=== PATIENT | male | born 1930 | race Hispanic/Latino ===

== ENCOUNTER 2018-04-13 18:56 | Observation (INO) | payer OTHER, BC ==
--- OUTSIDE RECORDS SUMMARY | 2018-04-13 18:59 | XMS REPORT | Clinical Summary ---
:1930 Author Organization [facility] Address [address] [place] [address] Care Team Providers Name Role Phone Asked, No Pcp Primary Care Provider Unavailable Allergies No Known Allergies Current Medications Prescription Sig. Disp. Refills Start Date End Date Status omeprazole 40 mg daily. 07/18/2017 Active (PriLOSEC) 40 MG capsule eszopiclone 2 mg nightly. 08/28/2017 Active (LUNESTA) 2 MG tablet amLODIPine 5 mg every 07/07/2017 Active (NORVASC) 5 mg morning. tablet psyllium seed, with Take by mouth Active dextrose, (FIBER nightly. ORAL) tamsulosin (FLOMAX) Take 0.4 mg Active 0.4 mg capsule by mouth daily. aspirin (ECOTRIN) Take 1 tablet 90 tablet 4 01/15/2018 Active 81 MG enteric (81 mg total) coated tablet by mouth daily. valsartan-hydrochlo 1 tablet 07/07/2017 12/12/2017 Discontinued rothiazide every (DIOVAN-HCT) morning. 80-12.5 mg per tablet aspirin (ECOTRIN) Take 325 mg 01/15/2018 Discontinued 325 MG enteric by mouth coated tablet daily. tamsulosin (FLOMAX) Take 1 30 capsule 0 12/12/2017 01/11/2018 0.4 mg capsule (0.4 capsule,extended mg total) by release 24hr mouth daily for 30 days. clopidogrel Take 1 tablet 30 tablet 0 12/12/2017 01/11/2018 (PLAVIX) 75 mg (75 mg total) tablet by mouth daily for 30 days. clopidogrel Take 75 mg by 01/15/2018 Discontinued (PLAVIX) 75 mg mouth daily. tablet Active Problems Problem Noted Date Nonrheumatic aortic valve stenosis 10/09/2017 Overview: Added automatically from request for surgery [id number] Encounters Date Type Specialty Care Team Description 01/15/2018 Office Visit Cardiology Stepan Wilde Aortic valve stenosis, etiology of cardiac valve disease unspecified (Primary Dx); MD Elliot Status post transcatheter aortic valve replacement (TAVR) using bioprosthesis 12/12/2017 Orders Only Cardiology Lucie, Aortic valve disorder (Primary Dx); SARAH Goodman S/P TAVR (transcatheter aortic valve replacement) 12/12/2017 Telephone Cardiovascular Nataly Elder RN 12/10/2017 Hospital Encounter Cardiovascular Narendra Danielson Nonrheumatic aortic valve stenosis; - MD Yandel Aortic valve stenosis, etiology of cardiac valve disease unspecified 12/12/2017 12/10/2017 Anesthesia Event Cardiothoracic Jaime, Surgery Wendy Serrano MD 12/10/2017 Procedure Pass Cardiothoracic Surgery 12/10/2017 Surgery Cardiothoracic Jagjit Narendra TRANSCATHETER Surgery MD Yandel AORTIC VALVE REPLACEMENT, COMMERCIAL 12/05/2017 Hospital Encounter Radiology Narendra Danielson Nonrheumatic aortic valve stenosis; MD Yandel Pre-op evaluation 12/05/2017 Pre-Admit Testing Pre-Admission Narendra Danielson Nonrheumatic aortic valve stenosis; Appointment Testing MD Yandel Pre-op evaluation; Abnormal finding of blood chemistry ; Protein-calorie malnutrition, unspecified severity ; Abnormal coagulation profile 12/05/2017 Documentation Cardiovascular Nataly Elder RN KCCQ and Frailty Test 11/26/2017 Orders Only Nataly Gasca RN Nonrheumatic aortic valve stenosis (Primary Dx); Pre-op evaluation; Abnormal finding of blood chemistry ; Protein-calorie malnutrition, unspecified severity ; Abnormal coagulation profile 10/09/2017 Orders Only Nataly Gasca RN Nonrheumatic aortic valve stenosis (Primary Dx) 10/06/2017 Hospital Encounter Procedural Jaclyn Tate, Aortic valve stenosis, etiology of cardiac valve disease unspecified; Cardiology Coronary artery disease with angina pectoris, unspecified vessel or lesion type, unspecified whether tetlin or transplanted heart 10/06/2017 Procedure Pass Procedural Cardiology 10/06/2017 Surgery Procedural AttJaclyn biswas, Cv left heart cath Cardiology w lv gram cors [74065 (CPT)] 09/25/2017 Office Visit Cardiovascular Narendra Danielson Nonrheumatic aortic MD Yandel valve stenosis (Primary Dx) 09/25/2017 Hospital Encounter Pulmonology Stepan Wilde Aortic valve stenosis, etiology of cardiac valve disease unspecified; MD Elliot Carotid bruit, unspecified laterality; SOB (shortness of breath) 09/25/2017 Hospital Encounter Procedural Stepan Wilde Aortic valve Cardiology MD Elliot stenosis, etiology of cardiac valve disease unspecified 09/25/2017 Hospital Encounter Procedural Stepan Wilde Aortic valve stenosis, etiology of cardiac valve disease unspecified; Cardiology MD Elliot Carotid bruit, unspecified laterality; SOB (shortness of breath) 09/25/2017 Ancillary Orders Cardiology Stepan Wilde Aortic valve stenosis , etiology of cardiac valve disease unspecified; MD Elliot Carotid bruit, unspecified laterality; SOB (shortness of breath) 09/19/2017 Orders Only Cardiology Corby Wong, Aortic valve stenosis, etiology of cardiac valve disease unspecified (Primary Dx); RN Carotid bruit, unspecified laterality; SOB (shortness of breath) 09/19/2017 Documentation Cardiology Ros Quiñonez RN 09/19/2017 Orders Only Cardiology Khang Aortic norris Sommer RN stenosis, etiology of cardiac valve disease unspecified (Primary Dx) 09/18/2017 Office Visit Cardiology Stepan Wilde Essential hypertension ( Primary Dx); MD Elliot Coronary artery disease involving tetlin coronary artery of tetlin heart with angina pectoris; Aortic valve stenosis, etiology of cardiac valve disease unspecified 08/07/2017 Hospital Encounter Procedural Jaclyn Tate SOB (shortness of breath); Cardiology Aortic valve stenosis with insufficiency, etiology of cardiac valve disease unspecified 08/05/2017 Transcribe Orders Procedural Jaclyn Tate SOB (shortness of breath) (Primary Dx); Cardiology Aortic valve stenosis with insufficiency, etiology of cardiac valve disease unspecified after 04/12/2017 Family History Medical History Relation Name Comments Heart disease Brother Heart disease Father Hypertension Father Alzheimer's disease Mother Other Sister 'brain stem problems' Relation Name Status Comments Brother (Age 58) Father (Age 68) Mother (Age 93) Sister (Age 60) Social History Tobacco Use Types Packs/Day Years Used Date Former Smoker 3 35 Quit: 1973 Smokeless Tobacco: Never Used Alcohol Use Drinks/Week oz/Week Comments Yes ocassional Sex Assigned at Date Recorded Not on file Last Filed Vital Signs Vital Sign Reading Time Taken Blood Pressure 174/86 01/15/2018 1:40 PM CDT Pulse 61 01/15/2018 1:35 PM CDT Temperature 36.5 C (97.7 F) 12/12/2017 7:46 AM CDT Respiratory Rate 14 12/12/2017 7:46 AM CDT Oxygen Saturation 99% 01/15/2018 9:36 AM CDT Inhaled Oxygen Concentration - - Weight 62.1 kg (137 lb) 01/15/2018 1:33 PM CDT Height 162.6 cm (5' 4") 01/15/2018 1:33 PM CDT Body Mass Index 23.52 01/15/2018 1:33 PM CDT Plan of Treatment Date Type Specialty Care Team Description 01/19/2019 Office Visit Cardiology Stepan Wilde MD [address] [address] Health Maintenance Due Date Last Done Comments SHINGRIX VACCINE (#1) 12/16/1981 ZOSTER VACCINE 1991 PNEUMOCOCCAL POLYSACCHARIDE VACCINE AGE 65 AND OVER 12/16/1996 PNEUMOCOCCAL-13 12/16/1996 INFLUENZA VACCINE 01/28/2018 Implants Implanted Type Area Oil Sprayer Device Expiration Model / Identifier Date Serial / Lot 7fr X 58cm Isoflex Optim Passive-Fixation Lead, Bipolar, Straight, Is-1 - [id number] Cardiac Pacing N/A: 08/27/2020 / Implanted: 12/10/2017 (Quantity not on file) Leads or N/A [id number] / Electrodes or [id number] Accessories Evolut Pro 29'Valve - [id number] - [id number] Cardiovascular N/A: MEDTRONIC 10/06/2019 EVOLUTPRO 29 US / Implanted: Qty: 1 on 12/10/2017 by Narendra Danielson MD Implants N/A COREVALVE [id number] / [id number] System Clsr Sut Meditd 6fr Perclose Proglide - [id number] Surgical N/A: GARCIA [id number] / Implanted: 12/10/2017 (Quantity not on file) Implants; N/A VASCULAR / Expanders; DEVICES Extenders; Surgical Wires Catheter Ptv True Dilat 110x4.5cm 24mm - [id number] Surgical N/A: BARD [id number] / Implanted: Qty: 2 on 12/10/2017 by Narendra Danielson MD Implants; N/A PERIPHERAL / Expanders; VASCULAR Extenders; Surgical Wires System Clsr Sut Meditd 6fr Perclose Proglide - [id number] Surgical N/A: GARCIA [id number] / Implanted: 12/10/2017 (Quantity not on file) Implants; N/A VASCULAR / Expanders; DEVICES Extenders; Surgical Wires [place] Perph Vasclr Ptfe 1.2x10cm 1.65mm - [id number] Vascular Graft N/A: BARD 09/24/2022 [id number] / Implanted: 12/10/2017 (Quantity not on file) N/A PERIPHERAL / VASCULAR [id number] Catheter Retail Account Specialist Van 5fr 75cm 4x40mm 0.035in H-Pres [place] [id number] / Implanted: Qty: 1 on 12/10/2017 by Narendra Danielson MD SCIENTIFIC/ PER / IPHERAL VASCULAR ([email or web address]) Procedures Procedure Name Priority Date/Time Associated Diagnosis Comments COMPREHENSIVE Routine 01/15/2018 2:10 Status post Results for this METABOLIC PANEL PM CDT transcatheter aortic procedure are in valve replacement the results (TAVR) using section. bioprosthesis CBC WITH PLATELET AND Routine 01/15/2018 2:10 Status post Results for this DIFFERENTIAL PM CDT transcatheter aortic procedure are in valve replacement the results (TAVR) using section. bioprosthesis ECG 12-LEAD Routine 01/15/2018 1:42 Aortic valve Results for this PM CDT stenosis, etiology of procedure are in cardiac valve disease the results unspecified section. ECHOCARDIOGRAM 2D Routine 01/15/2018 10:00 Aortic valve disorder Results for this COMPLETE W MMODE AM CDT S/P TAVR procedure are in SPECTRAL COLOR DOPPLER (transcatheter aortic the results (30701) valve replacement) section. HC COMPLETE BLD COUNT Routine 12/12/2017 4:30 Results for this W/AUTO DIFF AM CDT procedure are in the results section. ZZESTIMATED GFR Routine 12/12/2017 4:00 Results for this AM CDT procedure are in the results section. LIPID PANEL Routine 12/12/2017 4:00 Results for this AM CDT procedure are in the results section. BASIC METABOLIC PANEL Routine 12/12/2017 4:00 Results for this AM CDT procedure are in the results section. US RENAL Routine 12/11/2017 10:10 Results for this PM CDT procedure are in the results section. XR CHEST 1 VW PORTABLE Routine 12/11/2017 5:30 Results for this PM CDT procedure are in the results section. ECG PRE/POST OP Routine 12/11/2017 10:20 Results for this AM CDT procedure are in the results section. ECHOCARDIOGRAM 2D Routine 12/11/2017 9:35 Results for this COMPLETE W MMODE AM CDT procedure are in SPECTRAL COLOR DOPPLER the results (90263) section. ZZESTIMATED GFR Routine 12/11/2017 5:32 Results for this AM CDT procedure are in the results section. LIPID PANEL Routine 12/11/2017 5:32 Results for this AM CDT procedure are in the results section. HC COMPLETE BLD COUNT Routine 12/11/2017 5:32 Results for this W/AUTO DIFF AM CDT procedure are in the results section. BASIC METABOLIC PANEL Routine 12/11/2017 5:32 Results for this AM CDT procedure are in the results section. ECG PRE/POST OP Routine 12/10/2017 8:06 Results for this PM CDT procedure are in the results section. ECHOCARDIOGRAM 2D Routine 12/10/2017 4:31 Aortic valve Results for this COMPLETE W MMODE PM CDT stenosis, etiology of procedure are in SPECTRAL COLOR DOPPLER cardiac valve disease the results (30496) unspecified section. CV AORTIC Routine 12/10/2017 3:35 Nonrheumatic aortic Results for this VALVULOPLASTY PM CDT valve stenosis procedure are in the results section. CV AORTOGRAM ABDOMINAL Routine 12/10/2017 3:35 Nonrheumatic aortic Results for this AORTA PM CDT valve stenosis procedure are in the results section. CV LEFT HEART CATH Routine 12/10/2017 3:35 Nonrheumatic aortic Results for this PM CDT valve stenosis procedure are in the results section. CV ANGIOGRAM THORACIC Routine 12/10/2017 3:35 Nonrheumatic aortic Results for this AORTA PM CDT valve stenosis procedure are in the results section. EP TEMPORARY LEAD Routine 12/10/2017 3:35 Nonrheumatic aortic Results for this INSERTION PM CDT valve stenosis procedure are in the results section. CV TAVR FOR CARDIOLOGY Routine 12/10/2017 3:35 Nonrheumatic aortic Results for this PM CDT valve stenosis procedure are in the results section. ARTERIAL BLOOD GAS, STAT 12/10/2017 2:25 Results for this CORRECTED PM CDT procedure are in the results section. SODIUM LEVEL, SYRINGE STAT 12/10/2017 2:25 Results for this PM CDT procedure are in the results section. IONIZED CALCIUM, STAT 12/10/2017 2:25 Results for this ARTERIAL PM CDT procedure are in the results section. POTASSIUM, SYRINGE STAT 12/10/2017 2:25 Results for this PM CDT procedure are in the results section. HEMOGLOBIN, SYRINGE STAT 12/10/2017 2:25 Results for this PM CDT procedure are in the results section. GLUCOSE LEVEL, SYRINGE STAT 12/10/2017 2:25 Results for this PM CDT procedure are in the results section. XR CHEST 2 VW Routine 12/05/2017 12:01 Nonrheumatic aortic Results for this PM CDT valve stenosis procedure are in Pre-op evaluation the results section. URINALYSIS SCREEN AND Routine 12/05/2017 11:10 Nonrheumatic aortic Results for this MICROSCOPY, WITH AM CDT valve stenosis procedure are in REFLEX TO CULTURE Pre-op evaluation the results section. B NATRIURETIC PEPTIDE Routine 12/05/2017 11:10 Nonrheumatic aortic Results for this AM CDT valve stenosis procedure are in Pre-op evaluation the results section. URINE CULTURE Routine 12/05/2017 11:10 Results for this AM CDT procedure are in the results section. PREPARE RBC Routine 12/05/2017 10:51 Results for this AM CDT procedure are in the results section. ZZESTIMATED GFR Routine 12/05/2017 10:51 Results for this AM CDT procedure are in the results section. TYPE AND SCREEN Routine 12/05/2017 10:51 Nonrheumatic aortic Results for this AM CDT valve stenosis procedure are in Pre-op evaluation the results section. HEMOGLOBIN A1C Routine 12/05/2017 10:51 Abnormal finding of Results for this AM CDT blood chemistry procedure are in Nonrheumatic aortic the results valve stenosis section. Pre-op evaluation PARTIAL THROMBOPLASTIN Routine 12/05/2017 10:51 Abnormal coagulation Results for this TIME (PTT) AM CDT profile procedure are in Nonrheumatic aortic the results valve stenosis section. Pre-op evaluation PROTHROMBIN TIME WITH Routine 12/05/2017 10:51 Nonrheumatic aortic Results for this INR AM CDT valve stenosis procedure are in Pre-op evaluation the results section. COMPREHENSIVE Routine 12/05/2017 10:51 Nonrheumatic aortic Results for this METABOLIC PANEL AM CDT valve stenosis procedure are in Pre-op evaluation the results section. HC COMPLETE BLD COUNT Routine 12/05/2017 10:51 Nonrheumatic aortic Results for this W/AUTO DIFF AM CDT valve stenosis procedure are in Pre-op evaluation the results section. VITAMIN B12 LEVEL Routine 12/05/2017 10:38 Protein-calorie Results for this AM CDT malnutrition, procedure are in unspecified severity the results Nonrheumatic aortic section. valve stenosis Pre-op evaluation TOTAL IRON BINDING Routine 12/05/2017 10:38 Abnormal finding of Results for this CAPACITY AM CDT blood chemistry procedure are in Nonrheumatic aortic the results valve stenosis section. Pre-op evaluation LIPID PANEL Routine 12/05/2017 10:38 Abnormal finding of Results for this AM CDT blood chemistry procedure are in Nonrheumatic aortic the results valve stenosis section. Pre-op evaluation FOLATE LEVEL Routine 12/05/2017 10:38 Protein-calorie Results for this AM CDT malnutrition, procedure are in unspecified severity the results Nonrheumatic aortic section. valve stenosis Pre-op evaluation FERRITIN LEVEL Routine 12/05/2017 10:38 Abnormal finding of Results for this AM CDT blood chemistry procedure are in Nonrheumatic aortic the results valve stenosis section. Pre-op evaluation CV LEFT HEART CATH LV Routine 10/06/2017 5:42 Aortic valve Results for this GRAM WITH CORS PM CDT stenosis, etiology of procedure are in cardiac valve disease the results unspecified section. Coronary artery disease with angina pectoris, unspecified vessel or lesion type, unspecified whether tetlin or transplanted heart HC COMPLETE BLD COUNT STAT 10/06/2017 1:00 Results for this W/AUTO DIFF PM CDT procedure are in the results section. ECG 12-LEAD STAT 10/06/2017 12:41 Results for this PM CDT procedure are in the results section. ZZESTIMATED GFR STAT 10/06/2017 12:34 Results for this PM CDT procedure are in the results section. BASIC METABOLIC PANEL STAT 10/06/2017 12:34 Results for this PM CDT procedure are in the results section. CV CTA TAVR WORKUP Routine 09/25/2017 1:42 Aortic valve Results for this (CTA CORONARY,CTA PM CDT stenosis, etiology of procedure are in THORACIC AORTA,CTA cardiac valve disease the results ABDOMEN PELVIS) W unspecified section. CONTRAST ESTIMATED GFR Routine 09/25/2017 1:06 Results for this PM CDT procedure are in the results section. POC CREATININE Routine 09/25/2017 1:06 Results for this PM CDT procedure are in the results section. US CAROTID DUPLEX Routine 09/25/2017 11:08 Aortic valve Results for this BILATERAL AM CDT stenosis, etiology of procedure are in cardiac valve disease the results unspecified section. Carotid bruit, unspecified laterality SOB (shortness of breath) ECHOCARDIOGRAM 2D Routine 09/18/2017 4:26 Essential Results for this COMPLETE W MMODE PM CDT hypertension procedure are in SPECTRAL COLOR DOPPLER Coronary artery the results (65754) disease involving section. tetlin coronary artery of tetlin heart with angina pectoris Aortic valve stenosis, etiology of cardiac valve disease unspecified ECG 12-LEAD Routine 09/18/2017 2:39 Essential Results for this PM CDT hypertension procedure are in the results section. 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 etiology of cardiac valve disease unspecified POC HEMATOCRIT Routine 08/07/2017 12:51 Results for this PM COMPONENT ASSEMBLER SUPERVISOR procedure are in the results section. ZZESTIMATED GFR Routine 08/07/2017 12:51 Results for this PM COMPONENT ASSEMBLER SUPERVISOR procedure are in the results section. CREATININE LEVEL Routine 08/07/2017 12:51 Results for this PM COMPONENT ASSEMBLER SUPERVISOR procedure are in the results section. after 04/12/2017 Results CBC with platelet and differential (01/15/2018 2:10 PM)Only the most recent of5 resultswithin the time period is included. WBC 6.7 3.8 - 10.8 Thousand/uL [facility] [place] RBC 4.52 4.20 - 5.80 Million/uL [facility] [place] HGB 13.7 13.2 - 17.1 g/dL [facility] [place] HCT 39.8 38.5 - 50.0 % [facility] [place] MCV 88.1 80.0 - 100.0 fL [facility] [place] MCH 30.3 27.0 - 33.0 pg [facility] [place] MCHC 34.4 32.0 - 36.0 g/dL [facility] [place] RDW 13.2 11.0 - 15.0 % [facility] [place] Platelet count 222 140 - 400 Thousand/uL [facility] [place] MPV 10.9 7.5 - 12.5 fL [facility] [place] Neutrophils, absolute 4,449 1,500 - 7,800 cells/uL [facility] [place] Lymphocytes, absolute 1,441 850 - 3,900 cells/uL [facility] [place] Monocytes, absolute 509 200 - 950 cells/uL [facility] [place] Eosinophils, absolute 221 15 - 500 cells/uL [facility] [place] Basophils, absolute 80 0 - 200 cells/uL [facility] [place] Neutrophils 66.4 % [facility] [place] Lymphocytes 21.5 % [facility] [place] Monocytes 7.6 % [facility] [place] Eosinophils 3.3 % [facility] [place] Basophils + RC 1.2 % [facility] [place] Specimen Blood Narrative Performed At FASTING:NO [facility] FASTING: NO Other Results Text Performing Organization Information: Site ID: [id number] Name: [facility] Address: [address] [place] [id number] Director: Isabela Loredo Performing Organization Address City/State/Zipcode Phone Number [employer] [place] [phone] Comprehensive metabolic panel (01/15/2018 2:10 PM)Only the most recent of2 resultswithin the time period is included. Glucose 78 65 - 139 mg/dL [facility] Comment: [place] Non-fasting reference interval BUN, whole blood 12 7 - 25 mg/dL Monitoring Division [facility] Creatinine 0.89 0.70 - 1.11 [facility] Comment: mg/dL [place] For patients >49 years of age, the reference limit for Creatinine is approximately 13% higher for people identified as -Citizen Of [place]. EGFR Non-Afr. Citizen Of [place] 77 > OR=60 [facility] mL/min/1.73m2 [place] EGFR 90 > OR=60 [facility] mL/min/1.73m2 [place] BUN/creatinine ratio NOT APPLICABLE 6 - 22 (calc) [facility] [place] Sodium 136 135 - 146 mmol/L [facility] [place] Potassium 4.0 3.5 - 5.3 mmol/L [facility] [place] Chloride 103 98 - 110 mmol/L [facility] [place] CO2 28 20 - 31 mmol/L [facility] Calcium 9.3 8.6 - 10.3 mg/dL [facility] [place] Protein 7.2 6.1 - 8.1 g/dL [facility] [place] Albumin, S 4.1 3.6 - 5.1 g/dL [facility] [place] Globulin, total 3.1 1.9 - 3.7 g/dL [facility] (calc) [place] Albumin/globulin ratio 1.3 1.0 - 2.5 (calc) [facility] [place] Total bilirubin 0.4 0.2 - 1.2 mg/dL [facility] [place] Alkaline phosphatase 85 40 - 115 U/L [facility] [place] AST 17 10 - 35 U/L [facility] ALT 13 9 - 46 U/L [facility] [place] Specimen Blood Narrative Performed At FASTING:NO [facility] FASTING: NO Other Results Text Performing Organization Information: Site ID: [id number] Name: [facility] Address: [address] [place] [id number] Director: Isabela Loredo Performing Organization Address [facility] Phone Number [facility] Monitoring Division [address] [address] ECG 12 lead (01/15/2018 1:42 PM)Only the most recent of3 resultswithin the time period is included. Ventricular rate 59 [facility] MUSE Atrial rate 59 [facility] MUSE CO interval 174 [facility]USE QRSD interval 90 [facility] QT interval 428 [facility] QTC interval 423 [facility] P axis 1 54 [facility] QRS axis 1 -14 [facility] T wave axis 47 H MUSE EKG impression Sinus bradycardia with premature atrial complexes-RSR' or QR pattern in V1 suggests right ventricular conduction delay-Borderline ECG-In automated comparison with ECG of 11-DEC-2017 10:20,-premature atr [facility] MUSE ial complexes are now present- Performing Organization Address [facility] Hospitalcode Phone Number [facility] [employer] [address] [place] [address] Echocardiogram complete w contrast and 3D if needed (01/15/2018 10:00 AM) Narrative Performed At [facility] Echocardiography Report Pat.Name:Kurtis HARDY.ID:[id number] .Date: 01/15/2018 Refer.MD:STEPAN WILDE MD Exam Time: 9:29:00 QIANtlyla Type:Routine Echo Height:64inWeight: 135lb BSA: 1.66 m2 DOBAge:1930,87Y Sex: MALEBP:169/77 HR:60 bpm Sonogrphr: Kumuthavally Veerasamy, RDCS, RVS Pat. Stat.:OutpatientRoom:[facility] TapeVol: MDCA, ICD - 9: I35.9 Study Status:Revised Echo Event ID:[id number] Order ID:[id number] Reason for Study:Aortic Valve Disorders, S/P TAVR, Post TAVR Commercial History / Clinical:Valvular Heart Disease; Aortic Stenosis Procedures:2D Echo, Colorflow Doppler, 3D Echo Race: SUMMARY: LV EF is hyperdynamic. Estimated EF is >70%. s/p TAVR with a 29mm Medtronic EvolutPro valve with mild para-valvular regurgitation (2 jets seen on apical 3-chamber view). There is normal prosthetic velocities and gradients Mild mitral and tricuspid reguegitation Diastolic dysfunction Grade II (Moderate): Impaired relaxation with elevated LV filling pressures. Estimated PA systolic pressure is 32 mmHg, assuming a mean RAP of 5 mmHg. FINDINGS: LV: LV size is normal. Concentric left ventricular remodeling. LVEF is hyperdynamic. Overall wall motion is hyperdynamic. EstimatedEF is >70%. RV: RV size is normal. RV systolic function is normal. LA: LA volume is moderately enlarged. RA: RA size is normal. AO: Aortic root diameter is normal. JAIRO: No pericardial effusion. IAS:Interatrial septum is thickened consistent with lipomatous hypertrophy. AV: s/p TAVR with a 29mm Medtronic EvolutPro valve that is well-seatedMild paravalvular aortic regurgitation - 2 jets bestseen on apical 3-chamber view - Normal prosthetic valvevelocity and gradient. Transcatheter AV Doppler velocityindex is 0.8 (normal >0.50). MV: Mild thickening and calcification of mitral leaflets. Mild mitralannular calcification. Mild mitral regurgitation. PV: No structural PV abnormalities noted. Mild pulmonic regurgitation. TV: No structural TV abnormalities noted. Mild tricuspid regurgitation Maurer: Diastolic dysfunction Grade II (Moderate): Impaired relaxationwith elevated LV filling pressures. Other:Estimated PA systolic pressure is 32 mmHg, assuming a mean RAPof 5 mmHg. MEASUREMENTS: 2D Parasternal [place] LVOT 1.9 cmLA Ds4.1 cm LVIDd4.2 cmIndex2.5 cm/m Ao An2.4 cm LVIDs2.2 cmAo Rtd 2.7 cm Index1.6 cm/m LV%fs 47.6 % LV Apes750 g IVSd 1.1 cmLVM Index 88.6 g/m2 LVPWd1 cmRWT0.5 LA Volume LA Vol59.2 trGwddq85.7 ml/m LA Sng Plane LA Area 21.4 cm2 LA Vol69.5 ml Index41.9 ml/m LA LngAx 5.4 cm DOPPLER AV For Flow/AUGIE AV pkVel 170.5 cm/Adam AC/ET 0.2 AV mnVel97.9 cm/Adam TVI33.7 cm AV pkPG 11.6 mmHgAVpkAcRt 3398.9 cm/s2 AV Mean G4.8 mmHgAV WfHc501.3 cm/s2 AV AC 74 msecAV Area2.4 cm2 AV ET344 msec LVOT For Flow LVOT Area2.8 cm2 LVOT SV 79.5 ml TZYWstLvh935.6 cm/sHR54.7 bpm HSYFmtQX99.6 mmHgLVOT CO4.4 l/min LVOTmnPG 3.4 mmHgLVOT CI2.6 l/m/m2 LVOT TVI28.1 cm Signed 01/19/2018 8:21:10 PM Jcalyn Quezada MD Revised Procedure Note Interface, Radiology Results In - 01/19/2018 8:21 PM CDT [facility] Echocardiography Report Pat.Name: JUSTICE HARDY Pat.ID: [id number] St.Date: 01/15/2018 Refer.MD: STEPAN WILDE MD Exam Time: 9:29:00 AM Study Type:Routine Echo Height: 64in Weight: 135lb BSA: 1.66 m2 Age: 7 1930,87Y Sex: MALE BP: 169/77 HR: 60 bpm Sonogrphr: Dee Morales, RDCS, RVS Pat. Stat.:Outpatient Room: [address] Vol: [facility], ICD - 9: I35.9 Study Status:Revised Echo Event ID:[id number] Order ID: [id number] Reason for Study:Aortic Valve Disorders, S/P TAVR, Post TAVR Commercial History / Clinical:Valvular Heart Disease; Aortic Stenosis Procedures:2D Echo, Colorflow Doppler, 3D Echo Race: SUMMARY: LV EF is hyperdynamic. Estimated EF is >70%. s/p TAVR with a 29mm Medtronic EvolutPro valve with mild para-valvular regurgitation (2 jets seen on apical 3-chamber view). There is normal prosthetic velocities and gradients Mild mitral and tricuspid reguegitation Diastolic dysfunction Grade II (Moderate): Impaired relaxation with elevated LV filling pressures. Estimated PA systolic pressure is 32 mmHg, assuming a mean RAP of 5 mmHg. FINDINGS: LV: LV size is normal. Concentric left ventricular remodeling. LV EF is hyperdynamic. Overall wall motion is hyperdynamic. Estimated EF is >70%. RV: RV size is normal. RV systolic function is normal. LA: LA volume is moderately enlarged. RA: RA size is normal. AO: Aortic root diameter is normal. JAIRO: No pericardial effusion. IAS: Interatrial septum is thickened consistent with lipomatous hypertrophy. AV: s/p TAVR with a 29mm Medtronic EvolutPro valve that is well-seated Mild paravalvular aortic regurgitation - 2 jets best seen on apical 3-chamber view - Normal prosthetic valve velocity and gradient. Transcatheter AV Doppler velocity index is 0.8 (normal >0.50). MV: Mild thickening and calcification of mitral leaflets. Mild mitral annular calcification. Mild mitral regurgitation. PV: No structural PV abnormalities noted. Mild pulmonic regurgitation. TV: No structural TV abnormalities noted. Mild tricuspid regurgitation Maurer: Diastolic dysfunction Grade II (Moderate): Impaired relaxation with elevated LV filling pressures. Other: Estimated PA systolic pressure is 32 mmHg, assuming a mean RAP of 5 mmHg. MEASUREMENTS: 2D Parasternal [place] LVOT 1.9 cm LA Ds 4.1 cm LVIDd 4.2 cm Index 2.5 cm/m Ao An 2.4 cm LVIDs 2.2 cm Ao Rtd 2.7 cm Index 1.6 cm/m LV%fs 47.6 % LV Mass 147 g IVSd 1.1 cm LVM Index 88.6 g/m2 LVPWd 1 cm RWT 0.5 LA Volume LA Vol 59.2 ml Index 35.7 ml/m LA Sng Plane LA Area 21.4 cm2 LA Vol 69.5 ml Index 41.9 ml/m LA LngAx 5.4 cm DOPPLER AV For Flow/AUGIE AV pkVel 170.5 cm/s AV AC/ET 0.2 AV mnVel 97.9 cm/s AV TVI 33.7 cm AV pkPG 11.6 mmHg AVpkAcRt 3398.9 cm/s2 AV Mean G 4.8 mmHg AV DeRt 495.3 cm/s2 AV AC 74 msec AV Area 2.4 cm2 AV ET 344 msec LVOT For Flow LVOT Area 2.8 cm2 LVOT SV 79.5 ml LVOTpkVel 162.6 cm/s HR 54.7 bpm LVOTpkPG 10.6 mmHg LVOT CO 4.4 l/min LVOTmnPG 3.4 mmHg LVOT CI 2.6 l/m/m2 LVOT TVI 28.1 cm Signed 01/19/2018 8:21:10 PM Jaclyn Quezada MD Revised Performing Organization Address City/[facility] Hospitalcode Phone Number [facility] [address] [place] [address] Estimated GFR (12/12/2017 4:00 AM)Only the most recent of5 resultswithin the time period is included. GFR Non Af Amer 57 (A) mL/min/1.73 m2 [facility] DEPARTMENT OF PATHOLOGY AND GENOMIC MEDICINE GFR Af Amer 70 mL/min/1.73 m2 [facility] DEPARTMENT OF Comment: PATHOLOGY AND GENOMIC Chronic kidney disease: <60 mL/min/1.73m2 MEDICINE Kidney failure: <15 mL/min/1.73m2 The estimated GFR is calculated from the IDMS-traceable Modification of Diet in Renal Disease Equation. The accuracy of the calculation is poor when the creatinine is normal. Calculated values >90 mL/min/1.73m2 are not reported. This equation has not been validated in children (<18 years), women, the elderly (>70 years), or ethnic groups other than Caucasians and Americans. Specimen Plasma specimen Performing Organization Address City/[facility] Hospitalcode Phone Number [facility] DEPARTMENT OF PATHOLOGY AND [address] [place] [address] [employer] MEDICINE Lipid panel (12/12/2017 4:00 AM)Only the most recent of3 resultswithin the time period is included. Cholesterol 177 <200 mg/dL [facility] DEPARTMENT OF PATHOLOGY AND GENOMIC MEDICINE Triglycerides 77 <150 mg/dL [facility] DEPARTMENT OF PATHOLOGY AND GENOMIC MEDICINE HDL cholesterol 50 >40 mg/dL [facility] DEPARTMENT OF PATHOLOGY AND GENOMIC MEDICINE LDL cholesterol 118 (H)Comment: Result <100 mg/dL [facility] DEPARTMENT OF obtained by direct LDL PATHOLOGY AND GENOMIC measurement MEDICINE Lipid panel interpretation SeeBelow [facility] DEPARTMENT OF Comment: PATHOLOGY AND GENOMIC Total Cholesterol (mg/dL) MEDICINE <200 Desirable 885-156Aytlspyloi-tkhr >=240High Triglycerides (mg/dL) <150 Normal 644-597Ifhvhjcxov-syjd 200-499High >=500Very high HDL Cholesterol (mg/dL) <40Low (male) <40Low (female) LDL Cholesterol (mg/dL) <100 Optimal 100-129Near or above optimal 328-334Yegqnjhbnu-ijlj 160-189High >=190Very high Risk Catergories that modify LDL goals. Risk CatergoriesLDL goal (mg/dL) CHD and CHD risk equivalent<100 (10-year risk >20%) Multiple (2+) risk factors <130 (10-year risk=<20%) 0-1 risk factors <160 (<10-year risk) Defining levels of lipids in metabolic syndrome Triglycerides>=150 mg/dL HDL Cholesterol Men<40 mg/dL Women<40 mg/dL Non-HDL cholesterol is a second target for therapy in persons with high triglycerides (>=200 mg/dL) Specimen Plasma specimen Performing Organization Address City/State/Zipcode Phone Number [facility] DEPARTMENT OF PATHOLOGY [facility] [address] [place] [address] GENOMIC MEDICINE Basic metabolic panel (12/12/2017 4:00 AM)Only the most recent of3 resultswithin the time period is included. Sodium 133 (L) 135 - 148 mEq/L [facility] DEPARTMENT OF PATHOLOGY AND GENOMIC MEDICINE Potassium 3.6 3.5 - 5.0 mEq/L [facility] DEPARTMENT OF PATHOLOGY AND GENOMIC MEDICINE Chloride 99 98 - 112 mEq/L [facility] DEPARTMENT OF PATHOLOGY AND GENOMIC MEDICINE CO2 21 (L) 24 - 31 mEq/L [facility] DEPARTMENT OF PATHOLOGY AND GENOMIC MEDICINE Anion gap 13@ANIO 7 - 15 mEq/L [facility] DEPARTMENT OF PATHOLOGY AND GENOMIC MEDICINE BUN 18 8 - 23 mg/dL [facility] DEPARTMENT OF PATHOLOGY AND GENOMIC MEDICINE Creatinine 1.2 0.7 - 1.2 mg/dL [facility] DEPARTMENT OF PATHOLOGY AND GENOMIC MEDICINE Glucose 120 (H) 65 - 99 mg/dL [facility] DEPARTMENT OF PATHOLOGY AND GENOMIC MEDICINE Calcium 9.1 8.8 - 10.2 mg/dL [facility] DEPARTMENT OF PATHOLOGY AND GENOMIC MEDICINE Specimen Plasma specimen Performing Organization Address City/[facility]/Zipcode Phone Number [facility] DEPARTMENT OF PATHOLOGY AND [address] [place] [address] GENOMIC MEDICINE US Renal (12/11/2017 10:10 PM) Narrative Performed At EXAMINATION:US RENAL [facility] CLINICAL HISTORY:Examine for possible masses COMPARISON:None. TECHNIQUE:Ultrasound evaluation of the kidneys and bladder. IMPRESSION: 1.The right kidney measures 9.4 x 3.9 x 4.6 cm.The left kidney measures 11.2 x 4.1 x 5.1 cm.Normal renal cortical echogenicity. 2.A right renal cyst is 6.2 cm. A smaller right renal cyst is 4.0 cm. Both contain septations. The larger cyst contains some irregular septations. Because of this, I suggest further evaluation with CT with contrast and renal focus. A left renal cyst is 5.8 x 3.4. It contains a septation. A small left renal cyst is also seen. 3.The bladder is not distended. [facility]-[id number] Procedure Note Interface, Radiology Results Incoming - 12/11/2017 10:35 PM CDT EXAMINATION: US RENAL CLINICAL HISTORY: Examine for possible masses COMPARISON: None. TECHNIQUE: Ultrasound evaluation of the kidneys and bladder. IMPRESSION: 1. The right kidney measures 9.4 x 3.9 x 4.6 cm. The left kidney measures 11.2 x 4.1 x 5.1 cm. Normal renal cortical echogenicity. 2. A right renal cyst is 6.2 cm. A smaller right renal cyst is 4.0 cm. Both contain septations. The larger cyst contains some irregular septations. Because of this, I suggest further evaluation with CT with contrast and renal focus. A left renal cyst is 5.8 x 3.4. It contains a septation. A small left renal cyst is also seen. 3. The bladder is not distended. [facility]-[id number] Performing Organization Address City/[facility]/Zipcode Phone Number [facility] [address] [place] [address] XR Chest 1 Vw Portable (12/11/2017 5:30 PM) Narrative Performed At EXAMINATION:XR CHEST 1 VW PORTABLE [facility] CLINICAL HISTORY:Pleural Effusions COMPARISON:December 05, 2017 IMPRESSION: 1.Prior sternotomy. Heart size within normal limits. 2.No infiltrates or effusions are seen. The vessels are not congested. 3.There has been no change since the prior study. [facility]-[id number] Procedure Note Interface, Radiology Results Incoming - 12/11/2017 6:05 PM CDT EXAMINATION: XR CHEST 1 VW PORTABLE CLINICAL HISTORY: Pleural Effusions COMPARISON: December 05, 2017 IMPRESSION: 1. Prior sternotomy. Heart size within normal limits. 2. No infiltrates or effusions are seen. The vessels are not congested. 3. There has been no change since the prior study. [id number] Performing Organization Address [facility] Hospitalcomo Phone Number [facility] [address] [place] [address] ECG Pre/Post Op (every AM for 3 days) (12/11/2017 10:20 AM)Only the most recent of2 resultswithin the time period is included. Ventricular rate 64 [facility] MUSE Atrial rate 64 [facility] MUSE CO interval 178 [facility] MUSE QRSD interval 88 [facility] M[facility] QT interval 402 [facility] QTC interval 414 [facility] MUSE P axis 1 37 [facility]USE QRS axis 1 -22 [facility] MUSE T wave axis 34 [facility] EKG impression Normal sinus rhythm-RSR' or QR pattern in V1 suggests right ventricular conduction delay-Otherwise normal ECG-In automated comparison with ECG of 10-DEC-2017 20:06,-No significant change was found-Elect [facility] MUSE ronically Signed By Jose GARCIA, Supriya ([id number]) on 12/12/2017 1:27:55 PM Performing Organization Address [facility] Phone Number [facility] [address] [place] [address] Echocardiogram complete w contrast and 3D if needed (12/11/2017 9:35 AM) Narrative Performed At [facility] Echocardiography Report [address]Name:Kurtis HARDY.ID:[id number] .Date: 12/11/2017 Refer.MD:NARENDRA DANIELSON MD Exam Time: 10:16:00 AM Study Type:Routine Echo Height:64inWeight: 132lb BSA: 1.64 m2 DOBAge:1930,86Y Sex: MALESonogrphr: Sabrina Pedersen, [facility] Pat. Stat.:Inpatient Room:D 905 Study Status:Final Echo Event ID:[id number] Order ID:[id number] Reason for Study:Post TAVR Commercial History / Clinical:Valvular Heart Disease; Aortic Stenosis Procedures:2D Echo, Colorflow Doppler, 3D Echo Race:C SUMMARY: LV EF is hyperdynamic. Estimated EF is >70%. s/p TAVR with a 29mm Medtronic EvolutPro valve that is well-seated in the aortic position. FINDINGS: LV: LV size is normal. There is mild concentric LV hypertrophy. LVEF is hyperdynamic with cavity obliteration. Overall wallmotion is hyperdynamic. Estimated EF is >70%. RV: RV size is normal. RV systolic function is normal. LA: LA volume is severely enlarged. RA: RA size is normal. AO: Aortic root diameter is normal. JAIRO: No pericardial effusion. IAS:Interatrial septum is thickened consistent with lipomatous hypertrophy. AV: s/p TAVR with a 29mm Medtronic EvolutPro valve that is well-seatedin the aortic position. Mild paravalvular regurgitation.Normal prosthetic valve velocity and gradient.Transcatheter AV Doppler velocity index is 0.64 (normal>0.50). MV: Mild thickening and calcification of mitral leaflets. A traceof mitral regurgitation. PV: No structural PV abnormalities noted. Mild pulmonic regurgitation. TV: No structural TV abnormalities noted. Mild tricuspid regurgitation Maurer: Diastolic dysfunction Grade II (Moderate): Impaired relaxationwith elevated LV filling pressures. Other:Insufficient TR jet to estimate PA systolic pressure. MEASUREMENTS: 2D Parasternal [place] LVOT 2 cmLVPWd1.2 cm LVIDd4.5 cmIndex2.8 cm/m LV Zeit025.9 g(122-174) LVIDs2.7 cmLVM Cmoib513.6 g/m2 LV%fs 41.3 % RWT0.5 IVSd 1.2 cm LA Sng Plane LA Area 23.3 cm2(8.8-23.4) LA Vol82.1 ml Index50.1 ml/m LA LngAx 5.5 cm DOPPLER AV For Flow/AUGIE AV pkVel 243.3 cm/s (100-170) AV AC/ET 0.3 AV mnVel 148.5 cm/Adam TVI40.9 cm AV pkPG 23.7 mmHgAVpkAcRt 6675.2 cm/s2 AV Mean G 11.4 mmHgAV EuSp082.5 cm/s2 AV AC 75 msec (83-118) AV Area2 cm2(3-5) AV ET275 msec LVOT For Flow LVOT Area3.1 cm2 LVOT SV 82.2 ml WOLVpaLps497.2 cm/sHR65.8 bpm LVOTpkPG 7.9 mmHgLVOT CO5.4 l/min LVOTmnPG 3.8 mmHgLVOT CI3.3 l/m/m2 LVOT TVI26.2 cm Signed 12/11/2017 11:42 AM Gavino Magdaleno M.D. Procedure Note Interface, Radiology Results In - 12/11/2017 11:45 AM CDT Echocardiography Report [address] [address], [place] [id number] Pat.Name: JUSTICE HARDY.ID: [id number] .Date: 12/11/2017 Refer.MD: NARENDRA DANIELSON MD Exam Time: 10:16:00 AM Study Type:Routine Echo Height: 64in Weight: 132lb BSA: 1.64 m2 Age: 7 1930,86Y Sex: MALE Sonogrphr: Sabrina Pedersen [facility] Pat. Stat.:Inpatient Room: D 905 Study Status:Final Echo Event ID:[id number] Order ID: [id number] Reason for Study:Post TAVR Commercial History / Clinical:Valvular Heart Disease; Aortic Stenosis Procedures:2D Echo, Colorflow Doppler, 3D Echo Race: C SUMMARY: LV EF is hyperdynamic. Estimated EF is >70%. s/p TAVR with a 29mm Medtronic EvolutPro valve that is well-seated in the aortic position. FINDINGS: LV: LV size is normal. There is mild concentric LV hypertrophy. LV EF is hyperdynamic with cavity obliteration. Overall wall motion is hyperdynamic. Estimated EF is >70%. RV: RV size is normal. RV systolic function is normal. LA: LA volume is severely enlarged. RA: RA size is normal. AO: Aortic root diameter is normal. JAIRO: No pericardial effusion. IAS: Interatrial septum is thickened consistent with lipomatous hypertrophy. AV: s/p TAVR with a 29mm Medtronic EvolutPro valve that is well-seated in the aortic position. Mild paravalvular regurgitation. Normal prosthetic valve velocity and gradient. Transcatheter AV Doppler velocity index is 0.64 (normal >0.50). MV: Mild thickening and calcification of mitral leaflets. A trace of mitral regurgitation. PV: No structural PV abnormalities noted. Mild pulmonic regurgitation. TV: No structural TV abnormalities noted. Mild tricuspid regurgitation Maurer: Diastolic dysfunction Grade II (Moderate): Impaired relaxation with elevated LV filling pressures. Other: Insufficient TR jet to estimate PA systolic pressure. MEASUREMENTS: 2D Parasternal [place] LVOT 2 cm LVPWd 1.2 cm LVIDd 4.5 cm Index 2.8 cm/m LV Mass 192.9 g (122-174) LVIDs 2.7 cm LVM Index 117.6 g/m2 LV%fs 41.3 % RWT 0.5 IVSd 1.2 cm LA Sng Plane LA Area 23.3 cm2 (8.8-23.4) LA Vol 82.1 ml Index 50.1 ml/m LA LngAx 5.5 cm DOPPLER AV For Flow/AUGIE AV pkVel 243.3 cm/s (100-170) AV AC/ET 0.3 AV mnVel 148.5 cm/s AV TVI 40.9 cm AV pkPG 23.7 mmHg AVpkAcRt 6675.2 cm/s2 AV Mean G 11.4 mmHg AV DeRt 883.5 cm/s2 AV AC 75 msec (83-118) AV Area 2 cm2 (3-5) AV ET 275 msec LVOT For Flow LVOT Area 3.1 cm2 LVOT SV 82.2 ml LVOTpkVel 140.2 cm/s HR 65.8 bpm LVOTpkPG 7.9 mmHg LVOT CO 5.4 l/min LVOTmnPG 3.8 mmHg LVOT CI 3.3 l/m/m2 LVOT TVI 26.2 cm Signed 12/11/2017 11:42 AM Gavino Magdaleno M.D. Performing Organization Address [facility]/State/Zipcode Phone Number [facility] [address] [place] [address] Echocardiogram complete w contrast and 3D if needed (12/10/2017 4:31 PM) Narrative Performed At [facility] Echocardiography Report [address] [address] Pat.Name:Kurtis HARDY.ID:[id number] .Date: 12/10/2017 Refer.MD:NARENDRA DANIELSON MD Exam Time: 4:43:00 PMStudy Type:Routine Echo Height:64inWeight: 135lb BSA: 1.66 m2 DOBAge:1930,86Y Sex: MALEBP:175/74 HR:73 bpmSonogrphr: ROSIE Farrar Pat. Stat.:Inpatient Study Status:Final Echo Event ID:[id number] Order ID:[id number] Reason for Study:Aortic Stenosis History / Clinical:Valvular Heart Disease; Aortic Stenosis Procedures:2D Echo, Colorflow Doppler Race:C SUMMARY: Intraprocedural TTE for TAVR Severe aortic valve stenosis at baseline. Successful implantation of a 29mm Medtronic EvolutPro in the aortic position that is well-seated. Doppler interrogation shows no significant paravalvular regurgitation. Normal prosthetic valve velocity and gradient. FINDINGS: LV: LV size is normal. There is mild concentric LV hypertrophy. LVEF is normal. Overall wall motion is normal. Estimated EFis >70%. RV: RV size is normal. RV systolic function is normal. LA: LA volume is mildly enlarged. RA: RA size is normal. AO: Aortic root diameter is normal. JAIRO: No pericardial effusion. AV: Severe thickening and calcification of AV leaflets. Severe aorticvalve stenosis at baseline. Successful implantation ofa 29mm Medtronic EvolutPro in the aortic position that iswell-seated. Doppler interrogation shows no significant paravalvularregurgitation. Normal prosthetic valve velocityand gradient. Transcatheter AV Doppler velocity indexis 0.74 (normal >0.50). MV: Mild thickening and calcification of mitral leaflets. Mild mitralannular calcification. PV: Pulmonic valve not well seen. TV: Tricuspid valve not well seen. MEASUREMENTS: 2D Parasternal [place] LVOT 2.1 cmLA Ds4 cm LVIDd3.8 cmIndex2.3 cm/m Ao An2.3 cm LVIDs2.1 cmAo Rtd 3 cm Index1.8 cm/m LV%fs 44.7 % LV Thji091.4 g(122-174) IVSd 1.3 cmLVM Qtedl911.5 g/m2 LVPWd1.4 cmRWT0.7 LA Sng Plane LA Area 22 cm2(8.8-23.4) LA Vol63.6 ml Index38.3 ml/m LA LngAx 6.1 cm DOPPLER AV For Flow/AUGIE AV pkVel 357.7 cm/s (100-170) AV AC/ET 0.3 AV mnVel 256.5 cm/Adam TVI81.7 cm AV pkPG 51.2 mmHgAVpkAcRt 97677.5 cm/s2 AV Mean G 30.9 mmHgAV LoUh6640.8 cm/s2 AV AC 84 msec (83-118) AV Area0.9 cm2(3-5) AV ET318 msec LVOT For Flow LVOT Area3.5 cm2 LVOT SV 73.9 ml LVOTpkVel 90.8 cm/sHR76.6 bpm LVOTpkPG 3.3 mmHgLVOT CO5.7 l/min LVOTmnPG 1.5 mmHgLVOT CI3.4 l/m/m2 LVOT TVI21.3 cm Post-TAVR AV For Flow/AUGIE Post-TAVR AV pk 187.9Post-TAVR AV AC 0.2 Post-TAVR AV mn 119.1Post-TAVR AV TV31.1 Post-TAVR AV pk14.1Post-TAVR AV pk 4605.4 Post-TAVR AV mn 6.6Post-TAVR AV De 719.6 Post-TAVR AV AC40.8Post-TAVR AUGIE(V 2 Post-TAVR AV ET 261.2Post-TAVR AUGIE(T 2.6 Post-TAVR LVOT For Flow Post-TAVR LVOT3.5Post-TAVR LVOT3 Post-TAVR VSZL868.6Post-TAVR LVOT 23.4 Post-TAVR LVOT4.9Post-TAVR SV81.2 Signed 12/10/2017 07:26 PM Clifton Mariee M.D. Procedure Note Interface, Radiology Results In - 12/10/2017 7:26 PM CDT Echocardiography Report [address] [place] [address] Pat.Name: JUSTICE HARDY Pat.ID: [id number] St.Date: 12/10/2017 Refer.MD: NARENDRA DANIELSON MD Exam Time: 4:43:00 PM Study Type:Routine Echo Height: 64in Weight: 135lb BSA: 1.66 m2 Age: 7 1930,86Y Sex: MALE BP: 175/74 HR: 73 bpm Sonogrphr: ROSIE Farrar Pat. Stat.:Inpatient Study Status:Final Echo Event ID:[id number] Order ID: [id number] Reason for Study:Aortic Stenosis History / Clinical:Valvular Heart Disease; Aortic Stenosis Procedures:2D Echo, Colorflow Doppler Race: C SUMMARY: Intraprocedural TTE for TAVR Severe aortic valve stenosis at baseline. Successful implantation of a 29mm Medtronic EvolutPro in the aortic position that is well-seated. Doppler interrogation shows no significant paravalvular regurgitation. Normal prosthetic valve velocity and gradient. FINDINGS: LV: LV size is normal. There is mild concentric LV hypertrophy. LV EF is normal. Overall wall motion is normal. Estimated EF is >70%. RV: RV size is normal. RV systolic function is normal. LA: LA volume is mildly enlarged. RA: RA size is normal. AO: Aortic root diameter is normal. JAIRO: No pericardial effusion. AV: Severe thickening and calcification of AV leaflets. Severe aortic valve stenosis at baseline. Successful implantation of a 29mm Medtronic EvolutPro in the aortic position that is well-seated. Doppler interrogation shows no significant paravalvular regurgitation. Normal prosthetic valve velocity and gradient. Transcatheter AV Doppler velocity index is 0.74 (normal >0.50). MV: Mild thickening and calcification of mitral leaflets. Mild mitral annular calcification. PV: Pulmonic valve not well seen. TV: Tricuspid valve not well seen. MEASUREMENTS: 2D Parasternal [place] LVOT 2.1 cm LA Ds 4 cm LVIDd 3.8 cm Index 2.3 cm/m Ao An 2.3 cm LVIDs 2.1 cm Ao Rtd 3 cm Index 1.8 cm/m LV%fs 44.7 % LV Mass 183.4 g (122-174) IVSd 1.3 cm LVM Index 110.5 g/m2 LVPWd 1.4 cm RWT 0.7 LA Sng Plane LA Area 22 cm2 (8.8-23.4) LA Vol 63.6 ml Index 38.3 ml/m LA LngAx 6.1 cm DOPPLER AV For Flow/AUGIE AV pkVel 357.7 cm/s (100-170) AV AC/ET 0.3 AV mnVel 256.5 cm/s AV TVI 81.7 cm AV pkPG 51.2 mmHg AVpkAcRt 42825.5 cm/s2 AV Mean G 30.9 mmHg AV DeRt 1123.8 cm/s2 AV AC 84 msec (83-118) AV Area 0.9 cm2 (3-5) AV ET 318 msec LVOT For Flow LVOT Area 3.5 cm2 LVOT SV 73.9 ml LVOTpkVel 90.8 cm/s HR 76.6 bpm LVOTpkPG 3.3 mmHg LVOT CO 5.7 l/min LVOTmnPG 1.5 mmHg LVOT CI 3.4 l/m/m2 LVOT TVI 21.3 cm Post-TAVR AV For Flow/AUGIE Post-TAVR AV pk 187.9 Post-TAVR AV AC 0.2 Post-TAVR AV mn 119.1 Post-TAVR AV TV 31.1 Post-TAVR AV pk 14.1 Post-TAVR AV pk 4605.4 Post-TAVR AV mn 6.6 Post-TAVR AV De 719.6 Post-TAVR AV AC 40.8 Post-TAVR AUGIE(V 2 Post-TAVR AV ET 261.2 Post-TAVR AUGIE(T 2.6 Post-TAVR LVOT For Flow Post-TAVR LVOT 3.5 Post-TAVR LVOT 3 Post-TAVR LVOT 110.6 Post-TAVR LVOT 23.4 Post-TAVR LVOT 4.9 Post-TAVR SV 81.2 Signed 12/10/2017 07:26 PM Clifton Mariee M.D. Performing Organization Address City/State/[facility] Phone Number [facility] [address] [place] [address] Cv medical lab specialist procedure (12/10/2017 3:35 PM) Narrative Performed At [facility]: CINTHYA Nowak MD andNarnedra Danielson MD PROCEDURES: 1.Diagnostic left heart catheterization. 2.Transcatheter aortic valve replacement with 29 mm CoreValve Evolut PRO. 3.Ascending aortogram. 4.Descending abdominal aortogram. 5.Balloon aortic valvuloplasty. 6.Placement of ProGlide sutures to close femoral artery. COMPLICATIONS: None. BLOOD PRODUCTS: NA. IMPLANT DEPTH: 4 mm. SPECIMENS: None. ASSISTANTS: Dr. Endy Jones PROCEDURE IN DETAIL: The patient was taken to the hybrid operating room.The team held its customary image review and briefing while anesthesia was managing the airway and obtaining the requisite lines.Following the review and briefing, the patient was prepped and draped in the usual fashion. A temporary IJ wire was placed in the neck Attention was first turned to both groins which were anesthetized with 1% lidocaine.The left femoral artery was punctured under ultrasound guidance using a micropuncture needle, and a 6-Portuguese sheath was placed.Then, through the right femoral sheath, a diagnostic internal mammary catheter was advanced over a Glidewire to the descending abdominal aorta. The Glidewire was pulled back into the catheter and the catheter was pulled back to the aortic bifurcation.The wire was then advanced into the iliac and followed with the catheter which was advanced to the common femoral artery.The wire was removed and was exchanged for a [place] Plus 0.018 inch wire.The wire was then advanced and the catheter was removed.The proximal portion of the wire was housed in its protective hoop.Attention was then turned to the contralateral femoral artery. After a small incision and spread, theartery was punctured under fluoroscopic guidance using the [place] Plus wire as a target.The puncture was with a micropuncture needle which was then exchanged for a 6-Portuguese sheath, which was in turn exchanged for 2 sequential Proglide sutures.These sutures were taped into place and were exchanged for a 10-Portuguese dilator. Over a Super Stiff wire, the 10-Portuguese dilator was then exchanged for a 16Fr Dryseal sheath. All sheaths were sutured into place and heparin was given by anesthesia. Next, through the leftt femoral sheath, a 5 Fr marker pigtail was advanced to the basal portion of the non-coronary cusp.The optimal gantry angle was determined using multiple injections of dilute contrast. Then, through the right femoral sheath, a 6-Portuguese Amplatz AL1 diagnostic catheter was advanced over an 0.035 inch J-wire to the ascending aorta.The J-wire was exchanged for a straight wire and the straight wire was used across the tetlin aortic valve. The catheter was advanced into the left ventricle. Then, through the catheter, a J-wire was placed and the catheter was exchanged for a 6-Portuguese angled pigtail catheter which was used to perform a diagnostic left heart catheterization.This revealed LV pressure 188, aortic pressure 137/60 mean gradient 45, peak gradient 51 mm Hg.Through the pigtail catheter, a safari wire was placed and the balloon was exchanged for a 22-mm True balloon. Using this True balloon, balloon aortic valvuloplasty was performed under rapid ventricular pacing.The balloon was then exchanged over the wire for a 29-mm CoreValve Evolut PRO which had been prepared on the backtable and checked fluoroscopically.The CoreValve Evolut was placed across the tetlin aortic valve and was extruded slowly under ventricular pacing at a rate of 120 beats per minute.no recaptures were required. Once we were satisfied with position, the valve was released after a period of approximately 4 minutes. The valve was then checked echocardiographically.There was found to be mild to moderate aortic regurgitation.The nose cone was removed over the wire and was recaptured in the delivery capture system in the descending aorta. The delivery capture system was then exchanged for the 6-Portuguese angled pigtail. A second diagnostic left heart catheterization was then performed. This revealed LV pressure 137 aortic pressure 132/54, mean gradient 5 mm Hg, peak gradient 5 mm Hg. The pigtail catheter was pulled back to the ascending aorta and then ascending aortogram performed which revealed mild to moderate aortic regurgitation (Gonzales grade 2).Based on the cumulative angiographic, echocardiographic, and hemodynamic findings,post dilation was determined to be needed. Post dilataion was performed with a 24 mm Balloon and regurgitation was reduced to mild The implant depth was 5 mm. The pigtail catheter was then removed and the large arterial sheath was removed over the J-wire.The Proglide sutures were cinched into place and cross tied.Hemostasis was achieved.Then, the marker pigtail was pulled down to the descending aorta and descending aortogram was performed. This revealed the closure site to sligthly narrowed. A 5 mm x40 mm balloon was used for PTCA with excellent result The estimated blood loss was 300 mL.There was mild aortic regurgitation present.The remaining femoral arterial sheath was then removed and the pacemaker was removed and the patient awakened and taken to recovery room. I was physically present for the critical portions of all procedures performed during this episode of care. Performing Organization Address [facility] Phone Number [facility] [address] [place] [address] Sodium level, syringe (12/10/2017 2:25 PM) Sodium, syringe 133 (L) 135 - 148 mEq/L [facility] DEPARTMENT OF PATHOLOGY AND GENOMIC MEDICINE Specimen Blood Performing Organization Address [facility]/Zipcode Phone Number [facility] DEPARTMENT OF PATHOLOGY AND [address] [place] [address] [facility] Potassium, syringe (12/10/2017 2:25 PM) Potassium, syringe 3.7 3.5 - 5.0 mEq/L [facility] DEPARTMENT OF PATHOLOGY AND GENOMIC MEDICINE Specimen Blood Performing Organization Address [facility] Hospitalcomo Phone Number [facility] DEPARTMENT OF PATHOLOGY AND [address] [place], [place] [phone] [facility] Ionized calcium, arterial (12/10/2017 2:25 PM) Ionized calcium, arterial 1.10 (L) 1.11 - 1.32 mmol/L [facility] DEPARTMENT OF PATHOLOGY AND GENOMIC MEDICINE Specimen Blood Performing Organization Address City/[facility] Hospitalcode Phone Number [facility] DEPARTMENT OF PATHOLOGY AND [address] [place] [phone] [facility] Hemoglobin, syringe (12/10/2017 2:25 PM) Hemoglobin, syringe 13.5 (L) 14.0 - 18.0 g/dL [facility] DEPARTMENT OF PATHOLOGY AND GENOMIC MEDICINE Specimen Blood Performing Organization Address [facility] Phone Number [facility] DEPARTMENT OF PATHOLOGY AND [address] [place] [phone] [facility] Glucose level, syringe (12/10/2017 2:25 PM) Glucose, syringe 95 65 - 99 mg/dL [facility] DEPARTMENT OF PATHOLOGY AND GENOMIC MEDICINE Specimen Blood Performing Organization Address [facility] Phone Number [facility] DEPARTMENT OF PATHOLOGY AND [address] [place], [place] [phone] [facility] Arterial blood gas, corrected (12/10/2017 2:25 PM) pH, arterial 7.40 7.35 - 7.45 [facility] DEPARTMENT OF PATHOLOGY AND GENOMIC MEDICINE pCO2, arterial 39 35 - 45 mmHg [facility] DEPARTMENT OF PATHOLOGY AND GENOMIC MEDICINE pO2, arterial 350 (H) 80 - 90 mmHg [facility] DEPARTMENT OF PATHOLOGY AND GENOMIC MEDICINE Temperature, Celsius 36.7 Degrees C [facility] DEPARTMENT OF PATHOLOGY AND GENOMIC MEDICINE O2 saturation, arterial 100 95 - 100 % [facility] DEPARTMENT OF PATHOLOGY AND GENOMIC MEDICINE pH, arterial corrected 7.41 [facility] DEPARTMENT OF PATHOLOGY AND GENOMIC MEDICINE pCO2, arterial corrected 39 mmHg [facility] DEPARTMENT OF PATHOLOGY AND GENOMIC MEDICINE pO2, arterial corrected 349 mmHg [facility] DEPARTMENT OF PATHOLOGY AND GENOMIC MEDICINE Base excess, arterial 0 -2 - 2 mEq/L [facility] DEPARTMENT OF PATHOLOGY AND GENOMIC MEDICINE Specimen Blood Performing Organization Address [facility] Hospitalcode Phone Number [facility] DEPARTMENT OF PATHOLOGY AND [address] [place], [place] [phone] GENOMIC MEDICINE XR Chest 2 Vw (12/05/2017 12:01 PM) Narrative Performed At EXAMINATION:XR CHEST 2 VW RADIANT CLINICAL HISTORY:I35.0 Nonrheumatic aortic (valve) stenosis, Z01.818 Encounter for other preprocedural examination, aortic stenosispreop evaluation COMPARISON:07/14/1998 IMPRESSION: Lungs are slightly hypoinflated with mild elevation of the left hemidiaphragm. No infiltrate, consolidation, pleural effusion or pneumothorax. Heart size is normal. Calcified arch atherosclerosis. Prior anterior chest surgery with median sternotomy wires. Osseous degenerative changes and osteopenia. [facility]-[id number] Procedure Note Interface, Radiology Results Incoming - 12/05/2017 12:12 PM CDT EXAMINATION: XR CHEST 2 VW CLINICAL HISTORY: I35.0 Nonrheumatic aortic (valve) stenosis, Z01.818 Encounter for other preprocedural examination, aortic stenosis preop evaluation COMPARISON: 07/14/1998 IMPRESSION: Lungs are slightly hypoinflated with mild elevation of the left hemidiaphragm. No infiltrate, consolidation, pleural effusion or pneumothorax. Heart size is normal. Calcified arch atherosclerosis. Prior anterior chest surgery with median sternotomy wires. Osseous degenerative changes and osteopenia. [facility]-[id number] Performing Organization Address City/State/Zipcode Phone Number [facility] [address] [place] [address] Urinalysis screen and microscopy, with reflex to culture (12/05/2017 11:10 AM) Specimen site Clean catch [facility] DEPARTMENT OF PATHOLOGY AND GENOMIC MEDICINE Color, UA Straw [facility] DEPARTMENT OF PATHOLOGY AND GENOMIC MEDICINE Appearance, UA Clear [facility] DEPARTMENT OF PATHOLOGY AND GENOMIC MEDICINE Specific gravity, UA 1.011 1.001 - 1.035 [facility] DEPARTMENT OF PATHOLOGY AND GENOMIC MEDICINE pH, UA 6.0 5.0 - 8.5 [facility] DEPARTMENT OF PATHOLOGY AND GENOMIC MEDICINE Protein, UA Negative Negative [facility] DEPARTMENT OF PATHOLOGY AND GENOMIC MEDICINE Glucose, UA Negative Negative [facility] DEPARTMENT OF PATHOLOGY AND GENOMIC MEDICINE Ketones, UA Negative Negative [facility] DEPARTMENT OF PATHOLOGY AND GENOMIC MEDICINE Bilirubin, UA Negative Negative [facility] DEPARTMENT OF PATHOLOGY AND GENOMIC MEDICINE Blood, UA Negative Negative [facility] DEPARTMENT OF PATHOLOGY AND GENOMIC MEDICINE Nitrite, UA Negative Negative [facility] DEPARTMENT OF PATHOLOGY AND GENOMIC MEDICINE Urobilinogen, UA <2.0 <2.0 [facility] DEPARTMENT OF PATHOLOGY AND GENOMIC MEDICINE Leukocyte esterase, UA Negative Negative [facility] DEPARTMENT OF PATHOLOGY AND GENOMIC MEDICINE WBC, UA <1 0 - 1 /HPF [facility] DEPARTMENT OF PATHOLOGY AND GENOMIC MEDICINE RBC, UA 1 0 - 5 /HPF [facility] DEPARTMENT OF PATHOLOGY AND GENOMIC MEDICINE Bacteria, UA None seen None seen [facility] DEPARTMENT OF PATHOLOGY AND GENOMIC MEDICINE Yeast, UA None seen [facility] DEPARTMENT OF PATHOLOGY AND GENOMIC MEDICINE Yeast with pseudohyphae, UA None seen [facility] DEPARTMENT OF PATHOLOGY AND GENOMIC MEDICINE Specimen Urine Performing Organization Address [facility] Hospitalcode Phone Number [facility] DEPARTMENT OF PATHOLOGY AND [address] [place] [address] Urine culture (12/05/2017 11:10 AM) Urine culture SEE COMMENTComment: Bacteriuria [facility] DEPARTMENT OF PATHOLOGY screen negative. AND GENOMIC MEDICINE Performing Organization Address [facility] Phone Number [facility] DEPARTMENT OF PATHOLOGY AND [address] [place] [address] B natriuretic peptide (12/05/2017 11:10 AM) BNP 47 0 - 100 pg/mL [facility] DEPARTMENT OF PATHOLOGY AND GENOMIC MEDICINE Specimen Blood Performing Organization Address [facility] Phone Number [facility] DEPARTMENT OF PATHOLOGY AND [address] [place] [address] Partial thromboplastin time, activated (12/05/2017 10:51 AM) PTT 31.1 23.0 - 36.0 sec [facility] DEPARTMENT OF PATHOLOGY Comment: [facility] PTT therapeutic range for unfractionated heparin is 61.0-112.0 seconds which corresponds to Anti-Xa 0.3-0.7 U/ml. Specimen Blood Performing Organization Address [facility]code Phone Number [facility] DEPARTMENT OF PATHOLOGY AND [address] [place] [address] Prothrombin time with INR (12/05/2017 10:51 AM) Prothrombin time 14.3 12.0 - 15.0 sec [facility] DEPARTMENT OF PATHOLOGY AND GENOMIC MEDICINE INR 1.1 [facility] DEPARTMENT OF Comment: PATHOLOGY AND GENOMIC The International Normalized Ratio (INR) is a therapeutic MEDICINE monitoring tool for patients who are stable on oral anticoagulant therapy. An INR of 2.0-3.0 is suggested for deep vein thrombosis/pulmonary embolism. Specimen Blood Performing Organization Address City/[facility]code Phone Number [facility] DEPARTMENT OF PATHOLOGY AND [address] [place] [address] [employer] Prepare RBC (12/05/2017 10:51 AM) Product name Red Blood Cells -1, [facility] DEPARTMENT OF Leukored PATHOLOGY AND GENOMIC MEDICINE Unit number [id number] [facility] DEPARTMENT OF PATHOLOGY AND GENOMIC MEDICINE Product code [id number] [facility] DEPARTMENT OF PATHOLOGY AND GENOMIC MEDICINE Dispense status Returned to BB not [facility] DEPARTMENT OF transfused PATHOLOGY AND GENOMIC MEDICINE Blood expiration date [facility] DEPARTMENT OF PATHOLOGY AND GENOMIC MEDICINE Blood type code 6200 [facility] DEPARTMENT OF PATHOLOGY AND GENOMIC MEDICINE Blood type A POSITIVE [facility] DEPARTMENT OF PATHOLOGY AND GENOMIC MEDICINE Product name Red Blood Cells -1, [facility] DEPARTMENT OF Leukored PATHOLOGY AND GENOMIC MEDICINE Unit number [id number] [facility] DEPARTMENT OF PATHOLOGY AND GENOMIC MEDICINE Product code [id number] [facility] DEPARTMENT OF PATHOLOGY AND GENOMIC MEDICINE Dispense status Returned to BB not [facility] DEPARTMENT OF transfused PATHOLOGY AND GENOMIC MEDICINE Blood expiration date [facility] DEPARTMENT OF PATHOLOGY AND GENOMIC MEDICINE Blood type code 6200 [facility] DEPARTMENT OF PATHOLOGY AND GENOMIC MEDICINE Blood type A POSITIVE [facility] DEPARTMENT OF PATHOLOGY AND GENOMIC MEDICINE Performing Organization Address City/[facility]/Zipcode Phone Number [facility] DEPARTMENT OF PATHOLOGY AND [address] [place] [address] GENOMIC MEDICINE Type and screen (12/05/2017 10:51 AM) ABO grouping A [facility] DEPARTMENT OF PATHOLOGY AND GENOMIC MEDICINE Rh type POS [facility] DEPARTMENT OF PATHOLOGY AND GENOMIC MEDICINE Antibody screen (gel) NEG [facility] DEPARTMENT OF PATHOLOGY AND GENOMIC MEDICINE Specimen Blood Performing Organization Address City/[facility]/Zipcode Phone Number [facility] DEPARTMENT OF PATHOLOGY AND [address] [place] [address] [facility] Hemoglobin A1c (12/05/2017 10:51 AM) Hemoglobin A1C 5.9 (H) 4.0 - 5.6 % [facility] DEPARTMENT OF PATHOLOGY Comment: AND GENOMIC MEDICINE HbA1c cutoffs for diagnosing diabetes: 4.0% - 5.6%=normal 5.7% - 6.4%=increased risk for diabetes (prediabetes) >=6.5%=diabetes Goals for glycemic control (ADA 2016) < 7.0%Target for non adults with diabetes. More or less stringent targets may be appropriate for individual patients. <7.5% Target for Children and adolescents with type 1 diabetes. Specimen Blood Performing Organization Address City/[facility]/Zipcode Phone Number [facility] DEPARTMENT OF PATHOLOGY AND [address] [place] [address] Total iron binding capacity (12/05/2017 10:38 AM) Iron level 55 (L) 59 - 158 ug/dL [facility] DEPARTMENT OF PATHOLOGY AND [facility] Iron binding capacity 288 200 - 400 ug/dL [facility] DEPARTMENT OF PATHOLOGY AND [facility] MEDICINE % Saturation 19.1 (L) 20.0 - 40.0 % [facility] DEPARTMENT OF PATHOLOGY AND [facility] Specimen Plasma specimen Performing Organization Address City/[facility]code Phone Number [facility] DEPARTMENT OF PATHOLOGY AND [address] [place] [address] Folate level (12/05/2017 10:38 AM) Folate 10.7 4.8 - 24.2 ng/mL [facility] DEPARTMENT OF PATHOLOGY AND [facility] Specimen Serum Performing Organization Address [facility]code Phone Number [facility] DEPARTMENT OF PATHOLOGY AND [address] [place] [address] Ferritin level (12/05/2017 10:38 AM) Ferritin level 28 (L) 30 - 400 ng/mL [facility] DEPARTMENT OF PATHOLOGY AND [facility] Specimen Plasma specimen Performing Organization Address [facility]code Phone Number [facility] DEPARTMENT OF PATHOLOGY AND [address] [place] [address] Vitamin B12 level (12/05/2017 10:38 AM) Vitamin B12 370 211 - 946 pg/mL [facility] DEPARTMENT OF PATHOLOGY Comment: AND [facility] Significant overlap exists between normal and deficiency states. However, most patients with deficiencies will have Serum B12 <200 pg/mL. 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 Saphenous vein graft to the distal circumflex with opacification of the whole circumflex was patent except for a distal lesion in the graft about 50%.Right coronary artery saphenous vein bypass graft showed several lesions 50 and 75% admit point.Distal anastomosis of the vein graft to the right showed a 75-95% stenosis.Left ventriculography was not performed as patient has severe aortic valve stenosis. Performing Organization Address City/State/Zipcode Phone Number [facility] [address] tavr workup (cta coronary,cta thoracic aorta,cta abdominal aorta) w contrast (09/25/2017 1:42PM) Narrative Performed At [facility] Nuclear Cardiology and Cardiac CT [address] [place] [address] CTA TAVR Protocol Pat.Name:Kurtis HARDY.ID:[id number] .Date: 09/25/2017 Refer.MD:STEPAN WILDE MD Exam Time: 1:16:00 PMStudy Type:CTA TAVR Protocol Height:64inWeight: 136lb BSA: 1.66 m2 DOBAge:1930,86Y Sex: MALEBP:175/84 HR:70 bpm Nuclear Tech:AYANNA Mcneal(Rebecca)(CT) Pat. Stat.:Outpatient CPT - 4: TAVR w Coronaries [id number] Nuclear Event ID:[id number] Order ID:[id number] Reason for Study:AVS Procedures:CTA TAVR Protocol Race:C SUMMARY: Technique: IV contrast was administered and sequential 0.[address] cuts were obtained through the chest using the Siemens Somatom Force CT scanner. Post-processing and 3D reconstruction were done using the [employer] workstation. Interactive image viewing and volumetric display and analysis were also performed. CTA RESULTS Left Main: A normal sized 5.2 mm artery which arises normally from the left sinus of Valsalva and divides into the left anterior descending and circumflex coronary arteries. Severe calcified atherosclerotic plaque is present distally which prevents assessment of stenosis. Left anterior descending (LAD): A normal sized 3.8mm artery which wraps around the apex and gives off two diagonal branches. Severe predominantly calcified atherosclerotic plaque is present in the proximal and mid segments but unable to assess accurately degree of stenosis due to severe calcification. There appears to be subtotal occlusion just prior to the insertion of the CASTILLO graft. Patent left internal mammary graft the distal left anterior descending coronary artery which has a widely patent anastomosis and no significant stenosis beyond the graft insertion. The first diagonal is a small 1.2 mm artery which has no significant atherosclerotic plaque is present. The second diagonal is a 2.1 mm bifurcating artery in which the first branch has mild (30-40%) stenosis in the proximal segment and the second branch has severe predominantly calcified atherosclerotic plaque present with subtotal vs. total occlusion proximal to the vein graft insertion. Patent saphenous vein graft to the second diagonal coronary artery which has a widely patent anastomosis and no significant stenosis beyond the graft insertion. Left circumflex: A normal sized 4.2 mm nondominant artery which arises normally from the left main and gives off one major obtuse marginal artery before terminating in the AV groove. Severe predominantly calcified atherosclerotic plaque is present in the proximal and mid segments with subtotal versus total occlusion in the proximal segment. The first obtuse marginal is a 2.0 mm artery which has severe predominantly calcified atherosclerotic plaque present but with probably no significant stenosis.Patent saphenous vein graft to the first obtuse marginal coronary artery which has a widely patent anastomosis and no significant stenosis beyond the graft insertion. There is significant non-obstructive plaque within the graft (40-50%) with a residual lumen of 3 mm's. Right coronary artery: A normal sized 3.1 mm dominant artery which arises normally from the right sinus of Valsalva and gives off several right ventricular branches, a posterolateral branch and the posterior descending artery. Severe predominantly calcified atherosclerotic plaque is present in the proximal segment with severe (>70%) proximal stenosis. Patent saphenous vein graft to the distal right coronary artery but which has severe >70% stenosis in the mid segment with a residual luminal diameter of 1.2 mm's.The anastomosis site is patent but the distal right coronary artery beyond the graft insertion and prior to the bifurcationis of small caliberand with diffuse stenosis. The posterior descending is a 1.5 mm artery which has moderate calcified and non-calcified atherosclerotic plaque present but with no significant stenosis. The posterolateral is a 1.9 mm artery which has mild calcified and non-calcified atherosclerotic plaque present but no significant stenosis. Ramus: None Stents: None. Bypass Grafts: Patent left internal mammary graft the distal left anterior descending coronary artery which has a widely patent anastomosis and no significant stenosis beyond the graft insertion. Patent saphenous vein graft to the second diagonal coronary artery which has a widely patent anastomosis and no significant stenosis beyond the graft insertion. Patent saphenous vein graft to the first obtuse marginal coronary artery which has a widely patent anastomosis and no significant stenosis beyond the graft insertion. There is significant non-obstructive plaque within the graft (40-50%) with a residual lumen of 3 mm's. Patent saphenous vein graft to the distal right coronary artery but which has severe >70% stenosis in the mid segment with a residual luminal diameter of 1.2 mm's.The anastomosis site is patent but the distal right coronary artery beyond the graft insertion and prior to the bifurcationis of small caliberand with diffuse stenosis. Pulmonary Arteries: Normal pulmonary artery sizewith no proximal thrombus identified. Left Atrial and Pulmonary Vein Dimensions: Left atrial size (A-P diameter) 4.6 cm. Left atrial volume 103 ml. Normal PV anatomy Left superior PV16 mm. Left inferior PV15 mm. Right superior PV16 mm. Right inferior PV17 mm. There is no evidence of the left atrial appendage clot. Left Ventricular Valve Morphology/Function: LV septal wall thickness 16 mm. LV end-diastolic volume 75 ml. LV end-systolic volume 30 ml. LVEF72 % with normal regional wall motion. Aortic valve is tri-leaflet with severe calcification and severe aortic stenosis (AUGIE 0.80 cm2.) but no significant regurgitation. Mitral valve is normal without evidence of stenosis or regurgitation. Right Ventricular Morphology/Function: RV end-diastolic volume 83 ml. RV end-systolic volume 55 ml. RVEF 61 % Pericardium: No pericardium effusion or pericardial thickening. Thoracic Aortic Dimensions: No aortic aneurysm or dissection is seen. Aortic root3.5 cm. Sinotubular junction 2.2 cm. Mid ascending thoracic aorta 3.2 cm. Distal ascending thoracic aorta 2.9 cm. Aortic arch 2.6 cm.There is normal takeoff of the great vessels except for the left carotid which arises from the right brachiocephalic trunk as a variant. Aortic Isthmus 2.1 cm. Descending thoracic aorta 2.6 cm. Upper abdominal Aorta: 2.3 cm with moderate calcified and non-calcified atherosclerotic plaque. Celiac trunk: 6 mm with no significant stenosis. Superior mesenteric artery: 5 mm with no significant stenosis. Right renal artery: 5.1 mm with no significant stenosis. Right accessory renal artery 2.0 mm with no stenosis. Left renal artery: 5.6 mm with no significant stenosis. Inferior mesenteric artery: 3.5 mm with no significant stenosis. Infrarenal aorta: 1.3 cm with no significant atherosclerotic plaque. TAVR Report Calcified Aorta: Moderate Characterization of Aortic Root: Major aortic annulus diameter (systole): 28 mm Perpendicular minor aortic annulus diameter (systole): 22 mm Aortic annulus perimeter (systole): 78 mm Sinus of Valsalva height left coronary (diastole): 12 mm Sinus of Valsalva height non-coronary (diastole): 16 mm Sinus of Valsalva height right coronary (diastole): 17 mm Sinus of Valsalva diameter left coronary (diastole): 32 mm Sinus of Valsalva diameter non-coronary (diastole): 34 mm Sinus of Valsalva diameter right (diastole): 31 mm Maximum ascending aorta diameter at 40mm above annulus (diastole): 32 mm Aortic Root Angulation (diastole): 58 degrees Abdominal Aortic Aneurysm: No Thoracic Aortic Aneurysm: No Characterization of access vessels: Right Common Iliac: Minimum lumen diameter: 7.5 mm Percent stenosis: Minimal (<25%) Tortuosity: Mild Calcification: No Right External Iliac: Minimum lumen diameter: 7.5 mm Percent stenosis: None Tortuosity: No Calcification: No Right Femoral: Minimum lumen diameter: 7.0 mm Percent stenosis: None Tortuosity: No Calcification: No Left Common Iliac:Minimum lumen diameter: 5.8 mm Percent stenosis: Moderate (50%) Tortuosity: No Calcification: Mild Left External Iliac: Minimum lumen diameter: 7.5 mm Percent stenosis: None Tortuosity: No Calcification: No Left Femoral: Minimum lumen diameter: 7.0 mm Percent stenosis: None Tortuosity: Mild Calcification: No Aortic Bifurcation Left Lower Extremity Left internal iliac is a 5.2 mm artery which has mild calcified atherosclerotic plaque present but with no significant stenosis. Left superficial femoral is a 7 mm artery which has no significant atherosclerotic plaque present. Right Lower Extremity Right internal iliac is a 5.1 mm artery which has no significant atherosclerotic plaque present. Right superficial femoral is a 6.6 mm artery which has mild predominantly non-calcified atherosclerotic plaque present but with no significant stenosis. 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 The ureters appears to be enlarged CONCLUSION CT coronary angiography shows multivessel severe tetlin coronary artery disease with severe stenosis in all of the major coronary arteries (details above in the report). Patent left internal mammary graft the distal left anterior descending coronary artery which has a widely patent anastomosis and no significant stenosis beyond the graft insertion. Patent saphenous vein graft to the second diagonal coronary artery which has a widely patent anastomosis and no significant stenosis beyond the graft insertion. Patent saphenous vein graft to the first obtuse marginal coronary artery which has a widely patent anastomosis and no significant stenosis beyond the graft insertion. There is significant non-obstructive plaque within the graft (40-50%) with a residual lumen of 3 mm's. Patent saphenous vein graft to the distal right coronary artery but which has severe >70% stenosis in the mid segment with a residual luminal diameter of 1.2 mm's.The anastomosis site is patent but the distal right coronary artery beyond the graft insertion and prior to the bifurcationis of small caliberand with diffuse stenosis. Moderate to severe LV septal hypertrophy (16mm) The LVEF is 72% and the RVEF is 61%. There is no evidence of left atrial appendage thrombus. Significant non-calcified atherosclerotic plaque seen throughoutthe descending aorta and in the peripheral vessels including a significant 50% stenosis in the left common iliac artery. STUDY QUALITY The study quality is fair. COMMENTS None. The above report was based on a dedicated Cardiovascular CTA Protocol and interpreted by a Field Service Supervisor.Should a more comprehensive assessment of non-cardiovascular findings be desired, please consult a radiologist.These images are available in the [facility] [employer] PACS system. Signed 09/30/2017 01:07 PM Aly Lea MD Procedure Note Interface, Radiology Results In - 09/30/2017 1:21 PM CDT Nuclear Cardiology and Cardiac CT [address] [place] [address] CTA TAVR Protocol Pat.Name: JUSTICE HARDY Pat.ID: [id number] .Date: 09/25/2017 Refer.MD: STEPAN WIDLE MD Exam Time: 1:16:00 PM Study Type:CTA TAVR Protocol Height: 64in Weight: 136lb BSA: 1.66 m2 Age: 7 1930,86Y Sex: MALE BP: 175/84 HR: 70 bpm Nuclear Tech:AYANNA Mcneal(Rebecca)(CT) Pat. Stat.:Outpatient CPT - 4: TAVR w Coronaries [id number] Nuclear Event ID:[id number] Order ID: [id number] Reason for Study:AVS Procedures:CTA TAVR Protocol Race: C SUMMARY: Technique: IV contrast was administered and sequential 0.[address] cuts were obtained through the chest using the Siemens Somatom Force CT scanner. Post-processing and 3D reconstruction were done using the [employer] workstation. Interactive image viewing and volumetric display and analysis were also performed. CTA RESULTS Left Main: A normal sized 5.2 mm artery which arises normally from the left sinus of Valsalva and divides into the left anterior descending and circumflex coronary arteries. Severe calcified atherosclerotic plaque is present distally which prevents assessment of stenosis. Left anterior descending (LAD): A normal sized 3.8mm artery which wraps around the apex and gives off two diagonal branches. Severe predominantly calcified atherosclerotic plaque is present in the proximal and mid segments but unable to assess accurately degree of stenosis due to severe calcification. There appears to be subtotal occlusion just prior to the insertion of the CASTILLO graft. Patent left internal mammary graft the distal left anterior descending coronary artery which has a widely patent anastomosis and no significant stenosis beyond the graft insertion. The first diagonal is a small 1.2 mm artery which has no significant atherosclerotic plaque is present. The second diagonal is a 2.1 mm bifurcating artery in which the first branch has mild (30-40%) stenosis in the proximal segment and the second branch has severe predominantly calcified atherosclerotic plaque present with subtotal vs. total occlusion proximal to the vein graft insertion. Patent saphenous vein graft to the second diagonal coronary artery which has a widely patent anastomosis and no significant stenosis beyond the graft insertion. Left circumflex: A normal sized 4.2 mm nondominant artery which arises normally from the left main and gives off one major obtuse marginal artery before terminating in the AV groove. Severe predominantly calcified atherosclerotic plaque is present in the proximal and mid segments with subtotal versus total occlusion in the proximal segment. The first obtuse marginal is a 2.0 mm artery which has severe predominantly calcified atherosclerotic plaque present but with probably no significant stenosis. Patent saphenous vein graft to the first obtuse marginal coronary artery which has a widely patent anastomosis and no significant stenosis beyond the graft insertion. There is significant non-obstructive plaque within the graft (40-50%) with a residual lumen of 3 mm's. Right coronary artery: A normal sized 3.1 mm dominant artery which arises normally from the right sinus of Valsalva and gives off several right ventricular branches, a posterolateral branch and the posterior descending artery. Severe predominantly calcified atherosclerotic plaque is present in the proximal segment with severe (>70%) proximal stenosis. Patent saphenous vein graft to the distal right coronary artery but which has severe >70% stenosis in the mid segment with a residual luminal diameter of 1.2 mm's. The anastomosis site is patent but the distal right coronary artery beyond the graft insertion and prior to the bifurcation is of small caliber and with diffuse stenosis. The posterior descending is a 1.5 mm artery which has moderate calcified and non-calcified atherosclerotic plaque present but with no significant stenosis. The posterolateral is a 1.9 mm artery which has mild calcified and non-calcified atherosclerotic plaque present but no significant stenosis. Ramus: None Stents: None. Bypass Grafts: Patent left internal mammary graft the distal left anterior descending coronary artery which has a widely patent anastomosis and no significant stenosis beyond the graft insertion. Patent saphenous vein graft to the second diagonal coronary artery which has a widely patent anastomosis and no significant stenosis beyond the graft insertion. Patent saphenous vein graft to the first obtuse marginal coronary artery which has a widely patent anastomosis and no significant stenosis beyond the graft insertion. There is significant non-obstructive plaque within the graft (40-50%) with a residual lumen of 3 mm's. Patent saphenous vein graft to the distal right coronary artery but which has severe >70% stenosis in the mid segment with a residual luminal diameter of 1.2 mm's. The anastomosis site is patent but the distal right coronary artery beyond the graft insertion and prior to the bifurcation is of small caliber and with diffuse stenosis. Pulmonary Arteries: Normal pulmonary artery size with no proximal thrombus identified. Left Atrial and Pulmonary Vein Dimensions: Left atrial size (A-P diameter) 4.6 cm. Left atrial volume 103 ml. Normal PV anatomy Left superior PV16 mm. Left inferior PV15 mm. Right superior PV16 mm. Right inferior PV17 mm. There is no evidence of the left atrial appendage clot. Left Ventricular Valve Morphology/Function: LV septal wall thickness 16 mm. LV end-diastolic volume 75 ml. LV end-systolic volume 30 ml. LVEF72 % with normal regional wall motion. Aortic valve is tri-leaflet with severe calcification and severe aortic stenosis (AUGIE 0.80 cm2.) but no significant regurgitation. Mitral valve is normal without evidence of stenosis or regurgitation. Right Ventricular Morphology/Function: RV end-diastolic volume 83 ml. RV end-systolic volume 55 ml. RVEF 61 % Pericardium: No pericardium effusion or pericardial thickening. Thoracic Aortic Dimensions: No aortic aneurysm or dissection is seen. Aortic root 3.5 cm. Sinotubular junction 2.2 cm. Mid ascending thoracic aorta 3.2 cm. Distal ascending thoracic aorta 2.9 cm. Aortic arch 2.6 cm. There is normal takeoff of the great vessels except for the left carotid which arises from the right brachiocephalic trunk as a variant. Aortic Isthmus 2.1 cm. Descending thoracic aorta 2.6 cm. Upper abdominal Aorta: 2.3 cm with moderate calcified and non-calcified atherosclerotic plaque. Celiac trunk: 6 mm with no significant stenosis. Superior mesenteric artery: 5 mm with no significant stenosis. Right renal artery: 5.1 mm with no significant stenosis. Right accessory renal artery 2.0 mm with no stenosis. Left renal artery: 5.6 mm with no significant stenosis. Inferior mesenteric artery: 3.5 mm with no significant stenosis. Infrarenal aorta: 1.3 cm with no significant atherosclerotic plaque. TAVR Report Calcified Aorta: Moderate Characterization of Aortic Root: Major aortic annulus diameter (systole): 28 mm Perpendicular minor aortic annulus diameter (systole): 22 mm Aortic annulus perimeter (systole): 78 mm Sinus of Valsalva height left coronary (diastole): 12 mm Sinus of Valsalva height non-coronary (diastole): 16 mm Sinus of Valsalva height right coronary (diastole): 17 mm Sinus of Valsalva diameter left coronary (diastole): 32 mm Sinus of Valsalva diameter non-coronary (diastole): 34 mm Sinus of Valsalva diameter right (diastole): 31 mm Maximum ascending aorta diameter at 40mm above annulus (diastole): 32 mm Aortic Root Angulation (diastole): 58 degrees Abdominal Aortic Aneurysm: No Thoracic Aortic Aneurysm: No Characterization of access vessels: Right Common Iliac: Minimum lumen diameter: 7.5 mm Percent stenosis: Minimal (<25%) Tortuosity: Mild Calcification: No Right External Iliac: Minimum lumen diameter: 7.5 mm Percent stenosis: None Tortuosity: No Calcification: No Right Femoral: Minimum lumen diameter: 7.0 mm Percent stenosis: None Tortuosity: No Calcification: No Left Common Iliac: Minimum lumen diameter: 5.8 mm Percent stenosis: Moderate (50%) Tortuosity: No Calcification: Mild Left External Iliac: Minimum lumen diameter: 7.5 mm Percent stenosis: None Tortuosity: No Calcification: No Left Femoral: Minimum lumen diameter: 7.0 mm Percent stenosis: None Tortuosity: Mild Calcification: No Aortic Bifurcation Left Lower Extremity Left internal iliac is a 5.2 mm artery which has mild calcified atherosclerotic plaque present but with no significant stenosis. Left superficial femoral is a 7 mm artery which has no significant atherosclerotic plaque present. Right Lower Extremity Right internal iliac is a 5.1 mm artery which has no significant atherosclerotic plaque present. Right superficial femoral is a 6.6 mm artery which has mild predominantly non-calcified atherosclerotic plaque present but with no significant stenosis. Non-Cardiac Findings: There are at least 3 renal (Bosniak I) cysts noted: 2 on the right kidney with the largest measuring 63 x 63 mm and 5 on the left kidney with the largest measuring 35 x 33 mm's. The ureters appears to be enlarged CONCLUSION CT coronary angiography shows multivessel severe tetlin coronary artery disease with severe stenosis in all of the major coronary arteries (details above in the report). Patent left internal mammary graft the distal left anterior descending coronary artery which has a widely patent anastomosis and no significant stenosis beyond the graft insertion. Patent saphenous vein graft to the second diagonal coronary artery which has a widely patent anastomosis and no significant stenosis beyond the graft insertion. Patent saphenous vein graft to the first obtuse marginal coronary artery which has a widely patent anastomosis and no significant stenosis beyond the graft insertion. There is significant non-obstructive plaque within the graft (40-50%) with a residual lumen of 3 mm's. Patent saphenous vein graft to the distal right coronary artery but which has severe >70% stenosis in the mid segment with a residual luminal diameter of 1.2 mm's. The anastomosis site is patent but the distal right coronary artery beyond the graft insertion and prior to the bifurcation is of small caliber and with diffuse stenosis. Moderate to severe LV septal hypertrophy (16mm) The LVEF is 72% and the RVEF is 61%. There is no evidence of left atrial appendage thrombus. Significant non-calcified atherosclerotic plaque seen throughout the descending aorta and in the peripheral vessels including a significant 50% stenosis in the left common iliac artery. STUDY QUALITY The study quality is fair. COMMENTS None. The above report was based on a dedicated Cardiovascular CTA Protocol and interpreted by a Field Service Supervisor. Should a more comprehensive assessment of non-cardiovascular findings be desired, please consult a radiologist. These images are available in the [facility] [employer] PACS system. Signed 09/30/2017 01:07 PM Aly Lea MD Performing Organization Address City/State/Zipcode Phone Number [facility] [address] [place] [address] Estimated GFR (09/25/2017 1:06 PM) GFR Non Af Amer 71 mL/min/1.73 m2 [facility] DEPARTMENT OF PATHOLOGY AND GENOMIC MEDICINE GFR Af Amer 86 mL/min/1.73 m2 [facility] DEPARTMENT OF Comment: PATHOLOGY AND GENOMIC Chronic kidney disease: <60 mL/min/1.73m2 MEDICINE Kidney failure: <15 mL/min/1.73m2 The estimated GFR is calculated from the IDMS-traceable Modification of Diet in Renal Disease Equation. The accuracy of the calculation is poor when the creatinine is normal. Calculated values >90 mL/min/1.73m2 are not reported. This equation has not been validated in children (<18 years), women, the elderly (>70 years), or ethnic groups other than Caucasians and Americans. Specimen Blood Performing Organization Address City/[facility]/Zipcode Phone Number [facility] DEPARTMENT OF PATHOLOGY AND [address] [place] [address] [facility] MEDICINE POC creatinine (09/25/2017 1:06 PM) POC creatinine 1.0 0.7 - 1.2 mg/dl [facility] DEPARTMENT OF PATHOLOGY Comment: AND [facility] MEDICINE Meter ID: [id number] Freezer Person: Jodie Up Specimen Blood Performing Organization Address [facility]/Zipcode Phone Number [facility] DEPARTMENT OF PATHOLOGY AND [address] [place] [address] Us carotid duplex (09/25/2017 11:08 AM) Narrative Performed At [facility] Vascular Ultrasound Laboratory Carotid Artery Duplex Report [address] [place] [address] For senior quality analyst purposes, the categorization of the degree of the stenosis of this exam is based on criteria described in the IAC carotid stenosis grading white paper( www.intersocietal.org/Vascul ar) and Jana Angulo, Zuri Ruth, et al. Carotid artery stenosis: davis-scale and Doppler US diagnosis--Society of Radiologists in Ultrasound Consensus Conference. Radiology. 2003 Nov; 229(2):340-6. Pat.Name:Kurtis HARDY.ID:[id number] .Date: 09/25/2017 Refer.MD:STEPAN WILDE MD Exam Time: 10:49:00 AM Study Type:Carotid DOBAge:1930,86Y Sex: MALE Sonogrphr: Manjinder Hodges. Stat.:Outpatient TapeVol: [place], CPT - 4: [id number] Echo Event ID:[id number] Order ID:[id number] Reason for Study:Pre-operative cardiovascular exam for TAVR evaluation. History of hypertension, hyperlipidemia and heart valve disease. Race:C SUMMARY: PHYSICAL ASSESSMENT BloodPulsesCarotid Pressure Carotid TemporalBruit Right 157/72 ++0 Left 151/76 ++0 CAROTID ARTERY SCAN RIGHT:There is hard plaque in the common carotid artery. There is hard and calcified plaque in the bulb extending to the ostium of the internal and external carotid arteries. Colorflow is normal. LEFT: There is soft plaque in the common carotid artery. There is hard and calcified plaque in the bulb extending to the ostium of the internal and external carotid arteries. Colorflow is normal. PRELIMINARY FINDINGS 1. Non-stenotic plaque in the common carotid artery, bilaterally. 2. <50% stenosis of the bulb and internal carotid artery, bilaterally. 3. <50% stenosis of the external carotid artery, bilaterally. PHYSICIAN INTERPRETATION 1.Bilateral carotid artery examination demonstrates plaque in the bulbs and internal carotid arteries without hemodynamically significant stenosis. (<50%) Carotid Findings:RightLeft Verteb.Flw Antegrade Antegrade Subclavian Triphasic Triphasic MEASUREMENTS: DOPPLER Left CCA Dist CCA Dist PSV56.3 cm/sCCA Dist EDV15.2 cm/ s Left CCA Mid CCA Mid PSV 73.3 cm/sCCA Mid EDV 15.2 cm/ s Left CCA Prox CCA Prox PSV46.9 cm/sCCA Prox EDV13 cm /s Left ICA Mid ICA Mid PSV 72.6 cm/Krissy Mid EDV 31.7 cm/ s Left ICA Prox ICA Prox PSV45.4 cm/Krissy Prox EDV18 cm /s Left ECA Prox ECA Prox PSV46.3 cm/sECA Prox EDV6.01 cm/ s Left Vertebral Vertebral PSV 39.4 cm/sVertebral EDV 15.4 cm/s Right CCA Dist CCA Dist PSV42.8 cm/sCCA Dist EDV14.1 cm/ s Right CCA Mid CCA Mid PSV 44.6 cm/sCCA Mid EDV 11.1 cm/ s Right CCA Prox CCA Prox PSV51.6 cm/sCCA Prox EDV12.9 cm/ s Right ICA Dist ICA Dist PSV39.9 cm/Krissy Dist EDV10.6 cm/ s Right ICA Mid ICA Mid PSV 58.6 cm/Krissy Mid EDV 24.3 cm/ s Right ICA Prox ICA Prox PSV42.1 cm/Krissy Prox EDV14 cm /s Right ECA Prox ECA Prox PSV47.6 cm/sECA Prox EDV8.22 cm/ s Right Vertebral Vertebral PSV 27.6 cm/sVertebral EDV 10.6 cm/s Left ICA Dist ICA Dist PSV62.9 cm/Krissy Dist EDV14.9 cm/ s Right ICA/CCA Ratio ICA/CCA PSV0.944 Left ICA/CCA Ratio ICA/CCA PSV0.619 Signed 09/25/2017 04:42 PM Mika Delgado MD Procedure Note Interface, Radiology Results In - 09/25/2017 4:42 PM CDT Vascular Ultrasound Laboratory Carotid Artery Duplex Report [address] [place] [address] For senior quality analyst purposes, the categorization of the degree of the stenosis of this exam is based on criteria described in the IAC carotid stenosis grading white paper( www.intersocietal.org/Vascular) and Shakira Angulo., Faraz, MaryB., et al. Carotid artery stenosis: davis-scale and Doppler US diagnosis--Society of Radiologists in Ultrasound Consensus Conference. Radiology. 2003 Nov; 229(2):340-6. Pat.Name: JUSTICE HARDY Pat.ID: [id number] .Date: 09/25/2017 Refer.MD: STEPAN WILDE MD Exam Time: 10:49:00 AM Study Type:Carotid Age: 7 1930,86Y Sex: MALE Sonogrphr: Kellen Lee RVT Pat. Stat.:Outpatient Tape Vol: [place], CPT - 4: [id number] Echo Event ID:[id number] Order ID: [id number] Reason for Study:Pre-operative cardiovascular exam for TAVR evaluation. History of hypertension, hyperlipidemia and heart valve disease. Race: C SUMMARY: PHYSICAL ASSESSMENT Blood Pulses Carotid Pressure Carotid Temporal Bruit Right 157/72 + + 0 Left 151/76 + + 0 CAROTID ARTERY SCAN RIGHT: There is hard plaque in the common carotid artery. There is hard and calcified plaque in the bulb extending to the ostium of the internal and external carotid arteries. Colorflow is normal. LEFT: There is soft plaque in the common carotid artery. There is hard and calcified plaque in the bulb extending to the ostium of the internal and external carotid arteries. Colorflow is normal. PRELIMINARY FINDINGS 1. Non-stenotic plaque in the common carotid artery, bilaterally. 2. <50% stenosis of the bulb and internal carotid artery, bilaterally. 3. <50% stenosis of the external carotid artery, bilaterally. PHYSICIAN INTERPRETATION 1. Bilateral carotid artery examination demonstrates plaque in the bulbs and internal carotid arteries without hemodynamically significant stenosis. (<50%) Carotid Findings: Right Left Verteb.Flw Antegrade Antegrade Subclavian Triphasic Triphasic MEASUREMENTS: DOPPLER Left CCA Dist CCA Dist PSV 56.3 cm/s CCA Dist EDV 15.2 cm/s Left CCA Mid CCA Mid PSV 73.3 cm/s CCA Mid EDV 15.2 cm/s Left CCA Prox CCA Prox PSV 46.9 cm/s CCA Prox EDV 13 cm/s Left ICA Mid ICA Mid PSV 72.6 cm/s ICA Mid EDV 31.7 cm/s Left ICA Prox ICA Prox PSV 45.4 cm/s ICA Prox EDV 18 cm/s Left ECA Prox ECA Prox PSV 46.3 cm/s ECA Prox EDV 6.01 cm/s Left Vertebral Vertebral PSV 39.4 cm/s Vertebral EDV 15.4 cm/s Right CCA Dist CCA Dist PSV 42.8 cm/s CCA Dist EDV 14.1 cm/s Right CCA Mid CCA Mid PSV 44.6 cm/s CCA Mid EDV 11.1 cm/s Right CCA Prox CCA Prox PSV 51.6 cm/s CCA Prox EDV 12.9 cm/s Right ICA Dist ICA Dist PSV 39.9 cm/s ICA Dist EDV 10.6 cm/s Right ICA Mid ICA Mid PSV 58.6 cm/s ICA Mid EDV 24.3 cm/s Right ICA Prox ICA Prox PSV 42.1 cm/s ICA Prox EDV 14 cm/s Right ECA Prox ECA Prox PSV 47.6 cm/s ECA Prox EDV 8.22 cm/s Right Vertebral Vertebral PSV 27.6 cm/s Vertebral EDV 10.6 cm/s Left ICA Dist ICA Dist PSV 62.9 cm/s ICA Dist EDV 14.9 cm/s Right ICA/CCA Ratio ICA/CCA PSV 0.944 Left ICA/CCA Ratio ICA/CCA PSV 0.619 Signed 09/25/2017 04:42 PM Mika Delgado MD Performing Organization Address City/State/Zipcode Phone Number [facility] [address] [place] [address] Echocardiogram complete w contrast and 3D if needed (09/18/2017 4:26 PM) Narrative Performed At [facility] Echocardiography Report Pat.Name:Kurtis HARDY.ID:[id number] .Date: 09/18/2017 Refer.MD:STEPAN ZARATE MD Exam Time: 3:48:00 PMStudy Type:Routine Echo Height:64inWeight: 134lb BSA: 1.65 m2 DOBAge:1930,86Y Sex: MALEBP:179/89 HR:79 bpm Sonogrphr: Verenice Allen, RCS, RCCS, CCT Pat. Stat.:OutpatientRoom:[facility] TapeVol: [facility], Study Status:Final Echo Event ID:[id number] Order ID:[id number] Reason for Study:Aortic Stenosis History / Clinical:Valvular Heart Disease; Aortic Stenosis Procedures:2D Echo, Colorflow Doppler Race:C SUMMARY: LV EF is hyperdynamic. Estimated EF is >70%. RV systolic function is normal. A trace of aortic regurgitation. Severe aortic valve stenosis. LV filling pressure is elevated. FINDINGS: LV: LV size is normal. Concentric left ventricular remodeling. LVEF is hyperdynamic. Overall wall motion is hyperdynamic. EstimatedEF is >70%. RV: RV size is normal. RV systolic function is normal. LA: LA volume is severely enlarged. RA: RA size is normal. AO: Aortic root diameter is mildly enlarged. JAIRO: No pericardial effusion. IAS:Interatrial septum is redundant. AV: Severe thickening and calcification of AV leaflets. A trace ofaortic regurgitation. Severe aortic valve stenosis. Estimatedmean aortic valve gradient 35 mmHg with a valve areaof 0.8 cm2 ( Peak velocity- 4 m/s; DVI 0.27/ AVAI 0.30 cm2/m2and SVI 48 ml/m2) . MV: Mild thickening and calcification of mitral leaflets. Mild mitralannular calcification. Mild eccentric mitral regurgitation. PV: No structural PV abnormalities noted. Mild pulmonic regurgitation. TV: No structural TV abnormalities noted. A trace of tricuspid regurgitation Maurer: LV relaxation is impaired. LV filling pressure is elevated. Other:Estimated PA systolic pressure is at least 32 mmHg, assuming amean RAP of 5 mmHg. MEASUREMENTS: 2D Parasternal Long [place] LVOT 2 cmLA Ds4.8 cm LVIDd3.8 cmIndex2.3 cm/m Ao An2.2 cm LVIDs1.8 cmAo Rtd 3.9 cm Index2.4 cm/m LV%fs 51 % LV Htdr854.3 g(122-174) IVSd 1.2 cmLVM Index 89.2 g/m2 LVPWd1.2 cmRWT0.6 LA Volume LA Vol82.2 yrJuqen15.8 ml/m LA Sng Plane LA Area 24.3 cm2(8.8-23.4) LA Vol81 ml Index49.1 ml/m LA LngAx 6.1 cm RA Sng Plane RA Area 16.2 cm2(8.3-19.5) RA Vol35.4 ml Index21.5 ml/m RA LngAx 6.5 cm Aorta Ao Asc 3.4 cm (2.1-3.4) DOPPLER AV For Flow/AUGIE AV pkVel 400.4 cm/s (100-170) AV AC/ET 0.4 AV mnVel 263 cm/Adam TVI95 cm AV pkPG 64.1 mmHgAVpkAcRt 4393.8 cm/s2 AV Mean G 34.9 mmHgAV IlEf1017.2 cm/s2 AV AC153 msec (83-118) AV Area0.8 cm2(3-5) AV ET361 msec LVOT For Flow LVOT Area3.1 cm2 LVOT SV 80.4 ml LVOTpkVel 82.1 cm/sHR53 bpm LVOTpkPG 2.7 mmHgLVOT CO4.3 l/min LVOTmnPG 1.5 mmHgLVOT CI2.6 l/m/m2 LVOT TVI25.6 cm MV For Flow/Valve Assess MV pkVel 122.4 cm/sMV Dec T 230 msec MV pkPG6 mmHgMV TVI37.6 cm MV Mean G1.9 mmHgMV Area P1/2t3.3 cm2(4-6) Signed 09/19/2017 12:54 PM Supriya Garcia MD Procedure Note Interface, Radiology Results In - 09/19/2017 12:54 PM CDT [facility] Echocardiography Report Pat.Name: JUSTICE HARDY Pat.ID: [id number] St.Date: 09/18/2017 Refer.MD: STEPAN ZARATE MD Exam Time: 3:48:00 PM Study Type:Routine Echo Height: 64in Weight: 134lb BSA: 1.65 m2 Age: 7 1930,86Y Sex: MALE BP: 179/89 HR: 79 bpm Sonogrphr: Verenice Allen, RCS, RCCS, CCT Pat. Stat.:Outpatient Room: [facility] Tape Vol: [facility], Study Status:Final Echo Event ID:[id number] Order ID: [id number] Reason for Study:Aortic Stenosis History / Clinical:Valvular Heart Disease; Aortic Stenosis Procedures:2D Echo, Colorflow Doppler Race: C SUMMARY: LV EF is hyperdynamic. Estimated EF is >70%. RV systolic function is normal. A trace of aortic regurgitation. Severe aortic valve stenosis. LV filling pressure is elevated. FINDINGS: LV: LV size is normal. Concentric left ventricular remodeling. LV EF is hyperdynamic. Overall wall motion is hyperdynamic. Estimated EF is >70%. RV: RV size is normal. RV systolic function is normal. LA: LA volume is severely enlarged. RA: RA size is normal. AO: Aortic root diameter is mildly enlarged. JAIRO: No pericardial effusion. IAS: Interatrial septum is redundant. AV: Severe thickening and calcification of AV leaflets. A trace of aortic regurgitation. Severe aortic valve stenosis. Estimated mean aortic valve gradient 35 mmHg with a valve area of 0.8 cm2 ( Peak velocity- 4 m/s; DVI 0.27/ AVAI 0.30 cm2/m2 and SVI 48 ml/m2) . MV: Mild thickening and calcification of mitral leaflets. Mild mitral annular calcification. Mild eccentric mitral regurgitation. PV: No structural PV abnormalities noted. Mild pulmonic regurgitation. TV: No structural TV abnormalities noted. A trace of tricuspid regurgitation Maurer: LV relaxation is impaired. LV filling pressure is elevated. Other: Estimated PA systolic pressure is at least 32 mmHg, assuming a mean RAP of 5 mmHg. MEASUREMENTS: 2D Parasternal Long [place] LVOT 2 cm LA Ds 4.8 cm LVIDd 3.8 cm Index 2.3 cm/m Ao An 2.2 cm LVIDs 1.8 cm Ao Rtd 3.9 cm Index 2.4 cm/m LV%fs 51 % LV Mass 147.3 g (122-174) IVSd 1.2 cm LVM Index 89.2 g/m2 LVPWd 1.2 cm RWT 0.6 LA Volume LA Vol 82.2 ml Index 49.8 ml/m LA Sng Plane LA Area 24.3 cm2 (8.8-23.4) LA Vol 81 ml Index 49.1 ml/m LA LngAx 6.1 cm RA Sng Plane RA Area 16.2 cm2 (8.3-19.5) RA Vol 35.4 ml Index 21.5 ml/m RA LngAx 6.5 cm Aorta Ao Asc 3.4 cm (2.1-3.4) DOPPLER AV For Flow/AUGIE AV pkVel 400.4 cm/s (100-170) AV AC/ET 0.4 AV mnVel 263 cm/s AV TVI 95 cm AV pkPG 64.1 mmHg AVpkAcRt 4393.8 cm/s2 AV Mean G 34.9 mmHg AV DeRt 1108.2 cm/s2 AV AC 153 msec (83-118) AV Area 0.8 cm2 (3-5) AV ET 361 msec LVOT For Flow LVOT Area 3.1 cm2 LVOT SV 80.4 ml LVOTpkVel 82.1 cm/s HR 53 bpm LVOTpkPG 2.7 mmHg LVOT CO 4.3 l/min LVOTmnPG 1.5 mmHg LVOT CI 2.6 l/m/m2 LVOT TVI 25.6 cm MV For Flow/Valve Assess MV pkVel 122.4 cm/s MV Dec T 230 msec MV pkPG 6 mmHg MV TVI 37.6 cm MV Mean G 1.9 mmHg MV Area P1/2t 3.3 cm2 (4-6) Signed 09/19/2017 12:54 PM Supriya Garcia MD Performing Organization Address City/State/Zipcode Phone Number [facility] [address] [place] [address] Cardiac mri valve assessment w contrast (08/07/2017 2:08 PM) Narrative Performed At [facility] C[facility] Report Name:JUSTICE HARDY :1930 Scan Date: 2017-08-07 12:53:54 Signed by Germain Mar M.D. (uid:20) 16:33:47. SUMMARY 1.Moderate LA enlargement. Mild RA enlargement. Lipomatous hypertrophy of the inter-atrial septum is present. NO intracardiac thrombus or mass. 2.Normal LV systolic function without regional wall motion abnormalities (LVEF 71%). Normal RV systolic function without regional wall motion abnormalities (RVEF 64%). 3.Limited (<50%) myocardial infarction involving the inferior and inferolateral grubbs. In addition, there is mid-septal wall non-CAD scarring present. Total scar burden is 5% of the LV. 4.Trileaflet, calcified aortic valve with severe stenosis (planimetered AUGIE 0.7 cm2, peak velocity 4.0 m/s).There is mild aortic regurgitation (RV 10 ml, RF 15%). There is mild mitral and tricuspid regurgitation. 5.The thoracic aorta is of normal caliber without stenosis, aneurysm, or dissection. Normal pulmonary venous anatomy. 6. 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 Prior median sternotomy. FINAL IMPRESSION: A.SEVERE TRILEAFLET AORTIC STENOSIS B.SUBENDOCARDIAL MYOCARDIAL INFARCTION AND NON-CAD SCARRING IS PRESENT. CORE EXAM MEASUREMENTS VOLUMETRIC ANALYSIS . . || | LV| Reference | RV| Reference | +------+-------+-------+ +-------+ + | EDV| ml| 114.2 |(94-151) | 140.4 |(84-159) | | ESV| ml|32.9 |(21-57)|51 |(13-60)| | CO | L/min |5.93 | |6.53 | | | MASS | g | 122.8 |(91-145) | | | | SV | ml|81.3 |(63-102) |89.4 |(58-112) | | EF | % | 71.19 |(59-77)| 63.68 |(57-83)| '------+-------+-------+ +-------+ ' HEART RATE:73 LV DIMENSIONS WALL THICKNESS - ANTEROSEPTAL:1.4 cm WALL THICKNESS - INFEROLATERAL:1.2 cm LV BRIAN:3.9 cm LV ESD:2.6 cm LA DIMENSIONS (LV SYSTOLE) DIAMETER:4.6 cm AREA - 2 CHAMBER:24 cm^2 LENGTH - 2 CHAMBER:5.8 cm AREA - 4 CHAMBER:29 cm^2 LENGTH - 4 CHAMBER:6.2 cm VOLUME:102 ml AORTIC ROOT DIMENSIONS DIAMETER - ANNULUS:2.7 cm DIAMETER - SINUS OF VALSALVA:3.6 cm DIAMETER - SINOTUBULAR JUNCTION:2.5 cm AORTIC ROOT SIZE:Normal CONDENSED SUMMARY LV:MILD HYPERTROPHY. CONCENTRIC HYPERTROPHY. Cavity Size is Normal. No Mass/Thrombus. RV:Normal Wall Thickness. Contractility is Normal. Cavity Size is Normal. No Mass/Thrombus. No Pacemaker/Defibrillator Wire. IVS:Normal Interventricular Septum. LA:Cavity Size is MODERATELY ENLARGED. No Mass/Thrombus. IAS:LIPOMATOUS HYPERTROPHY. RA:Cavity Size is MILDLY ENLARGED. No Mass/Thrombus. No Additional Findings. No Pacemaker/Defibrillator Wire. PER:Normal Pericardium. No Effusion. No Diastolic Collapse. PE:No Pleural Effusion. AV:Trileaflet. MODERATE THICKENING, MILD CALCIFICATION. MILD Aortic Regurgitation. Aortic Regurgitant Volume is 10 ml. Aortic Regurgitant Fraction is 14 %. SEVERE Aortic Stenosis. Planimetered AV Area is 0.7 cm^2. Peak Aortic Valve Velocity is 400 cm/sec. Peak Aortic Valve Gradient is 64.00 mmHg. AR assumed 10 cc . TV:Normal Leaflets. MILD Tricuspid Regurgitation. Tricuspid Regurgitant Volume is 15 ml. Tricuspid Regurgitant Fraction is 17 %. No Tricuspid Stenosis. TR=RVSV - PA FF. MV:Normal Leaflets. MILD Mitral Regurgitation. Mitral Regurgitant Volume is 7 ml. Mitral Regurgitant Fraction is 10 %. No Mitral Stenosis. MR=LVSV 81 - AOFF 74 MVFF=LVSV - AR. PV:Normal Leaflets. No Pulmonic Regurgitation. No Pulmonic Stenosis. 17 SEGMENT . . | Segments | Wall Motion| Hyperenhancement | Stress Perfusion | Interpretation | + + + + --+ + | Base Anterior| Normal/Hyper | None ||| | Base Anteroseptal| Normal/Hyper | 1-25%|| Non-CAD Scar | | Base Inferoseptal| Normal/Hyper | 1-25%|| Non-CAD Scar | | Base Inferior| Normal/Hyper | 26-50% || Sub-Endo ID| | Base Inferolateral | Normal/Hyper | 1-25%|| Sub-Endo ID| | Base Anterolateral | Normal/Hyper | None ||| | Mid Anterior | Normal/Hyper | None ||| | Mid Anteroseptal | Normal/Hyper | None ||| | Mid Inferoseptal | Normal/Hyper | None ||| | Mid Inferior | Normal/Hyper | None ||| | Mid Inferolateral| Normal/Hyper | 1-25%|| Sub-Endo ID| | Mid Anterolateral| Normal/Hyper | None ||| | Apical Anterior| Normal/Hyper | None ||| | Apical Septal| Normal/Hyper | None ||| | Apical Inferior| Normal/Hyper | None ||| | Apical Lateral | Normal/Hyper | None ||| | [place] | Normal/Hyper | None ||| + + + + --+ + | RV Segments| Wall Motion| Hyperenhancement | Stress Perfusion | Interpretation | + + + + --+ + | RV Basal Anterior| Normal/Hyper | None ||| | RV Basal Inferior| Normal/Hyper | None ||| | RV Mid | Normal/Hyper | None ||| | RV Apical| Normal/Hyper | None ||| ' + + + --+ ' FINDINGS INFARCT/SCAR SIZE:5 % VASCULAR SCAN INFO GENERAL SEDATION SEDATION USED?:No CONTRAST AGENT TYPE:Dotarem LOT NUMBER:[id number] EXPIRATION DATE:2018-12-27 00:00:00 VOLUME ADMINISTERED:20 ml DOSAGE FOR 0.5M:0.17 mmol/kg SERUM CREATININE:1 sCr GFR:75.48 ml/min/1.73m^2 FEMALE:No OR BLACK:No CREATININE DATE:2017-08-07 00:00:00 LAB RESULT HEMATOCRIT LEVEL:47 % HEMATOCRIT DATE:2017-08-07 00:00:00 VITALS HEIGHT:64 in HEIGHT:162.56 cm BODY WEIGHT:130.01 lbs BODY WEIGHT:58.97 kgs BSA::1.63 m^2 SYSTOLIC BP:152 mmHg DIASTOLIC BP:72 mmHg HEART RATE:62 BPM HEART RHYTHM:Sinus Rhythm PULSE SEQUENCE PULSE SEQUENCES:Single-Shot SSFP, IR GRE - Segmented, IR GRE - Single Shot, IR SSFP - Single Shot, Single Shot BB DARLINE, SSFP Cine, Phase Contrast Velocity Mapping, 3D MRA w and w/o contrast SETUP TYPE:Clinical INPATIENT:No LOCATION:[facility] INCOMPLETE SCAN:No REASON(S) FOR SCAN:Valve Assessment REFERRING PHYSICIAN:Jaclyn Tate MD TECHNICIANS:Chidi Bennett ASSISTANTS:1) Kim Barreto RN 2) Jaclyn Quezada 3) Lidia Platt RT BILLING Patient Account [id number] CPT Codes 02840, [ , ]01016, [ , ]36255 ICD10 Codes R94.30, [ , ]I35.0, [ , ]I35.1, [ , ]I35.2 Procedure Note Interface, Radiology Results In - 08/07/2017 4:34 PM [facility] C[facility] Report Name: JUSTICE HARDY : 1930 Scan Date: 2017-08-07 12:53:54 Signed by Germain Mar M.D. (uid:20) 16:33:47. SUMMARY 1. Moderate LA enlargement. Mild RA enlargement. Lipomatous hypertrophy of the inter-atrial septum is present. NO intracardiac thrombus or mass. 2. Normal LV systolic function without regional wall motion abnormalities ( LVEF 71%). Normal RV systolic function without regional wall motion abnormalities (RVEF 64%). 3. Limited (<50%) myocardial infarction involving the inferior and inferolateral grubbs. In addition, there is mid-septal wall non-CAD scarring present. Total scar burden is 5% of the LV. 4. Trileaflet, calcified aortic valve with severe stenosis (planimetered AUGIE 0.7 cm2, peak velocity 4.0 m/s). There is mild aortic regurgitation (RV 10 ml, RF 15%). There is mild mitral and tricuspid regurgitation. 5. The thoracic aorta is of normal caliber without stenosis, aneurysm, or dissection. Normal pulmonary venous anatomy. 6. 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 Prior median sternotomy. FINAL IMPRESSION: A. SEVERE TRILEAFLET AORTIC STENOSIS B. SUBENDOCARDIAL MYOCARDIAL INFARCTION AND NON-CAD SCARRING IS PRESENT. CORE EXAM MEASUREMENTS VOLUMETRIC ANALYSIS . . | | | LV | Reference | RV | Reference | +------+-------+-------+ +-------+ + | EDV | ml | 114.2 | (94-151) | 140.4 | (84-159) | | ESV | ml | 32.9 | (21-57) | 51 | (13-60) | | CO | L/min | 5.93 | | 6.53 | | | MASS | g | 122.8 | (91-145) | | | | SV | ml | 81.3 | (63-102) | 89.4 | (58-112) | | EF | % | 71.19 | (59-77) | 63.68 | (57-83) | '------+-------+-------+ +-------+ ' HEART RATE: 73 LV DIMENSIONS WALL THICKNESS - ANTEROSEPTAL: 1.4 cm WALL THICKNESS - INFEROLATERAL: 1.2 cm LV BRIAN: 3.9 cm LV ESD: 2.6 cm LA DIMENSIONS (LV SYSTOLE) DIAMETER: 4.6 cm AREA - 2 CHAMBER: 24 cm^2 LENGTH - 2 CHAMBER: 5.8 cm AREA - 4 CHAMBER: 29 cm^2 LENGTH - 4 CHAMBER: 6.2 cm VOLUME: 102 ml AORTIC ROOT DIMENSIONS DIAMETER - ANNULUS: 2.7 cm DIAMETER - SINUS OF VALSALVA: 3.6 cm DIAMETER - SINOTUBULAR JUNCTION: 2.5 cm AORTIC ROOT SIZE: Normal CONDENSED SUMMARY LV:MILD HYPERTROPHY. CONCENTRIC HYPERTROPHY. Cavity Size is Normal. No Mass/Thrombus. RV:Normal Wall Thickness. Contractility is Normal. Cavity Size is Normal. No Mass/Thrombus. No Pacemaker/Defibrillator Wire. IVS:Normal Interventricular Septum. LA:Cavity Size is MODERATELY ENLARGED. No Mass/Thrombus. IAS:LIPOMATOUS HYPERTROPHY. RA:Cavity Size is MILDLY ENLARGED. No Mass/Thrombus. No Additional Findings. No Pacemaker/Defibrillator Wire. PER:Normal Pericardium. No Effusion. No Diastolic Collapse. PE:No Pleural Effusion. AV:Trileaflet. MODERATE THICKENING, MILD CALCIFICATION. MILD Aortic Regurgitation. Aortic Regurgitant Volume is 10 ml. Aortic Regurgitant Fraction is 14 %. SEVERE Aortic Stenosis. Planimetered AV Area is 0.7 cm^2. Peak Aortic Valve Velocity is 400 cm/sec. Peak Aortic Valve Gradient is 64.00 mmHg. AR assumed 10 cc . TV:Normal Leaflets. MILD Tricuspid Regurgitation. Tricuspid Regurgitant Volume is 15 ml. Tricuspid Regurgitant Fraction is 17 %. No Tricuspid Stenosis. TR=RVSV - PA FF. MV:Normal Leaflets. MILD Mitral Regurgitation. Mitral Regurgitant Volume is 7 ml. Mitral Regurgitant Fraction is 10 %. No Mitral Stenosis. MR=LVSV 81 - AOFF 74 MVFF=LVSV - AR. PV:Normal Leaflets. No Pulmonic Regurgitation. No Pulmonic Stenosis. 17 SEGMENT . . | Segments | Wall Motion | Hyperenhancement | Stress Perfusion | Interpretation | + + + + +---- + | Base Anterior | Normal/Hyper | None | | | | Base Anteroseptal | Normal/Hyper | 1-25% | | Non -CAD Scar | | Base Inferoseptal | Normal/Hyper | 1-25% | | Non -CAD Scar | | Base Inferior | Normal/Hyper | 26-50% | | Sub -Endo ID | | Base Inferolateral | Normal/Hyper | 1-25% | | Sub -Endo ID | | Base Anterolateral | Normal/Hyper | None | | | | Mid Anterior | Normal/Hyper | None | | | | Mid Anteroseptal | Normal/Hyper | None | | | | Mid Inferoseptal | Normal/Hyper | None | | | | Mid Inferior | Normal/Hyper | None | | | | Mid Inferolateral | Normal/Hyper | 1-25% | | Sub -Endo ID | | Mid Anterolateral | Normal/Hyper | None | | | | Apical Anterior | Normal/Hyper | None | | | | Apical Septal | Normal/Hyper | None | | | | Apical Inferior | Normal/Hyper | None | | | | Apical Lateral | Normal/Hyper | None | | | | [place] | Normal/Hyper | None | | | + + + + +---- + | RV Segments | Wall Motion | Hyperenhancement | Stress Perfusion | Interpretation | + + + + +---- + | RV Basal Anterior | Normal/Hyper | None | | | | RV Basal Inferior | Normal/Hyper | None | | | | RV Mid | Normal/Hyper | None | | | | RV Apical | Normal/Hyper | None | | | ' + + + +---- ' FINDINGS INFARCT/SCAR SIZE: 5 % VASCULAR SCAN INFO GENERAL SEDATION SEDATION USED?: No CONTRAST AGENT TYPE: [employer] LOT NUMBER: [id number] EXPIRATION DATE: 2018-12-27 00:00:00 VOLUME ADMINISTERED: 20 ml DOSAGE FOR 0.5M: 0.17 mmol/kg SERUM CREATININE: 1 sCr GFR: 75.48 ml/min/1.73m^2 FEMALE: No OR BLACK: No CREATININE DATE: 2017-08-07 00:00:00 LAB RESULT HEMATOCRIT LEVEL: 47 % HEMATOCRIT DATE: 2017-08-07 00:00:00 VITALS HEIGHT: 64 in HEIGHT: 162.56 cm BODY WEIGHT: 130.01 lbs BODY WEIGHT: 58.97 kgs BSA:: 1.63 m^2 SYSTOLIC BP: 152 mmHg DIASTOLIC BP: 72 mmHg HEART RATE: 62 BPM HEART RHYTHM: Sinus Rhythm PULSE SEQUENCE PULSE SEQUENCES: Single-Shot SSFP, IR GRE - Segmented, IR GRE - Single Shot, IR SSFP - Single Shot, Single Shot BB DARLINE, SSFP Cine, Phase Contrast Velocity Mapping, 3D MRA w and w/o contrast SETUP TYPE: Clinical INPATIENT: No LOCATION: [facility] INCOMPLETE SCAN: No REASON(S) FOR SCAN: Valve Assessment REFERRING PHYSICIAN: Jaclyn Tate MD TECHNICIANS: Chidi Bennett ASSISTANTS: 1) Kim Barreto RN 2) Jaclyn Quezada 3) Lidia DOWD BILLING Patient Account [id number] CPT Codes 28041, [ , ]16406, [ , ]29410 ICD10 Codes R94.30, [ , ]I35.0, [ , ]I35.1, [ , ]I35.2 Performing Organization Address [facility] Phone Number [facility] [address] [place] [address] POC hematocrit (08/07/2017 12:51 PM) POC hematocrit 47 41 - 51 % [facility] DEPARTMENT OF PATHOLOGY AND [facility] MEDICINE Specimen Blood Performing Organization Address [facility] Phone Number [facility] DEPARTMENT OF PATHOLOGY AND [address] [id number] [facility] Creatinine level (08/07/2017 12:51 PM) Creatinine 1.0Comment: Testing performed 0.7 - 1.2 mg/dL [facility] DEPARTMENT OF PATHOLOGY on the ISTAT instrument by RN AND [employer] [id number] Specimen Plasma specimen Performing Organization Address [facility] Phone Number [facility] DEPARTMENT OF PATHOLOGY AND [address] [place] [address] GENOMIC MEDICINE after 04/12/2017 Insurance Payer Benefit Plan / Group Subscriber ID Type Phone Address MEDICARE MEDICARE PART A AND B xxxxxxxxxxx Medicare [place], [place] BCBS BCBS CHOICE xxxxxxxxx PPO PPO/[employer] EMPL PPO DEPT OF DEPT OF [id number] AFFAIRS AFFAIRS Home: [id number] [phone] [address]
--- NOTE | 2018-04-13 19:40 | RAD REPORT ---
EXAM DESCRIPTION: RAD - Chest Single View - 04/13/2018 7:32 pm CLINICAL HISTORY: CHEST PAIN Chest pain. COMPARISON: CHEST SINGLE VIEW dated 11/29/2007 FINDINGS: Portable technique limits examination quality. The lungs are grossly clear. The heart is upper limit normal in size. No displaced fractures.[place] my wires are present. Aortic atherosclerosis. IMPRESSION: No acute intrathoracic process suspected.
[2018-04-13 19:45] LABS: Absolute Lymphocytes (CBC) 1.7 K/uL (0.7-4.9); Absolute Monocytes 0.6 K/uL (0.1-1.3); Absolute Neutrophil 6.3 K/uL (1.8-8.0); Basophils % 0.6 % (0-1.3); Eosinophils % 1.9 % (0-4.4); Hematocrit 37.1 % (39.6-49.0); Lymphocytes % 19.8 % (15.3-44.8); MCH 29.6 pg (27.0-35.0); MCV 85.9 fL (80-100); MPV 9.7 fL (7.6-11.3); Monocytes % 6.4 % (3.3-12.3); RBC Red Blood Cell Count 4.32 M/uL (4.33-5.43)
[2018-04-13 19:54] LABS: Protime INR 1.18
[2018-04-13 20:29] LABS: ALT/SGPT 21 U/L (12-78); AST/SGOT 18 U/L (15-37); Albumin 3.5 g/dL (3.4-5.0); Alkaline Phosphatase 84 U/L (45-117); BUN Blood Urea Nitrogen 15 mg/dL (7-18); Bicarbonate 28 mmol/L (21-32); Bilirubin Direct < 0.1 mg/dL (0-0.2); Bilirubin Total 0.3 mg/dL (0.2-1.0); Glucose Level 104 mg/dL (74-106); Magnesium 2.1 mg/dL (1.8-2.4); NT PRO-BNP 330 pg/mL (<450); Potassium 3.7 mmol/L (3.5-5.1); Protein, Total 7.2 g/dL (6.4-8.2); Sodium Level 139 mmol/L (136-145); Troponin (Emerg Dept Use Only) < 0.02 ng/mL (0.0-0.045)
--- NOTE | 2018-04-13 20:45 | ER ---
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 Hx IN, CABG, aortic valve replacement. Pt reports pain is similar to previous IN. Transition of care: patient was not received from another setting of care. Onset of symptoms was April 13, 2018. Risk Assessment: Do you want to hurt yourself or someone else? Patient reports no desire to harm self or others. Care prior to arrival: None. 19:05 Method Of Arrival: Ambulatory hb 19:05 Acuity: ANT 3 hb 19:15 Initial Sepsis Screen: Does the patient meet any 2 criteria? No. Patient's initial ao sepsis screen is negative. Does the patient have a suspected source of infection? No. Patient's initial sepsis screen is negative. Historical: - Allergies: 19:07 Cardura; hb - PMHx: 19:07 CVA; Hypertension; Myocardial infarction; Prostate Cancer; hb - PSHx: 19:07 Bypass; aortic valve replacement; hb - Immunization history:: Adult Immunizations up to date. - Social history:: Smoking status: Patient/guardian denies using tobacco, Patient uses Patient/guardian denies using alcohol, street drugs, The patient lives with family. - Ebola Screening: : No symptoms or risks identified at this time. - Family history:: not pertinent. Screenin:15 Abuse screen: Denies threats or abuse. Denies injuries from another. Nutritional ao screening: No deficits noted. Tuberculosis screening: No symptoms or risk factors identified. Fall Risk None identified. Assessment: 19:13 General: Appears in no apparent distress. comfortable, Behavior is calm, cooperative, ao appropriate for age. Pain: Complains of pain in chest Pain does not radiate. Pain currently is 8 out of 10 on a pain scale. Quality of pain is described as pressure, Pain began 2 hours ago. Neuro: Level of Consciousness is awake, alert, obeys commands, Oriented to person, place, time, situation, Appropriate for age Moves all extremities. Full function Speech is normal, Facial symmetry appears normal. Cardiovascular: Heart tones S1 S2 Capillary refill < 3 seconds Patient's skin is warm and dry. Respiratory: Airway is patent Respiratory effort is even, unlabored, Respiratory pattern is regular, symmetrical. GI: Abdomen is round obese. : No signs and/or symptoms were reported regarding the genitourinary system. EENT: No signs and/or symptoms were reported regarding the EENT system. Derm: Skin is intact, Skin is pink, warm \T\ dry. normal, Skin temperature is warm. Musculoskeletal: Circulation, motion, and sensation intact. Range of motion: intact in all extremities. 20:20 Reassessment: Patient appears in no apparent distress at this time. Patient and/or ao family updated on plan of care and expected duration. Pain level reassessed. Patient to be admitted to hospital. Patient agree with POC. 21:27 Reassessment: Patient appears in no apparent distress at this time. Patient and/or ao family updated on plan of care and expected duration. Pain level reassessed. Patient to go to room 412. Calling report to [facility]. Vital Signs: 19:06 BP 164 / 65; Pulse 77; Resp 16; Pulse Ox 100% on R/A; Pain 7/10; hb 20:20 BP 128 / 64; Pulse 62; Resp 16; Pulse Ox 98% on R/A; ao 21:23 BP 123 / 61; Pulse 65; Resp 24; Pulse Ox 95% on R/A; Pain 0/10; ao ED Course: 18:57 Patient arrived in ED. sb2 18:58 Yoel Lea MD is Private Physician. sb2 19:00 Don Bhakta MD is Attending Physician. ma2 19:06 Triage completed. hb 19:07 Arm band placed on right wrist. hb 19:13 Percy Jimenes, BERYL is Primary Nurse. ao 19:15 Patient has correct armband on for positive identification. Fall risk band placed. ao Placed in gown. Bed in low position. Call light in reach. environmental monitoring technician on. Pulse ox on. NIBP on. 19:15 Patient maintains SpO2 saturation greater than 95% on room air. ao 19:28 X-ray completed. Portable x-ray completed in exam room. Patient tolerated procedure kw well. 19:32 XRAY Chest (1 view) In Process Unspecified. EDMS 19:41 EKG done, by ED staff, reviewed by Kemal García MD. ds4 20:44 Yoel Lea MD is Hospitalizing Provider. ma2 21:57 No provider procedures requiring assistance completed. Patient admitted, IV remains in ao place. Administered Medications: No medications were administered Outcome: 20:44 Decision to Hospitalize by Provider. ma2 21:57 Admitted to Med/surg accompanied by tech, room 412, with chart, Report called to ruy Wilkes RN 21:57 Condition: stable 21:57 Instructed on the need for admit. 21:59 Patient left the ED. ao Signatures: Dispatcher [employer] EDMS Otilia Cavanaugh Donovan ds4 Percy Jimenes, RN RN Kaye Vines RN RN hb Alzahri, Mohammad, MD MD ma2 Aleyda Will 2
--- NOTE | 2018-04-13 20:45 | EDPHYS ---
Physician Documentation [facility] Name: Benito Castaneda Age: 87 yrs Sex: Male : 1930 Arrival Date: 04/13/2018 Time: 18:57 Bed 6 Private MD: Yoel Lea R ED Physician Don Bhakta HPI: 04/13 20:20 This 87 yrs old Male presents to ER via Ambulatory with complaints of Chest ma2 Pain > 30 y/o. 20:20 The patient or guardian reports chest pain that is located primarily in the substernal ma2 area. Onset: gradually, 2 hour(s) ago. The pain does not radiate. Associated signs and symptoms: Pertinent negatives:. The chest pain is described as a heaviness. Duration: The patient or guardian reports a single episode, that is now resolved. Severity of pain: At its worst the pain was mild in the emergency department the pain is unchanged. The patient has experienced a previous episode. Historical: - Allergies: 19:07 Cardura; hb - PMHx: 19:07 CVA; Hypertension; Myocardial infarction; Prostate Cancer; hb - PSHx: 19:07 Bypass; aortic valve replacement; hb - Immunization history:: Adult Immunizations up to date. - Social history:: Smoking status: Patient/guardian denies using tobacco, Patient uses Patient/guardian denies using alcohol, street drugs, The patient lives with family. - Ebola Screening: : No symptoms or risks identified at this time. - Family history:: not pertinent. ROS: 20:20 Constitutional: Negative for fever, chills, and weight loss, Eyes: Negative for injury, ma2 pain, redness, and discharge, ENT: Negative for injury, pain, and discharge, Respiratory: Negative for shortness of breath, cough, wheezing, and pleuritic chest pain, Abdomen/GI: Negative for abdominal pain, nausea, diarrhea, and constipation. 20:20 Neuro: Negative for headache, weakness, numbness, tingling, and seizure, Allergy/Immunology: Negative for hives, rash, and allergies, Endocrine: Negative for neck swelling, polydipsia, polyuria, polyphagia, and marked weight changes. 20:20 Cardiovascular: Positive for chest pain, Negative for edema, orthopnea, paroxysmal nocturnal dyspnea. 20:20 All other systems are negative. Exam: 20:20 Constitutional: This is a well developed, well nourished patient who is awake, alert, ma2 and in no acute distress. Head/Face: Normocephalic, atraumatic. Eyes: Pupils equal round and reactive to light, extra-ocular motions intact. Lids and lashes normal. Conjunctiva and sclera are non-icteric and not injected. Cornea within normal limits. Periorbital areas with no swelling, redness, or edema. ENT: Nares patent. No nasal discharge, no septal abnormalities noted. Tympanic membranes are normal and external auditory canals are clear. Oropharynx with no redness, swelling, or masses, exudates, or evidence of obstruction, uvula midline. Mucous membranes moist. Neck: Trachea midline, no thyromegaly or masses palpated, and no cervical lymphadenopathy. Supple, full range of motion without nuchal rigidity, or vertebral point tenderness. No Meningismus. Chest/axilla: Normal chest wall appearance and motion. Nontender with no deformity. No lesions are appreciated. Cardiovascular: Regular rate and rhythm with a normal S1 and S2. No gallops, murmurs, or rubs. Normal PMI, no JVD. No pulse deficits. Respiratory: Lungs have equal breath sounds bilaterally, clear to auscultation and percussion. No rales, rhonchi or wheezes noted. No increased work of breathing, no retractions or nasal flaring. Abdomen/GI: Soft, non-tender, with normal bowel sounds. No distension or tympany. No guarding or rebound. No evidence of tenderness throughout. Vital Signs: 19:06 BP 164 / 65; Pulse 77; Resp 16; Pulse Ox 100% on R/A; Pain 7/10; hb 20:20 BP 128 / 64; Pulse 62; Resp 16; Pulse Ox 98% on R/A; ao 21:23 BP 123 / 61; Pulse 65; Resp 24; Pulse Ox 95% on R/A; Pain 0/10; ao MDM: 19:00 Patient medically screened. ma2 20:20 Differential diagnosis: abnormal EKG, chest wall pain, gastroesophageal reflux disease ma2 (GERD), stable angina, unstable angina. FABIO Risk Score: 1 - Recent [<24hrs] Severe Angina, TOTAL SCORE = 3. 20:42 Data reviewed: vital signs, nurses notes, EMS record, diagnostic data from outside [facility] facility, lab test result(s). Counseling: I had a detailed discussion with the patient and/or guardian regarding: the historical points, exam findings, and any diagnostic results supporting the discharge/admit diagnosis, the presence of at least one elevated blood pressure reading (>120/80) during this emergency department visit, the need for further work-up and treatment in the hospital. ED course: discussed with dr. Corona. 04/13 19:20 Order name: Basic Metabolic Panel; Complete Time: 20:34 ma2 04/13 19:20 Order name: CBC with Diff; Complete Time: 20:27 ma2 04/13 19:20 Order name: LFT's; Complete Time: 20:34 ma2 04/13 19:20 Order name: Magnesium; Complete Time: 20:34 ma2 04/13 19:20 Order name: NT PRO-BNP; Complete Time: 20:34 ma2 04/13 19:20 Order name: PT-INR; Complete Time: 20:27 ma2 04/13 19:20 Order name: Troponin (emerg Dept Use Only); Complete Time: 20:34 ma2 04/13 20:48 Order name: Basic Metabolic Panel EDCA 04/13 20:48 Order name: Basic Metabolic Panel EDCA 04/13 20:48 Order name: CBC with Automated Diff EDCA 04/13 20:48 Order name: CBC with Automated Diff EDCA 04/13 20:48 Order name: Troponin I EDCA 04/13 20:48 Order name: Troponin I EDCA 04/13 20:48 Order name: Troponin I EDCA 04/13 19:20 Order name: XRAY Chest (1 view); Complete Time: 20:27 ma2 04/13 19:20 Order name: EKG; Complete Time: 19:20 ma2 04/13 19:20 Order name: Cardiac monitoring; Complete Time: 19:21 ma2 04/13 19:20 Order name: EKG - Nurse/Tech; Complete Time: 19:21 ma2 04/13 19:20 Order name: IV Saline Lock; Complete Time: 19:22 ma2 04/13 19:20 Order name: Labs collected and sent; Complete Time: 19:32 ma2 04/13 19:20 Order name: O2 Per Protocol; Complete Time: 19:22 ma2 04/13 19:20 Order name: O2 Sat Monitoring; Complete Time: 19:22 [facility] 04/13 20:48 Order name: Consistent Carb (ADA) [address] EDCA 04/13 20:48 Order name: EKG Electrocardiogram EDCA 04/13 20:48 Order name: EKG Electrocardiogram EDMS 04/13 20:48 Order name: EKG Electrocardiogram EDMS 04/13 20:48 Order name: EKG Electrocardiogram EDMS Administered Medications: No medications were administered Disposition: 04/13/18 20:44 Hospitalization ordered by Yoel Lea for Observation. Preliminary diagnosis is Chest pain, unspecified. - Bed requested for Telemetry/MedSurg (observation). - Status is Observation. ao - Condition is Stable. - Problem is new. - Symptoms are unchanged. UTI on Admission? No Signatures: Dispatcher [employer] EDCA Mary Kay Bazan RN RN mw Ortiz, Alex RN Kaye Cartwright RN RN hb Alzahri, Mohammad, MD MD wi2 Corrections: (The following items were deleted from the chart) 20:58 20:44 Hospitalization Ordered by Yoel Lea MD for Observation. Preliminary diagnosis mw is Chest pain, unspecified. Bed requested for Telemetry/MedSurg (observation). Status is Observation. Condition is Stable. Problem is new. Symptoms are unchanged. UTI on Admission? No. ma2 21:59 20:58 04/13/2018 20:44 Hospitalization Ordered by Yoel Lea MD for Observation. ao Preliminary diagnosis is Chest pain, unspecified. Bed requested for Telemetry/MedSurg (observation). Status is Observation. Condition is Stable. Problem is new. Symptoms are unchanged. UTI on Admission? No. mw
[2018-04-13] MEDS ORDERED: ACETAMINOPHEN 500 MG TAB PO PRN (20:46)
[2018-04-13] MEDS ORDERED: ONDANSETRON 4 MG/2 ML VIAL IV PRN (20:46)
[2018-04-14 04:39] LABS: Absolute Lymphocytes (CBC) 1.7 K/uL (0.7-4.9); Absolute Monocytes 0.5 K/uL (0.1-1.3); Absolute Neutrophil 3.5 K/uL (1.8-8.0); Basophils % 1.1 % (0-1.3); Eosinophils % 3.3 % (0-4.4); Lymphocytes % 28.8 % (15.3-44.8); MCH 30.2 pg (27.0-35.0); MCV 85.7 fL (80-100); MPV 8.8 fL (7.6-11.3); Monocytes % 8.8 % (3.3-12.3); RBC Red Blood Cell Count 4.09 M/uL (4.33-5.43)
[2018-04-14 04:50] LABS: Potassium 3.7 mmol/L (3.5-5.1)
[2018-04-14] MEDS ORDERED: ASPIRIN EC 81 MG TAB PO SCH (09:00)
[2018-04-14] MEDS ORDERED: AMLODIPINE 10 MG TAB PO SCH (11:30)
--- NOTE | 2018-04-14 12:34 | EKG ---
Test Date: 2018-04-14 Test Time: 07:53:00 Facsimile Operator: MISAEL MEASUREMENT RESULTS: Intervals: Rate: 55 WI: 162 QRSD: 88 QT: 428 QTc: 409 [place]: P: 50 WI: 162 QRS: 0 T: 54 INTERPRETIVE STATEMENTS: Sinus bradycardia Otherwise normal ECG Compared to ECG 04/13/2018 19:07:58 Sinus rhythm no longer present Electronically Signed On 04-14-18 12:32:54 CDT by Reji Ramon
--- NOTE | 2018-04-14 12:35 | EKG ---
Test Date: 2018-04-13 Test Time: 19:07:58 Drug Counselor: DEBBIE MEASUREMENT RESULTS: Intervals: Rate: 63 WA: 156 QRSD: 84 QT: 376 QTc: 384 [place]: P: 39 WA: 156 QRS: -20 T: 25 INTERPRETIVE STATEMENTS: Normal sinus rhythm Normal ECG Compared to ECG 11/29/2007 21:54:10 Sinus bradycardia no longer present Incomplete right bundle-branch block no longer present Myocardial infarct finding no longer present Electronically Signed On 04-14-18 12:33:16 CDT by Reji Ramon
[2018-04-14 15:01] VITALS: BMI 23.5
[2018-04-14 16:35] VITALS: BP 179/75; TEMP 97.6
[2018-04-14 16:43] VITALS: O2SAT 95
[2018-04-14] MEDS ORDERED: ESZOPICLONE 1 MG TAB PO SCH (21:00)
--- NOTE | 2018-04-14 23:09 | HP ---
Date of Admission: 04/13/2018 Chief Complaint: Chest pain. History Of Present Illness: An 87-year-old male was brought to the emergency room because of left pr ecordial chest pain. There was no history of fever, chills, rigors, nausea, vomiting, or any other s ystemic symptoms. The patient had evaluation done and he is admitted for observation. Past Medical History: Positive for hypertension, coronary artery disease, and prostate cancer. Past Surgical History: Positive for coronary bypass surgery and aortic valve replacement. Review of Systems: No fever, chills, or rigors. Allergies: CARDURA. Home Medicines: Please refer to the chart. Physical Examination: General: Revealed an 87-year-old male, alert for his age. HEENT: Negative. Neck: Supple. JVD negative. Chest: Clear. Heart: Regular. Abdomen: Soft. Extremities: No edema. Neurological: Negative. Laboratory Data: Troponin, normal. CBC, normal. Assessment: 1.Chest pain. 2.Known coronary artery disease. 3.Status post coronary bypass surgery and aortic valve replacement. Plan: Pending Cardiology consultation. He will be continued on telemetry. The patient does not hav e any evidence of myocardial injury. GABRIEL/RODOLFO Voice ID: [id number]
[2018-04-15] MEDS ORDERED: ASPIRIN 325 MG TAB PO SCH (09:00)
[2018-04-15] MEDS ORDERED: TAMSULOSIN 0.4 MG SR CAP PO SCH (09:00)
== END 2018-04-14 17:08 | disposition home or self-care (01) ==
LOC: ER 18:56 → ERHOLD 20:46 → 4TH 21:40
PROVIDERS: ADMIT Internal Medicine; ATTEND Internal Medicine
DX: R07.9 Chest pain, unspecified (principal); I10 Essential (primary) hypertension; I25.10 Atherosclerotic heart disease of native coronary artery without angina pectoris; Z85.46 Personal history of malignant neoplasm of prostate; Z95.1 Presence of aortocoronary bypass graft; Z95.2 Presence of prosthetic heart valve
CPT/HCPCS: 36415; 71045; 80048 ×2; 80076; 83735; 83880; 84484 ×3; 85025 ×2; 85610; 93005 ×2; 99285; G0378 ×2

== ENCOUNTER 2020-10-26 15:04 | Emergency (ER) | payer OTHER, BC ==
--- OUTSIDE RECORDS SUMMARY | 2020-10-26 15:09 | XMS REPORT | Continuity of Care Document ---
:[address] [facility] t Address [address] [place] [address] Care Team Providers Name Role Phone NONSTAFF Primary Care Physician Unavailable ZACHARIAH SAINI Attending Clinician Unavailable JEANNINE SAINI Attending Clinician Unavailable Doctor Unassigned, [place] Attending Clinician Unavailable SAINI Admitting Clinician Unavailable Payers Payer Name Policy Type Policy Effective Date Expiration Date Sour ce Number Oziel Torres [id number] [address] [facility] 00:00:00 - Patients [facility] Medicare A & B [id number] [address] 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 Added automatic ally from request for surgery [id number] Small Problem Active [facility] St[facility] bowel [facility] - obstructio Patien t n s [facility] Nausea Problem Active [facility] Hypomagnes Problem Active [facility] Leukocytos Problem Active [facility] Hypertensi Problem Active [facility] of [facility] erotic Patient cardiovasc [facility] disease Center Abdominal Problem Active [facility] Patient [facility] Center Allergies, Adverse Reactions, Alerts Allergy Allergy Status Severity Reaction(s) Onset Inactive Treating Comm ents Source Name Type Date Date Clinician Iodine Allergy Active [facility]anc 00:00: Patient e 00 [facility] Doxazosi Allergy Active 2018-[address] [facility] [facility] to 08-16 [facility] - substanc 00:00: Patient e 00 [facility] Family History Family Member Diagnosis Comments Start Date Stop Date Source Natural brother Heart disease Jermaine simpson Mandaeism Natural father Heart disease [place] Mandaeism Natural father Hypertension [place] Mandaeism Natural mother Alzheimer's disease H joel Mandaeism Natural sister Other [place] [facility]od[facility] Social History Social Habit Start Date Stop Date Quantity Comments Source History of tobacco Current smoker [place] use Mandaeism Cigarettes smoked 2017-12-12 2017-12-12 [place] current (pack per 00:00:00 00:00:00 Methodi ) - Reported Cigarette 2017-12-12 2017-12-12 [place] pack-years 00:00:00 00:00:00 Mandaeism Tobacco use and 2017-12-12 2017-12-12 Never used [place] exposure 00:00:00 00:00:00 Mandaeism Alcohol intake 2017-12-12 2017-12-12 Current drinker [place] on 00:00:00 00:00:00 of alcohol Mandaeism (finding) Alcohol Comment 2017-12-10 2017-12-10 ocassional [place] 00:00:00 00:00:00 Mandaeism Sex [birth year] [place] 00:00:00 00:00:00 Mandaeism Smoking Status Start Date Stop Date Source Former smoker 2017-12-12 00:00:00 2017-12-12 00:00:00 [place] Mandaeism Medications Ordered Filled Start Stop Current Ordering Indication Dosage Frequency Signature Comments Components Source Medication Medication Date Date Medication? Clinician (SIG) Name Name tamsulosin 2018- Yes .4mg QD Take 0.4 [place] [address] (FLOMAX) 7-19 mg by Methodi 0.4 mg 13:35: mouth st capsule 36 daily. psyllium 2017- Yes QD Take by [place] seed, with 7-19 mouth Methodi dextrose, 13:34: nightly. st (FIBER 52 ORAL) aspirin 2018-0 Yes 81mg QD Take 1 [place] (ECOTRIN) 7-19 tablet (81 Meth marcella 81 MG 00:00: mg total) st enteric 00 by mouth coated daily. tablet eszopiclone 2017-0 Yes 2mg QD 2 mg [place] (LUNESTA) 2 3-01 nightly. Meth marcella MG tablet 00:00: st 00 omeprazole 2017-0 Yes 40mg QD 40 mg [place] (PriLOSEC) 1-19 daily. Methodi 40 MG 00:00: st capsule 00 amLODIPine 2018-0 Yes 5mg QD 5 mg every [place] (NORVASC) 5 -08 morning. Meth marcella mg tablet 00:00: st 00 Amlodipine Amlodipine Yes [address] Besylate Besylate [facility] - Patient [facility] Aspirin Aspirin Yes Daily [facility] (Aspir 81) (Aspir 81) Tal es - 81 Mg 81 Mg Patient TABLET.DR SHIPLEY. [facility] Hydrochloro Hydrochloro Yes 12.[address] thiazide thiazide [facility] - (Hydrochlor (Hydrochlor P atient othiazide*) othiazide*) s 25 Mg 25 Mg Medical TABLET TABLET [place] Tamsulosin Tamsulosin Yes .[address] [facility] - (Flomax*) (Flomax*) Patie nt 0.4 Mg CAP 0.4 Mg CAP [facility] Vital Signs Vital Name Observation Time Observation Value Comments Source BP Diastolic 2020-09-28 12:46:00 76 mm[Hg] [facility] BP Systolic 2020-09-28 12:46:00 149 mm[Hg] [facility] Oxygen saturation by 2020-09-28 12:46:00 99 /min [facility] Pulse oximetry Patients [facility] Heart Rate 2020-09-28 12:46:00 85 /min [facility] Respiratory rate 2020-09-28 12:46:00 22 /min [facility] Body Temperature 2020-09-28 12:46:00 97.7 [degF] [facility] Heart Rate 2020-09-28 08:42:00 81 /min [facility] Respiratory rate 2020-09-28 08:42:00 24 /min [facility] Body Temperature 2020-09-28 08:42:00 97.4 [degF] [facility] BP Diastolic 2020-09-28 08:42:00 60 mm[Hg] [facility] BP Systolic 2020-09-28 08:42:00 141 mm[Hg] [facility] Oxygen saturation by 2020-09-28 08:42:00 96 /min [facility] - Pulse oximetry Patients [facility] BP Diastolic 2020-09-28 08:36:00 60 mm[Hg] [facility] BP Systolic 2020-09-28 08:36:00 141 mm[Hg] [facility] Oxygen saturation by 2020-09-28 08:36:00 96 /min [facility] - Pulse oximetry Patients [facility] Heart Rate 2020-09-28 08:36:00 81 /min [facility] Respiratory rate 2020-09-28 08:36:00 24 /min [facility] Body Temperature 2020-09-28 08:36:00 97.4 [degF] [facility] Oxygen saturation by 2020-09-28 08:17:00 96 /min [facility] - Pulse oximetry Patients [facility] Heart Rate 2020-09-28 08:17:00 80 /min [facility] Respiratory rate 2020-09-28 08:17:00 20 /min [facility] Oxygen saturation by 2020-09-28 07:49:00 96 /min [facility] - Pulse oximetry Patients [facility] Heart Rate 2020-09-28 07:49:00 80 /min [facility] Respiratory rate 2020-09-28 07:49:00 20 /min [facility] BP Diastolic 2020-09-28 04:00:00 41 mm[Hg] [facility] BP Systolic 2020-09-28 04:00:00 107 mm[Hg] [facility] Oxygen saturation by 2020-09-28 04:00:00 96 /min [facility] - Pulse oximetry Patients [facility] Heart Rate 2020-09-28 04:00:00 85 /min [facility] Respiratory rate 2020-09-28 04:00:00 20 /min [facility] Body Temperature 2020-09-28 04:00:00 97.7 [degF] [facility] Oxygen saturation by 2020-09-28 02:48:00 98 /min [facility] - Pulse oximetry Patients [facility] Heart Rate 2020-09-28 02:48:00 85 /min [facility] Respiratory rate 2020-09-28 02:48:00 18 /min [facility] Oxygen saturation by 2020-09-28 02:40:00 95 /min [facility] - Pulse oximetry Patients [facility] Heart Rate 2020-09-28 02:40:00 87 /min [facility] Respiratory rate 2020-09-28 02:40:00 20 /min [facility] BP Diastolic 2020-09-28 00:00:00 59 mm[Hg] [facility] BP Systolic 2020-09-28 00:00:00 135 mm[Hg] [facility] Oxygen saturation by 2020-09-28 00:00:00 94 /min [facility] - Pulse oximetry Patients [facility] Heart Rate 2020-09-28 00:00:00 92 /min [facility] Respiratory rate 2020-09-28 00:00:00 20 /min [facility] Body Temperature 2020-09-28 00:00:00 97.8 [degF] [facility] BP Diastolic 2020-09-27 20:00:00 66 mm[Hg] [facility] BP Systolic 2020-09-27 20:00:00 156 mm[Hg] [facility] Oxygen saturation by 2020-09-27 20:00:00 99 /min [facility] - Pulse oximetry Patients [facility] Heart Rate 2020-09-27 20:00:00 99 /min [facility] Respiratory rate 2020-09-27 20:00:00 18 /min [facility] Body Temperature 2020-09-27 20:00:00 98.1 [degF] [facility] Oxygen saturation by 2020-09-27 19:53:00 100 /min [facility] - Pulse oximetry Patients [facility] Heart Rate 2020-09-27 19:53:00 96 /min [facility] Respiratory rate 2020-09-27 19:53:00 18 /min [facility] Oxygen saturation by 2020-09-27 19:45:00 97 /min [facility] - Pulse oximetry Patients [facility] Heart Rate 2020-09-27 19:45:00 99 /min [facility] Respiratory rate 2020-09-27 19:45:00 20 /min [facility] BP Diastolic 2020-09-27 15:21:00 66 mm[Hg] [facility] BP Systolic 2020-09-27 15:21:00 159 mm[Hg] [facility] Oxygen saturation by 2020-09-27 15:21:00 95 /min [facility] - Pulse oximetry Patients [facility] Heart Rate 2020-09-27 15:21:00 103 /min [facility] Respiratory rate 2020-09-27 15:21:00 20 /min [facility] Body Temperature 2020-09-27 15:21:00 98.5 [degF] [facility] Oxygen saturation by 2020-09-27 14:45:00 99 /min [facility] - Pulse oximetry Patients [facility] Heart Rate 2020-09-27 14:45:00 103 /min [facility] Respiratory rate 2020-09-27 14:45:00 20 /min [facility] Oxygen saturation by 2020-09-27 14:30:00 95 /min [facility] - Pulse oximetry Patients [facility] Heart Rate 2020-09-27 14:30:00 103 /min [facility] Respiratory rate 2020-09-27 14:30:00 20 /min [facility] BP Diastolic 2020-09-27 11:13:00 56 mm[Hg] [facility] BP Systolic 2020-09-27 11:13:00 123 mm[Hg] [facility] Oxygen saturation by 2020-09-27 11:13:00 99 /min [facility] - Pulse oximetry Patients [facility] Heart Rate 2020-09-27 11:13:00 88 /min [facility] Respiratory rate 2020-09-27 11:13:00 16 /min [facility] Body Temperature 2020-09-27 11:13:00 98.4 [degF] [facility] BP Diastolic 2020-09-27 08:15:00 51 mm[Hg] [facility] BP Systolic 2020-09-27 08:15:00 116 mm[Hg] [facility] Oxygen saturation by 2020-09-27 08:15:00 95 /min [facility] - Pulse oximetry Patients [facility] Heart Rate 2020-09-27 08:15:00 105 /min [facility] Respiratory rate 2020-09-27 08:15:00 16 /min [facility] Body Temperature 2020-09-27 08:15:00 97.6 [degF] [facility] BP Diastolic 2020-09-27 07:58:00 51 mm[Hg] [facility] BP Systolic 2020-09-27 07:58:00 116 mm[Hg] [facility] Oxygen saturation by 2020-09-27 07:58:00 95 /min [facility] - Pulse oximetry Patients [facility] Heart Rate 2020-09-27 07:58:00 105 /min [facility] Respiratory rate 2020-09-27 07:58:00 16 /min [facility] Body Temperature 2020-09-27 07:58:00 97.6 [degF] [facility] Oxygen saturation by 2020-09-27 07:15:00 99 /min [facility] - Pulse oximetry Patients [facility] Heart Rate 2020-09-27 07:15:00 105 /min [facility] Respiratory rate 2020-09-27 07:15:00 16 /min [facility] Oxygen saturation by 2020-09-27 07:00:00 95 /min [facility] - Pulse oximetry Patients [facility] Heart Rate 2020-09-27 07:00:00 105 /min [facility] Respiratory rate 2020-09-27 07:00:00 16 /min [facility] Oxygen saturation by 2020-09-27 00:05:00 100 /min [facility] - Pulse oximetry Patients [facility] Heart Rate 2020-09-27 00:05:00 91 /min [facility] Respiratory rate 2020-09-27 00:05:00 20 /min [facility] Oxygen saturation by 2020-09-26 23:50:00 98 /min [facility] - Pulse oximetry Patients [facility] Heart Rate 2020-09-26 23:50:00 89 /min [facility] Respiratory rate 2020-09-26 23:50:00 20 /min [facility] BP Diastolic 2020-09-26 20:36:00 69 mm[Hg] [facility] BP Systolic 2020-09-26 20:36:00 114 mm[Hg] [facility] Oxygen saturation by 2020-09-26 20:36:00 98 /min [facility] - Pulse oximetry Patients [facility] Heart Rate 2020-09-26 20:36:00 84 /min [facility] Respiratory rate 2020-09-26 20:36:00 18 /min [facility] [place] Body Temperature 2020-09-26 20:36:00 98.1 [degF] [facility] BP Diastolic 2020-09-26 20:00:00 80 mm[Hg] [facility] BP Systolic 2020-09-26 20:00:00 142 mm[Hg] [facility] Oxygen saturation by 2020-09-26 20:00:00 100 /min [facility] - Pulse oximetry Patients [facility] Heart Rate 2020-09-26 20:00:00 89 /min [facility] Respiratory rate 2020-09-26 20:00:00 21 /min [facility] Body Temperature 2020-09-26 20:00:00 98.3 [degF] [facility] BP Diastolic 2020-09-26 16:11:00 75 mm[Hg] [facility] BP Systolic 2020-09-26 16:11:00 151 mm[Hg] [facility] Oxygen saturation by 2020-09-26 16:11:00 100 /min [facility] - Pulse oximetry Patients [facility] Heart Rate 2020-09-26 16:11:00 89 /min [facility] Respiratory rate 2020-09-26 16:11:00 21 /min [facility] Body Temperature 2020-09-26 16:11:00 98.3 [degF] [facility] Oxygen saturation by 2020-09-26 13:10:00 96 /min [facility] - Pulse oximetry Patients [facility] Heart Rate 2020-09-26 13:10:00 94 /min [facility] Respiratory rate 2020-09-26 13:10:00 16 /min [facility] Oxygen saturation by 2020-09-26 12:55:00 96 /min [facility] - Pulse oximetry Patients [facility] Heart Rate 2020-09-26 12:55:00 94 /min [facility] Respiratory rate 2020-09-26 12:55:00 16 /min [facility] Oxygen saturation by 2020-09-26 12:35:00 96 /min [facility] - Pulse oximetry Patients [facility] Heart Rate 2020-09-26 12:35:00 94 /min [facility] Respiratory rate 2020-09-26 12:35:00 16 /min [facility] BP Diastolic 2020-09-26 12:12:00 66 mm[Hg] [facility] BP Systolic 2020-09-26 12:12:00 113 mm[Hg] [facility] Oxygen saturation by 2020-09-26 12:12:00 98 /min [facility] - Pulse oximetry Patients [facility] Heart Rate 2020-09-26 12:12:00 100 /min [facility] Respiratory rate 2020-09-26 12:12:00 26 /min [facility] Body Temperature 2020-09-26 12:12:00 98.0 [degF] [facility] BP Diastolic 2020-09-26 09:22:00 59 mm[Hg] [facility] BP Systolic 2020-09-26 09:22:00 113 mm[Hg] [facility] Oxygen saturation by 2020-09-26 09:22:00 98 /min [facility] - Pulse oximetry Patients [facility] Heart Rate 2020-09-26 09:22:00 99 /min [facility] Respiratory rate 2020-09-26 09:22:00 26 /min [facility] Body Temperature 2020-09-26 09:22:00 97.4 [degF] [facility] Oxygen saturation by 2020-09-26 08:50:00 98 /min [facility] - Pulse oximetry Patients [facility] Heart Rate 2020-09-26 08:50:00 99 /min [facility] Respiratory rate 2020-09-26 08:50:00 26 /min [facility] Oxygen saturation by 2020-09-26 08:35:00 98 /min [facility] - Pulse oximetry Patients [facility] Heart Rate 2020-09-26 08:35:00 99 /min [facility] Respiratory rate 2020-09-26 08:35:00 26 /min [facility] BP Diastolic 2020-09-26 07:58:00 59 mm[Hg] [facility] BP Systolic 2020-09-26 07:58:00 113 mm[Hg] [facility] Oxygen saturation by 2020-09-26 07:58:00 98 /min [facility] - Pulse oximetry Patients [facility] Heart Rate 2020-09-26 07:58:00 99 /min [facility] Respiratory rate 2020-09-26 07:58:00 26 /min [facility] Body Temperature 2020-09-26 07:58:00 97.4 [degF] [facility] BP Diastolic 2020-09-26 04:00:00 40 mm[Hg] [facility] BP Systolic 2020-09-26 04:00:00 112 mm[Hg] [facility] Oxygen saturation by 2020-09-26 04:00:00 98 /min [facility] - Pulse oximetry Patients [facility] Heart Rate 2020-09-26 04:00:00 99 /min [facility] Respiratory rate 2020-09-26 04:00:00 20 /min [facility] Body Temperature 2020-09-26 04:00:00 97.0 [degF] [facility] Oxygen saturation by 2020-09-25 20:08:00 100 /min [facility] - Pulse oximetry Patients [facility] Heart Rate 2020-09-25 20:08:00 97 /min [facility] Respiratory rate 2020-09-25 20:08:00 20 /min [facility] BP Diastolic 2020-09-25 20:00:00 61 mm[Hg] [facility] BP Systolic 2020-09-25 20:00:00 124 mm[Hg] [facility] Oxygen saturation by 2020-09-25 20:00:00 97 /min [facility] - Pulse oximetry Patients [facility] Heart Rate 2020-09-25 20:00:00 99 /min [facility] Respiratory rate 2020-09-25 20:00:00 18 /min [facility] Body Temperature 2020-09-25 20:00:00 97.9 [degF] [facility] Oxygen saturation by 2020-09-25 19:53:00 97 /min [facility] - Pulse oximetry Patients [facility] Heart Rate 2020-09-25 19:53:00 94 /min [facility] Respiratory rate 2020-09-25 19:53:00 20 /min [facility] BP Diastolic 2020-09-25 15:48:00 61 mm[Hg] [facility] BP Systolic 2020-09-25 15:48:00 124 mm[Hg] [facility] Oxygen saturation by 2020-09-25 15:48:00 97 /min [facility] - Pulse oximetry Patients [facility] Heart Rate 2020-09-25 15:48:00 99 /min [facility] Respiratory rate 2020-09-25 15:48:00 18 /min [facility] Body Temperature 2020-09-25 15:48:00 98.0 [degF] [facility] Oxygen saturation by 2020-09-25 12:40:00 97 /min [facility] - Pulse oximetry Patients [facility] Heart Rate 2020-09-25 12:40:00 109 /min [facility] Respiratory rate 2020-09-25 12:40:00 16 /min [facility] Oxygen saturation by 2020-09-25 12:39:00 97 /min [facility] - Pulse oximetry Patients [facility] Heart Rate 2020-09-25 12:39:00 98 /min [facility] Respiratory rate 2020-09-25 12:39:00 22 /min [facility] BP Diastolic 2020-09-25 11:14:00 72 mm[Hg] [facility] BP Systolic 2020-09-25 11:14:00 98 mm[Hg] [facility] Oxygen saturation by 2020-09-25 11:14:00 100 /min [facility] - Pulse oximetry Patients [facility] Heart Rate 2020-09-25 11:14:00 98 /min [facility] Respiratory rate 2020-09-25 11:14:00 22 /min [facility] Body Temperature 2020-09-25 11:14:00 97.8 [degF] [facility] BP Diastolic 2020-09-25 09:18:00 62 mm[Hg] [facility] BP Systolic 2020-09-25 09:18:00 135 mm[Hg] [facility] Oxygen saturation by 2020-09-25 09:18:00 98 /min [facility] - Pulse oximetry Patients [facility] Heart Rate 2020-09-25 09:18:00 96 /min [facility] Respiratory rate 2020-09-25 09:18:00 18 /min [facility] Body Temperature 2020-09-25 09:18:00 97.9 [degF] [facility] Oxygen saturation by 2020-09-25 08:35:00 98 /min [facility] - Pulse oximetry Patients [facility] Heart Rate 2020-09-25 08:35:00 96 /min [facility] Respiratory rate 2020-09-25 08:35:00 18 /min [facility] Oxygen saturation by 2020-09-25 08:20:00 98 /min [facility] - Pulse oximetry Patients [facility] Heart Rate 2020-09-25 08:20:00 96 /min [facility] Respiratory rate 2020-09-25 08:20:00 18 /min [facility] BP Diastolic 2020-09-25 07:33:00 62 mm[Hg] [facility] [facility] BP Systolic 2020-09-25 07:33:00 135 mm[Hg] [facility] Oxygen saturation by 2020-09-25 07:33:00 98 /min [facility] Heart Rate 2020-09-25 07:33:00 96 /min [facility] Respiratory rate 2020-09-25 07:33:00 18 /min [facility] Body Temperature 2020-09-25 07:33:00 97.9 [degF] [facility] BP Diastolic 2020-09-25 04:00:00 69 mm[Hg] [facility] BP Systolic 2020-09-25 04:00:00 121 mm[Hg] [facility] Oxygen saturation by 2020-09-25 04:00:00 97 /min [facility] Heart Rate 2020-09-25 04:00:00 83 /min [facility] Respiratory rate 2020-09-25 04:00:00 18 /min [facility] Body Temperature 2020-09-25 04:00:00 97.7 [degF] [facility] BP Diastolic 2020-09-24 23:59:00 94 mm[Hg] [facility] BP Systolic 2020-09-24 23:59:00 151 mm[Hg] [facility] Oxygen saturation by 2020-09-24 23:59:00 99 /min [facility] Heart Rate 2020-09-24 23:59:00 97 /min [facility] Respiratory rate 2020-09-24 23:59:00 17 /min [facility] Body Temperature 2020-09-24 23:59:00 97.6 [degF] [facility] BP Diastolic 2020-09-24 20:32:00 92 mm[Hg] [facility] BP Systolic 2020-09-24 20:32:00 165 mm[Hg] [facility] Oxygen saturation by 2020-09-24 20:32:00 94 /min [facility] Heart Rate 2020-09-24 20:32:00 112 /min [facility] Respiratory rate 2020-09-24 20:32:00 18 /min [facility] Body Temperature 2020-09-24 20:32:00 97.7 [degF] [facility] Oxygen saturation by 2020-09-24 20:25:00 98 /min [facility] Heart Rate 2020-09-24 20:25:00 100 /min [facility] Respiratory rate 2020-09-24 20:25:00 20 /min [facility] Oxygen saturation by 2020-09-24 20:10:00 95 /min [facility] Heart Rate 2020-09-24 20:10:00 102 /min [facility] Respiratory rate 2020-09-24 20:10:00 20 /min [facility] BP Diastolic 2020-09-24 20:00:00 92 mm[Hg] [facility] BP Systolic 2020-09-24 20:00:00 165 mm[Hg] [facility] Oxygen saturation by 2020-09-24 20:00:00 94 /min [facility] Heart Rate 2020-09-24 20:00:00 112 /min [facility] Respiratory rate 2020-09-24 20:00:00 18 /min [facility] Body Temperature 2020-09-24 20:00:00 97.7 [degF] [facility] BP Diastolic 2020-09-24 17:13:00 71 mm[Hg] [facility] BP Systolic 2020-09-24 17:13:00 129 mm[Hg] [facility] Oxygen saturation by 2020-09-24 17:13:00 100 /min [facility] Heart Rate 2020-09-24 17:13:00 94 /min [facility] Respiratory rate 2020-09-24 17:13:00 16 /min [facility] Body Temperature 2020-09-24 17:13:00 97.7 [degF] [facility] Oxygen saturation by 2020-09-24 14:00:00 100 /min [facility] Heart Rate 2020-09-24 14:00:00 94 /min [facility] Respiratory rate 2020-09-24 14:00:00 16 /min [facility] Oxygen saturation by 2020-09-24 13:45:00 100 /min [facility] Heart Rate 2020-09-24 13:45:00 94 /min [facility] Respiratory rate 2020-09-24 13:45:00 16 /min [facility] BP Diastolic 2020-09-24 08:41:00 59 mm[Hg] [facility] BP Systolic 2020-09-24 08:41:00 142 mm[Hg] [facility] Oxygen saturation by 2020-09-24 08:41:00 100 /min [facility] Heart Rate 2020-09-24 08:41:00 94 /min [facility] Respiratory rate 2020-09-24 08:41:00 16 /min [facility] Body Temperature 2020-09-24 08:41:00 97.7 [degF] [facility] BP Diastolic 2020-09-24 08:30:00 59 mm[Hg] [facility] BP Systolic 2020-09-24 08:30:00 142 mm[Hg] [facility] Oxygen saturation by 2020-09-24 08:30:00 95 /min [facility] Heart Rate 2020-09-24 08:30:00 94 /min [facility] Respiratory rate 2020-09-24 08:30:00 18 /min [facility] Body Temperature 2020-09-24 08:30:00 98.6 [degF] [facility] Oxygen saturation by 2020-09-24 06:50:00 100 /min [facility] Heart Rate 2020-09-24 06:50:00 91 /min [facility] Respiratory rate 2020-09-24 06:50:00 16 /min [facility] Oxygen saturation by 2020-09-24 06:35:00 97 /min [facility] Heart Rate 2020-09-24 06:35:00 87 /min [facility] Respiratory rate 2020-09-24 06:35:00 16 /min [facility] BP Diastolic 2020-09-24 04:00:00 64 mm[Hg] [facility] BP Systolic 2020-09-24 04:00:00 137 mm[Hg] [facility] Oxygen saturation by 2020-09-24 04:00:00 96 /min [facility] Heart Rate 2020-09-24 04:00:00 88 /min [facility] Respiratory rate 2020-09-24 04:00:00 18 /min [facility] Body Temperature 2020-09-24 04:00:00 97.7 [degF] [facility] Oxygen saturation by 2020-09-24 01:18:00 97 /min [facility] Heart Rate 2020-09-24 01:18:00 91 /min [facility] Respiratory rate 2020-09-24 01:18:00 18 /min [facility] Oxygen saturation by 2020-09-24 01:10:00 94 /min [facility] Heart Rate 2020-09-24 01:10:00 89 /min [facility] Respiratory rate 2020-09-24 01:10:00 16 /min [facility] BP Diastolic 2020-09-24 00:00:00 60 mm[Hg] [facility] BP Systolic 2020-09-24 00:00:00 154 mm[Hg] [facility] Oxygen saturation by 2020-09-24 00:00:00 94 /min [facility] Heart Rate 2020-09-24 00:00:00 92 /min [facility] Respiratory rate 2020-09-24 00:00:00 18 /min [facility] Body Temperature 2020-09-24 00:00:00 98.5 [degF] [facility] BP Diastolic 2020-09-23 21:42:00 83 mm[Hg] [facility] BP Systolic 2020-09-23 21:42:00 146 mm[Hg] [facility] O[facility] by 2020-09-23 21:42:00 94 /min [facility] Heart Rate 2020-09-23 21:42:00 105 /min [facility] Respiratory rate 2020-09-23 21:42:00 18 /min [facility] Body Temperature 2020-09-23 21:42:00 97.9 [degF] [facility] BP Diastolic 2020-09-23 20:00:00 83 mm[Hg] [facility] BP Systolic 2020-09-23 20:00:00 146 mm[Hg] [facility] Oxygen saturation by 2020-09-23 20:00:00 94 /min [facility] Heart Rate 2020-09-23 20:00:00 105 /min [facility] Respiratory rate 2020-09-23 20:00:00 18 /min [facility] Body Temperature 2020-09-23 20:00:00 97.9 [degF] [facility] Oxygen saturation by 2020-09-23 19:18:00 99 /min [facility] Heart Rate 2020-09-23 19:18:00 101 /min [facility] Respiratory rate 2020-09-23 19:18:00 22 /min [facility] Oxygen saturation by 2020-09-23 19:10:00 94 /min [facility] Heart Rate 2020-09-23 19:10:00 98 /min [facility] Respiratory rate 2020-09-23 19:10:00 20 /min [facility] BP Diastolic 2020-09-23 16:11:00 64 mm[Hg] [facility] BP Systolic 2020-09-23 16:11:00 135 mm[Hg] [facility] Oxygen saturation by 2020-09-23 16:11:00 97 /min [facility] Heart Rate 2020-09-23 16:11:00 96 /min [facility] Respiratory rate 2020-09-23 16:11:00 18 /min [facility] Body Temperature 2020-09-23 16:11:00 97.8 [degF] [facility] Oxygen saturation by 2020-09-23 14:15:00 98 /min [facility] Heart Rate 2020-09-23 14:15:00 83 /min [facility] Respiratory rate 2020-09-23 14:15:00 20 /min [facility] Oxygen saturation by 2020-09-23 14:00:00 98 /min [facility] Heart Rate 2020-09-23 14:00:00 83 /min [facility] Respiratory rate 2020-09-23 14:00:00 20 /min [facility] BP Diastolic 2020-09-23 08:50:00 63 mm[Hg] [facility] BP Systolic 2020-09-23 08:50:00 142 mm[Hg] [facility] Oxygen saturation by 2020-09-23 08:50:00 98 /min [facility] Heart Rate 2020-09-23 08:50:00 94 /min [facility] Respiratory rate 2020-09-23 08:50:00 18 /min [facility] Body Temperature 2020-09-23 08:50:00 97.3 [degF] [facility] BP Diastolic 2020-09-23 08:39:00 63 mm[Hg] [facility] BP Systolic 2020-09-23 08:39:00 142 mm[Hg] [facility] Oxygen saturation by 2020-09-23 08:39:00 100 /min [facility] Heart Rate 2020-09-23 08:39:00 94 /min [facility] Respiratory rate 2020-09-23 08:39:00 18 /min [facility] Body Temperature 2020-09-23 08:39:00 97.4 [degF] [facility] Oxygen saturation by 2020-09-23 06:45:00 100 /min [facility] Heart Rate 2020-09-23 06:45:00 94 /min [facility] Respiratory rate 2020-09-23 06:45:00 18 /min [facility] Oxygen saturation by 2020-09-23 06:30:00 100 /min [facility] Heart Rate 2020-09-23 06:30:00 94 /min [facility] Respiratory rate 2020-09-23 06:30:00 18 /min [facility] BP Diastolic 2020-09-23 04:30:00 75 mm[Hg] [facility] BP Systolic 2020-09-23 04:30:00 168 mm[Hg] [facility] Oxygen saturation by 2020-09-23 04:30:00 98 /min [facility] Heart Rate 2020-09-23 04:30:00 87 /min [facility] Respiratory rate 2020-09-23 04:30:00 18 /min [facility] [place] Body Temperature 2020-09-23 04:30:00 97.6 [degF] [facility] Oxygen saturation by 2020-09-23 00:40:00 94 /min [facility] Heart Rate 2020-09-23 00:40:00 81 /min [facility] Respiratory rate 2020-09-23 00:40:00 20 /min [facility] BP Diastolic 2020-09-23 00:23:00 76 mm[Hg] [facility] BP Systolic 2020-09-23 00:23:00 141 mm[Hg] [facility] Oxygen saturation by 2020-09-23 00:23:00 94 /min [facility] Heart Rate 2020-09-23 00:23:00 81 /min [facility] Respiratory rate 2020-09-23 00:23:00 18 /min [facility] Body Temperature 2020-09-23 00:23:00 98.1 [degF] [facility] BP Diastolic 2020-09-22 20:04:00 81 mm[Hg] [facility] BP Systolic 2020-09-22 20:04:00 158 mm[Hg] [facility] Oxygen saturation by 2020-09-22 20:04:00 95 /min [facility] Heart Rate 2020-09-22 20:04:00 95 /min [facility] Respiratory rate 2020-09-22 20:04:00 18 /min [facility] Body Temperature 2020-09-22 20:04:00 97.6 [degF] [facility] Oxygen saturation by 2020-09-22 20:02:00 98 /min [facility] Heart Rate 2020-09-22 20:02:00 94 /min [facility] Respiratory rate 2020-09-22 20:02:00 20 /min [facility] Oxygen saturation by 2020-09-22 19:47:00 96 /min [facility] Heart Rate 2020-09-22 19:47:00 95 /min [facility] Respiratory rate 2020-09-22 19:47:00 20 /min [facility] Oxygen saturation by 2020-09-22 15:48:00 100 /min [facility] Heart Rate 2020-09-22 15:48:00 89 /min [facility] Respiratory rate 2020-09-22 15:48:00 24 /min [facility] BP Diastolic 2020-09-22 15:40:00 57 mm[Hg] [facility] BP Systolic 2020-09-22 15:40:00 143 mm[Hg] [facility] Oxygen saturation by 2020-09-22 15:40:00 98 /min [facility] Heart Rate 2020-09-22 15:40:00 90 /min [facility] Respiratory rate 2020-09-22 15:40:00 22 /min [facility] Body Temperature 2020-09-22 15:40:00 97.6 [degF] [facility] Oxygen saturation by 2020-09-22 15:33:00 96 /min [facility] Heart Rate 2020-09-22 15:33:00 88 /min [facility] Respiratory rate 2020-09-22 15:33:00 24 /min [facility] BP Diastolic 2020-09-22 11:44:00 65 mm[Hg] [facility] BP Systolic 2020-09-22 11:44:00 165 mm[Hg] [facility] Oxygen saturation by 2020-09-22 11:44:00 100 /min [facility] Heart Rate 2020-09-22 11:44:00 81 /min [facility] Respiratory rate 2020-09-22 11:44:00 23 /min [facility] Body Temperature 2020-09-22 11:44:00 97.9 [degF] [facility] Oxygen saturation by 2020-09-22 11:25:00 100 /min [facility] Heart Rate 2020-09-22 11:25:00 88 /min [facility] Oxygen saturation by 2020-09-22 11:10:00 96 /min [facility] Heart Rate 2020-09-22 11:10:00 84 /min [facility] Respiratory rate 2020-09-22 11:10:00 24 /min [facility] BP Diastolic 2020-09-22 09:27:00 61 mm[Hg] [facility] BP Systolic 2020-09-22 09:27:00 165 mm[Hg] [facility] Oxygen saturation by 2020-09-22 09:27:00 94 /min [facility] Heart Rate 2020-09-22 09:27:00 84 /min [facility] Respiratory rate 2020-09-22 09:27:00 22 /min [facility] Body Temperature 2020-09-22 09:27:00 98.0 [degF] [facility] BP Diastolic 2020-09-22 08:00:00 61 mm[Hg] [facility] BP Systolic 2020-09-22 08:00:00 165 mm[Hg] [facility] Oxygen saturation by 2020-09-22 08:00:00 94 /min [facility] Heart Rate 2020-09-22 08:00:00 84 /min [facility] Respiratory rate 2020-09-22 08:00:00 22 /min [facility] Body Temperature 2020-09-22 08:00:00 98.0 [degF] [facility] BP Diastolic 2020-09-22 03:50:00 72 mm[Hg] [facility] BP Systolic 2020-09-22 03:50:00 144 mm[Hg] [facility] Oxygen saturation by 2020-09-22 03:50:00 97 /min [facility] Heart Rate 2020-09-22 03:50:00 93 /min [facility] Respiratory rate 2020-09-22 03:50:00 24 /min [facility] Body Temperature 2020-09-22 03:50:00 97.9 [degF] [facility] Oxygen saturation by 2020-09-22 02:17:00 100 /min [facility] Heart Rate 2020-09-22 02:17:00 92 /min [facility] Respiratory rate 2020-09-22 02:17:00 20 /min [facility] Oxygen saturation by 2020-09-22 02:02:00 100 /min [facility] Heart Rate 2020-09-22 02:02:00 88 /min [facility] Respiratory rate 2020-09-22 02:02:00 20 /min [facility] BP Diastolic 2020-09-22 00:02:00 64 mm[Hg] [facility] BP Systolic 2020-09-22 00:02:00 139 mm[Hg] [facility] Oxygen saturation by 2020-09-22 00:02:00 100 /min [facility] Heart Rate 2020-09-22 00:02:00 72 /min [facility] Respiratory rate 2020-09-22 00:02:00 20 /min [facility] Body Temperature 2020-09-22 00:02:00 98.4 [degF] [facility] BP Diastolic 2020-09-21 20:07:00 72 mm[Hg] [facility] BP Systolic 2020-09-21 20:07:00 147 mm[Hg] [facility] Oxygen saturation by 2020-09-21 20:07:00 96 /min [facility] Heart Rate 2020-09-21 20:07:00 84 /min [facility] Respiratory rate 2020-09-21 20:07:00 24 /min [facility] Body Temperature 2020-09-21 20:07:00 98.6 [degF] [facility] Oxygen saturation by 2020-09-21 20:02:00 97 /min [facility] Heart Rate 2020-09-21 20:02:00 80 /min [facility] Respiratory rate 2020-09-21 20:02:00 18 /min [facility] BP Diastolic 2020-09-21 20:00:00 96 mm[Hg] [facility] BP Systolic 2020-09-21 20:00:00 135 mm[Hg] [facility] Oxygen saturation by 2020-09-21 20:00:00 95 /min [facility] Heart Rate 2020-09-21 20:00:00 78 /min [facility] Respiratory rate 2020-09-21 20:00:00 18 /min [facility] Body Temperature 2020-09-21 20:00:00 98.4 [degF] [facility] BP Diastolic 2020-09-21 16:00:00 96 mm[Hg] [facility] BP Systolic 2020-09-21 16:00:00 135 mm[Hg] [facility] Oxygen saturation by 2020-09-21 16:00:00 95 /min [facility] Heart Rate 2020-09-21 16:00:00 78 /min [facility] Respiratory rate 2020-09-21 16:00:00 18 /min [facility] Body Temperature 2020-09-21 16:00:00 98.4 [degF] [facility] BP Diastolic 2020-09-21 13:02:00 90 mm[Hg] [facility] BP Systolic 2020-09-21 13:02:00 201 mm[Hg] [facility] Oxygen saturation by 2020-09-21 13:02:00 96 /min [facility] Heart Rate 2020-09-21 13:02:00 70 /min [facility] Respiratory rate 2020-09-21 13:02:00 18 /min [facility] [place] Body Temperature 2020-09-21 13:02:00 98.3 [degF] [facility] Oxygen saturation by 2020-09-21 10:15:00 96 /min [facility] Heart Rate 2020-09-21 10:15:00 72 /min [facility] Respiratory rate 2020-09-21 10:15:00 18 /min [facility] BP Diastolic 2020-09-21 09:08:00 63 mm[Hg] [facility] [place] BP Systolic 2020-09-21 09:08:00 150 mm[Hg] [facility] Oxygen saturation by 2020-09-21 09:08:00 95 /min [facility] Heart Rate 2020-09-21 09:08:00 63 /min [facility] Respiratory rate 2020-09-21 09:08:00 17 /min [facility] [place] Body Temperature 2020-09-21 09:08:00 98.0 [degF] [facility] BP Diastolic 2020-09-21 08:58:00 63 mm[Hg] [facility] BP Systolic 2020-09-21 08:58:00 150 mm[Hg] [facility] Oxygen saturation by 2020-09-21 08:58:00 95 /min [facility] Heart Rate 2020-09-21 08:58:00 63 /min [facility] Respiratory rate 2020-09-21 08:58:00 17 /min [facility] Body Temperature 2020-09-21 08:58:00 98.0 [degF] [facility] BP Diastolic 2020-09-21 07:38:00 63 mm[Hg] [facility] BP Systolic 2020-09-21 07:38:00 150 mm[Hg] [facility] Oxygen saturation by 2020-09-21 07:38:00 95 /min [facility] Heart Rate 2020-09-21 07:38:00 63 /min [facility] Respiratory rate 2020-09-21 07:38:00 17 /min [facility] Body Temperature 2020-09-21 07:38:00 98.0 [degF] [facility] BP Diastolic 2020-09-21 04:00:00 70 mm[Hg] [facility] BP Systolic 2020-09-21 04:00:00 149 mm[Hg] [facility] Oxygen saturation by 2020-09-21 04:00:00 94 /min [facility] Heart Rate 2020-09-21 04:00:00 73 /min [facility] Respiratory rate 2020-09-21 04:00:00 21 /min [facility] Body Temperature 2020-09-21 04:00:00 97.0 [degF] [facility] BP Diastolic 2020-09-21 00:00:00 66 mm[Hg] [facility] BP Systolic 2020-09-21 00:00:00 143 mm[Hg] [facility] Oxygen saturation by 2020-09-21 00:00:00 95 /min [facility] Heart Rate 2020-09-21 00:00:00 76 /min [facility] Respiratory rate 2020-09-21 00:00:00 21 /min [facility] Body Temperature 2020-09-21 00:00:00 98.2 [degF] [facility] BP Diastolic 2020-09-20 20:00:00 69 mm[Hg] [facility] BP Systolic 2020-09-20 20:00:00 155 mm[Hg] [facility] Oxygen saturation by 2020-09-20 20:00:00 94 /min [facility] Heart Rate 2020-09-20 20:00:00 72 /min [facility] Respiratory rate 2020-09-20 20:00:00 20 /min [facility] Body Temperature 2020-09-20 20:00:00 98.1 [degF] [facility] Oxygen saturation by 2020-09-20 19:53:00 99 /min [facility] Heart Rate 2020-09-20 19:53:00 72 /min [facility] Respiratory rate 2020-09-20 19:53:00 16 /min [facility] Oxygen saturation by 2020-09-20 19:45:00 96 /min [facility] Heart Rate 2020-09-20 19:45:00 75 /min [facility] Respiratory rate 2020-09-20 19:45:00 18 /min [facility] BP Diastolic 2020-09-20 16:36:00 69 mm[Hg] [facility] BP Systolic 2020-09-20 16:36:00 155 mm[Hg] [facility] Oxygen saturation by 2020-09-20 16:36:00 97 /min [facility] Heart Rate 2020-09-20 16:36:00 73 /min [facility] Respiratory rate 2020-09-20 16:36:00 21 /min [facility] Body Temperature 2020-09-20 16:36:00 98.3 [degF] [facility] BP Diastolic 2020-09-20 15:47:00 60 mm[Hg] [facility] BP Systolic 2020-09-20 15:47:00 133 mm[Hg] [facility] Oxygen saturation by 2020-09-20 15:47:00 94 /min [facility] Heart Rate 2020-09-20 15:47:00 71 /min [facility] Respiratory rate 2020-09-20 15:47:00 19 /min [facility] Body Temperature 2020-09-20 15:47:00 98.1 [degF] [facility] BP Diastolic 2020-09-20 11:55:00 60 mm[Hg] [facility] BP Systolic 2020-09-20 11:55:00 133 mm[Hg] [facility] Oxygen saturation by 2020-09-20 11:55:00 94 /min [facility] Heart Rate 2020-09-20 11:55:00 71 /min [facility] Respiratory rate 2020-09-20 11:55:00 19 /min [facility] Body Temperature 2020-09-20 11:55:00 98.1 [degF] [facility] BP Diastolic 2020-09-20 09:06:00 66 mm[Hg] [facility] BP Systolic 2020-09-20 09:06:00 145 mm[Hg] [facility] Oxygen saturation by 2020-09-20 09:06:00 99 /min [facility] Heart Rate 2020-09-20 09:06:00 86 /min [facility] Respiratory rate 2020-09-20 09:06:00 19 /min [facility] Body Temperature 2020-09-20 09:06:00 98.4 [degF] [facility] BP Diastolic 2020-09-20 08:58:00 66 mm[Hg] [facility] BP Systolic 2020-09-20 08:58:00 145 mm[Hg] [facility] Oxygen saturation by 2020-09-20 08:58:00 99 /min [facility] Heart Rate 2020-09-20 08:58:00 86 /min [facility] Respiratory rate 2020-09-20 08:58:00 19 /min [facility] Body Temperature 2020-09-20 08:58:00 98.4 [degF] [facility] BP Diastolic 2020-09-20 08:55:00 66 mm[Hg] [facility] BP Systolic 2020-09-20 08:55:00 145 mm[Hg] [facility] Oxygen saturation by 2020-09-20 08:55:00 99 /min [facility] Heart Rate 2020-09-20 08:55:00 86 /min [facility] Respiratory rate 2020-09-20 08:55:00 19 /min [facility] Body Temperature 2020-09-20 08:55:00 98.4 [degF] [facility] BP Diastolic 2020-09-20 07:38:00 66 mm[Hg] [facility] BP Systolic 2020-09-20 07:38:00 145 mm[Hg] [facility] Oxygen saturation by 2020-09-20 07:38:00 99 /min [facility] Heart Rate 2020-09-20 07:38:00 71 /min [facility] Respiratory rate 2020-09-20 07:38:00 19 /min [facility] Body Temperature 2020-09-20 07:38:00 98.4 [degF] [facility] Oxygen saturation by 2020-09-20 07:05:00 95 /min [facility] Heart Rate 2020-09-20 07:05:00 82 /min [facility] Respiratory rate 2020-09-20 07:05:00 18 /min [facility] BP Diastolic 2020-09-20 04:00:00 61 mm[Hg] [facility] BP Systolic 2020-09-20 04:00:00 145 mm[Hg] [facility] Oxygen saturation by 2020-09-20 04:00:00 96 /min [facility] Heart Rate 2020-09-20 04:00:00 66 /min [facility] Respiratory rate 2020-09-20 04:00:00 18 /min [facility] Body Temperature 2020-09-20 04:00:00 97.5 [degF] [facility] BP Diastolic 2020-09-20 00:00:00 56 mm[Hg] [facility] BP Systolic 2020-09-20 00:00:00 133 mm[Hg] [facility] Oxygen saturation by 2020-09-20 00:00:00 98 /min [facility] Heart Rate 2020-09-20 00:00:00 66 /min [facility] Respiratory rate 2020-09-20 00:00:00 20 /min [facility] Body Temperature 2020-09-20 00:00:00 97.9 [degF] [facility] BP Diastolic 2020-09-19 21:46:00 70 mm[Hg] [facility] BP Systolic 2020-09-19 21:46:00 138 mm[Hg] [facility] Oxygen saturation by 2020-09-19 21:46:00 94 /min [facility] Heart Rate 2020-09-19 21:46:00 80 /min [facility] Respiratory rate 2020-09-19 21:46:00 18 /min [facility] Body Temperature 2020-09-19 21:46:00 97.4 [degF] [facility] Oxygen saturation by 2020-09-19 20:09:00 95 /min [facility] Heart Rate 2020-09-19 20:09:00 82 /min [facility] Respiratory rate 2020-09-19 20:09:00 18 /min [facility] BP Diastolic 2020-09-19 20:00:00 70 mm[Hg] [facility] BP Systolic 2020-09-19 20:00:00 138 mm[Hg] [facility] Oxygen saturation by 2020-09-19 20:00:00 94 /min [facility] Heart Rate 2020-09-19 20:00:00 80 /min [facility] Respiratory rate 2020-09-19 20:00:00 18 /min [facility] Body Temperature 2020-09-19 20:00:00 97.4 [degF] [facility] BP Diastolic 2020-09-19 15:41:00 70 mm[Hg] [facility] BP Systolic 2020-09-19 15:41:00 157 mm[Hg] [facility] Oxygen saturation by 2020-09-19 15:41:00 95 /min [facility] Heart Rate 2020-09-19 15:41:00 80 /min [facility] Respiratory rate 2020-09-19 15:41:00 20 /min [facility] Body Temperature 2020-09-19 15:41:00 97.6 [degF] [facility] BP Diastolic 2020-09-19 12:14:00 80 mm[Hg] [facility] BP Systolic 2020-09-19 12:14:00 177 mm[Hg] [facility] Oxygen saturation by 2020-09-19 12:14:00 96 /min [facility] Heart Rate 2020-09-19 12:14:00 84 /min [facility] Respiratory rate 2020-09-19 12:14:00 17 /min [facility] BP Diastolic 2020-09-19 11:26:00 79 mm[Hg] [facility] BP Systolic 2020-09-19 11:26:00 204 mm[Hg] [facility] Oxygen saturation by 2020-09-19 11:26:00 96 /min [facility] Heart Rate 2020-09-19 11:26:00 88 /min [facility] Respiratory rate 2020-09-19 11:26:00 16 /min [facility] Body Temperature 2020-09-19 11:26:00 98.6 [degF] [facility] Oxygen saturation by 2020-09-19 08:10:00 93 /min [facility] Heart Rate 2020-09-19 08:10:00 97 /min [facility] Respiratory rate 2020-09-19 08:10:00 20 /min [facility] BP Diastolic 2020-09-19 07:37:00 91 mm[Hg] [facility] BP Systolic 2020-09-19 07:37:00 168 mm[Hg] [facility] Oxygen saturation by 2020-09-19 07:37:00 97 /min [facility] Heart Rate 2020-09-19 07:37:00 83 /min [facility] Respiratory rate 2020-09-19 07:37:00 21 /min [facility] Body Temperature 2020-09-19 07:37:00 98.1 [degF] [facility] BP Diastolic 2020-09-19 07:17:00 91 mm[Hg] [facility] BP Systolic 2020-09-19 07:17:00 168 mm[Hg] [facility] Oxygen saturation by 2020-09-19 07:17:00 97 /min [facility] Heart Rate 2020-09-19 07:17:00 83 /min [facility] Respiratory rate 2020-09-19 07:17:00 21 /min [facility] Body Temperature 2020-09-19 07:17:00 98.1 [degF] [facility] BP Diastolic 2020-09-19 05:03:00 97 mm[Hg] [facility] BP Systolic 2020-09-19 05:03:00 157 mm[Hg] [facility] Oxygen saturation by 2020-09-19 05:03:00 93 /min [facility] Heart Rate 2020-09-19 05:03:00 91 /min [facility] Respiratory rate 2020-09-19 05:03:00 18 /min [facility] Body Temperature 2020-09-19 05:03:00 91.0 [degF] [facility] BP Diastolic 2020-09-19 01:59:00 87 mm[Hg] [facility] BP Systolic 2020-09-19 01:59:00 200 mm[Hg] [facility] Oxygen saturation by 2020-09-19 01:59:00 96 /min [facility] Heart Rate 2020-09-19 01:59:00 92 /min [facility] Respiratory rate 2020-09-19 01:59:00 18 /min [facility] Body Temperature 2020-09-19 01:59:00 97.7 [degF] [facility] BP Diastolic 2020-09-18 22:57:00 86 mm[Hg] [facility] BP Systolic 2020-09-18 22:57:00 158 mm[Hg] [facility] Oxygen saturation by 2020-09-18 22:57:00 96 /min [facility] Heart Rate 2020-09-18 22:57:00 68 /min [facility] Respiratory rate 2020-09-18 22:57:00 18 /min [facility] Body Temperature 2020-09-18 22:57:00 97.7 [degF] [facility] BP Diastolic 2020-09-18 21:58:00 86 mm[Hg] [facility] BP Systolic 2020-09-18 21:58:00 158 mm[Hg] [facility] Oxygen saturation by 2020-09-18 21:58:00 96 /min [facility] Heart Rate 2020-09-18 21:58:00 68 /min [facility] Respiratory rate 2020-09-18 21:58:00 18 /min [facility] Body Temperature 2020-09-18 21:58:00 97.7 [degF] [facility] Oxygen saturation by 2020-09-18 21:16:00 93 /min [facility] Heart Rate 2020-09-18 21:16:00 97 /min [facility] Respiratory rate 2020-09-18 21:16:00 20 /min [facility] BP Diastolic 2020-09-18 15:41:00 70 mm[Hg] [facility] BP Systolic 2020-09-18 15:41:00 163 mm[Hg] [facility] Oxygen saturation by 2020-09-18 15:41:00 98 /min [facility] Heart Rate 2020-09-18 15:41:00 84 /min [facility] Respiratory rate 2020-09-18 15:41:00 21 /min [facility] Body Temperature 2020-09-18 15:41:00 98.6 [degF] [facility] BP Diastolic 2020-09-18 13:00:00 73 mm[Hg] [facility] BP Systolic 2020-09-18 13:00:00 160 mm[Hg] [facility] Oxygen saturation by 2020-09-18 13:00:00 96 /min [facility] Heart Rate 2020-09-18 13:00:00 86 /min [facility] Respiratory rate 2020-09-18 13:00:00 23 /min [facility] Body Temperature 2020-09-18 12:23:00 98.0 [degF] [facility] BP Diastolic 2020-09-18 12:00:00 77 mm[Hg] [facility] BP Systolic 2020-09-18 12:00:00 162 mm[Hg] [facility] Oxygen saturation by 2020-09-18 12:00:00 96 /min [facility] Heart Rate 2020-09-18 12:00:00 85 /min [facility] Respiratory rate 2020-09-18 12:00:00 18 /min [facility] Body Temperature 2020-09-18 12:00:00 98.0 [degF] [facility] BP Diastolic 2020-09-18 11:00:00 76 mm[Hg] [facility] BP Systolic 2020-09-18 11:00:00 168 mm[Hg] [facility] Oxygen saturation by 2020-09-18 11:00:00 96 /min [facility] Heart Rate 2020-09-18 11:00:00 86 /min [facility] Respiratory rate 2020-09-18 11:00:00 24 /min [facility] BP Diastolic 2020-09-18 10:00:00 79 mm[Hg] [facility] BP Systolic 2020-09-18 10:00:00 150 mm[Hg] [facility] Oxygen saturation by 2020-09-18 10:00:00 96 /min [facility] Heart Rate 2020-09-18 10:00:00 80 /min [facility] Respiratory rate 2020-09-18 10:00:00 19 /min [facility] BP Diastolic 2020-09-18 09:00:00 80 mm[Hg] [facility] BP Systolic 2020-09-18 09:00:00 141 mm[Hg] [facility] Oxygen saturation by 2020-09-18 09:00:00 96 /min [facility] Heart Rate 2020-09-18 09:00:00 86 /min [facility] Respiratory rate 2020-09-18 09:00:00 18 /min [facility] Body Temperature 2020-09-18 09:00:00 97.7 [degF] [facility] BP Diastolic 2020-09-18 08:00:00 70 mm[Hg] [facility] BP Systolic 2020-09-18 08:00:00 146 mm[Hg] [facility] Oxygen saturation by 2020-09-18 08:00:00 96 /min [facility] Heart Rate 2020-09-18 08:00:00 86 /min [facility] Respiratory rate 2020-09-18 08:00:00 15 /min [facility] BP Diastolic 2020-09-18 07:51:00 80 mm[Hg] [facility] BP Systolic 2020-09-18 07:51:00 141 mm[Hg] [facility] Oxygen saturation by 2020-09-18 07:51:00 96 /min [facility] Heart Rate 2020-09-18 07:51:00 86 /min [facility] Respiratory rate 2020-09-18 07:51:00 17 /min [facility] Body Temperature 2020-09-18 07:51:00 97.7 [degF] [facility] Oxygen saturation by 2020-09-18 07:35:00 97 /min [facility] Heart Rate 2020-09-18 07:35:00 85 /min [facility] Respiratory rate 2020-09-18 07:35:00 20 /min [facility] BP Diastolic 2020-09-18 07:00:00 80 mm[Hg] [facility] BP Systolic 2020-09-18 07:00:00 141 mm[Hg] [facility] Oxygen saturation by 2020-09-18 07:00:00 97 /min [facility] Heart Rate 2020-09-18 07:00:00 86 /min [facility] Respiratory rate 2020-09-18 07:00:00 17 /min [facility] Body Temperature 2020-09-18 07:00:00 97.7 [degF] [facility] BP Diastolic 2020-09-18 06:00:00 85 mm[Hg] [facility] BP Systolic 2020-09-18 06:00:00 174 mm[Hg] [facility] Oxygen saturation by 2020-09-18 06:00:00 96 /min [facility] Heart Rate 2020-09-18 06:00:00 95 /min [facility] Respiratory rate 2020-09-18 06:00:00 21 /min [facility] BP Diastolic 2020-09-18 05:00:00 77 mm[Hg] [facility] BP Systolic 2020-09-18 05:00:00 158 mm[Hg] [facility] Oxygen saturation by 2020-09-18 05:00:00 96 /min [facility] Heart Rate 2020-09-18 05:00:00 86 /min [facility] Respiratory rate 2020-09-18 05:00:00 18 /min [facility] BP Diastolic 2020-09-18 04:00:00 74 mm[Hg] [facility] BP Systolic 2020-09-18 04:00:00 150 mm[Hg] [facility] Oxygen saturation by 2020-09-18 04:00:00 96 /min [facility] Heart Rate 2020-09-18 04:00:00 76 /min [facility] Respiratory rate 2020-09-18 04:00:00 17 /min [facility] BP Diastolic 2020-09-18 03:00:00 88 mm[Hg] [facility] BP Systolic 2020-09-18 03:00:00 157 mm[Hg] [facility] Oxygen saturation by 2020-09-18 03:00:00 97 /min [facility] Heart Rate 2020-09-18 03:00:00 89 /min [facility] Respiratory rate 2020-09-18 03:00:00 15 /min [facility] BP Diastolic 2020-09-18 02:00:00 80 mm[Hg] [facility] BP Systolic 2020-09-18 02:00:00 145 mm[Hg] [facility] Oxygen saturation by 2020-09-18 02:00:00 96 /min [facility] Heart Rate 2020-09-18 02:00:00 95 /min [facility] Respiratory rate 2020-09-18 02:00:00 16 /min [facility] BP Diastolic 2020-09-18 01:00:00 73 mm[Hg] [facility] BP Systolic 2020-09-18 01:00:00 144 mm[Hg] [facility] Oxygen saturation by 2020-09-18 01:00:00 97 /min [facility] Heart Rate 2020-09-18 01:00:00 84 /min [facility] Respiratory rate 2020-09-18 01:00:00 19 /min [facility] BP Diastolic 2020-09-18 00:00:00 68 mm[Hg] [facility] BP Systolic 2020-09-18 00:00:00 144 mm[Hg] [facility] Oxygen saturation by 2020-09-18 00:00:00 97 /min [facility] Heart Rate 2020-09-18 00:00:00 89 /min [facility] Respiratory rate 2020-09-18 00:00:00 18 /min [facility] [facility] Body Temperature 2020-09-18 00:00:00 98.3 [degF] [facility] BP Diastolic 2020-09-17 23:00:00 89 mm[Hg] [facility] BP Systolic 2020-09-17 23:00:00 145 mm[Hg] [facility] Oxygen saturation by 2020-09-17 23:00:00 96 /min [facility] Heart Rate 2020-09-17 23:00:00 90 /min [facility] Respiratory rate 2020-09-17 23:00:00 20 /min [facility] BP Diastolic 2020-09-17 22:03:00 67 mm[Hg] [facility] BP Systolic 2020-09-17 22:03:00 134 mm[Hg] [facility] Oxygen saturation by 2020-09-17 22:03:00 96 /min [facility] Heart Rate 2020-09-17 22:03:00 90 /min [facility] Respiratory rate 2020-09-17 22:03:00 18 /min [facility] BP Diastolic 2020-09-17 21:00:00 62 mm[Hg] [facility] BP Systolic 2020-09-17 21:00:00 117 mm[Hg] [facility] Oxygen saturation by 2020-09-17 21:00:00 96 /min [facility] Heart Rate 2020-09-17 21:00:00 97 /min [facility] Respiratory rate 2020-09-17 21:00:00 19 /min [facility] Oxygen saturation by 2020-09-17 20:08:00 96 /min [facility] Heart Rate 2020-09-17 20:08:00 95 /min [facility] Respiratory rate 2020-09-17 20:08:00 20 /min [facility] BP Diastolic 2020-09-17 20:00:00 86 mm[Hg] [facility] BP Systolic 2020-09-17 20:00:00 169 mm[Hg] [facility] Oxygen saturation by 2020-09-17 20:00:00 95 /min [facility] Heart Rate 2020-09-17 20:00:00 105 /min [facility] Respiratory rate 2020-09-17 20:00:00 23 /min [facility] BP Diastolic 2020-09-17 19:00:00 81 mm[Hg] [facility] BP Systolic 2020-09-17 19:00:00 172 mm[Hg] [facility] Oxygen saturation by 2020-09-17 19:00:00 94 /min [facility] Heart Rate 2020-09-17 19:00:00 102 /min [facility] Respiratory rate 2020-09-17 19:00:00 23 /min [facility] Body Temperature 2020-09-17 19:00:00 97.4 [degF] [facility] BP Diastolic 2020-09-17 18:00:00 74 mm[Hg] [facility] BP Systolic 2020-09-17 18:00:00 146 mm[Hg] [facility] O[facility] saturation by 2020-09-17 18:00:00 95 /min [facility] Heart Rate 2020-09-17 18:00:00 97 /min [facility] Respiratory rate 2020-09-17 18:00:00 18 /min [facility] BP Diastolic 2020-09-17 17:00:00 73 mm[Hg] [facility] BP Systolic 2020-09-17 17:00:00 134 mm[Hg] [facility] Oxygen saturation by 2020-09-17 17:00:00 94 /min [facility] Heart Rate 2020-09-17 17:00:00 106 /min [facility] Respiratory rate 2020-09-17 17:00:00 26 /min [facility] BP Diastolic 2020-09-17 16:00:00 83 mm[Hg] [facility] BP Systolic 2020-09-17 16:00:00 184 mm[Hg] [facility] Oxygen saturation by 2020-09-17 16:00:00 92 /min [facility] Heart Rate 2020-09-17 16:00:00 96 /min [facility] Respiratory rate 2020-09-17 16:00:00 32 /min [facility] Body Temperature 2020-09-17 16:00:00 98.6 [degF] [facility] Oxygen saturation by 2020-09-17 15:28:00 94 /min [facility] Heart Rate 2020-09-17 15:28:00 83 /min [facility] Respiratory rate 2020-09-17 15:28:00 26 /min [facility] Oxygen saturation by 2020-09-17 15:27:00 94 /min [facility] Heart Rate 2020-09-17 15:27:00 83 /min [facility] Respiratory rate 2020-09-17 15:27:00 26 /min [facility] BP Diastolic 2020-09-17 15:00:00 84 mm[Hg] [facility] BP Systolic 2020-09-17 15:00:00 181 mm[Hg] [facility] Oxygen saturation by 2020-09-17 15:00:00 98 /min [facility] Heart Rate 2020-09-17 15:00:00 93 /min [facility] Respiratory rate 2020-09-17 15:00:00 24 /min [facility] Oxygen saturation by 2020-09-17 14:59:00 94 /min [facility] Heart Rate 2020-09-17 14:59:00 84 /min [facility] Respiratory rate 2020-09-17 14:59:00 17 /min [facility] BP Diastolic 2020-09-17 14:00:00 94 mm[Hg] [facility] BP Systolic 2020-09-17 14:00:00 187 mm[Hg] [facility] Oxygen saturation by 2020-09-17 14:00:00 93 /min [facility] Heart Rate 2020-09-17 14:00:00 109 /min [facility] Respiratory rate 2020-09-17 14:00:00 29 /min [facility] BP Diastolic 2020-09-17 13:00:00 87 mm[Hg] [facility] BP Systolic 2020-09-17 13:00:00 171 mm[Hg] [facility] Oxygen saturation by 2020-09-17 13:00:00 92 /min [facility] Heart Rate 2020-09-17 13:00:00 112 /min [facility] Respiratory rate 2020-09-17 13:00:00 28 /min [facility] BP Diastolic 2020-09-17 12:00:00 75 mm[Hg] [facility] BP Systolic 2020-09-17 12:00:00 132 mm[Hg] [facility] Oxygen saturation by 2020-09-17 12:00:00 92 /min [facility] Heart Rate 2020-09-17 12:00:00 112 /min [facility] Respiratory rate 2020-09-17 12:00:00 26 /min [facility] BP Diastolic 2020-09-17 11:00:00 80 mm[Hg] [facility] BP Systolic 2020-09-17 11:00:00 148 mm[Hg] [facility] Oxygen saturation by 2020-09-17 11:00:00 92 /min [facility] Heart Rate 2020-09-17 11:00:00 119 /min [facility] Respiratory rate 2020-09-17 11:00:00 39 /min [facility] BP Diastolic 2020-09-17 10:00:00 86 mm[Hg] [facility] BP Systolic 2020-09-17 10:00:00 181 mm[Hg] [facility] Heart Rate 2020-09-17 10:00:00 105 /min [facility] Respiratory rate 2020-09-17 10:00:00 38 /min [facility] BP Diastolic 2020-09-17 09:00:00 82 mm[Hg] [facility] BP Systolic 2020-09-17 09:00:00 175 mm[Hg] [facility] Oxygen saturation by 2020-09-17 09:00:00 97 /min [facility] Heart Rate 2020-09-17 09:00:00 88 /min [facility] Respiratory rate 2020-09-17 09:00:00 17 /min [facility] Body Temperature 2020-09-17 09:00:00 97.6 [degF] [facility] BP Diastolic 2020-09-17 08:00:00 77 mm[Hg] [facility] BP Systolic 2020-09-17 08:00:00 167 mm[Hg] [facility] Oxygen saturation by 2020-09-17 08:00:00 96 /min [facility] Heart Rate 2020-09-17 08:00:00 85 /min [facility] Respiratory rate 2020-09-17 08:00:00 14 /min [facility] BP Diastolic 2020-09-17 07:00:00 83 mm[Hg] [facility] BP Systolic 2020-09-17 07:00:00 169 mm[Hg] [facility] Oxygen saturation by 2020-09-17 07:00:00 96 /min [facility] Heart Rate 2020-09-17 07:00:00 84 /min [facility] Respiratory rate 2020-09-17 07:00:00 15 /min [facility] BP Diastolic 2020-09-17 06:00:00 87 mm[Hg] [facility] BP Systolic 2020-09-17 06:00:00 159 mm[Hg] [facility] Oxygen saturation by 2020-09-17 06:00:00 96 /min [facility] Heart Rate 2020-09-17 06:00:00 83 /min [facility] Respiratory rate 2020-09-17 06:00:00 15 /min [facility] BP Diastolic 2020-09-17 05:00:00 74 mm[Hg] [facility] BP Systolic 2020-09-17 05:00:00 160 mm[Hg] [facility] Oxygen saturation by 2020-09-17 05:00:00 96 /min [facility] Heart Rate 2020-09-17 05:00:00 84 /min [facility] Respiratory rate 2020-09-17 05:00:00 16 /min [facility] BP Diastolic 2020-09-17 04:00:00 85 mm[Hg] [facility] BP Systolic 2020-09-17 04:00:00 155 mm[Hg] [facility] Oxygen saturation by 2020-09-17 04:00:00 96 /min [facility] Heart Rate 2020-09-17 04:00:00 86 /min [facility] Respiratory rate 2020-09-17 04:00:00 22 /min [facility] BP Diastolic 2020-09-17 03:30:00 84 mm[Hg] [facility] BP Systolic 2020-09-17 03:30:00 196 mm[Hg] [facility] BP Diastolic 2020-09-17 03:00:00 82 mm[Hg] [facility] BP Systolic 2020-09-17 03:00:00 188 mm[Hg] [facility] Oxygen saturation by 2020-09-17 03:00:00 97 /min [facility] Heart Rate 2020-09-17 03:00:00 90 /min [facility] Respiratory rate 2020-09-17 03:00:00 18 /min [facility] Body Temperature 2020-09-17 03:00:00 97.6 [degF] [facility] BP Diastolic 2020-09-17 02:00:00 75 mm[Hg] [facility] BP Systolic 2020-09-17 02:00:00 154 mm[Hg] [facility] Oxygen saturation by 2020-09-17 02:00:00 95 /min [facility] Heart Rate 2020-09-17 02:00:00 88 /min [facility] Respiratory rate 2020-09-17 02:00:00 18 /min [facility] BP Diastolic 2020-09-17 01:00:00 79 mm[Hg] [facility] BP Systolic 2020-09-17 01:00:00 144 mm[Hg] [facility] Oxygen saturation by 2020-09-17 01:00:00 94 /min [facility] Heart Rate 2020-09-17 01:00:00 88 /min [facility] Respiratory rate 2020-09-17 01:00:00 15 /min [facility] BP Diastolic 2020-09-17 00:00:00 76 mm[Hg] [facility] BP Systolic 2020-09-17 00:00:00 171 mm[Hg] [facility] Oxygen saturation by 2020-09-17 00:00:00 96 /min [facility] Heart Rate 2020-09-17 00:00:00 92 /min [facility] Respiratory rate 2020-09-17 00:00:00 26 /min [facility] Oxygen saturation by 2020-09-16 23:05:00 95 /min [facility] Heart Rate 2020-09-16 23:05:00 77 /min [facility] Respiratory rate 2020-09-16 23:05:00 17 /min [facility] BP Diastolic 2020-09-16 23:00:00 123 mm[Hg] [facility] BP Systolic 2020-09-16 23:00:00 212 mm[Hg] [facility] Oxygen saturation by 2020-09-16 23:00:00 97 /min [facility] Heart Rate 2020-09-16 23:00:00 83 /min [facility] Respiratory rate 2020-09-16 23:00:00 23 /min [facility] Body Temperature 2020-09-16 23:00:00 97.1 [degF] [facility] BP Diastolic 2020-09-16 22:12:00 76 mm[Hg] [facility] BP Systolic 2020-09-16 22:12:00 137 mm[Hg] [facility] Heart Rate 2020-09-16 22:12:00 80 /min [facility] BP Diastolic 2020-09-16 22:06:00 82 mm[Hg] [facility] BP Systolic 2020-09-16 22:06:00 176 mm[Hg] [facility] Oxygen saturation by 2020-09-16 22:06:00 96 /min [facility] Heart Rate 2020-09-16 22:06:00 82 /min [facility] Respiratory rate 2020-09-16 22:06:00 18 /min [facility] BP Diastolic 2020-09-16 22:03:00 81 mm[Hg] [facility] BP Systolic 2020-09-16 22:03:00 201 mm[Hg] [facility] Oxygen saturation by 2020-09-16 22:03:00 96 /min [facility] Heart Rate 2020-09-16 22:03:00 84 /min [facility] Respiratory rate 2020-09-16 22:03:00 22 /min [facility] BP Diastolic 2020-09-16 22:00:00 86 mm[Hg] [facility] BP Systolic 2020-09-16 22:00:00 206 mm[Hg] [facility] Oxygen saturation by 2020-09-16 22:00:00 96 /min [facility] Heart Rate 2020-09-16 22:00:00 86 /min [facility] Respiratory rate 2020-09-16 22:00:00 19 /min [facility] BP Diastolic 2020-09-16 21:01:00 69 mm[Hg] [facility] BP Systolic 2020-09-16 21:01:00 153 mm[Hg] [facility] Oxygen saturation by 2020-09-16 21:01:00 96 /min [facility] Heart Rate 2020-09-16 21:01:00 85 /min [facility] Respiratory rate 2020-09-16 21:01:00 17 /min [facility] BP Diastolic 2020-09-16 20:44:00 111 mm[Hg] [facility] BP Systolic 2020-09-16 20:44:00 141 mm[Hg] [facility] [place] Oxygen saturation by 2020-09-16 20:44:00 96 /min [facility] Heart Rate 2020-09-16 20:44:00 84 /min [facility] Respiratory rate 2020-09-16 20:44:00 21 /min [facility] [place] Body Temperature 2020-09-16 20:44:00 98.0 [degF] [facility] BP Diastolic 2020-09-16 20:42:00 111 mm[Hg] [facility] BP Systolic 2020-09-16 20:42:00 141 mm[Hg] [facility] Heart Rate 2020-09-16 20:42:00 84 /min [facility] BP Diastolic 2020-09-16 20:24:00 66 mm[Hg] [facility] BP Systolic 2020-09-16 20:24:00 163 mm[Hg] [facility] Heart Rate 2020-09-16 20:24:00 84 /min [facility] BP Diastolic 2020-09-16 20:00:00 88 mm[Hg] [facility] BP Systolic 2020-09-16 20:00:00 185 mm[Hg] [facility] Oxygen saturation by 2020-09-16 20:00:00 96 /min [facility] Heart Rate 2020-09-16 20:00:00 96 /min [facility] Respiratory rate 2020-09-16 20:00:00 21 /min [facility] Body Temperature 2020-09-16 20:00:00 98.0 [degF] [facility] Oxygen saturation by 2020-09-16 19:40:00 96 /min [facility] Heart Rate 2020-09-16 19:40:00 105 /min [facility] Respiratory rate 2020-09-16 19:40:00 27 /min [facility] BP Diastolic 2020-09-16 16:00:00 90 mm[Hg] [facility] BP Systolic 2020-09-16 16:00:00 175 mm[Hg] [facility] Oxygen saturation by 2020-09-16 16:00:00 96 /min [facility] Heart Rate 2020-09-16 16:00:00 108 /min [facility] Respiratory rate 2020-09-16 16:00:00 36 /min [facility] Body Temperature 2020-09-16 16:00:00 98.5 [degF] [facility] BP Diastolic 2020-09-16 13:00:00 73 mm[Hg] [facility] BP Systolic 2020-09-16 13:00:00 149 mm[Hg] [facility] Oxygen saturation by 2020-09-16 13:00:00 2 /min [facility] Heart Rate 2020-09-16 13:00:00 90 /min [facility] Respiratory rate 2020-09-16 13:00:00 15 /min [facility] BP Diastolic 2020-09-16 12:00:00 88 mm[Hg] [facility] BP Systolic 2020-09-16 12:00:00 174 mm[Hg] [facility] Oxygen saturation by 2020-09-16 12:00:00 94 /min [facility] Heart Rate 2020-09-16 12:00:00 101 /min [facility] Respiratory rate 2020-09-16 12:00:00 32 /min [facility] Body Temperature 2020-09-16 12:00:00 97.8 [degF] [facility] Oxygen saturation by 2020-09-16 11:00:00 96 /min [facility] Heart Rate 2020-09-16 11:00:00 79 /min [facility] Respiratory rate 2020-09-16 11:00:00 19 /min [facility] BP Diastolic 2020-09-16 11:00:00 81 mm[Hg] [facility] BP Systolic 2020-09-16 11:00:00 186 mm[Hg] [facility] BP Diastolic 2020-09-16 10:00:00 82 mm[Hg] [facility] BP Systolic 2020-09-16 10:00:00 166 mm[Hg] [facility] Oxygen saturation by 2020-09-16 10:00:00 95 /min [facility] Heart Rate 2020-09-16 10:00:00 82 /min [facility] Respiratory rate 2020-09-16 10:00:00 20 /min [facility] Body Temperature 2020-09-16 10:00:00 98.4 [degF] [facility] Heart Rate 2020-09-16 09:00:00 82 /min [facility] Respiratory rate 2020-09-16 09:00:00 20 /min [facility] BP Diastolic 2020-09-16 09:00:00 82 mm[Hg] [facility] BP Systolic 2020-09-16 09:00:00 166 mm[Hg] [facility] Oxygen saturation by 2020-09-16 09:00:00 95 /min [facility] BP Diastolic 2020-09-16 08:00:00 77 mm[Hg] [facility] BP Systolic 2020-09-16 08:00:00 197 mm[Hg] [facility] Oxygen saturation by 2020-09-16 08:00:00 94 /min [facility] Heart Rate 2020-09-16 08:00:00 79 /min [facility] Respiratory rate 2020-09-16 08:00:00 23 /min [facility] BP Diastolic 2020-09-16 07:00:00 110 mm[Hg] [facility] BP Systolic 2020-09-16 07:00:00 173 mm[Hg] [facility] Oxygen saturation by 2020-09-16 07:00:00 95 /min [facility] Heart Rate 2020-09-16 07:00:00 73 /min [facility] Respiratory rate 2020-09-16 07:00:00 20 /min [facility] Body Temperature 2020-09-16 07:00:00 98.4 [degF] [facility] BP Diastolic 2020-09-16 06:00:00 78 mm[Hg] [facility] BP Systolic 2020-09-16 06:00:00 178 mm[Hg] [facility] Oxygen saturation by 2020-09-16 06:00:00 93 /min [facility] Heart Rate 2020-09-16 06:00:00 87 /min [facility] Respiratory rate 2020-09-16 06:00:00 19 /min [facility] BP Diastolic 2020-09-16 05:00:00 71 mm[Hg] [facility] BP Systolic 2020-09-16 05:00:00 150 mm[Hg] [facility] Oxygen saturation by 2020-09-16 05:00:00 96 /min [facility] Heart Rate 2020-09-16 05:00:00 89 /min [facility] Respiratory rate 2020-09-16 05:00:00 22 /min [facility] BP Diastolic 2020-09-16 04:00:00 71 mm[Hg] [facility] BP Systolic 2020-09-16 04:00:00 139 mm[Hg] [facility] Oxygen saturation by 2020-09-16 04:00:00 96 /min [facility] - Pulse oximetry Patients [facility] Heart Rate 2020-09-16 04:00:00 85 /min [facility] Respiratory rate 2020-09-16 04:00:00 16 /min [facility] BP Diastolic 2020-09-16 03:00:00 69 mm[Hg] [facility] BP Systolic 2020-09-16 03:00:00 135 mm[Hg] [facility] Oxygen saturation by 2020-09-16 03:00:00 95 /min [facility] Heart Rate 2020-09-16 03:00:00 82 /min [facility] Respiratory rate 2020-09-16 03:00:00 15 /min [facility] Body Temperature 2020-09-16 03:00:00 98.5 [degF] [facility] BP Diastolic 2020-09-16 02:00:00 66 mm[Hg] [facility] BP Systolic 2020-09-16 02:00:00 140 mm[Hg] [facility] Oxygen saturation by 2020-09-16 02:00:00 95 /min [facility] Heart Rate 2020-09-16 02:00:00 83 /min [facility] Respiratory rate 2020-09-16 02:00:00 17 /min [facility] BP Diastolic 2020-09-16 01:00:00 70 mm[Hg] [facility] BP Systolic 2020-09-16 01:00:00 164 mm[Hg] [facility] Oxygen saturation by 2020-09-16 01:00:00 96 /min [facility] Heart Rate 2020-09-16 01:00:00 84 /min [facility] Respiratory rate 2020-09-16 01:00:00 20 /min [facility] BP Diastolic 2020-09-16 00:00:00 86 mm[Hg] [facility] BP Systolic 2020-09-16 00:00:00 173 mm[Hg] [facility] Oxygen saturation by 2020-09-16 00:00:00 94 /min [facility] Heart Rate 2020-09-16 00:00:00 77 /min [facility] Respiratory rate 2020-09-16 00:00:00 20 /min [facility] Body Temperature 2020-09-16 00:00:00 98.6 [degF] [facility] BP Diastolic 2020-09-15 23:00:00 59 mm[Hg] [facility] BP Systolic 2020-09-15 23:00:00 143 mm[Hg] [facility] Oxygen saturation by 2020-09-15 23:00:00 95 /min [facility] Heart Rate 2020-09-15 23:00:00 79 /min [facility] Respiratory rate 2020-09-15 23:00:00 18 /min [facility] BP Diastolic 2020-09-15 22:00:00 55 mm[Hg] [facility] BP Systolic 2020-09-15 22:00:00 133 mm[Hg] [facility] Oxygen saturation by 2020-09-15 22:00:00 94 /min [facility] Heart Rate 2020-09-15 22:00:00 78 /min [facility] Respiratory rate 2020-09-15 22:00:00 17 /min [facility] BP Diastolic 2020-09-15 21:00:00 56 mm[Hg] [facility] BP Systolic 2020-09-15 21:00:00 145 mm[Hg] [facility] Oxygen saturation by 2020-09-15 21:00:00 93 /min [facility] Heart Rate 2020-09-15 21:00:00 79 /min [facility] Respiratory rate 2020-09-15 21:00:00 17 /min [facility] Oxygen saturation by 2020-09-15 20:50:00 94 /min [facility] Heart Rate 2020-09-15 20:50:00 81 /min [facility] Respiratory rate 2020-09-15 20:50:00 18 /min [facility] BP Diastolic 2020-09-15 20:00:00 56 mm[Hg] [facility] BP Systolic 2020-09-15 20:00:00 165 mm[Hg] [facility] Oxygen saturation by 2020-09-15 20:00:00 97 /min [facility] Heart Rate 2020-09-15 20:00:00 76 /min [facility] Respiratory rate 2020-09-15 20:00:00 22 /min [facility] Oxygen saturation by 2020-09-15 19:00:00 96 /min [facility] Respiratory rate 2020-09-15 19:00:00 14 /min [facility] Body Temperature 2020-09-15 19:00:00 98.7 [degF] [facility] BP Diastolic 2020-09-15 18:00:00 115 mm[Hg] [facility] BP Systolic 2020-09-15 18:00:00 154 mm[Hg] [facility] Oxygen saturation by 2020-09-15 18:00:00 94 /min [facility] Heart Rate 2020-09-15 18:00:00 79 /min [facility] Respiratory rate 2020-09-15 18:00:00 19 /min [facility] BP Diastolic 2020-09-15 17:00:00 65 mm[Hg] [facility] BP Systolic 2020-09-15 17:00:00 154 mm[Hg] [facility] Oxygen saturation by 2020-09-15 17:00:00 95 /min [facility] Heart Rate 2020-09-15 17:00:00 71 /min [facility] Respiratory rate 2020-09-15 17:00:00 18 /min [facility] BP Diastolic 2020-09-15 16:00:00 75 mm[Hg] [facility] BP Systolic 2020-09-15 16:00:00 159 mm[Hg] [facility] Oxygen saturation by 2020-09-15 16:00:00 94 /min [facility] Heart Rate 2020-09-15 16:00:00 75 /min [facility] Respiratory rate 2020-09-15 16:00:00 16 /min [facility] BP Diastolic 2020-09-15 15:14:00 71 mm[Hg] [facility] BP Systolic 2020-09-15 15:14:00 169 mm[Hg] [facility] Oxygen saturation by 2020-09-15 15:14:00 100 /min [facility] Heart Rate 2020-09-15 15:14:00 75 /min [facility] Body Temperature 2020-09-15 15:14:00 97.7 [degF] [facility] BP Diastolic 2020-09-15 15:10:00 66 mm[Hg] [facility] BP Systolic 2020-09-15 15:10:00 156 mm[Hg] [facility] Oxygen saturation by 2020-09-15 15:10:00 100 /min [facility] Heart Rate 2020-09-15 15:10:00 74 /min [facility] Respiratory rate 2020-09-15 15:10:00 18 /min [facility] BP Diastolic 2020-09-15 14:50:00 84 mm[Hg] [facility] BP Systolic 2020-09-15 14:50:00 176 mm[Hg] [facility] Oxygen saturation by 2020-09-15 14:50:00 100 /min [facility] Heart Rate 2020-09-15 14:50:00 81 /min [facility] Respiratory rate 2020-09-15 14:50:00 18 /min [facility] BP Diastolic 2020-09-15 14:40:00 94 mm[Hg] [facility] BP Systolic 2020-09-15 14:40:00 200 mm[Hg] [facility] Oxygen saturation by 2020-09-15 14:40:00 97 /min [facility] Heart Rate 2020-09-15 14:40:00 96 /min [facility] Respiratory rate 2020-09-15 14:40:00 16 /min [facility] BP Diastolic 2020-09-15 14:25:00 96 mm[Hg] [facility] BP Systolic 2020-09-15 14:25:00 175 mm[Hg] [facility] Oxygen saturation by 2020-09-15 14:25:00 98 /min [facility] Heart Rate 2020-09-15 14:25:00 99 /min [facility] Respiratory rate 2020-09-15 14:25:00 16 /min [facility] Body Temperature 2020-09-15 14:25:00 98.0 [degF] [facility] BP Diastolic 2020-09-15 11:14:00 67 mm[Hg] [facility] BP Systolic 2020-09-15 11:14:00 177 mm[Hg] [facility] Oxygen saturation by 2020-09-15 11:14:00 94 /min [facility] Heart Rate 2020-09-15 11:14:00 70 /min [facility] Respiratory rate 2020-09-15 11:14:00 18 /min [facility] Body Temperature 2020-09-15 11:14:00 97.6 [degF] [facility] BP Diastolic 2020-09-15 08:52:00 75 mm[Hg] [facility] BP Systolic 2020-09-15 08:52:00 171 mm[Hg] [facility] Oxygen saturation by 2020-09-15 08:52:00 92 /min [facility] Heart Rate 2020-09-15 08:52:00 74 /min [facility] Respiratory rate 2020-09-15 08:52:00 18 /min [facility] Body Temperature 2020-09-15 08:52:00 97.6 [degF] [facility] BP Diastolic 2020-09-15 07:45:00 75 mm[Hg] [facility] BP Systolic 2020-09-15 07:45:00 171 mm[Hg] [facility] Oxygen saturation by 2020-09-15 07:45:00 92 /min [facility] Heart Rate 2020-09-15 07:45:00 74 /min [facility] Respiratory rate 2020-09-15 07:45:00 18 /min [facility] Body Temperature 2020-09-15 07:45:00 97.6 [degF] [facility] BP Diastolic 2020-09-15 04:00:00 56 mm[Hg] [facility] BP Systolic 2020-09-15 04:00:00 156 mm[Hg] [facility] Oxygen saturation by 2020-09-15 04:00:00 93 /min [facility] Heart Rate 2020-09-15 04:00:00 68 /min [facility] Respiratory rate 2020-09-15 04:00:00 18 /min [facility] Body Temperature 2020-09-15 04:00:00 98.4 [degF] [facility] BP Diastolic 2020-09-15 00:00:00 71 mm[Hg] [facility] BP Systolic 2020-09-15 00:00:00 140 mm[Hg] [facility] Oxygen saturation by 2020-09-15 00:00:00 94 /min [facility] Heart Rate 2020-09-15 00:00:00 72 /min [facility] Respiratory rate 2020-09-15 00:00:00 18 /min [facility] Body Temperature 2020-09-15 00:00:00 98.4 [degF] [facility] BP Diastolic 2020-09-14 20:27:00 80 mm[Hg] [facility] BP Systolic 2020-09-14 20:27:00 180 mm[Hg] [facility] Oxygen saturation by 2020-09-14 20:27:00 92 /min [facility] Heart Rate 2020-09-14 20:27:00 90 /min [facility] Respiratory rate 2020-09-14 20:27:00 20 /min [facility] Body Temperature 2020-09-14 20:27:00 98.5 [degF] [facility] BP Diastolic 2020-09-14 20:00:00 80 mm[Hg] [facility] BP Systolic 2020-09-14 20:00:00 180 mm[Hg] [facility] Oxygen saturation by 2020-09-14 20:00:00 92 /min [facility] Heart Rate 2020-09-14 20:00:00 90 /min [facility] Respiratory rate 2020-09-14 20:00:00 20 /min [facility] Body Temperature 2020-09-14 20:00:00 98.5 [degF] [facility] BP Diastolic 2020-09-14 15:47:00 82 mm[Hg] [facility] BP Systolic 2020-09-14 15:47:00 155 mm[Hg] [facility] Oxygen saturation by 2020-09-14 15:47:00 95 /min [facility] Heart Rate 2020-09-14 15:47:00 85 /min [facility] Respiratory rate 2020-09-14 15:47:00 16 /min [facility] Body Temperature 2020-09-14 15:47:00 98.1 [degF] [facility] BP Diastolic 2020-09-14 11:15:00 73 mm[Hg] [facility] BP Systolic 2020-09-14 11:15:00 165 mm[Hg] [facility] Oxygen saturation by 2020-09-14 11:15:00 93 /min [facility] Heart Rate 2020-09-14 11:15:00 89 /min [facility] Respiratory rate 2020-09-14 11:15:00 19 /min [facility] Body Temperature 2020-09-14 11:15:00 98.3 [degF] [facility] BP Diastolic 2020-09-14 07:49:00 67 mm[Hg] [facility] BP Systolic 2020-09-14 07:49:00 166 mm[Hg] [facility] Oxygen saturation by 2020-09-14 07:49:00 93 /min [facility] Heart Rate 2020-09-14 07:49:00 88 /min [facility] Respiratory rate 2020-09-14 07:49:00 18 /min [facility] Body Temperature 2020-09-14 07:49:00 97.9 [degF] [facility] BP Diastolic 2020-09-14 07:31:00 67 mm[Hg] [facility] BP Systolic 2020-09-14 07:31:00 166 mm[Hg] [facility] Oxygen saturation by 2020-09-14 07:31:00 93 /min [facility] Heart Rate 2020-09-14 07:31:00 88 /min [facility] Respiratory rate 2020-09-14 07:31:00 18 /min [facility] Body Temperature 2020-09-14 07:31:00 97.9 [degF] [facility] BP Diastolic 2020-09-14 04:00:00 74 mm[Hg] [facility] BP Systolic 2020-09-14 04:00:00 175 mm[Hg] [facility] Oxygen saturation by 2020-09-14 04:00:00 94 /min [facility] Heart Rate 2020-09-14 04:00:00 94 /min [facility] Respiratory rate 2020-09-14 04:00:00 18 /min [facility] Body Temperature 2020-09-14 04:00:00 97.9 [degF] [facility] BP Diastolic 2020-09-14 00:00:00 77 mm[Hg] [facility] BP Systolic 2020-09-14 00:00:00 178 mm[Hg] [facility] Oxygen saturation by 2020-09-14 00:00:00 95 /min [facility] Heart Rate 2020-09-14 00:00:00 90 /min [facility] Respiratory rate 2020-09-14 00:00:00 18 /min [facility] Body Temperature 2020-09-14 00:00:00 98.1 [degF] [facility] BP Diastolic 2020-09-13 20:12:00 84 mm[Hg] [facility] BP Systolic 2020-09-13 20:12:00 177 mm[Hg] [facility] Oxygen saturation by 2020-09-13 20:12:00 94 /min [facility] Heart Rate 2020-09-13 20:12:00 88 /min [facility] Respiratory rate 2020-09-13 20:12:00 18 /min [facility] Body Temperature 2020-09-13 20:12:00 97.8 [degF] [facility] BP Diastolic 2020-09-13 20:00:00 84 mm[Hg] [facility] BP Systolic 2020-09-13 20:00:00 177 mm[Hg] [facility] Oxygen saturation by 2020-09-13 20:00:00 94 /min [facility] Heart Rate 2020-09-13 20:00:00 88 /min [facility] Respiratory rate 2020-09-13 20:00:00 18 /min [facility] Body Temperature 2020-09-13 20:00:00 97.8 [degF] [facility] BP Diastolic 2020-09-13 16:11:00 82 mm[Hg] [facility] BP Systolic 2020-09-13 16:11:00 140 mm[Hg] [facility] Oxygen saturation by 2020-09-13 16:11:00 94 /min [facility] Heart Rate 2020-09-13 16:11:00 78 /min [facility] Respiratory rate 2020-09-13 16:11:00 18 /min [facility] Body Temperature 2020-09-13 16:11:00 98.1 [degF] [facility] BP Diastolic 2020-09-13 12:08:00 84 mm[Hg] [facility] BP Systolic 2020-09-13 12:08:00 172 mm[Hg] [facility] Oxygen saturation by 2020-09-13 12:08:00 94 /min [facility] Heart Rate 2020-09-13 12:08:00 82 /min [facility] Respiratory rate 2020-09-13 12:08:00 17 /min [facility] Body Temperature 2020-09-13 12:08:00 98.2 [degF] [facility] BP Diastolic 2020-09-13 11:16:00 79 mm[Hg] [facility] BP Systolic 2020-09-13 11:16:00 151 mm[Hg] [facility] Oxygen saturation by 2020-09-13 11:16:00 95 /min [facility] Heart Rate 2020-09-13 11:16:00 79 /min [facility] Respiratory rate 2020-09-13 11:16:00 18 /min [facility] Body Temperature 2020-09-13 11:16:00 97.4 [degF] [facility] BP Diastolic 2020-09-13 08:45:00 79 mm[Hg] [facility] BP Systolic 2020-09-13 08:45:00 151 mm[Hg] [facility] Oxygen saturation by 2020-09-13 08:45:00 95 /min [facility] Heart Rate 2020-09-13 08:45:00 79 /min [facility] Respiratory rate 2020-09-13 08:45:00 18 /min [facility] Body Temperature 2020-09-13 08:45:00 97.4 [degF] [facility] BP Diastolic 2020-09-13 04:00:00 82 mm[Hg] [facility] BP Systolic 2020-09-13 04:00:00 179 mm[Hg] [facility] Oxygen saturation by 2020-09-13 04:00:00 92 /min [facility] Heart Rate 2020-09-13 04:00:00 87 /min [facility] Respiratory rate 2020-09-13 04:00:00 20 /min [facility] Body Temperature 2020-09-13 04:00:00 97.9 [degF] [facility] BP Diastolic 2020-09-13 00:00:00 79 mm[Hg] [facility] BP Systolic 2020-09-13 00:00:00 150 mm[Hg] [facility] Oxygen saturation by 2020-09-13 00:00:00 93 /min [facility] Heart Rate 2020-09-13 00:00:00 76 /min [facility] Respiratory rate 2020-09-13 00:00:00 20 /min [facility] Body Temperature 2020-09-13 00:00:00 98.7 [degF] [facility] BP Diastolic 2020-09-12 22:28:00 92 mm[Hg] [facility] BP Systolic 2020-09-12 22:28:00 150 mm[Hg] [facility] Oxygen saturation by 2020-09-12 22:28:00 95 /min [facility] Heart Rate 2020-09-12 22:28:00 96 /min [facility] Respiratory rate 2020-09-12 22:28:00 18 /min [facility] Body Temperature 2020-09-12 22:28:00 97.9 [degF] [facility] BP Diastolic 2020-09-12 22:18:00 92 mm[Hg] [facility] BP Systolic 2020-09-12 22:18:00 150 mm[Hg] [facility] Oxygen saturation by 2020-09-12 22:18:00 95 /min [facility] Heart Rate 2020-09-12 22:18:00 96 /min [facility] Respiratory rate 2020-09-12 22:18:00 18 /min [facility] Body Temperature 2020-09-12 22:18:00 97.9 [degF] [facility] BP Diastolic 2020-09-12 20:23:00 92 mm[Hg] [facility] BP Systolic 2020-09-12 20:23:00 150 mm[Hg] [facility] Oxygen saturation by 2020-09-12 20:23:00 96 /min [facility] Patients [facility] Heart Rate 2020-09-12 20:23:00 95 /min [facility] Respiratory rate 2020-09-12 20:23:00 18 /min [facility] Body Temperature 2020-09-12 20:23:00 97.9 [degF] [facility] Oxygen saturation by 2020-09-12 20:11:00 96 /min [facility] P[facility] Patients [facility] Oxygen saturation by 2020-09-12 18:25:00 98 /min [facility] Oxygen saturation by 2020-09-12 15:35:00 98 /min [facility] Procedures Procedure Date / Time Performed Performing Clinician [facility] Computed tomography of 2020-09-20 00:00:00 RUSTAM Bruno - chest with contrast Patients [facility] Exploratory laparotomy 2020-09-15 00:00:00 RUSTAM Bruno - [facility] CT of abdomen and 2020-03-02 00:00:00 RUSTAM Pattons - pelvis without contrast Patients [facility] Plan of Care Planned Activity Planned Date Details Comments Source Future Scheduled 2021-01-28 INFLUENZA VACCINE [place] [facility] 00:00:00 [code = INFLUENZA VACCINE] Future Scheduled 1981-12-16 SHINGLES VACCINES (#1) [facility] 00:00:00 [code = SHINGLES VACCINES (#1)] Future Scheduled 1947 COVID-19 VACCINE (1) [place] [facility] 00:00:00 [code = COVID-19 VACCINE (1)] Future Scheduled 1936-12-16 65+ PNEUMOCOCCAL [place] [facility] 00:00:00 VACCINE (1 of 2 - PPSV23) [code = 65+ PNEUMOCOCCAL VACCINE (1 of 2 - PPSV23)] Encounters Start End Encounter Admission Attending Care Care Encounter Source Date/Time Date/Time Type Type Clinicians Facility Department ID 2020-09-12 2020-09-28 Discharged 1 YENY, [facility] [id number] [facility] [address] 19:18:00 13:20:00 Inpatient [facility] 2020-03-02 2020-03-02 Registered 3 YENY, [facility] [id number] [facility] [facility] 13:32:00 13:32:00 Clinic JEANNINE Patients 29 [facility] 2019-01-27 2019-01-27 Orders Doctor DAVID [id number] 00:00:00 00:00:00 Only Unassigned, GREGORY 350.1.13.10 [facility] 4.2.7.2.686 [id number] Results Test Description Test Time Test Comments Results Result Comments Source Blood leukocytes automated count (number/volume) 2020-09-28 05:25:00 Test Item Value Reference Range Interpretation Comme nts White Blood Count (test code = 6690-2) 10.37 4.8-10.8 [facility] automated count (number/volume)2020-09-28 05:25:00 Test Item Value Reference Range Interpretation Comments Red Blood Count (test code = 789-8) 3.00 4.3-5.7 [facility] hemoglobin measurement (moles/volume)2020-09-28 05:25:00 Test Item Value Reference Range Interpretation Comments Hemoglobin (test code = 16079-1) 9.1 14.0-18.0 [facility] CenterAutomated blood hematocrit (volume fraction)2020-09-28 05:25:00 Test Item Value Reference Range Interpretation Comments Hematocrit (test code = 4544-3) 26.0 38.2-49.6 [facility] CenterAutomated erythrocyte mean corpuscular rxceyq4629-95-90 05:25:00 Test Item Value Reference Range Interpretation Comments Mean Corpuscular Volume (test code = 86.7 81-99 787-2) [facility] CenterAutomated erythrocyte mean corpuscular hemoglobin (mass per erythrocyte)2020-09-28 05:25:00 Test Item Value Reference Range Interpretation Comments Mean Corpuscular Hemoglobin (test code 30.3 28-32 = 785-6) [facility] CenterAutomated erythrocyte mean corpuscular hemoglobin concentration measurement (mass/volume)2020-09-28 05:25:00 Test Item Value Reference Range Interpretation Comments Mean Corpuscular Hemoglobin Concent 35.0 31-35 (test code = 786-4) [facility] CenterRDW YddBg-Cli9725-73-01 05:25:00 Test Item Value Reference Range Interpretation Comments Red Cell Distribution Width (test code 16.1 11.7-14.4 = 10205-0) [facility] CenterAutomated blood platelet count (count/volume)2020-09-28 05:25:00 Test Item Value Reference Range Interpretation Comments Platelet Count (test code = 777-3) 253 140-360 [facility] CenterAutomated blood segmented neutrophil count as percentage of total mtrugapmai7063-24-92 05:25:00 Test Item Value Reference Range Interpretation Comments Neutrophils (%) (Auto) (test code = 77.9 38.7-80.0 04299-2) [facility] CenterAutomated blood lymphocyte count as percentage ot total srpkqskkoq8969-36-58 05:25:00 Test Item Value Reference Range Interpretation Comments Lymphocytes (%) (Auto) (test code = 12.3 18.0-39.1 736-9) [facility] CenterAutomated blood monocyte count as percentage of total fuvoghmjhl1844-93-13 05:25:00 Test Item Value Reference Range Interpretation Comments Monocytes (%) (Auto) (test code = 6.4 4.4-11.3 5905-5) [facility] CenterAutomated blood eosinophil count as percentage of total nneqaazcmr5263-95-96 05:25:00 Test Item Value Reference Range Interpretation Comments Eosinophils (%) (Auto) (test code = 1.8 0.0-6.0 713-8) [facility] CenterAutomated blood basophil count as percentage of total ssllbtlces9990-36-43 05:25:00 Test Item Value Reference Range Interpretation Comments Basophils (%) (Auto) (test code = 0.4 0.0-1.0 706-2) [facility] CenterFluoroscopic procedure less than one hour maloilok1034-93-74 05:25:00 Test Item Value Reference Range Interpretation Comments IM GRANULOCYTES % (test code = IM 1.2 0.0-1.0 GRANULOCYTES %) [facility] CenterAutomated blood neutrophil count 2020-09-28 05:25:00 Test Item Value Reference Range Interpretation Comments Neutrophils # (Auto) (test code = 8.1 2.1-6.9 751-8) [facility] CenterBlood lymphocytes count (number/volume) 2020-09-28 05:25:00 Test Item Value Reference Range Interpretation Comments Lymphocytes # (Auto) (test code = 1.3 1.0-3.2 88659-3) [facility] CenterBlood monocytes automated count (number/volume)2020-09-28 05:25:00 Test Item Value Reference Range Interpretation Comments Monocytes # (Auto) (test code = 742-7) 0.7 0.2-0.8 [facility] CenterAutomated blood eosinophil count 2020-09-28 05:25:00 Test Item Value Reference Range Interpretation Comments Eosinophils # (Auto) (test code = 0.2 0.0-0.4 711-2) [facility] CenterAutomated blood basophil count (count/volume)2020-09-28 05:25:00 Test Item Value Reference Range Interpretation Comments Basophils # (Auto) (test code = 704-7) 0.0 0.0-0.1 [facility] CenterFluoroscopic procedure less than one hour gqsgaemn6873-35-38 05:25:00 Test Item Value Reference Range Interpretation Comments Absolute Immature Granulocyte (auto 0.12 0-0.1 (test code = Absolute Immature Granulocyte (auto) [facility] sodium measurement (moles/volume)2020-09-28 05:25:00 Test Item Value Reference Range Interpretation Comments Sodium Level (test code = 2951-2) 132 136-145 [facility]ererum or plasma potassium measurement (moles/volume)2020-09-28 05:25:00 Test Item Value Reference Range Interpretation Comments Potassium Level (test code = 2823-3) 3.3 3.5-5.1 [facility] Centererum or plasma chloride measurement (moles/volume)2020-09-28 05:25:00 Test Item Value Reference Range Interpretation Comments Chloride Level (test code = 2075-0) 106 98-107 [facility] Centererum or plasma carbon dioxide, total measurement (moles/volume)2020-09-28 05:25:00 Test Item Value Reference Range Interpretation Comments Carbon Dioxide Level (test code = 2028-02) [facility]ere[facility] or plasma anion ewf3894-67-17 05:25:00 Test Item Value Reference Range Interpretation Comments Anion Gap (test code = 37605-9) 9.3 8-16 [facility]ererum or plasma urea nitrogen measurement (mass/volume)2020-09-28 05:25:00 Test Item Value Reference Range Interpretation Comments Blood Urea Nitrogen (test code = 01-22 3094-0) [facility]ere[facility] or plasma creatinine measurement (mass/volume)2020-09-28 05:25:00 Test Item Value Reference Range Interpretation Comments Creatinine (test code = 2160-0) 0.83 0.72-1.25 [facility] Centererum or plasma urea nitrogen/creatinine mass glwsz1686-95-00 05:25:00 Test Item Value Reference Range Interpretation Comments BUN/Creatinine Ratio (test code = 12-22 3097-3) [facility] CenterEstimated glomerular filtration rate (GFR) vypcrwcafeodw0785-36-90 05:25:00 Test Item Value Reference Range Interpretation Comments Estimat Glomerular > 60 See_Comment [Automat ed message] The Filtration Rate (test system which generated code = [id number]) this resul t transmitted reference range : 60-. The reference r duane was not used to int erpret this result as normal/abnormal . [facility] CenterGlucose sbcvrpypwps5402-18-52 05:25:00 Test Item Value Reference Range Interpretation Comments Glucose Level (test code = VYT9798) 104 74-118 [facility]ererum or plasma calcium measurement (mass/volume)2020-09-28 05:25:00 Test Item Value Reference Range Interpretation Comments Calcium Level (test code = 87911-4) 7.4 8.4-10.2 [facility] Centererum or plasma total bilirubin measurement (mass/volume)2020-09-28 05:25:00 Test Item Value Reference Range Interpretation Comments Total Bilirubin (test code = 1975-2) 0.7 0.2-1.2 [facility] CenterFluoroscopic procedure less than one hour hlresnff1489-51-63 05:25:00 Test Item Value Reference Range Interpretation Comments Aspartate Amino Transf (AST/SGOT) (test 74 5-34 code = Aspartate Amino Transf (AST/SGOT)) [facility] Centererum or plasma alanine aminotransferase measurement (enzymatic activity/volume)2020-09-28 05:25:00 Test Item Value Reference Range Interpretation Comments Alanine Aminotransferase (ALT/SGPT) 107 0-55 (test code = 1742-6) [facility] Centererum or plasma protein measurement (mass/volume)2020-09-28 05:25:00 Test Item Value Reference Range Interpretation Comments Total Protein (test code = 2885-2) 4.2 6.5-8.1 [facility] Centererum or plasma albumin measurement (mass/volume)2020-09-28 05:25:00 Test Item Value Reference Range Interpretation Comments Albumin (test code = 1751-7) 1.9 3.5-5.0 [facility] CenterPlasma globulin measurement (mass/volume) 2020-09-28 05:25:00 Test Item Value Reference Range Interpretation Comments Globulin (test code = 23068-3) 2.3 2.3-3.5 [facility] Centererum or plasma albumin/globulin mass rxibi9640-71-14 05:25:00 Test Item Value Reference Range Interpretation Comments Albumin/Globulin Ratio (test code = 0.8 0.8-2.0 1759-0) [facility] Centererum or plasma alkaline phosphatase measurement (enzymatic activity/volume)2020-09-28 05:25:00 Test Item Value Reference Range Interpretation Comments Alkaline Phosphatase (test code = 100 40-150 6768-6) [facility] CenterTroponin I measurement by highly sensitive enzyme qkzfzjnjzng8732-82-12 05:25:00 Test Item Value Reference Range Interpretation Comments Troponin I (test code = 40090-7) 0.109 0-0.300 [facility] CenterCHES SINGLE (PORTABLE)2020-09-26 10:41:00[facility] 1930 Sex: [place] [address] Patient Name: JUSTICE HARDY MR #: [id number] : 1930 Age/Sex: 89/M Req #: [id number] [facility] Physician: ZACHARIAH SAINI MD Ordered by: ARASH CASTORENA MD Report #: [id number] Location: MED/SURG Room/Bed: [facility] Procedure: [id number] DX/CHEST SINGLE (PORTABLE) Exam Date: 09/26/20 Exam Time: 1015 REPORT STATUS: Signed EXAMINATION: CHEST SINGLE (PORTABLE) INDICATION: Shortness of breath COMPARISON: Chest CT 09/20/2020 FINDINGS: LINES/TUBES:EKG leads overlie the chest. LUNGS:The lungs are well-inflated. No focal consolidation or pulmonary edema. PLEURA:No pleural effusion or pneumothorax. MEDIASTINUM:The cardiomediastinal silhouette appears normal in size and shape. Atherosclerotic calcifications of the thoracic aorta. Separate findings of prior CABG. BONES/SOFT TISSUES:No acute osseous injury. Sternotomywires intact. ABDOMEN:No free air under the diaphragm. IMPRESSION: No focal pneumonia or pulmonary edema. Signed by: Schuyler Guerra MD on 09/26/2020 10:48 AM Dictated By: SCHUYLER GUERRA MD 104 Transcribed By: AYDEN on 09/26/20 1048 COPY TO: ARASH CASTORENA [facility] 2 VIEW 2020-09-26 09:13:00 [facility] : 1930 Sex: [place] [address] Patient Name: JUSTICE HARDY MR #: [id number] : 1930 Age/Sex: 89/M Req #: [id number] Adm Physician: ZACHARIAH SAINI MD Ordered by: JEANNINE SAINI MD Report #: [id number] Location: MED/SURG Room/Bed: [facility] Procedure: [id number] DX/ABDOMEN 2 VIEW Exam Date: 09/26/20 Exam Time: 614 REPORT STATUS: Signed Exam: KUB - 2 views Indication: Abdominal Pain Comparison: KUB 09/16/2020 Findings: Unchanged appearance of diffuse mildly distended loopsof small and large bowel with presence of air-fluid levels. Air remains present in the sigmoid colon and rectum. No free air. Postoperative surgical skin rod over the lower abdomen. IVC filter in place with tip at L2-3. No acute osseous injury. Impression: No significant interval change in mildly distended loops of small and large bowel. Although there are several air-fluid levels present, ileus remains more likely than small bowel obstruction. No free air. Signed by: Schuyler Guerra MD on 09/26/2020 9:20 AM Dictated By: SCHUYLER GUERRA MD 9 Transcribed By: AYDEN on 09/26/20919 COPY TO: JEANNINE SAINI MDBNP Bld-mCnc 2020-09-26 05:17:00 Test Item Value Reference Range Interpretation Comments B-Type Natriuretic Peptide (test code = 50.2 0-100 02421-4) [facility]ererum or plasma amylase measurement (enzymatic activity/volume)2020-09-26 05:17:00 Test Item Value Reference Range Interpretation Comments Amylase Level (test code = 1798-8) 98 25-125 [facility] Centererum or plasma lipase measurement (enzymatic activity/volume)2020-09-26 05:17:00 Test Item Value Reference Range Interpretation Comments Lipase (test code = 3040-3) 98 8-78 [facility] CenterABDOMEN 2 QOCH5542-01-64 23:59:00 [facility] : 1930 Sex: [place] [address] Patient Name: JUSTICE HARDY MR #: [id number] : 1930 Age/Sex: 89/M Req #: [id number] Adm Physician: ZACHARIAH SAINI MD Ordered by: JEANNINE SAINI MD Report #: [id number] Location: MED/SURG Room/Bed: [facility] Procedure: [id number] DX/ABDOMEN 2 VIEW Exam Date: 09/24/20 Exam Time: 2329 REPORT STATUS: Signed EXAM: Abdomen Radiograph 2 View(s) INDICATION: bloody stool 20200924 Y COMPARISON: 09/15/2019 FINDINGS: Prosthetic heart valve and sternotomy wires are seen at the lower chest. Trace left pleural effusion. Skin sta ples project over the midline abdomen. Metallic coils project over the pelvis. IVC filter is present. Diffuse gaseous distention of large and small bowel with couple of mildly dilated small bowel loops measuring up to 3 cm. Colon is distended but not dilated. Air is seen to the level of the rectum. A few air- fluid levels are seen in the right hemiabdomen. Hatley lucency in the upper abdomen on the upright view projecting over the T12 vertebral body , likely represents pneumoperitoneum IMPRESSION: 1. Overall appearance of postsurgical ileus with diffuse mildly dilated small bowel and distended air distended colon to the level of the rectum. Distal obstruction is not excluded. Recommend radiographic follow-up until resolution. 2. Hatley lucency projecting over the T12 vertebral body may represent pneumoperitoneum as seen on recent chest CT, possibly related to recent surgery. Signed by: Patricia Wheat MD on 09/25/2020 12:48 AM Dictated By: TIESHA WHEAT MD Transcribed By: AYDEN on 09/25/2047 COPY TO: JEANNINE SAINIerum or plasma magnesium measurement (mass/volume)2020-09-23 16:40:00 Test Item Value Reference Range Interpretation Comments Magnesium Level (test code = 54901-4) 1.5 1.3-2.1 [facility] CenterFluoroscopic procedure less than one hour xzenjfqq9527-35-85 08:51:00 Test Item Value Reference Range Interpretation Comments Differential Total Cells Counted (test 100 code = Differential Total Cells Counted) [facility] blood neutrophils/100 leukocytes 2020-09-22 08:51:00 Test Item Value Reference Range Interpretation Comments Neutrophils % (Manual) (test code = 86 40-74 89314-1) [facility] blood band neutrophils form/100 xdkxdezhua4782-49-48 08:51:00 Test Item Value Reference Range Interpretation Comments Band Neutrophils % (test code = 764-1) 0 [facility] blood lymphocytes/100 leukocytes 2020-09-22 08:51:00 Test Item Value Reference Range Interpretation Comments Lymphocytes % (Manual) (test code = 7 19-48 737-7) [facility] blood monocytes/100 leukocytes 2020-09-22 08:51:00 Test Item Value Reference Range Interpretation Comments Monocytes % (Manual) (test code = 7 3.4-9.0 744-3) [facility] CenterAutomated reticulocyte count as percentage of total apttmzrhthgo8367-15-45 05:15:00 Test Item Value Reference Range Interpretation Comments Percent Reticulocyte Count (test code = 1.5 0.8-2.2 82342-5) [facility] or plasma iron measurement (mass/volume)2020-09-21 05:15:00 Test Item Value Reference Range Interpretation Comments Iron Level (test code = 2498-4) 26 65-175 [facility]ererum or plasma iron binding capacity measurement (mass/volume)2020-09-21 05:15:00 Test Item Value Reference Range Interpretation Comments Total Iron Binding Capacity (test code 193 261-183 = 2500-7) [facility] Centererum or plasma iron saturation measurement (mass fraction)2020-09-21 05:15:00 Test Item Value Reference Range Interpretation Comments Percent Iron Saturation (test code = 13 15-50 2502-3) [facility]ererum or plasma transferrin measurement (mass/volume)2020-09-21 05:15:00 Test Item Value Reference Range Interpretation Comments Transferrin (test code = 3034-6) 138 174-364 [facility] CenterBlood cobalamin (vitamin B12) measurement (mass/volume)2020-09-21 05:15:00 Test Item Value Reference Range Interpretation Comments Vitamin B12 Level (test code = 22650-4) 591 213-816 [facility]ererum or plasma folate measurement (mass/volume)2020-09-21 05:15:00 Test Item Value Reference Range Interpretation Comments Folate (test code = 2284-8) 17.8 >3.0 [facility] CenterCT CHEST [id number] 21:42:00 [facility] : 1930 Sex[facility] M [facility] [address] [place] [address] Patient Name: JUSTICE HARDY MR #: [id number] : 1930 Age/Sex: 89/M Req #: [id number] Adm Physician: ZACHARIAH SAINI MD Ordered by: AJ FLYNN DO Report #: [id number] Location: MED/SURG Room/Bed: [facility] Procedure: [id number] CT/CT CHEST W Exam Date: 09/20/20 Exam Time: 2114 REPORT STATUS: Signed EXAM: CT Chest WITH contrast 09/20/2020 9:15 PM INDICATION: PE [id number] 2114 COMPARISON: None TECHNIQUE: Chest was scanned utilizing a multidetector helical scanner from the lung apex through the level of the adrenal glands without administration of IV contrast. Coronal and sagittal reformations were obtained. Routine protocol was performed. IV CONTRAST: 100 mL of Isovue-370 COMPLICATIONS: None RADIATION DOSE: Total DLP: 450 mGy*cm Estimated effective dose: (DLP x 0.014 x size factor) mSv CTDIvol has been reviewed. It is below the limits set by the Radiation Protocol Committee (RPC). FINDINGS: LINES/ TUBES: None. LUNGS AND AIRWAYS: Few small segmental pulmonary emboli are identified in the left upper lobe, left lower lobe, right lower lobe and right upper lobe. Pulmonary and gliosis seen in the right upper lobe pulmonary artery trunk. 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 Moderate atelectasis noted bilateral lung bases. Ill-defined groundglass haziness infiltrate identified in the left upper lung present infectious or inflammatory process. PLEURA: Trace bilateral pleural effusions are noted. HEART AND MEDIASTINUM: No mediastinal, hilar or axillary lymphadenopathy. The heart is normal in size.. There is no pericardial effusion. Pulmonary trunk is slightly prominent could be due to underlying pulmonary artery hypertension. No evidence of any right heart strain is a noted. UPPER ABDOMEN: Trace fluid noted in the abdomen. Evidence of pneumoperitoneum is noted. Abdomen was not evaluated on this study. BONES: Unremarkable. SOFT TISSUES: Unremarkable. IMPRESSION: 1. Bilateral pulmonary emboli are identified as described above. No evidence of any right heart strain. 2. Pulmonary trunk is slightly prominent could be due to underlying pulmonary artery hypertension. 3. Moderate atelectasis noted bilateral lung bases. Ill-defined groundglass haziness infiltrate identified in the left upper lung present infectious or inflammatory process. 4. Trace fluid noted in the abdomen. Evidence of pneumoperitoneum is noted. Abdomen was not evaluated on this study. This likely related to patient's recent abdominal surgery. Critical results of this exam were discussed with patient's nurse Jeana by direct telephonic conversation at the time of dictation. Signed by: Ezio Hester MD on 09/20/2020 10:00 PM Dictated By: EZIO HESTER MD 99 Transcribed By: AYDEN on 09/20/202199 COPY TO: AJ FLYNN DO Phosphorus lccmorxdewe2192-27-89 03:45:00 Test Item Value Reference Range Interpretation Comments Phosphorus Level (test code = [id number]) 0.8 2.3-4.7 [facility] CenterCHEST SINGLE (PORTABLE)2020-09-17 15:26:00[facility] : 1930 Sex: M [facility] [address] [place], [place] [address] Patient Name: JUSTICE HARDY MR #: [id number] : 1930 Age/Sex: 89/M Req #: [id number] Adm Physician: ZACHARIAH SAINI MD Ordered by: ZACHARIAH SAINI MD Report #: [id number] Location: ICU Room/Bed: ICU [facility] Procedure: [id number] DX/CHEST SINGLE (PORTABLE) Exam Date: 09/17/20 Exam Time: 1450 REPORT STATUS: Signed EXAMINATION: CHEST SINGLE (PORTABLE) INDICATION: SOB, tachypnea [id number] 1450 COMPARISON: Prior x-rays including most recent on 09/16/2020. FINDINGS: TUBES and LINES: Enteric tube terminates in thegastric fundus with sidehole at the gastroesophageal junction. Right internal jugular central venous catheter which terminates in the cavoatrial junction. LUNGS: Low lung volumes. Stable right infrahilar and retrocardiac opacities. PLEURA: No pleural effusion or pneumothorax. HEART AND MEDIASTINUM: The cardiomediastinal silhouette is within normal limits. There are atherosclerotic calcifications within the aorta. BONES AND SOFT TISSUES: Degenerative changes in the spineand shoulders. Soft tissues are unremarkable. Sternotomy wires. UPPER ABDOMEN: No free air un nichole the diaphragm. IMPRESSION: 1. Enteric tube terminates in the expected location of the gastric fundus with sidehole in the gastroesophageal junction. Consider advancement. 2. Right infrahilar and retrocardiac opacities most likely represent atelectasis. However, in the appropriate clinical context, developing atypical pneumonia can have a similar appearance. Signed by: Douglas Crum MD on 09/17/2020 4:11 PM Dictated By: DOUGLAS CRUM MD 10 Transcribed By: AYDEN on 09/17/201610 COPY TO: ZACHARIAH SAINI MD Prothrombin time (PT) in platelet poor plasma by coagulation jkfqg3801-65-45 10:55:00 Test Item Value Reference Range Interpretation Comments Prothrombin Time (test code = 5902-2) 16.5 11.9-14.5 [facility] CenterINR in Platelet poor plasma by Coagulation smnhi3060-12-38 10:55:00 Test Item Value Reference Range Interpretation Comments Prothromb Time International Ratio 1.25 (test code = 6301-6) [facility] CenterCHES XRAY LINE OXBNTNGBE1471-77-79 20:57:00[facility] : 1930 Sex: [place] [address] Patient Name: JUSTICE HARDY MR #: [id number] : 1930 Age/Sex: 89/M Req #: [id number] Adm Physician: ZACHARIAH SAINI MD Ordered by: ZACHARIAH SAINI MD Report #: [id number] Location: ICU Room/Bed: ICU 195-1 Procedure: [id number] DX/CHEST XRAY LINE PLACEMENT Exam Date: 09/16/20 Exam Time: 1954 REPORT STATUS: Signed EXAMINATION: CHEST XRAY LINE PLACEMENT INDICATION: NG TUBE PLACEMENT VERIFICATION 20200916 COMPARISON: CXR 09/15/2020 FINDINGS: TUBES and LINES: Enteric tube tip below left hemidiaphragm, likely within gastric lumen, sidehole port at GE junciton. Right IJ CVC, tip in right atrium. LUNGS: Low lung volumes. Infrahilar haziness. PLEURA: No pleural effusion or pneumothorax. HEART AND MEDIASTINUM: The cardiomediastinal silhouette is within normal limits. Valve replacement. BONES AND SOFT TISSUES: No acute osseous lesion. Soft tissues are unremarkable. Sternotomy wires. UPPER ABDOMEN: No free air under the diaphragm. IMPRESSION: Enteric tube tip below left hemidiaphragm, likely within gastric lumen, sidehole port at GE junciton. Infrahilar haziness, atelectasis or pneumonia/aspiration. Signed by: Eugenio Ye DO on 09/16/2020 9:02 PM Dictated By: EUGENIO YE DO 01 Transcribed By: AYDEN on 09/16/202101 COPY TO: ZACHARIAH SAINI [facility] SINGLE (PORTABLE)2020-09-15 14:55:00 [facility] : 1930 Sex[address] M [facility] [address] [place] [address] Patient Name: JUSTICE HARDY MR #: [id number] : 1930 Age/Sex: 89/M Req #: [id number] Adm Physician: ZACHARIAH SAINI MD Ordered by: DHARMESH LINARES MD Report #: [id number] Lo cation: MED/SURG Room/Bed: [facility] Procedure: [id number] DX/CHEST SINGLE (PORTABLE) Exam Date: 09/15/20 Exam Time: 1440 REPORT STATUS: Signed EXAMINATION: CHEST SINGLE (PORTABLE) INDICATION: Line placement COMPARISON: Chest radiograph earlier the same day FINDINGS: LINES/TUBES:Enteric tube with tip and side-port in the stomach. Right IJ central venous catheter terminates at the superior cavoatrial junction. EKG leads overlie the chest. LUNGS:The lungs are moderately inflated. There is perihilar fullness and indistinctness of the pulmonary vasculature. PLEURA:No pleural effusion or pneumothorax. MEDIASTINUM:The cardiomediastinal silhouette appears normal in size and shape. Atherosclerotic calcifications of the thoracic aorta. Aortic valvular prosthesis. BONES/SOFT TISSUES:No acute osseous injury. Sternotomy wires unchanged. ABDOMEN:No free air under the diaphragm. IMPRESSION: Right IJ central venous catheter terminates at the superior cavoatrial junction. NG tube with tip and side-port in the stomach. Interval development of central pulmonary vascular congestion and mild interstitial pulmonaryedema. Signed by: Schuyler Guerra MD on 09/15/2020 2:57 PM Dictated By: SCHUYLER GUERRA MD Electro nically Signed By: SCHUYLER GUERRA MD on 09/15/201456 Transcribed By: AYDEN on 09/15/201456 COPY TO: DHARMESH LINARES ACUTE SERIES W/PA CXR 2020-09-15 10:17:00 [facility] 1930 Sex: [place] [address] Patient Name: JUSTICE HARDY MR #: [id number] : 1930 Age/Sex: 89/M Req #: [id number] Adm Physician: ZACHARIAH SAINI MD Ordered by: DHARMESH LINARES MD Report #: [id number] Lo cation: MED/SURG Room/Bed: [facility] Procedure: [id number] DX/ABDOMEN ACUTE SERIES W/PA CXR Exam Date: 09/15/20 Exam Time: 0945 REPORT STATUS: Signed EXAMINATION: ABDOMEN ACUTE SERIES W/PA CXR INDICATION: Small bowel structures COMPARISON: Chest and abdominal radiographs 09/14/2020, CT abdomen and pelvis 09/12/2020 FINDINGS: LINES/TUBES:None LUNGS:Thelungs are moderately inflated. Mild bibasilar subsegmental atelectasis. No focal consolidation or pulmonary edema. PLEURA:No pleural effusion or pneumothorax. MEDIASTINUM:The cardiomediastin al silhouette appears normal in size and shape. Aortic valve prosthesis and sternotomy wires unchanged. BONES/SOFT TISSUES:No acute osseous injury. ABDOMEN:Dilated small bowel loops with air-fluid levels measure up to 4.2 cm maximum diameter. No free air. IMPRESSION: Slight interval decrease in number of dilated small bowel loops with air-fluid levels, consistent with ongoing small bowel obstruction. Maximum diameter of 4.2 cm. No free air. Signed by: Schuyler Guerra MDon 09/15/2020 10:20 AM Dictated By: SCHUYLER GUERRA MD 1020 Transcribed By: AYDEN on 09/15/20 1020 COPY TO: DHARMESH LINARES [facility] ACUTE SERIES W/TENZIN [id number] 10:50:00 [facility] : 1930 Sex: [place] [address] Patient Name: JUSTICE HARDY MR #: [id number] : 1930 Age/Sex: 89/M Req #: [id number] Adm Physician: ZACHARIAH SAINI MD Ordered by: DHARMESH LINARES MD Report #: [id number] Lo cation: MED/SURG Room/Bed: 107-1 Procedure: [id number] DX/ABDOMEN ACUTE SERIES W/PA CXR Exam Date: 09/14/20 Exam Time: 1020 REPORT STATUS: Signed X-ray abdomen acute series with 2 views of the abdomen and a single view of the chest INDICATION: sbo [id number] Comparison: X-ray dated 09/14/2019. Discussion: Lungs are grossly clear without consolidation, large effusion or pneumothorax. Midline sternotomy changes are noted with aortic valve replacement. Tortuous thoracic aorta is noted with significant atherosclerotic changes of the aortic knob. Similar to prior exam multiple dilated loops of small bowel are noted with multiple pathologic air-fluid levels. Colon is decompressed. Negative for pneumoperitoneum. Cholecystectomy changes are noted in the right upper quadrant. No acute osseous abnormality. IMPRESSION: Persistent findings of small bowel obstruction. Negative for pneumoperitoneum. Lungs are grossly clear. Signed by: Boom Castle MD on 09/14/2020 10:52 AM Dictated By: BOOM CASTLE MD 1052 Transcribed By: AYDEN on 09/14/20 1052 COPY TO: DHARMESH LINARES MDSerum or plasma creatine kinase measurement (enzymatic activity/volume)2020-09-13 11:24:00 Test Item Value Reference Range Interpretation Comments Creatine Kinase (test code = 2157-6) 385 30-200 [facility] creatine kinase MB measurement (mass/volume)2020-09-13 11:24:00 Test Item Value Reference Range Interpretation Comments Creatine Kinase MB (test code = 2.90 0-5.0 35700-9) [facility] [id number] 09:26:00 [facility] : 1930 Sex: [place] [address] Patient Name: JUSTICE HARDY MR #: [id number] : 1930 Age/Sex: 89/M Req #: [id number] Adm Physician: ZACHARIAH SAINI MD Ordered by: SHANNAN CERVANTES MD Report #: [id number] Location: MED/SURG Room/Bed: [facility] Procedure: [id number] DX/ABDOMEN 2 VIEW Exam Date: 09/13/20 Exam Time: 0635 REPORT STATUS: Signed Exam: KUB - 2 views Indication: Bowel Obstruction Comparison: CT abdomen and pelvis of 09/12/2020 Findings: Again seen are multiple dilated loops of small bowel which measure up to 3.7 cm maximum diameter with presence of air-fluid levels. No free air. Minimal gas in the large bowel. No acute osseous injury. Right upper quadrant cholecystectomy clips. Impression: Persistent findings of small bowel obstruction. No free air. Signed by: Schuyler Guerra MD on 09/13/2020 9:28 AM Dictated By: SCHUYLER GUERRA MD ElectronicallySigned By: SCHUYLER GUERRA MD on 09/13/20927 Transcribed By: AYDEN on 09/13/20927 COPY TO:SHANNAN CERVANTES MDFluoroscopic procedure less than one hour duration 2020-09-13 00:35:00 Test Item Value Reference Range Interpretation Comments Lactic Acid Level (test code = Lactic 0.7 0.5-2.0 Acid Level) [facility] Center[facility] procedure less than one hour [id number] 19:02:00 Test Item Value Reference Range Interpretation Comments Coronavirus (PCR) (test code = NOT DETECTED NOTDETECTED Coronavirus (PCR)) [facility] CenterCT [facility]/PEL WO [id number] 17:30[facility] 1930 Sex: [place] [address] Patient Name: JUSTICE HARDY MR #: [id number] : 1930 Age/Sex: 89/M Req #: [id number] [facility] Physician: Ordered by: SHANNAN CERVANTES MD Report #: [id number] Location: [facility] Room/Bed: Procedure: [id number] HOPD/CT ABD/PEL WO CONTRAST-HOPD Exam Date: 09/12/20 Exam Time: 1658 REPORT STATUS: Signed EXAM: CT Abdomen and Pelvis WITHOUT contrast INDICATION: abd pain, nausea, retching [id number] COMPARISON: CT abdomen and pelvis on 03/02/2020. TECHNIQUE: Abdomen and pelvis were scanned utilizing a multidetector helical scanner from the lung base to the pubic symphysis without administration of IV contrast. Absence of intravenous contrast decreases sensitivity for detection of focal lesions and vascular pathology. Coronal and sagittal reformations were obtained. Routine protocol was performed. IV CONTRAST: None ORAL CONTRAST: None COMPLICATIONS: None RADIATION DOSE: Total DLP: 455 mGy*cm Estimated effective dose: (DLP x 0.015 x size factor) mSv CTDIvol has been reviewed. It is below the limits set by the Radiation Protocol Committee (RPC). Dose modulation, iterative reconstruction, and/or weight based adjustment of the mA/kV was utilized to reduce the radiation dose to as low as reasonably achievable. FINDINGS: LINES and TUBES: None. LOWER THORAX: Partially imaged ascending aortic graft. Atherosclerotic calcific ation of the coronary vessels. There is bibasilar atelectasis. HEPATOBILIARY: No focal hepatic lesions. No biliary ductal dilation. GALLBLADDER: There are cholecystectomy clips. SPLEEN: No splenomegaly. PANCREAS: No focal masses or ductal dilatation. ADRENALS: No adrenal nodules KIDNEYS/URETERS: No hydronephrosis. There are unchanged bilateral renal cysts, the largest measuring approximately 6.2 cm in the right kidney with peripheral calcifications. No stones. GI TRACT: There is circumferential wall thickening of the proximal descending colonat the splenic flexure (series 2 images 11-14) without significant peripheral fat stranding. Thereare stable postoperative changes of central small bowel. Additionally, there is diffuse dilatationof the small bowel with air-fluid levels and transition point at the terminal ileum. No abnormalcolonic distention or wall thickening. There is diverticulosis coli without evidence of active infl ammation. Appendix is not clearly identified. There is however no fat stranding or adenopathy in the right lower quadrant to suggest appendicitis. PELVIC ORGANS/BLADDER: Unremarkable. LYMPH NODES: No lymphadenopathy. VESSELS: There is moderate atherosclerotic disease in the aorta and major arterial branches. PERITONEUM / RETROPERITONEUM: No free air or fluid. BONES: Unremarkable. SOFT TISSUES: There is a fat-containing umbilical hernia. IMPRESSION: 1. Small bowel obstruction with transition point in the terminal ileum. 2. Circumferential wall thickening of the proximal descending colon at the splenic flexure without significant peripheral fat stranding. Findings are suspicious for sequela of chronic inflammation versus colonic mass (series 2 images 11-14). Recommend gastroenterology referral for colonoscopy correlation. 3. Diverticulosis coli without evidence of active diverticulitis. Signed by: Douglas Crum MD on 09/12/2020 5:45 PM Dictated By: DOUGLAS CRUM MD 44 Transcribed By: AYDEN on 09/12/201744 COPY TO: SHANNAN CERVANTES MDCT ABDOMEN/PELVIS [id number] 15:20:00 [place] [address] Patient Name: JUSTICE HARDY MR #: [id number] : 1930 Age/Sex: 89/M Req #: [id number] [facility] Physician: Or dered by: JEANNINE SAINI MD Report #: [id number] Location: CT Room/Bed: Procedure: [id number] CT/CT ABDOMEN/PELVISWO Exam Date: 03/02/20 Exam Time: 1400 REPORT STATUS: Signed CT of the abdomen and pelvis, without contrast, 03/02/2020. History: Abdominal pain and bloating. Comparison: None available. Technique: Multidetector CT scanning of the abdomen and pelvis was performed from the level of the lung bases to the inferior pubic rami without intravenous or oral contrast. Coronal and sagittal multiplanar reformations were obtained. RADIATION DOSE: Total DLP: 207 mGy*cm Dose modulation, iterative reconstruction, and/or weight based adjustment of the mA/kV was utilized to reduce the radiation dose to as low as reasonably achievable. Discussion: Examination is limited without contrast. Lung bases: No visualized abnormalities. Abdomen: Cholecystectomy clips are present. Multiple simple bilateral renal cysts are present, the largest on the right measuring 6.2 cm and the largest on the left measuring 4.8 cm. The liver, biliary tree, spleen, pancreas, and adrenal glands are unremarkable. The abdominal aorta is mildly calcified but within normal limits for size. There is no bowel dilatation. There is no evidence of adenopathy or free fluid. A fat-containing supraumbilical ventral hernia is present with a 3 cm base. Pelvis: The bladder and prostateare unremarkable. There is no evidence of free fluid or adenopathy. Fat-containing inguinal hernias are present bilaterally. Bones and soft tissues: Degenerative changes are present throughout the lumbar spine without evidence of lytic or sclerotic lesion. IMPRESSION: 1. Bilateral benign appearing renal cysts. 2. Fat-containing ventral and inguinal hernias. 3. Status post cholecystectomy. Otherwise unremarkable noncontrast exam. Signed by: Tiburcio Mireles on 03/02/2020 3:28 PM Dictated By: TIBURCIO MIRELES MD 1528 Transcribed By: AYDEN on 03/02/20 1528 COPY TO: JEANNINE SAINI MD
[2020-10-26 17:45] LABS: Absolute Lymphocytes (CBC) 1.7 K/uL (0.7-4.9); Basophils % 1.4 % (0-1.3); Lymphocytes % 23.7 % (15.3-44.8); RBC Red Blood Cell Count 3.81 M/uL (4.33-5.43)
[2020-10-26 17:45] LABS: Urine Blood 3+ (Negative); Urine Glucose Negative (Negative); Urine Protein Negative (Negative)
[2020-10-26 17:54] LABS: Protime INR 1.18
[2020-10-26 18:30] LABS: ALT/SGPT 22 U/L (12-78); AST/SGOT 22 U/L (15-37); Albumin 2.8 g/dL (3.4-5.0); Alkaline Phosphatase 101 U/L (45-117); BUN Blood Urea Nitrogen 11 mg/dL (7-18); Bicarbonate 24 mmol/L (21-32); Bilirubin Direct 0.2 mg/dL (0-0.2); Bilirubin Total 0.4 mg/dL (0.2-1.0); Glucose Level 81 mg/dL (74-106); Lipase 268 U/L (73-393); Potassium 3.7 mmol/L (3.5-5.1); Protein, Total 6.7 g/dL (6.4-8.2); Sodium Level 134 mmol/L (136-145)
[2020-10-26] MEDS ORDERED: METHYLPREDNISOLONE 125 MG INJ ONE (18:42)
[2020-10-26] MEDS ORDERED: DIPHENHYDRAMINE 50 MG/ML VIAL ONE (18:43)
[2020-10-26 18:45] LABS: Urine Bacteria <20 /HPF (NONE SEEN)
--- NOTE | 2020-10-26 19:07 | RAD REPORT ---
EXAM DESCRIPTION: CT - Abdomen Pelvis W Contrast - 10/26/2020 6:47 pm CLINICAL HISTORY: HEMATURIA COMPARISON: Abdomen Pelvis W Contrast dated 10/08/2015; Abdomen W Contrast dated 11/11/2018 TECHNIQUE: Biphasic, helical CT imaging of the abdomen and pelvis was performed following 100 ml non -ionic IV contrast. No oral contrast administered. All CT scans are performed using dose optimization technique as appropriate and may include automated exposure control or mA/KV adjustment according to patient size. FINDINGS: Trace pleural effusion in each posterior gutter with atelectasis. The liver, spleen, and pancreas show no suspicious findings. Gallbladder is absent. No abnormal bilia ry tree dilatation. Renal function is symmetric. No pyelonephritis or acute renal parenchymal process seen. Patient has n umerous variably sized renal cysts. No worrisome characteristics. No obstructing or nonobstructing ca lculi seen. Urinary bladder is well filled. Juarez catheter is in place. Air within the lumen is presu mably from the catheter insertion procedure. No adrenal abnormalities. No gastric dilatation or gastric wall thickening. No dilated small bowel loops seen. A few of the sma ll bowel loops are prominent but this is nonspecific. Small bowel axvb-zu-syeu anastomosis is seen in the right mid abdomen. A large stool volume distends but does not dilate the colon from cecum to david cending colon. No abnormal stool volume in the rectosigmoid colon. Surgical staple line is seen in th e distal rectum. No free air or pneumatosis. No abnormal free fluid collection. No mass or bulky lymphadenopathy. Se veral small hernia defects are seen in the supraumbilical midline abdominal wall. No bowel involvemen t. Prominent disc and bony degenerative changes are present. Dense arterial tree calcifications are seen . IVC filter is in place. IMPRESSION: Large stool volume distending the colon from cecum through descending colon. No acute re ctosigmoid finding. No obstruction, free air or surgically emergent finding. No abscess or postsurgical complication seen.
--- NOTE | 2020-10-26 20:12 | ER ---
Nurse's Notes [facility] Name: Benito Castaneda Age: 89 yrs Sex: Male : 1930 Arrival Date: 10/26/2020 Time: 15:11 Bed 18 Private MD: Yoel Lea R Diagnosis: Hematuria, unspecified Presentation: 10/26 15:11 Chief complaint: Patient states: i have blood in my urine that started this morning, i tw2 have a quiroz in place, i had abdominal surgery, i had part of my intestines removed, no pain. Coronavirus screen: At this time, the client does not indicate any symptoms associated with coronavirus-19. Ebola Screen: Patient denies travel to an Ebola-affected area in the 21 days before illness onset. Initial Sepsis Screen: Does the patient meet any 2 criteria? No. Patient's initial sepsis screen is negative. Does the patient have a suspected source of infection? No. Patient's initial sepsis screen is negative. Risk Assessment: Do you want to hurt yourself or someone else? Patient reports no desire to harm self or others. Note noted quiroz in place, with drainage bag showing bloody urine approx 300 ml noted. Onset of symptoms was October 26, 2020. 15:11 Method Of Arrival: Ambulatory tw2 15:11 Acuity: ANT 3 tw2 Triage Assessment: 15:11 General: Appears in no apparent distress. slender, well groomed, Behavior is calm, tw2 cooperative, appropriate for age. Pain: Denies pain. Historical: - Allergies: 15:14 Cardura; tw2 15:14 Iodine; (fine with benadryl); tw2 - PMHx: 15:14 CVA; Hypertension; Myocardial infarction; Prostate Cancer; tw2 - PSHx: 15:14 Bypass; aortic valve replacement; part of intestine removed 1 month ago; tw2 - Immunization history:: Adult Immunizations. - Social history:: Smoking status: . Screenin:50 Abuse screen: Denies threats or abuse. Nutritional screening: No deficits noted. em Tuberculosis screening: No symptoms or risk factors identified. Fall Risk None identified. Assessment: 15:50 General: Appears in no apparent distress. comfortable, Behavior is calm, cooperative, em appropriate for age. Pain: Denies pain. Neuro: Level of Consciousness is awake, alert, obeys commands, Oriented to person, place, time, situation. Cardiovascular: Capillary refill < 3 seconds Patient's skin is warm and dry. Chest pain is denied. Respiratory: Airway is patent Respiratory effort is even, unlabored, Respiratory pattern is regular, symmetrical. GI: Patient currently denies abdominal pain, nausea. : Quiroz in place to gravity drainage Urine is blood tinged, blood clots noted in the Quiroz bag, denies any dysuria or pain in suprapubic area. Derm: Skin is intact, is healthy with good turgor, Skin is pink, warm \T\ dry. Musculoskeletal: Capillary refill < 3 seconds, Range of motion: intact in all extremities. 18:00 Reassessment: Patient appears in no apparent distress at this time. Patient and/or em family updated on plan of care and expected duration. Pain level reassessed. Patient is alert, oriented x 3, equal unlabored respirations, skin warm/dry/pink. 18:34 Reassessment: Patient appears in no apparent distress at this time. pt medicated for em for CT, CT notified. Vital Signs: 15:11 BP 145 / 69; Pulse 85; Resp 17; Temp 98.1(TE); Pulse Ox 100% on R/A; Weight 54.43 kg tw2 (R); Height 5 ft. 4 in. (162.56 cm); Pain 0/10; 18:00 BP 191 / 80; Pulse 91; Resp 18; Pulse Ox 99% on R/A; em 19:45 BP 178 / 89; Pulse 71; Resp 16; Pulse Ox 96% ; sf 15:11 Body Mass Index 20.60 (54.43 kg, 162.56 cm) tw2 ED Course: 15:11 Patient arrived in ED. mr 15:11 Yoel Lea MD is Private Physician. mr 15:13 Triage completed. tw2 15:13 Arm band placed on. tw2 16:00 Angel Ruff RN is Primary Nurse. em 16:05 Anoop Rodriguez PA is PHCP. cp 16:05 Domo Stewart MD is Attending Physician. cp 18:04 Urine collected: Quiroz catheter specimen, cloudy. Inserted saline lock: 20 gauge in mh5 right wrist, using aseptic technique. Blood collected. 18:05 Patient has correct armband on for positive identification. Bed in low position. Call [facility] light in reach. Side rails up X 1. Adult w/ patient. Warm blanket given. engine monitor on. Pulse ox on. NIBP on. 18:06 Urine Microscopic Only Sent. 5 18:06 Basic Metabolic Panel Sent. 5 18:06 Hepatic Function Sent. [facility] 18:06 Lipase Sent. [facility] 18:47 CT Abd/Pelvis - IV Contrast Only In Process Unspecified. EDIL 20:22 No provider procedures requiring assistance completed. IV discontinued, intact, sf bleeding controlled, No redness/swelling at site. Pressure dressing applied. 20:30 Primary Nurse role handed off by Angel Ruff, RN mw2 Administered Medications: 18:28 Drug: SOLU-Medrol (methylPrednisoLONE) 125 mg Route: IVP; Site: right wrist; em 20:10 Follow up: Response: No adverse reaction sf 18:31 Drug: Benadryl (diphenhydrAMINE) 25 mg Route: IVP; Site: right wrist; em 20:10 Follow up: Response: No adverse reaction sf 20:10 Not Given (Physician Discretion): NS 0.9% 250 ml IV at calculated rate once sf 20:15 Drug: Rocephin (cefTRIAXone) 1 grams Route: IV; Rate: bolus; Site: right hand; sf 20:21 Follow up: Response: No adverse reaction; IV Status: Completed infusion; IV Intake: 10mlsf Intake: 20:21 IV: 10ml; Total: 10ml. sf Output: 20:21 Urine: 2600ml (Quiroz); Total: 2600ml. sf Outcome: 20:11 Discharge ordered by . cp 20:22 Discharged to home via wheelchair. sf 20:22 Condition: stable 20:22 Discharge instructions given to patient, family, Instructed on discharge instructions, follow up and referral plans. medication usage, Demonstrated understanding of instructions, follow-up care, medications, Prescriptions given X 1. 20:44 Patient left the ED. sf Signatures: Dispatcher [employer] Flakita Cox Angel Ruff, RN RN em Anoop Rodriguez PA PA cp Wise, Tara, RN RN 2 Nida Dixon 5 Marya Hollis 2 Kyle Granados RN RN sf
--- NOTE | 2020-10-26 20:12 | EDPHYS ---
Physician Documentation [facility] Name: Benito Castaneda Age: 89 yrs Sex: Male : 1930 Arrival Date: 10/26/2020 Time: 15:11 Bed 18 Private MD: Yoel Lea R ED Physician Domo Stewart HPI: 10/26 16:30 This 89 yrs old Male presents to ER via Ambulatory with complaints of Urinary cp Problem. Historical: - Allergies: 15:14 Cardura; tw2 15:14 Iodine; (fine with benadryl); tw2 - PMHx: 15:14 CVA; Hypertension; Myocardial infarction; Prostate Cancer; tw2 - PSHx: 15:14 Bypass; aortic valve replacement; part of intestine removed 1 month ago; tw2 - Immunization history:: Adult Immunizations. - Social history:: Smoking status: . ROS: 16:35 Constitutional: Negative for body aches, chills, fever, poor PO intake. cp 16:35 Eyes: Negative for injury, pain, redness, and discharge. cp 16:35 ENT: Negative for injury, pain, and discharge. 16:35 Cardiovascular: Negative for chest pain, palpitations. 16:35 Respiratory: Negative for cough, shortness of breath, wheezing. 16:35 Abdomen/GI: Negative for abdominal pain, nausea, vomiting, and diarrhea, constipation. 16:35 Back: Negative for pain at rest, pain with movement, radiated pain. 16:35 : Positive for hematuria, Negative for flank pain, burning with urination, testicular pain 16:35 Skin: Negative for rash. 16:35 Neuro: Negative for altered mental status, headache, syncope, weakness. 16:35 All other systems are negative. Exam: 16:40 Constitutional: The patient appears in no acute distress, alert, awake, cp non-diaphoretic, non-toxic, well developed, frail. 16:40 Head/Face: Normocephalic, atraumatic. cp 16:40 Eyes: Periorbital structures: appear normal, Conjunctiva: normal, no exudate, no injection, Sclera: no appreciated abnormality, Lids and lashes: appear normal, bilaterally. 16:40 ENT: External ear(s): are unremarkable, Nose: is normal, Mouth: Lips: moist, Oral mucosa: moist, Posterior pharynx: Airway: no evidence of obstruction, patent. 16:40 Chest/axilla: Inspection: normal. 16:40 Cardiovascular: Rate: normal, Rhythm: regular, Edema: is not appreciated, JVD: is not appreciated. 16:40 Respiratory: the patient does not display signs of respiratory distress, Respirations: normal, no use of accessory muscles, no retractions, labored breathing, is not present, Breath sounds: are clear throughout, no decreased breath sounds. 16:40 Abdomen/GI: Inspection: abdomen appears normal, Bowel sounds: active, all quadrants, Palpation: abdomen is soft and non-tender, in all quadrants. 16:40 Back: pain, is absent, ROM is normal. 16:40 Neuro: Orientation: to person, place \T\ time. Mentation: is normal. Vital Signs: 15:11 BP 145 / 69; Pulse 85; Resp 17; Temp 98.1(TE); Pulse Ox 100% on R/A; Weight 54.43 kg tw2 (R); Height 5 ft. 4 in. (162.56 cm); Pain 0/10; 18:00 BP 191 / 80; Pulse 91; Resp 18; Pulse Ox 99% on R/A; em 19:45 BP 178 / 89; Pulse 71; Resp 16; Pulse Ox 96% ; sf 15:11 Body Mass Index 20.60 (54.43 kg, 162.56 cm) tw2 MDM: 16:17 Patient medically screened. cp 17:00 Differential diagnosis: UTI, Juarez catheter problem, prostatitis, urethritis. cp 20:10 Data reviewed: vital signs, nurses notes, lab test result(s), radiologic studies, CT cp scan. 20:10 Counseling: I had a detailed discussion with the patient and/or guardian regarding: the cp historical points, exam findings, and any diagnostic results supporting the discharge/admit diagnosis, lab results, radiology results, the need for outpatient follow up, an scoop filler, to return to the emergency department if symptoms worsen or persist or if there are any questions or concerns that arise at home. Response to treatment: the patient's symptoms have mildly improved after treatment, and as a result, I will discharge patient. ED course: VSS. Labs and radiology studies reviewed. Will discharge to home for continued monitoring. 10/26 16:17 Order name: Basic Metabolic Panel; Complete Time: 19:17 cp 10/26 19:18 Interpretation: Normal except: NA 134. cp 10/26 16:17 Order name: CBC with Diff; Complete Time: 17:55 cp 10/26 17:55 Interpretation: Normal except: RBC 3.81; HGB 11.8; HCT 35.0; BASO% 1.4. cp 10/26 16:17 Order name: Hepatic Function; Complete Time: 19:17 cp 10/26 16:17 Order name: Lipase; Complete Time: 19:17 cp 10/26 16:17 Order name: PT-INR; Complete Time: 17:55 cp 10/26 16:17 Order name: Ptt, Activated; Complete Time: 17:55 cp 10/26 16:17 Order name: IV Saline Lock; Complete Time: 18:06 cp 10/26 16:17 Order name: Urine Microscopic Only; Complete Time: 19:17 cp 10/26 19:20 Interpretation: Normal except: URBC 5-10. cp 10/26 17:45 Order name: Urine Dipstick-Ancillary; Complete Time: 17:55 EDMS 10/26 17:56 Order name: CT Abd/Pelvis - IV Contrast Only; Complete Time: 19:17 cp 10/26 16:17 Order name: Labs collected and sent; Complete Time: 18:06 cp 10/26 16:17 Order name: Cath; Complete Time: 18:14 cp Administered Medications: 18:28 Drug: SOLU-Medrol (methylPrednisoLONE) 125 mg Route: IVP; Site: right wrist; em 20:10 Follow up: Response: No adverse reaction sf 18:31 Drug: Benadryl (diphenhydrAMINE) 25 mg Route: IVP; Site: right wrist; em 20:10 Follow up: Response: No adverse reaction sf 20:10 Not Given (Physician Discretion): NS 0.9% 250 ml IV at calculated rate once sf 20:15 Drug: Rocephin (cefTRIAXone) 1 grams Route: IV; Rate: bolus; Site: right hand; sf 20:21 Follow up: Response: No adverse reaction; IV Status: Completed infusion; IV Intake: 10mlsf Disposition: 10/27 08:00 Co-signature as Attending Physician, Domo Stewart MD I agree with the assessment and kdr plan of care. Disposition: 10/26/20 20:11 Discharged to Home. Impression: Hematuria, unspecified. - Condition is Stable. - Discharge Instructions: Hematuria, Adult. - Prescriptions for Cipro 500 mg Oral Tablet - take 1 tablet by ORAL route every 12 hours for 7 days; 14 tablet. - Medication Reconciliation Form, Thank You Letter, Antibiotic Education, Prescription Opioid Use form. - Follow up: Private Physician; When: 1 - 2 days; Reason: Recheck today's complaints. - Problem is new. - Symptoms have improved. Signatures: Dispatcher [employer] EDMS Domo Stewart MD MD kdr Angel Ruff RN RN em Anoop Rodriguez PA PA cp Catherine Junior RN RN tw2 Kyle Granados RN RN sf Corrections: (The following items were deleted from the chart) 10/26 20:44 20:11 10/26/2020 20:11 Discharged to Home. Impression: Hematuria, unspecified. sf Condition is Stable. Forms are Medication Reconciliation Form, Thank You Letter, Antibiotic Education, Prescription Opioid Use. Follow up: Private Physician; When: 1 - 2 days; Reason: Recheck today's complaints. Problem is new. Symptoms have improved. cp
[2020-10-26] MEDS ORDERED: CEFTRIAXONE/SWI 1gm 1 GM/10 ML SYR ONE (20:32)
[2020-10-26 21:22] VITALS: TEMP 98.1
[2020-10-26 21:25] VITALS: BP 178/89; O2SAT 96
== END 2020-10-26 20:44 | disposition home or self-care (01) ==
LOC: ER 15:04
DX: R31.9 Hematuria, unspecified (principal); I10 Essential (primary) hypertension; Z95.1 Presence of aortocoronary bypass graft; Z95.4 Presence of other heart-valve replacement; Z85.46 Personal history of malignant neoplasm of prostate
CPT/HCPCS: 85025; 80048; 36415; 85610; 80076; 85730; 83690; 74177; 99284; Q9967; J1200; J0696; J2930; 81003; 81015

== ENCOUNTER 2020-12-30 11:53 | Emergency (ER) | payer OTHER, BC ==
--- OUTSIDE RECORDS SUMMARY | 2020-12-30 12:04 | XMS REPORT | Continuity of Care Document ---
:1930 Author Organization [facility] t Address [address] [place] [address] Care Team Providers Name Role Phone NONSTAFF Primary Care Physician Unavailable Melody Whaley Attending Clinician Doctor Unassigned, Name Attending Clinician Unavailable Iggy GARCIA Attending Clinician Fifi GARCIA, O. Attending Clinician MD FIFI O. Attending Clinician Unavailable SAINI Attending Clinician Unavailable SAINI Attending Clinician Unavailable FIFI Admitting Clinician Unavailable MD FIFI O. Admitting Clinician Unavailable SAINI Admitting Clinician Unavailable Payers Payer Name Policy Type Policy Effective Date Expiration Date Sour ce Number MEDICAREMEDICARE PART [id number] 1996 Sumit Dodson AND 00:00:00 Zoroastrian [id number] 1996- [facility] BCBSBCBS CHOICE [id number] 2015 [place] PPO/FEDERAL EMPL 00:00:00 Methodis t [id number] 2015- PresentPPO DEPT OF [id number] [place] AFFAIRSDEPT OF 00:00:00 Zoroastrian [id number] 05/2017-PresentMilita [facility] [id number] [address] [facility] [address] [place] [place] Employees 00:00:00 [facility] Medicare A & B [id number] [address] [facility] [address] [facility] u[facility] 00:00:00 [facility] Problems Condition Condition Condition Status Onset Resolution Last Treating Co mments Source Name Details Category Date Date Treatment Clinician Date Generalize Generalize Disease Active [place] d weakness d weakness 12-04 Me thodi 00:00: st 00 Confusion Confusion Disease Active Ainsley ston 11-30 Methodi 00:00: st 00 Nonrheumat Nonrheumat Disease Active Overview : [place] ic aortic ic aortic [facility] ethodi valve valve 00:00: g of this stenosis stenosis 00 note might be different from the original. Added automatic ally from request for surgery [id number] Small Problem Active [facility] St. bowel [facility] - obstructio Patien t n [facility] Nausea Problem Active [facility] Patient [facility] Hypomagnes Problem Active [facility] S t. [facility] Leukocytos Problem Active [facility] S t. is [facility] Hypertensi Problem Active [facility] S t. 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 Iodine Propensi Active Hives [place] And ty to 11-30 Methodi Iodide adverse 00:00: st Containi reaction 00 ng s to Products drug Atorvast Propensi Active Other (See Unknown [place] atin ty to Comments) 11-30 reaction, Meth marcella adverse 00:00: patient st reaction 00 daughter s to confirmed drug allergy with patients cardiolog ist. Iodine Allergy Active [facility] St. to 3 [facility]anc 00:00: Patient e 00 [facility] Doxazosi Allergy Active 2018-[address] [facility] [facility] to 08-16 [facility] 00:00: Patient e 00 [facility] Family History Family Member Diagnosis Comments Start Date Stop Date Source Natural mother Alzheimer's disease Jo Ann maldonado Zoroastrian Natural sister Other [place] Me thodist Natural brother Heart disease [place] Zoroastrian Natural father Heart disease [place] Zoroastrian Natural father Hypertension [place] Zoroastrian Social History Social Habit Start Date Stop Date Quantity Comments Source History of tobacco Current smoker [place] use Zoroastrian Exposure to Not sure [place] SARS-CoV-2 (event) Method ist Cigarettes smoked 2017-12-12 2017-12-12 [place] current (pack per 00:00:00 00:00:[address] day) - Reported Cigarette 2017-12-12 2017-12-12 [place] pack-years 00:00:00 00:00:00 Zoroastrian Tobacco use and 2017-12-12 2017-12-12 Never used [place] exposure 00:00:00 00:00:00 Zoroastrian Alcohol intake 2017-12-12 2017-12-12 Current drinker [place] 00:00:00 00:00:00 of alcohol Zoroastrian (finding) Alcohol Comment 2017-12-10 2017-12-10 ocassional [place] 00:00:00 00:00:00 Zoroastrian Sex [birth year] [place] 00:00:00 00:00:00 Zoroastrian Smoking Status Start Date Stop Date Source Former smoker 2017-12-12 00:00:00 2017-12-12 00:00:00 Fer [place] Medications Ordered Filled Start Stop Current Ordering Indication Dosage Frequency Signature Comments Components Source Medication Medication Date Date Medication? Clinician (SIG) Name Name tamsulosin 202- No .4mg QD Take 0.4 [place] (FLOMAX) 6-07 06-07 mg by Methodi 0.4 mg 15:23: 00:[address] capsule 43 :00 daily. psyllium Yes 1{scoop QD Take 1 [place] seed, with 6-07 } Scoop by Metho di dextrose, 15:23: mouth st (FIBER 39 nightly as ORAL) needed. apixaban Yes 2.5mg Q.5D Take 2.5 [place] (ELIQUIS) 6-07 mg by Methodi 2.5 mg 15:23: mouth 2 st tablet 39 (two) times a day. Indication : DVT, pulmonary embolism. clonIDINE Yes .1mg Q.5D Take 0.1 [place] (CATAPRES) 6-07 mg by Methodi 0.1 MG 15:23: mouth 2 st tablet 39 (two) times a day. finasteride Yes 5mg QD Take 5 mg [place] (PROSCAR) 5 6-07 by mouth Meth marcella mg tablet 15:23: daily. st 39 lisinopriL Yes 5mg Q.5D Take 5 mg [place] (PRINIVIL) 6-07 by mouth 2 Met hodi 5 mg tablet 15:23: (two) st 39 times a day. tamsulosin 2020- Yes .4mg Q.5D Take 1 [place] (FLOMAX) 12-04 capsule Methodi 0.4 mg 00:00: 23:59 (0.[address] capsule 00 :00 total) by mouth 2 (two) times a day for 30 days. levoFLOXaci 2020- No 500mg QD Take 1 [place] 12-04 tablet Methodi (Levaquin) 00:00: 23:59 ([address] 500 MG 00 :00 total) by tablet mouth daily for 4 days. traMADoL 2020- No acute pain 50mg Q6H Take 50 mg [place] (ULTRAM) 50 11-30 by mouth Met hodi mg tablet 20:42: 00:[address] 31 :00 (six) hours as needed for moderate pain .acute pain. aspirin 2020- No 81mg QD Take 1 [place] (ECOTRIN) 01-15- tablet (81 Met hodi 81 MG 00:00: 00:00 mg total) st enteric 00 :00 by mouth coated daily. tablet eszopiclone 2020- No 2mg QD Take 2 mg [place] (LUNESTA) 2 08-28-03 by mouth Met hodi MG tablet 00:00: 00:00 nightly as s t 00 :00 needed for sleep. omeprazole Yes 40mg QD Take 40 mg [place] (PriLOSEC) 1-19 by mouth Metho di 40 MG 00:00: daily. st capsule 00 amLODIPine 2018-2020- No 5mg QD 5 mg every [place] (NORVASC) 5 07-07 06-03 morning. Met hodi mg tablet 00:00: 00:00 st 00 :00 Amlodipine Amlodipine Yes [address] Besylate Besylate [facility] - Patient s [facility] Aspirin Aspirin Yes Daily [facility] (Aspir 81) (Aspir 81) Tal es - 81 Mg 81 Mg Patient TABLET. TABLET.DR lino [facility] Hydrochloro Hydrochloro Yes 12.[address] thiazide thiazide [facility] - (Hydrochlor (Hydrochlor P atient othiazide*) othiazide*) s 25 Mg 25 Mg Medical TABLET TABLET Center Tamsulosin Tamsulosin Yes .[address] Hcl Hcl [facility] - (Flomax*) (Flomax*) Patie nt 0.4 Mg CAP 0.4 Mg CAP [facility] Vital Signs Vital Name Observation Time Observation Value Comments Source Heart rate 2020-12-04 12:45:42 79 /min [facility] Body temperature 2020-12-04 12:45:42 36.44 Ayana [facility] Zoroastrian Respiratory rate 2020-12-04 12:45:42 18 /min [facility] Zoroastrian Oxygen saturation in 2020-12-04 12:45:42 96 /min [facility] Arterial blood by Pulse oximetry Systolic blood 2020-12-04 12:10:40 133 mm[Hg] Jermaine n Zoroastrian pressure Diastolic blood 2020-12-04 12:10:40 67 mm[Hg] [place] Zoroastrian pressure Body weight 2020-12-04 06:17:00 55.[address] [facility] BMI 2020-12-04 06:17:00 20.93 kg/m2 [facility] BP Diastolic 2020-09-28 12:46:00 76 mm[Hg] [facility] BP Systolic 2020-09-28 12:46:00 149 mm[Hg] [facility] Oxygen saturation by 2020-09-28 12:46:00 99 /min [facility] - Pulse oximetry Patients [facility] Heart Rate 2020-09-28 12:46:00 85 /min [facility] Respiratory rate 2020-09-28 12:46:00 22 /min [facility] Body Temperature 2020-09-28 12:46:00 97.7 [degF] [facility] Heart Rate 2020-09-28 08:42:00 81 /min [facility] Res[facility] rate 2020-09-28 08:42:00 24 /min [facility] Body Temperature 2020-09-28 08:42:00 97.4 [degF] [facility] BP Diastolic 2020-09-28 08:42:00 60 mm[Hg] [facility] BP Systolic 2020-09-28 08:42:00 141 mm[Hg] [facility] Oxygen saturation by 2020-09-28 08:42:00 96 /min [facility] - Pulse oximetry Patients [facility] BP Diastolic 2020-09-28 08:36:00 60 mm[Hg] [facility] BP Systolic 2020-09-28 08:36:00 141 mm[Hg] [facility] Oxygen saturation by 2020-09-28 08:36:00 96 /min [facility] - Pulse oximetry Patients [facility] Heart Rate 2020-09-28 08:36:00 81 /min [facility] Center Respiratory rate 2020-09-28 08:36:00 24 /min [facility] Patients Med[facility] l [place] Body Temperature 2020-09-28 08:36:00 97.4 [degF] [facility] Oxygen saturation by 2020-09-28 08:17:00 96 /min [facility] - Pulse oximetry Patients [facility] Heart Rate 2020-09-28 08:17:00 80 /min [facility] Respiratory rate 2020-09-28 08:17:00 20 /min [facility] Oxygen saturation by 2020-09-28 07:49:00 96 /min [facility] - Pulse oximetry Patients [facility] Heart Rate 2020-09-28 07:49:00 80 /min [facility] Respiratory rate 2020-09-28 07:49:00 20 /min [facility] BP Diastolic 2020-09-28 04:00:00 41 mm[Hg] [facility] BP Systolic 2020-09-28 04:00:00 107 mm[Hg] [facility] Oxygen saturation by 2020-09-28 04:00:00 96 /min [facility] - Pulse oximetry Patients [facility] Heart Rate 2020-09-28 04:00:00 85 /min [facility] Res[facility] rate 2020-09-28 04:00:00 20 /min [facility] [place] Body Temperature 2020-09-28 04:00:00 97.7 [degF] [facility] Oxygen saturation by 2020-09-28 02:48:00 98 /min [facility] - Pulse oximetry Patients [facility] Heart Rate 2020-09-28 02:48:00 85 /min [facility] Respiratory rate 2020-09-28 02:48:00 18 /min [facility] Oxygen saturation by 2020-09-28 02:40:00 95 /min [facility] - Pulse oximetry Patients [facility] Heart Rate 2020-09-28 02:40:00 87 /min [facility] Respiratory rate 2020-09-28 02:40:00 20 /min [facility] BP Diastolic 2020-09-28 00:00:00 59 mm[Hg] [facility] BP Systolic 2020-09-28 00:00:00 135 mm[Hg] [facility] Oxygen saturation by 2020-09-28 00:00:00 94 /min [facility] - Pulse oximetry Patients [facility] Heart Rate 2020-09-28 00:00:00 92 /min [facility] Respiratory rate 2020-09-28 00:00:00 20 [...] [facility] - Pulse oximetry Patients [facility] Heart Rate 2020-09-27 20:00:00 99 /min [facility] Respiratory rate 2020-09-27 20:00:00 18 /min [facility] Body Temperature 2020-09-27 20:00:00 98.1 [degF] [facility] Oxygen saturation by 2020-09-27 19:53:00 100 /min [facility] - Pulse oximetry Patients [facility] Heart Rate 2020-09-27 19:53:00 96 /min [facility] Respiratory rate 2020-09-27 19:53:00 18 /min [facility] Oxygen saturation by 2020-09-27 19:45:00 97 /min [facility] - Pulse oximetry Patients [facility] Heart Rate 2020-09-27 19:45:00 99 /min [...] [facility] - Pulse oximetry Patients [facility] Heart Rate 2020-09-27 15:21:00 103 /min [facility] Respiratory rate 2020-09-27 15:21:00 20 /min [facility] Body Temperature 2020-09-27 15:21:00 98.5 [degF] [facility] Oxygen saturation by 2020-09-27 14:45:00 99 /min [facility] - Pulse oximetry Patients [facility] Heart Rate 2020-09-27 14:45:00 103 /min [facility] Respiratory rate 2020-09-27 14:45:00 20 /min [facility] Oxygen saturation by 2020-09-27 14:30:00 95 /min [facility] - Pulse oximetry Patients [facility] Heart Rate 2020-09-27 14:30:00 103 /min [facility] Res[facility] rate 2020-09-27 14:30:00 20 /min [facility] BP Diastolic 2020-09-27 11:13:00 56 mm[Hg] [facility] BP Systolic 2020-09-27 11:13:00 123 mm[Hg] [facility] Oxygen saturation by 2020-09-27 11:13:00 99 /min [facility] - Pulse oximetry Patients [facility] Heart Rate 2020-09-27 11:13:00 88 /min [...] [facility] - Pulse oximetry Patients [facility] Heart Rate 2020-09-27 08:15:00 105 /min [...] [facility] - Pulse oximetry Patients [facility] Heart Rate 2020-09-27 07:58:00 105 /min [facility] Respiratory rate 2020-09-27 07:58:00 16 /min [facility] Body Temperature 2020-09-27 07:58:00 97.6 [degF] [facility] Oxygen saturation by 2020-09-27 07:15:00 99 /min [facility] - Pulse oximetry Patients [facility] Heart Rate 2020-09-27 07:15:00 105 /min [facility] Respiratory rate 2020-09-27 07:15:00 16 /min [facility] Oxygen saturation by 2020-09-27 07:00:00 95 /min [facility] - Pulse oximetry Patients [facility] Heart Rate 2020-09-27 07:00:00 105 /min [facility] Respiratory rate 2020-09-27 07:00:00 16 /min [facility] Oxygen saturation by 2020-09-27 00:05:00 100 /min [facility] - Pulse oximetry Patients [facility] Heart Rate 2020-09-27 00:05:00 91 /min [facility] Respiratory rate 2020-09-27 00:05:00 20 /min [facility] Oxygen saturation by 2020-09-26 23:50:00 98 /min [facility] - Pulse oximetry Patients [facility] Heart Rate 2020-09-26 23:50:00 89 /min [facility] Respiratory rate 2020-09-26 23:50:00 20 /min [facility] BP Diastolic 2020-09-26 20:36:00 69 mm[Hg] [facility] BP Systolic 2020-09-26 20:36:00 114 mm[Hg] [facility] Oxygen saturation by 2020-09-26 20:36:00 98 /min [facility] - Pulse oximetry Patients [facility] Heart Rate 2020-09-26 20:36:00 84 /min [facility] Respiratory rate 2020-09-26 20:36:00 18 /min [facility] Body Temperature 2020-09-26 20:36:00 98.1 [degF] [facility] BP Diastolic 2020-09-26 20:00:00 80 mm[Hg] [facility] BP Systolic 2020-09-26 20:00:00 142 mm[Hg] [facility] Oxygen saturation by 2020-09-26 20:00:00 100 /min [facility] - Pulse oximetry Patients [facility] Heart Rate 2020-09-26 20:00:00 89 /min [facility] Respiratory rate 2020-09-26 20:00:00 21 /min [facility] Body Temperature 2020-09-26 20:00:00 98.3 [degF] [facility] BP Diastolic 2020-09-26 16:11:00 75 mm[Hg] [facility] BP Systolic 2020-09-26 16:11:00 151 mm[Hg] [facility] Oxygen saturation by 2020-09-26 16:11:00 100 /min [facility] - Pulse oximetry Patients [facility] Heart Rate 2020-09-26 16:11:00 89 /min [facility] Respiratory rate 2020-09-26 16:11:00 21 /min [facility] Body Temperature 2020-09-26 16:11:00 98.3 [degF] [facility] Oxygen saturation by 2020-09-26 13:10:00 96 /min [facility] - Pulse oximetry Patients [facility] Heart Rate 2020-09-26 13:10:00 94 /min [facility] Respiratory rate 2020-09-26 13:10:00 16 /min [facility] O[facility] saturation by 2020-09-26 12:55:00 96 /min [facility] - Pulse oximetry Patients [facility] Heart Rate 2020-09-26 12:55:00 94 /min [facility] Respiratory rate 2020-09-26 12:55:00 16 /min [facility] O[facility] saturation by 2020-09-26 12:35:00 96 /min [facility] - Pulse oximetry Patients [facility] Heart Rate 2020-09-26 12:35:00 94 /min [facility] Respiratory rate 2020-09-26 12:35:00 16 /min [facility] BP Diastolic 2020-09-26 12:12:00 66 mm[Hg] [facility] BP Systolic 2020-09-26 12:12:00 113 mm[Hg] [facility] Oxygen saturation by 2020-09-26 12:12:00 98 /min [facility] - Pulse oximetry Patients [facility] Heart Rate 2020-09-26 12:12:00 100 /min [facility] Respiratory rate 2020-09-26 12:12:00 26 /min [facility] Body Temperature 2020-09-26 12:12:00 98.0 [degF] [facility] BP Diastolic 2020-09-26 09:22:00 59 mm[Hg] [facility] BP Systolic 2020-09-26 09:22:00 113 mm[Hg] [facility] Oxygen saturation by 2020-09-26 09:22:00 98 /min [facility] - Pulse oximetry Patients [facility] Heart Rate 2020-09-26 09:22:00 99 /min [facility] Respiratory rate 2020-09-26 09:22:00 26 /min [facility] Body Temperature 2020-09-26 09:22:00 97.4 [degF] [facility] Oxygen saturation by 2020-09-26 08:50:00 98 /min [facility] - Pulse oximetry Patients [facility] Heart Rate 2020-09-26 08:50:00 99 /min [facility] Respiratory rate 2020-09-26 08:50:00 26 /min [facility] Oxygen saturation by 2020-09-26 08:35:00 98 /min [facility] - Pulse oximetry Patients [facility] Heart Rate 2020-09-26 08:35:00 99 /min [facility] Respiratory rate 2020-09-26 08:35:00 26 /min [facility] BP Diastolic 2020-09-26 07:58:00 59 mm[Hg] [facility] BP Systolic 2020-09-26 07:58:00 113 mm[Hg] [facility] Oxygen saturation by 2020-09-26 07:58:00 98 /min [facility] - Pulse oximetry Patients [facility] Heart Rate 2020-09-26 07:58:00 99 /min [facility] Respiratory rate 2020-09-26 07:58:00 26 /min [facility] Body Temperature 2020-09-26 07:58:00 97.4 [degF] [facility] BP Diastolic 2020-09-26 04:00:00 40 mm[Hg] [facility] BP Systolic 2020-09-26 04:00:00 112 mm[Hg] [facility] Oxygen saturation by 2020-09-26 04:00:00 98 /min [facility] - Pulse oximetry Patients [facility] Heart Rate 2020-09-26 04:00:00 99 /min [facility] Res[facility] rate 2020-09-26 04:00:00 20 /min [facility] Body Temperature 2020-09-26 04:00:00 97.0 [degF] [facility] Oxygen saturation by 2020-09-25 20:08:00 100 /min [facility] - Pulse oximetry Patients [facility] Heart Rate 2020-09-25 20:08:00 97 /min [facility] Respiratory rate 2020-09-25 20:08:00 20 /min [facility] BP Diastolic 2020-09-25 20:00:00 61 mm[Hg] [facility] BP Systolic 2020-09-25 20:00:00 124 mm[Hg] [facility] Oxygen saturation by 2020-09-25 20:00:00 97 /min [facility] - Pulse oximetry Patients [facility] Heart Rate 2020-09-25 20:00:00 99 /min [facility] Respiratory rate 2020-09-25 20:00:00 18 /min [facility] Body Temperature 2020-09-25 20:00:00 97.9 [degF] [facility] Oxygen saturation by 2020-09-25 19:53:00 97 /min [facility] - Pulse oximetry Patients [facility] Heart Rate 2020-09-25 19:53:00 94 /min [facility] Respiratory rate 2020-09-25 19:53:00 20 /min [facility] BP Diastolic 2020-09-25 15:48:00 61 mm[Hg] [facility] BP Systolic 2020-09-25 15:48:00 124 mm[Hg] [facility] Oxygen saturation by 2020-09-25 15:48:00 97 /min [facility] - Pulse oximetry Patients [facility] Heart Rate 2020-09-25 15:48:00 99 /min [facility] Res[facility] rate 2020-09-25 15:48:00 18 /min [facility] [facility] Body Temperature 2020-09-25 15:48:00 98.0 [degF] [facility] Oxygen saturation by 2020-09-25 12:40:00 97 /min [facility] - Pulse oximetry Patients [facility] Heart Rate 2020-09-25 12:40:00 109 /min [facility] Respiratory rate 2020-09-25 12:40:00 16 /min [facility] Oxygen saturation by 2020-09-25 12:39:00 97 /min [facility] Pulse [facility] Patients [facility] Heart Rate 2020-09-25 12:39:00 98 /min [facility] Respiratory rate 2020-09-25 12:39:00 22 /min [facility] BP Diastolic 2020-09-25 11:14:00 72 mm[Hg] [facility] BP Systolic 2020-09-25 11:14:00 98 mm[Hg] [facility] Oxygen saturation by 2020-09-25 11:14:00 100 /min [facility] Pulse oximetry Patients [facility] Heart Rate 2020-09-25 11:14:00 98 /min [facility] Respiratory rate 2020-09-25 11:14:00 22 /min [...] [facility]ulse [facility] Patients [facility] Heart Rate 2020-09-25 09:18:00 96 /min [facility] Respiratory rate 2020-09-25 09:18:00 18 /min [facility] Body Temperature 2020-09-25 09:18:00 97.9 [degF] [facility] Oxygen saturation by 2020-09-25 08:35:00 98 /min [facility] Pulse [facility]xim[facility] Patients [facility] Heart Rate 2020-09-25 08:35:00 96 /min [facility] Respiratory rate 2020-09-25 08:35:00 18 /min [facility] Oxygen saturation by 2020-09-25 08:20:00 98 /min [facility] Pulse [facility]xim[facility] Patients [facility] Heart Rate 2020-09-25 08:20:00 96 /min [facility] Respiratory rate 2020-09-25 08:20:00 18 /min [facility] BP Diastolic 2020-09-25 07:33:00 62 mm[Hg] [facility] BP Systolic 2020-09-25 07:33:00 135 mm[Hg] [facility] Oxygen saturation by 2020-09-25 07:33:00 98 /min [facility] Pulse [facility]ximetry Patients [facility] Heart Rate 2020-09-25 07:33:00 96 /min [facility] Respiratory rate 2020-09-25 07:33:00 18 /min [facility] Body Temperature 2020-09-25 07:33:00 97.9 [degF] [facility] BP Diastolic 2020-09-25 04:00:00 69 mm[Hg] [facility] BP Systolic 2020-09-25 04:00:00 121 mm[Hg] [facility] Oxygen saturation by 2020-09-25 04:00:00 97 /min [facility] Pulse [facility]xim[facility] Patients [facility] Heart Rate 2020-09-25 04:00:00 83 /min [facility] Respiratory rate 2020-09-25 04:00:00 18 /min [facility] Body Temperature 2020-09-25 04:00:00 97.7 [degF] [facility] BP Diastolic 2020-09-24 23:59:00 94 mm[Hg] [facility] BP Systolic 2020-09-24 23:59:00 151 mm[Hg] [facility] Oxygen saturation by 2020-09-24 23:59:00 99 /min [facility] Pulse [facility] Patients [facility] Heart Rate 2020-09-24 23:59:00 97 /min [facility] Respiratory rate 2020-09-24 23:59:00 17 /min [facility] Body Temperature 2020-09-24 23:59:00 97.6 [degF] [facility] BP Diastolic 2020-09-24 20:32:00 92 mm[Hg] [facility] BP Systolic 2020-09-24 20:32:00 165 mm[Hg] [facility] Oxygen saturation by 2020-09-24 20:32:00 94 /min [facility] Pulse [facility]xim[facility] Patients [facility] Heart Rate 2020-09-24 20:32:00 112 /min [facility] Respiratory rate 2020-09-24 20:32:00 18 /min [facility] Body Temperature 2020-09-24 20:32:00 97.7 [degF] [facility] Oxygen saturation by 2020-09-24 20:25:00 98 /min [facility] Pulse [facility] Patients [facility] Heart Rate 2020-09-24 20:25:00 100 /min [facility] Respiratory rate 2020-09-24 20:25:00 20 /min [facility] Oxygen saturation by 2020-09-24 20:10:00 95 /min [facility] Pulse [facility]xim[facility] Patients [facility] Heart Rate 2020-09-24 20:10:00 102 /min [...] [facility]ulse [facility] Patients [facility] Heart Rate 2020-09-24 20:00:00 112 /min [facility] Respiratory rate 2020-09-24 20:00:00 18 /min [facility] Body Temperature 2020-09-24 20:00:00 97.7 [degF] [facility] BP Diastolic 2020-09-24 17:13:00 71 mm[Hg] [facility] BP Systolic 2020-09-24 17:13:00 129 mm[Hg] [facility] Oxygen saturation by 2020-09-24 17:13:00 100 /min [facility] Pulse [facility]xim[facility] Patients [facility] Heart Rate 2020-09-24 17:13:00 94 /min [facility] Respiratory rate 2020-09-24 17:13:00 16 /min [facility] Body Temperature 2020-09-24 17:13:00 97.7 [degF] [facility] Oxygen saturation by 2020-09-24 14:00:00 100 /min [facility] Pulse [facility]xim[facility] Patients [facility] Heart Rate 2020-09-24 14:00:00 94 /min [facility] Respiratory rate 2020-09-24 14:00:00 16 /min [facility] Oxygen saturation by 2020-09-24 13:45:00 100 /min [facility] Pulse [facility]ximetry Patients [facility] Heart Rate 2020-09-24 13:45:00 94 /min [...] [facility]ulse [facility] Patients [facility] Heart Rate 2020-09-24 08:41:00 94 /min [...] [facility] Pulse [facility] Patients [facility] Heart Rate 2020-09-24 08:30:00 94 /min [facility] Respiratory rate 2020-09-24 08:30:00 18 /min [facility] Body Temperature 2020-09-24 08:30:00 98.6 [degF] [facility] Oxygen saturation by 2020-09-24 06:50:00 100 /min [facility] Pulse [facility]xim[facility] Patients [facility] Heart Rate 2020-09-24 06:50:00 91 /min [facility] Respiratory rate 2020-09-24 06:50:00 16 /min [facility] Oxygen saturation by 2020-09-24 06:35:00 97 /min [facility] Pulse [facility]xim[facility] Patients [facility] Heart Rate 2020-09-24 06:35:00 87 /min [facility] Respiratory rate 2020-09-24 06:35:00 16 /min [facility] BP Diastolic 2020-09-24 04:00:00 64 mm[Hg] [facility] BP Systolic 2020-09-24 04:00:00 137 mm[Hg] [facility] Oxygen saturation by 2020-09-24 04:00:00 96 /min [facility] Pulse [facility]ximetry Patients [facility] Heart Rate 2020-09-24 04:00:00 88 /min [facility] Respiratory rate 2020-09-24 04:00:00 18 /min [facility] Body Temperature 2020-09-24 04:00:00 97.7 [degF] [facility] Oxygen saturation by 2020-09-24 01:18:00 97 /min [facility] Pulse [facility]ximetry Patients [facility] Heart Rate 2020-09-24 01:18:00 91 /min [facility] Respiratory rate 2020-09-24 01:18:00 18 /min [facility] Oxygen saturation by 2020-09-24 01:10:00 94 /min [facility] Pulse [facility]ximetry Patients [facility] Heart Rate 2020-09-24 01:10:00 89 /min [facility] Respiratory rate 2020-09-24 01:10:00 16 /min [facility] BP Diastolic 2020-09-24 00:00:00 60 mm[Hg] [facility] BP Systolic 2020-09-24 00:00:00 154 mm[Hg] [facility] Oxygen saturation by 2020-09-24 00:00:00 94 /min [facility] Pulse oximetry Patients [facility] Heart Rate 2020-09-24 00:00:00 92 /min [facility] Respiratory rate 2020-09-24 00:00:00 18 /min [facility] Body Temperature 2020-09-24 00:00:00 98.5 [degF] [facility] BP Diastolic 2020-09-23 21:42:00 83 mm[Hg] [facility] BP Systolic 2020-09-23 21:42:00 146 mm[Hg] [facility] Oxygen saturation by 2020-09-23 21:42:00 94 /min [facility] Pulse oximetry Patients [facility] Heart Rate 2020-09-23 21:42:00 105 /min [...] [facility] Pulse [facility] Patients [facility] Heart Rate 2020-09-23 20:00:00 105 /min [facility] Respiratory rate 2020-09-23 20:00:00 18 /min [facility] Body Temperature 2020-09-23 20:00:00 97.9 [degF] [facility] Oxygen saturation by 2020-09-23 19:18:00 99 /min [facility] Pulse [facility]ximetry Patients [facility] Heart Rate 2020-09-23 19:18:00 101 /min [facility] Respiratory rate 2020-09-23 19:18:00 22 /min [facility] Oxygen saturation by 2020-09-23 19:10:00 94 /min [facility] Pulse [facility]ximetry Patients [facility] Heart Rate 2020-09-23 19:10:00 98 /min [...] [facility] Pulse [facility] Patients [facility] Heart Rate 2020-09-23 16:11:00 96 /min [facility] Respiratory rate 2020-09-23 16:11:00 18 /min [facility] Body Temperature 2020-09-23 16:11:00 97.8 [degF] [facility] Oxygen saturation by 2020-09-23 14:15:00 98 /min [facility] Pulse [facility]ximetry Patients [facility] Heart Rate 2020-09-23 14:15:00 83 /min [facility] Respiratory rate 2020-09-23 14:15:00 20 /min [facility] Oxygen saturation by 2020-09-23 14:00:00 98 /min [facility] Pulse [facility]ximetry Patients [facility] Heart Rate 2020-09-23 14:00:00 83 /min [facility] Respiratory rate 2020-09-23 14:00:00 20 /min [facility] BP Diastolic 2020-09-23 08:50:00 63 mm[Hg] [facility] BP Systolic 2020-09-23 08:50:00 142 mm[Hg] [facility] Oxygen saturation by 2020-09-23 08:50:00 98 /min [facility] Pulse oximetry Patients [facility] Heart Rate 2020-09-23 08:50:00 94 /min [facility] Respiratory rate 2020-09-23 08:50:00 18 /min [facility] Body Temperature 2020-09-23 08:50:00 97.3 [degF] [facility] BP Diastolic 2020-09-23 08:39:00 63 mm[Hg] [facility] BP Systolic 2020-09-23 08:39:00 142 mm[Hg] [facility] Oxygen saturation by 2020-09-23 08:39:00 100 /min [facility] Pulse [facility]ximetry Patients [facility] Heart Rate 2020-09-23 08:39:00 94 /min [facility] Respiratory rate 2020-09-23 08:39:00 18 /min [facility] Body Temperature 2020-09-23 08:39:00 97.4 [degF] [facility] Oxygen saturation by 2020-09-23 06:45:00 100 /min [facility] Pulse [facility]ximetry Patients [facility] Heart Rate 2020-09-23 06:45:00 94 /min [facility] Respiratory rate 2020-09-23 06:45:00 18 /min [facility] Oxygen saturation by 2020-09-23 06:30:00 100 /min [facility] Pulse [facility]ximetry Patients [facility] Heart Rate 2020-09-23 06:30:00 94 /min [facility] Respiratory rate 2020-09-23 06:30:00 18 /min [facility] BP Diastolic 2020-09-23 04:30:00 75 mm[Hg] [facility] BP Systolic 2020-09-23 04:30:00 168 mm[Hg] [facility] Oxygen saturation by 2020-09-23 04:30:00 98 /min [facility] Pulse [facility]ximetry Patients [facility] Heart Rate 2020-09-23 04:30:00 87 /min [facility] Respiratory rate 2020-09-23 04:30:00 18 /min [facility] Body Temperature 2020-09-23 04:30:00 97.6 [degF] [facility] Oxygen saturation by 2020-09-23 00:40:00 94 /min [facility] Pulse [facility]ximetry Patients [facility] Heart Rate 2020-09-23 00:40:00 81 /min [facility] Respiratory rate 2020-09-23 00:40:00 20 /min [facility] BP Diastolic 2020-09-23 00:23:00 76 mm[Hg] [facility] BP Systolic 2020-09-23 00:23:00 141 mm[Hg] [facility] Oxygen saturation by 2020-09-23 00:23:00 94 /min [facility] Pulse [facility]ximetry Patients [facility] Heart Rate 2020-09-23 00:23:00 81 /min [facility] Respiratory rate 2020-09-23 00:23:00 18 /min [facility] Body Temperature 2020-09-23 00:23:00 98.1 [degF] [facility] BP Diastolic 2020-09-22 20:04:00 81 mm[Hg] [facility] BP Systolic 2020-09-22 20:04:00 158 mm[Hg] [facility] Oxygen saturation by 2020-09-22 20:04:00 95 /min [facility] Pulse [facility]ximetry Patients [facility] Heart Rate 2020-09-22 20:04:00 95 /min [facility] Respiratory rate 2020-09-22 20:04:00 18 /min [facility] Body Temperature 2020-09-22 20:04:00 97.6 [degF] [facility] Oxygen saturation by 2020-09-22 20:02:00 98 /min [facility] Pulse [facility]ximetry Patients [facility] Heart Rate 2020-09-22 20:02:00 94 /min [facility] Respiratory rate 2020-09-22 20:02:00 20 /min [facility] Oxygen saturation by 2020-09-22 19:47:00 96 /min [facility] Pulse [facility]ximetry Patients [facility] Heart Rate 2020-09-22 19:47:00 95 /min [facility] Respiratory rate 2020-09-22 19:47:00 20 /min [facility] Oxygen saturation by 2020-09-22 15:48:00 100 /min [facility] Pulse [facility]ximetry Patients [facility] Heart Rate 2020-09-22 15:48:00 89 /min [facility] Respiratory rate 2020-09-22 15:48:00 24 /min [facility] BP Diastolic 2020-09-22 15:40:00 57 mm[Hg] [facility] BP Systolic 2020-09-22 15:40:00 143 mm[Hg] [facility] Oxygen saturation by 2020-09-22 15:40:00 98 /min [facility] Pulse [facility]ximetry Patients [facility] Heart Rate 2020-09-22 15:40:00 90 /min [facility] Respiratory rate 2020-09-22 15:40:00 22 /min [facility] Body Temperature 2020-09-22 15:40:00 97.6 [degF] [facility] Oxygen saturation by 2020-09-22 15:33:00 96 /min [facility] Pulse [facility]ximetry Patients [facility] Heart Rate 2020-09-22 15:33:00 88 /min [facility] Respiratory rate 2020-09-22 15:33:00 24 /min [facility] BP Diastolic 2020-09-22 11:44:00 65 mm[Hg] [facility] BP Systolic 2020-09-22 11:44:00 165 mm[Hg] [facility] Oxygen saturation by 2020-09-22 11:44:00 100 /min [facility] Pulse [facility]ximetry Patients [facility] Heart Rate 2020-09-22 11:44:00 81 /min [facility] Respiratory rate 2020-09-22 11:44:00 23 /min [facility] Body Temperature 2020-09-22 11:44:00 97.9 [degF] [facility] Oxygen saturation by 2020-09-22 11:25:00 100 /min [facility] Pulse [facility]ximetry Patients [facility] Heart Rate 2020-09-22 11:25:00 88 /min [facility] Oxygen saturation by 2020-09-22 11:10:00 96 /min [facility] Pulse [facility]ximetry Patients [facility] Heart Rate 2020-09-22 11:10:00 84 /min [facility] Respiratory rate 2020-09-22 11:10:00 24 /min [facility] BP Diastolic 2020-09-22 09:27:00 61 mm[Hg] [facility] BP Systolic 2020-09-22 09:27:00 165 mm[Hg] [facility] Oxygen saturation by 2020-09-22 09:27:00 94 /min [facility] Pulse [facility]ximetry Patients [facility] Heart Rate 2020-09-22 09:27:00 84 /min [facility] Respiratory rate 2020-09-22 09:27:00 22 /min [facility] Body Temperature 2020-09-22 09:27:00 98.0 [degF] [facility] BP Diastolic 2020-09-22 08:00:00 61 mm[Hg] [facility] BP Systolic 2020-09-22 08:00:00 165 mm[Hg] [facility] Oxygen saturation by 2020-09-22 08:00:00 94 /min [facility] Pulse [facility]ximetry Patients [facility] Heart Rate 2020-09-22 08:00:00 84 /min [facility] Respiratory rate 2020-09-22 08:00:00 22 /min [facility] Body Temperature 2020-09-22 08:00:00 98.0 [degF] [facility] BP Diastolic 2020-09-22 03:50:00 72 mm[Hg] [facility] BP Systolic 2020-09-22 03:50:00 144 mm[Hg] [facility] Oxygen saturation by 2020-09-22 03:50:00 97 /min [facility] Pulse [facility]ximetry Patients [facility] Heart Rate 2020-09-22 03:50:00 93 /min [facility] Respiratory rate 2020-09-22 03:50:00 24 /min [facility] Body Temperature 2020-09-22 03:50:00 97.9 [degF] [facility] Oxygen saturation by 2020-09-22 02:17:00 100 /min [facility] Pulse [facility]ximetry Patients [facility] Heart Rate 2020-09-22 02:17:00 92 /min [facility] Respiratory rate 2020-09-22 02:17:00 20 /min [facility] by 2020-09-22 02:02:00 100 /min [facility] Pulse [facility]ximetry Patients [facility] Heart Rate 2020-09-22 02:02:00 88 /min [facility] Res[facility] rate 2020-09-22 02:02:00 20 /min [facility] BP Diastolic 2020-09-22 00:02:00 64 mm[Hg] [facility] BP Systolic 2020-09-22 00:02:00 139 mm[Hg] [facility] Oxygen saturation by 2020-09-22 00:02:00 100 /min [facility] Pulse [facility]ximetry Patients [facility] Heart Rate 2020-09-22 00:02:00 72 /min [...] [facility] Patients [facility] Heart Rate 2020-09-21 20:07:00 84 /min [facility] Respiratory rate 2020-09-21 20:07:00 24 /min [facility] Body Temperature 2020-09-21 20:07:00 98.6 [degF] [facility] by 2020-09-21 20:02:00 97 /min [facility] Pulse [facility]etry Patients [facility] Heart Rate 2020-09-21 20:02:00 80 /min [facility] Respiratory rate 2020-09-21 20:02:00 18 /min [facility] BP Diastolic 2020-09-21 20:00:00 96 mm[Hg] [facility] BP Systolic 2020-09-21 20:00:00 135 mm[Hg] [facility] Oxygen saturation by 2020-09-21 20:00:00 95 /min [facility] Pulse [facility]ximetry Patients [facility] Heart Rate 2020-09-21 20:00:00 78 /min [facility] Res[facility] rate 2020-09-21 20:00:00 18 [...] [facility]ulse [facility] Patients [facility] Heart Rate 2020-09-21 16:00:00 78 /min [...] 201 mm[Hg] [facility] Oxygen saturation by 2020-09-21 13:02:00 96 /min [facility] Pulse [facility] Patients [facility] Heart Rate 2020-09-21 13:02:00 70 /min [facility] Respiratory rate 2020-09-21 13:02:00 18 /min [facility] Body Temperature 2020-09-21 13:02:00 98.3 [degF] [facility] Oxygen saturation by 2020-09-21 10:15:00 96 /min [facility] Pulse [facility]ximetry Patients [facility] Heart Rate 2020-09-21 10:15:00 72 /min [facility] Respiratory rate 2020-09-21 10:15:00 18 /min [facility] BP Diastolic 2020-09-21 09:08:00 63 mm[Hg] [facility] BP Systolic 2020-09-21 09:08:00 150 mm[Hg] [facility] Oxygen saturation by 2020-09-21 09:08:00 95 /min [facility] Pulse [facility]ximetry Patients [facility] Heart Rate 2020-09-21 09:08:00 63 /min [facility] Respiratory rate 2020-09-21 09:08:00 17 /min [facility] Body Temperature 2020-09-21 09:08:00 98.0 [degF] [facility] BP Diastolic 2020-09-21 08:58:00 63 mm[Hg] [facility] BP Systolic 2020-09-21 08:58:00 150 mm[Hg] [facility] Oxygen saturation by 2020-09-21 08:58:00 95 /min [facility] [facility] - [facility] Patients [facility] Heart Rate 2020-09-21 08:58:00 63 /min [facility] Respiratory rate 2020-09-21 08:58:00 17 /min [facility] Body Temperature 2020-09-21 08:58:00 98.0 [degF] [facility] BP Diastolic 2020-09-21 07:38:00 63 mm[Hg] [facility] BP Systolic 2020-09-21 07:38:00 150 mm[Hg] [facility] Oxygen saturation by 2020-09-21 07:38:00 95 /min [facility] - Pulse [facility]ximetry Patients [facility] Heart Rate 2020-09-21 07:38:00 63 /min [facility] Respiratory rate 2020-09-21 07:38:00 17 /min [facility] Body Temperature 2020-09-21 07:38:00 98.0 [degF] [facility] BP Diastolic 2020-09-21 04:00:00 70 mm[Hg] [facility] BP Systolic 2020-09-21 04:00:00 149 mm[Hg] [facility] Oxygen saturation by 2020-09-21 04:00:00 94 /min [facility] - Pulse [facility]ximetry Patients [facility] Heart Rate 2020-09-21 04:00:00 73 /min [...] [facility] Pulse [facility] Patients [facility] Heart Rate 2020-09-21 00:00:00 76 /min [facility] Respiratory rate 2020-09-21 00:00:00 21 /min [facility] Body Temperature 2020-09-21 00:00:00 98.2 [degF] [facility] BP Diastolic 2020-09-20 20:00:00 69 mm[Hg] [facility] BP Systolic 2020-09-20 20:00:00 155 mm[Hg] [facility] Oxygen saturation by 2020-09-20 20:00:00 94 /min [facility] - Pulse [facility]ximetry Patients [facility] Heart Rate 2020-09-20 20:00:00 72 /min [facility] Respiratory rate 2020-09-20 20:00:00 20 /min [facility] Body Temperature 2020-09-20 20:00:00 98.1 [degF] [facility] Oxygen saturation by 2020-09-20 19:53:00 99 /min [facility] - Pulse oximetry Patients [facility] Heart Rate 2020-09-20 19:53:00 72 /min [facility] Respiratory rate 2020-09-20 19:53:00 16 /min [facility] Oxygen saturation by 2020-09-20 19:45:00 96 /min [facility] - Pulse oximetry Patients [facility] Heart Rate 2020-09-20 19:45:00 75 /min [facility] Respiratory rate 2020-09-20 19:45:00 18 /min [facility] BP Diastolic 2020-09-20 16:36:00 69 mm[Hg] [facility] BP Systolic 2020-09-20 16:36:00 155 mm[Hg] [facility] Oxygen saturation by 2020-09-20 16:36:00 97 /min [facility] - Pulse oximetry Patients [facility] Heart Rate 2020-09-20 16:36:00 73 /min [facility] Respiratory rate 2020-09-20 16:36:00 21 /min [facility] Body Temperature 2020-09-20 16:36:00 98.3 [degF] [facility] BP Diastolic 2020-09-20 15:47:00 60 mm[Hg] [facility] BP Systolic 2020-09-20 15:47:00 133 mm[Hg] [facility] Oxygen saturation by 2020-09-20 15:47:00 94 /min [facility] - Pulse oximetry Patients [facility] Heart Rate 2020-09-20 15:47:00 71 /min [facility] Respiratory rate 2020-09-20 15:47:00 19 /min [facility] Body Temperature 2020-09-20 15:47:00 98.1 [degF] [facility] BP Diastolic 2020-09-20 11:55:00 60 mm[Hg] [facility] BP Systolic 2020-09-20 11:55:00 133 mm[Hg] [facility] Oxygen saturation by 2020-09-20 11:55:00 94 /min [facility] - Pulse [facility]ximetry Patients [facility] Heart Rate 2020-09-20 11:55:00 71 /min [facility] Respiratory rate 2020-09-20 11:55:00 19 /min [facility] Body Temperature 2020-09-20 11:55:00 98.1 [degF] [facility] BP Diastolic 2020-09-20 09:06:00 66 mm[Hg] [facility] BP Systolic 2020-09-20 09:06:00 145 mm[Hg] [facility] Oxygen saturation by 2020-09-20 09:06:00 99 /min [facility] - Pulse [facility]ximetry Patients [facility] Heart Rate 2020-09-20 09:06:00 86 /min [facility] Respiratory rate 2020-09-20 09:06:00 19 /min [facility] Body Temperature 2020-09-20 09:06:00 98.4 [degF] [facility] BP Diastolic 2020-09-20 08:58:00 66 mm[Hg] [facility] BP Systolic 2020-09-20 08:58:00 145 mm[Hg] [facility] Oxygen saturation by 2020-09-20 08:58:00 99 /min [facility] - Pulse oximetry Patients [facility] Heart Rate 2020-09-20 08:58:00 86 /min [facility] Respiratory rate 2020-09-20 08:58:00 19 /min [facility] Body Temperature 2020-09-20 08:58:00 98.4 [degF] [facility] BP Diastolic 2020-09-20 08:55:00 66 mm[Hg] [facility] BP Systolic 2020-09-20 08:55:00 145 mm[Hg] [facility] Oxygen saturation by 2020-09-20 08:55:00 99 /min [facility] - Pulse oximetry Patients [facility] Heart Rate 2020-09-20 08:55:00 86 /min [facility] Respiratory rate 2020-09-20 08:55:00 19 /min [facility] Body Temperature 2020-09-20 08:55:00 98.4 [degF] [facility] BP Diastolic 2020-09-20 07:38:00 66 mm[Hg] [facility] BP Systolic 2020-09-20 07:38:00 145 mm[Hg] [facility] Oxygen saturation by 2020-09-20 07:38:00 99 /min [facility] - Pulse oximetry Patients [facility] Heart Rate 2020-09-20 07:38:00 71 /min [facility] Respiratory rate 2020-09-20 07:38:00 19 /min [facility] Body Temperature 2020-09-20 07:38:00 98.4 [degF] [facility] Oxygen saturation by 2020-09-20 07:05:00 95 /min [facility] - Pulse oximetry Patients [facility] Heart Rate 2020-09-20 07:05:00 82 /min [facility] Respiratory rate 2020-09-20 07:05:00 18 /min [facility] BP Diastolic 2020-09-20 04:00:00 61 mm[Hg] [facility] BP Systolic 2020-09-20 04:00:00 145 mm[Hg] [facility] Oxygen saturation by 2020-09-20 04:00:00 96 /min [facility] - Pulse oximetry Patients [facility] Heart Rate 2020-09-20 04:00:00 66 /min [facility] Respiratory rate 2020-09-20 04:00:00 18 /min [facility] Body Temperature 2020-09-20 04:00:00 97.5 [degF] [facility] BP Diastolic 2020-09-20 00:00:00 56 mm[Hg] [facility] BP Systolic 2020-09-20 00:00:00 133 mm[Hg] [facility] Oxygen saturation by 2020-09-20 00:00:00 98 /min [facility] - Pulse [facility]ximetry Patients [facility] Heart Rate 2020-09-20 00:00:00 66 /min [facility] Respiratory rate 2020-09-20 00:00:00 20 /min [facility] Body Temperature 2020-09-20 00:00:00 97.9 [degF] [facility] BP Diastolic 2020-09-19 21:46:00 70 mm[Hg] [facility] BP Systolic 2020-09-19 21:46:00 138 mm[Hg] [facility] Oxygen saturation by 2020-09-19 21:46:00 94 /min [facility] - Pulse oximetry Patients [facility] Heart Rate 2020-09-19 21:46:00 80 /min [facility] Respiratory rate 2020-09-19 21:46:00 18 /min [facility] Body Temperature 2020-09-19 21:46:00 97.4 [degF] [facility] Oxygen saturation by 2020-09-19 20:09:00 95 /min [facility] - Pulse oximetry Patients [facility] Heart Rate 2020-09-19 20:09:00 82 /min [facility] Respiratory rate 2020-09-19 20:09:00 18 /min [facility] BP Diastolic 2020-09-19 20:00:00 70 mm[Hg] [facility] BP Systolic 2020-09-19 20:00:00 138 mm[Hg] [facility] Oxygen saturation by 2020-09-19 20:00:00 94 /min [facility] - Pulse oximetry Patients [facility] Heart Rate 2020-09-19 20:00:00 80 /min [facility] Respiratory rate 2020-09-19 20:00:00 18 /min [facility] Body Temperature 2020-09-19 20:00:00 97.4 [degF] [facility] BP Diastolic 2020-09-19 15:41:00 70 mm[Hg] [facility] BP Systolic 2020-09-19 15:41:00 157 mm[Hg] [facility] O[facility] by 2020-09-19 15:41:00 95 /min [facility] - Pulse oximetry Patients [facility] Heart Rate 2020-09-19 15:41:00 80 /min [facility] Respiratory rate 2020-09-19 15:41:00 20 /min [facility] Body Temperature 2020-09-19 15:41:00 97.6 [degF] [facility] BP Diastolic 2020-09-19 12:14:00 80 mm[Hg] [facility] BP Systolic 2020-09-19 12:14:00 177 mm[Hg] [facility] Oxygen saturation by 2020-09-19 12:14:00 96 /min [facility] - Pulse oximetry Patients [facility] Heart Rate 2020-09-19 12:14:00 84 /min [facility] Respiratory rate 2020-09-19 12:14:00 17 /min [facility] BP Diastolic 2020-09-19 11:26:00 79 mm[Hg] [facility] BP Systolic 2020-09-19 11:26:00 204 mm[Hg] [facility] Oxygen saturation by 2020-09-19 11:26:00 96 /min [facility] - Pulse oximetry Patients [facility] Heart Rate 2020-09-19 11:26:00 88 /min [facility] Respiratory rate 2020-09-19 11:26:00 16 /min [facility] Body Temperature 2020-09-19 11:26:00 98.6 [degF] [facility] Oxygen saturation by 2020-09-19 08:10:00 93 /min [facility] - Pulse oximetry Patients [facility] Heart Rate 2020-09-19 08:10:00 97 /min [facility] Respiratory rate 2020-09-19 08:10:00 20 /min [facility] BP Diastolic 2020-09-19 07:37:00 91 mm[Hg] [facility] BP Systolic 2020-09-19 07:37:00 168 mm[Hg] [facility] Oxygen saturation by 2020-09-19 07:37:00 97 /min [facility] - Pulse oximetry Patients [facility] Heart Rate 2020-09-19 07:37:00 83 /min [facility] Respiratory rate 2020-09-19 07:37:00 21 /min [facility] Body Temperature 2020-09-19 07:37:00 98.1 [degF] [facility] BP Diastolic 2020-09-19 07:17:00 91 mm[Hg] [facility] BP Systolic 2020-09-19 07:17:00 168 mm[Hg] [facility] Oxygen saturation by 2020-09-19 07:17:00 97 /min [facility] - Pulse oximetry Patients [facility] Heart Rate 2020-09-19 07:17:00 83 /min [facility] Respiratory rate 2020-09-19 07:17:00 21 /min [facility] Body Temperature 2020-09-19 07:17:00 98.1 [degF] [facility] BP Diastolic 2020-09-19 05:03:00 97 mm[Hg] [facility] BP Systolic 2020-09-19 05:03:00 157 mm[Hg] [facility] Oxygen saturation by 2020-09-19 05:03:00 93 /min [facility] - Pulse oximetry Patients [facility] Heart Rate 2020-09-19 05:03:00 91 /min [facility] Respiratory rate 2020-09-19 05:03:00 18 /min [facility] [place] Body Temperature 2020-09-19 05:03:00 91.0 [degF] [facility] BP Diastolic 2020-09-19 01:59:00 87 mm[Hg] [facility] BP Systolic 2020-09-19 01:59:00 200 mm[Hg] [facility] Oxygen saturation by 2020-09-19 01:59:00 96 /min [facility] - Pulse oximetry Patients [facility] Heart Rate 2020-09-19 01:59:00 92 /min [facility] Respiratory rate 2020-09-19 01:59:00 18 /min [facility] Body Temperature 2020-09-19 01:59:00 97.7 [degF] [facility] BP Diastolic 2020-09-18 22:57:00 86 mm[Hg] [facility] BP Systolic 2020-09-18 22:57:00 158 mm[Hg] [facility] Oxygen saturation by 2020-09-18 22:57:00 96 /min [facility] - Pulse oximetry Patients [facility] Heart Rate 2020-09-18 22:57:00 68 /min [facility] Respiratory rate 2020-09-18 22:57:00 18 /min [facility] Body Temperature 2020-09-18 22:57:00 97.7 [degF] [facility] BP Diastolic 2020-09-18 21:58:00 86 mm[Hg] [facility] BP Systolic 2020-09-18 21:58:00 158 mm[Hg] [facility] O[facility] by 2020-09-18 21:58:00 96 /min [facility] - Pulse oximetry Patients [facility] Heart Rate 2020-09-18 21:58:00 68 /min [facility] Respiratory rate 2020-09-18 21:58:00 18 /min [facility] Body Temperature 2020-09-18 21:58:00 97.7 [degF] [facility] Oxygen saturation by 2020-09-18 21:16:00 93 /min [facility] - Pulse oximetry Patients [facility] Heart Rate 2020-09-18 21:16:00 97 /min [facility] Respiratory rate 2020-09-18 21:16:00 20 /min [facility] BP Diastolic 2020-09-18 15:41:00 70 mm[Hg] [facility] BP Systolic 2020-09-18 15:41:00 163 mm[Hg] [facility] Oxygen saturation by 2020-09-18 15:41:00 98 /min [facility] - Pulse oximetry Patients [facility] Heart Rate 2020-09-18 15:41:00 84 /min [facility] Respiratory rate 2020-09-18 15:41:00 21 /min [facility] Body Temperature 2020-09-18 15:41:00 98.6 [degF] [facility] BP Diastolic 2020-09-18 13:00:00 73 mm[Hg] [facility] BP Systolic 2020-09-18 13:00:00 160 mm[Hg] [facility] Oxygen saturation by 2020-09-18 13:00:00 96 /min [facility] - Pulse oximetry Patients [facility] Heart Rate 2020-09-18 13:00:00 86 /min [...] [facility] Pulse [facility]ximetry Patients [facility] Heart Rate 2020-09-18 12:00:00 85 /min [...] [facility] Pulse [facility]ximetry Patients [facility] Heart Rate 2020-09-18 11:00:00 86 /min [...] [facility] Pulse [facility]ximetry Patients [facility] Heart Rate 2020-09-18 10:00:00 80 /min [facility] Respiratory rate 2020-09-18 10:00:00 19 /min [facility] BP Diastolic 2020-09-18 09:00:00 80 mm[Hg] [facility] BP Systolic 2020-09-18 09:00:00 141 mm[Hg] [facility] Oxygen saturation by 2020-09-18 09:00:00 96 /min [facility] - Pulse [facility]ximetry Patients [facility] Heart Rate 2020-09-18 09:00:00 86 /min [facility] Respiratory rate 2020-09-18 09:00:00 18 /min [facility] [place] Body Temperature 2020-09-18 09:00:00 97.7 [degF] [facility] BP Diastolic 2020-09-18 08:00:00 70 mm[Hg] [facility] BP Systolic 2020-09-18 08:00:00 146 mm[Hg] [facility] Oxygen saturation by 2020-09-18 08:00:00 96 /min [facility] - Pulse [facility]ximetry Patients [facility] Heart Rate 2020-09-18 08:00:00 86 /min [facility] Respiratory rate 2020-09-18 08:00:00 15 /min [facility] BP Diastolic 2020-09-18 07:51:00 80 mm[Hg] [facility] BP Systolic 2020-09-18 07:51:00 141 mm[Hg] [facility] by 2020-09-18 07:51:00 96 /min [facility] - Pulse oximetry Patients [facility] Heart Rate 2020-09-18 07:51:00 86 /min [facility] Respiratory rate 2020-09-18 07:51:00 17 /min [facility] Body Temperature 2020-09-18 07:51:00 97.7 [degF] [facility] Oxygen saturation by 2020-09-18 07:35:00 97 /min [facility] - Pulse oximetry Patients [facility] Heart Rate 2020-09-18 07:35:00 85 /min [facility] Respiratory rate 2020-09-18 07:35:00 20 /min [facility] BP Diastolic 2020-09-18 07:00:00 80 mm[Hg] [facility] BP Systolic 2020-09-18 07:00:00 141 mm[Hg] [facility] Oxygen saturation by 2020-09-18 07:00:00 97 /min [facility] - Pulse oximetry Patients [facility] Heart Rate 2020-09-18 07:00:00 86 /min [facility] Respiratory rate 2020-09-18 07:00:00 17 /min [facility] Body Temperature 2020-09-18 07:00:00 97.7 [degF] [facility] BP Diastolic 2020-09-18 06:00:00 85 mm[Hg] [facility] BP Systolic 2020-09-18 06:00:00 174 mm[Hg] [facility] O[facility] by 2020-09-18 06:00:00 96 /min [facility] - Pulse [facility]ximetry Patients [facility] Heart Rate 2020-09-18 06:00:00 95 /min [...] [facility] Pulse [facility]etry Patients [facility] Heart Rate 2020-09-18 05:00:00 86 /min [facility] Respiratory rate 2020-09-18 05:00:00 18 /min [facility] BP Diastolic 2020-09-18 04:00:00 74 mm[Hg] [facility] BP Systolic 2020-09-18 04:00:00 150 mm[Hg] [facility] Oxygen saturation by 2020-09-18 04:00:00 96 /min [facility] - Pulse oximetry Patients [facility] Heart Rate 2020-09-18 04:00:00 76 /min [facility] Res[facility] rate 2020-09-18 04:00:00 17 /min [facility] BP Diastolic 2020-09-18 03:00:00 88 mm[Hg] [facility] BP Systolic 2020-09-18 03:00:00 157 mm[Hg] [facility] Oxygen saturation by 2020-09-18 03:00:00 97 /min [facility] - Pulse [facility]ximetry Patients [facility] Heart Rate 2020-09-18 03:00:00 89 /min [...] [facility] Pulse [facility]etry Patients [facility] Heart Rate 2020-09-18 02:00:00 95 /min [facility] Respiratory rate 2020-09-18 02:00:00 16 /min [facility] BP Diastolic 2020-09-18 01:00:00 73 mm[Hg] [facility] BP Systolic 2020-09-18 01:00:00 144 mm[Hg] [facility] Oxygen saturation by 2020-09-18 01:00:00 97 /min [facility] - Pulse oximetry Patients [facility] Heart Rate 2020-09-18 01:00:00 84 /min [facility] Respiratory rate 2020-09-18 01:00:00 19 /min [facility] BP Diastolic 2020-09-18 00:00:00 68 mm[Hg] [facility] BP Systolic 2020-09-18 00:00:00 144 mm[Hg] [facility] Oxygen saturation by 2020-09-18 00:00:00 97 /min [facility] Pulse [facility]ximetry Patients [facility] Heart Rate 2020-09-18 00:00:00 89 /min [facility] Respiratory rate 2020-09-18 00:00:00 18 /min [facility] Body Temperature 2020-09-18 00:00:00 98.3 [degF] [facility] BP Diastolic 2020-09-17 23:00:00 89 mm[Hg] [facility] BP Systolic 2020-09-17 23:00:00 145 mm[Hg] [facility] Oxygen saturation by 2020-09-17 23:00:00 96 /min [facility] - Pulse oximetry Patients [facility] Heart Rate 2020-09-17 23:00:00 90 /min [...] [facility] Pulse [facility]etry Patients [facility] Heart Rate 2020-09-17 22:03:00 90 /min [facility] Respiratory rate 2020-09-17 22:03:00 18 /min [facility] BP Diastolic 2020-09-17 21:00:00 62 mm[Hg] [facility] BP Systolic 2020-09-17 21:00:00 117 mm[Hg] [facility] Oxygen saturation by 2020-09-17 21:00:00 96 /min [facility] Heart Rate 2020-09-17 21:00:00 97 /min [facility] Respiratory rate 2020-09-17 21:00:00 19 /min [facility] Oxygen saturation by 2020-09-17 20:08:00 96 /min [facility] Heart Rate 2020-09-17 20:08:00 95 /min [facility] Respiratory rate 2020-09-17 20:08:00 20 /min [facility] BP Diastolic 2020-09-17 20:00:00 86 mm[Hg] [facility] BP Systolic 2020-09-17 20:00:00 169 mm[Hg] [facility] Oxygen saturation by 2020-09-17 20:00:00 95 /min [facility] Heart Rate 2020-09-17 20:00:00 105 /min [...] [facility] Heart Rate 2020-09-17 19:00:00 102 /min [facility] Respiratory rate 2020-09-17 19:00:00 23 /min [facility] Body Temperature 2020-09-17 19:00:00 97.4 [degF] [facility] BP Diastolic 2020-09-17 18:00:00 74 mm[Hg] [facility] BP Systolic 2020-09-17 18:00:00 146 mm[Hg] [facility] Oxygen saturation by 2020-09-17 18:00:00 95 /min [facility] Heart Rate 2020-09-17 18:00:00 97 /min [facility] Respiratory rate 2020-09-17 18:00:00 18 /min [facility] BP Diastolic 2020-09-17 17:00:00 73 mm[Hg] [facility] BP Systolic 2020-09-17 17:00:00 134 mm[Hg] [facility] Oxygen saturation by 2020-09-17 17:00:00 94 /min [facility] Heart Rate 2020-09-17 17:00:00 106 /min [...] [facility] Heart Rate 2020-09-17 16:00:00 96 /min [facility] Respiratory rate 2020-09-17 16:00:00 32 /min [facility] Body Temperature 2020-09-17 16:00:00 98.6 [degF] [facility] Oxygen saturation by 2020-09-17 15:28:00 94 /min [facility] Heart Rate 2020-09-17 15:28:00 83 /min [facility] Respiratory rate 2020-09-17 15:28:00 26 /min [facility] Oxygen saturation by 2020-09-17 15:27:00 94 /min [facility] Heart Rate 2020-09-17 15:27:00 83 /min [...] [facility] Heart Rate 2020-09-17 15:00:00 93 /min [facility] Respiratory rate 2020-09-17 15:00:00 24 /min [facility] Oxygen saturation by 2020-09-17 14:59:00 94 /min [facility] Heart Rate 2020-09-17 14:59:00 84 /min [...] [facility] Heart Rate 2020-09-17 14:00:00 109 /min [...] [facility] Heart Rate 2020-09-17 13:00:00 112 /min [...] [facility] Heart Rate 2020-09-17 12:00:00 112 /min [facility] Respiratory rate 2020-09-17 12:00:00 26 /min [facility] BP Diastolic 2020-09-17 11:00:00 80 mm[Hg] [facility] BP Systolic 2020-09-17 11:00:00 148 mm[Hg] [facility] Oxygen saturation by 2020-09-17 11:00:00 92 /min [facility] Heart Rate 2020-09-17 11:00:00 119 /min [facility] Respiratory rate 2020-09-17 11:00:00 39 /min [facility] BP Diastolic 2020-09-17 10:00:00 86 mm[Hg] [facility] BP Systolic 2020-09-17 10:00:00 181 mm[Hg] [facility] Heart Rate 2020-09-17 10:00:00 105 /min [facility] Respiratory rate 2020-09-17 10:00:00 38 /min [facility] BP Diastolic 2020-09-17 09:00:00 82 mm[Hg] [facility] BP Systolic 2020-09-17 09:00:00 175 mm[Hg] [facility] O[facility] by 2020-09-17 09:00:00 97 /min [facility] Heart Rate 2020-09-17 09:00:00 88 /min [...] [facility] Heart Rate 2020-09-17 08:00:00 85 /min [...] [facility] Heart Rate 2020-09-17 07:00:00 84 /min [facility] Respiratory rate 2020-09-17 07:00:00 15 /min [facility] BP Diastolic 2020-09-17 06:00:00 87 mm[Hg] [facility] BP Systolic 2020-09-17 06:00:00 159 mm[Hg] [facility] Oxygen saturation by 2020-09-17 06:00:00 96 /min [facility] Heart Rate 2020-09-17 06:00:00 83 /min [...] [facility] Heart Rate 2020-09-17 05:00:00 84 /min [facility] Respiratory rate 2020-09-17 05:00:00 16 /min [facility] BP Diastolic 2020-09-17 04:00:00 85 mm[Hg] [facility] BP Systolic 2020-09-17 04:00:00 155 mm[Hg] [facility] Oxygen saturation by 2020-09-17 04:00:00 96 /min [facility] Heart Rate 2020-09-17 04:00:00 86 /min [facility] Res[facility] 2020-09-17 04:00:00 22 /min [facility] BP Diastolic 2020-09-17 03:30:00 84 mm[Hg] [facility] Systolic 2020-09-17 03:30:00 196 mm[Hg] [facility] BP Diastolic 2020-09-17 03:00:00 82 mm[Hg] [facility] BP Systolic 2020-09-17 03:00:00 188 mm[Hg] [facility] Oxygen saturation by 2020-09-17 03:00:00 97 /min [facility] Heart Rate 2020-09-17 03:00:00 90 /min [facility] Respiratory rate 2020-09-17 03:00:00 18 /min [facility] [place] Body Temperature 2020-09-17 03:00:00 97.6 [degF] [facility] BP Diastolic 2020-09-17 02:00:00 75 mm[Hg] [facility] BP Systolic 2020-09-17 02:00:00 154 mm[Hg] [facility] [place] Oxygen saturation by 2020-09-17 02:00:00 95 /min [facility] Heart Rate 2020-09-17 02:00:00 88 /min [facility] Respiratory rate 2020-09-17 02:00:00 18 /min [facility] BP Diastolic 2020-09-17 01:00:00 79 mm[Hg] [facility] BP Systolic 2020-09-17 01:00:00 144 mm[Hg] [facility] Oxygen saturation by 2020-09-17 01:00:00 94 /min [facility] Heart Rate 2020-09-17 01:00:00 88 /min [facility] Respiratory rate 2020-09-17 01:00:00 15 /min [facility] BP Diastolic 2020-09-17 00:00:00 76 mm[Hg] [facility] BP Systolic 2020-09-17 00:00:00 171 mm[Hg] [facility] Oxygen saturation by 2020-09-17 00:00:00 96 /min [facility] Heart Rate 2020-09-17 00:00:00 92 /min [facility] Respiratory rate 2020-09-17 00:00:00 26 /min [facility] Oxygen saturation by 2020-09-16 23:05:00 95 /min [facility] Heart Rate 2020-09-16 23:05:00 77 /min [...] [facility] Heart Rate 2020-09-16 23:00:00 83 /min [facility] Res[facility] rate 2020-09-16 23:00:00 23 /min [facility] Body Temperature 2020-09-16 23:00:00 97.1 [degF] [facility] BP Diastolic 2020-09-16 22:12:00 76 mm[Hg] [facility] BP Systolic 2020-09-16 22:12:00 137 mm[Hg] [facility] Heart [facility] 2020-09-16 22:12:00 80 /min [facility] BP Diastolic 2020-09-16 22:06:00 82 mm[Hg] [facility] Systolic 2020-09-16 22:06:00 176 mm[Hg] [facility] Oxygen saturation by 2020-09-16 22:06:00 96 /min [facility] Heart Rate 2020-09-16 22:06:00 82 /min [facility] Respiratory rate 2020-09-16 22:06:00 18 /min [facility] BP Diastolic 2020-09-16 22:03:00 81 mm[Hg] [facility] BP Systolic 2020-09-16 22:03:00 201 mm[Hg] [facility] Oxygen saturation by 2020-09-16 22:03:00 96 /min [facility] Heart Rate 2020-09-16 22:03:00 84 /min [facility] Respiratory rate 2020-09-16 22:03:00 22 /min [facility] BP Diastolic 2020-09-16 22:00:00 86 mm[Hg] [facility] BP Systolic 2020-09-16 22:00:00 206 mm[Hg] [facility] Oxygen saturation by 2020-09-16 22:00:00 96 /min [facility] Heart Rate 2020-09-16 22:00:00 86 /min [facility] Respiratory rate 2020-09-16 22:00:00 19 /min [facility] BP Diastolic 2020-09-16 21:01:00 69 mm[Hg] [facility] BP Systolic 2020-09-16 21:01:00 153 mm[Hg] [facility] O[facility] by 2020-09-16 21:01:00 96 /min [facility] Heart Rate 2020-09-16 21:01:00 85 /min [facility] Respiratory rate 2020-09-16 21:01:00 17 /min [facility] BP Diastolic 2020-09-16 20:44:00 111 mm[Hg] [facility] BP Systolic 2020-09-16 20:44:00 141 mm[Hg] [facility] [place] Oxygen saturation by 2020-09-16 20:44:00 96 /min [facility] Heart Rate 2020-09-16 20:44:00 84 /min [facility] Respiratory rate 2020-09-16 20:44:00 21 /min [facility] Body Temperature 2020-09-16 20:44:00 98.0 [degF] [facility] BP Diastolic 2020-09-16 20:42:00 111 mm[Hg] [facility] BP Systolic 2020-09-16 20:42:00 141 mm[Hg] [facility] Heart Rate 2020-09-16 20:42:00 84 /min [facility] BP Diastolic 2020-09-16 20:24:00 66 mm[Hg] [facility] BP Systolic 2020-09-16 20:24:00 163 mm[Hg] [facility] Heart Rate 2020-09-16 20:24:00 84 /min [facility] BP Diastolic 2020-09-16 20:00:00 88 mm[Hg] [facility] BP Systolic 2020-09-16 20:00:00 185 mm[Hg] [facility] Oxygen saturation by 2020-09-16 20:00:00 96 /min [facility] Heart Rate 2020-09-16 20:00:00 96 /min [facility] Respiratory rate 2020-09-16 20:00:00 21 /min [facility] Body Temperature 2020-09-16 20:00:00 98.0 [degF] [facility] O[facility] by 2020-09-16 19:40:00 96 /min [facility] Patients [facility] Heart Rate 2020-09-16 19:40:00 105 /min [facility] Respiratory rate 2020-09-16 19:40:00 27 /min [facility] BP Diastolic 2020-09-16 16:00:00 90 mm[Hg] [facility] BP Systolic 2020-09-16 16:00:00 175 mm[Hg] [facility] Oxygen saturation by 2020-09-16 16:00:00 96 /min [facility] Heart Rate 2020-09-16 16:00:00 108 /min [facility] Respiratory rate 2020-09-16 16:00:00 36 /min [facility] Body Temperature 2020-09-16 16:00:00 98.5 [degF] [facility] BP Diastolic 2020-09-16 13:00:00 73 mm[Hg] [facility] BP Systolic 2020-09-16 13:00:00 149 mm[Hg] [facility] Oxygen saturation by 2020-09-16 13:00:00 2 /min [facility] Heart Rate 2020-09-16 13:00:00 90 /min [facility] Respiratory rate 2020-09-16 13:00:00 15 /min [facility] BP Diastolic 2020-09-16 12:00:00 88 mm[Hg] [facility] BP Systolic 2020-09-16 12:00:00 174 mm[Hg] [facility] Oxygen [facility] by 2020-09-16 12:00:00 94 /min [facility] Heart Rate 2020-09-16 12:00:00 101 /min [facility] Respiratory rate 2020-09-16 12:00:00 32 /min [facility] [place] Body Temperature 2020-09-16 12:00:00 97.8 [degF] [facility] [place] Oxygen saturation by 2020-09-16 11:00:00 96 /min [facility] Heart Rate 2020-09-16 11:00:00 79 /min [...] Center BP Systolic 2020-09-16 10:00:00 166 mm[Hg] [facility] Oxygen saturation by 2020-09-16 10:00:00 95 /min [facility] Heart Rate 2020-09-16 10:00:00 82 /min [facility] Respiratory rate 2020-09-16 10:00:00 20 /min [facility] Body Temperature 2020-09-16 10:00:00 98.4 [degF] [facility] BP Diastolic 2020-09-16 09:00:00 82 mm[Hg] [facility] BP Systolic 2020-09-16 09:00:00 166 mm[Hg] [facility] Oxygen [facility] by 2020-09-16 09:00:00 95 /min [facility] Heart Rate 2020-09-16 09:00:00 82 /min [facility] Res[facility] rate 2020-09-16 09:00:00 20 /min [facility] BP Diastolic 2020-09-16 08:00:00 77 mm[Hg] [facility] BP Systolic 2020-09-16 08:00:00 197 mm[Hg] [facility] O[facility] by 2020-09-16 08:00:00 94 /min [facility] Heart Rate 2020-09-16 08:00:00 79 /min [facility] Respiratory rate 2020-09-16 08:00:00 23 /min [facility] BP Diastolic 2020-09-16 07:00:00 110 mm[Hg] [facility] BP Systolic 2020-09-16 07:00:00 173 mm[Hg] [facility] Oxygen saturation by 2020-09-16 07:00:00 95 /min [facility] Heart Rate 2020-09-16 07:00:00 73 /min [...] [facility] Heart Rate 2020-09-16 06:00:00 87 /min [facility] Respiratory rate 2020-09-16 06:00:00 19 /min [facility] BP Diastolic 2020-09-16 05:00:00 71 mm[Hg] [facility] BP Systolic 2020-09-16 05:00:00 150 mm[Hg] [facility] Oxygen saturation by 2020-09-16 05:00:00 96 /min [facility] Heart Rate 2020-09-16 05:00:00 89 /min [facility] Respiratory rate 2020-09-16 05:00:00 22 /min [facility] BP Diastolic 2020-09-16 04:00:00 71 mm[Hg] [facility] BP Systolic 2020-09-16 04:00:00 139 mm[Hg] [facility] Oxygen saturation by 2020-09-16 04:00:00 96 /min [facility] Heart Rate 2020-09-16 04:00:00 85 /min [facility] Respiratory rate 2020-09-16 04:00:00 16 /min [facility] BP Diastolic 2020-09-16 03:00:00 69 mm[Hg] [facility] BP Systolic 2020-09-16 03:00:00 135 mm[Hg] [facility] Oxygen saturation by 2020-09-16 03:00:00 95 /min [facility] Heart Rate 2020-09-16 03:00:00 82 /min [facility] Respiratory rate 2020-09-16 03:00:00 15 /min [facility] Body Temperature 2020-09-16 03:00:00 98.5 [degF] [facility] BP Diastolic 2020-09-16 02:00:00 66 mm[Hg] [facility] BP Systolic 2020-09-16 02:00:00 140 mm[Hg] [facility] Oxygen saturation by 2020-09-16 02:00:00 95 /min [facility] Heart Rate 2020-09-16 02:00:00 83 /min [facility] Respiratory rate 2020-09-16 02:00:00 17 /min [facility] BP Diastolic 2020-09-16 01:00:00 70 mm[Hg] [facility] BP Systolic 2020-09-16 01:00:00 164 mm[Hg] [facility] Oxygen saturation by 2020-09-16 01:00:00 96 /min [facility] Heart Rate 2020-09-16 01:00:00 84 /min [...] [facility] Heart Rate 2020-09-16 00:00:00 77 /min [facility] Respiratory rate 2020-09-16 00:00:00 20 /min [facility] Body Temperature 2020-09-16 00:00:00 98.6 [degF] [facility] BP Diastolic 2020-09-15 23:00:00 59 mm[Hg] [facility] BP Systolic 2020-09-15 23:00:00 143 mm[Hg] [facility] O[facility] by 2020-09-15 23:00:00 95 /min [facility] Heart Rate 2020-09-15 23:00:00 79 /min [facility] Res[facility] 2020-09-15 23:00:00 18 /min [facility] BP Diastolic 2020-09-15 22:00:00 55 mm[Hg] [facility] BP Systolic 2020-09-15 22:00:00 133 mm[Hg] [facility] Oxygen saturation by 2020-09-15 22:00:00 94 /min [facility] Heart Rate 2020-09-15 22:00:00 78 /min [facility] Respiratory rate 2020-09-15 22:00:00 17 /min [facility] BP Diastolic 2020-09-15 21:00:00 56 mm[Hg] [facility] BP Systolic 2020-09-15 21:00:00 145 mm[Hg] [facility] Oxygen [facility] by 2020-09-15 21:00:00 93 /min [facility] Heart Rate 2020-09-15 21:00:00 79 /min [facility] Res[facility] 2020-09-15 21:00:00 17 /min [facility] Oxygen saturation by 2020-09-15 20:50:00 94 /min [facility] Heart Rate 2020-09-15 20:50:00 81 /min [facility] Respiratory rate 2020-09-15 20:50:00 18 /min [facility] BP Diastolic 2020-09-15 20:00:00 56 mm[Hg] [facility] BP Systolic 2020-09-15 20:00:00 165 mm[Hg] [facility] Oxygen saturation by 2020-09-15 20:00:00 97 /min [facility] - Pulse oximetry Patients [facility] Heart Rate 2020-09-15 20:00:00 76 /min [facility] Respiratory rate 2020-09-15 20:00:00 22 /min [facility] Oxygen saturation by 2020-09-15 19:00:00 96 /min [facility] Pulse [facility]xim[facility] Patients [facility] Respiratory rate 2020-09-15 19:00:00 14 /min [facility] Body Temperature 2020-09-15 19:00:00 98.7 [degF] [facility] BP Diastolic 2020-09-15 18:00:00 115 mm[Hg] [facility] BP Systolic 2020-09-15 18:00:00 154 mm[Hg] [facility] Oxygen saturation by 2020-09-15 18:00:00 94 /min [facility] - Pulse oximetry Patients [facility] Heart Rate 2020-09-15 18:00:00 79 /min [facility] Respiratory rate 2020-09-15 18:00:00 19 /min [facility] BP Diastolic 2020-09-15 17:00:00 65 mm[Hg] [facility] BP Systolic 2020-09-15 17:00:00 154 mm[Hg] [facility] Oxygen saturation by 2020-09-15 17:00:00 95 /min [facility] - Pulse oximetry Patients [facility] Heart Rate 2020-09-15 17:00:00 71 /min [facility] Respiratory rate 2020-09-15 17:00:00 18 /min [facility] BP Diastolic 2020-09-15 16:00:00 75 mm[Hg] [facility] BP Systolic 2020-09-15 16:00:00 159 mm[Hg] [facility] Oxygen saturation by 2020-09-15 16:00:00 94 /min [facility] - Pulse oximetry Patients [facility] Heart Rate 2020-09-15 16:00:00 75 /min [facility] Respiratory rate 2020-09-15 16:00:00 16 /min [facility] BP Diastolic 2020-09-15 15:14:00 71 mm[Hg] [facility] BP Systolic 2020-09-15 15:14:00 169 mm[Hg] [facility] Oxygen saturation by 2020-09-15 15:14:00 100 /min [facility] - Pulse oximetry Patients [facility] Heart Rate 2020-09-15 15:14:00 75 /min [facility] Body Temperature 2020-09-15 15:14:00 97.7 [degF] [facility] BP Diastolic 2020-09-15 15:10:00 66 mm[Hg] [facility] BP Systolic 2020-09-15 15:10:00 156 mm[Hg] [facility] Oxygen saturation by 2020-09-15 15:10:00 100 /min [facility] - Pulse oximetry Patients [facility] Heart Rate 2020-09-15 15:10:00 74 /min [facility] Respiratory rate 2020-09-15 15:10:00 18 /min [facility] BP Diastolic 2020-09-15 14:50:00 84 mm[Hg] [facility] BP Systolic 2020-09-15 14:50:00 176 mm[Hg] [facility] Oxygen saturation by 2020-09-15 14:50:00 100 /min [facility] Pulse oximetry Patients [facility] Heart Rate 2020-09-15 14:50:00 81 /min [facility] Respiratory rate 2020-09-15 14:50:00 18 /min [facility] BP Diastolic 2020-09-15 14:40:00 94 mm[Hg] [facility] BP Systolic 2020-09-15 14:40:00 200 mm[Hg] [facility] Oxygen saturation by 2020-09-15 14:40:00 97 /min [facility] - Pulse oximetry Patients [facility] Heart Rate 2020-09-15 14:40:00 96 /min [facility] Respiratory rate 2020-09-15 14:40:00 16 /min [facility] BP Diastolic 2020-09-15 14:25:00 96 mm[Hg] [facility] BP Systolic 2020-09-15 14:25:00 175 mm[Hg] [facility] Oxygen saturation by 2020-09-15 14:25:00 98 /min [facility] - Pulse oximetry Patients [facility] Heart Rate 2020-09-15 14:25:00 99 /min [facility] Respiratory rate 2020-09-15 14:25:00 16 /min [facility] Body Temperature 2020-09-15 14:25:00 98.0 [degF] [facility] BP Diastolic 2020-09-15 11:14:00 67 mm[Hg] [facility] BP Systolic 2020-09-15 11:14:00 177 mm[Hg] [facility] Oxygen saturation by 2020-09-15 11:14:00 94 /min [facility] - Pulse oximetry Patients [facility] Heart Rate 2020-09-15 11:14:00 70 /min [facility] Respiratory rate 2020-09-15 11:14:00 18 /min [facility] Body Temperature 2020-09-15 11:14:00 97.6 [degF] [facility] BP Diastolic 2020-09-15 08:52:00 75 mm[Hg] [facility] BP Systolic 2020-09-15 08:52:00 171 mm[Hg] [facility] Oxygen saturation by 2020-09-15 08:52:00 92 /min [facility] Pulse oximetry Patients [facility] Heart Rate 2020-09-15 08:52:00 74 /min [facility] Respiratory rate 2020-09-15 08:52:00 18 /min [facility] Body Temperature 2020-09-15 08:52:00 97.6 [degF] [facility] BP Diastolic 2020-09-15 07:45:00 75 mm[Hg] [facility] BP Systolic 2020-09-15 07:45:00 171 mm[Hg] [facility] Oxygen saturation by 2020-09-15 07:45:00 92 /min [facility] Pulse oximetry Patients [facility] Heart Rate 2020-09-15 07:45:00 74 /min [facility] Respiratory rate 2020-09-15 07:45:00 18 /min [facility] Body Temperature 2020-09-15 07:45:00 97.6 [degF] [facility] BP Diastolic 2020-09-15 04:00:00 56 mm[Hg] [facility] BP Systolic 2020-09-15 04:00:00 156 mm[Hg] [facility] Oxygen saturation by 2020-09-15 04:00:00 93 /min [facility] - Pulse oximetry Patients [facility] Heart Rate 2020-09-15 04:00:00 68 /min [facility] Respiratory rate 2020-09-15 04:00:00 18 /min [facility] Body Temperature 2020-09-15 04:00:00 98.4 [degF] [facility] BP Diastolic 2020-09-15 00:00:00 71 mm[Hg] [facility] BP Systolic 2020-09-15 00:00:00 140 mm[Hg] [facility] Oxygen saturation by 2020-09-15 00:00:00 94 /min [facility] Pulse [facility]ximetry Patients [facility] Heart Rate 2020-09-15 00:00:00 72 /min [facility] Respiratory rate 2020-09-15 00:00:00 18 /min [facility] Body Temperature 2020-09-15 00:00:00 98.4 [degF] [facility] BP Diastolic 2020-09-14 20:27:00 80 mm[Hg] [facility] BP Systolic 2020-09-14 20:27:00 180 mm[Hg] [facility] Oxygen saturation by 2020-09-14 20:27:00 92 /min [facility] - Pulse oximetry Patients [facility] Heart Rate 2020-09-14 20:27:00 90 /min [facility] Respiratory rate 2020-09-14 20:27:00 20 /min [facility] Body Temperature 2020-09-14 20:27:00 98.5 [degF] [facility] BP Diastolic 2020-09-14 20:00:00 80 mm[Hg] [facility] BP Systolic 2020-09-14 20:00:00 180 mm[Hg] [facility] Oxygen saturation by 2020-09-14 20:00:00 92 /min [facility] - Pulse oximetry Patients [facility] Heart Rate 2020-09-14 20:00:00 90 /min [facility] Respiratory rate 2020-09-14 20:00:00 20 /min [facility] Body Temperature 2020-09-14 20:00:00 98.5 [degF] [facility] BP Diastolic 2020-09-14 15:47:00 82 mm[Hg] [facility] BP Systolic 2020-09-14 15:47:00 155 mm[Hg] [facility] Oxygen saturation by 2020-09-14 15:47:00 95 /min [facility] - Pulse oximetry Patients [facility] Heart Rate 2020-09-14 15:47:00 85 /min [facility] Respiratory rate 2020-09-14 15:47:00 16 /min [facility] Body Temperature 2020-09-14 15:47:00 98.1 [degF] [facility] BP Diastolic 2020-09-14 11:15:00 73 mm[Hg] [facility] BP Systolic 2020-09-14 11:15:00 165 mm[Hg] [facility] Oxygen saturation by 2020-09-14 11:15:00 93 /min [facility] - Pulse oximetry Patients [facility] Heart Rate 2020-09-14 11:15:00 89 /min [facility] Respiratory rate 2020-09-14 11:15:00 19 /min [facility] Body Temperature 2020-09-14 11:15:00 98.3 [degF] [facility] BP Diastolic 2020-09-14 07:49:00 67 mm[Hg] [facility] BP Systolic 2020-09-14 07:49:00 166 mm[Hg] [facility] Oxygen saturation by 2020-09-14 07:49:00 93 /min [facility] - Pulse oximetry Patients [facility] Heart Rate 2020-09-14 07:49:00 88 /min [...] 166 mm[Hg] [facility] Oxygen saturation by 2020-09-14 07:31:00 93 /min [facility] - Pulse oximetry Patients [facility] Heart Rate 2020-09-14 07:31:00 88 /min [...] [facility] Pulse [facility]ximetry Patients [facility] Heart Rate 2020-09-14 04:00:00 94 /min [facility] Respiratory rate 2020-09-14 04:00:00 18 /min [facility] Body Temperature 2020-09-14 04:00:00 97.9 [degF] [facility] BP Diastolic 2020-09-14 00:00:00 77 mm[Hg] [facility] BP Systolic 2020-09-14 00:00:00 178 mm[Hg] [facility] Oxygen saturation by 2020-09-14 00:00:00 95 /min [facility] - Pulse oximetry Patients [facility] Heart Rate 2020-09-14 00:00:00 90 /min [facility] Respiratory rate 2020-09-14 00:00:00 18 /min [facility] Body Temperature 2020-09-14 00:00:00 98.1 [degF] [facility] BP Diastolic 2020-09-13 20:12:00 84 mm[Hg] [facility] BP Systolic 2020-09-13 20:12:00 177 mm[Hg] [facility] Oxygen saturation by 2020-09-13 20:12:00 94 /min [facility] - Pulse oximetry Patients [facility] Heart Rate 2020-09-13 20:12:00 88 /min [...] [facility] Pulse [facility]ximetry Patients [facility] Heart Rate 2020-09-13 20:00:00 88 /min [...] [facility] Pulse [facility]ximetry Patients [facility] Heart Rate 2020-09-13 16:11:00 78 /min [...] [facility] Pulse [facility]ximetry Patients [facility] Heart Rate 2020-09-13 12:08:00 82 /min [facility] Respiratory rate 2020-09-13 12:08:00 17 /min [facility] Body Temperature 2020-09-13 12:08:00 98.2 [degF] [facility] BP Diastolic 2020-09-13 11:16:00 79 mm[Hg] [facility] BP Systolic 2020-09-13 11:16:00 151 mm[Hg] [facility] Oxygen saturation by 2020-09-13 11:16:00 95 /min [facility] - Pulse oximetry Patients [facility] Heart Rate 2020-09-13 11:16:00 79 /min [facility] Respiratory rate 2020-09-13 11:16:00 18 /min [facility] Body Temperature 2020-09-13 11:16:00 97.4 [degF] [facility] BP Diastolic 2020-09-13 08:45:00 79 mm[Hg] [facility] BP Systolic 2020-09-13 08:45:00 151 mm[Hg] [facility] Oxygen saturation by 2020-09-13 08:45:00 95 /min [facility] - Pulse oximetry Patients [facility] Heart Rate 2020-09-13 08:45:00 79 /min [...] 179 mm[Hg] [facility] Oxygen saturation by 2020-09-13 04:00:00 92 /min [facility] - Pulse oximetry Patients [facility] Heart Rate 2020-09-13 04:00:00 87 /min [facility] Respiratory rate 2020-09-13 04:00:00 20 [...] [facility] Pulse oximetry Patients [facility] Heart Rate 2020-09-13 00:00:00 76 /min [facility] Respiratory rate 2020-09-13 00:00:00 20 /min [facility] Body Temperature 2020-09-13 00:00:00 98.7 [degF] [facility] BP Diastolic 2020-09-12 22:28:00 92 mm[Hg] [facility] BP Systolic 2020-09-12 22:28:00 150 mm[Hg] [facility] Oxygen saturation by 2020-09-12 22:28:00 95 /min [facility] - Pulse oximetry Patients [facility] Heart Rate 2020-09-12 22:28:00 96 /min [facility] Respiratory rate 2020-09-12 22:28:00 18 /min [facility] Body Temperature 2020-09-12 22:28:00 97.9 [degF] [facility] BP Diastolic 2020-09-12 22:18:00 92 mm[Hg] [facility] BP Systolic 2020-09-12 22:18:00 150 mm[Hg] [facility] Oxygen saturation by 2020-09-12 22:18:00 95 /min [facility] - Pulse oximetry Patients [facility] Heart Rate 2020-09-12 22:18:00 96 /min [facility] Respiratory rate 2020-09-12 22:18:00 18 /min [facility] Body Temperature 2020-09-12 22:18:00 97.9 [degF] [facility] BP Diastolic 2020-09-12 20:23:00 92 mm[Hg] [facility] BP Systolic 2020-09-12 20:23:00 150 mm[Hg] [facility] Oxygen saturation by 2020-09-12 20:23:00 96 /min [facility] - Pulse oximetry Patients [facility] Heart Rate 2020-09-12 20:23:00 95 /min [facility] Patients [facility] Respiratory rate 2020-09-12 20:23:00 18 /min [facility] Patients [facility] Body Temperature 2020-09-12 20:23:00 97.9 [degF] [facility] Oxygen saturation by 2020-09-12 20:11:00 96 /min [facility] - Pulse oximetry Patients [facility] Oxygen saturation by 2020-09-12 18:25:00 98 /min [facility] - Pulse oximetry Patients [facility] Oxygen saturation by 2020-09-12 15:35:00 98 /min [facility] - Pulse oximetry Patients [facility] Procedures Procedure Date / Time Performing Clinician Source Performed HC COMPLETE BLD COUNT 2020-12-03 05:00:00 Andrew Calix W/AUTO DIFF BASIC METABOLIC PANEL 2020-12-03 04:00:00 Andrew Calix ESTIMATED GFR 2020-12-03 04:00:00 Andrew Calix MRI BRAIN WO CONTRAST 2020-12-02 12:48:00 Andrew Calix BASIC METABOLIC PANEL 2020-12-02 03:52:00 Andrew Calix ESTIMATED GFR 2020-12-02 03:52:00 Andrew Calix HC COMPLETE BLD COUNT 2020-12-02 03:38:00 Andrew Calix W/AUTO DIFF US CAROTID DUPLEX 2020-12-01 15:45:00 Andrew Calix BILATERAL TTE COMPLETE, WO 2020-12-01 11:39:21 Andrew Calix CONTRAST, W DOPPLER ([id number]) HC COMPLETE BLD COUNT 2020-12-01 04:30:00 Andrew Calix W/AUTO DIFF BASIC METABOLIC PANEL 2020-12-01 04:00:00 Andrew Calix ESTIMATED GFR 2020-12-01 04:00:00 Andrew Calix LIPID PANEL 2020-11-30 21:15:00 Andrew Calix THYROID STIMULATING 2020-11-30 21:15:00 Andrew Calix HORMONE T4, FREE 2020-11-30 21:15:00 Andrew Calix TROPONIN 2020-11-30 21:15:00 Andrew Calix HEMOGLOBIN A1C 2020-11-30 20:15:00 Andrew Calix URINALYSIS, AUTOMATED 2020-11-30 17:23:00 Elliot Parkinson WITH MICROSCOPY COVID-19 QUALITATIVE 2020-11-30 16:44:00 Elliot Parkinson RT-PCR CT HEAD WO CONTRAST 2020-11-30 14:03:[address] ANGIOGRAM PE CHEST 2020-11-30 14:03:13 Elliot Parkinson ECG ED PRELIMINARY 2020-11-30 12:08:13 Elliot Parkinson INTERPRETATION HC COMPLETE BLD COUNT 2020-11-30 11:15:00 Elliot Parkinson W/AUTO DIFF PROTHROMBIN TIME WITH INR 2020-11-30 11:15:00 Elliot Parkinson PARTIAL THROMBOPLASTIN 2020-11-30 11:15:00 Elliot Parkinson TIME (PTT) COMPREHENSIVE METABOLIC 2020-11-30 11:15:00 Elliot Parkinson Zoroastrian PANEL TROPONIN 2020-11-30 11:15:00 Elliot Parkinson hodist B NATRIURETIC PEPTIDE 2020-11-30 11:15:00 Elliot Parkinson on Zoroastrian ESTIMATED GFR 2020-11-30 11:15:00 Elliot Parkinson Met hodist D-DIMER 2020-11-30 11:15:00 Elliot Parkinson Met hodist ECG 12-LEAD 2020-11-30 10:58:05 Elliot Parkinson Met hodist Computed tomography of 2020-09-20 00:00:00 RUSTAM Bruno - chest with contrast Patients [facility] Exploratory laparotomy 2020-09-15 00:00[facility] CT of abdomen and pelvis 2020-03-02 00:00:00 [facility] Plan of Care Planned Activity Planned Date Details Comments Source Future Scheduled 2021-01-28 INFLUENZA VACCINE Jermaine simpson [facility] Test 00:00:00 [code = INFLUENZA VACCINE] Future Scheduled 1981-12-16 SHINGLES VACCINES (#1) Jo Ann maldonado [facility] Test 00:00:00 [code = SHINGLES VACCINES (#1)] Future Scheduled 1943 COVID-19 VACCINE (1) Ainsley williamcalvin [facility] Test 00:00:00 [code = COVID-19 VACCINE (1)] Future Scheduled 1936-12-16 65+ PNEUMOCOCCAL [place] [facility] Test 00:00:00 VACCINE (1 of 2 - PPSV23) [code = 65+ PNEUMOCOCCAL VACCINE (1 of 2 - PPSV23)] Encounters Start End Encounter Admission Attending Care Care Encounter Source Date/Time Date/Time Type Type Clinicians Facility Department ID 2020-12-29 2020-12-29 [facility] [id number] 14:04:19 23:59:00 Encounter Melody Ivory Rivka [id number] [place] [id number] [place] [id number] 2020-12-29 2020-12-29 [facility] [id number] 14:00:00 14:03:00 Encounter Melody Ivory Rivka [id number] [place] [id number] [place] [id number] 2020-12-29 2020-12-29 Orders Doctor DAVID [id number] 00:00:00 00:00:00 Only Unassigned, GREGORY [id number] [place] [facility] [id number] 2020-11-30 2020-12-04 Inpatient FIFI [facility] 064 [id number] [place] 00:00:00 00:00:00 ANDREW [address] 2020-09-12 2020-09-28 Discharged 1 SAINI, [facility] [id number] 19:18:00 13:20:00 Inpatient SOUHEIL Patients 99 [facility] 2020-03-02 2020-03-02 Registered 3 SAINI, [facility] [id number] 13:32:00 13:32:00 Clinic JEANNINE Patients 29 [facility] 2019-01-27 2019-01-27 Orders Doctor DAVID [id number] 00:00:00 00:00:00 Only UnassignedGREGORY [id number] Results Test Description Test Test Results Result Source Time Comments Comments MRI Brain 2020-11- Interface, [facility]iology [place] Contrast 05 Results Incoming - Method ist 13:04:52 12/02/2020 1:08 PM CDT EXAMINATION: MRI BRAIN CONTRASTCLINICAL HISTORY: Memory LossCOMPARISON: CT head 11/30/2020TECHNIQUE: Noncontrast brain MRI, including 3D SPGR, SWAN, and pCASL with PLD of 2.5 seconds. Regional brain segmentation and volumetric analysis was processed with Neuroreader software on an independent workstation and reviewed.FINDINGS:No evidence of acute intracranial hemorrhage, mass, mass effect, acute infarct, or midline shift.No evidence of prior territorial ischemia. Scattered subcortical and patchy periventricular white matter T2 FLAIR hyperintensity likely reflecting mild chronic microvascular ischemic change. Small chronic cortical insult involving the left cerebellar hemisphere. No evidence of abnormal susceptibility to suggest sequela of prior microhemorrhage. Mineralization of the bilateral globi pallidi. The major intracranial vascular flow voids appear preserved.Visually, there appears to be moderate cerebral and mild to moderate cerebellar volume loss without distinct lobar asymmetry. Unremarkable volume and morphology the brainstem. Volumetric analysis percentiles with Neuroreader:Whole brain matter: 45%Right hippocampus: 25% (appears exaggerated upon visual inspection)Left hippocampus: 45%Hippocampal asymmetry index and Z score: 0.20, 1.0Right temporal lobe: 49%Left temporal lobe: 45%Right frontal lobe: 42%Left frontal lobe: 42%Right parietal lobe: 33%Left parietal lobe: 42%Right occipital lobe: 62%Left occipital lobe: 68%See full report in PACS.ASL perfusion: Nonspecific diffuse hypoperfusion.IMPRESSION: No structural evidence of neurodegenerative disease.[facility]-[id number] Pv carotid duplex 2020-11- Interface, Radiology [place] 04 Results In 12/01/2020 M [facility] 21:56:00 9:57 PM CDT [facility] Carotid Artery Duplex Report [address] [place] [address] For senior quality assurance engineer purposes, the categorization of the degree of the stenosis of this exam is based on criteria described in the IAC carotid stenosis grading white paper( www.intersocietal.org/Vas cular) and Shakira Angulo., Mary RuthB., et al. Carotid artery stenosis: davis-scale and Doppler US diagnosis--Society of Radiologists in Ultrasound Consensus Conference. Radiology. 2003 Nov; 229(2):340-6. Pat.Name: JUSTICE HARDY Pat.ID: [id number] .Date: 12/01/2020 Refer.MD: ANDREW CALIX MD Exam Time: 3:19:00 PM Study Type:Carotid Height: 64in Weight: 120lb BSA: 1.58 m2 Age: 6 1930,89Y Sex: MALE Sonogrphr: VINCENZO Leigh Pat. Stat.:Inpatient Room: [facility]8 0850-A Tape Vol: GB, CPT - 4: 14657 Echo Event ID:[id number] Order ID: [id number] Reason for Study:Altered mental status. 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 There ishard and calcified plaque noted in the bulb extending into theproximal internal and external carotid arteries. Colorflow is normal. LEFT: There is hard plaque in the common carotid artery. There ishard and calcified plaque noted in the bulb extending into theproximal internal and external carotid arteries. Colorflow is normal. PRELIMINARY FINDINGS1. Non-stenotic plaque in the common carotid artery, bilaterally.2. <50% stenosis in the bulb and internal carotid artery,bilaterally. 3. <50% stenosis in the external carotid artery, bilaterally. 4. Both vertebral arteries are antegrade.PHYSICIAN INTERPRETATION Bilateral carotid duplex examination demonstrated atheroscleroticplaques in the bulbs/ CCAs. Less than 50% stenosis in the bulb and internal carotid artery,bilaterally.Both vertebral arteries are antegrade. FIND INGS: Carotid Findings: Right Left Verteb.Flw Antegrade Antegrade Subclavian Biphasic Biphasic MEASUREMENTS:- DOPPLERLeft CCA Dist CCA Dist PSV 78.6 cm/s CCA Dist EDV 12.3 cm/sLeft CCA Mid CCA Mid PSV 97.3 cm/s CCA Mid EDV 11.1 cm/sLeft CCA Prox CCA Prox PSV 91.5 cm/s CCA Prox EDV 9.38 cm/sLeft ICA Dist ICA Dist PSV 97.3 cm/s ICA Dist EDV 20.5 cm/sLeft ICA Mid ICA Mid PSV 104 cm/s ICA Mid EDV 27.6 cm/sLeft ICA Prox ICA Prox PSV 60.4 cm/s ICA Prox EDV 13.5 cm/sLeft ECA Prox ECA Prox PSV 92 cm/s ECA Prox EDV 0 cm/sLeft SCA Prox SCA Prox PSV 148 cm/s Left Vertebral Vertebral PSV 65.1 cm/s Vertebral EDV 11.7 cm/sRight CCA Dist CCA Dist PSV 71.5 cm/s CCA Dist EDV 9.38 cm/sRight CCA Mid CCA Mid PSV 76.2 cm/s CCA Mid EDV 10.6 cm/sRight CCA Prox CCA Prox PSV 88.5 cm/s CCA Prox EDV 6.45 cm/sRight ICA Dist ICA Dist PSV 40.6 cm/s ICA Dist EDV 9.57 cm/sRight ICA Mid ICA Mid PSV 58.6 cm/s ICA Mid EDV 12.9 cm/sRight ICA Prox ICA Prox PSV 79.7 cm/s ICA Prox EDV 10.6 cm/sRight ECA Prox ECA Prox PSV 103 cm/s ECA Prox EDV 0 cm/sRight SCA Prox SCA Prox PSV 143 cm/s Right Vertebral Vertebral PSV 53.9 cm/s Vertebral EDV 11.1 cm/sRight ICA/CCA Ratio ICA/CCA PSV 1.05 Left ICA/CCA Ratio ICA/CCA PSV 0.621 Signed 12/01/2020 09:56 PMShiva Leahy MD, RPVI Transthoracic 2020-11- Interface, Radiology [facility] Echocardiogram 04 Results In - 12/01/2020 Zoroastrian Complete, (w 14:37:00 2:38 PM CDTFormatting of Contrast, Strain this note might be and 3D if needed) different from the original. Echocardiography Report [address] [address] [facility].Name: JSUTICE HARDY Pat.ID: [id number] .Date: 12/01/2020 Refer.MD: ANDREW CALIX MDExam Time: 10:51:00 AM Study Type:Routine Echo Height: 64in Weight: 120lb BSA: 1.58 m2 Age: 6 1930,89Y Sex: MALE BP: 183/90 HR: 90 bpm Sonogrphr: Glenny Carr [facility]. Stat.:Inpatient Room: [facility] Study Status:Final Echo Event ID:[id number] Order ID: [id number] Reason for Study:hx of TAVR History / Clinical:Valvular Heart Disease; Aortic StenosisProcedures: 2D Echo, Colorflow Doppler, StrainRace: SUMMARY:------ -----Normal average LV global longitudinal strain at -17.6%. LV EF ishyperdynamic. Estimated EF is >70%.RV size is normal. RV systolic function is normal.Transcatheter bioprosthetic aortic valve. Transcatheter AV Dopplervelocity index is 0.7 (normal >0.50).Mild paravalvular aortic regurgitation. FINDINGS: LV: LV size is normal. Normal average LV global longitudinal strain at -17.6%. LV EF is hyperdynamic. Overall wall motion is hyperdynamic. Estimated EF is >70%.RV: RV size is normal. RV systolic function is normal.LA: LA volume is mildly enlarged.RA: RA size is normal.AO: Aortic root diameter is normal.JAIRO: No pericardial effusion.AV: Transcatheter bioprosthetic aortic valve. Mild paravalvular aortic regurgitation. Normal prosthetic valve velocity and gradient. Transcatheter AV Doppler velocity index is 0.7 (normal >0.50).MV: Mild mitral annular calcification. A trace of mitral regurgitation. PV: No structural PV abnormalities noted. Mild pulmonic regurgitation. TV: No structural TV abnormalities noted. A trace of tricuspid regurgitation Maurer: Diastolic dysfunction Grade I (Mild): Impaired relaxation with normal LV filling pressures.Other: Insufficient TR jet to estimate PA systolic pressure. MEASU REMENTS: 2DParasternal Long Bath Ao An 1.9 cm LVPWd 0.94 cm Ao Rtd 3 cm Index 1.9 cm/m2 LA Ds 4.2 cm IVSd 0.93 cm RWT 0.39 LVIDd 4.8 cm Index 3 cm/m2 LV Mass 155 g (122-174) LVIDs 2.8 cm LVM Index 98 g/m2 LV%fs 42 % LVOT 1.9 cm LA Sng Plane LA Area 20 cm2 (8.8-23.4) LA Vol 57 ml Index 36 ml/m2 LA LngAx 6 cm RA Sng Plane RA Vol 39 ml Index 24 ml/m2 RA LngAx 6.2 cm RA Area 16 cm2 (8.3-19.5)LVOT LVOT Area 2.8 cm2 DOPPLERAV For Flow/AUGIE AV pkVel 247 cm/s (100-170)* AV AC/ET 0.17 AV mnVel 133 cm/s AV TVI 37 cm AV pkPG 24 mmHg AVpkAcRt 7006 cm/s2 AV Mean G 9.5 mmHg AV DeRt 897 cm/s2 AV ET 275 msec AV AC 48 msec (83-118)*Aortic Valve AV DI 0.7 AV Area 1.9 cm2 (3-5)*LVOT For Flow LVOT TVI 26 cm LVOTmnPG 4.3 mmHg LVOTpkVel 156 cm/s HR 82 bpm LVOTpkPG 9.8 mmHg LVOT LVOT SV 72 ml LVOT CO 5.9 l/min SVi 45 ml/m2 LVOT CI 3.7 l/m/m2 Signed 12/01/2020 02:37 PMShercj Magdaleno M.D. SARS-CoV-2 (COVID-19) RNA [Presence] in Respiratory sp ecimen by 2020-11-30 21:29:57 MARSHA with probe detection Test Item Value Reference Range Interpretation Comme nts SARS-CoV-2 (COVID-19) RNA [Presence] in Respiratory Not detected No t-Detected specimen by MARSHA with probe detection (test code = 39882-8) Whether patient is employed in a healthcare setting (test code = 94597-8) Whether the patient has symptoms related to condition of interest (test code = 57815-0) Patient was hospitalized because of this condition (test code = 26846-2) Whether the patient was admitted to intensive care unit (ICU) for condition of interest (test code = 91284-5) Whether patient resides in a congregate care setting (test code = 43530-3) CT Angiogram Pe [id number] 14:27:27Hm Interface, Radiology Results Incoming - 11/30/2020 2:[address] ANGIOGRAM PE CHESTCLINICAL HISTORY:PE suspected low intermediate probpositive D-dimer, doctor sent to get a ct chest TECHNIQUE:CT angiographic images of the chest were obtained during intravenous administration of iodinated contrast. Computerized reformatted images and3-D MIP images were also obtained and archived (CT pulmonary embolus protocol).CT scans are performed using radiation dose reduction techniques. Technical factors are evaluated and adjusted to ensure appropriate moderation of exposure. Automated dose management technology is applied to adjust radiation exposure while achieving a diagnostic quality image.COMPARISON:None.FINDINGS:Pulmonary arteries: Noevidence of pulmonary thromboembolism seen to the level of the subsegmental arteries. Main pulmonaryartery is of normal caliber. No CT evidence of right heart strain. Cardiovascular: Heart size is within normal limits. No significant pericardial effusion. Thoracic aorta is of normal caliber. There caterina TAVR. There is coronary artery calcification.Lungs, airways and pleural spaces: There is a tiny left upper lobe pulmonary nodule measuring 3 mm. Bilateral bronchial wall thickening is present. Thoracic inlet, mediastinum and lymph nodes: Bilateral thyroid calcifications are seen. A couple hypodense lesion in the left thyroidectomy better evaluated with thyroid ultrasound. There is a borderline enlarged right hilar lymph node.Upper abdomen: Small hypodensity in the right kidney is 6.5 cm. A couple smaller hypodensities left kidney are seen. These are likely cysts. 5 mm right renal stone is seen. Stool present throughout the colon compatible with constipation.Musculoskeletal: The bones are osteopenic.IMPRESSION:*No pulmonary embolus identified.*Tiny right renal stone.*Thyroid nodules which could be better assessed with thyroid ultrasound.*3 mm left pulmonary nodules of uncertain significance. Follow-up can be performed if desired.*Bilateral bronchial wall thickening.*Constipation.[facility] 2020-11-30 14:08:27Hm Interface, Radiology Results 11/30/2020 2:11 PM CDT EXAMINATION: CT HEAD WO CONTRASTCLINICAL HISTORY: confusedCOMPARISON: None.TECHNIQUE: CT imaging was performed with iterative reconstruction technique and/or automated exposure control to reduce radiation dose.Findings:No intracranial hemorrhage, acute transcortical ischemia, extra-axial fluid collections or parenchymal mass lesions. No skull fractures or aggressive bony lesions.Mild chronic ischemic small slight matter changes. 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 Dystrophic calcifications in the deep davis nuclei. Paranasal sinuses and mastoid air cells are clear.IMPRESSION:No acute intracranial abnormalities.[id number] 12 [id number] 13:15:52 Test Item Value Reference Range Interpretation Comments Ventricular rate (test 75 code = 253) Atrial rate (test code = 75 255) SD interval (test code = 148 266) QRSD interval (test code 80 = 260) QT interval (test code = 390 264) QTC interval (test code = 435 265) P axis 1 (test code = 63 267) QRS axis 1 (test code = -43 268) T wave axis (test code = 63 270) EKG impression (test code Normal sinus = 273) rhythm-Left axis deviation-Abnormal ECG- [facility] Preliminary Interpretation - Not an [id number] 12:08:13Elliot Parkinson MD 12/06/2020 2:01 AMECG ED Preliminary Interpretation - Not an OrderPerformed by: Elliot Parkinson MDAuthorized by: Elliot Parkinson MD ECG reviewed by ED Physician in the absence of a chief i dispatcher: yes Rate: ECG rate: 75 ECG rate assessment: normal Rhythm: Rhythm: sinus rhythm Ectopy: Ectopy: none QRS: QRS axis: Left QRS intervals: NormalConduction: Conduction: normal ST segments: ST segments: Non-specificT waves: T waves: normalHouston MethodistBlood leukocytes automated count (number/volume)2020-09-28 05:25:00 Test Item Value Reference Range Interpretation Comments White Blood Count (test code = 6690-2) 10.37 4.8-10.8 [facility] erythrocytes automated count (number/volume)2020-09-28 05:25:00 Test Item Value Reference Range Interpretation Comments Red Blood Count (test code = 789-8) 3.00 4.3-5.7 [facility] CenterBlood hemoglobin measurement (moles/volume)2020-09-28 05:25:00 Test Item Value Reference Range Interpretation Comments Hemoglobin (test code = 97773-0) 9.1 14.0-18.0 [facility] CenterAutomated blood hematocrit (volume fraction)2020-09-28 05:25:00 Test Item Value Reference Range Interpretation Comments Hematocrit (test code = 4544-3) 26.0 38.2-49.6 [facility] CenterAutomated erythrocyte mean corpuscular [id number] 05:25:00 Test Item Value Reference Range Interpretation Comments Mean Corpuscular Volume (test code = 86.7 81-99 787-2) [facility] CenterAutomated erythrocyte mean corpuscular hemoglobin (mass per erythrocyte)2020-09-28 05:25:00 Test Item Value Reference Range Interpretation Comments Mean Corpuscular Hemoglobin (test code 30.3 28-32 = 785-6) [facility] CenterAutomated erythrocyte mean corpuscular hemoglobin concentration measurement (mass/volume)2020-09-28 05:25:00 Test Item Value Reference Range Interpretation Comments Mean Corpuscular Hemoglobin Concent 35.0 31-35 (test code = 786-4) [facility] CenterRDW NjyWr-Rxn3490-71-01 05:25:00 Test Item Value Reference Range Interpretation Comments Red Cell Distribution Width (test code 16.1 11.7-14.4 = 83821-2) [facility] CenterAutomated blood platelet count (count/volume)2020-09-28 05:25:00 Test Item Value Reference Range Interpretation Comments Platelet Count (test code = 777-3) 253 140-360 [facility] CenterAutomated blood segmented neutrophil count as percentage of total bpgcboszkx1772-22-94 05:25:00 Test Item Value Reference Range Interpretation Comments Neutrophils (%) (Auto) (test code = 77.9 38.7-80.0 03931-7) [facility] CenterAutomated blood lymphocyte count as percentage ot total ftityxbhzj7138-86-96 05:25:00 Test Item Value Reference Range Interpretation Comments Lymphocytes (%) (Auto) (test code = 12.3 18.0-39.1 736-9) [facility] CenterAutomated blood monocyte count as percentage of total yjfmvvdzno5132-24-73 05:25:00 Test Item Value Reference Range Interpretation Comments Monocytes (%) (Auto) (test code = 6.4 4.4-11.3 5905-5) [facility] CenterAutomated blood eosinophil count as percentage of total vkpweofjvf3895-64-17 05:25:00 Test Item Value Reference Range Interpretation Comments Eosinophils (%) (Auto) (test code = 1.8 0.0-6.0 713-8) [facility] CenterAutomated blood basophil count as percentage of total twkpqstfzt9235-28-03 05:25:00 Test Item Value Reference Range Interpretation Comments Basophils (%) (Auto) (test code = 0.4 0.0-1.0 706-2) [facility] CenterFluoroscopic procedure less than one hour rlhcsufi0201-14-18 05:25:00 Test Item Value Reference Range Interpretation Comments IM GRANULOCYTES % (test code = IM 1.2 0.0-1.0 GRANULOCYTES %) [facility] CenterAutomated blood neutrophil count 2020-09-28 05:25:00 Test Item Value Reference Range Interpretation Comments Neutrophils # (Auto) (test code = 8.1 2.1-6.9 751-8) [facility] CenterBlood lymphocytes count (number/volume) 2020-09-28 05:25:00 Test Item Value Reference Range Interpretation Comments Lymphocytes # (Auto) (test code = 1.3 1.0-3.2 24830-7) [facility] CenterBlood monocytes automated count (number/volume)2020-09-28 05:25:00 Test Item Value Reference Range Interpretation Comments Monocytes # (Auto) (test code = 742-7) 0.7 0.2-0.8 [facility] CenterAutomated blood eosinophil count 2020-09-28 05:25:00 Test Item Value Reference Range Interpretation Comments Eosinophils # (Auto) (test code = 0.2 0.0-0.4 711-2) [facility] CenterAutomated blood basophil count (count/volume)2020-09-28 05:25:00 Test Item Value Reference Range Interpretation Comments Basophils # (Auto) (test code = 704-7) 0.0 0.0-0.1 [facility] CenterFluoroscopic procedure less than one hour epwiblsl8943-16-06 05:25:00 Test Item Value Reference Range Interpretation Comments Absolute Immature Granulocyte (auto 0.12 0-0.1 (test code = Absolute Immature Granulocyte (auto) [facility] Hospitaler[facility] plasma sodium measurement (moles/volume)2020-09-28 05:25:00 Test Item Value Reference Range Interpretation Comments Sodium Level (test code = 2951-2) 132 136-145 [facility] Hospitalerum or plasma potassium measurement (moles/volume)2020-09-28 05:25:00 Test Item Value Reference Range Interpretation Comments Potassium Level (test code = 2823-3) 3.3 3.5-5.1 [facility] Hospitalerum or plasma chloride measurement (moles/volume)2020-09-28 05:25:00 Test Item Value Reference Range Interpretation Comments Chloride Level (test code = 2075-0) 106 98-107 [facility] Hospitalerum or plasma carbon dioxide, total measurement (moles/volume)2020-09-28 05:25:00 Test Item Value Reference Range Interpretation Comments Carbon Dioxide Level (test code = -8-9) [facility] Hospitalerum or plasma anion [id number] 05:25:00 Test Item Value Reference Range Interpretation Comments Anion Gap (test code = 06265-1) 9.3 8-16 [facility] Hospitalerum or plasma urea nitrogen measurement (mass/volume)2020-09-28 05:25:00 Test Item Value Reference Range Interpretation Comments Blood Urea Nitrogen (test code = 7- 3094-0) [facility] Hospitalerum or plasma creatinine measurement (mass/volume)2020-09-28 05:25:00 Test Item Value Reference Range Interpretation Comments Creatinine (test code = 2160-0) 0.83 0.72-1.25 [facility] Hospitalerum or plasma urea nitrogen/creatinine mass agkxw3656-06-35 05:25:00 Test Item Value Reference Range Interpretation Comments BUN/Creatinine Ratio (test code = 12-22 3097-3) [facility] CenterEstimated glomerular filtration rate (GFR) ephixfffoighw7000-40-73 05:25:00 Test Item Value Reference Range Interpretation Comments Estimat Glomerular > 60 See_Comment [Automat ed message] The Filtration Rate (test system which generated code = 594597235) this resul t transmitted reference range : 60-. The reference r duane was not used to int erpret this result as normal/abnormal . [facility] CenterGlucose vlhgllynifa8230-66-91 05:25:00 Test Item Value Reference Range Interpretation Comments Glucose Level (test code = XDJ7846) 104 74-118 [facility] Hospitalerum or plasma calcium measurement (mass/volume)2020-09-28 05:25:00 Test Item Value Reference Range Interpretation Comments Calcium Level (test code = 09670-0) 7.4 8.4-10.2 [facility] Hospitalerum or plasma total bilirubin measurement (mass/volume)2020-09-28 05:25:00 Test Item Value Reference Range Interpretation Comments Total Bilirubin (test code = 1975-2) 0.7 0.2-1.2 [facility] CenterFluoroscopic procedure less than one hour brxeqwyc7327-82-24 05:25:00 Test Item Value Reference Range Interpretation Comments Aspartate Amino Transf (AST/SGOT) (test 74 5-34 code = Aspartate Amino Transf (AST/SGOT)) [facility] Hospitalerum or plasma alanine aminotransferase measurement (enzymatic activity/volume)2020-09-28 05:25:00 Test Item Value Reference Range Interpretation Comments Alanine Aminotransferase (ALT/SGPT) 107 0-55 (test code = 1742-6) [facility] Hospitalerum or plasma protein measurement (mass/volume)2020-09-28 05:25:00 Test Item Value Reference Range Interpretation Comments Total Protein (test code = 2885-2) 4.2 6.5-8.1 [facility] Hospitalerum or plasma albumin measurement (mass/volume)2020-09-28 05:25:00 Test Item Value Reference Range Interpretation Comments Albumin (test code = 1751-7) 1.9 3.5-5.0 [facility] CenterPlasma globulin measurement (mass/volume) 2020-09-28 05:25:00 Test Item Value Reference Range Interpretation Comments Globulin (test code = 80161-6) 2.3 2.3-3.5 [facility] Hospitalerum or plasma albumin/globulin mass hvkri3898-57-56 05:25:00 Test Item Value Reference Range Interpretation Comments Albumin/Globulin Ratio (test code = 0.8 0.8-2.0 1759-0) [facility] Hospitalerum or plasma alkaline phosphatase measurement (enzymatic activity/volume)2020-09-28 05:25:00 Test Item Value Reference Range Interpretation Comments Alkaline Phosphatase (test code = 100 40-150 6768-6) [facility] CenterTroponin I measurement by highly sensitive enzyme zabtrvhjpxq4873-22-38 05:25:00 Test Item Value Reference Range Interpretation Comments Troponin I (test code = 52618-9) 0.109 0-0.300 [facility] ([facility])2020-09-26 10:41:00[facility] : 1930 Sex: [place] [address] Patient Name: JUSTICE HARDY MR #: [id number] : 1930 Age/Sex: 89/M Req #: [id number] Adm Physician: ZACHARIAH SAINI MD Ordered by: ARASH CASTORENA MD Report #: [id number] Location: MED/SURG Room/Bed: [facility] Procedure: [id number] DX/CHEST SINGLE (PORTABLE) Exam Date: 09/26/20 Exam [...] 10:48 AM Dictated By: SCHUYLER GUERRA MD 47 Transcribed By: AYDEN on 09/26/201047 COPY TO: ARASH CASTORENA MDABDOMEN 2 VIEW 2020-09-26 09:13:00 [facility] : 1930 Sex: M [facility] [address] [address] Patient Name: JUSTICE HARDY MR #: [id number] : 1930 Age/Sex: 89/M Req #: [id number] Adm Physician: ZACHARIAH SAINI MD Ordered by: JEANNINE SAINI MD Report #: [id number] Location: MED/SURG Room/Bed: [facility] Procedure: [id number] DX/ABDOMEN 2 VIEW Exam Date: 09/26/20 Exam Time: 06 REPORT STATUS: Signed Exam: KUB - 2 [...] Natriuretic Peptide (test code = 50.2 0-100 56812-7) [facility] Hospitalerum or plasma amylase measurement (enzymatic activity/volume)2020-09-26 05:17:00 Test Item Value Reference Range Interpretation Comments Amylase Level (test code = 1798-8) 98 25-125 [facility] Hospitalerum or plasma lipase measurement (enzymatic activity/volume)2020-09-26 05:17:00 Test Item Value Reference Range Interpretation Comments Lipase (test code = 3040-3) 98 8-78 [facility] CenterABDOMEN 2 [id number] 23:59:00 [facility] : 1930 Sex: [place] [address] Patient Name: JUSTICE HARDY MR #: [id number] : 1930 Age/Sex: 89/M Req #: [id number] Adm Physician: ZACHARIAH SAINI MD Ordered by: JEANNINE SAINI MD Report #: [id number] Location: MED/SURG Room/Bed: [facility] Procedure: [id number] DX/ABDOMEN 2 VIEW Exam Date: 09/24/20 Exam Time: 2329 REPORT STATUS: Signed EXAM: Abdomen Radiograph 2 View(s) INDICATION: bloody stool [id number] Y COMPARISON: 09/15/2019 FINDINGS: Prosthetic heart valve [...] levels are seen in the right hemiabdomen. [place] lucency in the upper abdomen on the upright view projecting over the T12 vertebral body , likely represents pneumoperitoneum IMPRESSION: 1. Overall appearance of postsurgical ileus with diffuse mildly dilated small bowel and distended air distended colon to the level of the rectum. Distal obstruction is not excluded. Recommend radiographic follow-up until resolution. 2. [place] lucency projecting over the T12 vertebral body may represent pneumoperitoneum as seen on recent chest CT, possibly related to recent surgery. Signed by: Patricia Wheat MD on 09/25/2020 12:48 AM Dictated By: TIESHA WHETA MD Transcribed By: AYDEN on 09/25/2047 COPY TO: JEANNINE SAINI MDSerum or plasma magnesium measurement (mass/volume)2020-09-23 16:40:00 Test Item Value Reference Range Interpretation Comments Magnesium Level (test code = 49381-6) 1.5 1.3-2.1 [facility] CenterFluoroscopic procedure less than one hour egaakekb3749-67-04 08:51:00 Test Item Value Reference Range Interpretation Comments Differential Total Cells Counted (test 100 code = Differential Total Cells Counted) [facility]/100 leukocytes 2020-09-22 08:51:00 Test Item Value Reference Range Interpretation Comments Neutrophils % (Manual) (test code = 86 40-74 26667-3) [facility] blood band neutrophils form/100 xjcoxezanj7976-77-76 08:51:00 Test Item Value Reference Range Interpretation Comments Band Neutrophils % (test code = 764-1) 0 [facility] blood lymphocytes/100 leukocytes 2020-09-22 08:51:00 Test Item Value Reference Range Interpretation Comments Lymphocytes % (Manual) (test code = 7 19-48 737-7) [facility] blood monocytes/100 leukocytes 2020-09-22 08:51:00 Test Item Value Reference Range Interpretation Comments Monocytes % (Manual) (test code = 7 3.4-9.0 744-3) [facility] CenterAutomated reticulocyte count as percentage of total rmpdhmufbgif9370-70-66 05:15:00 Test Item Value Reference Range Interpretation Comments Percent Reticulocyte Count (test code = 1.5 0.8-2.2 31938-2) [facility] Hospitalerum or plasma iron measurement (mass/volume)2020-09-21 05:15:00 Test Item Value Reference Range Interpretation Comments Iron Level (test code = 2498-4) 26 65-175 [facility] Hospitalerum or plasma iron binding capacity measurement (mass/volume)2020-09-21 05:15:00 Test Item Value Reference Range Interpretation Comments Total Iron Binding Capacity (test code 193 261-328 = 2500-7) [facility] Hospitalerum or plasma iron saturation measurement (mass fraction)2020-09-21 05:15:00 Test Item Value Reference Range Interpretation Comments Percent Iron Saturation (test code = 13 50 2502-3) [facility] or plasma transferrin measurement (mass/volume)2020-09-21 05:15:00 Test Item Value Reference Range Interpretation Comments Transferrin (test code = 3034-6) 138 174-364 [facility] Center[facility] cobalamin (vitamin B12) measurement (mass/volume)2020-09-21 05:15:00 Test Item Value Reference Range Interpretation Comments Vitamin B12 Level (test code = 52228-8) 591 213-816 [facility] Hospital[facility] or plasma folate measurement (mass/volume)2020-09-21 05:15:00 Test Item Value Reference Range Interpretation Comments Folate (test code = 2284-8) 17.8 >3.0 [facility] CenterCT CHEST [id number] 21:42:00 [facility] 1930 Sex: M [address] [place] [address] Patient Name: JUSTICE HARDY MR #: [id number] : 1930 Age/Sex: 89/M Req #: [id number] Adm Physician: ZACHARIAH SAINI MD Ordered by: AJ FLYNN DO Report #: [id number] Location: MED/SURG Room/Bed: [facility] Procedure: [id number] CT/CT CHEST W Exam Date: 09/20/20 Exam Time: 2114 REPORT STATUS: Signed EXAM: CT Chest WITH contrast 09/20/2020 9:15 PM INDICATION: PE [id number] 2114 COMPARISON: None TECHNIQUE: Chest was scanned [...] at the time of dictation. Signed by: Holli Hester MD on 09/20/2020 10:00 PM Dictated By: HOLLI HESTER MD 99 Transcribed By: AYDEN on 09/20/202199 COPY TO: AJ FLYNN DO Phosphorus [id number] 03:45:00 Test Item Value Reference Range Interpretation Comments Phosphorus Level (test code = NFY8757) 0.8 2.3-4.7 [facility] CenterCHEST SINGLE (PORTABLE)2020-09-17 15:26:00[facility] : 1930 Sex: M [place] [address] Patient Name: JUSTICE HARDY MR #: [id number] : 1930 Age/Sex: 89/M Req #: [id number] Adm Physician: ZACHARIAH SAINI MD Ordered by: ZACHARIAH SAINI MD Report #: [id number] Location: ICU Room/Bed: ICU [facility] Procedure: [id number] DX/CHEST SINGLE (PORTABLE) Exam Date: 09/17/20 Exam Time: 1450 REPORT STATUS: Signed EXAMINATION: CHEST SINGLE (PORTABLE) INDICATION: SOB, tachypnea [id number] 1450 COMPARISON: Prior x-rays including most recent [...] can have a similar appearance. Signed by: Jon Crum MD on 09/17/2020 4:11 PM Dictated By: JON CRUM MD 10 Transcribed By: AYDEN on 09/17/201610 COPY TO: ZACHARIAH SAINI MD Prothrombin time (PT) in platelet poor plasma by coagulation [id number] 10:55:00 Test Item Value Reference Range Interpretation Comments Prothrombin Time (test code = 5902-2) 16.5 11.9-14.5 [facility] CenterINR in Platelet poor plasma by Coagulation [id number] 10:55:00 Test Item Value Reference Range Interpretation Comments Prothromb Time International Ratio 1.25 (test code = 6301-6) [facility] CenterCHES XRAY LINE [id number] 20:57:00[facility] : 1930 Sex: [place] [address] Patient Name: JUSTICE HARDY MR #: [id number] : 1930 Age/Sex: 89/M Req #: [id number] Adm Physician: ZACHARIAH SAINI MD Ordered by: ZACHARIAH SAINI MD Report #: [id number] Location: ICU Room/Bed: ICU [facility] Procedure: [id number] DX/CHEST XRAY LINE PLACEMENT Exam Date: 09/16/20 [...] AYDEN on 09/16/202101 COPY TO: ZACHARIAH SAINI [facility] S[facility])2020-09-15 14:55:00 [facility] : 1930 Sex: M [address] [place] [address] Patient Name: JUSTICE HARDY MR #: [id number] : 1930 Age/Sex: 89/M Req #: [id number] Adm Physician: ZACHARIAH SAINI MD Ordered by: DHARMESH LINARES MD Report #: [id number] Lo cation: MED/SURG Room/Bed: [facility] Procedure: [id number] DX/CHEST SINGLE (PORTABLE) Exam Date: 09/15/20 Exam [...] nically Signed By: SCHUYLER GUERRA MD on 09/15/20 8047 Transcribed By: AYDEN on 09/15/20 224 COPY TO: DHARMESH LINARES MDABDOMEN ACUTE SERIES W/PA CXR 2020-09-15 10:17:00 [facility] : 1930 Sex: [place] [address] Patient Name: JUSTICE HARDY MR #: [id number] : 1930 Age/Sex: 89/M Req #: [id number] Adm Physician: ZACHARIAH SAINI MD Ordered by: DHARMESH LINARES MD Report #: [id number] Lo cation: MED/SURG Room/Bed: [facility] Procedure: [id number] DX/ABDOMEN ACUTE SERIES W/PA CXR Exam Date: [...] on 09/15/20 1020 COPY TO: DHARMESH LINARES [facility] ACUTE SERIES Rebecca/TENZIN [id number] 10:50:00 [facility] : 1930 Sex: [place] [address] Patient Name: JUSTIEC HARDY MR #: [id number] : 1930 Age/Sex: 89/M Req #: [id number] Adm Physician: ZACHARIAH SAINI MD Ordered by: DHARMESH LINARES MD Report #: [id number] Lo cation: MED/SURG Room/Bed: [facility] Procedure: [id number] DX/ABDOMEN ACUTE SERIES W/PA CXR Exam Date: 09/14/20 Exam Time: 1020 REPORT STATUS: Signed X-ray abdomen acute series with 2 views of the abdomen and a single view of the chest INDICATION: sbo [id number] 1020 Comparison: X-ray dated 09/14/2019. Discussion: Lungs [...] pneumoperitoneum. Lungs are grossly clear. Signed by: Osmin Castle MD on 09/14/2020 10:52 AM Dictated By: OSMIN CASTLE MD 1052 Transcribed By: AYDEN on 09/14/20 1052 COPY TO: DHARMESH LINARES MDSerum or plasma creatine kinase measurement (enzymatic activity/volume)2020-09-13 11:24:00 Test Item Value Reference Range Interpretation Comments Creatine Kinase (test code = 2157-6) 385 30-200 [facility] Hospitaler[facility] or plasma creatine kinase MB measurement (mass/volume)2020-09-13 11:24:00 Test Item Value Reference Range Interpretation Comments Creatine Kinase MB (test code = 2.90 0-5.0 11978-5) [facility] CenterABDOMEN 2 [id number] 09:26:00 [facility] : 1930 Sex: [place] [address] Patient Name: JUSTICE HARDY MR #: [id number] : 1930 Age/Sex: 89/M Req #: [id number] Adm Physician: ZACHARIAH SAINI MD Ordered by: SHANNAN CERVANTES MD Report #: [id number] Location: MED/SURG Room/Bed: [facility] Procedure: [id number] DX/ABDOMEN 2 VIEW Exam Date: 09/13/20 Exam [...] code = Lactic 0.7 0.5-2.0 Acid Level) [facility] CenterFluoroscopic procedure less than one hour [id number] 19:02:00 Test Item Value Reference Range Interpretation Comments Coronavirus (PCR) (test code = NOT DETECTED NOTDETECTED Coronavirus (PCR)) [facility] CenterCT ABD/PEL WO [id number] 17:30:00[facility] : 1930 Sex: [place] [address] Patient Name: JUSTICE HARDY MR #: [id number] : 1930 Age/Sex: 89/M Req #: [id number] Adm Physician: Ordered by: SHANNAN CERVANTES MD Report #: [id number] [facility] Room/Bed: Procedure: [id number] HOPD/CT ABD/PEL WO CONTRAST-HOPD Exam Date: 09/12/20 Exam Time: 1658 REPORT STATUS: Signed EXAM: CT Abdomen and Pelvis WITHOUT contrast INDICATION: abd pain, nausea, retching [id number] 1657 COMPARISON: CT abdomen and pelvis on [...] without evidence of active diverticulitis. Signed by: Jon Crum MD on 09/12/2020 5:45 PM Dictated By: JON CRUM MD 44 Transcribed By: AYDEN on 09/12/201744 COPY TO: SHANNAN CERVANTES MDCT ABDOMEN/PELVIS [id number] 15:20:00 [place] [address] Patient Name: JUSTICE HARDY MR #: [id number] : 1930 Age/Sex: 89/M Req #: [id number] Adm Physician: Mario boyd by: JEANNINE SAINI MD Report #: [id number] Location: CT Room/Bed: Procedure: [id number] CT/CT ABDOMEN/PELVISWO Exam Date: 03/02/20 Exam Time: [...]
[2020-12-30] MEDS ORDERED: cloNIDine HCL 0.1 MG TAB ONE (16:41)
[2020-12-30] MEDS ORDERED: HYDROCODONE/APAP 5/325 MG TAB ONE (16:41)
--- NOTE | 2020-12-30 17:39 | RAD REPORT ---
EXAM DESCRIPTION: RAD - Pelvis - 12/30/2020 5:18 pm CLINICAL HISTORY: fall COMPARISON: <Comparisons> FINDINGS: Mild arthritic changes in both hips. No acute fracture or dislocation seen. IMPRESSION: No acute finding evident.
--- NOTE | 2020-12-30 17:40 | RAD REPORT ---
EXAM DESCRIPTION: RAD - Lumbar Spine 3 Views - 12/30/2020 5:33 pm CLINICAL HISTORY: fall Radiculopathy COMPARISON: <Comparisons> FINDINGS: Vertebral body heights appear maintained. No compression fracture noted. Disc thinning wit h small posterior osteophyte is seen lower lumbar levels. Mild degenerative anterolisthesis L4 on 5. Vena cava filter is noted. Cholecystectomy clips. IMPRESSION: No acute abnormality detected. 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
--- NOTE | 2020-12-30 17:41 | RAD REPORT ---
EXAM DESCRIPTION: RAD - Foot Left 3 View - 12/30/2020 5:18 pm CLINICAL HISTORY: fall Fall, pain FINDINGS: Mild arthritic changes are noted. No acute fracture or subluxation. Small calcaneal spurs.
--- NOTE | 2020-12-30 17:43 | RAD REPORT ---
EXAM DESCRIPTION: RAD - Foot Right 3 View - 12/30/2020 5:18 pm CLINICAL HISTORY: PAIN COMPARISON: <Comparisons> FINDINGS: Soft tissue swelling is seen along the dorsum of the forefoot. No acute fracture or disloc ation is seen. Small calcaneal spurs.
--- NOTE | 2020-12-30 18:04 | ER ---
Nurse's Notes [facility] Name: Benito Castaneda Age: 89 yrs Sex: Male : 1930 Arrival Date: 12/30/2020 Time: 11:57 Bed 16 Private MD: Yoel Lea R Diagnosis: Strain of muscle, fascia and tendon of lower back;Contusion of right foot;Contusion of foot Presentation: 12/30 12:33 Chief complaint: Patient states: Fell outside on concrete and hit his left hip, left kg leg, left elbow at 11:30. Care prior to arrival: None. Mechanism of Injury: Fall. 12:33 Acuity: ANT 4 kg 12:33 Method Of Arrival: Ambulatory kg 12:36 Coronavirus screen: Client denies travel out of the [place] in the last 14 days. At this kg time, unable to obtain information related to travel outside the [place] Ebola Screen: Patient negative for fever greater than or equal to 101.5 degrees Fahrenheit, and additional compatible Ebola Virus Disease symptoms Patient denies exposure to infectious person. Patient denies travel to an Ebola-affected area in the 21 days before illness onset. Initial Sepsis Screen: Does the patient meet any 2 criteria? No. Patient's initial sepsis screen is negative. Does the patient have a suspected source of infection? No. Patient's initial sepsis screen is negative. Risk Assessment: Do you want to hurt yourself or someone else?. Onset of symptoms was December 30, 2020 at 11:30. Triage Assessment: 12:37 General: Appears in no apparent distress. Behavior is calm, cooperative, appropriate kg for age, quiet. Pain: Complains of pain in left arm, left leg, left hip. Historical: - Allergies: 12:37 Cardura; kg 12:37 Iodine; (fine with benadryl); kg 12:37 Lipitor; kg 16:06 SULFUR, ELEMENTAL; tr6 - Home Meds: 16:06 Flomax 0.4 mg Oral cap 1 cap once daily [Active]; finasteride 1 mg oral tab 1 tab once tr6 daily [Active]; Eliquis 2.5 mg oral tab 1 tab 2 times per day [Active]; clonidine HCl 0.1 mg Oral tab 1 tab 2 times per day [Active]; lisinopril 5 mg Oral tab 1 tab twice a day [Active]; - PMHx: 12:37 Hypertension; CVA; Myocardial infarction; Prostate Cancer; Diverticulitis; kg 16:06 dvt in right leg; aortic valve replacement; cardiac stents; tr6 - PSHx: 12:37 Coronary artery bypass graft; Valve replacement; bowel resection; kg 16:06 Appendectomy; Coronary Angioplasty; Tonsillectomy; Cholecystectomy; tr6 - Immunization history:: Adult Immunizations up to date, Client reports receiving the 2nd dose of the Covid vaccine. - Social history:: Smoking status: Patient denies any tobacco usage or history of. Screenin:39 Abuse screen: Denies threats or abuse. Denies injuries from another. Nutritional kg screening: No deficits noted. Tuberculosis screening: No symptoms or risk factors identified. Fall Risk Fall in past 12 months (25 points). Secondary diagnosis (15 points) impaired mobility, CVA, No IV (0 pts). Ambulatory Aid- Crutches/Cane/Walker (15 pts). Gait- Impaired (20 pts.). Mental Status- Oriented to own ability (0 pts). Total Brady Fall Scale indicates Low Risk Score (25-44 pts). Fall prevention measures have been instituted. Side Rails Up X 2 Placed close to Nursing Station Frequent Obs/Assesments occuring Family Present and informed to notify staff if they need to leave bedside As available Patient and Family Educated on Fall Prevention Program and strategies. Assessment: 16:10 General: Appears in no apparent distress. well groomed, Behavior is calm, cooperative, tr6 appropriate for age. Pain: Complains of pain in left hip, left elbow, left ankle. Neuro: No deficits noted. Cardiovascular: Edema is 3+ to right midcalf, right ankle, right foot and right toes pitting to right midcalf, right ankle, right foot and right toes. Respiratory: No deficits noted. GI: No deficits noted. : No deficits noted. EENT: No deficits noted. Derm: Skin is fragile, is thin, Skin is pink, warm \T\ dry. Skin temperature is warm Wound noted left elbow laceration and bruising. Vital Signs: 12:36 BP 224 / 81; Pulse 72; Resp 20; Temp 98.5(O); Pulse Ox 99% on R/A; Weight 57.65 kg (M); kg Height 5 ft. 4 in. (162.56 cm) (R); Pain 5/10; 16:06 BP 205 / 95; Pulse 79; Resp 13; Pulse Ox 99% on R/A; Pain 5/10; tr6 18:33 BP 183 / 89; Pulse 66; Resp 13; Pulse Ox 100% on R/A; Pain 2/10; tr6 12:36 Body Mass Index 21.82 (57.65 kg, 162.56 cm) kg ED Course: 11:57 Patient arrived in ED. ds1 11:57 Yoel Lea MD is Private Physician. ds1 12:35 Triage completed. kg 12:39 Patient has correct armband on for positive identification. Fall risk band placed. kg 12:40 Arm band placed on right wrist. kg 15:52 Nandini Carrera, RN is Primary Nurse. tr6 15:52 Roland Duong PA is PHCP. jmm 15:52 Domo Stewart MD is Attending Physician. jmm 16:06 Ice pack applied. tr6 16:06 No provider procedures requiring assistance completed. tr6 17:17 Pelvis XRAY In Process Unspecified. EDMS 17:18 Foot Left 3 View XRAY In Process Unspecified. EDMS 17:18 XRAY Foot RIGHT 3 View In Process Unspecified. EDMS 17:33 Lumbar Spine (3 Views) XRAY In Process Unspecified. EDMS 18:02 Yoel Lea MD is Referral Physician. m 18:34 Patient did not have IV access during this emergency room visit. tr6 Administered Medications: 16:26 Drug: cloNIDine 0.1 mg Route: PO; tr6 16:26 Drug: HYDROcodone-acetaminophen 5 mg-325 mg 1 tabs Route: PO; tr6 Outcome: 18:03 Discharge ordered by . [facility] 18:33 Discharged to home via wheelchair, with family. tr6 18:33 Condition: stable 18:33 Discharge instructions given to patient, family, Instructed on discharge instructions, follow up and referral plans. safety practices, Demonstrated understanding of instructions, follow-up care, medications. 18:34 Patient left the ED. tr6 Signatures: Dispatcher [employer] EDMS Roland Duong PA PA [facility] Diana Perez ds1 Nandini Carrera RN RN tr6 Harriet Vidales RN RN kg Corrections: (The following items were deleted from the chart) 16:45 16:10 Cardiovascular: No deficits noted. praveena mims6
--- NOTE | 2020-12-30 18:04 | EDPHYS ---
Physician Documentation [facility] Name: Benito Castaneda Age: 89 yrs Sex: Male : 1930 Arrival Date: 12/30/2020 Time: 11:57 Bed 16 Private MD: Yoel Lea R ED Physician Domo Stewart HPI: 12/30 16:10 This 89 yrs old Male presents to ER via Ambulatory with complaints of Fall jmm Injury. 16:10 Details of fall: The patient fell from an upright position, while walking. Onset: The jmm symptoms/episode began/occurred acutely. Associated injuries: The patient sustained abrasions noted to the left arm. This is an 89 year old male with a history of htn, mi that presents to the ED with complaints of lower back pain, left foot pain after tripping yesterday. Denies hitting his head, denies vomiting, abdominal pain. . Historical: - Allergies: 12:37 Cardura; kg 12:37 Iodine; (fine with benadryl); kg 12:37 Lipitor; kg 16:06 SULFUR, ELEMENTAL; tr6 - Home Meds: 16:06 Flomax 0.4 mg Oral cap 1 cap once daily [Active]; finasteride 1 mg oral tab 1 tab once tr6 daily [Active]; Eliquis 2.5 mg oral tab 1 tab 2 times per day [Active]; clonidine HCl 0.1 mg Oral tab 1 tab 2 times per day [Active]; lisinopril 5 mg Oral tab 1 tab twice a day [Active]; - PMHx: 12:37 Hypertension; CVA; Myocardial infarction; Prostate Cancer; Diverticulitis; kg 16:06 dvt in right leg; aortic valve replacement; cardiac stents; tr6 - PSHx: 12:37 Coronary artery bypass graft; Valve replacement; bowel resection; kg 16:06 Appendectomy; Coronary Angioplasty; Tonsillectomy; Cholecystectomy; tr6 - Immunization history:: Adult Immunizations up to date, Client reports receiving the 2nd dose of the Covid vaccine. - Social history:: Smoking status: Patient denies any tobacco usage or history of. ROS: 16:10 Constitutional: Negative for fever, chills, and weight loss, Cardiovascular: Negative jmm for chest pain, palpitations, and edema, Respiratory: Negative for shortness of breath, cough, wheezing, and pleuritic chest pain. 16:10 MS/extremity: Positive for injury or acute deformity. 16:10 Neuro: Negative for headache. 16:10 All other systems are negative. Exam: 16:10 Constitutional: This is a well developed, well nourished patient who is awake, alert, jmm and in no acute distress. Head/Face: atraumatic. Eyes: EOMI, no conjunctival erythema appreciated ENT: Moist Mucus Membranes Neck: Trachea midline, Supple Chest/axilla: Normal chest wall appearance and motion. Cardiovascular: Regular rate and rhythm. No edema appreciated Respiratory: Normal respirations, no respiratory distress appreciated Abdomen/GI: Non distended, soft Back: Normal ROM 16:10 Musculoskeletal/extremity: no bony tenderness and from appreciated to the UE bilaterally, subungual hematoma noted to the left 3rd toenail, full dorsalis pulse, compartments are soft, NVI. 16:10 Skin: skin tear noted to the left elbow. 16:10 Neuro: Orientation: is normal, Mentation: is normal, Memory: is normal. 16:10 Psych: Behavior/mood is pleasant, cooperative. Vital Signs: 12:36 BP 224 / 81; Pulse 72; Resp 20; Temp 98.5(O); Pulse Ox 99% on R/A; Weight 57.65 kg (M); kg Height 5 ft. 4 in. (162.56 cm) (R); Pain 5/10; 16:06 BP 205 / 95; Pulse 79; Resp 13; Pulse Ox 99% on R/A; Pain 5/10; tr6 18:33 BP 183 / 89; Pulse 66; Resp 13; Pulse Ox 100% on R/A; Pain 2/10; tr6 12:36 Body Mass Index 21.82 (57.65 kg, 162.56 cm) kg MDM: 16:10 Patient medically screened. abner 18:01 Data reviewed: vital signs, nurses notes. Counseling: I had a detailed discussion with abner the patient and/or guardian regarding: the historical points, exam findings, and any diagnostic results supporting the discharge/admit diagnosis, radiology results, the need for outpatient follow up, to return to the emergency department if symptoms worsen or persist or if there are any questions or concerns that arise at home. 12/30 16:11 Order name: Lumbar Spine (3 Views) XRAY; Complete Time: 17:46 [facility] 12/30 16:11 Order name: Pelvis XRAY; Complete Time: 17:46 [facility] 12/30 16:11 Order name: Foot Left 3 View XRAY; Complete Time: 17:46 [facility] 12/30 16:44 Order name: XRAY Foot RIGHT 3 View; Complete Time: 17:46 tr6 Administered Medications: 16:26 Drug: cloNIDine 0.1 mg Route: PO; tr6 16:26 Drug: HYDROcodone-acetaminophen 5 mg-325 mg 1 tabs Route: PO; tr6 Disposition Summary: 12/30/20 18:03 Discharge Ordered Location: Home jm Condition: Stable jmm Diagnosis - Strain of muscle, fascia and tendon of lower back jmm - Contusion of right foot jmm - Contusion of foot jmm Followup: [facility] - With: Yoel Lea MD - When: 2 - 3 days - Reason: Recheck today's complaints, Continuance of care, Re-evaluation by your physician Discharge Instructions: - Discharge Summary Sheet jm - Foot Contusion jmm - Low Back Sprain or Strain Rehab-SportsMed [facility] Forms: - Medication Reconciliation Form [facility] - Thank You Letter jm - Antibiotic Education jm - Prescription Opioid Use [facility] Addendum: 01/01/2021 13:42 Co-signature as Attending Physician, Domo Stewart MD I agree with the assessment and k dr plan of care. Signatures: Dispatcher [employer] EDMS Domo Stewart MD MD kdr Mickail, Joel, PA PA [facility] Nandini Carrera RN RN tr6 Harriet Vidales RN RN kg Corrections: (The following items were deleted from the chart) 12/30 16:49 16:44 Foot Right 2 View+RAD.RAD.BRZ ordered. EDIL EDIL
[2020-12-30 18:40] VITALS: TEMP 98.5
[2020-12-30 18:43] VITALS: BP 183/89; O2SAT 100
== END 2020-12-30 18:34 | disposition home or self-care (01) ==
LOC: ER 11:53
DX: S39.012A Strain of muscle, fascia and tendon of lower back, initial encounter (principal); S90.31XA Contusion of right foot, initial encounter; W01.0XXA Fall on same level from slipping, tripping and stumbling without subsequent striking against object, initial encounter; Y93.01 Activity, walking, marching and hiking; I10 Essential (primary) hypertension; Z79.01 Long term (current) use of anticoagulants; Z88.8 Allergy status to other drugs, medicaments and biological substances; Z95.4 Presence of other heart-valve replacement; Z91.048 Other nonmedicinal substance allergy status; Z95.818 Presence of other cardiac implants and grafts
CPT/HCPCS: 72100; 72170; 99283

== ENCOUNTER 2021-01-08 22:45 | Emergency (ER) | payer OTHER, BC ==
--- OUTSIDE RECORDS SUMMARY | 2021-01-08 22:51 | XMS REPORT | Continuity of Care Document ---
:1930 Author Organization [facility] t Address [address] [place] [address] Care Team Providers Name Role Phone NONSTAFF Primary Care Physician Unavailable Melody Whaley Attending Clinician Iggy GARCIA Attending Clinician Fifi GARCIA, O. Attending Clinician MD FIFI O. Attending Clinician Unavailable SAINI Attending Clinician Unavailable SAINI Attending Clinician Unavailable FIFI Admitting Clinician Unavailable MD FIFI O. Admitting Clinician Unavailable SAINI Admitting Clinician Unavailable Payers Payer Name Policy Type Policy Effective Date Expiration Date Sour ce Number MEDICAREMEDICARE PART [id number] 1996 Sumit Dodson AND 00:00:00 [facility] [id number] [facility] BCBSBCBS CHOICE [id number] 2015 [place] PPO/FEDERAL EMPL 00:00:00 Methodis t [id number] 2015- PresentPPO DEPT OF [id number] 2017 [place] AFFAIRSDEPT OF 00:00:00 [facility] [id number] 05/2017-PresentMilita ry [facility] [id number] [address] [facility] [employer] [place] Employees 00:00:00 [facility] Medicare A & B [id number] [address] [facility] St. L ukes 00:00:00 [facility] Problems Condition Condition Condition Status Onset Resolution Last Treating Co mments Source Name Details Category Date Date Treatment Clinician Date Generalize Generalize Disease Active H joel d weakness d weakness 12-04 Me thodi 00:00: st 00 Confusion Confusion Disease Active Ainsley ston 11-30 Methodi 00:00: st 00 Nonrheumat Nonrheumat Disease Active Overview : [place] ic aortic ic aortic -12 [facility] [place] M ethodi valve valve 00:00: g of this stenosis stenosis 00 note might be different from the original. Added automatic ally from request for surgery [id number] Small Problem Active [facility] St. bowel [facility] - obstructio Patien t n [facility]ausea Problem Active [facility]agnes Problem Active [facility] S t. emia [facility] Leukocytos Problem Active [facility] S t. is [facility] Hypertensi Problem Active [facility] S t. on [facility] History of Problem Active [facility] S t. arterioscl [facility] Abdominal Problem Active [facility] St . pain [facility] Allergies, Adverse Reactions, Alerts Allergy Allergy Status Severity Reaction(s) Onset Inactive Treating Comm ents Source Name Type Date Date Clinician Doxazosi Propensi Active Other (See Unknown H joel n ty to Comments) 11-30 reaction, Meth marcella adverse 00:00: patient st reaction 00 daughter s to confirmed drug allergy with patients cardiolog ist. Iodine Propensi Active Hives [place] And ty to 11-30 Methodi Iodide adverse 00:00: st Containi reaction 00 ng s to Products drug Atorvast Propensi Active Other (See Unknown H joel atin ty to Comments) 11-30 reaction, Meth marcella adverse 00:00: patient st reaction 00 daughter s to confirmed drug allergy with patients cardiolog ist. Iodine Allergy Active [facility] St. to 09[facility]15 [facility] 00:[facility]: Patient e 00 [facility] Doxazosi Allergy Active 2018-[address] [facility] to -17 [facility] 00:00: Patient e 00 [facility] Family History Family Member Diagnosis Comments Start Date Stop Date Source Natural mother Alzheimer's disease Jo Ann maldonado [facility] Natural sister Other [place] Me thodist Natural brother Heart disease [place] [facility] Natural father Heart disease [place] [facility] Natural father Hypertension [place] [facility] Social History Social Habit Start Date Stop Date Quantity Comments Source History of tobacco Current smoker [place] use [facility] Cigarettes smoked 2017-12-12 2017-12-12 [place] current (pack per 00:00:00 00:00:[address] day) - Reported Cigarette 2017-12-12 2017-12-12 [place] pack-years 00:00:00 00:00:00 [facility] Tobacco use and 2017-12-12 2017-12-12 Never used [place] exposure 00:00:00 00:00:00 [facility] Alcohol intake 2017-12-12 2017-12-12 Current drinker [facility] on 00:00:00 00:00:00 of alcohol [facility] (finding) Alcohol Comment 2017-12-10 2017-12-10 ocassional [place] 00:00:00 00:00:00 [facility] Sex Assigned At [birth year] [place] 00:00:00 00:00:00 [facility] Smoking Status Start Date Stop Date Source [...] Take 5 mg [place] (PROSCAR) 5 -07 by mouth Meth marcella mg tablet 15:23: daily. st 39 lisinopriL Yes 5mg Q.5D Take 5 mg [place] (PRINIVIL) 6-07 by mouth 2 Met hodi 5 mg tablet 15:23: (two) st 39 times a day. tamsulosin 2020- No .4mg Q.5D Take 1 [place] (FLOMAX) 12-04 capsule Methodi 0.4 mg 00:00: 23:59 (0.[address] capsule 00 :00 total) by mouth 2 (two) times a day for 30 days. levoFLOXaci No 500mg QD Take 1 [place] n 12-04 tablet Methodi (Levaquin) 00:00: 23:59 ([address] 500 MG 00 :00 total) by tablet mouth daily for 4 days. traMADoL 2020- acute pain 50mg Q6H Take 50 mg [place] (ULTRAM) 50 11-30 by mouth Met hodi mg tablet 20:42: 00:[address] 31 :00 (six) hours as needed for moderate pain .acute pain. aspirin No 81mg QD Take 1 [place] (ECOTRIN) 01-15 tablet (81 Met hodi 81 MG 00:00: 00:00 mg total) st enteric 00 :00 by mouth coated daily. tablet eszopiclone 2020- No 2mg QD Take 2 mg Fer (LUNESTA) 2 08-28 by mouth Met hodi MG tablet 00:00: 00:00 nightly as s t 00 :00 needed for sleep. omeprazole Yes 40mg QD Take 40 mg H [place] (PriLOSEC) 07-18 by mouth Metho di 40 MG 00:00: daily. st capsule 00 amLODIPine 2017-0 2020- No 5mg QD 5 mg every [place] (NORVASC) 5 07-07 morning. Met hodi mg tablet 00:00: 00:00 st 00 :00 Amlodipine Amlodipine Yes [address] Besylate Besylate [facility] Patient s Medical [place] Aspirin Aspirin Yes Daily [facility] (Aspir 81) (Aspir 81) Tal es - 81 Mg 81 Mg Patient TABLET.DR SHIPLEY. [facility] Hydrochloro Hydrochloro Yes 12.[address] thiazide thiazide [facility] - (Hydrochlor (Hydrochlor P atient othiazide*) othiazide*) s 25 Mg 25 Mg Medical TABLET TABLET Center Tamsulosin Tamsulosin Yes .[address] Hcl Hcl [facility] - (Flomax*) (Flomax*) Patie nt 0.4 Mg CAP 0.4 Mg CAP [facility] Vital Signs Vital Name Observation Time Observation Value Comments Source Heart rate 2020-12-04 12:45:42 79 /min [facility] Body temperature 2020-12-04 12:45:42 36.44 [facility] Respiratory rate 2020-12-04 12:45:42 18 /min [facility] Oxygen saturation in 2020-12-04 12:45:42 96 /min [facility] Arterial blood by Pulse oximetry Systolic blood 2020-12-04 12:10:40 133 mm[Hg] Rosyto n [facility] pressure Diastolic blood 2020-12-04 12:10:40 67 mm[Hg] [place] on [facility] pressure Body weight 2020-12-04 06:17:00 55.3 kg [facility] BMI 2020-12-04 06:17:00 20.93 kg/m2 [facility] BP Diastolic 2020-09-28 12:46:00 76 mm[Hg] [facility] BP Systolic 2020-09-28 12:46:00 149 mm[Hg] [facility] [place] Oxygen saturation by 2020-09-28 12:46:00 99 /min [facility] - Pulse oximetry Patients [facility] Heart Rate 2020-09-28 12:46:00 85 /min [facility] [place] Respiratory rate 2020-09-28 12:46:00 22 /min [facility] Body Temperature 2020-09-28 12:46:00 97.7 [degF] [facility] Heart Rate 2020-09-28 08:42:00 81 /min [facility] Respiratory rate 2020-09-28 08:42:00 24 /min [facility] Body Temperature 2020-09-28 08:42:00 97.4 [degF] [facility] BP Diastolic 2020-09-28 08:42:00 60 mm[Hg] [facility] BP Systolic 2020-09-28 08:42:00 141 mm[Hg] [facility] Oxygen saturation by 2020-09-28 08:42:00 96 /min [facility] - Pulse oximetry Patients [facility] BP Diastolic 2020-09-28 08:36:00 60 mm[Hg] [facility] BP Systolic 2020-09-28 08:36:00 141 mm[Hg] [facility] Oxygen saturation by 2020-09-28 08:36:00 96 /min [facility] - Pulse oximetry Patients [facility] Heart Rate 2020-09-28 08:36:00 81 /min [facility] Respiratory rate 2020-09-28 08:36:00 24 /min [facility] Body Temperature 2020-09-28 08:36:00 97.4 [degF] [facility] Oxygen saturation by 2020-09-28 08:17:00 96 /min [facility] - Pulse oximetry Patients [facility] Heart Rate 2020-09-28 08:17:00 80 /min [facility] Respiratory rate 2020-09-28 08:17:00 20 /min [facility] Oxygen saturation by 2020-09-28 07:49:00 96 /min [facility] - Pulse oximetry Patients [facility] Heart Rate 2020-09-28 07:49:00 80 /min [facility] [...] [facility] Pulse [facility]ximetry Patients [facility] Heart Rate 2020-09-28 04:00:00 85 /min [facility] Respiratory rate 2020-09-28 04:00:00 20 /min [facility] Body Temperature 2020-09-28 04:00:00 97.7 [degF] [facility] Oxygen saturation by 2020-09-28 02:48:00 98 /min [facility] - Pulse oximetry Patients [facility] Heart Rate 2020-09-28 02:48:00 85 /min [facility] Respiratory rate 2020-09-28 02:48:00 18 /min [facility] Oxygen saturation by 2020-09-28 02:40:00 95 /min [facility] Pulse oximetry Patients [facility] Heart Rate 2020-09-28 02:40:00 87 /min [facility] Respiratory rate 2020-09-28 02:40:00 20 /min [facility] BP Diastolic 2020-09-28 00:00:00 59 mm[Hg] [facility] BP Systolic 2020-09-28 00:00:00 135 mm[Hg] [facility] Oxygen saturation by 2020-09-28 00:00:00 94 /min [facility] Pulse oximetry Patients [facility] Heart Rate 2020-09-28 00:00:00 92 /min [facility] Pulse [facility]xim[facility] Patients [facility] Heart Rate 2020-09-27 20:00:00 99 /min [facility] Respiratory rate 2020-09-27 20:00:00 18 /min [facility] Body Temperature 2020-09-27 20:00:00 98.1 [degF] [facility] Oxygen saturation by 2020-09-27 19:53:00 100 /min [facility] Pulse oximetry Patients [facility] Heart Rate 2020-09-27 19:53:00 96 /min [facility] Respiratory rate 2020-09-27 19:53:00 18 /min [facility] Oxygen saturation by 2020-09-27 19:45:00 97 /min [facility] Pulse oximetry Patients [facility] Heart Rate 2020-09-27 19:45:00 99 /min [facility] Respiratory rate 2020-09-27 19:45:00 20 /min [facility] BP Diastolic 2020-09-27 15:21:00 66 mm[Hg] [facility] BP Systolic 2020-09-27 15:21:00 159 mm[Hg] [facility] Oxygen saturation by 2020-09-27 15:21:00 95 /min [facility] - Pulse oximetry Patients [facility] Heart Rate 2020-09-27 15:21:00 103 /min [facility] Respiratory rate 2020-09-27 15:21:00 20 /min [facility] Body Temperature 2020-09-27 15:21:00 98.5 [degF] [facility] Oxygen saturation by 2020-09-27 14:45:00 99 /min [facility] Pulse oximetry Patients [facility] Heart Rate 2020-09-27 14:45:00 103 /min [facility] Respiratory rate 2020-09-27 14:45:00 20 /min [facility] Oxygen saturation by 2020-09-27 14:30:00 95 /min [facility] Pulse oximetry Patients [facility] Heart Rate 2020-09-27 14:30:00 103 /min [facility] [...] [facility] Pulse [facility]ximetry Patients [facility] Heart Rate 2020-09-27 11:13:00 88 /min [facility] Pulse [facility]xim[facility] Patients [facility] Heart Rate 2020-09-27 08:15:00 105 /min [facility] Pulse [facility]xim[facility] Patients [facility] Heart Rate 2020-09-27 07:58:00 105 /min [facility] Respiratory rate 2020-09-27 07:58:00 16 /min [facility] Body Temperature 2020-09-27 07:58:00 97.6 [degF] [facility] Oxygen saturation by 2020-09-27 07:15:00 99 /min [facility] Pulse oximetry Patients [facility] Heart Rate 2020-09-27 07:15:00 105 /min [facility] Respiratory rate 2020-09-27 07:15:00 16 /min [facility] Oxygen saturation by 2020-09-27 07:00:00 95 /min [facility] Pulse oximetry Patients [facility] Heart Rate 2020-09-27 07:00:00 105 /min [facility] Respiratory rate 2020-09-27 07:00:00 16 /min [facility] Oxygen saturation by 2020-09-27 00:05:00 100 /min [facility] Pulse oximetry Patients [facility] Heart Rate 2020-09-27 00:05:00 91 /min [facility] Respiratory rate 2020-09-27 00:05:00 20 /min [facility] Oxygen saturation by 2020-09-26 23:50:00 98 /min [facility] Pulse oximetry Patients [facility] Heart Rate 2020-09-26 23:50:00 89 /min [facility] Res[facility] rate 2020-09-26 23:50:00 20 /min [facility] BP Diastolic 2020-09-26 20:36:00 69 mm[Hg] [facility] BP Systolic 2020-09-26 20:36:00 114 mm[Hg] [facility] Oxygen saturation by 2020-09-26 20:36:00 98 /min [facility] Pulse oximetry Patients [facility] Heart Rate 2020-09-26 20:36:00 84 /min [facility] Respiratory rate 2020-09-26 20:36:00 18 /min [facility] Body Temperature 2020-09-26 20:36:00 98.1 [degF] [facility] BP Diastolic 2020-09-26 20:00:00 80 mm[Hg] [facility] BP Systolic 2020-09-26 20:00:00 142 mm[Hg] [facility] Oxygen saturation by 2020-09-26 20:00:00 100 /min [facility] Pulse oximetry Patients [facility] Heart Rate 2020-09-26 20:00:00 89 /min [facility] Respiratory rate 2020-09-26 20:00:00 21 /min [facility] Body Temperature 2020-09-26 20:00:00 98.3 [degF] [facility] BP Diastolic 2020-09-26 16:11:00 75 mm[Hg] [facility] BP Systolic 2020-09-26 16:11:00 151 mm[Hg] [facility] Oxygen saturation by 2020-09-26 16:11:00 100 /min [facility] - Pulse oximetry Patients [facility] Heart Rate 2020-09-26 16:11:00 89 /min [facility] Respiratory rate 2020-09-26 16:11:00 21 /min [facility] Body Temperature 2020-09-26 16:11:00 98.3 [degF] [facility] Oxygen saturation by 2020-09-26 13:10:00 96 /min [facility] Pulse oximetry Patients [facility] Heart Rate 2020-09-26 13:10:00 94 /min [facility] Respiratory rate 2020-09-26 13:10:00 16 /min [facility] Oxygen saturation by 2020-09-26 12:55:00 96 /min [facility] Pulse oximetry Patients [facility] Heart Rate 2020-09-26 12:55:00 94 /min [facility] Respiratory rate 2020-09-26 12:55:00 16 /min [facility] Oxygen saturation by 2020-09-26 12:35:00 96 /min [facility] Pulse oximetry Patients [facility] Heart Rate 2020-09-26 12:35:00 94 /min [facility] P[facility] Patients [facility] Heart Rate 2020-09-26 12:12:00 100 /min [facility] P[facility] Patients [facility] Heart Rate 2020-09-26 09:22:00 99 /min [facility] Respiratory rate 2020-09-26 09:22:00 26 /min [facility] Body Temperature 2020-09-26 09:22:00 97.4 [degF] [facility] Oxygen saturation by 2020-09-26 08:50:00 98 /min [facility] Pulse oximetry Patients [facility] Heart Rate 2020-09-26 08:50:00 99 /min [facility] Respiratory rate 2020-09-26 08:50:00 26 /min [facility] Oxygen saturation by 2020-09-26 08:35:00 98 /min [facility] Pulse oximetry Patients [facility] Heart Rate 2020-09-26 08:35:00 99 /min [facility] Respiratory rate 2020-09-26 08:35:00 26 /min [facility] BP Diastolic 2020-09-26 07:58:00 59 mm[Hg] [facility] BP Systolic 2020-09-26 07:58:00 113 mm[Hg] [facility] Oxygen saturation by 2020-09-26 07:58:00 98 /min [facility] - Pulse oximetry Patients [facility] Heart Rate 2020-09-26 07:58:00 99 /min [facility] Pulse [facility] Patients [facility] Heart Rate 2020-09-26 04:00:00 99 /min [facility] Respiratory rate 2020-09-26 04:00:00 20 /min [facility] Body Temperature 2020-09-26 04:00:00 97.0 [degF] [facility] Oxygen saturation by 2020-09-25 20:08:00 100 /min [facility] Pulse oximetry Patients [facility] Heart Rate 2020-09-25 20:08:00 97 /min [facility] Respiratory rate 2020-09-25 20:08:00 20 /min [facility] BP Diastolic 2020-09-25 20:00:00 61 mm[Hg] [facility] BP Systolic 2020-09-25 20:00:00 124 mm[Hg] [facility] Oxygen saturation by 2020-09-25 20:00:00 97 /min [facility] Pulse oximetry Patients [facility] Heart Rate 2020-09-25 20:00:00 99 /min [facility] Respiratory rate 2020-09-25 20:00:00 18 /min [facility] Body Temperature 2020-09-25 20:00:00 97.9 [degF] [facility] Oxygen saturation by 2020-09-25 19:53:00 97 /min [facility] Pulse oximetry Patients [facility] Heart Rate 2020-09-25 19:53:00 94 /min [facility] Respiratory rate 2020-09-25 19:53:00 20 /min [facility] BP Diastolic 2020-09-25 15:48:00 61 mm[Hg] [facility] BP Systolic 2020-09-25 15:48:00 124 mm[Hg] [facility] Oxygen saturation by 2020-09-25 15:48:00 97 /min [facility] Pulse [facility]ximetry Patients [facility] Heart Rate 2020-09-25 15:48:00 99 /min [facility] Respiratory rate 2020-09-25 15:48:00 18 /min [facility] Body Temperature 2020-09-25 15:48:00 98.0 [degF] [facility] Oxygen saturation by 2020-09-25 12:40:00 97 /min [facility] Pulse oximetry Patients [facility] Heart Rate 2020-09-25 12:40:00 109 /min [facility] Respiratory rate 2020-09-25 12:40:00 16 /min [facility] Oxygen saturation by 2020-09-25 12:39:00 97 /min [facility] Pulse oximetry Patients [facility] Heart Rate 2020-09-25 12:39:00 98 /min [facility] Respiratory rate 2020-09-25 12:39:00 22 /min [facility] BP Diastolic 2020-09-25 11:14:00 72 mm[Hg] [facility] BP Systolic 2020-09-25 11:14:00 98 mm[Hg] [facility] Oxygen saturation by 2020-09-25 11:14:00 100 /min [facility] Pulse oximetry Patients [facility] Heart Rate 2020-09-25 11:14:00 98 /min [facility] Patients [facility] Heart Rate 2020-09-25 09:18:00 96 /min [facility] Respiratory rate 2020-09-25 09:18:00 18 /min [facility] Body Temperature 2020-09-25 09:18:00 97.9 [degF] [facility] Oxygen saturation by 2020-09-25 08:35:00 98 /min [facility] Pulse oximetry Patients [facility] Heart Rate 2020-09-25 08:35:00 96 /min [facility] Respiratory rate 2020-09-25 08:35:00 18 /min [facility] Oxygen saturation by 2020-09-25 08:20:00 98 /min [facility] Pulse oximetry Patients [facility] Heart Rate 2020-09-25 08:20:00 96 /min [facility] Respiratory rate 2020-09-25 08:20:00 18 /min [facility] BP Diastolic 2020-09-25 07:33:00 62 mm[Hg] [facility] BP Systolic 2020-09-25 07:33:00 135 mm[Hg] [facility] Oxygen saturation by 2020-09-25 07:33:00 98 /min [facility] Pulse oximetry Patients [facility] Heart Rate 2020-09-25 07:33:00 96 /min [facility] Respiratory rate 2020-09-25 07:33:00 18 /min [facility] Body Temperature 2020-09-25 07:33:00 97.9 [degF] [facility] BP Diastolic 2020-09-25 04:00:00 69 mm[Hg] [facility] BP Systolic 2020-09-25 04:00:00 121 mm[Hg] [facility] Oxygen saturation by 2020-09-25 04:00:00 97 /min [facility] Pulse [facility] Patients [facility] Heart Rate 2020-09-25 04:00:00 83 /min [facility] Respiratory rate 2020-09-25 04:00:00 18 /min [facility] Body Temperature 2020-09-25 04:00:00 97.7 [degF] [facility] BP Diastolic 2020-09-24 23:59:00 94 mm[Hg] [facility] BP Systolic 2020-09-24 23:59:00 151 mm[Hg] [facility] Oxygen saturation by 2020-09-24 23:59:00 99 /min [facility] Patients [facility] Heart Rate 2020-09-24 23:59:00 97 /min [facility] Patients [facility] Heart Rate 2020-09-24 20:32:00 112 /min [facility] Respiratory rate 2020-09-24 20:32:00 18 /min [facility] Body Temperature 2020-09-24 20:32:00 97.7 [degF] [facility] Oxygen saturation by 2020-09-24 20:25:00 98 /min [facility] Patients [facility] Heart Rate 2020-09-24 20:25:00 100 /min [facility] Respiratory rate 2020-09-24 20:25:00 20 /min [facility] Oxygen saturation by 2020-09-24 20:10:00 95 /min [facility] Patients [facility] Heart Rate 2020-09-24 20:10:00 102 /min [facility] Respiratory rate 2020-09-24 20:10:00 20 /min [facility] BP Diastolic 2020-09-24 20:00:00 92 mm[Hg] [facility] BP Systolic 2020-09-24 20:00:00 165 mm[Hg] [facility] Oxygen saturation by 2020-09-24 20:00:00 94 /min [facility] Patients [facility] Heart Rate 2020-09-24 20:00:00 112 /min [facility] Heart Rate 2020-09-24 17:13:00 94 /min [facility] Respiratory rate 2020-09-24 17:13:00 16 /min [facility] Body Temperature 2020-09-24 17:13:00 97.7 [degF] [facility] Oxygen saturation by 2020-09-24 14:00:00 100 /min [facility] Patients [facility] Heart Rate 2020-09-24 14:00:00 94 /min [facility] Respiratory rate 2020-09-24 14:00:00 16 /min [facility] Oxygen saturation by 2020-09-24 13:45:00 100 /min [facility] Patients [facility] Heart Rate 2020-09-24 13:45:00 94 /min [facility] Patients [facility] Heart Rate 2020-09-24 08:41:00 94 /min [facility] Heart Rate 2020-09-24 08:30:00 94 /min [facility] Respiratory rate 2020-09-24 08:30:00 18 /min [facility] Body Temperature 2020-09-24 08:30:00 98.6 [degF] [facility] Oxygen saturation by 2020-09-24 06:50:00 100 /min [facility] Patients [facility] Heart Rate 2020-09-24 06:50:00 91 /min [facility] Respiratory rate 2020-09-24 06:50:00 16 /min [facility] Oxygen saturation by 2020-09-24 06:35:00 97 /min [facility] Patients [facility] Heart Rate 2020-09-24 06:35:00 87 /min [facility] Heart Rate 2020-09-24 04:00:00 88 /min [facility] Respiratory rate 2020-09-24 04:00:00 18 /min [facility] Body Temperature 2020-09-24 04:00:00 97.7 [degF] [facility] Oxygen saturation by 2020-09-24 01:18:00 97 /min [facility] Patients [facility] Heart Rate 2020-09-24 01:18:00 91 /min [facility] Respiratory rate 2020-09-24 01:18:00 18 /min [facility] Oxygen saturation by 2020-09-24 01:10:00 94 /min [facility] Patients [facility] Heart Rate 2020-09-24 01:10:00 89 /min [facility] Respiratory rate 2020-09-24 01:10:00 16 /min [facility] BP Diastolic 2020-09-24 00:00:00 60 mm[Hg] [facility] BP Systolic 2020-09-24 00:00:00 154 mm[Hg] [facility] Oxygen saturation by 2020-09-24 00:00:00 94 /min [facility] Patients [facility] Heart Rate 2020-09-24 00:00:00 92 /min [facility] Respiratory rate 2020-09-24 00:00:00 18 /min [facility] Body Temperature 2020-09-24 00:00:00 98.5 [degF] [facility] BP Diastolic 2020-09-23 21:42:00 83 mm[Hg] [facility] BP Systolic 2020-09-23 21:42:00 146 mm[Hg] [facility] Oxygen saturation by 2020-09-23 21:42:00 94 /min [facility] Patients [facility] Heart Rate 2020-09-23 21:42:00 105 /min [facility] Heart Rate 2020-09-23 20:00:00 105 /min [facility] Respiratory rate 2020-09-23 20:00:00 18 /min [facility] Body Temperature 2020-09-23 20:00:00 97.9 [degF] [facility] Oxygen saturation by 2020-09-23 19:18:00 99 /min [facility] Patients [facility] Heart Rate 2020-09-23 19:18:00 101 /min [facility] Respiratory rate 2020-09-23 19:18:00 22 /min [facility] Oxygen saturation by 2020-09-23 19:10:00 94 /min [facility] Patients [facility] Heart Rate 2020-09-23 19:10:00 98 /min [facility] Heart Rate 2020-09-23 16:11:00 96 /min [facility] Respiratory rate 2020-09-23 16:11:00 18 /min [facility] Body Temperature 2020-09-23 16:11:00 97.8 [degF] [facility] Oxygen saturation by 2020-09-23 14:15:00 98 /min [facility] Patients [facility] Heart Rate 2020-09-23 14:15:00 83 /min [facility] Respiratory rate 2020-09-23 14:15:00 20 /min [facility] Oxygen saturation by 2020-09-23 14:00:00 98 /min [facility] Patients [facility] Heart Rate 2020-09-23 14:00:00 83 /min [facility] Respiratory rate 2020-09-23 14:00:00 20 /min [facility] BP Diastolic 2020-09-23 08:50:00 63 mm[Hg] [facility] BP Systolic 2020-09-23 08:50:00 142 mm[Hg] [facility] Oxygen saturation by 2020-09-23 08:50:00 98 /min [facility] Patients [facility] Heart Rate 2020-09-23 08:50:00 94 /min [facility] Respiratory rate 2020-09-23 08:50:00 18 /min [facility] Body Temperature 2020-09-23 08:50:00 97.3 [degF] [facility] BP Diastolic 2020-09-23 08:39:00 63 mm[Hg] [facility] BP Systolic 2020-09-23 08:39:00 142 mm[Hg] [facility] Oxygen saturation by 2020-09-23 08:39:00 100 /min [facility] Patients [facility] Heart Rate 2020-09-23 08:39:00 94 /min [facility] Respiratory rate 2020-09-23 08:39:00 18 /min [facility] Body Temperature 2020-09-23 08:39:00 97.4 [degF] [facility] Oxygen saturation by 2020-09-23 06:45:00 100 /min [facility] Patients [facility] Heart Rate 2020-09-23 06:45:00 94 /min [facility] Respiratory rate 2020-09-23 06:45:00 18 /min [facility] Oxygen saturation by 2020-09-23 06:30:00 100 /min [facility] Patients [facility] Heart Rate 2020-09-23 06:30:00 94 /min [facility] Respiratory rate 2020-09-23 06:30:00 18 /min [facility] BP Diastolic 2020-09-23 04:30:00 75 mm[Hg] [facility] BP Systolic 2020-09-23 04:30:00 168 mm[Hg] [facility] Oxygen saturation by 2020-09-23 04:30:00 98 /min [facility] Patients [facility] Heart Rate 2020-09-23 04:30:00 87 /min [facility] Respiratory rate 2020-09-23 04:30:00 18 /min [facility] Body Temperature 2020-09-23 04:30:00 97.6 [degF] [facility] Oxygen saturation by 2020-09-23 00:40:00 94 /min [facility] Patients [facility] Heart Rate 2020-09-23 00:40:00 81 /min [facility] Respiratory rate 2020-09-23 00:40:00 20 /min [facility] BP Diastolic 2020-09-23 00:23:00 76 mm[Hg] [facility] BP Systolic 2020-09-23 00:23:00 141 mm[Hg] [facility] Oxygen saturation by 2020-09-23 00:23:00 94 /min [facility] Patients [facility] Heart Rate 2020-09-23 00:23:00 81 /min [facility] Respiratory rate 2020-09-23 00:23:00 18 /min [facility] Body Temperature 2020-09-23 00:23:00 98.1 [degF] [facility] BP Diastolic 2020-09-22 20:04:00 81 mm[Hg] [facility] BP Systolic 2020-09-22 20:04:00 158 mm[Hg] [facility] Oxygen saturation by 2020-09-22 20:04:00 95 /min [facility]ulse [facility] Patients [facility] Heart Rate 2020-09-22 20:04:00 95 /min [facility] Respiratory rate 2020-09-22 20:04:00 18 /min [facility] Body Temperature 2020-09-22 20:04:00 97.6 [degF] [facility] Oxygen saturation by 2020-09-22 20:02:00 98 /min [facility] Patients [facility] Heart Rate 2020-09-22 20:02:00 94 /min [facility] Respiratory rate 2020-09-22 20:02:00 20 /min [facility] Oxygen saturation by 2020-09-22 19:47:00 96 /min [facility] Patients [facility] Heart Rate 2020-09-22 19:47:00 95 /min [facility] Respiratory rate 2020-09-22 19:47:00 20 /min [facility] Oxygen saturation by 2020-09-22 15:48:00 100 /min [facility] Patients [facility] Heart Rate 2020-09-22 15:48:00 89 /min [facility] [...] [facility] Patients [facility] Heart Rate 2020-09-22 15:40:00 90 /min [facility] Respiratory rate 2020-09-22 15:40:00 22 /min [facility] Body Temperature 2020-09-22 15:40:00 97.6 [degF] [facility] Oxygen saturation by 2020-09-22 15:33:00 96 /min [facility] Patients [facility] Heart Rate 2020-09-22 15:33:00 88 /min [facility] Respiratory rate 2020-09-22 15:33:00 24 /min [facility] BP Diastolic 2020-09-22 11:44:00 65 mm[Hg] [facility] BP Systolic 2020-09-22 11:44:00 165 mm[Hg] [facility] Oxygen saturation by 2020-09-22 11:44:00 100 /min [facility] Patients [facility] Heart Rate 2020-09-22 11:44:00 81 /min [facility] Respiratory rate 2020-09-22 11:44:00 23 /min [facility] Body Temperature 2020-09-22 11:44:00 97.9 [degF] [facility] Oxygen saturation by 2020-09-22 11:25:00 100 /min [facility] Patients [facility] Heart Rate 2020-09-22 11:25:00 88 /min [facility] Oxygen saturation by 2020-09-22 11:10:00 96 /min [facility] Patients [facility] Heart Rate 2020-09-22 11:10:00 84 /min [facility] Respiratory rate 2020-09-22 11:10:00 24 /min [facility] BP Diastolic 2020-09-22 09:27:00 61 mm[Hg] [facility] BP Systolic 2020-09-22 09:27:00 165 mm[Hg] [facility] Oxygen saturation by 2020-09-22 09:27:00 94 /min [facility] Patients [facility] Heart Rate 2020-09-22 09:27:00 84 /min [facility] Heart Rate 2020-09-22 08:00:00 84 /min [facility] [...] [facility] Heart Rate 2020-09-22 03:50:00 93 /min [facility] Respiratory rate 2020-09-22 03:50:00 24 /min [facility] Body Temperature 2020-09-22 03:50:00 97.9 [degF] [facility] Oxygen saturation by 2020-09-22 02:17:00 100 /min [facility] Patients [facility] Heart Rate 2020-09-22 02:17:00 92 /min [facility] Respiratory rate 2020-09-22 02:17:00 20 /min [facility] Oxygen saturation by 2020-09-22 02:02:00 100 /min [facility] Patients [facility] Heart Rate 2020-09-22 02:02:00 88 /min [facility] Respiratory rate 2020-09-22 02:02:00 20 /min [facility] BP Diastolic 2020-09-22 00:02:00 64 mm[Hg] [facility] BP Systolic 2020-09-22 00:02:00 139 mm[Hg] [facility] Oxygen saturation by 2020-09-22 00:02:00 100 /min [facility] Patients [facility] Heart Rate 2020-09-22 00:02:00 72 /min [facility] Heart Rate 2020-09-21 20:07:00 84 /min [facility] Respiratory rate 2020-09-21 20:07:00 24 /min [facility] Body Temperature 2020-09-21 20:07:00 98.6 [degF] [facility] Oxygen saturation by 2020-09-21 20:02:00 97 /min [facility] Patients [facility] Heart Rate 2020-09-21 20:02:00 80 /min [facility] Heart Rate 2020-09-21 20:00:00 78 /min [facility] Respiratory rate 2020-09-21 20:00:00 18 /min [facility] Body Temperature 2020-09-21 20:00:00 98.4 [degF] [facility] BP Diastolic 2020-09-21 16:00:00 96 mm[Hg] [facility] BP Systolic 2020-09-21 16:00:00 135 mm[Hg] [facility] Oxygen saturation by 2020-09-21 16:00:00 95 /min [facility] Patients [facility] Heart Rate 2020-09-21 16:00:00 78 /min [facility] Heart Rate 2020-09-21 13:02:00 70 /min [facility] Respiratory rate 2020-09-21 13:02:00 18 /min [facility] Body Temperature 2020-09-21 13:02:00 98.3 [degF] [facility] Oxygen saturation by 2020-09-21 10:15:00 96 /min [facility] Patients [facility] Heart Rate 2020-09-21 10:15:00 72 /min [facility] Respiratory rate 2020-09-21 10:15:00 18 /min [facility] BP Diastolic 2020-09-21 09:08:00 63 mm[Hg] [facility] BP Systolic 2020-09-21 09:08:00 150 mm[Hg] [facility] Oxygen saturation by 2020-09-21 09:08:00 95 /min [facility] Patients [facility] Heart Rate 2020-09-21 09:08:00 63 /min [facility] Respiratory rate 2020-09-21 09:08:00 17 [...] [facility] Patients [facility] Heart Rate 2020-09-21 08:58:00 63 /min [facility] Respiratory rate 2020-09-21 08:58:00 17 /min [facility] Body Temperature 2020-09-21 08:58:00 98.0 [degF] [facility] BP Diastolic 2020-09-21 07:38:00 63 mm[Hg] [facility] BP Systolic 2020-09-21 07:38:00 150 mm[Hg] [facility] Oxygen saturation by 2020-09-21 07:38:00 95 /min [facility] Patients [facility] Heart Rate 2020-09-21 07:38:00 63 /min [facility] Heart Rate 2020-09-21 04:00:00 73 /min [facility] Heart Rate 2020-09-21 00:00:00 76 /min [facility] Respiratory rate 2020-09-21 00:00:00 21 /min [facility] Body Temperature 2020-09-21 00:00:00 98.2 [degF] [facility] BP Diastolic 2020-09-20 20:00:00 69 mm[Hg] [facility] BP Systolic 2020-09-20 20:00:00 155 mm[Hg] [facility] Oxygen saturation by 2020-09-20 20:00:00 94 /min [facility] Patients [facility] Heart Rate 2020-09-20 20:00:00 72 /min [facility] Respiratory rate 2020-09-20 20:00:00 20 /min [facility] Body Temperature 2020-09-20 20:00:00 98.1 [degF] [facility] Oxygen saturation by 2020-09-20 19:53:00 99 /min [facility] Patients [facility] Heart Rate 2020-09-20 19:53:00 72 /min [facility] Respiratory rate 2020-09-20 19:53:00 16 /min [facility] Oxygen saturation by 2020-09-20 19:45:00 96 /min [facility] Patients [facility] Heart Rate 2020-09-20 19:45:00 75 /min [facility] Respiratory rate 2020-09-20 19:45:00 18 /min [facility] BP Diastolic 2020-09-20 16:36:00 69 mm[Hg] [facility] BP Systolic 2020-09-20 16:36:00 155 mm[Hg] [facility] Oxygen saturation by 2020-09-20 16:36:00 97 /min [facility] Patients [facility] Heart Rate 2020-09-20 16:36:00 73 /min [facility] Respiratory rate 2020-09-20 16:36:00 21 /min [facility] Body Temperature 2020-09-20 16:36:00 98.3 [degF] [facility] BP Diastolic 2020-09-20 15:47:00 60 mm[Hg] [facility] BP Systolic 2020-09-20 15:47:00 133 mm[Hg] [facility] Oxygen saturation by 2020-09-20 15:47:00 94 /min [facility] Patients [facility] Heart Rate 2020-09-20 15:47:00 71 /min [facility] Respiratory rate 2020-09-20 15:47:00 19 /min [facility] Body Temperature 2020-09-20 15:47:00 98.1 [degF] [facility] BP Diastolic 2020-09-20 11:55:00 60 mm[Hg] [facility] BP Systolic 2020-09-20 11:55:00 133 mm[Hg] [facility] Oxygen saturation by 2020-09-20 11:55:00 94 /min [facility] Patients [facility] Heart Rate 2020-09-20 11:55:00 71 /min [facility] Heart Rate 2020-09-20 09:06:00 86 /min [facility] Respiratory rate 2020-09-20 09:06:00 19 /min [facility] Body Temperature 2020-09-20 09:06:00 98.4 [degF] [facility] BP Diastolic 2020-09-20 08:58:00 66 mm[Hg] [facility] BP Systolic 2020-09-20 08:58:00 145 mm[Hg] [facility] Oxygen saturation by 2020-09-20 08:58:00 99 /min [facility] Patients [facility] Heart Rate 2020-09-20 08:58:00 86 /min [facility] Respiratory rate 2020-09-20 08:58:00 19 /min [...] [facility] Patients [facility] Heart Rate 2020-09-20 08:55:00 86 /min [facility] [...] 145 mm[Hg] [facility] Oxygen saturation by 2020-09-20 07:38:00 99 /min [facility] Patients [facility] Heart Rate 2020-09-20 07:38:00 71 /min [facility] Respiratory rate 2020-09-20 07:38:00 19 /min [facility] Body Temperature 2020-09-20 07:38:00 98.4 [degF] [facility] Oxygen saturation by 2020-09-20 07:05:00 95 /min [facility] Patients [facility] Heart Rate 2020-09-20 07:05:00 82 /min [facility] Respiratory rate 2020-09-20 07:05:00 18 /min [facility] [facility] BP Diastolic 2020-09-20 04:00:00 61 mm[Hg] [facility] BP Systolic 2020-09-20 04:00:00 145 mm[Hg] [facility] Oxygen saturation by 2020-09-20 04:00:00 96 /min [facility] Patients [facility] Heart Rate 2020-09-20 04:00:00 66 /min [facility] Respiratory rate 2020-09-20 04:00:00 18 [...] [facility] Heart Rate 2020-09-20 00:00:00 66 /min [facility] Respiratory rate 2020-09-20 00:00:00 20 /min [facility] Body Temperature 2020-09-20 00:00:00 97.9 [degF] [facility] BP Diastolic 2020-09-19 21:46:00 70 mm[Hg] [facility] BP Systolic 2020-09-19 21:46:00 138 mm[Hg] [facility] Oxygen saturation by 2020-09-19 21:46:00 94 /min [facility] Heart Rate 2020-09-19 21:46:00 80 /min [facility] Respiratory rate 2020-09-19 21:46:00 18 /min [facility] Body Temperature 2020-09-19 21:46:00 97.4 [degF] [facility] Oxygen saturation by 2020-09-19 20:09:00 95 /min [facility] Heart Rate 2020-09-19 20:09:00 82 /min [facility] Heart Rate 2020-09-19 20:00:00 80 /min [facility] Heart Rate 2020-09-19 15:41:00 80 /min [facility] Respiratory rate 2020-09-19 15:41:00 20 /min [facility] Body Temperature 2020-09-19 15:41:00 97.6 [degF] [facility] BP Diastolic 2020-09-19 12:14:00 80 mm[Hg] [facility] BP Systolic 2020-09-19 12:14:00 177 mm[Hg] [facility] Oxygen saturation by 2020-09-19 12:14:00 96 /min [facility] Heart Rate 2020-09-19 12:14:00 84 /min [facility] Heart Rate 2020-09-19 11:26:00 88 /min [facility] Respiratory rate 2020-09-19 11:26:00 16 /min [facility] Body Temperature 2020-09-19 11:26:00 98.6 [degF] [facility] Oxygen saturation by 2020-09-19 08:10:00 93 /min [facility] Heart Rate 2020-09-19 08:10:00 97 /min [facility] Respiratory rate 2020-09-19 08:10:00 20 /min [facility] BP Diastolic 2020-09-19 07:37:00 91 mm[Hg] [facility] BP Systolic 2020-09-19 07:37:00 168 mm[Hg] [facility] Oxygen saturation by 2020-09-19 07:37:00 97 /min [facility] Heart Rate 2020-09-19 07:37:00 83 /min [facility] Respiratory rate 2020-09-19 07:37:00 21 /min [facility] Body Temperature 2020-09-19 07:37:00 98.1 [degF] [facility] BP Diastolic 2020-09-19 07:17:00 91 mm[Hg] [facility] BP Systolic 2020-09-19 07:17:00 168 mm[Hg] [facility] Oxygen saturation by 2020-09-19 07:17:00 97 /min [facility] Heart Rate 2020-09-19 07:17:00 83 /min [facility] [...] 157 mm[Hg] [facility] O[facility] by 2020-09-19 05:03:00 93 /min [facility] Heart Rate 2020-09-19 05:03:00 91 /min [facility] Respiratory rate 2020-09-19 05:03:00 18 /min [facility] Body Temperature 2020-09-19 05:03:00 91.0 [degF] [facility] BP Diastolic 2020-09-19 01:59:00 87 mm[Hg] [facility] BP Systolic 2020-09-19 01:59:00 200 mm[Hg] [facility] Oxygen saturation by 2020-09-19 01:59:00 96 /min [facility] Heart Rate 2020-09-19 01:59:00 92 /min [facility] Respiratory rate 2020-09-19 01:59:00 18 /min [facility] Body Temperature 2020-09-19 01:59:00 97.7 [degF] [facility] BP Diastolic 2020-09-18 22:57:00 86 mm[Hg] [facility] BP Systolic 2020-09-18 22:57:00 158 mm[Hg] [facility] Oxygen saturation by 2020-09-18 22:57:00 96 /min [facility] Heart Rate 2020-09-18 22:57:00 68 /min [facility] Respiratory rate 2020-09-18 22:57:00 18 /min [facility] Body Temperature 2020-09-18 22:57:00 97.7 [degF] [facility] BP Diastolic 2020-09-18 21:58:00 86 mm[Hg] [facility] BP Systolic 2020-09-18 21:58:00 158 mm[Hg] [facility] Oxygen saturation by 2020-09-18 21:58:00 96 /min [facility] Heart Rate 2020-09-18 21:58:00 68 /min [facility] Respiratory rate 2020-09-18 21:58:00 18 /min [facility] Body Temperature 2020-09-18 21:58:00 97.7 [degF] [facility] Oxygen saturation by 2020-09-18 21:16:00 93 /min [facility] Heart Rate 2020-09-18 21:16:00 97 /min [facility] Respiratory rate 2020-09-18 21:16:00 20 /min [facility] BP Diastolic 2020-09-18 15:41:00 70 mm[Hg] [facility] BP Systolic 2020-09-18 15:41:00 163 mm[Hg] [facility] Oxygen saturation by 2020-09-18 15:41:00 98 /min [facility] Heart Rate 2020-09-18 15:41:00 84 /min [facility] Respiratory rate 2020-09-18 15:41:00 21 /min [facility] Body Temperature 2020-09-18 15:41:00 98.6 [degF] [facility] BP Diastolic 2020-09-18 13:00:00 73 mm[Hg] [facility] BP Systolic 2020-09-18 13:00:00 160 mm[Hg] [facility] Oxygen saturation by 2020-09-18 13:00:00 96 /min [facility] Heart Rate 2020-09-18 13:00:00 86 /min [facility] Respiratory rate 2020-09-18 13:00:00 23 /min [facility] Body Temperature 2020-09-18 12:23:00 98.0 [degF] [facility] BP Diastolic 2020-09-18 12:00:00 77 mm[Hg] [facility] BP Systolic 2020-09-18 12:00:00 162 mm[Hg] [facility] Oxygen saturation by 2020-09-18 12:00:00 96 /min [facility] Heart Rate 2020-09-18 12:00:00 85 /min [facility] Heart Rate 2020-09-18 11:00:00 86 /min [facility] Heart Rate 2020-09-18 10:00:00 80 /min [facility] Heart Rate 2020-09-18 09:00:00 86 /min [facility] Respiratory rate 2020-09-18 09:00:00 18 /min [facility] Body Temperature 2020-09-18 09:00:00 97.7 [degF] [facility] BP Diastolic 2020-09-18 08:00:00 70 mm[Hg] [facility] BP Systolic 2020-09-18 08:00:00 146 mm[Hg] [facility] Oxygen saturation by 2020-09-18 08:00:00 96 /min [facility] Heart Rate 2020-09-18 08:00:00 86 /min [facility] Respiratory rate 2020-09-18 08:00:00 15 /min [facility] BP Diastolic 2020-09-18 07:51:00 80 mm[Hg] [facility] BP Systolic 2020-09-18 07:51:00 141 mm[Hg] [facility] Oxygen saturation by 2020-09-18 07:51:00 96 /min [facility] Heart Rate 2020-09-18 07:51:00 86 /min [facility] Respiratory rate 2020-09-18 07:51:00 17 /min [facility] Body Temperature 2020-09-18 07:51:00 97.7 [degF] [facility] Oxygen saturation by 2020-09-18 07:35:00 97 /min [facility] Heart Rate 2020-09-18 07:35:00 85 /min [facility] Heart Rate 2020-09-18 07:00:00 86 /min [facility] Respiratory rate 2020-09-18 07:00:00 17 /min [facility] Body Temperature 2020-09-18 07:00:00 97.7 [degF] [facility] BP Diastolic 2020-09-18 06:00:00 85 mm[Hg] [facility] BP Systolic 2020-09-18 06:00:00 174 mm[Hg] [facility] Oxygen saturation by 2020-09-18 06:00:00 96 /min [facility] Heart Rate 2020-09-18 06:00:00 95 /min [facility] Heart Rate 2020-09-18 05:00:00 86 /min [facility] Respiratory rate 2020-09-18 05:00:00 18 /min [facility] BP Diastolic 2020-09-18 04:00:00 74 mm[Hg] [facility] BP Systolic 2020-09-18 04:00:00 150 mm[Hg] [facility] Oxygen saturation by 2020-09-18 04:00:00 96 /min [facility] Heart Rate 2020-09-18 04:00:00 76 /min [facility] Respiratory rate 2020-09-18 04:00:00 17 /min [facility] BP Diastolic 2020-09-18 03:00:00 88 mm[Hg] [facility] BP Systolic 2020-09-18 03:00:00 157 mm[Hg] [facility] Oxygen saturation by 2020-09-18 03:00:00 97 /min [facility] Heart Rate 2020-09-18 03:00:00 89 /min [facility] Heart Rate 2020-09-18 02:00:00 95 /min [facility] Respiratory rate 2020-09-18 02:00:00 16 /min [facility] BP Diastolic 2020-09-18 01:00:00 73 mm[Hg] [facility] BP Systolic 2020-09-18 01:00:00 144 mm[Hg] [facility] Oxygen saturation by 2020-09-18 01:00:00 97 /min [facility] Heart Rate 2020-09-18 01:00:00 84 /min [facility] Respiratory rate 2020-09-18 01:00:00 19 /min [facility] BP Diastolic 2020-09-18 00:00:00 68 mm[Hg] [facility] BP Systolic 2020-09-18 00:00:00 144 mm[Hg] [facility] Oxygen saturation by 2020-09-18 00:00:00 97 /min [facility] Heart Rate 2020-09-18 00:00:00 89 /min [facility] Respiratory rate 2020-09-18 00:00:00 18 /min [facility] Body Temperature 2020-09-18 00:00:00 98.3 [degF] [facility] BP Diastolic 2020-09-17 23:00:00 89 mm[Hg] [facility] BP Systolic 2020-09-17 23:00:00 145 mm[Hg] [facility] Oxygen saturation by 2020-09-17 23:00:00 96 /min [facility] Heart Rate 2020-09-17 23:00:00 90 /min [facility] Heart Rate 2020-09-17 22:03:00 90 /min [facility] Respiratory rate 2020-09-17 22:03:00 18 /min [facility] BP Diastolic 2020-09-17 21:00:00 62 mm[Hg] [facility] BP Systolic 2020-09-17 21:00:00 117 mm[Hg] [facility] Oxygen saturation by 2020-09-17 21:00:00 96 /min [facility] Heart Rate 2020-09-17 21:00:00 97 /min [facility] Respiratory rate 2020-09-17 21:00:00 19 /min [facility] Oxygen saturation by 2020-09-17 20:08:00 96 /min [facility] Heart Rate 2020-09-17 20:08:00 95 /min [facility] Respiratory rate 2020-09-17 20:08:00 20 /min [facility] BP Diastolic 2020-09-17 20:00:00 86 mm[Hg] [facility] BP Systolic 2020-09-17 20:00:00 169 mm[Hg] [facility] Oxygen saturation by 2020-09-17 20:00:00 95 /min [facility] Heart Rate 2020-09-17 20:00:00 105 /min [facility] Heart Rate 2020-09-17 19:00:00 102 /min [facility] Heart Rate 2020-09-17 18:00:00 97 /min [facility] Heart Rate 2020-09-17 17:00:00 106 /min [facility] Respiratory rate 2020-09-17 17:00:00 26 /min [facility] BP Diastolic 2020-09-17 16:00:00 83 mm[Hg] [facility] BP Systolic 2020-09-17 16:00:00 184 mm[Hg] [facility] Oxygen saturation by 2020-09-17 16:00:00 92 /min [facility] Heart Rate 2020-09-17 16:00:00 96 /min [facility] Respiratory rate 2020-09-17 16:00:00 32 /min [facility] Body Temperature 2020-09-17 16:00:00 98.6 [degF] [facility] Oxygen saturation by 2020-09-17 15:28:00 94 /min [facility] Heart Rate 2020-09-17 15:28:00 83 /min [facility] Respiratory rate 2020-09-17 15:28:00 26 /min [facility] Oxygen saturation by 2020-09-17 15:27:00 94 /min [facility] Heart Rate 2020-09-17 15:27:00 83 /min [facility] Heart Rate 2020-09-17 15:00:00 93 /min [facility] Respiratory rate 2020-09-17 15:00:00 24 /min [facility] Oxygen saturation by 2020-09-17 14:59:00 94 /min [facility] Heart Rate 2020-09-17 14:59:00 84 /min [facility] Heart Rate 2020-09-17 14:00:00 109 /min [facility] Heart Rate 2020-09-17 13:00:00 112 /min [facility] Heart Rate 2020-09-17 12:00:00 112 /min [facility] Heart Rate 2020-09-17 11:00:00 119 /min [facility] BP Systolic 2020-09-17 09:00:00 175 mm[Hg] [facility] Oxygen saturation by 2020-09-17 09:00:00 97 /min [facility] Heart Rate 2020-09-17 09:00:00 88 /min [facility] Respiratory rate 2020-09-17 09:00:00 17 /min [facility] Body Temperature 2020-09-17 09:00:00 97.6 [degF] [facility] BP Diastolic 2020-09-17 08:00:00 77 mm[Hg] [facility] BP Systolic 2020-09-17 08:00:00 167 mm[Hg] [facility] Oxygen saturation by 2020-09-17 08:00:00 96 /min [facility] Heart Rate 2020-09-17 08:00:00 85 /min [facility] Heart Rate 2020-09-17 07:00:00 84 /min [facility] Heart Rate 2020-09-17 06:00:00 83 /min [facility] Heart Rate 2020-09-17 05:00:00 84 /min [facility] Respiratory rate 2020-09-17 05:00:00 16 /min [facility] BP Diastolic 2020-09-17 04:00:00 85 mm[Hg] [facility] BP Systolic 2020-09-17 04:00:00 155 mm[Hg] [facility] Oxygen saturation by 2020-09-17 04:00:00 96 /min [facility] Heart Rate 2020-09-17 04:00:00 86 /min [facility] Respiratory rate 2020-09-17 04:00:00 22 /min [facility] BP Diastolic 2020-09-17 03:30:00 84 mm[Hg] [facility] BP Systolic 2020-09-17 03:30:00 196 mm[Hg] [facility] BP Diastolic 2020-09-17 03:00:00 82 mm[Hg] [facility] BP Systolic 2020-09-17 03:00:00 188 mm[Hg] [facility] Oxygen saturation by 2020-09-17 03:00:00 97 /min [facility] Heart Rate 2020-09-17 03:00:00 90 /min [facility] Respiratory rate 2020-09-17 03:00:00 18 /min [facility] Body Temperature 2020-09-17 03:00:00 97.6 [degF] [facility] BP Diastolic 2020-09-17 02:00:00 75 mm[Hg] [facility] BP Systolic 2020-09-17 02:00:00 154 mm[Hg] [facility] Oxygen saturation by 2020-09-17 02:00:00 95 /min [facility] Heart Rate 2020-09-17 02:00:00 88 /min [facility] Respiratory rate 2020-09-17 02:00:00 18 /min [facility] BP Systolic 2020-09-17 01:00:00 144 mm[Hg] [facility] Oxygen saturation by 2020-09-17 01:00:00 94 /min [facility] Heart Rate 2020-09-17 01:00:00 88 /min [facility] Heart Rate 2020-09-17 00:00:00 92 /min [facility] Respiratory rate 2020-09-17 00:00:00 26 /min [facility] Oxygen saturation by 2020-09-16 23:05:00 95 /min [facility] Heart Rate 2020-09-16 23:05:00 77 /min [facility] Heart Rate 2020-09-16 23:00:00 83 /min [facility] Respiratory rate 2020-09-16 23:00:00 23 /min [facility] Body Temperature 2020-09-16 23:00:00 97.1 [degF] [facility] BP Diastolic 2020-09-16 22:12:00 76 mm[Hg] [facility] BP Systolic 2020-09-16 22:12:00 137 mm[Hg] [facility] Heart Rate 2020-09-16 22:12:00 80 /min [facility] BP Diastolic 2020-09-16 22:06:00 82 mm[Hg] [facility] BP Systolic 2020-09-16 22:06:00 176 mm[Hg] [facility] Oxygen saturation by 2020-09-16 22:06:00 96 /min [facility] Heart Rate 2020-09-16 22:06:00 82 /min [facility] Respiratory rate 2020-09-16 22:06:00 18 /min [facility] BP Diastolic 2020-09-16 22:03:00 81 mm[Hg] [facility] BP Systolic 2020-09-16 22:03:00 201 mm[Hg] [facility] Oxygen saturation by 2020-09-16 22:03:00 96 /min [facility] Heart Rate 2020-09-16 22:03:00 84 /min [facility] Respiratory rate 2020-09-16 22:03:00 22 /min [facility] BP Diastolic 2020-09-16 22:00:00 86 mm[Hg] [facility] BP Systolic 2020-09-16 22:00:00 206 mm[Hg] [facility] Oxygen saturation by 2020-09-16 22:00:00 96 /min [facility] - Pulse oximetry Patients [facility] Heart Rate 2020-09-16 22:00:00 86 /min [facility] Respiratory rate 2020-09-16 22:00:00 19 /min [facility] BP Diastolic 2020-09-16 21:01:00 69 mm[Hg] [facility] BP Systolic 2020-09-16 21:01:00 153 mm[Hg] [facility] Oxygen saturation by 2020-09-16 21:01:00 96 /min [facility] Pulse [facility] Patients [facility] Heart Rate 2020-09-16 21:01:00 85 /min [facility] Respiratory rate 2020-09-16 21:01:00 17 /min [facility] BP Diastolic 2020-09-16 20:44:00 111 mm[Hg] [facility] BP Systolic 2020-09-16 20:44:00 141 mm[Hg] [facility] Oxygen saturation by 2020-09-16 20:44:00 96 /min [facility] Pulse [facility]xim[facility] Patients [facility] Heart Rate 2020-09-16 20:44:00 84 /min [facility] Respiratory rate 2020-09-16 20:44:00 21 /min [facility] Body Temperature 2020-09-16 20:44:00 98.0 [degF] [facility] BP Diastolic 2020-09-16 20:42:00 111 mm[Hg] [facility] BP Systolic 2020-09-16 20:42:00 141 mm[Hg] [facility] Heart Rate 2020-09-16 20:42:00 84 /min [facility] BP Diastolic 2020-09-16 20:24:00 66 mm[Hg] [facility] BP Systolic 2020-09-16 20:24:00 163 mm[Hg] [facility] Heart Rate 2020-09-16 20:24:00 84 /min [facility] BP Diastolic 2020-09-16 20:00:00 88 mm[Hg] [facility] BP Systolic 2020-09-16 20:00:00 185 mm[Hg] [facility] Oxygen saturation by 2020-09-16 20:00:00 96 /min [facility] Patients [facility] Heart Rate 2020-09-16 20:00:00 96 /min [facility] Respiratory rate 2020-09-16 20:00:00 21 /min [facility] Body Temperature 2020-09-16 20:00:00 98.0 [degF] [facility] Oxygen saturation by 2020-09-16 19:40:00 96 /min [facility] Patients [facility] Heart Rate 2020-09-16 19:40:00 105 /min [facility] Respiratory rate 2020-09-16 19:40:00 27 /min [facility] BP Diastolic 2020-09-16 16:00:00 90 mm[Hg] [facility] BP Systolic 2020-09-16 16:00:00 175 mm[Hg] [facility] Oxygen saturation by 2020-09-16 16:00:00 96 /min [facility] Patients [facility] Heart Rate 2020-09-16 16:00:00 108 /min [facility] Respiratory rate 2020-09-16 16:00:00 36 /min [facility] Body Temperature 2020-09-16 16:00:00 98.5 [degF] [facility] BP Diastolic 2020-09-16 13:00:00 73 mm[Hg] [facility] BP Systolic 2020-09-16 13:00:00 149 mm[Hg] [facility] Oxygen saturation by 2020-09-16 13:00:00 2 /min [facility] Patients [facility] Heart Rate 2020-09-16 13:00:00 90 /min [facility] Patients [facility] Heart Rate 2020-09-16 12:00:00 101 /min [facility] Respiratory rate 2020-09-16 12:00:00 32 /min [facility] Body Temperature 2020-09-16 12:00:00 97.8 [degF] [facility] Oxygen saturation by 2020-09-16 11:00:00 96 /min [facility] Patients [facility] Heart Rate 2020-09-16 11:00:00 79 /min [facility] Patients [facility] Heart Rate 2020-09-16 10:00:00 82 /min [facility] Respiratory rate 2020-09-16 10:00:00 20 /min [facility] Body Temperature 2020-09-16 10:00:00 98.4 [degF] [facility] BP Diastolic 2020-09-16 09:00:00 82 mm[Hg] [facility] BP Systolic 2020-09-16 09:00:00 166 mm[Hg] [facility] Oxygen saturation by 2020-09-16 09:00:00 95 /min [facility] Patients [facility] Heart Rate 2020-09-16 09:00:00 82 /min [facility] Respiratory rate 2020-09-16 09:00:00 20 /min [facility] BP Diastolic 2020-09-16 08:00:00 77 mm[Hg] [facility] BP Systolic 2020-09-16 08:00:00 197 mm[Hg] [facility] Oxygen saturation by 2020-09-16 08:00:00 94 /min [facility] Patients [facility] Heart Rate 2020-09-16 08:00:00 79 /min [facility] Respiratory rate 2020-09-16 08:00:00 23 /min [facility] BP Diastolic 2020-09-16 07:00:00 110 mm[Hg] [facility] BP Systolic 2020-09-16 07:00:00 173 mm[Hg] [facility] Oxygen saturation by 2020-09-16 07:00:00 95 /min [facility] P[facility] Patients [facility] Heart Rate 2020-09-16 07:00:00 73 /min [facility] Respiratory rate 2020-09-16 07:00:00 20 /min [facility] Body Temperature 2020-09-16 07:00:00 98.4 [degF] [facility] BP Diastolic 2020-09-16 06:00:00 78 mm[Hg] [facility] BP Systolic 2020-09-16 06:00:00 178 mm[Hg] [facility] Oxygen saturation by 2020-09-16 06:00:00 93 /min [facility] Patients [facility] Heart Rate 2020-09-16 06:00:00 87 /min [facility] Respiratory rate 2020-09-16 06:00:00 19 /min [facility] BP Diastolic 2020-09-16 05:00:00 71 mm[Hg] [facility] BP Systolic 2020-09-16 05:00:00 150 mm[Hg] [facility] Oxygen saturation by 2020-09-16 05:00:00 96 /min [facility] Patients [facility] Heart Rate 2020-09-16 05:00:00 89 /min [facility] Respiratory rate 2020-09-16 05:00:00 22 /min [facility] BP Diastolic 2020-09-16 04:00:00 71 mm[Hg] [facility] BP Systolic 2020-09-16 04:00:00 139 mm[Hg] [facility] Oxygen saturation by 2020-09-16 04:00:00 96 /min [facility] Patients [facility] Heart Rate 2020-09-16 04:00:00 85 /min [facility] Respiratory rate 2020-09-16 04:00:00 16 /min [facility] BP Diastolic 2020-09-16 03:00:00 69 mm[Hg] [facility] BP Systolic 2020-09-16 03:00:00 135 mm[Hg] [facility] Oxygen saturation by 2020-09-16 03:00:00 95 /min [facility] Pulse [facility] Patients [facility] Heart Rate 2020-09-16 03:00:00 82 /min [facility] Respiratory rate 2020-09-16 03:00:00 15 /min [facility] Body Temperature 2020-09-16 03:00:00 98.5 [degF] [facility] BP Diastolic 2020-09-16 02:00:00 66 mm[Hg] [facility] BP Systolic 2020-09-16 02:00:00 140 mm[Hg] [facility] Oxygen saturation by 2020-09-16 02:00:00 95 /min [facility] Patients [facility] Heart Rate 2020-09-16 02:00:00 83 /min [facility] Respiratory rate 2020-09-16 02:00:00 17 /min [facility] BP Diastolic 2020-09-16 01:00:00 70 mm[Hg] [facility] BP Systolic 2020-09-16 01:00:00 164 mm[Hg] [facility] Oxygen saturation by 2020-09-16 01:00:00 96 /min [facility] Patients [facility] Heart Rate 2020-09-16 01:00:00 84 /min [facility] Respiratory rate 2020-09-16 01:00:00 20 /min [facility] BP Diastolic 2020-09-16 00:00:00 86 mm[Hg] [facility] BP Systolic 2020-09-16 00:00:00 173 mm[Hg] [facility] Oxygen saturation by 2020-09-16 00:00:00 94 /min [facility] Patients [facility] Heart Rate 2020-09-16 00:00:00 77 /min [facility] Patients [facility] Heart Rate 2020-09-15 23:00:00 79 /min [facility] Respiratory rate 2020-09-15 23:00:00 18 /min [facility] BP Diastolic 2020-09-15 22:00:00 55 mm[Hg] [facility] BP Systolic 2020-09-15 22:00:00 133 mm[Hg] [facility] Oxygen saturation by 2020-09-15 22:00:00 94 /min [facility] Pulse [facility] Patients [facility] Heart Rate 2020-09-15 22:00:00 78 /min [facility] Respiratory rate 2020-09-15 22:00:00 17 /min [facility] BP Diastolic 2020-09-15 21:00:00 56 mm[Hg] [facility] BP Systolic 2020-09-15 21:00:00 145 mm[Hg] [facility] Oxygen saturation by 2020-09-15 21:00:00 93 /min [facility] Pulse [facility] Patients [facility] Heart Rate 2020-09-15 21:00:00 79 /min [facility] Respiratory rate 2020-09-15 21:00:00 17 /min [facility] Oxygen saturation by 2020-09-15 20:50:00 94 /min [facility] Pulse [facility] Patients [facility] Heart Rate 2020-09-15 20:50:00 81 /min [facility] Respiratory rate 2020-09-15 20:50:00 18 /min [facility] BP Diastolic 2020-09-15 20:00:00 56 mm[Hg] [facility] BP Systolic 2020-09-15 20:00:00 165 mm[Hg] [facility] Oxygen saturation by 2020-09-15 20:00:00 97 /min [facility] Pulse [facility] Patients [facility] Heart Rate 2020-09-15 20:00:00 76 /min [facility] Respiratory rate 2020-09-15 20:00:00 22 /min [facility] Oxygen saturation by 2020-09-15 19:00:00 96 /min [facility] Pulse [facility] Patients [facility] Respiratory rate 2020-09-15 19:00:00 14 /min [facility] Body Temperature 2020-09-15 19:00:00 98.7 [degF] [facility] BP Diastolic 2020-09-15 18:00:00 115 mm[Hg] [facility] BP Systolic 2020-09-15 18:00:00 154 mm[Hg] [facility] Oxygen saturation by 2020-09-15 18:00:00 94 /min [facility] Patients [facility] Heart Rate 2020-09-15 18:00:00 79 /min [facility] Respiratory rate 2020-09-15 18:00:00 19 /min [facility] BP Diastolic 2020-09-15 17:00:00 65 mm[Hg] [facility] BP Systolic 2020-09-15 17:00:00 154 mm[Hg] [facility] Oxygen saturation by 2020-09-15 17:00:00 95 /min [facility] Patients [facility] Heart Rate 2020-09-15 17:00:00 71 /min [facility] Respiratory rate 2020-09-15 17:00:00 18 /min [facility] BP Diastolic 2020-09-15 16:00:00 75 mm[Hg] [facility] BP Systolic 2020-09-15 16:00:00 159 mm[Hg] [facility] Oxygen saturation by 2020-09-15 16:00:00 94 /min [facility] Pulse [facility] Patients [facility] Heart Rate 2020-09-15 16:00:00 75 /min [facility] Respiratory rate 2020-09-15 16:00:00 16 /min [facility] BP Diastolic 2020-09-15 15:14:00 71 mm[Hg] [facility] BP Systolic 2020-09-15 15:14:00 169 mm[Hg] [facility] Oxygen saturation by 2020-09-15 15:14:00 100 /min [facility] Patients [facility] Heart Rate 2020-09-15 15:14:00 75 /min [facility] Body Temperature 2020-09-15 15:14:00 97.7 [degF] [facility] BP Diastolic 2020-09-15 15:10:00 66 mm[Hg] [facility] BP Systolic 2020-09-15 15:10:00 156 mm[Hg] [facility] Oxygen saturation by 2020-09-15 15:10:00 100 /min [facility] Patients [facility] Heart Rate 2020-09-15 15:10:00 74 /min [facility] Patients [facility] Heart Rate 2020-09-15 14:50:00 81 /min [facility] Respiratory rate 2020-09-15 14:50:00 18 /min [facility] BP Diastolic 2020-09-15 14:40:00 94 mm[Hg] [facility] BP Systolic 2020-09-15 14:40:00 200 mm[Hg] [facility] Oxygen saturation by 2020-09-15 14:40:00 97 /min [facility] Patients [facility] Heart Rate 2020-09-15 14:40:00 96 /min [facility] Respiratory rate 2020-09-15 14:40:00 16 /min [facility] BP Diastolic 2020-09-15 14:25:00 96 mm[Hg] [facility] BP Systolic 2020-09-15 14:25:00 175 mm[Hg] [facility] Oxygen saturation by 2020-09-15 14:25:00 98 /min [facility] P[facility] Patients [facility] Heart Rate 2020-09-15 14:25:00 99 /min [facility] Respiratory rate 2020-09-15 14:25:00 16 [...] [facility] Patients [facility] Heart Rate 2020-09-15 11:14:00 70 /min [facility] Respiratory rate 2020-09-15 11:14:00 18 /min [facility] Body Temperature 2020-09-15 11:14:00 97.6 [degF] [facility] BP Diastolic 2020-09-15 08:52:00 75 mm[Hg] [facility] BP Systolic 2020-09-15 08:52:00 171 mm[Hg] [facility] Oxygen saturation by 2020-09-15 08:52:00 92 /min [facility] Patients [facility] Heart Rate 2020-09-15 08:52:00 74 /min [facility] Respiratory rate 2020-09-15 08:52:00 18 /min [...] [facility] Patients [facility] Heart Rate 2020-09-15 07:45:00 74 /min [facility] Patients [facility] Heart Rate 2020-09-15 04:00:00 68 /min [facility] Patients [facility] Heart Rate 2020-09-15 00:00:00 72 /min [facility] Respiratory rate 2020-09-15 00:00:00 [...] [facility] Patients [facility] Heart Rate 2020-09-14 20:27:00 90 /min [facility] Patients [facility] Heart Rate 2020-09-14 20:00:00 90 /min [facility] Respiratory rate 2020-09-14 20:00:00 20 /min [facility] Body Temperature 2020-09-14 20:00:00 98.5 [degF] [facility] BP Diastolic 2020-09-14 15:47:00 82 mm[Hg] [facility] BP Systolic 2020-09-14 15:47:00 155 mm[Hg] [facility] Oxygen saturation by 2020-09-14 15:47:00 95 /min [facility] Patients [facility] Heart Rate 2020-09-14 15:47:00 85 /min [facility] Respiratory rate 2020-09-14 15:47:00 16 /min [facility] Body Temperature 2020-09-14 15:47:00 98.1 [degF] [facility] BP Diastolic 2020-09-14 11:15:00 73 mm[Hg] [facility] BP Systolic 2020-09-14 11:15:00 165 mm[Hg] [facility] Oxygen saturation by 2020-09-14 11:15:00 93 /min [facility] Patients [facility] Heart Rate 2020-09-14 11:15:00 89 /min [facility] Heart Rate 2020-09-14 07:49:00 88 /min [facility] Heart Rate 2020-09-14 07:31:00 88 /min [facility] Heart Rate 2020-09-14 04:00:00 94 /min [facility] Heart Rate 2020-09-14 00:00:00 90 /min [facility] Respiratory rate 2020-09-14 00:00:00 18 /min [facility] Body Temperature 2020-09-14 00:00:00 98.1 [degF] [facility] BP Diastolic 2020-09-13 20:12:00 84 mm[Hg] [facility] BP Systolic 2020-09-13 20:12:00 177 mm[Hg] [facility] Oxygen saturation by 2020-09-13 20:12:00 94 /min [facility] Patients [facility] Heart Rate 2020-09-13 20:12:00 88 /min [facility] Heart Rate 2020-09-13 20:00:00 88 /min [facility] Heart Rate 2020-09-13 16:11:00 78 /min [facility] Heart Rate 2020-09-13 12:08:00 82 /min [facility] Heart Rate 2020-09-13 11:16:00 79 /min [facility] Respiratory rate 2020-09-13 11:16:00 18 /min [facility] Body Temperature 2020-09-13 11:16:00 97.4 [degF] [facility] BP Diastolic 2020-09-13 08:45:00 79 mm[Hg] [facility] BP Systolic 2020-09-13 08:45:00 151 mm[Hg] [facility] Oxygen saturation by 2020-09-13 08:45:00 95 /min [facility] Patients [facility] Heart Rate 2020-09-13 08:45:00 79 /min [facility] Respiratory rate 2020-09-13 08:45:00 18 [...] [facility] Patients [facility] Heart Rate 2020-09-13 04:00:00 87 /min [facility] Heart Rate 2020-09-13 00:00:00 76 /min [facility] Respiratory rate 2020-09-13 00:00:00 20 /min [facility] Body Temperature 2020-09-13 00:00:00 98.7 [degF] [facility] BP Diastolic 2020-09-12 22:28:00 92 mm[Hg] [facility] BP Systolic 2020-09-12 22:28:00 150 mm[Hg] [facility] Oxygen saturation by 2020-09-12 22:28:00 95 /min [facility] Pulse oxim[facility] Patients [facility] Heart Rate 2020-09-12 22:28:00 96 /[facility] Respiratory rate 2020-09-12 22:28:00 18 /min [facility] Body Temperature 2020-09-12 22:28:00 97.9 [degF] [facility] BP Diastolic 2020-09-12 22:18:00 92 mm[Hg] [facility] BP Systolic 2020-09-12 22:18:00 150 mm[Hg] [facility] Oxygen saturation by 2020-09-12 22:18:00 95 /min [facility] - Pulse oximetry Patients [facility] Heart Rate 2020-09-12 22:18:00 96 /min [facility] Respiratory rate 2020-09-12 22:18:00 18 /min [facility] Body Temperature 2020-09-12 22:18:00 97.9 [degF] [facility] BP Diastolic 2020-09-12 20:23:00 92 mm[Hg] [facility] Systolic 2020-09-12 20:23:00 150 mm[Hg] [facility] Patients [facility] Oxygen saturation by 2020-09-12 20:23:00 96 /min [facility] Pulse oxim[facility] Patients [facility] Heart Rate 2020-09-12 20:23:00 95 /min [facility] Respiratory rate 2020-09-12 20:23:00 18 /min [facility] Body Temperature 2020-09-12 20:23:00 97.9 [degF] [facility] - Patients [facility] Oxygen saturation by 2020-09-12 20:11:00 96 /min [facility] Pulse [facility]xim[facility] Patients [facility] Oxygen saturation by 2020-09-12 18:25:00 98 /min [facility] Pulse [facility]xim[facility] Patients [facility] Oxygen saturation by 2020-09-12 15:35:00 98 /min [facility] Pulse oximetry Patients [facility] Procedures Procedure Date / Time Performing Clinician Source Performed HC COMPLETE BLD COUNT 2020-12-03 05:00:00 Andrew Calix W/AUTO DIFF BASIC METABOLIC PANEL 2020-12-03 04:00:00 Andrew Calix ESTIMATED GFR 2020-12-03 04:00:00 Andrew Claix MRI BRAIN WO CONTRAST 2020-12-02 12:48:00 Andrew Calix BASIC METABOLIC PANEL 2020-12-02 03:52:00 Andrew Calix ESTIMATED GFR 2020-12-02 03:52:00 Andrew Calix HC COMPLETE BLD COUNT 2020-12-02 03:38:00 Andrew Calix W/AUTO DIFF US CAROTID DUPLEX 2020-12-01 15:45:00 Andrew Calix BILATERAL TTE COMPLETE, WO 2020-12-01 11:39:21 Andrew Calix CONTRAST, W DOPPLER ([id number]) HC COMPLETE BLD COUNT 2020-12-01 04:30:00 Andrew [...] MICROSCOPY COVID-19 QUALITATIVE 2020-11-30 16:44:00 Elliot Parkinson n [facility] RT-PCR CT HEAD WO CONTRAST 2020-11-30 14:03:[address] ANGIOGRAM PE CHEST 2020-11-30 14:03:13 Elliot Parkinson ECG ED PRELIMINARY 2020-11-30 12:08:13 Elliot Parkinson INTERPRETATION HC COMPLETE BLD COUNT 2020-11-30 11:15:00 Elliot Parkinsonist W/AUTO DIFF PROTHROMBIN TIME WITH INR 2020-11-30 11:15:00 Elliot Parkinson PARTIAL THROMBOPLASTIN 2020-11-30 11:15:00 Elliot Parkinson TIME (PTT) COMPREHENSIVE METABOLIC 2020-11-30 11:15:00 Elliot Parkinson [facility] PANEL TROPONIN 2020-11-30 11:15:00 Elliot Parkinson [facility] B NATRIURETIC PEPTIDE 2020-11-30 11:15:00 Elliot Parkinson [facility] ESTIMATED GFR 2020-11-30 11:15:00 Elliot Parkinson [facility] D-DIMER 2020-11-30 11:15:00 IggyElliot [facility] ECG 12-LEAD 2020-11-30 10:58:05 Iggy Elliot [place] [facility] Computed tomography of 2020-09-20 00:00:00 RUSTAM Bruno - chest with contrast Patients [facility] Exploratory laparotomy 2020-09-15 00:00:00 [facility]UST[facility] of abdomen and pelvis 2020-03-02 00:00:00 RUSTAM Arora - without contrast Patients [facility] Plan of Care Planned Activity Planned Date Details Comments Source Future Scheduled 2021-01-28 INFLUENZA VACCINE [place] [facility] Test 00:00:00 [code = INFLUENZA VACCINE] Future Scheduled 1981-12-16 SHINGLES VACCINES (#1) H joel [facility] Test 00:00:00 [code = SHINGLES VACCINES (#1)] Future Scheduled 1943 COVID-19 VACCINE (1) [place] [facility] Test 00:00:00 [code = COVID-19 VACCINE (1)] Future Scheduled 1937-12-16 65+ PNEUMOCOCCAL [place] [facility] Test 00:00:00 VACCINE (1 of 2 - PPSV23) [code = 65+ PNEUMOCOCCAL VACCINE (1 of 2 - PPSV23)] Encounters Start End Encounter Admission Attending Care Care Encounter Source Date/Time Date/Time Type Type Clinicians Facility Department ID 2020-12-29 2020-12-29 Office [facility] [id number] 12:52:54 13:35:06 Visit Melody A [facility] [id number] [place] [id number] [place] [id number] nal 044 Office [address] 2020-11-30 2020-12-04 [id number] [place] 00:00:00 00:00:00 ANDREW [address] 2020-09-12 2020-09-28 Discharged 1 [facility] [place] [id number] 19:18:00 13:20:00 Inpatient SOUHEIL Patients 99 [facility] 2020-03-02 2020-03-02 Registered 3 SAINI, [facility] [place] [id number] [facility] St. 13:32:00 13:32:00 Clinic JEANNINE Patients 29 [facility] Results Test Description Test Test Results Result Source Time Comments Comments MRI Brain Wo 2020-11- Interface, Radiology [facility] 05 Results Incoming - Method ist 13:04:52 12/02/2020 1:08 PM CDT EXAMINATION: MRI BRAIN WO CONTRASTCLINICAL HISTORY: Memory LossCOMPARISON: CT head 11/30/2020TECHNIQUE: [...] diffuse hypoperfusion.IMPRESSION: No structural evidence of neurodegenerative disease.[id number] Pv carotid duplex 2020-11- Interface, Radiology [place] 04 Results In - 12/01/2020 M ethodist 21:56:00 9:57 PM CDT [facility] Carotid Artery Duplex Report [address] [place] [address] For food quality tester purposes, the categorization of the degree of the stenosis of this exam is based on criteria described in the IAC carotid stenosis grading white paper( www.intersocietal.org/Vas cular) and Shakira Angulo., Zuri Ruth, et al. Carotid artery stenosis: davis-scale and Doppler US diagnosis--Society of Radiologists in Ultrasound Consensus Conference. Radiology. 2003 Nov; 229(2):340-6. Pat.Name: JUSTICE HARDY Pat.ID: [id number] .Date: 12/01/2020 Refer.MD: ANDREW CALIX MD Exam Time: 3:19:00 PM Study Type:Carotid Height: 64in Weight: 120lb BSA: 1.58 m2 Age: 7 1930,89Y Sex: MALE Sonogrphr: VINCENZO Leigh. Stat.:Inpatient Room: [address] Tape Vol: GB, CPT - 4: 94446 Echo Event ID:[id number] Order ID: [id number] Reason for Study:Altered mental status. History of [...] Ratio ICA/CCA PSV 0.621 Signed 12/01/2020 09:56 PMKaylinsolt Tosin MD, RPVI Transthoracic 2020-11- Interface, Radiology [facility] Echocardiogram 04 Results In - 12/01/2020 [facility] Complete, (w 14:37:00 2:38 PM CDTFormatting of Contrast, Strain this note might be and 3D if needed) different from the original. Echocardiography Report [address] [place] [address] Pat.Name: JUSTICE HARDY Pat.ID: [id number] .Date: 12/01/2020 Refer.MD: ANDREW CALIX MDExfay Time: 10:51:00 AM Study Type:Routine Echo Height: 64in Weight: 120lb BSA: 1.58 m2 Age: 7 1930,89Y Sex: MALE BP: 183/90 HR: 90 bpm Sonogrphr: ROSIE Mishra Pat. Stat.:[facility] Status:Final Echo Event ID:[id number] Order ID: [id number] Reason for Study:hx of TAVR History / [...] PA systolic pressure. MEASU REMENTS: 2DParasternal [place] Ao An 1.9 cm LVPWd 0.94 cm [...] LVOT CI 3.7 l/m/m2 Signed 12/01/2020 02:37 Anusha Magdaleno M.D. SARS-CoV-2 (COVID-19) RNA [Presence] in Respiratory sp ecimen by 2020-11-30 21:29:57 MARSHA with probe detection Test Item Value Reference Range Interpretation Comme nts SARS-CoV-2 (COVID-19) RNA [Presence] in Respiratory Not detected No t-Detected specimen by MARSHA with probe detection (test code = 67460-8) Whether patient is employed in a healthcare setting (test code = 07002-0) Whether the patient has symptoms related to condition of interest (test code = 49102-3) Patient was hospitalized because of this condition (test code = 52214-7) Whether the patient was admitted to intensive care unit (ICU) for condition of interest (test code = 72808-8) Whether patient resides in a congregate care setting (test code = 95555-8) CT Angiogram Pe [id number] 14:27:27Hm Interface, Radiology Results 11/30/2020 2:[address] ANGIOGRAM PE [...] can be performed if desired.*Bilateral bronchial wall thickening.*Constipation.[facility] Head Wo Contrast 2020-11-30 14:08:27Hm Interface, Radiology [...] mastoid air cells are clear.IMPRESSION:No acute intracranial abnormalities.[facility]-[id number] 12 kyoe5600-47-83 13:15:52 Test Item Value Reference Range Interpretation Comments Ventricular rate (test 75 code = 253) Atrial rate (test code = 75 255) IN interval (test code = 148 266) QRSD interval (test code 80 = 260) QT interval (test code = 390 264) QTC interval (test code = 435 265) P axis 1 (test code = 63 267) QRS axis 1 (test code = -43 268) T wave axis (test code = 63 270) EKG impression (test code Normal sinus = 273) rhythm-Left axis deviation-Abnormal ECG- [facility] ED Preliminary Interpretation - Not an [id number] 12:08:13Elliot Parkinson MD 12/06/2020 2:01 [facility] [place] [place] ED Preliminary Interpretation - Not an OrderPerformed by: Elliot Parkinson MDAuthorized by: Elliot Parkinson MD ECG reviewed by ED Physician in the absence of a supervisor fiber locking: yes Rate: ECG rate: 75 ECG rate assessment: normal Rhythm: Rhythm: sinus rhythm Ectopy: Ectopy: none QRS: QRS axis: Left QRS intervals: NormalConduction: Conduction: normal ST segments: ST segments: Non-specificT waves: T waves: normalUT [facility] leukocytes automated count (number/volume)2020-09-28 05:25:00 Test Item Value Reference Range Interpretation Comments White Blood Count (test code = 6690-2) 10.37 4.8-10.8 [facility] erythrocytes automated count (number/volume)2020-09-28 05:25:00 Test Item Value Reference Range Interpretation Comments Red Blood Count (test code = 789-8) 3.00 4.3-5.7 [facility] hemoglobin measurement (moles/volume)2020-09-28 05:25:00 Test Item Value Reference Range Interpretation Comments Hemoglobin (test code = 15121-2) 9.1 14.0-18.0 [facility] blood hematocrit (volume fraction)2020-09-28 05:25:00 Test Item Value Reference Range Interpretation Comments Hematocrit (test code = 4544-3) 26.0 38.2-49.6 [facility]Autom[facility] erythrocyte mean corpuscular ktrmzu4767-26-52 05:25:00 Test Item Value Reference Range Interpretation Comments Mean Corpuscular Volume (test code = 86.7 81-99 787-2) [facility] eryth[facility] mean corpuscular hemoglobin (mass per erythrocyte)2020-09-28 05:25:00 Test Item Value Reference Range Interpretation Comments Mean Corpuscular Hemoglobin (test code 30.3 28-32 = 785-6) [facility] erythrocyte mean corpuscular hemoglobin concentration measurement (mass/volume)2020-09-28 05:25:00 Test Item Value Reference Range Interpretation Comments Mean Corpuscular Hemoglobin Concent 35.0 31-35 (test code = 786-4) [facility] HospitalRDW AcpJs-Enf5606-73-01 05:25:00 Test Item Value Reference Range Interpretation Comments Red Cell Distribution Width (test code 16.1 11.7-14.4 = 28700-9) [facility]Autom[facility] blood platelet count (count/volume)2020-09-28 05:25:00 Test Item Value Reference Range Interpretation Comments Platelet Count (test code = 777-3) 253 140-360 [facility]Autom[facility] blood segmented neutrophil count as percentage of total vrztpyojiz2742-22-05 05:25:00 Test Item Value Reference Range Interpretation Comments Neutrophils (%) (Auto) (test code = 77.9 38.7-80.0 14447-0) [facility] lymphocyte count as percentage ot total prjtuxaqhs1316-05-96 05:25:00 Test Item Value Reference Range Interpretation Comments Lymphocytes (%) (Auto) (test code = 12.3 18.0-39.1 736-9) [facility]Autom[facility] blood monocyte count as percentage of total zkmaxrhwev3975-06-71 05:25:00 Test Item Value Reference Range Interpretation Comments Monocytes (%) (Auto) (test code = 6.4 4.4-11.3 5905-5) [facility] HospitalAutom[facility] blood eosinophil count as percentage of total rzkxsupfwl8686-42-65 05:25:00 Test Item Value Reference Range Interpretation Comments Eosinophils (%) (Auto) (test code = 1.8 0.0-6.0 713-8) [facility] HospitalAutomated blood basophil count as percentage of total esktwavayd3065-34-12 05:25:00 Test Item Value Reference Range Interpretation Comments Basophils (%) (Auto) (test code = 0.4 0.0-1.0 706-2) [facility] HospitalFluoroscopic procedure less than one hour dgwnvxdr5696-04-66 05:25:00 Test Item Value Reference Range Interpretation Comments IM GRANULOCYTES % (test code = IM 1.2 0.0-1.0 GRANULOCYTES %) [facility]Autom[facility] blood neutrophil count 2020-09-28 05:25:00 Test Item Value Reference Range Interpretation Comments Neutrophils # (Auto) (test code = 8.1 2.1-6.9 751-8) [facility] HospitalBlood lymphocytes count (number/volume) 2020-09-28 05:25:00 Test Item Value Reference Range Interpretation Comments Lymphocytes # (Auto) (test code = 1.3 1.0-3.2 61716-0) [facility] HospitalBlood monocytes automated count (number/volume)2020-09-28 05:25:00 Test Item Value Reference Range Interpretation Comments Monocytes # (Auto) (test code = 742-7) 0.7 0.2-0.8 [facility] HospitalAutom[facility] blood eosinophil count 2020-09-28 05:25:00 Test Item Value Reference Range Interpretation Comments Eosinophils # (Auto) (test code = 0.2 0.0-0.4 711-2) [facility] HospitalAutomated blood basophil count (count/volume)2020-09-28 05:25:00 Test Item Value Reference Range Interpretation Comments Basophils # (Auto) (test code = 704-7) 0.0 0.0-0.1 [facility] HospitalFluoroscopic procedure less than one hour lyazihka0254-76-14 05:25:00 Test Item Value Reference Range Interpretation Comments Absolute Immature Granulocyte (auto 0.12 0-0.1 (test code = Absolute Immature Granulocyte (auto) [facility] sodium measurement (moles/volume)2020-09-28 05:25:00 Test Item Value Reference Range Interpretation Comments Sodium Level (test code = 2951-2) 132 136-145 [facility] or plasma potassium measurement (moles/volume)2020-09-28 05:25:00 Test Item Value Reference Range Interpretation Comments Potassium Level (test code = 2823-3) 3.3 3.5-5.1 [facility] or plasma chloride measurement (moles/volume)2020-09-28 05:25:00 Test Item Value Reference Range Interpretation Comments Chloride Level (test code = 2075-0) 106 98-107 [facility]ano[facility]um or plasma carbon dioxide, total measurement (moles/volume)2020-09-28 05:25:00 Test Item Value Reference Range Interpretation Comments Carbon Dioxide Level (test code = -2027-9) [facility]ano[facility]um or plasma anion vxr6080-73-34 05:25:00 Test Item Value Reference Range Interpretation Comments Anion Gap (test code = 04551-5) 9.3 8-16 [facility]um or plasma urea nitrogen measurement (mass/volume)2020-09-28 05:25:00 Test Item Value Reference Range Interpretation Comments Blood Urea Nitrogen (test code = 18 7-26 3094-0) [facility] or plasma creatinine measurement (mass/volume)2020-09-28 05:25:00 Test Item Value Reference Range Interpretation Comments Creatinine (test code = 2160-0) 0.83 0.72-1.25 [facility] or plasma urea nitrogen/creatinine mass nssxr9147-81-14 05:25:00 Test Item Value Reference Range Interpretation Comments BUN/Creatinine Ratio (test code = 22 12-22 3097-3) [facility] HospitalEstimated glomerular filtration rate (GFR) xuddxbbryfeyc2338-46-98 05:25:00 Test Item Value Reference Range Interpretation Comments Estimat Glomerular > 60 See_Comment [Automat ed message] The Filtration Rate (test system which generated code = 658317307) this resul t transmitted reference range : 60-. The reference r duane was not used to int erpret this result as normal/abnormal . [facility] HospitalGlucose nzgpdkgkxlb0436-33-69 05:25:00 Test Item Value Reference Range Interpretation Comments Glucose Level (test code = BHM9272) 104 74-118 [facility] or plasma calcium measurement (mass/volume)2020-09-28 05:25:00 Test Item Value Reference Range Interpretation Comments Calcium Level (test code = 98264-8) 7.4 8.4-10.2 [facility]um or plasma total bilirubin measurement (mass/volume)2020-09-28 05:25:00 Test Item Value Reference Range Interpretation Comments Total Bilirubin (test code = 1975-2) 0.7 0.2-1.2 [facility] HospitalFluoroscopic procedure less than one hour rdmjjobe4861-62-04 05:25:00 Test Item Value Reference Range Interpretation Comments Aspartate Amino Transf (AST/SGOT) (test 74 5-34 code = Aspartate Amino Transf (AST/SGOT)) [facility]um or plasma alanine aminotransferase measurement (enzymatic activity/volume)2020-09-28 05:25:00 Test Item Value Reference Range Interpretation Comments Alanine Aminotransferase (ALT/SGPT) 107 0-55 (test code = 1742-6) [facility]um or plasma protein measurement (mass/volume)2020-09-28 05:25:00 Test Item Value Reference Range Interpretation Comments Total Protein (test code = 2885-2) 4.2 6.5-8.1 [facility] or plasma albumin measurement (mass/volume)2020-09-28 05:25:00 Test Item Value Reference Range Interpretation Comments Albumin (test code = 1751-7) 1.9 3.5-5.0 [facility] HospitalPlasma globulin measurement (mass/volume) 2020-09-28 05:25:00 Test Item Value Reference Range Interpretation Comments Globulin (test code = 55145-5) 2.3 2.3-3.5 [facility] or plasma albumin/globulin mass dwzsf7399-13-15 05:25:00 Test Item Value Reference Range Interpretation Comments Albumin/Globulin Ratio (test code = 0.8 0.8-2.0 1759-0) [facility] or plasma alkaline phosphatase measurement (enzymatic activity/volume)2020-09-28 05:25:00 Test Item Value Reference Range Interpretation Comments Alkaline Phosphatase (test code = 100 40-150 6768-6) [facility] HospitalTroponin I measurement by highly sensitive enzyme azalffpzipv0462-36-91 05:25:00 Test Item Value Reference Range Interpretation Comments Troponin I (test code = 33696-1) 0.109 0-0.300 [facility] HospitalCHEST SINGLE (PORTABLE)2020-09-26 10:41:00[facility] : 1930 Sex: M [place] [address] Patient Name: JUSTICE HARDY MR #: [id number] : 1930 Age/Sex: 89/M Req #: [id number] [facility] Physician: ZACHARIAH SAINI MD Ordered by: ARASH CASTORENA MD Report #: [id number] Location: MED/SURG Room/Bed: [facility] Procedure: [id number] DX/CHEST SINGLE (PORTABLE) Exam Date: 09/26/20 Exam [...] 10:48 AM Dictated By: SCHUYLER GUERRA MD Transcribed By: AYDEN on 09/26/201047 COPY TO: ARASH CASTORENA MDABDOMEN 2 VIEW 2020-09-26 09:13:00 [facility] : 1930 Sex: M [place] [address] Patient Name: JUSTICE HARDY MR #: [id number] : 1930 Age/Sex: 89/M Req #: [id number] Adm Physician: ZACHARIAH SAINI MD Ordered by: JEANNINE SAINI MD Report #: [id number] Location: MED/SURG Room/Bed: [facility] Procedure: [id number] DX/ABDOMEN 2 VIEW Exam Date: 09/26/20 Exam Time: 0615 REPORT STATUS: Signed Exam: KUB - 2 [...] Natriuretic Peptide (test code = 50.2 0-100 44434-6) [facility] or plasma amylase measurement (enzymatic activity/volume)2020-09-26 05:17:00 Test Item Value Reference Range Interpretation Comments Amylase Level (test code = 1798-8) 98 25-125 [facility] or plasma lipase measurement (enzymatic activity/volume)2020-09-26 05:17:00 Test Item Value Reference Range Interpretation Comments Lipase (test code = 3040-3) 98 8-78 [facility] HospitalABDOMEN 2 FPKW2029-25-17 23:59:00 [facility] : 1930 Sex: [place] [address] Patient Name: JUSTICE HARDY MR #: [id number] : 1930 Age/Sex: 89/M Req #: [id number] [facility] Physician: ZACHARIAH SAINI MD Ordered by: JEANNINE SAINI MD Report #: [id number] Location: MED/SURG Room/Bed: [facility] Procedure: [id number] DX/ABDOMEN 2 VIEW Exam Date: 09/24/20 Exam Time: 2330 REPORT STATUS: Signed EXAM: Abdomen Radiograph 2 View(s) INDICATION: bloody stool 20200924 89 Y COMPARISON: 09/15/2019 FINDINGS: Prosthetic heart [...] levels are seen in the right hemiabdomen. Norman lucency in the upper abdomen on the upright view projecting over the T12 vertebral body , likely represents pneumoperitoneum IMPRESSION: 1. Overall appearance of postsurgical ileus with diffuse mildly dilated small bowel and distended air distended colon to the level of the rectum. Distal obstruction is not excluded. Recommend radiographic follow-up until resolution. 2. Norman lucency projecting over the T12 vertebral body may represent pneumoperitoneum as seen on recent chest CT, possibly related to recent surgery. Signed by: Patricia Wheat MD on 09/25/2020 12:48 AM Dictated By: TIESHA WHEAT MD Transcribed By: AYDEN on 09/25/2047 COPY TO: JEANNINE SAINI MDSerum or plasma magnesium measurement (mass/volume)2020-09-23 16:40:00 Test Item Value Reference Range Interpretation Comments Magnesium Level (test code = 99500-2) 1.5 1.3-2.1 [facility] HospitalFluoroscopic procedure less than one hour wpoqihyn1936-95-91 08:51:00 Test Item Value Reference Range Interpretation Comments Differential Total Cells Counted (test 100 code = Differential Total Cells Counted) [facility] HospitalManual blood neutrophils/100 leukocytes 2020-09-22 08:51:00 Test Item Value Reference Range Interpretation Comments Neutrophils % (Manual) (test code = 86 40-74 87778-1) [facility] HospitalManual blood band neutrophils form/100 pkxsyocrmg1924-62-84 08:51:00 Test Item Value Reference Range Interpretation Comments Band Neutrophils % (test code = 764-1) 0 [facility] lymphocytes/100 leukocytes 2020-09-22 08:51:00 Test Item Value Reference Range Interpretation Comments Lymphocytes % (Manual) (test code = 7 19-48 737-7) [facility] HospitalManual blood monocytes/100 leukocytes 2020-09-22 08:51:00 Test Item Value Reference Range Interpretation Comments Monocytes % (Manual) (test code = 7 3.4-9.0 744-3) [facility] HospitalAutomated reticulocyte count as percentage of total lajriwdobnoc4286-88-32 05:15:00 Test Item Value Reference Range Interpretation Comments Percent Reticulocyte Count (test code = 1.5 0.8-2.2 41979-4) [facility] or plasma iron measurement (mass/volume)2020-09-21 05:15:00 Test Item Value Reference Range Interpretation Comments Iron Level (test code = 2498-4) 26 65-175 [facility]anoerum or plasma iron binding capacity measurement (mass/volume)2020-09-21 05:15:00 Test Item Value Reference Range Interpretation Comments Total Iron Binding Capacity (test code 193 261-025 = 2500-7) [facility]anoerum or plasma iron saturation measurement (mass fraction)2020-09-21 05:15:00 Test Item Value Reference Range Interpretation Comments Percent Iron Saturation (test code = 13 15-50 6352-3) [facility] transferrin measurement (mass/volume)2020-09-21 05:15:00 Test Item Value Reference Range Interpretation Comments Transferrin (test code = 3034-6) 138 174-364 [facility] (mass/volume)2020-09-21 05:15:00 Test Item Value Reference Range Interpretation Comments Vitamin B12 Level (test code = 81810-8) 592 460-759 [facility] plasma folate measurement (mass/volume)2020-09-21 05:15:00 Test Item Value Reference Range Interpretation Comments Folate (test code = 2284-8) 17.8 >3.0 [facility] [id number] 21:42:00 [facility] 1930 Sex: [place] [address] Patient Name: JUSTICE HARDY MR #: [id number] : 1930 Age/Sex: 89/M Req #: [id number] Adm Physician: ZACHARIAH SAINI MD Ordered by: AJ FLYNN DO Report #: [id number] Location: MED/SURG Room/Bed: [facility] Procedure: [id number] CT/CT CHEST W Exam Date: 09/20/20 Exam Time: 2114 REPORT STATUS: Signed EXAM: CT Chest WITH contrast 09/20/2020 9:15 PM INDICATION: PE [id number] 2114 COMPARISON: None TECHNIQUE: Chest was scanned [...] 10:00 PM Dictated By: HOLLI HESTER MD 2200 Transcribed By: AYDEN on 09/20/202199 COPY TO: AJ FLYNN DO Phosphorus [id number] 03:45:00 Test Item Value Reference Range Interpretation Comments Phosphorus Level (test code = EPV9513) 0.8 2.3-4.7 [facility] SINGLE (PORTABLE)2020-09-17 15:26:00[facility] : 1930 Sex: [place] [address] Patient Name: JUSTICE HARDY MR #: [id number] : 1930 Age/Sex: 89/M Req #: [id number] Adm Physician: ZACHARIAH SAINI MD Ordered by: ZACHARIAH SAINI MD Report #: [id number] Location: ICU Room/Bed: [place] [address] Procedure: [id number] DX/CHEST SINGLE (PORTABLE) Exam Date: 09/17/20 Exam Time: 1450 REPORT STATUS: Signed EXAMINATION: CHEST SINGLE (PORTABLE) INDICATION: SOB, tachypnea [id number] 1450 COMPARISON: Prior x-rays including most recent [...] CRUM MD 10 Transcribed By: AYDEN on 09/17/20 161 COPY TO: ZACHARIAH SAINI MD Prothrombin time (PT) in platelet poor plasma by coagulation [id number] 10:55:00 Test Item Value Reference Range Interpretation Comments Prothrombin Time (test code = 5902-2) 16.5 11.9-14.5 [facility] Platelet poor plasma by Coagulation [id number] 10:55:00 Test Item Value Reference Range Interpretation Comments Prothromb Time International Ratio 1.25 (test code = 6301-6) [facility] LINE [id number] 20:57:00[facility] : 1930 Sex: M [place] [address] Patient Name: JUSTICE HARDY MR #: [id number] : 1930 Age/Sex: 89/M Req #: [id number] Adm Physician: ZACHARIAH SAINI MD Ordered by: ZACHARIAH SAINI MD Report #: [id number] Location: ICU Room/Bed: [place] [address] Procedure: [id number] DX/CHEST XRAY LINE PLACEMENT Exam Date: 09/16/20 [...] AYDEN on 09/16/202101 COPY TO: [facility]I [facility]2020-09-15 14:55:00 [facility] : 1930 Sex: [place] [address] Patient Name: JUSTICE HARDY MR #: [id number] : 1930 Age/Sex: 89/M Req #: [id number] Adm Physician: ZACHARIAH SAINI MD Ordered by: DHARMESH LINARES MD Report #: [id number] cation: MED/SURG Room/Bed: [facility] Procedure: [id number] DX/CHEST SINGLE (PORTABLE) Exam Date: 09/15/20 Exam [...] AYDEN on 09/15/201456 COPY TO: DHARMESH LINARES [facility] ACUTE SERIES W/PA CXR 2020-09-15 10:17:00 [facility] : 1930 Sex: [place] [address] Patient Name: JUSTICE HARDY MR #: [id number] : 1930 Age/Sex: 89/M Req #: [id number] Adm Physician: ZACHARIAH SAINI MD Ordered by: DHARMESH LINARES MD Report #: [id number] Lo cation: MED/SURG Room/Bed: [facility] Procedure: [id number] DX/ABDOMEN ACUTE SERIES W/PA CXR Exam Date: 09/15/20 Exam Time: 944 REPORT STATUS: Signed EXAMINATION: ABDOMEN ACUTE SERIES [...] 4.2 cm. No free air. Signed by: Jesika Schultz 09/15/2020 10:20 AM Dictated By: SCHUYLER GUERRA MD 1020 Transcribed By: AYDEN on 09/15/20 1020 COPY TO: DHARMESH LINARES MDABDOMEN ACUTE SERIES W/PA [id number] 10:50:00 [facility] JUSTICE HARDY : 1930 Sex: M [facility] [address] [place] [address] Patient Name: JUSTICE HARDY MR #: [id number] : 1930 Age/Sex: 89/M Req #: [id number] Adm Physician: ZACHARIAH SAINI MD Ordered by: DHARMESH LINARES MD Report #: [id number] Lo cation: MED/SURG Room/Bed: [facility] Procedure: [id number] DX/ABDOMEN ACUTE SERIES W/PA CXR Exam Date: 09/14/20 Exam Time: 1020 REPORT STATUS: Signed X-ray abdomen acute series with 2 views of the abdomen and a single view of the chest INDICATION: sbo [id number] 1020 Comparison: X-ray dated 09/14/2019. Discussion: Lungs [...] 10:52 AM Dictated By: OSMIN CASTLE MD 51 Transcribed By: AYDEN on 09/14/201051 COPY TO: DHARMESH LINARES MDSerum or plasma creatine kinase measurement (enzymatic activity/volume)2020-09-13 11:24:00 Test Item Value Reference Range Interpretation Comments Creatine Kinase (test code = 2157-6) 385 30-200 [facility] or plasma creatine kinase MB measurement (mass/volume)2020-09-13 11:24:00 Test Item Value Reference Range Interpretation Comments Creatine Kinase MB (test code = 2.90 0-5.0 12087-4) [facility] 2 [id number] 09:26:00 [facility] : 1930 Sex: M [place] [address] Patient Name: JUSTICE HARDY MR #: [id number] : 1930 Age/Sex: 89/M Req #: [id number] Adm Physician: ZACHARIAH SAINI MD Ordered by: SHANNAN CERVANTES MD Report #: [id number] Location: MED/SURG Room/Bed: [facility] Procedure: [id number] DX/ABDOMEN 2 VIEW Exam Date: 09/13/20 Exam [...] code = Lactic 0.7 0.5-2.0 Acid Level) [facility] less than one hour [id number] 19:02:00 Test Item Value Reference Range Interpretation Comments Coronavirus (PCR) (test code = NOT DETECTED NOTDETECTED Coronavirus (PCR)) [facility]PEL WO [id number] 17:30:00[facility] : 1930 Sex: M [place] [address] [place] [address] Patient Name: JUSTICE HARDY MR #: [id number] : 1930 Age/Sex: 89/M Req #: [id number] Adm Physician: Ordered by: SHANNAN CERVANTES MD Report #: [id number] Location: [facility] Room/Bed: Procedure: [id number] HOPD/CT ABD/PEL WO CONTRAST-HOPD Exam Date: 09/12/20 Exam Time: 1657 REPORT STATUS: Signed EXAM: CT Abdomen and Pelvis WITHOUT contrast INDICATION: abd pain, nausea, retching 20200912 COMPARISON: CT abdomen and pelvis on 03/02/2020. [...] 09/12/201744 COPY TO: SHANNAN CERVANTES MDCT ABDOMEN/PELVIS [id number] 15:20:00 [place] [address] Patient Name: JUSTICE HARDY MR #: [id number] : 1930 Age/Sex: 89/M Req #: [id number] Adm Physician: Mario boyd by: JEANNINE SAINI MD Report #: [id number] Location: CT Room/Bed: Procedure: [id number] CT/CT ABDOMEN/PELVISWO Exam Date: 03/02/20 Exam Time: [...]
[2021-01-08 23:50] LABS: Absolute Lymphocytes (CBC) 2.1 K/uL (0.7-4.9); Basophils % 1.3 % (0-1.3); Hematocrit 39.4 % (39.6-49.0); Lymphocytes % 31.1 % (15.3-44.8); MPV 8.7 fL (7.6-11.3)
[2021-01-09 00:14] LABS: ALT/SGPT 30 U/L (12-78); AST/SGOT 26 U/L (15-37); Albumin 3.3 g/dL (3.4-5.0); Alkaline Phosphatase 74 U/L (45-117); BUN Blood Urea Nitrogen 19 mg/dL (7-18); Bicarbonate 26 mmol/L (21-32); Bilirubin Direct 0.1 mg/dL (0-0.2); Bilirubin Total 0.5 mg/dL (0.2-1.0); Glucose Level 90 mg/dL (74-106); Magnesium 2.3 mg/dL (1.8-2.4); NT PRO-BNP 476 pg/mL (<450); Potassium 4.1 mmol/L (3.5-5.1); Protein, Total 7.2 g/dL (6.4-8.2); Sodium Level 138 mmol/L (136-145); Troponin (Emerg Dept Use Only) < 0.02 ng/mL (0.0-0.045)
[2021-01-09] MEDS ORDERED: cloNIDine HCL 0.1 MG TAB ONE (01:32)
[2021-01-09] MEDS ORDERED: TRAMADOL HCL 50 MG TAB ONE (01:38)
[2021-01-09 01:40] LABS: Protime INR 1.19
--- NOTE | 2021-01-09 02:17 | ER ---
Nurse's Notes [facility] Name: Benito Castaneda Age: 89 yrs Sex: Male : 1930 Arrival Date: 01/08/2021 Time: 22:48 Bed 18 Private MD: Diagnosis: Essential (primary) hypertension;Headache Presentation: 01/08 22:55 Chief complaint: EMS states: c/o high BP and headache that started at noon, checked it em at home and it was 222/95, pt is also taking elliquis for a blood clot in the right leg. Coronavirus screen: Client denies travel out of the [place] in the last 14 days. Ebola Screen: Patient negative for fever greater than or equal to 101.5 degrees Fahrenheit, and additional compatible Ebola Virus Disease symptoms Patient denies exposure to infectious person. Patient denies travel to an Ebola-affected area in the 21 days before illness onset. No symptoms or risks identified at this time. Initial Sepsis Screen: Does the patient meet any 2 criteria? No. Patient's initial sepsis screen is negative. Does the patient have a suspected source of infection? No. Patient's initial sepsis screen is negative. Risk Assessment: Do you want to hurt yourself or someone else? Patient reports no desire to harm self or others. Onset of symptoms was January 08, 2021. 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 - Social history:: Smoking status: Patient denies any tobacco usage or history of. Screenin:46 Abuse screen: Denies threats or abuse. Denies injuries from another. Nutritional jm8 screening: No deficits noted. Tuberculosis screening: No symptoms or risk factors identified. Fall Risk None identified. Assessment: 23:45 General: Appears in no apparent distress. comfortable, Behavior is calm, cooperative, jm8 appropriate for age. Pain: Denies pain. Neuro: No deficits noted. Level of Consciousness is awake, alert, obeys commands, Oriented to person, place, time. Cardiovascular: Reports high blood pressure Patient's skin is warm and dry. Respiratory: No deficits noted. Airway is patent Trachea midline Respiratory effort is even, unlabored, Respiratory pattern is regular, symmetrical. GI: No deficits noted. No signs and/or symptoms were reported involving the gastrointestinal system. : No deficits noted. No signs and/or symptoms were reported regarding the genitourinary system. EENT: No deficits noted. No signs and/or symptoms were reported regarding the EENT system. Derm: No deficits noted. No signs and/or symptoms reported regarding the dermatologic system. Musculoskeletal: No deficits noted. No signs and/or symptoms reported regarding the musculoskeletal system. Vital Signs: 22:55 BP 200 / 83; Pulse 63; Resp 16; Temp 97.7(O); Pulse Ox 99% on R/A; Weight 56.25 kg; em Height 5 ft. 4 in. (162.56 cm); Pain 11/06; 01/09 01:04 BP 210 / 82; Pulse 71; Resp 16; Pulse Ox 99% on R/A; jm8 01:40 BP 204 / 79; jm8 02:39 BP 184 / 100; Pulse 77; Resp 16; Pulse Ox 100% on R/A; jm8 01/08 22:55 Body Mass Index 21.28 (56.25 kg, 162.56 cm) em ED Course: 01/08 22:48 Patient arrived in ED. mw2 22:59 Triage completed. em 22:59 Arm band placed on. em 23:12 Marinas, Jun, SAEID is PHCP. pm1 23:12 Anoop Erickson MD is Attending Physician. pm1 23:27 Head Brain Wo Cont CT In Process Unspecified. EDMS 23:46 Patient has correct armband on for positive identification. Bed in low position. Call jm8 light in reach. Side rails up X2. Adult w/ patient. 23:46 Inserted saline lock: 22 gauge in right antecubital area, using aseptic technique. jm8 23:47 XRAY Chest (1 view) In Process Unspecified. EDMS 07 02:39 No provider procedures requiring assistance completed. IV discontinued, intact, jm8 bleeding controlled, No redness/swelling at site. Administered Medications: 01:13 Drug: cloNIDine 0.1 mg Route: PO; jm8 02:40 Follow up: Response: No adverse reaction jm8 01:20 Drug: traMADol 50 mg Route: PO; jm8 02:40 Follow up: Response: No adverse reaction 8 Outcome: 02:16 Discharge ordered by MD. pm1 02:39 Discharged to home ambulatory, with family. jm8 02:39 Condition: good 02:39 Discharge instructions given to patient, family, Instructed on discharge instructions, follow up and referral plans. medication usage, Demonstrated understanding of instructions, follow-up care, medications. 02:39 Patient left the ED. jm8 Signatures: Dispatcher [employer] Angel Iniguez, BERYL CORDOBA Jun Frank NP MATERIALS TECHNICIAN pm1 Marya Hollis mw2 Yandel Ferrer RN RN barb
--- NOTE | 2021-01-09 02:17 | EDPHYS ---
Physician Documentation [facility] Name: Benito Castaneda Age: 89 yrs Sex: Male : 1930 Arrival Date: 01/08/2021 Time: 22:48 Bed 18 Private MD: ED Physician Anoop Erickson HPI: 01/08 22:59 This 89 yrs old Male presents to ER via EMS with complaints of High Blood pm1 Pressure. 22:59 The patient has elevated blood pressure and discovered this at home. Onset: The pm1 symptoms/episode began/occurred today. Modifying factors: The symptoms are aggravated by nothing, The symptoms are alleviated by nothing. Associated signs and symptoms: Pertinent positives: headache, Pertinent negatives: chest pain, dizziness, dyspnea, nausea, vomiting, weakness. Severity of symptoms: in the emergency department the blood pressure is unchanged. The patient has experienced similar episodes in the past, a few times. The patient has not recently seen a physician, the patient's primary care provider is Dr. Johnson. 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 - Social history:: Smoking status: Patient denies any tobacco usage or history of. ROS: 22:59 Constitutional: Negative for fever, chills, and weight loss. pm1 22:59 Cardiovascular: Negative for chest pain, palpitations, and edema, Respiratory: Negative for shortness of breath, cough, wheezing, and pleuritic chest pain, Abdomen/GI: Negative for abdominal pain, nausea, vomiting, diarrhea, and constipation, Back: Negative for injury and pain, MS/Extremity: Negative for injury and deformity, Skin: Negative for injury, rash, and discoloration. 22:59 Neuro: Positive for headache, Negative for dizziness, numbness, tingling, weakness. 22:59 All other systems are negative. Exam: 22:59 Constitutional: This is a well developed, well nourished patient who is awake, alert, pm1 and in no acute distress. Head/Face: Normocephalic, atraumatic. 22:59 Back: No spinal tenderness. No costovertebral tenderness. Full range of motion. Skin: Warm, dry with normal turgor. Normal color with no rashes, no lesions, and no evidence of cellulitis. 22:59 Eyes: Exam is negative for acute changes, Periorbital structures: appear normal, Pupils: no acute changes, Extraocular movements: intact throughout, Conjunctiva: no acute changes, no injection. 22:59 ENT: Mouth: Lips: normal, Oral mucosa: normal, pink and intact, moist. 22:59 Cardiovascular: Rate: normal, Rhythm: regular, Pulses: no pulse deficits are appreciated. 22:59 Respiratory: Exam negative for acute changes, respiratory distress, shortness of breath, Breath sounds: are clear throughout. 22:59 Musculoskeletal/extremity: Exam is negative for acute changes, Extremities: all appear grossly normal, with no appreciated pain with palpation. 22:59 Neuro: Exam negative for acute changes, Orientation: is normal, Mentation: is normal, Motor: is normal, moves all fours, Sensation: is normal, no obvious gross deficits. Vital Signs: 22:55 BP 200 / 83; Pulse 63; Resp 16; Temp 97.7(O); Pulse Ox 99% on R/A; Weight 56.25 kg; em Height 5 ft. 4 in. (162.56 cm); Pain 5/10; 01/09 01:04 BP 210 / 82; Pulse 71; Resp 16; Pulse Ox 99% on R/A; jm8 01:40 BP 204 / 79; jm8 02:39 BP 184 / 100; Pulse 77; Resp 16; Pulse Ox 100% on R/A; jm8 01/08 22:55 Body Mass Index 21.28 (56.25 kg, 162.56 cm) em MDM: 01/08 23:24 Patient medically screened. [facility] 01/09 01:16 Data reviewed: vital signs. Data interpreted: Pulse oximetry: on room air is 99 %. pm1 Interpretation: normal. Counseling: I had a detailed discussion with the patient and/or guardian regarding: the historical points, exam findings, and any diagnostic results supporting the discharge/admit diagnosis, lab results, radiology results, the need for outpatient follow up, to return to the emergency department if symptoms worsen or persist or if there are any questions or concerns that arise at home. 01:16 Special discussion: I have referred the patient to see his PCP for further evaluation pm1 of high blood pressure. 02:17 ED course: Patient with blood pressure readings in the same range on 12/30/2020 ER visit. pm1 Instructed patient to follow up with his PCP for further management of his blood pressure.. 01/08 22:58 Order name: Basic Metabolic Panel; Complete Time: 00:26 2 01/08 22:58 Order name: CBC with Diff; Complete Time: 00:26 2 01/08 22:58 Order name: LFT's; Complete Time: 00:26 2 01/08 22:58 Order name: Magnesium; Complete Time: 00:26 mw2 01/08 22:58 Order name: NT PRO-BNP; Complete Time: 00:26 2 01/08 22:58 Order name: PT-INR; Complete Time: 01:42 2 01/08 22:58 Order name: Troponin (emerg Dept Use Only); Complete Time: 00:26 mw2 01/08 22:58 Order name: XRAY Chest (1 view) [facility] 01/08 22:58 Order name: EKG; Complete Time: 22:59 2 01/08 22:58 Order name: Cardiac monitoring; Complete Time: 23:58 2 01/08 22:58 Order name: EKG - Nurse/Tech; Complete Time: 23:58 2 01/08 22:58 Order name: Head Brain Wo Cont CT [facility] 01/08 22:58 Order name: IV Saline Lock; Complete Time: 23:45 2 01/08 22:58 Order name: Labs collected and sent; Complete Time: 23:45 mw2 01/08 22:58 Order name: O2 Per Protocol; Complete Time: 23:45 mw2 01/08 22:58 Order name: O2 Sat Monitoring; Complete Time: 23:45 mw2 Administered Medications: 01:13 Drug: cloNIDine 0.1 mg Route: PO; jm8 02:40 Follow up: Response: No adverse reaction 8 01:20 Drug: traMADol 50 mg Route: PO; 8 02:40 Follow up: Response: No adverse reaction 8 Disposition: 13:20 Co-signature as Attending Physician, Anoop Erickson MD I agree with the assessment and iram plan of care. Disposition Summary: 01/09/21 02:16 Discharge Ordered Location: Home pm1 Problem: new pm1 Symptoms: have improved pm1 Condition: Stable pm1 Diagnosis - Essential (primary) hypertension pm1 - Headache pm1 Followup: pm1 - With: Emergency Department - When: As needed - Reason: Worsening of condition Followup: pm1 - With: Private Physician - When: 2 - 3 days - Reason: Recheck today's complaints, Continuance of care, Re-evaluation by your physician Discharge Instructions: - Discharge Summary Sheet pm1 - General Headache Without Cause pm1 - Hypertension, Adult pm1 - How to Take Your Blood Pressure, Timp-cf-Fmsb pm1 - DASH Eating Plan pm1 - Managing Your Hypertension pm1 Forms: - Medication Reconciliation Form pm1 - Thank You Letter pm1 - Antibiotic Education pm1 - Prescription Opioid Use pm1 Signatures: Dispatcher [employer] Anoop Perez MD MD cha Munoz, Edgar, RN Jun Palma NP JEWELRY MECHANIC pm1 Marya Hollis mw2 Yandel Ferrer RN RN jm8
[2021-01-09 02:44] VITALS: TEMP 97.7
[2021-01-09 02:50] VITALS: BP 184/100; O2SAT 100
--- NOTE | 2021-01-09 07:51 | RAD REPORT ---
EXAM DESCRIPTION: aPdmini Single View01/08/2021 11:47 pm CLINICAL HISTORY: Chest pain COMPARISON: 2007 FINDINGS: The lungs appear clear of acute infiltrate. The heart is mildly enlarged. Postsurgical changes involve the chest. The prominence of the superior mediastinum could be secondary to tortuous vessels or substernal thyroid IMPRESSION: No acute abnormalities displayed
--- NOTE | 2021-01-09 19:15 | EKG ---
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
--- NOTE | 2021-01-10 17:42 | RAD REPORT ---
EXAM DESCRIPTION: CT - Head Brain Wo Cont - 01/09/2021 6:54 am CLINICAL HISTORY: Headache COMPARISON: None. TECHNIQUE: Head/brain axial images acquired without contrast. Coronal and sagittal reformats created . Exam performed according to departmental dose-optimization program which includes automated exposur e control, adjustment of mA and/or kV according to patient size, and/or use of iterative reconstructi on technique. FINDINGS: Evaluation more difficult due to patient's motion artifact. No midline shift, mass effect, intracranial hemorrhage, or hydrocephalus. Small round hypodense lesion in left cerebellar hemisphere (axial series 201, image 13; coronal serie s 202, image 48) more likely represents old infarct. Minimal hypodense periventricular cerebral white matter abnormality. Moderate, bilateral, globus pallidus calcifications. CSF spaces appear overall mildly enlarged likely representing age-appropriate cerebral volume loss. Paranasal sinuses clear. Mastoid air cells clear. No skull fracture or significant skull lesion. Calcified atherosclerotic intracranial internal carotid and vertebral arteries. IMPRESSION: 1. No CT evidence of acute intracranial abnormality. 2. Other findings described above. Electronically signed by: Walter Mauro MD 01/09/2021 12:09 AM CDT Due to temporary technical issues with the PACS/Fluency reporting system, reports are being signed by the in house radiologists without review as a courtesy to insure prompt reporting. The interpreting radiologist is fully responsible for the content of the report.
== END 2021-01-09 02:39 | disposition home or self-care (01) ==
LOC: ER 22:45
DX: I10 Essential (primary) hypertension (principal); Z79.01 Long term (current) use of anticoagulants; Z86.73 Personal history of transient ischemic attack (TIA), and cerebral infarction without residual deficits; Z88.8 Allergy status to other drugs, medicaments and biological substances; Z95.818 Presence of other cardiac implants and grafts; Z95.4 Presence of other heart-valve replacement
CPT/HCPCS: 36415; 70450; 71045; 80048; 80076; 83735; 83880; 84484; 85025; 85610; 93005; 99284

== ENCOUNTER 2021-02-27 22:16 | Emergency (ER) | payer OTHER, BC ==
--- OUTSIDE RECORDS SUMMARY | 2021-02-27 22:22 | XMS REPORT | Continuity of Care Document ---
:1930 Author Organization [facility] t Address [address] [place] [address] Care Team Providers Name Role Phone NONSTAFF Primary Care Physician Unavailable Osmel Fowler MD. Attending Clinician Fifi GARCIA, O. Attending Clinician MD FIFI O. Attending Clinician Unavailable Ivory Whaley Attending Clinician Iggy GARCIA Attending Clinician SAINI Attending Clinician Unavailable SAINI Attending Clinician Unavailable FIFI Admitting Clinician Unavailable MD FIFI O. Admitting Clinician Unavailable SAINI Admitting Clinician Unavailable Payers Payer Name Policy Type Policy Effective Date Expiration Date Sour ce Number MEDICAREMEDICARE PART [id number] 1996 Al edith A AND 00:00:00 [facility] [id number] 1996[place] [id number] 2015 [employer] PPO/FEDERAL EMPL 00:00:00 [facility] [id number] 2015- PresentPPO DEPT OF [id number] 2017 Sharon[place] t AFFAIRSDEPT OF 00:00:00 [facility] [id number]/2017-PresentMilita ry [facility] [id number] [address] [facility] [address] [employer] Employees 00:00[facility] Medicare A & B [id number] [address] 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 Added automatic ally from request for surgery [id number] Small Problem Active [facility] St. bowel [facility] - obstructio Patien t n [facility] Nausea Problem Active [facility] Patient [facility] Hypomagnes Problem Active [facility] S t. emia [facility] Leukocytos Problem Active [facility] S t. is [facility] Hypertensi Problem Active [facility] S t. 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 pain [facility] Allergies, Adverse Reactions, Alerts Allergy Allergy Status Severity Reaction(s) Onset Inactive Treating Comm ents Source Name Type Date Date Clinician Diphenhy Propensi Active Itching Pt states Me thodi dramine ty to 02-[address] Hcl adverse 00:00: him Hospita reaction 00 anxious l s to and itch drug Doxazosi Propensi Active Other (See Unknown M ethodi n ty to Comments) 11-30 reaction, st adverse 00:00: patient Hospita reaction 00 daughter l s to confirmed drug allergy with patients cardiolog ist. Iodine Propensi Active Hives Methodi And ty to 11-30 st Iodide adverse 00:00: Hospita Containi reaction 00 l ng s to Products drug Atorvast Propensi Active Other (See Unknown M ethodi atin ty to Comments) 11-30 reaction, st adverse 00:00: patient Hospita reaction 00 daughter l s to confirmed drug allergy with patients cardiolog ist. Iodine Allergy [facility] Doxazosi Allergy Active 2018-[address] [facility] [facility] Family History Family Member Diagnosis Comments Start Date Stop Date Source Natural brother Heart disease [facility] father Heart disease [facility] Natural father Hypertension [facility] Natural mother Alzheimer's disease [facility] Natural sister Other [facility] Social History Social Habit Start Date Stop Date Quantity Comments Source History of tobacco Current smoker [facility] Hospital Cigarettes smoked 2021-02-20 2021-02-20 [facility] current (pack per 00:00:00 00:00:00 Hospita l day) - Reported Cigarette 2021-02-20 2021-02-20 [employer] pack-years 00:00:00 00:00:00 Hospital Tobacco use and 2021-02-20 2021-02-20 Never used [employer] exposure 00:00:00 00:00:00 Hospital Alcohol intake 2021-02-20 2021-02-20 Current drinker [facility] dist 00:00:00 00:00:00 [facility] Hospital (finding) Alcohol Comment 2017-12-10 2017-12-10 oc[facility]ional [employer] 00:00:00 00:00:00 Hospital Sex Ass[birth year] At [birth year] [employer] 00:00:00 00:00:00 Hospital Smoking Status Start Date Stop Date Source Former smoker 2021-02-20 00:00:00 2021-02-20 00:00:00 [facility] Medications Ordered Filled Start Stop Current Ordering Indication Dosage Frequency Signature Comments Components Source Medication Medication Date Date Medication? Clinician (SIG) Name Name latonia 2020- Yes 30598U Q7D Take 1 M ethodi rol 02-[address] (VITAMIN 00:00: 04:59 (50,000 Hospi ta D2) 50,000 00 :00 Units l unit total) by capsule mouth once a week for 30 days. ascorbic 2020- Yes 500mg QD Take 1 Metho di acid, 02-[address] vitamin C, 00:00: 04:59 (500 mg Hos peter (VITAMIN C) 00 :00 total) by l 500 MG mouth tablet daily for 30 days. vitamin E 2020- Yes 400U QD Take 1 Metho di 400 UNIT 02-[address] capsule 00:00: 04:59 (400 Units Hos peter 00 :00 total) by l mouth daily for 30 days. apixaban Yes 2.5mg Q.5D Take 2.5 Meth marcella (ELIQUIS) 8-[address] 2.5 mg 18:24: mouth 2 Hospita tablet 21 (two) l times a day. Indication : DVT, pulmonary embolism. finasteride Yes 5mg QD Take 5 mg M ethodi (PROSCAR) 5 8-[address] mg tablet 18:24: daily. Hospit a 21 l carvediloL Yes 25mg Q.5D Take 25 mg M ethodi (COREG) 25 8-[address] MG tablet 18:24: (two) Hospita 21 times a l day with meals. tamsulosin Yes .4mg Q.5D Take 0.4 Met hodi (FLOMAX) 8-[address] 0.4 mg 18:24: mouth 2 Hospita capsule 21 (two) l times a day. lisinopriL Yes 10mg Q.5D Take 10 mg M ethodi (PRINIVIL) 8-[address] 10 mg 18:24: (two) Hospita tablet 21 times a l day. ipratropium Yes 1{spray 1 spray Methodi (ATROVENT) - } into each st 21 mcg 18:24: nostril as Hospi ta (0.03 %) 21 needed for l nasal spray rhinitis. sucralfate 0 Yes 1g Q.25D Take 1 g Me thodi (CARAFATE) 8-[address] 1 gram 18:24: (four) Hospita tablet 21 times a l day. Patient takes differentl y: 1g by mouth as needed albuterol 2020- Yes 2{puff} Q.25D Inhale 2 Methodi (PROAIR 02-[address] HFA) 90 00:00: 04:59 every 4 Hospit a mcg/actuati 00 :00 (four) l on inhaler hours while awake for 30 days. famotidine 2020- Yes 20mg Q.5D Take 1 Meth marcella (PEPCID) 20 02-23 tablet (20 s t MG tablet 00:00: 04:59 mg total) Ho spita 00 :00 by mouth 2 l (two) times a day for 30 days. dexamethaso 2020- Yes 6mg QD Take 1 Met hodi ne 02-23 tablet (6 st (DECADRON) 00:00: 04:59 mg total) H ospita 6 MG tablet 00 :00 by mouth l daily with breakfast for 7 days. azithromyci 2020- Yes 500mg QD Take 2 Me thodi n 02-[address] (Zithromax) 00:00: 04:59 (500 mg Ho spita 250 MG 00 :00 total) by l tablet mouth daily for 4 days. lisinopriL 2020- No 10mg Q.5D Take 10 mg Methodi (PRINIVIL) 02-[address] 5 mg tablet 19:10: 00:00 (two) Hosp haresh 33 :00 times a l day. psyllium 2020- No 1{scoop QD Take 1 Met hodi seed, with 02-20 08-24 } Scoop by st dextrose, 13:06: 00:00 mouth Hospit a (FIBER 33 :00 nightly as l ORAL) needed. clonIDINE 2020- No .1mg Q.5D Take 0.1 Met hodi (CATAPRES) 02-20 08-[address] 0.1 MG 13:05: 00:00 mouth 2 Hospita tablet 55 :00 (two) l times a day. tamsulosin 2020- No .4mg QD Take 0.4 Me thodi (FLOMAX) 12-04- mg by st 0.4 mg 20:23: 00:00 mouth Hospita capsule 43 :00 daily. l tamsulosin 2020- No .4mg Q.5D Take 1 Meth marcella (FLOMAX) 12-[address] 0.4 mg 00:00: 04:59 (0.4 mg Hospita capsule 00 :00 total) by l mouth 2 (two) times a day for 30 days. levoFLOXaci 2020- No 500mg QD Take 1 Me thodi n 12-[address] (Levaquin) 00:00: 04:59 (500 mg Hos peter 500 MG 00 :00 total) by l tablet mouth daily [place] 4 [place] [id number] 50mg Q6H Take 50 mg M ethodi (ULTRAM) 50 12-[address] mg tablet 01:42: 00:00 every 6 Hosp haresh 31 :00 (six) l hours as needed for moderate pain .acute pain. aspirin No 81mg QD Take 1 Methodi (ECOTRIN) 01-15 tablet (81 st 81 MG 00:00: 00:00 mg total) Hospit a enteric 00 :00 by mouth l coated daily. tablet eszopiclone 2020- No 2mg QD Take 2 mg Methodi (LUNESTA) 2 08-[address] MG tablet 00:00: 00:00 nightly as H ospita 00 :00 needed for l sleep. omeprazole 2020- No 40mg QD Take 40 mg Methodi (PriLOSEC) 07-[address] 40 MG 00:00: 00:00 daily. Hospita capsule 00 :00 l amLODIPine 2020- No 5mg QD 5 mg every Methodi (NORVASC) 5 07-07- morning. st mg tablet 00:00: 00:00 Hospita 00 :00 l Amlodipine Amlodipine Yes [address] Besylate Besylate [facility] Aspirin Aspirin Yes Daily [facility] (Aspir 81) (Aspir 81) Tal es - 81 Mg 81 Mg Patient TABLET.DR SHIPLEY.DR [facility] Hydrochloro Hydrochloro Yes 12.[address] thiazide thiazide [facility] - (Hydrochlor (Hydrochlor P atient othiazide*) othiazide*) s 25 Mg 25 Mg Medical TABLET TABLET Center Tamsulosin Tamsulosin Yes .[address] Hcl Hcl [facility] - (Flomax*) (Flomax*) Patie nt 0.4 Mg CAP 0.4 Mg CAP s [facility] Vital Signs Vital Name Observation Time Observation Value Comments Source Heart rate 2021-02-23 17:45:00 55 /min [facility] Respiratory rate 2021-02-23 17:45:00 20 /min [facility] Oxygen saturation in 2021-02-23 17:45:00 99 /min [facility] Arterial blood by Pulse oximetry Systolic blood 2021-02-23 16:34:54 158 mm[Hg] [facility] pressure Diastolic blood 2021-02-23 16:34:54 75 mm[Hg] [facility] pressure Body temperature 2021-02-23 16:34:54 36.61 Ayana [facility] Body weight 2021-02-21 10:06:00 59.467 kg [facility] BMI 2021-02-21 10:06:00 22.50 kg/m2 [facility] Body height 2021-02-20 11:07:00 162.6 cm [facility] BP Diastolic 2020-09-28 12:46:00 76 mm[Hg] [facility] BP Systolic 2020-09-28 12:46:00 149 mm[Hg] [facility] Oxygen saturation by 2020-09-28 12:46:00 99 /min [facility] - Pulse oximetry Patients [facility] Heart Rate 2020-09-28 12:46:00 85 /min [facility] Respiratory rate 2020-09-28 12:46:00 22 /min [facility] Body Temperature 2020-09-28 12:46:00 97.7 [degF] [facility] Heart Rate 2020-09-28 08:42:00 81 /min [facility] Respiratory rate 2020-09-28 08:42:00 24 /min [facility] Body Temperature 2020-09-28 08:42:00 97.4 [degF] [facility] BP Diastolic 2020-09-28 08:42:00 60 mm[Hg] [facility] BP Systolic 2020-09-28 08:42:00 141 mm[Hg] [facility] Oxygen saturation by 2020-09-28 08:42:00 96 /min [facility] - Pulse oximetry Patients [facility] BP Diastolic 2020-09-28 08:36:00 60 mm[Hg] [facility] BP Systolic 2020-09-28 08:36:00 141 mm[Hg] [facility] Oxygen saturation by 2020-09-28 08:36:00 96 /min [facility] - Pulse oximetry Patients [facility] Heart Rate 2020-09-28 08:36:00 81 /min [facility] Respiratory rate 2020-09-28 08:36:00 24 /min [facility] Body Temperature 2020-09-28 08:36:00 97.4 [degF] [facility] Oxygen saturation by 2020-09-28 08:17:00 96 /min [facility] - Pulse oximetry Patients [facility] Heart Rate 2020-09-28 08:17:00 80 /min [facility] Respiratory rate 2020-09-28 08:17:00 20 /min [facility] Oxygen saturation by 2020-09-28 07:49:00 96 /min [facility] - Pulse oximetry Patients [facility] Heart Rate 2020-09-28 07:49:00 80 /min [...] [facility] - Pulse oximetry Patients [facility] Heart Rate 2020-09-28 04:00:00 85 /min [facility] Respiratory rate 2020-09-28 04:00:00 20 /min [facility] Body Temperature 2020-09-28 04:00:00 97.7 [degF] [facility] Oxygen saturation by 2020-09-28 02:48:00 98 /min [facility] - Pulse oximetry Patients [facility] Heart Rate 2020-09-28 02:48:00 85 /min [facility] Respiratory rate 2020-09-28 02:48:00 18 /min [facility] Oxygen saturation by 2020-09-28 02:40:00 95 /min [facility] - Pulse oximetry Patients [facility] Heart Rate 2020-09-28 02:40:00 87 /min [...] [facility] - Pulse oximetry Patients [facility] Heart Rate 2020-09-28 00:00:00 92 /min [...] [facility] - Pulse oximetry Patients [facility] Heart Rate 2020-09-27 20:00:00 99 /min [facility] Respiratory rate 2020-09-27 20:00:00 18 /min [facility] Body Temperature 2020-09-27 20:00:00 98.1 [degF] [facility] Oxygen saturation by 2020-09-27 19:53:00 100 /min [facility] - Pulse oximetry Patients [facility] Heart Rate 2020-09-27 19:53:00 96 /min [facility] Respiratory rate 2020-09-27 19:53:00 18 /min [facility] Oxygen saturation by 2020-09-27 19:45:00 97 /min [facility] - Pulse oximetry Patients [facility] Heart Rate 2020-09-27 19:45:00 99 /min [...] [facility] - Pulse oximetry Patients [facility] Heart Rate 2020-09-27 15:21:00 103 /min [facility] Respiratory rate 2020-09-27 15:21:00 20 /min [facility] Body Temperature 2020-09-27 15:21:00 98.5 [degF] [facility] Oxygen saturation by 2020-09-27 14:45:00 99 /min [facility] - Pulse oximetry Patients [facility] Heart Rate 2020-09-27 14:45:00 103 /min [facility] Respiratory rate 2020-09-27 14:45:00 20 /min [facility] Oxygen saturation by 2020-09-27 14:30:00 95 /min [facility] - Pulse oximetry Patients [facility] Heart Rate 2020-09-27 14:30:00 103 /min [facility] Respiratory rate 2020-09-27 14:30:00 20 /min [facility] BP Diastolic 2020-09-27 11:13:00 56 mm[Hg] [facility] BP Systolic 2020-09-27 11:13:00 123 mm[Hg] [facility] Oxygen saturation by 2020-09-27 11:13:00 99 /min [facility] - Pulse oximetry Patients [facility] Heart Rate 2020-09-27 11:13:00 88 /min [...] [facility] - Pulse oximetry Patients [facility] Heart Rate 2020-09-27 08:15:00 105 /min [...] [facility] - Pulse oximetry Patients [facility] Heart Rate 2020-09-27 07:58:00 105 /min [facility] Respiratory rate 2020-09-27 07:58:00 16 /min [facility] Body Temperature 2020-09-27 07:58:00 97.6 [degF] [facility] Oxygen saturation by 2020-09-27 07:15:00 99 /min [facility] - Pulse oximetry Patients [facility] Heart Rate 2020-09-27 07:15:00 105 /min [facility] Respiratory rate 2020-09-27 07:15:00 16 /min [facility] Oxygen saturation by 2020-09-27 07:00:00 95 /min [facility] - Pulse oximetry Patients [facility] Heart Rate 2020-09-27 07:00:00 105 /min [facility] Respiratory rate 2020-09-27 07:00:00 16 /min [facility] Oxygen saturation by 2020-09-27 00:05:00 100 /min [facility] - Pulse oximetry Patients [facility] Heart Rate 2020-09-27 00:05:00 91 /min [facility] Respiratory rate 2020-09-27 00:05:00 20 /min [facility] Oxygen saturation by 2020-09-26 23:50:00 98 /min [facility] - Pulse oximetry Patients [facility] Heart Rate 2020-09-26 23:50:00 89 /min [facility] Respiratory rate 2020-09-26 23:50:00 20 /min [facility] BP Diastolic 2020-09-26 20:36:00 69 mm[Hg] [facility] BP Systolic 2020-09-26 20:36:00 114 mm[Hg] [facility] Oxygen saturation by 2020-09-26 20:36:00 98 /min [facility] - Pulse oximetry Patients [facility] Heart Rate 2020-09-26 20:36:00 84 /min [facility] Respiratory rate 2020-09-26 20:36:00 18 /min [facility] [place] Body Temperature 2020-09-26 20:36:00 98.1 [degF] [facility] BP Diastolic 2020-09-26 20:00:00 80 mm[Hg] [facility] BP Systolic 2020-09-26 20:00:00 142 mm[Hg] [facility] Oxygen saturation by 2020-09-26 20:00:00 100 /min [facility] - Pulse oximetry Patients [facility] Heart Rate 2020-09-26 20:00:00 89 /min [facility] Respiratory rate 2020-09-26 20:00:00 21 /min [facility] Body Temperature 2020-09-26 20:00:00 98.3 [degF] [facility] BP Diastolic 2020-09-26 16:11:00 75 mm[Hg] [facility] BP Systolic 2020-09-26 16:11:00 151 mm[Hg] [facility] Oxygen saturation by 2020-09-26 16:11:00 100 /min [facility] - Pulse oximetry Patients [facility] Heart Rate 2020-09-26 16:11:00 89 /min [facility] Respiratory rate 2020-09-26 16:11:00 21 /min [facility] Body Temperature 2020-09-26 16:11:00 98.3 [degF] [facility] Oxygen saturation by 2020-09-26 13:10:00 96 /min [facility] - Pulse oximetry Patients [facility] Heart Rate 2020-09-26 13:10:00 94 /min [facility] Respiratory rate 2020-09-26 13:10:00 16 /min [facility] Oxygen saturation by 2020-09-26 12:55:00 96 /min [facility] - Pulse oximetry Patients [facility] Heart Rate 2020-09-26 12:55:00 94 /min [facility] Respiratory rate 2020-09-26 12:55:00 16 /min [facility] Oxygen saturation by 2020-09-26 12:35:00 96 /min [facility] - Pulse oximetry Patients [facility] Heart Rate 2020-09-26 12:35:00 94 /min [...] [facility] - Pulse oximetry Patients [facility] Heart Rate 2020-09-26 12:12:00 100 /min [...] [facility] - Pulse oximetry Patients [facility] Heart Rate 2020-09-26 09:22:00 99 /min [facility] Respiratory rate 2020-09-26 09:22:00 26 /min [facility] Body Temperature 2020-09-26 09:22:00 97.4 [degF] [facility] Oxygen saturation by 2020-09-26 08:50:00 98 /min [facility] - Pulse oximetry Patients [facility] Heart Rate 2020-09-26 08:50:00 99 /min [facility] Respiratory rate 2020-09-26 08:50:00 26 /min [facility] Oxygen saturation by 2020-09-26 08:35:00 98 /min [facility] - Pulse oximetry Patients [facility] Heart Rate 2020-09-26 08:35:00 99 /min [facility] Respiratory rate 2020-09-26 08:35:00 26 /min [facility] BP Diastolic 2020-09-26 07:58:00 59 mm[Hg] [facility] BP Systolic 2020-09-26 07:58:00 113 mm[Hg] [facility] Oxygen saturation by 2020-09-26 07:58:00 98 /min [facility] - Pulse oximetry Patients [facility] Heart Rate 2020-09-26 07:58:00 99 /min [...] [facility] - Pulse oximetry Patients [facility] Heart Rate 2020-09-26 04:00:00 99 /min [facility] Respiratory rate 2020-09-26 04:00:00 20 /min [facility] Body Temperature 2020-09-26 04:00:00 97.0 [degF] [facility] Oxygen saturation by 2020-09-25 20:08:00 100 /min [facility] - Pulse oximetry Patients [facility] Heart Rate 2020-09-25 20:08:00 97 /min [facility] Respiratory rate 2020-09-25 20:08:00 20 /min [facility] BP Diastolic 2020-09-25 20:00:00 61 mm[Hg] [facility] BP Systolic 2020-09-25 20:00:00 124 mm[Hg] [facility] Oxygen saturation by 2020-09-25 20:00:00 97 /min [facility] - Pulse oximetry Patients [facility] Heart Rate 2020-09-25 20:00:00 99 /min [facility] Respiratory rate 2020-09-25 20:00:00 18 /min [facility] Body Temperature 2020-09-25 20:00:00 97.9 [degF] [facility] Oxygen saturation by 2020-09-25 19:53:00 97 /min [facility] - Pulse oximetry Patients [facility] Heart Rate 2020-09-25 19:53:00 94 /min [...] [facility] - Pulse oximetry Patients [facility] Heart Rate 2020-09-25 15:48:00 99 /min [facility] Respiratory rate 2020-09-25 15:48:00 18 /min [facility] Body Temperature 2020-09-25 15:48:00 98.0 [degF] [facility] Oxygen saturation by 2020-09-25 12:40:00 97 /min [facility] - Pulse oximetry Patients [facility] Heart Rate 2020-09-25 12:40:00 109 /min [facility] Respiratory rate 2020-09-25 12:40:00 16 /min [facility] Oxygen saturation by 2020-09-25 12:39:00 97 /min [facility] - Pulse oximetry Patients [facility] Heart Rate 2020-09-25 12:39:00 98 /min [facility] Respiratory rate 2020-09-25 12:39:00 22 /min [facility] BP Diastolic 2020-09-25 11:14:00 72 mm[Hg] [facility] [facility] Systolic 2020-09-25 11:14:00 98 mm[Hg] [facility] Oxygen saturation by 2020-09-25 11:14:00 100 /min [facility] - Pulse oximetry Patients [facility] Heart Rate 2020-09-25 11:14:00 98 /min [facility] Respiratory rate 2020-09-25 11:14:00 22 [...] [facility] - Pulse [facility]ximetry Patients [facility] Heart Rate 2020-09-25 09:18:00 96 /min [facility] Respiratory rate 2020-09-25 09:18:00 18 /min [facility] Body Temperature 2020-09-25 09:18:00 97.9 [degF] [facility] Oxygen saturation by 2020-09-25 08:35:00 98 /min [facility] - Pulse oximetry Patients [facility] Heart Rate 2020-09-25 08:35:00 96 /min [facility] Respiratory rate 2020-09-25 08:35:00 18 /min [facility] Oxygen saturation by 2020-09-25 08:20:00 98 /min [facility] Pulse oximetry Patients [facility] Heart Rate 2020-09-25 08:20:00 96 /min [facility] [...] [facility] Pulse [facility]xim[facility] Patients [facility] Heart Rate 2020-09-25 07:33:00 96 /min [...] [facility] - Pulse oximetry Patients [facility] Heart Rate 2020-09-25 04:00:00 83 /min [facility] Respiratory rate 2020-09-25 04:00:00 18 /min [facility] Body Temperature 2020-09-25 04:00:00 97.7 [degF] [facility] BP Diastolic 2020-09-24 23:59:00 94 mm[Hg] [facility] BP Systolic 2020-09-24 23:59:00 151 mm[Hg] [facility] Oxygen saturation by 2020-09-24 23:59:00 99 /min [facility] - Pulse oximetry Patients [facility] Heart Rate 2020-09-24 23:59:00 97 /min [...] [facility] - Pulse oximetry Patients [facility] Heart Rate 2020-09-24 20:32:00 112 /min [facility] Respiratory rate 2020-09-24 20:32:00 18 /min [facility] Body Temperature 2020-09-24 20:32:00 97.7 [degF] [facility] Oxygen saturation by 2020-09-24 20:25:00 98 /min [facility] Pulse oximetry Patients [facility] Heart Rate 2020-09-24 20:25:00 100 /min [facility] Respiratory rate 2020-09-24 20:25:00 20 /min [facility] Oxygen saturation by 2020-09-24 20:10:00 95 /min [facility] - Pulse oximetry Patients [facility] Heart Rate 2020-09-24 20:10:00 102 /min [...] [facility] - Pulse oximetry Patients [facility] Heart Rate 2020-09-24 20:00:00 112 /min [facility] Respiratory rate 2020-09-24 20:00:00 18 /min [facility] Body Temperature 2020-09-24 20:00:00 97.7 [degF] [facility] BP Diastolic 2020-09-24 17:13:00 71 mm[Hg] [facility] BP Systolic 2020-09-24 17:13:00 129 mm[Hg] [facility] Oxygen saturation by 2020-09-24 17:13:00 100 /min [facility] - Pulse oximetry Patients [facility] Heart Rate 2020-09-24 17:13:00 94 /min [facility] Respiratory rate 2020-09-24 17:13:00 16 /min [facility] Body Temperature 2020-09-24 17:13:00 97.7 [degF] [facility] Oxygen saturation by 2020-09-24 14:00:00 100 /min [facility] - Pulse oximetry Patients [facility] Heart Rate 2020-09-24 14:00:00 94 /min [facility] Respiratory rate 2020-09-24 14:00:00 16 /min [facility] Oxygen saturation by 2020-09-24 13:45:00 100 /min [facility] Pulse oximetry Patients [facility] Heart Rate 2020-09-24 13:45:00 94 /min [...] [facility] - Pulse oximetry Patients [facility] Heart Rate 2020-09-24 08:41:00 94 /min [facility] Respiratory rate 2020-09-24 08:41:00 16 /min [facility] Body Temperature 2020-09-24 08:41:00 97.7 [degF] [facility] BP Diastolic 2020-09-24 08:30:00 59 mm[Hg] [facility] BP Systolic 2020-09-24 08:30:00 142 mm[Hg] [facility] Oxygen saturation by 2020-09-24 08:30:00 95 /min [facility] - Pulse oximetry Patients [facility] Heart Rate 2020-09-24 08:30:00 94 /min [facility] Respiratory rate 2020-09-24 08:30:00 18 /min [facility] Body Temperature 2020-09-24 08:30:00 98.6 [degF] [facility] Oxygen saturation by 2020-09-24 06:50:00 100 /min [facility] - Pulse oximetry Patients [facility] Heart Rate 2020-09-24 06:50:00 91 /min [facility] Respiratory rate 2020-09-24 06:50:00 16 /min [facility] Oxygen saturation by 2020-09-24 06:35:00 97 /min [facility] - Pulse oximetry Patients [facility] Heart Rate 2020-09-24 06:35:00 87 /min [...] [facility] - Pulse oximetry Patients [facility] Heart Rate 2020-09-24 04:00:00 88 /min [facility] Respiratory rate 2020-09-24 04:00:00 18 /min [facility] Body Temperature 2020-09-24 04:00:00 97.7 [degF] [facility] Oxygen saturation by 2020-09-24 01:18:00 97 /min [facility] - Pulse oximetry Patients [facility] Heart Rate 2020-09-24 01:18:00 91 /min [facility] Respiratory rate 2020-09-24 01:18:00 18 /min [facility] Oxygen saturation by 2020-09-24 01:10:00 94 /min [facility] - Pulse oximetry Patients [facility] Heart Rate 2020-09-24 01:10:00 89 /min [facility] Respiratory rate 2020-09-24 01:10:00 16 /min [facility] BP Diastolic 2020-09-24 00:00:00 60 mm[Hg] [facility] BP Systolic 2020-09-24 00:00:00 154 mm[Hg] [facility] Oxygen saturation by 2020-09-24 00:00:00 94 /min [facility] - Pulse oximetry Patients [facility] Heart Rate 2020-09-24 00:00:00 92 /min [facility] Respiratory rate 2020-09-24 00:00:00 18 /min [facility] Body Temperature 2020-09-24 00:00:00 98.5 [degF] [facility] BP Diastolic 2020-09-23 21:42:00 83 mm[Hg] [facility] BP Systolic 2020-09-23 21:42:00 146 mm[Hg] [facility] Oxygen saturation by 2020-09-23 21:42:00 94 /min [facility] - Pulse oximetry Patients [facility] Heart Rate 2020-09-23 21:42:00 105 /min [facility] Respiratory rate 2020-09-23 21:42:00 18 /min [facility] Body Temperature 2020-09-23 21:42:00 97.9 [degF] [facility] BP Diastolic 2020-09-23 20:00:00 83 mm[Hg] [facility] BP Systolic 2020-09-23 20:00:00 146 mm[Hg] [facility] Oxygen saturation by 2020-09-23 20:00:00 94 /min [facility] - Pulse oximetry Patients [facility] Heart Rate 2020-09-23 20:00:00 105 /min [facility] Respiratory rate 2020-09-23 20:00:00 18 /min [facility] Body Temperature 2020-09-23 20:00:00 97.9 [degF] [facility] Oxygen saturation by 2020-09-23 19:18:00 99 /min [facility] - Pulse oximetry Patients [facility] Heart Rate 2020-09-23 19:18:00 101 /min [facility] Respiratory rate 2020-09-23 19:18:00 22 /min [facility] Oxygen saturation by 2020-09-23 19:10:00 94 /min [facility] - Pulse oximetry Patients [facility] Heart Rate 2020-09-23 19:10:00 98 /min [facility] Respiratory rate 2020-09-23 19:10:00 20 /min [facility] BP Diastolic 2020-09-23 16:11:00 64 mm[Hg] [facility] BP Systolic 2020-09-23 16:11:00 135 mm[Hg] [facility] Oxygen saturation by 2020-09-23 16:11:00 97 /min [facility] - Pulse oximetry Patients [facility] Heart Rate 2020-09-23 16:11:00 96 /min [facility] Respiratory rate 2020-09-23 16:11:00 18 /min [facility] Body Temperature 2020-09-23 16:11:00 97.8 [degF] [facility] Oxygen saturation by 2020-09-23 14:15:00 98 /min [facility] - Pulse oximetry Patients [facility] Heart Rate 2020-09-23 14:15:00 83 /min [facility] Respiratory rate 2020-09-23 14:15:00 20 /min [facility] Oxygen saturation by 2020-09-23 14:00:00 98 /min [facility] - Pulse oximetry Patients [facility] Heart Rate 2020-09-23 14:00:00 83 /min [facility] Respiratory rate 2020-09-23 14:00:00 20 /min [facility] BP Diastolic 2020-09-23 08:50:00 63 mm[Hg] [facility] BP Systolic 2020-09-23 08:50:00 142 mm[Hg] [facility] Oxygen saturation by 2020-09-23 08:50:00 98 /min [facility] - Pulse oximetry Patients [facility] Heart Rate 2020-09-23 08:50:00 94 /min [facility] Respiratory rate 2020-09-23 08:50:00 18 /min [facility] Body Temperature 2020-09-23 08:50:00 97.3 [degF] [facility] BP Diastolic 2020-09-23 08:39:00 63 mm[Hg] [facility] BP Systolic 2020-09-23 08:39:00 142 mm[Hg] [facility] Oxygen saturation by 2020-09-23 08:39:00 100 /min [facility] - Pulse oximetry Patients [facility] Heart Rate 2020-09-23 08:39:00 94 /min [facility] Respiratory rate 2020-09-23 08:39:00 18 /min [facility] Body Temperature 2020-09-23 08:39:00 97.4 [degF] [facility] Oxygen saturation by 2020-09-23 06:45:00 100 /min [facility] - Pulse oximetry Patients [facility] Heart Rate 2020-09-23 06:45:00 94 /min [facility] Respiratory rate 2020-09-23 06:45:00 18 /min [facility] Oxygen saturation by 2020-09-23 06:30:00 100 /min [facility] - Pulse oximetry Patients [facility] Heart Rate 2020-09-23 06:30:00 94 /min [facility] Respiratory rate 2020-09-23 06:30:00 18 /min [facility] BP Diastolic 2020-09-23 04:30:00 75 mm[Hg] [facility] BP Systolic 2020-09-23 04:30:00 168 mm[Hg] [facility] Oxygen saturation by 2020-09-23 04:30:00 98 /min [facility] - Pulse oximetry Patients [facility] Heart Rate 2020-09-23 04:30:00 87 /min [facility] Respiratory rate 2020-09-23 04:30:00 18 /min [facility] Body Temperature 2020-09-23 04:30:00 97.6 [degF] [facility] [place] Oxygen saturation by 2020-09-23 00:40:00 94 /min [facility] - Pulse oximetry Patients [facility] Heart Rate 2020-09-23 00:40:00 81 /min [facility] Respiratory rate 2020-09-23 00:40:00 20 /min [facility] BP Diastolic 2020-09-23 00:23:00 76 mm[Hg] [facility] BP Systolic 2020-09-23 00:23:00 141 mm[Hg] [facility] Oxygen saturation by 2020-09-23 00:23:00 94 /min [facility] - Pulse oximetry Patients [facility] Heart Rate 2020-09-23 00:23:00 81 /min [...] [facility] - Pulse oximetry Patients [facility] Heart Rate 2020-09-22 20:04:00 95 /min [facility] Respiratory rate 2020-09-22 20:04:00 18 /min [facility] Body Temperature 2020-09-22 20:04:00 97.6 [degF] [facility] Oxygen saturation by 2020-09-22 20:02:00 98 /min [facility] - Pulse oximetry Patients [facility] Heart Rate 2020-09-22 20:02:00 94 /min [facility] Respiratory rate 2020-09-22 20:02:00 20 /min [facility] Oxygen saturation by 2020-09-22 19:47:00 96 /min [facility] - Pulse oximetry Patients [facility] Heart Rate 2020-09-22 19:47:00 95 /min [facility] Respiratory rate 2020-09-22 19:47:00 20 /min [facility] Oxygen saturation by 2020-09-22 15:48:00 100 /min [facility] - Pulse oximetry Patients [facility] Heart Rate 2020-09-22 15:48:00 89 /min [...] [facility] - Pulse oximetry Patients [facility] Heart Rate 2020-09-22 15:40:00 90 /min [facility] Respiratory rate 2020-09-22 15:40:00 22 /min [facility] Body Temperature 2020-09-22 15:40:00 97.6 [degF] [facility] Oxygen saturation by 2020-09-22 15:33:00 96 /min [facility] - Pulse oximetry Patients [facility] Heart Rate 2020-09-22 15:33:00 88 /min [facility] Respiratory rate 2020-09-22 15:33:00 24 /min [facility] BP Diastolic 2020-09-22 11:44:00 65 mm[Hg] [facility] BP Systolic 2020-09-22 11:44:00 165 mm[Hg] [facility] Oxygen saturation by 2020-09-22 11:44:00 100 /min [facility] Pulse oximetry Patients [facility] Heart Rate 2020-09-22 11:44:00 81 /min [facility] Respiratory rate 2020-09-22 11:44:00 23 /min [facility] Body Temperature 2020-09-22 11:44:00 97.9 [degF] [facility] Oxygen saturation by 2020-09-22 11:25:00 100 /min [facility] - Pulse oximetry Patients [facility] Heart Rate 2020-09-22 11:25:00 88 /min [facility] Oxygen saturation by 2020-09-22 11:10:00 96 /min [facility] - Pulse oximetry Patients [facility] Heart Rate 2020-09-22 11:10:00 84 /min [...] [facility] - Pulse oximetry Patients [facility] Heart Rate 2020-09-22 09:27:00 84 /min [...] [facility] - Pulse oximetry Patients [facility] Heart Rate 2020-09-22 08:00:00 84 /min [...] [facility] - Pulse oximetry Patients [facility] Heart Rate 2020-09-22 03:50:00 93 /min [facility] Respiratory rate 2020-09-22 03:50:00 24 /min [facility] Body Temperature 2020-09-22 03:50:00 97.9 [degF] [facility] Oxygen saturation by 2020-09-22 02:17:00 100 /min [facility] - Pulse oximetry Patients [facility] Heart Rate 2020-09-22 02:17:00 92 /min [facility] Respiratory rate 2020-09-22 02:17:00 20 /min [facility] Oxygen saturation by 2020-09-22 02:02:00 100 /min [facility] Pulse oximetry Patients [facility] Heart Rate 2020-09-22 02:02:00 88 /min [...] [facility] - Pulse oximetry Patients [facility] Heart Rate 2020-09-22 00:02:00 72 /min [facility] Respiratory rate 2020-09-22 00:02:00 20 /min [facility] Body Temperature 2020-09-22 00:02:00 98.4 [degF] [facility] BP Diastolic 2020-09-21 20:07:00 72 mm[Hg] [facility] BP Systolic 2020-09-21 20:07:00 147 mm[Hg] [facility] Oxygen saturation by 2020-09-21 20:07:00 96 /min [facility] - Pulse oximetry Patients [facility] Heart Rate 2020-09-21 20:07:00 84 /min [facility] Respiratory rate 2020-09-21 20:07:00 24 /min [facility] Body Temperature 2020-09-21 20:07:00 98.6 [degF] [facility] Oxygen saturation by 2020-09-21 20:02:00 97 /min [facility] Pulse oximetry Patients [facility] Heart Rate 2020-09-21 20:02:00 80 /min [...] [facility] - Pulse oximetry Patients [facility] Heart Rate 2020-09-21 20:00:00 78 /min [...] [facility] - Pulse oximetry Patients [facility] Heart Rate 2020-09-21 16:00:00 78 /min [...] - [facility] Oxygen saturation by 2020-09-21 13:02:00 96 /min [facility] - Pulse oximetry Patients [facility] Heart Rate 2020-09-21 13:02:00 70 /min [facility] Respiratory rate 2020-09-21 13:02:00 18 /min [facility] Body Temperature 2020-09-21 13:02:00 98.3 [degF] [facility] Oxygen saturation by 2020-09-21 10:15:00 96 /min [facility] Pulse oximetry Patients [facility] Heart Rate 2020-09-21 10:15:00 72 /min [facility] Respiratory rate 2020-09-21 10:15:00 18 /min [facility] BP Diastolic 2020-09-21 09:08:00 63 mm[Hg] [facility] BP Systolic 2020-09-21 09:08:00 150 mm[Hg] [facility] Oxygen saturation by 2020-09-21 09:08:00 95 /min [facility] Pulse oximetry Patients [facility] Heart Rate 2020-09-21 09:08:00 63 /min [facility] Respiratory rate 2020-09-21 09:08:00 17 /min [...] [facility] - Pulse oximetry Patients [facility] Heart Rate 2020-09-21 08:58:00 63 /min [facility] Respiratory rate 2020-09-21 08:58:00 17 /min [facility] Body Temperature 2020-09-21 08:58:00 98.0 [degF] [facility] BP Diastolic 2020-09-21 07:38:00 63 mm[Hg] [facility] BP Systolic 2020-09-21 07:38:00 150 mm[Hg] [facility] Oxygen saturation by 2020-09-21 07:38:00 95 /min [facility] Pulse oximetry Patients [facility] Heart Rate 2020-09-21 07:38:00 63 /min [facility] Respiratory rate 2020-09-21 07:38:00 17 /min [facility] Body Temperature 2020-09-21 07:38:00 98.0 [degF] [facility] BP Diastolic 2020-09-21 04:00:00 70 mm[Hg] [facility] BP Systolic 2020-09-21 04:00:00 149 mm[Hg] [facility] Oxygen saturation by 2020-09-21 04:00:00 94 /min [facility] Pulse oximetry Patients [facility] Heart Rate 2020-09-21 04:00:00 73 /min [...] [facility] - Pulse oximetry Patients [facility] Heart Rate 2020-09-21 00:00:00 76 /min [facility] Respiratory rate 2020-09-21 00:00:00 21 /min [facility] Body Temperature 2020-09-21 00:00:00 98.2 [degF] [facility] BP Diastolic 2020-09-20 20:00:00 69 mm[Hg] [facility] BP Systolic 2020-09-20 20:00:00 155 mm[Hg] [facility] Oxygen saturation by 2020-09-20 20:00:00 94 /min [facility] Pulse oximetry Patients [facility] Heart Rate 2020-09-20 20:00:00 72 /min [facility] Respiratory rate 2020-09-20 20:00:00 20 /min [facility] Body Temperature 2020-09-20 20:00:00 98.1 [degF] [facility] Oxygen saturation by 2020-09-20 19:53:00 99 /min [facility] Pulse oximetry Patients [facility] Heart Rate 2020-09-20 19:53:00 72 /min [facility] Respiratory rate 2020-09-20 19:53:00 16 /min [facility] Oxygen saturation by 2020-09-20 19:45:00 96 /min [facility] Pulse oximetry Patients [facility] Heart Rate 2020-09-20 19:45:00 75 /min [facility] Respiratory rate 2020-09-20 19:45:00 18 /min [facility] BP Diastolic 2020-09-20 16:36:00 69 mm[Hg] [facility] BP Systolic 2020-09-20 16:36:00 155 mm[Hg] [facility] Oxygen saturation by 2020-09-20 16:36:00 97 /min [facility] Pulse oximetry Patients [facility] Heart Rate 2020-09-20 16:36:00 73 /min [facility] Respiratory rate 2020-09-20 16:36:00 21 /min [facility] Body Temperature 2020-09-20 16:36:00 98.3 [degF] [facility] BP Diastolic 2020-09-20 15:47:00 60 mm[Hg] [facility] BP Systolic 2020-09-20 15:47:00 133 mm[Hg] [facility] Oxygen saturation by 2020-09-20 15:47:00 94 /min [facility] Pulse oximetry Patients [facility] Heart Rate 2020-09-20 15:47:00 71 /min [facility] Respiratory rate 2020-09-20 15:47:00 19 /min [facility] Body Temperature 2020-09-20 15:47:00 98.1 [degF] [facility] BP Diastolic 2020-09-20 11:55:00 60 mm[Hg] [facility] BP Systolic 2020-09-20 11:55:00 133 mm[Hg] [facility] [facility] by 2020-09-20 11:55:00 94 /min [facility] - Pulse oximetry Patients [facility] Heart Rate 2020-09-20 11:55:00 71 /min [facility] Respiratory rate 2020-09-20 11:55:00 19 /min [...] [facility] Heart Rate 2020-09-20 09:06:00 86 /min [...] [facility] Heart Rate 2020-09-20 08:58:00 86 /min [...] [facility] Heart Rate 2020-09-20 08:55:00 86 /min [...] [facility] Heart Rate 2020-09-20 07:38:00 71 /min [facility] Respiratory rate 2020-09-20 07:38:00 19 /min [facility] Body Temperature 2020-09-20 07:38:00 98.4 [degF] [facility] Oxygen saturation by 2020-09-20 07:05:00 95 /min [facility] - Pulse [facility]ximetry Patients [facility] Heart Rate 2020-09-20 07:05:00 82 /min [facility] Respiratory rate 2020-09-20 07:05:00 18 /min [facility] BP Diastolic 2020-09-20 04:00:00 61 mm[Hg] [facility] BP Systolic 2020-09-20 04:00:00 145 mm[Hg] [facility] Oxygen saturation by 2020-09-20 04:00:00 96 /min [facility] Pulse [facility]ximetry Patients [facility] Heart Rate 2020-09-20 04:00:00 66 /min [...] [facility] Heart Rate 2020-09-20 00:00:00 66 /min [facility] Respiratory rate 2020-09-20 00:00:00 20 /min [facility] Body Temperature 2020-09-20 00:00:00 97.9 [degF] [facility] BP Diastolic 2020-09-19 21:46:00 70 mm[Hg] [facility] BP Systolic 2020-09-19 21:46:00 138 mm[Hg] [facility] Oxygen saturation by 2020-09-19 21:46:00 94 /min [facility] Pulse oximetry Patients [facility] Heart Rate 2020-09-19 21:46:00 80 /min [facility] Respiratory rate 2020-09-19 21:46:00 18 /min [facility] Body Temperature 2020-09-19 21:46:00 97.4 [degF] [facility] Oxygen saturation by 2020-09-19 20:09:00 95 /min [facility] - Pulse oximetry Patients [facility] Heart Rate 2020-09-19 20:09:00 82 /min [facility] Respiratory rate 2020-09-19 20:09:00 18 /min [facility] BP Diastolic 2020-09-19 20:00:00 70 mm[Hg] [facility] BP Systolic 2020-09-19 20:00:00 138 mm[Hg] [facility] Oxygen saturation by 2020-09-19 20:00:00 94 /min [facility] - Pulse oximetry Patients [facility] Heart Rate 2020-09-19 20:00:00 80 /min [...] [facility] Heart Rate 2020-09-19 15:41:00 80 /min [facility] Respiratory rate 2020-09-19 15:41:00 20 /min [facility] Body Temperature 2020-09-19 15:41:00 97.6 [degF] [facility] BP Diastolic 2020-09-19 12:14:00 80 mm[Hg] [facility] BP Systolic 2020-09-19 12:14:00 177 mm[Hg] [facility] Oxygen saturation by 2020-09-19 12:14:00 96 /min [facility] - Pulse oximetry Patients [facility] Heart Rate 2020-09-19 12:14:00 84 /min [...] [facility] Heart Rate 2020-09-19 11:26:00 88 /min [facility] Respiratory rate 2020-09-19 11:26:00 16 /min [facility] Body Temperature 2020-09-19 11:26:00 98.6 [degF] [facility] Oxygen saturation by 2020-09-19 08:10:00 93 /min [facility] Pulse oximetry Patients [facility] Heart Rate 2020-09-19 08:10:00 97 /min [facility] Respiratory rate 2020-09-19 08:10:00 20 /min [facility] BP Diastolic 2020-09-19 07:37:00 91 mm[Hg] [facility] BP Systolic 2020-09-19 07:37:00 168 mm[Hg] [facility] Oxygen saturation by 2020-09-19 07:37:00 97 /min [facility] Pulse oximetry Patients [facility] Heart Rate 2020-09-19 07:37:00 83 /min [facility] Respiratory rate 2020-09-19 07:37:00 21 /min [facility] Body Temperature 2020-09-19 07:37:00 98.1 [degF] [facility] BP Diastolic 2020-09-19 07:17:00 91 mm[Hg] [facility] BP Systolic 2020-09-19 07:17:00 168 mm[Hg] [facility] Oxygen saturation by 2020-09-19 07:17:00 97 /min [facility] - Pulse oximetry Patients [facility] Heart Rate 2020-09-19 07:17:00 83 /min [...] [facility] Heart Rate 2020-09-19 05:03:00 91 /min [facility] Respiratory rate 2020-09-19 05:03:00 18 /min [facility] Body Temperature 2020-09-19 05:03:00 91.0 [degF] [facility] BP Diastolic 2020-09-19 01:59:00 87 mm[Hg] [facility] BP Systolic 2020-09-19 01:59:00 200 mm[Hg] [facility] Oxygen saturation by 2020-09-19 01:59:00 96 /min [facility] - Pulse oximetry Patients [facility] Heart Rate 2020-09-19 01:59:00 92 /min [facility] Respiratory rate 2020-09-19 01:59:00 18 /min [facility] Body Temperature 2020-09-19 01:59:00 97.7 [degF] [facility] BP Diastolic 2020-09-18 22:57:00 86 mm[Hg] [facility] BP Systolic 2020-09-18 22:57:00 158 mm[Hg] [facility] Oxygen saturation by 2020-09-18 22:57:00 96 /min [facility] Pulse oximetry Patients [facility] Heart Rate 2020-09-18 22:57:00 68 /min [...] [facility] Patients [facility] Heart Rate 2020-09-18 21:58:00 68 /min [facility] Respiratory rate 2020-09-18 21:58:00 18 /min [facility] Body Temperature 2020-09-18 21:58:00 97.7 [degF] [facility] Oxygen saturation by 2020-09-18 21:16:00 93 /min [facility] - Pulse oximetry Patients [facility] Heart Rate 2020-09-18 21:16:00 97 /min [facility] Respiratory rate 2020-09-18 21:16:00 20 /min [facility] BP Diastolic 2020-09-18 15:41:00 70 mm[Hg] [facility] BP Systolic 2020-09-18 15:41:00 163 mm[Hg] [facility] Oxygen saturation by 2020-09-18 15:41:00 98 /min [facility] - Pulse oximetry Patients [facility] Heart Rate 2020-09-18 15:41:00 84 /min [facility] Respiratory rate 2020-09-18 15:41:00 21 /min [facility] Body Temperature 2020-09-18 15:41:00 98.6 [degF] [facility] BP Diastolic 2020-09-18 13:00:00 73 mm[Hg] [facility] BP Systolic 2020-09-18 13:00:00 160 mm[Hg] [facility] Oxygen saturation by 2020-09-18 13:00:00 96 /min [facility] - Pulse oximetry Patients [facility] Heart Rate 2020-09-18 13:00:00 86 /min [...] [facility] Heart Rate 2020-09-18 12:00:00 85 /min [facility] Respiratory rate 2020-09-18 12:00:00 18 /min [facility] Body Temperature 2020-09-18 12:00:00 98.0 [degF] [facility] BP Diastolic 2020-09-18 11:00:00 76 mm[Hg] [facility] BP Systolic 2020-09-18 11:00:00 168 mm[Hg] [facility] Oxygen saturation by 2020-09-18 11:00:00 96 /min [facility] - Pulse oximetry Patients [facility] Heart Rate 2020-09-18 11:00:00 86 /min [facility] Respiratory rate 2020-09-18 11:00:00 24 /min [facility] BP Diastolic 2020-09-18 10:00:00 79 mm[Hg] [facility] BP Systolic 2020-09-18 10:00:00 150 mm[Hg] [facility] Oxygen saturation by 2020-09-18 10:00:00 96 /min [facility] - Pulse oximetry Patients [facility] Heart Rate 2020-09-18 10:00:00 80 /min [...] [facility] - Pulse [facility]ximetry Patients [facility] Heart Rate 2020-09-18 09:00:00 86 /min [...] [facility] - Pulse [facility]ximetry Patients [facility] Heart Rate 2020-09-18 08:00:00 86 /min [...] [facility] - Pulse [facility]ximetry Patients [facility] Heart Rate 2020-09-18 07:51:00 86 /min [facility] Respiratory rate 2020-09-18 07:51:00 17 /min [facility] Body Temperature 2020-09-18 07:51:00 97.7 [degF] [facility] Oxygen saturation by 2020-09-18 07:35:00 97 /min [facility] - Pulse oximetry Patients [facility] Heart Rate 2020-09-18 07:35:00 85 /min [...] [facility] - Pulse [facility]ximetry Patients [facility] Heart Rate 2020-09-18 07:00:00 86 /min [...] [facility] Patients [facility] Heart Rate 2020-09-18 06:00:00 95 /min [...] [facility] - Pulse [facility]ximetry Patients [facility] Heart Rate 2020-09-18 05:00:00 86 /min [...] [facility] Pulse [facility]ximetry Patients [facility] Heart Rate 2020-09-18 04:00:00 76 /min [...] [facility]xim[facility] Patients [facility] Heart Rate 2020-09-18 03:00:00 89 /min [...] [facility] Pulse [facility]ximetry Patients [facility] Heart Rate 2020-09-18 02:00:00 95 /min [facility] Respiratory rate 2020-09-18 02:00:00 16 /min [facility] BP Diastolic 2020-09-18 01:00:00 73 mm[Hg] [facility] BP Systolic 2020-09-18 01:00:00 144 mm[Hg] [facility] Oxygen saturation by 2020-09-18 01:00:00 97 /min [facility] - Pulse oximetry Patients [facility] Heart Rate 2020-09-18 01:00:00 84 /min [facility] Respiratory rate 2020-09-18 01:00:00 19 /min [facility] BP Diastolic 2020-09-18 00:00:00 68 mm[Hg] [facility] BP Systolic 2020-09-18 00:00:00 144 mm[Hg] [facility] Oxygen saturation by 2020-09-18 00:00:00 97 /min [facility]ulse [facility] Patients [facility] Heart Rate 2020-09-18 00:00:00 89 /min [facility] Respiratory rate 2020-09-18 00:00:00 18 /min [facility] [place] Body Temperature 2020-09-18 00:00:00 98.3 [degF] [facility] BP Diastolic 2020-09-17 23:00:00 89 mm[Hg] [facility] BP Systolic 2020-09-17 23:00:00 145 mm[Hg] [facility] Oxygen saturation by 2020-09-17 23:00:00 96 /min [facility] - Pulse oximetry Patients [facility] Heart Rate 2020-09-17 23:00:00 90 /min [...] [facility] - Pulse [facility]xim[facility] Patients [facility] Heart Rate 2020-09-17 22:03:00 90 /min [facility] Respiratory rate 2020-09-17 22:03:00 18 /min [facility] BP Diastolic 2020-09-17 21:00:00 62 mm[Hg] [facility] BP Systolic 2020-09-17 21:00:00 117 mm[Hg] [facility] Oxygen saturation by 2020-09-17 21:00:00 96 /min [facility] - Pulse oximetry Patients [facility] Heart Rate 2020-09-17 21:00:00 97 /min [facility] Respiratory rate 2020-09-17 21:00:00 19 /min [facility] Oxygen saturation by 2020-09-17 20:08:00 96 /min [facility] - Pulse oximetry Patients [facility] Heart Rate 2020-09-17 20:08:00 95 /min [facility] Respiratory rate 2020-09-17 20:08:00 20 /min [facility] BP Diastolic 2020-09-17 20:00:00 86 mm[Hg] [facility] BP Systolic 2020-09-17 20:00:00 169 mm[Hg] [facility] Oxygen saturation by 2020-09-17 20:00:00 95 /min [facility] - Pulse oximetry Patients [facility] Heart Rate 2020-09-17 20:00:00 105 /min [facility] Respiratory rate 2020-09-17 20:00:00 23 [...] [facility]xim[facility] Heart Rate 2020-09-17 19:00:00 102 /min [...] [facility] - Pulse [facility]ximetry Patients [facility] Heart Rate 2020-09-17 18:00:00 97 /min [...] [facility] Pulse [facility]ximetry Patients [facility] Heart Rate 2020-09-17 17:00:00 106 /min [...] [facility] Pulse [facility]ximetry Patients [facility] Heart Rate 2020-09-17 16:00:00 96 /min [facility] Respiratory rate 2020-09-17 16:00:00 32 /min [facility] Body Temperature 2020-09-17 16:00:00 98.6 [degF] [facility] Oxygen saturation by 2020-09-17 15:28:00 94 /min [facility] - Pulse oximetry Patients [facility] Heart Rate 2020-09-17 15:28:00 83 /min [facility] Respiratory rate 2020-09-17 15:28:00 26 /min [facility] Oxygen saturation by 2020-09-17 15:27:00 94 /min [facility] Pulse [facility]ximetry Patients [facility] Heart Rate 2020-09-17 15:27:00 83 /min [...] [facility] - Pulse [facility]ximetry Patients [facility] Heart Rate 2020-09-17 15:00:00 93 /min [facility] Respiratory rate 2020-09-17 15:00:00 24 /min [facility] Oxygen saturation by 2020-09-17 14:59:00 94 /min [facility] Pulse [facility]ximetry Patients [facility] Heart Rate 2020-09-17 14:59:00 84 /min [...] [facility] Pulse [facility]ximetry Patients [facility] Heart Rate 2020-09-17 14:00:00 109 /min [...] [facility] Pulse [facility]ximetry Patients [facility] Heart Rate 2020-09-17 13:00:00 112 /min [...] [facility] Pulse [facility]ximetry Patients [facility] Heart Rate 2020-09-17 12:00:00 112 /min [...] [facility] Pulse [facility]ximetry Patients [facility] Heart Rate 2020-09-17 11:00:00 119 /min [...] [facility] Pulse [facility]xim[facility] Patients [facility] Heart Rate 2020-09-17 09:00:00 88 /min [...] [facility] Pulse [facility]ximetry Patients [facility] Heart Rate 2020-09-17 08:00:00 85 /min [...] [facility] Pulse [facility]xim[facility] Patients [facility] Heart Rate 2020-09-17 07:00:00 84 /min [facility] Respiratory rate 2020-09-17 07:00:00 15 /min [facility] BP Diastolic 2020-09-17 06:00:00 87 mm[Hg] [facility] BP Systolic 2020-09-17 06:00:00 159 mm[Hg] [facility] Oxygen saturation by 2020-09-17 06:00:00 96 /min [facility] Pulse oximetry Patients [facility] Heart Rate 2020-09-17 06:00:00 83 /min [facility] Respiratory rate 2020-09-17 06:00:00 15 /min [facility] BP Diastolic 2020-09-17 05:00:00 74 mm[Hg] [facility] BP Systolic 2020-09-17 05:00:00 160 mm[Hg] [facility] Oxygen saturation by 2020-09-17 05:00:00 96 /min [facility] Pulse oximetry Patients [facility] Heart Rate 2020-09-17 05:00:00 84 /min [facility] Respiratory rate 2020-09-17 05:00:00 16 /min [facility] BP Diastolic 2020-09-17 04:00:00 85 mm[Hg] [facility] BP Systolic 2020-09-17 04:00:00 155 mm[Hg] [facility] Oxygen saturation by 2020-09-17 04:00:00 96 /min [facility] Pulse oximetry Patients [facility] Heart Rate 2020-09-17 04:00:00 86 /min [...] Center BP Systolic 2020-09-17 03:00:00 188 mm[Hg] [facility] Oxygen saturation by 2020-09-17 03:00:00 97 /min [facility] Patients [facility] Heart Rate 2020-09-17 03:00:00 90 /min [facility] Respiratory rate 2020-09-17 03:00:00 18 /min [facility] Body Temperature 2020-09-17 03:00:00 97.6 [degF] [facility] BP Diastolic 2020-09-17 02:00:00 75 mm[Hg] [facility] BP Systolic 2020-09-17 02:00:00 154 mm[Hg] [facility] Oxygen saturation by 2020-09-17 02:00:00 95 /min [facility]ulse [facility] Patients [facility] Heart Rate 2020-09-17 02:00:00 88 /min [...] [facility] Pulse [facility]xim[facility] Patients [facility] Heart Rate 2020-09-17 01:00:00 88 /min [...] [facility] Pulse [facility]ximetry Patients [facility] Heart Rate 2020-09-17 00:00:00 92 /min [facility] Respiratory rate 2020-09-17 00:00:00 26 /min [facility] Oxygen saturation by 2020-09-16 23:05:00 95 /min [facility] Pulse [facility]ximetry Patients [facility] Heart Rate 2020-09-16 23:05:00 77 /min [...] [facility] Patients [facility] Heart Rate 2020-09-16 23:00:00 83 /min [facility] Respiratory rate 2020-09-16 23:00:00 23 /min [facility] Body Temperature 2020-09-16 23:00:00 97.1 [degF] [facility] BP Diastolic 2020-09-16 22:12:00 76 mm[Hg] [facility] BP Systolic 2020-09-16 22:12:00 137 mm[Hg] [facility] Heart Rate 2020-09-16 22:12:00 80 /min [facility] BP Diastolic 2020-09-16 22:06:00 82 mm[Hg] [facility] BP Systolic 2020-09-16 22:06:00 176 mm[Hg] [facility] Oxygen saturation by 2020-09-16 22:06:00 96 /min [facility]ulse [facility] Patients [facility] Heart Rate 2020-09-16 22:06:00 82 /min [facility] Respiratory rate 2020-09-16 22:06:00 18 /min [facility] BP Diastolic 2020-09-16 22:03:00 81 mm[Hg] [facility] BP Systolic 2020-09-16 22:03:00 201 mm[Hg] [facility] Oxygen saturation by 2020-09-16 22:03:00 96 /min [facility] Pulse [facility]ximetry Patients [facility] Heart Rate 2020-09-16 22:03:00 84 /min [facility] Respiratory rate 2020-09-16 22:03:00 22 /min [facility] BP Diastolic 2020-09-16 22:00:00 86 mm[Hg] [facility] BP Systolic 2020-09-16 22:00:00 206 mm[Hg] [facility] Oxygen saturation by 2020-09-16 22:00:00 96 /min [facility] Patients [facility] Heart Rate 2020-09-16 22:00:00 86 /min [facility] Respiratory rate 2020-09-16 22:00:00 19 /min [facility] BP Diastolic 2020-09-16 21:01:00 69 mm[Hg] [facility] BP Systolic 2020-09-16 21:01:00 153 mm[Hg] [facility] Oxygen saturation by 2020-09-16 21:01:00 96 /min [facility]ulse [facility] Patients [facility] Heart Rate 2020-09-16 21:01:00 85 /min [facility] Respiratory rate 2020-09-16 21:01:00 17 /min [facility] BP Diastolic 2020-09-16 20:44:00 111 mm[Hg] [facility] BP Systolic 2020-09-16 20:44:00 141 mm[Hg] [facility] [place] Oxygen saturation by 2020-09-16 20:44:00 96 /min [facility] Pulse [facility]xim[facility] Patients [facility] Heart Rate 2020-09-16 20:44:00 84 /min [facility] Respiratory rate 2020-09-16 20:44:00 21 /min [facility] [place] Body Temperature 2020-09-16 20:44:00 98.0 [degF] [facility] BP Diastolic 2020-09-16 20:42:00 111 mm[Hg] [facility] BP Systolic 2020-09-16 20:42:00 141 mm[Hg] [facility] Heart Rate 2020-09-16 20:42:00 84 /min [facility] BP Diastolic 2020-09-16 20:24:00 66 mm[Hg] [facility] BP Systolic 2020-09-16 20:24:00 163 mm[Hg] [facility] Heart Rate 2020-09-16 20:24:00 84 /min [facility] BP Diastolic 2020-09-16 20:00:00 88 mm[Hg] [facility] BP Systolic 2020-09-16 20:00:00 185 mm[Hg] [facility] Oxygen saturation by 2020-09-16 20:00:00 96 /min [facility] Pulse [facility]ximetry Patients [facility] Heart Rate 2020-09-16 20:00:00 96 /min [facility] Respiratory rate 2020-09-16 20:00:00 21 /min [facility] Body Temperature 2020-09-16 20:00:00 98.0 [degF] [facility] Oxygen saturation by 2020-09-16 19:40:00 96 /min [facility] Pulse oximetry Patients [facility] Heart Rate 2020-09-16 19:40:00 105 /min [...] Oxygen saturation by 2020-09-16 16:00:00 96 /min [facility] - Pulse oximetry Patients [facility] Heart Rate 2020-09-16 16:00:00 108 /min [...] [facility] - Pulse oximetry Patients [facility] Heart Rate 2020-09-16 13:00:00 90 /min [...] [facility] - Pulse oximetry Patients [facility] Heart Rate 2020-09-16 12:00:00 101 /min [facility] Respiratory rate 2020-09-16 12:00:00 32 /min [facility] Body Temperature 2020-09-16 12:00:00 97.8 [degF] [facility] Oxygen saturation by 2020-09-16 11:00:00 96 /min [facility] - Pulse oximetry Patients [facility] Heart Rate 2020-09-16 11:00:00 79 /min [...] [facility] - Pulse oximetry Patients [facility] Heart Rate 2020-09-16 10:00:00 82 /min [...] [facility] - Pulse oximetry Patients [facility] Heart Rate 2020-09-16 09:00:00 82 /min [facility] Respiratory rate 2020-09-16 09:00:00 20 /min [facility] BP Diastolic 2020-09-16 08:00:00 77 mm[Hg] [facility] BP Systolic 2020-09-16 08:00:00 197 mm[Hg] [facility] Oxygen saturation by 2020-09-16 08:00:00 94 /min [facility] - Pulse oximetry Patients [facility] Heart Rate 2020-09-16 08:00:00 79 /min [facility] - Pulse [facility]ximetry Patients [facility] Heart Rate 2020-09-16 07:00:00 73 /min [...] [facility] - Pulse oximetry Patients [facility] Heart Rate 2020-09-16 06:00:00 87 /min [facility] Respiratory rate 2020-09-16 06:00:00 19 /min [facility] BP Diastolic 2020-09-16 05:00:00 71 mm[Hg] [facility] BP Systolic 2020-09-16 05:00:00 150 mm[Hg] [facility] Oxygen saturation by 2020-09-16 05:00:00 96 /min [facility] - Pulse oximetry Patients [facility] Heart Rate 2020-09-16 05:00:00 89 /min [facility] Respiratory rate 2020-09-16 05:00:00 22 /min [facility] BP Diastolic 2020-09-16 04:00:00 71 mm[Hg] [facility] BP Systolic 2020-09-16 04:00:00 139 mm[Hg] [facility] Oxygen saturation by 2020-09-16 04:00:00 96 /min [facility] - Pulse oximetry Patients [facility] Heart Rate 2020-09-16 04:00:00 85 /min [facility] Respiratory rate 2020-09-16 04:00:00 16 /min [facility] BP Diastolic 2020-09-16 03:00:00 69 mm[Hg] [facility] BP Systolic 2020-09-16 03:00:00 135 mm[Hg] [facility] Oxygen saturation by 2020-09-16 03:00:00 95 /min [facility] - Pulse oximetry Patients [facility] Heart Rate 2020-09-16 03:00:00 82 /min [...] [facility] - Pulse oximetry Patients [facility] Heart Rate 2020-09-16 02:00:00 83 /min [...] [facility] - Pulse oximetry Patients [facility] Heart Rate 2020-09-16 01:00:00 84 /min [...] [facility] - Pulse oximetry Patients [facility] Heart Rate 2020-09-16 00:00:00 77 /min [...] [facility] - Pulse oximetry Patients [facility] Heart Rate 2020-09-15 23:00:00 79 /min [facility] Respiratory rate 2020-09-15 23:00:00 18 /min [facility] BP Diastolic 2020-09-15 22:00:00 55 mm[Hg] [facility] BP Systolic 2020-09-15 22:00:00 133 mm[Hg] [facility] Oxygen saturation by 2020-09-15 22:00:00 94 /min [facility] - Pulse oximetry Patients [facility] Heart Rate 2020-09-15 22:00:00 78 /min [facility] Respiratory rate 2020-09-15 22:00:00 17 /min [facility] BP Diastolic 2020-09-15 21:00:00 56 mm[Hg] [facility] BP Systolic 2020-09-15 21:00:00 145 mm[Hg] [facility] Oxygen saturation by 2020-09-15 21:00:00 93 /min [facility] - Pulse oximetry Patients [facility] Heart Rate 2020-09-15 21:00:00 79 /min [facility] Respiratory rate 2020-09-15 21:00:00 17 /min [facility] Oxygen saturation by 2020-09-15 20:50:00 94 /min [facility] - Pulse oximetry Patients [facility] Heart Rate 2020-09-15 20:50:00 81 /min [facility] Respiratory rate 2020-09-15 20:50:00 18 /min [facility] BP Diastolic 2020-09-15 20:00:00 56 mm[Hg] [facility] BP Systolic 2020-09-15 20:00:00 165 mm[Hg] [facility] Oxygen saturation by 2020-09-15 20:00:00 97 /min [facility] - Pulse oximetry Patients [facility] Heart Rate 2020-09-15 20:00:00 76 /min [facility] Respiratory rate 2020-09-15 20:00:00 22 /min [facility] Oxygen saturation by 2020-09-15 19:00:00 96 /min [facility] - Pulse oximetry Patients [facility] Respiratory rate 2020-09-15 19:00:00 14 /min [facility] Body Temperature 2020-09-15 19:00:00 98.7 [degF] [facility] BP Diastolic 2020-09-15 18:00:00 115 mm[Hg] [facility] BP Systolic 2020-09-15 18:00:00 154 mm[Hg] [facility] Oxygen saturation by 2020-09-15 18:00:00 94 /min [facility] - Pulse oximetry Patients [facility] Heart Rate 2020-09-15 18:00:00 79 /min [facility] Respiratory rate 2020-09-15 18:00:00 19 /min [facility] BP Diastolic 2020-09-15 17:00:00 65 mm[Hg] [facility] BP Systolic 2020-09-15 17:00:00 154 mm[Hg] [facility] Oxygen saturation by 2020-09-15 17:00:00 95 /min [facility] - Pulse oximetry Patients [facility] Heart Rate 2020-09-15 17:00:00 71 /min [facility] Respiratory rate 2020-09-15 17:00:00 18 /min [facility] BP Diastolic 2020-09-15 16:00:00 75 mm[Hg] [facility] BP Systolic 2020-09-15 16:00:00 159 mm[Hg] [facility] Oxygen saturation by 2020-09-15 16:00:00 94 /min [facility] - Pulse oximetry Patients [facility] Heart Rate 2020-09-15 16:00:00 75 /min [facility] Respiratory rate 2020-09-15 16:00:00 16 /min [facility] BP Diastolic 2020-09-15 15:14:00 71 mm[Hg] [facility] BP Systolic 2020-09-15 15:14:00 169 mm[Hg] [facility] Oxygen saturation by 2020-09-15 15:14:00 100 /min [facility] - Pulse oximetry Patients [facility] Heart Rate 2020-09-15 15:14:00 75 /min [facility] Body Temperature 2020-09-15 15:14:00 97.7 [degF] [facility] BP Diastolic 2020-09-15 15:10:00 66 mm[Hg] [facility] - [facility] BP Systolic 2020-09-15 15:10:00 156 mm[Hg] [facility] Oxygen saturation by 2020-09-15 15:10:00 100 /min [facility] - Pulse oximetry Patients [facility] Heart Rate 2020-09-15 15:10:00 74 /min [facility] Respiratory rate 2020-09-15 15:10:00 18 /min [facility] BP Diastolic 2020-09-15 14:50:00 84 mm[Hg] [facility] BP Systolic 2020-09-15 14:50:00 176 mm[Hg] [facility] Oxygen saturation by 2020-09-15 14:50:00 100 /min [facility] - Pulse oximetry Patients [facility] Heart Rate 2020-09-15 14:50:00 81 /min [facility] Respiratory rate 2020-09-15 14:50:00 18 /min [facility] BP Diastolic 2020-09-15 14:40:00 94 mm[Hg] [facility] BP Systolic 2020-09-15 14:40:00 200 mm[Hg] [facility] Oxygen saturation by 2020-09-15 14:40:00 97 /min [facility] - Pulse oximetry Patients [facility] Heart Rate 2020-09-15 14:40:00 96 /min [facility] Respiratory rate 2020-09-15 14:40:00 16 /min [facility] BP Diastolic 2020-09-15 14:25:00 96 mm[Hg] [facility] BP Systolic 2020-09-15 14:25:00 175 mm[Hg] [facility] Oxygen saturation by 2020-09-15 14:25:00 98 /min [facility] - Pulse oximetry Patients [facility] Heart Rate 2020-09-15 14:25:00 99 /min [facility] Respiratory rate 2020-09-15 14:25:00 16 /min [facility] Body Temperature 2020-09-15 14:25:00 98.0 [degF] [facility] BP Diastolic 2020-09-15 11:14:00 67 mm[Hg] [facility] BP Systolic 2020-09-15 11:14:00 177 mm[Hg] [facility] Oxygen saturation by 2020-09-15 11:14:00 94 /min [facility] - Pulse oximetry Patients [facility] Heart Rate 2020-09-15 11:14:00 70 /min [facility] Respiratory rate 2020-09-15 11:14:00 18 /min [facility] Body Temperature 2020-09-15 11:14:00 97.6 [degF] [facility] BP Diastolic 2020-09-15 08:52:00 75 mm[Hg] [facility] BP Systolic 2020-09-15 08:52:00 171 mm[Hg] [facility] Oxygen saturation by 2020-09-15 08:52:00 92 /min [facility] - Pulse oximetry Patients [facility] Heart Rate 2020-09-15 08:52:00 74 /min [facility] Respiratory rate 2020-09-15 08:52:00 18 /min [facility] Body Temperature 2020-09-15 08:52:00 97.6 [degF] [facility] BP Diastolic 2020-09-15 07:45:00 75 mm[Hg] [facility] BP Systolic 2020-09-15 07:45:00 171 mm[Hg] [facility] Oxygen saturation by 2020-09-15 07:45:00 92 /min [facility] - Pulse oximetry Patients [facility] Heart Rate 2020-09-15 07:45:00 74 /min [facility] Respiratory rate 2020-09-15 07:45:00 18 /min [facility] Body Temperature 2020-09-15 07:45:00 97.6 [degF] [facility] BP Diastolic 2020-09-15 04:00:00 56 mm[Hg] [facility] BP Systolic 2020-09-15 04:00:00 156 mm[Hg] [facility] Oxygen saturation by 2020-09-15 04:00:00 93 /min [facility] - Pulse oximetry Patients [facility] Heart Rate 2020-09-15 04:00:00 68 /min [...] [facility] - Pulse oximetry Patients [facility] Heart Rate 2020-09-15 00:00:00 72 /min [...] [facility] - Pulse oximetry Patients [facility] Heart Rate 2020-09-14 20:27:00 90 /min [...] [facility] - Pulse oximetry Patients [facility] Heart Rate 2020-09-14 20:00:00 90 /min [facility] Respiratory rate 2020-09-14 20:00:00 20 /min [facility] Body Temperature 2020-09-14 20:00:00 98.5 [degF] [facility] BP Diastolic 2020-09-14 15:47:00 82 mm[Hg] [facility] BP Systolic 2020-09-14 15:47:00 155 mm[Hg] [facility] Oxygen saturation by 2020-09-14 15:47:00 95 /min [facility] - Pulse oximetry Patients [facility] Heart Rate 2020-09-14 15:47:00 85 /min [...] [facility] - Pulse oximetry Patients [facility] Heart Rate 2020-09-14 11:15:00 89 /min [...] 166 mm[Hg] [facility] Oxygen saturation by 2020-09-14 07:49:00 93 /min [facility] - Pulse oximetry Patients [facility] Heart Rate 2020-09-14 07:49:00 88 /min [facility] Respiratory rate 2020-09-14 07:49:00 18 /min [facility] Body Temperature 2020-09-14 07:49:00 97.9 [degF] [facility] BP Diastolic 2020-09-14 07:31:00 67 mm[Hg] [facility] BP Systolic 2020-09-14 07:31:00 166 mm[Hg] [facility] Oxygen saturation by 2020-09-14 07:31:00 93 /min [facility] - Pulse oximetry Patients [facility] Heart Rate 2020-09-14 07:31:00 88 /min [facility] Respiratory rate 2020-09-14 07:31:00 18 /min [facility] Body Temperature 2020-09-14 07:31:00 97.9 [degF] [facility] BP Diastolic 2020-09-14 04:00:00 74 mm[Hg] [facility] BP Systolic 2020-09-14 04:00:00 175 mm[Hg] [facility] Oxygen saturation by 2020-09-14 04:00:00 94 /min [facility] - Pulse oximetry Patients [facility] Heart Rate 2020-09-14 04:00:00 94 /min [...] [facility] - Pulse oximetry Patients [facility] Heart Rate 2020-09-14 00:00:00 90 /min [...] [facility] - Pulse oximetry Patients [facility] Heart Rate 2020-09-13 20:12:00 88 /min [...] [facility] - Pulse oximetry Patients [facility] Heart Rate 2020-09-13 20:00:00 88 /min [...] [facility] - Pulse oximetry Patients [facility] Heart Rate 2020-09-13 16:11:00 78 /min [...] [facility] - Pulse oximetry Patients [facility] Heart Rate 2020-09-13 12:08:00 82 /min [...] [facility] - Pulse oximetry Patients [facility] Heart Rate 2020-09-13 11:16:00 79 /min [...] [facility] - Pulse oximetry Patients [facility] Heart Rate 2020-09-13 08:45:00 79 /min [...] [facility] - Pulse oximetry Patients [facility] Heart Rate 2020-09-13 04:00:00 87 /min [...] [facility] - Pulse oximetry Patients [facility] Heart Rate 2020-09-13 00:00:00 76 /min [...] [facility] - Pulse oximetry Patients [facility] Heart Rate 2020-09-12 22:28:00 96 /min [facility] Respiratory rate 2020-09-12 22:28:00 18 /min [facility] Body Temperature 2020-09-12 22:28:00 97.9 [degF] [facility] BP Diastolic 2020-09-12 22:18:00 92 mm[Hg] [facility] BP Systolic 2020-09-12 22:18:00 150 mm[Hg] [facility] Oxygen saturation by 2020-09-12 22:18:00 95 /min [facility] - Pulse oximetry Patients [facility] Heart Rate 2020-09-12 22:18:00 96 /min [...] 150 mm[Hg] [facility] - Patients [facility] Oxygen saturation by 2020-09-12 20:23:00 96 /min [facility] - Pulse oximetry Patients [facility] Heart Rate 2020-09-12 20:23:00 95 /min [facility] - Patients [facility] Respiratory rate 2020-09-12 20:23:00 18 /min [facility] - Patients [facility] Body Temperature 2020-09-12 20:23:00 97.9 [degF] [facility] - Patients [facility] Oxygen saturation by 2020-09-12 20:11:00 96 /min [facility] - Pulse oximetry Patients [facility] Oxygen saturation by 2020-09-12 18:25:00 98 /min [facility] - Pulse oximetry Patients [facility] Oxygen saturation by 2020-09-12 15:35:00 98 /min [facility] - Pulse oximetry Patients [facility] Procedures Procedure Date / Time Performing Clinician Source Performed HC COMPLETE BLD COUNT 2021-02-23 09:51:00 [facility] W/AUTO DIFF BASIC METABOLIC PANEL 2021-02-23 09:51:00 [facility] ESTIMATED GFR 2021-02-23 09:51:00 [facility] HC COMPLETE BLD COUNT 2021-02-22 09:32:00 [facility] W/AUTO DIFF BASIC METABOLIC PANEL 2021-02-22 09:32:00 [facility] ESTIMATED GFR 2021-02-22 09:32:00 [facility] HC COMPLETE BLD COUNT 2021-02-21 09:50:00 [facility]/AUTO DIFF BASIC METABOLIC PANEL 2021-02-21 09:50:00 [facility] LIPID PANEL 2021-02-21 09:50:00 [facility] ESTIMATED GFR 2021-02-21 09:50:00 [facility] COVID-19 SEROLOGY PATIENT 2021-02-20 23:58:00 [facility] SURVEILLANCE THYROID STIMULATING 2021-02-20 23:58:00 [facility] HORMONE T4, FREE 2021-02-20 23:58:00 [facility] FERRITIN LEVEL 2021-02-20 23:58:00 [facility] LDH 2021-02-20 23:58:00 [facility] SEDIMENTATION RATE 2021-02-20 23:58:00 [facility] CRP HIGH SENSITIVITY 2021-02-20 23:58:00 [facility] INTERLEUKIN 6 2021-02-20 23:58:00 [facility] PROCALCITONIN 2021-02-20 23:58:00 [facility] D-DIMER 2021-02-20 23:58:00 [facility] PROTHROMBIN TIME WITH INR 2021-02-20 23:58:00 [facility] COVID-19 ANTI-SPIKE IGG 2021-02-20 23:58:00 [facility] ANTIBODY TITER TROPONIN, I-STAT 2021-02-20 15:35:00 [facility] COVID-19 QUALITATIVE 2021-02-20 14:41:00 [facility] ANGIOGRAM PE CHEST 2021-02-20 13:52:50 JanethOsmel cornejo [facility] US DUPLEX VENOUS LOWER 2021-02-20 12:59:12 Isaac Quiles [facility] EXTREMITY RIGHT Narendra URINALYSIS 2021-02-20 12:35:00 Isaac Quiles spital Narendra XR CHEST 1 VW PORTABLE 2021-02-20 12:15:13 Isaac Quiles [facility] BASIC METABOLIC PANEL 2021-02-20 12:10:00 Isaac Quiles [facility] Narendra ESTIMATED GFR 2021-02-20 12:10:00 [facility] RESPIRATORY PATHOGEN 2021-02-20 12:05:[facility]19 Narendra RT-PCR COMPREHENSIVE METABOLIC 2021-02-20 11:55[facility] Narendra CBC WITH PLATELET AND 2021-02-20 11:55:00 [facility] DIFFERENTIAL Narendra CREATINE KINASE, TOTAL 2021-02-20 11:55:00 [facility] Narendra TROPONIN, I-STAT 2021-02-20 11:55:00 [facility] ESTIMATED GFR 2021-02-20 11:55:00 Isaac Quiles [facility] Narendra PROTHROMBIN TIME WITH 2021-02-20 11:55:00 [facility] INR, I-STAT Narendar MANUAL DIFFERENTIAL 2021-02-20 [facility] 12-[facility]AD 2021-02-20 11:33:15 [facility] PRELIMINARY 2021-02-20 11:32:10 [facility] INTERPRETATION Narendra HC COMPLETE BLD COUNT 2020-12-03 10:00:00 [facility] W/AUTO DIFF BASIC METABOLIC PANEL 2020-12-03 09:00:00 [facility] ESTIMATED GFR 2020-12-03 09:00:00 [facility] MRI BRAIN WO CONTRAST 2020-12-02 17:48:00 [facility] BASIC METABOLIC PANEL 2020-12-02 08:52:00 [facility] ESTIMATED GFR 2020-12-02 08:52:00 [facility] HC COMPLETE BLD COUNT 2020-12-02 08:38:00 [facility] W/AUTO DIFF US CAROTID DUPLEX 2020-12-01 20:45:00 [facility] BILATERAL TTE COMPLETE, WO 2020-12-01 16:39:21 [facility] CONTRAST, W DOPPLER ([id number]) HC COMPLETE BLD COUNT 2020-12-01 09:30:00 [facility] W/AUTO DIFF BASIC METABOLIC PANEL 2020-12-01 09:00:00 [facility] ESTIMATED GFR 2020-12-01 09:00:00 [facility] LIPID PANEL 2020-12-01 02:15:00 [facility] THYROID STIMULATING 2020-12-01 02:15:00 [facility] HORMONE T4, FREE 2020-12-01 02:15:00 [facility] TROPONIN 2020-12-01 02:15:00 [facility] HEMOGLOBIN A1C 2020-12-01 01:15:00 [facility] URINALYSIS, AUTOMATED 2020-11-30 22:23:00 [facility] WITH MICROSCOPY COVID-19 QUALITATIVE 2020-11-30 21:44:00 [facility] RT-PCR CT HEAD WO CONTRAST 2020-11-30 19:03:25 [facility] CT ANGIOGRAM PE CHEST 2020-11-30 19:03:13 [facility] ECG ED PRELIMINARY 2020-11-30 17:08:13 [facility] INTERPRETATION B NATRIURETIC PEPTIDE 2020-11-30 16:15:00 [facility] ESTIMATED GFR 2020-11-30 16:15[facility]00 [facility] 2020-11-30 16:15:00 [facility]ital HC COMPLETE BLD COUNT 2020-11-30 16:15:00 [facility] W/AUTO DIFF PROTHROMBIN TIME WITH INR 2020-11-30 16:15:00 [facility] PARTIAL THROMBOPLASTIN 2020-11-30 16:15:00 [facility] TIME (PTT) COMPREHENSIVE METABOLIC 2020-11-30 16:15:[address] [facility] PANEL TROPONIN 2020-11-30 16:15:00 [facility] ECG 12-LEAD 2020-11-30 15:58:05 [facility] Computed tomography of 2020-09-20 00:00:00 RUSTAM Bruno - chest with contrast Patients [facility] Exploratory laparotomy 2020-09-15 00:00:00 RUSTAM [facility] of abdomen and pelvis 2020-03-02 00:00:00 RUSTAM Arora - without contrast Patients [facility] Plan of Care Planned Activity Planned Date Details Comments Source Future Scheduled Test 65+ PNEUMOCOCCAL Me [facility] VACCINE (1 of 2 - PPSV23) [code = 65+ PNEUMOCOCCAL VACCINE (1 of 2 - PPSV23)] Future Scheduled Test COVID-19 VACCINE (1) [facility] [code = COVID-19 VACCINE (1)] Future Scheduled Test SHINGLES VACCINES (#1) [facility] [code = SHINGLES VACCINES (#1)] Future Scheduled Test INFLUENZA VACCINE [code [facility] = INFLUENZA VACCINE] Encounters Start End Encounter Admission Attending Care Care Encounter Source Date/Time Date/Time Type Type Clinicians Facility Department ID 2021-02-20 [id number] Methodi 06:07:00 13:24:00 Encounter Andrew Calix Rachna [id number] 3.430.2.7 Hospit a .3.861276 l .8 2021-02-20 2021-02-23 Inpatient FIFI [facility] [id number] [place] 00:00:00 00:00:00 ANDREW [address] 2021-02-20 2021-02-20 Travel 1.2.840.1 1.2.433.932 [id number] Methodi 00:00:00 00:00:[address] 3.430.2.7 0.2.7.3.698 Ho spita .3.474906 084.8 l .8 2020-12-29 2020-12-29 Office IVONE Neal 1.2.840.114 [id number] 12:52:54 13:35:06 Visit Melody Dodson [facility] 350.1.13.10 [place] 4.2.7.2.686 [id number] nal 044 Office Building One 2020-11-30 2020-12-04 [facility] Elliot Parkinson 1.2.840.1 [id number] Methodi 10:51:00 15:23:00 [place]counter [place]. [address].1.[address] 3.430.2.7 Hospit a .3.257658 l .8 2020-11-30 2020-12-04 Inpatient FIFI [facility] [id number] [place] 00:00:00 00:00:00 ANDREW [address] 2020-11-30 2020-11-30 Travel 1.2.840.1 1.2.913.156 [id number] Methodi 00:00:00 00:00:[address] 3.430.2.7 0.2.7.3.698 Ho spita .3.001336 084.8 l .8 2020-09-12 2020-09-28 Discharged 1 [facility] [id number] [facility] [address] 19:18:00 13:20:00 Inpatient SOUHEIL Patients 99 [facility] 2020-03-02 2020-03-02 Registered 3 [facility] [id number] 13:32:00 13:32:00 Clinic JEANNINE Patients 29 [facility] Results Test Description Test Time Test Comments Results Result Comments Source ECG 12 lead 2021-02-20 17:04:06 Test Item Value Reference Range Interpretation Comme nts Ventricular rate (test code = 253) Atrial rate (test code = 255) NH interval (test code = 266) QRSD interval (test code = 260) QT interval (test code = 264) QTC interval (test code = 265) P axis 1 (test code = 267) QRS axis 1 (test code = 268) T wave axis (test code = 270) EKG impression (test code = 273) Normal sinus rhythm-Normal ECG-In automated comparison with ECG of 30-NOV-2020 10:58,-No significant change was found- [facility] Pe Jhlfe0931-47-19 13:59:27EXAMINATION: CT ANGIOGRAM PE CHEST HISTORY: 89 years old Male. PE suspected high prob. COMPARISON:CTA chest 11/30/2020 TECHNIQUE: CT angiography of the chest was performed with IV contrast. 3-D reconstructions were created on a separate workstation and submitted for interpretation. CT images were acquired using low- dose technique with automated exposure control. 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 No pulmonary embolism.Main pulmonary artery is normal in caliber. Thoracic aorta is normal in caliber. Mild cardiomegaly with left atrial enlargement. No pericardial effus ion. Heavy atherosclerotic calcification of the coronary arteries and thoracic aorta. Lungs: Trace paramediastinal atelectasis in the right lower lobe medially. Trace groundglass in the left lower lobe, likely infectious/inflammatory. Mild smooth interlobular septal thickening in the lower lungs bilaterally. No confluent consolidation. No significant pleural effusion or pneumothorax. Lymph nodes: No supraclavicular, axillary or mediastinal lymphadenopathy. Other findings: 0.7 cm calcified right thyroid nodule. Visualized Upper abdomen: Small hiatal hernia. 6.2 cm cyst with thin calcified septationin the right kidney superior pole. 4.1 cm left renal cyst. 1.4 cm cyst in the left anterior kidney. 0.7 cm hypoattenuating lesion in the right kidney superior pole, too small to characterize. Musculoskeletal: No suspicious lytic or blastic osseous lesions. Age appropriate degenerative changes of the spine. The superficial soft tissues are unremarkable. IMPRESSION: 1. No pulmonary embolism. 2. Trace groundglass in the left lower lobe, likely infectious/inflammatory. Mild smooth interlobular septal thickening in the lower lungs, likely mild pulmonary edema. [id number] Interface, Radiology Results Incoming - 02/20/2021 9:02 AM CDT EXAMINATION: CT ANGIOGRAM PE CHEST HISTORY: 89 years old Male. PE suspected high prob.COMPARISON: CTA chest 11/30/2020TECHNIQUE: CT angiography of the chest was performed with IV contrast. 3-D reconstructions were created on a separate workstation and submitted for interpretation. CT images were acquired using low-dose technique with automated exposure control.FINDINGS: Heart, vasculature: Transcatheter aortic valve replacement postoperative changes. Median sternotomy and coronary arterial bypass graft postoperative changes. No pulmonary embolism.Main pulmonary artery is normal in caliber. Thoracic aortais normal in caliber. Mild cardiomegaly with left atrial enlargement. No pericardial effusion. Heavy atherosclerotic calcification of the coronary arteries and thoracic aorta.Lungs: Trace paramediastinal atelectasis in the right lower lobe medially. Trace groundglass in the left lower lobe, likely in fectious/inflammatory. Mild smooth interlobular septal thickening in the lower lungs bilaterally. Noconfluent consolidation. No significant pleural effusion or pneumothorax.Lymph nodes: No supraclavicular, axillary or mediastinal lymphadenopathy. Other findings: 0.7 cm calcified right thyroid nodule.V isualized Upper abdomen: Small hiatal hernia. 6.2 cm cyst with thin calcified septation in the rightkidney superior pole. 4.1 cm left renal cyst. 1.4 cm cyst in the left anterior kidney. 0.7 cm hypoattenuating lesion in the right kidney superior pole, too small to characterize. Musculoskeletal: No suspicious lytic or blastic osseous lesions. Age appropriate degenerative changes of the spine. The superficial soft tissues are unremarkable. IMPRESSION: 1. No pulmonary embolism.2. Trace groundglass in the left lower lobe, likely infectious/inflammatory. Mild smooth interlobular septal thickening in the lower lungs, likely mild pulmonary edema.[id number] duplex venous lower [id number] 12:59:58EXAMINATION: US DUPLEX VENOUS LOWER EXTREMITY RIGHT CLINICAL HISTORY: Leg deep vein thrombosis (DVT) suspected COMPARISON: None. TECHNIQUE: Grayscale, color Doppler, and spectral waveform analysis of the right lower extremity deep venous system was performed. The common femoral, superficial femoral, proximal deep femoral, greater saphenous, and popliteal veins were evaluated. The calf veins were also evaluated. FINDINGS:The right common femoral, superficial femoral, and popliteal veins are compressible as is the limited evaluation of the left common femoral vein. They demonstrate normal venous waveforms and response to augmentation. There is flow in the visualized calf veins. There is no evidence of a popliteal or Martinez's cyst. IMPRESSION: No evidence of DVT within the right lower extremity named vessels as described above. [facility]-[id number] Interface, Radiology Results 02/20/2021 8:03 AM CDT EXAMINATION: US DUPLEX VENOUS LOWER EXTREMITY RIGHTCLINICAL HISTORY: Leg deep vein thrombosis (DVT) suspectedCOMPARISON: None.TECHNIQUE: Grayscale, color Doppler, and spectral waveform analysis of the right lower extremity deep venous system was performed. The common femoral, superficial femoral, proximal deep femoral, greater saphenous, and popliteal veins were evaluated. The calf veins were also evaluated.FINDINGS:The right common femoral, superficial femoral, and popliteal veins are compressible as is the limited evaluation of the left common femoral vein. They demonstrate normal venous waveforms and response to augmentation. There is flow in the visualized calf veins.There is no evidence of a popliteal or Martinez's cyst.IMPRESSION:No evidence of DVT within the right lower extremity named vessels as described above. [facility]-[id number] HospitalXR Chest 1 Vw [id number] 12:29:01EXAMINATION: XR CHEST 1 VW PORTABLE CLINICAL HISTORY: increased phlemg tachypnea r o PNA COMPARISON: December 11, 2017 IMPRESSION: Lungs are hypoexpanded Minimal patchy bibasilar atelectasis. No focal infiltrate No congestion or effusion is. No visible pneumothorax The Cardiomediastinal silhouette is normal in size. TAVR sternotomy wires and atherosclerosis unchanged Underlying osteopenia No acute bony abnormality Cholecystectomy clips Single view chest. [id number] Interface, Radiology Results Incoming - 02/20/2021 7:32 AM CDT EXAMINATION: XR CHEST 1 VW PORTABLECLINICAL HISTORY: increased phlemg tachypnea r o PNACOMPARISON: December 11, 2017IMPRESSION:Lungs are hypoexpandedMinimal patchy bibasilar atelectasis.No focal infiltrateNo congestion or effusion is. No visible pneumothoraxThe Cardiomediastinal silhouette is normal in size. TAVR sternotomy wires and atherosclerosis unchangedUnderlying osteopeniaNo acute bony abnormalityChole cystectomy clipsSingle view chest.[id number] Preliminary Interpretation - Not an [id number] 11:32:10Osmel Fowler MD 02/20/2021 10:18 [facility] ED Preliminary Interpretation - Not an OrderPerform ed by: Isaac Quiles MDAuthorized by: Isaac Quiles MD Interpretation: Interpretation: non-specific Quality: Tracing quality: Limited by artifactRate: ECG rate: 65 ECG rate assessment: normal Rhythm: Rhythm: sinus rhythm ST segments: ST segments: Non-specificT waves: T waves: non-specificMethodist ZkhaatdpGBSG-HkS-8 (COVID-19) RNA [Presence] in Respiratory specimen by MARSHA with probe [id number] 10:16:54 Test Item Value Reference Range Interpretation Comments SARS-CoV-2 (COVID-19) RNA Not detected Not-Detected [Presence] in Respiratory specimen by MARSHA with probe detection (test code = 16619-1) Whether patient is employed in a healthcare setting (test code = 85353-6) Whether the patient has symptoms related to condition of interest (test code = 77053-3) Patient was hospitalized because of this condition (test code = 44866-0) Whether the patient was admitted to intensive care unit (ICU) for condition of interest (test code = 38367-5) Whether patient resides in a congregate care setting (test code = 31941-9) status (test code = 27841-0) MRI Brain Wo [id number] 18:04:52EXAMINATION: MRI BRAIN WO CONTRAST CLINICAL HISTORY: Memory Loss COMPARISON: CT head 11/30/2020 TECHNIQUE: Noncontrast brain MRI, including 3D SPGR, SWAN, and pCASL with PLD of 2.5 seconds. Regional brain segmentation and volumetric analysis was processed with Neuroreader software on an independent workstation and reviewed. FINDINGS: No evidence of acute intracranial hemorrhage, mass, mass effect, acute infarct, or midline shift. No evidence of prior territorial ischemia. Scattered subcortical and patchy periventricular white matter T2 FLAIR hyperintensity likely reflecting mild chronic microvascular ischemic change. Small chronic cortical insult involving the left cerebellar hemisphere. No evidence of abnormal susceptibility to suggest sequela of prior microhemorrhage. Mineralization of the bilateral globi pallidi. The major intracranial vascular flow voids appear preserved. Visually, there appears to be moderate cerebral and mild to moderate cerebellar volume loss without distinct lobar asymmetry. Unremarkable volume and morphology the brainstem. Volumetric analysis percentiles with Neuroreader: Whole brain matter: 45% Right hippocampus: 25% (appears exaggerated upon visual inspection)Left hippocampus: 45% Hippocampal asymmetry index and Z score: 0.20, 1.0 Right temporal lobe: 49%Left temporal lobe: 45% Right frontal lobe: 42%Left frontal lobe: 42% Right parietal lobe: 33%Left parietal lobe: 42% Right occipital lobe: 62%Left occipital lobe: 68% See full report in PACS. ASL perfusion: Nonspecific diffuse hypoperfusion. IMPRESSION: No structural evidence of neurodegenerative disease. [id number] Interface, Radiology Results Incoming - 12/02/2020 1:08 PM CDT EXAMINATION: MRI BRAIN WO CONTRASTCLINICAL HISTORY: Memory LossCOMPARISON: CT head 11/30/2020TECHNIQUE: Noncontrast brain MRI, including 3D SPGR, SWAN, and pCASL with PLD of 2.5 seconds. Regional brain segmentation and volumetric analysis was processed with Neuroreader software on an independent workstation and reviewed.FINDINGS:No evidence of acute intracranial hemorrhage, mass, mass effect, acute infarct, or midline shift.No evidence of prior territorialischemia. Scattered subcortical and patchy periventricular white matter T2 FLAIR hyperintensity likely reflecting mild chronic microvascular ischemic change. Small chronic cortical insult involving theleft cerebellar hemisphere. No evidence of abnormal susceptibility to suggest sequela of prior microhemorrhage. Mineralization of the bilateral globi pallidi. The major intracranial vascular flow voidsappear preserved.Visually, there appears to be moderate cerebral [...] full report in PACS.ASL perfusion: Nonspecific diffuse hypoperfusion.IMPRESSION:No structural evidence of neurodegenerative disease.[id number] HospitalPv carotid [id number] 02:56:00 Vascular Ultrasound Laboratory Carotid Artery Duplex Report [address] [place] [address] For food quality technician purposes, the categorization of the degree of the stenosis of this exam is based on criteria described in the IAC carotid stenosis grading white paper( ww w.[email or web address].org/Vascular) and Jana Angulo, Zuri Ruth, et al. Carotid artery stenosis: davis-scale and Doppler US diagnosis--Society of Radiologists in Ultrasound Consensus Conference. Radiology. 2003 Nov; 229(2):340-6. Pat.Name: JUSTICE HARDY.ID: [id number] .Date: 12/01/2020 Refer.MD: ANDREW CALIX MD Exam Time: 3:19:00 PM Study Type:Carotid Height: 64in Weight: 120lb BSA: 1.58 m2 Age: 6 1930,89Y Sex: MALE Sonogrphr: VINCENZO Leigh. Stat.:Inpatient Room: [address] Tape Vol: GB, CPT - 4: 76246 Echo Event ID:[id number] Order ID: [id number] Reason for Study:Altered mental status. 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 FINDINGS: Carotid Findings: Right Left Verteb.Flw Antegrade Antegrade Subclavian Biphasic Biphasic --------MEASUREMENTS: DOPPLERLeftCCA Dist CCA Dist PSV 78.6 cm/s CCA Dist EDV 12.3 cm/sLeft CCA Mid CCA Mid PSV 97.3 cm/s CCA Mid EDV 11.1 cm/sLeft CCA Prox CCA Prox PSV 91.5 cm/s CCA Prox EDV 9.38 cm/sLeft ICA Dist ICA Dist PSV 97.3 cm/s ICA Dist EDV 20.5 cm/sLeftICA Mid ICA Mid PSV 104 cm/s ICA [...] cm/sRight ICA Mid ICA Mid PSV 58.6 cm/Krissy Mid EDV 12.9 cm/sRight ICA Prox ICA Prox PSV 79.7 cm/s ICA Prox EDV 10.6 cm/sRight ECA Prox ECA Prox PSV 103 cm/s ECA Prox EDV 0 cm/sRight SCA Prox SCA Prox PSV 143 cm/s Right Vertebral Vertebral PSV 53.9 cm/s Vertebral EDV 11.1 cm/sRight ICA/CCA Ratio ICA/CCA PSV 1.05 Left ICA/CCA Ratio ICA/CCA PSV 0.621 Signed 12/01/2020 09:56 PMShiva Leahy MD, RPVIInterface, Radiology Results In - 12/01/2020 9:57 PM CDT Vascular Ultrasound Laboratory Carotid Artery Duplex Report [address] [place] [address] For food quality technician purposes, the categorization of the degree of the stenosis of this examis based on criteria described in the IAC carotid stenosis grading white paper( www.intersocietal.org/Vascular) and Shakira Angulo., Faraz, CChunB., et al. Carotid artery stenosis: davis-scale and Doppler US diagnosis--Society of Radiologists in Ultrasound Consensus Conference. Radiology. 2003 Nov; 229(2):340 -6. Pat.Name: JUSTICE HARDY Pat.ID: [id number] .Date: 12/01/2020 Refer.MD: ANDREW CALIX MD Exam Time: 3:19:00 PM Study Type:Carotid Height: 64in Weight: 120lb BSA: 1.58 m2 Age: 6 1930,89Y Sex: MALE Sonogrphr: VINCENZO Leigh Pat. Stat.:Inpatient Room: [address] Tape Vol: GB, CPT - 4: 72092 Echo Event ID:[id number] Order ID: [id number] Reason for Study:Altered mental status. 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 There ishard and calcified plaque noted in the bulb extending into theproximal internal and external carotid arteries. Colorflow is normal. LEFT: There is hardplaque in the common carotid artery. There ishard and calcified plaque noted in the bulb extending into theproximal internal and external carotid arteries. Colorflow is normal. PRELIMINARY FINDINGS1.Non- stenotic plaque in the common carotid artery, bilaterally.2. <50% stenosis in the bulb and internal carotid artery,bilaterally. 3. <50% stenosis in the external carotid artery, bilaterally. 4. Both vertebral arteries are antegrade.PHYSICIAN INTERPRETATION Bilateral carotid duplex examination demonstrated atheroscleroticplaques in the bulbs/ CCAs. Less than 50% stenosis in the bulb and internal carotid artery,bilaterally.Both vertebral arteries are antegrade. ----FINDINGS: Carotid Findings: Right Left Verteb.Flw Antegrade Antegrade Subclavian Biphasic Biphasic MEASUREMENT S: DOPPLERLeft CCA Dist CCA Dist PSV 78.6 [...] PSV 71.5 cm/s CCA Dist EDV 9.38 c m/sRight CCA Mid CCA Mid PSV 76.2 cm/s [...] PSV 53.9 cm/s Vertebral EDV 11.1 cm/sRight ICA/CCARatio ICA/CCA PSV 1.05 Left ICA/CCA Ratio ICA/CCA PSV 0.621 Signed 12/01/2020 09:56 Husam Leahy MD, [facility] Transthoracic Echocardiogram Complete, (w Contrast, Strain and 3D if needed) 2020-12-01 19:37:00 Echocardiography Report [id number] [address] Pat.Name: JUSTICE HARDY Pat.ID: [id number] .Date: 12/01/2020 Refer.MD: ANDREW CALIX MDExam Time: 10:51:00 AM Study Type:Routine Echo Height: 64in Weight: 120lb BSA: 1.58 m2 Age: 7 1930,89Y Sex: MALE BP: 183/90 HR: 90 bpm Sonogrphr: ROSIE Mishra Pat. Stat.:Inpatient Room: [facility] Study Status:Final Echo Event ID:[id number] ID: [id number] Reason for Study:hx of TAVR History / Clinical:Valvular Heart Disease; Aortic StenosisProcedures: 2D Echo, Colorflow Doppler, StrainRace: SUMMARY: Normal average LV global longitudinal strain at -17.6%. LV EF ishyperdynamic. Estimated EF is >70%.RV size is normal. RV systolic function is normal.Transcatheter bioprosthetic aortic valve. Transcatheter AV Doppl ervelocity index is 0.7 (normal >0.50).Mild paravalvular aortic [...] Insufficient TR jet to estimate PA systolic p ressure. MEASUREMENTS: 2DParasternal Long [place] Ao An 1.9 cm LVPWd0.94 cm Ao Rtd 3 cm Index 1.9 cm/m2 LA Ds 4.2cm IVSd 0.93 cm RWT 0.39 LVIDd 4.8 cmIndex 3 cm/m2 LV Mass 155 g (122-174) [...] LVOT CI 3.7 l/m/m2 Signed 12/01/2020 02:37 PMSherif Mara Magdaleno M.D.Interface, Radiology Results In - 12/01/2020 2:38 PM CDT Echocardiography Report [address] [place] [address] Pat.Name: JUSTICE HARDY Pat.ID: [id number] .Date: 12/01/2020 Refer.MD: ANDREW CALIX MDExfay Time: 10:51:00 AM Study Type:Routine Echo Height: 64in Weight: 120lb BSA: 1.58 m2 Age: 7 1930,89Y Sex: MALE BP: 183/90 HR: 90 bpm Sonogrphr: ROSIE Mishra Pat. Stat.:Inpatient Room: [facility] Study Status:Final Echo Event ID:[id number] Order ID: [id number] Reason for Study:hx of TAVR History / Clinical:Valvular Heart Disease; Aortic StenosisProcedures: 2D Echo, Colorflow Doppler, StrainRace: SUMMARY: ------Normal average LV global longitudinal strain at -17.6%. LV EF ishyperdynamic. Estimated EF is >70%.RV size is normal. RV systolic function is normal.Transcatheter bioprosthetic aortic valve. Transcatheter AV Dopplervelocity index is 0.7 (normal >0.50).Mild paravalvular aortic regurgitation. FINDINGS: -LV: LV size is normal. Normal average LV [...] jet to estimate PA systolic pressure. MEASUREMENTS: 2DParasternal Long [place] Ao An 1.9 cm LVPWd 0.94 cm [...] 2.8 cm2 DOPPLERAV For Flow/AUGIE AV pkVel 247cm/s (100-170)* AV AC/ET 0.17 AV mnVel 133 [...] LVOT CI 3.7 l/m/m2 Signed 12/01/2020 02:37 Aunsha Magdaleno M.D.[facility] SARS-CoV-2 (COVID-19) RNA [Presence] in Respiratory specimen by MARSHA with probe [id number] 21:29:57 Test Item Value Reference Range Interpretation Comments SARS-CoV-2 (COVID-19) RNA Not detected Not-Detected [Presence] in Respiratory specimen by MARSHA with probe detection (test code = 81721-8) Whether patient is employed in a healthcare setting (test code = 04930-2) Whether the patient has symptoms related to condition of interest (test code = 38116-9) Patient was hospitalized because of this condition (test code = 16465-6) Whether the patient was admitted to intensive care unit (ICU) for condition of interest (test code = 51826-7) Whether patient resides in a congregate care setting (test code = 83011-0) CT Head Wo [id number] 19:08:27EXAMINATION: CT HEAD WO CONTRAST CLINICAL HISTORY: confused COMPARISON: None. TECHNIQUE: CT imaging was performed with iterative reconstruction technique and/or automated exposure control to reduce r adiation dose. Findings: No intracranial hemorrhage, acute transcortical ischemia, extra-axial fluidcollections or parenchymal mass lesions. No skull fractures or aggressive bony lesions. Mild chronicischemic small slight matter changes. 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 Dystrophic calci fications in the deep davis nuclei. Paranasal sinuses and mastoid air cells are clear. IMPRESSION: Noacute intracranial abnormalities. [facility]-[id number] Interface, Radiology Results Incoming - 11/30/2020 2:11 PM CDT EXAMINATION: CT HEAD [...] mastoid air cells are clear.IMPRESSION:No acute intracranial abnormalities .[facility]-[id number] leukocytes automated count (number/volume)2020-09-28 05:25:00 Test Item Value Reference Range Interpretation Comments White Blood Count (test code = 6690-2) 10.37 4.8-10.8 [facility] erythrocytes automated count (number/volume)2020-09-28 05:25:00 Test Item Value Reference Range Interpretation Comments Red Blood Count (test code = 789-8) 3.00 4.3-5.7 [facility] hemoglobin measurement (moles/volume)2020-09-28 05:25:00 Test Item Value Reference Range Interpretation Comments Hemoglobin (test code = 08589-1) 9.1 14.0-18.0 [facility] blood hematocrit (volume fraction)2020-09-28 05:25:00 Test Item Value Reference Range Interpretation Comments Hematocrit (test code = 4544-3) 26.0 38.2-49.6 [facility]cos[facility] erythrocyte mean corpuscular [id number] 05:25:00 Test Item Value Reference Range Interpretation Comments Mean Corpuscular Volume (test code = 86.7 81-99 787-2) [facility] erythrocyte mean corpuscular hemoglobin (mass per erythrocyte)2020-09-28 05:25:00 Test Item Value Reference Range Interpretation Comments Mean Corpuscular Hemoglobin (test code 30.3 28-32 = 785-6) [facility] eryth[facility] mean corpuscular hemoglobin concentration measurement (mass/volume)2020-09-28 05:25:00 Test Item Value Reference Range Interpretation Comments Mean Corpuscular Hemoglobin Concent 35.0 31-35 (test code = 786-4) [facility] MarcosRDW BekCo-Fut5406-55-01 05:25:00 Test Item Value Reference Range Interpretation Comments Red Cell Distribution Width (test code 16.1 11.7-14.4 = 21305-1) [facility]cosAutom[facility] blood platelet count (count/volume)2020-09-28 05:25:00 Test Item Value Reference Range Interpretation Comments Platelet Count (test code = 777-3) 253 140-360 [facility]cosAutom[facility] blood segmented neutrophil count as percentage of total kvycblyrvs9892-20-35 05:25:00 Test Item Value Reference Range Interpretation Comments Neutrophils (%) (Auto) (test code = 77.9 38.7-80.0 27982-1) [facility] blood lymphocyte count as percentage ot total nxabqxymzy2608-47-49 05:25:00 Test Item Value Reference Range Interpretation Comments Lymphocytes (%) (Auto) (test code = 12.3 18.0-39.1 736-9) [facility] blood monocyte count as percentage of total cnyjwzyukc3396-35-80 05:25:00 Test Item Value Reference Range Interpretation Comments Monocytes (%) (Auto) (test code = 6.4 4.4-11.3 5905-5) [facility] blood eosinophil count as percentage of total ezfmniyskg3384-97-39 05:25:00 Test Item Value Reference Range Interpretation Comments Eosinophils (%) (Auto) (test code = 1.8 0.0-6.0 713-8) [facility] blood basophil count as percentage of total eysvwjelyr2777-05-75 05:25:00 Test Item Value Reference Range Interpretation Comments Basophils (%) (Auto) (test code = 0.4 0.0-1.0 706-2) [facility]cosFluoroscopic procedure less than one hour ronppspc3794-39-60 05:25:00 Test Item Value Reference Range Interpretation Comments IM GRANULOCYTES % (test code = IM 1.2 0.0-1.0 GRANULOCYTES %) [facility] blood neutrophil count 2020-09-28 05:25:00 Test Item Value Reference Range Interpretation Comments Neutrophils # (Auto) (test code = 8.1 2.1-6.9 751-8) [facility]cosBlood lymphocytes count (number/volume) 2020-09-28 05:25:00 Test Item Value Reference Range Interpretation Comments Lymphocytes # (Auto) (test code = 1.3 1.0-3.2 74357-2) [facility]cosBlood monocytes automated count (number/volume)2020-09-28 05:25:00 Test Item Value Reference Range Interpretation Comments Monocytes # (Auto) (test code = 742-7) 0.7 0.2-0.8 [facility] blood eosinophil count 2020-09-28 05:25:00 Test Item Value Reference Range Interpretation Comments Eosinophils # (Auto) (test code = 0.2 0.0-0.4 711-2) [facility]Autom[facility] blood basophil count (count/volume)2020-09-28 05:25:00 Test Item Value Reference Range Interpretation Comments Basophils # (Auto) (test code = 704-7) 0.0 0.0-0.1 [facility]cosFluoroscopic procedure less than one hour ipzohmts8137-18-16 05:25:00 Test Item Value Reference Range Interpretation Comments Absolute Immature Granulocyte (auto 0.12 0-0.1 (test code = Absolute Immature Granulocyte (auto) [facility] sodium measurement (moles/volume)2020-09-28 05:25:00 Test Item Value Reference Range Interpretation Comments Sodium Level (test code = 2951-2) 132 136-145 [facility] plasma potassium measurement (moles/volume)2020-09-28 05:25:00 Test Item Value Reference Range Interpretation Comments Potassium Level (test code = 2823-3) 3.3 3.5-5.1 [facility] plasma chloride measurement (moles/volume)2020-09-28 05:25:00 Test Item Value Reference Range Interpretation Comments Chloride Level (test code = 2075-0) 106 98-107 [facility] Renaissance[facility] plasma carbon dioxide, total measurement (moles/volume)2020-09-28 05:25:00 Test Item Value Reference Range Interpretation Comments Carbon Dioxide Level (test code = 2027-) [facility] Renaissanceer[facility] or plasma anion rbj4326-55-70 05:25:00 Test Item Value Reference Range Interpretation Comments Anion Gap (test code = 42322-8) 9.3 8-16 [facility] plasma urea nitrogen measurement (mass/volume)2020-09-28 05:25:00 Test Item Value Reference Range Interpretation Comments Blood Urea Nitrogen (test code = 18 01-22 3094-0) [facility] creatinine measurement (mass/volume)2020-09-28 05:25:00 Test Item Value Reference Range Interpretation Comments Creatinine (test code = 2160-0) 0.83 0.72-1.25 [facility]er[facility] plasma urea nitrogen/creatinine mass taluo1322-88-10 05:25:00 Test Item Value Reference Range Interpretation Comments BUN/Creatinine Ratio (test code = 12-22 3097-3) [facility]cosEstimated glomerular filtration rate (GFR) osxslscckotfy5442-18-38 05:25:00 Test Item Value Reference Range Interpretation Comments Estimat Glomerular > 60 See_Comment [Automat ed message] The Filtration Rate (test system which generated code = 010407711) this resul t transmitted reference range : 60-. The reference r duane was not used to int erpret this result as normal/abnormal . [facility]cosGlucose kccnopuxubo4187-15-28 05:25:00 Test Item Value Reference Range Interpretation Comments Glucose Level (test code = KYQ5674) 104 74-118 [facility] calcium measurement (mass/volume)2020-09-28 05:25:00 Test Item Value Reference Range Interpretation Comments Calcium Level (test code = 49751-7) 7.4 8.4-10.2 [facility] plasma total bilirubin measurement (mass/volume)2020-09-28 05:25:00 Test Item Value Reference Range Interpretation Comments Total Bilirubin (test code = 1975-2) 0.7 0.2-1.2 [facility]cosFluoroscopic procedure less than one hour heymitwu6542-43-56 05:25:00 Test Item Value Reference Range Interpretation Comments Aspartate Amino Transf (AST/SGOT) (test 74 5-34 code = Aspartate Amino Transf (AST/SGOT)) [facility] plasma alanine aminotransferase measurement (enzymatic activity/volume)2020-09-28 05:25:00 Test Item Value Reference Range Interpretation Comments Alanine Aminotransferase (ALT/SGPT) 107 0-55 (test code = 1742-6) [facility] plasma protein measurement (mass/volume)2020-09-28 05:25:00 Test Item Value Reference Range Interpretation Comments Total Protein (test code = 2885-2) 4.2 6.5-8.1 [facility] Renaissanceer[facility] or plasma albumin measurement (mass/volume)2020-09-28 05:25:00 Test Item Value Reference Range Interpretation Comments Albumin (test code = 1751-7) 1.9 3.5-5.0 [facility]cosPlasma globulin measurement (mass/volume) 2020-09-28 05:25:00 Test Item Value Reference Range Interpretation Comments Globulin (test code = 96427-3) 2.3 2.3-3.5 [facility]er[facility] or plasma albumin/globulin mass btzfa1746-71-64 05:25:00 Test Item Value Reference Range Interpretation Comments Albumin/Globulin Ratio (test code = 0.8 0.8-2.0 1759-0) [facility] plasma alkaline phosphatase measurement (enzymatic activity/volume)2020-09-28 05:25:00 Test Item Value Reference Range Interpretation Comments Alkaline Phosphatase (test code = 100 40-150 6768-6) [facility]cosTroponin I measurement by highly sensitive enzyme ecsfrplrwak4110-56-41 05:25:00 Test Item Value Reference Range Interpretation Comments Troponin I (test code = 60871-2) 0.109 0-0.300 [facility]2020-09-26 10:41:00[facility] : 1930 Sex: M [place] [address] Patient Name: JUSTICE HARDY MR #: [id number] : 1930 Age/Sex: 89/M Req #: [id number] [facility] Physician: ZACHARIAH SAINI MD Ordered by: ARASH CASTORENA MD Report #: [id number] Location: MED/SURG Room/Bed: [facility] Procedure: [id number] DX/CHEST SINGLE (PORTABLE) Exam Date: 09/26/20 Exam [...] AYDEN on 09/26/201047 COPY TO: ARASH CASTORENA [facility] 2020-09-26 09:13:00 [facility] : 1930 Sex: M [place] [address] Patient Name: JUSTICE HARDY MR #: [id number] : 1930 Age/Sex: 89/M Req #: [id number] Adm Physician: ZACHARIAH SAINI MD Ordered by: JEANNINE SAINI MD Report #: [id number] Location: MED/SURG Room/Bed: [facility] Procedure: [id number] DX/ABDOMEN 2 VIEW Exam Date: 09/26/20 Exam [...] Natriuretic Peptide (test code = 50.2 0-100 93344-2) [facility] amylase measurement (enzymatic activity/volume)2020-09-26 05:17:00 Test Item Value Reference Range Interpretation Comments Amylase Level (test code = 1798-8) 98 25-125 [facility]er[facility] plasma lipase measurement (enzymatic activity/volume)2020-09-26 05:17:00 Test Item Value Reference Range Interpretation Comments Lipase (test code = 3040-3) 98 8-78 [facility]cosABDOM[facility] 2 ALXC5967-89-62 23:59:00 [facility] : 1930 Sex: M [facility] [address] [place] [address] Patient Name: JUSTICE HARDY MR #: [id number] : 1930 Age/Sex: 89/M Req #: [id number] Adm Physician: ZACHARIAH SAINI MD Ordered by: JEANNINE SAINI MD Report #: [id number] Location: MED/SURG Room/Bed: [facility] Procedure: [id number] DX/ABDOMEN 2 VIEW Exam Date: 09/24/20 Exam Time: 2330 REPORT STATUS: Signed EXAM: Abdomen Radiograph 2 View(s) INDICATION: bloody stool [id number] 2330 Y COMPARISON: 09/15/2019 FINDINGS: Prosthetic heart valve [...] levels are seen in the right hemiabdomen. [place] lucency in the upper abdomen on the upright view projecting over the T12 vertebral body , likely represents pneumoperitoneum IMPRESSION: 1. Overall appearance of postsurgical ileus with diffuse mildly dilated small bowel and distended air distended colon to the level of the rectum. Distal obstruction is not excluded. Recommend radiographic follow-up until resolution. 2. [place] lucency projecting over the T12 vertebral body may represent pneumoperitoneum as seen on recent chest CT, possibly related to recent surgery. Signed by: Patricia Wheat MD on 09/25/2020 12:48 AM Dictated By: TIESHA WHEAT MD Transcribed By: AYDEN on 09/25/2047 COPY TO: JEANNINE SAINIerum or plasma magnesium measurement (mass/volume)2020-09-23 16:40:00 Test Item Value Reference Range Interpretation Comments Magnesium Level (test code = 76290-5) 1.5 1.3-2.1 [facility]Fluoroscopic procedure less than one hour qgevspcm0807-27-28 08:51:00 Test Item Value Reference Range Interpretation Comments Differential Total Cells Counted (test 100 code = Differential Total Cells Counted) [facility] blood neutrophils/100 leukocytes 2020-09-22 08:51:00 Test Item Value Reference Range Interpretation Comments Neutrophils % (Manual) (test code = 86 40-74 22986-2) [facility] blood band neutrophils form/100 bzxksmlnox5021-34-74 08:51:00 Test Item Value Reference Range Interpretation Comments Band Neutrophils % (test code = 764-1) 0 [facility] blood lymphocytes/100 leukocytes 2020-09-22 08:51:00 Test Item Value Reference Range Interpretation Comments Lymphocytes % (Manual) (test code = 7 19-48 737-7) [facility] blood monocytes/100 leukocytes 2020-09-22 08:51:00 Test Item Value Reference Range Interpretation Comments Monocytes % (Manual) (test code = 7 3.4-9.0 744-3) [facility] reticulocyte count as percentage of total dceryzlrfzcm6558-64-89 05:15:00 Test Item Value Reference Range Interpretation Comments Percent Reticulocyte Count (test code = 1.5 0.8-2.2 66817-2) [facility] iron measurement (mass/volume)2020-09-21 05:15:00 Test Item Value Reference Range Interpretation Comments Iron Level (test code = 2498-4) 26 65-175 [facility] iron binding capacity measurement (mass/volume)2020-09-21 05:15:00 Test Item Value Reference Range Interpretation Comments Total Iron Binding Capacity (test code 193 261-289 = 2500-7) [facility] iron saturation measurement (mass fraction)2020-09-21 05:15:00 Test Item Value Reference Range Interpretation Comments Percent Iron Saturation (test code = 2502-3) [facility] plasma transferrin measurement (mass/volume)2020-09-21 05:15:00 Test Item Value Reference Range Interpretation Comments Transferrin (test code = 3034-6) 138 174-364 [facility] cobalamin (vitamin B12) measurement (mass/volume)2020-09-21 05:15:00 Test Item Value Reference Range Interpretation Comments Vitamin B12 Level (test code = 01318-9) 591 213-816 [facility] folate measurement (mass/volume)2020-09-21 05:15:00 Test Item Value Reference Range Interpretation Comments Folate (test code = 2284-8) 17.8 >3.0 [facility]cosCT CHEST L2781-70-11 21:42:00 [facility] : 1930 Sex: M [facility] [address] [place] [address] Patient Name: JUSTICE HARDY MR #: [id number] : 1930 Age/Sex: 89/M Req #: [id number] Adm Physician: ZACHARIAH SAINI MD Ordered by: AJ FLYNN DO Report #: [id number] Location: MED/SURG Room/Bed: [facility] Procedure: [id number] CT/CT CHEST W Exam Date: 09/20/20 Exam Time: 2114 REPORT STATUS: Signed EXAM: CT Chest WITH contrast 09/20/2020 9:15 PM INDICATION: PE [id number] 2114 COMPARISON: None TECHNIQUE: Chest was scanned [...] 09/20/202199 COPY TO: AJ FLYNN DO Phosphorus amzisovrfyc8303-32-67 03:45:00 Test Item Value Reference Range Interpretation Comments Phosphorus Level (test code = YSL5074) 0.8 2.3-4.7 [facility] SINGLE (PORTABLE)2020-09-17 15:26:00[facility] : 1930 Sex: M [address], [place], [place] [address] Patient Name: JUSTICE HARDY MR #: [id number] : 1930 Age/Sex: 89/M Req #: [id number] Adm Physician: ZACHARIAH SAINI MD Ordered by: ZACHARIAH SAINI MD Report #: [id number] Location: ICU Room/Bed: [place] [address] Procedure: [id number] DX/CHEST SINGLE (PORTABLE) Exam Date: 09/17/20 Exam Time: 1450 REPORT STATUS: Signed EXAMINATION: CHEST SINGLE (PORTABLE) INDICATION: SOB, tachypnea [id number] 1450 COMPARISON: Prior x-rays including most recent [...] (PT) in platelet poor plasma by coagulation exaic5246-56-43 10:55:00 Test Item Value Reference Range Interpretation Comments Prothrombin Time (test code = 5902-2) 16.5 11.9-14.5 [facility]IN[facility] in Platelet poor plasma by Coagulation xlqwl4517-50-69 10:55:00 Test Item Value Reference Range Interpretation Comments Prothromb Time International Ratio 1.25 (test code = 6301-6) [facility] MarcosCHES XRAY LINE ZBZSIHEFI2594-71-44 20:57:00[facility] : 1930 Sex: M [place] [address] Patient Name: JUSTICE HARDY MR #: [id number] : 1930 Age/Sex: 89/M Req #: [id number] Adm Physician: ZACHARIAH SAINI MD Ordered by: ZACHARIAH SAINI MD Report #: [id number] Location: ICU Room/Bed: ICU [facility] Procedure: [id number] DX/CHEST XRAY LINE PLACEMENT Exam Date: 09/16/20 [...] AYDEN on 09/16/202101 COPY TO: ZACHARIAH SAINI [facility] SINGLE (PORTABLE)2020-09-15 14:55:00 [facility] : 1930 Sex[facility] M [facility] [address] [place] [address] Patient Name: JUSTICE HARDY MR #: [id number] : 1930 Age/Sex: 89/M Req #: [id number] Adm Physician: ZACHARIAH SAINI MD Ordered by: DHARMESH LINARES MD Report #: [id number] Lo cation: MED/SURG Room/Bed: [facility] Procedure: [id number] DX/CHEST SINGLE (PORTABLE) Exam Date: 09/15/20 Exam [...] Signed By: SCHUYLER GUERRA MD on 09/15/20 4615 Transcribed By: AYDEN on 09/15/20 7039 COPY TO: DHARMESH LINARES [facility] W/PA CXR 2020-09-15 10:17:00 [facility] : 1930 Sex: M [place] [address] Patient Name: JUSTICE HARDY MR #: [id number] : 1930 Age/Sex: 89/M Req #: [id number] [facility] Physician: ZACHARIAH SAINI MD Ordered by: DHARMESH LINARES MD Report #: [id number] Lo cation: MED/SURG Room/Bed: [facility] Procedure: [id number] DX/ABDOMEN ACUTE SERIES W/PA CXR Exam Date: [...] on 09/15/20 1020 COPY TO: DHARMESH LINARES [facility] Rebecca/TENZIN JUK1583-63-23 10:50:00 [facility] : 1930 Sex: M [place] [address] Patient Name: JUSTICE HARDY MR #: [id number] : 1930 Age/Sex: 89/M Req #: [id number] Adm Physician: ZACHARIAH SAINI MD Ordered by: DHARMESH LINARES MD Report #: [id number] Lo cation: MED/SURG Room/Bed: [facility] Procedure: [id number] DX/ABDOMEN ACUTE SERIES W/PA CXR Exam Date: 09/14/20 Exam Time: 1020 REPORT STATUS: Signed X-ray abdomen acute series with 2 views of the abdomen and a single view of the chest INDICATION: sbo [id number] 1020 Comparison: X-ray dated 09/14/2019. Discussion: Lungs [...] Kinase (test code = 2157-6) 385 30-200 [facility] creatine kinase MB measurement (mass/volume)2020-09-13 11:24:00 Test Item Value Reference Range Interpretation Comments Creatine Kinase MB (test code = 2.90 0-5.0 35934-0) [facility]AB[facility] 2 HCXA2202-40-99 09:26:00 [facility] : 1930 Sex: M [facility] [address] [place] [address] Patient Name: JUSTICE HARDY MR #: [id number] : 1930 Age/Sex: 89/M Req #: [id number] Adm Physician: ZACHARIAH SAINI MD Ordered by: SHANNAN CERVANTES MD Report #: [id number] Location: MED/SURG Room/Bed: [facility] Procedure: [id number] DX/ABDOMEN 2 VIEW Exam Date: 09/13/20 Exam [...] code = Lactic 0.7 0.5-2.0 Acid Level) [facility]Fluoroscopic procedure less than one hour stfubaou5865-45-18 19:02:00 Test Item Value Reference Range Interpretation Comments Coronavirus (PCR) (test code = NOT DETECTED NOTDETECTED Coronavirus (PCR)) [facility]CT ABD/PEL WO LHESVQOI-OZMS9700-30-16 17:30:00[facility] : 1930 Sex: M [place] [address] Patient Name: JUSTICE HARDY MR #: [id number] : 1930 Age/Sex: 89/M Req #: [id number] [facility] Physician: Ordered by: SHANNAN CERVANTES MD Report #: [id number] Location: [facility] Room/Bed: Procedure: [id number] HOPD/CT ABD/PEL WO CONTRAST-HOPD Exam Date: 09/12/20 Exam Time: 1657 REPORT STATUS: Signed EXAM: CT Abdomen and Pelvis WITHOUT contrast INDICATION: abd pain, nausea, retching [id number] 1657 COMPARISON: CT abdomen and pelvis on [...] 09/12/201744 COPY TO: SHANNAN CERVANTES MDCT ABDOMEN/PELVIS [id number] 15:20:00 [place] [address] Patient Name: JUSTICE HARDY MR #: [id number] : 1930 Age/Sex: 89/M Req #: [id number] Adm Physician: Mario boyd by: JEANNINE SAINI MD Report #: [id number] Location: CT Room/Bed: Procedure: [id number] CT/CT ABDOMEN/PELVISWO Exam Date: 03/02/20 Exam Time: [...]
[2021-02-27 23:15] LABS: Protime INR 1.28
[2021-02-27 23:21] LABS: Albumin 2.7 g/dL (3.4-5.0); Bilirubin Direct 0.1 mg/dL (0-0.2); Bilirubin Total 0.4 mg/dL (0.2-1.0); Protein, Total 5.5 g/dL (6.4-8.2); Troponin (Emerg Dept Use Only) 0.02 ng/mL (0.0-0.045)
[2021-02-27] MEDS ORDERED: METHYLPREDNISOLONE 125 MG INJ ONE (23:36)
[2021-02-27] MEDS ORDERED: NA CHLORIDE 0.9% 500 ML ONE (23:37)
[2021-02-27] MEDS ORDERED: DIPHENHYDRAMINE 50 MG/ML VIAL ONE (23:37)
[2021-02-27] MEDS ORDERED: METOCLOPRAMIDE 10 MG/2mL INJ ONE (23:37)
[2021-02-27] MEDS ORDERED: KETOROLAC 30 MG/ML INJ ONE (23:37)
[2021-02-27 23:38] LABS: Absolute Lymphocytes (CBC) 0.9 K/uL (0.7-4.9); Basophils % 0.1 % (0-1.3); Hematocrit 34.4 % (39.6-49.0); Lymphocytes % 10.8 % (15.3-44.8); MPV 8.7 fL (7.6-11.3); RBC Red Blood Cell Count 3.72 M/uL (4.33-5.43)
--- NOTE | 2021-02-28 00:32 | EDPHYS ---
Physician Documentation [facility] Name: Benito Castaneda Age: 89 yrs Sex: Male : 1930 Arrival Date: 02/27/2021 Time: 22:24 Bed 18 Private MD: ED Physician Don Bhakta HPI: 02/27 22:37 This 89 yrs old Male presents to ER via Unassigned with complaints of headache.ma2 22:37 Onset: The symptoms/episode began/occurred gradually, 2 day(s) ago. Severity of ma2 symptoms: At its worst the pain was mild, in the emergency department the pain is unchanged. Headache History: The patient has had previous headaches and this one is similar to previous episodes. The patient has experienced similar episodes in the past. has covid and here with headache has htn and sbp was 180. 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 - Social history:: Patient/guardian denies using alcohol, street drugs, The patient lives with family, Smoking status: unknown. - Family history:: not pertinent. ROS: 22:37 Constitutional: Negative for fever, chills, and weight loss, Eyes: Negative for injury, ma2 pain, redness, and discharge, ENT: Negative for injury, pain, and discharge, Neck: Negative for injury, pain, and swelling, Cardiovascular: Negative for chest pain, palpitations, and edema, Respiratory: Negative for shortness of breath, cough, wheezing, and pleuritic chest pain, Abdomen/GI: Negative for abdominal pain, nausea, diarrhea, and constipation, Back: Negative for injury and pain. 22:37 All other systems are negative. Exam: 22:37 Constitutional: This is a well developed, well nourished patient who is awake, alert, ma2 and in no acute distress. Head/Face: Normocephalic, atraumatic. Eyes: Pupils equal round and reactive to light, extra-ocular motions intact. Lids and lashes normal. Conjunctiva and sclera are non-icteric and not injected. Cornea within normal limits. Periorbital areas with no swelling, redness, or edema. ENT: Nares patent. No nasal discharge, no septal abnormalities noted. Tympanic membranes are normal and external auditory canals are clear. Oropharynx with no redness, swelling, or masses, exudates, or evidence of obstruction, uvula midline. Mucous membranes moist. Neck: Trachea midline, no thyromegaly or masses palpated, and no cervical lymphadenopathy. Supple, full range of motion without nuchal rigidity, or vertebral point tenderness. No Meningismus. Chest/axilla: Normal chest wall appearance and motion. Nontender with no deformity. No lesions are appreciated. Cardiovascular: Regular rate and rhythm with a normal S1 and S2. No gallops, murmurs, or rubs. Normal PMI, no JVD. No pulse deficits. Respiratory: Lungs have equal breath sounds bilaterally, clear to auscultation and percussion. No rales, rhonchi or wheezes noted. No increased work of breathing, no retractions or nasal flaring. Abdomen/GI: Soft, non-tender, with normal bowel sounds. No distension or tympany. No guarding or rebound. No evidence of tenderness throughout. Back: No spinal tenderness. No costovertebral tenderness. Full range of motion. Skin: Warm, dry with normal turgor. Normal color with no rashes, no lesions, and no evidence of cellulitis. MS/ Extremity: Pulses equal, no cyanosis. Neurovascular intact. Full, normal range of motion. Neuro: Awake and alert, GCS 15, oriented to person, place, time, and situation. Cranial nerves II-XII grossly intact. Motor strength 5/5 in all extremities. Sensory grossly intact. Cerebellar exam normal. Normal gait. Vital Signs: 23:46 BP 105 / 50; Pulse 55; Resp 18; Temp 98; Pulse Ox 95% ; lh3 [place] Coma Score: 02/28 00:31 Eye Response: spontaneous(4). Verbal Response: oriented(5). Motor Response: obeys ma2 commands(6). Total: 15. MDM: 02/27 22:26 Patient medically screened. [facility] 22:37 Differential diagnosis: migraine, sinusitis, tension headache, uremia. [facility] 02/28 00:31 Data reviewed: vital signs, nurses notes. Counseling: I had a detailed discussion with [facility] the patient and/or guardian regarding: the historical points, exam findings, and any diagnostic results supporting the discharge/admit diagnosis, the presence of at least one elevated blood pressure reading (>120/80) during this emergency department visit, the need for outpatient follow up. Response to treatment: the patient's symptoms have markedly improved after treatment. 02/27 22:30 Order name: Basic Metabolic Panel [facility] 02/27 22:30 Order name: CBC with Diff [facility] 02/27 22:30 Order name: LFT's [facility] 02/27 22:30 Order name: Magnesium; Complete Time: 23:22 [facility] 02/27 22:30 Order name: NT PRO-BNP; Complete Time: 23:22 [facility] 02/27 22:30 Order name: PT-INR; Complete Time: 23:22 [facility] 02/27 22:30 Order name: Troponin (emerg Dept Use Only); Complete Time: 23:22 [facility] 02/27 22:30 Order name: XRAY Chest (1 view) [facility] 02/27 22:31 Order name: Basic Metabolic Panel; Complete Time: 23:22 [facility] 02/27 22:31 Order name: CBC with Automated Diff [facility] 02/27 22:31 Order name: Liver (Hepatic) Function; Complete Time: 23:22 [facility] 02/27 22:38 Order name: CT Head Brain wo Cont [facility] 02/27 23:43 Order name: Manual Differential [facility] 02/27 22:30 Order name: EKG; Complete Time: 22:31 [facility] 02/27 22:30 Order name: Cardiac monitoring; Complete Time: 23:42 [facility] 02/27 22:30 Order name: EKG - Nurse/Tech; Complete Time: 00:43 [facility] 02/27 22:30 Order name: IV Saline Lock; Complete Time: 23:42 [facility] 02/27 22:30 Order name: Labs collected and sent; Complete Time: 23:42 [facility] 02/27 22:30 Order name: O2 Per Protocol; Complete Time: 23:43 ma2 02/27 22:30 Order name: O2 Sat Monitoring; Complete Time: 23:43 ma2 Administered Medications: 02/27 23:26 Drug: SOLU-Medrol (methylPrednisoLONE) 125 mg Route: IVP; Site: right forearm; [facility] 02/28 00:16 Follow up: Response: No adverse reaction [facility] 02/27 23:27 Drug: Ketorolac 30 mg Route: IVP; Site: right forearm; [facility] 02/28 00:17 Follow up: Response: No adverse reaction [facility] 02/27 23:27 Drug: NS 0.9% 500 ml Route: IV; Rate: bolus; Site: right forearm; [facility] 02/28 00:16 Follow up: Response: No adverse reaction; IV Status: Completed infusion; IV Intake: 3 500ml 02/27 23:27 Drug: Reglan (metoCLOPramide) 20 mg Route: IVP; Site: right forearm; [facility] 02/28 00:16 Follow up: Response: No adverse reaction [facility] 02/27 23:27 Drug: Benadryl (diphenhydrAMINE) 25 mg Route: IVP; Site: right forearm; [facility] 02/28 00:16 Follow up: Response: No adverse reaction [facility] Disposition Summary: 02/28/21 00:32 Discharge Ordered Location: Home ma2 Condition: Stable ma2 Diagnosis - Essential (primary) hypertension ma2 Followup: ma2 - With: Private Physician - When: Tomorrow - Reason: Continuance of care Discharge Instructions: - Discharge Summary Sheet ma2 - Hypertension, Adult ma2 Forms: - Medication Reconciliation Form ma2 - Thank You Letter ma2 - Antibiotic Education ma2 - Prescription Opioid Use ma2 Prescriptions: - Diclofenac Sodium 75 mg Oral Tablet Sustained Release - take 1 tablet by ORAL route 2 times per day; 30 tablet; Refills: 0, Product ma2 Selection Permitted - Zithromax Z-[place] 250 mg Oral Tablet - take 1 tablet by ORAL route as directed for 5 days Day 1 - take two (2) tablets ma2 one time. Day 2, 3, 4 , 5 take one (1) tablet once daily.; 6 tablet; Refills: 0, Product Selection Permitted - Medrol ([place]) 4 mg Oral Tablets, Dose Pack - take 1 tablet by ORAL route as directed - follow package instructions; 1 ma2 packet; Refills: 0, Product Selection Permitted Signatures: Dispatcher [employer] Don Zamudio MD MD ma2 Dionne Roy RN RN 3
--- NOTE | 2021-02-28 00:32 | ER ---
Nurse's Notes [facility] Name: Benito Castaneda Age: 89 yrs Sex: Male : 1930 Arrival Date: 02/27/2021 Time: 22:24 Bed 18 Private MD: Diagnosis: Essential (primary) hypertension Presentation: 02/27 23:52 Chief complaint: EMS states: Per EMS, "patient is being brought in for high blood lh3 pressure (200/110), home health nurse gave patient night time meds and VS were normal in route". Coronavirus screen: Client reports previous positive COVID test result. Ebola Screen: No symptoms or risks identified at this time. Initial Sepsis Screen: Does the patient meet any 2 criteria? No. Patient's initial sepsis screen is negative. Initial Sepsis Screen: Does the patient have a suspected source of infection? No. Patient's initial sepsis screen is negative. Risk Assessment: Do you want to hurt yourself or someone else? Patient reports no desire to harm self or others. Onset of symptoms was February 27, 2021. 23:52 Acuity: ANT 4 lh3 23:52 Method Of Arrival: EMS 3 Triage Assessment: 23:52 General: Appears in no apparent distress. Behavior is calm, cooperative, appropriate lh3 for age. 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 - Social history:: Patient/guardian denies using alcohol, street drugs, The patient lives with family, Smoking status: unknown. - Family history:: not pertinent. Screenin:46 Abuse screen: Denies threats or abuse. Nutritional screening: No deficits noted. lh3 Tuberculosis screening: No symptoms or risk factors identified. Fall Risk None identified. IV access (20 points). Assessment: 23:46 Pain: Denies pain. 3 Vital Signs: 23:46 BP 105 / 50; Pulse 55; Resp 18; Temp 98; Pulse Ox 95% ; 3 [place] Coma Score: 02/28 00:31 Eye Response: spontaneous(4). Verbal Response: oriented(5). Motor Response: obeys ma2 commands(6). Total: 15. ED Course: 02/27 22:24 Patient arrived in ED. mw2 22:26 Don Bhakta MD is Attending Physician. ma2 22:47 Dionne Roy RN is Primary Nurse. lh3 22:55 XRAY Chest (1 view) In Process Unspecified. EDMS 23:03 CT Head Brain wo Cont In Process Unspecified. EDMS 23:42 Basic Metabolic Panel Sent. lh3 23:42 CBC with Diff Sent. lh3 23:42 LFT's Sent. lh3 23:46 No provider procedures requiring assistance completed. Inserted saline lock: 18 gauge 3 in right forearm, using aseptic technique. Accessed Blood collected. Clean \\T\\ dry. Dressing intact. 23:46 Patient has correct armband on for positive identification. Bed in low position. Call [facility] light in reach. Side rails up X 1. 23:52 Arm band placed on. [facility] 02/28 00:03 Triage completed. 3 07:52 intact. ch5 Administered Medications: 02/27 23:26 Drug: SOLU-Medrol (methylPrednisoLONE) 125 mg Route: IVP; Site: right forearm; [facility] 02/28 00:16 Follow up: Response: No adverse reaction [facility] 02/27 23:27 Drug: Ketorolac 30 mg Route: IVP; Site: right forearm; [facility] 02/28 00:17 Follow up: Response: No adverse reaction [facility] 02/27 23:27 Drug: NS 0.9% 500 ml Route: IV; Rate: bolus; Site: right forearm; [facility] 02/28 00:16 Follow up: Response: No adverse reaction; IV Status: Completed infusion; IV Intake: 3 500ml 02/27 23:27 Drug: Reglan (metoCLOPramide) 20 mg Route: IVP; Site: right forearm; [facility] 02/28 00:16 Follow up: Response: No adverse reaction [facility] 02/27 23:27 Drug: Benadryl (diphenhydrAMINE) 25 mg Route: IVP; Site: right forearm; lh3 02/28 00:16 Follow up: Response: No adverse reaction lh3 Intake: 00:16 IV: 500ml; Total: 500ml. lh3 Outcome: 00:32 Discharge ordered by . carlos 07:52 Discharged to home with family. 5 07:52 Condition: good 07:52 Discharge instructions given to Prescriptions given X 3. 07:53 Patient left the ED. 5 Signatures: Dispatcher [employer] EDMS Don Bhakta MD MD ma2 Marya Hollis2 Dionne Roy RN RN 3 Finesse Cage RN RN 5
[2021-02-28 01:10] LABS: Blood Morphology Comment NOT SEEN (NOT SEEN); Platelet Estimate ADEQ
--- NOTE | 2021-02-28 07:03 | RAD REPORT ---
EXAM DESCRIPTION: RAD - Chest Single View - 02/27/2021 10:56 pm CLINICAL HISTORY: CONGESTION COMPARISON: Chest Single View dated 01/08/2021; Chest Single View dated 04/13/2018; CHEST SINGLE VIEW dated 11/29/2007 FINDINGS: No evidence of edema or pneumonia. The heart size is within normal limits.No acute osseous abnormality. No significant pleural effusions or pneumothorax. Sternotomy. IMPRESSION: No acute cardiopulmonary disease.
[2021-02-28 07:58] VITALS: BP 105/50; TEMP 98; O2SAT 95
--- NOTE | 2021-02-28 11:36 | RAD REPORT ---
EXAM DESCRIPTION: CT - Head Brain Wo Cont - 02/28/2021 6:43 am CLINICAL HISTORY: PAIN COMPARISON: 01/09/2021 TECHNIQUE: Axial CT of the head obtained from the skull apex to the skull base without contrast. Thi s exam was performed according to our departmental dose-optimization program, which includes automate d exposure control, adjustment of the mA and/or kV according to patient size and/or use of iterative reconstruction technique. Mild motion artifact. FINDINGS: No acute intracranial hemorrhage identified. No mass, mass effect, shift of the midline, a bnormal extra-axial fluid collection or CT evidence of acute ischemic change identified. The ventricu lar system and sulcal spaces are mildly enlarged compatible with mild cerebral atrophy. Scattered a reas of hypodensity throughout the supratentorial white matter are nonspecific and may be related to chronic small vessel ischemic change. Coarse basal ganglia calcifications. Focal area of encephalomal acia in the left cerebellum likely representing remote infarction. The visualized paranasal sinuses and mastoid air cells are well aerated. No skull fracture identifi ed. Visualized orbits and globes are unremarkable. Atherosclerotic calcification of the intracranial internal carotid arteries. IMPRESSION: 1. No acute intracranial abnormality by CT criteria. Electronically signed by: Finesse Street 02/27/2021 11:33 PM CDT Due to temporary technical issues with the PACS/Fluency reporting system, reports are being signed by the in house radiologist without review as a courtesy to ensure prompt reporting. The interpreting r adiologist is fully responsible for the content of the report.
--- NOTE | 2021-02-28 12:50 | EKG ---
Test Date: 2021-02-28 Test Time: 00:27:22 Seismographer: DEBBIE MEASUREMENT RESULTS: Intervals: Rate: 70 TN: 146 QRSD: 82 QT: 420 QTc: 453 [place]: P: 56 TN: 146 QRS: -19 T: 55 INTERPRETIVE STATEMENTS: Normal sinus rhythm Septal infarct, age undetermined Abnormal ECG Compared to ECG 01/08/2021 23:56:38 Myocardial infarct finding now present Left-axis deviation no longer present Electronically Signed On 02-28-21 12:50:22 CDT by Reji Ramon
== END 2021-02-28 07:53 | disposition home or self-care (01) ==
LOC: ER 22:16
DX: I10 Essential (primary) hypertension (principal); Z86.16 Personal history of COVID-19; Z95.4 Presence of other heart-valve replacement; Z95.818 Presence of other cardiac implants and grafts; Z95.1 Presence of aortocoronary bypass graft; Z88.8 Allergy status to other drugs, medicaments and biological substances; Z85.46 Personal history of malignant neoplasm of prostate; Z91.048 Other nonmedicinal substance allergy status
CPT/HCPCS: 96361; 93005; 85025; 80048; 36415; 83735; 85610; 80076; 84484; 83880; 70450; 71045; 96375; 96374; 99284; J2765; J1200; J7040; J2930

== ENCOUNTER 2021-04-11 12:31 | Emergency (ER) | payer OTHER, BC ==
--- NOTE | 2021-04-11 13:24 | RAD REPORT ---
EXAM DESCRIPTION: RAD - Chest Single View - 04/11/2021 1:14 pm CLINICAL HISTORY: Cough;Congestion;SOB Chest pain. COMPARISON: Chest Single View dated 02/27/2021; Chest Single View dated 01/08/2021; Chest Single View dated 04/13/2018; CHEST SINGLE VIEW dated 11/29/2007 FINDINGS: Portable technique limits examination quality. Moderately severe bilateral pulmonary opacities are seen, greatest the medial right lung base likely representing pneumonia. The heart is mildly enlarged in size. Sternotomy wires are present.
[2021-04-11] MEDS ORDERED: LEVALBUTEROL 1.25 MG/3 ML NEB ONE (13:25)
[2021-04-11] MEDS ORDERED: METHYLPREDNISOLONE 125 MG INJ ONE (13:25)
[2021-04-11] MEDS ORDERED: CEFTRIAXONE 1000 MG/VIAL ONE (13:25)
[2021-04-11] MEDS ORDERED: NA CHLORIDE 0.9% 100 ML ONE (13:25)
[2021-04-11] MEDS ORDERED: NA CHLORIDE 0.9% 500 ML ONE (13:26)
[2021-04-11] MEDS ORDERED: NA CHLORIDE 0.9% 1,000 ML ONE (13:26)
--- NOTE | 2021-04-11 14:04 | EDPHYS ---
Physician Documentation [facility] Name: Benito Castaneda Age: 89 yrs Sex: Male : 1930 Arrival Date: 04/11/2021 Time: 12:37 Bed 2 Private MD: ED Physician Domo Stewart HPI: 04/11 18:38 This 89 yrs old Male presents to ER via EMS with complaints of Shortness Of kdr Breath, Chest Pain. 14:06 EMS was called to bring the patient to the ER. The patient had been complaining of kdr chest pain and shortness of breath for the last 3 days he was noted to be wheezing by EMS and coughing patient also complained of belching. EMS applied an albuterol and Atrovent treatment in route when they noted that his oxygen saturation was 86% on room air. Due to the chest pain, they also gave him 324 mg of aspirin and 1 spray of nitroglycerin. Blood pressure was reported as 138/80. . 18:38 The patient has shortness of breath at rest, with light activity. kdr 18:39 Onset: The symptoms/episode began/occurred gradually, 3 day(s) ago. The patient's kdr shortness of breath is aggravated by coughing, exertion, light activity, is alleviated by inhaler. Associated signs and symptoms: Pertinent positives: chest pain, non-productive cough. Severity of symptoms: At their worst the symptoms were moderate severe in the emergency department the symptoms are unchanged. The patient has not experienced similar symptoms in the past. The patient has been recently seen by a physician: the patient's primary care provider. He is alsoPatient states that he has been having chest pain shortness of breath for 3 days. He has also reported wheezing and coughing and belching. EMS provided an albuterol and Atrovent treatment in route for his wheezing. He was noted to be 86% on room air by EMS. EMS had provided the patient also with 324 mg of aspirin and 1 spray of nitro for his blood pressure. Blood pressure now is 138/80 on admission patient otherwise appears nontoxic and is stable. 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 - Social history:: Smoking status: Patient/guardian denies using tobacco, the patient reports quitting approximately 45 years ago. ROS: 18:39 Constitutional: Negative for fever, chills, and weight loss, Eyes: Negative for injury, kdr pain, redness, and discharge, Neck: Negative for injury, pain, and swelling, Abdomen/GI: Negative for abdominal pain, nausea, vomiting, diarrhea, and constipation, Back: Negative for injury and pain, : Negative for injury, bleeding, discharge, and swelling, MS/Extremity: Negative for injury and deformity, Skin: Negative for injury, rash, and discoloration, Neuro: Negative for headache, weakness, numbness, tingling, and seizure activity. Psych: Negative for depression, anxiety, suicide ideation, homicidal ideation, and hallucinations, Allergy/Immunology: Negative for hives, rash, and allergies, Endocrine: Negative for neck swelling, polydipsia, polyuria, polyphagia, and marked weight changes, Hematologic/Lymphatic: Negative for swollen nodes, abnormal bleeding, and unusual bruising. 18:39 Cardiovascular: Positive for chest pain, Negative for edema, orthopnea, palpitations, paroxysmal nocturnal dyspnea. 18:39 Respiratory: Positive for cough, "sounds productive", dyspnea on exertion, shortness of breath, at rest. wheezing, Negative for hemoptysis, orthopnea. Exam: 18:39 Constitutional: This is a well developed, well nourished patient who is awake, alert, kdr and in no acute distress. Head/Face: Normocephalic, atraumatic. Eyes: Pupils equal round and reactive to light, extra-ocular motions intact. Lids and lashes normal. Conjunctiva and sclera are non-icteric and not injected. Cornea within normal limits. Periorbital areas with no swelling, redness, or edema. Neck: Trachea midline, no thyromegaly or masses palpated, and no cervical lymphadenopathy. Supple, full range of motion without nuchal rigidity, or vertebral point tenderness. No Meningismus. Chest/axilla: Normal chest wall appearance and motion. Nontender with no deformity. No lesions are appreciated. Abdomen/GI: Soft, non-tender, with normal bowel sounds. No distension or tympany. No guarding or rebound. No evidence of tenderness throughout. Back: No spinal tenderness. No costovertebral tenderness. Full range of motion. Skin: Warm, dry with normal turgor. Normal color with no rashes, no lesions, and no evidence of cellulitis. MS/ Extremity: Pulses equal, no cyanosis. Neurovascular intact. Full, normal range of motion. Neuro: Awake and alert, GCS 15, oriented to person, place, time, and situation. Cranial nerves II-XII grossly intact. Motor strength 5/5 in all extremities. Sensory grossly intact. Cerebellar exam normal. Normal gait. Psych: Awake, alert, with orientation to person, place and time. Behavior, mood, and affect are within normal limits. 18:39 Cardiovascular: Rate: tachycardic, Rhythm: regular, Pulses: no pulse deficits are appreciated, Heart sounds: normal, Edema: 1+ edema to level of left midcalf, left ankle, right midcalf and right ankle. 18:39 Respiratory: the patient does not display signs of respiratory distress, Respirations: shallow respirations. Vital Signs: 12:39 Weight 54.43 kg; Height 5 ft. 4 in. (162.56 cm); Pain 8/10; ll1 12:43 BP 123 / 82; Pulse 100; Resp 30; Temp 97.5; Pulse Ox 89% on R/A; ll1 14:03 BP 144 / 84; Pulse 103; Resp 27; Pulse Ox 99% on Nebulizer Mask; ap3 15:32 BP 119 / 62 RA; Pulse 122; Resp 26; Pulse Ox 100% on BiPAP; ap3 16:39 BP 110 / 72; Pulse 92; Resp 15; Pulse Ox 100% on BiPAP; ap3 18:01 BP 153 / 81; Pulse 63; Resp 18; Pulse Ox 100% on R/A; ap3 12:39 Body Mass Index 20.60 (54.43 kg, 162.56 cm) ll1 MDM: 14:04 Patient medically screened. kdr 18:39 Data reviewed: vital signs, nurses notes, lab test result(s), radiologic studies. kdr Counseling: I had a detailed discussion with the patient and/or guardian regarding: the historical points, exam findings, and any diagnostic results supporting the discharge/admit diagnosis, lab results, radiology results, the need for outpatient follow up. 18:42 ED course: Patient improved with the interventions given in the ED. During the course kdr of our evaluation and admission, we were contacted by the family indicating that the patient was wanting to be transferred to [facility]. Subsequently Dr. Johnson's office made arrangements for transfer to the of the patient to the ED. There have been no discussion between myself and the physicians at [facility].. 04/11 12:52 Order name: Amylase, Serum; Complete Time: 15:04 kdr 04/11 12:52 Order name: Basic Metabolic Panel; Complete Time: 15: kdr 04/11 12:52 Order name: Blood Culture Adult (2) kdr 04/11 12:52 Order name: CBC with Diff kdr 04/11 12:52 Order name: CPK; Complete Time: 15:04 kdr 04/11 12:52 Order name: Ckmb; Complete Time: 15:04 kdr 04/11 12:52 Order name: LFT's; Complete Time: 15:04 kdr 04/11 12:52 Order name: Lactate; Complete Time: 15:04 kdr 04/11 12:52 Order name: Lipase; Complete Time: 15:04 kdr 04/11 12:52 Order name: Procalcitonin; Complete Time: 16:06 kdr 04/11 12:52 Order name: Protime (+inr); Complete Time: 15:04 kdr 04/11 12:52 Order name: Ptt, Activated; Complete Time: 15:04 kdr 04/11 12:52 Order name: Troponin (emerg Dept Use Only); Complete Time: 15:04 kdr 04/11 12:52 Order name: Chest Single View XRAY; Complete Time: 14:01 kdr 04/11 13:49 Order name: SARS-COV-2 RT PCR; Complete Time: 15:04 EDMS 04/11 14:52 Order name: CBC Smear Scan; Complete Time: 15:04 EDMS 04/11 15:12 Order name: ABG ap3 04/11 15:12 Order name: ABG Arterial Blood Gas; Complete Time: 16:06 EDMS 04/11 19:57 Order name: Protime (+inr) em 04/11 19:57 Order name: Ptt, Activated em 04/11 12:52 Order name: Accucheck; Complete Time: 15:32 kdr 04/11 12:52 Order name: Cardiac monitoring; Complete Time: 12:56 kdr 04/11 12:52 Order name: EKG - Nurse/Tech; Complete Time: 12:56 kdr 04/11 12:52 Order name: IV Saline Lock - Large Bore; Complete Time: 14:11 kdr 04/11 12:52 Order name: Labs collected and sent; Complete Time: 14:11 kdr 04/11 12:52 Order name: O2 Per Protocol; Complete Time: 12:56 kdr 04/11 12:52 Order name: O2 Sat Monitoring; Complete Time: 12:56 kdr 04/11 15:12 Order name: EKG - Nurse/Tech; Complete Time: 15:28 ap3 Administered Medications: 13:59 Drug: Xopenex (levalbuterol) (3) 1.25 mg Route: Inhalation; ap3 14:11 Drug: NS 0.9% (30 ml/kg) 30 ml/kg Route: IV; Rate: bolus; Site: left antecubital; ap3 15:31 Follow up: IV Status: Completed infusion; IV Intake: 1600ml ap3 14:11 Drug: Rocephin - (cefTRIAXone) 1 grams Route: IVPB; Infused Over: 30 mins; Site: left ap3 antecubital; 15:31 Follow up: IV Status: Completed infusion ap3 14:12 Drug: SOLU-Medrol (methylPrednisoLONE) 125 mg Route: IVP; Site: left antecubital; ap3 15:32 Follow up: Response: No adverse reaction ap3 15:28 Drug: Heparin (FL-Bolus No thrombolytic) - HEParin 60 units/kg {Co-Signature: ll1 ap3 (Deric Gordillo RN).} Route: IVP; Site: left antecubital; 15:28 Drug: Nitroglycerin 0.4 mg Route: Sublingual; ap3 16:39 Follow up: Response: No adverse reaction; Marked relief of symptoms ap3 18:58 CANCELLED (IV orderr): Ondansetron 4 mg PO once ap3 18:59 Drug: morphine 2 mg {Note: Rass 0.} Route: IVP; Site: left antecubital; ap3 18:59 Drug: Zofran (Ondansetron) 4 mg Route: IVP; Site: left antecubital; ap3 Disposition Summary: 04/11/21 18:37 Transfer Ordered Transfer Location: [facility] kdr Reason: Higher level of care kdr Condition: Serious(04/11/21 18:37) kdr Problem: an acute exacerbation(04/11/21 18:37) kdr Symptoms: have improved(04/11/21 18:37) kdr Accepting Physician: Atar(04/11/21 22:24) em Diagnosis - Pneumonia, unspecified organism kdr - Shortness of breath(04/11/21 18:37) kdr Forms: - Medication Reconciliation Form kdr - SBAR form kdr Signatures: Dispatcher [employer] EDMS Domo Stewart MD MD kdr Angel Ruff, RN RN em Anna Sanchez RN RN ap3 Deric Gordillo RN RN ll1 Deric Gordillo RN ll1 Corrections: (The following items were deleted from the chart) 13:50 13:01 CORONAVIRUS+LAB.BRZ ordered. EDMS EDMS 18:36 14:04 Inpatient Admission kdr kdr 18:36 14:04 Shaun Hopkins kdr kdr 18:36 14:04 Telemetry/MedSurg (Inpatient) kdr kdr 18:36 14:04 Fair kdr kdr 18:36 14:04 new kdr kdr 18:36 14:04 have improved kdr kdr 18:36 14:04 Standard kdr kdr 18:36 14:04 kdr kdr 18:36 14:04 Unspecified bacterial pneumonia kdr kdr 18:36 14:04 Shortness of breath kdr kdr 18:58 18:58 Ondansetron 4 mg PO once ordered. ap3 ap3 22:24 18:37 Atar kdr em
--- NOTE | 2021-04-11 14:04 | ER ---
Nurse's Notes [facility] Name: Benito Castaneda Age: 89 yrs Sex: Male : 1930 Arrival Date: 04/11/2021 Time: 12:37 Bed 2 Private MD: Diagnosis: Pneumonia, unspecified organism;Shortness of breath Presentation: 04/11 12:39 Chief complaint: Patient states: CP and SOB for 3 days. + wheezing, coughing, and ll1 belching. EMS states: A\T\A TX en route for wheezing. 86% RA. Given 324 mg aspirin, 1 spray of nitro. BP 138/80. Coronavirus screen: Vaccine status: Patient reports receiving the 2nd dose of the covid vaccine. Client denies travel out of the [place] in the last 14 days. congestion, cough unrelated to allergies, shortness of breath, Client presents with at least one sign or symptom that may indicate coronavirus-19. Standard/surgical mask placed on the client. Ebola Screen: Patient denies travel to an Ebola-affected area in the 21 days before illness onset. Initial Sepsis Screen: Does the patient meet any 2 criteria? No. Patient's initial sepsis screen is negative. Does the patient have a suspected source of infection? Yes: Productive cough/pneumonia. Risk Assessment: Do you want to hurt yourself or someone else? Patient reports no desire to harm self or others. Onset of symptoms was April 09, 2021. 12:39 Method Of Arrival: EMS: [facility] ll1 12:39 Acuity: ANT 3 ll1 22:13 Note NOTICED PUMP PROGRAMMED TO RUN HEPARIN AT 3247.8 UNITS/HR. PUMP STOPPED cw2 IMMEDIATELY. CHARGE NURSE/ER ATTENDING AWARE. PTT DRAWN VIA BUTTERFLY. PTT UNABLE TO RESULT. LAB OTONIEL PTT. RESULTED >200. CHARGE NURSE OMID CORDOBA AT [facility] MADE AWARE OF CURRENT RESULT. Triage Assessment: 14:02 Respiratory: Onset: The symptoms/episode began/occurred over the last week, the patient ap3 has severe shortness of breath. 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 - Social history:: Smoking status: Patient/guardian denies using tobacco, the patient reports quitting approximately 45 years ago. Screenin:43 Abuse screen: Denies threats or abuse. Nutritional screening: No deficits noted. ll1 Tuberculosis screening: No symptoms or risk factors identified. 14:01 Fall Risk No fall in past 12 months (0 pts). No secondary diagnosis (0 pts). IV access ap3 (20 points). Ambulatory Aid- None/Bed Rest/Nurse Assist (0 pts). Gait- Weak (10 pts.). Mental Status- Oriented to own ability (0 pts). Total Brady Fall Scale indicates Low Risk Score (25-44 pts). Fall prevention measures have been instituted. Side Rails Up X 2 Placed close to Nursing Station Frequent Obs/Assesments occuring Family Present and informed to notify staff if they need to leave bedside As available Patient and Family Educated on Fall Prevention Program and strategies. Assessment: 13:45 Reassessment: Point of Contact: Benny Castaneda (Son \T\ power of transactional attorney)- [phone]. ss 14:00 General: Appears uncomfortable, Behavior is calm, cooperative, Reports chills for >3 ap3 days, fever for > 3 days, feeling ill for > 3 days, fatigue for >3 days. Pain: Complains of pain in generalized. Cardiovascular: Capillary refill < 3 seconds Patient's skin is warm and dry. Rhythm is sinus tachycardia. Cardiovascular: Reports chest pain, with cough. Respiratory: Reports shortness of breath cough that is labored breathing Airway is patent Respiratory effort is even, Respiratory pattern is tachypnea Breath sounds with wheezes bilaterally. GI: No signs and/or symptoms were reported involving the gastrointestinal system. : No signs and/or symptoms were reported regarding the genitourinary system. 14:12 Reassessment: patient provided with urinal and education on proper urine collection for ap3 UA. Patient verbalized understanding. 15:31 Reassessment: RT at bedside. ABG's being collected and patient being placed on bipap. ap3 16:40 Reassessment: Patient and/or family updated on plan of care and expected duration. Pain ap3 level reassessed. Patient is alert, oriented x 3, equal unlabored respirations, skin warm/dry/pink. Patient states feeling better. Patient states symptoms have improved. 18:03 Reassessment: [facility] ap[facility] 18:21 Reassessment: family has left the bedside. ap3 18:22 Reassessment: patient removed from bipap and placed on 4 liters NC. ap3 20:00 Reassessment: heparin drip stopped at this time. em Vital Signs: 12:39 Weight 54.43 kg; Height 5 ft. 4 in. (162.56 cm); Pain 8/10; ll1 12:43 BP 123 / 82; Pulse 100; Resp 30; Temp 97.5; Pulse Ox 89% on R/A; ll1 14:03 BP 144 / 84; Pulse 103; Resp 27; Pulse Ox 99% on Nebulizer Mask; ap3 15:32 BP 119 / 62 RA; Pulse 122; Resp 26; Pulse Ox 100% on BiPAP; ap3 16:39 BP 110 / 72; Pulse 92; Resp 15; Pulse Ox 100% on BiPAP; ap3 18:01 BP 153 / 81; Pulse 63; Resp 18; Pulse Ox 100% on R/A; ap3 12:39 Body Mass Index 20.60 (54.43 kg, 162.56 cm) ll1 ED Course: 12:37 Patient arrived in ED. mh5 12:38 Domo Stewart MD is Attending Physician. kdr 12:42 Triage completed. ll1 12:42 Arm band placed on Patient placed in an exam room, on a stretcher. ll1 12:57 Anna Sanchez, BERYL is Primary Nurse. ap3 13:14 Chest Single View XRAY In Process Unspecified. EDMS 13:17 Amylase, Serum Sent. mh5 13:17 Basic Metabolic Panel Sent. mh5 13:17 Blood Culture Adult (2) Sent. mh5 13:40 EKG done, by ED staff, reviewed by Domo Stewart MD COVID swab sent to lab. Missed mh5 attempt(s): 20 gauge in right in left antecubital area. 14:02 Patient has correct armband on for positive identification. Bed in low position. Call ap3 light in reach. Side rails up X2. residential monitor on. Pulse ox on. NIBP on. Door closed. Noise minimized. 14:03 Shaun Hopkins DO is Hospitalizing Provider. kdr 14:12 Inserted saline lock: 20 gauge in left antecubital area, using aseptic technique. Blood ap3 collected. 16:28 initiated transfer to [facility]. bd 18:19 pt accepted in transfer to [facility] by dr bo, admin approval given by sreedhar white. 20:10 Protime (+inr) Sent. cw2 20:10 Ptt, Activated Sent. cw2 Administered Medications: 13:59 Drug: Xopenex (levalbuterol) (3) 1.25 mg Route: Inhalation; ap3 14:11 Drug: NS 0.9% (30 ml/kg) 30 ml/kg Route: IV; Rate: bolus; Site: left antecubital; ap3 15:31 Follow up: IV Status: Completed infusion; IV Intake: 1600ml ap3 14:11 Drug: Rocephin - (cefTRIAXone) 1 grams Route: IVPB; Infused Over: 30 mins; Site: left ap3 antecubital; 15:31 Follow up: IV Status: Completed infusion ap3 14:12 Drug: SOLU-Medrol (methylPrednisoLONE) 125 mg Route: IVP; Site: left antecubital; ap3 15:32 Follow up: Response: No adverse reaction ap3 15:28 Drug: Heparin ([place]-Bolus No thrombolytic) - HEParin 60 units/kg {Co-Signature: ll1 ap3 (Deric Gordillo RN).} Route: IVP; Site: left antecubital; 15:28 Drug: Nitroglycerin 0.4 mg Route: Sublingual; ap3 16:39 Follow up: Response: No adverse reaction; Marked relief of symptoms ap3 18:58 CANCELLED (IV orderr): Ondansetron 4 mg PO once ap3 18:59 Drug: morphine 2 mg {Note: Rass 0.} Route: IVP; Site: left antecubital; ap3 18:59 Drug: Zofran (Ondansetron) 4 mg Route: IVP; Site: left antecubital; ap3 Intake: 15:31 IV: 1600ml; Total: 1600ml. ap3 Outcome: 14:04 Decision to Hospitalize by Provider. kdr 18:37 ER care complete, transfer ordered by . kdr 22:24 Patient left the ED. em Signatures: Dispatcher [employer] EDMS Tatum Hilton Kevin, MD MD [facility] Angel Ruff RN RN Toshia Serrato RN RN ss Martinez, [facility] Anna Sanchez RN RN ap3 Deric Gordillo RN RN ll1 Finesse Bo RN RN 2 Deric Gordillo RN ll1 Corrections: (The following items were deleted from the chart) 13:50 13:17 CORONAVIRUS+ drawn and sent. [address]
[2021-04-11 14:30] LABS: Absolute Lymphocytes (CBC) 0.7 K/uL (0.7-4.9); Basophils % 0.7 % (0-1.3); Hematocrit 25.7 % (39.6-49.0); Lymphocytes % 5.6 % (15.3-44.8); MPV 7.6 fL (7.6-11.3); RBC Red Blood Cell Count 2.74 M/uL (4.33-5.43)
[2021-04-11 14:33] LABS: Protime INR 1.34
[2021-04-11 14:49] LABS: Bilirubin Direct 0.1 mg/dL (0-0.2); Bilirubin Total 0.4 mg/dL (0.2-1.0); Protein, Total 6.6 g/dL (6.4-8.2)
[2021-04-11 14:50] LABS: Troponin (Emerg Dept Use Only) 3.03 ng/mL (0.0-0.045)
[2021-04-11 14:52] LABS: Blood Morphology Comment NOTED (NOT SEEN); Platelet Estimate ADEQ; Polychromasia SLIGHT; White Blood Cell Scan OK (OK)
[2021-04-11 14:57] LABS: CKMB Creatine Kinase MB 27.5 ng/mL (1.0-3.6)
[2021-04-11] MEDS ORDERED: NITROGLYCERIN 0.4 MG/TAB SL ONE (15:45)
[2021-04-11] MEDS ORDERED: HEPARIN/D5W 25,000 UNIT/500 ML BAG IV ONE (15:45)
[2021-04-11 15:50] LABS: Arterial Blood Carboxyhemoglob 1.9 % (0-1.5); Blood Gas Oxyhemoglobin 96.5 % (94-97); Blood O2 Saturation 99.3 % (92-98.5)
[2021-04-11] MEDS ORDERED: MORPHINE 2 MG/ML SYR ONE (19:11)
[2021-04-11] MEDS ORDERED: ONDANSETRON 4 MG/2 ML VIAL ONE (19:11)
[2021-04-11 22:32] VITALS: TEMP 97.5
[2021-04-11 22:35] VITALS: O2SAT 100
[2021-04-11 22:37] VITALS: BP 153/81
== END 2021-04-11 22:24 | disposition short-term general hospital (02) ==
LOC: ER 12:31
DX: J18.9 Pneumonia, unspecified organism (principal); I10 Essential (primary) hypertension; Z20.822 Contact with and (suspected) exposure to COVID-19; Z95.1 Presence of aortocoronary bypass graft; Z95.4 Presence of other heart-valve replacement; Z88.8 Allergy status to other drugs, medicaments and biological substances
CPT/HCPCS: 96365; 96368; 93005 ×2; 87040 ×2; 85025; 80048; 36415; 82150; 82550; 85610 ×2; 80076; 83605; 85730 ×2; 84484; 82553; 83690; 84145; 71045; 82805; 94660; 96375; 99285; U0003; J2270; J7040; J7030; J1644; J2930; J2405

== ENCOUNTER 2021-04-27 15:22 | Inpatient (IN) | payer OTHER, BC ==
[2021-04-27] MEDS ORDERED: AZITHROMYCIN IV 500 MG in NA CHLORIDE 0.9% 250 ML IVPB ONE (16:00)
[2021-04-27 16:15] LABS: Absolute Lymphocytes (CBC) 1.2 K/uL (0.7-4.9); Basophils % 1.5 % (0-1.3); Hematocrit 28.5 % (39.6-49.0); Lymphocytes % 19.1 % (15.3-44.8); RBC Red Blood Cell Count 3.07 M/uL (4.33-5.43)
[2021-04-27] MEDS ORDERED: METHYLPREDNISOLONE 125 MG INJ ONE (16:15)
[2021-04-27] MEDS ORDERED: LEVALBUTEROL 1.25 MG/3 ML NEB ONE ×2 (16:15→18:03)
[2021-04-27] MEDS ORDERED: FUROSEMIDE 20 MG/ 2ML VIAL ONE ×2 (16:15→19:05)
[2021-04-27 16:24] LABS: Albumin 3.1 g/dL (3.4-5.0); Bilirubin Direct 0.1 mg/dL (0-0.2); Bilirubin Total 0.4 mg/dL (0.2-1.0); CKMB Creatine Kinase MB 2.6 ng/mL (1.0-3.6); Magnesium 2.1 mg/dL (1.8-2.4); Potassium 3.9 mmol/L (3.5-5.1); Protein, Total 6.6 g/dL (6.4-8.2); Troponin (Emerg Dept Use Only) 0.02 ng/mL (0.0-0.045)
--- NOTE | 2021-04-27 17:04 | ER ---
Nurse's Notes [facility] Name: Benito Castaneda Age: 89 yrs Sex: Male : 1930 Arrival Date: 04/27/2021 Time: 15:31 Bed 8 Private MD: Diagnosis: Other pneumonia, unspecified organism Presentation: 04/27 15:31 Chief complaint: EMS states: they were called for shortness of breath. patient reported ap3 to them that he has been feeling this way since his recent discharge from [facility], but that it felt worse today. Coronavirus screen: Client presents with at least one sign or symptom that may indicate coronavirus-19. Standard/surgical mask placed on the client. Provider contacted for isolation considerations. Ebola Screen: No symptoms or risks identified at this time. Initial Sepsis Screen: Does the patient meet any 2 criteria? No. Patient's initial sepsis screen is negative. Does the patient have a suspected source of infection? No. Patient's initial sepsis screen is negative. Risk Assessment: Do you want to hurt yourself or someone else? Patient reports no desire to harm self or others. Onset of symptoms was April 21, 2021. Care prior to arrival: Medication(s) given: Albuterol Neb Atrovent Neb. Transition of care: [facility]. 15:31 Method Of Arrival: EMS: [facility] ap3 15:31 Acuity: ANT 3 ap3 Triage Assessment: 15:35 General: Appears distressed, Behavior is cooperative. Pain: Denies pain. Neuro: Level ap3 of Consciousness is awake, alert, obeys commands, Oriented to person, place, time, situation, Speech is normal. Cardiovascular: Patient's skin is warm and dry. Respiratory: Airway is patent Respiratory effort is labored, Respiratory pattern is symmetrical. Musculoskeletal: Swelling present in right leg and left leg. 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 - Social history:: Smoking status: Patient denies any tobacco usage or history of. - Family history:: not pertinent. Screenin:35 Abuse screen: Denies threats or abuse. Nutritional screening: No deficits noted. ap3 Tuberculosis screening: No symptoms or risk factors identified. Fall Risk No fall in past 12 months (0 pts). Secondary diagnosis (15 points) impaired mobility, No IV (0 pts). Ambulatory Aid- None/Bed Rest/Nurse Assist (0 pts). Gait- Weak (10 pts.). Mental Status- Oriented to own ability (0 pts). Total Brady Fall Scale indicates Low Risk Score (25-44 pts). Fall prevention measures have been instituted. Side Rails Up X 2 Frequent Obs/Assesments occuring As available Patient and Family Educated on Fall Prevention Program and strategies. Assessment: 15:40 General: Appears uncomfortable, Behavior is calm, cooperative. Pain: Denies pain. aa5 Neuro: Level of Consciousness is awake, alert, obeys commands, Oriented to person, place, time, situation. Cardiovascular: Reports shortness of breath, Denies chest pain, Heart tones S1 S2 present Edema 3+ pitting edema noted to lori lower extremities. Rhythm is regular. Respiratory: Reports shortness of breath cough that is non-productive, Airway is patent Respiratory effort is labored, Respiratory pattern is regular, symmetrical, Breath sounds with wheezes bilaterally. GI: Abdomen is round non-distended. : No signs and/or symptoms were reported regarding the genitourinary system. EENT: No signs and/or symptoms were reported regarding the EENT system. Derm: Skin is dry, Skin is pale, Skin temperature is warm. Musculoskeletal: Range of motion: intact in all extremities. 16:15 Reassessment: SOB has improved, wheezing auscultated bilaterally, respirations even and aa5 unlabored at this time. SOB increased when pt is speaking. . Neuro: Level of Consciousness is awake, alert, obeys commands, Oriented to person, place, time, situation. Derm: Skin is dry, Skin is pale, Skin temperature is warm. 16:45 Reassessment: Pt assisted with urinal, pt placed back in bed. . aa5 16:45 Neuro: Level of Consciousness is awake, alert, obeys commands, Oriented to person, aa5 place, time, situation. 16:45 Respiratory: Airway is patent Respiratory effort is even, unlabored, Respiratory aa5 pattern is regular, symmetrical. Derm: Skin is dry, Skin is pale, Skin temperature is warm. 16:50 Reassessment: x-ray at bedside . aa5 17:33 Reassessment: Increased wheezing auscultated and increased SOB noted, MD notified (see aa5 AUG for orders). . 18:50 Reassessment: Pt assisted with urinal, SOB increased upon exertion, pt placed back in aa5 bed at this time. . Vital Signs: 15:31 BP 168 / 89; Pulse 75; Resp 19; Temp 98.4(TE); Pulse Ox 94% on R/A; Weight 74.84 kg; ap3 Height 5 ft. 10 in. (177.80 cm); 16:39 BP 158 / 84; Pulse 82; Resp 21; Pulse Ox 97% on R/A; ap3 17:20 BP 146 / 72; Pulse 77; Resp 24 S; Pulse Ox 92% on 2 lpm NC; aa5 18:45 BP 145 / 76; Pulse 94; Resp 24 S; Pulse Ox 96% on 4 lpm NC; aa5 19:40 BP 143 / 76; Pulse 84; Resp 17; Pulse Ox 99% on R/A; Pain 0/10; dc2 21:00 BP 128 / 65; Pulse 76; Resp 17; Pulse Ox 97% on R/A; Pain 0/10; dc2 15:31 Body Mass Index 23.67 (74.84 kg, 177.80 cm) ap3 ED Course: 15:31 Patient arrived in ED. ap3 15:35 Triage completed. ap3 15:37 Arm band placed on right wrist. ap3 15:37 Patient has correct armband on for positive identification. Bed in low position. Call ap3 light in reach. Side rails up X2. athletic monitor on. Pulse ox on. NIBP on. Door closed. Noise minimized. 15:39 Don Bhakta MD is Attending Physician. ma2 15:45 First set of blood cultures drawn by me. aa5 15:55 Initial lab(s) drawn, by me, sent to lab. Inserted saline lock: 20 gauge in right aa5 antecubital area, using aseptic technique. Blood collected. 15:55 Second set of blood cultures drawn by me. aa5 16:01 Jo-Ann Nayak, BERYL is Primary Nurse. aa5 17:00 Chest Single View XRAY In Process Unspecified. EDMS 17:03 Omid Moore MD is Hospitalizing Provider. ma2 17:40 COVID swab sent to lab. aa5 19:05 Procalcitonin Sent. aa5 19:10 Report given to BERYL Pang and BERYL Pacheco. aa5 20:58 Patient admitted, IV remains in place. intact, No redness/swelling at site. dc2 20:58 No provider procedures requiring assistance completed. dc2 Administered Medications: 15:56 Drug: Lasix (furosemide) 20 mg Route: IVP; Site: right antecubital; aa5 16:15 Follow up: Response: No adverse reaction aa5 15:56 Drug: SOLU-Medrol (methylPrednisoLONE) 125 mg Route: IVP; Site: right antecubital; aa5 16:15 Follow up: Response: No adverse reaction aa5 15:57 Drug: Xopenex (levalbuterol) 1.25 mg Route: Inhalation; aa5 16:25 Follow up: SOB has improved. aa5 17:30 Drug: Zithromax (azithromycin) 500 mg Route: IVPB; Infused Over: 1 hrs; Site: right aa5 antecubital; 17:43 Follow up: Response: No adverse reaction aa5 18:30 Follow up: Response: No adverse reaction; IV Status: Completed infusion; IV Intake: aa5 250ml 17:43 Drug: Xopenex (levalbuterol) 1.25 mg Route: Inhalation; aa5 17:43 Drug: Xopenex (levalbuterol) 1.25 mg Route: Inhalation; aa5 18:51 Drug: Lasix (furosemide) 20 mg Route: IVP; Site: right antecubital; aa5 19:45 Follow up: Response: Other; Other 400ml clear yellow urine dc2 Intake: 18:30 IV: 250ml; Total: 250ml. aa5 Output: 16:50 Urine: 450ml (Voided); Total: 450ml. aa5 18:54 Urine: 400ml (Voided); Total: 850ml. aa5 19:40 Urine: 400ml (Voided); Total: 1250ml. dc2 Outcome: 17:04 Decision to Hospitalize by Provider. ma2 21:30 Admitted to Tele accompanied by tech, via stretcher, room 221, Report called to ashley Mcnamara RN 21:33 Condition: stable dc2 21:43 Patient left the ED. dc2 Signatures: Dispatcher [employer] EDMS Jo-Ann Nayak RN RN [email or web address] Don Bhakta MD MD az2 Anna Sanchez RN RN ap3 Tara Cortes RN RN dc2 Corrections: (The following items were deleted from the chart) 15:36 15:35 General: Appears ap3 ap3 16:02 15:45 Anna Sanchez RN is Primary Nurse. ap3 5 16:02 16:01 Primary Nurse role handed off by Anna Sanchez RN aa5 aa5 17:07 16:45 Reassessment: Patient is alert, oriented x 3, equal unlabored respirations, skin aa5 warm/dry/pink. Pt assisted with urinal, pt placed back in bed. . aa5 17:46 17:25 Reassessment: Increased wheezing auscultated and increased SOB noted, notified aa5 (see MAR for orders). . aa5
--- NOTE | 2021-04-27 17:04 | EDPHYS ---
[facility] Name: Benito Castaneda Age: 89 yrs Sex: Male : 1930 Arrival Date: 04/27/2021 Time: 15:31 Bed 8 Private MD: ED Physician Don Bhakta HPI: 04/27 15:42 This 89 yrs old Male presents to ER via EMS with complaints of sob. ma2 15:42 Onset: The symptoms/episode began/occurred gradually, 2 day(s) ago. Associated signs ma2 and symptoms: Pertinent negatives: diaphoresis, fever, loss of consciousness, numbness in extremities, visual changes. Severity of symptoms: At their worst the symptoms were moderate in the emergency department the symptoms are unchanged. The patient has experienced similar episodes in the past. has worsening LE edema. 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 - Social history:: Smoking status: Patient denies any tobacco usage or history of. - Family history:: not pertinent. ROS: 15:42 Constitutional: Negative for fever, chills, and weight loss. ma2 15:42 All other systems are negative. Exam: 15:42 Constitutional: This is a well developed, well nourished patient who is awake, alert, ma2 and in no acute distress. Neck: Trachea midline, no thyromegaly or masses palpated, and no cervical lymphadenopathy. Supple, full range of motion without nuchal rigidity, or vertebral point tenderness. No Meningismus. Chest/axilla: Normal chest wall appearance and motion. Nontender with no deformity. No lesions are appreciated. Cardiovascular: Regular rate and rhythm with a normal S1 and S2. No gallops, murmurs, or rubs. Normal PMI, no JVD. No pulse deficits. Respiratory: basal rales and expiratory wheezes bilat, otherwise Lungs have equal breath sounds bilaterally, clear to auscultation and percussion. No rhonchi or d. No increased work of breathing, no retractions or nasal flaring. Abdomen/GI: Soft, non-tender, with normal bowel sounds. No distension or tympany. No guarding or rebound. No evidence of tenderness throughout. Back: No spinal tenderness. No costovertebral tenderness. Full range of motion. Skin: Warm, dry with normal turgor. Normal color with no rashes, no lesions, and no evidence of cellulitis. MS/ Extremity: bilat LE edema 2+ pitting, otherwise Pulses equal, no cyanosis. Neurovascular intact. Full, normal range of motion. Neuro: Awake and alert, GCS 15, oriented to person, place, time, and situation. Cranial nerves II-XII grossly intact. Motor strength 5/5 in all extremities. Sensory grossly intact. Cerebellar exam normal. Normal gait. Vital Signs: 15:31 BP 168 / 89; Pulse 75; Resp 19; Temp 98.4(TE); Pulse Ox 94% on R/A; Weight 74.84 kg; ap3 Height 5 ft. 10 in. (177.80 cm); 16:39 BP 158 / 84; Pulse 82; Resp 21; Pulse Ox 97% on R/A; ap3 17:20 BP 146 / 72; Pulse 77; Resp 24 S; Pulse Ox 92% on 2 lpm NC; aa5 18:45 BP 145 / 76; Pulse 94; Resp 24 S; Pulse Ox 96% on 4 lpm NC; aa5 19:40 BP 143 / 76; Pulse 84; Resp 17; Pulse Ox 99% on R/A; Pain 0/10; dc2 21:00 BP 128 / 65; Pulse 76; Resp 17; Pulse Ox 97% on R/A; Pain 0/10; dc2 15:31 Body Mass Index 23.67 (74.84 kg, 177.80 cm) ap3 MDM: 15:39 Patient medically screened. ma2 15:42 Differential diagnosis: Anemia asthma, Bronchitis pneumonia, reactive airway disease. ma2 16:58 Data reviewed: vital signs, nurses notes, EMS record. Counseling: I had a detailed ut2 discussion with the patient and/or guardian regarding: the historical points, exam findings, and any diagnostic results supporting the discharge/admit diagnosis, the presence of at least one elevated blood pressure reading (>120/80) during this emergency department visit, the need for outpatient follow up. Response to treatment: the patient's symptoms have markedly improved after treatment. 04/27 15:41 Order name: BMP; Complete Time: 16:49 ma2 04/27 15:41 Order name: Blood Culture Adult (2) ma2 04/27 15:41 Order name: CBC with Diff; Complete Time: 16:49 ma2 04/27 15:41 Order name: CPK; Complete Time: 16:49 ma2 04/27 15:41 Order name: Ckmb; Complete Time: 16:49 ma2 04/27 15:41 Order name: Hepatic Function; Complete Time: 16:49 ma2 04/27 15:41 Order name: Lipase; Complete Time: 16:49 ma2 04/27 15:41 Order name: Magnesium; Complete Time: 16:49 ma2 04/27 15:41 Order name: NT PRO-BNP; Complete Time: 16:49 ma2 04/27 15:41 Order name: PT-INR; Complete Time: 17:56 ma2 04/27 15:41 Order name: Ptt, Activated; Complete Time: 17:56 ma2 04/27 15:41 Order name: Troponin (emerg Dept Use Only); Complete Time: 16:49 ma2 04/27 15:41 Order name: EKG; Complete Time: 15:42 ma2 04/27 15:41 Order name: Cardiac monitoring; Complete Time: 15:45 ma2 04/27 15:41 Order name: EKG - Nurse/Tech; Complete Time: 15:45 ma2 04/27 15:41 Order name: IV Saline Lock; Complete Time: 15:59 ma2 04/27 16:39 Order name: Chest Single View XRAY; Complete Time: 17:56 aa5 04/27 17:34 Order name: COVID-19 SARS RT PCR (Document "Date of Onset" if Symptomatic) aa5 04/27 17:57 Order name: Procalcitonin la1 04/27 17:57 Order name: Procalcitonin EDMS 04/27 15:41 Order name: Labs collected and sent; Complete Time: 15:59 ma2 04/27 15:41 Order name: O2 Per Protocol; Complete Time: 15:45 ma2 04/27 15:41 Order name: O2 Sat Monitoring; Complete Time: 15:45 ma2 Administered Medications: 15:56 Drug: Lasix (furosemide) 20 mg Route: IVP; Site: right antecubital; aa5 16:15 Follow up: Response: No adverse reaction aa5 15:56 Drug: SOLU-Medrol (methylPrednisoLONE) 125 mg Route: IVP; Site: right antecubital; aa5 16:15 Follow up: Response: No adverse reaction aa5 15:57 Drug: Xopenex (levalbuterol) 1.25 mg Route: Inhalation; aa5 16:25 Follow up: SOB has improved. aa5 17:30 Drug: Zithromax (azithromycin) 500 mg Route: IVPB; Infused Over: 1 hrs; Site: right aa5 antecubital; 17:43 Follow up: Response: No adverse reaction aa5 18:30 Follow up: Response: No adverse reaction; IV Status: Completed infusion; IV Intake: aa5 250ml 17:43 Drug: Xopenex (levalbuterol) 1.25 mg Route: Inhalation; aa5 17:43 Drug: Xopenex (levalbuterol) 1.25 mg Route: Inhalation; aa5 18:51 Drug: Lasix (furosemide) 20 mg Route: IVP; Site: right antecubital; aa5 19:45 Follow up: Response: Other; Other 400ml clear yellow urine dc2 Disposition Summary: 04/27/21 17:04 Hospitalization Ordered Hospitalization Status: Observation ma2 Provider: Omid Moore ma2 Location: Telemetry/[facility]Sur (Inpatient) ma2 Condition: Stable ma2 Problem: new ma2 Symptoms: are unchanged ma2 Bed/Room Type: Standard ma2 Room Assignment: 221(04/27/21 20:43) cg Diagnosis - Other pneumonia, unspecified organism ma2 Forms: - Medication Reconciliation Form ma2 - SBAR form ma2 Signatures: Dispatcher [employer] EDAZ Jo-Ann Nayak, BERYL RN aa5 Perico Conde, FOUNDATION DRILL OPERATOR HELPER-C FOUNDATION DRILL OPERATOR HELPER-Albert1 Dian Mcbride RN RN cg Don Bhakta MD MD ma2 Anna Sanchez RN RN ap3 SebastianTara wheatley RN dc2 Corrections: (The following items were deleted from the chart) 15:44 15:[address] [facility] EDAZ 20:43 17:04 ma2 cg
[2021-04-27 17:20] LABS: Protime INR 1.32
--- NOTE | 2021-04-27 17:49 | RAD REPORT ---
EXAM DESCRIPTION: RAD - Chest Single View - 04/27/2021 4:59 pm CLINICAL HISTORY: SOB COMPARISON: April 11 TECHNIQUE: AP portable chest image was obtained 04/27/2021 4:59 pm . FINDINGS: Lung volumes are low. Increased interstitial opacification is present primarily perihilar in location. Mild cardiomegaly is present with vascular engorgement. Heart and vessel prominence is s lightly decreased compared April 11. There is fluid or atelectasis along the minor fissure on the r ight. Sternotomy wires are in place. No pneumothorax is present. Small pleural effusion on the left s uspected. No acute bony abnormality seen. No acute aortic findings suspected. IMPRESSION: CHF/volume overload pattern is present slightly less pronounced than seen April 11.
--- NOTE | 2021-04-27 18:38 | P.HP ---
Certification for Inpatient Patient admitted to: Inpatient With expected LOS: >2 Midnights Patient will require the following post-hospital care: None Practitioner: I am a practitioner with admitting privileges, knowledge of patient current condition, hospital course, and medical plan of care. Services: Services provided to patient in accordance with Admission requirements found in Title 42 Section 412.3 of the Code of Federal Regulations Patient History Date of Service: 04/27/21 Primary Care Provider: Dr. Tate Reason for admission: CHF exacerbation History of Present Illness: 89-year-old male with history of CAD status post CABG/aortic valve replacement, chronic diastolic congestive heart failure, hypertension presents emergency department for shortness of breath. Patient was seen approximately 15 days ago and transferred to [facility] for further evaluation of NSTEMI and pneumonia. Patient was treated with IV diuresis at [facility] and discharged back to his snf [facility]. Apparently patient did not receive prescription for medication Lasix snf and has noticed increasing swelling of the lower extremities and shortness of breath since he was discharged. Patient was evaluated the emergency room and labs are significant for white blood cell count 6 hemoglobin 9.6 and adequate 20.5 sodium 133 GFR 53 glucose 108 BNP 10,692 chest x-ray with CHF/volume overload pattern. Patient was given 4 L Lasix IV in the emergency department, noted to be mildly hypoxic with saturations in the high 80s on room air, ED provider wishes to admit for further evaluation and management of CHF exacerbation. Allergies doxazosin [From Cardura] Allergy (Severe, Verified 11/06/18 17:42) [facility] Home Medications: Amlodipine [Norvasc] 10 mg PO DAILY 04/14/18 Eszopiclone [Lunesta*] 3 mg PO BEDTIME 04/14/18 Tamsulosin [Flomax] 0.4 mg PO DAILY 04/14/18 Aspirin [Aspirin EC 81 MG] 81 mg PO DAILY 11/06/18 Esomeprazole Mag Trihydrate [Nexium] 40 mg PO DAILY AT SUPPER 11/06/18 - Past Medical/Surgical History Diabetic: No -: CAD/CABG -: History of prostate cancer -: Chronic diastolic congestive heart failure -: History of DVT with IVC filter -: aortic valve replacement November 2017 -: CABG 2010 -: IVC filter in place -: Appendectomy -: Cholecystectomy Psychosocial/ Personal History: Patient is currently resident at [facility] - Family History Father -: Heart disease - Social History Smoking Status: Former smoker Alcohol use: Yes CD- Drugs: No Caffeine use: Yes [facility] Review of Systems 10-point ROS is otherwise unremarkable Respiratory: Cough, Shortness of Breath Cardiovascular: Edema, Light Headedness, As per HPI Physical Examination - Physical Exam General: Alert, In no apparent distress, Oriented x3 HEENT: Atraumatic, PERRLA, Mucous membr. moist/pink, EOMI, Sclerae nonicteric Neck: Supple, 2+ carotid pulse no bruit, No LAD, Without JVD or thyroid abnormality Respiratory: Crackles/rales, Expiratory wheezes Cardiovascular: Regular rate/rhythm, Normal S1 S2, Edema Capillary refill: <2 Seconds Gastrointestinal: Normal bowel sounds, No tenderness Musculoskeletal: No tenderness Integumentary: No rashes Neurological: Normal speech, Normal strength at 5/5 x4 extr, Normal tone, Normal affect - Studies Laboratory Data (last 24 hrs) 04/27/21 15:55: PT 15.2 H, INR 1.32, APTT 34.1 04/27/21 15:55: WBC 6.00, Hgb 9.6 L, Hct 28.5 L, Plt Count 212 04/27/21 15:55: Sodium 133 L, Potassium 3.9, BUN 15, Creatinine 1.28, Glucose 108 H, Magnesium 2.1, Total Bilirubin 0.4, AST 16, ALT 26, Alkaline Phosphatase 64, Lipase 76 Assessment and Plan - Plan Assessment: Acute hypoxic respiratory failure secondary to acute on chronic diastolic congestive heart failure History of CAD S/P CABG, TAVR 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 Cardiology consult in place, daily room air saturations. Anticipate clinical provement over the course the next 48 to 72 hours. Appreciate further input from cardiology. 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 twice daily. Hypertension: Continue lisinopril, other home medications. History of prostate cancer: Stable DVT PPX: Continue Eliquis Code status: Full Discharge Plan: Home Plan to discharge in: 72 Hours - Advance Directives Does patient have a Living Will: No Does patient have a Durable POA for Healthcare: No - Code Status/Comfort Care Code Status Assessed: Yes (Full code) Critical Care: No Time Spent Managing Pts Care (In Minutes): 55
[2021-04-27] MEDS ORDERED: ONDANSETRON 4 MG/2 ML VIAL IV PRN (22:01)
[2021-04-27] MEDS: APIXABAN 2.5 MG TABLET PO SCH (22:33)
[2021-04-27] MEDS: TRAZODONE 50 MG TABLET PO SCH (22:34)
[2021-04-28] MEDS ORDERED: FUROSEMIDE 40 MG/4 ML VIAL IV ONE (01:24)
[2021-04-28] MEDS ORDERED: ALBUTEROL 2.5 MG/3 ML NEB SOL NEB ONE (01:26)
[2021-04-28] MEDS ORDERED: IPRATROPIUM BROM 0.5MG/2.5ML NEB ONE (01:26)
[2021-04-28 06:21] LABS: Absolute Lymphocytes (CBC) 0.4 K/uL (0.7-4.9); Basophils % 0.2 % (0-1.3); Hematocrit 26.9 % (39.6-49.0); Lymphocytes % 8.8 % (15.3-44.8); MPV 8.2 fL (7.6-11.3); RBC Red Blood Cell Count 2.92 M/uL (4.33-5.43)
[2021-04-28 06:45] LABS: Albumin 2.7 g/dL (3.4-5.0); Bilirubin Total 0.3 mg/dL (0.2-1.0); Potassium 3.4 mmol/L (3.5-5.1); Thyroid Stimulating Hormone 1.85 uIU/mL (0.360-3.740); Troponin I 0.15 ng/mL (0.0-0.045)
[2021-04-28] MEDS ORDERED: POTASSIUM CL SA 10 MEQ TAB PO ONE ×2 (08:39→09:00)
[2021-04-28] MEDS: TRAZODONE 50 MG TABLET PO SCH ×3 (09:00→20:19)
[2021-04-28] MEDS: lisinopriL 5 MG TAB PO SCH (09:05)
[2021-04-28] MEDS: APIXABAN 2.5 MG TABLET PO SCH ×2 (09:05→20:19)
[2021-04-28] MEDS: FUROSEMIDE 40 MG/4 ML VIAL IV SCH ×2 (09:06→17:59)
[2021-04-28 09:17] LABS: Blood Morphology Comment NOT SEEN (NOT SEEN); Platelet Estimate ADEQ
[2021-04-28 09:53] LABS: Urine Appearance CLEAR (Clear); Urine Bilirubin NEGATIVE (Negative); Urine Blood NEGATIVE (Negative); Urine Color YELLOW (Yellow); Urine Glucose NEGATIVE (Negative); Urine Protein NEGATIVE (Negative); Urine Specific Gravity <=1.005 (1.005-1.030); Urine Urobilinogen 0.2 mg/dL (0.2-1.0); Urine pH 6.5 (5.0-7.0)
[2021-04-28 09:54] LABS: Urine Microscopic Reflex NO UMIC
--- NOTE | 2021-04-28 12:33 | P.PN ---
Date of Service: 04/28/21 Subjective: No acute events overnight. Patient reports breathing more comfortably. Still requiring oxygen supplementation via nasal cannula Feels some slight improvement in his lower extremity swelling as well No new complaints No chest pain ROS: 10 point ROS as noted above, otherwise negative Physical exam GEN: Alert, oriented, NAD HEENT: Normal conjunctiva, sclera anicteric CV: Regular rate and rhythm, no edema Pulm: Bilateral crackles, nonlabored respirations on 4 L nasal cannula ABD: Soft, nontender, nondistended MSK: No joint tenderness/swelling Integumentary: No rashes Neuro: Normal speech, normal affect Problem List Acute hypoxic respiratory failure secondary to acute on chronic diastolic congestive heart failure NSTEMI, likely demand ischemia History of CAD S/P CABG, TAVR 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 Patient is unsure if he was taking p.o. Lasix at [facility] after his recent discharge Troponin increased, patient without chest pain. Suspect demand ischemia in the setting of acute CHF exacerbation Cardiology consulted, troponin elevated, CHF exacerbation Daily room air saturations, wean O2 as tolerated Monitor urine output Continue home Eliquis 2.5 mg twice daily for h/o DVT Continue home lisinopril Continue home Flomax Physical therapy consulted Patient appears to be slowly improving DVT PPX: Continue Eliquis Code: full Dispo: Anticipate DC home in 2-3 days Time Spent Managing Pts Care (In Minutes): 35
--- NOTE | 2021-04-28 14:22 | EKG ---
Test Date: 2021-04-27 Test Time: 15:39:45 [place]: AURA MEASUREMENT RESULTS: Intervals: Rate: 81 KS: 168 QRSD: 80 QT: 376 QTc: 436 [place]: P: 44 KS: 168 QRS: 2 T: 98 INTERPRETIVE STATEMENTS: Normal sinus rhythm Septal infarct, age undetermined Abnormal ECG Compared to ECG 04/11/2021 21:56:37 Myocardial infarct finding now present Sinus tachycardia no longer present Ventricular premature complex(es) no longer present ST (T wave) deviation no longer present Electronically Signed On 04-28-21 14:21:33 CDT by Reji Ramon
[2021-04-28 15:23] LABS: Potassium 3.6 mmol/L (3.5-5.1)
[2021-04-28] MEDS: DOCUSATE NA 100 MG CAP PO SCH (20:19)
[2021-04-29] MEDS: BENZONATATE 100 MG CAP PO PRN (00:59)
[2021-04-29 05:52] LABS: Absolute Lymphocytes (CBC) 1.1 K/uL (0.7-4.9); Basophils % 0.9 % (0-1.3); Lymphocytes % 10.2 % (15.3-44.8); MPV 8.1 fL (7.6-11.3); RBC Red Blood Cell Count 3.12 M/uL (4.33-5.43)
[2021-04-29 06:13] LABS: Albumin 2.9 g/dL (3.4-5.0); Phosphorus 2.8 mg/dL (2.5-4.9); Potassium 3.4 mmol/L (3.5-5.1); Troponin I 0.25 ng/mL (0.0-0.045)
--- NOTE | 2021-04-29 06:22 | P.PN ---
Date of Service: 04/29/21 Subjective: No acute events overnight. Patient reports he is feeling better today. Swelling is improving, breathing more comfortably on 3-4 L nasal cannula, with some mild tachypnea and increased work of breathing at times No new complaints ROS: 10 point ROS as noted above, otherwise negative Physical exam GEN: Alert, oriented, NAD HEENT: Normal conjunctiva, sclera anicteric CV: Regular rate and rhythm, 1-2+ edema to mid-tibial height bilaterally Pulm: mild Bilateral crackles, nonlabored respirations on 4 L nasal cannula ABD: Soft, nontender, nondistended MSK: No joint tenderness/swelling Integumentary: No rashes Neuro: Normal speech, normal affect Problem List Acute hypoxic respiratory failure secondary to acute on chronic diastolic congestive heart failure NSTEMI, likely demand ischemia History of CAD S/P CABG, TAVR 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 Lasix at home chronic doctor's recent discharge/transfer there. Troponin elevated yesterday and improving now. Cardiology consulted, suspect de nellie ischemia Start carvedilol, patient will need p.o. Lasix 40 mg on discharge Daily room air saturations, wean O2 as tolerated Monitor urine output Continue home Eliquis 2.5 mg twice daily for h/o DVT Continue home lisinopril Continue home Flomax Physical therapy consulted Patient appears to be slowly improving echo ordered VTE: Eliquis Code: full Dispo: Anticipate DC home in ~1-2 days Time Spent Managing Pts Care (In Minutes): 35
[2021-04-29] MEDS ORDERED: POTASSIUM CL SA 10 MEQ TAB PO ONE (09:00)
[2021-04-29] MEDS: DOCUSATE NA 100 MG CAP PO SCH ×2 (11:00→20:05)
[2021-04-29] MEDS: lisinopriL 5 MG TAB PO SCH (11:01)
[2021-04-29] MEDS: TAMSULOSIN 0.4 MG SR CAP PO SCH (11:01)
[2021-04-29] MEDS: FUROSEMIDE 40 MG/4 ML VIAL IV SCH ×2 (11:01→16:56)
[2021-04-29] MEDS: APIXABAN 2.5 MG TABLET PO SCH ×2 (11:01→20:06)
--- NOTE | 2021-04-29 16:43 | CON ---
Date of Consultation: 04/28/2021 History Of Present Illness: Congestive heart failure. History Of Present Illness: Mr. Castaneda is an 89-year-old male. He is a patient of Dr. Jaclyn gillespie whom he follows up with for congestive heart failure. He came in with shortness of breath. Sympto ms have been going on for 2 days. He denied any chest pain. Denied any nausea, vomiting, diaphoresi s, PND, orthopnea, palpitations, or syncope. Has had some pedal edema. Past Medical History: Includes aortic valve replacement, coronary stent, CVA, diverticulitis, DVT in the right leg, hypertension, CAD, and myocardial infarction. Medications: Include clonidine, Eliquis, finasteride, Flomax, lisinopril, omeprazole. Allergies: INCLUDE CARDURA, IODINE, LIPITOR, SULFUR. Review of Systems: Negative. Social History: Negative. Family History: Noncontributory. Past Surgical History: Includes appendectomy, bowel resection, cholecystectomy, history of CABG, and valve replacement. Physical Examination: Vital Signs: His blood pressure was 148/69. He was in a sinus rhythm, afebrile. O2 saturation was 96% on nasal cannula, 4 L. HEENT: Negative. Neck: Supple with no bruit. Chest: Revealed some rales both bases. Cardiac: Revealed a regular rhythm and rate with S4 gallops. No murmurs or rubs. Abdomen: Benign. Extremities: Revealed 1+ edema. Diagnostic Data: His hemoglobin of 8.9, creatinine of 1.30. Potassium was 3.4. His glucose was 108 . His troponin is 0.15. His BNP was 10,692. Chest x-ray showed congestive heart failure. EKG show ed old septal infarction, normal sinus rhythm. Impression And Plan: 1.Acute on chronic systolic congestive heart failure. 2.Aortic valve replacement. 3.Coronary artery disease, status post coronary artery bypass graft and stent. 4.History of cerebrovascular accident. 5.Diverticulitis. 6.History of deep vein thrombosis in the right leg, on Eliquis. 7.Hypertension. 8.History of prostate cancer. 9.Gastroesophageal reflux disease. The patient at home is on clonidine, Eliquis, finasteride, omepr azole, Flomax, and lisinopril. I am surprised that he is not on a low-dose beta-areli and I think he should be on Lasix on a daily basis. I agree with his present regimen for now. He is now on his home medication. He is also on Lasix. I will discuss the case further with Dr. Moore, but I think rich richardson can probably go home in the next day or 2. ALETA/RODOLFO Voice ID: [id number] Report ID: [id number]
[2021-04-29] MEDS: carvediloL 3.125 MG TAB PO SCH (17:45)
[2021-04-29] MEDS: TRAZODONE 50 MG TABLET PO SCH (20:05)
[2021-04-30] MEDS: BENZONATATE 100 MG CAP PO PRN (01:46)
[2021-04-30] MEDS ORDERED: ALBUTEROL 2.5 MG/3 ML NEB SOL NEB ONE (03:37)
[2021-04-30] MEDS ORDERED: IPRATROPIUM BROM 0.5MG/2.5ML NEB ONE (03:37)
[2021-04-30 04:09] LABS: Absolute Lymphocytes (CBC) 1.4 K/uL (0.7-4.9); Basophils % 1.3 % (0-1.3); Hematocrit 29.6 % (39.6-49.0); Lymphocytes % 18.5 % (15.3-44.8); MPV 7.9 fL (7.6-11.3)
[2021-04-30 04:18] LABS: Albumin 2.7 g/dL (3.4-5.0); Magnesium 2.1 mg/dL (1.8-2.4); Phosphorus 3.1 mg/dL (2.5-4.9); Potassium 3.7 mmol/L (3.5-5.1)
[2021-04-30] MEDS: carvediloL 3.125 MG TAB PO SCH ×2 (05:54→17:04)
[2021-04-30] MEDS ORDERED: POTASSIUM CL SA 10 MEQ TAB PO ONE (06:00)
--- NOTE | 2021-04-30 06:23 | P.PN ---
Date of Service: 04/30/21 Subjective: Improving, tolerating room air this morning, some slight shortness of breath Continues with lower extremity edema but improving Continues with generalized weakness ROS: 10 point ROS as noted above, otherwise negative Physical exam GEN: Alert, oriented, NAD HEENT: Normal conjunctiva, sclera anicteric CV: Regular rate and rhythm, 1+ edema to mid-tibial height bilaterally Pulm: mild Bilateral crackles, nonlabored respirations on RA ABD: Soft, nontender, nondistended Neuro: Normal speech, normal affect Problem List Acute hypoxic respiratory failure secondary to acute on chronic diastolic congestive heart failure NSTEMI, likely demand ischemia History of CAD S/P CABG, TAVR 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 Lasix at home chronic doctor's recent discharge/transfer there. Troponin elevated and improved. Cardiology consulted, suspect demand ischemia Started carvedilol, patient will need p.o. Lasix 40 mg on discharge Daily room air saturations, wean O2 as tolerated Monitor urine output Continue home Eliquis 2.5 mg twice daily for h/o DVT Continue home lisinopril Continue home Flomax Physical therapy consulted echo ordered for today overall improving VTE: Eliquis Code: full Dispo: Anticipate DC home in next 24hrs Time Spent Managing Pts Care (In Minutes): 35 31
--- NOTE | 2021-04-30 07:38 | RAD REPORT ---
EXAM DESCRIPTION: RAD - Chest Single View - 04/30/2021 6:34 am CLINICAL HISTORY: hypoxia, CHF, f/u effusions/edema COMPARISON: April 27 TECHNIQUE: AP portable chest image was obtained 04/30/2021 6:34 am . FINDINGS: Lung volumes are very low. Interstitial pattern is similar or fractionally improved when a djusting for the very low lung volumes. No new mass or consolidations seen. Cardiomegaly is still present. Central vasculature within range of normal. Sternotomy wires are in pl jagjit. Trachea is midline. No pneumothorax or large pleural effusion. Minimal amount of fluid seen along the minor fissure. No a cute bony abnormality seen. No acute aortic findings suspected. IMPRESSION: CHF/volume overload findings show improvement. Cardiomegaly remains.
[2021-04-30] MEDS: TAMSULOSIN 0.4 MG SR CAP PO SCH (08:52)
[2021-04-30] MEDS: lisinopriL 5 MG TAB PO SCH (08:53)
[2021-04-30] MEDS: FUROSEMIDE 40 MG/4 ML VIAL IV SCH ×2 (08:53→17:04)
[2021-04-30] MEDS: DOCUSATE NA 100 MG CAP PO SCH ×2 (08:53→20:22)
[2021-04-30] MEDS: APIXABAN 2.5 MG TABLET PO SCH ×2 (08:53→20:23)
--- NOTE | 2021-04-30 14:53 | ECHO ---
HEIGHT: 5 ft 10 in WEIGHT: 138 lb 1.6 oz DATE OF STUDY: 04/30/[address]: Omid Moore MD 2-DIMENSIONAL: YES M.MODE: YES DOPPLER: YES COLOR FLOW: YES TDS: NO PORTABLE: NO DEFINITY: NO BUBBLE STUDY: NO DIAGNOSIS: CONGESTIVE HEART FAILURE CARDIAC HISTORY: CATHERIZATION: YES SURGERY: YES PROSTHETIC VALVE: YES PACEMAKER: NO MEASUREMENTS (cm) DIASTOLIC (NORMALS) SYSTOLIC (NORMALS) IVSd 0.9 (0.6-1.2) LA Diam 3.7 (1.9-4.0) LVEF 55-60% LVIDd 5.1 (3.5-5.7) LVIDs 3.8 (2.0-3.5) %FS 24% LVPWd 1.0 (0.6-1.2) Ao Diam 2.7 (2.0-3.7) 2 DIMENSIONAL ASSESSMENT: RIGHT ATRIUM: NORMAL LEFT ATRIUM: NORMAL RIGHT VENTRICLE: NORMAL LEFT VENTRICLE: NORMAL TRICUSPID VALVE: MITRAL VALVE: PULMONIC VALVE: AORTIC VALVE: PROSTHESIS PERICARDIAL EFFUSION: NONE AORTIC ROOT: NORMAL LEFT VENTRICULAR WALL MOTION: NORMAL DOPPLER/COLOR FLOW: SEE BELOW. COMMENTS: NORMAL LEFT VENTRICULAR EJECTION FRACTION 55-60%. MODERATE MITRAL REGURGITATION. MILD PULMONARY AND TRICUSPID REGURGITATION. NORMALLY FUNCTIONING AORTIC VALVE PROSTHESIS WITH MILD AORTIC INSUFFICENCY. TECHNOLOGIST: Maggie MASTERS
[2021-04-30 17:27] VITALS: BMI 23.7
[2021-04-30] MEDS: TRAZODONE 50 MG TABLET PO SCH (20:22)
[2021-05-01 05:42] LABS: Hematocrit 34.6 % (39.6-49.0); MPV 8.3 fL (7.6-11.3)
[2021-05-01 05:57] LABS: Albumin 3.1 g/dL (3.4-5.0); Phosphorus 3.3 mg/dL (2.5-4.9); Potassium 3.6 mmol/L (3.5-5.1)
[2021-05-01] MEDS: carvediloL 3.125 MG TAB PO SCH ×2 (06:00→17:11)
[2021-05-01] MEDS ORDERED: POTASSIUM CL SA 10 MEQ TAB PO ONE (06:45)
[2021-05-01 08:23] VITALS: O2SAT 98
[2021-05-01] MEDS: APIXABAN 2.5 MG TABLET PO SCH (09:00)
[2021-05-01] MEDS ORDERED: VANCOMYCIN 1.25 GM in NA CHLORIDE 0.9% 250 ML IVPB SCH (09:00)
[2021-05-01] MEDS: DOCUSATE NA 100 MG CAP PO SCH (09:00)
[2021-05-01] MEDS: TAMSULOSIN 0.4 MG SR CAP PO SCH (09:00)
[2021-05-01] MEDS: lisinopriL 5 MG TAB PO SCH (09:00)
[2021-05-01] MEDS: FUROSEMIDE 40 MG/4 ML VIAL IV SCH ×2 (09:00→17:00)
[2021-05-01] MEDS ORDERED: NA CHLORIDE 0.9% 0 ML ONE (10:35)
--- NOTE | 2021-05-01 16:45 | P.DS ---
Admission Date: 04/27/21 Discharge Date: 05/01/21 Primary Care Provider: Dr. Tate Disposition: TRANSFER TO HALFWAY Discharge Condition: FAIR Reason for Admission: CHF exacerbation Brief History of Present Illness: 89-year-old male with history of CAD status post CABG/aortic valve replacement, chronic diastolic congestive heart failure, hypertension presents emergency department for shortness of breath. Patient was seen approximately 15 days ago and transferred to [facility] for further evaluation of NSTEMI and pneumonia. Patient was treated with IV diuresis at [facility] and discharged ba ck to his [facility]. Apparently patient did not receive prescription for Lasix. He noticed increasing swelling of the lower extremities and shortness of breath since he was discharged. Patient was evaluated the emergency room and labs are significant for white blood cell count 6 hemoglobin 9.6 and adequate 20.5 sodium 133 GFR 53 glucose 108 BNP 10,692 chest x-ray with CHF/volume overload pattern. Patient was given 4 L Lasix IV in the emergency department, noted to be mildly hypoxic with saturations in the high 80s on room air. Patient was admitted for further management of CHF exacerbation. 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 increase diuresis from 40 twice daily to the 80 twice daily on 04/29 Troponin elevated but trended down. Cardiology consulted, seen by Dr. Ramon who suspect demand ischemia. Dr. Ramon recommended maintenance Lasix. Started carvedilol. Patient became stable on room air with good oxygen saturation. Continued home Eliquis 2.5 mg twice daily for h/o DVT Continued home lisinopril Continued home Flomax Echo showed normal EF and normal functioning prosthetic aortic valve. Patient clinically improved. He is discharged with lasix 40 mg daily. Vital Signs/Physical Exam: Temp Pulse Resp BP Pulse Ox 97.0 F 79 16 145/69 H 96 05/01/21 12:00 05/01/21 12:00 05/01/21 12:00 05/01/21 12:00 05/01/21 12:00 General: Alert, In no apparent distress, Oriented x3 HEENT: Mucous membr. moist/pink Neck: JVD not distended Respiratory: Clear to auscultation bilaterally, Normal air movement Cardiovascular: No edema, Regular rate/rhythm, Normal S1 S2 Gastrointestinal: Soft and benign, Non-distended Musculoskeletal: No swelling Integumentary: No rashes Neurological: Normal strength at 5/5 x4 extr Laboratory Data at Discharge: WBC 7.20 K/uL (4.3-10.9) 05/01/21 05:22 Hgb 11.8 g/dL (13.6-17.9) L 05/01/21 05:22 Hct 34.6 % (39.6-49.0) L D 05/01/21 05:22 Plt Count 246 K/uL (152-406) 05/01/21 05:22 PT 15.2 SECONDS (9.5-12.5) H 04/27/21 15:55 INR 1.32 04/27/21 15:55 APTT 34.1 SECONDS (24.3-36.9) 04/27/21 15:55 Sodium 134 mmol/L (136-145) L 05/01/21 05:22 Potassium 3.6 mmol/L (3.5-5.1) 05/01/21 05:22 BUN 21 mg/dL (7-18) H 05/01/21 05:22 Creatinine 1.08 mg/dL (0.55-1.3) 05/01/21 05:22 Glucose 103 mg/dL (74-106) 05/01/21 05:22 Phosphorus 3.3 mg/dL (2.5-4.9) 05/01/21 05:22 Magnesium 2.1 mg/dL (1.8-2.4) 04/30/21 03:55 Total Bilirubin 0.3 mg/dL (0.2-1.0) 04/28/21 05:55 AST 10 U/L (15-37) L 04/28/21 05:55 ALT 21 U/L (12-78) 04/28/21 05:55 Alkaline Phosphatase 57 U/L (45-117) 04/28/21 05:55 Troponin I 0.25 ng/mL (0.0-0.045) H 04/29/21 05:33 Triglycerides 38 mg/dL (<150) 04/28/21 05:55 Cholesterol 190 mg/dL (<200) 04/28/21 05:55 HDL Cholesterol 88 mg/dL (40-60) H 04/28/21 05:55 Cholesterol/HDL Ratio 2.16 04/28/21 05:55 Lipase 76 U/L (73-393) 04/27/21 15:55 Home Medications: Amlodipine [Norvasc*] 10 mg PO DAILY 04/14/18 Eszopiclone [Lunesta*] 3 mg PO BEDTIME 04/14/18 Tamsulosin [Flomax*] 0.4 mg PO DAILY 04/14/18 Aspirin [Aspirin EC 81 MG] 81 mg PO DAILY 11/06/18 Esomeprazole Mag Trihydrate [Nexium] 40 mg PO DAILY AT SUPPER 11/06/18 Apixaban [Eliquis *] 2.5 mg PO BID tablet 05/01/21 Docusate [Colace Cap*] 100 mg PO BID cap 05/01/21 Furosemide [Lasix] 40 mg PO DAILY #30 tab 05/01/21 carvediloL [Coreg*] 3.125 mg PO BID 6AM 6PM tab 05/01/21 lisinopriL [Prinivil*] 5 mg PO DAILY tab 05/01/21 New Medications: Furosemide [Lasix] 40 mg PO DAILY #30 tab Diet: AHA Activity: Fall precautions Followup: JESSICA TATE [Primary Care Provider] - 1-2 Weeks
[2021-05-01 16:47] VITALS: BP 155/72; TEMP 98.3
== END 2021-05-01 17:52 | disposition home or self-care (01) | DRG 280 ==
LOC: ER 15:22 → ERHOLD 18:28 → 2ND 21:01
PROVIDERS: ADMIT Hospitalist; ATTEND Internal Medicine
DX: I11.0 Hypertensive heart disease with heart failure (principal); I50.33 Acute on chronic diastolic (congestive) heart failure; I21.A1 Myocardial infarction type 2; J96.01 Acute respiratory failure with hypoxia; K21.9 Gastro-esophageal reflux disease without esophagitis; I25.10 Atherosclerotic heart disease of native coronary artery without angina pectoris; I25.2 Old myocardial infarction; Z86.718 Personal history of other venous thrombosis and embolism; Z85.46 Personal history of malignant neoplasm of prostate; Z88.8 Allergy status to other drugs, medicaments and biological substances; Z79.01 Long term (current) use of anticoagulants; Z79.899 Other long term (current) drug therapy; Z95.2 Presence of prosthetic heart valve; Z87.01 Personal history of pneumonia (recurrent); Z95.5 Presence of coronary angioplasty implant and graft; Z86.73 Personal history of transient ischemic attack (TIA), and cerebral infarction without residual deficits; Z90.49 Acquired absence of other specified parts of digestive tract; Z95.1 Presence of aortocoronary bypass graft; Z79.82 Long term (current) use of aspirin; Z87.891 Personal history of nicotine dependence; Z20.822 Contact with and (suspected) exposure to COVID-19
CPT/HCPCS: 36415; 71045; 80048; 80053; 80061; 80069; 80076; 81003; 82550; 82553; 83690; 83735; 83880; 84145; 84439; 84443; 84484; 85025; 85027; 85610; 85730; 87040; 87205; 93005; 93306; 94640; 96365; 96375; 99285; J0456; J1940; J2930; J3370; J7050; U0003

== ENCOUNTER 2021-06-17 12:06 | Emergency (ER) | payer OTHER, BC ==
--- OUTSIDE RECORDS SUMMARY | 2021-06-17 12:14 | XMS REPORT | Continuity of Care Document ---
:1930 Author Organization [facility] t Address [address] [place] [address] Dr. [address]. [address] [place] [address] Care Team Providers Name Role Phone Asked, No Pcp Primary Care Physician Unavailable FIFI Attending Clinician Unavailable ATTAR Attending Clinician Unavailable MELO Attending Clinician Unavailable HESHAM, Ivory Attending Clinician Unavailable Pob, Lab Main Attending Clinician Unavailable Anthony GARCIA, S Attending Clinician Sherrill CRUZ Attending Clinician Unavailable Doctor Unassigned, Name Attending Clinician Unavailable Singer AGUIRRE Attending Clinician May Peralta Attending Clinician Ivory Whaley Attending Clinician Ivory CARDONA Attending Clinician Unavailable SAINI Attending Clinician Unavailable SAINI Attending Clinician Unavailable FIFI Admitting Clinician Unavailable SAINI Admitting Clinician Unavailable Payers Payer Name Policy Type Policy Effective Date Expiration Date Sour ce Number BCBS FED SELECT [id number] 2015 00:00:00 MEDICARE PART A \T\ B [id number] 1996 00:00:00 MEDICAREMEDICARE PART [id number] 1996 Ms edith Dodson AND 00:00:00 [facility] [id number] 1996[place] [id number] 2015 [facility] PPO/FEDERAL EMPL 00:00:00 Hospital [id number] 2015- PresentPPO DEPT OF [id number] 2017 Method[facility] t AFFAIRSDEPT OF 00:00:00 [facility] [id number] 05/2017-PresentMilita ry [place] [employer] [id number] [address] [facility] Medicare A & B [id number] [address] 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 Added automatic ally from request for surgery [id number] Small Problem Active [facility] St. bowel [facility] - obstructio Patien t n s [facility] Nausea Problem Active [facility] Patient [facility] Hypomagnes Problem Active [facility]. emia [facility] Leukocytos Problem Active [facility] is [facility] Patient [facility] Hypertensi Problem Active [facility] t[facility] on [facility] History of Problem Active [facility] t. 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 pain [facility] No known No known Disease Unive rs active active ity of problems problems [facility] Allergies, Adverse Reactions, Alerts Allergy Allergy [...] ist. Iodine Allergy Active [facility] sub[facility]anc 00:00: Patient e 00 s [facility] [place] Doxazosi Allergy Active 2018-[address] [facility]anc 00:00: Patient e 00 [facility] [place] NO KNOWN Drug Active Univers ALLERGIE Class ity of S [facility] Family History Family Member Diagnosis Comments Start Date Stop Date Source Natural brother [facility] Natural father Heart disease [facility] Natural father Hypertension [facility] t [facility] Natural mother Alzheimer's disease [facility] Natural sister Other [facility] Social History Social Habit Start Date Stop Date Quantity Comments Source History of tobacco Smoker [facility] use Hospital Exposure to Not sure [facility] SARS-CoV-2 (event) [facility] Cigarettes smoked 2021-02-20 2021-02-20 [facility] current (pack per 00:00:00 00:00:00 Hospita l day) - Reported Cigarette 2021-02-20 2021-02-20 [facility] pack-years 00:00:00 00:00:00 Hospital Alcohol intake 2021-01-10 2021-01-10 Current University of 00:00:00 00:00:00 non-drinker of [facility] alcohol (finding) Branch Tobacco use and 2021-01-10 2021-01-10 Never used Universit y of exposure 00:00:00 00:00:00 [facility] Alcohol Comment 2017-12-10 2017-12-10 ocassional [facility] 00:00:00 00:00:00 Hospital Sex Assigned At [birth year] Universit [facility] of 00:00:00 00:00:00 [facility] Smoking Status Start Date Stop Date Source Former smoker 2021-02-20 00:00:00 2021-02-20 00:00:00 [facility] Never smoker [facility] hospital Medications Ordered Filled Start Stop Current Ordering Indication Dosage Frequency Signature Comments Components Source Medication Medication Date Date Medication? Clinician (SIG) Name Name latonia 2020- No 31963Q Q7D Take 1 M ethodi rol 02-[address] (VITAMIN 00:00: 04:59 (50,000 Hospi ta D2) 50,000 00 :00 Units l unit total) by capsule mouth once a week for 30 days. ascorbic 2020- No 500mg QD Take 1 Metho di acid, 02-[address] vitamin C, 00:00: 04:59 (500 mg Hos peter (VITAMIN C) 00 :00 total) by l 500 MG mouth tablet daily for 30 days. vitamin E 2020- No 400U QD Take 1 Metho di 400 [...] Q.5D Take 10 mg M ethodi (PRINIVIL) 02-[address] 10 mg 18:24: (two) Hospita tablet 21 times a l day. ipratropium 0 Yes 1{spray 1 spray [facility] (ATROVENT) 02-23 } into each st 21 mcg 18:24: nostril as Hospi ta (0.03 %) 21 needed for l nasal spray rhinitis. sucralfate Yes 1g Q.25D Take 1 g Me thodi (CARAFATE) 02-[address] 1 gram 18:24: (four) Hospita tablet 21 times a l day. Patient takes differentl y: 1g by mouth as needed albuterol 2020- No 2{puff} Q.25D Inhale 2 [facility] (PROAIR 02-[address] HFA) 90 00:00: 04:59 every 4 Hospit a mcg/actuati 00 :00 (four) l on inhaler hours while awake for 30 days. famotidine 2020- No 20mg Q.5D Take 1 Meth marcella (PEPCID) 20 02-23 tablet (20 s t MG tablet 00:00: 04:59 mg total) Ho spita 00 :00 by mouth 2 l (two) times a day for 30 days. dexamethaso 2020- No 6mg QD Take 1 Met hodi ne 02-23 tablet (6 st (DECADRON) 00:00: 04:59 mg total) H ospita 6 MG tablet 00 :00 by mouth l daily with breakfast for 7 days. azithromyci 2020- No 500mg QD Take 2 Me thodi n [...] QD Take 1 Met hodi seed, with 8-24 08-24 } Scoop by st dextrose, 13:06: 00:00 mouth Hospit a (FIBER 33 :00 nightly as l ORAL) needed. clonIDINE 2020- No .1mg Q.5D Take 0.1 Met hodi (CATAPRES) 8-24 08-[address] 0.1 MG 13:05: 00:00 mouth 2 Hospita tablet 55 :00 (two) l times a day. pantoprazol 2020- No 40mg 40 mg, Uni vers e 01-16-20 Oral, ONCE ity of (PROTONIX) 08:30: 07:18 [place], 1 [place] tablet 00 :00 dose, Tue Medic al 40 mg 01/16/21 at Branch 0330, ISHA maalox:diph 2020- No 15mL 15 mL, Uni vers enhydrAMINE 01-16-20 Oral, ity of :lidocaine2 08:15: 07:12 [place]CE[place] 1 [place] %viscous 00 :00 dose, Tue Medica l 1:1:1: 01/16/21 at [place] suspension 0315, (COMPOUNDED Routine ) cloNIDine 2020- No .1mg 0.1 mg, Univ ers (CATAPRES) 01-16 07-20 Oral, ity of tablet 0.1 07:15: 06:15 ONCE, 1 [place] as mg 00 :00 dose, [facility] 01/16/21 at Branch 0215, STAT cloNIDine 2020- No .1mg 0.1 mg, Univ ers (CATAPRES) 01-16 07-20 Oral, ity of tablet 0.1 05:45: 04:45 ONCE, 1 [place] as mg 00 :00 dose, [facility] 01/16/21 at Branch 0045, STAT amLODIPine Yes 10mg Take 10 mg U nivers 10 mg 7-02 by mouth ity of tablet 18:08: daily. [address] aspirin 325 2020-0 Yes 325mg Take 325 U nivers mg tablet 7-02 mg by ity of 18:08: mouth [place] 23 daily. Medical Branch valsartan-h Yes 1{tbl} Take 1 Un alma ydrochlorot 7-02 tablet by ity of hiazide 18:08: mouth [place] 160-12.5 mg 23 daily. Medica l per tablet Branch eszopiclone Yes 3mg Take 3 mg U nivers 3 mg tablet 7-02 by mouth ity of 18:08: at [place] 23 bedtime. Medical Branch cloNIDine Yes .1mg Take 0.1 Univ ers 0.1 mg 7-02 mg by ity of tablet 18:08: mouth 3 [place] 23 (three) Medical times Branch daily. apixaban Yes 2.5mg Take 2.5 Univ ers (ELIQUIS) 7-02 mg by ity of 2.5 mg 18:08: mouth 2 [place] [facility] 23 (two) Medical times Branch daily. omeprazole Yes 40mg Take 40 mg U nivers 40 mg 7-02 by mouth ity of capsule 18:08: daily. [place] [address] Medical Branch lisinopriL Yes 5mg Take 5 mg Un alma 5 mg tablet 7-02 by mouth ity of 18:08: daily. [place] [address] Medical Branch finasteride Yes 5mg Take 5 mg U nivers 5 mg tablet 7-02 by mouth ity of 18:08: daily. [place] [address] Medical Branch amLODIPine Yes 10mg Take 10 mg U nivers 10 mg 7-02 by mouth ity of tablet 18:08: daily. [place] [address] Medical Branch aspirin 325 Yes 325mg Take 325 U nivers mg tablet 7-02 mg by ity of 18:08: mouth [place] 23 daily. Medical Branch valsartan-h Yes 1{tbl} Take 1 Un alma ydrochlorot 7-02 tablet by ity of hiazide 18:08: mouth [place] 160-12.5 mg 23 daily. Medica l per tablet Branch eszopiclone Yes 3mg Take 3 mg U nivers 3 mg tablet 7-02 by mouth ity of 18:08: at [place] 23 bedtime. Medical Branch cloNIDine Yes .1mg Take 0.1 Univ ers 0.1 mg 7-02 mg by ity of tablet 18:08: mouth 3 [place] 23 (three) Medical times Branch daily. apixaban Yes 2.5mg Take 2.5 Univ ers (ELIQUIS) 7-02 mg by ity of 2.5 mg 18:08: mouth 2 [place] [facility] 23 (two) Medical times Branch daily. omeprazole Yes 40mg Take 40 mg U nivers 40 mg 7-02 by mouth ity of capsule 18:08: daily. [place] [address] Medical Branch lisinopriL 0 Yes 5mg Take 5 mg Un alma 5 mg tablet 7-02 by mouth ity of 18:08: daily. [place] [address] Medical Branch finasteride 0 Yes 5mg Take 5 mg U nivers 5 mg tablet 7-02 by mouth ity of 18:08: daily. [place] [address] Medical Branch amLODIPine Yes 10mg Take 10 mg U nivers 10 mg 7-02 by mouth ity of tablet 18:08: daily. [place] [address] Medical Branch aspirin 325 0 Yes 325mg Take 325 U nivers mg tablet 7-02 mg by ity of 18:08: mouth [place] 23 daily. Medical Branch valsartan-h Yes 1{tbl} Take 1 Un alma ydrochlorot 7-02 tablet by ity of hiazide 18:08: mouth [place] 160-12.5 mg 23 daily. Medica l per tablet Branch eszopiclone Yes 3mg Take 3 mg U nivers 3 mg tablet 7-02 by mouth ity of 18:08: at [place] 23 bedtime. Medical Branch cloNIDine 0 Yes .1mg Take 0.1 Univ ers 0.1 mg 7-02 mg by ity of tablet 18:08: mouth 3 [place] 23 (three) Medical times Branch daily. apixaban 0 Yes 2.5mg Take 2.5 Univ ers (ELIQUIS) 7-02 mg by ity of 2.5 mg 18:08: mouth 2 [place] [facility] 23 (two) Medical times Branch daily. omeprazole Yes 40mg Take 40 mg U nivers 40 mg 7-02 by mouth ity of capsule 18:08: daily. [place] [address] Medical Branch lisinopriL 0 Yes 5mg Take 5 mg Un alma 5 mg tablet 7-02 by mouth ity of 18:08: daily. [place] [address] Medical Branch finasteride 0 Yes 5mg Take 5 mg U nivers 5 mg tablet 7-02 by mouth ity of 18:08: daily. [place] [address] Medical Branch amLODIPine Yes 10mg Take 10 mg U nivers 10 mg 7-02 by mouth ity of tablet 18:08: daily. [place] [address] Medical Branch aspirin 325 0 Yes 325mg Take 325 U nivers mg tablet 7-02 mg by ity of 18:08: mouth [place] 23 daily. Medical Branch valsartan-h Yes 1{tbl} Take 1 Un alma ydrochlorot 7-02 tablet by ity of hiazide 18:08: mouth [place] 160-12.5 mg 23 daily. Medica l per tablet Branch eszopiclone Yes 3mg Take 3 mg U nivers 3 mg tablet 7-02 by mouth ity of 18:08: at [place] [address] bedtime. Medical Branch cloNIDine 0 Yes .1mg Take 0.1 Univ ers 0.1 mg 7-02 mg by ity of tablet 18:08: mouth 3 [place] 23 (three) Medical times Branch daily. apixaban Yes 2.5mg Take 2.5 Univ ers (ELIQUIS) 7-02 mg by ity of 2.5 mg 18:08: mouth 2 [facility] 23 (two) Medical times Branch daily. omeprazole Yes 40mg Take 40 mg U nivers 40 mg 7-02 by mouth ity of capsule 18:08: daily. [place] [address] Medical Branch lisinopriL 0 Yes 5mg Take 5 mg Un alma 5 mg tablet 7-02 by mouth ity of 18:08: daily. [place] [address] Medical Branch finasteride 0 Yes 5mg Take 5 mg U nivers 5 mg tablet 7-02 by mouth ity of 18:08: daily. [place] [address] Medical Branch amLODIPine Yes 10mg Take 10 mg U nivers 10 mg 7-02 by mouth ity of tablet 18:08: daily. [address] Branch aspirin 325 0 Yes 325mg Take 325 U nivers mg tablet 7-02 mg by ity of 18:08: mouth [place] 23 daily. Medical Branch valsartan-h Yes 1{tbl} Take 1 Un alma ydrochlorot 7-02 tablet by ity of hiazide 18:08: mouth [place] 160-12.5 mg 23 daily. Medica l per tablet Branch eszopiclone Yes 3mg Take 3 mg U nivers 3 mg tablet 7-02 by mouth ity of 18:08: at [place] 23 bedtime. Medical Branch cloNIDine Yes .1mg Take 0.1 Univ ers 0.1 mg 7-02 mg by ity of tablet 18:08: mouth 3 [place] 23 (three) Medical times Branch daily. apixaban Yes 2.5mg Take 2.5 Univ ers (ELIQUIS) 7-02 mg by ity of 2.5 mg 18:08: mouth 2 [place] [facility] 23 (two) Medical times Branch daily. omeprazole Yes 40mg Take 40 mg U nivers 40 mg 7-02 by mouth ity of capsule 18:08: daily. [place] [address] Medical Branch lisinopriL Yes 5mg Take 5 mg Un alma 5 mg tablet 7-02 by mouth ity of 18:08: daily. [place] [address] Medical Branch finasteride Yes 5mg Take 5 mg U nivers 5 mg tablet 7-02 by mouth ity of 18:08: daily. [place] [address] Medical Branch amLODIPine Yes 10mg Take 10 mg U nivers 10 mg 7-02 by mouth ity of tablet 18:08: daily. [place] [address] Medical Branch aspirin 325 Yes 325mg Take 325 U nivers mg tablet 7-02 mg by ity of 18:08: mouth [place] 23 daily. Medical Branch valsartan-h Yes 1{tbl} Take 1 Un alma ydrochlorot 7-02 tablet by ity of hiazide 18:08: mouth [place] 160-12.5 mg 23 daily. Medica l per tablet Branch eszopiclone Yes 3mg Take 3 mg U nivers 3 mg tablet 7-02 by mouth ity of 18:08: at [place] 23 bedtime. Medical Branch cloNIDine Yes .1mg Take 0.1 Univ ers 0.1 mg 7-02 mg by ity of tablet 18:08: mouth 3 [place] 23 (three) Medical times Branch daily. apixaban Yes 2.5mg Take 2.5 Univ ers (ELIQUIS) 7-02 mg by ity of 2.5 mg 18:08: mouth 2 [place] [facility] 23 (two) Medical times Branch daily. omeprazole Yes 40mg Take 40 mg U nivers 40 mg 7-02 by mouth ity of capsule 18:08: daily. [place] [address] Medical Branch lisinopriL 0 Yes 5mg Take 5 mg Un alma 5 mg tablet 7-02 by mouth ity of 18:08: daily. [place] [address] Medical Branch finasteride 0 Yes 5mg Take 5 mg U nivers 5 mg tablet 7-02 by mouth ity of 18:08: daily. [place] [address] Medical Branch amLODIPine Yes 10mg Take 10 mg U nivers 10 mg 7-02 by mouth ity of tablet 18:08: daily. [place] [address] Medical Branch aspirin 325 0 Yes 325mg Take 325 U nivers mg tablet 7-02 mg by ity of 18:08: mouth [place] 23 daily. Medical Branch valsartan-h Yes 1{tbl} Take 1 Un alma ydrochlorot 7-02 tablet by ity of hiazide 18:08: mouth [place] 160-12.5 mg 23 daily. Medica l per tablet Branch eszopiclone Yes 3mg Take 3 mg U nivers 3 mg tablet 7-02 by mouth ity of 18:08: at [place] 23 bedtime. Medical Branch cloNIDine 0 Yes .1mg Take 0.1 Univ ers 0.1 mg 7-02 mg by ity of tablet 18:08: mouth 3 [place] 23 (three) Medical times Branch daily. apixaban 0 Yes 2.5mg Take 2.5 Univ ers (ELIQUIS) 7-02 mg by ity of 2.5 mg 18:08: mouth 2 [place] [facility] 23 (two) Medical times Branch daily. omeprazole Yes 40mg Take 40 mg U nivers 40 mg 7-02 by mouth ity of capsule 18:08: daily. [place] [address] Medical Branch lisinopriL 0 Yes 5mg Take 5 mg Un alma 5 mg tablet 7-02 by mouth ity of 18:08: daily. [place] [address] Medical Branch finasteride Yes 5mg Take 5 mg U nivers 5 mg tablet 7-02 by mouth ity of 18:08: daily. [place] [address] Medical Branch amLODIPine Yes 10mg Take 10 mg U nivers 10 mg 7-02 by mouth ity of tablet 18:08: daily. [place] [address] Medical Branch aspirin 325 0 Yes 325mg Take 325 U nivers mg tablet 7-02 mg by ity of 18:08: mouth [place] 23 daily. Medical Branch valsartan-h Yes 1{tbl} Take 1 Un alma ydrochlorot 7-02 tablet by ity of hiazide 18:08: mouth [place] 160-12.5 mg 23 daily. Medica l per tablet Branch eszopiclone Yes 3mg Take 3 mg U nivers 3 mg tablet 7-02 by mouth ity of 18:08: at [place] [address] bedtime. Medical Branch cloNIDine 0 Yes .1mg Take 0.1 Univ ers 0.1 mg 7-02 mg by ity of tablet 18:08: mouth 3 [place] 23 (three) Medical times Branch daily. apixaban Yes 2.5mg Take 2.5 Univ ers (ELIQUIS) 7-02 mg by ity of 2.5 mg 18:08: mouth 2 [facility] 23 (two) Medical times Branch daily. omeprazole Yes 40mg Take 40 mg U nivers 40 mg 7-02 by mouth ity of capsule 18:08: daily. [place] [address] Medical Branch lisinopriL Yes 5mg Take 5 mg Un alma 5 mg tablet 7-02 by mouth ity of 18:08: daily. [place] [address] Medical Branch finasteride 0 Yes 5mg Take 5 mg U nivers 5 mg tablet 7-02 by mouth ity of 18:08: daily. [place] [address] Medical Branch Dutasteride Yes Take by Un amla -Tamsulosin 7-02 mouth. ity of 0.5-0.4 mg 18:08: [place] [facility] 22 Medical Branch Dutasteride Yes Take by Un alma -Tamsulosin 7-02 mouth. ity of 0.5-0.4 mg 18:08: [address] Branch Dutasteride Yes Take by Un alma -Tamsulosin 12-29 mouth. ity of 0.5-0.4 mg 18:08: [address] Branch Dutasteride Yes Take by Un alma -Tamsulosin 12-29 mouth. ity of 0.5-0.4 mg 18:08: [address] Branch Dutasteride Yes Take by Un alma -Tamsulosin 12-29 mouth. ity of 0.5-0.4 mg 18:08: [address] Dutasteride Yes Take by Un alma -Tamsulosin 12-29 mouth. ity of 0.5-0.4 mg 18:08: [address] Branch Dutasteride Yes Take by Un alma -Tamsulosin 12-29 mouth. ity of 0.5-0.4 mg 18:08: [address] Branch Dutasteride Yes Take by Un alma -Tamsulosin 12-29 mouth. ity of 0.5-0.4 mg 18:08: [address] tamsulosin 2020- No .4mg QD Take 0.4 Me thodi (FLOMAX) 12-[address] 0.4 mg 20:23: 00:00 mouth Hospita capsule 43 :00 daily. l tamsulosin 2020- No .4mg Q.5D Take 1 Meth marcella (FLOMAX) 12-[address] 0.4 mg 00:00: 04:59 (0.4 mg Hospita capsule 00 :00 total) by l mouth 2 (two) times a day for 30 days. levoFLOXaci 2020- No 500mg QD Take 1 Me thodi n 12-04-[address] (Levaquin) 00:00: 04:59 (500 mg Hos peter 500 MG 00 :00 total) by l tablet mouth daily for 4 days. traMADoL 2020- No [id number] 50mg Q6H Take 50 mg M ethodi (ULTRAM) 50 6-11-[address] mg tablet 01:42: 00:00 every 6 Hosp haresh 31 :00 (six) l hours as needed for moderate pain .acute pain. aspirin No 81mg QD Take 1 [facility] (ECOTRIN) 01-15 tablet (81 st 81 MG 00:00: 00:00 mg total) Hospit a enteric 00 :00 by mouth l coated daily. tablet eszopiclone No 2mg QD Take 2 mg [facility] (LUNESTA) 2 08-[address] MG tablet 00:00: 00:00 nightly as H ospita 00 :00 needed for l sleep. omeprazole No 40mg QD Take 40 mg [facility] (PriLOSEC) 07-[address] 40 MG 00:00: 00:00 daily. Hospita capsule 00 :00 l amLODIPine No 5mg QD 5 mg every [facility] (NORVASC) 5 07-[address] mg tablet 00:00: 00:00 Hospita 00 :00 l amLODIPine Yes 10mg Take 10 mg U nivers 10 mg 7-19 by mouth ity of tablet 18:24: daily. [place] [address] Medical Branch aspirin 325 Yes 325mg Take 325 U nivers mg tablet 7-19 mg by ity of 18:24: mouth [place] 36 daily. Medical Branch valsartan-h Yes 1{tbl} Take 1 Un alma ydrochlorot 7-19 tablet by ity of hiazide 18:24: mouth [place] 160-12.5 mg 36 daily. Medica l per tablet Branch eszopiclone Yes 3mg Take 3 mg U nivers 3 mg tablet 7-19 by mouth ity of 18:24: at [place] 36 bedtime. Medical Branch amLODIPine Yes 10mg Take 10 mg U nivers 10 mg 7-19 by mouth ity of tablet 18:24: daily. [place] [address] Medical Branch aspirin 325 Yes 325mg Take 325 U nivers mg tablet 7-19 mg by ity of 18:24: mouth [place] 36 daily. Medical Branch valsartan-h Yes 1{tbl} Take 1 Un alma ydrochlorot 7-19 tablet by ity of hiazide 18:24: mouth [place] 160-12.5 mg 36 daily. Medica l per tablet Branch eszopiclone 2017-0 Yes 3mg Take 3 mg U nivers 3 mg tablet 7-19 by mouth ity of 18:24: at [place] 36 bedtime. Medical Branch Amlodipine Amlodipine Yes [address] Bes[facility] Aspirin Aspirin Yes Daily [facility] (Aspir 81) (Aspir 81) Tal es - 81 Mg 81 Mg Patient TABLET.DR SHIPLEY.DR lino [facility] Hydrochloro Hydrochloro Yes 12.[address] thiazide thiazide [facility] - (Hydrochlor (Hydrochlor P atient othiazide*) othiazide*) s 25 Mg 25 Mg Medical TABLET TABLET Center Tamsulosin Tamsulosin Yes .[address] Hcl Hcl [facility] - (Flomax*) (Flomax*) Patie nt 0.4 Mg CAP 0.4 Mg CAP [facility] Vital Signs Vital Name Observation Time Observation Value Comments Source Systolic blood 2021-01-16 07:00:00 187 mm[Hg] [facility] 2021-01-16 07:00:00 90 mm[Hg] [facility] Heart rate 2021-01-16 07:00:00 76 /min [facility] Respiratory rate 2021-01-16 07:00:00 20 /min [facility] Oxygen saturation in 2021-01-16 07:00:00 97 /min [facility] Arterial blood by [facility] Pulse oximetry [place] Body temperature 2021-01-16 04:24:00 37.06 Ayana [facility] Body weight 2021-01-16 04:24:00 58.968 kg [facility] BMI 2021-01-16 04:24:00 22.31 kg/m2 [facility] Systolic blood 2021-01-11 02:55:00 175 mm[Hg] [facility] blood 2021-01-11 02:55:00 85 mm[Hg] Unive [facility] Heart rate 2021-01-11 02:55:00 73 /min [facility] [place] [facility] Respiratory rate 2021-01-11 02:55:00 16 /min [facility] [place] [facility] Oxygen saturation in 2021-01-11 02:55:00 96 /min University of Arterial blood by [facility] Pulse oximetry Branch Body temperature 2021-01-10 23:48:00 37.22 Ayana [facility] [place] [facility] Body weight 2021-01-10 23:48:00 58.968 kg [facility] [place] [facility] BMI 2021-01-10 23:48:00 22.31 kg/m2 [facility] [place] [facility] Systolic blood 2020-12-29 18:08:00 132 mm[Hg] Univer sity of pressure [place] [facility] Diastolic blood 2020-12-29 18:08:00 65 mm[Hg] Unive rsity of pressure [place] [facility] Heart rate 2020-12-29 18:03:00 65 /min [facility] [place] [facility] Body temperature 2020-12-29 18:03:00 36.44 Ayana [facility] [place] [facility] Respiratory rate 2020-12-29 18:03:00 16 /min [facility] [place] [facility] Body height 2020-12-29 18:03:00 162.6 cm [facility] [place] [facility] Body weight 2020-12-29 18:03:00 59.013 kg [facility] [place] [facility] BMI 2020-12-29 18:03:00 22.33 kg/m2 [facility] [place] [facility] Oxygen saturation in 2020-12-29 18:03:00 98 /min University of Arterial blood by [facility] Pulse oximetry Branch Systolic blood 2020-12-29 18:08:00 132 mm[Hg] Univer sity of pressure [place] [facility] Diastolic blood 2020-12-29 18:08:00 65 mm[Hg] Unive rsity of pressure [place] [facility] Heart rate 2020-12-29 18:03:00 65 /min [facility] [place] [facility] Body temperature 2020-12-29 18:03:00 36.44 Ayana [facility] [place] [facility] Respiratory rate 2020-12-29 18:03:00 16 /min [facility] [place] [facility] Body height 2020-12-29 18:03:00 162.6 cm [facility] Body weight 2020-12-29 18:03:00 59.013 kg [facility] BMI 2020-12-29 18:03:00 22.33 kg/m2 [facility] Oxygen saturation in 2020-12-29 18:03:00 98 /min University Arterial blood by [facility] Pulse oximetry [place] Heart rate 2021-02-23 17:45:00 55 /min [facility] Respiratory rate 2021-02-23 17:45:00 20 /min [facility] Oxygen saturation in 2021-02-23 17:45:00 99 /min [facility] Arterial blood by Pulse oximetry Systolic blood 2021-02-23 16:34:54 158 mm[Hg] [facility] pressure Diastolic blood 2021-02-23 16:34:54 75 mm[Hg] [facility] pressure Body temperature 2021-02-23 16:34:[address] [facility] Body weight 2021-02-21 10:06:00 59.467 kg [facility] BMI 2021-02-21 10:06:00 22.50 kg/m2 [facility] Body height 2021-02-20 11:07:00 162.6 cm [facility] BP Diastolic 2020-09-28 12:46:00 76 mm[Hg] [facility] [place] [facility] 2020-09-28 12:46:00 149 mm[Hg] [facility] O[facility] by 2020-09-28 12:46:00 99 /min [facility] Pulse oximetry Patients [facility] Heart Rate 2020-09-28 12:46:00 85 /min [facility] Respiratory rate 2020-09-28 12:46:00 22 [...] BP Systolic 2020-09-28 08:42:00 141 mm[Hg] [facility] Oxygen saturation by 2020-09-28 08:42:00 96 /min [facility] Pulse [facility]xim[facility] Patients [facility] BP Diastolic 2020-09-28 08:36:00 60 mm[Hg] [facility] BP Systolic 2020-09-28 08:36:00 141 mm[Hg] [facility] Oxygen saturation by 2020-09-28 08:36:00 96 /min [facility] Pulse [facility] Patients [facility] Heart Rate 2020-09-28 08:36:00 81 /min [facility] Respiratory rate 2020-09-28 08:36:00 24 /min [facility] Body Temperature 2020-09-28 08:36:00 97.4 [degF] [facility] Oxygen saturation by 2020-09-28 08:17:00 96 /min [facility] Pulse [facility] Patients [facility] Heart Rate 2020-09-28 08:17:00 80 /min [facility] Respiratory rate 2020-09-28 08:17:00 20 /min [facility] Oxygen saturation by 2020-09-28 07:49:00 96 /min [facility]ulse [facility] Patients [facility] Heart Rate 2020-09-28 07:49:00 80 /min [facility] Heart Rate 2020-09-28 04:00:00 85 /min [facility] Respiratory rate 2020-09-28 04:00:00 20 /min [facility] Body Temperature 2020-09-28 04:00:00 97.7 [degF] [facility] Oxygen saturation by 2020-09-28 02:48:00 98 /min [facility] Pulse [facility] Patients [facility] Heart Rate 2020-09-28 02:48:00 85 /min [facility] Respiratory rate 2020-09-28 02:48:00 18 /min [facility] Oxygen saturation by 2020-09-28 02:40:00 95 /min [facility]ulse [facility] Patients [facility] Heart Rate 2020-09-28 02:40:00 87 /min [facility] Heart Rate 2020-09-28 00:00:00 92 /min [facility] Heart Rate 2020-09-27 20:00:00 99 /min [facility] Respiratory rate 2020-09-27 20:00:00 18 /min [facility] Body Temperature 2020-09-27 20:00:00 98.1 [degF] [facility] Oxygen saturation by 2020-09-27 19:53:00 100 /min [facility] Pulse [facility] Patients [facility] Heart Rate 2020-09-27 19:53:00 96 /min [facility] Respiratory rate 2020-09-27 19:53:00 18 /min [facility] Oxygen saturation by 2020-09-27 19:45:00 97 /min [facility] Pulse [facility] Patients [facility] Heart Rate 2020-09-27 19:45:00 99 /min [facility] Patients [facility] Heart Rate 2020-09-27 15:21:00 103 /min [facility] Respiratory rate 2020-09-27 15:21:00 20 /min [facility] Body Temperature 2020-09-27 15:21:00 98.5 [degF] [facility] Oxygen saturation by 2020-09-27 14:45:00 99 /min [facility] Pulse [facility] Patients [facility] Heart Rate 2020-09-27 14:45:00 103 /min [facility] Respiratory rate 2020-09-27 14:45:00 20 /min [facility] Oxygen saturation by 2020-09-27 14:30:00 95 /min [facility] Pulse [facility] Patients [facility] Heart Rate 2020-09-27 14:30:00 103 /min [facility] Respiratory rate 2020-09-27 14:30:00 20 /min [facility] BP Diastolic 2020-09-27 11:13:00 56 mm[Hg] [facility] BP Systolic 2020-09-27 11:13:00 123 mm[Hg] [facility] Oxygen saturation by 2020-09-27 11:13:00 99 /min [facility] Pulse [facility] Patients [facility] Heart Rate 2020-09-27 11:13:00 88 /min [facility] Respiratory rate 2020-09-27 11:13:00 16 /min [facility] Body Temperature 2020-09-27 11:13:00 98.4 [degF] [facility] BP Diastolic 2020-09-27 08:15:00 51 mm[Hg] [facility] BP Systolic 2020-09-27 08:15:00 116 mm[Hg] [facility] Oxygen saturation by 2020-09-27 08:15:00 95 /min [facility]ulse [facility] Patients [facility] Heart Rate 2020-09-27 08:15:00 105 /min [facility] Heart Rate 2020-09-27 07:58:00 105 /min [facility] Respiratory rate 2020-09-27 07:58:00 16 /min [facility] Body Temperature 2020-09-27 07:58:00 97.6 [degF] [facility] Oxygen saturation by 2020-09-27 07:15:00 99 /min [facility] Pulse [facility] Patients [facility] Heart Rate 2020-09-27 07:15:00 105 /min [facility] Respiratory rate 2020-09-27 07:15:00 16 /min [facility] Oxygen saturation by 2020-09-27 07:00:00 95 /min [facility] Pulse [facility] Patients [facility] Heart Rate 2020-09-27 07:00:00 105 /min [facility] Respiratory rate 2020-09-27 07:00:00 16 /min [facility] Oxygen saturation by 2020-09-27 00:05:00 100 /min [facility] Pulse [facility] Patients [facility] Heart Rate 2020-09-27 00:05:00 91 /min [facility] Respiratory rate 2020-09-27 00:05:00 20 /min [facility] Oxygen saturation by 2020-09-26 23:50:00 98 /min [facility] Pulse [facility] Patients [facility] Heart Rate 2020-09-26 23:50:00 89 /min [facility] Respiratory rate 2020-09-26 23:50:00 20 /min [facility] BP Diastolic 2020-09-26 20:36:00 69 mm[Hg] [facility] BP Systolic 2020-09-26 20:36:00 114 mm[Hg] [facility] Oxygen saturation by 2020-09-26 20:36:00 98 /min [facility] Pulse [facility] Patients [facility] Heart Rate 2020-09-26 20:36:00 84 /min [facility] rate 2020-09-26 20:36:00 18 /min [facility] Body Temperature 2020-09-26 20:36:00 98.1 [degF] [facility] BP Diastolic 2020-09-26 20:00:00 80 mm[Hg] [facility] BP Systolic 2020-09-26 20:00:00 142 mm[Hg] [facility] Oxygen saturation by 2020-09-26 20:00:00 100 /min [facility] Pulse [facility] Patients [facility] Heart Rate 2020-09-26 20:00:00 89 /min [facility] Respiratory rate 2020-09-26 20:00:00 21 /min [facility] Body Temperature 2020-09-26 20:00:00 98.3 [degF] [facility] BP Diastolic 2020-09-26 16:11:00 75 mm[Hg] [facility] BP Systolic 2020-09-26 16:11:00 151 mm[Hg] [facility] Oxygen saturation by 2020-09-26 16:11:00 100 /min [facility] Pulse [facility] Patients [facility] Heart Rate 2020-09-26 16:11:00 89 /min [facility] Respiratory rate 2020-09-26 16:11:00 21 /min [facility] Body Temperature 2020-09-26 16:11:00 98.3 [degF] [facility] Oxygen saturation by 2020-09-26 13:10:00 96 /min [facility] Pulse [facility] Patients [facility] Heart Rate 2020-09-26 13:10:00 94 /min [facility] Respiratory rate 2020-09-26 13:10:00 16 /min [facility] Oxygen saturation by 2020-09-26 12:55:00 96 /min [facility] Pulse [facility]xim[facility] Patients [facility] Heart Rate 2020-09-26 12:55:00 94 /min [facility] Respiratory rate 2020-09-26 12:55:00 16 /min [facility] Oxygen saturation by 2020-09-26 12:35:00 96 /min [facility] Pulse [facility]xim[facility] Patients [facility] Heart Rate 2020-09-26 12:35:00 94 /min [facility] Heart Rate 2020-09-26 12:12:00 100 /min [facility] Patients [facility] Heart Rate 2020-09-26 09:22:00 99 /min [facility] Res[facility] rate 2020-09-26 09:22:00 26 /min [facility] Body Temperature 2020-09-26 09:22:00 97.4 [degF] [facility] Oxygen saturation by 2020-09-26 08:50:00 98 /min [facility] Pulse [facility]etry Patients [facility] Heart Rate 2020-09-26 08:50:00 99 /min [facility] Respiratory rate 2020-09-26 08:50:00 26 /min [facility] Oxygen saturation by 2020-09-26 08:35:00 98 /min [facility] Pulse [facility]xim[facility] Patients [facility] Heart Rate 2020-09-26 08:35:00 99 /min [facility] Respiratory rate 2020-09-26 08:35:00 26 /min [facility] BP Diastolic 2020-09-26 07:58:00 59 mm[Hg] [facility] BP Systolic 2020-09-26 07:58:00 113 mm[Hg] [facility] Oxygen saturation by 2020-09-26 07:58:00 98 /min [facility] Pulse [facility] Patients [facility] Heart Rate 2020-09-26 07:58:00 99 /min [facility] Respiratory rate 2020-09-26 07:58:00 26 /min [facility] Body Temperature 2020-09-26 07:58:00 97.4 [degF] [facility] BP Diastolic 2020-09-26 04:00:00 40 mm[Hg] [facility] BP Systolic 2020-09-26 04:00:00 112 mm[Hg] [facility] Oxygen saturation by 2020-09-26 04:00:00 98 /min [facility] Pulse [facility] Patients [facility] Heart Rate 2020-09-26 04:00:00 99 /min [facility] Respiratory rate 2020-09-26 04:00:00 20 /min [facility] Body Temperature 2020-09-26 04:00:00 97.0 [degF] [facility] Oxygen saturation by 2020-09-25 20:08:00 100 /min [facility] Pulse [facility]xim[facility] Patients [facility] Heart Rate 2020-09-25 20:08:00 97 /min [facility] Respiratory rate 2020-09-25 20:08:00 20 /min [facility] BP Diastolic 2020-09-25 20:00:00 61 mm[Hg] [facility] BP Systolic 2020-09-25 20:00:00 124 mm[Hg] [facility] Oxygen saturation by 2020-09-25 20:00:00 97 /min [facility] Pulse [facility] Patients [facility] Heart Rate 2020-09-25 20:00:00 99 /min [facility] Respiratory rate 2020-09-25 20:00:00 18 /min [facility] Body Temperature 2020-09-25 20:00:00 97.9 [degF] [facility] Oxygen saturation by 2020-09-25 19:53:00 97 /min [facility] Pulse [facility]xim[facility] Patients [facility] Heart Rate 2020-09-25 19:53:00 94 /min [facility] Patients [facility] Heart Rate 2020-09-25 15:48:00 99 /min [facility] Respiratory rate 2020-09-25 15:48:00 18 /min [facility] Body Temperature 2020-09-25 15:48:00 98.0 [degF] [facility] Oxygen saturation by 2020-09-25 12:40:00 97 /min [facility] Pulse [facility]ximetry Patients [facility] Heart Rate 2020-09-25 12:40:00 109 /min [facility] Respiratory rate 2020-09-25 12:40:00 16 /min [facility] Oxygen saturation by 2020-09-25 12:39:00 97 /min [facility] Pulse [facility]xim[facility] Patients [facility] Heart Rate 2020-09-25 12:39:00 98 /min [facility] Heart Rate 2020-09-25 11:14:00 98 /min [facility] Heart Rate 2020-09-25 09:18:00 96 /min [facility] Respiratory rate 2020-09-25 09:18:00 18 /min [facility] Body Temperature 2020-09-25 09:18:00 97.9 [degF] [facility] Oxygen saturation by 2020-09-25 08:35:00 98 /min [facility] Pulse [facility] Patients [facility] Heart Rate 2020-09-25 08:35:00 96 /min [facility] Respiratory rate 2020-09-25 08:35:00 18 /min [facility] by 2020-09-25 08:20:00 98 /min [facility] Pulse [facility] Patients [facility] Heart Rate 2020-09-25 08:20:00 96 /min [facility] Respiratory rate 2020-09-25 08:20:00 18 /min [facility] BP Diastolic 2020-09-25 07:33:00 62 mm[Hg] [facility] BP Systolic 2020-09-25 07:33:00 135 mm[Hg] [facility] Oxygen saturation by 2020-09-25 07:33:00 98 /min [facility] Pulse [facility]xim[facility] Patients [facility] Heart Rate 2020-09-25 07:33:00 96 /min [facility] [...] [facility] Heart Rate 2020-09-25 04:00:00 83 /min [facility] Respiratory rate 2020-09-25 04:00:00 18 /min [facility] Body Temperature 2020-09-25 04:00:00 97.7 [degF] [facility] BP Diastolic 2020-09-24 23:59:00 94 mm[Hg] [facility] BP Systolic 2020-09-24 23:59:00 151 mm[Hg] [facility] Oxygen saturation by 2020-09-24 23:59:00 99 /min [facility] Pulse [facility]ximetry Patients [facility] Heart Rate 2020-09-24 23:59:00 97 /min [facility] Res[facility] rate 2020-09-24 23:59:00 17 /min [...] [facility] Patients [facility] Heart Rate 2020-09-24 20:32:00 112 /min [facility] Respiratory rate 2020-09-24 20:32:00 18 /min [facility] Body Temperature 2020-09-24 20:32:00 97.7 [degF] [facility] Oxygen saturation by 2020-09-24 20:25:00 98 /min [facility] Pulse [facility] Patients [facility] Heart Rate 2020-09-24 20:25:00 100 /min [facility] Respiratory rate 2020-09-24 20:25:00 20 /min [facility] Oxygen saturation by 2020-09-24 20:10:00 95 /min [facility] Pulse [facility]xim[facility] Patients [facility] Heart Rate 2020-09-24 20:10:00 102 /min [facility] Heart Rate 2020-09-24 20:00:00 112 /min [facility] [...] [facility] Patients [facility] Heart Rate 2020-09-24 17:13:00 94 /min [facility] Respiratory rate 2020-09-24 17:13:00 16 /min [facility] Body Temperature 2020-09-24 17:13:00 97.7 [degF] [facility] Oxygen saturation by 2020-09-24 14:00:00 100 /min [facility] Pulse [facility]ximetry Patients [facility] Heart Rate 2020-09-24 14:00:00 94 /min [facility] Respiratory rate 2020-09-24 14:00:00 16 /min [facility] Oxygen [facility] by 2020-09-24 13:45:00 100 /min [facility] Pulse [facility]xim[facility] Patients [facility] Heart Rate 2020-09-24 13:45:00 94 /min [facility] Res[facility] rate 2020-09-24 13:45:00 16 /min [facility] BP Diastolic 2020-09-24 08:41:00 59 mm[Hg] [facility] BP Systolic 2020-09-24 08:41:00 142 mm[Hg] [facility] Oxygen saturation by 2020-09-24 08:41:00 100 /min [facility] Pulse [facility] Patients [facility] Heart Rate 2020-09-24 08:41:00 94 /min [facility] Respiratory rate 2020-09-24 08:41:00 16 /min [facility] Body Temperature 2020-09-24 08:41:00 97.7 [degF] [facility] BP Diastolic 2020-09-24 08:30:00 59 mm[Hg] [facility] BP Systolic 2020-09-24 08:30:00 142 mm[Hg] [facility] Oxygen saturation by 2020-09-24 08:30:00 95 /min [facility] Pulse [facility] Patients [facility] Heart Rate 2020-09-24 08:30:00 94 /min [facility] Respiratory rate 2020-09-24 08:30:00 18 /min [facility] Body Temperature 2020-09-24 08:30:00 98.6 [degF] [facility] Oxygen saturation by 2020-09-24 06:50:00 100 /min [facility] Pulse [facility] Patients [facility] Heart Rate 2020-09-24 06:50:00 91 /min [facility] Respiratory rate 2020-09-24 06:50:00 16 /min [facility] Oxygen saturation by 2020-09-24 06:35:00 97 /min [facility]ulse [facility] Patients [facility] Heart Rate 2020-09-24 06:35:00 87 /min [facility] Heart Rate 2020-09-24 04:00:00 88 /min [facility] Respiratory rate 2020-09-24 04:00:00 18 /min [facility] Body Temperature 2020-09-24 04:00:00 97.7 [degF] [facility] Oxygen saturation by 2020-09-24 01:18:00 97 /min [facility]ulse [facility] Heart Rate 2020-09-24 01:18:00 91 /min [facility] Respiratory rate 2020-09-24 01:18:00 18 /min [facility] Oxygen saturation by 2020-09-24 01:10:00 94 /min [facility] Heart Rate 2020-09-24 01:10:00 89 /min [facility] Heart Rate 2020-09-24 00:00:00 92 /min [facility] Heart Rate 2020-09-23 21:42:00 105 /min [facility] Heart Rate 2020-09-23 20:00:00 105 /min [facility] Respiratory rate 2020-09-23 20:00:00 18 /min [facility] Body Temperature 2020-09-23 20:00:00 97.9 [degF] [facility] Oxygen saturation by 2020-09-23 19:18:00 99 /min [facility] Pulse [facility] Patients [facility] Heart Rate 2020-09-23 19:18:00 101 /min [facility] Respiratory rate 2020-09-23 19:18:00 22 /min [facility] Oxygen saturation by 2020-09-23 19:10:00 94 /min [facility] Pulse [facility] Heart Rate 2020-09-23 19:10:00 98 /min [facility] Respiratory rate 2020-09-23 19:10:00 20 /min [facility] BP Diastolic 2020-09-23 16:11:00 64 mm[Hg] [facility] BP Systolic 2020-09-23 16:11:00 135 mm[Hg] [facility] Oxygen saturation by 2020-09-23 16:11:00 97 /min [facility] Pulse [facility]xim[facility] Patients [facility] Heart Rate 2020-09-23 16:11:00 96 /min [facility] Respiratory rate 2020-09-23 16:11:00 18 /min [facility] Body Temperature 2020-09-23 16:11:00 97.8 [degF] [facility] Oxygen saturation by 2020-09-23 14:15:00 98 /min [facility] Pulse [facility] Patients [facility] Heart Rate 2020-09-23 14:15:00 83 /min [facility] Respiratory rate 2020-09-23 14:15:00 20 /min [facility] by 2020-09-23 14:00:00 98 /min [facility] Pulse [facility] Patients [facility] Heart Rate 2020-09-23 14:00:00 83 /min [facility] Res[facility] rate 2020-09-23 14:00:00 20 /min [facility] BP Diastolic 2020-09-23 08:50:00 63 mm[Hg] [facility] BP Systolic 2020-09-23 08:50:00 142 mm[Hg] [facility] by 2020-09-23 08:50:00 98 /min [facility] Pulse [facility] Patients [facility] Heart Rate 2020-09-23 08:50:00 94 /min [facility] Res[facility] rate 2020-09-23 08:50:00 18 /min [facility] Body Temperature 2020-09-23 08:50:00 97.3 [degF] [facility] BP Diastolic 2020-09-23 08:39:00 63 mm[Hg] [facility] BP Systolic 2020-09-23 08:39:00 142 mm[Hg] [facility] by 2020-09-23 08:39:00 100 /min [facility] Pulse [facility] Patients [facility] Heart Rate 2020-09-23 08:39:00 94 /min [facility] Respiratory rate 2020-09-23 08:39:00 18 /min [facility] Body Temperature 2020-09-23 08:39:00 97.4 [degF] [facility] by 2020-09-23 06:45:00 100 /min [facility] Pulse [facility]xim[facility] Patients [facility] Heart Rate 2020-09-23 06:45:00 94 /min [facility] Respiratory rate 2020-09-23 06:45:00 18 /min [facility] Oxygen saturation by 2020-09-23 06:30:00 100 /min [facility] Pulse [facility] Heart Rate 2020-09-23 06:30:00 94 /min [facility] [facility] Respiratory rate 2020-09-23 06:30:00 18 /min [facility] BP Diastolic 2020-09-23 04:30:00 75 mm[Hg] [facility] BP Systolic 2020-09-23 04:30:00 168 mm[Hg] [facility] Oxygen saturation by 2020-09-23 04:30:00 98 /min [facility] Heart Rate 2020-09-23 04:30:00 87 /min [facility] Res[facility] rate 2020-09-23 04:30:00 18 /min [facility] Body Temperature 2020-09-23 04:30:00 97.6 [degF] [facility] Oxygen saturation by 2020-09-23 00:40:00 94 /min [facility] Heart Rate 2020-09-23 00:40:00 81 /min [facility] Respiratory rate 2020-09-23 00:40:00 20 /min [facility] BP Diastolic 2020-09-23 00:23:00 76 mm[Hg] [facility] BP Systolic 2020-09-23 00:23:00 141 mm[Hg] [facility] Oxygen saturation by 2020-09-23 00:23:00 94 /min [facility] Heart Rate 2020-09-23 00:23:00 81 /min [facility] [...] [facility] Heart Rate 2020-09-22 20:04:00 95 /min [facility] Res[facility] rate 2020-09-22 20:04:00 18 /min [facility] Body Temperature 2020-09-22 20:04:00 97.6 [degF] [facility] Oxygen saturation by 2020-09-22 20:02:00 98 /min [facility] Heart Rate 2020-09-22 20:02:00 94 /min [facility] Respiratory rate 2020-09-22 20:02:00 20 /min [facility] Oxygen saturation by 2020-09-22 19:47:00 96 /min [facility] Heart Rate 2020-09-22 19:47:00 95 /min [facility] Respiratory rate 2020-09-22 19:47:00 20 /min [facility] Oxygen saturation by 2020-09-22 15:48:00 100 /min [facility] Heart Rate 2020-09-22 15:48:00 89 /min [facility] Res[facility] rate 2020-09-22 15:48:00 24 /min [facility] BP Diastolic 2020-09-22 15:40:00 57 mm[Hg] [facility] BP Systolic 2020-09-22 15:40:00 143 mm[Hg] [facility] O[facility] saturation by 2020-09-22 15:40:00 98 /min [facility] Heart Rate 2020-09-22 15:40:00 90 /min [facility] Res[facility] rate 2020-09-22 15:40:00 22 /min [facility] Body Temperature 2020-09-22 15:40:00 97.6 [degF] [facility] Oxygen saturation by 2020-09-22 15:33:00 96 /min [facility] Heart Rate 2020-09-22 15:33:00 88 /min [facility] Respiratory rate 2020-09-22 15:33:00 24 /min [facility] BP Diastolic 2020-09-22 11:44:00 65 mm[Hg] [facility] BP Systolic 2020-09-22 11:44:00 165 mm[Hg] [facility] Oxygen saturation by 2020-09-22 11:44:00 100 /min [facility] Heart Rate 2020-09-22 11:44:00 81 /min [facility] Respiratory rate 2020-09-22 11:44:00 23 /min [facility] Body Temperature 2020-09-22 11:44:00 97.9 [degF] [facility] Oxygen saturation by 2020-09-22 11:25:00 100 /min [facility] Heart Rate 2020-09-22 11:25:00 88 /min [facility] Oxygen saturation by 2020-09-22 11:10:00 96 /min [facility] Heart Rate 2020-09-22 11:10:00 84 /min [facility] Res[facility] rate 2020-09-22 11:10:00 24 /min [facility] BP Diastolic 2020-09-22 09:27:00 61 mm[Hg] [facility] BP Systolic 2020-09-22 09:27:00 165 mm[Hg] [facility] Oxygen saturation by 2020-09-22 09:27:00 94 /min [facility] Heart Rate 2020-09-22 09:27:00 84 /min [facility] Res[facility] rate 2020-09-22 09:27:00 22 /min [facility] Body Temperature 2020-09-22 09:27:00 98.0 [degF] [facility] Res[facility] rate 2020-09-22 08:00:00 22 /min [facility] Body Temperature 2020-09-22 08:00:00 98.0 [degF] [facility] BP Diastolic 2020-09-22 08:00:00 61 mm[Hg] [facility] BP Systolic 2020-09-22 08:00:00 165 mm[Hg] [facility] Oxygen saturation by 2020-09-22 08:00:00 94 /min [facility] Heart Rate 2020-09-22 08:00:00 84 /min [facility] BP Diastolic 2020-09-22 03:50:00 72 mm[Hg] [facility] BP Systolic 2020-09-22 03:50:00 144 mm[Hg] [facility] Oxygen saturation by 2020-09-22 03:50:00 97 /min [facility] Heart Rate 2020-09-22 03:50:00 93 /min [facility] Respiratory rate 2020-09-22 03:50:00 24 /min [facility] Body Temperature 2020-09-22 03:50:00 97.9 [degF] [facility] Oxygen saturation by 2020-09-22 02:17:00 100 /min [facility] Heart Rate 2020-09-22 02:17:00 92 /min [facility] Respiratory rate 2020-09-22 02:17:00 20 /min [facility] Oxygen saturation by 2020-09-22 02:02:00 100 /min [facility] Heart Rate 2020-09-22 02:02:00 88 /min [facility] Respiratory rate 2020-09-22 02:02:00 20 /min [facility] BP Diastolic 2020-09-22 00:02:00 64 mm[Hg] [facility] BP Systolic 2020-09-22 00:02:00 139 mm[Hg] [facility] Oxygen saturation by 2020-09-22 00:02:00 100 /min [facility] Heart Rate 2020-09-22 00:02:00 72 /min [facility] Respiratory rate 2020-09-22 00:02:00 20 /min [facility] Body Temperature 2020-09-22 00:02:00 98.4 [degF] [facility] BP Diastolic 2020-09-21 20:07:00 72 mm[Hg] [facility] BP Systolic 2020-09-21 20:07:00 147 mm[Hg] [facility] Oxygen saturation by 2020-09-21 20:07:00 96 /min [facility] Heart Rate 2020-09-21 20:07:00 84 /min [facility] Respiratory rate 2020-09-21 20:07:00 24 /min [facility] Body Temperature 2020-09-21 20:07:00 98.6 [degF] [facility] O[facility] by 2020-09-21 20:02:00 97 /min [facility] Heart Rate 2020-09-21 20:02:00 80 /min [facility] Res[facility] rate 2020-09-21 20:02:00 18 /min [facility] BP Diastolic 2020-09-21 20:00:00 96 mm[Hg] [facility] BP Systolic 2020-09-21 20:00:00 135 mm[Hg] [facility] Oxygen saturation by 2020-09-21 20:00:00 95 /min [facility] Heart Rate 2020-09-21 20:00:00 78 /min [facility] Respiratory rate 2020-09-21 20:00:00 18 /min [facility] Body Temperature 2020-09-21 20:00:00 98.4 [degF] [facility] BP Diastolic 2020-09-21 16:00:00 96 mm[Hg] [facility] BP Systolic 2020-09-21 16:00:00 135 mm[Hg] [facility] O[facility] by 2020-09-21 16:00:00 95 /min [facility] Heart Rate 2020-09-21 16:00:00 78 /min [facility] Respiratory rate 2020-09-21 16:00:00 18 /min [facility] Body Temperature 2020-09-21 16:00:00 98.4 [degF] [facility] BP Diastolic 2020-09-21 13:02:00 90 mm[Hg] [facility] BP Systolic 2020-09-21 13:02:00 201 mm[Hg] [facility] Oxygen saturation by 2020-09-21 13:02:00 96 /min [facility] Heart Rate 2020-09-21 13:02:00 70 /min [facility] Respiratory rate 2020-09-21 13:02:00 18 /min [facility] Body Temperature 2020-09-21 13:02:00 98.3 [degF] [facility] Oxygen saturation by 2020-09-21 10:15:00 96 /min [facility] Heart Rate 2020-09-21 10:15:00 72 /min [facility] Respiratory rate 2020-09-21 10:15:00 18 /min [facility] BP Diastolic 2020-09-21 09:08:00 63 mm[Hg] [facility] BP Systolic 2020-09-21 09:08:00 150 mm[Hg] [facility] O[facility] saturation by 2020-09-21 09:08:00 95 /min [facility] Heart Rate 2020-09-21 09:08:00 63 /min [facility] Res[facility] rate 2020-09-21 09:08:00 17 /min [facility] Body Temperature 2020-09-21 09:08:00 98.0 [degF] [facility] BP Diastolic 2020-09-21 08:58:00 63 mm[Hg] [facility] BP Systolic 2020-09-21 08:58:00 150 mm[Hg] [facility] Oxygen saturation by 2020-09-21 08:58:00 95 /min [facility] Heart Rate 2020-09-21 08:58:00 63 /min [facility] [...] [facility] Heart Rate 2020-09-21 07:38:00 63 /min [facility] Respiratory rate 2020-09-21 07:38:00 17 /min [facility] Body Temperature 2020-09-21 07:38:00 98.0 [degF] [facility] BP Diastolic 2020-09-21 04:00:00 70 mm[Hg] [facility] BP Systolic 2020-09-21 04:00:00 149 mm[Hg] [facility] Oxygen saturation by 2020-09-21 04:00:00 94 /min [facility] Heart Rate 2020-09-21 04:00:00 73 /min [facility] Heart Rate 2020-09-21 00:00:00 76 /min [facility] [...] [facility] Heart Rate 2020-09-20 20:00:00 72 /min [facility] Respiratory rate 2020-09-20 20:00:00 20 /min [facility] Body Temperature 2020-09-20 20:00:00 98.1 [degF] [facility] Oxygen saturation by 2020-09-20 19:53:00 99 /min [facility] Heart Rate 2020-09-20 19:53:00 72 /min [facility] Respiratory rate 2020-09-20 19:53:00 16 /min [facility] Oxygen saturation by 2020-09-20 19:45:00 96 /min [facility] Heart Rate 2020-09-20 19:45:00 75 /min [facility] [...] [facility] Heart Rate 2020-09-20 16:36:00 73 /min [facility] Respiratory rate 2020-09-20 16:36:00 21 /min [facility] Body Temperature 2020-09-20 16:36:00 98.3 [degF] [facility] BP Diastolic 2020-09-20 15:47:00 60 mm[Hg] [facility] BP Systolic 2020-09-20 15:47:00 133 mm[Hg] [facility] by 2020-09-20 15:47:00 94 /min [facility] Heart Rate 2020-09-20 15:47:00 71 /min [facility] Res[facility] rate 2020-09-20 15:47:00 19 /min [facility] Body Temperature 2020-09-20 15:47:00 98.1 [degF] [facility] BP Diastolic 2020-09-20 11:55:00 60 mm[Hg] [facility] BP Systolic 2020-09-20 11:55:00 133 mm[Hg] [facility] Oxygen saturation by 2020-09-20 11:55:00 94 /min [facility] Heart Rate 2020-09-20 11:55:00 71 /min [facility] [...] [facility] Heart Rate 2020-09-20 09:06:00 86 /min [facility] Respiratory rate 2020-09-20 09:06:00 19 /min [facility] Body Temperature 2020-09-20 09:06:00 98.4 [degF] [facility] BP Diastolic 2020-09-20 08:58:00 66 mm[Hg] [facility] Systolic 2020-09-20 08:58:00 145 mm[Hg] [facility] O[facility] by 2020-09-20 08:58:00 99 /min [facility] Heart Rate 2020-09-20 08:58:00 86 /min [facility] Res[facility] rate 2020-09-20 08:58:00 19 /min [facility] Body Temperature 2020-09-20 08:58:00 98.4 [degF] [facility] BP Diastolic 2020-09-20 08:55:00 66 mm[Hg] [facility] BP Systolic 2020-09-20 08:55:00 145 mm[Hg] [facility] Oxygen saturation by 2020-09-20 08:55:00 99 /min [facility] Heart Rate 2020-09-20 08:55:00 86 /min [facility] Respiratory rate 2020-09-20 08:55:00 19 /min [facility] Body Temperature 2020-09-20 08:55:00 98.4 [degF] [facility] BP Diastolic 2020-09-20 07:38:00 66 mm[Hg] [facility] BP Systolic 2020-09-20 07:38:00 145 mm[Hg] [facility] Oxygen saturation by 2020-09-20 07:38:00 99 /min [facility] Heart Rate 2020-09-20 07:38:00 71 /min [facility] Respiratory rate 2020-09-20 07:38:00 19 /min [facility] Body Temperature 2020-09-20 07:38:00 98.4 [degF] [facility] Oxygen saturation by 2020-09-20 07:05:00 95 /min [facility] Heart Rate 2020-09-20 07:05:00 82 /min [facility] Respiratory rate 2020-09-20 07:05:00 18 /min [facility] BP Diastolic 2020-09-20 04:00:00 61 mm[Hg] [facility] BP Systolic 2020-09-20 04:00:00 145 mm[Hg] [facility] Oxygen saturation by 2020-09-20 04:00:00 96 /min [facility] Heart Rate 2020-09-20 04:00:00 66 /min [facility] [...] [facility] Heart Rate 2020-09-20 00:00:00 66 /min [facility] Respiratory rate 2020-09-20 00:00:00 20 /min [facility] Body Temperature 2020-09-20 00:00:00 97.9 [degF] [facility] BP Diastolic 2020-09-19 21:46:00 70 mm[Hg] [facility] BP Systolic 2020-09-19 21:46:00 138 mm[Hg] [facility] Oxygen saturation by 2020-09-19 21:46:00 94 /min [facility] Heart Rate 2020-09-19 21:46:00 80 /min [facility] Respiratory rate 2020-09-19 21:46:00 18 /min [facility] Body Temperature 2020-09-19 21:46:00 97.4 [degF] [facility] Oxygen saturation by 2020-09-19 20:09:00 95 /min [facility] Heart Rate 2020-09-19 20:09:00 82 /min [facility] [...] [facility] Heart Rate 2020-09-19 20:00:00 80 /min [facility] [...] [facility] Heart Rate 2020-09-19 15:41:00 80 /min [facility] Respiratory rate 2020-09-19 15:41:00 20 /min [facility] Body Temperature 2020-09-19 15:41:00 97.6 [degF] [facility] BP Diastolic 2020-09-19 12:14:00 80 mm[Hg] [facility] BP Systolic 2020-09-19 12:14:00 177 mm[Hg] [facility] Oxygen saturation by 2020-09-19 12:14:00 96 /min [facility] Heart Rate 2020-09-19 12:14:00 84 /min [facility] [...] [facility] Heart Rate 2020-09-19 11:26:00 88 /min [facility] 2020-09-19 11:26:00 16 /min [facility] Body Temperature 2020-09-19 11:26:00 98.6 [degF] [facility] Oxygen saturation by 2020-09-19 08:10:00 93 /min [facility] Heart Rate 2020-09-19 08:10:00 97 /min [facility] 2020-09-19 08:10:00 20 /min [facility] BP Diastolic 2020-09-19 07:37:00 91 mm[Hg] [facility] BP Systolic 2020-09-19 07:37:00 168 mm[Hg] [facility] Oxygen saturation by 2020-09-19 07:37:00 97 /min [facility] Heart Rate 2020-09-19 07:37:00 83 /min [facility] Respiratory rate 2020-09-19 07:37:00 21 /min [facility] Body Temperature 2020-09-19 07:37:00 98.1 [degF] [facility] BP Diastolic 2020-09-19 07:17:00 91 mm[Hg] [facility] BP Systolic 2020-09-19 07:17:00 168 mm[Hg] [facility] by 2020-09-19 07:17:00 97 /min [facility] Heart Rate 2020-09-19 07:17:00 83 /min [facility] Respiratory rate 2020-09-19 07:17:00 21 /min [facility] Body Temperature 2020-09-19 07:17:00 98.1 [degF] [facility] BP Diastolic 2020-09-19 05:03:00 97 mm[Hg] [facility] BP Systolic 2020-09-19 05:03:00 157 mm[Hg] [facility] Oxygen saturation by 2020-09-19 05:03:00 93 /min [facility] Heart Rate 2020-09-19 05:03:00 91 /min [facility] Respiratory rate 2020-09-19 05:03:00 18 /min [facility] Body Temperature 2020-09-19 05:03:00 91.0 [degF] [facility] BP Diastolic 2020-09-19 01:59:00 87 mm[Hg] [facility] BP Systolic 2020-09-19 01:59:00 200 mm[Hg] [facility] by 2020-09-19 01:59:00 96 /min [facility] Heart Rate 2020-09-19 01:59:00 92 /min [facility] Respiratory rate 2020-09-19 01:59:00 18 /min [facility] Body Temperature 2020-09-19 01:59:00 97.7 [degF] [facility] BP Diastolic 2020-09-18 22:57:00 86 mm[Hg] [facility] BP Systolic 2020-09-18 22:57:00 158 mm[Hg] [facility] O[facility] by 2020-09-18 22:57:00 96 /min [facility] Heart Rate 2020-09-18 22:57:00 68 /min [facility] Respiratory rate 2020-09-18 22:57:00 18 /min [facility] Body Temperature 2020-09-18 22:57:00 97.7 [degF] [facility] BP Diastolic 2020-09-18 21:58:00 86 mm[Hg] [facility] BP Systolic 2020-09-18 21:58:00 158 mm[Hg] [facility] Oxygen saturation by 2020-09-18 21:58:00 96 /min [facility] Heart Rate 2020-09-18 21:58:00 68 /min [facility] Respiratory rate 2020-09-18 21:58:00 18 /min [facility] Body Temperature 2020-09-18 21:58:00 97.7 [degF] [facility] [facility] Oxygen saturation by 2020-09-18 21:16:00 93 /min [facility] Heart Rate 2020-09-18 21:16:00 97 /min [facility] Respiratory rate 2020-09-18 21:16:00 20 /min [facility] BP Diastolic 2020-09-18 15:41:00 70 mm[Hg] [facility] BP Systolic 2020-09-18 15:41:00 163 mm[Hg] [facility] Oxygen saturation by 2020-09-18 15:41:00 98 /min [facility] Heart Rate 2020-09-18 15:41:00 84 /min [facility] Respiratory rate 2020-09-18 15:41:00 21 /min [facility] Body Temperature 2020-09-18 15:41:00 98.6 [degF] [facility] BP Diastolic 2020-09-18 13:00:00 73 mm[Hg] [facility] BP Systolic 2020-09-18 13:00:00 160 mm[Hg] [facility] Oxygen saturation by 2020-09-18 13:00:00 96 /min [facility] Heart Rate 2020-09-18 13:00:00 86 /min [facility] Heart Rate 2020-09-18 12:00:00 85 /min [facility] Heart Rate 2020-09-18 11:00:00 86 /min [facility] Respiratory rate 2020-09-18 11:00:00 24 /min [facility] BP Diastolic 2020-09-18 10:00:00 79 mm[Hg] [facility] BP Systolic 2020-09-18 10:00:00 150 mm[Hg] [facility] Oxygen saturation by 2020-09-18 10:00:00 96 /min [facility] Heart Rate 2020-09-18 10:00:00 80 /min [facility] Respiratory rate 2020-09-18 10:00:00 19 /min [facility] BP Diastolic 2020-09-18 09:00:00 80 mm[Hg] [facility] BP Systolic 2020-09-18 09:00:00 141 mm[Hg] [facility] Oxygen saturation by 2020-09-18 09:00:00 96 /min [facility] Heart Rate 2020-09-18 09:00:00 86 /min [facility] Respiratory rate 2020-09-18 09:00:00 18 /min [facility] Body Temperature 2020-09-18 09:00:00 97.7 [degF] [facility] BP Diastolic 2020-09-18 08:00:00 70 mm[Hg] [facility] BP Systolic 2020-09-18 08:00:00 146 mm[Hg] [facility] Oxygen saturation by 2020-09-18 08:00:00 96 /min [facility] Heart Rate 2020-09-18 08:00:00 86 /min [facility] Respiratory rate 2020-09-18 08:00:00 15 /min [facility] BP Diastolic 2020-09-18 07:51:00 80 mm[Hg] [facility] BP Systolic 2020-09-18 07:51:00 141 mm[Hg] [facility] Oxygen saturation by 2020-09-18 07:51:00 96 /min [facility] Heart Rate 2020-09-18 07:51:00 86 /min [facility] Respiratory rate 2020-09-18 07:51:00 17 /min [facility] Body Temperature 2020-09-18 07:51:00 97.7 [degF] [facility] Oxygen saturation by 2020-09-18 07:35:00 97 /min [facility] Heart Rate 2020-09-18 07:35:00 85 /min [facility] Respiratory rate 2020-09-18 07:35:00 20 /min [facility] BP Diastolic 2020-09-18 07:00:00 80 mm[Hg] [facility] BP Systolic 2020-09-18 07:00:00 141 mm[Hg] [facility] Oxygen saturation by 2020-09-18 07:00:00 97 /min [facility] Heart Rate 2020-09-18 07:00:00 86 /min [facility] Respiratory rate 2020-09-18 07:00:00 17 /min [facility] Body Temperature 2020-09-18 07:00:00 97.7 [degF] [facility] BP Diastolic 2020-09-18 06:00:00 85 mm[Hg] [facility] BP Systolic 2020-09-18 06:00:00 174 mm[Hg] [facility] O[facility] by 2020-09-18 06:00:00 96 /min [facility] Heart Rate 2020-09-18 06:00:00 95 /min [facility] Heart Rate 2020-09-18 05:00:00 86 /min [facility] [...] [facility] Heart Rate 2020-09-18 04:00:00 76 /min [facility] Respiratory rate 2020-09-18 04:00:00 17 /min [facility] BP Diastolic 2020-09-18 03:00:00 88 mm[Hg] [facility] BP Systolic 2020-09-18 03:00:00 157 mm[Hg] [facility] Oxygen saturation by 2020-09-18 03:00:00 97 /min [facility] Heart Rate 2020-09-18 03:00:00 89 /min [facility] Respiratory rate 2020-09-18 03:00:00 15 /min [facility] BP Diastolic 2020-09-18 02:00:00 80 mm[Hg] [facility] BP Systolic 2020-09-18 02:00:00 145 mm[Hg] [facility] Oxygen saturation by 2020-09-18 02:00:00 96 /min [facility] Heart Rate 2020-09-18 02:00:00 95 /min [facility] Respiratory rate 2020-09-18 02:00:00 16 /min [facility] BP Diastolic 2020-09-18 01:00:00 73 mm[Hg] [facility] BP Systolic 2020-09-18 01:00:00 144 mm[Hg] [facility] Oxygen saturation by 2020-09-18 01:00:00 97 /min [facility] Heart Rate 2020-09-18 01:00:00 84 /min [facility] Respiratory rate 2020-09-18 01:00:00 19 /min [facility] BP Diastolic 2020-09-18 00:00:00 68 mm[Hg] [facility] BP Systolic 2020-09-18 00:00:00 144 mm[Hg] [facility] O[facility] by 2020-09-18 00:00:00 97 /min [facility] Heart Rate 2020-09-18 00:00:00 89 /min [facility] Respiratory rate 2020-09-18 00:00:00 18 /min [facility] Body Temperature 2020-09-18 00:00:00 98.3 [degF] [facility] BP Diastolic 2020-09-17 23:00:00 89 mm[Hg] [facility] BP Systolic 2020-09-17 23:00:00 145 mm[Hg] [facility] Oxygen saturation by 2020-09-17 23:00:00 96 /min [facility] Heart Rate 2020-09-17 23:00:00 90 /min [facility] Respiratory rate 2020-09-17 23:00:00 20 /min [facility] BP Diastolic 2020-09-17 22:03:00 67 mm[Hg] [facility] BP Systolic 2020-09-17 22:03:00 134 mm[Hg] [facility] Oxygen saturation by 2020-09-17 22:03:00 96 /min [facility] Heart Rate 2020-09-17 22:03:00 90 /min [facility] Respiratory rate 2020-09-17 22:03:00 18 /min [facility] BP Diastolic 2020-09-17 21:00:00 62 mm[Hg] [facility] BP Systolic 2020-09-17 21:00:00 117 mm[Hg] [facility] Oxygen saturation by 2020-09-17 21:00:00 96 /min [facility] Heart Rate 2020-09-17 21:00:00 97 /min [facility] Respiratory rate 2020-09-17 21:00:00 19 /min [facility] Oxygen saturation by 2020-09-17 20:08:00 96 /min [facility] Heart Rate 2020-09-17 20:08:00 95 /min [facility] Heart Rate 2020-09-17 20:00:00 105 /min [facility] [...] [facility] Heart Rate 2020-09-17 19:00:00 102 /min [facility] 2020-09-17 19:00:00 23 /min [facility] Body Temperature 2020-09-17 19:00:00 97.4 [degF] [facility] BP Diastolic 2020-09-17 18:00:00 74 mm[Hg] [facility] BP Systolic 2020-09-17 18:00:00 146 mm[Hg] [facility] by 2020-09-17 18:00:00 95 /min [facility] Heart Rate 2020-09-17 18:00:00 97 /min [facility] Res[facility] rate 2020-09-17 18:00:00 18 /min [facility] BP Diastolic 2020-09-17 17:00:00 73 mm[Hg] [facility] BP Systolic 2020-09-17 17:00:00 134 mm[Hg] [facility] by 2020-09-17 17:00:00 94 /min [facility] Heart Rate 2020-09-17 17:00:00 106 /min [facility] Res[facility] rate 2020-09-17 17:00:00 26 /min [facility] BP Diastolic 2020-09-17 16:00:00 83 mm[Hg] [facility] BP Systolic 2020-09-17 16:00:00 184 mm[Hg] [facility] by 2020-09-17 16:00:00 92 /min [facility] Heart Rate 2020-09-17 16:00:00 96 /min [facility] Respiratory rate 2020-09-17 16:00:00 32 /min [facility] Body Temperature 2020-09-17 16:00:00 98.6 [degF] [facility] Oxygen saturation by 2020-09-17 15:28:00 94 /min [facility] Heart Rate 2020-09-17 15:28:00 83 /min [facility] Respiratory rate 2020-09-17 15:28:00 26 /min [facility] Oxygen saturation by 2020-09-17 15:27:00 94 /min [facility] Heart Rate 2020-09-17 15:27:00 83 /min [facility] [...] [facility] Heart Rate 2020-09-17 15:00:00 93 /min [facility] Respiratory rate 2020-09-17 15:00:00 24 /min [facility] Oxygen saturation by 2020-09-17 14:59:00 94 /min [facility] Heart Rate 2020-09-17 14:59:00 84 /min [facility] Heart Rate 2020-09-17 14:00:00 109 /min [facility] [...] [facility] Heart Rate 2020-09-17 13:00:00 112 /min [facility] Respiratory rate 2020-09-17 13:00:00 28 /min [facility] BP Diastolic 2020-09-17 12:00:00 75 mm[Hg] [facility] BP Systolic 2020-09-17 12:00:00 132 mm[Hg] [facility] O[facility] by 2020-09-17 12:00:00 92 /min [facility] Heart Rate 2020-09-17 12:00:00 112 /min [facility] [...] [facility] Heart Rate 2020-09-17 11:00:00 119 /min [facility] [...] BP Systolic 2020-09-17 09:00:00 175 mm[Hg] [facility] Oxygen saturation by 2020-09-17 09:00:00 97 /min [facility] Heart Rate 2020-09-17 09:00:00 88 /min [facility] Respiratory rate 2020-09-17 09:00:00 17 /min [facility] [place] Body Temperature 2020-09-17 09:00:00 97.6 [degF] [facility] BP Diastolic 2020-09-17 08:00:00 77 mm[Hg] [facility] BP Systolic 2020-09-17 08:00:00 167 mm[Hg] [facility] Oxygen saturation by 2020-09-17 08:00:00 96 /min [facility] Heart Rate 2020-09-17 08:00:00 85 /min [facility] [...] [facility] Heart Rate 2020-09-17 07:00:00 84 /min [facility] [...] [facility] Heart Rate 2020-09-17 06:00:00 83 /min [facility] Respiratory rate 2020-09-17 06:00:00 15 /min [facility] BP Diastolic 2020-09-17 05:00:00 74 mm[Hg] [facility] BP Systolic 2020-09-17 05:00:00 160 mm[Hg] [facility] O[facility] by 2020-09-17 05:00:00 96 /min [facility] Heart Rate 2020-09-17 05:00:00 84 /min [facility] Respiratory rate 2020-09-17 05:00:00 16 /min [facility] BP Diastolic 2020-09-17 04:00:00 85 mm[Hg] [facility] BP Systolic 2020-09-17 04:00:00 155 mm[Hg] [facility] Oxygen saturation by 2020-09-17 04:00:00 96 /min [facility] Heart Rate 2020-09-17 04:00:00 86 /min [facility] Respiratory rate 2020-09-17 04:00:00 22 /min [facility] BP Diastolic 2020-09-17 03:30:00 84 mm[Hg] [facility] BP Systolic 2020-09-17 03:30:00 196 mm[Hg] [facility] BP Diastolic 2020-09-17 03:00:00 82 mm[Hg] [facility] BP Systolic 2020-09-17 03:00:00 188 mm[Hg] [facility] [place] Oxygen saturation by 2020-09-17 03:00:00 97 /min [facility] Heart Rate 2020-09-17 03:00:00 90 /min [facility] Respiratory rate 2020-09-17 03:00:00 18 /min [facility] [place] Body Temperature 2020-09-17 03:00:00 97.6 [degF] [facility] BP Diastolic 2020-09-17 02:00:00 75 mm[Hg] [facility] BP Systolic 2020-09-17 02:00:00 154 mm[Hg] [facility] [place] [facility] by 2020-09-17 02:00:00 95 /min [facility] Heart Rate 2020-09-17 02:00:00 88 /min [facility] Respiratory rate 2020-09-17 02:00:00 18 /min [facility] BP Diastolic 2020-09-17 01:00:00 79 mm[Hg] [facility] BP Systolic 2020-09-17 01:00:00 144 mm[Hg] [facility] O[facility] by 2020-09-17 01:00:00 94 /min [facility] Heart Rate 2020-09-17 01:00:00 88 /min [facility] [...] [facility] Heart Rate 2020-09-17 00:00:00 92 /min [facility] Respiratory rate 2020-09-17 00:00:00 26 /min [facility] O[facility] by 2020-09-16 23:05:00 95 /min [facility] Heart Rate 2020-09-16 23:05:00 77 /min [facility] 2020-09-16 23:05:00 17 /min [facility] BP Diastolic 2020-09-16 23:00:00 123 mm[Hg] [facility] BP Systolic 2020-09-16 23:00:00 212 mm[Hg] [facility] Oxygen saturation by 2020-09-16 23:00:00 97 /min [facility] Heart Rate 2020-09-16 23:00:00 83 /min [facility] Respiratory rate 2020-09-16 23:00:00 23 /min [facility] Body Temperature 2020-09-16 23:00:00 97.1 [degF] [facility] BP Diastolic 2020-09-16 22:12:00 76 mm[Hg] [facility] BP Systolic 2020-09-16 22:12:00 137 mm[Hg] [facility] Heart Rate 2020-09-16 22:12:00 80 /min [facility] BP Diastolic 2020-09-16 22:06:00 82 mm[Hg] [facility] BP Systolic 2020-09-16 22:06:00 176 mm[Hg] [facility] Oxygen saturation by 2020-09-16 22:06:00 96 /min [facility] Heart Rate 2020-09-16 22:06:00 82 /min [facility] Respiratory rate 2020-09-16 22:06:00 18 /min [facility] 2020-09-16 22:03:00 81 mm[Hg] [facility] Systolic 2020-09-16 22:03:00 201 mm[Hg] [facility] by 2020-09-16 22:03:00 96 /min [facility] Heart Rate 2020-09-16 22:03:00 84 /min [facility] 2020-09-16 22:03:00 22 /min [facility] BP Diastolic 2020-09-16 22:00:00 86 mm[Hg] [facility] BP Systolic 2020-09-16 22:00:00 206 mm[Hg] [facility] Oxygen saturation by 2020-09-16 22:00:00 96 /min [facility] Heart Rate 2020-09-16 22:00:00 86 /min [facility] 2020-09-16 22:00:00 19 /min [facility] BP Diastolic 2020-09-16 21:01:00 69 mm[Hg] [facility] BP Systolic 2020-09-16 21:01:00 153 mm[Hg] [facility] Oxygen saturation by 2020-09-16 21:01:00 96 /min [facility] Heart Rate 2020-09-16 21:01:00 85 /min [facility] Respiratory rate 2020-09-16 21:01:00 17 /min [facility] BP Diastolic 2020-09-16 20:44:00 111 mm[Hg] [facility] BP Systolic 2020-09-16 20:44:00 141 mm[Hg] [facility] Oxygen saturation by 2020-09-16 20:44:00 96 /min [facility] Heart Rate 2020-09-16 20:44:00 84 /min [facility] Respiratory rate 2020-09-16 20:44:00 21 /min [facility] Body Temperature 2020-09-16 20:44:00 98.0 [degF] [facility] BP Diastolic 2020-09-16 20:42:00 111 mm[Hg] [facility] BP Systolic 2020-09-16 20:42:00 141 mm[Hg] [facility] Heart Rate 2020-09-16 20:42:00 84 /min [facility] BP Diastolic 2020-09-16 20:24:00 66 mm[Hg] [facility] BP Systolic 2020-09-16 20:24:00 163 mm[Hg] [facility] Heart Rate 2020-09-16 20:24:00 84 /min [facility] BP Diastolic 2020-09-16 20:00:00 88 mm[Hg] [facility] BP Systolic 2020-09-16 20:00:00 185 mm[Hg] [facility] Oxygen saturation by 2020-09-16 20:00:00 96 /min [facility] Heart Rate 2020-09-16 20:00:00 96 /min [facility] Respiratory rate 2020-09-16 20:00:00 21 /min [facility] Body Temperature 2020-09-16 20:00:00 98.0 [degF] [facility] Oxygen saturation by 2020-09-16 19:40:00 96 /min [facility] Heart Rate 2020-09-16 19:40:00 105 /min [facility] Respiratory rate 2020-09-16 19:40:00 27 /min [facility] BP Diastolic 2020-09-16 16:00:00 90 mm[Hg] [facility] Systolic 2020-09-16 16:00:00 175 mm[Hg] [facility] Oxygen saturation by 2020-09-16 16:00:00 96 /min [facility] Heart Rate 2020-09-16 16:00:00 108 /min [facility] Respiratory rate 2020-09-16 16:00:00 36 [...] [facility] Heart Rate 2020-09-16 13:00:00 90 /min [facility] Heart Rate 2020-09-16 12:00:00 101 /min [facility] 2020-09-16 12:00:00 32 /min [facility] Body Temperature 2020-09-16 12:00:00 97.8 [degF] [facility] Oxygen [facility] by 2020-09-16 11:00:00 96 /min [facility] Heart Rate 2020-09-16 11:00:00 79 /min [facility] [facility] Respiratory rate 2020-09-16 11:00:00 19 /min [...] [facility] Heart Rate 2020-09-16 10:00:00 82 /min [facility] Heart Rate 2020-09-16 09:00:00 82 /min [facility] Respiratory rate 2020-09-16 09:00:00 20 /min [facility] BP Diastolic 2020-09-16 08:00:00 77 mm[Hg] [facility] BP Systolic 2020-09-16 08:00:00 197 mm[Hg] [facility] by 2020-09-16 08:00:00 94 /min [facility] Heart Rate 2020-09-16 08:00:00 79 /min [facility] 2020-09-16 08:00:00 23 /min [facility] BP Diastolic 2020-09-16 07:00:00 110 mm[Hg] [facility] BP Systolic 2020-09-16 07:00:00 173 mm[Hg] [facility] by 2020-09-16 07:00:00 95 /min [facility] Heart Rate 2020-09-16 07:00:00 73 /min [facility] Respiratory rate 2020-09-16 07:00:00 20 /min [facility] Body Temperature 2020-09-16 07:00:00 98.4 [degF] [facility] BP Diastolic 2020-09-16 06:00:00 78 mm[Hg] [facility] BP Systolic 2020-09-16 06:00:00 178 mm[Hg] [facility] Oxygen saturation by 2020-09-16 06:00:00 93 /min [facility] Heart Rate 2020-09-16 06:00:00 87 /min [facility] Heart Rate 2020-09-16 05:00:00 89 /min [facility] Respiratory rate 2020-09-16 05:00:00 22 /min [facility] Diastolic 2020-09-16 04:00:00 71 mm[Hg] [facility] BP Systolic 2020-09-16 04:00:00 139 mm[Hg] [facility] by 2020-09-16 04:00:00 96 /min [facility] Heart Rate 2020-09-16 04:00:00 85 /min [facility] Respiratory rate 2020-09-16 04:00:00 16 /min [facility] BP Diastolic 2020-09-16 03:00:00 69 mm[Hg] [facility] BP Systolic 2020-09-16 03:00:00 135 mm[Hg] [facility] by 2020-09-16 03:00:00 95 /min [facility] Heart Rate 2020-09-16 03:00:00 82 /min [facility] [...] [facility] Heart Rate 2020-09-16 02:00:00 83 /min [facility] Res[facility] rate 2020-09-16 02:00:00 17 /min [facility] BP Diastolic 2020-09-16 01:00:00 70 mm[Hg] [facility] BP Systolic 2020-09-16 01:00:00 164 mm[Hg] [facility] O[facility] saturation by 2020-09-16 01:00:00 96 /min [facility] Heart Rate 2020-09-16 01:00:00 84 /min [facility] Heart Rate 2020-09-16 00:00:00 77 /min [facility] [...] [facility] Heart Rate 2020-09-15 23:00:00 79 /min [facility] Respiratory rate 2020-09-15 23:00:00 18 /min [facility] BP Diastolic 2020-09-15 22:00:00 55 mm[Hg] [facility] BP Systolic 2020-09-15 22:00:00 133 mm[Hg] [facility] Oxygen saturation by 2020-09-15 22:00:00 94 /min [facility] Heart Rate 2020-09-15 22:00:00 78 /min [facility] rate 2020-09-15 22:00:00 17 /min [facility] BP Diastolic 2020-09-15 21:00:00 56 mm[Hg] [facility] BP Systolic 2020-09-15 21:00:00 145 mm[Hg] [facility] Oxygen saturation by 2020-09-15 21:00:00 93 /min [facility] Heart Rate 2020-09-15 21:00:00 79 /min [facility] Res[facility] rate 2020-09-15 21:00:00 17 /min [facility] Oxygen saturation by 2020-09-15 20:50:00 94 /min [facility] Heart Rate 2020-09-15 20:50:00 81 /min [facility] Respiratory rate 2020-09-15 20:50:00 18 /min [facility] BP Diastolic 2020-09-15 20:00:00 56 mm[Hg] [facility] BP Systolic 2020-09-15 20:00:00 165 mm[Hg] [facility] Oxygen saturation by 2020-09-15 20:00:00 97 /min [facility] Heart Rate 2020-09-15 20:00:00 76 /min [facility] 2020-09-15 20:00:00 22 /min [facility] Oxygen saturation by 2020-09-15 19:00:00 96 /min [facility] Patients [facility] Respiratory rate 2020-09-15 19:00:00 14 /min [facility] Body Temperature 2020-09-15 19:00:00 98.7 [degF] [facility] BP Diastolic 2020-09-15 18:00:00 115 mm[Hg] [facility] BP Systolic 2020-09-15 18:00:00 154 mm[Hg] [facility] Oxygen saturation by 2020-09-15 18:00:00 94 /min [facility] Patients [facility] Heart Rate 2020-09-15 18:00:00 79 /min [facility] 2020-09-15 18:00:00 19 /min [facility] BP Diastolic 2020-09-15 17:00:00 65 mm[Hg] [facility] BP Systolic 2020-09-15 17:00:00 154 mm[Hg] [facility] by 2020-09-15 17:00:00 95 /min [facility] Heart Rate 2020-09-15 17:00:00 71 /min [facility] Respiratory rate 2020-09-15 17:00:00 18 /min [facility] BP Diastolic 2020-09-15 16:00:00 75 mm[Hg] [facility] BP Systolic 2020-09-15 16:00:00 159 mm[Hg] [facility] by 2020-09-15 16:00:00 94 /min [facility] Heart Rate 2020-09-15 16:00:00 75 /min [facility] 2020-09-15 16:00:00 16 /min [facility] BP Diastolic 2020-09-15 15:14:00 71 mm[Hg] [facility] BP Systolic 2020-09-15 15:14:00 169 mm[Hg] [facility] O[facility] by 2020-09-15 15:14:00 100 /min [facility] Patients [facility] Heart Rate 2020-09-15 15:14:00 75 /min [facility] Body Temperature 2020-09-15 15:14:00 97.7 [degF] [facility] BP Diastolic 2020-09-15 15:10:00 66 mm[Hg] [facility] BP Systolic 2020-09-15 15:10:00 156 mm[Hg] [facility] Oxygen saturation by 2020-09-15 15:10:00 100 /min [facility] Patients [facility] Heart Rate 2020-09-15 15:10:00 74 /min [facility] Res[facility] rate 2020-09-15 15:10:00 18 /min [facility] BP Diastolic 2020-09-15 14:50:00 84 mm[Hg] [facility] BP Systolic 2020-09-15 14:50:00 176 mm[Hg] [facility] Oxygen saturation by 2020-09-15 14:50:00 100 /min [facility] Heart Rate 2020-09-15 14:50:00 81 /min [facility] Respiratory rate 2020-09-15 14:50:00 18 /min [facility] BP Diastolic 2020-09-15 14:40:00 94 mm[Hg] [facility] BP Systolic 2020-09-15 14:40:00 200 mm[Hg] [facility] O[facility] by 2020-09-15 14:40:00 97 /min [facility]ulse [facility] Patients [facility] Heart Rate 2020-09-15 14:40:00 96 /min [facility] 2020-09-15 14:40:00 16 /min [facility] BP Diastolic 2020-09-15 14:25:00 96 mm[Hg] [facility] BP Systolic 2020-09-15 14:25:00 175 mm[Hg] [facility] by 2020-09-15 14:25:00 98 /min [facility] Patients [facility] Heart Rate 2020-09-15 14:25:00 99 /min [facility] Respiratory rate 2020-09-15 14:25:00 16 /min [facility] Body Temperature 2020-09-15 14:25:00 98.0 [degF] [facility] BP Diastolic 2020-09-15 11:14:00 67 mm[Hg] [facility] BP Systolic 2020-09-15 11:14:00 177 mm[Hg] [facility] Oxygen saturation by 2020-09-15 11:14:00 94 /min [facility] Patients [facility] Heart Rate 2020-09-15 11:14:00 70 /min [facility] Respiratory rate 2020-09-15 11:14:00 18 /min [facility] Body Temperature 2020-09-15 11:14:00 97.6 [degF] [facility] BP Diastolic 2020-09-15 08:52:00 75 mm[Hg] [facility] BP Systolic 2020-09-15 08:52:00 171 mm[Hg] [facility] Oxygen saturation by 2020-09-15 08:52:00 92 /min [facility] Patients [facility] Heart Rate 2020-09-15 08:52:00 74 /min [facility] Respiratory rate 2020-09-15 08:52:00 18 /min [facility] Body Temperature 2020-09-15 08:52:00 97.6 [degF] [facility] BP Diastolic 2020-09-15 07:45:00 75 mm[Hg] [facility] BP Systolic 2020-09-15 07:45:00 171 mm[Hg] [facility] by 2020-09-15 07:45:00 92 /min [facility] Heart Rate 2020-09-15 07:45:00 74 /min [facility] [...] [facility] Heart Rate 2020-09-15 04:00:00 68 /min [facility] [...] [facility] Heart Rate 2020-09-15 00:00:00 72 /min [facility] Heart Rate 2020-09-14 20:27:00 90 /min [facility] [...] [facility] Heart Rate 2020-09-14 20:00:00 90 /min [facility] Respiratory rate 2020-09-14 20:00:00 20 /min [facility] Body Temperature 2020-09-14 20:00:00 98.5 [degF] [facility] BP Diastolic 2020-09-14 15:47:00 82 mm[Hg] [facility] BP Systolic 2020-09-14 15:47:00 155 mm[Hg] [facility] by 2020-09-14 15:47:00 95 /min [facility] Heart Rate 2020-09-14 15:47:00 85 /min [facility] Heart Rate 2020-09-14 11:15:00 89 /min [facility] [...] [facility] Heart Rate 2020-09-14 07:49:00 88 /min [facility] Respiratory rate 2020-09-14 07:49:00 18 /min [facility] Body Temperature 2020-09-14 07:49:00 97.9 [degF] [facility] BP Diastolic 2020-09-14 07:31:00 67 mm[Hg] [facility] BP Systolic 2020-09-14 07:31:00 166 mm[Hg] [facility] by 2020-09-14 07:31:00 93 /min [facility] Patients [facility] Heart Rate 2020-09-14 07:31:00 88 /min [facility] Respiratory rate 2020-09-14 07:31:00 18 /min [facility] Body Temperature 2020-09-14 07:31:00 97.9 [degF] [facility] BP Diastolic 2020-09-14 04:00:00 74 mm[Hg] [facility] BP Systolic 2020-09-14 04:00:00 175 mm[Hg] [facility] Oxygen saturation by 2020-09-14 04:00:00 94 /min [facility]ulse [facility] Patients [facility] Heart Rate 2020-09-14 04:00:00 94 /min [facility] Heart Rate 2020-09-14 00:00:00 90 /min [facility] Heart Rate 2020-09-13 20:12:00 88 /min [facility] Heart Rate 2020-09-13 20:00:00 88 /min [facility] [...] [facility] Heart Rate 2020-09-13 16:11:00 78 /min [facility] [...] [facility] Heart Rate 2020-09-13 12:08:00 82 /min [facility] 2020-09-13 12:08:00 17 /min [...] [facility] Heart Rate 2020-09-13 11:16:00 79 /min [facility] [...] [facility] Heart Rate 2020-09-13 08:45:00 79 /min [facility] [...] [facility] Heart Rate 2020-09-13 04:00:00 87 /min [facility] Heart Rate 2020-09-13 00:00:00 76 /min [facility] [...] [facility] Heart Rate 2020-09-12 22:28:00 96 /min [facility] [...] [facility] Heart Rate 2020-09-12 22:18:00 96 /min [facility] Respiratory rate 2020-09-12 22:18:00 18 /min [facility] Body Temperature 2020-09-12 22:18:00 97.9 [degF] [facility] BP Diastolic 2020-09-12 20:23:00 92 mm[Hg] [facility] BP Systolic 2020-09-12 20:23:00 150 mm[Hg] [facility] Oxygen saturation by 2020-09-12 20:23:00 96 /min [facility]ulse [facility]xim[facility] Patients [facility] Heart Rate 2020-09-12 20:23:00 95 /min [facility] - Patients [facility] Respiratory rate 2020-09-12 20:23:00 18 /min [facility] Body Temperature 2020-09-12 20:23:00 97.9 [degF] [facility] - Patients [facility] Oxygen saturation by 2020-09-12 20:11:00 96 /min [facility]ulse [facility] Patients [facility] Oxygen saturation by 2020-09-12 18:25:00 98 /min [facility] - Pulse oximetry Patients [facility] Oxygen saturation by 2020-09-12 15:35:00 98 /min [facility] - Pulse oximetry Patients [facility] Procedures Procedure Date / Time Performing Clinician Source Performed HC COMPLETE BLD COUNT 2021-02-23 09:51:00 [facility] W/AUTO DIFF BASIC METABOLIC PANEL 2021-02-23 09:51:00 [facility] ESTIMATED GFR 2021-02-23 09:51:00 [facility] HC COMPLETE BLD COUNT 2021-02-22 09:32:00 [facility]/AUTO DIFF BASIC METABOLIC PANEL 2021-02-22 09:32:00 [facility] ESTIMATED GFR 2021-02-22 09:32:00 [facility] HC COMPLETE BLD COUNT 2021-02-21 09:50:00 [facility]/AUTO DIFF BASIC METABOLIC PANEL 2021-02-21 09:50:00 [facility] LIPID PANEL 2021-02-21 09:50:00 [facility] ESTIMATED GFR 2021-02-21 09:50:00 [facility] COVID-19 ANTI-SPIKE IGG 2021-02-20 23:58:00 [facility] ANTIBODY TITER COVID-19 SEROLOGY PATIENT 2021-02-20 23:58:00 [facility] SURVEILLANCE THYROID STIMULATING 2021-02-20 23:58:00 [facility] HORMONE T4, FREE 2021-02-20 23:58:00 [facility] FERRITIN LEVEL 2021-02-20 23:58:00 [facility] LDH 2021-02-20 23:58:00 [facility] SEDIMENTATION RATE 2021-02-20 23:58:00 [facility] CRP HIGH SENSITIVITY 2021-02-20 23:58:00 [facility] INTERLEUKIN 6 2021-02-20 23:58:00 [facility] PROCALCITONIN 2021-02-20 23:58:00 [facility] D-DIMER 2021-02-20 23:58:00 [facility] PROTHROMBIN TIME WITH INR 2021-02-20 23:58:00 [facility] TROPONIN, I-STAT 2021-02-20 15:35:00 [facility] COVID-19 QUALITATIVE 2021-02-20 14:41:00 Osmel Fowler [facility] RT-PCR CT ANGIOGRAM PE CHEST 2021-02-20 13:52:[address] [facility] US DUPLEX VENOUS LOWER 2021-02-20 12:59:12 Isaac Quiles [facility] EXTREMITY RIGHT Narendra URINALYSIS 2021-02-20 12:35:00 Isaac Quiles [facility] Narendra XR CHEST 1 VW PORTABLE 2021-02-20 12:15:13 Isaac Quiles [facility] Narendra BASIC METABOLIC PANEL 2021-02-20 12:10:00 Isaac Quiles [facility] Narendra ESTIMATED GFR 2021-02-20 12:10:00 Isaac Quiles [facility] RESPIRATORY PATHOGEN 2021-02-20 12:05[facility] Narendra RT-PCR COMPREHENSIVE METABOLIC 2021-02-20 11:55:[address] [facility] PANEL Narendra CBC WITH PLATELET AND 2021-02-20 11:55:00 Isaac Quiles [facility] DIFFERENTIAL Narendra CREATINE KINASE, TOTAL 2021-02-20 11:55:00 Isaac Quiles [facility] (CPK) Narendra TROPONIN, I-STAT 2021-02-20 11:55:00 [facility] ESTIM[facility]FR 2021-02-20 11:55:00 Isaac Quiles [facility] spital Narendra PROTHROMBIN TIME WITH 2021-02-20 11:55:00 Isaac Quiles [facility] INR, I-STAT Narendra MANUAL DIFFERENTIAL 2021-02-20 11:55:00 Isaac Quiles [facility] Narendra ECG 12-LEAD 2021-02-20 11:33:15 Isaac Quiles spital Narendra ECG ED PRELIMINARY 2021-02-20 11:32:10 Isaac Quiles [facility] INTERPRETATION Narendra PHYSICIAN ORDERS 2021-01-24 05:01:00 Doctor Unanancy, [facility] [place] [facility] CERVICAL SPINE WO 2021-01-16 05:11:15 Mumtaz Swanson [facility] CONTRAST Medical Branch CT HEAD WO CONTRAST 2021-01-16 05:11:15 Mumtaz Swanson [facility] [place] NOTICE OF PRIVACY 2021-01-16 04:10:39 Doctor Bryson, [facility] PRACTICES [place] [facility] HEAD WO CONTRAST 2021-01-11 01:54:48 Sushma Juarez [facility] [place] CONSENT/REFUSAL FOR 2021-01-10 23:21:01 Doctor Unanancy, [facility] DIAGNOSIS AND TREATMENT [place] [facility] NOTICE OF PRIVACY 2020-12-29 19:06:49 Doctor Unanancy, [facility] [place] [facility] CONSENT/REFUSAL FOR 2020-12-29 19:06:22 Doctor [facility]assrodrigo, [facility] DIAGNOSIS AND TREATMENT [place] [facility] ASSIGNMENT OF BENEFITS 2020-12-29 19:06:04 Doctor Unassrodrigo [facility] [place] [facility] ASSIGNMENT OF BENEFITS 2020-12-29 17:51:14 [facility] [place] [facility] HC COMPLETE BLD COUNT 2020-12-03 10:00:00 [facility] W/AUTO DIFF BASIC METABOLIC PANEL 2020-12-03 09:00:00 [facility] ESTIMATED GFR 2020-12-03 09:00:00 [facility] MRI BRAIN WO CONTRAST 2020-12-02 17:48:00 [facility] BASIC METABOLIC PANEL 2020-12-02 08:52:00 [facility] ESTIMATED GFR 2020-12-02 08:52:00 [facility] HC COMPLETE BLD COUNT 2020-12-02 08:38:00 [facility] W/AUTO DIFF US CAROTID DUPLEX 2020-12-01 20:45:00 [facility] BILATERAL TTE COMPLETE, WO 2020-12-01 16:39:21 [facility] CONTRAST, W DOPPLER ([id number]) HC COMPLETE BLD COUNT 2020-12-01 09:30:00 [facility] W/AUTO DIFF BASIC METABOLIC PANEL 2020-12-01 09:00:00 [facility] ESTIMATED GFR 2020-12-01 09:00:00 [facility] LIPID PANEL 2020-12-01 02:15:00 [facility] THYROID STIMULATING 2020-12-01 02:15:00 [facility] HORMONE T4, FREE 2020-12-01 02:15:00 [facility] TROPONIN 2020-12-01 02:15:00 [facility] HEMOGLOBIN A1C 2020-12-01 01:15:00 [facility] URINALYSIS, AUTOMATED 2020-11-30 22:23:00 [facility] WITH MICROSCOPY COVID-19 QUALITATIVE 2020-11-30 21:44:00 [facility] RT-PCR CT HEAD WO CONTRAST 2020-11-30 19:03:25 [facility] CT ANGIOGRAM PE CHEST 2020-11-30 19:03:13 [facility] ECG ED PRELIMINARY 2020-11-30 17:08:13 [facility] INTERPRETATION HC COMPLETE BLD COUNT 2020-11-30 16:15:00 [facility] W/AUTO DIFF PROTHROMBIN TIME WITH INR 2020-11-30 16:15:00 [facility] PARTIAL THROMBOPLASTIN 2020-11-30 16:15:00 [facility] TIME (PTT) COMPREHENSIVE METABOLIC 2020-11-30 16:15:00 [facility] PANEL TROPONIN 2020-11-30 16:15:00 [facility] NATRIURETIC PEPTIDE 2020-11-30 16:15:00 [facility] ESTIMATED GFR 2020-11-30 16:15:00 [facility] D-DIMER 2020-11-30 16:15:00 [facility]spital ECG 12-LEAD 2020-11-30 15:58:05 [facility]spital Computed tomography of 2020-09-20 00:00:00 RUSTAM Bruno - chest with contrast Patients [facility] Exploratory laparotomy 2020-09-15 00:00:00 RUSTAM Bruno - Patients [facility] CT of abdomen and pelvis 2020-03-02 00:00:00 RUSTAM rAora - without contrast Patients [facility] EXTERNAL PROVIDER RECORDS 2019-01-27 05:01:00 Doctor Unassigned, [facility] [place] [facility] Plan of Care Planned Activity Planned Date Details Comments Source Future Scheduled Test 65+ [address]UM[address] [facility] VACCINE (1 of 2 - PPSV23) [code = 65+ PNEUMOCOCCAL VACCINE (1 of 2 - PPSV23)] Future Scheduled Test COVID-19 VACCINE (1) [facility] [code = COVID-19 VACCINE (1)] Future Scheduled Test SHINGLES VACCINES (#1) [facility] [code = SHINGLES VACCINES (#1)] Future Scheduled Test INFLUENZA VACCINE [code [facility] = INFLUENZA VACCINE] Encounters Start End Encounter Admission Attending Care Care Encounter Source Date/Time Date/Time Type Type Clinicians Facility Department ID 2021-04-30 Emergency [facility] [id number] Univers 09:16:44 ity [facility] 2021-04-30 Emergency [facility] [id number] Univers 08:16:39 ity [facility] 2021-04-11 2021-04-23 Inpatient FIFI, [facility] [id number] [place] 00:00:00 00:00:00 ANDREW 777 Method i 2021-04-19 2021-04-19 Inpatient ATTAR, [facility] [id number] [place] 00:00:00 00:00:00 MOHBRIGID 627 Metho di 2021-03-09 2021-03-09 Emergency LORY ALEJO [facility] [id number] [place] 00:00:00 00:00:00 967 Method i 2021-02-20 2021-02-23 Hospital FIFI 1.2.840.1 [id number] [place] 00:00:00 00:00:00 Encounter ANDREW 36831.1.1 [address] .3.110511 .8 2021-02-20 2021-02-20 Travel 1.2.840.1 1.2.480.437 [id number] Methodi 00:00:00 00:00:[address] 3.430.2.7 0.2.7.3.698 Ho spita .3.678858 084.8 l .8 2021-01-30 2021-01-30 Outpatient R HESHAM, [facility] [id number] Univers 14:30:00 14:30:00 WONDIFUL ity o f [facility] 2021-01-24 2021-01-24 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 Carolyn, Fred [facility] Main [facility] 1.2.8 40.114 [id number] Univers 15:50:12 16:05:12 Visit David Cruz 350.1.13.1 0 [place] [phone] Ms dical nal [address] Building 2021-01-24 2021-01-24 Outpatient R [facility] [id number] -[id number] Univers 16:00:00 16:00:00 [id number] ity of [facility] 2021-01-24 2021-01-24 Outpatient R ANTHONY [facility] [id number] Univers 16:00:00 16:00:00 DAVID ity of [facility] 2021-01-24 2021-01-24 Orders Doctor DAVID 1.2.840.114 [id number] Univers 00:00:00 00:00:00 Only Unassigned, GREGORY 350.1.13.10 ity of [place] [facility] 4.2.7.2.686 Flash as [phone] [facility] 009 Branch 2021-01-15 2021-01-16 Emergency [facility] 1.2.253.200 [id number] Univers 23:22:00 03:17:00 Mumtaz Tineo 350.1.13.10 i [place].2.686 [place] [phone] [facility] 084 Branch 2021-01-10 2021-01-10 Emergency Sagar Holland [facility] 1.2.840.114 [id number] Univers 18:49:00 22:03:00 May Tineo 350.1.13.10 i [place] 4.2.7.2.686 [facility] [place] [phone] [facility] 084 Branch 2020-12-29 2020-12-29 [facility] 1.2.840.114 [id number] Univers 14:04:19 23:59:00 Encounter Melody Tineo 350.1.13.10 [place].2.686 [place] [phone] [facility] 807 Branch 2020-12-29 2020-12-29 [facility] 1.2.840.114 [id number] Univers 14:00:00 14:03:00 Encounter Melody Tineo 350.1.13.10 [place] 4.2.7.2.686 [place] [facility] [id number] [facility] [address] [place] 2020-12-29 2020-12-29 Outpatient VAL, [facility] [id number] -[id number] Univers 14:00:00 14:00:00 MELODY [id number] ity [facility] 2020-12-29 2020-12-29 [facility] 1.2.840.114 [id number] 12:52:54 13:35:06 Visit Melody Dodson [facility] 350.1.13.10 [place] 4.2.7.2.686 Professio [phone] [address] One 2020-12-29 2020-12-29 [facility] 1.2.840.114 [id number] Univers 12:52:54 13:35:06 Visit Melody Dodson [facility] 350.1.13.10 i ty of [place] 4.2.7.2.686 Flash as Professio [phone] Me dical [address] Office [facility] One 2020-12-29 2020-12-29 [facility] [id number] Univers 13:00:00 13:00:00 MELODY ity [facility] 2020-12-29 2020-12-29 Orders Doctor DAVID 1.2.840.114 [id number] Univers 00:00:00 00:00:00 Only Unassigned, GREGORY 350.1.13.10 ity of [place] [facility] 4.2.7.2.686 Flash as [phone] [facility] [address] [place] 2020-11-30 2020-12-04 [facility] 1.2.840.1 [id number] [place] 00:00:00 00:00:00 Encounter ANDREW 54704.1.1 [address] 3.430.2.[address] .3.595903 .8 2020-11-30 2020-11-30 Travel 1.2.840.1 1.2.252.783 [id number] Methodradha 00:00:00 00:00:[address] 3.430.2.7 0.2.7.3.698 Ho spita .3.669459 084.8 l .8 2020-09-12 2020-09-28 Discharged 1 [facility]ENY [facility] justin [id number] [facility] 19:18:00 13:20:00 Inpatient SOUHEIL Patients 99 [facility] 2020-03-02 2020-03-02 Registered 3 YENY [facility] [id number] 13:32:00 13:32:00 Clinic JEANNINE Patients 29 [facility] 2019-01-27 2019-01-27 Orders Doctor DAVID 1.2.840.114 [id number] Univers 00:00:00 00:00:00 Only Unassigned, GREGORY 350.1.13.10 ity [facility] [place] [facility] 4.2.7.2.686 Flash as [phone] [facility] hemal 009 Branch Results Test Description Test Time Test Comments Results Result Comments Source ECG 12 lead 2021-02-20 17:04:06 Test Item Value Reference Range Interpretation Comme nts Ventricular rate (test code = 253) Atrial rate (test code = 255) HI interval (test code = 266) QRSD interval [...] of 30-NOV-2020 10:58,-No significant change was found- [facility] Cwqlj7245-05-94 13:59:27EXAMINATION: CT ANGIOGRAM PE CHEST HISTORY: 89 [...] the lower lungs, likely mild pulmonary edema.[id number]_[id number] HospitalUs duplex venous lower hqsuxrcif1012-07-11 12:59:58EXAMINATION: US DUPLEX VENOUS LOWER EXTREMITY RIGHT [...] lower extremity named vessels as described above. [id number] Interface, Radiology Results 02/20/2021 8:03 AM CDT [...] lower extremity named vessels as described above. [id number] HospitalXR Chest 1 Vw Tctikkie9106-63-64 12:29:01EXAMINATION: XR CHEST 1 VW PORTABLE CLINICAL [...] Single view chest. 6OM1RAD_PS02Hm Interface, Radiology Results 02/20/2021 7:32 AM CDT EXAMINATION: XR CHEST 1 VW PORTABLECLINICAL HISTORY: increased phlemg tachypnea r o PNACOMPARISON: December 11, 2017IMPRESSION:Lungs are hypoexpandedMinimal patchy bibasilar atelectasis.No focal infiltrateNo congestion or effusion is. No visible pneumothoraxThe Cardiomediastinal silhouette is normal in size. TAVR sternotomy wires and atherosclerosis unchangedUnderlying osteopeniaNo acute bony abnormalityChole cystectomy clipsSingle view chest.6OM1RAD_PS02[facility] HospitalECG ED Preliminary Interpretation - Not an Wsyqq6938-36-78 11:32:10Osmel Fowler MD 02/20/2021 10:18 AMECG ED Preliminary Interpretation - Not an OrderPerform ed by: Isaac Quiles MDAuthorized by: Isaac Quiles MD Interpretation: Interpretation: non-specific Quality: Tracing quality: Limited by artifactRate: ECG rate: 65 ECG rate assessment: normal Rhythm: Rhythm: sinus rhythm ST segments: ST segments: Non-specificT waves: T waves: non-specificMethodist HospitalCT HEAD WO YTLYXMJP6142-46-23 01:56:56 No acute intracranial abnormality. CT HEAD WO CONTRAST HISTORY: Male 89 years Head trauma, mod-severe hit right side of head onconcrete with fall; takes blood thinner COMPARISON: None TECHNIQUE: Noncontrast CT images of the head with multiplanar reformats. FINDINGS: The ventricles and sulci are normal in size and configuration for patientage. No intracranial abnormality such as hemorrhage, edema, mass-effect,midline shift, hydrocephalus or pathologic extra axial fluid collection isappreciated. Thebasal cisterns are patent. Few deep and periventricular hypoattenuation, nonspecific but likelyreflecting chronic small vessel ischemic changes. Chronic left cerebellarlacunar infarct. No parenchymal attenuation abnormality. The davis-whitematter differentiation is preserved. Coarse calcifications in the basalganglia and right dentate nucleus. The calvarium and skull base are intact. ?The paranasal sinuses and mastoidair cells are clear. Left pseudophakia. [facility], Radiant Results Inft User - 01/10/2021 8:[address] HEAD WO CONTRASTHISTORY:Male 89 years Head trauma, mod-severe hit right side of head onconcrete with fall; takes blood thinner COMPARISON: NoneTECHNIQUE: Noncontrast CT images of the head with multiplanar reformats.FINDINGS:The ventricles and sulci are normal in size and configuration for patientage. No intracranial abnormality such as hemorrhage, edema, mass-effect,midline shift, hydrocephalus or pathologic extra axial fluid collection isappreciated. The basal cisterns are patent.Few deep and periventricular hypoattenuation, nonspecific but likelyreflecting chronic small vessel ischemic changes. Chronic left cerebellarlacunar infarct. No parenchymal attenuation abnormality. The davis- whitematter differentiation is preserved. Coarse calcifications in the basalganglia and right dentate nucleus.The calvarium and skull baseare intact. The paranasal sinuses and mastoidair cells are clear. Left pseudophakia.IMPRESSIONNo acute intracranial abnormality.[facility] Brain Wo Lfpwwbaa9262-21-76 18:04:52EXAMINATION: MRI BRAIN WO CONTRAST CLINICAL HISTORY: [...] IMPRESSION: No structural evidence of neurodegenerative disease. [facility]-[id number] Interface, Radiology Results Incoming - 12/02/2020 1:08 [...] Nonspecific diffuse hypoperfusion.IMPRESSION:No structural evidence of neurodegenerative disease.[id number] HospitalPv carotid knuvwa0520-32-31 02:56:00 [facility]ascular Ultrasound Laboratory Carotid Artery Duplex Report [address] [place] [address] For senior quality technician purposes, the categorization of the degree of the stenosis of this exam is based on criteria described in the IAC carotid stenosis grading white paper( ww w.intersocietal.org/Vascular) and Jana Angulo, Zuri Ruth, et al. Carotid artery stenosis: davis-scale and Doppler US diagnosis--Society of Radiologists in Ultrasound Consensus Conference. Radiology. 2003 Nov; 229(2):340-6. Pat.Name: JUSTICE HARDY.ID: [id number] .Date: 12/01/2020 Refer.MD: ANDREW CALIX MD Exam Time: 3:19:00 PM Study Type:Carotid Height: 64in Weight: 120lb BSA: 1.58 m2 Age: 7 1930,89Y Sex: MALE Sonogrphr: VINCENZO Leigh Pat. Stat.:Inpatient Room: [address] Tape Vol: GB, CPT - 4: 92537 Echo Event ID:[id number] Order ID: [id number] Reason for Study:Altered mental status. History of [...] [facility] Ultras[facility] Laboratory Carotid Artery Duplex Report [address] [address], [place] [address] For senior quality technician purposes, the categorization of the degree of the stenosis of this examis based on criteria described in the IAC carotid stenosis grading white paper( www.intersocietal.org/Vascular) and Shakira Angulo., Sherry Ruth., et al. Carotid artery stenosis: davis-scale and Doppler US diagnosis--Society of Radiologists in Ultrasound Consensus Conference. Radiology. 2003 Nov; 229(2):340 -6. Pat.Name: JUSTICE HARDY Pat.ID: [id number] .Date: 12/01/2020 Refer.MD: ANDREW CALIX MD Exam Time: 3:19:00 PM Study Type:Carotid Height: 64in Weight: 120lb BSA: 1.58 m2 Age: 7 1930,89Y Sex: MALE Sonogrphr: VINCENZO Leigh Pat. Stat.:[address] T[address] Vol: GB, CPT - 4: 19288 Echo Event ID:[id number] Order ID: [id number] Reason for Study:Altered mental status. History of [...] 0.621 Signed 12/01/2020 09:56 Husam Leahy MD, [facility] Transthoracic Echocardiogram Complete, (w Contrast, Strain and 3D if needed) 2020-12-01 19:37:00 Echocardiography Report [address] [place] [address] Pat.Name: JUSTICE HARDY Pat.ID: [id number] .Date: 12/01/2020 Refer.MD: ANDREW CALIX MDExam Time: 10:51:00 AM Study Type:Routine Echo Height: 64in Weight: 120lb BSA: 1.58 m2 Age: 7 1930,89Y Sex: MALE BP: 183/90 HR: 90 bpm Sonogrphr: ROSIE Mishra Pat. Stat.:Inpatient Room: [facility] Study Status:Final Echo Event ID:[id number] ID: [id number] Reason for Study:hx of TAVR History / [...] PA systolic p ressure. MEASUREMENTS: 2DParasternal [place] Ao An 1.9 cm LVPWd0.94 cm Ao [...] 133 cm/s AV TVI 37 cm AV pkPG24 mmHg AVpkAcRt 7006 cm/s2 AV Mean G [...] - 12/01/2020 2:38 PM CDT Echocardiography Report [address] [place] [address] Pat.Name: JUSTICE HARDY Pat.ID: [id number] .Date: 12/01/2020 Refer.MD: ANDREW CALIX MDExfay Time: 10:51:00 AM Study Type:Routine Echo Height: 64in Weight: 120lb BSA: 1.58 m2 Age: 7 1930,89Y Sex: MALE BP: 183/90 HR: 90 bpm Sonogrphr: ROSIE Mishra Pat. Stat.:Inpatient Room: [facility] Study Status:Final Echo Event ID:[id number] Order ID: [id number] Reason for Study:hx of TAVR History / [...] estimate PA systolic pressure. MEASUREMENTS: 2DParasternal [place] Ao An 1.9 cm LVPWd 0.94 cm [...] cm2 DOPPLERAV For Flow/AUGIE AV pkVel 247cm/s (100- 170)* AV AC/ET 0.17 AV mnVel 133 cm/s [...] l/m/m2 Signed 12/01/2020 02:37 PMSherif Mara Magdaleno M.D.[facility] Head Wo Sqzzbbon6376-50-88 19:08:27EXAMINATION: CT HEAD WO CONTRAST CLINICAL HISTORY: [...] cells are clear. IMPRESSION: Noacute intracranial abnormalities. [id number] Interface, Radiology Results - 11/30/2020 2:11 PM CDT EXAMINATION: CT [...] air cells are clear.IMPRESSION:No acute intracranial abnormalities .[facility]-[id number] [facility] leukocytes automated count (number/volume)2020-09-28 05:25:00 Test Item Value Reference Range Interpretation Comments White Blood Count (test code = 6690-2) 10.37 4.8-10.8 [facility] erythrocytes automated count (number/volume)2020-09-28 05:25:00 Test Item Value Reference Range Interpretation Comments Red Blood Count (test code = 789-8) 3.00 4.3-5.7 [facility] hemoglobin measurement (moles/volume)2020-09-28 05:25:00 Test Item Value Reference Range Interpretation Comments Hemoglobin (test code = 52831-2) 9.1 14.0-18.0 [facility] HospitalAutomated blood hematocrit (volume fraction)2020-09-28 05:25:00 Test Item Value Reference Range Interpretation Comments Hematocrit (test code = 4544-3) 26.0 38.2-49.6 [facility] HospitalAutomated erythrocyte mean corpuscular cucfch1951-83-01 05:25:00 Test Item Value Reference Range Interpretation Comments Mean Corpuscular Volume (test code = 86.7 81-99 787-2) [facility] HospitalAutomated erythrocyte mean corpuscular hemoglobin (mass per erythrocyte)2020-09-28 05:25:00 Test Item Value Reference Range Interpretation Comments Mean Corpuscular Hemoglobin (test code 30.3 28-32 = 785-6) [facility] HospitalAutomated erythrocyte mean corpuscular hemoglobin concentration measurement (mass/volume)2020-09-28 05:25:00 Test Item Value Reference Range Interpretation Comments Mean Corpuscular Hemoglobin Concent 35.0 31-35 (test code = 786-4) [facility] HospitalRDW XaeXi-Vxg4215-37-01 05:25:00 Test Item Value Reference Range Interpretation Comments Red Cell Distribution Width (test code 16.1 11.7-14.4 = 23114-9) [facility] HospitalAutomated blood platelet count (count/volume)2020-09-28 05:25:00 Test Item Value Reference Range Interpretation Comments Platelet Count (test code = 777-3) 253 140-360 [facility] HospitalAutomated blood segmented neutrophil count as percentage of total pohubpwcrp2671-24-86 05:25:00 Test Item Value Reference Range Interpretation Comments Neutrophils (%) (Auto) (test code = 77.9 38.7-80.0 97310-3) [facility] HospitalAutomated blood lymphocyte count as percentage ot total lakvkmuigg5370-52-98 05:25:00 Test Item Value Reference Range Interpretation Comments Lymphocytes (%) (Auto) (test code = 12.3 18.0-39.1 736-9) [facility] HospitalAutomated blood monocyte count as percentage of total ktftbkaddx5387-48-81 05:25:00 Test Item Value Reference Range Interpretation Comments Monocytes (%) (Auto) (test code = 6.4 4.4-11.3 5905-5) [facility] HospitalAutomated blood eosinophil count as percentage of total hxdoekjrie7789-76-99 05:25:00 Test Item Value Reference Range Interpretation Comments Eosinophils (%) (Auto) (test code = 1.8 0.0-6.0 713-8) [facility] HospitalAutomated blood basophil count as percentage of total nvoyjwhwex2910-76-33 05:25:00 Test Item Value Reference Range Interpretation Comments Basophils (%) (Auto) (test code = 0.4 0.0-1.0 706-2) [facility] HospitalFluoroscopic procedure less than one hour ixxnlytp3705-50-76 05:25:00 Test Item Value Reference Range Interpretation Comments IM GRANULOCYTES % (test code = IM 1.2 0.0-1.0 GRANULOCYTES %) [facility] HospitalAutomated blood neutrophil count 2020-09-28 05:25:00 Test Item Value Reference Range Interpretation Comments Neutrophils # (Auto) (test code = 8.1 2.1-6.9 751-8) [facility] HospitalBlood lymphocytes count (number/volume) 2020-09-28 05:25:00 Test Item Value Reference Range Interpretation Comments Lymphocytes # (Auto) (test code = 1.3 1.0-3.2 31784-0) [facility] HospitalBlood monocytes automated count (number/volume)2020-09-28 05:25:00 Test Item Value Reference Range Interpretation Comments Monocytes # (Auto) (test code = 742-7) 0.7 0.2-0.8 [facility] HospitalAutomated blood eosinophil count 2020-09-28 05:25:00 Test Item Value Reference Range Interpretation Comments Eosinophils # (Auto) (test code = 0.2 0.0-0.4 711-2) [facility] HospitalAutomated blood basophil count (count/volume)2020-09-28 05:25:00 Test Item Value Reference Range Interpretation Comments Basophils # (Auto) (test code = 704-7) 0.0 0.0-0.1 [facility] HospitalFluoroscopic procedure less than one hour dbhawimg7203-54-40 05:25:00 Test Item Value Reference Range Interpretation Comments Absolute Immature Granulocyte (auto 0.12 0-0.1 (test code = Absolute Immature Granulocyte (auto) [facility] sodium measurement (moles/volume)2020-09-28 05:25:00 Test Item Value Reference Range Interpretation Comments Sodium Level (test code = 2951-2) 132 136-145 [facility]viewerum or plasma potassium measurement (moles/volume)2020-09-28 05:25:00 Test Item Value Reference Range Interpretation Comments Potassium Level (test code = 2823-3) 3.3 3.5-5.1 [facility]um or plasma chloride measurement (moles/volume)2020-09-28 05:25:00 Test Item Value Reference Range Interpretation Comments Chloride Level (test code = 2075-0) 106 98-107 [facility]viewerum or plasma carbon dioxide, total measurement (moles/volume)2020-09-28 05:25:00 Test Item Value Reference Range Interpretation Comments Carbon Dioxide Level (test code = 2028-02) [facility]view[facility]um or plasma anion xiz7235-40-25 05:25:00 Test Item Value Reference Range Interpretation Comments Anion Gap (test code = 30272-8) 9.3 8-16 [facility]viewerum or plasma urea nitrogen measurement (mass/volume)2020-09-28 05:25:00 Test Item Value Reference Range Interpretation Comments Blood Urea Nitrogen (test code = 01-22 3094-0) [facility]um or plasma creatinine measurement (mass/volume)2020-09-28 05:25:00 Test Item Value Reference Range Interpretation Comments Creatinine (test code = 2160-0) 0.83 0.72-1.25 [facility]view[facility]um or plasma urea nitrogen/creatinine mass nkrqz0405-90-65 05:25:00 Test Item Value Reference Range Interpretation Comments BUN/Creatinine Ratio (test code = 12-22 3097-3) [facility] HospitalEstimated glomerular filtration rate (GFR) oeptxqmofiaap7941-27-25 05:25:00 Test Item Value Reference Range Interpretation Comments Estimat Glomerular > 60 See_Comment [Automat ed message] The Filtration Rate (test system which generated code = 337109105) this resul t transmitted reference range : 60-. The reference r duane was not used to int erpret this result as normal/abnormal . [facility] HospitalGlucose aprhyvwgbnt4355-53-11 05:25:00 Test Item Value Reference Range Interpretation Comments Glucose Level (test code = MES3981) 104 74-118 [facility]viewerum or plasma calcium measurement (mass/volume)2020-09-28 05:25:00 Test Item Value Reference Range Interpretation Comments Calcium Level (test code = 13084-2) 7.4 8.4-10.2 [facility]view[facility]um or plasma total bilirubin measurement (mass/volume)2020-09-28 05:25:00 Test Item Value Reference Range Interpretation Comments Total Bilirubin (test code = 1975-2) 0.7 0.2-1.2 [facility] HospitalFluoroscopic procedure less than one hour deeqipmo0468-87-70 05:25:00 Test Item Value Reference Range Interpretation Comments Aspartate Amino Transf (AST/SGOT) (test 74 5-34 code = Aspartate Amino Transf (AST/SGOT)) [facility]viewerum or plasma alanine aminotransferase measurement (enzymatic activity/volume)2020-09-28 05:25:00 Test Item Value Reference Range Interpretation Comments Alanine Aminotransferase (ALT/SGPT) 107 0-55 (test code = 1742-6) [facility]viewerum or plasma protein measurement (mass/volume)2020-09-28 05:25:00 Test Item Value Reference Range Interpretation Comments Total Protein (test code = 2885-2) 4.2 6.5-8.1 [facility]viewerum or plasma albumin measurement (mass/volume)2020-09-28 05:25:00 Test Item Value Reference Range Interpretation Comments Albumin (test code = 1751-7) 1.9 3.5-5.0 [facility] HospitalPlasma globulin measurement (mass/volume) 2020-09-28 05:25:00 Test Item Value Reference Range Interpretation Comments Globulin (test code = 63226-0) 2.3 2.3-3.5 [facility]viewerum or plasma albumin/globulin mass iibjc8259-27-36 05:25:00 Test Item Value Reference Range Interpretation Comments Albumin/Globulin Ratio (test code = 0.8 0.8-2.0 1759-0) [facility]viewerum or plasma alkaline phosphatase measurement (enzymatic activity/volume)2020-09-28 05:25:00 Test Item Value Reference Range Interpretation Comments Alkaline Phosphatase (test code = 100 40-150 6768-6) [facility] HospitalTroponin I measurement by highly sensitive enzyme oodnprqivex2002-35-28 05:25:00 Test Item Value Reference Range Interpretation Comments Troponin I (test code = 94501-2) 0.109 0-0.300 [facility] HospitalCHEST SINGLE (PORTABLE)2020-09-26 10:41:00[facility] : 1930 Sex: M [place] [address] Patient Name: JUSTICE HARDY MR #: [id number] : 1930 Age/Sex: 89/M Req #: [id number] Adm Physician: ZACHARIAH SAINI MD Ordered by: ARASH CASTORENA MD Report #: [id number] Location: MED/SURG Room/Bed: [facility] Procedure: [id number] DX/CHEST SINGLE (PORTABLE) Exam Date: 09/26/20 Exam [...] AYDEN on 09/26/201047 COPY TO: ARASH CASTORENA [facility] 2020-09-26 09:13:00 [facility] 1930 Sex: [place] [address] Patient Name: JUSTICE HARDY MR #: [id number] : 1930 Age/Sex: 89/M Req #: [id number] Adm Physician: ZACHARIAH SAINI MD Ordered by: JEANNINE SAINI MD Report #: [id number] Location: MED/SURG Room/Bed: [facility] Procedure: 1500-0200 DX/ABDOMEN 2 VIEW Exam Date: 09/26/20 Exam [...] Natriuretic Peptide (test code = 50.2 0-100 78747-2) [facility] plasma amylase measurement (enzymatic activity/volume)2020-09-26 05:17:00 Test Item Value Reference Range Interpretation Comments Amylase Level (test code = 1798-8) 98 25-125 [facility] or plasma lipase measurement (enzymatic activity/volume)2020-09-26 05:17:00 Test Item Value Reference Range Interpretation Comments Lipase (test code = 3040-3) 98 8-78 [facility] HospitalABDOMEN 2 [id number] 23:59:00 [facility] : 1930 Sex: M [facility] [address] [place] [address] Patient Name: JUSTICE HARDY MR #: [id number] : 1930 Age/Sex: 89/M Req #: [id number] Adm Physician: ZACHARIAH SAINI MD Ordered by: JEANNINE SAINI MD Report #: [id number] Location: MED/SURG Room/Bed: [facility] Procedure: [id number] DX/ABDOMEN 2 VIEW Exam Date: 09/24/20 Exam [...] levels are seen in the right hemiabdomen. Mesa lucency in the upper abdomen on the upright view projecting over the T12 vertebral body , likely represents pneumoperitoneum IMPRESSION: 1. Overall appearance of postsurgical ileus with diffuse mildly dilated small bowel and distended air distended colon to the level of the rectum. Distal obstruction is not excluded. Recommend radiographic follow-up until resolution. 2. Mesa lucency projecting over the T12 vertebral body may represent pneumoperitoneum as seen on recent chest CT, possibly related to recent surgery. Signed by: Patricia Wheat MD on 09/25/2020 12:48 AM Dictated By: TIESHA WHEAT MD Transcribed By: AYDEN on 09/25/2047 COPY TO: JEANNINE SAINI MDSerum or plasma magnesium measurement (mass/volume)2020-09-23 16:40:00 Test Item Value Reference Range Interpretation Comments Magnesium Level (test code = 18767-7) 1.5 1.3-2.1 [facility] HospitalFluoroscopic procedure less than one hour [id number] 08:51:00 Test Item Value Reference Range Interpretation Comments Differential Total Cells Counted (test 100 code = Differential Total Cells Counted) [facility]100 leukocytes 2020-09-22 08:51:00 Test Item Value Reference Range Interpretation Comments Neutrophils % (Manual) (test code = 86 40-74 80946-8) [facility] blood band neutrophils form/100 [id number] 08:51:00 Test Item Value Reference Range Interpretation Comments Band Neutrophils % (test code = 764-1) 0 [facility] blood lymphocytes/100 leukocytes 2020-09-22 08:51:00 Test Item Value Reference Range Interpretation Comments Lymphocytes % (Manual) (test code = 7 19-48 737-7) [facility] blood monocytes/100 leukocytes 2020-09-22 08:51:00 Test Item Value Reference Range Interpretation Comments Monocytes % (Manual) (test code = 7 3.4-9.0 744-3) [facility] HospitalAutomated reticulocyte count as percentage of total hiysasenfeqg8091-53-37 05:15:00 Test Item Value Reference Range Interpretation Comments Percent Reticulocyte Count (test code = 1.5 0.8-2.2 36672-2) [facility] or plasma iron measurement (mass/volume)2020-09-21 05:15:00 Test Item Value Reference Range Interpretation Comments Iron Level (test code = 2498-4) 26 65-175 [facility] or plasma iron binding capacity measurement (mass/volume)2020-09-21 05:15:00 Test Item Value Reference Range Interpretation Comments Total Iron Binding Capacity (test code 193 000-439 = 2500-7) [facility] or plasma iron saturation measurement (mass fraction)2020-09-21 05:15:00 Test Item Value Reference Range Interpretation Comments Percent Iron Saturation (test code = 13 1550 2502-3) [facility] or plasma transferrin measurement (mass/volume)2020-09-21 05:15:00 Test Item Value Reference Range Interpretation Comments Transferrin (test code = 3034-6) 138 174-364 [facility] HospitalBlood cobalamin (vitamin B12) measurement (mass/volume)2020-09-21 05:15:00 Test Item Value Reference Range Interpretation Comments Vitamin B12 Level (test code = 36355-0) 591 213-816 [facility] or plasma folate measurement (mass/volume)2020-09-21 05:15:00 Test Item Value Reference Range Interpretation Comments Folate (test code = 2284-8) 17.8 >3.0 [facility] HospitalCT CHEST [id number] 21:42:00 [facility] : 1930 Sex: [place] [address] Patient Name: JUSTICE HARDY MR #: [id number] : 1930 Age/Sex: 89/M Req #: [id number] Adm Physician: ZACHARIAH SAINI MD Ordered by: AJ FLYNN DO Report #: [id number] Location: MED/SURG Room/Bed: [facility] Procedure: [id number] CT/CT CHEST W Exam Date: 09/20/20 Exam Time: 2114 REPORT STATUS: Signed EXAM: CT Chest WITH contrast 09/20/2020 9:15 PM INDICATION: PE [id number] 2114 COMPARISON: None TECHNIQUE: Chest was scanned [...] 09/20/202199 COPY TO: AJ FLYNN DO Phosphorus [id number] 03:45:00 Test Item Value Reference Range Interpretation Comments Phosphorus Level (test code = VIT6955) 0.8 2.3-4.7 [facility] HospitalCHEST SINGLE (PORTABLE)2020-09-17 15:26:00[facility] : 1930 Sex: [place] [address] Patient Name: JUSTICE HARDY MR #: [id number] : 1930 Age/Sex: 89/M Req #: [id number] Adm Physician: ZACHARIAH SAINI MD Ordered by: ZACHARIAH SAINI MD Report #: [id number] Location: ICU Room/Bed: ICU [facility] Procedure: 3602-6951 DX/CHEST SINGLE (PORTABLE) Exam Date: 09/17/20 Exam Time: 1450 REPORT STATUS: Signed EXAMINATION: CHEST SINGLE (PORTABLE) INDICATION: SOB, tachypnea 20200917 1450 COMPARISON: Prior x-rays including most recent [...] (PT) in platelet poor plasma by coagulation [id number] 10:55:00 Test Item Value Reference Range Interpretation Comments Prothrombin Time (test code = 5902-2) 16.5 11.9-14.5 [facility] HospitalINR in Platelet poor plasma by Coagulation [id number] 10:55:00 Test Item Value Reference Range Interpretation Comments Prothromb Time International Ratio 1.25 (test code = 6301-6) [facility] HospitalCHEST XRAY LINE [id number] 20:57:00[facility] : 1930 Sex: [place] [address] Patient Name: JUSTICE HARDY MR #: [id number] : 1930 Age/Sex: 89/M Req #: [id number] Adm Physician: ZACHARIAH SAINI MD Ordered by: ZACHARIAH SAINI MD Report #: [id number] Location: ICU Room/Bed: [place] [address] Procedure: 7920-8862 DX/CHEST XRAY LINE PLACEMENT Exam Date: 09/16/20 [...] AYDEN on 09/16/202101 COPY TO: ZACHARIAH SAINI [facility])2020-09-15 14:55:00 [facility] : 1930 Sex: [place] [address] Patient Name: JUSTICE HARDY MR #: [id number] : 1930 Age/Sex: 89/M Req #: [id number] Adm Physician: ZACHARIAH SAINI MD Ordered by: DHARMESH LINARES MD Report #: [id number] Lo cation: MED/SURG Room/Bed: [facility] Procedure: [id number] DX/CHEST SINGLE (PORTABLE) Exam Date: 09/15/20 Exam [...] AYDEN on 09/15/201456 COPY TO: DHARMESH LINARES [facility] ACUTE SERIES W/PA CXR 2020-09-15 10:17:00 [facility] : 1930 Sex: M [facility] [address] [place] [address] Patient Name: JUSTICE HARDY MR #: [id number] : 1930 Age/Sex: 89/M Req #: [id number] Adm Physician: ZACHARIAH SAINI MD Ordered by: DHARMESH LINARES MD Report #: [id number] Lo cation: MED/SURG Room/Bed: [facility] Procedure: 0423-6052 DX/ABDOMEN ACUTE SERIES W/PA CXR Exam Date: [...] on 09/15/20 1020 COPY TO: DHARMESH LINARES [facility] ACUTE SERIES W/TENZIN [id number] 10:50:00 [facility] : 1930 Sex: [place] [address] Patient Name: JUSTICE HARDY MR #: [id number] : 1930 Age/Sex: 89/M Req #: [id number] Adm Physician: ZACHARIAH SAINI MD Ordered by: DHARMESH LINARES MD Report #: [id number] Lo cation: MED/SURG Room/Bed: 107 Procedure: [id number] DX/ABDOMEN ACUTE SERIES W/PA CXR Exam Date: 09/14/20 Exam Time: 1020 REPORT STATUS: Signed X-ray abdomen acute series with 2 views of the abdomen and a single view of the chest INDICATION: sbo [id number] 1020 Comparison: X-ray dated 09/14/2019. Discussion: Lungs [...] Kinase (test code = 2157-6) 385 30-200 [facility] or plasma creatine kinase MB measurement (mass/volume)2020-09-13 11:24:00 Test Item Value Reference Range Interpretation Comments Creatine Kinase MB (test code = 2.90 0-5.0 37190-1) [facility] HospitalABDOMEN 2 [id number] 09:26:00 [facility] : 1930 Sex: [place] [address] Patient Name: JUSTICE HARDY MR #: [id number] : 1930 Age/Sex: 89/M Req #: [id number] Adm Physician: ZACHARIAH SAINI MD Ordered by: SHANNAN CERVANTES MD Report #: [id number] Location: MED/SURG Room/Bed: [facility] Procedure: [id number] DX/ABDOMEN 2 VIEW Exam Date: 09/13/20 Exam Time: 634 REPORT STATUS: Signed Exam: KUB - 2 [...] code = Lactic 0.7 0.5-2.0 Acid Level) [facility] HospitalFluoroscopic procedure less than one hour aiyqspyt6340-00-58 19:02:00 Test Item Value Reference Range Interpretation Comments Coronavirus (PCR) (test code = NOT DETECTED NOTDETECTED Coronavirus (PCR)) [facility] HospitalCT ABD/PEL WO [id number] 17:30:00[facility] : 1930 Sex: [place] [address] Patient Name: JUSTICE HARDY MR #: [id number] : 1930 Age/Sex: 89/M Req #: [id number] [facility] Physician: Ordered by: SHANNAN CERVANTES MD Report #: [id number] Location: [facility] Room/Bed: Procedure: HOPD/CT ABD/PEL WO CONTRAST-HOPD Exam Date: 09/12/20 [...] 09/12/201744 COPY TO: SHANNAN CERVANTES MDCT ABDOMEN/PELVIS [id number] 15:20:00 [place] [address] Patient Name: JUSTICE HARDY MR #: [id number] : 1930 Age/Sex: 89/M Req #: [id number] Adm Physician: Mario boyd by: JEANNINE SAINI MD Report #: [id number] Location: CT Room/Bed: Procedure: [id number] CT/CT ABDOMEN/PELVISWO Exam Date: 03/02/20 Exam Time: [...]
[2021-06-17] MEDS ORDERED: FLUCONAZOLE 100 MG TAB ONE (12:41)
[2021-06-17 13:12] LABS: Urine Blood Trace-intact (Negative); Urine Glucose Negative (Negative); Urine Protein Negative (Negative); Urine Specific Gravity 1.015 (1.005-1.030)
[2021-06-17 13:28] LABS: Urine Bacteria <20 /HPF (NONE SEEN); Urine RBC <5 /HPF (NONE SEEN)
--- NOTE | 2021-06-17 13:33 | ER ---
Nurse's Notes [facility] Name: Benito Castaneda Age: 89 yrs Sex: Male : 1930 Arrival Date: 06/17/2021 Time: 12:19 Bed 5 Private MD: Diagnosis: Phimosis Presentation: 06/17 12:32 Chief complaint: Patient states: Burning with urination and feeling as if he is not ss emptying his bladder completely x 2 weeks. Coronavirus screen: Client denies travel out of the [place] in the last 14 days. Ebola Screen: Patient denies exposure to infectious person. Patient denies travel to an Ebola-affected area in the 21 days before illness onset. Initial Sepsis Screen: Does the patient meet any 2 criteria? No. Patient's initial sepsis screen is negative. Does the patient have a suspected source of infection? No. Patient's initial sepsis screen is negative. Risk Assessment: Do you want to hurt yourself or someone else? Patient reports no desire to harm self or others. Onset of symptoms was June 03, 2021. 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 - Social history:: Smoking status: Patient denies any tobacco usage or history of. - Family history:: not pertinent. - Hospitalizations: : No recent hospitalization is reported. Screenin:07 Abuse screen: Denies threats or abuse. Nutritional screening: No deficits noted. vg1 Tuberculosis screening: No symptoms or risk factors identified. Fall Risk No fall in past 12 months (0 pts). No secondary diagnosis (0 pts). No IV (0 pts). Ambulatory Aid- Crutches/Cane/Walker (15 pts). Gait- Normal/Bed Rest/Wheelchair (0 pts) Mental Status- Oriented to own ability (0 pts). Total Brady Fall Scale indicates No Risk (0-24 pts). Assessment: 13:05 General: Appears in no apparent distress. comfortable, Behavior is calm, cooperative. vg1 Pain: Complains of pain in pelvis Pain currently is 7 out of 10 on a pain scale. Pain began x 1 month. Neuro: Level of Consciousness is awake, alert, obeys commands, Oriented to person, place, time, situation. Cardiovascular: Patient's skin is warm and dry. Respiratory: Airway is patent Respiratory effort is even, unlabored. GI: Abdomen is non-distended, Abdomen is tender to palpation in suprapubic area. : Reports burning with urination, pain in suprapubic area with urination. EENT: No signs and/or symptoms were reported regarding the EENT system. Derm: Skin is intact, is healthy with good turgor. Musculoskeletal: Circulation, motion, and sensation intact. 14:52 Reassessment: Patient appears in no apparent distress at this time. No changes from vg1 previously documented assessment. Patient and/or family updated on plan of care and expected duration. Pain level reassessed. Patient is alert, oriented x 3, equal unlabored respirations, skin warm/dry/pink. Pt states 'still feel pressure near my bladder'. Provider notified. Vital Signs: 12:32 BP 132 / 67; Pulse 72; Resp 16; Temp 97.4; Pulse Ox 98% on R/A; Weight 54.43 kg; Height ss 5 ft. 4 in. (162.56 cm); Pain 7/10; 13:30 BP 138 / 65; Pulse 67; Resp 16; Pulse Ox 98% ; jl7 14:00 BP 138 / 61; Pulse 70; Resp 16; Pulse Ox 96% ; jl7 14:45 BP 138 / 66; Pulse 73; Resp 16; Pulse Ox 98% ; jl7 12:32 Body Mass Index 20.60 (54.43 kg, 162.56 cm) ED Course: 12:19 Patient arrived in ED. mr 12:27 Andrade Moore MD is Attending Physician. rn 12:29 Karin Mcbride RN is Primary Nurse. vg1 12:35 Triage completed. ss 12:38 Arm band placed on left wrist. ss 13:04 Urine collected: Juarez catheter specimen, clear, Amount Returned: 400mL. Juarez cath vg1 inserted, using sterile technique, 16 Fr., by wv, balloon inflated, to gravity drainage, urine specimen collected. returned clear yellow urine. Patient tolerated well. 13:07 Patient has correct armband on for positive identification. Placed in gown. Bed in low vg1 position. Call light in reach. Side rails up X 1. Adult w/ patient. 13:32 Jani Mcnair MD is Referral Physician. rn 15:10 No provider procedures requiring assistance completed. Patient did not have IV access vg1 during this emergency room visit. Administered Medications: 13:04 Drug: DiFLUcan (fluconazole) 200 mg Route: PO; vg1 14:52 Follow up: Response: No adverse reaction vg1 Output: 14:49 Urine: 1100ml (Juarez); Total: 1100ml. vg1 Outcome: 13:33 Discharge ordered by MD. rn 15:10 Discharged to home ambulatory, with family. vg1 15:10 Condition: good 15:10 Discharge instructions given to patient, family, Instructed on discharge instructions, follow up and referral plans. medication usage, Demonstrated understanding of instructions, follow-up care, medications, Prescriptions given X 3. 15:11 Patient left the ED. vg1 Signatures: Flakita George Andrade Moore MD MD rn Smirch, Shelby, RN RN Jimenez Brewer RN RN jl7 Karin Mcbride, RN RN vg1 Corrections: (The following items were deleted from the chart) 13:14 13:04 Urine collected: Juarez catheter specimen, clear, Amount Returned: 300mL vg1 vg1
--- NOTE | 2021-06-17 13:34 | EDPHYS ---
Physician Documentation [facility] Name: Benito Castaneda Age: 89 yrs Sex: Male : 1930 Arrival Date: 06/17/2021 Time: 12:19 Bed 5 Private MD: ED Physician Andrade Moore HPI: 06/17 13:03 This 89 yrs old Male presents to ER via Ambulatory with complaints of Urinary rn Problem. 13:03 The patient presents with urinary symptoms, dribbling of urine, retention, unable to rn void. 13:03 Onset: The symptoms/episode began/occurred 2 week(s) ago. Modifying factors: The rn symptoms are alleviated by nothing, the symptoms are aggravated by urinating. Associated signs and symptoms: Pertinent positives: dysuria, Pertinent negatives: fever, hematuria. Severity of symptoms: At their worst the symptoms were mild, in the emergency department the symptoms are unchanged. The patient has not experienced similar symptoms in the past. The patient has not recently seen a physician. Patient reports difficulty urinating with dribbling for 2 weeks, worse over the last few days, feels like cannot completely empty. Reports has had problems with foreskin swelling in the past. Denies diabetes. Denies trauma. Denies hematuria.. 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 - Social history:: Smoking status: Patient denies any tobacco usage or history of. - Family history:: not pertinent. - Hospitalizations: : No recent hospitalization is reported. ROS: 13:03 Constitutional: Negative for fever, chills, and weight loss, Eyes: Negative for injury, rn pain, redness, and discharge, Neck: Negative for injury, pain, and swelling, Cardiovascular: Negative for chest pain, palpitations, and edema, Respiratory: Negative for shortness of breath, cough, wheezing, and pleuritic chest pain, Abdomen/GI: Negative for abdominal pain, nausea, vomiting, diarrhea, and constipation, Back: Negative for injury and pain, : Positive for swelling of foreskin, positive for dysuria MS/Extremity: Negative for injury and deformity, Skin: Negative for injury, rash, and discoloration, Neuro: Negative for headache, weakness, numbness, tingling, and seizure. Exam: 13:03 Constitutional: This is a well developed, well nourished patient who is awake, alert, rn and in no acute distress. Head/Face: Normocephalic, atraumatic. Cardiovascular: Regular rate and rhythm. No pulse deficits. Respiratory: No increased work of breathing, no retractions or nasal flaring. Abdomen/GI: Soft, non-tender Male : Exam shows swollen foreskin consistent with phimosis, unable to completely retract foreskin to visualize meatus. No drainage Skin: Warm, dry MS/ Extremity: Pulses equal, no cyanosis. Neuro: Awake and alert, GCS 15 Vital Signs: 12:32 BP 132 / 67; Pulse 72; Resp 16; Temp 97.4; Pulse Ox 98% on R/A; Weight 54.43 kg; Height ss 5 ft. 4 in. (162.56 cm); Pain 7/10; 13:30 BP 138 / 65; Pulse 67; Resp 16; Pulse Ox 98% ; jl7 14:00 BP 138 / 61; Pulse 70; Resp 16; Pulse Ox 96% ; jl7 14:45 BP 138 / 66; Pulse 73; Resp 16; Pulse Ox 98% ; jl7 12:32 Body Mass Index 20.60 (54.43 kg, 162.56 cm) MDM: 12:27 Patient medically screened. rn 13:31 Differential diagnosis: UTI, urinary retention, prostatitis, urethritis, phimosis. Data rn reviewed: vital signs, nurses notes, lab test result(s), and as a result, I will discharge patient. Counseling: I had a detailed discussion with the patient and/or guardian regarding: the historical points, exam findings, and any diagnostic results supporting the discharge/admit diagnosis, lab results, the need for outpatient follow up, to return to the emergency department if symptoms worsen or persist or if there are any questions or concerns that arise at home. Response to treatment: the patient's symptoms have markedly improved after treatment, and as a result, I will discharge patient. Special discussion: I discussed with the patient/guardian in detail that at this point there is no indication for admission to the hospital. It is understood, however, that if the symptoms persist or worsen the patient needs to return immediately for re-evaluation. Based on the history and exam findings, there is no indication for further emergent testing or inpatient evaluation. I discussed with the patient/guardian the need to see the urologist for further evaluation of the symptoms. 06/17 12:35 Order name: Urine Culture rn 06/17 12:35 Order name: Urine Microscopic Only; Complete Time: 13:31 rn 06/17 12:35 Order name: Juarez Leg Bag; Complete Time: 13:13 rn 06/17 12:35 Order name: Urine Dipstick-Ancillary (obtain specimen); Complete Time: 13:13 rn 06/17 13:12 Order name: Urine Dipstick-Ancillary; Complete Time: 13:31 EDMS Administered Medications: 13:04 Drug: DiFLUcan (fluconazole) 200 mg Route: PO; vg1 14:52 Follow up: Response: No adverse reaction vg1 Disposition Summary: 06/17/21 13:33 Discharge Ordered Location: Home rn Problem: new rn Symptoms: have improved rn Condition: Stable rn Diagnosis - Phimosis rn Followup: rn - With: Jani Mcnair MD - When: 5 - 6 days - Reason: Recheck today's complaints, Re-evaluation by your physician Discharge Instructions: - Discharge Summary Sheet rn - Indwelling Urinary Catheter Care, Adult rn Forms: - Medication Reconciliation Form rn - Thank You Letter rn - Antibiotic learning developer - Prescription Opioid Use rn Prescriptions: - Diflucan 150 mg Oral Tablet - take 1 tablet by ORAL route one time for 3 days; 3 tablet; Refills: 0, Product rn Selection Permitted - Betamethasone Dipropionate 0.05 % Topical Cream - apply 1 application by TOPICAL route 2 times per day 4 weeks; 1 tube; Refills: rn 0, Product Selection Permitted - Nystatin-Triamcinolone 100,000-0.1 unit/g-% Topical Cream - apply 1 application by TOPICAL route 2 times per day; 1 tube; Refills: 0, rn Product Selection Permitted Signatures: [employer] EDMS Moore, Andrade, MD MD rn Toshia Serrato RN RN ss Karin Mcbride RN RN vg1
[2021-06-17 15:37] VITALS: TEMP 97.4
[2021-06-17 15:41] VITALS: BP 138/66; O2SAT 98
== END 2021-06-17 15:11 | disposition home or self-care (01) ==
LOC: ER 12:06
DX: N47.1 Phimosis (principal); I10 Essential (primary) hypertension; Z88.8 Allergy status to other drugs, medicaments and biological substances; Z95.1 Presence of aortocoronary bypass graft; Z91.048 Other nonmedicinal substance allergy status; Z95.818 Presence of other cardiac implants and grafts
CPT/HCPCS: 51702; 81003; 81015; 87086; 87088; 99284

== ENCOUNTER 2021-06-22 13:43 | Emergency (ER) | payer OTHER, BC ==
--- OUTSIDE RECORDS SUMMARY | 2021-06-22 13:49 | XMS REPORT | Continuity of Care Document ---
:1930 Author Organization [facility] t Address [address] [place] [address] Care Team Providers Name Role Phone Asked, No Pcp Primary Care Physician Unavailable 2030_Biopsy Attending Clinician Unavailable FIFI Attending Clinician Unavailable ATTAR Attending Clinician Unavailable MELO Attending Clinician Unavailable Ivory DAHL Attending Clinician Unavailable Pob, Lab Main Attending Clinician Unavailable Anthony GARCIA, S Attending Clinician Sherrill CRUZ Attending Clinician Unavailable Doctor Unassigned, Name Attending Clinician Unavailable Singer AGUIRRE Attending Clinician May Peralta Attending Clinician Ivory Whaley Attending Clinician Ivory CARDONA Attending Clinician Unavailable YENY Attending Clinician Unavailable SAINI Attending Clinician Unavailable 2030_Biopsy Admitting Clinician Unavailable FIFI Admitting Clinician Unavailable SAINI Admitting Clinician Unavailable Payers Payer Name Policy Type Policy Effective Date Expiration Date Sour ce Number BCBS FED SELECT [id number] 2015 00:00:00 MEDICARE PART A \T\ B [id number] 1996 00:00:00 MEDICAREMEDICARE PART [id number] 1996 [place] ed[place] Sue AND 00:00:00 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 Employees 00:00:[facility] Medicare A & B [id number] [address] [facility] 00:00:00 - [...] Added automatic ally from request for surgery [id number] Small Problem Active [facility] bowel [facility] - obstructio Patien t n s [facility] Nausea Problem Active [facility] Patient [facility] Hypomagnes Problem Active [facility] emia [facility] Leukocytos Problem Active [facility] is [facility] - Patient [facility] Hypertensi Problem Active [facility] 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 pain [facility] No known No known Disease Unive rs active active ity of problems problems [facility] Branch Allergies, Adverse Reactions, Alerts Allergy Allergy Status [...] - substanc 00:00: Patient e 00 Medical [place] Doxazosi Allergy Active 2018-[address] [facility] [facility]17 [facility] sub[facility]anc 00:[facility]: Patient e 00 [facility] [place] NO KNOWN Drug Active Univers ALLERGIE Class ity of S [facility] Family History Family Member Diagnosis Comments Start Date Stop Date Source Natural brother [facility] Natural father Heart disease [facility] Natural father Hypertension [facility] Natural mother Alzheimer's disease [facility] Natural sister [facility] Social History Social Habit Start Date Stop Date Quantity Comments Source History of tobacco Smoker [facility] Exposure to Not sure [facility] SARS-CoV-2 (event) [facility] Cigarettes smoked 2021-02-20 2021-02-[address] current (pack per 00:00:00 00:00:00 Hospita l day) - Reported Cigarette 2021-02-20 2021-02-20 [facility] pack-years 00:00:00 00:00:00 Hospital Alcohol intake 2021-01-10 2021-01-10 Current University of 00:00:00 00:00:00 non-drinker of [facility] alcohol (finding) Branch Tobacco use and 2021-01-10 2021-01-10 Never used Universit y of exposure 00:00:00 00:00:00 [facility] Alcohol Comment 2017-12-10 2017-12-10 ocassional [facility] 00:00:00 00:00:00 Hospital Sex Assigned At [birth year] Universit [facility] 00:00:00 00:00:00 [facility] Smoking Status Start Date Stop Date Source Former smoker 2021-02-20 00:00:00 2021-02-20 00:00:00 [facility] Never smoker [facility] Medications Ordered Filled Start Stop Current Ordering Indication Dosage Frequency Signature Comments Components Source Medication Medication Date Date Medication? Clinician (SIG) Name Name latonia 2020- No 24763S Q7D Take 1 M ethodi rol 02-27 [...] 18:24: daily. Hospit a 21 l carvediloL 0 Yes 25mg Q.5D Take 25 mg M ethodi (COREG) 25 8-[address] MG tablet 18:24: (two) Hospita 21 times a l day with meals. tamsulosin 0 Yes .4mg Q.5D Take 0.4 Met hodi (FLOMAX) 8-[address] 0.4 mg 18:24: mouth 2 Hospita capsule 21 (two) l times a day. lisinopriL Yes 10mg Q.5D Take 10 mg M ethodi (PRINIVIL) 02-[address] 10 mg 18:24: (two) Hospita tablet 21 times a l day. ipratropium Yes 1{spray 1 spray Methodi (ATROVENT) 02-23 [...] .1mg Q.5D Take 0.1 Met hodi (CATAPRES) 824 08-[address] 0.1 MG 13:05: 00:00 mouth 2 Hospita tablet 55 :00 (two) l times a day. pantoprazol 2020- No 40mg 40 mg, Uni vers e 01-16 Oral, ONCE ity of (PROTONIX) 08:30: 07:18 [place] tablet [place] :00 dose, Tue Medic al 40 mg 01/16/21 at Branch 0330, ISHA maalox:diph 2020- No 15mL 15 mL, Uni vers enhydrAMINE 01-16 Oral, ity of :lidocaine2 08:15: 07[place]12 [place] 1 [place] %viscous 00 :00 dose, Tue Medica l 1:1:1: 01/16/21 at [place] suspension 0315, (COMPOUNDED Routine ) cloNIDine 2020- No .1mg 0.1 mg, Univ ers (CATAPRES) 01-1620 Oral, ity of tablet 0.1 07:15: 06:15 ONCE, 1 [place] mg 00 :00 dose, [facility] Medical 01/16/21 at Branch 0215, STAT cloNIDine 2020- No .1mg 0.1 mg, Univ ers (CATAPRES) 01-1620 Oral, ity of tablet 0.1 05:45: 04:45 ONCE, 1 [place] mg 00 :00 dose, [facility] 01/16/21 at Branch 0045, STAT amLODIPine Yes 10mg Take 10 mg U nivers 10 mg - by mouth ity of tablet 18:08: daily. [address] aspirin 325 2020-0 Yes 325mg Take [...] 7-02 by mouth ity of 18:08: at [place] 23 bedtime. Medical Branch cloNIDine Yes .1mg Take 0.1 Univ ers 0.1 mg 7-02 mg by ity of tablet 18:08: mouth 3 [place] 23 (three) Medical times Branch daily. apixaban Yes 2.5mg Take 2.5 Univ ers (ELIQUIS) 7-02 mg by ity of 2.5 mg 18:08: mouth 2 [place] [facility] 23 (two) Medical times Branch daily. omeprazole Yes 40mg Take 40 mg U nivers 40 mg 7-02 by mouth ity of capsule 18:08: daily. [place] [address] Medical Branch lisinopriL Yes 5mg Take 5 mg Un alma 5 mg tablet 7-02 by mouth ity of 18:08: daily. [place] [address] Medical Branch finasteride Yes 5mg Take 5 mg U nivers 5 mg tablet 7-02 by mouth ity of 18:08: daily. [place] [address] Medical Branch amLODIPine Yes 10mg Take 10 mg U nivers 10 mg 7-02 by mouth ity of tablet 18:08: daily. [place] [address] Medical Branch aspirin 325 Yes 325mg Take [...] 7-02 by mouth ity of 18:08: at [place] 23 bedtime. Medical Branch cloNIDine 2021-0 Yes .1mg Take 0.1 Univ ers 0.1 mg 7-02 mg by ity of tablet 18:08: mouth 3 [place] 23 (three) Medical times Branch daily. apixaban Yes 2.5mg Take 2.5 Univ ers (ELIQUIS) 7-02 mg by ity of 2.5 mg 18:08: mouth 2 [place] tablet 23 (two) Medical times Branch daily. omeprazole 0 Yes 40mg Take 40 mg U nivers 40 mg 7-02 by mouth ity of capsule 18:08: daily. [place] [address] Medical Branch lisinopriL 0 Yes 5mg Take 5 mg Un alma 5 mg tablet 7-02 by mouth ity of 18:08: daily. [place] [address] Medical Branch finasteride 0 Yes 5mg Take 5 mg U nivers 5 mg tablet 7-02 by mouth ity of 18:08: daily. [address] Branch amLODIPine Yes 10mg Take 10 mg U nivers 10 mg 7-02 by mouth ity of tablet 18:08: daily. [place] [address] Medical Branch aspirin 325 0 Yes 325mg [...] 7-02 by mouth ity of 18:08: at [place] 23 bedtime. Medical Branch cloNIDine 0 Yes .1mg Take 0.1 Univ ers 0.1 mg 7-02 mg by ity of tablet 18:08: mouth 3 [place] 23 (three) Medical times Branch daily. apixaban 0 Yes 2.5mg Take 2.5 Univ ers (ELIQUIS) 7-02 mg by ity of 2.5 mg 18:08: mouth 2 [place] [facility] 23 (two) Medical times Branch daily. omeprazole 0 Yes 40mg Take 40 mg U nivers 40 mg 7-02 by mouth ity of capsule 18:08: daily. [place] [address] Medical Branch lisinopriL Yes 5mg Take 5 mg Un alma 5 mg tablet 7-02 by mouth ity of 18:08: daily. [place] [address] Medical Branch finasteride Yes 5mg Take 5 mg U nivers 5 mg tablet 7-02 by mouth ity of 18:08: daily. [address] Branch amLODIPine Yes 10mg Take 10 mg U nivers 10 mg 7-02 by mouth ity of tablet 18:08: daily. [place] [address] Medical Branch aspirin 325 Yes 325mg Take [...] 7-02 by mouth ity of 18:08: at [place] [address] bedtime. Medical Branch cloNIDine Yes .1mg Take 0.1 Univ ers 0.1 mg 7-02 mg by ity of tablet 18:08: mouth 3 [place] [address] (three) Medical times Branch daily. apixaban Yes 2.5mg Take 2.5 Univ ers (ELIQUIS) 7-02 mg by ity of 2.5 mg 18:08: mouth 2 [facility] 23 (two) Medical times Branch daily. omeprazole Yes 40mg Take 40 mg U nivers 40 mg 7-02 by mouth ity of capsule 18:08: daily. [place] [address] Medical Branch lisinopriL Yes 5mg Take 5 mg Un alma 5 mg tablet 7-02 by mouth ity of 18:08: daily. [place] [address] Medical Branch finasteride Yes 5mg Take 5 mg U nivers 5 mg tablet 7-02 by mouth ity of 18:08: daily. [address] Branch amLODIPine Yes 10mg Take 10 mg U nivers 10 mg 7-02 by mouth ity of tablet 18:08: daily. [address] Branch aspirin 325 Yes 325mg Take 325 [...] 7-02 by mouth ity of 18:08: at [place] 23 bedtime. Medical Branch cloNIDine Yes .1mg Take 0.1 Univ ers 0.1 mg 7-02 mg by ity of tablet 18:08: mouth 3 [place] 23 (three) Medical times Branch daily. apixaban Yes 2.5mg Take 2.5 Univ ers (ELIQUIS) 7-02 mg by ity of 2.5 mg 18:08: mouth 2 [place] [facility] 23 (two) Medical times Branch daily. omeprazole Yes 40mg Take 40 mg U nivers 40 mg 7-02 by mouth ity of capsule 18:08: daily. [place] [address] Medical Branch lisinopriL Yes 5mg Take 5 mg Un alma 5 mg tablet 7-02 by mouth ity of 18:08: daily. [place] [address] Medical Branch finasteride Yes 5mg Take 5 mg U nivers 5 mg tablet 7-02 by mouth ity of 18:08: daily. [place] [address] Medical Branch amLODIPine Yes 10mg Take 10 mg U nivers 10 mg 7-02 by mouth ity of tablet 18:08: daily. [place] [address] Medical Branch aspirin 325 Yes 325mg Take [...] 7-02 by mouth ity of 18:08: at [place] 23 bedtime. Medical Branch cloNIDine 2021-0 Yes .1mg Take 0.1 Univ ers 0.1 mg 7-02 mg by ity of tablet 18:08: mouth 3 [place] 23 (three) Medical times Branch daily. apixaban Yes 2.5mg Take 2.5 Univ ers (ELIQUIS) 7-02 mg by ity of 2.5 mg 18:08: mouth 2 [place] tablet 23 (two) Medical times Branch daily. omeprazole 0 Yes 40mg Take 40 mg U nivers 40 mg 7-02 by mouth ity of capsule 18:08: daily. [place] [address] Medical Branch lisinopriL 0 Yes 5mg Take 5 mg Un alma 5 mg tablet 7-02 by mouth ity of 18:08: daily. [place] [address] Medical Branch finasteride 0 Yes 5mg Take 5 mg U nivers 5 mg tablet 7-02 by mouth ity of 18:08: daily. [address] Branch amLODIPine Yes 10mg Take 10 mg U nivers 10 mg 7-02 by mouth ity of tablet 18:08: daily. [place] [address] Medical Branch aspirin 325 0 Yes 325mg [...] 7-02 by mouth ity of 18:08: at [place] 23 bedtime. Medical Branch cloNIDine 0 Yes .1mg Take 0.1 Univ ers 0.1 mg 7-02 mg by ity of tablet 18:08: mouth 3 [place] 23 (three) Medical times Branch daily. apixaban 0 Yes 2.5mg Take 2.5 Univ ers (ELIQUIS) 7-02 mg by ity of 2.5 mg 18:08: mouth 2 [place] [facility] 23 (two) Medical times Branch daily. omeprazole 0 Yes 40mg Take 40 mg U nivers 40 mg 7-02 by mouth ity of capsule 18:08: daily. [place] [address] Medical Branch lisinopriL Yes 5mg Take 5 mg Un alma 5 mg tablet 7-02 by mouth ity of 18:08: daily. [place] [address] Medical Branch finasteride Yes 5mg Take 5 mg U nivers 5 mg tablet 7-02 by mouth ity of 18:08: daily. [place] [address] Medical Branch amLODIPine Yes 10mg Take 10 mg U nivers 10 mg 7-02 by mouth ity of tablet 18:08: daily. [place] [address] Medical Branch aspirin 325 0 Yes 325mg [...] 7-02 by mouth ity of 18:08: at [place] [address] bedtime. Medical Branch cloNIDine Yes .1mg Take 0.1 Univ ers 0.1 mg 7-02 mg by ity of tablet 18:08: mouth 3 [place] [address] (three) Medical times Branch daily. apixaban Yes 2.5mg Take 2.5 Univ ers (ELIQUIS) 7-02 mg by ity of 2.5 mg 18:08: mouth 2 [facility] 23 (two) Medical times Branch daily. omeprazole Yes 40mg Take 40 mg U nivers 40 mg 7-02 by mouth ity of capsule 18:08: daily. [place] [address] Medical Branch lisinopriL Yes 5mg Take 5 mg Un alma 5 mg tablet 7-02 by mouth ity of 18:08: daily. [place] [address] Medical Branch finasteride Yes 5mg Take 5 mg U nivers 5 mg tablet 7-02 by mouth ity of 18:08: daily. [place] [address] Medical Branch Dutasteride Yes Take by Un alma -Tamsulosin 7-02 mouth. ity of 0.5-0.4 mg 18:08: [place] [facility] 22 Medical Branch Dutasteride Yes Take by Un alma -Tamsulosin 12-29 mouth. ity of 0.5-0.4 mg 18:08: [address] Branch Dutasteride Yes Take by Un alma -Tamsulosin 12-29 mouth. ity of 0.5-0.4 mg 18:08: [place] [address] Medical Branch Dutasteride Yes Take by Un alma -Tamsulosin 12-29 mouth. ity of 0.5-0.4 mg 18:08: [address] Branch Dutasteride Yes Take by Un alma -Tamsulosin 12-29 mouth. ity of 0.5-0.4 mg 18:08: [address] Branch Dutasteride Yes Take by Un alma -Tamsulosin 12-29 mouth. ity of 0.5-0.4 mg 18:08: [address] Branch Dutasteride Yes Take by Un alma -Tamsulosin 12-29 mouth. ity of 0.5-0.4 mg 18:08: [address] Branch Dutasteride Yes Take by Un alma -Tamsulosin 12-29 mouth. ity of 0.5-0.4 mg 18:08: [address] tamsulosin 2020- No .4mg QD Take [...] daily for 4 days. traMADoL 2020- [place] [address] 50mg Q6H Take 50 mg M ethodi [...] by mouth ity of tablet 18:24: daily. [place] [address] Medical Branch aspirin 325 Yes 325mg Take [...] by mouth ity of tablet 18:24: daily. [place] [address] Medical Branch aspirin 325 Yes 325mg Take [...] Besylate Besylate [facility] - Patient s Medical [place] Aspirin Aspirin Yes Daily [facility] (Aspir 81) (Aspir 81) Tal es - 81 Mg 81 Mg Patient TABLET.DR SHIPLEY.DR lino [facility] Hydrochloro Hydrochloro Yes 12.[address] thiazide thiazide [facility] - (Hydrochlor (Hydrochlor P atient othiazide*) othiazide*) s 25 Mg 25 Mg Medical TABLET TABLET Center Tamsulosin Tamsulosin Yes .[address] Hcl [facility]cl [facility] - (Flomax*) (Flomax*) Patie nt 0.4 Mg CAP 0.4 Mg CAP [facility] Vital Signs Vital Name Observation Time Observation Value Comments Source Systolic blood 2021-01-16 07:00:00 187 mm[Hg] Univer [facility] Diastolic blood 2021-01-16 07:00:00 90 mm[Hg] [facility] Heart rate 2021-01-16 07:00:00 76 /min [facility] Respiratory rate 2021-01-16 07:00:00 20 /min [facility] Oxygen saturation in 2021-01-16 07:00:00 97 /min [facility] Arterial blood by [facility] Pulse oximetry Branch Body temperature 2021-01-16 04:24:00 37.06 Ayana [facility] Body weight 2021-01-16 04:24:00 58.968 kg [facility] BMI 2021-01-16 04:24:00 22.31 kg/m2 [facility] Systolic blood 2021-01-11 02:55:00 175 mm[Hg] [facility] blood 2021-01-11 02:55:00 85 mm[Hg] Unive rsity of pressure [place] [facility] Heart rate 2021-01-11 02:55:00 73 /min [facility] [place] [facility] Respiratory rate 2021-01-11 02:55:00 16 /min Univ ers[facility] [place] [facility] Oxygen saturation in 2021-01-11 02:55:00 96 /min University of Arterial blood by [facility] Pulse oximetry Branch Body temperature 2021-01-10 23:48:00 37.22 Ayana [facility] [place] [facility] Body weight 2021-01-10 23:48:00 58.968 kg [facility] [place] [facility] BMI 2021-01-10 23:48:00 22.31 kg/m2 [facility] [place] [facility] Systolic blood 2020-12-29 18:08:00 132 mm[Hg] Univer sity of pressure [place] [facility] Diastolic blood 2020-12-29 18:08:00 65 mm[Hg] Unive rsity of pressure [place] [facility] Heart rate 2020-12-29 18:03:00 65 /min [facility] [place] [facility] Body temperature 2020-12-29 18:03:00 36.44 Ayana [facility] [place] [facility] Respiratory rate 2020-12-29 18:03:00 16 /min Univ ers[facility] [place] [facility] Body height 2020-12-29 18:03:00 162.6 cm [facility] [place] [facility] Body weight 2020-12-29 18:03:00 59.013 kg [facility] [place] [facility] BMI 2020-12-29 18:03:00 22.33 kg/m2 [facility] [place] [facility] Oxygen saturation in 2020-12-29 18:03:00 98 /min University of Arterial blood by [facility] Pulse oximetry Branch Systolic blood 2020-12-29 18:08:00 132 mm[Hg] Univer sity of pressure [place] [facility] Diastolic blood 2020-12-29 18:08:00 65 mm[Hg] Unive rsity of pressure [place] [facility] Heart rate 2020-12-29 18:03:00 65 /min [facility] [place] [facility] Body temperature 2020-12-29 18:03:00 36.44 Ayana [facility] [place] [facility] Respiratory rate 2020-12-29 18:03:00 16 /min Univ ers[facility] [place] [facility] Body height 2020-12-29 18:03:00 162.6 cm [facility] Body weight 2020-12-29 18:03:00 59.013 kg [facility] BMI 2020-12-29 18:03:00 22.33 kg/m2 [facility] Oxygen saturation in 2020-12-29 18:03:00 98 /min University Arterial blood by [facility] Pulse oximetry [place] Heart rate 2021-02-23 17:45:00 55 /min [facility] Respiratory rate 2021-02-23 17:45:00 20 /min [facility] Oxygen saturation in 2021-02-23 17:45:00 99 /min [facility] Arterial blood by Pulse oximetry Systolic blood 2021-02-23 16:34:54 158 mm[Hg] [facility] pressure Diastolic blood 2021-02-23 16:34:54 75 mm[Hg] [facility] pressure Body temperature 2021-02-23 16:34:54 36.61 Ayana [facility] Body weight 2021-02-21 10:06:00 59.467 kg [facility] BMI 2021-02-21 10:06:00 22.50 kg/m2 [facility] Body height 2021-02-20 11:07:00 162.6 cm [facility] BP Diastolic 2020-09-28 12:46:00 76 mm[Hg] [facility] BP Systolic 2020-09-28 12:46:00 149 mm[Hg] [facility] Oxygen saturation by 2020-09-28 12:46:00 99 /min [facility] - Pulse oximetry Patients [facility] Heart Rate 2020-09-28 12:46:00 85 /min [...] /min [facility] Body Temperature 2020-09-28 08:42:00 97.4 [degF] [facility] BP Diastolic 2020-09-28 08:42:00 60 mm[Hg] [facility] BP Systolic 2020-09-28 08:42:00 141 mm[Hg] [facility] Oxygen saturation by 2020-09-28 08:42:00 96 /min [facility] - Pulse oximetry Patients [facility] BP Diastolic 2020-09-28 08:36:00 60 mm[Hg] [facility] BP Systolic 2020-09-28 08:36:00 141 mm[Hg] [facility] Oxygen saturation by 2020-09-28 08:36:00 96 /min [facility] - Pulse oximetry Patients [facility] Heart Rate 2020-09-28 08:36:00 81 /min [facility] Respiratory rate 2020-09-28 08:36:00 24 /min [facility] Body Temperature 2020-09-28 08:36:00 97.4 [degF] [facility] Oxygen saturation by 2020-09-28 08:17:00 96 /min [facility] - Pulse oximetry Patients [facility] Heart Rate 2020-09-28 08:17:00 80 /min [facility] Respiratory rate 2020-09-28 08:17:00 20 /min [facility] Oxygen saturation by 2020-09-28 07:49:00 96 /min [facility] - Pulse oximetry Patients [facility] Heart Rate 2020-09-28 07:49:00 80 /min [facility] Respiratory rate 2020-09-28 07:49:00 20 /min [facility] BP Diastolic 2020-09-28 04:00:00 41 mm[Hg] [facility] BP Systolic 2020-09-28 04:00:00 107 mm[Hg] [facility] Oxygen saturation by 2020-09-28 04:00:00 96 /min [facility] - Pulse oximetry Patients [facility] Heart Rate 2020-09-28 04:00:00 85 /min [facility] Respiratory rate 2020-09-28 04:00:00 20 /min [facility] Body Temperature 2020-09-28 04:00:00 97.7 [degF] [facility] Oxygen saturation by 2020-09-28 02:48:00 98 /min [facility] - Pulse oximetry Patients [facility] Heart Rate 2020-09-28 02:48:00 85 /min [facility] Respiratory rate 2020-09-28 02:48:00 18 /min [facility] Oxygen saturation by 2020-09-28 02:40:00 95 /min [facility] - Pulse oximetry Patients [facility] Heart Rate 2020-09-28 02:40:00 87 /min [...] [facility] - Pulse oximetry Patients [facility] Heart Rate 2020-09-28 00:00:00 92 /min [...] [facility] - Pulse oximetry Patients [facility] Heart Rate 2020-09-27 20:00:00 99 /min [facility] Respiratory rate 2020-09-27 20:00:00 18 /min [facility] Body Temperature 2020-09-27 20:00:00 98.1 [degF] [facility] Oxygen saturation by 2020-09-27 19:53:00 100 /min [facility] - Pulse oximetry Patients [facility] Heart Rate 2020-09-27 19:53:00 96 /min [facility] Respiratory rate 2020-09-27 19:53:00 18 /min [facility] Oxygen saturation by 2020-09-27 19:45:00 97 /min [facility] - Pulse oximetry Patients [facility] Heart Rate 2020-09-27 19:45:00 99 /min [...] [facility] - Pulse oximetry Patients [facility] Heart Rate 2020-09-27 15:21:00 103 /min [facility] Respiratory rate 2020-09-27 15:21:00 20 /min [facility] Body Temperature 2020-09-27 15:21:00 98.5 [degF] [facility] Oxygen saturation by 2020-09-27 14:45:00 99 /min [facility] - Pulse oximetry Patients [facility] Heart Rate 2020-09-27 14:45:00 103 /min [facility] Respiratory rate 2020-09-27 14:45:00 20 /min [facility] Oxygen saturation by 2020-09-27 14:30:00 95 /min [facility] - Pulse oximetry Patients [facility] Heart Rate 2020-09-27 14:30:00 103 /min [...] [facility] - Pulse oximetry Patients [facility] Heart Rate 2020-09-27 11:13:00 88 /min [...] [facility] - Pulse oximetry Patients [facility] Heart Rate 2020-09-27 08:15:00 105 /min [...] 116 mm[Hg] [facility] Oxygen saturation by 2020-09-27 07:58:00 95 /min [facility] - Pulse oximetry Patients [facility] Heart Rate 2020-09-27 07:58:00 105 /min [facility] Respiratory rate 2020-09-27 07:58:00 16 /min [facility] Body Temperature 2020-09-27 07:58:00 97.6 [degF] [facility] Oxygen saturation by 2020-09-27 07:15:00 99 /min [facility] Patients [facility] Heart Rate 2020-09-27 07:15:00 105 /min [facility] Respiratory rate 2020-09-27 07:15:00 16 /min [facility] Oxygen saturation by 2020-09-27 07:00:00 95 /min [facility] Heart Rate 2020-09-27 07:00:00 105 /min [facility] Respiratory rate 2020-09-27 07:00:00 16 /min [facility] Oxygen saturation by 2020-09-27 00:05:00 100 /min [facility] Heart Rate 2020-09-27 00:05:00 91 /min [facility] Respiratory rate 2020-09-27 00:05:00 20 /min [facility] Oxygen saturation by 2020-09-26 23:50:00 98 /min [facility] Heart Rate 2020-09-26 23:50:00 89 /min [...] [facility] Heart Rate 2020-09-26 20:36:00 84 /min [...] BP Systolic 2020-09-26 20:00:00 142 mm[Hg] [facility] Oxygen saturation by 2020-09-26 20:00:00 100 /min [facility] Heart Rate 2020-09-26 20:00:00 89 /min [facility] Respiratory rate 2020-09-26 20:00:00 21 /min [facility] Body Temperature 2020-09-26 20:00:00 98.3 [degF] [facility] BP Diastolic 2020-09-26 16:11:00 75 mm[Hg] [facility] BP Systolic 2020-09-26 16:11:00 151 mm[Hg] [facility] Oxygen saturation by 2020-09-26 16:11:00 100 /min [facility] Heart Rate 2020-09-26 16:11:00 89 /min [facility] Respiratory rate 2020-09-26 16:11:00 21 /min [facility] Body Temperature 2020-09-26 16:11:00 98.3 [degF] [facility] Oxygen saturation by 2020-09-26 13:10:00 96 /min [facility] Heart Rate 2020-09-26 13:10:00 94 /min [facility] Respiratory rate 2020-09-26 13:10:00 16 /min [facility] Oxygen saturation by 2020-09-26 12:55:00 96 /min [facility] Patients [facility] Heart Rate 2020-09-26 12:55:00 94 /min [facility] Respiratory rate 2020-09-26 12:55:00 16 /min [facility] Oxygen saturation by 2020-09-26 12:35:00 96 /min [facility] Patients [facility] Heart Rate 2020-09-26 12:35:00 94 /min [facility] Respiratory rate 2020-09-26 12:35:00 16 /min [facility] BP Diastolic 2020-09-26 12:12:00 66 mm[Hg] [facility] BP Systolic 2020-09-26 12:12:00 113 mm[Hg] [facility] Oxygen saturation by 2020-09-26 12:12:00 98 /min [facility] Heart Rate 2020-09-26 12:12:00 100 /min [facility] Respiratory rate 2020-09-26 12:12:00 26 /min [facility] Body Temperature 2020-09-26 12:12:00 98.0 [degF] [facility] BP Diastolic 2020-09-26 09:22:00 59 mm[Hg] [facility] BP Systolic 2020-09-26 09:22:00 113 mm[Hg] [facility] Oxygen saturation by 2020-09-26 09:22:00 98 /min [facility] Heart Rate 2020-09-26 09:22:00 99 /min [facility] Respiratory rate 2020-09-26 09:22:00 26 /min [facility] Body Temperature 2020-09-26 09:22:00 97.4 [degF] [facility] Oxygen saturation by 2020-09-26 08:50:00 98 /min [facility] Heart Rate 2020-09-26 08:50:00 99 /min [facility] Respiratory rate 2020-09-26 08:50:00 26 /min [facility] Oxygen saturation by 2020-09-26 08:35:00 98 /min [facility] Heart Rate 2020-09-26 08:35:00 99 /min [...] [facility] Heart Rate 2020-09-26 07:58:00 99 /min [...] [facility] Heart Rate 2020-09-26 04:00:00 99 /min [facility] Respiratory rate 2020-09-26 04:00:00 20 /min [facility] Body Temperature 2020-09-26 04:00:00 97.0 [degF] [facility] Oxygen saturation by 2020-09-25 20:08:00 100 /min [facility] Heart Rate 2020-09-25 20:08:00 97 /min [facility] Respiratory rate 2020-09-25 20:08:00 20 /min [facility] BP Diastolic 2020-09-25 20:00:00 61 mm[Hg] [facility] BP Systolic 2020-09-25 20:00:00 124 mm[Hg] [facility] Oxygen saturation by 2020-09-25 20:00:00 97 /min [facility] Heart Rate 2020-09-25 20:00:00 99 /min [facility] Respiratory rate 2020-09-25 20:00:00 18 /min [facility] Body Temperature 2020-09-25 20:00:00 97.9 [degF] [facility] Oxygen saturation by 2020-09-25 19:53:00 97 /min [facility] Patients [facility] Heart Rate 2020-09-25 19:53:00 94 /min [...] [facility] Patients [facility] Heart Rate 2020-09-25 15:48:00 99 /min [facility] Respiratory rate 2020-09-25 15:48:00 18 /min [facility] Body Temperature 2020-09-25 15:48:00 98.0 [degF] [facility] Oxygen saturation by 2020-09-25 12:40:00 97 /min [facility] Heart Rate 2020-09-25 12:40:00 109 /min [facility] Respiratory rate 2020-09-25 12:40:00 16 /min [facility] Oxygen saturation by 2020-09-25 12:39:00 97 /min [facility]ulse [facility] Patients [facility] Heart Rate 2020-09-25 12:39:00 98 /min [facility] Respiratory rate 2020-09-25 12:39:00 22 /min [facility] BP Diastolic 2020-09-25 11:14:00 72 mm[Hg] [facility] BP Systolic 2020-09-25 11:14:00 98 mm[Hg] [facility] Oxygen saturation by 2020-09-25 11:14:00 100 /min [facility] Heart Rate 2020-09-25 11:14:00 98 /min [...] [facility] Patients [facility] Heart Rate 2020-09-25 09:18:00 96 /min [facility] Respiratory rate 2020-09-25 09:18:00 18 /min [facility] Body Temperature 2020-09-25 09:18:00 97.9 [degF] [facility] Oxygen saturation by 2020-09-25 08:35:00 98 /min [facility] Patients [facility] Heart Rate 2020-09-25 08:35:00 96 /min [facility] Respiratory rate 2020-09-25 08:35:00 18 /min [facility] Oxygen saturation by 2020-09-25 08:20:00 98 /min [facility] Patients [facility] Heart Rate 2020-09-25 08:20:00 96 /min [...] [facility] Heart Rate 2020-09-25 07:33:00 96 /min [...] [facility] Patients [facility] Heart Rate 2020-09-25 04:00:00 83 /min [...] BP Systolic 2020-09-24 23:59:00 151 mm[Hg] [facility] Oxygen saturation by 2020-09-24 23:59:00 99 /min [facility]ulse [facility] Patients [facility] Heart Rate 2020-09-24 23:59:00 97 /min [...] [facility] Patients [facility] Heart Rate 2020-09-24 20:32:00 112 /min [facility] Respiratory rate 2020-09-24 20:32:00 18 /min [facility] Body Temperature 2020-09-24 20:32:00 97.7 [degF] [facility] Oxygen saturation by 2020-09-24 20:25:00 98 /min [facility]ulse [facility] Patients [facility] Heart Rate 2020-09-24 20:25:00 100 /min [facility] Respiratory rate 2020-09-24 20:25:00 20 /min [facility] Oxygen saturation by 2020-09-24 20:10:00 95 /min [facility] Pulse [facility]etry Patients [facility] Heart Rate 2020-09-24 20:10:00 102 /min [facility] Respiratory rate 2020-09-24 20:10:00 20 /min [facility] BP Diastolic 2020-09-24 20:00:00 92 mm[Hg] [facility] BP Systolic 2020-09-24 20:00:00 165 mm[Hg] [facility] Oxygen saturation by 2020-09-24 20:00:00 94 /min [facility] Patients [facility] Heart Rate 2020-09-24 20:00:00 112 /min [...] [facility] Patients [facility] Heart Rate 2020-09-24 17:13:00 94 /min [facility] Respiratory rate 2020-09-24 17:13:00 16 /min [facility] Body Temperature 2020-09-24 17:13:00 97.7 [degF] [facility] Oxygen saturation by 2020-09-24 14:00:00 100 /min [facility]ulse [facility] Patients [facility] Heart Rate 2020-09-24 14:00:00 94 /min [facility] Respiratory rate 2020-09-24 14:00:00 16 /min [facility] Oxygen saturation by 2020-09-24 13:45:00 100 /min [facility] Patients [facility] Heart Rate 2020-09-24 13:45:00 94 /min [...] [facility] Patients [facility] Heart Rate 2020-09-24 08:41:00 94 /min [...] BP Systolic 2020-09-24 08:30:00 142 mm[Hg] [facility] Oxygen saturation by 2020-09-24 08:30:00 95 /min [facility]ulse [facility] Patients [facility] Heart Rate 2020-09-24 08:30:00 94 /min [facility] Respiratory rate 2020-09-24 08:30:00 18 /min [facility] Body Temperature 2020-09-24 08:30:00 98.6 [degF] [facility] Oxygen saturation by 2020-09-24 06:50:00 100 /min [facility] Patients [facility] Heart Rate 2020-09-24 06:50:00 91 /min [facility] Respiratory rate 2020-09-24 06:50:00 16 /min [facility] Oxygen saturation by 2020-09-24 06:35:00 97 /min [facility] Heart Rate 2020-09-24 06:35:00 87 /min [facility] Respiratory rate 2020-09-24 06:35:00 16 /min [facility] BP Diastolic 2020-09-24 04:00:00 64 mm[Hg] [facility] BP Systolic 2020-09-24 04:00:00 137 mm[Hg] [facility] Oxygen saturation by 2020-09-24 04:00:00 96 /min [facility]ulse [facility] Patients [facility] Heart Rate 2020-09-24 04:00:00 88 /min [facility] Respiratory rate 2020-09-24 04:00:00 18 /min [facility] Body Temperature 2020-09-24 04:00:00 97.7 [degF] [facility] Oxygen saturation by 2020-09-24 01:18:00 97 /min [facility] Heart Rate 2020-09-24 01:18:00 91 /min [facility] Respiratory rate 2020-09-24 01:18:00 18 /min [facility] Oxygen saturation by 2020-09-24 01:10:00 94 /min [facility]ulse [facility] Patients [facility] Heart Rate 2020-09-24 01:10:00 89 /min [...] [facility] Patients [facility] Heart Rate 2020-09-24 00:00:00 92 /min [...] [facility] Heart Rate 2020-09-23 21:42:00 105 /min [...] [facility] Patients [facility] Heart Rate 2020-09-23 20:00:00 105 /min [facility] Respiratory rate 2020-09-23 20:00:00 18 /min [facility] Body Temperature 2020-09-23 20:00:00 97.9 [degF] [facility] Oxygen saturation by 2020-09-23 19:18:00 99 /min [facility]ulse [facility] Patients [facility] Heart Rate 2020-09-23 19:18:00 101 /min [facility] Respiratory rate 2020-09-23 19:18:00 22 /min [facility] Oxygen saturation by 2020-09-23 19:10:00 94 /min [facility]ulse [facility] Patients [facility] Heart Rate 2020-09-23 19:10:00 98 /min [facility] Respiratory rate 2020-09-23 19:10:00 20 /min [facility] BP Diastolic 2020-09-23 16:11:00 64 mm[Hg] [facility] BP Systolic 2020-09-23 16:11:00 135 mm[Hg] [facility] Oxygen saturation by 2020-09-23 16:11:00 97 /min [facility] Patients [facility] Heart Rate 2020-09-23 16:11:00 96 /min [facility] Respiratory rate 2020-09-23 16:11:00 18 /min [facility] Body Temperature 2020-09-23 16:11:00 97.8 [degF] [facility] Oxygen saturation by 2020-09-23 14:15:00 98 /min [facility] Heart Rate 2020-09-23 14:15:00 83 /min [facility] Respiratory rate 2020-09-23 14:15:00 20 /min [facility] Oxygen saturation by 2020-09-23 14:00:00 98 /min [facility] Patients [facility] Heart Rate 2020-09-23 14:00:00 83 /min [facility] Respiratory rate 2020-09-23 14:00:00 20 /min [facility] BP Diastolic 2020-09-23 08:50:00 63 mm[Hg] [facility] BP Systolic 2020-09-23 08:50:00 142 mm[Hg] [facility] Oxygen saturation by 2020-09-23 08:50:00 98 /min [facility] Heart Rate 2020-09-23 08:50:00 94 /min [facility] Respiratory rate 2020-09-23 08:50:00 18 /min [facility] Body Temperature 2020-09-23 08:50:00 97.3 [degF] [facility] BP Diastolic 2020-09-23 08:39:00 63 mm[Hg] [facility] BP Systolic 2020-09-23 08:39:00 142 mm[Hg] [facility] Oxygen saturation by 2020-09-23 08:39:00 100 /min [facility]ulse [facility] Patients [facility] Heart Rate 2020-09-23 08:39:00 94 /min [facility] Respiratory rate 2020-09-23 08:39:00 18 /min [facility] Body Temperature 2020-09-23 08:39:00 97.4 [degF] [facility] Oxygen saturation by 2020-09-23 06:45:00 100 /min [facility] Patients [facility] Heart Rate 2020-09-23 06:45:00 94 /min [facility] Respiratory rate 2020-09-23 06:45:00 18 /min [facility] Oxygen saturation by 2020-09-23 06:30:00 100 /min [facility]ulse [facility] Patients [facility] Heart Rate 2020-09-23 06:30:00 94 /min [facility] Respiratory rate 2020-09-23 06:30:00 18 /min [facility] BP Diastolic 2020-09-23 04:30:00 75 mm[Hg] [facility] BP Systolic 2020-09-23 04:30:00 168 mm[Hg] [facility] Oxygen saturation by 2020-09-23 04:30:00 98 /min [facility] Heart Rate 2020-09-23 04:30:00 87 /min [facility] Respiratory rate 2020-09-23 04:30:00 18 /min [facility] Body Temperature 2020-09-23 04:30:00 97.6 [degF] [facility] Oxygen saturation by 2020-09-23 00:40:00 94 /min [facility] Patients [facility] Heart Rate 2020-09-23 00:40:00 81 /min [facility] Respiratory rate 2020-09-23 00:40:00 20 /min [facility] BP Diastolic 2020-09-23 00:23:00 76 mm[Hg] [facility] BP Systolic 2020-09-23 00:23:00 141 mm[Hg] [facility] Oxygen saturation by 2020-09-23 00:23:00 94 /min [facility] Heart Rate 2020-09-23 00:23:00 81 /min [...] [facility] Heart Rate 2020-09-22 20:04:00 95 /min [facility] Respiratory rate 2020-09-22 20:04:00 18 /min [facility] Body Temperature 2020-09-22 20:04:00 97.6 [degF] [facility] Oxygen saturation by 2020-09-22 20:02:00 98 /min [facility] Heart Rate 2020-09-22 20:02:00 94 /min [facility] Respiratory rate 2020-09-22 20:02:00 20 /min [facility] Oxygen saturation by 2020-09-22 19:47:00 96 /min [facility] Heart Rate 2020-09-22 19:47:00 95 /min [facility] Respiratory rate 2020-09-22 19:47:00 20 /min [facility] Oxygen saturation by 2020-09-22 15:48:00 100 /min [facility] Heart Rate 2020-09-22 15:48:00 89 /min [...] [facility] Heart Rate 2020-09-22 15:40:00 90 /min [facility] Respiratory rate 2020-09-22 15:40:00 22 /min [facility] Body Temperature 2020-09-22 15:40:00 97.6 [degF] [facility] Oxygen saturation by 2020-09-22 15:33:00 96 /min [facility] Heart Rate 2020-09-22 15:33:00 88 /min [facility] Respiratory rate 2020-09-22 15:33:00 24 /min [facility] BP Diastolic 2020-09-22 11:44:00 65 mm[Hg] [facility] BP Systolic 2020-09-22 11:44:00 165 mm[Hg] [facility] Oxygen saturation by 2020-09-22 11:44:00 100 /min [facility] Heart Rate 2020-09-22 11:44:00 81 /min [facility] Respiratory rate 2020-09-22 11:44:00 23 /min [facility] Body Temperature 2020-09-22 11:44:00 97.9 [degF] [facility] Oxygen saturation by 2020-09-22 11:25:00 100 /min [facility] Heart Rate 2020-09-22 11:25:00 88 /min [facility] Oxygen saturation by 2020-09-22 11:10:00 96 /min [facility] Heart Rate 2020-09-22 11:10:00 84 /min [facility] Respiratory rate 2020-09-22 11:10:00 24 /min [facility] BP Diastolic 2020-09-22 09:27:00 61 mm[Hg] [facility] BP Systolic 2020-09-22 09:27:00 165 mm[Hg] [facility] Oxygen saturation by 2020-09-22 09:27:00 94 /min [facility] Heart Rate 2020-09-22 09:27:00 84 /min [facility] Respiratory rate 2020-09-22 09:27:00 22 /min [facility] Body Temperature 2020-09-22 09:27:00 98.0 [degF] [facility] BP Systolic 2020-09-22 08:00:00 165 mm[Hg] [facility] Oxygen saturation by 2020-09-22 08:00:00 94 /min [facility] Heart Rate 2020-09-22 08:00:00 84 /min [facility] Respiratory rate 2020-09-22 08:00:00 22 /min [facility] Body Temperature 2020-09-22 08:00:00 98.0 [degF] [facility] BP Diastolic 2020-09-22 08:00:00 61 mm[Hg] [facility] BP Diastolic 2020-09-22 03:50:00 72 mm[Hg] [facility] BP Systolic 2020-09-22 03:50:00 144 mm[Hg] [facility] Oxygen saturation by 2020-09-22 03:50:00 97 /min [facility] Heart Rate 2020-09-22 03:50:00 93 /min [facility] Respiratory rate 2020-09-22 03:50:00 24 /min [facility] Body Temperature 2020-09-22 03:50:00 97.9 [degF] [facility] Oxygen saturation by 2020-09-22 02:17:00 100 /min [facility] Heart Rate 2020-09-22 02:17:00 92 /min [facility] Respiratory rate 2020-09-22 02:17:00 20 /min [facility] Oxygen saturation by 2020-09-22 02:02:00 100 /min [facility] Heart Rate 2020-09-22 02:02:00 88 /min [...] [facility] Heart Rate 2020-09-22 00:02:00 72 /min [...] BP Systolic 2020-09-21 20:07:00 147 mm[Hg] [facility] Oxygen saturation by 2020-09-21 20:07:00 96 /min [facility] [facility] Rate 2020-09-21 20:07:00 84 /min [facility] Respiratory rate 2020-09-21 20:07:00 24 /min [facility] Body Temperature 2020-09-21 20:07:00 98.6 [degF] [facility] Oxygen saturation by 2020-09-21 20:02:00 97 /min [facility] Heart Rate 2020-09-21 20:02:00 80 /min [facility] Respiratory rate 2020-09-21 20:02:00 18 /min [facility] BP Diastolic 2020-09-21 20:00:00 96 mm[Hg] [facility] BP Systolic 2020-09-21 20:00:00 135 mm[Hg] [facility] Oxygen saturation by 2020-09-21 20:00:00 95 /min [facility] Heart Rate 2020-09-21 20:00:00 78 /min [...] [facility] Heart Rate 2020-09-21 16:00:00 78 /min [...] [facility] Heart Rate 2020-09-21 13:02:00 70 /min [facility] Respiratory rate 2020-09-21 13:02:00 18 /min [facility] Body Temperature 2020-09-21 13:02:00 98.3 [degF] [facility] Oxygen saturation by 2020-09-21 10:15:00 96 /min [facility] Heart Rate 2020-09-21 10:15:00 72 /min [facility] Respiratory rate 2020-09-21 10:15:00 18 /min [facility] BP Diastolic 2020-09-21 09:08:00 63 mm[Hg] [facility] BP Systolic 2020-09-21 09:08:00 150 mm[Hg] [facility] Oxygen saturation by 2020-09-21 09:08:00 95 /min [facility] Heart Rate 2020-09-21 09:08:00 63 /min [facility] Respiratory rate 2020-09-21 09:08:00 [...] [facility] Heart Rate 2020-09-21 08:58:00 63 /min [facility] Respiratory rate 2020-09-21 08:58:00 17 /min [facility] Body Temperature 2020-09-21 08:58:00 98.0 [degF] [facility] BP Diastolic 2020-09-21 07:38:00 63 mm[Hg] [facility] BP Systolic 2020-09-21 07:38:00 150 mm[Hg] [facility] Oxygen saturation by 2020-09-21 07:38:00 95 /min [facility] Heart Rate 2020-09-21 07:38:00 63 /min [facility] Respiratory rate 2020-09-21 07:38:00 17 /min [facility] Body Temperature 2020-09-21 07:38:00 98.0 [degF] [facility] BP Diastolic 2020-09-21 04:00:00 70 mm[Hg] [facility] BP Systolic 2020-09-21 04:00:00 149 mm[Hg] [facility] Oxygen saturation by 2020-09-21 04:00:00 94 /min [facility] Heart Rate 2020-09-21 04:00:00 73 /min [facility] Respiratory rate 2020-09-21 04:00:00 21 /min [facility] Body Temperature 2020-09-21 04:00:00 97.0 [degF] [facility] BP Diastolic 2020-09-21 00:00:00 66 mm[Hg] [facility] BP Systolic 2020-09-21 00:00:00 143 mm[Hg] [facility] Oxygen saturation by 2020-09-21 00:00:00 95 /min [facility] Heart Rate 2020-09-21 00:00:00 76 /min [facility] Respiratory rate 2020-09-21 00:00:00 21 /min [facility] Body Temperature 2020-09-21 00:00:00 98.2 [degF] [facility] BP Diastolic 2020-09-20 20:00:00 69 mm[Hg] [facility] BP Systolic 2020-09-20 20:00:00 155 mm[Hg] [facility] Oxygen saturation by 2020-09-20 20:00:00 94 /min [facility] Heart Rate 2020-09-20 20:00:00 72 /min [facility] Respiratory rate 2020-09-20 20:00:00 20 /min [facility] Body Temperature 2020-09-20 20:00:00 98.1 [degF] [facility] Oxygen saturation by 2020-09-20 19:53:00 99 /min [facility] Heart Rate 2020-09-20 19:53:00 72 /min [facility] Respiratory rate 2020-09-20 19:53:00 16 /min [facility] Oxygen saturation by 2020-09-20 19:45:00 96 /min [facility] Heart Rate 2020-09-20 19:45:00 75 /min [facility] Respiratory rate 2020-09-20 19:45:00 18 /min [facility] BP Diastolic 2020-09-20 16:36:00 69 mm[Hg] [facility] BP Systolic 2020-09-20 16:36:00 155 mm[Hg] [facility] Oxygen saturation by 2020-09-20 16:36:00 97 /min [facility] Heart Rate 2020-09-20 16:36:00 73 /min [...] BP Systolic 2020-09-20 15:47:00 133 mm[Hg] [facility] Oxygen saturation by 2020-09-20 15:47:00 94 /min [facility] Heart Rate 2020-09-20 15:47:00 71 /min [facility] Respiratory rate 2020-09-20 15:47:00 19 /min [facility] Body Temperature 2020-09-20 15:47:00 98.1 [degF] [facility] BP Diastolic 2020-09-20 11:55:00 60 mm[Hg] [facility] BP Systolic 2020-09-20 11:55:00 133 mm[Hg] [facility] Oxygen saturation by 2020-09-20 11:55:00 94 /min [facility] Heart Rate 2020-09-20 11:55:00 71 /min [...] [facility] Heart Rate 2020-09-20 09:06:00 86 /min [...] BP Systolic 2020-09-20 08:58:00 145 mm[Hg] [facility] Oxygen saturation by 2020-09-20 08:58:00 99 /min [facility] Heart Rate 2020-09-20 08:58:00 86 /min [...] BP Systolic 2020-09-20 08:55:00 145 mm[Hg] [facility] Oxygen saturation by 2020-09-20 08:55:00 99 /min [facility] Heart Rate 2020-09-20 08:55:00 86 /min [...] [facility] Heart Rate 2020-09-20 07:38:00 71 /min [facility] Respiratory rate 2020-09-20 07:38:00 19 /min [facility] Body Temperature 2020-09-20 07:38:00 98.4 [degF] [facility] Oxygen saturation by 2020-09-20 07:05:00 95 /min [facility] Heart Rate 2020-09-20 07:05:00 82 /min [facility] Respiratory rate 2020-09-20 07:05:00 18 /min [facility] BP Diastolic 2020-09-20 04:00:00 61 mm[Hg] [facility] BP Systolic 2020-09-20 04:00:00 145 mm[Hg] [facility] Oxygen saturation by 2020-09-20 04:00:00 96 /min [facility] Heart Rate 2020-09-20 04:00:00 66 /min [...] [facility] Heart Rate 2020-09-20 00:00:00 66 /min [...] [facility] Heart Rate 2020-09-19 21:46:00 80 /min [facility] Respiratory rate 2020-09-19 21:46:00 18 /min [facility] Body Temperature 2020-09-19 21:46:00 97.4 [degF] [facility] Oxygen saturation by 2020-09-19 20:09:00 95 /min [facility] Heart Rate 2020-09-19 20:09:00 82 /min [...] [facility] Heart Rate 2020-09-19 20:00:00 80 /min [...] [facility] Heart Rate 2020-09-19 15:41:00 80 /min [...] [facility] Heart Rate 2020-09-19 12:14:00 84 /min [...] [facility] Heart Rate 2020-09-19 11:26:00 88 /min [facility] Respiratory rate 2020-09-19 11:26:00 16 /min [facility] Body Temperature 2020-09-19 11:26:00 98.6 [degF] [facility] Oxygen saturation by 2020-09-19 08:10:00 93 /min [facility] Heart Rate 2020-09-19 08:10:00 97 /min [facility] Respiratory rate 2020-09-19 08:10:00 20 /min [facility] BP Diastolic 2020-09-19 07:37:00 91 mm[Hg] [facility] BP Systolic 2020-09-19 07:37:00 168 mm[Hg] [facility] Oxygen saturation by 2020-09-19 07:37:00 97 /min [facility] Heart Rate 2020-09-19 07:37:00 83 /min [facility] Respiratory rate 2020-09-19 07:37:00 21 /min [facility] Body Temperature 2020-09-19 07:37:00 98.1 [degF] [facility] BP Diastolic 2020-09-19 07:17:00 91 mm[Hg] [facility] [place] BP Systolic 2020-09-19 07:17:00 168 mm[Hg] [facility] Oxygen saturation by 2020-09-19 07:17:00 97 /min [facility] Heart Rate 2020-09-19 07:17:00 83 /min [facility] Respiratory rate 2020-09-19 07:17:00 21 /min [facility] [place] Body Temperature 2020-09-19 07:17:00 98.1 [degF] [facility] BP Diastolic 2020-09-19 05:03:00 97 mm[Hg] [facility] BP Systolic 2020-09-19 05:03:00 157 mm[Hg] [facility] Oxygen saturation by 2020-09-19 05:03:00 93 /min [facility] Heart Rate 2020-09-19 05:03:00 91 /min [...] BP Systolic 2020-09-19 01:59:00 200 mm[Hg] [facility] Oxygen saturation by 2020-09-19 01:59:00 96 /min [facility] Heart Rate 2020-09-19 01:59:00 92 /min [facility] Respiratory rate 2020-09-19 01:59:00 18 /min [facility] Body Temperature 2020-09-19 01:59:00 97.7 [degF] [facility] BP Diastolic 2020-09-18 22:57:00 86 mm[Hg] [facility] BP Systolic 2020-09-18 22:57:00 158 mm[Hg] [facility] Oxygen saturation by 2020-09-18 22:57:00 96 /min [facility] Heart Rate 2020-09-18 22:57:00 68 /min [facility] Respiratory rate 2020-09-18 22:57:00 18 /min [facility] Body Temperature 2020-09-18 22:57:00 97.7 [degF] [facility] BP Diastolic 2020-09-18 21:58:00 86 mm[Hg] [facility] BP Systolic 2020-09-18 21:58:00 158 mm[Hg] [facility] Oxygen saturation by 2020-09-18 21:58:00 96 /min [facility] Heart Rate 2020-09-18 21:58:00 68 /min [facility] Respiratory rate 2020-09-18 21:58:00 18 /min [facility] Body Temperature 2020-09-18 21:58:00 97.7 [degF] [facility] Oxygen saturation by 2020-09-18 21:16:00 93 /min [facility] Heart Rate 2020-09-18 21:16:00 97 /min [facility] Respiratory rate 2020-09-18 21:16:00 20 /min [facility] BP Diastolic 2020-09-18 15:41:00 70 mm[Hg] [facility] BP Systolic 2020-09-18 15:41:00 163 mm[Hg] [facility] Oxygen saturation by 2020-09-18 15:41:00 98 /min [facility] Heart Rate 2020-09-18 15:41:00 84 /min [facility] Respiratory rate 2020-09-18 15:41:00 21 /min [facility] Body Temperature 2020-09-18 15:41:00 98.6 [degF] [facility] BP Diastolic 2020-09-18 13:00:00 73 mm[Hg] [facility] BP Systolic 2020-09-18 13:00:00 160 mm[Hg] [facility] Oxygen saturation by 2020-09-18 13:00:00 96 /min [facility] Heart Rate 2020-09-18 13:00:00 86 /min [...] [facility] Heart Rate 2020-09-18 12:00:00 85 /min [...] BP Systolic 2020-09-18 11:00:00 168 mm[Hg] [facility] Oxygen saturation by 2020-09-18 11:00:00 96 /min [facility] Heart Rate 2020-09-18 11:00:00 86 /min [facility] Respiratory rate 2020-09-18 11:00:00 24 /min [facility] BP Diastolic 2020-09-18 10:00:00 79 mm[Hg] [facility] BP Systolic 2020-09-18 10:00:00 150 mm[Hg] [facility] Oxygen saturation by 2020-09-18 10:00:00 96 /min [facility] Heart Rate 2020-09-18 10:00:00 80 /min [...] [facility] Heart Rate 2020-09-18 09:00:00 86 /min [facility] Respiratory rate 2020-09-18 09:00:00 18 /min [facility] Body Temperature 2020-09-18 09:00:00 97.7 [degF] [facility] BP Diastolic 2020-09-18 08:00:00 70 mm[Hg] [facility] BP Systolic 2020-09-18 08:00:00 146 mm[Hg] [facility] Oxygen saturation by 2020-09-18 08:00:00 96 /min [facility] Heart Rate 2020-09-18 08:00:00 86 /min [facility] Respiratory rate 2020-09-18 08:00:00 15 /min [facility] BP Diastolic 2020-09-18 07:51:00 80 mm[Hg] [facility] BP Systolic 2020-09-18 07:51:00 141 mm[Hg] [facility] Oxygen saturation by 2020-09-18 07:51:00 96 /min [facility] Heart Rate 2020-09-18 07:51:00 86 /min [facility] Respiratory rate 2020-09-18 07:51:00 17 /min [facility] Body Temperature 2020-09-18 07:51:00 97.7 [degF] [facility] Oxygen saturation by 2020-09-18 07:35:00 97 /min [facility] Heart Rate 2020-09-18 07:35:00 85 /min [...] [facility] Heart Rate 2020-09-18 07:00:00 86 /min [...] [facility] Heart Rate 2020-09-18 06:00:00 95 /min [facility] Respiratory rate 2020-09-18 06:00:00 21 /min [facility] BP Diastolic 2020-09-18 05:00:00 77 mm[Hg] [facility] BP Systolic 2020-09-18 05:00:00 158 mm[Hg] [facility] Oxygen saturation by 2020-09-18 05:00:00 96 /min [facility] Heart Rate 2020-09-18 05:00:00 86 /min [facility] Respiratory rate 2020-09-18 05:00:00 18 /min [facility] BP Diastolic 2020-09-18 04:00:00 74 mm[Hg] [facility] BP Systolic 2020-09-18 04:00:00 150 mm[Hg] [facility] Oxygen saturation by 2020-09-18 04:00:00 96 /min [facility] Heart Rate 2020-09-18 04:00:00 76 /min [facility] Respiratory rate 2020-09-18 04:00:00 17 /min [facility] BP Diastolic 2020-09-18 03:00:00 88 mm[Hg] [facility] BP Systolic 2020-09-18 03:00:00 157 mm[Hg] [facility] Oxygen saturation by 2020-09-18 03:00:00 97 /min [facility] Heart Rate 2020-09-18 03:00:00 89 /min [facility] Respiratory rate 2020-09-18 03:00:00 15 /min [facility] BP Diastolic 2020-09-18 02:00:00 80 mm[Hg] [facility] BP Systolic 2020-09-18 02:00:00 145 mm[Hg] [facility] Oxygen saturation by 2020-09-18 02:00:00 96 /min [facility] Heart Rate 2020-09-18 02:00:00 95 /min [facility] Respiratory rate 2020-09-18 02:00:00 16 /min [facility] BP Diastolic 2020-09-18 01:00:00 73 mm[Hg] [facility] BP Systolic 2020-09-18 01:00:00 144 mm[Hg] [facility] Oxygen saturation by 2020-09-18 01:00:00 97 /min [facility] Heart Rate 2020-09-18 01:00:00 84 /min [facility] Respiratory rate 2020-09-18 01:00:00 19 /min [facility] BP Diastolic 2020-09-18 00:00:00 68 mm[Hg] [facility] BP Systolic 2020-09-18 00:00:00 144 mm[Hg] [facility] Oxygen saturation by 2020-09-18 00:00:00 97 /min [facility] Heart Rate 2020-09-18 00:00:00 89 /min [facility] Respiratory rate 2020-09-18 00:00:00 18 /min [facility] Body Temperature 2020-09-18 00:00:00 98.3 [degF] [facility] BP Diastolic 2020-09-17 23:00:00 89 mm[Hg] [facility] BP Systolic 2020-09-17 23:00:00 145 mm[Hg] [facility] Oxygen saturation by 2020-09-17 23:00:00 96 /min [facility] Heart Rate 2020-09-17 23:00:00 90 /min [facility] Respiratory rate 2020-09-17 23:00:00 20 /min [facility] BP Diastolic 2020-09-17 22:03:00 67 mm[Hg] [facility] BP Systolic 2020-09-17 22:03:00 134 mm[Hg] [facility] Oxygen saturation by 2020-09-17 22:03:00 96 /min [facility] Heart Rate 2020-09-17 22:03:00 90 /min [facility] Respiratory rate 2020-09-17 22:03:00 18 /min [facility] BP Diastolic 2020-09-17 21:00:00 62 mm[Hg] [facility] BP Systolic 2020-09-17 21:00:00 117 mm[Hg] [facility] Oxygen saturation by 2020-09-17 21:00:00 96 /min [facility] Heart Rate 2020-09-17 21:00:00 97 /min [facility] Respiratory rate 2020-09-17 21:00:00 19 /min [facility] Oxygen saturation by 2020-09-17 20:08:00 96 /min [facility] Heart Rate 2020-09-17 20:08:00 95 /min [...] [facility] Heart Rate 2020-09-17 20:00:00 105 /min [...] [facility] Heart Rate 2020-09-17 19:00:00 102 /min [...] BP Systolic 2020-09-17 18:00:00 146 mm[Hg] [facility] Oxygen saturation by 2020-09-17 18:00:00 95 /min [facility] Heart Rate 2020-09-17 18:00:00 97 /min [facility] Respiratory rate 2020-09-17 18:00:00 18 /min [facility] BP Diastolic 2020-09-17 17:00:00 73 mm[Hg] [facility] BP Systolic 2020-09-17 17:00:00 134 mm[Hg] [facility] Oxygen saturation by 2020-09-17 17:00:00 94 /min [facility] Heart Rate 2020-09-17 17:00:00 106 /min [facility] Respiratory rate 2020-09-17 17:00:00 26 /min [facility] BP Diastolic 2020-09-17 16:00:00 83 mm[Hg] [facility] BP Systolic 2020-09-17 16:00:00 184 mm[Hg] [facility] Oxygen saturation by 2020-09-17 16:00:00 92 /min [facility] Heart Rate 2020-09-17 16:00:00 96 /min [facility] Respiratory rate 2020-09-17 16:00:00 32 /min [facility] Body Temperature 2020-09-17 16:00:00 98.6 [degF] [facility] Oxygen saturation by 2020-09-17 15:28:00 94 /min [facility] Heart Rate 2020-09-17 15:28:00 83 /min [facility] Respiratory rate 2020-09-17 15:28:00 26 /min [facility] Oxygen saturation by 2020-09-17 15:27:00 94 /min [facility] [place] [facility] Heart Rate 2020-09-17 15:27:00 83 /min [facility] Respiratory rate 2020-09-17 15:27:00 26 /min [facility] BP Diastolic 2020-09-17 15:00:00 84 mm[Hg] [facility] BP Systolic 2020-09-17 15:00:00 181 mm[Hg] [facility] Oxygen saturation by 2020-09-17 15:00:00 98 /min [facility] Heart Rate 2020-09-17 15:00:00 93 /min [facility] Respiratory rate 2020-09-17 15:00:00 24 /min [facility] Oxygen saturation by 2020-09-17 14:59:00 94 /min [facility] Heart Rate 2020-09-17 14:59:00 84 /min [...] [facility] Heart Rate 2020-09-17 14:00:00 109 /min [facility] Respiratory rate 2020-09-17 14:00:00 29 /min [facility] BP Diastolic 2020-09-17 13:00:00 87 mm[Hg] [facility] BP Systolic 2020-09-17 13:00:00 171 mm[Hg] [facility] Oxygen saturation by 2020-09-17 13:00:00 92 /min [facility] Heart Rate 2020-09-17 13:00:00 112 /min [facility] Respiratory rate 2020-09-17 13:00:00 28 /min [facility] BP Diastolic 2020-09-17 12:00:00 75 mm[Hg] [facility] BP Systolic 2020-09-17 12:00:00 132 mm[Hg] [facility] Oxygen saturation by 2020-09-17 12:00:00 92 /min [facility] Heart Rate 2020-09-17 12:00:00 112 /min [facility] Respiratory rate 2020-09-17 12:00:00 26 /min [facility] BP Diastolic 2020-09-17 11:00:00 80 mm[Hg] [facility] BP Systolic 2020-09-17 11:00:00 148 mm[Hg] [facility] Oxygen saturation by 2020-09-17 11:00:00 92 /min [facility] Heart Rate 2020-09-17 11:00:00 119 /min [...] BP Systolic 2020-09-17 09:00:00 175 mm[Hg] [facility] Oxygen saturation by 2020-09-17 09:00:00 97 /min [facility] Heart Rate 2020-09-17 09:00:00 88 /min [...] [facility] Heart Rate 2020-09-17 08:00:00 85 /min [...] [facility] Heart Rate 2020-09-17 07:00:00 84 /min [facility] Respiratory rate 2020-09-17 07:00:00 15 /min [facility] BP Diastolic 2020-09-17 06:00:00 87 mm[Hg] [facility] BP Systolic 2020-09-17 06:00:00 159 mm[Hg] [facility] Oxygen saturation by 2020-09-17 06:00:00 96 /min [facility] Heart Rate 2020-09-17 06:00:00 83 /min [facility] Respiratory rate 2020-09-17 06:00:00 15 /min [facility] BP Diastolic 2020-09-17 05:00:00 74 mm[Hg] [facility] BP Systolic 2020-09-17 05:00:00 160 mm[Hg] [facility] Oxygen saturation by 2020-09-17 05:00:00 96 /min [facility] Heart Rate 2020-09-17 05:00:00 84 /min [facility] Respiratory rate 2020-09-17 05:00:00 16 /min [facility] BP Diastolic 2020-09-17 04:00:00 85 mm[Hg] [facility] BP Systolic 2020-09-17 04:00:00 155 mm[Hg] [facility] Oxygen saturation by 2020-09-17 04:00:00 96 /min [facility] Heart Rate 2020-09-17 04:00:00 86 /min [...] [facility] Heart Rate 2020-09-17 03:00:00 90 /min [facility] Respiratory rate 2020-09-17 03:00:00 18 /min [facility] Body Temperature 2020-09-17 03:00:00 97.6 [degF] [facility] BP Diastolic 2020-09-17 02:00:00 75 mm[Hg] [facility] BP Systolic 2020-09-17 02:00:00 154 mm[Hg] [facility] Oxygen saturation by 2020-09-17 02:00:00 95 /min [facility] Heart Rate 2020-09-17 02:00:00 88 /min [facility] Respiratory rate 2020-09-17 02:00:00 18 /min [facility] BP Diastolic 2020-09-17 01:00:00 79 mm[Hg] [facility] BP Systolic 2020-09-17 01:00:00 144 mm[Hg] [facility] Oxygen saturation by 2020-09-17 01:00:00 94 /min [facility] Heart Rate 2020-09-17 01:00:00 88 /min [...] [facility] Heart Rate 2020-09-17 00:00:00 92 /min [facility] Respiratory rate 2020-09-17 00:00:00 26 /min [facility] Oxygen saturation by 2020-09-16 23:05:00 95 /min [facility] Heart Rate 2020-09-16 23:05:00 77 /min [facility] Respiratory rate 2020-09-16 23:05:00 17 /min [facility] BP Diastolic 2020-09-16 23:00:00 123 mm[Hg] [facility] BP Systolic 2020-09-16 23:00:00 212 mm[Hg] [facility] Oxygen saturation by 2020-09-16 23:00:00 97 /min [facility] Heart Rate 2020-09-16 23:00:00 83 /min [facility] Respiratory rate 2020-09-16 23:00:00 23 /min [facility] Body Temperature 2020-09-16 23:00:00 97.1 [degF] [facility] BP Diastolic 2020-09-16 22:12:00 76 mm[Hg] [facility] BP Systolic 2020-09-16 22:12:00 137 mm[Hg] [facility] Heart Rate 2020-09-16 22:12:00 80 /min [facility] BP Diastolic 2020-09-16 22:06:00 82 mm[Hg] [facility] BP Systolic 2020-09-16 22:06:00 176 mm[Hg] [facility] Oxygen saturation by 2020-09-16 22:06:00 96 /min [facility] Heart Rate 2020-09-16 22:06:00 82 /min [facility] Respiratory rate 2020-09-16 22:06:00 18 /min [facility] BP Diastolic 2020-09-16 22:03:00 81 mm[Hg] [facility] BP Systolic 2020-09-16 22:03:00 201 mm[Hg] [facility] Oxygen saturation by 2020-09-16 22:03:00 96 /min [facility] Heart Rate 2020-09-16 22:03:00 84 /min [facility] Respiratory rate 2020-09-16 22:03:00 22 /min [facility] BP Diastolic 2020-09-16 22:00:00 86 mm[Hg] [facility] BP Systolic 2020-09-16 22:00:00 206 mm[Hg] [facility] Oxygen saturation by 2020-09-16 22:00:00 96 /min [facility] Heart Rate 2020-09-16 22:00:00 86 /min [facility] Respiratory rate 2020-09-16 22:00:00 19 /min [facility] BP Diastolic 2020-09-16 21:01:00 69 mm[Hg] [facility] BP Systolic 2020-09-16 21:01:00 153 mm[Hg] [facility] Oxygen saturation by 2020-09-16 21:01:00 96 /min [facility] Heart Rate 2020-09-16 21:01:00 85 /min [facility] Respiratory rate 2020-09-16 21:01:00 17 /min [facility] BP Diastolic 2020-09-16 20:44:00 111 mm[Hg] [facility] BP Systolic 2020-09-16 20:44:00 141 mm[Hg] [facility] Oxygen saturation by 2020-09-16 20:44:00 96 /min [facility] Heart Rate 2020-09-16 20:44:00 84 /min [facility] Respiratory rate 2020-09-16 20:44:00 21 /min [facility] Body Temperature 2020-09-16 20:44:00 98.0 [degF] [facility] BP Diastolic 2020-09-16 20:42:00 111 mm[Hg] [facility] BP Systolic 2020-09-16 20:42:00 141 mm[Hg] [facility] Heart Rate 2020-09-16 20:42:00 84 /min [facility] BP Diastolic 2020-09-16 20:24:00 66 mm[Hg] [facility] BP Systolic 2020-09-16 20:24:00 163 mm[Hg] [facility] Heart Rate 2020-09-16 20:24:00 84 /min [facility] BP Diastolic 2020-09-16 20:00:00 88 mm[Hg] [facility] BP Systolic 2020-09-16 20:00:00 185 mm[Hg] [facility] Oxygen saturation by 2020-09-16 20:00:00 96 /min [facility] Heart Rate 2020-09-16 20:00:00 96 /min [facility] Respiratory rate 2020-09-16 20:00:00 21 /min [facility] Body Temperature 2020-09-16 20:00:00 98.0 [degF] [facility] Oxygen saturation by 2020-09-16 19:40:00 96 /min [facility] Heart Rate 2020-09-16 19:40:00 105 /min [facility] Respiratory rate 2020-09-16 19:40:00 27 /min [facility] BP Diastolic 2020-09-16 16:00:00 90 mm[Hg] [facility] BP Systolic 2020-09-16 16:00:00 175 mm[Hg] [facility] Oxygen saturation by 2020-09-16 16:00:00 96 /min [facility] Heart Rate 2020-09-16 16:00:00 108 /min [facility] Respiratory rate 2020-09-16 16:00:00 36 /min [facility] Body Temperature 2020-09-16 16:00:00 98.5 [degF] [facility] BP Diastolic 2020-09-16 13:00:00 73 mm[Hg] [facility] BP Systolic 2020-09-16 13:00:00 149 mm[Hg] [facility] Oxygen saturation by 2020-09-16 13:00:00 2 /min [facility] Heart Rate 2020-09-16 13:00:00 90 /min [...] [facility] Heart Rate 2020-09-16 12:00:00 101 /min [facility] Respiratory rate 2020-09-16 12:00:00 32 /min [facility] [place] Body Temperature 2020-09-16 12:00:00 97.8 [degF] [facility] Oxygen saturation by 2020-09-16 11:00:00 96 /min [facility] Heart Rate 2020-09-16 11:00:00 79 /min [facility] Respiratory rate 2020-09-16 11:00:00 19 /min [...] BP Systolic 2020-09-16 10:00:00 166 mm[Hg] [facility] Oxygen saturation by 2020-09-16 10:00:00 95 /min [facility] Heart Rate 2020-09-16 10:00:00 82 /min [facility] Respiratory rate 2020-09-16 10:00:00 20 [...] [facility] Heart Rate 2020-09-16 09:00:00 82 /min [facility] Respiratory rate 2020-09-16 09:00:00 20 /min [facility] BP Diastolic 2020-09-16 08:00:00 77 mm[Hg] [facility] BP Systolic 2020-09-16 08:00:00 197 mm[Hg] [facility] Oxygen saturation by 2020-09-16 08:00:00 94 /min [facility] Heart Rate 2020-09-16 08:00:00 79 /min [...] [facility] Heart Rate 2020-09-16 07:00:00 73 /min [...] [facility] Heart Rate 2020-09-16 06:00:00 87 /min [...] [facility] Heart Rate 2020-09-16 05:00:00 89 /min [facility] Respiratory rate 2020-09-16 05:00:00 22 /min [facility] BP Diastolic 2020-09-16 04:00:00 71 mm[Hg] [facility] BP Systolic 2020-09-16 04:00:00 139 mm[Hg] [facility] Oxygen saturation by 2020-09-16 04:00:00 96 /min [facility] Heart Rate 2020-09-16 04:00:00 85 /min [...] [facility] Heart Rate 2020-09-16 03:00:00 82 /min [...] [facility] Heart Rate 2020-09-16 02:00:00 83 /min [facility] Respiratory rate 2020-09-16 02:00:00 17 /min [facility] BP Diastolic 2020-09-16 01:00:00 70 mm[Hg] [facility] BP Systolic 2020-09-16 01:00:00 164 mm[Hg] [facility] Oxygen saturation by 2020-09-16 01:00:00 96 /min [facility] Heart Rate 2020-09-16 01:00:00 84 /min [facility] Respiratory rate 2020-09-16 01:00:00 20 /min [facility] BP Diastolic 2020-09-16 00:00:00 86 mm[Hg] [facility] BP Systolic 2020-09-16 00:00:00 173 mm[Hg] [facility] Oxygen saturation by 2020-09-16 00:00:00 94 /min [facility] Heart Rate 2020-09-16 00:00:00 77 /min [...] [facility] Heart Rate 2020-09-15 23:00:00 79 /min [facility] Respiratory rate 2020-09-15 23:00:00 18 /min [facility] BP Diastolic 2020-09-15 22:00:00 55 mm[Hg] [facility] BP Systolic 2020-09-15 22:00:00 133 mm[Hg] [facility] Oxygen saturation by 2020-09-15 22:00:00 94 /min [facility] Heart Rate 2020-09-15 22:00:00 78 /min [facility] Respiratory rate 2020-09-15 22:00:00 17 /min [facility] BP Diastolic 2020-09-15 21:00:00 56 mm[Hg] [facility] BP Systolic 2020-09-15 21:00:00 145 mm[Hg] [facility] Oxygen saturation by 2020-09-15 21:00:00 93 /min [facility] Heart Rate 2020-09-15 21:00:00 79 /min [facility] Respiratory rate 2020-09-15 21:00:00 17 /min [facility] Oxygen saturation by 2020-09-15 20:50:00 94 /min [facility] Heart Rate 2020-09-15 20:50:00 81 /min [facility] Respiratory rate 2020-09-15 20:50:00 18 /min [facility] BP Diastolic 2020-09-15 20:00:00 56 mm[Hg] [facility] BP Systolic 2020-09-15 20:00:00 165 mm[Hg] [facility] Oxygen saturation by 2020-09-15 20:00:00 97 /min [facility] Heart Rate 2020-09-15 20:00:00 76 /min [facility] Respiratory rate 2020-09-15 20:00:00 22 /min [facility] Oxygen saturation by 2020-09-15 19:00:00 96 /min [facility] Respiratory rate 2020-09-15 19:00:00 14 /min [facility] Body Temperature 2020-09-15 19:00:00 98.7 [degF] [facility] BP Diastolic 2020-09-15 18:00:00 115 mm[Hg] [facility] BP Systolic 2020-09-15 18:00:00 154 mm[Hg] [facility] Oxygen saturation by 2020-09-15 18:00:00 94 /min [facility] Heart Rate 2020-09-15 18:00:00 79 /min [facility] Respiratory rate 2020-09-15 18:00:00 19 /min [facility] BP Diastolic 2020-09-15 17:00:00 65 mm[Hg] [facility] BP Systolic 2020-09-15 17:00:00 154 mm[Hg] [facility] Oxygen saturation by 2020-09-15 17:00:00 95 /min [facility] Heart Rate 2020-09-15 17:00:00 71 /min [facility] Respiratory rate 2020-09-15 17:00:00 18 /min [facility] BP Diastolic 2020-09-15 16:00:00 75 mm[Hg] [facility] BP Systolic 2020-09-15 16:00:00 159 mm[Hg] [facility] Oxygen saturation by 2020-09-15 16:00:00 94 /min [facility] Heart Rate 2020-09-15 16:00:00 75 /min [facility] Respiratory rate 2020-09-15 16:00:00 16 /min [facility] BP Diastolic 2020-09-15 15:14:00 71 mm[Hg] [facility] BP Systolic 2020-09-15 15:14:00 169 mm[Hg] [facility] Oxygen saturation by 2020-09-15 15:14:00 100 /min [facility] Heart Rate 2020-09-15 15:14:00 75 /min [facility] Body Temperature 2020-09-15 15:14:00 97.7 [degF] [facility] BP Diastolic 2020-09-15 15:10:00 66 mm[Hg] [facility] BP Systolic 2020-09-15 15:10:00 156 mm[Hg] [facility] Oxygen saturation by 2020-09-15 15:10:00 100 /min [facility] Heart Rate 2020-09-15 15:10:00 74 /min [facility] Respiratory rate 2020-09-15 15:10:00 18 /min [facility] BP Diastolic 2020-09-15 14:50:00 84 mm[Hg] [facility] BP Systolic 2020-09-15 14:50:00 176 mm[Hg] [facility] [place] Oxygen saturation by 2020-09-15 14:50:00 100 /min [facility] Heart Rate 2020-09-15 14:50:00 81 /min [facility] Respiratory rate 2020-09-15 14:50:00 18 /min [facility] BP Diastolic 2020-09-15 14:40:00 94 mm[Hg] [facility] BP Systolic 2020-09-15 14:40:00 200 mm[Hg] [facility] Oxygen saturation by 2020-09-15 14:40:00 97 /min [facility] Heart Rate 2020-09-15 14:40:00 96 /min [facility] Respiratory rate 2020-09-15 14:40:00 16 /min [facility] BP Diastolic 2020-09-15 14:25:00 96 mm[Hg] [facility] BP Systolic 2020-09-15 14:25:00 175 mm[Hg] [facility] Oxygen saturation by 2020-09-15 14:25:00 98 /min [facility] Heart Rate 2020-09-15 14:25:00 99 /min [facility] Respiratory rate 2020-09-15 14:25:00 16 /min [facility] Body Temperature 2020-09-15 14:25:00 98.0 [degF] [facility] BP Diastolic 2020-09-15 11:14:00 67 mm[Hg] [facility] BP Systolic 2020-09-15 11:14:00 177 mm[Hg] [facility] Oxygen saturation by 2020-09-15 11:14:00 94 /min [facility] Heart Rate 2020-09-15 11:14:00 70 /min [...] 171 mm[Hg] [facility] Oxygen saturation by 2020-09-15 08:52:00 92 /min [facility] Heart Rate 2020-09-15 08:52:00 74 /min [facility] Respiratory rate 2020-09-15 08:52:00 18 /min [facility] Body Temperature 2020-09-15 08:52:00 97.6 [degF] [facility] BP Diastolic 2020-09-15 07:45:00 75 mm[Hg] [facility] BP Systolic 2020-09-15 07:45:00 171 mm[Hg] [facility] Oxygen saturation by 2020-09-15 07:45:00 92 /min [facility] Heart Rate 2020-09-15 07:45:00 74 /min [facility] Respiratory rate 2020-09-15 07:45:00 18 /min [facility] [facility] Body Temperature 2020-09-15 07:45:00 97.6 [degF] [facility] BP Diastolic 2020-09-15 04:00:00 56 mm[Hg] [facility] BP Systolic 2020-09-15 04:00:00 156 mm[Hg] [facility] Oxygen saturation by 2020-09-15 04:00:00 93 /min [facility] Heart Rate 2020-09-15 04:00:00 68 /min [...] BP Systolic 2020-09-15 00:00:00 140 mm[Hg] [facility] Oxygen saturation by 2020-09-15 00:00:00 94 /min [facility] Heart Rate 2020-09-15 00:00:00 72 /min [facility] Respiratory rate 2020-09-15 00:00:00 18 /min [facility] Body Temperature 2020-09-15 00:00:00 98.4 [degF] [facility] BP Diastolic 2020-09-14 20:27:00 80 mm[Hg] [facility] BP Systolic 2020-09-14 20:27:00 180 mm[Hg] [facility] Oxygen saturation by 2020-09-14 20:27:00 92 /min [facility] Heart Rate 2020-09-14 20:27:00 90 /min [facility] Respiratory rate 2020-09-14 20:27:00 20 /min [facility] Body Temperature 2020-09-14 20:27:00 98.5 [degF] [facility] BP Diastolic 2020-09-14 20:00:00 80 mm[Hg] [facility] BP Systolic 2020-09-14 20:00:00 180 mm[Hg] [facility] Oxygen saturation by 2020-09-14 20:00:00 92 /min [facility] Heart Rate 2020-09-14 20:00:00 90 /min [facility] Respiratory rate 2020-09-14 20:00:00 20 /min [facility] Body Temperature 2020-09-14 20:00:00 98.5 [degF] [facility] BP Diastolic 2020-09-14 15:47:00 82 mm[Hg] [facility] BP Systolic 2020-09-14 15:47:00 155 mm[Hg] [facility] Oxygen saturation by 2020-09-14 15:47:00 95 /min [facility] Heart Rate 2020-09-14 15:47:00 85 /min [facility] Respiratory rate 2020-09-14 15:47:00 16 /min [facility] Body Temperature 2020-09-14 15:47:00 98.1 [degF] [facility] BP Diastolic 2020-09-14 11:15:00 73 mm[Hg] [facility] BP Systolic 2020-09-14 11:15:00 165 mm[Hg] [facility] Oxygen saturation by 2020-09-14 11:15:00 93 /min [facility] Heart Rate 2020-09-14 11:15:00 89 /min [facility] Respiratory rate 2020-09-14 11:15:00 19 /min [...] [facility] Heart Rate 2020-09-14 07:49:00 88 /min [facility] Respiratory rate 2020-09-14 07:49:00 18 /min [facility] Body Temperature 2020-09-14 07:49:00 97.9 [degF] [facility] BP Diastolic 2020-09-14 07:31:00 67 mm[Hg] [facility] BP Systolic 2020-09-14 07:31:00 166 mm[Hg] [facility] Oxygen saturation by 2020-09-14 07:31:00 93 /min [facility] Heart Rate 2020-09-14 07:31:00 88 /min [facility] Respiratory rate 2020-09-14 07:31:00 18 /min [facility] Body Temperature 2020-09-14 07:31:00 97.9 [degF] [facility] BP Diastolic 2020-09-14 04:00:00 74 mm[Hg] [facility] BP Systolic 2020-09-14 04:00:00 175 mm[Hg] [facility] Oxygen saturation by 2020-09-14 04:00:00 94 /min [facility] Heart Rate 2020-09-14 04:00:00 94 /min [...] [facility] Heart Rate 2020-09-14 00:00:00 90 /min [...] [facility] Heart Rate 2020-09-13 20:12:00 88 /min [...] [facility] Heart Rate 2020-09-13 20:00:00 88 /min [...] [facility] Heart Rate 2020-09-13 16:11:00 78 /min [...] [facility] Heart Rate 2020-09-13 12:08:00 82 /min [...] [facility] Heart Rate 2020-09-13 11:16:00 79 /min [...] [facility] Heart Rate 2020-09-13 08:45:00 79 /min [...] [facility] Heart Rate 2020-09-13 04:00:00 87 /min [...] [facility] Heart Rate 2020-09-13 00:00:00 76 /min [...] [facility] Heart Rate 2020-09-12 22:28:00 96 /min [...] [facility] Heart Rate 2020-09-12 22:18:00 96 /min [...] [facility] Heart Rate 2020-09-12 20:23:00 95 /min [facility] Respiratory rate 2020-09-12 20:23:00 18 /min [facility] Body Temperature 2020-09-12 20:23:00 97.9 [degF] [facility] Oxygen saturation by 2020-09-12 20:11:00 96 /min [facility] Oxygen saturation by 2020-09-12 18:25:00 98 /min [facility] Oxygen saturation by 2020-09-12 15:35:00 98 /min [facility] Procedures Procedure Date / Time Performing Clinician Source Performed HC COMPLETE BLD COUNT 2021-02-23 09:51:00 [facility] W/AUTO DIFF BASIC METABOLIC PANEL 2021-02-23 09:51:00 [facility] ESTIMATED GFR 2021-02-23 09:51:00 [facility] HC COMPLETE BLD COUNT 2021-02-22 09:32:00 [facility]/AUTO DIFF BASIC METABOLIC PANEL 2021-02-22 09:32:00 [facility] ESTIMATED GFR 2021-02-22 09:32:00 [facility] HC COMPLETE BLD COUNT 2021-02-21 09:50:00 [facility]/AUTO DIFF BASIC METABOLIC PANEL 2021-02-21 09:50:00 [facility] LIPID PANEL 2021-02-21 09:50:00 [facility] ESTIMATED GFR 2021-02-21 09:50:00 [facility] COVID-19 ANTI-SPIKE IGG 2021-02-20 23:58:00 [facility] ANTIBODY TITER COVID-19 SEROLOGY PATIENT 2021-02-20 23:58:00 [facility] SURVEILLANCE THYROID STIMULATING 2021-02-20 23:58:00 [facility] HORMONE T4, FREE 2021-02-20 23:58:00 [facility] FERRITIN LEVEL 2021-02-20 23:58:00 [facility] LDH 2021-02-20 23:58:00 [facility] SEDIMENTATION RATE 2021-02-20 23:58:00 [facility] CRP HIGH SENSITIVITY 2021-02-20 23:58:00 [facility] INTERLEUKIN 6 2021-02-20 23:58:00 [facility] PROCALCITONIN 2021-02-20 23:58:00 [facility] D-DIMER 2021-02-20 23:58:00 [facility] PROTHROMBIN TIME WITH INR 2021-02-20 23:58:00 [facility] TROPONIN, I-STAT 2021-02-20 15:35:00 [facility] COVID-19 QUALITATIVE 2021-02-20 14:41:00 [facility] ANGIOGRAM PE CHEST 2021-02-20 13:52:50 JanethOsmel cornejo [facility] US DUPLEX VENOUS LOWER 2021-02-20 12:59:12 Isaac Quiles [facility] EXTREMITY RIGHT Narendra URINALYSIS 2021-02-20 12:35:00 Isaac Quiles spital Narendra XR CHEST 1 VW PORTABLE 2021-02-20 12:15:13 Isaac Quiles [facility] Narendra BASIC METABOLIC PANEL 2021-02-20 12:10:00 Isaac Quiles [facility] Narendra ESTIMATED GFR 2021-02-20 12:10:00 Isaac Quiles Ho spital Narendra RESPIRATORY PATHOGEN 2021-02-20 12:05[facility]-19 Narendra RT-PCR COMPREHENSIVE METABOLIC 2021-02-20 11:55:00 Isaac Quiles [facility] PANEL Narendra CBC WITH PLATELET AND 2021-02-20 11:55:00 Isaac Quiles [facility] DIFFERENTIAL Narendra CREATINE KINASE, TOTAL 2021-02-20 11:55:00 Isaac Quiles [facility] ([facility]) Narendra TROPONIN, I-STAT 2021-02-20 11:55:00 [facility] 2021-02-20 11:55:00 [facility] Narendra PROTHROMBIN TIME WITH 2021-02-20 11:55:00 Isaac Quiles [facility] INR, I-STAT Narendra MANUAL DIFFERENTIAL 2021-02-20 11:55:00 Isaac Quiles [facility] Narendra ECG 12-LEAD 2021-02-20 11:33:15 Isaac Quiles spital Narendra ECG ED PRELIMINARY 2021-02-20 11:32:10 Isaac Quiles [facility] INTERPRETATION Narendra PHYSICIAN ORDERS 2021-01-24 05:01:00 Doctor Bryson, [facility] CT CERVICAL SPINE WO 2021-01-16 05:11:15 Mumtaz Swanson [facility] CONTRAST Medical Branch CT HEAD WO CONTRAST 2021-01-16 05:11:15 Mumtaz Swanson [facility] [place] NOTICE OF PRIVACY 2021-01-16 04:10:39 Doctor Bryson, [facility] [place] [facility] CT HEAD WO CONTRAST 2021-01-11 01:54:48 Sushma Juarez [facility] [place] CONSENT/REFUSAL FOR 2021-01-10 23:21:01 Doctor Unanancy, [facility] DIAGNOSIS AND TREATMENT [facility] NOTICE OF PRIVACY 2020-12-29 19:06:49 Doctor Unanancy, [facility] CONSENT/REFUSAL FOR 2020-12-29 19:06:[address] [facility] DIAGNOSIS AND TREATMENT [facility] ASSIGNMENT OF BENEFITS 2020-12-29 19:06:04 Doctor Unassrodrigo, [facility] ASSIGNMENT OF BENEFITS 2020-12-29 17:51:14 [facility]igned[facility] HC COMPLETE BLD COUNT 2020-12-03 10:00:00 [facility] W/AUTO DIFF BASIC METABOLIC PANEL 2020-12-03 09:00:00 [facility] ESTIMATED GFR 2020-12-03 09:00:00 [facility] MRI BRAIN WO CONTRAST 2020-12-02 17:48:00 [facility] BASIC METABOLIC PANEL 2020-12-02 08:52:00 [facility] ESTIMATED GFR 2020-12-02 08:52:00 [facility] HC COMPLETE BLD COUNT 2020-12-02 08:38:00 [facility] W/AUTO DIFF US CAROTID DUPLEX 2020-12-01 20:45:00 [facility] BILATERAL TTE COMPLETE, WO 2020-12-01 16:39:21 [facility] CONTRAST, W DOPPLER ([id number]) HC COMPLETE BLD COUNT 2020-12-01 09:30:00 [facility] W/AUTO DIFF BASIC METABOLIC PANEL 2020-12-01 09:00:00 [facility] ESTIMATED GFR 2020-12-01 09:00:00 [facility] LIPID PANEL 2020-12-01 02:15:00 [facility] THYROID STIMULATING 2020-12-01 02:15:00 [facility] HORMONE T4, FREE 2020-12-01 02:15:00 [facility] TROPONIN 2020-12-01 02:15:00 [facility] HEMOGLOBIN A1C 2020-12-01 01:15:00 [facility] URINALYSIS, AUTOMATED 2020-11-30 22:23:00 [facility]CROSCOPY COVID-19 QUALITATIVE 2020-11-30 21:44:00 [facility] RT-PCR CT HEAD WO CONTRAST 2020-11-30 19:03:25 [facility] CT ANGIOGRAM PE CHEST 2020-11-30 19:03:13 [facility] ECG ED PRELIMINARY 2020-11-30 17:08:13 [facility] INTERPRETATION HC COMPLETE BLD COUNT 2020-11-30 16:15:00 [facility] W/AUTO DIFF PROTHROMBIN TIME WITH INR 2020-11-30 16:15:00 [facility] PARTIAL THROMBOPLASTIN 2020-11-30 16:15:00 [facility] TIME (PTT) COMPREHENSIVE METABOLIC 2020-11-30 16:15:00 [facility] PANEL TROPONIN 2020-11-30 16:15:00 [facility] ospital B NATRIURETIC PEPTIDE 2020-11-30 16:15:00 [facility] ESTIMATED GFR 2020-11-30 16:15:00 [facility] D-DIMER 2020-11-30 16:15:00 [facility] ECG 12-LEAD 2020-11-30 15:58:05 [facility] Computed tomography of 2020-09-20 00:00:00 RUSTAM Bruno - chest with contrast Patients [facility] Exploratory laparotomy 2020-09-15 00:00:00 RUSTAM Bruno - [facility] Center CT of abdomen and pelvis 2020-03-02 00:00:00 RUSTAM Arora - without contrast Patients [facility] EXTERNAL PROVIDER RECORDS 2019-01-27 05:01:00 Doctor Unassigned, [facility] [place] [facility] Plan of Care Planned Activity Planned Date Details Comments Source Future Scheduled Test 65+ PNEUMOCOCCAL Me [facility] VACCINE (1 of 2 - PPSV23) [code = 65+ PNEUMOCOCCAL VACCINE (1 of 2 - PPSV23)] Future Scheduled Test COVID-19 VACCINE (1) [facility] [code = COVID-19 VACCINE (1)] Future Scheduled Test SHINGLES VACCINES (#1) [facility] [code = SHINGLES VACCINES (#1)] Future Scheduled Test INFLUENZA VACCINE [code [facility] = INFLUENZA VACCINE] Encounters Start End Encounter Admission Attending Care Care Encounter Source Date/Time Date/Time Type Type Clinicians Facility Department ID 2021-04-30 Emergency [facility] [id number] Univers 09:16:44 [facility] 2021-04-30 Emergency [facility] [id number] Univers 08:16:39 [facility] 2021-06-18 2021-06-18 Outpatient 2030_Biopsy [facility] [id number] [place] 12:38:00 12:38:00 [id number] [facility] 2021-04-11 2021-04-23 Inpatient FIFI [facility] [id number] [place] 00:00:00 00:00:00 ANDREW [address] 2021-04-19 2021-04-19 Inpatient BONI, [facility] [id number] [place] 00:00:00 00:00:00 [address]MED [address] 2021-03-09 2021-03-09 Emergency ALEJOLORY [facility] [id number] [place] 00:00:00 00:00:[address] 2021-02-20 2021-02-23 Hospital FIFI, 1.2.840.1 [id number] [place] 00:00:00 00:00:00 Encounter ANDREW 97433.1.1 [address] .3.129569 .8 2021-02-20 2021-02-20 Travel 1.2.840.1 1.2.867.413 [id number] Methodi 00:00:00 00:00:[address] 3.430.2.7 0.2.7.3.698 Ho spita .3.686411 084.8 l .8 2021-01-30 2021-01-30 Outpatient Rebecca DAHL [facility] [id number] Univers 14:30:00 14:30:00 WONDIMARINA isbell [facility] 2021-01-24 2021-01-24 Clipman Pob, Adc Lab Main [facility] 1.2.8 40.114 [id number] Univers 15:50:12 16:05:12 Visit Anthony, David Sherrill Rivka 350.1.13.1 0 [place] [phone] [place] dical nal 353 Branch [facility] 2021-01-24 2021-01-24 Outpatient R [facility] [id number] Univers 16:00:00 16:00:00 [id number] ity of [facility] 2021-01-24 2021-01-24 [facility] [id number] Univers 16:00:00 16:00:00 DAVID ity [facility] 2021-01-24 2021-01-24 Orders Doctor DAVID 1.2.840.114 [id number] Univers 00:00:00 00:00:00 Only Unassigned, GREGORY 350.1.13.10 [place] [employer] [facility] 4.2.7.2.686 Flash as [phone] [facility] 009 Branch 2021-01-15 2021-01-16 Emergency , [facility] 1.2.473.652 [id number] Univers 23:22:00 03:17:00 Mumtaz Tineo 350.1.13.10 [place] [phone] [facility] 084 Branch 2021-01-10 2021-01-10 Emergency Sagar Holland [facility] 1.2.840.114 [id number] Univers 18:49:00 22:03:00 May Tineo 350.1.13.10 [place] [phone] [facility] 084 Branch 2020-12-29 2020-12-29 Hospital Val, [facility] 1.2.840.114 [id number] Univers 14:04:19 23:59:00 Encounter Melody Tineo 350.1.13.10 [place] [id number] [facility] 807 Branch 2020-12-29 2020-12-29 [facility] 1.2.840.114 [id number] Univers 14:00:00 14:03:00 Encounter Melody Tineo 350.1.13.10 [place] 4.2.7.2.686 [facility] [id number] [facility] 807 [place] 2020-12-29 2020-12-29 Outpatient VAL, [facility] [id number] Univers 14:00:00 14:00:00 [facility]ELODY [id number] [facility] 2020-12-29 2020-12-29 Office [facility] 1.2.840.114 [id number] Univers 12:52:54 13:35:06 Visit Melody [facility] 350.1.13.10 i ty of [place] 4.2.7.2.686 Flash as Professio [id number] Me dical [address] Office [facility] 2020-12-29 2020-12-29 [facility] 1.2.840.114 [id number] 12:52:54 13:35:06 Visit eMlody [facility] 350.1.13.10 [place] 4.2.7.2.686 Professio [id number] [address] 2020-12-29 2020-12-29 [facility] [id number] Univers 13:00:00 13:00:00 MELODY [facility] 2020-12-29 2020-12-29 Orders Doctor DAVID 1.2.840.114 [id number] Univers 00:00:00 00:00:00 Only Unassigned, GREGORY 350.1.13.10 [place] [employer] 4.2.7.2.686 Flash as [id number] [facility] 009 [place] 2020-11-30 2020-12-04 [facility] 1.2.840.1 [id number] [place] 00:00:00 00:00:00 Encounter ANDREW 73698.1.1 [address] .3.025080 .8 2020-11-30 2020-11-30 Travel 1.2.840.1 1.2.194.607 [id number] Methodi 00:00:00 00:00:[address] 3.430.2.7 0.2.7.3.698 Ho spita .3.950025 084.8 l .8 2020-09-12 2020-09-28 Discharged 1 YENY, [facility] [id number] 19:18:00 13:20:00 Inpatient SOUHEIL Patients 99 [facility] 2020-03-02 2020-03-02 Registered 3 YENY, [facility] [id number] 13:32:00 13:32:00 Clinic JEANNINE Patients 29 [facility] 2019-01-27 2019-01-27 Orders Doctor DAVID 1.2.840.114 [id number] Univers 00:00:00 00:00:00 Only Unassigned, GREGORY 350.1.13.10 [place] [employer] 4.2.7.2.686 Flash as [phone] [facility] hemal 009 Branch Results Test Description Test Time Test Comments Results Result Comments Source ECG 12 lead 2021-02-20 17:04:06 Test Item Value Reference Range Interpretation Comme nts Ventricular rate (test code = 253) Atrial rate (test code = 255) LA interval (test code = 266) QRSD interval [...] of 30-NOV-2020 10:58,-No significant [facility] found[facility] [id number] 13:59:27EXAMINATION: CT ANGIOGRAM PE CHEST HISTORY: 89 [...] mild pulmonary edema.[id number] HospitalUs duplex venous lower [id number] 12:59:58EXAMINATION: US DUPLEX VENOUS LOWER EXTREMITY RIGHT [...] lower extremity named vessels as described above. [id number] Interface, Radiology Results 02/20/2021 8:03 AM CDT [...] lower extremity named vessels as described above. [id number] HospitalXR Chest 1 [id number] 12:29:01EXAMINATION: XR CHEST 1 VW PORTABLE CLINICAL [...] HospitalECG ED Preliminary Interpretation - Not an [id number] 11:32:10Osmel Fowler MD 02/20/2021 10:18 AMECG ED Preliminary Interpretation - Not an OrderPerform ed by: Isaac Quiles MDAuthorized by: Isaac Quiles MD Interpretation: Interpretation: non-specific Quality: Tracing quality: Limited by artifactRate: ECG rate: 65 ECG rate assessment: normal Rhythm: Rhythm: sinus rhythm ST segments: ST segments: Non-specificT waves: T waves: non-specificMethodist HospitalCT HEAD WO [id number] 01:56:56 No acute intracranial abnormality. CT HEAD [...] and mastoidair cells are clear. Left pseudophakia. [facility], Radiant Results Inft User - 01/10/2021 [...] cells are clear. Left pseudophakia.IMPRESSIONNo acute intracranial abnormality.[facility] Brain Wo [id number] 18:04:52EXAMINATION: MRI BRAIN WO CONTRAST CLINICAL HISTORY: [...] IMPRESSION: No structural evidence of neurodegenerative disease. [facility]-[id number] Interface, Radiology Results [facility] - 12/02/2020 1:08 PM CDT EXAMINATION: MRI [...] Nonspecific diffuse hypoperfusion.IMPRESSION:No structural evidence of neurodegenerative disease.[id number] HospitalPv carotid [id number] 02:56:00 [facility] Ultrasound Laboratory Carotid Artery Duplex Report [id number] [place] [address] For air quality engineer purposes, the categorization of the degree of the stenosis of this exam is based on criteria described in the IAC carotid stenosis grading white paper( ww w.intersocietal.org/Vascular) and Shakira Angulo., Sherry Ruth., et al. Carotid artery stenosis: davis-scale and Doppler US diagnosis--Society of Radiologists in Ultrasound Consensus Conference. Radiology. 2003 Nov; 229(2):340-6. Pat.Name: JUSTICE HARDY Pat.ID: [id number] .Date: 12/01/2020 Refer.MD: ANDREW CALIX MD Exam Time: 3:19:00 PM Study Type:Carotid Height: 64in Weight: 120lb BSA: 1.58 m2 Age: 7 1930,89Y Sex: MALE Sonogrphr: VINCENZO Leigh Pat. Stat.:Inpatient Room: [facility] 0850-A Tape Vol: GB, CPT - 4: 11360 Echo Event ID:[id number] Order ID: [id number] Reason for Study:Altered mental status. History of [...] 0.621 Signed 12/01/2020 09:56 PMShiva Leahy MD, RPVIInterodessa memorial [facility], Radiology Results In - 12/01/2020 9:57 PM CDT Vascular Ultrasound Laboratory Carotid Artery Duplex Report [id number] [address] For air quality engineer purposes, the categorization of the degree of the stenosis of this examis based on criteria described in the IAC carotid stenosis grading white paper( www.intersocietal.org/Vascular) and Shakira Angulo., Sherry Ruth., et al. Carotid artery stenosis: davis-scale and Doppler US diagnosis--Society of Radiologists in Ultrasound Consensus Conference. Radiology. 2003 Nov; 229(2):340 -6. Pat.Name: JUSTICE HARDY Pat.ID: [id number] .Date: 12/01/2020 Refer.MD: ANDREW CALIX MD Exam Time: 3:19:00 PM Study Type:Carotid Height: 64in Weight: 120lb BSA: 1.58 m2 Age: 7 1930,89Y Sex: MALE Sonogrphr: VINCENZO Leigh. Stat.:Inpatient Room: [address] Tape Vol: GB, CPT - 4: 72663 Echo Event ID:[id number] Order ID: [id number] Reason for Study:Altered mental status. History of [...] 0.621 Signed 12/01/2020 09:56 PMShiva Leahy MD, [facility] Transthoracic Echocardiogram Complete, (w Contrast, Strain and 3D if needed) 2020-12-01 19:37:00 Echocardiography Report [address]Name: JUSTICE HARDY Pat.ID: [id number] .Date: 12/01/2020 Refer.MD: ANDREW CALIX MDExam Time: 10:51:00 AM Study Type:Routine Echo Height: 64in Weight: 120lb BSA: 1.58 m2 Age: 6 1930,89Y Sex: MALE BP: 183/90 HR: 90 bpm Sonogrphr: ROSIE Mishra Pat. Stat.:Inpatient Room: [facility] Study Status:Final Echo Event ID:[id number] ID: [id number] Reason for Study:hx of TAVR History / [...] PA systolic p ressure. MEASUREMENTS: 2DParasternal [place] Ao An 1.9 cm LVPWd0.94 cm Ao [...] 12/01/2020 2:38 PM CDT Echocardiography Report [address] [place] [address] Pat.Name: JUSTICE HARDY Pat.ID: [id number] .Date: 12/01/2020 Refer.MD: ANDREW CALIX MDExam Time: 10:51:00 AM Study Type:Routine Echo Height: 64in Weight: 120lb BSA: 1.58 m2 Age: 7 1930,89Y Sex: MALE BP: 183/90 HR: 90 bpm Sonogrphr: ROSIE Mishra Pat. Stat.:Inpatient Room: [facility] Study Status:Final Echo Event ID:[id number] Order ID: [id number] Reason for Study:hx of TAVR History / [...] estimate PA systolic pressure. MEASUREMENTS: 2DParasternal [place] Ao An 1.9 cm LVPWd 0.94 cm [...] l/m/m2 Signed 12/01/2020 02:37 PMSherif Mara Magdaleno M.D.[facility]lakeCT Head Wo Olpiruhb8636-09-61 19:08:27EXAMINATION: CT HEAD WO CONTRAST CLINICAL HISTORY: [...] cells are clear. IMPRESSION: Noacute intracranial abnormalities. [facility]-[id number] Interface, Radiology Results 11/30/2020 2:11 PM CDT [...] air cells are clear.IMPRESSION:No acute intracranial abnormalities .[facility]-[id number]. [facility] leukocytes automated count (number/volume)2020-09-28 05:25:00 Test Item Value Reference Range Interpretation Comments White Blood Count (test code = 6690-2) 10.37 4.8-10.8 [facility] erythrocytes automated count (number/volume)2020-09-28 05:25:00 Test Item Value Reference Range Interpretation Comments Red Blood Count (test code = 789-8) 3.00 4.3-5.7 [facility]neyBlood hemoglobin measurement (moles/volume)2020-09-28 05:25:00 Test Item Value Reference Range Interpretation Comments Hemoglobin (test code = 45539-7) 9.1 14.0-18.0 [facility] McKinneyAutomated blood hematocrit (volume fraction)2020-09-28 05:25:00 Test Item Value Reference Range Interpretation Comments Hematocrit (test code = 4544-3) 26.0 38.2-49.6 [facility] McKinneyAutomated erythrocyte mean corpuscular quuyvx4307-20-48 05:25:00 Test Item Value Reference Range Interpretation Comments Mean Corpuscular Volume (test code = 86.7 81-99 787-2) [facility] McKinneyAutomated erythrocyte mean corpuscular hemoglobin (mass per erythrocyte)2020-09-28 05:25:00 Test Item Value Reference Range Interpretation Comments Mean Corpuscular Hemoglobin (test code 30.3 28-32 = 785-6) [facility] McKinneyAutomated erythrocyte mean corpuscular hemoglobin concentration measurement (mass/volume)2020-09-28 05:25:00 Test Item Value Reference Range Interpretation Comments Mean Corpuscular Hemoglobin Concent 35.0 31-35 (test code = 786-4) [facility] McKinneyRDW UowNq-Rqn7447-33-01 05:25:00 Test Item Value Reference Range Interpretation Comments Red Cell Distribution Width (test code 16.1 11.7-14.4 = 21796-8) [facility] McKinneyAutomated blood platelet count (count/volume)2020-09-28 05:25:00 Test Item Value Reference Range Interpretation Comments Platelet Count (test code = 777-3) 253 140-360 [facility] McKinneyAutomated blood segmented neutrophil count as percentage of total rzbcvmzcpa7219-11-02 05:25:00 Test Item Value Reference Range Interpretation Comments Neutrophils (%) (Auto) (test code = 77.9 38.7-80.0 83045-0) [facility] McKinneyAutomated blood lymphocyte count as percentage ot total erjupymyaa5760-35-91 05:25:00 Test Item Value Reference Range Interpretation Comments Lymphocytes (%) (Auto) (test code = 12.3 18.0-39.1 736-9) [facility] McKinneyAutomated blood monocyte count as percentage of total lcyutwuhny8701-45-92 05:25:00 Test Item Value Reference Range Interpretation Comments Monocytes (%) (Auto) (test code = 6.4 4.4-11.3 5905-5) [facility] McKinneyAutomated blood eosinophil count as percentage of total psyxdtwvwg3705-39-23 05:25:00 Test Item Value Reference Range Interpretation Comments Eosinophils (%) (Auto) (test code = 1.8 0.0-6.0 713-8) [facility] McKinneyAutomated blood basophil count as percentage of total rhgezscfui9135-31-61 05:25:00 Test Item Value Reference Range Interpretation Comments Basophils (%) (Auto) (test code = 0.4 0.0-1.0 706-2) [facility] McKinneyFluoroscopic procedure less than one hour lbfeccdz8537-43-90 05:25:00 Test Item Value Reference Range Interpretation Comments IM GRANULOCYTES % (test code = IM 1.2 0.0-1.0 GRANULOCYTES %) [facility] McKinneyAutomated blood neutrophil count 2020-09-28 05:25:00 Test Item Value Reference Range Interpretation Comments Neutrophils # (Auto) (test code = 8.1 2.1-6.9 751-8) [facility] McKinneyBlood lymphocytes count (number/volume) 2020-09-28 05:25:00 Test Item Value Reference Range Interpretation Comments Lymphocytes # (Auto) (test code = 1.3 1.0-3.2 70768-1) [facility] McKinneyBlood monocytes automated count (number/volume)2020-09-28 05:25:00 Test Item Value Reference Range Interpretation Comments Monocytes # (Auto) (test code = 742-7) 0.7 0.2-0.8 [facility] McKinneyAutomated blood eosinophil count 2020-09-28 05:25:00 Test Item Value Reference Range Interpretation Comments Eosinophils # (Auto) (test code = 0.2 0.0-0.4 711-2) [facility] McKinneyAutomated blood basophil count (count/volume)2020-09-28 05:25:00 Test Item Value Reference Range Interpretation Comments Basophils # (Auto) (test code = 704-7) 0.0 0.0-0.1 [facility] McKinneyFluoroscopic procedure less than one hour bscjalxc6010-78-56 05:25:00 Test Item Value Reference Range Interpretation Comments Absolute Immature Granulocyte (auto 0.12 0-0.1 (test code = Absolute Immature Granulocyte (auto) [facility] sodium measurement (moles/volume)2020-09-28 05:25:00 Test Item Value Reference Range Interpretation Comments Sodium Level (test code = 2951-2) 132 136-145 [facility] Pasoerum or plasma potassium measurement (moles/volume)2020-09-28 05:25:00 Test Item Value Reference Range Interpretation Comments Potassium Level (test code = 2823-3) 3.3 3.5-5.1 [facility] Pasoerum or plasma chloride measurement (moles/volume)2020-09-28 05:25:00 Test Item Value Reference Range Interpretation Comments Chloride Level (test code = 2075-0) 106 98-107 [facility] Pasoerum or plasma carbon dioxide, total measurement (moles/volume)2020-09-28 05:25:00 Test Item Value Reference Range Interpretation Comments Carbon Dioxide Level (test code = -8-9) [facility] Pasoerum or plasma anion bee9543-17-41 05:25:00 Test Item Value Reference Range Interpretation Comments Anion Gap (test code = 69860-1) 9.3 8-16 [facility] Pasoerum or plasma urea nitrogen measurement (mass/volume)2020-09-28 05:25:00 Test Item Value Reference Range Interpretation Comments Blood Urea Nitrogen (test code = 01-22 3094-0) [facility] Pasoerum or plasma creatinine measurement (mass/volume)2020-09-28 05:25:00 Test Item Value Reference Range Interpretation Comments Creatinine (test code = 2160-0) 0.83 0.72-1.25 [facility] Pasoerum or plasma urea nitrogen/creatinine mass wbkpw7117-43-11 05:25:00 Test Item Value Reference Range Interpretation Comments BUN/Creatinine Ratio (test code = 12-22 3097-3) [facility] McKinneyEstimated glomerular filtration rate (GFR) xcfwyygzxcfin0406-70-51 05:25:00 Test Item Value Reference Range Interpretation Comments Estimat Glomerular > 60 See_Comment [Automat ed message] The Filtration Rate (test system which generated code = 182124163) this resul t transmitted reference range : 60-. The reference r duane was not used to int erpret this result as normal/abnormal . [facility] McKinneyGlucose eawxwsbxftx1667-87-94 05:25:00 Test Item Value Reference Range Interpretation Comments Glucose Level (test code = MDC3760) 104 74-118 [facility] Pasoerum or plasma calcium measurement (mass/volume)2020-09-28 05:25:00 Test Item Value Reference Range Interpretation Comments Calcium Level (test code = 59703-5) 7.4 8.4-10.2 [facility] Pasoerum or plasma total bilirubin measurement (mass/volume)2020-09-28 05:25:00 Test Item Value Reference Range Interpretation Comments Total Bilirubin (test code = 1975-2) 0.7 0.2-1.2 [facility] McKinneyFluoroscopic procedure less than one hour pmlfnmgf7631-96-87 05:25:00 Test Item Value Reference Range Interpretation Comments Aspartate Amino Transf (AST/SGOT) (test 74 5-34 code = Aspartate Amino Transf (AST/SGOT)) [facility] Pasoerum or plasma alanine aminotransferase measurement (enzymatic activity/volume)2020-09-28 05:25:00 Test Item Value Reference Range Interpretation Comments Alanine Aminotransferase (ALT/SGPT) 107 0-55 (test code = 1742-6) [facility] Pasoerum or plasma protein measurement (mass/volume)2020-09-28 05:25:00 Test Item Value Reference Range Interpretation Comments Total Protein (test code = 2885-2) 4.2 6.5-8.1 [facility] Pasoerum or plasma albumin measurement (mass/volume)2020-09-28 05:25:00 Test Item Value Reference Range Interpretation Comments Albumin (test code = 1751-7) 1.9 3.5-5.0 [facility] McKinneyPlasma globulin measurement (mass/volume) 2020-09-28 05:25:00 Test Item Value Reference Range Interpretation Comments Globulin (test code = 47460-2) 2.3 2.3-3.5 [facility] Pasoerum or plasma albumin/globulin mass ljpee3721-84-27 05:25:00 Test Item Value Reference Range Interpretation Comments Albumin/Globulin Ratio (test code = 0.8 0.8-2.0 1759-0) [facility] Pasoerum or plasma alkaline phosphatase measurement (enzymatic activity/volume)2020-09-28 05:25:00 Test Item Value Reference Range Interpretation Comments Alkaline Phosphatase (test code = 100 40-150 6768-6) [facility] McKinneyTroponin I measurement by highly sensitive enzyme hvnbonawipy8669-29-56 05:25:00 Test Item Value Reference Range Interpretation Comments Troponin I (test code = 33447-4) 0.109 0-0.300 [facility] [place] SINGLE (PORTABLE)2020-09-26 10:41:00[facility] : 1930 Sex: M [place] [address] Patient Name: JUSTICE HARDY MR #: [id number] : 1930 Age/Sex: 89/M Req #: [id number] Adm Physician: ZACHARIAH SAINI MD Ordered by: ARASH CASTORENA MD Report #: [id number] Location: MED/SURG Room/Bed: [facility] Procedure: [id number] DX/CHEST SINGLE (PORTABLE) Exam Date: 09/26/20 Exam [...] ARASH CASTORENA MDABDOMEN 2 VIEW 2020-09-26 09:13:00 [facility] : 1930 Sex: M [place] [address] Patient Name: JUSTICE HARDY MR #: [id number] : 1930 Age/Sex: 89/M Req #: [id number] Adm Physician: ZACHARIAH SAINI MD Ordered by: JEANNINE SAINI MD Report #: [id number] Location: MED/SURG Room/Bed: [facility] Procedure: [id number] DX/ABDOMEN 2 VIEW Exam Date: 09/26/20 Exam [...] By: AYDEN on 09/26/20919 COPY TO: JEANNINE SAINIP Bld-mCnc 2020-09-26 05:17:00 Test Item Value Reference Range Interpretation Comments B-Type Natriuretic Peptide (test code = 50.2 0-100 67107-3) [facility] Pasoerum or plasma amylase measurement (enzymatic activity/volume)2020-09-26 05:17:00 Test Item Value Reference Range Interpretation Comments Amylase Level (test code = 1798-8) 98 25-125 [facility] Pasoerum or plasma lipase measurement (enzymatic activity/volume)2020-09-26 05:17:00 Test Item Value Reference Range Interpretation Comments Lipase (test code = 3040-3) 98 8-78 [facility] McKinneyABDOMEN 2 TWFF4899-63-00 23:59:00 [facility] 1930 Sex: [place] [address] Patient Name: JUSTICE HARDY MR #: [id number] : 1930 Age/Sex: 89/M Req #: [id number] Adm Physician: ZACHARIAH SAINI MD Ordered by: JEANNINE SAINI MD Report #: [id number] Location: MED/SURG Room/Bed: [facility] Procedure: [id number] DX/ABDOMEN 2 VIEW Exam Date: 09/24/20 Exam Time: 2329 REPORT STATUS: Signed EXAM: Abdomen Radiograph 2 View(s) INDICATION: bloody stool [id number] 2330 Y COMPARISON: 09/15/2019 FINDINGS: Prosthetic heart [...] levels are seen in the right hemiabdomen. Mertzon lucency in the upper abdomen on the upright view projecting over the T12 vertebral body , likely represents pneumoperitoneum IMPRESSION: 1. Overall appearance of postsurgical ileus with diffuse mildly dilated small bowel and distended air distended colon to the level of the rectum. Distal obstruction is not excluded. Recommend radiographic follow-up until resolution. 2. Mertzon lucency projecting over the T12 vertebral body may represent pneumoperitoneum as seen on recent chest CT, possibly related to recent surgery. Signed by: Patricia Wheat MD on 09/25/2020 12:48 AM Dictated By: TIESHA WHEAT MD Transcribed By: AYDEN on 09/25/2047 COPY TO: JEANNINE SAINI MDSerum or plasma magnesium measurement (mass/volume)2020-09-23 16:40:00 Test Item Value Reference Range Interpretation Comments Magnesium Level (test code = 66311-1) 1.5 1.3-2.1 [facility] McKinneyFluoroscopic procedure less than one hour oygyrzdu9254-58-71 08:51:00 Test Item Value Reference Range Interpretation Comments Differential Total Cells Counted (test 100 code = Differential Total Cells Counted) [facility] Areaual [facility] neutrophils/100 leukocytes 2020-09-22 08:51:00 Test Item Value Reference Range Interpretation Comments Neutrophils % (Manual) (test code = 86 40-74 21561-2) [facility] blood band neutrophils form/100 wbmntnbksc5928-02-26 08:51:00 Test Item Value Reference Range Interpretation Comments Band Neutrophils % (test code = 764-1) 0 [facility] blood lymphocytes/100 leukocytes 2020-09-22 08:51:00 Test Item Value Reference Range Interpretation Comments Lymphocytes % (Manual) (test code = 7 19-48 737-7) [facility] blood monocytes/100 leukocytes 2020-09-22 08:51:00 Test Item Value Reference Range Interpretation Comments Monocytes % (Manual) (test code = 7 3.4-9.0 744-3) [facility] McKinneyAutomated reticulocyte count as percentage of total rwhnwznqaggx8654-91-01 05:15:00 Test Item Value Reference Range Interpretation Comments Percent Reticulocyte Count (test code = 1.5 0.8-2.2 22271-6) [facility]er[facility] or plasma iron measurement (mass/volume)2020-09-21 05:15:00 Test Item Value Reference Range Interpretation Comments Iron Level (test code = 2498-4) 26 65-175 [facility] Pasoerum or plasma iron binding capacity measurement (mass/volume)2020-09-21 05:15:00 Test Item Value Reference Range Interpretation Comments Total Iron Binding Capacity (test code 193 261-952 = 2500-7) [facility] Pasoerum or plasma iron saturation measurement (mass fraction)2020-09-21 05:15:00 Test Item Value Reference Range Interpretation Comments Percent Iron Saturation (test code = 13 50 2502-3) [facility] Pasoerum or plasma transferrin measurement (mass/volume)2020-09-21 05:15:00 Test Item Value Reference Range Interpretation Comments Transferrin (test code = 3034-6) 138 174-364 [facility] McKinneyBlood cobalamin (vitamin B12) measurement (mass/volume)2020-09-21 05:15:00 Test Item Value Reference Range Interpretation Comments Vitamin B12 Level (test code = 33268-7) 591 213-816 [facility]er[facility] or plasma folate measurement (mass/volume)2020-09-21 05:15:00 Test Item Value Reference Range Interpretation Comments Folate (test code = 2284-8) 17.8 >3.0 [facility] McKinneyCT CHEST D7642-63-27 21:42:00 [facility] : 1930 Sex: M [address] [place], [place] [address] Patient Name: JUSTICE HARDY MR #: [id number] : 1930 Age/Sex: 89/M Req #: [id number] [facility] Physician: ZACHARIAH SAINI MD Ordered by: AJ FLYNN DO Report #: [id number] Location: MED/SURG Room/Bed: [facility] Procedure: [id number] CT/CT CHEST W Exam Date: 09/20/20 Exam Time: 2114 REPORT STATUS: Signed EXAM: CT Chest WITH contrast 09/20/2020 9:15 PM INDICATION: PE [id number] 2114 COMPARISON: None TECHNIQUE: Chest was scanned [...] 09/20/202199 COPY TO: AJ FLYNN DO Phosphorus dpsdsjdygmc4006-06-36 03:45:00 Test Item Value Reference Range Interpretation Comments Phosphorus Level (test code = HPB3446) 0.8 2.3-4.7 [facility] McKinneyCHES SINGLE (PORTABLE)2020-09-17 15:26:00[facility] : 1930 Sex: [place] [address] Patient Name: JUSTICE HARDY MR #: [id number] : 1930 Age/Sex: 89/M Req #: [id number] Adm Physician: ZACHARIAH SAINI MD Ordered by: ZACHARIAH SAINI MD Report #: [id number] Location: ICU Room/Bed: [place] [address] Procedure: [id number] DX/CHEST SINGLE (PORTABLE) Exam Date: 09/17/20 Exam Time: 1450 REPORT STATUS: Signed EXAMINATION: CHEST SINGLE (PORTABLE) INDICATION: SOB, tachypnea [id number] 1450 COMPARISON: Prior x-rays including most recent [...] (PT) in platelet poor plasma by coagulation mhtwc4404-79-77 10:55:00 Test Item Value Reference Range Interpretation Comments Prothrombin Time (test code = 5902-2) 16.5 11.9-14.5 [facility] McKinneyINR in Platelet poor plasma by Coagulation jrdtl7646-68-33 10:55:00 Test Item Value Reference Range Interpretation Comments Prothromb Time International Ratio 1.25 (test code = 6301-6) [facility] McKinneyCHES XRAY LINE LMTLPUXUJ2173-09-48 20:57:00[facility] : 1930 Sex: [place] [address] Patient Name: JUSTICE HARDY MR #: [id number] : 1930 Age/Sex: 89/M Req #: [id number] Adm Physician: ZACHARIAH SAINI MD Ordered by: ZACHARIAH SAINI MD Report #: [id number] Location: ICU Room/Bed: ICU [facility] Procedure: [id number] DX/CHEST XRAY LINE PLACEMENT Exam Date: 09/16/20 [...] AYDEN on 09/16/202101 COPY TO: ZACHARIAH SAINI MDCST. JOSEPH'[facility] HEALTHT SINGLE (PORTABLE)2020-09-15 14:55:00 [facility] 1930 Sex: M [address] [place], [place] [address] Patient Name: JUSTICE HARDY MR #: [id number] : 1930 Age/Sex: 89/M Req #: [id number] Adm Physician: ZACHARIAH SAINI MD Ordered by: DHARMESH LINARES MD Report #: [id number] Lo cation: MED/SURG Room/Bed: [facility] Procedure: [id number] DX/CHEST SINGLE (PORTABLE) Exam Date: 09/15/20 Exam [...] Signed By: SCHUYLER GUERRA MD on 09/15/20 034 Transcribed By: AYDEN on 09/15/201456 COPY TO: DHARMESH LINARES MDABDOMEN ACUTE SERIES W/PA CXR 2020-09-15 10:17:00 [facility] : 1930 Sex: [place] [address] Patient Name: JUSTICE HARDY MR #: [id number] : 1930 Age/Sex: 89/M Req #: [id number] Adm Physician: ZACHARIAH SAINI MD Ordered by: DHARMESH LINARES MD Report #: [id number] Lo cation: MED/SURG Room/Bed: [facility] Procedure: [id number] DX/ABDOMEN ACUTE SERIES W/PA CXR Exam Date: [...] on 09/15/20 1020 COPY TO: DHARMESH LINARES [facility] ACUTE SERIES Rebecca/TENZIN EQC1292-23-37 10:50:00 [facility] : 1930 Sex: [place] [address] Patient Name: JUSTICE HARDY MR #: [id number] : 1930 Age/Sex: 89/M Req #: [id number] Adm Physician: ZACHARIAH SAINI MD Ordered by: DHARMESH ILNARES MD Report #: [id number] Lo cation: MED/SURG Room/Bed: [facility] Procedure: [id number] DX/ABDOMEN ACUTE SERIES W/PA CXR Exam Date: 09/14/20 Exam Time: 1020 REPORT STATUS: Signed X-ray abdomen acute series with 2 views of the abdomen and a single view of the chest INDICATION: sbo [id number] 1020 Comparison: X-ray dated 09/14/2019. Discussion: Lungs [...] Kinase (test code = 2157-6) 385 30-200 [facility] Pasoerum or plasma creatine kinase MB measurement (mass/volume)2020-09-13 11:24:00 Test Item Value Reference Range Interpretation Comments Creatine Kinase MB (test code = 2.90 0-5.0 04535-3) [facility] McKinneyABDOMEN 2 ZAJI2341-73-37 09:26:00 [facility] : 1930 Sex: M [facility] [address] [place] [address] Patient Name: JUSTICE HARDY MR #: [id number] : 1930 Age/Sex: 89/M Req #: [id number] Adm Physician: ZACHARIAH SAINI MD Ordered by: SHANNAN CERVANTES MD Report #: [id number] Location: MED/SURG Room/Bed: [facility] Procedure: [id number] DX/ABDOMEN 2 VIEW Exam Date: 09/13/20 Exam [...] 0.5-2.0 Acid Level) [facility] McKinneyFluoroscopic procedure less than one hour rowokskv7429-85-31 19:02:00 Test Item Value Reference Range Interpretation Comments Coronavirus (PCR) (test code = NOT DETECTED NOTDETECTED Coronavirus (PCR)) [facility] McKinneyCT ABD/PEL WO USLTIRBR-OLXA6074-27-16 17:30:00[facility] : 1930 Sex: [place] [address] Patient Name: JUSTICE HARDY MR #: [id number] : 1930 Age/Sex: 89/M Req #: [id number] [facility] Physician: Ordered by: SHANNAN CERVANTES MD Report #: [id number] Location: [facility] Room/Bed: Procedure: [id number] HOPD/CT ABD/PEL WO CONTRAST-HOPD Exam Date: 09/12/20 Exam Time: 1657 REPORT STATUS: Signed EXAM: CT Abdomen and Pelvis WITHOUT contrast INDICATION: abd pain, nausea, retching [id number] 1658 COMPARISON: CT abdomen and pelvis on 03/02/2020. [...] 09/12/201744 COPY TO: SHANNAN CERVANTES MDCT ABDOMEN/PELVIS HM0342-52-43 15:20:00 [place] [address] Patient Name: JUSTICE HARDY MR #: [id number] : 1930 Age/Sex: 89/M Req #: [id number] Adm Physician: Mario boyd by: JEANNINE SAINI MD Report #: [id number] Location: CT Room/Bed: Procedure: [id number] CT/CT ABDOMEN/PELVISWO Exam Date: 03/02/20 Exam Time: [...]
[2021-06-22 16:59] LABS: Urine Blood 3+ (Negative); Urine Glucose Negative (Negative); Urine Protein Trace (Negative); Urine Specific Gravity 1.015 (1.005-1.030)
[2021-06-22 17:21] LABS: Urine Bacteria 20-50 /HPF (NONE SEEN); Urine RBC >50 /HPF (NONE SEEN)
--- NOTE | 2021-06-22 17:21 | ER ---
Nurse's Notes [facility] Name: Benito Castaneda Age: 89 yrs Sex: Male : 1930 Arrival Date: 06/22/2021 Time: 13:52 Bed 2 Private MD: Don Tate Diagnosis: Hematuria, unspecified Presentation: 06/22 14:03 Chief complaint: Patient states: Blood in urine that began yesterday. Pt recently had ss Quiroz catheter placed in ER due to urinary retention. Coronavirus screen: Client denies travel out of the [place] in the last 14 days. Ebola Screen: Patient denies exposure to infectious person. Patient denies travel to an Ebola-affected area in the 21 days before illness onset. Initial Sepsis Screen: Does the patient meet any 2 criteria? No. Patient's initial sepsis screen is negative. Does the patient have a suspected source of infection? No. Patient's initial sepsis screen is negative. Risk Assessment: Do you want to hurt yourself or someone else? Patient reports no desire to harm self or others. Onset of symptoms was June 21, 2021. 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 - Social history:: Smoking status: Patient denies any tobacco usage or history of. Screenin:37 Abuse screen: Denies threats or abuse. Nutritional screening: No deficits noted. ll1 Tuberculosis screening: No symptoms or risk factors identified. Fall Risk Ambulatory Aid- Crutches/Cane/Walker (15 pts). Gait- Impaired (20 pts.). Total Brady Fall Scale indicates Low Risk Score (25-44 pts). Fall prevention measures have been instituted. Side Rails Up X 2 Placed close to Nursing Station Frequent Obs/Assesments occuring Family Present and informed to notify staff if they need to leave bedside As available Patient and Family Educated on Fall Prevention Program and strategies. Assessment: 16:36 General: Appears in no apparent distress. Behavior is calm, cooperative, appropriate ll1 for age. Pain: Denies pain. Neuro: No deficits noted. Cardiovascular: No deficits noted. Respiratory: No deficits noted. : Urine is blood tinged, Reports bloody urine output in quiroz. 17:30 Reassessment: No changes from previously documented assessment. Patient and/or family ll1 updated on plan of care and expected duration. Pain level reassessed. Patient is alert, oriented x 3, equal unlabored respirations, skin warm/dry/pink. Vital Signs: 14:03 Resp 17; Temp 97.6(TE); Weight 58.97 kg; Height 5 ft. 4 in. (162.56 cm); Pain 6/10; ss 14:05 BP 149 / 73; Pulse 72; Pulse Ox 98% on R/A; ss 17:30 BP 126 / 62; Pulse 79; Resp 17; Pulse Ox 98% ; ll1 14:03 Body Mass Index 22.31 (58.97 kg, 162.56 cm) ED Course: 13:52 Patient arrived in ED. mr 13:52 Don Tate MD is Private Physician. mr 14:05 Triage completed. ss 14:05 Arm band placed on right wrist. ss 16:11 Patient placed in an exam room, on a stretcher. ll1 16:14 Edgar Tan PA is PHCP. jr8 16:14 Don Bhakta MD is Attending Physician. jr8 16:36 Deric Gordillo, BERYL is Primary Nurse. ll1 16:37 Patient has correct armband on for positive identification. Bed in low position. Call ll1 light in reach. Side rails up X 1. Pulse ox on. NIBP on. 17:31 No provider procedures requiring assistance completed. Patient did not have IV access ll1 during this emergency room visit. Administered Medications: No medications were administered Outcome: 17:21 Discharge ordered by . jr8 17:31 Discharged to home ambulatory. ll1 17:31 Condition: stable 17:31 Discharge instructions given to patient, family, Instructed on discharge instructions, follow up and referral plans. medication usage, Demonstrated understanding of instructions, follow-up care, medications, Prescriptions given X 1. 17:32 Patient left the ED. ll1 Signatures: Flakita George Shelby, RN RN Edgar Tan PA PA jr8 Lewis, Lynsay RN RN ll1
--- NOTE | 2021-06-22 17:21 | EDPHYS ---
Physician Documentation [facility] Name: Benito Castaneda Age: 89 yrs Sex: Male : 1930 Arrival Date: 06/22/2021 Time: 13:52 Bed 2 Private MD: Don Tate ED Physician Don Bhakta HPI: 06/22 16:45 This 89 yrs old Male presents to ER via Ambulatory with complaints of Blood In jr8 Catheter. 16:45 The patient has not recently seen a physician. Patient stated that he had small amount jr8 of blood in catheter today. Now running clear. Denies abdominal discomfort, back pain, fevers, or urinary symptoms. 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 - Social history:: Smoking status: Patient denies any tobacco usage or history of. ROS: 16:45 Constitutional: Negative for fever, chills, and weight loss, Abdomen/GI: Negative for jr8 abdominal pain, nausea, vomiting, diarrhea, and constipation, Back: Negative for injury and pain. 16:45 : Positive for hematuria, Negative for urinary symptoms. 16:45 All other systems are negative. Exam: 16:45 Constitutional: This is a well developed, well nourished patient who is awake, alert, jr8 and in no acute distress. Cardiovascular: Regular rate and rhythm with a normal S1 and S2. No gallops, murmurs, or rubs. Normal PMI, no JVD. No pulse deficits. Respiratory: Lungs have equal breath sounds bilaterally, clear to auscultation and percussion. No rales, rhonchi or wheezes noted. No increased work of breathing, no retractions or nasal flaring. Abdomen/GI: Soft, non-tender, with normal bowel sounds. No distension or tympany. No guarding or rebound. No evidence of tenderness throughout. Back: No spinal tenderness. No costovertebral tenderness. Full range of motion. Skin: Warm, dry with normal turgor. Normal color with no rashes, no lesions, and no evidence of cellulitis. MS/ Extremity: Pulses equal, no cyanosis. Neurovascular intact. Full, normal range of motion. Neuro: Awake and alert, GCS 15, oriented to person, place, time, and situation. Cranial nerves II-XII grossly intact. Motor strength 5/5 in all extremities. Sensory grossly intact. 16:45 : Male external genitalia: normal, Bladder: is normal, non-distended, non-tender, a quiroz is noted, urine is clear. Vital Signs: 14:03 Resp 17; Temp 97.6(TE); Weight 58.97 kg; Height 5 ft. 4 in. (162.56 cm); Pain 6/10; ss 14:05 BP 149 / 73; Pulse 72; Pulse Ox 98% on R/A; ss 17:30 BP 126 / 62; Pulse 79; Resp 17; Pulse Ox 98% ; ll1 14:03 Body Mass Index 22.31 (58.97 kg, 162.56 cm) MDM: 16:14 Patient medically screened. 8 16:45 Data reviewed: vital signs, nurses notes, lab test result(s). Data interpreted: Pulse jr8 oximetry: on room air is 98 %. Interpretation: normal. Counseling: I had a detailed discussion with the patient and/or guardian regarding: the historical points, exam findings, and any diagnostic results supporting the discharge/admit diagnosis, lab results, the need for outpatient follow up, a urologist, to return to the emergency department if symptoms worsen or persist or if there are any questions or concerns that arise at home. 06/22 16:58 Order name: Urine Dipstick-Ancillary; Complete Time: 17:02 EDAZ 06/22 16:59 Order name: Urine Microscopic Only; Complete Time: 17:23 [facility] 06/22 16:45 Order name: Urine Dipstick-Ancillary (obtain specimen); Complete Time: 16:53 [facility] 06/22 17:22 Order name: Urine Culture EDAZ Administered Medications: No medications were administered Disposition Summary: 06/22/21 17:21 Discharge Ordered Location: Home jr8 Problem: new jr8 Symptoms: have improved jr8 Condition: Stable jr8 Diagnosis - Hematuria, unspecified jr8 Followup: jr8 - With: Private Physician - When: 2 - 3 days - Reason: Recheck today's complaints, Continuance of care, Re-evaluation by your physician Discharge Instructions: - Discharge Summary Sheet jr8 - Hematuria, Adult jr8 Forms: - Medication Reconciliation Form jr8 - Thank You Letter jr8 - Antibiotic Education jr8 - Prescription Opioid Use jr8 Prescriptions: - Cipro 500 mg Oral Tablet - take 1 tablet by ORAL route every 12 hours for 7 days; 14 tablet; Refills: 0, jr8 Product Selection Permitted Addendum: 06/24/2021 18:51 Co-signature as Attending Physician, Don hall a2 Signatures: Dispatcher [employer] Toshia Dobson RN RN ss Roszak, Josh, PA PA jr8 Don Bhakta MD MD [id number]
[2021-06-22 17:37] VITALS: TEMP 97.6; O2SAT 98
[2021-06-22 17:39] VITALS: BP 126/62
== END 2021-06-22 17:32 | disposition home or self-care (01) ==
LOC: ER 13:43
DX: R31.9 Hematuria, unspecified (principal); I10 Essential (primary) hypertension; Z88.8 Allergy status to other drugs, medicaments and biological substances; Z91.048 Other nonmedicinal substance allergy status; Z95.818 Presence of other cardiac implants and grafts; Z95.1 Presence of aortocoronary bypass graft
CPT/HCPCS: 81003; 81015; 87077; 87086; 87088; 87186; 99283

== ENCOUNTER 2021-06-28 13:32 | Emergency (ER) | payer OTHER, BC ==
--- OUTSIDE RECORDS SUMMARY | 2021-06-28 13:42 | XMS REPORT | Continuity of Care Document ---
:1930 Author Organization [facility] t Address [address] [place] [address] Care Team Providers Name Role Phone Asked, [...] Date Sour ce Number BCBS FED SELECT [id number] 2015 00:00:00 MEDICARE PART A \T\ B [id number] 1996 00:00:00 MEDICAREMEDICARE PART [id number] 1996 [place] Sue AND 00:00:00 [facility] [id number]/1/1997[place] [id number] 2015 [facility] PPO/FEDERAL EMPL 00:00:00 Hospital [id number]- PresentPPO DEPT OF [id number] 2017 Methodis t AFFAIRSDEPT OF 00:00[facility]00 [id number]-Present[facility]ita [facility] Federal [id number] [address] [facility] [address] [facility] Luisela Employees 00:00:00 [facility] Medicare A & B [id number] [address] [facility] 00:00:00 - [...] Added automatic ally from request for surgery [id number] Small Problem Active [facility] bowel [facility] - obstructio Patien t n s [facility] Nausea Problem Active [facility] Patient [facility] Hypomagnes Problem Active [facility] emia [facility] Leukocytos Problem Active [facility] is [facility] - Patient [facility] Hypertensi Problem Active [facility] 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 pain [facility] No known No known Disease Unive rs active active ity of problems problems [facility] Branch Allergies, Adverse Reactions, Alerts Allergy Allergy [...] - substanc 00:00: Patient e 00 [facility] [place] Doxazosi Allergy Active 2018-[address] [facility] [facility] to 2[facility]17 [facility] - substanc 00:00: Patient e 00 [facility] [place] NO KNOWN Drug Active Univers ALLERGIE Class ity of S [facility] Family History Family Member Diagnosis Comments Start Date Stop Date Source Natural brother [facility] Natural father Heart disease [facility] Natural father Hypertension [facility] Natural mother Alzheimer's disease [facility] Natural sister [facility] Social History Social Habit Start Date Stop Date Quantity Comments Source History of tobacco Smoker [facility] Exposure to Not sure [facility] SARS-CoV-2 (event) [facility] Cigarettes smoked 2021-02-20 2021-02-[address] current (pack per 00:00:00 00:00:00 Hospita l day) - Reported Cigarette 2021-02-20 2021-02-20 [facility] pack-years 00:00:00 00:00:00 Hospital Alcohol intake 2021-01-10 2021-01-10 Current University of 00:00:00 00:00:00 non-drinker of [facility] alcohol (finding) Branch Tobacco use and 2021-01-10 2021-01-10 Never used Universit y of exposure 00:00:00 00:00:00 [facility] Alcohol Comment 2017-12-10 2017-12-10 ocassional [facility] 00:00:00 00:00:00 Hospital Sex Assigned At [birth year] Univers[facility] of 00:00:00 00:00:00 [facility] Smoking Status Start Date Stop Date Source Former smoker 2021-02-20 00:00:00 2021-02-20 00:00:00 [facility] Never smoker [facility] Medications Ordered Filled Start Stop Current Ordering Indication Dosage Frequency Signature Comments Components Source Medication Medication Date Date Medication? Clinician (SIG) Name Name latonia 2020- No [id number] Q7D Take 1 M ethodi rol 02-27 [...] dose, Tue Medica l 1:1:1: 01/16/21 at [place] suspension 0315, (COMPOUNDED Routine ) cloNIDine 2020- No .1mg 0.1 mg, Univ ers (CATAPRES) 01-1620 Oral, ity of tablet 0.1 07:15: 06:15 ONCE, 1 Flash as mg 00 :00 dose, [facility] Medical 01/16/21 at Branch 0215, STAT cloNIDine 2020- No .1mg 0.1 mg, Univ ers (CATAPRES) 01-1620 Oral, ity of tablet 0.1 05:45: 04:45 ONCE, 1 Flash as mg 00 :00 dose, [facility] 01/16/21 at Branch 0045, STAT amLODIPine Yes 10mg Take 10 mg U nivers 10 mg - by mouth ity of tablet 18:08: daily. [address] aspirin 325 2020-0 Yes 325mg Take [...] of 2.5 mg 18:08: mouth 2 [place] [facility] 23 (two) Medical times Branch daily. omeprazole Yes 40mg Take 40 mg U nivers 40 mg 7-02 by mouth ity of capsule 18:08: daily. [place] [address] Medical Branch lisinopriL Yes 5mg Take 5 mg Un alma 5 mg tablet 7-02 by mouth ity of 18:08: daily. [place] [address] Medical Branch finasteride Yes 5mg Take 5 mg U nivers 5 mg tablet 7-02 by mouth ity of 18:08: daily. [place] [address] Medical Branch amLODIPine Yes 10mg Take 10 mg U nivers 10 mg 7-02 by mouth ity of tablet 18:08: daily. [place] [address] Medical Branch aspirin 325 Yes 325mg Take [...] 7-02 by mouth ity of 18:08: at [place] 23 bedtime. Medical Branch cloNIDine 2021-0 Yes [...] by mouth ity of capsule 18:08: daily. [place] [address] Medical Branch lisinopriL 0 Yes 5mg Take 5 mg Un alma 5 mg tablet 7-02 by mouth ity of 18:08: daily. [place] [address] Medical Branch finasteride 0 Yes 5mg Take 5 mg U nivers 5 mg tablet 7-02 by mouth ity of 18:08: daily. [address] Branch amLODIPine Yes 10mg Take 10 mg U nivers 10 mg 7-02 by mouth ity of tablet 18:08: daily. [place] [address] Medical Branch aspirin 325 0 Yes 325mg [...] 7-02 by mouth ity of 18:08: at [place] 23 bedtime. Medical Branch cloNIDine 0 Yes .1mg Take 0.1 Univ ers 0.1 mg 7-02 mg by ity of tablet 18:08: mouth 3 [place] 23 (three) Medical times Branch daily. apixaban 0 Yes 2.5mg Take 2.5 Univ ers (ELIQUIS) 7-02 mg by ity of 2.5 mg 18:08: mouth 2 [place] [facility] 23 (two) Medical times Branch daily. omeprazole 0 Yes 40mg Take 40 mg U nivers 40 mg 7-02 by mouth ity of capsule 18:08: daily. [place] [address] Medical Branch lisinopriL Yes 5mg Take 5 mg Un alma 5 mg tablet 7-02 by mouth ity of 18:08: daily. [place] [address] Medical Branch finasteride Yes 5mg Take 5 mg U nivers 5 mg tablet 7-02 by mouth ity of 18:08: daily. [address] Branch amLODIPine Yes 10mg Take 10 mg U nivers 10 mg 7-02 by mouth ity of tablet 18:08: daily. [place] [address] Medical Branch aspirin 325 Yes 325mg Take [...] 7-02 by mouth ity of 18:08: at [place] [address] bedtime. Medical Branch cloNIDine Yes .1mg Take 0.1 Univ ers 0.1 mg 7-02 mg by ity of tablet 18:08: mouth 3 [place] [address] (three) Medical times Branch daily. apixaban Yes 2.5mg Take 2.5 Univ ers (ELIQUIS) 7-02 mg by ity of 2.5 mg 18:08: mouth 2 [facility] 23 (two) Medical times Branch daily. omeprazole Yes 40mg Take 40 mg U nivers 40 mg 7-02 by mouth ity of capsule 18:08: daily. [place] [address] Medical Branch lisinopriL Yes 5mg Take 5 mg Un alma 5 mg tablet 7-02 by mouth ity of 18:08: daily. [place] [address] Medical Branch finasteride Yes 5mg Take 5 mg U nivers 5 mg tablet 7-02 by mouth ity of 18:08: daily. [address] Branch amLODIPine Yes 10mg Take 10 mg U nivers 10 mg 7-02 by mouth ity of tablet 18:08: daily. [address] Branch aspirin 325 Yes 325mg Take [...] of 2.5 mg 18:08: mouth 2 [place] [facility] 23 (two) Medical times Branch daily. omeprazole Yes 40mg Take 40 mg U nivers 40 mg 7-02 by mouth ity of capsule 18:08: daily. [place] [address] Medical Branch lisinopriL Yes 5mg Take 5 mg Un alma 5 mg tablet 7-02 by mouth ity of 18:08: daily. [place] [address] Medical Branch finasteride Yes 5mg Take 5 mg U nivers 5 mg tablet 7-02 by mouth ity of 18:08: daily. [place] [address] Medical Branch amLODIPine Yes 10mg Take 10 mg U nivers 10 mg 7-02 by mouth ity of tablet 18:08: daily. [place] [address] Medical Branch aspirin 325 Yes 325mg Take [...] 7-02 by mouth ity of 18:08: at [place] 23 bedtime. Medical Branch cloNIDine 2021-0 Yes [...] by mouth ity of capsule 18:08: daily. [place] [address] Medical Branch lisinopriL 0 Yes 5mg Take 5 mg Un alma 5 mg tablet 7-02 by mouth ity of 18:08: daily. [place] [address] Medical Branch finasteride 0 Yes 5mg Take 5 mg U nivers 5 mg tablet 7-02 by mouth ity of 18:08: daily. [address] Branch amLODIPine Yes 10mg Take 10 mg U nivers 10 mg 7-02 by mouth ity of tablet 18:08: daily. [place] [address] Medical Branch aspirin 325 0 Yes 325mg [...] 7-02 by mouth ity of 18:08: at [place] 23 bedtime. Medical Branch cloNIDine 0 Yes .1mg Take 0.1 Univ ers 0.1 mg 7-02 mg by ity of tablet 18:08: mouth 3 [place] 23 (three) Medical times Branch daily. apixaban 0 Yes 2.5mg Take 2.5 Univ ers (ELIQUIS) 7-02 mg by ity of 2.5 mg 18:08: mouth 2 [place] [facility] 23 (two) Medical times Branch daily. omeprazole 0 Yes 40mg Take 40 mg U nivers 40 mg 7-02 by mouth ity of capsule 18:08: daily. [place] [address] Medical Branch lisinopriL Yes 5mg Take 5 mg Un alma 5 mg tablet 7-02 by mouth ity of 18:08: daily. [place] [address] Medical Branch finasteride Yes 5mg Take 5 mg U nivers 5 mg tablet 7-02 by mouth ity of 18:08: daily. [place] [address] Medical Branch amLODIPine Yes 10mg Take 10 mg U nivers 10 mg 7-02 by mouth ity of tablet 18:08: daily. [place] [address] Medical Branch aspirin 325 0 Yes 325mg [...] 7-02 by mouth ity of 18:08: at [place] [address] bedtime. Medical Branch cloNIDine Yes .1mg Take 0.1 Univ ers 0.1 mg 7-02 mg by ity of tablet 18:08: mouth 3 [place] [address] (three) Medical times Branch daily. apixaban Yes 2.5mg Take 2.5 Univ ers (ELIQUIS) 7-02 mg by ity of 2.5 mg 18:08: mouth 2 [facility] 23 (two) Medical times Branch daily. omeprazole Yes 40mg Take 40 mg U nivers 40 mg 7-02 by mouth ity of capsule 18:08: daily. [place] [address] Medical Branch lisinopriL Yes 5mg Take 5 mg Un alma 5 mg tablet 7-02 by mouth ity of 18:08: daily. [place] [address] Medical Branch finasteride Yes 5mg Take 5 mg U nivers 5 mg tablet 7-02 by mouth ity of 18:08: daily. [place] [address] Medical Branch Dutasteride Yes Take by Un alma -Tamsulosin 7-02 mouth. ity of 0.5-0.4 mg 18:08: [place] [facility] 22 Medical Branch Dutasteride Yes Take by Un alma -Tamsulosin 12-29 mouth. ity of 0.5-0.4 mg 18:08: [address] Branch Dutasteride Yes Take by Un alma -Tamsulosin 12-29 mouth. ity of 0.5-0.4 mg 18:08: [place] [address] Medical Branch Dutasteride Yes Take by Un alma -Tamsulosin 12-29 mouth. ity of 0.5-0.4 mg 18:08: [address] Branch Dutasteride Yes Take by Un alma -Tamsulosin 12-29 mouth. ity of 0.5-0.4 mg 18:08: [address] Branch Dutasteride Yes Take by Un alma -Tamsulosin 12-29 mouth. ity of 0.5-0.4 mg 18:08: [address] Branch Dutasteride Yes Take by Un alma -Tamsulosin 12-29 mouth. ity of 0.5-0.4 mg 18:08: [address] Branch Dutasteride Yes Take by Un alma -Tamsulosin 12-29 mouth. ity of 0.5-0.4 mg 18:08: [address] tamsulosin 2020- No .4mg QD Take [...] daily for 4 days. traMADoL 2020- [place] [id number] 50mg Q6H Take 50 mg M ethodi [...] by mouth ity of tablet 18:24: daily. [place] [address] Medical Branch aspirin 325 Yes 325mg Take [...] by mouth ity of tablet 18:24: daily. [place] [address] Medical Branch aspirin 325 Yes 325mg Take [...] Besylate Besylate [facility] - Patient s Medical [place] Aspirin Aspirin Yes Daily [facility] (Aspir 81) (Aspir 81) Tal es - 81 Mg 81 Mg Patient TABLET.DR SHIPLEY.DR lino [facility] Hydrochloro Hydrochloro Yes 12.[address] thiazide thiazide [facility] - (Hydrochlor (Hydrochlor P atient othiazide*) othiazide*) s 25 Mg 25 Mg Medical TABLET TABLET Center Tamsulosin Tamsulosin Yes .[address] Hcl Hcl [facility] - (Flomax*) (Flomax*) Patie nt 0.4 Mg CAP 0.4 Mg CAP [facility] Vital Signs Vital Name Observation Time Observation Value Comments Source Systolic blood 2021-01-16 07:00:00 187 mm[Hg] Univer [facility] Diastolic blood 2021-01-16 07:00:00 90 mm[Hg] [facility] Heart rate 2021-01-16 07:00:00 76 /min [facility] Respiratory rate 2021-01-16 07:00:00 20 /min [facility] Oxygen saturation in 2021-01-16 07:00:00 97 /min [facility] Arterial blood by [facility] Pulse oximetry Branch Body temperature 2021-01-16 04:24:00 37.06 Ayana [facility] Body weight 2021-01-16 04:24:00 58.968 kg [facility] BMI 2021-01-16 04:24:00 22.31 kg/m2 [facility] Systolic blood 2021-01-11 02:55:00 175 mm[Hg[facility] 2021-01-11 02:55:00 85 mm[Hg] Unive rsity of pressure [place] [facility] Heart rate 2021-01-11 02:55:00 73 /min [facility] [place] [facility] Respiratory rate 2021-01-11 02:55:00 16 /min Univ ersity of [place] [facility] Branch Oxygen saturation in 2021-01-11 02:55:00 96 /min University of Arterial blood by [facility] Pulse oximetry Branch Body temperature 2021-01-10 23:48:00 37.22 Ayana Univ ersity of [place] [facility] Body weight 2021-01-10 23:48:00 58.968 kg [facility] [place] [facility] BMI 2021-01-10 23:48:00 22.31 kg/m2 [facility] [place] [facility] Systolic blood 2020-12-29 18:08:00 132 mm[Hg] Univer sity of pressure [place] [facility] Branch Diastolic blood 2020-12-29 18:08:00 65 mm[Hg] Unive rsity of pressure [place] [facility] Heart rate 2020-12-29 18:03:00 65 /min [facility] [place] [facility] Body temperature 2020-12-29 18:03:00 36.44 Ayana [facility] ers[facility] [place] [facility] Respiratory rate 2020-12-29 18:03:00 16 /min Univ ersity of [place] [facility] Body height 2020-12-29 18:03:00 162.6 cm [facility] [place] [facility] Body weight 2020-12-29 18:03:00 59.013 kg [facility] [place] [facility] BMI 2020-12-29 18:03:00 22.33 kg/m2 [facility] [place] [facility] Oxygen saturation in 2020-12-29 18:03:00 98 /min University of Arterial blood by [facility] Pulse oximetry Branch Systolic blood 2020-12-29 18:08:00 132 mm[Hg] Univer sity of pressure [place] [facility] Diastolic blood 2020-12-29 18:08:00 65 mm[Hg] Unive rsity of pressure [place] [facility] Heart rate 2020-12-29 18:03:00 65 /min [facility] [place] [facility] Body temperature 2020-12-29 18:03:00 36.44 Ayana Univ ersity of [place] [facility] Respiratory rate 2020-12-29 18:03:00 16 /min Univ ersity of [place] [facility] Body height 2020-12-29 18:03:00 162.6 cm [facility] Body weight 2020-12-29 18:03:00 59.013 kg [facility] BMI 2020-12-29 18:03:00 22.33 kg/m2 [facility] Oxygen saturation in 2020-12-29 18:03:00 98 /min University Arterial blood by [facility] Pulse oximetry [place] Heart rate 2021-02-23 17:45:00 55 /min [facility] Respiratory rate 2021-02-23 17:45:00 20 /min [facility] Oxygen saturation in 2021-02-23 17:45:00 99 /min [facility] Arterial blood by Pulse oximetry Systolic blood 2021-02-23 16:34:54 158 mm[Hg] [facility] pressure Diastolic blood 2021-02-23 16:34:54 75 mm[Hg] [facility] pressure Body temperature 2021-02-23 16:34:54 36.61 Ayana [facility] Body weight 2021-02-21 10:06:00 59.467 kg [facility] BMI 2021-02-21 10:06:00 22.50 kg/m2 [facility] Body height 2021-02-20 11:07:00 162.6 cm [facility] BP Diastolic 2020-09-28 12:46:00 76 mm[Hg] [facility] BP Systolic 2020-09-28 12:46:00 149 mm[Hg] [facility] Oxygen saturation by 2020-09-28 12:46:00 99 /min [facility] - Pulse oximetry Patients [facility] Heart Rate 2020-09-28 12:46:00 85 /min [facility] [...] /min [facility] Body Temperature 2020-09-28 08:42:00 97.4 [degF] [facility] BP Diastolic 2020-09-28 08:42:00 60 mm[Hg] [facility] BP Systolic 2020-09-28 08:42:00 141 mm[Hg] [facility] Oxygen saturation by 2020-09-28 08:42:00 96 /min [facility] - Pulse oximetry Patients [facility] BP Diastolic 2020-09-28 08:36:00 60 mm[Hg] [facility] BP Systolic 2020-09-28 08:36:00 141 mm[Hg] [facility] Oxygen saturation by 2020-09-28 08:36:00 96 /min [facility] - Pulse oximetry Patients [facility] Heart Rate 2020-09-28 08:36:00 81 /min [facility] Respiratory rate 2020-09-28 08:36:00 24 /min [facility] Body Temperature 2020-09-28 08:36:00 97.4 [degF] [facility] Oxygen saturation by 2020-09-28 08:17:00 96 /min [facility] - Pulse oximetry Patients [facility] Heart Rate 2020-09-28 08:17:00 80 /min [facility] Respiratory rate 2020-09-28 08:17:00 20 /min [facility] Oxygen saturation by 2020-09-28 07:49:00 96 /min [facility] - Pulse oximetry Patients [facility] Heart Rate 2020-09-28 07:49:00 80 /min [facility] Respiratory rate 2020-09-28 07:49:00 20 /min [facility] BP Diastolic 2020-09-28 04:00:00 41 mm[Hg] [facility] BP Systolic 2020-09-28 04:00:00 107 mm[Hg] [facility] Oxygen saturation by 2020-09-28 04:00:00 96 /min [facility] - Pulse oximetry Patients [facility] Heart Rate 2020-09-28 04:00:00 85 /min [facility] Respiratory rate 2020-09-28 04:00:00 20 /min [facility] Body Temperature 2020-09-28 04:00:00 97.7 [degF] [facility] Oxygen saturation by 2020-09-28 02:48:00 98 /min [facility] - Pulse oximetry Patients [facility] Heart Rate 2020-09-28 02:48:00 85 /min [facility] Respiratory rate 2020-09-28 02:48:00 18 /min [facility] Oxygen saturation by 2020-09-28 02:40:00 95 /min [facility] - Pulse oximetry Patients [facility] Heart Rate 2020-09-28 02:40:00 87 [...] [facility] - Pulse oximetry Patients [facility] Heart Rate 2020-09-28 00:00:00 92 [...] [facility] - Pulse oximetry Patients [facility] Heart Rate 2020-09-27 20:00:00 99 /min [facility] Respiratory rate 2020-09-27 20:00:00 18 /min [facility] Body Temperature 2020-09-27 20:00:00 98.1 [degF] [facility] Oxygen saturation by 2020-09-27 19:53:00 100 /min [facility] - Pulse oximetry Patients [facility] Heart Rate 2020-09-27 19:53:00 96 /min [facility] Respiratory rate 2020-09-27 19:53:00 18 /min [facility] Oxygen saturation by 2020-09-27 19:45:00 97 /min [facility] - Pulse oximetry Patients [facility] Heart Rate 2020-09-27 19:45:00 99 [...] [facility] - Pulse oximetry Patients [facility] Heart Rate 2020-09-27 15:21:00 103 /min [facility] Respiratory rate 2020-09-27 15:21:00 20 /min [facility] Body Temperature 2020-09-27 15:21:00 98.5 [degF] [facility] Oxygen saturation by 2020-09-27 14:45:00 99 /min [facility] - Pulse oximetry Patients [facility] Heart Rate 2020-09-27 14:45:00 103 /min [facility] Respiratory rate 2020-09-27 14:45:00 20 /min [facility] Oxygen saturation by 2020-09-27 14:30:00 95 /min [facility] - Pulse oximetry Patients [facility] Heart Rate 2020-09-27 14:30:00 103 [...] [facility] - Pulse oximetry Patients [facility] Heart Rate 2020-09-27 11:13:00 88 [...] [facility] - Pulse oximetry Patients [facility] Heart Rate 2020-09-27 08:15:00 105 [...] 116 mm[Hg] [facility] Oxygen saturation by 2020-09-27 07:58:00 95 /min [facility] - Pulse oximetry Patients [facility] Heart Rate 2020-09-27 07:58:00 105 /min [facility] Respiratory rate 2020-09-27 07:58:00 16 /min [facility] Body Temperature 2020-09-27 07:58:00 97.6 [degF] [facility] Oxygen saturation by 2020-09-27 07:15:00 99 /min [facility] - Pulse oximetry Patients [facility] Heart Rate 2020-09-27 07:15:00 105 /min [facility] Respiratory rate 2020-09-27 07:15:00 16 /min [facility] Oxygen saturation by 2020-09-27 07:00:00 95 /min [facility] - Pulse oximetry Patients [facility] Heart Rate 2020-09-27 07:00:00 105 /min [facility] Respiratory rate 2020-09-27 07:00:00 16 /min [facility] Oxygen saturation by 2020-09-27 00:05:00 100 /min [facility] - Pulse oximetry Patients [facility] Heart Rate 2020-09-27 00:05:00 91 /min [facility] Respiratory rate 2020-09-27 00:05:00 20 /min [facility] Oxygen saturation by 2020-09-26 23:50:00 98 /min [facility] - Pulse oximetry Patients [facility] Heart Rate 2020-09-26 23:50:00 89 [...] [facility] - Pulse oximetry Patients [facility] Heart Rate 2020-09-26 20:36:00 84 /min [facility] Respiratory rate 2020-09-26 20:36:00 18 /min [facility] Body Temperature 2020-09-26 20:36:00 98.1 [degF] [facility] BP Diastolic 2020-09-26 20:00:00 80 mm[Hg] [facility] BP Systolic 2020-09-26 20:00:00 142 mm[Hg] [facility] Oxygen saturation by 2020-09-26 20:00:00 100 /min [facility] - Pulse oximetry Patients [facility] Heart Rate 2020-09-26 20:00:00 89 /min [facility] [...] [facility] - Pulse oximetry Patients [facility] Heart Rate 2020-09-26 16:11:00 89 /min [facility] Respiratory rate 2020-09-26 16:11:00 21 /min [facility] Body Temperature 2020-09-26 16:11:00 98.3 [degF] [facility] Oxygen saturation by 2020-09-26 13:10:00 96 /min [facility] - Pulse oximetry Patients [facility] Heart Rate 2020-09-26 13:10:00 94 /min [facility] Respiratory rate 2020-09-26 13:10:00 16 /min [facility] Oxygen saturation by 2020-09-26 12:55:00 96 /min [facility] - Pulse oximetry Patients [facility] Heart Rate 2020-09-26 12:55:00 94 /min [facility] Respiratory rate 2020-09-26 12:55:00 16 /min [facility] - Patients [facility] Oxygen saturation by 2020-09-26 12:35:00 96 /min [facility] - Pulse oximetry Patients [facility] Heart Rate 2020-09-26 12:35:00 94 /min [facility] Patients [facility] Respiratory rate 2020-09-26 12:35:00 16 /min [facility] BP Diastolic 2020-09-26 12:12:00 66 mm[Hg] [facility] BP Systolic 2020-09-26 12:12:00 113 mm[Hg] [facility] Oxygen saturation by 2020-09-26 12:12:00 98 /min [facility] - Pulse oximetry Patients [facility] Heart Rate 2020-09-26 12:12:00 100 /min [facility] Respiratory rate 2020-09-26 12:12:00 26 /min [facility] Body Temperature 2020-09-26 12:12:00 98.0 [degF] [facility] BP Diastolic 2020-09-26 09:22:00 59 mm[Hg] [facility] BP Systolic 2020-09-26 09:22:00 113 mm[Hg] [facility] Oxygen saturation by 2020-09-26 09:22:00 98 /min [facility] Pulse oximetry Patients [facility] Heart Rate 2020-09-26 09:22:00 99 /min [facility] Respiratory rate 2020-09-26 09:22:00 26 /min [facility] Body Temperature 2020-09-26 09:22:00 97.4 [degF] [facility] Oxygen saturation by 2020-09-26 08:50:00 98 /min [facility] Pulse oximetry Patients [facility] Heart Rate 2020-09-26 08:50:00 99 /min [facility] Respiratory rate 2020-09-26 08:50:00 26 /min [facility] Oxygen saturation by 2020-09-26 08:35:00 98 /min [facility] Pulse oximetry Patients [facility] Heart Rate 2020-09-26 08:35:00 99 [...] [facility] Pulse [facility]xim[facility] Patients [facility] Heart Rate 2020-09-26 07:58:00 99 [...] [facility] Pulse [facility]ximetry Patients [facility] Heart Rate 2020-09-26 04:00:00 99 /min [facility] Respiratory rate 2020-09-26 04:00:00 20 /min [facility] Body Temperature 2020-09-26 04:00:00 97.0 [degF] [facility] Oxygen saturation by 2020-09-25 20:08:00 100 /min [facility] Pulse oximetry Patients [facility] Heart Rate 2020-09-25 20:08:00 97 /min [facility] Respiratory rate 2020-09-25 20:08:00 20 /min [facility] BP Diastolic 2020-09-25 20:00:00 61 mm[Hg] [facility] BP Systolic 2020-09-25 20:00:00 124 mm[Hg] [facility] Oxygen saturation by 2020-09-25 20:00:00 97 /min [facility] Pulse oximetry Patients [facility] Heart Rate 2020-09-25 20:00:00 99 /min [facility] Respiratory rate 2020-09-25 20:00:00 18 /min [facility] Body Temperature 2020-09-25 20:00:00 97.9 [degF] [facility] Oxygen saturation by 2020-09-25 19:53:00 97 /min [facility] Pulse oximetry Patients [facility] Heart Rate 2020-09-25 19:53:00 94 [...] [facility] Pulse [facility]ximetry Patients [facility] Heart Rate 2020-09-25 15:48:00 99 /min [facility] Respiratory rate 2020-09-25 15:48:00 18 /min [facility] Body Temperature 2020-09-25 15:48:00 98.0 [degF] [facility] Oxygen saturation by 2020-09-25 12:40:00 97 /min [facility] Pulse oximetry Patients [facility] Heart Rate 2020-09-25 12:40:00 109 /min [facility] Respiratory rate 2020-09-25 12:40:00 16 /min [facility] - Patients [facility] Oxygen saturation by 2020-09-25 12:39:00 97 /min [facility] Pulse oximetry Patients [facility] Heart Rate 2020-09-25 12:39:00 98 /min [facility] Respiratory rate 2020-09-25 12:39:00 22 /min [facility] BP Diastolic 2020-09-25 11:14:00 72 mm[Hg] [facility] BP Systolic 2020-09-25 11:14:00 98 mm[Hg] [facility] Oxygen saturation by 2020-09-25 11:14:00 100 /min [facility] Pulse oximetry Patients [facility] Heart Rate 2020-09-25 11:14:00 98 [...] [facility] Pulse [facility]ximetry Patients [facility] Heart Rate 2020-09-25 09:18:00 96 /min [facility] Respiratory rate 2020-09-25 09:18:00 18 /min [facility] Body Temperature 2020-09-25 09:18:00 97.9 [degF] [facility] Oxygen saturation by 2020-09-25 08:35:00 98 /min [facility] Pulse oximetry Patients [facility] Heart Rate 2020-09-25 08:35:00 96 /min [facility] Respiratory rate 2020-09-25 08:35:00 18 /min [facility] Oxygen saturation by 2020-09-25 08:20:00 98 /min [facility] Pulse oximetry Patients [facility] Heart Rate 2020-09-25 08:20:00 96 [...] [facility] Pulse [facility]ximetry Patients [facility] Heart Rate 2020-09-25 07:33:00 96 [...] [facility] Pulse [facility]ximetry Patients [facility] Heart Rate 2020-09-25 04:00:00 83 [...] Center BP Systolic 2020-09-24 23:59:00 151 mm[Hg] [facility] Oxygen saturation by 2020-09-24 23:59:00 99 /min [facility] Pulse oximetry Patients [facility] Heart Rate 2020-09-24 23:59:00 97 [...] [facility] Pulse [facility]ximetry Patients [facility] Heart Rate 2020-09-24 20:32:00 112 /min [facility] Respiratory rate 2020-09-24 20:32:00 18 /min [facility] Body Temperature 2020-09-24 20:32:00 97.7 [degF] [facility] Oxygen saturation by 2020-09-24 20:25:00 98 /min [facility] Pulse oximetry Patients [facility] Heart Rate 2020-09-24 20:25:00 100 /min [facility] Respiratory rate 2020-09-24 20:25:00 20 /min [facility] Oxygen saturation by 2020-09-24 20:10:00 95 /min [facility] Pulse oximetry Patients [facility] Heart Rate 2020-09-24 20:10:00 102 /min [facility] - Patients [facility] Respiratory rate 2020-09-24 20:10:00 20 /min [facility] BP Diastolic 2020-09-24 20:00:00 92 mm[Hg] [facility] BP Systolic 2020-09-24 20:00:00 165 mm[Hg] [facility] Oxygen saturation by 2020-09-24 20:00:00 94 /min [facility] Pulse oximetry Patients [facility] Heart Rate 2020-09-24 20:00:00 112 [...] [facility] Pulse [facility]ximetry Patients [facility] Heart Rate 2020-09-24 17:13:00 94 /min [facility] Respiratory rate 2020-09-24 17:13:00 16 /min [facility] Body Temperature 2020-09-24 17:13:00 97.7 [degF] [facility] Oxygen saturation by 2020-09-24 14:00:00 100 /min [facility] Pulse oximetry Patients [facility] Heart Rate 2020-09-24 14:00:00 94 /min [facility] Respiratory rate 2020-09-24 14:00:00 16 /min [facility] Oxygen saturation by 2020-09-24 13:45:00 100 /min [facility] Pulse oximetry Patients [facility] Heart Rate 2020-09-24 13:45:00 94 [...] [facility] Pulse [facility]ximetry Patients [facility] Heart Rate 2020-09-24 08:41:00 94 [...] Center BP Systolic 2020-09-24 08:30:00 142 mm[Hg] [facility] Oxygen saturation by 2020-09-24 08:30:00 95 /min [facility] - Pulse oximetry Patients [facility] Heart Rate 2020-09-24 08:30:00 94 /min [facility] Respiratory rate 2020-09-24 08:30:00 18 /min [facility] Body Temperature 2020-09-24 08:30:00 98.6 [degF] [facility] Oxygen saturation by 2020-09-24 06:50:00 100 /min [facility] Pulse oximetry Patients [facility] Heart Rate 2020-09-24 06:50:00 91 /min [facility] Respiratory rate 2020-09-24 06:50:00 16 /min [facility] Oxygen saturation by 2020-09-24 06:35:00 97 /min [facility] - Pulse oximetry Patients [facility] Heart Rate 2020-09-24 06:35:00 87 /min [facility] Respiratory rate 2020-09-24 06:35:00 16 /min [facility] BP Diastolic 2020-09-24 04:00:00 64 mm[Hg] [facility] BP Systolic 2020-09-24 04:00:00 137 mm[Hg] [facility] Patients [facility] Oxygen saturation by 2020-09-24 04:00:00 96 /min [facility] - Pulse oximetry Patients [facility] Heart Rate 2020-09-24 04:00:00 88 /min [facility] Respiratory rate 2020-09-24 04:00:00 18 /min [facility] Body Temperature 2020-09-24 04:00:00 97.7 [degF] [facility] Oxygen saturation by 2020-09-24 01:18:00 97 /min [facility] - Pulse oximetry Patients [facility] Heart Rate 2020-09-24 01:18:00 91 /min [facility] Respiratory rate 2020-09-24 01:18:00 18 /min [facility] Oxygen saturation by 2020-09-24 01:10:00 94 /min [facility] - Pulse oximetry Patients [facility] Heart Rate 2020-09-24 01:10:00 89 [...] [facility] Pulse [facility]ximetry Patients [facility] Heart Rate 2020-09-24 00:00:00 92 [...] [facility] Pulse oximetry Patients [facility] Heart Rate 2020-09-23 21:42:00 105 [...] [facility] Pulse [facility]ximetry Patients [facility] Heart Rate 2020-09-23 20:00:00 105 /min [facility] Respiratory rate 2020-09-23 20:00:00 18 /min [facility] - Patients [facility] Body Temperature 2020-09-23 20:00:00 97.9 [degF] [facility] Patients [facility] Oxygen saturation by 2020-09-23 19:18:00 99 /min [facility] - Pulse oximetry Patients [facility] Heart Rate 2020-09-23 19:18:00 101 /min [facility] Respiratory rate 2020-09-23 19:18:00 22 /min [facility] - Patients [facility] Oxygen saturation by 2020-09-23 19:10:00 94 /min [facility] - Pulse oximetry Patients [facility] Heart Rate 2020-09-23 19:10:00 98 /min [facility] Patients [facility] Respiratory rate 2020-09-23 19:10:00 20 /min [facility] BP Diastolic 2020-09-23 16:11:00 64 mm[Hg] [facility] BP Systolic 2020-09-23 16:11:00 135 mm[Hg] [facility] - Patients [facility] Oxygen saturation by 2020-09-23 16:11:00 97 /min [facility] - Pulse oximetry Patients [facility] Heart Rate 2020-09-23 16:11:00 96 /min [facility] - Patients [facility] Respiratory rate 2020-09-23 16:11:00 18 /min [facility] Body Temperature 2020-09-23 16:11:00 97.8 [degF] [facility] Patients [facility] Oxygen saturation by 2020-09-23 14:15:00 98 /min [facility] - Pulse oximetry Patients [facility] Heart Rate 2020-09-23 14:15:00 83 /min [facility] Respiratory rate 2020-09-23 14:15:00 20 /min [facility] Oxygen saturation by 2020-09-23 14:00:00 98 /min [facility] - Pulse oximetry Patients [facility] Heart Rate 2020-09-23 14:00:00 83 /min [facility] - Patients [facility] Respiratory rate 2020-09-23 14:00:00 20 /min [facility] BP Diastolic 2020-09-23 08:50:00 63 mm[Hg] [facility] BP Systolic 2020-09-23 08:50:00 142 mm[Hg] [facility] Oxygen saturation by 2020-09-23 08:50:00 98 /min [facility] - Pulse oximetry Patients [facility] Heart Rate 2020-09-23 08:50:00 94 /min [facility] Respiratory rate 2020-09-23 08:50:00 18 /min [facility] Body Temperature 2020-09-23 08:50:00 97.3 [degF] [facility] BP Diastolic 2020-09-23 08:39:00 63 mm[Hg] [facility] BP Systolic 2020-09-23 08:39:00 142 mm[Hg] [facility] Patients [facility] Oxygen saturation by 2020-09-23 08:39:00 100 /min [facility] - Pulse oximetry Patients [facility] Heart Rate 2020-09-23 08:39:00 94 /min [facility] Respiratory rate 2020-09-23 08:39:00 18 /min [facility] Body Temperature 2020-09-23 08:39:00 97.4 [degF] [facility] Patients [facility] Oxygen saturation by 2020-09-23 06:45:00 100 /min [facility] - Pulse oximetry Patients [facility] Heart Rate 2020-09-23 06:45:00 94 /min [facility] Respiratory rate 2020-09-23 06:45:00 18 /min [facility] Oxygen saturation by 2020-09-23 06:30:00 100 /min [facility] - Pulse oximetry Patients [facility] Heart Rate 2020-09-23 06:30:00 94 /min [facility] - Patients [facility] Respiratory rate 2020-09-23 06:30:00 18 /min [facility] BP Diastolic 2020-09-23 04:30:00 75 mm[Hg] [facility] BP Systolic 2020-09-23 04:30:00 168 mm[Hg] [facility] Patients [facility] Oxygen saturation by 2020-09-23 04:30:00 98 /min [facility] Pulse oximetry Patients [facility] Heart Rate 2020-09-23 04:30:00 87 /min [facility] Patients [facility] Respiratory rate 2020-09-23 04:30:00 18 /min [facility] Body Temperature 2020-09-23 04:30:00 97.6 [degF] [facility] Patients [facility] Oxygen saturation by 2020-09-23 00:40:00 94 /min [facility] - Pulse oximetry Patients [facility] Heart Rate 2020-09-23 00:40:00 81 /min [facility] Respiratory rate 2020-09-23 00:40:00 20 /min [facility] BP Diastolic 2020-09-23 00:23:00 76 mm[Hg] [facility] BP Systolic 2020-09-23 00:23:00 141 mm[Hg] [facility] Oxygen saturation by 2020-09-23 00:23:00 94 /min [facility] Pulse oximetry Patients [facility] Heart Rate 2020-09-23 00:23:00 81 [...] [facility] Pulse [facility]ximetry Patients [facility] Heart Rate 2020-09-22 20:04:00 95 /min [facility] Respiratory rate 2020-09-22 20:04:00 18 /min [facility] Body Temperature 2020-09-22 20:04:00 97.6 [degF] [facility] Oxygen saturation by 2020-09-22 20:02:00 98 /min [facility] - Pulse oximetry Patients [facility] Heart Rate 2020-09-22 20:02:00 94 /min [facility] Respiratory rate 2020-09-22 20:02:00 20 /min [facility] Oxygen saturation by 2020-09-22 19:47:00 96 /min [facility] - Pulse oximetry Patients [facility] Heart Rate 2020-09-22 19:47:00 95 /min [facility] Respiratory rate 2020-09-22 19:47:00 20 /min [facility] Oxygen saturation by 2020-09-22 15:48:00 100 /min [facility] Pulse oximetry Patients [facility] Heart Rate 2020-09-22 15:48:00 89 [...] [facility] Pulse [facility]ximetry Patients [facility] Heart Rate 2020-09-22 15:40:00 90 /min [facility] Respiratory rate 2020-09-22 15:40:00 22 /min [facility] Body Temperature 2020-09-22 15:40:00 97.6 [degF] [facility] Oxygen saturation by 2020-09-22 15:33:00 96 /min [facility] - Pulse oximetry Patients [facility] Heart Rate 2020-09-22 15:33:00 88 /min [facility] Patients [facility] Respiratory rate 2020-09-22 15:33:00 24 /min [facility] BP Diastolic 2020-09-22 11:44:00 65 mm[Hg] [facility] BP Systolic 2020-09-22 11:44:00 165 mm[Hg] [facility] Patients [facility] Oxygen saturation by 2020-09-22 11:44:00 100 /min [facility] Pulse oximetry Patients [facility] Heart Rate 2020-09-22 11:44:00 81 /min [facility] Patients [facility] Respiratory rate 2020-09-22 11:44:00 23 /min [facility] Body Temperature 2020-09-22 11:44:00 97.9 [degF] [facility] Oxygen saturation by 2020-09-22 11:25:00 100 /min [facility] Pulse oximetry Patients [facility] Heart Rate 2020-09-22 11:25:00 88 /min [facility] Patients [facility] Oxygen saturation by 2020-09-22 11:10:00 96 /min [facility] Pulse oximetry Patients [facility] Heart Rate 2020-09-22 11:10:00 84 [...] [facility] Pulse [facility]ximetry Patients [facility] Heart Rate 2020-09-22 09:27:00 84 /min [facility] Patients [facility] Respiratory rate 2020-09-22 09:27:00 22 /min [facility] Body Temperature 2020-09-22 09:27:00 98.0 [degF] [facility] BP Systolic 2020-09-22 08:00:00 165 mm[Hg] [facility] Patients [facility] Oxygen saturation by 2020-09-22 08:00:00 94 /min [facility] Pulse oximetry Patients [facility] Heart Rate 2020-09-22 08:00:00 84 /min [facility] Patients [facility] Respiratory rate 2020-09-22 08:00:00 22 /min [facility] Body Temperature 2020-09-22 08:00:00 98.0 [degF] [facility] BP Diastolic 2020-09-22 08:00:00 61 mm[Hg] [facility] BP Diastolic 2020-09-22 03:50:00 72 mm[Hg] [facility] BP Systolic 2020-09-22 03:50:00 144 mm[Hg] [facility] Oxygen saturation by 2020-09-22 03:50:00 97 /min [facility] Pulse oximetry Patients [facility] Heart Rate 2020-09-22 03:50:00 93 /min [facility] Respiratory rate 2020-09-22 03:50:00 24 /min [facility] Body Temperature 2020-09-22 03:50:00 97.9 [degF] [facility] Oxygen saturation by 2020-09-22 02:17:00 100 /min [facility] Pulse oximetry Patients [facility] Heart Rate 2020-09-22 02:17:00 92 /min [facility] Respiratory rate 2020-09-22 02:17:00 20 /min [facility] Oxygen saturation by 2020-09-22 02:02:00 100 /min [facility] Pulse oximetry Patients [facility] Heart Rate 2020-09-22 02:02:00 88 [...] [facility] Pulse [facility]ximetry [facility] Heart Rate 2020-09-22 00:02:00 72 [...] Center BP Systolic 2020-09-21 20:07:00 147 mm[Hg] [facility] Oxygen saturation by 2020-09-21 20:07:00 96 /min [facility] Pulse oximetry Patients [facility] Heart Rate 2020-09-21 20:07:00 84 /min [facility] Respiratory rate 2020-09-21 20:07:00 24 /min [facility] Body Temperature 2020-09-21 20:07:00 98.6 [degF] [facility] Oxygen saturation by 2020-09-21 20:02:00 97 /min [facility] Pulse oximetry Patients [facility] Heart Rate 2020-09-21 20:02:00 80 [...] [facility] Pulse [facility]ximetry Patients [facility] Heart Rate 2020-09-21 20:00:00 78 [...] [facility] Pulse [facility]ximetry Patients [facility] Heart Rate 2020-09-21 16:00:00 78 [...] [facility] Pulse [facility]ximetry [facility] Heart Rate 2020-09-21 13:02:00 70 /min [facility] Respiratory rate 2020-09-21 13:02:00 18 /min [facility] Body Temperature 2020-09-21 13:02:00 98.3 [degF] [facility] Oxygen saturation by 2020-09-21 10:15:00 96 /min [facility] Pulse oximetry Patients [facility] Heart Rate 2020-09-21 10:15:00 72 /min [facility] Respiratory rate 2020-09-21 10:15:00 18 /min [facility] BP Diastolic 2020-09-21 09:08:00 63 mm[Hg] [facility] BP Systolic 2020-09-21 09:08:00 150 mm[Hg] [facility] Oxygen saturation by 2020-09-21 09:08:00 95 /min [facility] Pulse oximetry Patients [facility] Heart Rate 2020-09-21 09:08:00 63 /min [facility] Respiratory rate 2020-09-21 09:08:00 17 [...] [facility] Pulse [facility]ximetry Patients [facility] Heart Rate 2020-09-21 08:58:00 63 [...] 150 mm[Hg] [facility] Oxygen saturation by 2020-09-21 07:38:00 95 /min [facility] Pulse oximetry Patients [facility] Heart Rate 2020-09-21 07:38:00 63 /min [facility] Respiratory rate 2020-09-21 07:38:00 17 /min [facility] Body Temperature 2020-09-21 07:38:00 98.0 [degF] [facility] BP Diastolic 2020-09-21 04:00:00 70 mm[Hg] [facility] BP Systolic 2020-09-21 04:00:00 149 mm[Hg] [facility] Oxygen saturation by 2020-09-21 04:00:00 94 /min [facility] Pulse oximetry Patients [facility] Heart Rate 2020-09-21 04:00:00 73 /min [facility] Respiratory rate 2020-09-21 04:00:00 21 /min [facility] Body Temperature 2020-09-21 04:00:00 97.0 [degF] [facility] BP Diastolic 2020-09-21 00:00:00 66 mm[Hg] [facility] BP Systolic 2020-09-21 00:00:00 143 mm[Hg] [facility] Oxygen saturation by 2020-09-21 00:00:00 95 /min [facility] Pulse oximetry Patients [facility] Heart Rate 2020-09-21 00:00:00 76 /min [facility] Respiratory rate 2020-09-21 00:00:00 21 /min [facility] Body Temperature 2020-09-21 00:00:00 98.2 [degF] [facility] BP Diastolic 2020-09-20 20:00:00 69 mm[Hg] [facility] BP Systolic 2020-09-20 20:00:00 155 mm[Hg] [facility] Oxygen saturation by 2020-09-20 20:00:00 94 /min [facility] - Pulse oximetry Patients [facility] Heart Rate 2020-09-20 20:00:00 72 /min [facility] Patients [facility] Respiratory rate 2020-09-20 20:00:00 20 /min [facility] Patients [facility] Body Temperature 2020-09-20 20:00:00 98.1 [degF] [facility] Oxygen saturation by 2020-09-20 19:53:00 99 /min [facility] Pulse oximetry Patients [facility] Heart Rate 2020-09-20 19:53:00 72 /min [facility] Patients [facility] Respiratory rate 2020-09-20 19:53:00 16 /min [facility] Patients [facility] Oxygen saturation by 2020-09-20 19:45:00 96 /min [facility] Pulse oximetry Patients [facility] Heart Rate 2020-09-20 19:45:00 75 /min [facility] Patients [facility] Respiratory rate 2020-09-20 19:45:00 18 /min [facility] BP Diastolic 2020-09-20 16:36:00 69 mm[Hg] [facility] BP Systolic 2020-09-20 16:36:00 155 mm[Hg] [facility] Oxygen saturation by 2020-09-20 16:36:00 97 /min [facility] Pulse oximetry Patients [facility] Heart Rate 2020-09-20 16:36:00 73 [...] Center BP Systolic 2020-09-20 15:47:00 133 mm[Hg] [facility] Oxygen saturation by 2020-09-20 15:47:00 94 /min [facility] Pulse oximetry Patients [facility] Heart Rate 2020-09-20 15:47:00 71 [...] [facility] Pulse [facility]ximetry Patients [facility] Heart Rate 2020-09-20 11:55:00 71 [...] [facility] Pulse [facility]ximetry Patients [facility] Heart Rate 2020-09-20 09:06:00 86 [...] Center BP Systolic 2020-09-20 08:58:00 145 mm[Hg] [facility] Oxygen saturation by 2020-09-20 08:58:00 99 /min [facility] Pulse oximetry Patients [facility] Heart Rate 2020-09-20 08:58:00 86 [...] Center BP Systolic 2020-09-20 08:55:00 145 mm[Hg] [facility] Oxygen saturation by 2020-09-20 08:55:00 99 /min [facility] Pulse oximetry Patients [facility] Heart Rate 2020-09-20 08:55:00 86 [...] [facility] Pulse [facility]ximetry Patients [facility] Heart Rate 2020-09-20 07:38:00 71 /min [facility] Patients [facility] Respiratory rate 2020-09-20 07:38:00 19 /min [facility] Body Temperature 2020-09-20 07:38:00 98.4 [degF] [facility] Oxygen saturation by 2020-09-20 07:05:00 95 /min [facility] Pulse oximetry Patients [facility] Heart Rate 2020-09-20 07:05:00 82 /min [facility] Respiratory rate 2020-09-20 07:05:00 18 /min [facility] BP Diastolic 2020-09-20 04:00:00 61 mm[Hg] [facility] BP Systolic 2020-09-20 04:00:00 145 mm[Hg] [facility] Oxygen saturation by 2020-09-20 04:00:00 96 /min [facility] Pulse oximetry Patients [facility] Heart Rate 2020-09-20 04:00:00 66 [...] [facility] Pulse [facility]xim[facility] Patients [facility] Heart Rate 2020-09-20 00:00:00 66 [...] [facility] Pulse [facility]ximetry Patients [facility] Heart Rate 2020-09-19 21:46:00 80 /min [facility] Respiratory rate 2020-09-19 21:46:00 18 /min [facility] Body Temperature 2020-09-19 21:46:00 97.4 [degF] [facility] Oxygen saturation by 2020-09-19 20:09:00 95 /min [facility] Pulse oximetry Patients [facility] Heart Rate 2020-09-19 20:09:00 82 [...] [facility] Pulse oximetry Patients [facility] Heart Rate 2020-09-19 20:00:00 80 [...] [facility] Pulse oximetry Patients [facility] Heart Rate 2020-09-19 15:41:00 80 [...] [facility] Pulse [facility]ximetry Patients [facility] Heart Rate 2020-09-19 12:14:00 84 [...] [facility] Pulse oximetry Patients [facility] Heart Rate 2020-09-19 11:26:00 88 /min [facility] Respiratory rate 2020-09-19 11:26:00 16 /min [facility] Body Temperature 2020-09-19 11:26:00 98.6 [degF] [facility] Oxygen saturation by 2020-09-19 08:10:00 93 /min [facility] Pulse oximetry Patients [facility] Heart Rate 2020-09-19 08:10:00 97 /min [facility] Respiratory rate 2020-09-19 08:10:00 20 /min [facility] BP Diastolic 2020-09-19 07:37:00 91 mm[Hg] [facility] BP Systolic 2020-09-19 07:37:00 168 mm[Hg] [facility] Oxygen saturation by 2020-09-19 07:37:00 97 /min [facility] Pulse oximetry Patients [facility] Heart Rate 2020-09-19 07:37:00 83 /min [facility] Patients [facility] Respiratory rate 2020-09-19 07:37:00 21 /min [facility] Patients [facility] Body Temperature 2020-09-19 07:37:00 98.1 [degF] [facility] BP Diastolic 2020-09-19 07:17:00 91 mm[Hg] [facility] [place] BP Systolic 2020-09-19 07:17:00 168 mm[Hg] [facility] Oxygen saturation by 2020-09-19 07:17:00 97 /min [facility] Pulse oximetry Patients [facility] Heart Rate 2020-09-19 07:17:00 83 /min [facility] Respiratory rate 2020-09-19 07:17:00 21 /min [facility] [place] Body Temperature 2020-09-19 07:17:00 98.1 [degF] [facility] BP Diastolic 2020-09-19 05:03:00 97 mm[Hg] [facility] BP Systolic 2020-09-19 05:03:00 157 mm[Hg] [facility] Oxygen saturation by 2020-09-19 05:03:00 93 /min [facility] Pulse oximetry Patients [facility] Heart Rate 2020-09-19 05:03:00 91 [...] Center BP Systolic 2020-09-19 01:59:00 200 mm[Hg] [facility] Oxygen saturation by 2020-09-19 01:59:00 96 /min [facility] Pulse oximetry Patients [facility] Heart Rate 2020-09-19 01:59:00 92 /min [facility] Respiratory rate 2020-09-19 01:59:00 18 /min [facility] Body Temperature 2020-09-19 01:59:00 97.7 [degF] [facility] BP Diastolic 2020-09-18 22:57:00 86 mm[Hg] [facility] BP Systolic 2020-09-18 22:57:00 158 mm[Hg] [facility] Oxygen saturation by 2020-09-18 22:57:00 96 /min [facility] Pulse oximetry Patients [facility] Heart Rate 2020-09-18 22:57:00 68 /min [facility] Respiratory rate 2020-09-18 22:57:00 18 /min [facility] Body Temperature 2020-09-18 22:57:00 97.7 [degF] [facility] BP Diastolic 2020-09-18 21:58:00 86 mm[Hg] [facility] BP Systolic 2020-09-18 21:58:00 158 mm[Hg] [facility] Oxygen saturation by 2020-09-18 21:58:00 96 /min [facility] Pulse oximetry Patients [facility] Heart Rate 2020-09-18 21:58:00 68 /min [facility] Respiratory rate 2020-09-18 21:58:00 18 /min [facility] Body Temperature 2020-09-18 21:58:00 97.7 [degF] [facility] Oxygen saturation by 2020-09-18 21:16:00 93 /min [facility] - Pulse oximetry Patients [facility] Heart Rate 2020-09-18 21:16:00 97 /min [facility] Respiratory rate 2020-09-18 21:16:00 20 /min [facility] BP Diastolic 2020-09-18 15:41:00 70 mm[Hg] [facility] BP Systolic 2020-09-18 15:41:00 163 mm[Hg] [facility] Oxygen saturation by 2020-09-18 15:41:00 98 /min [facility] - Pulse oximetry Patients [facility] Heart Rate 2020-09-18 15:41:00 84 /min [facility] Respiratory rate 2020-09-18 15:41:00 21 /min [facility] Body Temperature 2020-09-18 15:41:00 98.6 [degF] [facility] BP Diastolic 2020-09-18 13:00:00 73 mm[Hg] [facility] BP Systolic 2020-09-18 13:00:00 160 mm[Hg] [facility] Oxygen saturation by 2020-09-18 13:00:00 96 /min [facility] Pulse oximetry Patients [facility] Heart Rate 2020-09-18 13:00:00 86 [...] [facility] Pulse oximetry Patients [facility] Heart Rate 2020-09-18 12:00:00 85 [...] Center BP Systolic 2020-09-18 11:00:00 168 mm[Hg] [facility] Oxygen saturation by 2020-09-18 11:00:00 96 /min [facility] Pulse oximetry Patients [facility] Heart Rate 2020-09-18 11:00:00 86 /min [facility] Respiratory rate 2020-09-18 11:00:00 24 /min [facility] BP Diastolic 2020-09-18 10:00:00 79 mm[Hg] [facility] BP Systolic 2020-09-18 10:00:00 150 mm[Hg] [facility] Oxygen saturation by 2020-09-18 10:00:00 96 /min [facility] Pulse oximetry Patients [facility] Heart Rate 2020-09-18 10:00:00 80 [...] [facility] Pulse [facility]ximetry Patients [facility] Heart Rate 2020-09-18 09:00:00 86 /min [facility] Respiratory rate 2020-09-18 09:00:00 18 /min [facility] Body Temperature 2020-09-18 09:00:00 97.7 [degF] [facility] BP Diastolic 2020-09-18 08:00:00 70 mm[Hg] [facility] BP Systolic 2020-09-18 08:00:00 146 mm[Hg] [facility] Oxygen saturation by 2020-09-18 08:00:00 96 /min [facility] Pulse oximetry Patients [facility] Heart Rate 2020-09-18 08:00:00 86 /min [facility] Respiratory rate 2020-09-18 08:00:00 15 /min [facility] BP Diastolic 2020-09-18 07:51:00 80 mm[Hg] [facility] BP Systolic 2020-09-18 07:51:00 141 mm[Hg] [facility] Oxygen saturation by 2020-09-18 07:51:00 96 /min [facility] Pulse oximetry Patients [facility] Heart Rate 2020-09-18 07:51:00 86 /min [facility] Respiratory rate 2020-09-18 07:51:00 17 /min [facility] Body Temperature 2020-09-18 07:51:00 97.7 [degF] [facility] Oxygen saturation by 2020-09-18 07:35:00 97 /min [facility] Pulse oximetry Patients [facility] Heart Rate 2020-09-18 07:35:00 85 [...] [facility] Pulse [facility]ximetry Patients [facility] Heart Rate 2020-09-18 07:00:00 86 [...] [facility] Pulse oximetry Patients [facility] Heart Rate 2020-09-18 06:00:00 95 /min [facility] Respiratory rate 2020-09-18 06:00:00 21 /min [facility] BP Diastolic 2020-09-18 05:00:00 77 mm[Hg] [facility] BP Systolic 2020-09-18 05:00:00 158 mm[Hg] [facility] Oxygen saturation by 2020-09-18 05:00:00 96 /min [facility] Pulse oximetry Patients [facility] Heart Rate 2020-09-18 05:00:00 86 /min [facility] Respiratory rate 2020-09-18 05:00:00 18 /min [facility] BP Diastolic 2020-09-18 04:00:00 74 mm[Hg] [facility] BP Systolic 2020-09-18 04:00:00 150 mm[Hg] [facility] Oxygen saturation by 2020-09-18 04:00:00 96 /min [facility] Pulse oximetry Patients [facility] Heart Rate 2020-09-18 04:00:00 76 /min [facility] Respiratory rate 2020-09-18 04:00:00 17 /min [facility] BP Diastolic 2020-09-18 03:00:00 88 mm[Hg] [facility] BP Systolic 2020-09-18 03:00:00 157 mm[Hg] [facility] Oxygen saturation by 2020-09-18 03:00:00 97 /min [facility] Pulse oximetry Patients [facility] Heart Rate 2020-09-18 03:00:00 89 /min [facility] Respiratory rate 2020-09-18 03:00:00 15 /min [facility] BP Diastolic 2020-09-18 02:00:00 80 mm[Hg] [facility] BP Systolic 2020-09-18 02:00:00 145 mm[Hg] [facility] Oxygen saturation by 2020-09-18 02:00:00 96 /min [facility] Pulse oximetry Patients [facility] Heart Rate 2020-09-18 02:00:00 95 /min [facility] Respiratory rate 2020-09-18 02:00:00 16 /min [facility] BP Diastolic 2020-09-18 01:00:00 73 mm[Hg] [facility] BP Systolic 2020-09-18 01:00:00 144 mm[Hg] [facility] Oxygen saturation by 2020-09-18 01:00:00 97 /min [facility] - Pulse oximetry Patients [facility] Heart Rate 2020-09-18 01:00:00 84 /min [facility] Respiratory rate 2020-09-18 01:00:00 19 /min [facility] BP Diastolic 2020-09-18 00:00:00 68 mm[Hg] [facility] BP Systolic 2020-09-18 00:00:00 144 mm[Hg] [facility] Oxygen saturation by 2020-09-18 00:00:00 97 /min [facility] - Pulse oximetry Patients [facility] Heart Rate 2020-09-18 00:00:00 89 /min [facility] Respiratory rate 2020-09-18 00:00:00 18 /min [facility] Body Temperature 2020-09-18 00:00:00 98.3 [degF] [facility] BP Diastolic 2020-09-17 23:00:00 89 mm[Hg] [facility] BP Systolic 2020-09-17 23:00:00 145 mm[Hg] [facility] Oxygen saturation by 2020-09-17 23:00:00 96 /min [facility] - Pulse oximetry Patients [facility] Heart Rate 2020-09-17 23:00:00 90 /min [facility] Respiratory rate 2020-09-17 23:00:00 20 /min [facility] BP Diastolic 2020-09-17 22:03:00 67 mm[Hg] [facility] BP Systolic 2020-09-17 22:03:00 134 mm[Hg] [facility] Oxygen saturation by 2020-09-17 22:03:00 96 /min [facility] Pulse oximetry Patients [facility] Heart Rate 2020-09-17 22:03:00 90 /min [facility] Respiratory rate 2020-09-17 22:03:00 18 /min [facility] BP Diastolic 2020-09-17 21:00:00 62 mm[Hg] [facility] BP Systolic 2020-09-17 21:00:00 117 mm[Hg] [facility] Oxygen saturation by 2020-09-17 21:00:00 96 /min [facility] Pulse oximetry Patients [facility] Heart Rate 2020-09-17 21:00:00 97 /min [facility] Respiratory rate 2020-09-17 21:00:00 19 /min [facility] Oxygen saturation by 2020-09-17 20:08:00 96 /min [facility] Pulse oximetry Patients [facility] Heart Rate 2020-09-17 20:08:00 95 [...] [facility] Pulse [facility]ximetry Patients [facility] Heart Rate 2020-09-17 20:00:00 105 [...] [facility] Pulse [facility]ximetry Patients [facility] Heart Rate 2020-09-17 19:00:00 102 [...] Center BP Systolic 2020-09-17 18:00:00 146 mm[Hg] [facility] Oxygen saturation by 2020-09-17 18:00:00 95 /min [facility] Pulse oximetry Patients [facility] Heart Rate 2020-09-17 18:00:00 97 /min [facility] Respiratory rate 2020-09-17 18:00:00 18 /min [facility] BP Diastolic 2020-09-17 17:00:00 73 mm[Hg] [facility] BP Systolic 2020-09-17 17:00:00 134 mm[Hg] [facility] Oxygen saturation by 2020-09-17 17:00:00 94 /min [facility] Pulse oximetry Patients [facility] Heart Rate 2020-09-17 17:00:00 106 /min [facility] Respiratory rate 2020-09-17 17:00:00 26 /min [facility] BP Diastolic 2020-09-17 16:00:00 83 mm[Hg] [facility] BP Systolic 2020-09-17 16:00:00 184 mm[Hg] [facility] Oxygen saturation by 2020-09-17 16:00:00 92 /min [facility] Pulse oximetry Patients [facility] Heart Rate 2020-09-17 16:00:00 96 /min [facility] Respiratory rate 2020-09-17 16:00:00 32 /min [facility] Body Temperature 2020-09-17 16:00:00 98.6 [degF] [facility] Oxygen saturation by 2020-09-17 15:28:00 94 /min [facility] Pulse oximetry Patients [facility] Heart Rate 2020-09-17 15:28:00 83 /min [facility] Respiratory rate 2020-09-17 15:28:00 26 /min [facility] Oxygen saturation by 2020-09-17 15:27:00 94 /min [facility] Pulse oximetry Patients [facility] Heart Rate 2020-09-17 15:27:00 83 /min [facility] Respiratory rate 2020-09-17 15:27:00 26 /min [facility] BP Diastolic 2020-09-17 15:00:00 84 mm[Hg] [facility] BP Systolic 2020-09-17 15:00:00 181 mm[Hg] [facility] Oxygen saturation by 2020-09-17 15:00:00 98 /min [facility] Pulse oximetry Patients [facility] Heart Rate 2020-09-17 15:00:00 93 /min [facility] Respiratory rate 2020-09-17 15:00:00 24 /min [facility] Oxygen saturation by 2020-09-17 14:59:00 94 /min [facility] Pulse oximetry Patients [facility] Heart Rate 2020-09-17 14:59:00 84 [...] [facility] Pulse [facility]etry Patients [facility] Heart Rate 2020-09-17 14:00:00 109 /min [facility] Respiratory rate 2020-09-17 14:00:00 29 /min [facility] BP Diastolic 2020-09-17 13:00:00 87 mm[Hg] [facility] BP Systolic 2020-09-17 13:00:00 171 mm[Hg] [facility] Oxygen saturation by 2020-09-17 13:00:00 92 /min [facility] Pulse oximetry Patients [facility] Heart Rate 2020-09-17 13:00:00 112 /min [facility] Respiratory rate 2020-09-17 13:00:00 28 /min [facility] BP Diastolic 2020-09-17 12:00:00 75 mm[Hg] [facility] BP Systolic 2020-09-17 12:00:00 132 mm[Hg] [facility] Oxygen saturation by 2020-09-17 12:00:00 92 /min [facility] Pulse oximetry Patients [facility] Heart Rate 2020-09-17 12:00:00 112 /min [facility] Respiratory rate 2020-09-17 12:00:00 26 /min [facility] BP Diastolic 2020-09-17 11:00:00 80 mm[Hg] [facility] BP Systolic 2020-09-17 11:00:00 148 mm[Hg] [facility] Oxygen saturation by 2020-09-17 11:00:00 92 /min [facility] Pulse oximetry Patients [facility] Heart Rate 2020-09-17 11:00:00 119 [...] Center BP Systolic 2020-09-17 09:00:00 175 mm[Hg] [facility] Oxygen saturation by 2020-09-17 09:00:00 97 /min [facility] Pulse oximetry Patients [facility] Heart Rate 2020-09-17 09:00:00 88 [...] [facility] Pulse [facility] Patients [facility] Heart Rate 2020-09-17 08:00:00 85 [...] [facility] Pulse [facility]ximetry Patients [facility] Heart Rate 2020-09-17 07:00:00 84 /min [facility] Respiratory rate 2020-09-17 07:00:00 15 /min [facility] BP Diastolic 2020-09-17 06:00:00 87 mm[Hg] [facility] BP Systolic 2020-09-17 06:00:00 159 mm[Hg] [facility] Oxygen saturation by 2020-09-17 06:00:00 96 /min [facility] - Pulse oximetry Patients [facility] Heart Rate 2020-09-17 06:00:00 83 /min [facility] Respiratory rate 2020-09-17 06:00:00 15 /min [facility] BP Diastolic 2020-09-17 05:00:00 74 mm[Hg] [facility] BP Systolic 2020-09-17 05:00:00 160 mm[Hg] [facility] Oxygen saturation by 2020-09-17 05:00:00 96 /min [facility] - Pulse oximetry Patients [facility] Heart Rate 2020-09-17 05:00:00 84 /min [facility] Respiratory rate 2020-09-17 05:00:00 16 /min [facility] BP Diastolic 2020-09-17 04:00:00 85 mm[Hg] [facility] BP Systolic 2020-09-17 04:00:00 155 mm[Hg] [facility] Oxygen saturation by 2020-09-17 04:00:00 96 /min [facility] Pulse oximetry Patients [facility] Heart Rate 2020-09-17 04:00:00 86 [...] [facility] Pulse oximetry Patients [facility] Heart Rate 2020-09-17 03:00:00 90 /min [facility] Respiratory rate 2020-09-17 03:00:00 18 /min [facility] Body Temperature 2020-09-17 03:00:00 97.6 [degF] [facility] BP Diastolic 2020-09-17 02:00:00 75 mm[Hg] [facility] BP Systolic 2020-09-17 02:00:00 154 mm[Hg] [facility] Oxygen saturation by 2020-09-17 02:00:00 95 /min [facility] Heart Rate 2020-09-17 02:00:00 88 /min [facility] Respiratory rate 2020-09-17 02:00:00 18 /min [facility] BP Diastolic 2020-09-17 01:00:00 79 mm[Hg] [facility] BP Systolic 2020-09-17 01:00:00 144 mm[Hg] [facility] Oxygen saturation by 2020-09-17 01:00:00 94 /min [facility] Heart Rate 2020-09-17 01:00:00 88 [...] [facility] Heart Rate 2020-09-17 00:00:00 92 /min [facility] Respiratory rate 2020-09-17 00:00:00 26 /min [facility] Oxygen saturation by 2020-09-16 23:05:00 95 /min [facility] Heart Rate 2020-09-16 23:05:00 77 /min [facility] Respiratory rate 2020-09-16 23:05:00 17 /min [facility] BP Diastolic 2020-09-16 23:00:00 123 mm[Hg] [facility] BP Systolic 2020-09-16 23:00:00 212 mm[Hg] [facility] Oxygen saturation by 2020-09-16 23:00:00 97 /min [facility] Heart Rate 2020-09-16 23:00:00 83 /min [facility] Respiratory rate 2020-09-16 23:00:00 23 /min [facility] Body Temperature 2020-09-16 23:00:00 97.1 [degF] [facility] BP Diastolic 2020-09-16 22:12:00 76 mm[Hg] [facility] BP Systolic 2020-09-16 22:12:00 137 mm[Hg] [facility] Heart Rate 2020-09-16 22:12:00 80 /min [facility] BP Diastolic 2020-09-16 22:06:00 82 mm[Hg] [facility] BP Systolic 2020-09-16 22:06:00 176 mm[Hg] [facility] Oxygen saturation by 2020-09-16 22:06:00 96 /min [facility] Heart Rate 2020-09-16 22:06:00 82 /min [facility] Respiratory rate 2020-09-16 22:06:00 18 /min [facility] BP Diastolic 2020-09-16 22:03:00 81 mm[Hg] [facility] BP Systolic 2020-09-16 22:03:00 201 mm[Hg] [facility] Oxygen saturation by 2020-09-16 22:03:00 96 /min [facility] Heart Rate 2020-09-16 22:03:00 84 /min [facility] Respiratory rate 2020-09-16 22:03:00 22 /min [facility] BP Diastolic 2020-09-16 22:00:00 86 mm[Hg] [facility] BP Systolic 2020-09-16 22:00:00 206 mm[Hg] [facility] Oxygen saturation by 2020-09-16 22:00:00 96 /min [facility] Heart Rate 2020-09-16 22:00:00 86 /min [facility] Respiratory rate 2020-09-16 22:00:00 19 /min [facility] BP Diastolic 2020-09-16 21:01:00 69 mm[Hg] [facility] BP Systolic 2020-09-16 21:01:00 153 mm[Hg] [facility] Oxygen saturation by 2020-09-16 21:01:00 96 /min [facility] Heart Rate 2020-09-16 21:01:00 85 /min [facility] Respiratory rate 2020-09-16 21:01:00 17 /min [facility] BP Diastolic 2020-09-16 20:44:00 111 mm[Hg] [facility] BP Systolic 2020-09-16 20:44:00 141 mm[Hg] [facility] Oxygen saturation by 2020-09-16 20:44:00 96 /min [facility] Heart Rate 2020-09-16 20:44:00 84 /min [facility] Respiratory rate 2020-09-16 20:44:00 21 /min [facility] Body Temperature 2020-09-16 20:44:00 98.0 [degF] [facility] BP Diastolic 2020-09-16 20:42:00 111 mm[Hg] [facility] BP Systolic 2020-09-16 20:42:00 141 mm[Hg] [facility] Heart Rate 2020-09-16 20:42:00 84 /min [facility] BP Diastolic 2020-09-16 20:24:00 66 mm[Hg] [facility] BP Systolic 2020-09-16 20:24:00 163 mm[Hg] [facility] Heart Rate 2020-09-16 20:24:00 84 /min [facility] BP Diastolic 2020-09-16 20:00:00 88 mm[Hg] [facility] BP Systolic 2020-09-16 20:00:00 185 mm[Hg] [facility] Oxygen saturation by 2020-09-16 20:00:00 96 /min [facility] Heart Rate 2020-09-16 20:00:00 96 /min [facility] Respiratory rate 2020-09-16 20:00:00 21 /min [facility] Body Temperature 2020-09-16 20:00:00 98.0 [degF] [facility] Oxygen saturation by 2020-09-16 19:40:00 96 /min [facility] Heart Rate 2020-09-16 19:40:00 105 /min [facility] Respiratory rate 2020-09-16 19:40:00 27 /min [facility] BP Diastolic 2020-09-16 16:00:00 90 mm[Hg] [facility] BP Systolic 2020-09-16 16:00:00 175 mm[Hg] [facility] Oxygen saturation by 2020-09-16 16:00:00 96 /min [facility] Heart Rate 2020-09-16 16:00:00 108 /min [facility] Respiratory rate 2020-09-16 16:00:00 36 /min [facility] Body Temperature 2020-09-16 16:00:00 98.5 [degF] [facility] BP Diastolic 2020-09-16 13:00:00 73 mm[Hg] [facility] BP Systolic 2020-09-16 13:00:00 149 mm[Hg] [facility] Oxygen saturation by 2020-09-16 13:00:00 2 /min [facility] Heart Rate 2020-09-16 13:00:00 90 [...] [facility] Heart Rate 2020-09-16 12:00:00 101 /min [facility] Respiratory rate 2020-09-16 12:00:00 32 /min [facility] [place] Body Temperature 2020-09-16 12:00:00 97.8 [degF] [facility] Oxygen saturation by 2020-09-16 11:00:00 96 /min [facility] Heart Rate 2020-09-16 11:00:00 79 /min [facility] Respiratory rate 2020-09-16 11:00:00 19 /min [facility] BP Diastolic 2020-09-16 11:00:00 81 mm[Hg] [facility] BP Systolic 2020-09-16 11:00:00 186 mm[Hg] [facility] BP Diastolic 2020-09-16 10:00:00 82 mm[Hg] [facility] BP Systolic 2020-09-16 10:00:00 166 mm[Hg] [facility] Oxygen saturation by 2020-09-16 10:00:00 95 /min [facility] Heart Rate 2020-09-16 10:00:00 82 /min [facility] Respiratory rate 2020-09-16 10:00:00 20 [...] [facility] Heart Rate 2020-09-16 09:00:00 82 /min [facility] Respiratory rate 2020-09-16 09:00:00 20 /min [facility] BP Diastolic 2020-09-16 08:00:00 77 mm[Hg] [facility] BP Systolic 2020-09-16 08:00:00 197 mm[Hg] [facility] Oxygen saturation by 2020-09-16 08:00:00 94 /min [facility] Heart Rate 2020-09-16 08:00:00 79 [...] [facility] Heart Rate 2020-09-16 07:00:00 73 [...] [facility] Heart Rate 2020-09-16 06:00:00 87 [...] [facility] Heart Rate 2020-09-16 05:00:00 89 /min [facility] Respiratory rate 2020-09-16 05:00:00 22 /min [facility] BP Diastolic 2020-09-16 04:00:00 71 mm[Hg] [facility] BP Systolic 2020-09-16 04:00:00 139 mm[Hg] [facility] Oxygen saturation by 2020-09-16 04:00:00 96 /min [facility] Heart Rate 2020-09-16 04:00:00 85 [...] [facility] Heart Rate 2020-09-16 03:00:00 82 [...] [facility] Heart Rate 2020-09-16 02:00:00 83 /min [facility] Respiratory rate 2020-09-16 02:00:00 17 /min [facility] BP Diastolic 2020-09-16 01:00:00 70 mm[Hg] [facility] BP Systolic 2020-09-16 01:00:00 164 mm[Hg] [facility] Oxygen saturation by 2020-09-16 01:00:00 96 /min [facility] Heart Rate 2020-09-16 01:00:00 84 /min [facility] Respiratory rate 2020-09-16 01:00:00 20 /min [facility] BP Diastolic 2020-09-16 00:00:00 86 mm[Hg] [facility] BP Systolic 2020-09-16 00:00:00 173 mm[Hg] [facility] Oxygen saturation by 2020-09-16 00:00:00 94 /min [facility] Heart Rate 2020-09-16 00:00:00 77 [...] [facility] Heart Rate 2020-09-15 23:00:00 79 /min [facility] Respiratory rate 2020-09-15 23:00:00 18 /min [facility] BP Diastolic 2020-09-15 22:00:00 55 mm[Hg] [facility] BP Systolic 2020-09-15 22:00:00 133 mm[Hg] [facility] Oxygen saturation by 2020-09-15 22:00:00 94 /min [facility] Heart Rate 2020-09-15 22:00:00 78 /min [facility] Respiratory rate 2020-09-15 22:00:00 17 /min [facility] BP Diastolic 2020-09-15 21:00:00 56 mm[Hg] [facility] BP Systolic 2020-09-15 21:00:00 145 mm[Hg] [facility] Oxygen saturation by 2020-09-15 21:00:00 93 /min [facility] Heart Rate 2020-09-15 21:00:00 79 /min [facility] Respiratory rate 2020-09-15 21:00:00 17 /min [facility] Oxygen saturation by 2020-09-15 20:50:00 94 /min [facility] Heart Rate 2020-09-15 20:50:00 81 [...] [facility] Heart Rate 2020-09-15 20:00:00 76 /min [facility] Respiratory rate 2020-09-15 20:00:00 22 /min [facility] Oxygen saturation by 2020-09-15 19:00:00 96 /min [facility] P[facility] Respiratory rate 2020-09-15 19:00:00 14 /min [facility] Body Temperature 2020-09-15 19:00:00 98.7 [degF] [facility] BP Diastolic 2020-09-15 18:00:00 115 mm[Hg] [facility] BP Systolic 2020-09-15 18:00:00 154 mm[Hg] [facility] Oxygen saturation by 2020-09-15 18:00:00 94 /min [facility] Heart Rate 2020-09-15 18:00:00 79 /min [facility] Respiratory rate 2020-09-15 18:00:00 19 /min [facility] BP Diastolic 2020-09-15 17:00:00 65 mm[Hg] [facility] BP Systolic 2020-09-15 17:00:00 154 mm[Hg] [facility] Oxygen saturation by 2020-09-15 17:00:00 95 /min [facility] Heart Rate 2020-09-15 17:00:00 71 [...] [facility] Heart Rate 2020-09-15 16:00:00 75 /min [facility] Respiratory rate 2020-09-15 16:00:00 16 /min [facility] BP Diastolic 2020-09-15 15:14:00 71 mm[Hg] [facility] BP Systolic 2020-09-15 15:14:00 169 mm[Hg] [facility] Oxygen saturation by 2020-09-15 15:14:00 100 /min [facility] Heart Rate 2020-09-15 15:14:00 75 /min [facility] Body Temperature 2020-09-15 15:14:00 97.7 [degF] [facility] BP Diastolic 2020-09-15 15:10:00 66 mm[Hg] [facility] BP Systolic 2020-09-15 15:10:00 156 mm[Hg] [facility] Oxygen saturation by 2020-09-15 15:10:00 100 /min [facility] Heart Rate 2020-09-15 15:10:00 74 /min [facility] Respiratory rate 2020-09-15 15:10:00 18 /min [facility] BP Diastolic 2020-09-15 14:50:00 84 mm[Hg] [facility] BP Systolic 2020-09-15 14:50:00 176 mm[Hg] [facility] [place] Oxygen saturation by 2020-09-15 14:50:00 100 /min [facility] Heart Rate 2020-09-15 14:50:00 81 /min [facility] Respiratory rate 2020-09-15 14:50:00 18 /min [facility] BP Diastolic 2020-09-15 14:40:00 94 mm[Hg] [facility] BP Systolic 2020-09-15 14:40:00 200 mm[Hg] [facility] Oxygen saturation by 2020-09-15 14:40:00 97 /min [facility]xim[facility] Heart Rate 2020-09-15 14:40:00 96 /min [facility] Respiratory rate 2020-09-15 14:40:00 16 /min [facility] BP Diastolic 2020-09-15 14:25:00 96 mm[Hg] [facility] BP Systolic 2020-09-15 14:25:00 175 mm[Hg] [facility] Oxygen saturation by 2020-09-15 14:25:00 98 /min [facility] Heart Rate 2020-09-15 14:25:00 99 /min [facility] Respiratory rate 2020-09-15 14:25:00 16 /min [facility] Body Temperature 2020-09-15 14:25:00 98.0 [degF] [facility] BP Diastolic 2020-09-15 11:14:00 67 mm[Hg] [facility] BP Systolic 2020-09-15 11:14:00 177 mm[Hg] [facility] Oxygen saturation by 2020-09-15 11:14:00 94 /min [facility] Heart Rate 2020-09-15 11:14:00 70 [...] 171 mm[Hg] [facility] Oxygen saturation by 2020-09-15 08:52:00 92 /min [facility] Heart Rate 2020-09-15 08:52:00 74 /min [facility] Respiratory rate 2020-09-15 08:52:00 18 /min [facility] Body Temperature 2020-09-15 08:52:00 97.6 [degF] [facility] BP Diastolic 2020-09-15 07:45:00 75 mm[Hg] [facility] BP Systolic 2020-09-15 07:45:00 171 mm[Hg] [facility] Oxygen saturation by 2020-09-15 07:45:00 92 /min [facility] Heart Rate 2020-09-15 07:45:00 74 /min [facility] Respiratory rate 2020-09-15 07:45:00 18 /min [facility] Body Temperature 2020-09-15 07:45:00 97.6 [degF] [facility] BP Diastolic 2020-09-15 04:00:00 56 mm[Hg] [facility] BP Systolic 2020-09-15 04:00:00 156 mm[Hg] [facility] Oxygen saturation by 2020-09-15 04:00:00 93 /min [facility] Heart Rate 2020-09-15 04:00:00 68 [...] Center BP Systolic 2020-09-15 00:00:00 140 mm[Hg] [facility] Oxygen saturation by 2020-09-15 00:00:00 94 /min [facility] Heart Rate 2020-09-15 00:00:00 72 /min [facility] Respiratory rate 2020-09-15 00:00:00 18 /min [facility] Body Temperature 2020-09-15 00:00:00 98.4 [degF] [facility] BP Diastolic 2020-09-14 20:27:00 80 mm[Hg] [facility] BP Systolic 2020-09-14 20:27:00 180 mm[Hg] [facility] Oxygen saturation by 2020-09-14 20:27:00 92 /min [facility] Heart Rate 2020-09-14 20:27:00 90 /min [facility] Respiratory rate 2020-09-14 20:27:00 20 /min [facility] Body Temperature 2020-09-14 20:27:00 98.5 [degF] [facility] BP Diastolic 2020-09-14 20:00:00 80 mm[Hg] [facility] BP Systolic 2020-09-14 20:00:00 180 mm[Hg] [facility] Oxygen saturation by 2020-09-14 20:00:00 92 /min [facility] Heart Rate 2020-09-14 20:00:00 90 /min [facility] Respiratory rate 2020-09-14 20:00:00 20 /min [facility] Body Temperature 2020-09-14 20:00:00 98.5 [degF] [facility] BP Diastolic 2020-09-14 15:47:00 82 mm[Hg] [facility] BP Systolic 2020-09-14 15:47:00 155 mm[Hg] [facility] Oxygen saturation by 2020-09-14 15:47:00 95 /min [facility] Heart Rate 2020-09-14 15:47:00 85 /min [facility] Respiratory rate 2020-09-14 15:47:00 16 /min [facility] Body Temperature 2020-09-14 15:47:00 98.1 [degF] [facility] BP Diastolic 2020-09-14 11:15:00 73 mm[Hg] [facility] BP Systolic 2020-09-14 11:15:00 165 mm[Hg] [facility] Oxygen saturation by 2020-09-14 11:15:00 93 /min [facility] Heart Rate 2020-09-14 11:15:00 89 /min [facility] Respiratory rate 2020-09-14 11:15:00 19 /min [...] [facility] Heart Rate 2020-09-14 07:49:00 88 /min [facility] Respiratory rate 2020-09-14 07:49:00 18 /min [facility] Body Temperature 2020-09-14 07:49:00 97.9 [degF] [facility] BP Diastolic 2020-09-14 07:31:00 67 mm[Hg] [facility] BP Systolic 2020-09-14 07:31:00 166 mm[Hg] [facility] Oxygen saturation by 2020-09-14 07:31:00 93 /min [facility] Heart Rate 2020-09-14 07:31:00 88 /min [facility] Respiratory rate 2020-09-14 07:31:00 18 /min [facility] Body Temperature 2020-09-14 07:31:00 97.9 [degF] [facility] BP Diastolic 2020-09-14 04:00:00 74 mm[Hg] [facility] BP Systolic 2020-09-14 04:00:00 175 mm[Hg] [facility] Oxygen saturation by 2020-09-14 04:00:00 94 /min [facility] Heart Rate 2020-09-14 04:00:00 94 [...] [facility] Heart Rate 2020-09-14 00:00:00 90 [...] [facility] Heart Rate 2020-09-13 20:12:00 88 [...] [facility] Heart Rate 2020-09-13 20:00:00 88 [...] [facility] Heart Rate 2020-09-13 16:11:00 78 [...] [facility] Pulse oximetry Patients [facility] Heart Rate 2020-09-13 12:08:00 82 [...] [facility] Pulse oximetry Patients [facility] Heart Rate 2020-09-13 11:16:00 79 [...] [facility] Pulse oximetry Patients [facility] Heart Rate 2020-09-13 08:45:00 79 [...] [facility] Pulse oximetry Patients [facility] Heart Rate 2020-09-13 04:00:00 87 [...] [facility] Pulse oximetry Patients [facility] Heart Rate 2020-09-13 00:00:00 76 [...] [facility] Pulse oximetry Patients [facility] Heart Rate 2020-09-12 22:28:00 96 [...] [facility] Pulse oximetry Patients [facility] Heart Rate 2020-09-12 22:18:00 96 [...] [facility] - Pulse oximetry Patients [facility] Heart Rate 2020-09-12 20:23:00 95 /min [facility] Patients [facility] Respiratory rate 2020-09-12 20:23:00 18 /min [facility] Body Temperature 2020-09-12 20:23:00 97.9 [degF] [facility] Patients [facility] Oxygen saturation by 2020-09-12 20:11:00 96 /min [facility] - Pulse oximetry Patients [facility] Oxygen saturation by 2020-09-12 18:25:00 98 /min [facility] - Pulse oximetry Patients [facility] Oxygen saturation by 2020-09-12 15:35:00 98 /min [facility] - Pulse oximetry Patients [facility] Procedures Procedure Date / Time Performing Clinician Source Performed HC COMPLETE BLD COUNT 2021-02-23 09:51:00 [facility] W/AUTO DIFF BASIC METABOLIC PANEL 2021-02-23 09:51:00 [facility] ESTIMATED GFR 2021-02-23 09:51:00 [facility] HC COMPLETE BLD COUNT 2021-02-22 09:32:00 [facility]/AUTO DIFF BASIC METABOLIC PANEL 2021-02-22 09:32:00 [facility] ESTIMATED GFR 2021-02-22 09:32:00 [facility] HC COMPLETE BLD COUNT 2021-02-21 09:50:00 [facility]/AUTO DIFF BASIC METABOLIC PANEL 2021-02-21 09:50:00 [facility] LIPID PANEL 2021-02-21 09:50:00 [facility] ESTIMATED GFR 2021-02-21 09:50:00 [facility] COVID-19 ANTI-SPIKE IGG 2021-02-20 23:58:00 [facility] ANTIBODY TITER COVID-19 SEROLOGY PATIENT 2021-02-20 23:58:[address] [facility] SURVEILLANCE THYROID STIMULATING 2021-02-20 23:58:00 [facility] HORMONE T4, FREE 2021-02-20 23:58:00 [facility] FERRITIN LEVEL 2021-02-20 23:58:00 [facility] LDH 2021-02-20 23:58:00 [facility] SEDIMENTATION RATE 2021-02-20 23:58:00 [facility] CRP HIGH SENSITIVITY 2021-02-20 23:58:00 [facility] INTERLEUKIN 6 2021-02-20 23:58:00 [facility] PROCALCITONIN 2021-02-20 23:58:00 [facility] D-DIMER 2021-02-20 23:58:00 [facility] PROTHROMBIN TIME WITH INR 2021-02-20 23:58:[address] [facility] TROPONIN, I-STAT 2021-02-20 15:35:00 [facility] COVID-19 QUALITATIVE 2021-02-20 14:41:00 [facility]el [facility] ANGIOGRAM PE CHEST 2021-02-20 13:52:[address] [facility] US DUPLEX VENOUS LOWER 2021-02-20 12:59:12 Isaac Quiles [facility] EXTREMITY RIGHT Narendra URINALYSIS 2021-02-20 12:35:00 Isaac Quiles spital Narendra XR CHEST 1 VW PORTABLE 2021-02-20 12:15:13 Isaac Quiles [facility] Narendra BASIC METABOLIC PANEL 2021-02-20 12:10:00 Isaac Quiles [facility] Narendra ESTIMATED GFR 2021-02-20 12:10:00 Isaac Quiles [facility] Narendra RESPIRATORY PATHOGEN 2021-02-20 12:05:[facility]-19 Narendra RT-PCR COMPREHENSIVE METABOLIC 2021-02-20 11:55:00 Isaac Quiles [facility] PANEL Narendra CBC WITH PLATELET AND 2021-02-20 11:55:00 Isaac Quiles [facility] DIFFERENTIAL Narendra CREATINE KINASE, TOTAL 2021-02-20 11:55:00 Isaac Quiles [facility] ([facility]) Narendra TROPONIN, I-STAT 2021-02-20 11:55:00 [facility]FR 2021-02-20 11:55:00 [facility] Quiles [facility] Na[facility]ra PROTHROMBIN TIME WITH 2021-02-20 11:55:00 Isaac Quiles [facility] INR, I-STAT Narendra MANUAL DIFFERENTIAL 2021-02-20 11:55:00 Isaac Quiles [facility] Narendra ECG 12-LEAD 2021-02-20 11:33:15 Isaac Quiles spital Narendra ECG ED PRELIMINARY 2021-02-20 11:32:10 Isaac Quiles [facility] INTERPRETATION Narendra PHYSICIAN ORDERS 2021-01-24 05:01:00 Doctor Bryson, [facility] [place] [facility] CT CERVICAL SPINE WO 2021-01-16 05:11:15 Mumtaz Swanson [facility] CONTRAST Medical Branch CT HEAD WO CONTRAST 2021-01-16 05:11:15 Mumtaz Swanson [facility] [place] NOTICE OF PRIVACY 2021-01-16 04:10:39 Doctor Bryson, [facility] [place] [facility] CT HEAD WO CONTRAST 2021-01-11 01:54:48 Sushma Juarez [facility] [place] CONSENT/REFUSAL FOR 2021-01-10 23:21:01 Doctor Unanancy, [facility] DIAGNOSIS AND TREATMENT [place] [facility] NOTICE OF PRIVACY 2020-12-29 19:06:49 Doctor Unanancy, [facility] [place] [facility] CONSENT/REFUSAL FOR 2020-12-29 19:06:22 [facility] DIAGNOSIS AND TREATMENT [place] [facility] ASSIGNMENT OF BENEFITS 2020-12-29 19:06:04 Doctor Unassrodrigo, [facility] [place] [facility] ASSIGNMENT OF BENEFITS 2020-12-29 17:51:14 Doctor Unassigned, [facility] [place] [facility] HC COMPLETE BLD COUNT 2020-12-03 10:00:00 [facility] W/AUTO DIFF BASIC METABOLIC PANEL 2020-12-03 09:00:00 [facility] ESTIMATED GFR 2020-12-03 09:00:00 [facility] MRI BRAIN WO CONTRAST 2020-12-02 17:48:00 [facility] BASIC METABOLIC PANEL 2020-12-02 08:52:00 [facility] ESTIMATED GFR 2020-12-02 08:52:00 [facility] HC COMPLETE BLD COUNT 2020-12-02 08:38:00 [facility] W/AUTO DIFF US CAROTID DUPLEX 2020-12-01 20:45:00 [facility] BILATERAL TTE COMPLETE, WO 2020-12-01 16:39:21 [facility] CONTRAST, W DOPPLER ([id number]) HC COMPLETE BLD COUNT 2020-12-01 09:30:00 [facility] W/AUTO DIFF BASIC METABOLIC PANEL 2020-12-01 09:00:00 [facility] ESTIMATED GFR 2020-12-01 09:00:00 [facility] LIPID PANEL 2020-12-01 02:15:00 [facility] THYROID STIMULATING 2020-12-01 02:15:00 [facility] HORMONE T4, FREE 2020-12-01 02:15:00 [facility] TROPONIN 2020-12-01 02:15:00 [facility] HEMOGLOBIN A1C 2020-12-01 01:15:00 [facility] URINALYSIS, AUTOMATED 2020-11-30 22:23:00 [facility] MICROSCOPY COVID-19 QUALITATIVE 2020-11-30 21:44:00 [facility] RT-PCR CT HEAD WO CONTRAST 2020-11-30 19:03:[address] [facility] [address] ANGIOGRAM PE CHEST 2020-11-30 19:03:13 [facility] ECG ED PRELIMINARY 2020-11-30 17:08:13 [facility] INTERPRETATION HC COMPLETE BLD COUNT 2020-11-30 16:15:00 [facility] W/AUTO DIFF PROTHROMBIN TIME WITH INR 2020-11-30 16:15:00 [facility] PARTIAL THROMBOPLASTIN 2020-11-30 16:15:00 [facility] TIME (PTT) COMPREHENSIVE METABOLIC 2020-11-30 16:15:00 [facility] PANEL TROPONIN 2020-11-30 16:15:00 [facility] ospital B NATRIURETIC PEPTIDE 2020-11-30 16:15:00 [facility] ESTIMATED GFR 2020-11-30 16:15:00 [facility] ospital D-DIMER 2020-11-30 16:15:00 [facility] ospital ECG 12-LEAD 2020-11-30 15:58:05 [facility] ospital Computed tomography of 2020-09-20 00:00:00 RUSTAM Bruno - chest with contrast Patients [facility] Exploratory laparotomy 2020-09-15 00:00:00 RUSTAM Bruno - [facility] CT of abdomen and pelvis 2020-03-02 00:00:00 RUSTAM Arora - without contrast Patients [facility] EXTERNAL PROVIDER RECORDS 2019-01-27 05:01:00 Doctor Unassigned, [facility] [place] [facility] Plan of Care Planned Activity Planned Date Details Comments Source Future Scheduled Test 65+ PNEUMOCOCCAL Me [facility] VACCINE (1 of 2 - PPSV23) [code = 65+ PNEUMOCOCCAL VACCINE (1 of 2 - PPSV23)] Future Scheduled Test COVID-19 VACCINE (1) [facility] [code = COVID-19 VACCINE (1)] Future Scheduled Test SHINGLES VACCINES (#1) [facility] [code = SHINGLES VACCINES (#1)] Future Scheduled Test INFLUENZA VACCINE [code [facility] = INFLUENZA VACCINE] Encounters Start End Encounter Admission Attending Care Care Encounter Source Date/Time Date/Time Type Type Clinicians Facility Department ID 2021-04-30 Emergency [facility] [id number] Univers 09:16:44 [facility] 2021-04-30 Emergency [facility] [id number] Univers 08:16:39 [facility] 2021-06-18 2021-06-18 Outpatient 2030_Biopsy [facility] [id number] [place] 12:38:00 12:38:00 [id number] 2021-04-11 2021-04-23 Inpatient FIFI [facility] [id number] [place] 00:00:00 00:00:00 ANDREW [address] 2021-04-19 2021-04-19 Inpatient BONI, [facility] [id number] [place] 00:00:00 00:00:00 MOHAMMED [address] 2021-03-09 2021-03-09 Emergency ALEJOLORY [facility] [id number] [place] 00:00:00 00:00:[address] 2021-02-20 2021-02-23 Hospital FIFI, 1.2.840.1 [id number] [place] 00:00:00 00:00:00 Encounter ANDREW 82403.1.1 [address] .3.603790 .8 2021-02-20 2021-02-20 Travel 1.2.840.1 1.2.930.899 [id number] Methodi 00:00:00 00:00:[address] 3.430.2.7 0.2.7.3.698 Ho spita .3.575819 084.8 l .8 2021-01-30 2021-01-30 Outpatient Rebecca DAHL [facility] [id number] Univers 14:30:00 14:30:00 WONDIMARINA isbell [facility] 2021-01-24 2021-01-24 Correction Warden Pob, Adc Lab Main [facility] 1.2.8 40.114 [id number] Univers 15:50:12 16:05:12 Visit Anthony, David Sherrill Rivka 350.1.13.1 0 [place] [phone] Nh dical nal 353 Branch [facility] 2021-01-24 2021-01-24 Outpatient R [facility] [id number] Univers 16:00:00 16:00:00 [id number] ity of [facility] 2021-01-24 2021-01-24 [facility] [id number] Univers 16:00:00 16:00:00 DAVID ity [facility] 2021-01-24 2021-01-24 Orders Doctor DAVID 1.2.840.114 [id number] Univers 00:00:00 00:00:00 Only Unassigned, GREGORY 350.1.13.10 ity of [place] [facility] 4.2.7.2.686 Flash as [phone] [facility] 009 Branch 2021-01-15 2021-01-16 Emergency , [facility] 1.2.192.091 [id number] Univers 23:22:00 03:17:00 Mumtaz Tineo 350.1.13.10 [place] [id number] [facility] 084 Branch 2021-01-10 2021-01-10 Emergency Sagar Holland [facility] 1.2.840.114 [id number] Univers 18:49:00 22:03:00 May Tineo 350.1.13.10 [place] [id number] [facility] 084 Branch 2020-12-29 2020-12-29 Hospital Val, [facility] 1.2.840.114 [id number] Univers 14:04:19 23:59:00 Encounter Melody Tineo 350.1.13.10 [place] [id number] [facility] 807 Branch 2020-12-29 2020-12-29 [facility] 1.2.840.114 [id number] Univers 14:00:00 14:03:00 Encounter Melody Tineo 350.1.13.10 [place] 4.2.7.2.686 [facility] [phone] [facility] 807 [place] 2020-12-29 2020-12-29 Outpatient VAL, [facility] [id number] Univers 14:00:00 14:00:00 MELODY [id number] [facility] 2020-12-29 2020-12-29 Office [facility] 1.2.840.114 [id number] Univers 12:52:54 13:35:06 Visit Melody [facility] 350.1.13.10 i ty of [place] 4.2.7.2.686 Flash as Professio [phone] Me dical [address] Office [facility] 2020-12-29 2020-12-29 [facility] 1.2.840.114 [id number] 12:52:54 13:35:06 Visit Melody [facility] 350.1.13.10 [place] 4.2.7.2.686 Professio [id number] [address] 2020-12-29 2020-12-29 [facility] [id number] Univers 13:00:00 13:00:00 MELODY [facility] 2020-12-29 2020-12-29 Orders Doctor DAVID 1.2.840.114 [id number] Univers 00:00:00 00:00:00 Only Unassigned, GREGORY 350.1.13.10 ity of [place] [facility] 4.2.7.2.686 Flash as [id number] [facility] 009 [place] 2020-11-30 2020-12-04 [facility] 1.2.840.1 [id number] [place] 00:00:00 00:00:00 Encounter ANDREW 03629.1.1 [address] .3.746600 .8 2020-11-30 2020-11-30 Travel 1.2.840.1 1.2.239.824 [id number] Methodi 00:00:00 00:00:[address] 3.430.2.7 0.2.7.3.698 Ho spita .3.500007 084.8 l .8 2020-09-12 2020-09-28 Discharged 1 [facility] [id number] 19:18:00 13:20:00 Inpatient SOUHEIL Patients 99 [facility] 2020-03-02 2020-03-02 Registered 3 YENY, [facility] [place] S[id number] 13:32:00 13:32:00 Clinic JEANNINE Patients 29 [facility] 2019-01-27 2019-01-27 Orders Doctor DAVID 1.2.840.114 [id number] Univers 00:00:00 00:00:00 Only Unassigned, GREGORY 350.1.13.10 ity of [place] [facility] 4.2.7.2.686 Flash as [phone] [facility] hemal 009 Branch Results Test Description Test Time Test Comments Results Result Comments Source ECG 12 lead 2021-02-20 17:04:06 Test Item Value Reference Range Interpretation Comme nts Ventricular rate (test code = 253) Atrial rate (test code = 255) MA interval (test code = 266) QRSD interval [...] of 30-NOV-2020 10:58,-No significant change was found[facility] Offcn6649-53-66 13:59:27EXAMINATION: CT ANGIOGRAM PE CHEST HISTORY: 89 [...] mild pulmonary edema.1D2RAD_PS02Methodist HospitalUs duplex venous lower mcosmtdoi5641-12-01 12:59:58EXAMINATION: US DUPLEX VENOUS LOWER EXTREMITY RIGHT [...] lower extremity named vessels as described above. [id number] Interface, Radiology Results 02/20/2021 8:03 AM CDT [...] lower extremity named vessels as described above. [id number] HospitalXR Chest 1 Wsrpwvsb9407-37-89 12:29:01EXAMINATION: XR CHEST 1 VW PORTABLE CLINICAL [...] HospitalECG ED Preliminary Interpretation - Not an Pudhg2203-39-65 11:32:10Osmel Fowler MD 02/20/2021 10:18 AMECG ED Preliminary Interpretation - Not an OrderPerform ed by: Isaac Quiles MDAuthorized by: Isaac Quiles MD Interpretation: Interpretation: non-specific Quality: Tracing quality: Limited by artifactRate: ECG rate: 65 ECG rate assessment: normal Rhythm: Rhythm: sinus rhythm ST segments: ST segments: Non-specificT waves: T waves: non-specificMethodist HospitalCT HEAD WO ALLLJFPI8227-29-07 01:56:56 No acute intracranial abnormality. CT HEAD [...] and mastoidair cells are clear. Left pseudophakia. [facility], Radiant Results Inft User - [...] cells are clear. Left pseudophakia.IMPRESSIONNo acute intracranial abnormality.[facility] Brain Wo Hivyafbw6975-61-33 18:04:52EXAMINATION: MRI BRAIN WO CONTRAST CLINICAL HISTORY: [...] IMPRESSION: No structural evidence of neurodegenerative disease. [facility]-[id number] Interface, Radiology Results [facility] - 12/02/2020 1:08 PM CDT EXAMINATION: MRI [...] Nonspecific diffuse hypoperfusion.IMPRESSION:No structural evidence of neurodegenerative disease.HMTW-[id number] HospitalPv carotid gibzcc2835-20-91 02:56:00 Vascular Ultrasound Laboratory Carotid Artery Duplex Report [address] [place] [address] For quality control projectionist purposes, the categorization of the degree of the stenosis of this exam is based on criteria described in the IAC carotid stenosis grading white paper( ww w.intersocietal.org/Vascular) and Shakira Angulo., Sherry Ruth., et al. Carotid artery stenosis: davis-scale and Doppler US diagnosis--Society of Radiologists in Ultrasound Consensus Conference. Radiology. 2003 Nov; 229(2):340-6. Pat.Name: JUSTICE HARDY Pat.ID: [id number] .Date: 12/01/2020 Refer.MD: ANDREW CALIX MD Exam Time: 3:19:00 PM Study Type:Carotid Height: 64in Weight: 120lb BSA: 1.58 m2 Age: 7 1930,89Y Sex: MALE Sonogrphr: VINCENZO Leigh Pat. Stat.:Inpatient Room: [facility] 0850-A Tape Vol: GB, CPT - 4: 16396 Echo Event ID:[id number] Order ID: [id number] Reason for Study:Altered mental status. History of [...] 0.621 Signed 12/01/2020 09:56 PMShiva Leahy MD, RPVIInterkindred hospital [facility], Radiology Results In - 12/01/2020 9:57 PM CDT Vascular Ultrasound Laboratory Carotid Artery Duplex Report [address] [address] For quality control projectionist purposes, the categorization of the degree of the stenosis of this examis based on criteria described in the IAC carotid stenosis grading white paper( www.intersocietal.org/Vascular) and Shakira Angulo., Sherry Ruth., et al. Carotid artery stenosis: davis-scale and Doppler US diagnosis--Society of Radiologists in Ultrasound Consensus Conference. Radiology. 2003 Nov; 229(2):340 -6. Pat.Name: JUSTICE HARDY Pat.ID: [id number] .Date: 12/01/2020 Refer.MD: ANDREW CALIX MD Exam Time: 3:19:00 PM Study Type:Carotid Height: 64in Weight: 120lb BSA: 1.58 m2 Age: 7 1930,89Y Sex: MALE Sonogrphr: VINCENZO Leigh. Stat.:Inpatient Room: [address] Tape Vol: GB, CPT - 4: 89065 Echo Event ID:[id number] Order ID: [id number] Reason for Study:Altered mental status. History of [...] 0.621 Signed 12/01/2020 09:56 PMShiva Leahy MD, [facility] Transthoracic Echocardiogram Complete, (w Contrast, Strain and 3D if needed) 2020-12-01 19:37:00 Echocardiography Report [address]Name: JUSTICE HARDY Pat.ID: [id number] .Date: 12/01/2020 Refer.MD: ANDREW CALIX MDExam Time: 10:51:00 AM Study Type:Routine Echo Height: 64in Weight: 120lb BSA: 1.58 m2 Age: 7 1930,89Y Sex: MALE BP: 183/90 HR: 90 bpm Sonogrphr: ROSIE Mishra Pat. Stat.:Inpatient Room: [facility] Study Status:Final Echo Event ID:[id number] ID: [id number] Reason for Study:hx of TAVR History / [...] PA systolic p ressure. MEASUREMENTS: 2DParasternal [place] Ao An 1.9 cm LVPWd0.94 cm Ao [...] 12/01/2020 2:38 PM CDT Echocardiography Report [address] [place] [address] Pat.Name: JUSTICE HARDY Pat.ID: [id number] .Date: 12/01/2020 Refer.MD: ANDREW CALIX MDExam Time: 10:51:00 AM Study Type:Routine Echo Height: 64in Weight: 120lb BSA: 1.58 m2 Age: 7 1930,89Y Sex: MALE BP: 183/90 HR: 90 bpm Sonogrphr: ROSIE Mishra Pat. Stat.:Inpatient Room: [facility] Study Status:Final Echo Event ID:[id number] Order ID: [id number] Reason for Study:hx of TAVR History / [...] estimate PA systolic pressure. MEASUREMENTS: 2DParasternal [place] Ao An 1.9 cm LVPWd 0.94 cm [...] l/m/m2 Signed 12/01/2020 02:37 PMSherif Mara Magdaleno M.D.[facility] Wo Izmymvbc9083-10-76 19:08:27EXAMINATION: CT HEAD WO CONTRAST CLINICAL HISTORY: [...] cells are clear. IMPRESSION: Noacute intracranial abnormalities. [facility]-[id number] Interface, Radiology Results 11/30/2020 2:11 PM CDT [...] air cells are clear.IMPRESSION:No acute intracranial abnormalities .[facility]-[id number] St[facility] leukocytes automated count (number/volume)2020-09-28 05:25:00 Test Item Value Reference Range Interpretation Comments White Blood Count (test code = 6690-2) 10.37 4.8-10.8 [facility] erythrocytes automated count (number/volume)2020-09-28 05:25:00 Test Item Value Reference Range Interpretation Comments Red Blood Count (test code = 789-8) 3.00 4.3-5.7 [facility] Lake[facility] hemoglobin measurement (moles/volume)2020-09-28 05:25:00 Test Item Value Reference Range Interpretation Comments Hemoglobin (test code = 11515-5) 9.1 14.0-18.0 [facility] LakeAutomated blood hematocrit (volume fraction)2020-09-28 05:25:00 Test Item Value Reference Range Interpretation Comments Hematocrit (test code = 4544-3) 26.0 38.2-49.6 [facility] Lake[facility]ated erythrocyte mean corpuscular udxreo5795-48-74 05:25:00 Test Item Value Reference Range Interpretation Comments Mean Corpuscular Volume (test code = 86.7 81-99 787-2) [facility] Lake[facility] erythrocyte mean corpuscular hemoglobin (mass per erythrocyte)2020-09-28 05:25:00 Test Item Value Reference Range Interpretation Comments Mean Corpuscular Hemoglobin (test code 30.3 28-32 = 785-6) [facility] Lake[facility]ated erythrocyte mean corpuscular hemoglobin concentration measurement (mass/volume)2020-09-28 05:25:00 Test Item Value Reference Range Interpretation Comments Mean Corpuscular Hemoglobin Concent 35.0 31-35 (test code = 786-4) [facility] LakeRDW FxfNo-Vli2762-19-01 05:25:00 Test Item Value Reference Range Interpretation Comments Red Cell Distribution Width (test code 16.1 11.7-14.4 = 51921-9) [facility] Lake[facility] blood platelet count (count/volume)2020-09-28 05:25:00 Test Item Value Reference Range Interpretation Comments Platelet Count (test code = 777-3) 253 140-360 [facility] LakeAutomated blood segmented neutrophil count as percentage of total latdmeatvh3493-57-73 05:25:00 Test Item Value Reference Range Interpretation Comments Neutrophils (%) (Auto) (test code = 77.9 38.7-80.0 54309-4) [facility] Lake[facility] blood lymphocyte count as percentage ot total luyncfkmdp7173-89-63 05:25:00 Test Item Value Reference Range Interpretation Comments Lymphocytes (%) (Auto) (test code = 12.3 18.0-39.1 736-9) [facility] LakeAutomated blood monocyte count as percentage of total cjtewqtpvu6362-61-03 05:25:00 Test Item Value Reference Range Interpretation Comments Monocytes (%) (Auto) (test code = 6.4 4.4-11.3 5905-5) [facility] Lake[facility]ated blood eosinophil count as percentage of total xuoscdunkc0882-97-10 05:25:00 Test Item Value Reference Range Interpretation Comments Eosinophils (%) (Auto) (test code = 1.8 0.0-6.0 713-8) [facility] Lake[facility]ated blood basophil count as percentage of total qqhgsyxmgq0833-16-62 05:25:00 Test Item Value Reference Range Interpretation Comments Basophils (%) (Auto) (test code = 0.4 0.0-1.0 706-2) [facility] LakeFluoroscopic procedure less than one hour fkuzuffq3903-40-57 05:25:00 Test Item Value Reference Range Interpretation Comments IM GRANULOCYTES % (test code = IM 1.2 0.0-1.0 GRANULOCYTES %) [facility] LakeAutom[facility] blood neutrophil count 2020-09-28 05:25:00 Test Item Value Reference Range Interpretation Comments Neutrophils # (Auto) (test code = 8.1 2.1-6.9 751-8) [facility] LakeBlood lymphocytes count (number/volume) 2020-09-28 05:25:00 Test Item Value Reference Range Interpretation Comments Lymphocytes # (Auto) (test code = 1.3 1.0-3.2 99015-6) [facility] Lake[facility] monocytes automated count (number/volume)2020-09-28 05:25:00 Test Item Value Reference Range Interpretation Comments Monocytes # (Auto) (test code = 742-7) 0.7 0.2-0.8 [facility] LakeAutomated blood eosinophil count 2020-09-28 05:25:00 Test Item Value Reference Range Interpretation Comments Eosinophils # (Auto) (test code = 0.2 0.0-0.4 711-2) [facility] LakeAutomated blood basophil count (count/volume)2020-09-28 05:25:00 Test Item Value Reference Range Interpretation Comments Basophils # (Auto) (test code = 704-7) 0.0 0.0-0.1 [facility] LakeFluoroscopic procedure less than one hour zsewjzoq8344-29-76 05:25:00 Test Item Value Reference Range Interpretation Comments Absolute Immature Granulocyte (auto 0.12 0-0.1 (test code = Absolute Immature Granulocyte (auto) [facility] sodium measurement (moles/volume)2020-09-28 05:25:00 Test Item Value Reference Range Interpretation Comments Sodium Level (test code = 2951-2) 132 136-145 [facility] plasma potassium measurement (moles/volume)2020-09-28 05:25:00 Test Item Value Reference Range Interpretation Comments Potassium Level (test code = 2823-3) 3.3 3.5-5.1 [facility] plasma chloride measurement (moles/volume)2020-09-28 05:25:00 Test Item Value Reference Range Interpretation Comments Chloride Level (test code = 2075-0) 106 98-107 [facility] or plasma carbon dioxide, total measurement (moles/volume)2020-09-28 05:25:00 Test Item Value Reference Range Interpretation Comments Carbon Dioxide Level (test code = -8-9) [facility] or plasma anion byg2191-44-49 05:25:00 Test Item Value Reference Range Interpretation Comments Anion Gap (test code = 02297-6) 9.3 8-16 [facility] or plasma urea nitrogen measurement (mass/volume)2020-09-28 05:25:00 Test Item Value Reference Range Interpretation Comments Blood Urea Nitrogen (test code = 01-22 3094-0) [facility] creatinine measurement (mass/volume)2020-09-28 05:25:00 Test Item Value Reference Range Interpretation Comments Creatinine (test code = 2160-0) 0.83 0.72-1.25 [facility] or plasma urea nitrogen/creatinine mass gmtjx9345-00-11 05:25:00 Test Item Value Reference Range Interpretation Comments BUN/Creatinine Ratio (test code = 12-22 3097-3) [facility] LakeEstimated glomerular filtration rate (GFR) lzixvygfmvsfi5928-31-26 05:25:00 Test Item Value Reference Range Interpretation Comments Estimat Glomerular > 60 See_Comment [Automat ed message] The Filtration Rate (test system which generated code = 837443334) this resul t transmitted reference range : 60-. The reference r duane was not used to int erpret this result as normal/abnormal . [facility] LakeGlucose dqhrysbugly7777-91-39 05:25:00 Test Item Value Reference Range Interpretation Comments Glucose Level (test code = WVS4488) 104 74-118 [facility] plasma calcium measurement (mass/volume)2020-09-28 05:25:00 Test Item Value Reference Range Interpretation Comments Calcium Level (test code = 77867-2) 7.4 8.4-10.2 [facility] or plasma total bilirubin measurement (mass/volume)2020-09-28 05:25:00 Test Item Value Reference Range Interpretation Comments Total Bilirubin (test code = 1975-2) 0.7 0.2-1.2 [facility] LakeFluoroscopic procedure less than one hour uchweugc2518-49-26 05:25:00 Test Item Value Reference Range Interpretation Comments Aspartate Amino Transf (AST/SGOT) (test 74 5-34 code = Aspartate Amino Transf (AST/SGOT)) [facility] or plasma alanine aminotransferase measurement (enzymatic activity/volume)2020-09-28 05:25:00 Test Item Value Reference Range Interpretation Comments Alanine Aminotransferase (ALT/SGPT) 107 0-55 (test code = 1742-6) [facility] or plasma protein measurement (mass/volume)2020-09-28 05:25:00 Test Item Value Reference Range Interpretation Comments Total Protein (test code = 2885-2) 4.2 6.5-8.1 [facility]ere[facility] or plasma albumin measurement (mass/volume)2020-09-28 05:25:00 Test Item Value Reference Range Interpretation Comments Albumin (test code = 1751-7) 1.9 3.5-5.0 [facility] LakePlasma globulin measurement (mass/volume) 2020-09-28 05:25:00 Test Item Value Reference Range Interpretation Comments Globulin (test code = 91447-3) 2.3 2.3-3.5 [facility] or plasma albumin/globulin mass hwixm4622-15-48 05:25:00 Test Item Value Reference Range Interpretation Comments Albumin/Globulin Ratio (test code = 0.8 0.8-2.0 1759-0) [facility] or plasma alkaline phosphatase measurement (enzymatic activity/volume)2020-09-28 05:25:00 Test Item Value Reference Range Interpretation Comments Alkaline Phosphatase (test code = 100 40-150 6768-6) [facility] LakeTroponin I measurement by highly sensitive enzyme qyjjjtxjljt3982-51-83 05:25:00 Test Item Value Reference Range Interpretation Comments Troponin I (test code = 11306-5) 0.109 0-0.300 [facility] SINGLE (PORTABLE)2020-09-26 10:41:00[facility] : 1930 Sex: M [place] [address] Patient Name: JUSTICE HARDY MR #: [id number] : 1930 Age/Sex: 89/M Req #: [id number] Adm Physician: ZACHARIAH SAINI MD Ordered by: ARASH CASTORENA MD Report #: [id number] Location: MED/SURG Room/Bed: [facility] Procedure: [id number] DX/CHEST SINGLE (PORTABLE) Exam Date: 09/26/20 Exam [...] ARASH CASTORENA MDABDOMEN 2 VIEW 2020-09-26 09:13:00 [facility] : 1930 Sex: [place] [address] Patient Name: JUSTICE HARDY MR #: [id number] : 1930 Age/Sex: 89/M Req #: [id number] Adm Physician: ZACHARIAH SAINI MD Ordered by: JEANNINE SAINI MD Report #: [id number] Location: MED/SURG Room/Bed: [facility] Procedure: [id number] DX/ABDOMEN 2 VIEW Exam Date: 09/26/20 Exam [...] Natriuretic Peptide (test code = 50.2 0-100 35944-9) [facility] plasma amylase measurement (enzymatic activity/volume)2020-09-26 05:17:00 Test Item Value Reference Range Interpretation Comments Amylase Level (test code = 1798-8) 98 25-125 [facility] or plasma lipase measurement (enzymatic activity/volume)2020-09-26 05:17:00 Test Item Value Reference Range Interpretation Comments Lipase (test code = 3040-3) 98 8-78 [facility] LakeABDOMEN 2 [id number] 23:59:00 [facility] 1930 Sex: [place] [address] Patient Name: JUSTICE HARDY MR #: [id number] : 1930 Age/Sex: 89/M Req #: [id number] Adm Physician: ZACHARIAH SAINI MD Ordered by: JEANNINE SAINI MD Report #: [id number] Location: MED/SURG Room/Bed: [facility] Procedure: [id number] DX/ABDOMEN 2 VIEW Exam Date: 09/24/20 Exam Time: 2329 REPORT STATUS: Signed EXAM: Abdomen Radiograph 2 View(s) INDICATION: bloody stool [id number] 2330 Y COMPARISON: 09/15/2019 FINDINGS: Prosthetic heart [...] levels are seen in the right hemiabdomen. Anna lucency in the upper abdomen on the upright view projecting over the T12 vertebral body , likely represents pneumoperitoneum IMPRESSION: 1. Overall appearance of postsurgical ileus with diffuse mildly dilated small bowel and distended air distended colon to the level of the rectum. Distal obstruction is not excluded. Recommend radiographic follow-up until resolution. 2. Anna lucency projecting over the T12 vertebral body may represent pneumoperitoneum as seen on recent chest CT, possibly related to recent surgery. Signed by: Patricia Wheat MD on 09/25/2020 12:48 AM Dictated By: TIESHA WHEAT MD Transcribed By: AYDEN on 09/25/2047 COPY TO: JEANNINE SAINI MDSerum or plasma magnesium measurement (mass/volume)2020-09-23 16:40:00 Test Item Value Reference Range Interpretation Comments Magnesium Level (test code = 60195-5) 1.5 1.3-2.1 [facility] LakeFluoroscopic procedure less than one hour thfliatv9144-78-41 08:51:00 Test Item Value Reference Range Interpretation Comments Differential Total Cells Counted (test 100 code = Differential Total Cells Counted) [facility]100 leukocytes 2020-09-22 08:51:00 Test Item Value Reference Range Interpretation Comments Neutrophils % (Manual) (test code = 86 40-74 08655-8) [facility] blood band neutrophils form/100 wqswldxyvo7852-33-64 08:51:00 Test Item Value Reference Range Interpretation Comments Band Neutrophils % (test code = 764-1) 0 [facility] blood lymphocytes/100 leukocytes 2020-09-22 08:51:00 Test Item Value Reference Range Interpretation Comments Lymphocytes % (Manual) (test code = 7 19-48 737-7) [facility] blood monocytes/100 leukocytes 2020-09-22 08:51:00 Test Item Value Reference Range Interpretation Comments Monocytes % (Manual) (test code = 7 3.4-9.0 744-3) [facility] LakeAutomated reticulocyte count as percentage of total abxaytfmckyl0157-45-33 05:15:00 Test Item Value Reference Range Interpretation Comments Percent Reticulocyte Count (test code = 1.5 0.8-2.2 01384-0) [facility] iron measurement (mass/volume)2020-09-21 05:15:00 Test Item Value Reference Range Interpretation Comments Iron Level (test code = 2498-4) 26 65-175 [facility] or plasma iron binding capacity measurement (mass/volume)2020-09-21 05:15:00 Test Item Value Reference Range Interpretation Comments Total Iron Binding Capacity (test code 193 261-001 = 2500-7) [facility] plasma iron saturation measurement (mass fraction)2020-09-21 05:15:00 Test Item Value Reference Range Interpretation Comments Percent Iron Saturation (test code = 13 50 2502-3) [facility] plasma transferrin measurement (mass/volume)2020-09-21 05:15:00 Test Item Value Reference Range Interpretation Comments Transferrin (test code = 3034-6) 138 174-364 [facility] LakeBlood cobalamin (vitamin B12) measurement (mass/volume)2020-09-21 05:15:00 Test Item Value Reference Range Interpretation Comments Vitamin B12 Level (test code = 83806-4) 591 213-816 [facility] plasma folate measurement (mass/volume)2020-09-21 05:15:00 Test Item Value Reference Range Interpretation Comments Folate (test code = 2284-8) 17.8 >3.0 [facility] LakeCT CHEST [id number] 21:42:00 [facility] 1930 Sex: M [address] [place], [place] [address] Patient Name: JUSTICE HARDY MR #: [id number] : 1930 Age/Sex: 89/M Req #: [id number] [facility] Physician: ZACHARIAH SAINI MD Ordered by: AJ FLYNN DO Report #: [id number] Location: MED/SURG Room/Bed: [facility] Procedure: [id number] CT/CT CHEST W Exam Date: 09/20/20 Exam Time: 2114 REPORT STATUS: Signed EXAM: CT Chest WITH contrast 09/20/2020 9:15 PM INDICATION: PE [id number] 2114 COMPARISON: None TECHNIQUE: Chest was scanned [...] 09/20/202199 COPY TO: AJ FLYNN DO Phosphorus fjjxxermdcq6228-53-24 03:45:00 Test Item Value Reference Range Interpretation Comments Phosphorus Level (test code = PQF2688) 0.8 2.3-4.7 [facility] LakeCHES SINGLE (PORTABLE)2020-09-17 15:26:00[facility] : 1930 Sex: [place] [address] Patient Name: JUSTICE HARDY MR #: [id number] : 1930 Age/Sex: 89/M Req #: [id number] Adm Physician: ZACHARIAH SAINI MD Ordered by: ZACHARIAH SAINI MD Report #: [id number] Location: ICU Room/Bed: [place] [address] Procedure: [id number] DX/CHEST SINGLE (PORTABLE) Exam Date: 09/17/20 Exam Time: 1450 REPORT STATUS: Signed EXAMINATION: CHEST SINGLE (PORTABLE) INDICATION: SOB, tachypnea [id number] 1450 COMPARISON: Prior x-rays including most recent [...] wires. UPPER ABDOMEN: No free air un inchole the diaphragm. IMPRESSION: 1. Enteric tube terminates [...] (PT) in platelet poor plasma by coagulation gpiih4145-05-15 10:55:00 Test Item Value Reference Range Interpretation Comments Prothrombin Time (test code = 5902-2) 16.5 11.9-14.5 [facility] LakeINR in Platelet poor plasma by Coagulation edsiu1013-30-80 10:55:00 Test Item Value Reference Range Interpretation Comments Prothromb Time International Ratio 1.25 (test code = 6301-6) [facility] LakeCHES XRAY LINE RQZGVCOHI0156-17-99 20:57:00[facility] : 1930 Sex: [place] [address] Patient Name: JUSTICE HARDY MR #: [id number] : 1930 Age/Sex: 89/M Req #: [id number] Adm Physician: ZACHARIAH SAINI MD Ordered by: ZACHARIAH SAINI MD Report #: [id number] Location: ICU Room/Bed: ICU [facility] Procedure: [id number] DX/CHEST XRAY LINE PLACEMENT Exam Date: 09/16/20 [...] AYDEN on 09/16/202101 COPY TO: ZACHARIAH SAINI MDCGO[facility]ITALT SINGLE (PORTABLE)2020-09-15 14:55:00 [facility] 1930 Sex: M [address] [place], [place] [address] Patient Name: JUSTICE HARDY MR #: [id number] : 1930 Age/Sex: 89/M Req #: [id number] Adm Physician: ZACHARIAH SAINI MD Ordered by: DHARMESH LINARES MD Report #: [id number] Lo cation: MED/SURG Room/Bed: [facility] Procedure: [id number] DX/CHEST SINGLE (PORTABLE) Exam Date: 09/15/20 Exam [...] Signed By: SCHUYLER GUERRA MD on 09/15/20 459 Transcribed By: AYDEN on 09/15/201456 COPY TO: DHARMESH LINARES MDABDOMEN ACUTE SERIES W/PA CXR 2020-09-15 10:17:00 [facility] : 1930 Sex: [place] [address] Patient Name: JUSTICE HARDY MR #: [id number] : 1930 Age/Sex: 89/M Req #: [id number] Adm Physician: ZACHARIAH SAINI MD Ordered by: DHARMESH LINARES MD Report #: [id number] Lo cation: MED/SURG Room/Bed: [facility] Procedure: [id number] DX/ABDOMEN ACUTE SERIES W/PA CXR Exam Date: [...] 09/15/20 1020 COPY TO: DHARMESH LINARES [facility] ACUTE SERIES Rebecca/TENZIN [id number] 10:50:00 [facility] : 1930 Sex: [place] [address] Patient Name: JUSTICE HARDY MR #: [id number] : 1930 Age/Sex: 89/M Req #: [id number] Adm Physician: ZACHARIAH SAINI MD Ordered by: DHARMESH LINARES MD Report #: [id number] Lo cation: MED/SURG Room/Bed: [facility] Procedure: [id number] DX/ABDOMEN ACUTE SERIES W/PA CXR Exam Date: 09/14/20 Exam Time: 1020 REPORT STATUS: Signed X-ray abdomen acute series with 2 views of the abdomen and a single view of the chest INDICATION: sbo [id number] 1020 Comparison: X-ray dated 09/14/2019. Discussion: Lungs [...] (test code = 2157-6) 385 30-200 [facility] or plasma creatine kinase MB measurement (mass/volume)2020-09-13 11:24:00 Test Item Value Reference Range Interpretation Comments Creatine Kinase MB (test code = 2.90 0-5.0 66814-7) [facility] LakeABDOMEN 2 [id number] 09:26:00 [facility] : 1930 Sex: M [facility] [address] [place] [address] Patient Name: JUSTICE HARDY MR #: [id number] : 1930 Age/Sex: 89/M Req #: [id number] Adm Physician: ZACHARIAH SAINI MD Ordered by: SHANNAN CERVANTES MD Report #: [id number] Location: MED/SURG Room/Bed: [facility] Procedure: [id number] DX/ABDOMEN 2 VIEW Exam Date: 09/13/20 Exam [...] code = Lactic 0.7 0.5-2.0 Acid Level) [facility] LakeFluoroscopic procedure less than one hour gqcjnsyg3557-45-43 19:02:00 Test Item Value Reference Range Interpretation Comments Coronavirus (PCR) (test code = NOT DETECTED NOTDETECTED Coronavirus (PCR)) [facility] LakeCT ABD/PEL WO [id number] 17:30:00[facility] : 1930 Sex: [place] [address] Patient Name: JUSTICE HARDY MR #: [id number] : 1930 Age/Sex: 89/M Req #: [id number] [facility] Physician: Ordered by: SHANNAN CERVANTES MD Report #: [id number] Location: [facility] Room/Bed: Procedure: [id number] HOPD/CT ABD/PEL WO CONTRAST-HOPD Exam Date: 09/12/20 Exam Time: 1657 REPORT STATUS: Signed EXAM: CT Abdomen and Pelvis WITHOUT contrast INDICATION: abd pain, nausea, retching [id number] 1658 COMPARISON: CT abdomen and pelvis on [...] 09/12/201744 COPY TO: SHANNAN CERVANTES MDCT ABDOMEN/PELVIS [id number] 15:20:00 [place] [address] Patient Name: JUSTICE HARDY MR #: [id number] : 1930 Age/Sex: 89/M Req #: [id number] Adm Physician: Mario boyd by: JEANNINE SAINI MD Report #: [id number] Location: CT Room/Bed: Procedure: [id number] CT/CT ABDOMEN/PELVISWO Exam Date: 03/02/20 Exam Time: [...]
[2021-06-28 14:26] LABS: Absolute Lymphocytes (CBC) 1.2 K/uL (0.7-4.9); Hematocrit 35.6 % (39.6-49.0); Lymphocytes % 15.4 % (15.3-44.8); MPV 8.1 fL (7.6-11.3); RBC Red Blood Cell Count 4.33 M/uL (4.33-5.43)
[2021-06-28 14:28] LABS: Protime INR 1.25
[2021-06-28 14:52] LABS: ALT/SGPT 19 U/L (12-78); AST/SGOT 18 U/L (15-37); Albumin 3.2 g/dL (3.4-5.0); Alkaline Phosphatase 73 U/L (45-117); BUN Blood Urea Nitrogen 28 mg/dL (7-18); Bicarbonate 24 mmol/L (21-32); Bilirubin Direct < 0.1 mg/dL (0-0.2); Bilirubin Total 0.2 mg/dL (0.2-1.0); Glucose Level 103 mg/dL (74-106); Magnesium 2.3 mg/dL (1.8-2.4); NT PRO-BNP 2908 pg/mL (<450); Potassium 4.1 mmol/L (3.5-5.1); Protein, Total 7.1 g/dL (6.4-8.2); Sodium Level 134 mmol/L (136-145); Troponin (Emerg Dept Use Only) < 0.02 ng/mL (0.0-0.045)
--- NOTE | 2021-06-28 15:13 | RAD REPORT ---
EXAM DESCRIPTION: Padmini Single View06/28/2021 2:48 pm CLINICAL HISTORY: Chest pain COMPARISON: April 2021 FINDINGS: Mild bilateral pulmonary opacities. Heart is mildly to moderately enlarged. Postsurgical changes involve the chest IMPRESSION: These findings may indicate mild CHF
--- NOTE | 2021-06-28 18:44 | ER ---
Nurse's Notes [facility] Name: Benito Castaneda Age: 89 yrs Sex: Male : 1930 Arrival Date: 06/28/2021 Time: 13:35 Bed Waiting Private MD: Diagnosis: Presentation: 06/28 13:46 Chief complaint: Patient states: chest pain, Nausea, abdominal pain. pt had heart dunn attack x3 weeks ago. Coronavirus screen: Vaccine status: Patient reports receiving the 2nd dose of the covid vaccine. Ebola Screen: Patient denies travel to an Ebola-affected area in the 21 days before illness onset. Initial Sepsis Screen: Does the patient meet any 2 criteria? No. Patient's initial sepsis screen is negative. Does the patient have a suspected source of infection? No. Patient's initial sepsis screen is negative. Risk Assessment: Do you want to hurt yourself or someone else? Patient reports no desire to harm self or others. Onset of symptoms was June 28, 2021. 13:46 Method Of Arrival: EMS: [facility] 13:46 Acuity: ANT 3 dunn Triage Assessment: 13:48 General: Appears in no apparent distress. Behavior is calm, cooperative. Pain: dunn Complains of pain in chest and abdomen. 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 - Social history:: Smoking status: Patient denies any tobacco usage or history of. Vital Signs: 13:46 BP 127 / 61; Pulse 61; Resp 18; Temp 97.4; Pulse Ox 99% ; Weight 58.97 kg; Height 5 ft. dunn 4 in. (162.56 cm); 13:46 Body Mass Index 22.31 (58.97 kg, 162.56 cm) dunn ED Course: 13:35 Patient arrived in ED. as 13:48 Triage completed. dunn 13:48 Arm band placed on left wrist. dunn 14:48 XRAY Chest (1 view) In Process Unspecified. EDMS Administered Medications: No medications were administered Outcome: 18:43 Patient left the ED. dunn Signatures: Dispatcher [employer] EDRaven Flood Au-StagerKaye RN RN dunn
[2021-06-28 18:48] VITALS: BP 127/61; TEMP 97.4; O2SAT 99
== END 2021-06-28 18:43 | disposition left against medical advice (07) ==
LOC: ER 13:32
DX: Z53.21 Procedure and treatment not carried out due to patient leaving prior to being seen by health care provider (principal)
CPT/HCPCS: 36415; 71045; 80048; 80076; 83735; 83880; 84484; 85025; 85610; 93005; 99283

== ENCOUNTER 2021-07-16 06:37 | Emergency (ER) | payer OTHER, BC ==
--- OUTSIDE RECORDS SUMMARY | 2021-07-16 06:44 | XMS REPORT | Continuity of Care Document ---
:1930 Author Organization [facility] t Address [address] [place] [address] Care Team Providers Name Role Phone Asked, No Pcp Primary Care Physician Unavailable FIFI Attending Clinician Unavailable MD Chantelle MATA Attending Clinician Unavailable ANNIE Attending Clinician Unavailable 2030_Biopsy Attending Clinician Unavailable ATTAR Attending Clinician Unavailable MELO Attending Clinician Unavailable Ivory DAHL Attending Clinician Unavailable Pob, Lab Main Attending Clinician Unavailable Anthony GARCIA, S Attending Clinician Sherrill CRUZ Attending Clinician Unavailable Doctor Unassigned, Name Attending Clinician Unavailable Singer AGUIRRE Attending Clinician May Peralta Attending Clinician Ivory Whaley Attending Clinician Ivory CARDONA Attending Clinician Unavailable YENY Attending Clinician Unavailable YENY Attending Clinician Unavailable FIFI Admitting Clinician Unavailable MD Chantelle MATA Admitting Clinician Unavailable 2030_Biopsy Admitting Clinician Unavailable SAINI Admitting Clinician Unavailable Payers Payer Name Policy Type Policy Effective Date Expiration Date Sour ce Number BCBS FED SELECT [id number] 2015 00:00:00 MEDICARE PART A \T\ B [id number] 1996 00:00:00 MEDICAREMEDICARE PART [id number] 1996 Me thodist A AND 00:00:00 Hospital [id number] 1996- [place] [place] CHOICE [id number] 2015 [facility] PPO/FEDERAL EMPL 00:00:00 Hospital [id number] 2015- PresentPPO DEPT OF [id number] 2017 Methodis t AFFAIRSDEPT OF 00:00:00 [facility] [id number]/ 05/2017-PresentMilita ry [facility] Federal [id number] [address] [facility] Medicare A & B [id number] [address] 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 Added automatic ally from request for surgery [id number] Small Problem Active [facility] - obstructio Patien t n [facility] Nausea Problem Active [facility] Patient [facility] Hypomagnes Problem Active [facility] emia [facility] Patient [facility] Leukocytos Problem Active [facility] t. is [facility] Patient [facility] Hypertensi Problem Active [facility] t[facility] 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 pain [facility] No known No known Disease Unive rs active active ity of problems problems [facility] Allergies, Adverse Reactions, Alerts Allergy Allergy [...] [facility] - substanc 00:00: Patient e 00 [facility] Doxazosi Allergy Active 2018-[address] [facility] [facility] to 2-17 [facility] - substanc 00:00: Patient e 00 [facility] NO KNOWN Drug Active Univers ALLERGIE Class ity of S [facility] doxazosi DA Active [facility] iodine DA Active [facility] Family History Family Member Diagnosis Comments Start Date Stop Date Source Natural brother Heart disease [facility] ist [facility] Natural father Heart disease [facility] Natural father Hypertension [facility] Natural mother Alzheimer's disease [facility] sister Other [facility] Social History Social Habit Start Date Stop Date Quantity Comments Source Exposure to Not sure [facility] SARS-CoV-2 (event) [facility] History of tobacco Smoker Method ist use Hospital Cigarettes smoked 2021-02-20 2021-02-[address] current (pack per 00:00:00 00:00:00 Hospita l day) - Reported Cigarette 2021-02-20 2021-02-20 [facility] pack-years 00:00:00 00:00:00 Hospital Alcohol intake 2021-01-10 2021-01-10 Current University of 00:00:00 00:00:00 non-drinker of [facility] alcohol (finding) Branch Tobacco use and 2021-01-10 2021-01-10 Never used Universit y of exposure 00:00:00 00:00:00 [facility] Alcohol Comment 2017-12-10 2017-12-10 ocassional [facility] 00:00:00 00:00:00 Hospital Sex Assigned At [birth year] [facility] y of 00:00:00 00:00:00 [facility] Smoking Status Start Date Stop Date Source Former smoker 2021-02-20 00:00:00 2021-02-20 00:00:00 [facility] Never smoker [facility] Medications Ordered Filled Start Stop Current Ordering Indication Dosage Frequency Signature Comments Components Source Medication Medication Date Date Medication? Clinician (SIG) Name Name latonia 2020- No 38063M Q7D Take 1 M ethodi rol 02-27 [...] 21 (two) l times a day. lisinopriL 0 Yes 10mg Q.5D Take 10 mg M [...] 10mg Q.5D Take 10 mg Methodi (PRINIVIL) 825 08-[address] 5 mg tablet [...] No 15mL 15 mL, Uni vers enhydrAMINE 01-1620 Oral, ity of :lidocaine2 08:15: 07[place]12 [place] 1 [place] %viscous 00 :00 dose, Tue Medica l 1:1:1: 01/16/21 at Branch suspension 0315, (COMPOUNDED Routine ) cloNIDine 2020- No .1mg 0.1 mg, Univ ers (CATAPRES) 01-16 07-20 Oral, ity of tablet 0.1 07:15: 06:15 ONCE, 1 [place] as mg 00 :00 dose, Tue Medical 01/16/21 at Branch 0215, STAT cloNIDine 2020- No .1mg 0.1 mg, Univ ers (CATAPRES) 01-16 07-20 Oral, ity of tablet 0.1 05:45: 04:45 ONCE, 1 [place] mg 00 :00 dose, Tue Medical 01/16/21 at Branch 0045, STAT amLODIPine Yes 10mg Take 10 mg U nivers 10 mg 7-02 by mouth ity of tablet 18:08: daily. [place] [address] Medical Branch aspirin 325 0 Yes 325mg Take 325 U nivers mg tablet 7-02 mg by ity of 18:08: mouth [place] 23 daily. Medical Branch valsartan-h Yes 1{tbl} Take 1 Un alma ydrochlorot 7-02 tablet by ity of hiazide 18:08: mouth [place] 160-12.5 mg 23 daily. Medica l per tablet Branch eszopiclone Yes 3mg Take 3 mg U nivers 3 mg tablet 7-02 by mouth ity of 18:08: at [place] [address] bedtime. Medical Branch cloNIDine 0 Yes .1mg Take 0.1 Univ ers 0.1 mg 7-02 mg by ity of tablet 18:08: mouth 3 [place] [address] (three) Medical times Branch daily. apixaban Yes 2.5mg Take 2.5 Univ ers (ELIQUIS) 7-02 mg by ity of 2.5 mg 18:08: mouth 2 [place] tablet 23 (two) Medical times Branch daily. omeprazole Yes 40mg Take 40 mg U nivers 40 mg 7-02 by mouth ity of capsule 18:08: daily. [address] Branch lisinopriL Yes 5mg Take 5 mg Un alma 5 mg tablet 7-02 by mouth ity of 18:08: daily. [address] Branch finasteride Yes 5mg Take 5 mg U nivers 5 mg tablet 7-02 by mouth ity of 18:08: daily. [address] Branch amLODIPine Yes 10mg Take 10 mg U nivers 10 mg 7-02 by mouth ity of tablet 18:08: daily. [place] [address] Medical Branch aspirin 325 0 Yes 325mg Take 325 U nivers mg tablet 7-02 mg by ity of 18:08: mouth [place] 23 daily. Medical Branch valsartan-h Yes 1{tbl} Take 1 Un alma ydrochlorot 7-02 tablet by ity of hiazide 18:08: mouth [place] 160-12.5 mg 23 daily. Medica l per tablet Branch eszopiclone Yes 3mg Take 3 mg U nivers 3 mg tablet 7-02 by mouth ity of 18:08: at [place] [address] bedtime. Medical Branch cloNIDine Yes .1mg Take [...] by mouth ity of capsule 18:08: daily. [place] [address] Medical Branch lisinopriL Yes 5mg Take 5 mg Un alma 5 mg tablet 7-02 by mouth ity of 18:08: daily. [place] [address] Medical Branch finasteride Yes 5mg Take 5 mg U nivers 5 mg tablet 7-02 by mouth ity of 18:08: daily. [place] [address] Medical Branch amLODIPine Yes 10mg Take 10 mg U nivers 10 mg 7-02 by mouth ity of tablet 18:08: daily. [place] [address] Medical Branch aspirin 325 0 Yes 325mg [...] 7-02 by mouth ity of 18:08: at [place] [address] bedtime. Medical Branch cloNIDine Yes .1mg Take [...] by mouth ity of capsule 18:08: daily. [place] [address] Medical Branch lisinopriL 2020-0 Yes 5mg Take 5 mg Un alma 5 mg tablet 7-02 by mouth ity of 18:08: daily. [place] [address] Medical Branch finasteride 2020-0 Yes 5mg Take 5 mg U nivers 5 mg tablet 7-02 by mouth ity of 18:08: daily. [place] [address] Medical Branch amLODIPine 0 Yes 10mg Take 10 mg U nivers 10 mg 7-02 by mouth ity of tablet 18:08: daily. [place] [address] Medical Branch aspirin 325 2020-0 Yes 325mg Take 325 U nivers mg tablet 7-02 mg by ity of 18:08: mouth [place] 23 daily. Medical Branch valsartan-h 0 Yes 1{tbl} Take 1 Un alma ydrochlorot 7-02 tablet by ity of hiazide 18:08: mouth [place] 160-12.5 mg 23 daily. Medica l per tablet Branch eszopiclone Yes 3mg Take 3 mg U nivers 3 mg tablet 7-02 by mouth ity of 18:08: at [place] 23 bedtime. Medical Branch cloNIDine 2020-0 Yes .1mg Take 0.1 Univ ers 0.1 mg 7-02 mg by ity of tablet 18:08: mouth 3 [place] 23 (three) Medical times Branch daily. apixaban 0 Yes 2.5mg Take 2.5 Univ ers (ELIQUIS) 7-02 mg by ity of 2.5 mg 18:08: mouth 2 [place] tablet 23 (two) Medical times Branch daily. omeprazole 0 Yes 40mg Take 40 mg U nivers 40 mg 7-02 by mouth ity of capsule 18:08: daily. [place] [address] Medical Branch lisinopriL 2020-0 Yes 5mg Take 5 mg Un alma 5 mg tablet 7-02 by mouth ity of 18:08: daily. [place] [address] Medical Branch finasteride 2020-0 Yes 5mg Take 5 mg U nivers 5 mg tablet 7-02 by mouth ity of 18:08: daily. [place] [address] Medical Branch amLODIPine 0 Yes 10mg Take 10 mg U nivers 10 mg 7-02 by mouth ity of tablet 18:08: daily. [place] [address] Medical Branch aspirin 325 0 Yes 325mg [...] 7-02 by mouth ity of 18:08: at [place] [address] bedtime. Medical Branch cloNIDine 0 Yes .1mg Take 0.1 Univ ers 0.1 mg 7-02 mg by ity of tablet 18:08: mouth 3 [place] [address] (three) Medical times Branch daily. apixaban Yes 2.5mg Take 2.5 Univ ers (ELIQUIS) 7-02 mg by ity of 2.5 mg 18:08: mouth 2 [place] tablet 23 (two) Medical times Branch daily. omeprazole Yes 40mg Take 40 mg U nivers 40 mg 7-02 by mouth ity of capsule 18:08: daily. [place] [address] Medical Branch lisinopriL 0 Yes 5mg Take 5 mg Un alma 5 mg tablet 7-02 by mouth ity of 18:08: daily. [place] [address] Medical Branch finasteride Yes 5mg Take 5 mg U nivers 5 mg tablet 7-02 by mouth ity of 18:08: daily. [place] [address] Medical Branch amLODIPine Yes 10mg Take 10 mg U nivers 10 mg 7-02 by mouth ity of tablet 18:08: daily. [place] [address] Medical Branch aspirin 325 0 Yes 325mg Take 325 U nivers mg tablet 7-02 mg by ity of 18:08: mouth [place] 23 daily. Medical Branch valsartan-h Yes 1{tbl} Take 1 Un alma ydrochlorot 7-02 tablet by ity of hiazide 18:08: mouth [place] 160-12.5 mg 23 daily. Medica l per tablet Branch eszopiclone Yes 3mg Take 3 mg U nivers 3 mg tablet 7-02 by mouth ity of 18:08: at [place] [address] bedtime. Medical Branch cloNIDine Yes .1mg Take [...] by mouth ity of capsule 18:08: daily. [place] [address] Medical Branch lisinopriL Yes 5mg Take 5 mg Un alma 5 mg tablet 7-02 by mouth ity of 18:08: daily. [place] [address] Medical Branch finasteride Yes 5mg Take 5 mg U nivers 5 mg tablet 7-02 by mouth ity of 18:08: daily. [place] [address] Medical Branch amLODIPine Yes 10mg Take 10 mg U nivers 10 mg 7-02 by mouth ity of tablet 18:08: daily. [place] [address] Medical Branch aspirin 325 0 Yes 325mg [...] 7-02 by mouth ity of 18:08: at [place] [address] bedtime. Medical Branch cloNIDine Yes .1mg Take [...] by mouth ity of capsule 18:08: daily. [place] [address] Medical Branch lisinopriL 2020-0 Yes 5mg Take 5 mg Un alma 5 mg tablet 7-02 by mouth ity of 18:08: daily. [place] [address] Medical Branch finasteride 2020-0 Yes 5mg Take 5 mg U nivers 5 mg tablet 7-02 by mouth ity of 18:08: daily. [place] [address] Medical Branch amLODIPine 0 Yes 10mg Take 10 mg U nivers 10 mg 7-02 by mouth ity of tablet 18:08: daily. [place] [address] Medical Branch aspirin 325 2020-0 Yes 325mg Take 325 U nivers mg tablet 7-02 mg by ity of 18:08: mouth [place] 23 daily. Medical Branch valsartan-h 0 Yes 1{tbl} Take 1 Un alma ydrochlorot 7-02 tablet by ity of hiazide 18:08: mouth [place] 160-12.5 mg 23 daily. Medica l per tablet Branch eszopiclone Yes 3mg Take 3 mg U nivers 3 mg tablet 7-02 by mouth ity of 18:08: at [place] 23 bedtime. Medical Branch cloNIDine 2020-0 Yes .1mg Take 0.1 Univ ers 0.1 mg 7-02 mg by ity of tablet 18:08: mouth 3 [place] 23 (three) Medical times Branch daily. apixaban 0 Yes 2.5mg Take 2.5 Univ ers (ELIQUIS) 7-02 mg by ity of 2.5 mg 18:08: mouth 2 [place] tablet 23 (two) Medical times Branch daily. omeprazole 0 Yes 40mg Take 40 mg U nivers 40 mg 7-02 by mouth ity of capsule 18:08: daily. [place] [address] Medical Branch lisinopriL 2020-0 Yes 5mg Take 5 mg Un alma 5 mg tablet 7-02 by mouth ity of 18:08: daily. [place] [address] Medical Branch finasteride 2020-0 Yes 5mg Take 5 mg U nivers 5 mg tablet 7-02 by mouth ity of 18:08: daily. [address] Dutasteride Yes Take by Un alma -Tamsulosin 12-29 mouth. ity of 0.5-0.4 mg 18:08: [address] Dutasteride Yes Take by Un alma -Tamsulosin 12-29 mouth. ity of 0.5-0.4 mg 18:08: [address] Dutasteride Yes Take by Un alma -Tamsulosin 12-29 mouth. ity of 0.5-0.4 mg 18:08: [address] Branch Dutasteride Yes Take by Un alma -Tamsulosin 12-29 mouth. ity of 0.5-0.4 mg 18:08: [address] Dutasteride Yes Take by Un alma -Tamsulosin 12-29 mouth. ity of 0.5-0.4 mg 18:08: [address] Dutasteride Yes Take by Un alma -Tamsulosin 12-29 mouth. ity of 0.5-0.4 mg 18:08: [address] Branch Dutasteride Yes Take by Un alma -Tamsulosin 12-29 mouth. ity of 0.5-0.4 mg 18:08: [address] Dutasteride Yes Take by Un alma -Tamsulosin 12-29 mouth. ity of 0.5-0.4 mg 18:08: [address] tamsulosin 2020- No .4mg QD Take 0.4 Me thodi (FLOMAX) 12-04 06-[address] 0.4 mg 20:23: 00:00 mouth Hospita capsule 43 :00 daily. l tamsulosin 2020- No .4mg Q.5D Take 1 Meth marcella (FLOMAX) 12-04 07-[address] 0.4 mg 00:00: 04:59 (0.4 mg Hospita capsule 00 :00 total) by l mouth 2 (two) times a day for 30 days. levoFLOXaci 2020- No 500mg QD Take 1 Me thodi n 6-07 06-[address] (Levaquin) 00:00: 04:59 (500 mg Hos peter 500 MG 00 :00 total) by l tablet mouth daily for 4 days. traMADoL 2020- [place] 61033 50mg Q6H Take 50 mg M ethodi [...] by mouth ity of tablet 18:24: daily. [place] [address] Medical Branch aspirin 325 Yes 325mg Take [...] by mouth ity of tablet 18:24: daily. [place] 36 Medical Branch aspirin 325 Yes 325mg Take [...] Besylate Besylate [facility] Aspirin Aspirin Yes Daily [facility] (Aspir 81) (Aspir 81) Tal es - 81 Mg 81 Mg Patient TABLET.DR SHIPLEY.DR lino [facility] [place] Hydrochloro Hydrochloro Yes 12.[address] thiazide thiazide [facility] - (Hydrochlor (Hydrochlor P atient othiazide*) othiazide*) s 25 Mg 25 Mg Medical TABLET TABLET Center Tamsulosin Tamsulosin Yes .[address] Hcl Hcl [facility] - (Flomax*) (Flomax*) Patie nt 0.4 Mg CAP 0.4 Mg CAP [facility] [place] Vital Signs Vital Name Observation Time Observation Value Comments Source Systolic blood 2021-01-16 07:00:00 187 mm[Hg] Univer sity of pressure [facility] Diastolic blood 2021-01-16 07:00:00 90 mm[Hg] [facility] Heart rate 2021-01-16 07:00:00 76 /min [facility] Respiratory rate 2021-01-16 07:00:00 20 /min [facility] Oxygen saturation in 2021-01-16 07:00:00 97 /min [facility] Arterial blood by [facility] Pulse oximetry Branch Body temperature 2021-01-16 04:24:00 37.06 Ayana [facility] Body weight 2021-01-16 04:24:00 58.968 kg [facility] BMI 2021-01-16 04:24:00 22.31 kg/m2 [facility] [place] [facility] Systolic blood 2021-01-11 02:55:00 175 mm[Hg] Univer sity of pressure [place] [facility] Diastolic blood 2021-01-11 02:55:00 85 mm[Hg] Unive rsity of pressure [place] [facility] Heart rate 2021-01-11 02:55:00 73 /min [facility] [place] [facility] Respiratory rate 2021-01-11 02:55:00 16 /min Univ ersity [facility] [place] [facility] Oxygen saturation in 2021-01-11 02:55:00 96 /min University of Arterial blood by [place] [employer] hemal Pulse oximetry Branch Body temperature 2021-01-10 23:48:00 37.22 Ayana [facility] [place] [facility] Body weight 2021-01-10 23:48:00 58.968 kg [facility] [place] [facility] BMI 2021-01-10 23:48:00 22.31 kg/m2 [facility] [place] [facility] Systolic blood 2020-12-29 18:08:00 132 mm[Hg] Univer sity of pressure [place] [facility] Diastolic blood 2020-12-29 18:08:00 65 mm[Hg] Unive rsity of pressure [place] [facility] Heart rate 2020-12-29 18:03:00 65 /min [facility] [place] [facility] Body temperature 2020-12-29 18:03:00 36.44 Ayana [facility] [place] [facility] Respiratory rate 2020-12-29 18:03:00 16 /min [facility] ers[facility] [place] [facility] Body height 2020-12-29 18:03:00 162.6 cm [facility] [place] [facility] Body weight 2020-12-29 18:03:00 59.013 kg [facility] [place] [facility] BMI 2020-12-29 18:03:00 22.33 kg/m2 [facility] [place] [facility] Oxygen saturation in 2020-12-29 18:03:00 98 /min University of Arterial blood by [place] [employer] hemal Pulse oximetry Branch Systolic blood 2020-12-29 18:08:00 132 mm[Hg] Univer sity of pressure [place] [facility] Diastolic blood 2020-12-29 18:08:00 65 mm[Hg] Unive rsity of pressure [place] [facility] Heart rate 2020-12-29 18:03:00 65 /min [facility] Body temperature 2020-12-29 18:03:00 36.44 Ayana [facility] Respiratory rate 2020-12-29 18:03:00 16 /min [facility] Body height 2020-12-29 18:03:00 162.6 cm [facility] Body weight 2020-12-29 18:03:00 59.013 kg [facility] BMI 2020-12-29 18:03:00 22.33 kg/m2 [facility] Oxygen saturation in 2020-12-29 18:03:00 98 /min [facility] Arterial blood by [facility] Pulse oximetry [place] Heart rate 2021-02-23 17:45:00 55 /min [facility] Respiratory rate 2021-02-23 17:45:00 20 /min [facility] Oxygen saturation in 2021-02-23 17:45:00 99 /min [facility] Arterial blood by Pulse oximetry Systolic blood 2021-02-23 16:34:54 158 mm[Hg] [facility] pressure Diastolic blood 2021-02-23 16:34:54 75 mm[Hg] [facility] pressure Body temperature 2021-02-23 16:34:54 36.61 Ayana [facility] Body weight 2021-02-21 10:06:00 59.467 kg [facility] BMI 2021-02-21 10:06:00 22.50 kg/m2 [facility] Body height 2021-02-20 11:07:00 162.6 cm [facility] BP Diastolic 2020-09-28 12:46:00 76 mm[Hg] [facility] BP Systolic 2020-09-28 12:46:00 149 mm[Hg] [facility] Oxygen saturation by 2020-09-28 12:46:00 99 /min [facility] - Pulse oximetry Patients [facility] Heart Rate 2020-09-28 12:46:00 85 /min [facility] Respiratory rate 2020-09-28 12:46:00 22 /min [facility] Body Temperature 2020-09-28 12:46:00 97.7 [degF] [facility] Heart Rate 2020-09-28 08:42:00 81 /min [facility] Respiratory rate 2020-09-28 08:42:00 24 /min [facility] Body Temperature 2020-09-28 08:42:00 97.4 [degF] [facility] BP Diastolic 2020-09-28 08:42:00 60 mm[Hg] [facility] BP Systolic 2020-09-28 08:42:00 141 mm[Hg] [facility] Oxygen saturation by 2020-09-28 08:42:00 96 /min [facility] - Pulse oximetry Patients [facility] BP Diastolic 2020-09-28 08:36:00 60 mm[Hg] [facility] BP Systolic 2020-09-28 08:36:00 141 mm[Hg] [facility] Oxygen saturation by 2020-09-28 08:36:00 96 /min [facility] - Pulse oximetry Patients [facility] Heart Rate 2020-09-28 08:36:00 81 /min [facility] Respiratory rate 2020-09-28 08:36:00 24 /min [facility] Body Temperature 2020-09-28 08:36:00 97.4 [degF] [facility] Oxygen saturation by 2020-09-28 08:17:00 96 /min [facility] - Pulse oximetry Patients [facility] Heart Rate 2020-09-28 08:17:00 80 /min [facility] Respiratory rate 2020-09-28 08:17:00 20 /min [facility] Oxygen saturation by 2020-09-28 07:49:00 96 /min [facility] - Pulse oximetry Patients [facility] Heart Rate 2020-09-28 07:49:00 80 [...] [facility] - Pulse oximetry Patients [facility] Heart Rate 2020-09-28 04:00:00 85 /min [facility] Respiratory rate 2020-09-28 04:00:00 20 /min [facility] [place] Body Temperature 2020-09-28 04:00:00 97.7 [degF] [facility] Oxygen saturation by 2020-09-28 02:48:00 98 /min [facility] - Pulse oximetry Patients [facility] Heart Rate 2020-09-28 02:48:00 85 /min [facility] Respiratory rate 2020-09-28 02:48:00 18 /min [facility] Oxygen saturation by 2020-09-28 02:40:00 95 /min [facility] - Pulse oximetry Patients [facility] Heart Rate 2020-09-28 02:40:00 87 [...] [facility] - Pulse oximetry Patients [facility] Heart Rate 2020-09-28 00:00:00 92 [...] [facility] - Pulse oximetry Patients [facility] Heart Rate 2020-09-27 20:00:00 99 /min [facility] Respiratory rate 2020-09-27 20:00:00 18 /min [facility] Body Temperature 2020-09-27 20:00:00 98.1 [degF] [facility] Oxygen saturation by 2020-09-27 19:53:00 100 /min [facility] - Pulse oximetry Patients [facility] Heart Rate 2020-09-27 19:53:00 96 /min [facility] Respiratory rate 2020-09-27 19:53:00 18 /min [facility] Oxygen saturation by 2020-09-27 19:45:00 97 /min [facility] - Pulse oximetry Patients [facility] Heart Rate 2020-09-27 19:45:00 99 [...] [facility] - Pulse oximetry Patients [facility] Heart Rate 2020-09-27 15:21:00 103 /min [facility] Respiratory rate 2020-09-27 15:21:00 20 /min [facility] Body Temperature 2020-09-27 15:21:00 98.5 [degF] [facility] Oxygen saturation by 2020-09-27 14:45:00 99 /min [facility] - Pulse oximetry Patients [facility] Heart Rate 2020-09-27 14:45:00 103 /min [facility] Respiratory rate 2020-09-27 14:45:00 20 /min [facility] Oxygen saturation by 2020-09-27 14:30:00 95 /min [facility] - Pulse oximetry Patients [facility] Heart Rate 2020-09-27 14:30:00 103 /min [facility] Respiratory rate 2020-09-27 14:30:00 20 /min [facility] BP Diastolic 2020-09-27 11:13:00 56 mm[Hg] [facility] BP Systolic 2020-09-27 11:13:00 123 mm[Hg] [facility] Oxygen saturation by 2020-09-27 11:13:00 99 /min [facility] Heart Rate 2020-09-27 11:13:00 88 [...] [facility] Heart Rate 2020-09-27 08:15:00 105 [...] [facility] Heart Rate 2020-09-27 07:58:00 105 /min [facility] Respiratory rate 2020-09-27 07:58:00 16 /min [facility] Body Temperature 2020-09-27 07:58:00 97.6 [degF] [facility] Oxygen saturation by 2020-09-27 07:15:00 99 /min [facility] Heart Rate 2020-09-27 07:15:00 105 /min [facility] Respiratory rate 2020-09-27 07:15:00 16 /min [facility] Oxygen saturation by 2020-09-27 07:00:00 95 /min [facility] Heart Rate 2020-09-27 07:00:00 105 /min [facility] Respiratory rate 2020-09-27 07:00:00 16 /min [facility] Oxygen saturation by 2020-09-27 00:05:00 100 /min [facility] Heart Rate 2020-09-27 00:05:00 91 /min [facility] Respiratory rate 2020-09-27 00:05:00 20 /min [facility] Oxygen saturation by 2020-09-26 23:50:00 98 /min [facility] Heart Rate 2020-09-26 23:50:00 89 /min [facility] Respiratory rate 2020-09-26 23:50:00 20 /min [facility] BP Diastolic 2020-09-26 20:36:00 69 mm[Hg] [facility] BP Systolic 2020-09-26 20:36:00 114 mm[Hg] [facility] Oxygen saturation by 2020-09-26 20:36:00 98 /min [facility] Heart Rate 2020-09-26 20:36:00 84 /min [facility] Respiratory rate 2020-09-26 20:36:00 18 /min [facility] Body Temperature 2020-09-26 20:36:00 98.1 [degF] [facility] BP Diastolic 2020-09-26 20:00:00 80 mm[Hg] [facility] BP Systolic 2020-09-26 20:00:00 142 mm[Hg] [facility] Oxygen saturation by 2020-09-26 20:00:00 100 /min [facility] Heart Rate 2020-09-26 20:00:00 89 [...] [facility] Heart Rate 2020-09-26 16:11:00 89 /min [facility] Respiratory rate 2020-09-26 16:11:00 21 /min [facility] Body Temperature 2020-09-26 16:11:00 98.3 [degF] [facility] Oxygen saturation by 2020-09-26 13:10:00 96 /min [facility] Heart Rate 2020-09-26 13:10:00 94 /min [facility] Respiratory rate 2020-09-26 13:10:00 16 /min [facility] Oxygen saturation by 2020-09-26 12:55:00 96 /min [facility] Heart Rate 2020-09-26 12:55:00 94 /min [facility] Respiratory rate 2020-09-26 12:55:00 16 /min [facility] Oxygen saturation by 2020-09-26 12:35:00 96 /min [facility] Heart Rate 2020-09-26 12:35:00 94 /min [facility] Respiratory rate 2020-09-26 12:35:00 16 /min [facility] BP Diastolic 2020-09-26 12:12:00 66 mm[Hg] [facility] BP Systolic 2020-09-26 12:12:00 113 mm[Hg] [facility] Oxygen saturation by 2020-09-26 12:12:00 98 /min [facility] Heart Rate 2020-09-26 12:12:00 100 [...] [facility] Heart Rate 2020-09-26 09:22:00 99 /min [facility] Respiratory rate 2020-09-26 09:22:00 26 /min [facility] Body Temperature 2020-09-26 09:22:00 97.4 [degF] [facility] Oxygen saturation by 2020-09-26 08:50:00 98 /min [facility] Heart Rate 2020-09-26 08:50:00 99 /min [facility] Respiratory rate 2020-09-26 08:50:00 26 /min [facility] Oxygen saturation by 2020-09-26 08:35:00 98 /min [facility] Heart Rate 2020-09-26 08:35:00 99 [...] [facility] Heart Rate 2020-09-26 07:58:00 99 [...] [facility] Heart Rate 2020-09-26 04:00:00 99 /min [facility] Respiratory rate 2020-09-26 04:00:00 20 /min [facility] Body Temperature 2020-09-26 04:00:00 97.0 [degF] [facility] Oxygen saturation by 2020-09-25 20:08:00 100 /min [facility] Heart Rate 2020-09-25 20:08:00 97 [...] [facility] Heart Rate 2020-09-25 20:00:00 99 /min [facility] Respiratory rate 2020-09-25 20:00:00 18 /min [facility] Body Temperature 2020-09-25 20:00:00 97.9 [degF] [facility] Oxygen saturation by 2020-09-25 19:53:00 97 /min [facility] Heart Rate 2020-09-25 19:53:00 94 [...] [facility] Heart Rate 2020-09-25 15:48:00 99 /min [facility] Respiratory rate 2020-09-25 15:48:00 18 /min [facility] Body Temperature 2020-09-25 15:48:00 98.0 [degF] [facility] Oxygen saturation by 2020-09-25 12:40:00 97 /min [facility] Heart Rate 2020-09-25 12:40:00 109 /min [facility] Respiratory rate 2020-09-25 12:40:00 16 /min [facility] Oxygen saturation by 2020-09-25 12:39:00 97 /min [facility] Heart Rate 2020-09-25 12:39:00 98 /min [facility] Respiratory rate 2020-09-25 12:39:00 22 /min [facility] BP Diastolic 2020-09-25 11:14:00 72 mm[Hg] [facility] BP Systolic 2020-09-25 11:14:00 98 mm[Hg] [facility] Oxygen saturation by 2020-09-25 11:14:00 100 /min [facility] Heart Rate 2020-09-25 11:14:00 98 [...] Center BP Systolic 2020-09-25 09:18:00 135 mm[Hg] [facility] Oxygen saturation by 2020-09-25 09:18:00 98 /min [facility] Heart Rate 2020-09-25 09:18:00 96 /min [facility] Respiratory rate 2020-09-25 09:18:00 18 /min [facility] Body Temperature 2020-09-25 09:18:00 97.9 [degF] [facility] Oxygen saturation by 2020-09-25 08:35:00 98 /min [facility] Heart Rate 2020-09-25 08:35:00 96 /min [facility] Respiratory rate 2020-09-25 08:35:00 18 /min [facility] Oxygen saturation by 2020-09-25 08:20:00 98 /min [facility] Heart Rate 2020-09-25 08:20:00 96 /min [facility] Respiratory rate 2020-09-25 08:20:00 18 /min [facility] BP Diastolic 2020-09-25 07:33:00 62 mm[Hg] [facility] BP Systolic 2020-09-25 07:33:00 135 mm[Hg] [facility] Oxygen saturation by 2020-09-25 07:33:00 98 /min [facility] Heart Rate 2020-09-25 07:33:00 96 /min [facility] Respiratory rate 2020-09-25 07:33:00 18 /min [facility] Body Temperature 2020-09-25 07:33:00 97.9 [degF] [facility] BP Diastolic 2020-09-25 04:00:00 69 mm[Hg] [facility] BP Systolic 2020-09-25 04:00:00 121 mm[Hg] [facility] Oxygen saturation by 2020-09-25 04:00:00 97 /min [facility] Heart Rate 2020-09-25 04:00:00 83 /min [facility] Respiratory rate 2020-09-25 04:00:00 18 /min [facility] Body Temperature 2020-09-25 04:00:00 97.7 [degF] [facility] BP Diastolic 2020-09-24 23:59:00 94 mm[Hg] [facility] BP Systolic 2020-09-24 23:59:00 151 mm[Hg] [facility] Oxygen saturation by 2020-09-24 23:59:00 99 /min [facility] Heart Rate 2020-09-24 23:59:00 97 [...] [facility] Heart Rate 2020-09-24 20:32:00 112 /min [facility] Respiratory rate 2020-09-24 20:32:00 18 /min [facility] Body Temperature 2020-09-24 20:32:00 97.7 [degF] [facility] Oxygen saturation by 2020-09-24 20:25:00 98 /min [facility] Heart Rate 2020-09-24 20:25:00 100 /min [facility] Respiratory rate 2020-09-24 20:25:00 20 /min [facility] Oxygen saturation by 2020-09-24 20:10:00 95 /min [facility] Heart Rate 2020-09-24 20:10:00 102 /min [facility] Respiratory rate 2020-09-24 20:10:00 20 /min [facility] BP Diastolic 2020-09-24 20:00:00 92 mm[Hg] [facility] BP Systolic 2020-09-24 20:00:00 165 mm[Hg] [facility] Oxygen saturation by 2020-09-24 20:00:00 94 /min [facility] Heart Rate 2020-09-24 20:00:00 112 [...] [facility] Heart Rate 2020-09-24 17:13:00 94 /min [facility] Respiratory rate 2020-09-24 17:13:00 16 /min [facility] Body Temperature 2020-09-24 17:13:00 97.7 [degF] [facility] Oxygen saturation by 2020-09-24 14:00:00 100 /min [facility] Heart Rate 2020-09-24 14:00:00 94 /min [facility] Respiratory rate 2020-09-24 14:00:00 16 /min [facility] Oxygen saturation by 2020-09-24 13:45:00 100 /min [facility] Heart Rate 2020-09-24 13:45:00 94 [...] [facility] Heart Rate 2020-09-24 08:41:00 94 [...] [facility] Heart Rate 2020-09-24 08:30:00 94 /min [facility] Respiratory rate 2020-09-24 08:30:00 18 /min [facility] Oxygen saturation by 2020-09-24 06:50:00 100 /min [facility] Heart Rate 2020-09-24 06:50:00 91 /min [facility] Respiratory rate 2020-09-24 06:50:00 16 /min [facility] Oxygen saturation by 2020-09-24 06:35:00 97 /min [facility] Heart Rate 2020-09-24 06:35:00 87 [...] [facility] Heart Rate 2020-09-24 04:00:00 88 /min [facility] Respiratory rate 2020-09-24 04:00:00 18 /min [facility] Body Temperature 2020-09-24 04:00:00 97.7 [degF] [facility] Oxygen saturation by 2020-09-24 01:18:00 97 /min [facility] Heart Rate 2020-09-24 01:18:00 91 /min [facility] Respiratory rate 2020-09-24 01:18:00 18 /min [facility] Oxygen saturation by 2020-09-24 01:10:00 94 /min [facility] Heart Rate 2020-09-24 01:10:00 89 [...] [facility] Heart Rate 2020-09-24 00:00:00 92 [...] [facility] Heart Rate 2020-09-23 21:42:00 105 [...] [facility] Heart Rate 2020-09-23 20:00:00 105 /min [facility] Respiratory rate 2020-09-23 20:00:00 18 /min [facility] Body Temperature 2020-09-23 20:00:00 97.9 [degF] [facility] Oxygen saturation by 2020-09-23 19:18:00 99 /min [facility] Heart Rate 2020-09-23 19:18:00 101 /min [facility] Respiratory rate 2020-09-23 19:18:00 22 /min [facility] Oxygen saturation by 2020-09-23 19:10:00 94 /min [facility] Heart Rate 2020-09-23 19:10:00 98 [...] [facility] Heart Rate 2020-09-23 16:11:00 96 /min [facility] Respiratory rate 2020-09-23 16:11:00 18 /min [facility] Body Temperature 2020-09-23 16:11:00 97.8 [degF] [facility] Oxygen saturation by 2020-09-23 14:15:00 98 /min [facility] Heart Rate 2020-09-23 14:15:00 83 /min [facility] Respiratory rate 2020-09-23 14:15:00 20 /min [facility] Oxygen saturation by 2020-09-23 14:00:00 98 /min [facility] Heart Rate 2020-09-23 14:00:00 83 /min [facility] Respiratory rate 2020-09-23 14:00:00 20 /min [facility] BP Diastolic 2020-09-23 08:50:00 63 mm[Hg] [facility] BP Systolic 2020-09-23 08:50:00 142 mm[Hg] [facility] Oxygen saturation by 2020-09-23 08:50:00 98 /min [facility] Heart Rate 2020-09-23 08:50:00 94 [...] Center BP Systolic 2020-09-23 08:39:00 142 mm[Hg] [facility] Oxygen saturation by 2020-09-23 08:39:00 100 /min [facility] Heart Rate 2020-09-23 08:39:00 94 /min [facility] Respiratory rate 2020-09-23 08:39:00 18 /min [facility] Body Temperature 2020-09-23 08:39:00 97.4 [degF] [facility] Oxygen saturation by 2020-09-23 06:45:00 100 /min [facility] Heart Rate 2020-09-23 06:45:00 94 /min [facility] Respiratory rate 2020-09-23 06:45:00 18 /min [facility] Oxygen saturation by 2020-09-23 06:30:00 100 /min [facility] Heart Rate 2020-09-23 06:30:00 94 /min [facility] Respiratory rate 2020-09-23 06:30:00 18 /min [facility] BP Diastolic 2020-09-23 04:30:00 75 mm[Hg] [facility] BP Systolic 2020-09-23 04:30:00 168 mm[Hg] [facility] Oxygen saturation by 2020-09-23 04:30:00 98 /min [facility] Heart Rate 2020-09-23 04:30:00 87 /min [facility] Respiratory rate 2020-09-23 04:30:00 18 /min [facility] Body Temperature 2020-09-23 04:30:00 97.6 [degF] [facility] Oxygen saturation by 2020-09-23 00:40:00 94 /min [facility] Heart Rate 2020-09-23 00:40:00 81 [...] [facility] Heart Rate 2020-09-23 00:23:00 81 [...] [facility] Heart Rate 2020-09-22 20:04:00 95 /min [facility] Respiratory rate 2020-09-22 20:04:00 18 /min [facility] Body Temperature 2020-09-22 20:04:00 97.6 [degF] [facility] Oxygen saturation by 2020-09-22 20:02:00 98 /min [facility] Heart Rate 2020-09-22 20:02:00 94 /min [facility] Respiratory rate 2020-09-22 20:02:00 20 /min [facility] Oxygen saturation by 2020-09-22 19:47:00 96 /min [facility] Heart Rate 2020-09-22 19:47:00 95 /min [facility] Respiratory rate 2020-09-22 19:47:00 20 /min [facility] Oxygen saturation by 2020-09-22 15:48:00 100 /min [facility] Heart Rate 2020-09-22 15:48:00 89 /min [facility] Respiratory rate 2020-09-22 15:48:00 24 /min [facility] BP Diastolic 2020-09-22 15:40:00 57 mm[Hg] [facility] BP Systolic 2020-09-22 15:40:00 143 mm[Hg] [facility] Oxygen saturation by 2020-09-22 15:40:00 98 /min [facility] Heart Rate 2020-09-22 15:40:00 90 /min [facility] Respiratory rate 2020-09-22 15:40:00 22 /min [facility] Body Temperature 2020-09-22 15:40:00 97.6 [degF] [facility] Oxygen saturation by 2020-09-22 15:33:00 96 /min [facility] Heart Rate 2020-09-22 15:33:00 88 /min [facility] Respiratory rate 2020-09-22 15:33:00 24 /min [facility] BP Diastolic 2020-09-22 11:44:00 65 mm[Hg] [facility] BP Systolic 2020-09-22 11:44:00 165 mm[Hg] [facility] Oxygen saturation by 2020-09-22 11:44:00 100 /min [facility] Heart Rate 2020-09-22 11:44:00 81 /min [facility] Respiratory rate 2020-09-22 11:44:00 23 /min [facility] Body Temperature 2020-09-22 11:44:00 97.9 [degF] [facility] Oxygen saturation by 2020-09-22 11:25:00 100 /min [facility] Heart Rate 2020-09-22 11:25:00 88 /min [facility] Oxygen saturation by 2020-09-22 11:10:00 96 /min [facility] Heart Rate 2020-09-22 11:10:00 84 [...] [facility] Heart Rate 2020-09-22 09:27:00 84 [...] [facility] Heart Rate 2020-09-22 08:00:00 84 [...] Center BP Systolic 2020-09-22 03:50:00 144 mm[Hg] [facility] Oxygen saturation by 2020-09-22 03:50:00 97 /min [facility] Heart Rate 2020-09-22 03:50:00 93 /min [facility] Respiratory rate 2020-09-22 03:50:00 24 /min [facility] Body Temperature 2020-09-22 03:50:00 97.9 [degF] [facility] Oxygen saturation by 2020-09-22 02:17:00 100 /min [facility] Heart Rate 2020-09-22 02:17:00 92 /min [facility] Respiratory rate 2020-09-22 02:17:00 20 /min [facility] Oxygen saturation by 2020-09-22 02:02:00 100 /min [facility] Heart Rate 2020-09-22 02:02:00 88 /min [facility] Respiratory rate 2020-09-22 02:02:00 20 /min [facility] BP Diastolic 2020-09-22 00:02:00 64 mm[Hg] [facility] BP Systolic 2020-09-22 00:02:00 139 mm[Hg] [facility] Oxygen saturation by 2020-09-22 00:02:00 100 /min [facility] Heart Rate 2020-09-22 00:02:00 72 /min [facility] Respiratory rate 2020-09-22 00:02:00 20 /min [facility] Body Temperature 2020-09-22 00:02:00 98.4 [degF] [facility] BP Diastolic 2020-09-21 20:07:00 72 mm[Hg] [facility] BP Systolic 2020-09-21 20:07:00 147 mm[Hg] [facility] Oxygen saturation by 2020-09-21 20:07:00 96 /min [facility] Heart Rate 2020-09-21 20:07:00 84 /min [facility] Respiratory rate 2020-09-21 20:07:00 24 /min [facility] Body Temperature 2020-09-21 20:07:00 98.6 [degF] [facility] Oxygen saturation by 2020-09-21 20:02:00 97 /min [facility] Heart Rate 2020-09-21 20:02:00 80 /min [facility] Respiratory rate 2020-09-21 20:02:00 18 /min [facility] BP Diastolic 2020-09-21 20:00:00 96 mm[Hg] [facility] BP Systolic 2020-09-21 20:00:00 135 mm[Hg] [facility] Oxygen saturation by 2020-09-21 20:00:00 95 /min [facility] Heart Rate 2020-09-21 20:00:00 78 [...] Center BP Systolic 2020-09-21 16:00:00 135 mm[Hg] [facility] Oxygen saturation by 2020-09-21 16:00:00 95 /min [facility] Heart Rate 2020-09-21 16:00:00 78 [...] [facility] [facility] Heart Rate 2020-09-21 13:02:00 70 /min [facility] Respiratory rate 2020-09-21 13:02:00 18 /min [facility] Body Temperature 2020-09-21 13:02:00 98.3 [degF] [facility] Oxygen saturation by 2020-09-21 10:15:00 96 /min [facility] - Pulse oxim[facility] Heart Rate 2020-09-21 10:15:00 72 /min [facility] Respiratory rate 2020-09-21 10:15:00 18 /min [facility] BP Diastolic 2020-09-21 09:08:00 63 mm[Hg] [facility] BP Systolic 2020-09-21 09:08:00 150 mm[Hg] [facility] Oxygen saturation by 2020-09-21 09:08:00 95 /min [facility] Heart Rate 2020-09-21 09:08:00 63 [...] [facility] Heart Rate 2020-09-21 08:58:00 63 [...] Center BP Systolic 2020-09-21 07:38:00 150 mm[Hg] [facility] Oxygen saturation by 2020-09-21 07:38:00 95 /min [facility] Heart Rate 2020-09-21 07:38:00 63 [...] [facility] Heart Rate 2020-09-21 04:00:00 73 [...] [facility] Heart Rate 2020-09-21 00:00:00 76 /min [facility] Respiratory rate 2020-09-21 00:00:00 21 /min [facility] Body Temperature 2020-09-21 00:00:00 98.2 [degF] [facility] BP Diastolic 2020-09-20 20:00:00 69 mm[Hg] [facility] BP Systolic 2020-09-20 20:00:00 155 mm[Hg] [facility] Oxygen saturation by 2020-09-20 20:00:00 94 /min [facility] P[facility] Heart Rate 2020-09-20 20:00:00 72 /min [facility] Respiratory rate 2020-09-20 20:00:00 20 /min [facility] Body Temperature 2020-09-20 20:00:00 98.1 [degF] [facility] Oxygen saturation by 2020-09-20 19:53:00 99 /min [facility] Heart Rate 2020-09-20 19:53:00 72 /min [facility] Respiratory rate 2020-09-20 19:53:00 16 /min [facility] Oxygen saturation by 2020-09-20 19:45:00 96 /min [facility] Heart Rate 2020-09-20 19:45:00 75 /min [facility] Respiratory rate 2020-09-20 19:45:00 18 /min [facility] BP Diastolic 2020-09-20 16:36:00 69 mm[Hg] [facility] BP Systolic 2020-09-20 16:36:00 155 mm[Hg] [facility] Oxygen saturation by 2020-09-20 16:36:00 97 /min [facility] Heart Rate 2020-09-20 16:36:00 73 [...] Center BP Systolic 2020-09-20 15:47:00 133 mm[Hg] [facility] Oxygen saturation by 2020-09-20 15:47:00 94 /min [facility] Heart Rate 2020-09-20 15:47:00 71 /min [facility] Respiratory rate 2020-09-20 15:47:00 19 /min [...] [facility] Heart Rate 2020-09-20 11:55:00 71 [...] [facility] Heart Rate 2020-09-20 09:06:00 86 [...] [facility] Heart Rate 2020-09-20 08:58:00 86 [...] Center BP Systolic 2020-09-20 08:55:00 145 mm[Hg] [facility] Oxygen saturation by 2020-09-20 08:55:00 99 /min [facility] Heart Rate 2020-09-20 08:55:00 86 [...] [facility] Heart Rate 2020-09-20 07:38:00 71 /min [facility] Respiratory rate 2020-09-20 07:38:00 19 /min [facility] Body Temperature 2020-09-20 07:38:00 98.4 [degF] [facility] Oxygen saturation by 2020-09-20 07:05:00 95 /min [facility] Heart Rate 2020-09-20 07:05:00 82 /min [facility] Respiratory rate 2020-09-20 07:05:00 18 /min [facility] BP Diastolic 2020-09-20 04:00:00 61 mm[Hg] [facility] BP Systolic 2020-09-20 04:00:00 145 mm[Hg] [facility] Oxygen saturation by 2020-09-20 04:00:00 96 /min [facility] Heart Rate 2020-09-20 04:00:00 66 [...] [facility] Heart Rate 2020-09-20 00:00:00 66 [...] Center BP Systolic 2020-09-19 21:46:00 138 mm[Hg] [facility] Oxygen saturation by 2020-09-19 21:46:00 94 /min [facility] Heart Rate 2020-09-19 21:46:00 80 /min [facility] Respiratory rate 2020-09-19 21:46:00 18 /min [facility] Body Temperature 2020-09-19 21:46:00 97.4 [degF] [facility] Oxygen saturation by 2020-09-19 20:09:00 95 /min [facility] Heart Rate 2020-09-19 20:09:00 82 [...] [facility] Heart Rate 2020-09-19 20:00:00 80 [...] [facility] Heart Rate 2020-09-19 15:41:00 80 [...] [facility] Heart Rate 2020-09-19 12:14:00 84 [...] [facility] Heart Rate 2020-09-19 11:26:00 88 /min [facility] Respiratory rate 2020-09-19 11:26:00 16 /min [facility] Body Temperature 2020-09-19 11:26:00 98.6 [degF] [facility] Oxygen saturation by 2020-09-19 08:10:00 93 /min [facility] Heart Rate 2020-09-19 08:10:00 97 /min [facility] Respiratory rate 2020-09-19 08:10:00 20 /min [facility] BP Diastolic 2020-09-19 07:37:00 91 mm[Hg] [facility] BP Systolic 2020-09-19 07:37:00 168 mm[Hg] [facility] Oxygen saturation by 2020-09-19 07:37:00 97 /min [facility] Heart Rate 2020-09-19 07:37:00 83 /min [facility] Respiratory rate 2020-09-19 07:37:00 21 /min [facility] Body Temperature 2020-09-19 07:37:00 98.1 [degF] [facility] BP Diastolic 2020-09-19 07:17:00 91 mm[Hg] [facility] BP Systolic 2020-09-19 07:17:00 168 mm[Hg] [facility] Oxygen saturation by 2020-09-19 07:17:00 97 /min [facility] Heart Rate 2020-09-19 07:17:00 83 [...] [facility] Heart Rate 2020-09-19 05:03:00 91 [...] Center BP Systolic 2020-09-19 01:59:00 200 mm[Hg] [facility] Oxygen saturation by 2020-09-19 01:59:00 96 /min [facility] Heart Rate 2020-09-19 01:59:00 92 [...] [facility] Heart Rate 2020-09-18 22:57:00 68 [...] [facility] Heart Rate 2020-09-18 21:58:00 68 /min [facility] Respiratory rate 2020-09-18 21:58:00 18 /min [facility] Body Temperature 2020-09-18 21:58:00 97.7 [degF] [facility] Oxygen saturation by 2020-09-18 21:16:00 93 /min [facility] Heart Rate 2020-09-18 21:16:00 97 /min [facility] Respiratory rate 2020-09-18 21:16:00 20 /min [facility] BP Diastolic 2020-09-18 15:41:00 70 mm[Hg] [facility] BP Systolic 2020-09-18 15:41:00 163 mm[Hg] [facility] Oxygen saturation by 2020-09-18 15:41:00 98 /min [facility] Heart Rate 2020-09-18 15:41:00 84 /min [facility] Respiratory rate 2020-09-18 15:41:00 21 /min [facility] Body Temperature 2020-09-18 15:41:00 98.6 [degF] [facility] BP Diastolic 2020-09-18 13:00:00 73 mm[Hg] [facility] BP Systolic 2020-09-18 13:00:00 160 mm[Hg] [facility] Oxygen saturation by 2020-09-18 13:00:00 96 /min [facility] Heart Rate 2020-09-18 13:00:00 86 [...] Center BP Systolic 2020-09-18 12:00:00 162 mm[Hg] [facility] Oxygen saturation by 2020-09-18 12:00:00 96 /min [facility] Heart Rate 2020-09-18 12:00:00 85 [...] [facility] Heart Rate 2020-09-18 11:00:00 86 [...] [facility] Heart Rate 2020-09-18 10:00:00 80 /min [facility] Respiratory rate 2020-09-18 10:00:00 19 /min [facility] BP Diastolic 2020-09-18 09:00:00 80 mm[Hg] [facility] BP Systolic 2020-09-18 09:00:00 141 mm[Hg] [facility] Oxygen saturation by 2020-09-18 09:00:00 96 /min [facility] Heart Rate 2020-09-18 09:00:00 86 [...] Center BP Systolic 2020-09-18 08:00:00 146 mm[Hg] [facility] Oxygen saturation by 2020-09-18 08:00:00 96 /min [facility] Heart Rate 2020-09-18 08:00:00 86 /min [facility] Respiratory rate 2020-09-18 08:00:00 15 /min [facility] BP Diastolic 2020-09-18 07:51:00 80 mm[Hg] [facility] BP Systolic 2020-09-18 07:51:00 141 mm[Hg] [facility] Oxygen saturation by 2020-09-18 07:51:00 96 /min [facility] Heart Rate 2020-09-18 07:51:00 86 /min [facility] Respiratory rate 2020-09-18 07:51:00 17 /min [facility] Body Temperature 2020-09-18 07:51:00 97.7 [degF] [facility] Oxygen saturation by 2020-09-18 07:35:00 97 /min [facility] Heart Rate 2020-09-18 07:35:00 85 [...] [facility] Heart Rate 2020-09-18 07:00:00 86 [...] [facility] Heart Rate 2020-09-18 06:00:00 95 [...] [facility] Heart Rate 2020-09-18 05:00:00 86 /min [facility] Respiratory rate 2020-09-18 05:00:00 18 /min [facility] BP Diastolic 2020-09-18 04:00:00 74 mm[Hg] [facility] BP Systolic 2020-09-18 04:00:00 150 mm[Hg] [facility] Oxygen saturation by 2020-09-18 04:00:00 96 /min [facility] P[facility] Heart Rate 2020-09-18 04:00:00 76 /min [facility] Respiratory rate 2020-09-18 04:00:00 17 /min [facility] BP Diastolic 2020-09-18 03:00:00 88 mm[Hg] [facility] BP Systolic 2020-09-18 03:00:00 157 mm[Hg] [facility] Oxygen saturation by 2020-09-18 03:00:00 97 /min [facility] P[facility] Heart Rate 2020-09-18 03:00:00 89 /min [facility] Respiratory rate 2020-09-18 03:00:00 15 /min [facility] BP Diastolic 2020-09-18 02:00:00 80 mm[Hg] [facility] BP Systolic 2020-09-18 02:00:00 145 mm[Hg] [facility] Oxygen saturation by 2020-09-18 02:00:00 96 /min [facility] Heart Rate 2020-09-18 02:00:00 95 [...] [facility] Heart Rate 2020-09-18 01:00:00 84 /min [facility] Respiratory rate 2020-09-18 01:00:00 19 /min [facility] BP Diastolic 2020-09-18 00:00:00 68 mm[Hg] [facility] BP Systolic 2020-09-18 00:00:00 144 mm[Hg] [facility] Oxygen saturation by 2020-09-18 00:00:00 97 /min [facility] P[facility] Heart Rate 2020-09-18 00:00:00 89 /min [facility] Respiratory rate 2020-09-18 00:00:00 18 /min [facility] Body Temperature 2020-09-18 00:00:00 98.3 [degF] [facility] BP Diastolic 2020-09-17 23:00:00 89 mm[Hg] [facility] BP Systolic 2020-09-17 23:00:00 145 mm[Hg] [facility] Oxygen saturation by 2020-09-17 23:00:00 96 /min [facility] Heart Rate 2020-09-17 23:00:00 90 [...] [facility] Heart Rate 2020-09-17 22:03:00 90 /min [facility] Respiratory rate 2020-09-17 22:03:00 18 /min [facility] BP Diastolic 2020-09-17 21:00:00 62 mm[Hg] [facility] BP Systolic 2020-09-17 21:00:00 117 mm[Hg] [facility] Oxygen saturation by 2020-09-17 21:00:00 96 /min [facility] P[facility] Heart Rate 2020-09-17 21:00:00 97 /min [facility] Respiratory rate 2020-09-17 21:00:00 19 /min [facility] Oxygen saturation by 2020-09-17 20:08:00 96 /min [facility] P[facility] Heart Rate 2020-09-17 20:08:00 95 /min [facility] Respiratory rate 2020-09-17 20:08:00 20 /min [facility] BP Diastolic 2020-09-17 20:00:00 86 mm[Hg] [facility] BP Systolic 2020-09-17 20:00:00 169 mm[Hg] [facility] Oxygen saturation by 2020-09-17 20:00:00 95 /min [facility] P[facility] Heart Rate 2020-09-17 20:00:00 105 [...] [facility] Heart Rate 2020-09-17 19:00:00 102 [...] Center BP Systolic 2020-09-17 18:00:00 146 mm[Hg] [facility] Oxygen saturation by 2020-09-17 18:00:00 95 /min [facility] P[facility] Heart Rate 2020-09-17 18:00:00 97 [...] [facility] Heart Rate 2020-09-17 17:00:00 106 [...] [facility] Heart Rate 2020-09-17 16:00:00 96 /min [facility] Respiratory rate 2020-09-17 16:00:00 32 /min [facility] Body Temperature 2020-09-17 16:00:00 98.6 [degF] [facility] Oxygen saturation by 2020-09-17 15:28:00 94 /min [facility] P[facility] Heart Rate 2020-09-17 15:28:00 83 /min [facility] Respiratory rate 2020-09-17 15:28:00 26 /min [facility] Oxygen saturation by 2020-09-17 15:27:00 94 /min [facility] Heart Rate 2020-09-17 15:27:00 83 [...] [facility] Heart Rate 2020-09-17 15:00:00 93 /min [facility] Respiratory rate 2020-09-17 15:00:00 24 /min [facility] Oxygen saturation by 2020-09-17 14:59:00 94 /min [facility] Heart Rate 2020-09-17 14:59:00 84 [...] [facility] Heart Rate 2020-09-17 14:00:00 109 /min [facility] Respiratory rate 2020-09-17 14:00:00 29 /min [facility] BP Diastolic 2020-09-17 13:00:00 87 mm[Hg] [facility] BP Systolic 2020-09-17 13:00:00 171 mm[Hg] [facility] Oxygen saturation by 2020-09-17 13:00:00 92 /min [facility] Heart Rate 2020-09-17 13:00:00 112 [...] [facility] Heart Rate 2020-09-17 12:00:00 112 /min [facility] Respiratory rate 2020-09-17 12:00:00 26 /min [facility] BP Diastolic 2020-09-17 11:00:00 80 mm[Hg] [facility] BP Systolic 2020-09-17 11:00:00 148 mm[Hg] [facility] Oxygen saturation by 2020-09-17 11:00:00 92 /min [facility] Heart Rate 2020-09-17 11:00:00 119 [...] Center Respiratory rate 2020-09-17 10:00:00 38 /min [facility] BP Diastolic 2020-09-17 09:00:00 82 mm[Hg] [facility] BP Systolic 2020-09-17 09:00:00 175 mm[Hg] [facility] Oxygen saturation by 2020-09-17 09:00:00 97 /min [facility] Heart Rate 2020-09-17 09:00:00 88 [...] Center BP Systolic 2020-09-17 08:00:00 167 mm[Hg] [facility] Oxygen saturation by 2020-09-17 08:00:00 96 /min [facility] Heart Rate 2020-09-17 08:00:00 85 [...] [facility] Heart Rate 2020-09-17 07:00:00 84 /min [facility] Respiratory rate 2020-09-17 07:00:00 15 /min [facility] BP Diastolic 2020-09-17 06:00:00 87 mm[Hg] [facility] BP Systolic 2020-09-17 06:00:00 159 mm[Hg] [facility] Oxygen saturation by 2020-09-17 06:00:00 96 /min [facility] Heart Rate 2020-09-17 06:00:00 83 [...] [facility] Heart Rate 2020-09-17 05:00:00 84 [...] [facility] Heart Rate 2020-09-17 04:00:00 86 [...] Center BP Diastolic 2020-09-17 03:00:00 82 mm[Hg] [facility] BP Systolic 2020-09-17 03:00:00 188 mm[Hg] [facility] Oxygen saturation by 2020-09-17 03:00:00 97 /min [facility] Heart Rate 2020-09-17 03:00:00 90 /min [facility] Respiratory rate 2020-09-17 03:00:00 18 /min [facility] Body Temperature 2020-09-17 03:00:00 97.6 [degF] [facility] BP Diastolic 2020-09-17 02:00:00 75 mm[Hg] [facility] BP Systolic 2020-09-17 02:00:00 154 mm[Hg] [facility] Oxygen saturation by 2020-09-17 02:00:00 95 /min [facility] Heart Rate 2020-09-17 02:00:00 88 [...] [facility] Heart Rate 2020-09-17 01:00:00 88 /min [facility] Respiratory rate 2020-09-17 01:00:00 15 /min [facility] BP Diastolic 2020-09-17 00:00:00 76 mm[Hg] [facility] BP Systolic 2020-09-17 00:00:00 171 mm[Hg] [facility] Oxygen saturation by 2020-09-17 00:00:00 96 /min [facility] Heart Rate 2020-09-17 00:00:00 92 /min [facility] Respiratory rate 2020-09-17 00:00:00 26 /min [facility] Oxygen saturation by 2020-09-16 23:05:00 95 /min [facility] Heart Rate 2020-09-16 23:05:00 77 /min [facility] Respiratory rate 2020-09-16 23:05:00 17 /min [facility] BP Diastolic 2020-09-16 23:00:00 123 mm[Hg] [facility] BP Systolic 2020-09-16 23:00:00 212 mm[Hg] [facility] Oxygen saturation by 2020-09-16 23:00:00 97 /min [facility] Heart Rate 2020-09-16 23:00:00 83 /min [facility] Respiratory rate 2020-09-16 23:00:00 23 [...] Center BP Systolic 2020-09-16 22:06:00 176 mm[Hg] [facility] Oxygen saturation by 2020-09-16 22:06:00 96 /min [facility] Heart Rate 2020-09-16 22:06:00 82 /min [facility] Respiratory rate 2020-09-16 22:06:00 18 /min [facility] BP Diastolic 2020-09-16 22:03:00 81 mm[Hg] [facility] BP Systolic 2020-09-16 22:03:00 201 mm[Hg] [facility] Oxygen saturation by 2020-09-16 22:03:00 96 /min [facility] Heart Rate 2020-09-16 22:03:00 84 /min [facility] Respiratory rate 2020-09-16 22:03:00 22 /min [facility] BP Diastolic 2020-09-16 22:00:00 86 mm[Hg] [facility] BP Systolic 2020-09-16 22:00:00 206 mm[Hg] [facility] Oxygen saturation by 2020-09-16 22:00:00 96 /min [facility] Heart Rate 2020-09-16 22:00:00 86 /min [facility] Respiratory rate 2020-09-16 22:00:00 19 /min [facility] BP Diastolic 2020-09-16 21:01:00 69 mm[Hg] [facility] BP Systolic 2020-09-16 21:01:00 153 mm[Hg] [facility] Oxygen saturation by 2020-09-16 21:01:00 96 /min [facility] Heart Rate 2020-09-16 21:01:00 85 /min [facility] Respiratory rate 2020-09-16 21:01:00 17 /min [facility] BP Diastolic 2020-09-16 20:44:00 111 mm[Hg] [facility] BP Systolic 2020-09-16 20:44:00 141 mm[Hg] [facility] Oxygen saturation by 2020-09-16 20:44:00 96 /min [facility] Heart Rate 2020-09-16 20:44:00 84 /min [facility] Respiratory rate 2020-09-16 20:44:00 21 /min [facility] Body Temperature 2020-09-16 20:44:00 98.0 [degF] [facility] BP Diastolic 2020-09-16 20:42:00 111 mm[Hg] [facility] BP Systolic 2020-09-16 20:42:00 141 mm[Hg] [facility] Heart Rate 2020-09-16 20:42:00 84 /min [facility] BP Diastolic 2020-09-16 20:24:00 66 mm[Hg] [facility] [...] [facility] Heart Rate 2020-09-16 20:00:00 96 /min [facility] Respiratory rate 2020-09-16 20:00:00 21 /min [facility] Body Temperature 2020-09-16 20:00:00 98.0 [degF] [facility] Oxygen saturation by 2020-09-16 19:40:00 96 /min [facility] Heart Rate 2020-09-16 19:40:00 105 /min [facility] Respiratory rate 2020-09-16 19:40:00 27 /min [facility] BP Diastolic 2020-09-16 16:00:00 90 mm[Hg] [facility] BP Systolic 2020-09-16 16:00:00 175 mm[Hg] [facility] Oxygen saturation by 2020-09-16 16:00:00 96 /min [facility] Heart Rate 2020-09-16 16:00:00 108 /min [facility] Respiratory rate 2020-09-16 16:00:00 36 /min [facility] Body Temperature 2020-09-16 16:00:00 98.5 [degF] [facility] BP Diastolic 2020-09-16 13:00:00 73 mm[Hg] [facility] BP Systolic 2020-09-16 13:00:00 149 mm[Hg] [facility] Oxygen saturation by 2020-09-16 13:00:00 2 /min [facility] Heart Rate 2020-09-16 13:00:00 90 /min [facility] Respiratory rate 2020-09-16 13:00:00 15 /min [facility] BP Diastolic 2020-09-16 12:00:00 88 mm[Hg] [facility] BP Systolic 2020-09-16 12:00:00 174 mm[Hg] [facility] Oxygen saturation by 2020-09-16 12:00:00 94 /min [facility] Heart Rate 2020-09-16 12:00:00 101 /min [facility] Respiratory rate 2020-09-16 12:00:00 32 /min [facility] [place] Body Temperature 2020-09-16 12:00:00 97.8 [degF] [facility] [place] Oxygen saturation by 2020-09-16 11:00:00 96 /min [facility] Heart Rate 2020-09-16 11:00:00 79 /min [facility] [place] Respiratory rate 2020-09-16 11:00:00 19 /min [facility] BP Diastolic 2020-09-16 11:00:00 81 mm[Hg] [facility] BP Systolic 2020-09-16 11:00:00 186 mm[Hg] [facility] BP Diastolic 2020-09-16 10:00:00 82 mm[Hg] [facility] BP Systolic 2020-09-16 10:00:00 166 mm[Hg] [facility] Oxygen saturation by 2020-09-16 10:00:00 95 /min [facility] Heart Rate 2020-09-16 10:00:00 82 [...] [facility] Heart Rate 2020-09-16 09:00:00 82 [...] [facility] Heart Rate 2020-09-16 08:00:00 79 [...] [facility] Heart Rate 2020-09-16 07:00:00 73 [...] [facility] Heart Rate 2020-09-16 06:00:00 87 /min [facility] Respiratory rate 2020-09-16 06:00:00 19 /min [facility] BP Diastolic 2020-09-16 05:00:00 71 mm[Hg] [facility] BP Systolic 2020-09-16 05:00:00 150 mm[Hg] [facility] Oxygen saturation by 2020-09-16 05:00:00 96 /min [facility] Heart Rate 2020-09-16 05:00:00 89 /min [facility] Respiratory rate 2020-09-16 05:00:00 22 /min [facility] BP Diastolic 2020-09-16 04:00:00 71 mm[Hg] [facility] BP Systolic 2020-09-16 04:00:00 139 mm[Hg] [facility] Oxygen saturation by 2020-09-16 04:00:00 96 /min [facility] Heart Rate 2020-09-16 04:00:00 85 /min [facility] Respiratory rate 2020-09-16 04:00:00 16 /min [facility] BP Diastolic 2020-09-16 03:00:00 69 mm[Hg] [facility] BP Systolic 2020-09-16 03:00:00 135 mm[Hg] [facility] Oxygen saturation by 2020-09-16 03:00:00 95 /min [facility] Heart Rate 2020-09-16 03:00:00 82 /min [facility] Respiratory rate 2020-09-16 03:00:00 15 /min [facility] Body Temperature 2020-09-16 03:00:00 98.5 [degF] [facility] BP Diastolic 2020-09-16 02:00:00 66 mm[Hg] [facility] BP Systolic 2020-09-16 02:00:00 140 mm[Hg] [facility] Oxygen saturation by 2020-09-16 02:00:00 95 /min [facility] Heart Rate 2020-09-16 02:00:00 83 /min [facility] Respiratory rate 2020-09-16 02:00:00 17 /min [facility] BP Diastolic 2020-09-16 01:00:00 70 mm[Hg] [facility] BP Systolic 2020-09-16 01:00:00 164 mm[Hg] [facility] Oxygen saturation by 2020-09-16 01:00:00 96 /min [facility] Heart Rate 2020-09-16 01:00:00 84 /min [facility] Respiratory rate 2020-09-16 01:00:00 20 /min [facility] BP Diastolic 2020-09-16 00:00:00 86 mm[Hg] [facility] BP Systolic 2020-09-16 00:00:00 173 mm[Hg] [facility] Oxygen saturation by 2020-09-16 00:00:00 94 /min [facility] Heart Rate 2020-09-16 00:00:00 77 [...] [facility] Heart Rate 2020-09-15 23:00:00 79 /min [facility] Respiratory rate 2020-09-15 23:00:00 18 /min [facility] BP Diastolic 2020-09-15 22:00:00 55 mm[Hg] [facility] BP Systolic 2020-09-15 22:00:00 133 mm[Hg] [facility] Oxygen saturation by 2020-09-15 22:00:00 94 /min [facility] Heart Rate 2020-09-15 22:00:00 78 [...] [facility] Heart Rate 2020-09-15 21:00:00 79 /min [facility] Respiratory rate 2020-09-15 21:00:00 17 /min [facility] Oxygen saturation by 2020-09-15 20:50:00 94 /min [facility] Heart Rate 2020-09-15 20:50:00 81 [...] [facility] Heart Rate 2020-09-15 20:00:00 76 /min [facility] Respiratory rate 2020-09-15 20:00:00 22 /min [facility] Oxygen saturation by 2020-09-15 19:00:00 96 /min [facility] Respiratory rate 2020-09-15 19:00:00 14 /min [facility] Body Temperature 2020-09-15 19:00:00 98.7 [degF] [facility] BP Diastolic 2020-09-15 18:00:00 115 mm[Hg] [facility] BP Systolic 2020-09-15 18:00:00 154 mm[Hg] [facility] Oxygen saturation by 2020-09-15 18:00:00 94 /min [facility] Heart Rate 2020-09-15 18:00:00 79 /min [facility] Respiratory rate 2020-09-15 18:00:00 19 /min [facility] BP Diastolic 2020-09-15 17:00:00 65 mm[Hg] [facility] BP Systolic 2020-09-15 17:00:00 154 mm[Hg] [facility] Oxygen saturation by 2020-09-15 17:00:00 95 /min [facility] Heart Rate 2020-09-15 17:00:00 71 [...] [facility] Heart Rate 2020-09-15 16:00:00 75 /min [facility] Respiratory rate 2020-09-15 16:00:00 16 /min [facility] BP Diastolic 2020-09-15 15:14:00 71 mm[Hg] [facility] BP Systolic 2020-09-15 15:14:00 169 mm[Hg] [facility] Oxygen saturation by 2020-09-15 15:14:00 100 /min [facility] Heart Rate 2020-09-15 15:14:00 75 /min [facility] Body Temperature 2020-09-15 15:14:00 97.7 [degF] [facility] BP Diastolic 2020-09-15 15:10:00 66 mm[Hg] [facility] BP Systolic 2020-09-15 15:10:00 156 mm[Hg] [facility] Oxygen saturation by 2020-09-15 15:10:00 100 /min [facility] Heart Rate 2020-09-15 15:10:00 74 /min [facility] Respiratory rate 2020-09-15 15:10:00 18 /min [facility] BP Diastolic 2020-09-15 14:50:00 84 mm[Hg] [facility] BP Systolic 2020-09-15 14:50:00 176 mm[Hg] [facility] Oxygen saturation by 2020-09-15 14:50:00 100 /min [facility] Heart Rate 2020-09-15 14:50:00 81 /min [facility] Respiratory rate 2020-09-15 14:50:00 18 /min [facility] BP Diastolic 2020-09-15 14:40:00 94 mm[Hg] [facility] BP Systolic 2020-09-15 14:40:00 200 mm[Hg] [facility] Oxygen saturation by 2020-09-15 14:40:00 97 /min [facility] Heart Rate 2020-09-15 14:40:00 96 /min [facility] Respiratory rate 2020-09-15 14:40:00 16 /min [facility] BP Diastolic 2020-09-15 14:25:00 96 mm[Hg] [facility] BP Systolic 2020-09-15 14:25:00 175 mm[Hg] [facility] Oxygen saturation by 2020-09-15 14:25:00 98 /min [facility] Heart Rate 2020-09-15 14:25:00 99 /min [facility] Respiratory rate 2020-09-15 14:25:00 16 [...] [facility] Heart Rate 2020-09-15 11:14:00 70 [...] 171 mm[Hg] [facility] Oxygen saturation by 2020-09-15 08:52:00 92 /min [facility] Heart Rate 2020-09-15 08:52:00 74 /min [facility] Respiratory rate 2020-09-15 08:52:00 18 [...] [facility] Heart Rate 2020-09-15 07:45:00 74 [...] [facility] Heart Rate 2020-09-15 04:00:00 68 [...] [facility] Heart Rate 2020-09-15 00:00:00 72 [...] [facility] Heart Rate 2020-09-14 20:27:00 90 [...] [facility] Heart Rate 2020-09-14 20:00:00 90 /min [facility] Respiratory rate 2020-09-14 20:00:00 20 /min [facility] Body Temperature 2020-09-14 20:00:00 98.5 [degF] [facility] BP Diastolic 2020-09-14 15:47:00 82 mm[Hg] [facility] BP Systolic 2020-09-14 15:47:00 155 mm[Hg] [facility] Oxygen saturation by 2020-09-14 15:47:00 95 /min [facility] Heart Rate 2020-09-14 15:47:00 85 /min [facility] Respiratory rate 2020-09-14 15:47:00 16 /min [facility] Body Temperature 2020-09-14 15:47:00 98.1 [degF] [facility] BP Diastolic 2020-09-14 11:15:00 73 mm[Hg] [facility] BP Systolic 2020-09-14 11:15:00 165 mm[Hg] [facility] Oxygen saturation by 2020-09-14 11:15:00 93 /min [facility] Heart Rate 2020-09-14 11:15:00 89 [...] [facility] Heart Rate 2020-09-14 07:49:00 88 /min [facility] Respiratory rate 2020-09-14 07:49:00 18 /min [facility] Body Temperature 2020-09-14 07:49:00 97.9 [degF] [facility] BP Diastolic 2020-09-14 07:31:00 67 mm[Hg] [facility] BP Systolic 2020-09-14 07:31:00 166 mm[Hg] [facility] Oxygen saturation by 2020-09-14 07:31:00 93 /min [facility] Heart Rate 2020-09-14 07:31:00 88 [...] Center BP Systolic 2020-09-14 04:00:00 175 mm[Hg] [facility] Oxygen saturation by 2020-09-14 04:00:00 94 /min [facility] Heart Rate 2020-09-14 04:00:00 94 [...] [facility] Heart Rate 2020-09-14 00:00:00 90 [...] Center BP Systolic 2020-09-13 20:12:00 177 mm[Hg] [facility] Oxygen saturation by 2020-09-13 20:12:00 94 /min [facility] Heart Rate 2020-09-13 20:12:00 88 [...] [facility] Heart Rate 2020-09-13 20:00:00 88 /min [facility] Respiratory rate 2020-09-13 20:00:00 18 /min [facility] Body Temperature 2020-09-13 20:00:00 97.8 [degF] [facility] BP Diastolic 2020-09-13 16:11:00 82 mm[Hg] [facility] BP Systolic 2020-09-13 16:11:00 140 mm[Hg] [facility] Oxygen saturation by 2020-09-13 16:11:00 94 /min [facility] Heart Rate 2020-09-13 16:11:00 78 [...] Center BP Systolic 2020-09-13 12:08:00 172 mm[Hg] [facility] Oxygen saturation by 2020-09-13 12:08:00 94 /min [facility] Heart Rate 2020-09-13 12:08:00 82 [...] [facility] Heart Rate 2020-09-13 11:16:00 79 [...] [facility] Heart Rate 2020-09-13 08:45:00 79 [...] [facility] Heart Rate 2020-09-13 04:00:00 87 /min [facility] Respiratory rate 2020-09-13 04:00:00 20 /min [facility] Body Temperature 2020-09-13 04:00:00 97.9 [degF] [facility] BP Diastolic 2020-09-13 00:00:00 79 mm[Hg] [facility] BP Systolic 2020-09-13 00:00:00 150 mm[Hg] [facility] Oxygen saturation by 2020-09-13 00:00:00 93 /min [facility] Heart Rate 2020-09-13 00:00:00 76 [...] Center BP Systolic 2020-09-12 22:28:00 150 mm[Hg] [facility] Oxygen saturation by 2020-09-12 22:28:00 95 /min [facility] Heart Rate 2020-09-12 22:28:00 96 /min [facility] Respiratory rate 2020-09-12 22:28:00 18 /min [facility] Body Temperature 2020-09-12 22:28:00 97.9 [degF] [facility] BP Diastolic 2020-09-12 22:18:00 92 mm[Hg] [facility] BP Systolic 2020-09-12 22:18:00 150 mm[Hg] [facility] Oxygen saturation by 2020-09-12 22:18:00 95 /min [facility] Heart Rate 2020-09-12 22:18:00 96 /min [facility] Respiratory rate 2020-09-12 22:18:00 18 /min [facility] Body Temperature 2020-09-12 22:18:00 97.9 [degF] [facility] BP Diastolic 2020-09-12 20:23:00 92 mm[Hg] [facility] BP Systolic 2020-09-12 20:23:00 150 mm[Hg] [facility] Oxygen saturation by 2020-09-12 20:23:00 96 /min [facility] Heart Rate 2020-09-12 20:23:00 95 /min [facility] Respiratory rate 2020-09-12 20:23:00 18 /min [facility] Body Temperature 2020-09-12 20:23:00 97.9 [degF] [facility] Oxygen saturation by 2020-09-12 20:11:00 96 /min [facility] Oxygen saturation by 2020-09-12 18:25:00 98 /min [facility] Oxygen saturation by 2020-09-12 15:35:00 98 /min [facility] Procedures Procedure Date / Time Performing Clinician Source Performed HC COMPLETE BLD COUNT 2021-02-23 09:51:[address] [facility] W/AUTO DIFF BASIC METABOLIC PANEL 2021-02-23 09:51:[address] [facility] ESTIMATED GFR 2021-02-23 09:51:00 [facility] HC COMPLETE BLD COUNT 2021-02-22 09:32:[address] [facility] W/AUTO DIFF BASIC METABOLIC PANEL 2021-02-22 09:32:[address] [facility] ESTIMATED GFR 2021-02-22 09:32:00 [facility] HC COMPLETE BLD COUNT 2021-02-21 09:50:[address] [facility] W/AUTO DIFF BASIC METABOLIC PANEL 2021-02-21 09:50:[address] [facility] LIPID PANEL 2021-02-21 09:50:00 [facility] ESTIMATED GFR 2021-02-21 09:50:00 [facility] COVID-19 ANTI-SPIKE IGG 2021-02-20 23:58:00 [facility] 2021-02-20 23:58:00 [facility] SURVEILLANCE THYROID STIMULATING 2021-02-20 23:58:00 [facility] HORMONE T4, FREE 2021-02-20 23:58:00 [facility] FERRITIN LEVEL 2021-02-20 23:58:00 [facility] LDH 2021-02-20 23:58:00 [facility] SEDIMENTATION RATE 2021-02-20 23:58:00 [facility] CRP HIGH SENSITIVITY 2021-02-20 23:58:00 [facility] INTERLEUKIN 6 2021-02-20 23:58:00 [facility] PROCALCITONIN 2021-02-20 23:58:00 [facility] D-DIMER 2021-02-20 23:58:00 [facility] PROTHROMBIN TIME WITH INR 2021-02-20 23:58:00 [facility] TROPONIN, I-STAT 2021-02-20 15:35:00 [facility] COVID-19 QUALITATIVE 2021-02-20 14:41:00 Osmel Fowler [facility] RT-PCR CT ANGIOGRAM PE CHEST 2021-02-20 13:52:50 Osmel Fowler [facility] US DUPLEX VENOUS LOWER 2021-02-20 12:59:12 [facility] RIGHT Narendra URINALYSIS 2021-02-20 12:35:00 [facility] XR CHEST 1 VW PORTABLE 2021-02-20 12:15:13 [facility] BASIC METABOLIC PANEL 2021-02-20 12:10:00 [facility] ESTIMATED GFR 2021-02-20 12:10:00 Isaac Quiles [facility] Na[facility]ra RESPIRATORY PATHOGEN 2021-02-20 12:05:00 Isaac Quiles [facility] PANEL WITH COVID-19 Narendra RT-PCR COMPREHENSIVE METABOLIC 2021-02-20 11:55:00 Isaac Quiles [facility] PANEL Narendra CBC WITH PLATELET AND 2021-02-20 11:55:00 Isaac Quiles [facility] DIFFERENTIAL Narendra CREATINE KINASE, TOTAL 2021-02-20 11:55:00 Isaac Quiles [facility] Narendra TROPONIN, I-STAT 2021-02-20 11:55:00 Andrew Calix [facility] ESTIMATED GFR 2021-02-20 11:55[facility] PROTHROMBIN TIME WITH 2021-02-20 11:55:00 Isaac Quiles [facility] INR, I-STAT Narendra MANUAL DIFFERENTIAL 2021-02-20 11:55:00 Isaac Quiles [facility] Narendra ECG 12-LEAD 2021-02-20 11:33:15 [facility] ED PRELIMINARY 2021-02-20 11:32:10 Isaac Quiles [facility] INTERPRETATION Narendra PHYSICIAN ORDERS 2021-01-24 05:01:00 Doctor Unanancy, [facility] CERVICAL SPINE WO 2021-01-16 05:11:15 Mumtaz Swanson [facility] CONTRAST [facility] Branch CT HEAD WO CONTRAST 2021-01-16 05:11:15 Mumtaz Swanson [facility] NOTICE OF PRIVACY 2021-01-16 04:10:39 Doctor Bryson, [facility] PRACTICES [facility] HEAD WO CONTRAST 2021-01-11 01:54:48 Sushma Juarez [facility] CONSENT/REFUSAL FOR 2021-01-10 23:21:01 Doctor Unassrodrigo, [facility] DIAGNOSIS AND TREATMENT [facility] NOTICE OF PRIVACY 2020-12-29 19:06:[facility] CONSENT/REFUSAL FOR 2020-12-29 19:06:22 Doctor Unassigned, [facility] DIAGNOSIS AND TREATMENT [facility] ASSIGNMENT OF BENEFITS 2020-12-29 19:06:04 [facility] ASSIGNMENT OF BENEFITS 2020-12-29 17:51:14 Doctor Unassigned, Un [facility] HC COMPLETE BLD COUNT 2020-12-03 10:00:[address] [facility] W/AUTO DIFF BASIC METABOLIC PANEL 2020-12-03 09:00:[address] [facility] ESTIMATED GFR 2020-12-03 09:00:00 [facility] MRI BRAIN WO CONTRAST 2020-12-02 17:48:[address] [facility] BASIC METABOLIC PANEL 2020-12-02 08:52:[address] [facility] ESTIMATED GFR 2020-12-02 08:52:00 [facility] HC COMPLETE BLD COUNT 2020-12-02 08:38:[address] [facility] W/AUTO DIFF US CAROTID DUPLEX 2020-12-01 20:45:00 [facility] BILATERAL TTE COMPLETE, WO 2020-12-01 16:39:21 [facility] CONTRAST, W DOPPLER ([id number]) HC COMPLETE BLD COUNT 2020-12-01 09:30:[address] [facility] W/AUTO DIFF BASIC METABOLIC PANEL 2020-12-01 09:00:[address] [facility] ESTIMATED GFR 2020-12-01 09:00:00 [facility] LIPID PANEL 2020-12-01 02:15:00 [facility] THYROID STIMULATING 2020-12-01 02:15:00 [facility] T[facility], FREE 2020-12-01 02:15:00 [facility] TROPONIN 2020-12-01 02:15:00 [facility] HEMOGLOBIN A1C 2020-12-01 01:15:00 Andrew Calix [facility] URINALYSIS, AUTOMATED 2020-11-30 22:23:00 [facility] WITH MICROSCOPY COVID-19 QUALITATIVE 2020-11-30 21:44:00 [facility] RT-PCR CT HEAD WO CONTRAST 2020-11-30 19:03:25 [facility] CT ANGIOGRAM PE CHEST 2020-11-30 19:03:13 [facility] ECG ED PRELIMINARY 2020-11-30 17:08:13 [facility] INTERPRETATION HC COMPLETE BLD COUNT 2020-11-30 16:15:00 [facility] W/AUTO DIFF PROTHROMBIN TIME WITH INR 2020-11-30 16:15:00 [facility] PARTIAL THROMBOPLASTIN 2020-11-30 16:15:00 [facility] TIME (PTT) COMPREHENSIVE METABOLIC 2020-11-30 16:15:00 [facility] PANEL TROPONIN 2020-11-30 16:15:00 [facility] B NATRIURETIC PEPTIDE 2020-11-30 16:15:00 [facility] ESTIMATED GFR 2020-11-30 16:15:00 [facility] D-DIMER 2020-11-30 16:15:00 [facility] ECG 12-LEAD 2020-11-30 15:58:05 [facility] Computed tomography of 2020-09-20 00:00:00 RUSTAM Bruno - chest with contrast Patients [facility] Exploratory laparotomy 2020-09-15 00:00:00 RUSTAM Bruno - [facility] CT of abdomen and pelvis 2020-03-02 00:00:00 RUSTAM Arora - without contrast Patients [facility] EXTERNAL PROVIDER RECORDS 2019-01-27 05:01:00 Doctor Unassigned, University [facility] Plan of Care Planned Activity Planned Date Details Comments Source Future Scheduled Test 65+ PNEUMOCOCCAL [facility] VACCINE (1 of 2 - PPSV23) [code = 65+ PNEUMOCOCCAL VACCINE (1 of 2 - PPSV23)] Future Scheduled Test COVID-19 VACCINE (1) [facility] [code = COVID-19 VACCINE (1)] Future Scheduled Test SHINGLES VACCINES (#1) [facility] [code = SHINGLES VACCINES (#1)] Future Scheduled Test INFLUENZA VACCINE [code [facility] = INFLUENZA VACCINE] Encounters Start End Encounter Admission Attending Care Care Encounter Source Date/Time Date/Time Type Type Clinicians Facility Department ID 2021-04-30 Emergency [facility] [id number] Univers 09:[facility] 2021-04-30 Emergency [facility] [id number] Univers 08:16:39 [facility] 2020-09-12 Inpatient [facility] [id number] [facility]. 15:27:00 -[id number] [facility] 2021-07-08 2021-07-13 Inpatient FIFI [facility] [id number] [place] 00:00:00 00:00:00 ANDREW 765 Method i 2021-07-01 2021-07-01 Emergency ANNIE [facility] [id number] [place] 00:00:00 00:00:00 SUBHASH 585 Method i 2021-06-18 2021-06-18 Outpatient 2030_Biopsy [facility] [id number] [place] 12:38:00 12:38:00 [facility] 2021-04-11 2021-04-23 Inpatient FIFI [facility] [id number] [place] 00:00:00 00:00:00 ANDREW 777 Method i 2021-04-19 2021-04-19 Inpatient BONI [facility] [id number] [place] 00:00:00 00:00:00 MOHAMMED 627 Metho reena 2021-03-09 2021-03-09 Emergency LORY ALEJO [facility] [id number] [place] 00:00:00 00:00:00 967 Method i 2021-02-20 2021-02-23 Hospital Melissa CALIX.2.840.1 [id number] [place] 00:00:00 00:00:00 Encounter ANDREW 13742.1.1 [address] .3.584954 .8 2021-02-20 2021-02-20 Travel 1.2.840.1 1.2.167.828 [id number] Methodi 00:00:00 00:00:[address] 3.430.2.7 0.2.7.3.698 Ho spita .3.103883 084.8 l .8 2021-01-30 2021-01-30 Outpatient R HESHAM [facility] [id number] Univers 14:30:00 14:30:00 WONDIFUL ity o f [facility] 2021-01-24 2021-01-24 Shook 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 [facility] Main [facility] 1.2.8 40.114 [id number] Univers 15:50:12 16:05:12 Visit David Cruz 350.1.13.1 0 ity [facility] 4[place].2.[place] [facility] [id number] Me dical [address] 2021-01-24 2021-01-24 Outpatient R [facility] [id number] Univers 16:00:00 16:00:00 [id number] ity of [facility] 2021-01-24 2021-01-24 Outpatient R ANTHONY [facility] [id number] Univers 16:00:00 16:00:00 DAVID ity [facility] 2021-01-24 2021-01-24 Orders Doctor DAVID 1.2.840.114 [id number] Univers 00:00:00 00:00:00 Only Unassigned, GREGORY 350.1.13.10 ity of [place] [facility] 4.2.7.2.686 Flash as [id number] [address] 2021-01-15 2021-01-16 Emergency , [facility] 1.2.783.860 [id number] Univers 23:22:00 03:17:00 Mumtaz Tineo 350.1.13.10 i [place].2.[place] [id number] [facility] [address] [place] 2021-01-10 2021-01-10 Emergency Amalia, Sagar [facility] 1.2.840.114 [id number] Univers 18:49:00 22:03:00 May Tineo 350.1.13.10 i [place] 4.2.7.2.686 [facility] [id number] [facility] [address] [place] 2020-12-29 2020-12-29 Hospital [facility] 1.2.840.114 [id number] Univers 14:04:19 23:59:00 Encounter Melody [place] 350.1.13.10 ity [place] 4.2.7.2.686 [facility] [phone] [facility] [address] [place] 2020-12-29 2020-12-29 Hospital [facility] 1.2.840.114 [id number] Univers 14:00:00 14:03:00 Encounter Melody [place] 350.1.13.10 ity [place] 4.2.7.2.686 [facility] [id number] [address] 2020-12-29 2020-12-29 Outpatient [facility] [id number] Univers 14:00:00 14:00:00 MELODY [id number] ity [facility] 2020-12-29 2020-12-29 [facility] 1.2.840.114 [id number] Univers 12:52:54 13:35:06 Visit Melody [facility] 350.1.13.10 i ty of [place] 4.2.7.2.686 Flash Professio [id number] [place] dical [address] Office [address] 2020-12-29 2020-12-29 [facility] 1.2.840.114 [id number] 12:52:54 13:35:06 Visit Melody [facility] 350.1.13.10 [place] 4.2.7.2.686 Professio [id number] nal [facility] Office Building One 2020-12-29 2020-12-29 Outpatient R [facility] [id number] Univers 13:00:00 13:00:00 MELODY ity of [facility] 2020-12-29 2020-12-29 Orders Doctor DAVID 1.2.840.114 [id number] Univers 00:00:00 00:00:00 Only Unassigned, GREGORY 350.1.13.10 ity [place] [facility] 4.2.7.2.686 Flash as [phone] [address] 2020-11-30 2020-12-04 Hospital FIFI, 1.2.840.1 [id number] [place] 00:00:00 00:00:00 Encounter ANDREW 38519.1.1 [address].2.[address] .3.937354 .8 2020-11-30 2020-11-30 Travel 1.2.840.1 1.2.032.905 [id number] [facility] 00:00:00 00:00:[address] 3.430.2.7 0.2.7.3.698 Ho spita .3.979482 084.8 l .8 2020-09-12 2020-09-28 Discharged [address] [facility] [id number] 19:18:00 13:20:00 Inpatient SOUHEIL Patients 99 [facility] 2020-03-02 2020-03-02 Outpatient [facility] [id number] 14:00:00 14:00:00 -[id number] [place] - Patient [facility] 2020-03-02 2020-03-02 Registered [address] [facility] [place] [id number] 13:32:00 13:32:00 Clinic JEANNINE Patients 29 [facility] 2020-02-24 2020-02-24 Outpatient [facility] [id number] 14:00:00 14:00:00 -[id number] [place] Patient [facility] 2020-02-23 2020-02-23 Outpatient [facility] [id number] 12:00:00 12:00:00 -[id number] [facility] 2019-01-27 2019-01-27 Orders Doctor DAVID 1.2.840.114 [id number] Univers 00:00:00 00:00:00 Only Unassigned, GREGORY 350.1.13.10 ity of [place] [facility] 4.2.7.2.686 Flash as [phone] [facility] 009 Branch Results Test Description Test Time Test Comments Results Result Comments Source SARS-CoV-2 (COVID-19) RNA [Presence] in Respiratory sp ecimen by 2021-07-08 22:24:52 MARSHA with probe detection Test Item Value Reference Range Interpretation Comme nts SARS-CoV-2 (COVID-19) RNA [Presence] in Respiratory Detected No t-Detected specimen by MARSHA with probe detection (test code = 80926-0) Whether patient is employed in a healthcare setting (test code = 08007-1) Whether the patient has symptoms related to condition of interest (test code = 90787-7) Patient was hospitalized because of this condition (test code = 11905-5) Whether the patient was admitted to intensive care unit (ICU) for condition of interest (test code = 85975-7) Whether patient resides in a congregate care setting (test code = 90447-4) ECG 12 pkwk9198-98-70 17:04:06 Test Item Value Reference Range Interpretation Comments Ventricular rate (test code = 253) Atrial rate (test code = 255) NV interval (test code = 266) QRSD interval (test code = 260) QT interval (test code = 264) QTC interval (test code = 265) P axis 1 (test code = 267) QRS axis 1 (test code = 268) T wave axis (test code = 270) EKG impression (test Normal sinus code = 273) rhythm-Normal ECG-In automated comparison with ECG of 30-NOV-2020 10:58,-No significant change was found[facility] Frhxp8870-15-71 13:59:27EXAMINATION: CT ANGIOGRAM PE CHEST HISTORY: 89 [...] Other findings: 0.7 cm calcified right thyroid nodule.Visualized Upper abdomen: Small hiatal hernia. 6.2 cm [...] mild pulmonary edema.[id number] HospitalUs duplex venous lower eahuemcuv0674-49-25 12:59:58EXAMINATION: US DUPLEX VENOUS LOWER EXTREMITY RIGHT [...] lower extremity named vessels as described above. [id number] Interface, Radiology Results 02/20/2021 8:03 AM CDT [...] lower extremity named vessels as described above. [id number] HospitalXR Chest 1 Yvnbrvqf6878-56-68 12:29:01 EXAMINATION: XR CHEST 1 VW PORTABLE CLINICAL [...] wires and atherosclerosis unchangedUnderlying osteopeniaNo acute bony abnormalityCholecystectomy clipsSingle view chest.6OM1RAD_PS02[facility] HospitalECG ED Preliminary Interpretation - Not an Xbxep4950-66-90 11:32:10 Osmel Fowler MD 02/20/2021 10:18 AMECG ED Preliminary Interpretation - Not an OrderPerformed by: Isaac Quiles MDAuthorized by: Isaac Quiles MD Interpretation: Interpretation: non-specific Quality: Tracing quality: Limited by artifactRate: ECG rate: 65 ECG rate assessment: normal Rhythm: Rhythm: sinus rhythm ST segments: ST segments: Non- specificT waves: T waves: non-specificMethodist HospitalCT HEAD WO CONTRAST 2021-01-11 01:56:56 No acute intracranial abnormality. CT HEAD [...] and mastoidair cells are clear. Left pseudophakia. [facility], Radiant Results Inft User - [...] cells are clear. Left pseudophakia.IMPRESSIONNo acute intracranial abnormality. [facility] Brain Wo Gcewfcmy9308-63-92 18:04:52 EXAMINATION: MRI BRAIN WO CONTRAST CLINICAL HISTORY: Memory [...] IMPRESSION: No structural evidence of neurodegenerative disease. TW- [id number] Interface, Radiology Results [facility] 12/02/2020 1:08 PM CDT EXAMINATION: MRI BRAIN [...] Nonspecific diffuse hypoperfusion.IMPRESSION:No structural evidence of neurodegenerative disease.HMTW-[id number] HospitalPv carotid fbjrxi9586-11-85 02:56:00 [facility] Ul[facility] Laboratory Carotid Artery Duplex Report [address] [place] [address] For quality process lead purposes, the categorization of the degree of the stenosis of this exam is based on criteria described in the IAC carotid stenosis grading white paper( ww w.intersocietal.org/Vascular) and Shakira Angulo., Mary RuthB., et al. Carotid artery stenosis: davis-scale and Doppler US diagnosis--Society of Radiologists in Ultrasound Consensus Conference. Radiology. 2003 Nov; 229(2):340-6. Pat.Name: JUSTICE HARDY Pat.ID: [id number] .Date: 12/01/2020 Refer.MD: ANDREW CALIX MD Exam Time: 3:19:00 PM Study Type:Carotid Height: 64in Weight: 120lb BSA: 1.58 m2 Age: 7 1930,89Y Sex: MALE Sonogrphr: VINCENZO Leigh Pat. Stat.:Inpatient Room: [facility] 0850-A Tape Vol: GB, CPT - 4: 53984 Echo Event ID:[id number] Order ID: [id number] Reason for Study:Altered mental status. History of [...] [facility] Ultrasound Laboratory Carotid Artery Duplex Report [address] [place] [address] For quality process lead purposes, the categorization of the degree of the stenosis of this examis based on criteria described in the IAC carotid stenosis grading white paper( www.intersocietal.org/Vascular) and Shakira Angulo., Zuri Ruth, et al. Carotid artery stenosis: davis-scale and Doppler US diagnosis--Society of Radiologists in Ultrasound Consensus Conference. Radiology. 2003 Nov; 229(2):340 -6. Pat.Name: JUSTICE HARDY Pat.ID: [id number] .Date: 12/01/2020 Refer.MD: ANDREW CALIX MD Exam Time: 3:19:00 PM Study Type:Carotid Height: 64in Weight: 120lb BSA: 1.58 m2 Age: 7 1930,89Y Sex: MALE Sonogrphr: VINCENZO Leigh Pat. Stat.:Inpatient Room: [address] Tape Vol: GB, CPT - 4: 75562 Echo Event ID:[id number] Order ID: [id number] Reason for Study:Altered mental status. History of [...] Ratio ICA/CCA PSV 0.621 Signed 12/01/2020 09:56 PMZsolt Tosin MD, [facility] Transthoracic Echocardiogram Complete, (w Contrast, Strain and 3D if needed) 2020-12-01 19:37:00 Echocardiography Report [address]Name: JUSTICE HARDY Pat.ID: [id number] .Date: 12/01/2020 Refer.MD: ANDREW CALIX MDExfay Time: 10:51:00 AM Study Type:Routine Echo Height: 64in Weight: 120lb BSA: 1.58 m2 Age: 7 1930,89Y Sex: MALE BP: 183/90 HR: 90 bpm Sonogrphr: ROSIE Mishra Pat. Stat.:Inpatient Room: [facility] Study Status:Final Echo Event ID:[id number] ID: [id number] Reason for Study:hx of TAVR History / [...] PA systolic p ressure. MEASUREMENTS: 2DParasternal Long [place] Ao An 1.9 cm LVPWd0.94 cm Ao [...] 12/01/2020 2:38 PM CDT Echocardiography Report [address] [place] [address] Pat.Name: JUSTICE HARDY Pat.ID: [id number] .Date: 12/01/2020 Refer.MD: ANDREW CALIX MDExam Time: 10:51:00 AM Study Type:Routine Echo Height: 64in Weight: 120lb BSA: 1.58 m2 Age: 7 1930,89Y Sex: MALE BP: 183/90 HR: 90 bpm Sonogrphr: ROSIE Mishra Pat. Stat.:Inpatient Room: [facility] Study Status:Final Echo Event ID:[id number] Order ID: [id number] Reason for Study:hx of TAVR History / [...] estimate PA systolic pressure. MEASUREMENTS: 2DParasternal Long [place] Ao An 1.9 cm LVPWd 0.94 cm [...] l/m/m2 Signed 12/01/2020 02:37 PMSherif Mara Magdaleno M.D.[facility] CT Head Wo Vcsexbds9615-01-27 19:08:27EXAMINATION: CT HEAD WO CONTRAST CLINICAL HISTORY: [...] cells are clear. IMPRESSION: Noacute intracranial abnormalities. [facility]-[id number] Interface, Radiology Results - 11/30/2020 2:11 PM [...] air cells are clear.IMPRESSION:No acute intracranial abnormalities .[facility]-[id number] [facility] leukocytes automated count (number/volume)2020-09-28 05:25:00 Test Item Value Reference Range Interpretation Comments White Blood Count (test code = 6690-2) 10.37 4.8-10.8 [facility] erythrocytes automated count (number/volume)2020-09-28 05:25:00 Test Item Value Reference Range Interpretation Comments Red Blood Count (test code = 789-8) 3.00 4.3-5.7 [facility] hemoglobin measurement (moles/volume)2020-09-28 05:25:00 Test Item Value Reference Range Interpretation Comments Hemoglobin (test code = 95638-0) 9.1 14.0-18.0 [facility] HospitalAutomated blood hematocrit (volume fraction)2020-09-28 05:25:00 Test Item Value Reference Range Interpretation Comments Hematocrit (test code = 4544-3) 26.0 38.2-49.6 [facility] HospitalAutomated erythrocyte mean corpuscular ahihbr1921-61-70 05:25:00 Test Item Value Reference Range Interpretation Comments Mean Corpuscular Volume (test code = 86.7 81-99 787-2) [facility] HospitalAutomated erythrocyte mean corpuscular hemoglobin (mass per erythrocyte)2020-09-28 05:25:00 Test Item Value Reference Range Interpretation Comments Mean Corpuscular Hemoglobin (test code 30.3 28-32 = 785-6) [facility] HospitalAutomated erythrocyte mean corpuscular hemoglobin concentration measurement (mass/volume)2020-09-28 05:25:00 Test Item Value Reference Range Interpretation Comments Mean Corpuscular Hemoglobin Concent 35.0 31-35 (test code = 786-4) [facility] HospitalRDW BwpTg-Mqz7227-74-01 05:25:00 Test Item Value Reference Range Interpretation Comments Red Cell Distribution Width (test code 16.1 11.7-14.4 = 16578-5) [facility] HospitalAutomated blood platelet count (count/volume)2020-09-28 05:25:00 Test Item Value Reference Range Interpretation Comments Platelet Count (test code = 777-3) 253 140-360 [facility] HospitalAutomated blood segmented neutrophil count as percentage of total shizbofxwf8537-14-21 05:25:00 Test Item Value Reference Range Interpretation Comments Neutrophils (%) (Auto) (test code = 77.9 38.7-80.0 39858-2) [facility] HospitalAutomated blood lymphocyte count as percentage ot total giqrrymooa2097-28-69 05:25:00 Test Item Value Reference Range Interpretation Comments Lymphocytes (%) (Auto) (test code = 12.3 18.0-39.1 736-9) [facility] HospitalAutomated blood monocyte count as percentage of total wwpcebpoap3701-03-66 05:25:00 Test Item Value Reference Range Interpretation Comments Monocytes (%) (Auto) (test code = 6.4 4.4-11.3 5905-5) [facility] HospitalAutomated blood eosinophil count as percentage of total jsbqkfqsou6578-88-32 05:25:00 Test Item Value Reference Range Interpretation Comments Eosinophils (%) (Auto) (test code = 1.8 0.0-6.0 713-8) [facility] HospitalAutomated blood basophil count as percentage of total ijovzhwvgb6840-78-24 05:25:00 Test Item Value Reference Range Interpretation Comments Basophils (%) (Auto) (test code = 0.4 0.0-1.0 706-2) [facility] HospitalFluoroscopic procedure less than one hour awumgyyn4425-31-68 05:25:00 Test Item Value Reference Range Interpretation Comments IM GRANULOCYTES % (test code = IM 1.2 0.0-1.0 GRANULOCYTES %) [facility] HospitalAutom[facility] blood neutrophil count 2020-09-28 05:25:00 Test Item Value Reference Range Interpretation Comments Neutrophils # (Auto) (test code = 8.1 2.1-6.9 751-8) [facility] HospitalBlood lymphocytes count (number/volume) 2020-09-28 05:25:00 Test Item Value Reference Range Interpretation Comments Lymphocytes # (Auto) (test code = 1.3 1.0-3.2 99669-4) [facility] HospitalBlood monocytes automated count (number/volume)2020-09-28 05:25:00 Test Item Value Reference Range Interpretation Comments Monocytes # (Auto) (test code = 742-7) 0.7 0.2-0.8 [facility] HospitalAutomated blood eosinophil count 2020-09-28 05:25:00 Test Item Value Reference Range Interpretation Comments Eosinophils # (Auto) (test code = 0.2 0.0-0.4 711-2) [facility] HospitalAutomated blood basophil count (count/volume)2020-09-28 05:25:00 Test Item Value Reference Range Interpretation Comments Basophils # (Auto) (test code = 704-7) 0.0 0.0-0.1 [facility] HospitalFluoroscopic procedure less than one hour oluqdpwp3453-99-99 05:25:00 Test Item Value Reference Range Interpretation Comments Absolute Immature Granulocyte (auto 0.12 0-0.1 (test code = Absolute Immature Granulocyte (auto) [facility] sodium measurement (moles/volume)2020-09-28 05:25:00 Test Item Value Reference Range Interpretation Comments Sodium Level (test code = 2951-2) 132 136-145 [facility] potassium measurement (moles/volume)2020-09-28 05:25:00 Test Item Value Reference Range Interpretation Comments Potassium Level (test code = 2823-3) 3.3 3.5-5.1 [facility] chloride measurement (moles/volume)2020-09-28 05:25:00 Test Item Value Reference Range Interpretation Comments Chloride Level (test code = 2075-0) 106 98-107 [facility] or plasma carbon dioxide, total measurement (moles/volume)2020-09-28 05:25:00 Test Item Value Reference Range Interpretation Comments Carbon Dioxide Level (test code = -8-9) [facility] plasma anion zsr1784-48-90 05:25:00 Test Item Value Reference Range Interpretation Comments Anion Gap (test code = 85533-3) 9.3 8-16 [facility] plasma urea nitrogen measurement (mass/volume)2020-09-28 05:25:00 Test Item Value Reference Range Interpretation Comments Blood Urea Nitrogen (test code = 18 7- 3094-0) [facility] creatinine measurement (mass/volume)2020-09-28 05:25:00 Test Item Value Reference Range Interpretation Comments Creatinine (test code = 2160-0) 0.83 0.72-1.25 [facility] plasma urea nitrogen/creatinine mass dhxct7062-75-01 05:25:00 Test Item Value Reference Range Interpretation Comments BUN/Creatinine Ratio (test code = 12-22 3097-3) [facility] HospitalEstimated glomerular filtration rate (GFR) sjlowhrwunsql0965-67-16 05:25:00 Test Item Value Reference Range Interpretation Comments Estimat Glomerular > 60 See_Comment [Automat ed message] The Filtration Rate (test system which generated code = 450203459) this resul t transmitted reference range : 60-. The reference r duane was not used to int erpret this result as normal/abnormal . [facility] HospitalGlucose nkfmylulydx8136-58-28 05:25:00 Test Item Value Reference Range Interpretation Comments Glucose Level (test code = MNN6033) 104 74-118 [facility] calcium measurement (mass/volume)2020-09-28 05:25:00 Test Item Value Reference Range Interpretation Comments Calcium Level (test code = 32965-1) 7.4 8.4-10.2 [facility] total bilirubin measurement (mass/volume)2020-09-28 05:25:00 Test Item Value Reference Range Interpretation Comments Total Bilirubin (test code = 1975-2) 0.7 0.2-1.2 [facility] HospitalFluoroscopic procedure less than one hour dcooyybp8141-90-29 05:25:00 Test Item Value Reference Range Interpretation Comments Aspartate Amino Transf (AST/SGOT) (test 74 5-34 code = Aspartate Amino Transf (AST/SGOT)) [facility] plasma alanine aminotransferase measurement (enzymatic activity/volume)2020-09-28 05:25:00 Test Item Value Reference Range Interpretation Comments Alanine Aminotransferase (ALT/SGPT) 107 0-55 (test code = 1742-6) [facility] (mass/volume)2020-09-28 05:25:00 Test Item Value Reference Range Interpretation Comments Total Protein (test code = 2885-2) 4.2 6.5-8.1 [facility] albumin measurement (mass/volume)2020-09-28 05:25:00 Test Item Value Reference Range Interpretation Comments Albumin (test code = 1751-7) 1.9 3.5-5.0 [facility] glob[facility] (mass/volume) 2020-09-28 05:25:00 Test Item Value Reference Range Interpretation Comments Globulin (test code = 30717-6) 2.3 2.3-3.5 [facility] albumin/globulin mass ymxca0795-16-66 05:25:00 Test Item Value Reference Range Interpretation Comments Albumin/Globulin Ratio (test code = 0.8 0.8-2.0 1759-0) [facility] alkaline phosphatase measurement (enzymatic activity/volume)2020-09-28 05:25:00 Test Item Value Reference Range Interpretation Comments Alkaline Phosphatase (test code = 100 40-150 6768-6) [facility] HospitalTrop[facility] I measurement by highly sensitive enzyme gnrsdcoqwpe0918-46-59 05:25:00 Test Item Value Reference Range Interpretation Comments Troponin I (test code = 11241-8) 0.109 0-0.300 [facility] SINGLE (PORTABLE)2020-09-26 10:41:00[facility] : 1930 Sex: [place] [address] Patient Name: JUSTICE HARDY MR #: [id number] : 1930 Age/Sex: 89/M Req #: [id number] Adm Physician: ZACHARIAH SAINI MD Ordered by: ARASH CASTORENA MD Report #: [id number] Location: MED/SURG Room/Bed: [facility] Procedure: [id number] DX/CHEST SINGLE (PORTABLE) Exam Date: 09/26/20 Exam [...] ARASH CASTORENA MDABDOMEN 2 VIEW 2020-09-26 09:13:00 [facility] : 1930 Sex: M [facility] [address] [place] [address] Patient Name: JUSTICE HARDY MR #: [id number] : 1930 Age/Sex: 89/M Req #: [id number] Adm Physician: ZACHARIAH SAINI MD Ordered by: JEANNINE SAINI MD Report #: [id number] Location: MED/SURG Room/Bed: [facility] Procedure: [id number] DX/ABDOMEN 2 VIEW Exam Date: 09/26/20 Exam [...] Natriuretic Peptide (test code = 50.2 0-100 56858-3) [facility] amylase [facility] (enzymatic activity/volume)2020-09-26 05:17:00 Test Item Value Reference Range Interpretation Comments Amylase Level (test code = 1798-8) 98 25-125 [facility] lipase measurement (enzymatic activity/volume)2020-09-26 05:17:00 Test Item Value Reference Range Interpretation Comments Lipase (test code = 3040-3) 98 8-78 [facility]AB[facility] 2 [id number] 23:59:00 [facility] : 1930 Sex: [place] [address] Patient Name: JUSTICE HARDY MR #: [id number] : 1930 Age/Sex: 89/M Req #: [id number] Adm Physician: ZACHARIAH SIANI MD Ordered by: JEANNINE SAINI MD Report #: [id number] Location: MED/SURG Room/Bed: [facility] Procedure: [id number] DX/ABDOMEN 2 VIEW Exam Date: 09/24/20 Exam Time: 2329 REPORT STATUS: Signed EXAM: Abdomen Radiograph 2 View(s) INDICATION: bloody stool [id number] 2330 Y COMPARISON: 09/15/2019 FINDINGS: Prosthetic heart [...] levels are seen in the right hemiabdomen. [place] lucency in the upper abdomen on the upright view projecting over the T12 vertebral body , likely represents pneumoperitoneum IMPRESSION: 1. Overall appearance of postsurgical ileus with diffuse mildly dilated small bowel and distended air distended colon to the level of the rectum. Distal obstruction is not excluded. Recommend radiographic follow-up until resolution. 2. [place] lucency projecting over the T12 vertebral body may represent pneumoperitoneum as seen on recent chest CT, possibly related to recent surgery. Signed by: Patricia Wheat MD on 09/25/2020 12:48 AM Dictated By: TIESHA WHEAT MD Transcribed By: AYDEN on 09/25/2047 COPY TO: JEANNINE SAINI MDSerum or plasma magnesium measurement (mass/volume)2020-09-23 16:40:00 Test Item Value Reference Range Interpretation Comments Magnesium Level (test code = 59993-0) 1.5 1.3-2.1 [facility] HospitalFluoroscopic procedure less than one hour fuvjirip2100-12-73 08:51:00 Test Item Value Reference Range Interpretation Comments Differential Total Cells Counted (test 100 code = Differential Total Cells Counted) [facility]100 leukocytes 2020-09-22 08:51:00 Test Item Value Reference Range Interpretation Comments Neutrophils % (Manual) (test code = 86 40-74 52512-6) [facility] blood band neutrophils form/100 ubutegzjay5777-82-08 08:51:00 Test Item Value Reference Range Interpretation Comments Band Neutrophils % (test code = 764-1) 0 [facility] blood lymphocytes/100 leukocytes 2020-09-22 08:51:00 Test Item Value Reference Range Interpretation Comments Lymphocytes % (Manual) (test code = 7 19-48 737-7) [facility] blood monocytes/100 leukocytes 2020-09-22 08:51:00 Test Item Value Reference Range Interpretation Comments Monocytes % (Manual) (test code = 7 3.4-9.0 744-3) [facility] HospitalAutomated reticulocyte count as percentage of total fftoulzoezfg8959-94-96 05:15:00 Test Item Value Reference Range Interpretation Comments Percent Reticulocyte Count (test code = 1.5 0.8-2.2 89949-9) [facility] iron measurement (mass/volume)2020-09-21 05:15:00 Test Item Value Reference Range Interpretation Comments Iron Level (test code = 2498-4) 26 65-175 [facility] iron binding capacity measurement (mass/volume)2020-09-21 05:15:00 Test Item Value Reference Range Interpretation Comments Total Iron Binding Capacity (test code 193 261-908 = 2500-7) [facility] iron saturation measurement (mass fraction)2020-09-21 05:15:00 Test Item Value Reference Range Interpretation Comments Percent Iron Saturation (test code = 50 2502-3) [facility] transferrin measurement (mass/volume)2020-09-21 05:15:00 Test Item Value Reference Range Interpretation Comments Transferrin (test code = 3034-6) 138 174-364 [facility] HospitalBlood cobalamin (vitamin B12) measurement (mass/volume)2020-09-21 05:15:00 Test Item Value Reference Range Interpretation Comments Vitamin B12 Level (test code = 82049-0) 591 213-816 [facility] folate measurement (mass/volume)2020-09-21 05:15:00 Test Item Value Reference Range Interpretation Comments Folate (test code = 2284-8) 17.8 >3.0 [facility] HospitalCT CHEST K2600-53-68 21:42:00 [facility] : 1930 Sex: [place] [address] Patient Name: JUSTICE HARDY MR #: [id number] : 1930 Age/Sex: 89/M Req #: [id number] Adm Physician: ZACHARIAH SAINI MD Ordered by: AJ FLYNN DO Report #: [id number] Location: MED/SURG Room/Bed: [facility] Procedure: [id number] CT/CT CHEST W Exam Date: 09/20/20 Exam Time: 2114 REPORT STATUS: Signed EXAM: CT Chest WITH contrast 09/20/2020 9:15 PM INDICATION: PE [id number] 2114 COMPARISON: None TECHNIQUE: Chest was scanned [...] 09/20/202199 COPY TO: AJ FLYNN DO Phosphorus ayzqihsjjsf5329-14-34 03:45:00 Test Item Value Reference Range Interpretation Comments Phosphorus Level (test code = WCE4791) 0.8 2.3-4.7 [facility] HospitalCHES SINGLE (PORTABLE)2020-09-17 15:26:00[facility] : 1930 Sex: [place] [address] Patient Name: JUSTICE HARDY MR #: [id number] : 1930 Age/Sex: 89/M Req #: [id number] Adm Physician: ZACHARIAH SAINI MD Ordered by: ZACHARIAH SAINI MD Report #: [id number] Location: ICU Room/Bed: ICU Count includes the [facility] Procedure: [id number] DX/CHEST SINGLE (PORTABLE) Exam Date: 09/17/20 Exam Time: 1450 REPORT STATUS: Signed EXAMINATION: CHEST SINGLE (PORTABLE) INDICATION: SOB, tachypnea [id number] 1450 COMPARISON: Prior x-rays including most recent [...] 4:11 PM Dictated By: JON CRUM MD 1611 Transcribed By: AYDEN on 09/17/201610 COPY TO: ZACHARIAH SAINI MD Prothrombin time (PT) in platelet poor plasma by coagulation twvpy9528-01-09 10:55:00 Test Item Value Reference Range Interpretation Comments Prothrombin Time (test code = 5902-2) 16.5 11.9-14.5 [facility] HospitalINR in Platelet poor plasma by Coagulation kxtwn2782-20-95 10:55:00 Test Item Value Reference Range Interpretation Comments Prothromb Time International Ratio 1.25 (test code = 6301-6) [facility] HospitalCHES XRAY LINE BUUZHVMWQ9992-54-52 20:57:00[facility] : 1930 Sex: [place] [address] Patient Name: JUSTICE HARDY MR #: [id number] : 1930 Age/Sex: 89/M Req #: [id number] Adm Physician: ZACHARIAH SAINI MD Ordered by: ZACHARIAH SAINI MD Report #: [id number] Location: ICU Room/Bed: ICU Count includes the [facility] Procedure: [id number] DX/CHEST XRAY LINE PLACEMENT Exam Date: 09/16/20 [...] AYDEN on 09/16/202101 COPY TO: ZACHARIAH SAINI [facility]2020-09-15 14:55:00 [facility] : 1930 Sex: [place] [address] Patient Name: JUSTICE HARDY MR #: [id number] : 1930 Age/Sex: 89/M Req #: [id number] Adm Physician: ZACHARIAH SAINI MD Ordered by: DHARMESH LINARES MD Report #: [id number] Lo cation: MED/SURG Room/Bed: [facility] Procedure: [id number] DX/CHEST SINGLE (PORTABLE) Exam Date: 09/15/20 Exam [...] Signed By: SCHUYLER GUERRA MD on 09/15/20 338 Transcribed By: AYDEN on 09/15/201456 COPY TO: DHARMESH LINARES MDABDOMEN ACUTE SERIES W/PA CXR 2020-09-15 10:17:00 [facility] : 1930 Sex: [place] [address] Patient Name: JUSTICE HARDY MR #: [id number] : 1930 Age/Sex: 89/M Req #: [id number] Adm Physician: ZACHARIAH SAINI MD Ordered by: DHARMESH LINARES MD Report #: [id number] Lo cation: MED/SURG Room/Bed: [facility] Procedure: [id number] DX/ABDOMEN ACUTE SERIES W/PA CXR Exam Date: [...] on 09/15/20 1020 COPY TO: DHARMESH LINARES [facility] ACUTE SERIES W/TENZIN [id number] 10:50:00 [facility] : 1930 Sex: [place] [address] Patient Name: JUSTICE HARDY MR #: [id number] : 1930 Age/Sex: 89/M Req #: [id number] Adm Physician: ZACHARIAH SAINI MD Ordered by: DHARMESH LINARES MD Report #: [id number] Lo cation: MED/SURG Room/Bed: [facility] Procedure: [id number] DX/ABDOMEN ACUTE SERIES W/PA CXR Exam Date: 09/14/20 Exam Time: 1020 REPORT STATUS: Signed X-ray abdomen acute series with 2 views of the abdomen and a single view of the chest INDICATION: sbo [id number] 1020 Comparison: X-ray dated 09/14/2019. Discussion: Lungs [...] Kinase (test code = 2157-6) 385 30-200 [facility] creatine kinase MB measurement (mass/volume)2020-09-13 11:24:00 Test Item Value Reference Range Interpretation Comments Creatine Kinase MB (test code = 2.90 0-5.0 52319-9) [facility]AB[facility] 2 [id number] 09:26:00 [facility]B: 1930 Sex: [place] [address] Patient Name: JUSTICE HARDY MR #: [id number] : 1930 Age/Sex: 89/M Req #: [id number] Adm Physician: ZACHARIAH SAINI MD Ordered by: SHANNAN CERVANTES MD Report #: [id number] Location: MED/SURG Room/Bed: [facility] Procedure: [id number] DX/ABDOMEN 2 VIEW Exam Date: 09/13/20 Exam [...] code = Lactic 0.7 0.5-2.0 Acid Level) [facility] HospitalFluoroscopic procedure less than one hour ptubqecz6565-07-80 19:02:00 Test Item Value Reference Range Interpretation Comments Coronavirus (PCR) (test code = NOT DETECTED NOTDETECTED Coronavirus (PCR)) [facility] HospitalCT ABD/PEL WO [id number]-[id number] 17:30:00[facility] : 1930 Sex: [place] [address] Patient Name: JUSTICE HARDY MR #: [id number] : 1930 Age/Sex: 89/M Req #: [id number] Adm Physician: Ordered by: SHANNAN CERVANTES MD Report #: [id number] Location: [facility] Room/Bed: Procedure: [id number] HOPD/CT ABD/PEL WO CONTRAST-HOPD Exam Date: 09/12/20 Exam Time: 1658 REPORT STATUS: Signed EXAM: CT Abdomen and Pelvis WITHOUT contrast INDICATION: abd pain, nausea, retching [id number] 1657 COMPARISON: CT abdomen and pelvis on [...] 09/12/201744 COPY TO: SHANNAN CERVANTES MDCT ABDOMEN/PELVIS [id number] 15:20:00 [place] [address] Patient Name: JUSTICE HARDY MR #: [id number] : 1930 Age/Sex: 89/M Req #: [id number] [facility] Physician: Mario boyd by: JEANNINE SAINI MD Report #: [id number] Location: CT Room/Bed: Procedure: [id number] CT/CT ABDOMEN/PELVISWO Exam Date: 03/02/20 Exam Time: [...]
--- NOTE | 2021-07-16 07:22 | RAD REPORT ---
EXAM DESCRIPTION: CT - CTHCSPWOC - 07/16/2021 7:01 am CLINICAL HISTORY: Trauma, head and neck injury. fall injury COMPARISON: No comparisons TECHNIQUE: Axial 5 mm thick images of the head were obtained. Axial 2 mm thick images of the cervical spine were obtained with sagittal and coronal reconstruction images generated and reviewed. All CT scans are performed using dose optimization technique as appropriate and may include automated exposure control or mA/KV adjustment according to patient size. FINDINGS: CT HEAD WITHOUT CONTRAST: No acute hemorrhage, hydrocephalus or extra-axial collection is identified.No areas of brain edema or midline shift. Ethmoid air cell thickening is noted.The calvarium is intact. Basal ganglia mineralization. CT CERVICAL SPINE WITHOUT CONTRAST: No fracture or subluxation.No prevertebral soft tissues swelling is identified. Multilevel cervical s pondylosis with varying degrees of neural foraminal narrowing which is most advanced at the C4-5 leve l were there is severe neural foraminal narrowing bilaterally. No central spinal stenosis. Thyroid no dules noted. IMPRESSION: No acute intracranial or cervical spine findings.
--- NOTE | 2021-07-16 07:27 | ER ---
Nurse's Notes [facility] Name: Benito Castaneda Age: 89 yrs Sex: Male : 1930 Arrival Date: 07/16/2021 Time: 06:39 Bed 30 Private MD: Diagnosis: Unspecified superficial injury of other part of head, initial encounter;Strain of muscle, fascia and tendon at neck level, initial encounter Presentation: 07/16 06:39 Chief complaint: EMS states: pt rolled out of bed and hit head. Coronavirus screen: as6 Client reports previous positive COVID test result. Ebola Screen: No symptoms or risks identified at this time. Initial Sepsis Screen: Does the patient meet any 2 criteria? No. Patient's initial sepsis screen is negative. Does the patient have a suspected source of infection? No. Patient's initial sepsis screen is negative. Risk Assessment: Do you want to hurt yourself or someone else? Patient reports no desire to harm self or others. Onset of symptoms was July 16, 2021. 06:39 Method Of Arrival: EMS: [facility] as6 06:39 Acuity: ANT 3 as6 Historical: - Allergies: 06:41 Cardura; as6 06:41 doxazosin; as6 06:41 Iodine; (fine with benadryl); as6 06:41 Lipitor; as6 06:41 SULFUR, ELEMENTAL; as6 - Home Meds: 06:41 clonidine HCl 0.1 mg Oral tab 1 tab 2 times per day [Active]; Eliquis 2.5 mg Oral tab 1 as6 tab 2 times per day [Active]; finasteride 5 mg Oral tab 1 tab once daily [Active]; Flomax 0.4 mg Oral cap 1 cap once daily [Active]; lisinopril 5 mg Oral tab 1 tab twice a day [Active]; omeprazole 40 mg Oral cpDR 1 cap once daily [Active]; - PMHx: 06:41 aortic valve replacement; cardiac stents; CVA; Diverticulitis; 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 - Social history:: Smoking status: Patient denies any tobacco usage or history of. Screenin:43 Abuse screen: Denies threats or abuse. Denies injuries from another. Nutritional as6 screening: No deficits noted. Tuberculosis screening: No symptoms or risk factors identified. Fall Risk Fall in past 12 months (25 points). No secondary diagnosis (0 pts). No IV (0 pts). Total Brady Fall Scale indicates Low Risk Score (25-44 pts). Fall prevention measures have been instituted. Side Rails Up X 2 Frequent Obs/Assesments occuring As available Patient and Family Educated on Fall Prevention Program and strategies. Assessment: 06:42 General: Appears in no apparent distress. Behavior is calm, cooperative. Pain: as6 Complains of pain in face. Neuro: Reports dizziness. Cardiovascular: Capillary refill < 3 seconds Patient's skin is warm and dry. Respiratory: Airway is patent Trachea midline Respiratory effort is even, unlabored, Respiratory pattern is regular, symmetrical. Derm: Skin is intact. 08:06 Reassessment: Spoke with Cristy from [facility], notified of pt d/c. Stated would vg1 let staff know that pt is to be picked up at ED. Vital Signs: 06:39 BP 149 / 74; Pulse 67; Resp 18 S; Temp 97.5(O); Pulse Ox 98% on R/A; Weight 58.06 kg as6 (R); Height 5 ft. 4 in. (162.56 cm) (R); Pain 3/10; 06:39 Body Mass Index 21.97 (58.06 kg, 162.56 cm) as6 [place] Coma Score: 06:54 Eye Response: spontaneous(4). Verbal Response: oriented(5). Motor Response: obeys jr8 commands(6). Total: 15. ED Course: 06:39 Patient arrived in ED. as6 06:41 Triage completed. as6 06:41 Arm band placed on. as6 06:42 Edgar Tan PA is PHCP. 8 06:42 Kody Neely MD is Attending Physician. 8 06:44 Bryan Sales RN is Primary Nurse. as6 06:44 Bed in low position. Call light in reach. Side rails up X2. Pulse ox on. NIBP on. as6 07:00 CT Head C Spine In Process Unspecified. EDMS 08:26 No provider procedures requiring assistance completed. Patient did not have IV access vg1 during this emergency room visit. Administered Medications: No medications were administered Outcome: : Discharge ordered by . el 08:26 Discharged to home via wheelchair, with family. vg1 08:26 Condition: good 08:26 Discharge instructions given to patient, family, Instructed on discharge instructions, follow up and referral plans. Demonstrated understanding of instructions, follow-up care. :27 Patient left the ED. vg1 Signatures: Dispatcher [employer] EDMS Edgar Tan PA PA jr8 Karin Mcbride, RN RN vg1 Bryan Sales, BERYL RN as6
--- NOTE | 2021-07-16 07:27 | EDPHYS ---
Physician Documentation [facility] Name: Benito Castaneda Age: 89 yrs Sex: Male : 1930 Arrival Date: 07/16/2021 Time: 06:39 Bed 30 Private MD: ED Physician Kody Neely HPI: 07/16 06:54 This 89 yrs old Male presents to ER via EMS with complaints of Fall. jr8 06:54 Onset: The symptoms/episode began/occurred acutely, today. Associated signs and jr8 symptoms: Loss of consciousness: This patient did not experience any loss of consciousness. Pertinent positives: neck pain. Severity of symptoms: At their worst the symptoms were very mild, in the emergency department the symptoms are unchanged. The patient has not experienced similar symptoms in the past. The patient has not recently seen a physician. Patient stated that he accidently rolled out of bed landing on his face. Denies LOC. Complains of mild nose pain and right sided neck pain . 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 - Social history:: Smoking status: Patient denies any tobacco usage or history of. ROS: 06:54 Eyes: Negative for injury, pain, redness, and discharge, Cardiovascular: Negative for jr8 chest pain, palpitations, and edema, Respiratory: Negative for shortness of breath, cough, wheezing, and pleuritic chest pain, Abdomen/GI: Negative for abdominal pain, nausea, vomiting, diarrhea, and constipation, Back: Negative for injury and pain, MS/Extremity: Negative for injury and deformity, Skin: Negative for injury, rash, and discoloration, Neuro: Negative for headache, weakness, numbness, tingling, and seizure. 06:54 ENT: Negative for injury or acute deformity, epistaxis. 06:54 Neck: Positive for pain with movement, pain at rest, tenderness. Exam: 06:54 Constitutional: This is a well developed, well nourished patient who is awake, alert, jr8 and in no acute distress. Head/Face: Normocephalic, atraumatic. Eyes: Pupils equal round and reactive to light, extra-ocular motions intact. Lids and lashes normal. Conjunctiva and sclera are non-icteric and not injected. Cornea within normal limits. Periorbital areas with no swelling, redness, or edema. ENT: Nares patent. No nasal discharge, no septal abnormalities noted. Tympanic membranes are normal and external auditory canals are clear. Oropharynx with no redness, swelling, or masses, exudates, or evidence of obstruction, uvula midline. Mucous membranes moist. Cardiovascular: Regular rate and rhythm with a normal S1 and S2. No gallops, murmurs, or rubs. Normal PMI, no JVD. No pulse deficits. Respiratory: Lungs have equal breath sounds bilaterally, clear to auscultation and percussion. No rales, rhonchi or wheezes noted. No increased work of breathing, no retractions or nasal flaring. Abdomen/GI: Soft, non-tender, with normal bowel sounds. No distension or tympany. No guarding or rebound. No evidence of tenderness throughout. Back: No spinal tenderness. No costovertebral tenderness. Full range of motion. Skin: Warm, dry with normal turgor. Normal color with no rashes, no lesions, and no evidence of cellulitis. MS/ Extremity: Pulses equal, no cyanosis. Neurovascular intact. Full, normal range of motion. Neuro: Awake and alert, GCS 15, oriented to person, place, time, and situation. Cranial nerves II-XII grossly intact. Motor strength 5/5 in all extremities. Sensory grossly intact. 06:54 Neck: External neck: tenderness, that is mild, of the right trapezius, C-spine: appears grossly normal, no vertebral tenderness, no crepitus, Trachea: is midline with no obvious abnormalities, ROM/movement: pain, that is mild, with rotation to the right. Vital Signs: 06:39 BP 149 / 74; Pulse 67; Resp 18 S; Temp 97.5(O); Pulse Ox 98% on R/A; Weight 58.06 kg as6 (R); Height 5 ft. 4 in. (162.56 cm) (R); Pain 3/10; 06:39 Body Mass Index 21.97 (58.06 kg, 162.56 cm) as6 Hawa Coma Score: 06:54 Eye Response: spontaneous(4). Verbal Response: oriented(5). Motor Response: obeys jr8 commands(6). Total: 15. MDM: 06:42 Patient medically screened. jr8 07:26 Data reviewed: vital signs, nurses notes, radiologic studies, CT scan, and as a result, jr8 I will discharge patient. Data interpreted: Pulse oximetry: on room air is 98 %. Interpretation: normal. Counseling: I had a detailed discussion with the patient and/or guardian regarding: the historical points, exam findings, and any diagnostic results supporting the discharge/admit diagnosis, radiology results, the need for outpatient follow up, a family practitioner, to return to the emergency department if symptoms worsen or persist or if there are any questions or concerns that arise at home. 07/16 06:43 Order name: CT Head C Spine; Complete Time: 07:25 jr8 Administered Medications: No medications were administered Disposition Summary: 07/16/21 07:27 Discharge Ordered Location: Home jr8 Problem: new jr8 Symptoms: have improved jr8 Condition: Stable jr8 Diagnosis - Unspecified superficial injury of other part of head, initial encounter jr8 - Strain of muscle, fascia and tendon at neck level, initial encounter jr8 Followup: jr8 - With: Private Physician - When: As needed - Reason: Continuance of care, Re-evaluation by your physician Discharge Instructions: - Discharge Summary Sheet jr8 - Head Injury, Adult jr8 Forms: - Medication Reconciliation Form jr8 - Thank You Letter jr8 - Antibiotic Education jr8 - Prescription Opioid Use jr8 Signatures: Dispatcher [employer] Edgar Galeana PA PA jr8 Bryan Sales, RN RN as6
[2021-07-16 08:32] VITALS: BP 149/74; TEMP 97.5; O2SAT 98
== END 2021-07-16 08:27 | disposition home or self-care (01) ==
LOC: ER 06:37
DX: S09.90XA Unspecified injury of head, initial encounter (principal); S16.1XXA Strain of muscle, fascia and tendon at neck level, initial encounter; W06.XXXA Fall from bed, initial encounter; I10 Essential (primary) hypertension; Z86.73 Personal history of transient ischemic attack (TIA), and cerebral infarction without residual deficits; Z95.4 Presence of other heart-valve replacement; Z95.818 Presence of other cardiac implants and grafts; Z95.1 Presence of aortocoronary bypass graft; Z88.2 Allergy status to sulfonamides; Z88.8 Allergy status to other drugs, medicaments and biological substances; Z91.048 Other nonmedicinal substance allergy status
CPT/HCPCS: 70450; 72125; 99283

== ENCOUNTER 2021-07-27 13:17 | Emergency (ER) | payer OTHER, BC ==
--- OUTSIDE RECORDS SUMMARY | 2021-07-27 13:24 | XMS REPORT | Continuity of Care Document ---
:1930 Author Organization [facility] t Address [address] [place] [address] Care Team Providers Name Role Phone Asked, [...] Date Sour ce Number BCBS FED SELECT [id number] 2015 00:00:00 MEDICARE PART A \T\ B [id number] 1996 00:00:00 MEDICAREMEDICARE PART [id number] 1996 Me thodist A AND 00:00:00 Hospital [id number] [place] [place] CHOICE [id number] 2015 [facility] PPO/FEDERAL EMPL 00:00:00 Hospital [id number] 2015- PresentPPO DEPT OF [id number] Methodis t AFFAIRSDEPT OF 00:00:00 [facility] [id number] 05/2017-PresentMilita ry [facility] Federal [id number] [address] [facility] Medicare A & B [id number] [address] [facility] 00:[facility]:00 - [...] Added automatic ally from request for surgery [id number] Small Problem Active [facility] - obstructio Patien t n [facility] Nausea Problem Active [facility] Patient [facility] Hypomagnes Problem Active [facility] emia [facility] Patient [facility] Leukocytos Problem Active [facility] is [facility] Patient [facility] Hypertensi Problem Active [facility] 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 pain [facility] No known No known Disease Unive rs active active ity of problems problems [facility] Allergies, Adverse Reactions, Alerts Allergy Allergy [...] [facility] - substanc 00:00: Patient e 00 [facility] Doxazosi Allergy Active 2018-[address] [facility] [facility] to 2[facility]17 [facility] - substanc 00:00: Patient e 00 [facility] NO KNOWN Drug Active Univers ALLERGIE Class ity of S [facility] doxazosi DA Active [facility] iodine DA Active [facility] Family History Family Member Diagnosis Comments Start Date Stop Date Source Natural brother Heart disease [facility] ist [facility] Natural father Heart disease [facility] Natural father Hypertension [facility] Natural mother Alzheimer's disease [facility] sister Other [facility] Social History Social Habit Start Date Stop Date Quantity Comments Source Exposure to Not sure [facility] SARS-CoV-2 (event) [facility] History of tobacco Smoker Method ist use Hospital Cigarettes smoked 2021-02-20 2021-02-[address] current (pack per 00:00:00 00:00:00 Hospita l day) - Reported Cigarette 2021-02-20 2021-02-20 [facility] pack-years 00:00:00 00:00:00 Hospital Alcohol intake 2021-01-10 2021-01-10 Current University of 00:00:00 00:00:00 non-drinker of [facility] alcohol (finding) Branch Tobacco use and 2021-01-10 2021-01-10 Never used Universit y of exposure 00:00:00 00:00:00 [facility] Alcohol Comment 2017-12-10 2017-12-10 ocassional [facility] 00:00:00 00:00:00 Hospital Sex Assigned At [birth year] [facility] y of 00:00:00 00:00:00 [facility] Smoking Status Start Date Stop Date Source Former smoker 2021-02-20 00:00:00 2021-02-20 00:00:00 [facility] Never smoker [facility] Medications Ordered Filled Start Stop Current Ordering Indication Dosage Frequency Signature Comments Components Source Medication Medication Date Date Medication? Clinician (SIG) Name Name latonia 2020- No [id number] Q7D Take 1 M ethodi rol 02-27 [...] by mouth ity of tablet 18:08: daily. [place] [address] Medical Branch aspirin 325 0 Yes 325mg Take 325 U nivers mg tablet 7-02 mg by ity of 18:08: mouth [place] 23 daily. Medical Branch valsartan-h Yes 1{tbl} Take 1 Un alma ydrochlorot 7-02 tablet by ity of hiazide 18:08: mouth [place] 160-12.5 mg 23 daily. Medica l per tablet Branch eszopiclone Yes 3mg Take 3 mg U nivers 3 mg tablet 7-02 by mouth ity of 18:08: at [place] [address] bedtime. Medical Branch cloNIDine 0 Yes .1mg Take 0.1 Univ ers 0.1 mg 7-02 mg by ity of tablet 18:08: mouth 3 [place] [address] (three) Medical times Branch daily. apixaban Yes 2.5mg Take 2.5 Univ ers (ELIQUIS) 7-02 mg by ity of 2.5 mg 18:08: mouth 2 [place] tablet 23 (two) Medical times Branch daily. omeprazole Yes 40mg Take 40 mg U nivers 40 mg 7-02 by mouth ity of capsule 18:08: daily. [address] Branch lisinopriL Yes 5mg Take 5 mg Un alma 5 mg tablet 7-02 by mouth ity of 18:08: daily. [address] Branch finasteride Yes 5mg Take 5 mg U nivers 5 mg tablet 7-02 by mouth ity of 18:08: daily. [address] Branch amLODIPine Yes 10mg Take 10 mg U nivers 10 mg 7-02 by mouth ity of tablet 18:08: daily. [place] [address] Medical Branch aspirin 325 0 Yes 325mg Take 325 U nivers mg tablet 7-02 mg by ity of 18:08: mouth [place] 23 daily. Medical Branch valsartan-h Yes 1{tbl} Take 1 Un alma ydrochlorot 7-02 tablet by ity of hiazide 18:08: mouth [place] 160-12.5 mg 23 daily. Medica l per tablet Branch eszopiclone Yes 3mg Take 3 mg U nivers 3 mg tablet 7-02 by mouth ity of 18:08: at [place] [address] bedtime. Medical Branch cloNIDine Yes .1mg Take [...] by mouth ity of capsule 18:08: daily. [place] [address] Medical Branch lisinopriL Yes 5mg Take 5 mg Un alma 5 mg tablet 7-02 by mouth ity of 18:08: daily. [place] [address] Medical Branch finasteride Yes 5mg Take 5 mg U nivers 5 mg tablet 7-02 by mouth ity of 18:08: daily. [place] [address] Medical Branch amLODIPine Yes 10mg Take 10 mg U nivers 10 mg 7-02 by mouth ity of tablet 18:08: daily. [place] [address] Medical Branch aspirin 325 0 Yes 325mg [...] 7-02 by mouth ity of 18:08: at [place] [address] bedtime. Medical Branch cloNIDine Yes .1mg Take [...] by mouth ity of capsule 18:08: daily. [place] [address] Medical Branch lisinopriL 2020-0 Yes 5mg Take 5 mg Un alma 5 mg tablet 7-02 by mouth ity of 18:08: daily. [place] [address] Medical Branch finasteride 2020-0 Yes 5mg Take 5 mg U nivers 5 mg tablet 7-02 by mouth ity of 18:08: daily. [place] [address] Medical Branch amLODIPine 0 Yes 10mg Take 10 mg U nivers 10 mg 7-02 by mouth ity of tablet 18:08: daily. [place] [address] Medical Branch aspirin 325 2020-0 Yes 325mg [...] 7-02 by mouth ity of 18:08: at [place] 23 bedtime. Medical Branch cloNIDine 2020-0 Yes .1mg Take 0.1 Univ ers 0.1 mg 7-02 mg by ity of tablet 18:08: mouth 3 [place] 23 (three) Medical times Branch daily. apixaban 0 Yes 2.5mg Take 2.5 Univ ers (ELIQUIS) 7-02 mg by ity of 2.5 mg 18:08: mouth 2 [place] tablet 23 (two) Medical times Branch daily. omeprazole 0 Yes 40mg Take 40 mg U nivers 40 mg 7-02 by mouth ity of capsule 18:08: daily. [place] [address] Medical Branch lisinopriL 2020-0 Yes 5mg Take 5 mg Un lama 5 mg tablet 7-02 by mouth ity of 18:08: daily. [place] [address] Medical Branch finasteride 2020-0 Yes 5mg Take 5 mg U nivers 5 mg tablet 7-02 by mouth ity of 18:08: daily. [place] [address] Medical Branch amLODIPine 0 Yes 10mg Take 10 mg U nivers 10 mg 7-02 by mouth ity of tablet 18:08: daily. [place] [address] Medical Branch aspirin 325 0 Yes 325mg [...] 7-02 by mouth ity of 18:08: at [place] [address] bedtime. Medical Branch cloNIDine 0 Yes .1mg Take 0.1 Univ ers 0.1 mg 7-02 mg by ity of tablet 18:08: mouth 3 [place] [address] (three) Medical times Branch daily. apixaban Yes 2.5mg Take 2.5 Univ ers (ELIQUIS) 7-02 mg by ity of 2.5 mg 18:08: mouth 2 [place] tablet 23 (two) Medical times Branch daily. omeprazole Yes 40mg Take 40 mg U nivers 40 mg 7-02 by mouth ity of capsule 18:08: daily. [place] [address] Medical Branch lisinopriL 0 Yes 5mg Take 5 mg Un alma 5 mg tablet 7-02 by mouth ity of 18:08: daily. [place] [address] Medical Branch finasteride Yes 5mg Take 5 mg U nivers 5 mg tablet 7-02 by mouth ity of 18:08: daily. [place] [address] Medical Branch amLODIPine Yes 10mg Take 10 mg U nivers 10 mg 7-02 by mouth ity of tablet 18:08: daily. [place] [address] Medical Branch aspirin 325 0 Yes 325mg Take 325 U nivers mg tablet 7-02 mg by ity of 18:08: mouth [place] 23 daily. Medical Branch valsartan-h Yes 1{tbl} Take 1 Un alma ydrochlorot 7-02 tablet by ity of hiazide 18:08: mouth [place] 160-12.5 mg 23 daily. Medica l per tablet Branch eszopiclone Yes 3mg Take 3 mg U nivers 3 mg tablet 7-02 by mouth ity of 18:08: at [place] [address] bedtime. Medical Branch cloNIDine Yes .1mg Take [...] by mouth ity of capsule 18:08: daily. [place] [address] Medical Branch lisinopriL Yes 5mg Take 5 mg Un alma 5 mg tablet 7-02 by mouth ity of 18:08: daily. [place] [address] Medical Branch finasteride Yes 5mg Take 5 mg U nivers 5 mg tablet 7-02 by mouth ity of 18:08: daily. [place] [address] Medical Branch amLODIPine Yes 10mg Take 10 mg U nivers 10 mg 7-02 by mouth ity of tablet 18:08: daily. [place] [address] Medical Branch aspirin 325 0 Yes 325mg [...] 7-02 by mouth ity of 18:08: at [place] [address] bedtime. Medical Branch cloNIDine Yes .1mg Take [...] by mouth ity of capsule 18:08: daily. [place] [address] Medical Branch lisinopriL 2020-0 Yes 5mg Take 5 mg Un alma 5 mg tablet 7-02 by mouth ity of 18:08: daily. [place] [address] Medical Branch finasteride 2020-0 Yes 5mg Take 5 mg U nivers 5 mg tablet 7-02 by mouth ity of 18:08: daily. [place] [address] Medical Branch amLODIPine 0 Yes 10mg Take 10 mg U nivers 10 mg 7-02 by mouth ity of tablet 18:08: daily. [place] [address] Medical Branch aspirin 325 2020-0 Yes 325mg [...] 7-02 by mouth ity of 18:08: at [place] 23 bedtime. Medical Branch cloNIDine 2020-0 Yes .1mg Take 0.1 Univ ers 0.1 mg 7-02 mg by ity of tablet 18:08: mouth 3 [place] 23 (three) Medical times Branch daily. apixaban 0 Yes 2.5mg Take 2.5 Univ ers (ELIQUIS) 7-02 mg by ity of 2.5 mg 18:08: mouth 2 [place] tablet 23 (two) Medical times Branch daily. omeprazole 0 Yes 40mg Take 40 mg U nivers 40 mg 7-02 by mouth ity of capsule 18:08: daily. [place] [address] Medical Branch lisinopriL 2020-0 Yes 5mg Take 5 mg Un alma 5 mg tablet 7-02 by mouth ity of 18:08: daily. [place] [address] Medical Branch finasteride 2020-0 Yes 5mg Take 5 mg U nivers 5 mg tablet 7-02 by mouth ity of 18:08: daily. [address] Dutasteride Yes Take by Un alma -Tamsulosin 12-29 mouth. ity of 0.5-0.4 mg 18:08: [address] Dutasteride Yes Take by Un alma -Tamsulosin 12-29 mouth. ity of 0.5-0.4 mg 18:08: [address] Dutasteride Yes Take by Un alma -Tamsulosin 12-29 mouth. ity of 0.5-0.4 mg 18:08: [address] Branch Dutasteride Yes Take by Un alma -Tamsulosin 12-29 mouth. ity of 0.5-0.4 mg 18:08: [address] Dutasteride Yes Take by Un alma -Tamsulosin 12-29 mouth. ity of 0.5-0.4 mg 18:08: [address] Dutasteride Yes Take by Un alma -Tamsulosin 12-29 mouth. ity of 0.5-0.4 mg 18:08: [address] Branch Dutasteride Yes Take by Un alma -Tamsulosin 12-29 mouth. ity of 0.5-0.4 mg 18:08: [address] Dutasteride Yes Take by Un alma -Tamsulosin 12-29 mouth. ity of 0.5-0.4 mg 18:08: [address] tamsulosin 2020- No .4mg QD Take [...] daily for 4 days. traMADoL 2020- [place] [id number] 50mg Q6H Take 50 mg M ethodi [...] by mouth ity of tablet 18:24: daily. [place] [address] Medical Branch aspirin 325 Yes 325mg Take [...] by mouth ity of tablet 18:24: daily. [place] 36 Medical Branch aspirin 325 Yes 325mg [...] 81 Mg Patient TABLET.DR SHIPLEY.DR lino Medical [place] Hydrochloro Hydrochloro Yes 12.[address] thiazide thiazide [facility] - (Hydrochlor (Hydrochlor P atient othiazide*) othiazide*) s 25 Mg 25 Mg Medical TABLET TABLET Center Tamsulosin Tamsulosin Yes .[address] Hcl Hcl [facility] - (Flomax*) (Flomax*) Patie nt 0.4 Mg CAP 0.4 Mg CAP Medical [facility] Vital Signs Vital Name Observation Time Observation Value Comments Source Systolic blood 2021-01-16 07:00:00 187 mm[Hg] Univer sity of pressure [facility] Diastolic blood 2021-01-16 07:00:00 90 mm[Hg] [facility] [place] Heart rate 2021-01-16 07:00:00 76 /min [facility] Respiratory rate 2021-01-16 07:00:00 20 /min [facility] Oxygen saturation in 2021-01-16 07:00:00 97 /min [facility] Arterial blood by [facility] Pulse oximetry Branch Body temperature 2021-01-16 04:24:00 37.06 Ayana [facility] Body weight 2021-01-16 04:24:00 58.968 kg [facility] BMI 2021-01-16 04:24:00 22.31 kg/m2 [facility] [place] [facility] Systolic blood 2021-01-11 02:55:00 175 mm[Hg] Univer sity of pressure [place] [facility] Diastolic blood 2021-01-11 02:55:00 85 mm[Hg] Unive rsity of pressure [place] [facility] Heart rate 2021-01-11 02:55:00 73 /min [facility] [place] [facility] Respiratory rate 2021-01-11 02:55:00 16 /min Univ ersity [facility] [place] [facility] Oxygen saturation in 2021-01-11 02:55:00 96 /min [facility] of Arterial blood by [place] [facility] Pulse oximetry Branch Body temperature 2021-01-10 23:48:00 37.22 Ayana [facility] ers[facility] [place] [facility] Body weight 2021-01-10 23:48:00 58.968 kg [facility] [place] [facility] BMI 2021-01-10 23:48:00 22.31 kg/m2 [facility] [place] [facility] Systolic blood 2020-12-29 18:08:00 132 mm[Hg] Univer sity of pressure [place] [facility] Diastolic blood 2020-12-29 18:08:00 65 mm[Hg] Unive rsity of pressure [place] [facility] Heart rate 2020-12-29 18:03:00 65 /min [facility] [place] [facility] Body temperature 2020-12-29 18:03:00 36.44 Ayana [facility] [place] [facility] Respiratory rate 2020-12-29 18:03:00 16 /min Univ ersity [facility] [place] [facility] Body height 2020-12-29 18:03:00 162.6 cm [facility] [place] [facility] Body weight 2020-12-29 18:03:00 59.013 kg [facility] [place] [facility] BMI 2020-12-29 18:03:00 22.33 kg/m2 [facility] [place] [facility] Oxygen saturation in 2020-12-29 18:03:00 98 /min University of Arterial blood by [place] [facility] Pulse oximetry Branch Systolic blood 2020-12-29 18:08:00 132 mm[Hg] Univer sity of pressure [place] [facility] Diastolic blood 2020-12-29 18:08:00 65 mm[Hg] Unive rsity of pressure [place] [facility] Heart rate 2020-12-29 18:03:00 65 /min [facility] Body temperature 2020-12-29 18:03:00 36.44 Ayana [facility] Respiratory rate 2020-12-29 18:03:00 16 /min [facility] Body height 2020-12-29 18:03:00 162.6 cm [facility] Body weight 2020-12-29 18:03:00 59.013 kg [facility] BMI 2020-12-29 18:03:00 22.33 kg/m2 [facility] Oxygen saturation in 2020-12-29 18:03:00 98 /min [facility] Arterial blood by [facility] Pulse oximetry [place] Heart rate 2021-02-23 17:45:00 55 /min [facility] Respiratory rate 2021-02-23 17:45:00 20 /min [facility] Oxygen saturation in 2021-02-23 17:45:00 99 /min [facility] Arterial blood by Pulse oximetry Systolic blood 2021-02-23 16:34:54 158 mm[Hg] [facility] pressure Diastolic blood 2021-02-23 16:34:54 75 mm[Hg] [facility] pressure Body temperature 2021-02-23 16:34:54 36.61 Ayana [facility] Body weight 2021-02-21 10:06:00 59.467 kg [facility] BMI 2021-02-21 10:06:00 22.50 kg/m2 [facility] Body height 2021-02-20 11:07:00 162.6 cm [facility] BP Diastolic 2020-09-28 12:46:00 76 mm[Hg] [facility] BP Systolic 2020-09-28 12:46:00 149 mm[Hg] [facility] Center Oxygen saturation by 2020-09-28 12:46:00 99 /min [facility] - Pulse oximetry Patients [facility] Heart Rate 2020-09-28 12:46:00 85 /min [facility] Respiratory rate 2020-09-28 12:46:00 22 /min [facility] Body Temperature 2020-09-28 12:46:00 97.7 [degF] [facility] Heart Rate 2020-09-28 08:42:00 81 /min [facility] Respiratory rate 2020-09-28 08:42:00 24 /min [facility] Body Temperature 2020-09-28 08:42:00 97.4 [degF] [facility] BP Diastolic 2020-09-28 08:42:00 60 mm[Hg] [facility] BP Systolic 2020-09-28 08:42:00 141 mm[Hg] [facility] Oxygen saturation by 2020-09-28 08:42:00 96 /min [facility] - Pulse oximetry Patients [facility] BP Diastolic 2020-09-28 08:36:00 60 mm[Hg] [facility] BP Systolic 2020-09-28 08:36:00 141 mm[Hg] [facility] Oxygen saturation by 2020-09-28 08:36:00 96 /min [facility] - Pulse oximetry Patients [facility] Heart Rate 2020-09-28 08:36:00 81 /min [facility] Respiratory rate 2020-09-28 08:36:00 24 /min [facility] Body Temperature 2020-09-28 08:36:00 97.4 [degF] [facility] Oxygen saturation by 2020-09-28 08:17:00 96 /min [facility] - Pulse oximetry Patients [facility] Heart Rate 2020-09-28 08:17:00 80 /min [facility] Respiratory rate 2020-09-28 08:17:00 20 /min [facility] Oxygen saturation by 2020-09-28 07:49:00 96 /min [facility] - Pulse oximetry Patients [facility] Heart Rate 2020-09-28 07:49:00 80 /min [...] [facility] - Pulse oximetry Patients [facility] Heart Rate 2020-09-28 04:00:00 85 /min [facility] Med[facility] Respiratory rate 2020-09-28 04:00:00 20 /min [facility] - Patients Medica l [place] Body Temperature 2020-09-28 04:00:00 97.7 [degF] [facility] Oxygen saturation by 2020-09-28 02:48:00 98 /min [facility] - Pulse oximetry Patients [facility] Heart Rate 2020-09-28 02:48:00 85 /min [facility] Respiratory rate 2020-09-28 02:48:00 18 /min [facility] Oxygen saturation by 2020-09-28 02:40:00 95 /min [facility] - Pulse oximetry Patients [facility] Heart Rate 2020-09-28 02:40:00 87 /min [...] [facility] - Pulse oximetry Patients [facility] Heart Rate 2020-09-28 00:00:00 92 /min [...] [facility] - Pulse oximetry Patients [facility] Heart Rate 2020-09-27 20:00:00 99 /min [facility] Respiratory rate 2020-09-27 20:00:00 18 /min [facility] Body Temperature 2020-09-27 20:00:00 98.1 [degF] [facility] Center Oxygen saturation by 2020-09-27 19:53:00 100 /min [facility] - Pulse oximetry Patients [facility] Heart Rate 2020-09-27 19:53:00 96 /min [facility] Respiratory rate 2020-09-27 19:53:00 18 /min [facility] Oxygen saturation by 2020-09-27 19:45:00 97 /min [facility] - Pulse oximetry Patients [facility] Heart Rate 2020-09-27 19:45:00 99 /min [...] [facility] - Pulse oximetry Patients [facility] Heart Rate 2020-09-27 15:21:00 103 /min [facility] Respiratory rate 2020-09-27 15:21:00 20 /min [facility] Body Temperature 2020-09-27 15:21:00 98.5 [degF] [facility] Oxygen saturation by 2020-09-27 14:45:00 99 /min [facility] - Pulse oximetry Patients [facility] Heart Rate 2020-09-27 14:45:00 103 /min [facility] Respiratory rate 2020-09-27 14:45:00 20 /min [facility] Oxygen saturation by 2020-09-27 14:30:00 95 /min [facility] - Pulse oximetry Patients [facility] Heart Rate 2020-09-27 14:30:00 103 /min [facility] Respiratory rate 2020-09-27 14:30:00 20 /min [facility] BP Diastolic 2020-09-27 11:13:00 56 mm[Hg] [facility] BP Systolic 2020-09-27 11:13:00 123 mm[Hg] [facility] Oxygen saturation by 2020-09-27 11:13:00 99 /min [facility] - Pulse oximetry Patients [facility] Heart Rate 2020-09-27 11:13:00 88 /min [...] [facility] - Pulse oximetry Patients [facility] Heart Rate 2020-09-27 08:15:00 105 /min [...] [facility] - Pulse oximetry Patients [facility] Heart Rate 2020-09-27 07:58:00 105 /min [facility] Respiratory rate 2020-09-27 07:58:00 16 /min [facility] Body Temperature 2020-09-27 07:58:00 97.6 [degF] [facility] Oxygen saturation by 2020-09-27 07:15:00 99 /min [facility] - Pulse oximetry Patients [facility] Heart Rate 2020-09-27 07:15:00 105 /min [facility] Respiratory rate 2020-09-27 07:15:00 16 /min [facility] Oxygen saturation by 2020-09-27 07:00:00 95 /min [facility] - Pulse oximetry Patients [facility] Heart Rate 2020-09-27 07:00:00 105 /min [facility] Respiratory rate 2020-09-27 07:00:00 16 /min [facility] Oxygen saturation by 2020-09-27 00:05:00 100 /min [facility] - Pulse oximetry Patients [facility] Heart Rate 2020-09-27 00:05:00 91 /min [facility] Respiratory rate 2020-09-27 00:05:00 20 /min [facility] Oxygen saturation by 2020-09-26 23:50:00 98 /min [facility] - Pulse oximetry Patients [facility] Heart Rate 2020-09-26 23:50:00 89 /min [facility] Respiratory rate 2020-09-26 23:50:00 20 /min [facility] BP Diastolic 2020-09-26 20:36:00 69 mm[Hg] [facility] BP Systolic 2020-09-26 20:36:00 114 mm[Hg] [facility] Oxygen saturation by 2020-09-26 20:36:00 98 /min [facility] - Pulse oximetry Patients [facility] Heart Rate 2020-09-26 20:36:00 84 /min [facility] Respiratory rate 2020-09-26 20:36:00 18 /min [facility] Body Temperature 2020-09-26 20:36:00 98.1 [degF] [facility] BP Diastolic 2020-09-26 20:00:00 80 mm[Hg] [facility] BP Systolic 2020-09-26 20:00:00 142 mm[Hg] [facility] Oxygen saturation by 2020-09-26 20:00:00 100 /min [facility] - Pulse oximetry Patients [facility] Heart Rate 2020-09-26 20:00:00 89 /min [...] [facility] - Pulse oximetry Patients [facility] Heart Rate 2020-09-26 16:11:00 89 /min [facility] - Patients [facility] 2020-09-26 16:11:00 21 /min [facility] Body Temperature 2020-09-26 16:11:00 98.3 [degF] [facility] Oxygen saturation by 2020-09-26 13:10:00 96 /min [facility] Heart Rate 2020-09-26 13:10:00 94 /min [facility] Respiratory rate 2020-09-26 13:10:00 16 /min [facility] Oxygen saturation by 2020-09-26 12:55:00 96 /min [facility] Heart Rate 2020-09-26 12:55:00 94 /min [facility] Respiratory rate 2020-09-26 12:55:00 16 /min [facility] Oxygen saturation by 2020-09-26 12:35:00 96 /min [facility] Heart Rate 2020-09-26 12:35:00 94 /min [facility] Respiratory rate 2020-09-26 12:35:00 16 /min [facility] BP Diastolic 2020-09-26 12:12:00 66 mm[Hg] [facility] BP Systolic 2020-09-26 12:12:00 113 mm[Hg] [facility] Oxygen saturation by 2020-09-26 12:12:00 98 /min [facility] Heart Rate 2020-09-26 12:12:00 100 /min [...] [facility] Heart Rate 2020-09-26 09:22:00 99 /min [facility] Respiratory rate 2020-09-26 09:22:00 26 /min [facility] Body Temperature 2020-09-26 09:22:00 97.4 [degF] [facility] Oxygen saturation by 2020-09-26 08:50:00 98 /min [facility] Heart Rate 2020-09-26 08:50:00 99 /min [facility] Respiratory rate 2020-09-26 08:50:00 26 /min [facility] Oxygen saturation by 2020-09-26 08:35:00 98 /min [facility] Heart Rate 2020-09-26 08:35:00 99 /min [...] [facility] Heart Rate 2020-09-26 07:58:00 99 /min [...] [facility] Heart Rate 2020-09-26 04:00:00 99 /min [facility] Respiratory rate 2020-09-26 04:00:00 20 /min [facility] Body Temperature 2020-09-26 04:00:00 97.0 [degF] [facility] Oxygen saturation by 2020-09-25 20:08:00 100 /min [facility] Heart Rate 2020-09-25 20:08:00 97 /min [...] [facility] Heart Rate 2020-09-25 20:00:00 99 /min [facility] Respiratory rate 2020-09-25 20:00:00 18 /min [facility] Body Temperature 2020-09-25 20:00:00 97.9 [degF] [facility] Oxygen saturation by 2020-09-25 19:53:00 97 /min [facility] Heart Rate 2020-09-25 19:53:00 94 /min [...] [facility] Heart Rate 2020-09-25 15:48:00 99 /min [facility] Respiratory rate 2020-09-25 15:48:00 18 /min [facility] Body Temperature 2020-09-25 15:48:00 98.0 [degF] [facility] Oxygen saturation by 2020-09-25 12:40:00 97 /min [facility] Heart Rate 2020-09-25 12:40:00 109 /min [facility] Respiratory rate 2020-09-25 12:40:00 16 /min [facility] Oxygen saturation by 2020-09-25 12:39:00 97 /min [facility] Heart Rate 2020-09-25 12:39:00 98 /min [facility] Respiratory rate 2020-09-25 12:39:00 22 /min [facility] BP Diastolic 2020-09-25 11:14:00 72 mm[Hg] [facility] BP Systolic 2020-09-25 11:14:00 98 mm[Hg] [facility] Oxygen saturation by 2020-09-25 11:14:00 100 /min [facility] Heart Rate 2020-09-25 11:14:00 98 /min [facility] Respiratory rate 2020-09-25 11:14:00 22 /min [facility] Body Temperature 2020-09-25 11:14:00 97.8 [degF] [facility] BP Diastolic 2020-09-25 09:18:00 62 mm[Hg] [facility] BP Systolic 2020-09-25 09:18:00 135 mm[Hg] [facility] Oxygen saturation by 2020-09-25 09:18:00 98 /min [facility] Heart Rate 2020-09-25 09:18:00 96 /min [facility] Respiratory rate 2020-09-25 09:18:00 18 /min [facility] Body Temperature 2020-09-25 09:18:00 97.9 [degF] [facility] Oxygen saturation by 2020-09-25 08:35:00 98 /min [facility] Heart Rate 2020-09-25 08:35:00 96 /min [facility] Respiratory rate 2020-09-25 08:35:00 18 /min [facility] Oxygen saturation by 2020-09-25 08:20:00 98 /min [facility] Heart Rate 2020-09-25 08:20:00 96 /min [facility] Respiratory rate 2020-09-25 08:20:00 18 /min [facility] BP Diastolic 2020-09-25 07:33:00 62 mm[Hg] [facility] BP Systolic 2020-09-25 07:33:00 135 mm[Hg] [facility] Oxygen saturation by 2020-09-25 07:33:00 98 /min [facility] Heart Rate 2020-09-25 07:33:00 96 /min [facility] Respiratory rate 2020-09-25 07:33:00 18 /min [facility] Body Temperature 2020-09-25 07:33:00 97.9 [degF] [facility] BP Diastolic 2020-09-25 04:00:00 69 mm[Hg] [facility] BP Systolic 2020-09-25 04:00:00 121 mm[Hg] [facility] Oxygen saturation by 2020-09-25 04:00:00 97 /min [facility] Heart Rate 2020-09-25 04:00:00 83 /min [facility] Respiratory rate 2020-09-25 04:00:00 18 /min [facility] Body Temperature 2020-09-25 04:00:00 97.7 [degF] [facility] BP Diastolic 2020-09-24 23:59:00 94 mm[Hg] [facility] BP Systolic 2020-09-24 23:59:00 151 mm[Hg] [facility] Oxygen saturation by 2020-09-24 23:59:00 99 /min [facility] Heart Rate 2020-09-24 23:59:00 97 /min [...] [facility] Heart Rate 2020-09-24 20:32:00 112 /min [facility] Respiratory rate 2020-09-24 20:32:00 18 /min [facility] Body Temperature 2020-09-24 20:32:00 97.7 [degF] [facility] Oxygen saturation by 2020-09-24 20:25:00 98 /min [facility] Heart Rate 2020-09-24 20:25:00 100 /min [facility] Respiratory rate 2020-09-24 20:25:00 20 /min [facility] Oxygen saturation by 2020-09-24 20:10:00 95 /min [facility] Heart Rate 2020-09-24 20:10:00 102 /min [facility] Respiratory rate 2020-09-24 20:10:00 20 /min [facility] BP Diastolic 2020-09-24 20:00:00 92 mm[Hg] [facility] BP Systolic 2020-09-24 20:00:00 165 mm[Hg] [facility] Oxygen saturation by 2020-09-24 20:00:00 94 /min [facility] Heart Rate 2020-09-24 20:00:00 112 /min [...] [facility] Heart Rate 2020-09-24 17:13:00 94 /min [facility] Respiratory rate 2020-09-24 17:13:00 16 /min [facility] Body Temperature 2020-09-24 17:13:00 97.7 [degF] [facility] Oxygen saturation by 2020-09-24 14:00:00 100 /min [facility] Heart Rate 2020-09-24 14:00:00 94 /min [facility] Respiratory rate 2020-09-24 14:00:00 16 /min [facility] Oxygen saturation by 2020-09-24 13:45:00 100 /min [facility] Heart Rate 2020-09-24 13:45:00 94 /min [...] [facility] Heart Rate 2020-09-24 08:41:00 94 /min [...] [facility] Heart Rate 2020-09-24 08:30:00 94 /min [facility] Oxygen saturation by 2020-09-24 06:50:00 100 /min [facility] Heart Rate 2020-09-24 06:50:00 91 /min [facility] Respiratory rate 2020-09-24 06:50:00 16 /min [facility] Oxygen saturation by 2020-09-24 06:35:00 97 /min [facility] Heart Rate 2020-09-24 06:35:00 87 /min [facility] Respiratory rate 2020-09-24 06:35:00 16 /min [facility] BP Diastolic 2020-09-24 04:00:00 64 mm[Hg] [facility] BP Systolic 2020-09-24 04:00:00 137 mm[Hg] [facility] Oxygen saturation by 2020-09-24 04:00:00 96 /min [facility] Heart Rate 2020-09-24 04:00:00 88 /min [facility] Respiratory rate 2020-09-24 04:00:00 18 /min [facility] Body Temperature 2020-09-24 04:00:00 97.7 [degF] [facility] Oxygen saturation by 2020-09-24 01:18:00 97 /min [facility] Heart Rate 2020-09-24 01:18:00 91 /min [facility] Respiratory rate 2020-09-24 01:18:00 18 /min [facility] Oxygen saturation by 2020-09-24 01:10:00 94 /min [facility] Heart Rate 2020-09-24 01:10:00 89 /min [...] [facility] Heart Rate 2020-09-24 00:00:00 92 /min [...] [facility] Heart Rate 2020-09-23 21:42:00 105 /min [...] [facility] Heart Rate 2020-09-23 20:00:00 105 /min [facility] Respiratory rate 2020-09-23 20:00:00 18 /min [facility] Body Temperature 2020-09-23 20:00:00 97.9 [degF] [facility] Oxygen saturation by 2020-09-23 19:18:00 99 /min [facility] Heart Rate 2020-09-23 19:18:00 101 /min [facility] Respiratory rate 2020-09-23 19:18:00 22 /min [facility] Oxygen saturation by 2020-09-23 19:10:00 94 /min [facility] Heart Rate 2020-09-23 19:10:00 98 /min [...] [facility] Heart Rate 2020-09-23 16:11:00 96 /min [facility] Respiratory rate 2020-09-23 16:11:00 18 /min [facility] Body Temperature 2020-09-23 16:11:00 97.8 [degF] [facility] Oxygen saturation by 2020-09-23 14:15:00 98 /min [facility] Heart Rate 2020-09-23 14:15:00 83 /min [facility] Respiratory rate 2020-09-23 14:15:00 20 /min [facility] Oxygen saturation by 2020-09-23 14:00:00 98 /min [facility] Heart Rate 2020-09-23 14:00:00 83 /min [facility] Respiratory rate 2020-09-23 14:00:00 20 /min [facility] BP Diastolic 2020-09-23 08:50:00 63 mm[Hg] [facility] BP Systolic 2020-09-23 08:50:00 142 mm[Hg] [facility] Oxygen saturation by 2020-09-23 08:50:00 98 /min [facility] Heart Rate 2020-09-23 08:50:00 94 /min [facility] Respiratory rate 2020-09-23 08:50:00 18 /min [facility] Body Temperature 2020-09-23 08:50:00 97.3 [degF] [facility] BP Diastolic 2020-09-23 08:39:00 63 mm[Hg] [facility] BP Systolic 2020-09-23 08:39:00 142 mm[Hg] [facility] Oxygen saturation by 2020-09-23 08:39:00 100 /min [facility] Heart Rate 2020-09-23 08:39:00 94 /min [facility] Respiratory rate 2020-09-23 08:39:00 18 /min [facility] Body Temperature 2020-09-23 08:39:00 97.4 [degF] [facility] Oxygen saturation by 2020-09-23 06:45:00 100 /min [facility] Heart Rate 2020-09-23 06:45:00 94 /min [facility] Respiratory rate 2020-09-23 06:45:00 18 /min [facility] Oxygen saturation by 2020-09-23 06:30:00 100 /min [facility] Heart Rate 2020-09-23 06:30:00 94 /min [facility] Respiratory rate 2020-09-23 06:30:00 18 /min [facility] BP Diastolic 2020-09-23 04:30:00 75 mm[Hg] [facility] BP Systolic 2020-09-23 04:30:00 168 mm[Hg] [facility] Oxygen saturation by 2020-09-23 04:30:00 98 /min [facility] Heart Rate 2020-09-23 04:30:00 87 /min [facility] Respiratory rate 2020-09-23 04:30:00 18 /min [facility] Body Temperature 2020-09-23 04:30:00 97.6 [degF] [facility] Oxygen saturation by 2020-09-23 00:40:00 94 /min [facility] Heart Rate 2020-09-23 00:40:00 81 /min [...] [facility] Heart Rate 2020-09-23 00:23:00 81 /min [...] [facility] Heart Rate 2020-09-22 20:04:00 95 /min [facility] Respiratory rate 2020-09-22 20:04:00 18 /min [facility] Body Temperature 2020-09-22 20:04:00 97.6 [degF] [facility] Oxygen saturation by 2020-09-22 20:02:00 98 /min [facility] Heart Rate 2020-09-22 20:02:00 94 /min [facility] Respiratory rate 2020-09-22 20:02:00 20 /min [facility] Oxygen saturation by 2020-09-22 19:47:00 96 /min [facility] Heart Rate 2020-09-22 19:47:00 95 /min [facility] Respiratory rate 2020-09-22 19:47:00 20 /min [facility] Oxygen saturation by 2020-09-22 15:48:00 100 /min [facility] Heart Rate 2020-09-22 15:48:00 89 /min [facility] Respiratory rate 2020-09-22 15:48:00 24 /min [facility] BP Diastolic 2020-09-22 15:40:00 57 mm[Hg] [facility] BP Systolic 2020-09-22 15:40:00 143 mm[Hg] [facility] Oxygen saturation by 2020-09-22 15:40:00 98 /min [facility] Heart Rate 2020-09-22 15:40:00 90 /min [facility] Respiratory rate 2020-09-22 15:40:00 22 /min [facility] Body Temperature 2020-09-22 15:40:00 97.6 [degF] [facility] Oxygen saturation by 2020-09-22 15:33:00 96 /min [facility] Heart Rate 2020-09-22 15:33:00 88 /min [facility] Respiratory rate 2020-09-22 15:33:00 24 /min [facility] BP Diastolic 2020-09-22 11:44:00 65 mm[Hg] [facility] BP Systolic 2020-09-22 11:44:00 165 mm[Hg] [facility] Oxygen saturation by 2020-09-22 11:44:00 100 /min [facility] Heart Rate 2020-09-22 11:44:00 81 /min [facility] Respiratory rate 2020-09-22 11:44:00 23 /min [facility] Body Temperature 2020-09-22 11:44:00 97.9 [degF] [facility] Oxygen saturation by 2020-09-22 11:25:00 100 /min [facility] Heart Rate 2020-09-22 11:25:00 88 /min [facility] Oxygen saturation by 2020-09-22 11:10:00 96 /min [facility] Heart Rate 2020-09-22 11:10:00 84 /min [...] [facility] Heart Rate 2020-09-22 09:27:00 84 /min [...] [facility] Heart Rate 2020-09-22 08:00:00 84 /min [facility] Respiratory rate 2020-09-22 08:00:00 22 /min [facility] Body Temperature 2020-09-22 08:00:00 98.0 [degF] [facility] BP Diastolic 2020-09-22 03:50:00 72 mm[Hg] [facility] BP Systolic 2020-09-22 03:50:00 144 mm[Hg] [facility] Oxygen saturation by 2020-09-22 03:50:00 97 /min [facility] Heart Rate 2020-09-22 03:50:00 93 /min [facility] Respiratory rate 2020-09-22 03:50:00 24 /min [facility] Body Temperature 2020-09-22 03:50:00 97.9 [degF] [facility] Oxygen saturation by 2020-09-22 02:17:00 100 /min [facility] Heart Rate 2020-09-22 02:17:00 92 /min [facility] Respiratory rate 2020-09-22 02:17:00 20 /min [facility] Oxygen saturation by 2020-09-22 02:02:00 100 /min [facility] Heart Rate 2020-09-22 02:02:00 88 /min [facility] Respiratory rate 2020-09-22 02:02:00 20 /min [facility] BP Diastolic 2020-09-22 00:02:00 64 mm[Hg] [facility] BP Systolic 2020-09-22 00:02:00 139 mm[Hg] [facility] Oxygen saturation by 2020-09-22 00:02:00 100 /min [facility] Heart Rate 2020-09-22 00:02:00 72 /min [facility] Respiratory rate 2020-09-22 00:02:00 20 /min [facility] Body Temperature 2020-09-22 00:02:00 98.4 [degF] [facility] BP Diastolic 2020-09-21 20:07:00 72 mm[Hg] [facility] BP Systolic 2020-09-21 20:07:00 147 mm[Hg] [facility] Oxygen saturation by 2020-09-21 20:07:00 96 /min [facility] Heart Rate 2020-09-21 20:07:00 84 /min [facility] Respiratory rate 2020-09-21 20:07:00 24 /min [facility] Body Temperature 2020-09-21 20:07:00 98.6 [degF] [facility] Oxygen saturation by 2020-09-21 20:02:00 97 /min [facility] Heart Rate 2020-09-21 20:02:00 80 /min [facility] Respiratory rate 2020-09-21 20:02:00 18 /min [facility] BP Diastolic 2020-09-21 20:00:00 96 mm[Hg] [facility] BP Systolic 2020-09-21 20:00:00 135 mm[Hg] [facility] Oxygen saturation by 2020-09-21 20:00:00 95 /min [facility] Heart Rate 2020-09-21 20:00:00 78 /min [facility] Respiratory rate 2020-09-21 20:00:00 18 /min [facility] Body Temperature 2020-09-21 20:00:00 98.4 [degF] [facility] BP Diastolic 2020-09-21 16:00:00 96 mm[Hg] [facility] BP Systolic 2020-09-21 16:00:00 135 mm[Hg] [facility] Oxygen saturation by 2020-09-21 16:00:00 95 /min [facility] Heart Rate 2020-09-21 16:00:00 78 /min [...] [facility] Heart Rate 2020-09-21 13:02:00 70 /min [facility] Respiratory rate 2020-09-21 13:02:00 18 /min [facility] Body Temperature 2020-09-21 13:02:00 98.3 [degF] [facility] Oxygen saturation by 2020-09-21 10:15:00 96 /min [facility] Heart Rate 2020-09-21 10:15:00 72 /min [facility] Respiratory rate 2020-09-21 10:15:00 18 /min [facility] BP Diastolic 2020-09-21 09:08:00 63 mm[Hg] [facility] BP Systolic 2020-09-21 09:08:00 150 mm[Hg] [facility] Oxygen saturation by 2020-09-21 09:08:00 95 /min [facility] Heart Rate 2020-09-21 09:08:00 63 /min [...] [facility] Heart Rate 2020-09-21 08:58:00 63 /min [facility] Respiratory rate 2020-09-21 08:58:00 17 /min [facility] Body Temperature 2020-09-21 08:58:00 98.0 [degF] [facility] BP Diastolic 2020-09-21 07:38:00 63 mm[Hg] [facility] BP Systolic 2020-09-21 07:38:00 150 mm[Hg] [facility] Oxygen saturation by 2020-09-21 07:38:00 95 /min [facility] Heart Rate 2020-09-21 07:38:00 63 /min [...] [facility] Heart Rate 2020-09-21 04:00:00 73 /min [...] [facility] Heart Rate 2020-09-21 00:00:00 76 /min [facility] Respiratory rate 2020-09-21 00:00:00 21 /min [facility] Body Temperature 2020-09-21 00:00:00 98.2 [degF] [facility] BP Diastolic 2020-09-20 20:00:00 69 mm[Hg] [facility] BP Systolic 2020-09-20 20:00:00 155 mm[Hg] [facility] Oxygen saturation by 2020-09-20 20:00:00 94 /min [facility] Heart Rate 2020-09-20 20:00:00 72 /min [facility] Respiratory rate 2020-09-20 20:00:00 20 /min [facility] Body Temperature 2020-09-20 20:00:00 98.1 [degF] [facility] Oxygen saturation by 2020-09-20 19:53:00 99 /min [facility] Heart Rate 2020-09-20 19:53:00 72 /min [facility] Respiratory rate 2020-09-20 19:53:00 16 /min [facility] Oxygen saturation by 2020-09-20 19:45:00 96 /min [facility] Heart Rate 2020-09-20 19:45:00 75 /min [facility] Respiratory rate 2020-09-20 19:45:00 18 /min [facility] BP Diastolic 2020-09-20 16:36:00 69 mm[Hg] [facility] BP Systolic 2020-09-20 16:36:00 155 mm[Hg] [facility] Oxygen saturation by 2020-09-20 16:36:00 97 /min [facility] Heart Rate 2020-09-20 16:36:00 73 /min [facility] Respiratory rate 2020-09-20 16:36:00 21 /min [facility] Body Temperature 2020-09-20 16:36:00 98.3 [degF] [facility] BP Diastolic 2020-09-20 15:47:00 60 mm[Hg] [facility] BP Systolic 2020-09-20 15:47:00 133 mm[Hg] [facility] Oxygen saturation by 2020-09-20 15:47:00 94 /min [facility] Heart Rate 2020-09-20 15:47:00 71 /min [facility] Respiratory rate 2020-09-20 15:47:00 19 [...] [facility] Heart Rate 2020-09-20 11:55:00 71 /min [...] [facility] Heart Rate 2020-09-20 09:06:00 86 /min [...] [facility] Heart Rate 2020-09-20 08:58:00 86 /min [facility] Respiratory rate 2020-09-20 08:58:00 19 /min [facility] Body Temperature 2020-09-20 08:58:00 98.4 [degF] [facility] BP Diastolic 2020-09-20 08:55:00 66 mm[Hg] [facility] BP Systolic 2020-09-20 08:55:00 145 mm[Hg] [facility] Oxygen saturation by 2020-09-20 08:55:00 99 /min [facility] Heart Rate 2020-09-20 08:55:00 86 /min [...] [facility] Heart Rate 2020-09-20 07:38:00 71 /min [facility] Respiratory rate 2020-09-20 07:38:00 19 /min [facility] Body Temperature 2020-09-20 07:38:00 98.4 [degF] [facility] Oxygen saturation by 2020-09-20 07:05:00 95 /min [facility] Heart Rate 2020-09-20 07:05:00 82 /min [facility] Respiratory rate 2020-09-20 07:05:00 18 /min [facility] BP Diastolic 2020-09-20 04:00:00 61 mm[Hg] [facility] BP Systolic 2020-09-20 04:00:00 145 mm[Hg] [facility] Oxygen saturation by 2020-09-20 04:00:00 96 /min [facility] Heart Rate 2020-09-20 04:00:00 66 /min [...] [facility] Heart Rate 2020-09-20 00:00:00 66 /min [facility] Respiratory rate 2020-09-20 00:00:00 20 /min [facility] Body Temperature 2020-09-20 00:00:00 97.9 [degF] [facility] BP Diastolic 2020-09-19 21:46:00 70 mm[Hg] [facility] BP Systolic 2020-09-19 21:46:00 138 mm[Hg] [facility] Oxygen saturation by 2020-09-19 21:46:00 94 /min [facility] Heart Rate 2020-09-19 21:46:00 80 /min [facility] Respiratory rate 2020-09-19 21:46:00 18 /min [facility] Body Temperature 2020-09-19 21:46:00 97.4 [degF] [facility] Oxygen saturation by 2020-09-19 20:09:00 95 /min [facility] Heart Rate 2020-09-19 20:09:00 82 /min [...] [facility] Heart Rate 2020-09-19 20:00:00 80 /min [...] [facility] Heart Rate 2020-09-19 15:41:00 80 /min [...] [facility] Heart Rate 2020-09-19 12:14:00 84 /min [...] [facility] Heart Rate 2020-09-19 11:26:00 88 /min [facility] Respiratory rate 2020-09-19 11:26:00 16 /min [facility] Body Temperature 2020-09-19 11:26:00 98.6 [degF] [facility] Oxygen saturation by 2020-09-19 08:10:00 93 /min [facility] Heart Rate 2020-09-19 08:10:00 97 /min [facility] Respiratory rate 2020-09-19 08:10:00 20 /min [facility] BP Diastolic 2020-09-19 07:37:00 91 mm[Hg] [facility] BP Systolic 2020-09-19 07:37:00 168 mm[Hg] [facility] Oxygen saturation by 2020-09-19 07:37:00 97 /min [facility] Heart Rate 2020-09-19 07:37:00 83 /min [facility] Respiratory rate 2020-09-19 07:37:00 21 /min [facility] Body Temperature 2020-09-19 07:37:00 98.1 [degF] [facility] BP Diastolic 2020-09-19 07:17:00 91 mm[Hg] [facility] BP Systolic 2020-09-19 07:17:00 168 mm[Hg] [facility] Oxygen saturation by 2020-09-19 07:17:00 97 /min [facility] Heart Rate 2020-09-19 07:17:00 83 /min [...] [facility] Heart Rate 2020-09-19 05:03:00 91 /min [facility] Respiratory rate 2020-09-19 05:03:00 18 /min [facility] Body Temperature 2020-09-19 05:03:00 91.0 [degF] [facility] BP Diastolic 2020-09-19 01:59:00 87 mm[Hg] [facility] BP Systolic 2020-09-19 01:59:00 200 mm[Hg] [facility] Oxygen saturation by 2020-09-19 01:59:00 96 /min [facility] Heart Rate 2020-09-19 01:59:00 92 /min [...] [facility] Heart Rate 2020-09-18 22:57:00 68 /min [...] [facility] Heart Rate 2020-09-18 21:58:00 68 /min [facility] Respiratory rate 2020-09-18 21:58:00 18 /min [facility] Body Temperature 2020-09-18 21:58:00 97.7 [degF] [facility] Oxygen saturation by 2020-09-18 21:16:00 93 /min [facility] Heart Rate 2020-09-18 21:16:00 97 /min [facility] Respiratory rate 2020-09-18 21:16:00 20 /min [facility] BP Diastolic 2020-09-18 15:41:00 70 mm[Hg] [facility] BP Systolic 2020-09-18 15:41:00 163 mm[Hg] [facility] Oxygen saturation by 2020-09-18 15:41:00 98 /min [facility] Heart Rate 2020-09-18 15:41:00 84 /min [facility] Respiratory rate 2020-09-18 15:41:00 21 /min [facility] Body Temperature 2020-09-18 15:41:00 98.6 [degF] [facility] BP Diastolic 2020-09-18 13:00:00 73 mm[Hg] [facility] BP Systolic 2020-09-18 13:00:00 160 mm[Hg] [facility] Oxygen saturation by 2020-09-18 13:00:00 96 /min [facility] Heart Rate 2020-09-18 13:00:00 86 /min [facility] Respiratory rate 2020-09-18 13:00:00 23 /min [facility] Body Temperature 2020-09-18 12:23:00 98.0 [degF] [facility] BP Diastolic 2020-09-18 12:00:00 77 mm[Hg] [facility] BP Systolic 2020-09-18 12:00:00 162 mm[Hg] [facility] Oxygen saturation by 2020-09-18 12:00:00 96 /min [facility] Heart Rate 2020-09-18 12:00:00 85 /min [...] [facility] Heart Rate 2020-09-18 11:00:00 86 /min [...] [facility] Heart Rate 2020-09-18 10:00:00 80 /min [...] [facility] Heart Rate 2020-09-18 09:00:00 86 /min [facility] Respiratory rate 2020-09-18 09:00:00 18 /min [facility] Body Temperature 2020-09-18 09:00:00 97.7 [degF] [facility] BP Diastolic 2020-09-18 08:00:00 70 mm[Hg] [facility] BP Systolic 2020-09-18 08:00:00 146 mm[Hg] [facility] Oxygen saturation by 2020-09-18 08:00:00 96 /min [facility] Heart Rate 2020-09-18 08:00:00 86 /min [facility] Respiratory rate 2020-09-18 08:00:00 15 /min [facility] BP Diastolic 2020-09-18 07:51:00 80 mm[Hg] [facility] BP Systolic 2020-09-18 07:51:00 141 mm[Hg] [facility] Oxygen saturation by 2020-09-18 07:51:00 96 /min [facility] Heart Rate 2020-09-18 07:51:00 86 /min [facility] Respiratory rate 2020-09-18 07:51:00 17 /min [facility] Body Temperature 2020-09-18 07:51:00 97.7 [degF] [facility] Oxygen saturation by 2020-09-18 07:35:00 97 /min [facility] Heart Rate 2020-09-18 07:35:00 85 /min [...] [facility] Heart Rate 2020-09-18 07:00:00 86 /min [...] [facility] Heart Rate 2020-09-18 06:00:00 95 /min [...] [facility] Heart Rate 2020-09-18 05:00:00 86 /min [facility] Respiratory rate 2020-09-18 05:00:00 18 /min [facility] BP Diastolic 2020-09-18 04:00:00 74 mm[Hg] [facility] BP Systolic 2020-09-18 04:00:00 150 mm[Hg] [facility] Oxygen saturation by 2020-09-18 04:00:00 96 /min [facility] Heart Rate 2020-09-18 04:00:00 76 /min [facility] Respiratory rate 2020-09-18 04:00:00 17 /min [facility] BP Diastolic 2020-09-18 03:00:00 88 mm[Hg] [facility] BP Systolic 2020-09-18 03:00:00 157 mm[Hg] [facility] Oxygen saturation by 2020-09-18 03:00:00 97 /min [facility] Heart Rate 2020-09-18 03:00:00 89 /min [facility] Respiratory rate 2020-09-18 03:00:00 15 /min [facility] BP Diastolic 2020-09-18 02:00:00 80 mm[Hg] [facility] BP Systolic 2020-09-18 02:00:00 145 mm[Hg] [facility] Oxygen saturation by 2020-09-18 02:00:00 96 /min [facility] Heart Rate 2020-09-18 02:00:00 95 /min [...] [facility] Heart Rate 2020-09-18 01:00:00 84 /min [facility] Respiratory rate 2020-09-18 01:00:00 19 /min [facility] BP Diastolic 2020-09-18 00:00:00 68 mm[Hg] [facility] BP Systolic 2020-09-18 00:00:00 144 mm[Hg] [facility] Oxygen saturation by 2020-09-18 00:00:00 97 /min [facility] Heart Rate 2020-09-18 00:00:00 89 /min [facility] Respiratory rate 2020-09-18 00:00:00 18 /min [facility] Body Temperature 2020-09-18 00:00:00 98.3 [degF] [facility] BP Diastolic 2020-09-17 23:00:00 89 mm[Hg] [facility] BP Systolic 2020-09-17 23:00:00 145 mm[Hg] [facility] Oxygen saturation by 2020-09-17 23:00:00 96 /min [facility] Heart Rate 2020-09-17 23:00:00 90 /min [...] [facility] Heart Rate 2020-09-17 22:03:00 90 /min [facility] Respiratory rate 2020-09-17 22:03:00 18 /min [facility] BP Diastolic 2020-09-17 21:00:00 62 mm[Hg] [facility] BP Systolic 2020-09-17 21:00:00 117 mm[Hg] [facility] Oxygen saturation by 2020-09-17 21:00:00 96 /min [facility] Heart Rate 2020-09-17 21:00:00 97 /min [facility] Respiratory rate 2020-09-17 21:00:00 19 /min [facility] Oxygen saturation by 2020-09-17 20:08:00 96 /min [facility] Heart Rate 2020-09-17 20:08:00 95 /min [facility] Respiratory rate 2020-09-17 20:08:00 20 /min [facility] BP Diastolic 2020-09-17 20:00:00 86 mm[Hg] [facility] BP Systolic 2020-09-17 20:00:00 169 mm[Hg] [facility] Oxygen saturation by 2020-09-17 20:00:00 95 /min [facility] Heart Rate 2020-09-17 20:00:00 105 /min [...] [facility] Heart Rate 2020-09-17 19:00:00 102 /min [facility] Respiratory rate 2020-09-17 19:00:00 23 /min [facility] Body Temperature 2020-09-17 19:00:00 97.4 [degF] [facility] BP Diastolic 2020-09-17 18:00:00 74 mm[Hg] [facility] BP Systolic 2020-09-17 18:00:00 146 mm[Hg] [facility] Oxygen saturation by 2020-09-17 18:00:00 95 /min [facility] Heart Rate 2020-09-17 18:00:00 97 /min [...] [facility] Heart Rate 2020-09-17 17:00:00 106 /min [...] [facility] Heart Rate 2020-09-17 16:00:00 96 /min [facility] Respiratory rate 2020-09-17 16:00:00 32 /min [facility] Body Temperature 2020-09-17 16:00:00 98.6 [degF] [facility] Oxygen saturation by 2020-09-17 15:28:00 94 /min [facility] Heart Rate 2020-09-17 15:28:00 83 /min [facility] Respiratory rate 2020-09-17 15:28:00 26 /min [facility] Oxygen saturation by 2020-09-17 15:27:00 94 /min [facility] Heart Rate 2020-09-17 15:27:00 83 /min [...] [facility] Heart Rate 2020-09-17 15:00:00 93 /min [facility] Respiratory rate 2020-09-17 15:00:00 24 /min [facility] Oxygen saturation by 2020-09-17 14:59:00 94 /min [facility] Heart Rate 2020-09-17 14:59:00 84 /min [...] [facility] Heart Rate 2020-09-17 14:00:00 109 /min [facility] Respiratory rate 2020-09-17 14:00:00 29 /min [facility] BP Diastolic 2020-09-17 13:00:00 87 mm[Hg] [facility] BP Systolic 2020-09-17 13:00:00 171 mm[Hg] [facility] Oxygen saturation by 2020-09-17 13:00:00 92 /min [facility] Heart Rate 2020-09-17 13:00:00 112 /min [...] [facility] Heart Rate 2020-09-17 12:00:00 112 /min [facility] Respiratory rate 2020-09-17 12:00:00 26 /min [facility] BP Diastolic 2020-09-17 11:00:00 80 mm[Hg] [facility] BP Systolic 2020-09-17 11:00:00 148 mm[Hg] [facility] Oxygen saturation by 2020-09-17 11:00:00 92 /min [facility] Heart Rate 2020-09-17 11:00:00 119 /min [...] Center Respiratory rate 2020-09-17 10:00:00 38 /min [facility] BP Diastolic 2020-09-17 09:00:00 82 mm[Hg] [facility] BP Systolic 2020-09-17 09:00:00 175 mm[Hg] [facility] Oxygen saturation by 2020-09-17 09:00:00 97 /min [facility] Heart Rate 2020-09-17 09:00:00 88 /min [facility] Respiratory rate 2020-09-17 09:00:00 17 /min [facility] Body Temperature 2020-09-17 09:00:00 97.6 [degF] [facility] BP Diastolic 2020-09-17 08:00:00 77 mm[Hg] [facility] BP Systolic 2020-09-17 08:00:00 167 mm[Hg] [facility] Oxygen saturation by 2020-09-17 08:00:00 96 /min [facility] Heart Rate 2020-09-17 08:00:00 85 /min [...] [facility] Heart Rate 2020-09-17 07:00:00 84 /min [facility] Respiratory rate 2020-09-17 07:00:00 15 /min [facility] BP Diastolic 2020-09-17 06:00:00 87 mm[Hg] [facility] BP Systolic 2020-09-17 06:00:00 159 mm[Hg] [facility] Oxygen saturation by 2020-09-17 06:00:00 96 /min [facility] Heart Rate 2020-09-17 06:00:00 83 /min [...] [facility] Heart Rate 2020-09-17 05:00:00 84 /min [...] [facility] Heart Rate 2020-09-17 04:00:00 86 /min [facility] Respiratory rate 2020-09-17 04:00:00 22 /min [facility] BP Diastolic 2020-09-17 03:30:00 84 mm[Hg] [facility] BP Systolic 2020-09-17 03:30:00 196 mm[Hg] [facility] BP Diastolic 2020-09-17 03:00:00 82 mm[Hg] [facility] BP Systolic 2020-09-17 03:00:00 188 mm[Hg] [facility] Oxygen saturation by 2020-09-17 03:00:00 97 /min [facility] Heart Rate 2020-09-17 03:00:00 90 /min [facility] Respiratory rate 2020-09-17 03:00:00 18 /min [facility] Body Temperature 2020-09-17 03:00:00 97.6 [degF] [facility] BP Diastolic 2020-09-17 02:00:00 75 mm[Hg] [facility] BP Systolic 2020-09-17 02:00:00 154 mm[Hg] [facility] Oxygen saturation by 2020-09-17 02:00:00 95 /min [facility] Heart Rate 2020-09-17 02:00:00 88 /min [...] [facility] Heart Rate 2020-09-17 01:00:00 88 /min [facility] Respiratory rate 2020-09-17 01:00:00 15 /min [facility] BP Diastolic 2020-09-17 00:00:00 76 mm[Hg] [facility] BP Systolic 2020-09-17 00:00:00 171 mm[Hg] [facility] Oxygen saturation by 2020-09-17 00:00:00 96 /min [facility] Heart Rate 2020-09-17 00:00:00 92 /min [facility] Respiratory rate 2020-09-17 00:00:00 26 /min [facility] Oxygen saturation by 2020-09-16 23:05:00 95 /min [facility] Heart Rate 2020-09-16 23:05:00 77 /min [facility] Respiratory rate 2020-09-16 23:05:00 17 /min [facility] BP Diastolic 2020-09-16 23:00:00 123 mm[Hg] [facility] BP Systolic 2020-09-16 23:00:00 212 mm[Hg] [facility] Oxygen saturation by 2020-09-16 23:00:00 97 /min [facility] Heart Rate 2020-09-16 23:00:00 83 /min [facility] Respiratory rate 2020-09-16 23:00:00 [...] Center BP Systolic 2020-09-16 22:06:00 176 mm[Hg] [facility] Oxygen saturation by 2020-09-16 22:06:00 96 /min [facility] Heart Rate 2020-09-16 22:06:00 82 /min [facility] Respiratory rate 2020-09-16 22:06:00 18 /min [facility] BP Diastolic 2020-09-16 22:03:00 81 mm[Hg] [facility] BP Systolic 2020-09-16 22:03:00 201 mm[Hg] [facility] Oxygen saturation by 2020-09-16 22:03:00 96 /min [facility] Heart Rate 2020-09-16 22:03:00 84 /min [facility] Respiratory rate 2020-09-16 22:03:00 22 /min [facility] BP Diastolic 2020-09-16 22:00:00 86 mm[Hg] [facility] BP Systolic 2020-09-16 22:00:00 206 mm[Hg] [facility] Oxygen saturation by 2020-09-16 22:00:00 96 /min [facility] Heart Rate 2020-09-16 22:00:00 86 /min [facility] Respiratory rate 2020-09-16 22:00:00 19 /min [facility] BP Diastolic 2020-09-16 21:01:00 69 mm[Hg] [facility] BP Systolic 2020-09-16 21:01:00 153 mm[Hg] [facility] Oxygen saturation by 2020-09-16 21:01:00 96 /min [facility] Heart Rate 2020-09-16 21:01:00 85 /min [facility] Respiratory rate 2020-09-16 21:01:00 17 /min [facility] BP Diastolic 2020-09-16 20:44:00 111 mm[Hg] [facility] BP Systolic 2020-09-16 20:44:00 141 mm[Hg] [facility] Oxygen saturation by 2020-09-16 20:44:00 96 /min [facility] Heart Rate 2020-09-16 20:44:00 84 /min [facility] Respiratory rate 2020-09-16 20:44:00 21 /min [facility] Body Temperature 2020-09-16 20:44:00 98.0 [degF] [facility] BP Diastolic 2020-09-16 20:42:00 111 mm[Hg] [facility] BP Systolic 2020-09-16 20:42:00 141 mm[Hg] [facility] Heart Rate 2020-09-16 20:42:00 84 /min [facility] BP Diastolic 2020-09-16 20:24:00 66 mm[Hg] [facility] Med[facility] [...] [facility] Heart Rate 2020-09-16 20:00:00 96 /min [facility] Respiratory rate 2020-09-16 20:00:00 21 /min [facility] Body Temperature 2020-09-16 20:00:00 98.0 [degF] [facility] Oxygen saturation by 2020-09-16 19:40:00 96 /min [facility] Heart Rate 2020-09-16 19:40:00 105 /min [facility] Respiratory rate 2020-09-16 19:40:00 27 /min [facility] BP Diastolic 2020-09-16 16:00:00 90 mm[Hg] [facility] BP Systolic 2020-09-16 16:00:00 175 mm[Hg] [facility] Oxygen saturation by 2020-09-16 16:00:00 96 /min [facility] Heart Rate 2020-09-16 16:00:00 108 /min [facility] Respiratory rate 2020-09-16 16:00:00 36 /min [facility] Body Temperature 2020-09-16 16:00:00 98.5 [degF] [facility] BP Diastolic 2020-09-16 13:00:00 73 mm[Hg] [facility] BP Systolic 2020-09-16 13:00:00 149 mm[Hg] [facility] Oxygen saturation by 2020-09-16 13:00:00 2 /min [facility] Heart Rate 2020-09-16 13:00:00 90 /min [facility] Respiratory rate 2020-09-16 13:00:00 15 /min [facility] BP Diastolic 2020-09-16 12:00:00 88 mm[Hg] [facility] BP Systolic 2020-09-16 12:00:00 174 mm[Hg] [facility] Oxygen saturation by 2020-09-16 12:00:00 94 /min [facility] Heart Rate 2020-09-16 12:00:00 101 /min [facility] Respiratory rate 2020-09-16 12:00:00 32 /min [facility] [place] Body Temperature 2020-09-16 12:00:00 97.8 [degF] [facility] [place] Oxygen saturation by 2020-09-16 11:00:00 96 /min [facility] Heart Rate 2020-09-16 11:00:00 79 /min [facility] [place] Respiratory rate 2020-09-16 11:00:00 19 /min [facility] BP Diastolic 2020-09-16 11:00:00 81 mm[Hg] [facility] BP Systolic 2020-09-16 11:00:00 186 mm[Hg] [facility] BP Diastolic 2020-09-16 10:00:00 82 mm[Hg] [facility] BP Systolic 2020-09-16 10:00:00 166 mm[Hg] [facility] Oxygen saturation by 2020-09-16 10:00:00 95 /min [facility] Heart Rate 2020-09-16 10:00:00 82 /min [...] [facility] Heart Rate 2020-09-16 09:00:00 82 /min [...] [facility] Heart Rate 2020-09-16 08:00:00 79 /min [...] [facility] Heart Rate 2020-09-16 07:00:00 73 /min [...] [facility] Heart Rate 2020-09-16 06:00:00 87 /min [facility] Respiratory rate 2020-09-16 06:00:00 19 /min [facility] BP Diastolic 2020-09-16 05:00:00 71 mm[Hg] [facility] BP Systolic 2020-09-16 05:00:00 150 mm[Hg] [facility] Oxygen saturation by 2020-09-16 05:00:00 96 /min [facility] Heart Rate 2020-09-16 05:00:00 89 /min [facility] Respiratory rate 2020-09-16 05:00:00 22 /min [facility] BP Diastolic 2020-09-16 04:00:00 71 mm[Hg] [facility] BP Systolic 2020-09-16 04:00:00 139 mm[Hg] [facility] Oxygen saturation by 2020-09-16 04:00:00 96 /min [facility] Heart Rate 2020-09-16 04:00:00 85 /min [facility] Respiratory rate 2020-09-16 04:00:00 16 /min [facility] BP Diastolic 2020-09-16 03:00:00 69 mm[Hg] [facility] BP Systolic 2020-09-16 03:00:00 135 mm[Hg] [facility] Oxygen saturation by 2020-09-16 03:00:00 95 /min [facility] Heart Rate 2020-09-16 03:00:00 82 /min [facility] Respiratory rate 2020-09-16 03:00:00 15 /min [facility] Body Temperature 2020-09-16 03:00:00 98.5 [degF] [facility] BP Diastolic 2020-09-16 02:00:00 66 mm[Hg] [facility] BP Systolic 2020-09-16 02:00:00 140 mm[Hg] [facility] Oxygen saturation by 2020-09-16 02:00:00 95 /min [facility] Heart Rate 2020-09-16 02:00:00 83 /min [facility] Respiratory rate 2020-09-16 02:00:00 17 /min [facility] BP Diastolic 2020-09-16 01:00:00 70 mm[Hg] [facility] BP Systolic 2020-09-16 01:00:00 164 mm[Hg] [facility] Oxygen saturation by 2020-09-16 01:00:00 96 /min [facility] Heart Rate 2020-09-16 01:00:00 84 /min [facility] Respiratory rate 2020-09-16 01:00:00 20 /min [facility] BP Diastolic 2020-09-16 00:00:00 86 mm[Hg] [facility] BP Systolic 2020-09-16 00:00:00 173 mm[Hg] [facility] Oxygen saturation by 2020-09-16 00:00:00 94 /min [facility] Heart Rate 2020-09-16 00:00:00 77 /min [...] [facility] Heart Rate 2020-09-15 23:00:00 79 /min [...] [facility] Heart Rate 2020-09-15 22:00:00 78 /min [...] [facility] Heart Rate 2020-09-15 21:00:00 79 /min [facility] Respiratory rate 2020-09-15 21:00:00 17 /min [facility] Oxygen saturation by 2020-09-15 20:50:00 94 /min [facility] Heart Rate 2020-09-15 20:50:00 81 /min [...] [facility] Heart Rate 2020-09-15 20:00:00 76 /min [facility] Respiratory rate 2020-09-15 20:00:00 22 /min [facility] Oxygen saturation by 2020-09-15 19:00:00 96 /min [facility] Respiratory rate 2020-09-15 19:00:00 14 /min [facility] Body Temperature 2020-09-15 19:00:00 98.7 [degF] [facility] BP Diastolic 2020-09-15 18:00:00 115 mm[Hg] [facility] BP Systolic 2020-09-15 18:00:00 154 mm[Hg] [facility] Oxygen saturation by 2020-09-15 18:00:00 94 /min [facility] Heart Rate 2020-09-15 18:00:00 79 /min [facility] Respiratory rate 2020-09-15 18:00:00 19 /min [facility] BP Diastolic 2020-09-15 17:00:00 65 mm[Hg] [facility] BP Systolic 2020-09-15 17:00:00 154 mm[Hg] [facility] Oxygen saturation by 2020-09-15 17:00:00 95 /min [facility] Heart Rate 2020-09-15 17:00:00 71 /min [...] [facility] Heart Rate 2020-09-15 16:00:00 75 /min [facility] Respiratory rate 2020-09-15 16:00:00 16 /min [facility] BP Diastolic 2020-09-15 15:14:00 71 mm[Hg] [facility] BP Systolic 2020-09-15 15:14:00 169 mm[Hg] [facility] Oxygen saturation by 2020-09-15 15:14:00 100 /min [facility] Heart Rate 2020-09-15 15:14:00 75 /min [facility] Body Temperature 2020-09-15 15:14:00 97.7 [degF] [facility] BP Diastolic 2020-09-15 15:10:00 66 mm[Hg] [facility] BP Systolic 2020-09-15 15:10:00 156 mm[Hg] [facility] Oxygen saturation by 2020-09-15 15:10:00 100 /min [facility] Heart Rate 2020-09-15 15:10:00 74 /min [...] [facility] Heart Rate 2020-09-15 14:50:00 81 /min [facility] Respiratory rate 2020-09-15 14:50:00 18 /min [facility] BP Diastolic 2020-09-15 14:40:00 94 mm[Hg] [facility] BP Systolic 2020-09-15 14:40:00 200 mm[Hg] [facility] Oxygen saturation by 2020-09-15 14:40:00 97 /min [facility] Heart Rate 2020-09-15 14:40:00 96 /min [facility] Respiratory rate 2020-09-15 14:40:00 16 /min [facility] BP Diastolic 2020-09-15 14:25:00 96 mm[Hg] [facility] BP Systolic 2020-09-15 14:25:00 175 mm[Hg] [facility] Oxygen saturation by 2020-09-15 14:25:00 98 /min [facility] Heart Rate 2020-09-15 14:25:00 99 /min [facility] Respiratory rate 2020-09-15 14:25:00 16 [...] [facility] Heart Rate 2020-09-15 11:14:00 70 /min [...] 171 mm[Hg] [facility] Oxygen saturation by 2020-09-15 08:52:00 92 /min [facility] Heart Rate 2020-09-15 08:52:00 74 /min [facility] Respiratory rate 2020-09-15 08:52:00 [...] [facility] Heart Rate 2020-09-15 07:45:00 74 /min [...] [facility] Heart Rate 2020-09-15 04:00:00 68 /min [...] [facility] Heart Rate 2020-09-15 00:00:00 72 /min [...] [facility] Heart Rate 2020-09-14 20:27:00 90 /min [...] [facility] Heart Rate 2020-09-14 20:00:00 90 /min [facility] Respiratory rate 2020-09-14 20:00:00 20 /min [facility] Body Temperature 2020-09-14 20:00:00 98.5 [degF] [facility] BP Diastolic 2020-09-14 15:47:00 82 mm[Hg] [facility] BP Systolic 2020-09-14 15:47:00 155 mm[Hg] [facility] Oxygen saturation by 2020-09-14 15:47:00 95 /min [facility] Heart Rate 2020-09-14 15:47:00 85 /min [facility] Respiratory rate 2020-09-14 15:47:00 16 /min [facility] Body Temperature 2020-09-14 15:47:00 98.1 [degF] [facility] BP Diastolic 2020-09-14 11:15:00 73 mm[Hg] [facility] BP Systolic 2020-09-14 11:15:00 165 mm[Hg] [facility] Oxygen saturation by 2020-09-14 11:15:00 93 /min [facility] Heart Rate 2020-09-14 11:15:00 89 /min [...] [facility] Heart Rate 2020-09-14 07:49:00 88 /min [facility] Respiratory rate 2020-09-14 07:49:00 18 /min [facility] Body Temperature 2020-09-14 07:49:00 97.9 [degF] [facility] BP Diastolic 2020-09-14 07:31:00 67 mm[Hg] [facility] BP Systolic 2020-09-14 07:31:00 166 mm[Hg] [facility] Oxygen saturation by 2020-09-14 07:31:00 93 /min [facility] Heart Rate 2020-09-14 07:31:00 88 /min [facility] Respiratory rate 2020-09-14 07:31:00 18 /min [facility] Body Temperature 2020-09-14 07:31:00 97.9 [degF] [facility] BP Diastolic 2020-09-14 04:00:00 74 mm[Hg] [facility] BP Systolic 2020-09-14 04:00:00 175 mm[Hg] [facility] Oxygen saturation by 2020-09-14 04:00:00 94 /min [facility] Heart Rate 2020-09-14 04:00:00 94 /min [...] [facility] Heart Rate 2020-09-14 00:00:00 90 /min [facility] Respiratory rate 2020-09-14 00:00:00 18 /min [facility] Body Temperature 2020-09-14 00:00:00 98.1 [degF] [facility] BP Diastolic 2020-09-13 20:12:00 84 mm[Hg] [facility] BP Systolic 2020-09-13 20:12:00 177 mm[Hg] [facility] Oxygen saturation by 2020-09-13 20:12:00 94 /min [facility] Heart Rate 2020-09-13 20:12:00 88 /min [...] [facility] Heart Rate 2020-09-13 20:00:00 88 /min [...] 140 mm[Hg] [facility] Oxygen saturation by 2020-09-13 16:11:00 94 /min [facility] Heart Rate 2020-09-13 16:11:00 78 /min [facility] Respiratory rate 2020-09-13 16:11:00 18 /min [facility] Body Temperature 2020-09-13 16:11:00 98.1 [degF] [facility] BP Diastolic 2020-09-13 12:08:00 84 mm[Hg] [facility] BP Systolic 2020-09-13 12:08:00 172 mm[Hg] [facility] Oxygen saturation by 2020-09-13 12:08:00 94 /min [facility] Heart Rate 2020-09-13 12:08:00 82 /min [...] [facility] Heart Rate 2020-09-13 11:16:00 79 /min [...] [facility] Heart Rate 2020-09-13 08:45:00 79 /min [...] [facility] Heart Rate 2020-09-13 04:00:00 87 /min [facility] Respiratory rate 2020-09-13 04:00:00 20 /min [facility] Body Temperature 2020-09-13 04:00:00 97.9 [degF] [facility] BP Diastolic 2020-09-13 00:00:00 79 mm[Hg] [facility] BP Systolic 2020-09-13 00:00:00 150 mm[Hg] [facility] Oxygen saturation by 2020-09-13 00:00:00 93 /min [facility] Heart Rate 2020-09-13 00:00:00 76 /min [facility] Respiratory rate 2020-09-13 00:00:00 20 /min [facility] Body Temperature 2020-09-13 00:00:00 98.7 [degF] [facility] BP Diastolic 2020-09-12 22:28:00 92 mm[Hg] [facility] BP Systolic 2020-09-12 22:28:00 150 mm[Hg] [facility] Oxygen saturation by 2020-09-12 22:28:00 95 /min [facility] Heart Rate 2020-09-12 22:28:00 96 /min [facility] Respiratory rate 2020-09-12 22:28:00 18 /min [facility] Body Temperature 2020-09-12 22:28:00 97.9 [degF] [facility] BP Diastolic 2020-09-12 22:18:00 92 mm[Hg] [facility] BP Systolic 2020-09-12 22:18:00 150 mm[Hg] [facility] Oxygen saturation by 2020-09-12 22:18:00 95 /min [facility] Patients [facility] Heart Rate 2020-09-12 22:18:00 96 /min [facility] Respiratory rate 2020-09-12 22:18:00 18 /min [facility] Body Temperature 2020-09-12 22:18:00 97.9 [degF] [facility] BP Diastolic 2020-09-12 20:23:00 92 mm[Hg] [facility] BP Systolic 2020-09-12 20:23:00 150 mm[Hg] [facility] Oxygen saturation by 2020-09-12 20:23:00 96 /min [facility] Pulse oximetry Patients [facility] Heart Rate 2020-09-12 20:23:00 95 /min [facility] Patients [facility] Respiratory rate 2020-09-12 20:23:00 18 /min [facility] Body Temperature 2020-09-12 20:23:00 97.9 [degF] [facility] Oxygen saturation by 2020-09-12 20:11:00 96 /min [facility] Pulse oximetry Patients [facility] Oxygen saturation by 2020-09-12 18:25:00 98 /min [facility] Pulse [facility]ximetry Patients [facility] Oxygen saturation by 2020-09-12 15:35:00 98 /min [facility] Pulse [facility]ximetry Patients [facility] Procedures Procedure Date / Time Performing Clinician Source Performed HC COMPLETE BLD COUNT 2021-02-23 09:51:00 [facility] W/AUTO DIFF BASIC METABOLIC PANEL 2021-02-23 09:51:00 [facility] ESTIMATED GFR 2021-02-23 09:51:00 [facility] HC COMPLETE BLD COUNT 2021-02-22 09:32:00 [facility] W/AUTO DIFF BASIC METABOLIC PANEL 2021-02-22 09:32:00 [facility] ESTIMATED GFR 2021-02-22 09:32:00 [facility] HC COMPLETE BLD COUNT 2021-02-21 09:50:00 [facility] W/AUTO DIFF BASIC METABOLIC PANEL 2021-02-21 09:50:00 [facility] LIPID PANEL 2021-02-21 09:50:00 [facility] ESTIMATED GFR 2021-02-21 09:50:00 [facility] COVID-19 ANTI-SPIKE IGG 2021-02-20 23:58:00 [facility] 2021-02-20 23:58:00 [facility] SURVEILLANCE THYROID STIMULATING 2021-02-20 23:58:00 [facility] HORMONE T4, FREE 2021-02-20 23:58:00 [facility] FERRITIN LEVEL 2021-02-20 23:58:00 [facility] LDH 2021-02-20 23:58:00 [facility] SEDIMENTATION RATE 2021-02-20 23:58:00 [facility] CRP HIGH SENSITIVITY 2021-02-20 23:58:00 [facility] INTERLEUKIN 6 2021-02-20 23:58:00 [facility] PROCALCITONIN 2021-02-20 23:58:00 [facility] D-DIMER 2021-02-20 23:58:00 [facility] PROTHROMBIN TIME WITH INR 2021-02-20 23:58:00 [facility] TROPONIN, I-STAT 2021-02-20 15:35:00 [facility] COVID-19 QUALITATIVE 2021-02-20 14:41:00 Osmel Fowler [facility] RT-PCR CT ANGIOGRAM PE CHEST 2021-02-20 13:52:50 Osmel Fowler [facility] US DUPLEX VENOUS LOWER 2021-02-20 12:59:12 [facility] Narendra URINALYSIS 2021-02-20 12:35:00 Isaac Quiles [facility]ital Narendra XR CHEST 1 VW PORTABLE 2021-02-20 12:15:13 [facility] BASIC METABOLIC PANEL 2021-02-20 12:10:00 [facility] ESTIMATED GFR 2021-02-20 12:10:00 Isaac Quiles spital Narendra RESPIRATORY PATHOGEN 2021-02-20 12:05:00 Isaac Quiles [facility] PANEL WITH COVID-19 Narendra RT-PCR COMPREHENSIVE METABOLIC 2021-02-20 11:55:00 Isaac Quiles [facility] PANEL Narendra CBC WITH PLATELET AND 2021-02-20 11:55:00 Isaac Quiles [facility] DIFFERENTIAL Narendra CREATINE KINASE, TOTAL 2021-02-20 11:55:00 Isaac Quiles [facility] Narendra TROPONIN, I-STAT 2021-02-20 11:55:00 Andrew Calix [facility] ESTIMATED GFR 2021-02-20 11:55:00 [facility] Narendra PROTHROMBIN TIME WITH 2021-02-20 11:55:00 Isaac Quiles [facility] INR, I-STAT Narendra MANUAL DIFFERENTIAL 2021-02-20 11:55:00 Isaac Quiles [facility] Narendra ECG 12-LEAD 2021-02-20 11:33:15 [facility] Narendra ECG ED PRELIMINARY 2021-02-20 11:32:10 Isaac Quiles [facility] INTERPRETATION Narendra PHYSICIAN ORDERS 2021-01-24 05:01:00 Doctor Unaanncy, [facility] CERVICAL SPINE WO 2021-01-16 05:11:15 Mumtaz Sawnson [facility] CONTRAST Medical Branch CT HEAD WO CONTRAST 2021-01-16 05:11:15 Mumtaz Swanson [facility] NOTICE OF PRIVACY 2021-01-16 04:10:39 Doctor Bryson, [facility] PRACTICES [facility] CT HEAD WO CONTRAST 2021-01-11 01:54:48 Sushma Juarez [facility] CONSENT/REFUSAL FOR 2021-01-10 23:21:01 Doctor Unassrodrigo, [facility] DIAGNOSIS AND TREATMENT [facility] NOTICE OF PRIVACY 2020-12-29 19:06:49 [facility] CONSENT/REFUSAL FOR 2020-12-29 19:06:22 Doctor Unassigned, [facility] DIAGNOSIS AND TREATMENT [facility] ASSIGNMENT OF BENEFITS 2020-12-29 19:06:04 [facility] ASSIGNMENT OF BENEFITS 2020-12-29 17:51:14 Doctor Unassigned, Un [facility] HC COMPLETE BLD COUNT 2020-12-03 10:00:00 [facility] W/AUTO DIFF BASIC METABOLIC PANEL 2020-12-03 09:00:00 [facility] ESTIMATED GFR 2020-12-03 09:00:00 [facility] MRI BRAIN WO CONTRAST 2020-12-02 17:48:00 [facility] BASIC METABOLIC PANEL 2020-12-02 08:52:00 [facility] ESTIMATED GFR 2020-12-02 08:52:00 [facility] HC COMPLETE BLD COUNT 2020-12-02 08:38:00 [facility] W/AUTO DIFF US CAROTID DUPLEX 2020-12-01 20:45:00 [facility] BILATERAL TTE COMPLETE, WO 2020-12-01 16:39:21 [facility] CONTRAST, W DOPPLER ([id number]) HC COMPLETE BLD COUNT 2020-12-01 09:30:00 [facility] W/AUTO DIFF BASIC METABOLIC PANEL 2020-12-01 09:00:00 [facility] ESTIMATED GFR 2020-12-01 09:00:00 [facility] LIPID PANEL 2020-12-01 02:15:00 [facility] THYROID STIMULATING 2020-12-01 02:15:00 [facility] HORMONE T4, FREE 2020-12-01 02:15:00 [facility] TROPONIN 2020-12-01 02:15:00 [facility] HEMOGLOBIN A1C 2020-12-01 01:15:00 Andrew Calix [facility] URINALYSIS, AUTOMATED 2020-11-30 22:23:00 [facility] WITH MICROSCOPY COVID-19 QUALITATIVE 2020-11-30 21:44:00 [facility] RT-PCR CT HEAD WO CONTRAST 2020-11-30 19:03:[address] [facility] [address] ANGIOGRAM PE CHEST 2020-11-30 19:03:13 [facility] ECG ED PRELIMINARY 2020-11-30 17:08:13 [facility] INTERPRETATION HC COMPLETE BLD COUNT 2020-11-30 16:15:00 [facility] W/AUTO DIFF PROTHROMBIN TIME WITH INR 2020-11-30 16:15:00 [facility] PARTIAL THROMBOPLASTIN 2020-11-30 16:15:00 [facility] TIME (PTT) COMPREHENSIVE METABOLIC 2020-11-30 16:15:00 [facility] PANEL TROPONIN 2020-11-30 16:15:00 [facility] ospital B NATRIURETIC PEPTIDE 2020-11-30 16:15:00 [facility] ESTIMATED GFR 2020-11-30 16:15:00 [facility] ospital D-DIMER 2020-11-30 16:15:00 [facility] ospital ECG 12-LEAD 2020-11-30 15:58:05 [facility] ospital Computed tomography of 2020-09-20 00:00:00 RUSTAM Bruno - chest with contrast Patients [facility] Exploratory laparotomy 2020-09-15 00:00:00 RUSTAM Bruno - [facility] Center CT of abdomen and pelvis 2020-03-02 00:00:00 RUSTAM Arora - without contrast Patients [facility] EXTERNAL PROVIDER RECORDS 2019-01-27 05:01:00 Doctor Unassigned, [facility] Plan of Care Planned Activity Planned Date Details Comments Source Future Scheduled Test 65+ PNEUMOCOCCAL [facility] VACCINE (1 of 2 - PPSV23) [code = 65+ PNEUMOCOCCAL VACCINE (1 of 2 - PPSV23)] Future Scheduled Test COVID-19 VACCINE (1) [facility] [code = COVID-19 VACCINE (1)] Future Scheduled Test SHINGLES VACCINES (#1) [facility] [code = SHINGLES VACCINES (#1)] Future Scheduled Test INFLUENZA VACCINE [code [facility] = INFLUENZA VACCINE] Encounters Start End Encounter Admission Attending Care Care Encounter Source Date/Time Date/Time Type Type Clinicians Facility Department ID 2021-04-30 Emergency [facility] [id number] Univers [facility] 2021-04-30 Emergency [facility] [id number] Univers 08:16:39 [facility] 2020-09-12 Inpatient [facility] [id number] [facility]. 15:27:00 -[id number] [facility] 2021-07-08 2021-07-13 Inpatient FIFI [facility] [id number] [place] 00:00:00 00:00:00 ANDREW 765 Method i 2021-07-01 2021-07-01 Emergency ANNIE [facility] [id number] [place] 00:00:00 00:00:00 SUBHASH 585 Method i 2021-06-18 2021-06-18 Outpatient 2030_Biopsy [facility] [id number] [place] 12:38:00 12:38:00 [id number] 2021-04-11 2021-04-23 Inpatient FIFI [facility] [id number] [place] 00:00:00 00:00:00 ANDREW 777 Method i 2021-04-19 2021-04-19 Inpatient BONI [facility] [id number] [place] 00:00:00 00:00:00 MOHAMMED 627 Metho reena 2021-03-09 2021-03-09 Emergency LORY ALEJO [facility] [id number] [place] 00:00:00 00:00:00 967 Method i 2021-02-20 2021-02-23 Hospital Melissa CALIX.2.840.1 [id number] [place] 00:00:00 00:00:00 Encounter ANDREW 04280.1.1 [address] .3.030052 .8 2021-02-20 2021-02-20 Travel 1.2.840.1 1.2.232.205 [id number] Methodi 00:00:00 00:00:[address] 3.430.2.7 0.2.7.3.698 Ho spita .3.198654 084.8 l .8 2021-01-30 2021-01-30 Outpatient R HESHAM [facility] [id number] Univers 14:30:00 14:30:00 WONDIFUL ity o f [facility] 2021-01-24 2021-01-24 Central Communications Specialist Fred [facility] Main [facility] 1.2.8 40.114 [id number] Univers 15:50:12 16:05:12 Visit David Cruz 350.1.13.1 0 ity [facility] 4.2.7.2.686 [place] [facility] [phone] Me dical [address] 2021-01-24 2021-01-24 Outpatient R [facility] [id number] Univers 16:00:00 16:00:00 [id number] ity of [facility] 2021-01-24 2021-01-24 Outpatient R ANTHONY [facility] [id number] Univers 16:00:00 16:00:00 DAVID ity [facility] 2021-01-24 2021-01-24 Orders Doctor DAVID 1.2.840.114 [id number] Univers 00:00:00 00:00:00 Only Unassigned, GREGORY 350.1.13.10 [place] [facility] 4.2.7.2.686 Flash as [phone] [address] 2021-01-15 2021-01-16 Emergency , [facility] 1.2.220.171 [id number] Univers 23:22:00 03:17:00 Mumtaz Tineo 350.1.13.10 i ty [place].7.2.686 [place] [id number] [facility] [address] [place] 2021-01-10 2021-01-10 Emergency Amalia, Sagar [facility] 1.2.840.114 [id number] Univers 18:49:00 22:03:00 May Tineo 350.1.13.10 i [place] 4.2.7.2.686 [facility] [id number] [facility] [address] [place] 2020-12-29 2020-12-29 Hospital [facility] 1.2.840.114 [id number] Univers 14:04:19 23:59:00 Encounter Melody Butlerton 350.1.13.10 ity of [place] 4.2.7.2.686 [facility] [id number] [facility] [address] [place] 2020-12-29 2020-12-29 Hospital [facility] 1.2.840.114 [id number] Univers 14:00:00 14:03:00 Encounter Melody [place] 350.1.13.10 ity of [place] 4.2.7.2.686 [facility] [id number] [address] 2020-12-29 2020-12-29 [facility] [id number] Univers 14:00:00 14:00:00 MELODY [id number] ity [facility] 2020-12-29 2020-12-29 [facility] 1.2.840.114 [id number] Univers 12:52:54 13:35:06 Visit Melody [facility] 350.1.13.10 i ty of [place] 4.2.7.2.686 Flash Professio [phone] Nd dical [address] Office [address] One 2020-12-29 2020-12-29 [facility] 1.2.840.114 [id number] 12:52:54 13:35:06 Visit Melody [facility] 350.1.13.10 [place] 4.2.7.2.686 Professio [phone] nal [facility] Office Building One 2020-12-29 2020-12-29 Outpatient R VALFORMERLY [facility] [id number] Univers 13:00:00 13:00:00 MELODY ity of [facility] 2020-12-29 2020-12-29 Orders Doctor DAVID 1.2.840.114 [id number] Univers 00:00:00 00:00:00 Only Unassigned, GREGORY 350.1.13.10 [place] [facility] 4.2.7.2.686 Flash as [phone] [address] 2020-11-30 2020-12-04 Hospital FIFI, 1.2.840.1 [id number] [place] 00:00:00 00:00:00 Encounter ANDREW 37746.1.1 [address] 3.[address].2.[address] .3.909768 .8 2020-11-30 2020-11-30 Travel 1.2.840.1 1.2.952.867 [id number] [facility] 00:00:00 00:00:[address] 3.430.2.7 0.2.7.3.698 Ho spita .3.755004 084.8 l .8 2020-09-12 2020-09-28 Discharged 1 [facility]INI, [facility] [id number] 19:18:00 13:20:00 Inpatient SOUHEIL Patients 99 [facility] 2020-03-02 2020-03-02 Outpatient [facility] [id number] 14:00:00 14:00:00 -[id number] [facility] - Patient [facility] 2020-03-02 2020-03-02 Registered 3 [facility]INI[facility] [id number] 13:32:00 13:32:00 Clinic JEANNINE Patients 29 [facility] 2020-02-24 2020-02-24 Outpatient [facility] [id number] 14:00:00 14:00:00 -[id number] [facility] Patient [facility] 2020-02-23 2020-02-23 Outpatient [facility] [id number] 12:00:00 12:00:00 -[id number] [facility] 2019-01-27 2019-01-27 Orders Doctor DAVID 1.2.840.114 [id number] Univers 00:00:00 00:00:00 Only Unassigned, GREGORY 350.1.13.10 [place] [facility] 4.2.7.2.686 Flash as [id number] [facility] 009 Branch Results Test Description Test Time Test Comments Results Result Comments Source SARS-CoV-2 (COVID-19) RNA [Presence] in Respiratory sp ecimen by 2021-07-08 22:24:52 MARSHA with probe detection Test Item Value Reference Range Interpretation Comme nts SARS-CoV-2 (COVID-19) RNA [Presence] in Respiratory Detected No t-Detected specimen by MARSHA with probe detection (test code = 10188-8) Whether patient is employed in a healthcare setting (test code = 83873-4) Whether the patient has symptoms related to condition of interest (test code = 05345-9) Patient was hospitalized because of this condition (test code = 64574-5) Whether the patient was admitted to intensive care unit (ICU) for condition of interest (test code = 23837-6) Whether patient resides in a congregate care setting (test code = 84722-7) ECG 12 lrfh1195-15-80 17:04:06 Test Item Value Reference Range Interpretation Comments Ventricular rate (test code = 253) Atrial rate (test code = 255) NC interval (test code = 266) QRSD interval [...] of 30-NOV-2020 10:58,-No significant change was found[facility] Bvtyj0849-39-86 13:59:27EXAMINATION: CT ANGIOGRAM PE CHEST HISTORY: 89 [...] mild pulmonary edema.1D2RAD_PS02[facility] duplex venous lower gztdkofol0569-07-91 12:59:58EXAMINATION: US DUPLEX VENOUS LOWER EXTREMITY RIGHT [...] lower extremity named vessels as described above. [id number] Interface, Radiology Results 02/20/2021 8:03 AM CDT [...] lower extremity named vessels as described above. [id number] HospitalXR Chest 1 Sfwlbqaq0272-65-00 12:29:01 EXAMINATION: XR CHEST 1 VW PORTABLE [...] HospitalECG ED Preliminary Interpretation - Not an Mndrl1912-40-99 11:32:10 Osmel Fowler MD 02/20/2021 10:18 AMECG [...] and mastoidair cells are clear. Left pseudophakia. [facility], Radiant Results Inft User - 01/10/2021 8:57 [...] are clear. Left pseudophakia.IMPRESSIONNo acute intracranial abnormality. [facility] Brain Wo Ktjjjtrc9906-34-49 18:04:52 EXAMINATION: MRI BRAIN WO CONTRAST CLINICAL [...] No structural evidence of neurodegenerative disease. TW- [id number] Interface, Radiology Results [facility] 12/02/2020 1:08 PM CDT EXAMINATION: MRI [...] Nonspecific diffuse hypoperfusion.IMPRESSION:No structural evidence of neurodegenerative disease.[id number] HospitalPv carotid jctaem1201-29-21 02:56:00 [facility] Carotid Artery Duplex Report [address] [place] [address] For associate quality engineer purposes, the categorization of the degree of the stenosis of this exam is based on criteria described in the IAC carotid stenosis grading white paper( ww w.intersocietal.org/Vascular) and Shakira Angulo., Mary RuthB., et al. Carotid artery stenosis: davis-scale and Doppler US diagnosis--Society of Radiologists in Ultrasound Consensus Conference. Radiology. 2003 Nov; 229(2):340-6. Pat.Name: JUSTICE HARDY Pat.ID: [id number] .Date: 12/01/2020 Refer.MD: ANDREW CALIX MD Exam Time: 3:19:00 PM Study Type:Carotid Height: 64in Weight: 120lb BSA: 1.58 m2 Age: 7 1930,89Y Sex: MALE Sonogrphr: VINCENZO Leigh Pat. Stat.:Inpatient Room: [facility] 0850-A Tape Vol: GB, CPT - 4: 88510 Echo Event ID:[id number] Order ID: [id number] Reason for Study:Altered mental status. History of [...] [facility] Carotid Artery Duplex Report [address] [place] [address] For associate quality engineer purposes, the categorization of the degree of the stenosis of this examis based on criteria described in the IAC carotid stenosis grading white paper( www.intersocietal.org/Vascular) and Shakira Angulo., Zuri Ruth, et al. Carotid artery stenosis: davis-scale and Doppler US diagnosis--Society of Radiologists in Ultrasound Consensus Conference. Radiology. 2003 Nov; 229(2):340 -6. Pat.Name: JUSTICE HARDY Pat.ID: [id number] .Date: 12/01/2020 Refer.MD: ANDREW CALIX MD Exam Time: 3:19:00 PM Study Type:Carotid Height: 64in Weight: 120lb BSA: 1.58 m2 Age: 7 1930,89Y Sex: MALE Sonogrphr: VINCENZO Leigh Pat. Stat.:Inpatient Room: [address] Tape Vol: GB, CPT - 4: 32592 Echo Event ID:[id number] Order ID: [id number] Reason for Study:Altered mental status. History of [...] Signed 12/01/2020 09:56 PMZsolt Tosin MD, [facility] Tran[facility] Ech[facility] Complete, (w Contrast, Strain and 3D if needed) 2020-12-01 19:37:00 Echocardiography Report [address]Name: JUSTICE HARDY Pat.ID: [id number] .Date: 12/01/2020 Refer.MD: ANDREW CALIX MDExfay Time: 10:51:00 AM Study Type:Routine Echo Height: 64in Weight: 120lb BSA: 1.58 m2 Age: 7 1930,89Y Sex: MALE BP: 183/90 HR: 90 bpm Sonogrphr: ROSIE Mishra Pat. Stat.:Inpatient Room: [facility] Study Status:Final Echo Event ID:[id number] ID: [id number] Reason for Study:hx of TAVR History / [...] PA systolic p ressure. MEASUREMENTS: 2DParasternal Long Alvin Ao An 1.9 cm LVPWd0.94 cm Ao [...] 12/01/2020 2:38 PM CDT Echocardiography Report [address] [place] [address] Pat.Name: JUSTICE HARDY Pat.ID: [id number] .Date: 12/01/2020 Refer.MD: ANDREW CALIX MDExam Time: 10:51:00 AM Study Type:Routine Echo Height: 64in Weight: 120lb BSA: 1.58 m2 Age: 7 1930,89Y Sex: MALE BP: 183/90 HR: 90 bpm Sonogrphr: ROSIE Mishra Pat. Stat.:Inpatient Room: [facility] Study Status:Final Echo Event ID:[id number] Order ID: [id number] Reason for Study:hx of TAVR History / [...] estimate PA systolic pressure. MEASUREMENTS: 2DParasternal Long Alvin Ao An 1.9 cm LVPWd 0.94 cm [...] l/m/m2 Signed 12/01/2020 02:37 PMSherif Mara Magdaleno M.D.[facility] CT Head Wo Glcwjpxa4471-66-62 19:08:27EXAMINATION: CT HEAD WO CONTRAST CLINICAL HISTORY: [...] cells are clear. IMPRESSION: Noacute intracranial abnormalities. [facility]-[id number] Interface, Radiology Results - 11/30/2020 2:11 PM [...] air cells are clear.IMPRESSION:No acute intracranial abnormalities .[facility]-[id number] leukocytes automated count (number/volume)2020-09-28 05:25:00 Test Item Value Reference Range Interpretation Comments White Blood Count (test code = 6690-2) 10.37 4.8-10.8 [facility] [place] erythrocytes automated count (number/volume)2020-09-28 05:25:00 Test Item Value Reference Range Interpretation Comments Red Blood Count (test code = 789-8) 3.00 4.3-5.7 [facility] hemoglobin measurement (moles/volume)2020-09-28 05:25:00 Test Item Value Reference Range Interpretation Comments Hemoglobin (test code = 41418-4) 9.1 14.0-18.0 [facility] blood hematocrit (volume fraction)2020-09-28 05:25:00 Test Item Value Reference Range Interpretation Comments Hematocrit (test code = 4544-3) 26.0 38.2-49.6 [facility] erythrocyte mean corpuscular oyjbib4822-12-19 05:25:00 Test Item Value Reference Range Interpretation Comments Mean Corpuscular Volume (test code = 86.7 81-99 787-2) [facility] erythrocyte mean corpuscular hemoglobin (mass per erythrocyte)2020-09-28 05:25:00 Test Item Value Reference Range Interpretation Comments Mean Corpuscular Hemoglobin (test code 30.3 28-32 = 785-6) [facility] erythrocyte mean corpuscular hemoglobin concentration measurement (mass/volume)2020-09-28 05:25:00 Test Item Value Reference Range Interpretation Comments Mean Corpuscular Hemoglobin Concent 35.0 31-35 (test code = 786-4) [facility] TaylorRDW QfvIa-Vht1108-33-01 05:25:00 Test Item Value Reference Range Interpretation Comments Red Cell Distribution Width (test code 16.1 11.7-14.4 = 31932-5) [facility] Taylor[facility] blood platelet count (count/volume)2020-09-28 05:25:00 Test Item Value Reference Range Interpretation Comments Platelet Count (test code = 777-3) 253 140-360 [facility] Taylor[facility] blood segmented neutrophil count as percentage of total ujdgglyshh3021-58-43 05:25:00 Test Item Value Reference Range Interpretation Comments Neutrophils (%) (Auto) (test code = 77.9 38.7-80.0 92866-5) [facility] Taylor[facility] blood lymphocyte count as percentage ot total invcwjecyh8160-68-37 05:25:00 Test Item Value Reference Range Interpretation Comments Lymphocytes (%) (Auto) (test code = 12.3 18.0-39.1 736-9) [facility] Taylor[facility] blood monocyte count as percentage of total njspkqzfxf4561-30-50 05:25:00 Test Item Value Reference Range Interpretation Comments Monocytes (%) (Auto) (test code = 6.4 4.4-11.3 5905-5) [facility] Taylor[facility] blood eosinophil count as percentage of total bmzebwuccm8456-80-12 05:25:00 Test Item Value Reference Range Interpretation Comments Eosinophils (%) (Auto) (test code = 1.8 0.0-6.0 713-8) [facility] [facility] blood basophil count as percentage of total peelgerrro2882-79-63 05:25:00 Test Item Value Reference Range Interpretation Comments Basophils (%) (Auto) (test code = 0.4 0.0-1.0 706-2) [facility] TaylorFluoroscopic procedure less than one hour nqaeliba8581-51-66 05:25:00 Test Item Value Reference Range Interpretation Comments IM GRANULOCYTES % (test code = IM 1.2 0.0-1.0 GRANULOCYTES %) [facility] TaylorAutom[facility] blood neutrophil count 2020-09-28 05:25:00 Test Item Value Reference Range Interpretation Comments Neutrophils # (Auto) (test code = 8.1 2.1-6.9 751-8) [facility] TaylorBlood lymphocytes count (number/volume) 2020-09-28 05:25:00 Test Item Value Reference Range Interpretation Comments Lymphocytes # (Auto) (test code = 1.3 1.0-3.2 44175-3) [facility] TaylorBlood monocytes automated count (number/volume)2020-09-28 05:25:00 Test Item Value Reference Range Interpretation Comments Monocytes # (Auto) (test code = 742-7) 0.7 0.2-0.8 [facility] TaylorAutom[facility] blood eosinophil count 2020-09-28 05:25:00 Test Item Value Reference Range Interpretation Comments Eosinophils # (Auto) (test code = 0.2 0.0-0.4 711-2) [facility] TaylorAutom[facility] blood basophil count (count/volume)2020-09-28 05:25:00 Test Item Value Reference Range Interpretation Comments Basophils # (Auto) (test code = 704-7) 0.0 0.0-0.1 [facility] TaylorFluoroscopic procedure less than one hour jumzqrpo3609-32-15 05:25:00 Test Item Value Reference Range Interpretation Comments Absolute Immature Granulocyte (auto 0.12 0-0.1 (test code = Absolute Immature Granulocyte (auto) [facility] sodium [facility] (moles/volume)2020-09-28 05:25:00 Test Item Value Reference Range Interpretation Comments Sodium Level (test code = 2951-2) 132 136-145 [facility] potassium measurement (moles/volume)2020-09-28 05:25:00 Test Item Value Reference Range Interpretation Comments Potassium Level (test code = 2823-3) 3.3 3.5-5.1 [facility] chloride measurement (moles/volume)2020-09-28 05:25:00 Test Item Value Reference Range Interpretation Comments Chloride Level (test code = 2075-0) 106 98-107 [facility] plasma carbon dioxide, total measurement (moles/volume)2020-09-28 05:25:00 Test Item Value Reference Range Interpretation Comments Carbon Dioxide Level (test code = -8-9) [facility] anion bkp1172-77-47 05:25:00 Test Item Value Reference Range Interpretation Comments Anion Gap (test code = 68466-9) 9.3 8-16 [facility] urea nitrogen measurement (mass/volume)2020-09-28 05:25:00 Test Item Value Reference Range Interpretation Comments Blood Urea Nitrogen (test code = 18 7- 3094-0) [facility] creatinine measurement (mass/volume)2020-09-28 05:25:00 Test Item Value Reference Range Interpretation Comments Creatinine (test code = 2160-0) 0.83 0.72-1.25 [facility] plasma urea nitrogen/creatinine mass qhqrz7910-32-96 05:25:00 Test Item Value Reference Range Interpretation Comments BUN/Creatinine Ratio (test code = 12-22 3097-3) [facility] TaylorEstimated glomerular filtration rate (GFR) efnldxufkwfeb1700-00-18 05:25:00 Test Item Value Reference Range Interpretation Comments Estimat Glomerular > 60 See_Comment [Automat ed message] The Filtration Rate (test system which generated code = 110005086) this resul t transmitted reference range : 60-. The reference r duane was not used to int erpret this result as normal/abnormal . [facility] TaylorGlucose emnccktwsjd8800-02-15 05:25:00 Test Item Value Reference Range Interpretation Comments Glucose Level (test code = KLE7022) 104 74-118 [facility] calcium measurement (mass/volume)2020-09-28 05:25:00 Test Item Value Reference Range Interpretation Comments Calcium Level (test code = 19131-3) 7.4 8.4-10.2 [facility] plasma total bilirubin measurement (mass/volume)2020-09-28 05:25:00 Test Item Value Reference Range Interpretation Comments Total Bilirubin (test code = 1975-2) 0.7 0.2-1.2 [facility] TaylorFluoroscopic procedure less than one hour loyqytsi4492-94-38 05:25:00 Test Item Value Reference Range Interpretation Comments Aspartate Amino Transf (AST/SGOT) (test 74 5-34 code = Aspartate Amino Transf (AST/SGOT)) [facility] alanine aminotransferase measurement (enzymatic activity/volume)2020-09-28 05:25:00 Test Item Value Reference Range Interpretation Comments Alanine Aminotransferase (ALT/SGPT) 107 0-55 (test code = 1742-6) [facility] plasma protein measurement (mass/volume)2020-09-28 05:25:00 Test Item Value Reference Range Interpretation Comments Total Protein (test code = 2885-2) 4.2 6.5-8.1 [facility] plasma albumin measurement (mass/volume)2020-09-28 05:25:00 Test Item Value Reference Range Interpretation Comments Albumin (test code = 1751-7) 1.9 3.5-5.0 [facility] TaylorPlasma globulin measurement (mass/volume) 2020-09-28 05:25:00 Test Item Value Reference Range Interpretation Comments Globulin (test code = 57540-0) 2.3 2.3-3.5 [facility] albumin/globulin mass uogds3923-16-10 05:25:00 Test Item Value Reference Range Interpretation Comments Albumin/Globulin Ratio (test code = 0.8 0.8-2.0 1759-0) [facility] alkaline phosphatase measurement (enzymatic activity/volume)2020-09-28 05:25:00 Test Item Value Reference Range Interpretation Comments Alkaline Phosphatase (test code = 100 40-150 6768-6) [facility] TaylorTroponin I measurement by highly sensitive enzyme ktehwnonrxl9172-87-05 05:25:00 Test Item Value Reference Range Interpretation Comments Troponin I (test code = 79076-4) 0.109 0-0.300 [facility] SINGLE (PORTABLE)2020-09-26 10:41:00[facility] 1930 Sex: [place] [address] Patient Name: JUSTICE HARDY MR #: [id number] : 1930 Age/Sex: 89/M Req #: [id number] Adm Physician: ZACHARIAH SAINI MD Ordered by: ARASH CASTORENA MD Report #: [id number] Location: MED/SURG Room/Bed: [facility] Procedure: [id number] DX/CHEST SINGLE (PORTABLE) Exam Date: 09/26/20 Exam [...] ARASH CASTORENA MDABDOMEN 2 VIEW 2020-09-26 09:13:00 [facility] : 1930 Sex: M [facility] [address] [place] [address] Patient Name: JUSTICE HARDY MR #: [id number] : 1930 Age/Sex: 89/M Req #: [id number] Adm Physician: ZACHARIAH SAINI MD Ordered by: JEANNINE SAINI MD Report #: [id number] Location: MED/SURG Room/Bed: [facility] Procedure: [id number] DX/ABDOMEN 2 VIEW Exam Date: 09/26/20 Exam [...] Natriuretic Peptide (test code = 50.2 0-100 09931-2) [facility] amylase measurement (enzymatic activity/volume)2020-09-26 05:17:00 Test Item Value Reference Range Interpretation Comments Amylase Level (test code = 1798-8) 98 25-125 [facility] lipase measurement (enzymatic activity/volume)2020-09-26 05:17:00 Test Item Value Reference Range Interpretation Comments Lipase (test code = 3040-3) 98 8-78 [facility] TaylorABDOMEN 2 [id number] 23:59:00 [facility] : 1930 Sex: [place] [address] Patient Name: JUSTICE HARDY MR #: [id number] : 1930 Age/Sex: 89/M Req #: [id number] Adm Physician: ZACHARIAH SAINI MD Ordered by: JEANNINE SAINI MD Report #: [id number] Location: MED/SURG Room/Bed: [facility] Procedure: [id number] DX/ABDOMEN 2 VIEW Exam Date: 09/24/20 Exam Time: 2329 REPORT STATUS: Signed EXAM: Abdomen Radiograph 2 View(s) INDICATION: bloody stool [id number] 2330 Y COMPARISON: 09/15/2019 FINDINGS: Prosthetic heart [...] levels are seen in the right hemiabdomen. [place] lucency in the upper abdomen on the upright view projecting over the T12 vertebral body , likely represents pneumoperitoneum IMPRESSION: 1. Overall appearance of postsurgical ileus with diffuse mildly dilated small bowel and distended air distended colon to the level of the rectum. Distal obstruction is not excluded. Recommend radiographic follow-up until resolution. 2. [place] lucency projecting over the T12 vertebral body may represent pneumoperitoneum as seen on recent chest CT, possibly related to recent surgery. Signed by: Patricia Wheat MD on 09/25/2020 12:48 AM Dictated By: TIESHA WHEAT MD Transcribed By: AYDEN on 09/25/2047 COPY TO: JEANNINE SAINI MDSerum or plasma magnesium measurement (mass/volume)2020-09-23 16:40:00 Test Item Value Reference Range Interpretation Comments Magnesium Level (test code = 80208-4) 1.5 1.3-2.1 [facility] TaylorFluoroscopic procedure less than one hour iedcdnhn4212-05-84 08:51:00 Test Item Value Reference Range Interpretation Comments Differential Total Cells Counted (test 100 code = Differential Total Cells Counted) [facility]100 leukocytes 2020-09-22 08:51:00 Test Item Value Reference Range Interpretation Comments Neutrophils % (Manual) (test code = 86 40-74 91898-0) [facility] blood band neutrophils form/100 rbvckmllyu8044-87-95 08:51:00 Test Item Value Reference Range Interpretation Comments Band Neutrophils % (test code = 764-1) 0 [facility] blood lymphocytes/100 leukocytes 2020-09-22 08:51:00 Test Item Value Reference Range Interpretation Comments Lymphocytes % (Manual) (test code = 7 19-48 737-7) [facility] blood monocytes/100 leukocytes 2020-09-22 08:51:00 Test Item Value Reference Range Interpretation Comments Monocytes % (Manual) (test code = 7 3.4-9.0 744-3) [facility] TaylorAutomated reticulocyte count as percentage of total ikdzxctbjull9197-66-72 05:15:00 Test Item Value Reference Range Interpretation Comments Percent Reticulocyte Count (test code = 1.5 0.8-2.2 33739-3) [facility] iron measurement (mass/volume)2020-09-21 05:15:00 Test Item Value Reference Range Interpretation Comments Iron Level (test code = 2498-4) 26 65-175 [facility] iron binding capacity measurement (mass/volume)2020-09-21 05:15:00 Test Item Value Reference Range Interpretation Comments Total Iron Binding Capacity (test code 193 261-048 = 2500-7) [facility] iron saturation measurement (mass fraction)2020-09-21 05:15:00 Test Item Value Reference Range Interpretation Comments Percent Iron Saturation (test code = 50 2502-3) [facility] plasma transferrin measurement (mass/volume)2020-09-21 05:15:00 Test Item Value Reference Range Interpretation Comments Transferrin (test code = 3034-6) 138 174-364 [facility] TaylorBlood cobalamin (vitamin B12) measurement (mass/volume)2020-09-21 05:15:00 Test Item Value Reference Range Interpretation Comments Vitamin B12 Level (test code = 37054-7) 591 213-816 [facility] folate measurement (mass/volume)2020-09-21 05:15:00 Test Item Value Reference Range Interpretation Comments Folate (test code = 2284-8) 17.8 >3.0 [facility] TaylorCT CHEST Z1334-99-78 21:42:00 [facility] : 1930 Sex: [place] [address] Patient Name: JUSTICE HARDY MR #: [id number] : 1930 Age/Sex: 89/M Req #: [id number] Adm Physician: ZACHARIAH SAINI MD Ordered by: AJ FLYNN DO Report #: [id number] Location: MED/SURG Room/Bed: [facility] Procedure: [id number] CT/CT CHEST W Exam Date: 09/20/20 Exam Time: 2114 REPORT STATUS: Signed EXAM: CT Chest WITH contrast 09/20/2020 9:15 PM INDICATION: PE [id number] 2114 COMPARISON: None TECHNIQUE: Chest was scanned [...] 09/20/202199 COPY TO: AJ FLYNN DO Phosphorus eercyiezhtv6921-66-59 03:45:00 Test Item Value Reference Range Interpretation Comments Phosphorus Level (test code = TVK1590) 0.8 2.3-4.7 [facility] TaylorCH[facility] SINGLE (PORTABLE)2020-09-17 15:26:00[facility] : 1930 Sex: [place] [address] Patient Name: JUSTICE HARDY MR #: [id number] : 1930 Age/Sex: 89/M Req #: [id number] Adm Physician: ZACHARIAH SAINI MD Ordered by: ZACHARIAH SAINI MD Report #: [id number] Location: ICU Room/Bed: ICU [facility] Procedure: [id number] DX/CHEST SINGLE (PORTABLE) Exam Date: 09/17/20 Exam Time: 1450 REPORT STATUS: Signed EXAMINATION: CHEST SINGLE (PORTABLE) INDICATION: SOB, tachypnea [id number] 1450 COMPARISON: Prior x-rays including most recent [...] (PT) in platelet poor plasma by coagulation twrsj2882-36-53 10:55:00 Test Item Value Reference Range Interpretation Comments Prothrombin Time (test code = 5902-2) 16.5 11.9-14.5 [facility] TaylorINR in Platelet poor plasma by Coagulation sxlta6963-73-30 10:55:00 Test Item Value Reference Range Interpretation Comments Prothromb Time International Ratio 1.25 (test code = 6301-6) [facility] TaylorCHES XRAY LINE ZSDUKPPWL4107-50-66 20:57:00[facility] : 1930 Sex: [place] [address] Patient Name: JUSTICE HARDY MR #: [id number] : 1930 Age/Sex: 89/M Req #: [id number] Adm Physician: ZACHARIAH SAINI MD Ordered by: ZACHARIAH SAINI MD Report #: [id number] Location: ICU Room/Bed: ICU [facility] Procedure: [id number] DX/CHEST XRAY LINE PLACEMENT Exam Date: 09/16/20 [...] AYDEN on 09/16/202101 COPY TO: ZACHARIAH SAINI [facility] S[facility])2020-09-15 14:55:00 [facility] : 1930 Sex: [place] [address] Patient Name: JUSTICE HARDY MR #: [id number] : 1930 Age/Sex: 89/M Req #: [id number] Adm Physician: ZACHARIAH SAINI MD Ordered by: DHARMESH LINARES MD Report #: [id number] Lo cation: MED/SURG Room/Bed: [facility] Procedure: [id number] DX/CHEST SINGLE (PORTABLE) Exam Date: 09/15/20 Exam [...] Signed By: SCHUYLER GUERRA MD on 09/15/20 557 Transcribed By: AYDEN on 09/15/201456 COPY TO: DHARMESH LINARES MDABDOMEN ACUTE SERIES W/PA CXR 2020-09-15 10:17:00 [facility] : 1930 Sex: [place] [address] Patient Name: JUSTICE HARDY MR #: [id number] : 1930 Age/Sex: 89/M Req #: [id number] Adm Physician: ZACHARIAH SAINI MD Ordered by: DHARMESH LINARES MD Report #: [id number] Lo cation: MED/SURG Room/Bed: [facility] Procedure: [id number] DX/ABDOMEN ACUTE SERIES W/PA CXR Exam Date: [...] on 09/15/20 1020 COPY TO: DHARMESH LINARES [facility] ACUTE SERIES W/TENZIN [id number] 10:50:00 [facility] : 1930 Sex: [place] [address] Patient Name: JUSTICE HARDY MR #: [id number] : 1930 Age/Sex: 89/M Req #: [id number] Adm Physician: ZACHARIAH SAINI MD Ordered by: DHARMESH LINARES MD Report #: [id number] Lo cation: MED/SURG Room/Bed: [facility] Procedure: [id number] DX/ABDOMEN ACUTE SERIES W/PA CXR Exam Date: 09/14/20 Exam Time: 1020 REPORT STATUS: Signed X-ray abdomen acute series with 2 views of the abdomen and a single view of the chest INDICATION: sbo [id number] 1020 Comparison: X-ray dated 09/14/2019. Discussion: Lungs [...] code = 2157-6) 385 30-200 [facility] creatine kinase MB measurement (mass/volume)2020-09-13 11:24:00 Test Item Value Reference Range Interpretation Comments Creatine Kinase MB (test code = 2.90 0-5.0 78712-0) [facility] TaylorABDOMEN 2 [id number] 09:26:00 [facility] DOB: 1930 Sex: M [place] [address] Patient Name: JUSTICE HARDY MR #: [id number] : 1930 Age/Sex: 89/M Req #: [id number] Adm Physician: ZACHARIAH SAINI MD Ordered by: SHANNAN CERVANTES MD Report #: [id number] Location: MED/SURG Room/Bed: [facility] Procedure: [id number] DX/ABDOMEN 2 VIEW Exam Date: 09/13/20 Exam [...] [facility] TaylorFluoroscopic procedure less than one hour lktolngu7679-64-33 19:02:00 Test Item Value Reference Range Interpretation Comments Coronavirus (PCR) (test code = NOT DETECTED NOTDETECTED Coronavirus (PCR)) [facility] TaylorCT ABD/PEL WO CFPNPMDG-[id number] 17:30:00[facility] : 1930 Sex: [place] [address] Patient Name: JUSTICE HARDY MR #: [id number] : 1930 Age/Sex: 89/M Req #: [id number] Adm Physician: Ordered by: SHANNAN CERVANTES MD Report #: [id number] [facility] Room/Bed: Procedure: [id number] HOPD/CT ABD/PEL WO CONTRAST-HOPD Exam Date: 09/12/20 Exam Time: 1658 REPORT STATUS: Signed EXAM: CT Abdomen and Pelvis WITHOUT contrast INDICATION: abd pain, nausea, retching [id number] 1657 COMPARISON: CT abdomen and pelvis on [...] 09/12/201744 COPY TO: SHANNAN CERVANTES MDCT ABDOMEN/PELVIS [id number] 15:20:00 [place] [address] Patient Name: JUSTICE HARDY MR #: [id number] : 1930 Age/Sex: 89/M Req #: [id number] [facility] Physician: Mario boyd by: JEANNINE SAINI MD Report #: [id number] Location: CT Room/Bed: Procedure: [id number] CT/CT ABDOMEN/PELVISWO Exam Date: 03/02/20 Exam Time: [...]
--- NOTE | 2021-07-27 13:44 | RAD REPORT ---
EXAM DESCRIPTION: CT - Head C Spine Mpr Wo Con - 07/27/2021 1:31 pm CLINICAL HISTORY: Head and neck injury status post fall. Head and neck pain COMPARISON: July 16, 2021 TECHNIQUE: Computed axial tomography of the head and cervical spine was obtained. Sagittal and coronal reconstruction was performed. All CT scans are performed using dose optimization technique as appropriate and may include automated exposure control or mA/KV adjustment according to patient size. FINDINGS: An intracranial bleed is not seen. The ventricles are normal in caliber. An extra-axial fl uid collection is not noted.Fluid within the visualized sinuses and mastoids is not seen A cervical fracture is not visualized. No dislocation is noted. Spondylosis involves the cervical spi ne. IMPRESSION: No acute intracranial abnormality is seen. A cervical fracture is not visualized. If the patient continues to have symptoms to suggest intracra nial /spinal cord pathology then MRI would be recommended
--- NOTE | 2021-07-27 13:57 | EDPHYS ---
Physician Documentation [facility] Name: Benito Castaneda Age: 89 yrs Sex: Male : 1930 Arrival Date: 07/27/2021 Time: 13:21 Bed 3 Private MD: ED Physician Domo Stewart HPI: 07/27 13:54 This 89 yrs old Male presents to ER via EMS with complaints of fall. kb 13:54 Details of fall: The patient fell from an upright position. Onset: The symptoms/episode kb began/occurred just prior to arrival. Associated injuries: The patient sustained injury to the head, hematoma. Severity of symptoms: At their worst the symptoms were mild, moderate, in the emergency department the symptoms are unchanged. The patient has not experienced similar symptoms in the past. The patient has not recently seen a physician. Pt states he was working on a table and it broke causing him to fall and hit his head. Denies loc. . 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 - Social history:: Smoking status: Patient denies any tobacco usage or history of. - Immunization history: Last tetanus immunization: - up to date. ROS: 13:53 Constitutional: Negative for fever, chills, and weight loss. kb 13:53 Skin: Positive for hematoma, of the left side of the back of head. 13:53 All other systems are negative. Exam: 13:54 Constitutional: This is a well developed, well nourished patient who is awake, alert, kb and in no acute distress. Eyes: Pupils equal round and reactive to light, extra-ocular motions intact. Lids and lashes normal. Conjunctiva and sclera are non-icteric and not injected. Cornea within normal limits. Periorbital areas with no swelling, redness, or edema. ENT: Moist Mucous membranes Cardiovascular: Regular rate and rhythm with a normal S1 and S2. No gallops, murmurs, or rubs. No pulse deficits. Respiratory: Respirations even and unlabored. No increased work of breathing. Talking in full sentences MS/ Extremity: Pulses equal, no cyanosis. Neurovascular intact. Full, normal range of motion. Neuro: Awake and alert, GCS 15, oriented to person, place, time, and situation. Moves all extremities. Normal gait. Psych: Awake, alert, with orientation to person, place and time. Behavior, mood, and affect are within normal limits. 13:54 Head/face: Noted is no obvious of injury or deformity except hematoma, that is mild, of the left side of the back of head. 13:54 Skin: hematoma to left side of head. Vital Signs: 13:25 BP 146 / 63; Pulse 74; Resp 16; Temp 98.8(O); Pulse Ox 98% on R/A; Weight 54.43 kg; ww Height 5 ft. 4 in. (162.56 cm); Pain 2/10; 14:15 BP 143 / 63; Pulse 71; Resp 15; Pulse Ox 98% ; jl7 13:25 Body Mass Index 20.60 (54.43 kg, 162.56 cm) ww [place] Coma Score: 14:15 Eye Response: spontaneous(4). Verbal Response: oriented(5). Motor Response: obeys jl7 commands(6). Total: 15. Trauma Score (Adult): 13:25 Eye Response: spontaneous(1); Verbal Response: oriented(1); Motor Response: obeys ww commands(2); Systolic BP: > 89 mm Hg(4); Respiratory Rate: 10 to 29 per min(4); [place] Score: 15; Trauma Score: 12 MDM: 13:22 Patient medically screened. kb 13:54 Data reviewed: vital signs, nurses notes. Data interpreted: Pulse oximetry: on room air kb is 98 %. Interpretation: normal. 13:54 Counseling: I had a detailed discussion with the patient and/or guardian regarding: the kb historical points, exam findings, and any diagnostic results supporting the discharge/admit diagnosis, radiology results, the need for outpatient follow up, a family practitioner, to return to the emergency department if symptoms worsen or persist or if there are any questions or concerns that arise at home. 07/27 13:24 Order name: CT Head C Spine; Complete Time: 13:47 kb Administered Medications: No medications were administered Disposition: 15:15 Co-signature as Attending Physician, Domo Stewart MD I agree with the assessment and kdr plan of care. Disposition Summary: 07/27/21 13:56 Discharge Ordered Location: Home kb Condition: Stable kb Diagnosis - Unspecified injury of head, initial encounter kb - Hematoma of scalp kb Followup: kb - With: Emergency Department - When: As needed - Reason: Worsening of condition Followup: kb - With: Private Physician - When: 2 - 3 days - Reason: Recheck today's complaints, Continuance of care, Re-evaluation by your physician Discharge Instructions: - Discharge Summary Sheet kb - Hematoma, Yykr-zi-Joyj kb - Head Injury, Adult, Xvsz-ay-Hmxx kb Forms: - Medication Reconciliation Form kb - Thank You Letter kb - Antibiotic Education kb - Prescription Opioid Use kb Signatures: Dispatcher [employer] EDMS Lynn Luke, STEELSCOPE OPERATOR-C STEELSCOPE OPERATOR-Domo Amaya MD MD kdr Leal, Jahala, RN RN jl7 Krystle Reynaga, RN RN ww
--- NOTE | 2021-07-27 13:57 | ER ---
Nurse's Notes [facility] Name: Benito Castaneda Age: 89 yrs Sex: Male : 1930 Arrival Date: 07/27/2021 Time: 13:21 Bed 3 Private MD: Diagnosis: Unspecified injury of head, initial encounter;Hematoma of scalp Presentation: 07/27 13:25 Chief complaint: Patient states: Moving a table and fell backwards striking the back of ww his head. Patient denies any LOC. Admits to being on Eliquis. Coronavirus screen: Vaccine status: Patient reports receiving the 2nd dose of the covid vaccine. Client denies travel out of the [place] in the last 14 days. Ebola Screen: Patient negative for fever greater than or equal to 101.5 degrees Fahrenheit, and additional compatible Ebola Virus Disease symptoms Patient denies exposure to infectious person. Patient denies travel to an Ebola-affected area in the 21 days before illness onset. Initial Sepsis Screen: Does the patient meet any 2 criteria? No. Patient's initial sepsis screen is negative. Does the patient have a suspected source of infection? No. Patient's initial sepsis screen is negative. Risk Assessment: Do you want to hurt yourself or someone else? Patient reports no desire to harm self or others. Onset of symptoms was July 27, 2021. 13:25 Method Of Arrival: EMS: [facility] 13:25 Acuity: ANT 3 13:25 Care prior to arrival: None. Mechanism of Injury: Fall from standing position. Trauma ww event details: Injury occurred: July 27, 2021. Triage Assessment: 13:25 General: Appears in no apparent distress. comfortable, Behavior is calm, cooperative. ww Pain: Complains of pain in left parietal area, right parietal area and occipital area. EENT: No deficits noted. Neuro: Level of Consciousness is awake, alert, obeys commands, Oriented to person, place, time, situation, Back Hoe 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 are equal bilaterally Speech is normal. Cardiovascular: Capillary refill < 3 seconds Patient's skin is warm and dry. Respiratory: Airway is patent Respiratory effort is even, unlabored, Respiratory pattern is regular, symmetrical. GI: No signs and/or symptoms were reported involving the gastrointestinal system. Abd is soft and non tender X 4 quads. : No deficits noted. No signs and/or symptoms were reported regarding the genitourinary system. Derm: Skin is intact, is fragile, is thin. Trauma Activation: Physician: ED Physician; Name: Dr. 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 - Social history:: Smoking status: Patient denies any tobacco usage or history of. - Immunization history: Last tetanus immunization: - up to date. Screenin:28 Abuse screen: Denies threats or abuse. Denies injuries from another. Nutritional ww screening: No deficits noted. Tuberculosis screening: No symptoms or risk factors identified. Fall Risk None identified. Primary Survey: 13:25 NO uncontrolled hemorrhage observed. A: The patient is alert. Airway: patent. ww Breathing/Chest: Respiratory pattern: regular, Respiratory effort: unlabored. Circulation: Cardiac rhythm: sinus rhythm Skin color: pink. Disability Alert. Exposure/Environment: There is no evidence of uncontrolled external bleeding. No obvious injuries are noted at this time. Reassessment Breathing/Chest Respiratory pattern Regular Circulation Color [place] Disability Alert. Assessment: 13:25 General: Appears in no apparent distress. comfortable. Pain: Complains of pain in left ww parietal area, right parietal area and occipital area. Neuro: Level of Consciousness is awake, alert, obeys commands, Oriented to person, place, time, situation. 13:30 General: See triage. jl7 14:15 Reassessment: Patient appears in no apparent distress at this time. No changes from jl7 previously documented assessment. Patient and/or family updated on plan of care and expected duration. Pain level reassessed. Patient is alert, oriented x 3, equal unlabored respirations, skin warm/dry/pink. Vital Signs: 13:25 BP 146 / 63; Pulse 74; Resp 16; Temp 98.8(O); Pulse Ox 98% on R/A; Weight 54.43 kg; ww Height 5 ft. 4 in. (162.56 cm); Pain 2/10; 14:15 BP 143 / 63; Pulse 71; Resp 15; Pulse Ox 98% ; jl7 13:25 Body Mass Index 20.60 (54.43 kg, 162.56 cm) ww Aurelia Coma Score: 14:15 Eye Response: spontaneous(4). Verbal Response: oriented(5). Motor Response: obeys jl7 commands(6). Total: 15. Trauma Score (Adult): 13:25 Eye Response: spontaneous(1); Verbal Response: oriented(1); Motor Response: obeys ww commands(2); Systolic BP: > 89 mm Hg(4); Respiratory Rate: 10 to 29 per min(4); Aurelia Score: 15; Trauma Score: 12 ED Course: 13:21 Patient arrived in ED. jl7 13:22 Lynn Luke FNP-C [facility] kb 13:22 Domo Stewart MD is Attending Physician. kb 13:25 Krystle Reynaga, RN is Primary Nurse. ww 13:25 Arm band placed on left wrist. ww 13:25 Patient maintains SpO2 saturation greater than 95% on room air. ww 13:27 Triage completed. ww 13:28 Patient has correct armband on for positive identification. Fall risk band placed. ww Placed in gown. Bed in low position. Call light in reach. Side rails up X2. playground monitor on. Pulse ox on. NIBP on. Notified Nurse Practitioner and/or Physician New Car Get Ready Mechanic of trauma alert. Warm blanket given. 13:29 Inserted saline lock: 22 gauge in right antecubital area, using aseptic technique. ww 13:31 CT Head C Spine In Process Unspecified. EDMS 14:30 IV discontinued, intact, bleeding controlled, No redness/swelling at site. Pressure jl7 dressing applied. 14:30 No provider procedures requiring assistance completed. jl7 Administered Medications: No medications were administered Intake: 14:40 PO: 0ml; IV: 0ml; Tubes: 0ml (); Total: 0ml. jl7 Output: 14:40 Urine: 500ml; Gastric: 0ml; Stool: 0; EBL: 0ml; Drainage: 0ml; Other: 0; Total: 500ml. jl7 Outcome: 13:25 Patient's length of stay was not longer than 2 hours. chris 13:56 Discharge ordered by . elliot 14:30 Discharged to home via wheelchair, with family. jl7 14:30 Condition: stable 14:30 Discharge instructions given to patient, family, Instructed on discharge instructions, follow up and referral plans. Demonstrated understanding of instructions, follow-up care. 14:30 Patient left the ED. jl7 Signatures: Dispatcher [employer] EDMS Lynn Luke, JOSE-Jimenez Tao RN RN jlKrystle Grant RN RN chris Corrections: (The following items were deleted from the chart) 14:46 14:30 BP 143 / 63; Pulse 71bpm; Resp 15bpm; Pulse Ox 98%; jl7 jlCecy 14:57 14:57 Patient left the ED. jl7 jl7
[2021-07-27 15:03] VITALS: TEMP 98.8; O2SAT 98
[2021-07-27 15:05] VITALS: BP 143/63
== END 2021-07-27 14:57 | disposition home or self-care (01) ==
LOC: ER 13:17
DX: S00.03XA Contusion of scalp, initial encounter (principal); W18.39XA Other fall on same level, initial encounter; I10 Essential (primary) hypertension; Z88.8 Allergy status to other drugs, medicaments and biological substances; Z95.4 Presence of other heart-valve replacement; Z95.818 Presence of other cardiac implants and grafts
CPT/HCPCS: 70450; 72125; 99285

== ENCOUNTER 2021-08-28 16:17 | Emergency (ER) | payer OTHER, BC ==
--- OUTSIDE RECORDS SUMMARY | 2021-08-28 16:24 | XMS REPORT | Continuity of Care Document ---
:1930 Author Organization [facility] t Address [address] [place] [address] Care Team Providers Name Role Phone Bebeto GARCIA, Jaclyn Primary Care Physician Hugo GARCIA, Trav Fernandez. Attending Clinician [phone] Fifi GARCIA, O. Attending Clinician Renee GARCIA Attending Clinician 2030_Biopsy Attending Clinician Unavailable Rebecca Lopez MA Attending Clinician Unavailable Bebeto GARCIA Attending Clinician Fawad GARCIA Attending Clinician Dusty Fowler MD Attending Clinician Ivory DAHL Attending Clinician Unavailable Pob, Lab Main Attending Clinician Unavailable Anthony GARCIA, S Attending Clinician Sherrill CRUZ Attending Clinician Unavailable Doctor Unassigned, Name Attending Clinician Unavailable Singer AGUIRRE Attending Clinician May Peralta Attending Clinician Ivory Whaley Attending Clinician Ivory CARDONA Attending Clinician Unavailable Олег Parkinson MD Attending Clinician SAINI Attending Clinician Unavailable SAINI Attending Clinician Unavailable FIFI Admitting Clinician Unavailable 2030_Biopsy Admitting Clinician Unavailable SAINI Admitting Clinician Unavailable Payers Payer Name Policy Type Policy Effective Date Expiration Date Sour ce Number BCBS FED SHERIDAN [id number] 2015 00:00:00 MEDICARE PART A [id number] 1996 \T\ B 00:00:00 Oziel Cross [id number] [address] 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 00:00: Ho spita ) in ) in 00 l COVID-19 COVID-19 Disease Active Metho di virus virus 1-09 st detected detected 00:00: Hospit a 00 l Dizzy Dizzy Disease Active Methodi 1-09 st 00:00: Hospita 00 l Pneumonia Pneumonia Disease Active 2020-06 Met [facility] 0-14 st 00:00: Hospita 00 l Sleep Sleep Disease Active 2020-06 [facility] apnea apnea 0-14 st 00:00: Hospita 00 l 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 - obstructio Patien t n [facility] Nausea Problem Active [facility] Hypomagnes Problem Active [facility] emia [facility] Leukocytos Problem Active [facility] is [facility] Hypertensi Problem Active [facility] on [facility] History of Problem Active [facility] arterioscl [facility] - erotic Patient cardiovas s [facility] Abdominal Problem Active [facility] pain [facility] No known No known Disease Unive rs active active ity of problems problems [facility] Allergies, Adverse Reactions, Alerts Allergy [...] ist. Iodine Allergy [facility] 00:[facility]: Patient e 00 [facility] Doxazosi Allergy Active 2018-[address] [facility] [address] [facility]: Patient e 00 [facility] doxazosi DA Active [facility] n [facility] iodine DA Active [facility] NO KNOWN Drug Active Univers ALLERGIE Class ity of S [facility] Family History Family Member Diagnosis Comments Start Date Stop Date Source Natural [facility] father Heart disease [facility] Natural father Hypertension [facility] Natural mother Alzheimer's disease [facility] Natural sister Other [facility] Social History Social Habit Start Date Stop Date Quantity Comments Source Exposure to Not sure University SARS-CoV-2 (event) [facility] History of tobacco Smoker Method ist use Hospital History SDOH Muslim Alcohol Frequency Hospita l History SDOH Muslim Alcohol Std Drinks Hospit al History SDMD Muslim Alcohol Binge Hospital Alcohol intake 2021-01-10 2021-01-10 Current University 00:00:00 00:00:00 non-drinker of [facility] alcohol (finding) Branch Tobacco use and 2021-01-10 2021-01-10 Never used Universit y of exposure 00:00:00 00:00:00 [facility] Alcohol Comment 2017-12-10 2017-12-10 ocassional Muslim 00:00:00 00:00:00 Hospital Cigarettes smoked 2017-08-07 2017-08-07 [facility] current (pack per 00:00:00 00:00:00 Hospita l day) - Reported Cigarette 2017-08-07 2017-08-07 Muslim pack-years 00:00:00 00:00:00 Hospital Sex Assigned At [birth year] Universit y of 00:00:00 00:00:00 [facility] Smoking Status Start Date Stop Date Source Never smoker [facility] Ex-smoker 2017-08-07 00:00:00 2017-08-07 00:00:00 [facility] Medications Ordered Filled Start Stop Current Ordering Indication Dosage Frequency Signature Comments Components Source Medication Medication Date Date Medication? Clinician (SIG) Name Name ergocalcife 2021- Yes 60261M Q7D Take 1 M ethodi rol [address] (VITAMIN 00:00: 05:59 (50,000 Hospi ta D2) 50,000 00 :00 Units l unit total) by capsule mouth once a week for 30 days. traZODone Yes 50mg Q.5D Take 50 mg Me thodi (DESYREL) 1-[address] 50 MG 12:51: (two) Hospita tablet 03 times a l day. LORAZepam 2022-0 Yes .5mg Q8H Take 0.5 Meth marcella (ATIVAN) 1-[address] 0.5 MG 12:51: mouth Hospita tablet 03 every 8 l (eight) hours as needed for anxiety. ascorbic 0 2021- Yes 500mg QD Take 1 Metho di acid, [address] vitamin C, 00:00: 05:59 (500 mg Hos peter (VITAMIN C) 00 :00 total) by l 500 MG mouth tablet daily for 30 days. vitamin E 2021- Yes 400U QD Take 1 Metho di 400 UNIT 07-[address] capsule 00:00: 05:59 (400 Units Hos peter 00 :00 total) by l mouth daily for 30 days. zinc 2021- Yes 1{capsu QD Take 1 Methodi sulfate 15 15 le} capsule by st (ZINCATE) 00:00: 05:59 mouth Hospit a 50 mg zinc 00 :00 daily for l (220 mg) 30 days. capsule apixaban Yes 2.5mg Q.5D Take 2.5 Meth marcella (ELIQUIS) 1-[address] 2.5 mg 12:51: mouth 2 Hospita tablet 23 (two) l times a day. Indication : DVT, pulmonary embolism. finasteride Yes 5mg QD Take 5 mg M ethodi (PROSCAR) 5 1-[address] mg tablet 12:51: daily. Hospit a 23 l tamsulosin 0 Yes .4mg Q.5D Take 0.4 Met hodi (FLOMAX) 1-[address] 0.4 mg 12:51: mouth 2 Hospita capsule 23 (two) l times a day. ipratropium 0 Yes 1{spray 1 spray Methodi (ATROVENT) 1-14 } into each st 21 mcg 12:51: nostril as Hospi ta (0.03 %) 23 needed for l nasal spray rhinitis. sucralfate 0 Yes 1g Q.25D Take 1 g Me thodi (CARAFATE) 1-[address] 1 gram 12:51: (four) Hospita tablet 23 times a l day. Patient takes differentl y: 1g by mouth as needed traZODone Yes 50mg QD Take 50 mg Me thodi (DESYREL) -[address] 50 MG 12:51: nightly. Hospita tablet 23 l aspirin Yes 81mg QD Take 81 mg Meth marcella (ECOTRIN) [address] 81 MG 12:51: daily. Hospita enteric 23 l coated tablet albuterol 2021- Yes 2{puff} Q.25D Inhale 2 Methodi (PROAIR 07-[address] HFA) 90 00:00: 05:59 every 4 Hospit a mcg/actuati 00 :00 (four) l on inhaler hours while awake for 30 days. famotidine 2021- Yes 20mg Q.5D Take 1 Meth marcella (PEPCID) 20 07-13 tablet (20 s t MG tablet 00:00: 05:59 mg total) Ho spita 00 :00 by mouth 2 l (two) times a day for 30 days. fluticasone 2021- Yes QD Inhale 1 M ethodi furoate-gabriel 07-13 inhalation s t anteroL 00:00: 05:59 s once Hospita (BREO 00 :00 daily for l ELLIPTA) 30 days. 200-25 mcg/dose blister with device powder for inhalation bisacodyL 2021- No 10mg QD Insert 1 Met hodi (Dulcolax, 07-[address] bisacody,) 00:00: 05:59 y (10 mg H ospita 10 mg 00 :00 total) l suppository into the rectum daily for 30 days. docusate 2021- No 100mg Q12H Take 1 Metho di sodium 07-[address] (COLACE) 00:00: 05:59 (100 mg Hospi ta 100 MG 00 :00 total) by l capsule mouth every 12 (twelve) hours for 30 days. polyethylen 2021- No 2000mL Take 2,000 Methodi e glycol 07-01 01-[address] (Golytely) 00:00: 05:59 mouth once Hospita 236-22.74-6 00 :00 for 1 l .74 -5.86 dose. gram solution lisinopriL 2020-06 No 40mg QD Take 40 mg Methodi (PRINIVIL) 0-26 10-[address] 40 mg 17:41: 00:00 daily. Hospita tablet 05 :00 l amLODIPine 2020-06 No 5mg QD Take 5 mg M ethodi (NORVASC) 5 0-26 10-[address] mg tablet 17:41: 00:00 daily. Hospi ta 05 :00 l lisinopriL 2020-06 Yes 10mg QD Take 1 Metho di (PRINIVIL) 0-26 tablet (10 st 10 mg 00:00: mg total) Hospita tablet 00 by mouth l daily for 30 days. carvediloL 2020-06 No 25mg Q.5D Take 25 mg Methodi (COREG) 25 0-25 10-[address] MG tablet 17:41: 00:00 (two) Hospit a 28 :00 times a l day with meals. lisinopriL 2020-06 No 10mg Q.5D Take 10 mg Methodi (PRINIVIL) 0-25 10-[address] 10 mg 17:41: 00:00 (two) Hospita tablet 28 :00 times a l day. benzonatate 2020-06 No 100mg Q6H Take 1 Me thodi (TESSALON) 0-25 11-[address] 100 MG 00:00: 05:59 (100 mg Hospita capsule 00 :00 total) by l mouth every 6 (six) hours as needed for cough for up to 30 days. hydrocortis 2020-06- No Q.5D Apply Meth marcella one 1 % 0-25 11-[address] cream 00:00: 05:59 2 (two) Hospita 00 :00 times a l day as needed for irritation for up to 30 days. isosorbide 2020-06 No 20mg Q.[id number] Take 1 Methodi dinitrate 0-25 11-25 [id number] tablet (20 st (ISORDIL) 00:00: 05:59 3D mg total) Ho spita 20 MG 00 :00 by mouth 3 l tablet (three) times a day for 30 days. metoprolol 2020-06 No 25mg Q.5D Take 1 Meth marcella succinate 0-25 11-25 tablet (25 st XL 00:00: 05:59 mg total) Hospita (TOPROL-XL) 00 :00 by mouth 2 l 25 mg 24 hr (two) tablet times a day for 30 days. sennosides- 2020-06- No 1{tbl} QD Take 1 M ethodi docusate 0-25 11-[address] sodium 00:00: 05:59 mouth Hospita (SENOKOT-S) 00 :00 nightly l 8.6-50 mg for 30 per tablet days. simethicone 2020-06- No 80mg Q6H Take 1.2 M ethodi (MYLICON) 0-25 11-25 mL ([address] 40 mg/0.6 00:00: 05:59 total) by Ho spita mL drops 00 :00 mouth l every 6 (six) hours as needed for flatulence for up to 30 days. furosemide 2020- No 20mg Q.5D Take 1 Meth marcella (LASIX) 20 03-0914 tablet (20 st mg tablet 00:00: 04:59 mg total) Ho spita 00 :00 by mouth 2 l (two) times a day as needed (edema/swe lling) for up to 3 days. ergocalcife 2020- No 91938J Q7D Take 1 M ethodi rol 02-27- capsule st (VITAMIN 00:00: 04:59 (50,000 Hospi [...] by l mouth daily for 30 days. albuterol 2020- No 2{puff} Q.25D Inhale 2 [...] by mouth 2 st 5 mg tablet 14:10: 00:00 (two) Hosp haresh 33 :00 times a l day. psyllium 2020- No 1{scoop QD Take 1 Met hodi seed, with 02-20 08-24 } Scoop by st dextrose, 08:06: 00:00 mouth Hospit a (FIBER 33 :00 nightly as l ORAL) needed. clonIDINE 2020- No .1mg Q.5D Take 0.1 Met hodi (CATAPRES) 02-20 08-[address] 0.1 MG 08:05: 00:00 mouth 2 Hospita tablet 55 :00 (two) l times a day. pantoprazol 2020- No 40mg 40 mg, Uni vers e 7-20 07-20 Oral, ONCE ity of (PROTONIX) 08:30: 07:18 [...] Flash as mg 00 :00 dose, [facility] 01/16/21 at Branch 0215, STAT cloNIDine 2020- No .1mg 0.1 mg, Univ ers (CATAPRES) 01-1620 Oral, ity of tablet 0.1 05:45: 04:45 ONCE, 1 Flash as mg 00 :00 dose, [facility] 01/16/21 at Branch 0045, STAT amLODIPine Yes 10mg Take 10 mg U nivers 10 mg 7-02 by mouth ity of tablet 18:08: daily. [place] [address] Medical Branch aspirin 325 0 Yes 325mg Take 325 U nivers mg tablet 7-02 mg by ity of 18:08: mouth [place] 23 daily. Medical Branch valsartan-h Yes 1{tbl} Take 1 Un alma ydrochlorot 7-02 tablet by ity of hiazide 18:08: mouth [place] 160-12.5 mg 23 daily. Medica l per tablet Branch eszopiclone Yes 3mg Take 3 mg U nivers 3 mg tablet 7-02 by mouth ity of 18:08: at [place] 23 bedtime. Medical Branch cloNIDine Yes .1mg [...] by mouth ity of capsule 18:08: daily. [place] [address] Medical Branch lisinopriL 0 Yes 5mg Take 5 mg Un alma 5 mg tablet 7-02 by mouth ity of 18:08: daily. [place] [address] Medical Branch finasteride 0 Yes 5mg Take 5 mg U nivers 5 mg tablet 7-02 by mouth ity of 18:08: daily. [place] [address] Medical Branch amLODIPine 0 Yes 10mg Take 10 mg U nivers 10 mg 7-02 by mouth ity of tablet 18:08: daily. [place] [address] Medical Branch aspirin 325 2020-0 Yes 325mg Take 325 U nivers mg tablet 7-02 mg by ity of 18:08: mouth [place] 23 daily. Medical Branch valsartan-h Yes 1{tbl} Take 1 Un alma ydrochlorot 7-02 tablet by ity of hiazide 18:08: mouth [place] 160-12.5 mg 23 daily. Medica l per tablet Branch eszopiclone Yes 3mg Take 3 mg U nivers 3 mg tablet 7-02 by mouth ity of 18:08: at [place] [address] bedtime. Medical Branch cloNIDine 2020-0 Yes .1mg Take 0.1 Univ ers 0.1 mg 7-02 mg by ity of tablet 18:08: mouth 3 [place] 23 (three) Medical times Branch daily. apixaban Yes 2.5mg Take 2.5 Univ ers (ELIQUIS) 7-02 mg by ity of 2.5 mg 18:08: mouth 2 [place] tablet 23 (two) Medical times Branch daily. omeprazole 0 Yes 40mg Take 40 mg U nivers 40 mg 7-02 by mouth ity of capsule 18:08: daily. [place] [address] Medical Branch lisinopriL 2020-0 Yes 5mg Take 5 mg Un alma 5 mg tablet 7-02 by mouth ity of 18:08: daily. [place] [address] Medical Branch finasteride 2020-0 Yes 5mg Take 5 mg U nivers 5 mg tablet 7-02 by mouth ity of 18:08: daily. [place] [address] Medical Branch amLODIPine Yes 10mg Take 10 mg U nivers 10 mg 7-02 by mouth ity of tablet 18:08: daily. [place] [address] Medical Branch aspirin 325 0 Yes 325mg [...] 7-02 by mouth ity of 18:08: at [place] [address] bedtime. Medical Branch cloNIDine Yes .1mg Take 0.1 Univ ers 0.1 mg 7-02 mg by ity of tablet 18:08: mouth 3 [place] [address] (three) Medical times Branch daily. apixaban Yes 2.5mg Take 2.5 Univ ers (ELIQUIS) 7-02 mg by ity of 2.5 mg 18:08: mouth 2 [place] tablet 23 (two) Medical times Branch daily. omeprazole Yes 40mg Take 40 mg U nivers 40 mg 7-02 by mouth ity of capsule 18:08: daily. [place] [address] Medical Branch lisinopriL Yes 5mg Take 5 mg Un alma 5 mg tablet 7-02 by mouth ity of 18:08: daily. [place] [address] Medical Branch finasteride Yes 5mg Take 5 mg U nivers 5 mg tablet 7-02 by mouth ity of 18:08: daily. [place] [address] Medical Branch amLODIPine Yes 10mg Take 10 mg U nivers 10 mg 7-02 by mouth ity of tablet 18:08: daily. [place] [address] Medical Branch aspirin 325 Yes 325mg Take [...] 7-02 by mouth ity of 18:08: at [place] 23 bedtime. Medical Branch cloNIDine Yes .1mg [...] by mouth ity of capsule 18:08: daily. [place] [address] Medical Branch lisinopriL Yes 5mg Take 5 mg Un alma 5 mg tablet 7-02 by mouth ity of 18:08: daily. [place] [address] Medical Branch finasteride Yes 5mg Take 5 mg U nivers 5 mg tablet 7-02 by mouth ity of 18:08: daily. [place] [address] Medical Branch amLODIPine Yes 10mg Take 10 mg U nivers 10 mg 7-02 by mouth ity of tablet 18:08: daily. [place] [address] Medical Branch aspirin 325 0 Yes 325mg [...] 7-02 by mouth ity of 18:08: at [place] 23 bedtime. Medical Branch cloNIDine Yes .1mg [...] by mouth ity of capsule 18:08: daily. [place] [address] Medical Branch lisinopriL 0 Yes 5mg Take 5 mg Un alma 5 mg tablet 7-02 by mouth ity of 18:08: daily. [place] [address] Medical Branch finasteride 0 Yes 5mg Take 5 mg U nivers 5 mg tablet 7-02 by mouth ity of 18:08: daily. [place] [address] Medical Branch amLODIPine 0 Yes 10mg Take 10 mg U nivers 10 mg 7-02 by mouth ity of tablet 18:08: daily. [place] [address] Medical Branch aspirin 325 2020-0 Yes 325mg Take 325 U nivers mg tablet 7-02 mg by ity of 18:08: mouth [place] 23 daily. Medical Branch valsartan-h Yes 1{tbl} Take 1 Un alma ydrochlorot 7-02 tablet by ity of hiazide 18:08: mouth [place] 160-12.5 mg 23 daily. Medica l per tablet Branch eszopiclone Yes 3mg Take 3 mg U nivers 3 mg tablet 7-02 by mouth ity of 18:08: at [place] [address] bedtime. Medical Branch cloNIDine 2020-0 Yes .1mg Take 0.1 Univ ers 0.1 mg 7-02 mg by ity of tablet 18:08: mouth 3 [place] 23 (three) Medical times Branch daily. apixaban Yes 2.5mg Take 2.5 Univ ers (ELIQUIS) 7-02 mg by ity of 2.5 mg 18:08: mouth 2 [place] tablet 23 (two) Medical times Branch daily. omeprazole 0 Yes 40mg Take 40 mg U nivers 40 mg 7-02 by mouth ity of capsule 18:08: daily. [place] [address] Medical Branch lisinopriL 2020-0 Yes 5mg Take 5 mg Un alma 5 mg tablet 7-02 by mouth ity of 18:08: daily. [place] [address] Medical Branch finasteride 2020-0 Yes 5mg Take 5 mg U nivers 5 mg tablet 7-02 by mouth ity of 18:08: daily. [place] [address] Medical Branch amLODIPine Yes 10mg Take 10 mg U nivers 10 mg 7-02 by mouth ity of tablet 18:08: daily. [place] [address] Medical Branch aspirin 325 0 Yes 325mg [...] 7-02 by mouth ity of 18:08: at [place] [address] bedtime. Medical Branch cloNIDine Yes .1mg Take 0.1 Univ ers 0.1 mg 7-02 mg by ity of tablet 18:08: mouth 3 [place] [address] (three) Medical times Branch daily. apixaban Yes 2.5mg Take 2.5 Univ ers (ELIQUIS) 7-02 mg by ity of 2.5 mg 18:08: mouth 2 [place] tablet 23 (two) Medical times Branch daily. omeprazole Yes 40mg Take 40 mg U nivers 40 mg 7-02 by mouth ity of capsule 18:08: daily. [place] [address] Medical Branch lisinopriL Yes 5mg Take 5 mg Un alma 5 mg tablet 7-02 by mouth ity of 18:08: daily. [place] [address] Medical Branch finasteride Yes 5mg Take 5 mg U nivers 5 mg tablet 7-02 by mouth ity of 18:08: daily. [place] [address] Medical Branch amLODIPine Yes 10mg Take 10 mg U nivers 10 mg 7-02 by mouth ity of tablet 18:08: daily. [place] [address] Medical Branch aspirin 325 Yes 325mg Take 325 U nivers mg tablet 7-02 mg by ity of 18:08: mouth [place] 23 daily. Medical Branch valsartan-h Yes 1{tbl} Take 1 Un alma ydrochlorot 7-02 tablet by ity of hiazide 18:08: mouth [place] 160-12.5 mg 23 daily. Medica l per tablet Branch eszopiclone Yes 3mg Take 3 mg U nivers 3 mg tablet 12-29 by mouth ity of 18:08: at [place] [address] bedtime. Medical Branch cloNIDine Yes .1mg Take 0.1 Univ ers 0.1 mg 7-02 mg by ity of tablet 18:08: mouth 3 [place] 23 (three) Medical times Branch daily. apixaban Yes 2.5mg Take 2.5 Univ ers (ELIQUIS) 7-02 mg by ity of 2.5 mg 18:08: mouth 2 [place] tablet 23 (two) Medical times Branch daily. omeprazole Yes 40mg Take 40 mg U nivers 40 mg -02 by mouth ity of capsule 18:08: daily. [place] [address] Medical Branch lisinopriL Yes 5mg Take 5 mg Un alma 5 mg tablet -02 by mouth ity of 18:08: daily. [place] [address] Medical Branch finasteride Yes 5mg Take 5 mg U nivers 5 mg tablet 12-29 by mouth ity of 18:08: daily. [place] [address] Medical Branch Dutasteride Yes Take by Un alma -Tamsulosin 7-02 mouth. ity of 0.5-0.4 mg 18:08: [place] [address] Medical Branch Dutasteride Yes Take by Un alma -Tamsulosin 7-02 mouth. ity of 0.5-0.4 mg 18:08: [place] [address] Medical Branch Dutasteride Yes Take by Un alma -Tamsulosin 7-02 mouth. ity of 0.5-0.4 mg 18:08: [place] [address] Medical Branch Dutasteride Yes Take by Un alma -Tamsulosin 7-02 mouth. ity of 0.5-0.4 mg 18:08: [place] [address] Medical Branch Dutasteride Yes Take by Un alma -Tamsulosin 7-02 mouth. ity of 0.5-0.4 mg 18:08: [place] [address] Medical Branch Dutasteride Yes Take by Un alma -Tamsulosin 7-02 mouth. ity of 0.5-0.4 mg 18:08: [address] Branch Dutasteride Yes Take by Un alma -Tamsulosin 12-29 mouth. ity of 0.5-0.4 mg 18:08: [address] Branch Dutasteride Yes Take by Un alma -Tamsulosin 12-29 mouth. ity of 0.5-0.4 mg 18:08: [address] Branch tamsulosin 2020- No .4mg QD Take 0.4 Me thodi (FLOMAX) 12-[address] 0.4 mg 15:23: 00:00 mouth Hospita capsule 43 :00 daily. [...] daily for 4 days. traMADoL 2020- No [id number] 50mg Q6H Take 50 mg M ethodi (ULTRAM) 50 11-[address] mg tablet 20:42: 00:00 every 6 Hosp haresh 31 :00 (six) l hours as needed for moderate pain .acute pain. aspirin 2020- No 81mg QD Take 1 Methodi (ECOTRIN) [...] 5 mg every Methodi (NORVASC) 5 07-07 06-[address] mg tablet 00:00: 00:00 Hospita 00 :00 l amLODIPine Yes 10mg Take 10 mg U nivers 10 mg 7-19 by mouth ity of tablet 18:24: daily. [address] Branch aspirin 325 Yes 325mg Take [...] 7-19 by mouth ity of 18:24: at [place] [address] bedtime. Medical Branch amLODIPine Yes 10mg Take 10 mg U nivers 10 mg 7-19 by mouth ity of tablet 18:24: daily. [address] Branch aspirin 325 Yes 325mg Take [...] 7-19 by mouth ity of 18:24: at [place] 36 bedtime. Medical Branch Amlodipine Amlodipine Yes [address] [facility] Aspirin Aspirin Yes Daily [facility] (Aspir 81) (Aspir 81) Tal es - 81 Mg 81 Mg Patient TABLET.DR SHIPLEY.DR lino [facility] Hydrochloro Hydrochloro Yes 12.[address] thiazide thiazide [facility] - (Hydrochlor (Hydrochlor P atient othiazide*) othiazide*) s 25 Mg 25 Mg Medical TABLET TABLET Center Tamsulosin Tamsulosin Yes .[address] [facility] - (Flomax*) (Flomax*) Patie nt 0.4 Mg CAP 0.4 Mg CAP s [facility] Immunizations Ordered Immunization Filled Immunization Date Status Commen ts Source Name Name FLUZONE HIGH-DOSE PF 2021-04-23 Completed Meth odist 00:00:00 Hospital Vital Signs Vital Name Observation Time Observation Value Comments Source Systolic blood 2021-01-16 07:00:00 187 mm[Hg] Univer sity of pressure [facility] Diastolic blood 2021-01-16 07:00:00 90 mm[Hg] Unive rsity of pressure [facility] Heart rate 2021-01-16 07:00:00 76 /min Universi ty of [facility] Respiratory rate 2021-01-16 07:00:00 20 /min Univ ersity of [facility] Oxygen saturation in 2021-01-16 07:00:00 97 /min University of Arterial blood by [facility] Pulse oximetry Branch Body temperature 2021-01-16 04:24:00 37.06 Ayana Univ ersity of [facility] Body weight 2021-01-16 04:24:00 58.968 kg Universi ty of [facility] BMI 2021-01-16 04:24:00 22.31 kg/m2 Universi ty [facility] Branch Systolic blood 2021-01-11 02:55:00 175 mm[Hg] Univer sity of pressure [facility] Branch Diastolic blood 2021-01-11 02:55:00 85 mm[Hg] Unive rsity of pressure [facility] Heart rate 2021-01-11 02:55:00 73 /min Universi ty [facility] Branch Respiratory rate 2021-01-11 02:55:00 16 /min Univ ersity of [place] [facility] Oxygen saturation in 2021-01-11 02:55:00 96 /min University of Arterial blood by [place] [facility] hemal Pulse oximetry Branch Body temperature 2021-01-10 23:48:00 37.22 Ayana Univ ersity of [facility] Branch Body weight 2021-01-10 23:48:00 58.968 kg Universi ty [facility] Branch BMI 2021-01-10 23:48:00 22.31 kg/m2 Universi ty [facility] Systolic blood 2020-12-29 18:08:00 132 mm[Hg] Univer sity of pressure [place] [facility] Diastolic blood 2020-12-29 18:08:00 65 mm[Hg] Unive rsity of pressure [place] [facility] Heart rate 2020-12-29 18:03:00 65 /min Universi ty of [place] [facility] Body temperature 2020-12-29 18:03:00 36.44 Ayana Univ ersity of [place] [facility] Respiratory rate 2020-12-29 18:03:00 16 /min Univ ersity of [place] [facility] Body height 2020-12-29 18:03:00 162.6 cm Universi ty [facility] [place] [facility] Body weight 2020-12-29 18:03:00 59.013 kg Universi ty [facility] [place] [facility] BMI 2020-12-29 18:03:00 22.33 kg/m2 Universi ty [facility] [place] [facility] Oxygen saturation in 2020-12-29 18:03:00 98 /min University of Arterial blood by [place] [facility] Pulse oximetry Branch Systolic blood 2020-12-29 18:08:00 132 mm[Hg] Univer sity of pressure [place] [facility] Diastolic blood 2020-12-29 18:08:00 65 mm[Hg] Unive rsity of pressure [place] [facility] Heart rate 2020-12-29 18:03:00 65 /min Universi ty of [place] [facility] Body temperature 2020-12-29 18:03:00 36.44 Ayana [facility] Respiratory rate 2020-12-29 18:03:00 16 /min [facility] Body height 2020-12-29 18:03:00 162.6 cm [facility] Body weight 2020-12-29 18:03:00 59.013 kg [facility] BMI 2020-12-29 18:03:00 22.33 kg/m2 [facility] Oxygen saturation in 2020-12-29 18:03:00 98 /min [facility] Arterial blood by [facility] hemal Pulse oximetry Branch Oxygen saturation in 2021-07-13 18:02:00 94 /min [facility] Arterial blood by Pulse oximetry Heart rate 2021-07-13 17:59:00 74 /min [facility] Respiratory rate 2021-07-13 17:59:00 14 /min [facility] Systolic blood 2021-07-13 17:02:14 121 mm[Hg] [facility] pressure Diastolic blood 2021-07-13 17:02:14 63 mm[Hg] [facility] pressure Body temperature 2021-07-13 17:02:14 36.11 Ayana [facility] Body height 2021-07-08 22:41:00 162.6 cm [facility] Body weight 2021-07-08 22:41:00 58.968 kg [facility] BMI 2021-07-08 22:41:00 22.31 kg/m2 [facility] BP Diastolic 2020-09-28 12:46:00 76 mm[Hg] [facility] BP Systolic 2020-09-28 12:46:00 149 mm[Hg] [facility] Oxygen saturation by 2020-09-28 12:46:00 99 /min [facility] Pulse [facility]xim[facility] Patients [facility] Heart Rate 2020-09-28 12:46:00 85 /min [facility] Respiratory rate 2020-09-28 12:46:00 22 [...] Center BP Systolic 2020-09-28 08:42:00 141 mm[Hg] [facility] Oxygen saturation by 2020-09-28 08:42:00 96 /min [facility] Pulse [facility] Patients [facility] BP Diastolic 2020-09-28 08:36:00 60 mm[Hg] [facility] BP Systolic 2020-09-28 08:36:00 141 mm[Hg] [facility] [...] [facility] Oxygen saturation by 2020-09-28 02:40:00 95 /min [facility] Pulse [facility] Patients [facility] Heart Rate 2020-09-28 02:40:00 87 /min [facility] Respiratory rate 2020-09-28 02:40:00 20 /min [facility] BP Diastolic 2020-09-28 00:00:00 59 mm[Hg] [facility] BP Systolic 2020-09-28 00:00:00 135 mm[Hg] [facility] Oxygen saturation by 2020-09-28 [...] Center BP Systolic 2020-09-27 20:00:00 156 mm[Hg] [facility] Med[facility] l [...] Center BP Systolic 2020-09-27 15:21:00 159 mm[Hg] [facility] [...] Center Body Temperature 2020-09-27 11:13:00 98.4 [degF] [facility] BP Diastolic 2020-09-27 08:15:00 51 mm[Hg] [facility] BP Systolic 2020-09-27 08:15:00 116 mm[Hg] [facility] Oxygen saturation by 2020-09-27 08:15:00 [...] Center BP Systolic 2020-09-27 07:58:00 116 mm[Hg] [facility] Med[facility] l [...] BP Systolic 2020-09-26 20:00:00 142 mm[Hg] [facility] [...] Center BP Systolic 2020-09-26 16:11:00 151 mm[Hg] [facility] Med[facility] l [...] 16 /min [facility] Oxygen saturation by 2020-09-26 [...] Center BP Systolic 2020-09-26 12:12:00 113 mm[Hg] [facility] Patients Medica l [...] 99 /min [facility] Respiratory rate 2020-09-26 08:50:00 26 /min [facility] Oxygen saturation by 2020-09-26 08:35:00 98 /min [facility] Pulse [facility]ximetry Patients [facility] Heart Rate 2020-09-26 08:35:00 99 /min [facility] Respiratory rate 2020-09-26 08:35:00 26 /min [facility] BP Diastolic 2020-09-26 07:58:00 59 mm[Hg] [facility] BP Systolic 2020-09-26 07:58:00 113 mm[Hg] [facility] Oxygen saturation by 2020-09-26 07:58:00 98 /min [facility] Pulse [facility] Patients [facility] Heart Rate 2020-09-26 07:58:00 99 /min [facility] Respiratory rate 2020-09-26 07:58:00 26 /min [facility] Body Temperature 2020-09-26 07:58:00 97.4 [degF] [facility] BP Diastolic 2020-09-26 04:00:00 40 mm[Hg] [facility] BP Systolic 2020-09-26 04:00:00 112 mm[Hg] [facility] Oxygen saturation by 2020-09-26 04:00:00 98 /min [facility] - Pulse oximetry Patients [facility] Heart Rate 2020-09-26 04:00:00 99 /min [facility] Respiratory rate 2020-09-26 04:00:00 20 /min [facility] Body Temperature 2020-09-26 04:00:00 97.0 [degF] [facility] [...] 99 /min [facility] Respiratory rate 2020-09-25 20:00:00 18 /min [facility] Body Temperature 2020-09-25 20:00:00 97.9 [degF] [facility] Oxygen saturation by 2020-09-25 19:53:00 97 /min [facility] Pulse [facility] Patients [facility] Heart Rate 2020-09-25 19:53:00 94 /min [facility] Respiratory rate 2020-09-25 19:53:00 20 /min [facility] BP Diastolic 2020-09-25 15:48:00 61 mm[Hg] [facility] BP Systolic 2020-09-25 15:48:00 124 mm[Hg] [facility] Oxygen saturation by 2020-09-25 15:48:00 97 /min [facility] Pulse [facility] Patients [facility] Heart Rate 2020-09-25 15:48:00 99 /min [facility] Respiratory rate 2020-09-25 15:48:00 18 [...] - [facility] Respiratory rate 2020-09-25 12:40:00 16 /min [...] Body Temperature 2020-09-25 09:18:00 97.9 [degF] [facility] [...] Center BP Systolic 2020-09-25 07:33:00 135 mm[Hg] [facility] Med[facility] l [...] BP Systolic 2020-09-24 23:59:00 151 mm[Hg] [facility] [...] Center Body Temperature 2020-09-24 23:59:00 97.6 [degF] [facility] BP Diastolic 2020-09-24 20:32:00 92 mm[Hg] [facility] BP Systolic 2020-09-24 20:32:00 165 mm[Hg] [facility] Oxygen saturation by 2020-09-24 20:32:00 94 /min [facility] Pulse [facility] Patients [facility] Heart Rate 2020-09-24 20:32:00 112 /min [facility] Respiratory rate 2020-09-24 20:32:00 18 /min [facility] Body Temperature 2020-09-24 20:32:00 97.7 [degF] [facility] Oxygen saturation by 2020-09-24 20:25:00 98 /min [facility] Pulse [facility] Patients [facility] Heart Rate 2020-09-24 20:25:00 100 /min [facility] Respiratory rate 2020-09-24 20:25:00 20 /min [facility] Oxygen saturation by 2020-09-24 20:10:00 [...] 94 /min [facility] Respiratory rate 2020-09-24 08:41:00 16 /min [facility] Body Temperature 2020-09-24 08:41:00 97.7 [degF] [facility] BP Diastolic 2020-09-24 08:30:00 59 mm[Hg] [facility] BP Systolic 2020-09-24 08:30:00 142 mm[Hg] [facility] Oxygen saturation by 2020-09-24 08:30:00 95 /min [facility] Pulse [facility] Patients [facility] Heart Rate 2020-09-24 08:30:00 94 /min [facility] Respiratory rate 2020-09-24 08:30:00 18 /min [facility] Body Temperature 2020-09-24 08:30:00 98.6 [degF] [facility] Oxygen saturation by 2020-09-24 06:50:00 [...] Center BP Systolic 2020-09-23 20:00:00 146 mm[Hg] [facility] Oxygen saturation by 2020-09-23 20:00:00 94 /min [facility] Pulse [facility]etry Patients [facility] Heart Rate 2020-09-23 20:00:00 105 /min [facility] Respiratory rate 2020-09-23 20:00:00 18 /min [facility] Body Temperature 2020-09-23 20:00:00 97.9 [degF] [facility] Oxygen saturation by 2020-09-23 19:18:00 [...] Center BP Systolic 2020-09-23 08:50:00 142 mm[Hg] [facility] Oxygen saturation by 2020-09-23 08:50:00 98 /min [facility] Pulse [facility]ximetry Patients [facility] Heart Rate 2020-09-23 08:50:00 94 /min [facility] Respiratory rate 2020-09-23 08:50:00 18 /min [facility] Body Temperature 2020-09-23 08:50:00 97.3 [degF] [facility] BP Diastolic 2020-09-23 08:39:00 63 mm[Hg] [facility] BP Systolic 2020-09-23 08:39:00 142 mm[Hg] [facility] Oxygen saturation by 2020-09-23 08:39:00 100 /min [facility] Pulse [facility]ximetry Patients [facility] Heart Rate 2020-09-23 08:39:00 94 /min [facility] Respiratory rate 2020-09-23 08:39:00 18 /min [facility] Body Temperature 2020-09-23 08:39:00 97.4 [degF] [facility] Med[facility] [...] BP Systolic 2020-09-23 04:30:00 168 mm[Hg] [facility] Oxygen saturation by 2020-09-23 04:30:00 98 /min [facility] Pulse [facility]ximetry Patients [facility] Heart Rate 2020-09-23 04:30:00 87 /min [facility] Respiratory rate 2020-09-23 04:30:00 18 /min [facility] Body Temperature 2020-09-23 04:30:00 97.6 [degF] [facility] Oxygen saturation by 2020-09-23 00:40:00 94 /min [facility] Pulse [facility]etry Patients [facility] Heart Rate 2020-09-23 00:40:00 81 /min [facility] Respiratory rate 2020-09-23 00:40:00 20 /min [facility] BP Diastolic 2020-09-23 00:23:00 76 mm[Hg] [facility] BP Systolic 2020-09-23 00:23:00 141 mm[Hg] [facility] Oxygen saturation by 2020-09-23 00:23:00 94 /min [facility] Pulse [facility] Patients [facility] Heart Rate 2020-09-23 00:23:00 81 /min [facility] Respiratory rate 2020-09-23 00:23:00 18 /min [facility] Body Temperature 2020-09-23 00:23:00 98.1 [degF] [facility] BP Diastolic 2020-09-22 20:04:00 81 mm[Hg] [facility] BP Systolic 2020-09-22 20:04:00 158 mm[Hg] [facility] Oxygen saturation by 2020-09-22 20:04:00 95 [...] 89 /min [facility] Respiratory rate 2020-09-22 15:48:00 24 [...] Center BP Systolic 2020-09-22 11:44:00 165 mm[Hg] [facility] Oxygen saturation by 2020-09-22 11:44:00 100 /min [facility] Pulse [facility]ximetry Patients [facility] Heart Rate 2020-09-22 11:44:00 81 /min [facility] Respiratory rate 2020-09-22 11:44:00 23 /min [facility] Body Temperature 2020-09-22 11:44:00 97.9 [degF] [facility] Oxygen saturation by 2020-09-22 11:25:00 100 /min [facility] Pulse [facility]ximetry Patients [facility] Heart Rate 2020-09-22 11:25:00 88 /min [facility] Oxygen saturation by 2020-09-22 11:10:00 [...] Center BP Systolic 2020-09-22 09:27:00 165 mm[Hg] [facility] Oxygen saturation by 2020-09-22 [...] Center Body Temperature 2020-09-22 08:00:00 98.0 [degF] [facility] BP Diastolic 2020-09-22 03:50:00 72 mm[Hg] [facility] BP Systolic 2020-09-22 03:50:00 144 mm[Hg] [facility] Oxygen saturation by 2020-09-22 03:50:00 97 /min [facility] Pulse [facility]etry Patients [facility] Heart Rate 2020-09-22 03:50:00 93 /min [facility] Respiratory rate 2020-09-22 03:50:00 24 /min [facility] Body Temperature 2020-09-22 03:50:00 97.9 [degF] [facility] Patients Med[facility] l [...] Center BP Systolic 2020-09-21 20:07:00 147 mm[Hg] [facility] Oxygen saturation by 2020-09-21 20:07:00 96 /min [facility] Pulse [facility]ximetry Patients [facility] Heart Rate 2020-09-21 20:07:00 84 /min [facility] Respiratory rate 2020-09-21 20:07:00 24 /min [facility] Body Temperature 2020-09-21 20:07:00 98.6 [degF] [facility] Patients Med[facility] l [...] Body Temperature 2020-09-21 13:02:00 98.3 [degF] [facility] Patients [...] Center BP Systolic 2020-09-21 08:58:00 150 mm[Hg] [facility] Oxygen saturation by 2020-09-21 08:58:00 95 /min [facility] Pulse [facility]ximetry Patients [facility] Heart Rate 2020-09-21 08:58:00 63 /min [facility] Respiratory rate 2020-09-21 08:58:00 17 /min [facility] Body Temperature 2020-09-21 08:58:00 98.0 [degF] [facility] Patients Med[facility] l [...] Center BP Systolic 2020-09-21 04:00:00 149 mm[Hg] [facility] Oxygen saturation by 2020-09-21 04:00:00 94 /min [facility] Pulse [facility]ximetry Patients [facility] Heart Rate 2020-09-21 04:00:00 73 /min [facility] Respiratory rate 2020-09-21 04:00:00 21 /min [...] BP Systolic 2020-09-20 15:47:00 133 mm[Hg] [facility] Patients [...] Center BP Systolic 2020-09-20 11:55:00 133 mm[Hg] [facility] Oxygen saturation by 2020-09-20 [...] Center Body Temperature 2020-09-20 08:58:00 98.4 [degF] [facility] BP Diastolic 2020-09-20 08:55:00 66 mm[Hg] [facility] Patients Med[facility] l [...] Center Body Temperature 2020-09-20 08:55:00 98.4 [degF] [facility] Patients Med[facility] l [...] Body Temperature 2020-09-20 07:38:00 98.4 [degF] [facility] Patients [...] 138 mm[Hg] [facility] Oxygen saturation by 2020-09-19 21:46:00 94 /min [facility] Pulse [facility]ximetry Patients [facility] Heart Rate 2020-09-19 21:46:00 80 /min [facility] Respiratory rate 2020-09-19 21:46:00 18 /min [facility] Body Temperature 2020-09-19 21:46:00 97.4 [degF] [facility] Oxygen saturation by 2020-09-19 20:09:00 95 /min [facility] Pulse [facility]ximetry Patients [facility] Heart Rate 2020-09-19 20:09:00 82 /min [facility] Patients [facility] Respiratory rate 2020-09-19 20:09:00 18 /min [facility] BP Diastolic 2020-09-19 20:00:00 70 mm[Hg] [facility] BP Systolic 2020-09-19 20:00:00 138 mm[Hg] [facility] Oxygen saturation by 2020-09-19 20:00:00 94 /min [facility] Pulse [facility]ximetry Patients [facility] Heart Rate 2020-09-19 20:00:00 80 /min [facility] Respiratory rate 2020-09-19 20:00:00 18 /min [facility] Body Temperature 2020-09-19 20:00:00 97.4 [degF] [facility] BP Diastolic 2020-09-19 15:41:00 70 mm[Hg] [facility] BP Systolic 2020-09-19 15:41:00 157 mm[Hg] [facility] Oxygen saturation by 2020-09-19 15:41:00 95 [...] Center Respiratory rate 2020-09-19 12:14:00 17 /min [facility] BP Diastolic 2020-09-19 11:26:00 79 mm[Hg] [facility] BP Systolic 2020-09-19 11:26:00 204 mm[Hg] [facility] Oxygen saturation by 2020-09-19 11:26:00 96 /min [facility] Pulse [facility]ximetry Patients [facility] Heart Rate 2020-09-19 11:26:00 88 /min [facility] Respiratory rate 2020-09-19 11:26:00 16 /min [facility] Body Temperature 2020-09-19 11:26:00 98.6 [degF] [facility] Patients Med[facility] l [...] Center BP Systolic 2020-09-19 07:17:00 168 mm[Hg] [facility] Patients Med[facility] l [...] BP Systolic 2020-09-19 01:59:00 200 mm[Hg] [facility] Oxygen saturation by 2020-09-19 01:59:00 96 /min [facility] Pulse [facility]ximetry Patients [facility] Heart Rate 2020-09-19 01:59:00 92 /min [facility] Respiratory rate 2020-09-19 01:59:00 18 /min [facility] Body Temperature 2020-09-19 01:59:00 97.7 [degF] [facility] BP Diastolic 2020-09-18 22:57:00 86 mm[Hg] [facility] BP Systolic 2020-09-18 22:57:00 158 mm[Hg] [facility] Oxygen saturation by 2020-09-18 22:57:00 96 /min [facility] Pulse [facility]ximetry Patients [facility] Heart Rate 2020-09-18 22:57:00 68 /min [facility] Respiratory rate 2020-09-18 22:57:00 18 /min [facility] Body Temperature 2020-09-18 22:57:00 97.7 [degF] [facility] BP Diastolic 2020-09-18 21:58:00 86 mm[Hg] [facility] BP Systolic 2020-09-18 21:58:00 158 mm[Hg] [facility] Oxygen saturation by 2020-09-18 21:58:00 96 /min [facility] Pulse [facility]ximetry Patients [facility] Heart Rate 2020-09-18 21:58:00 68 /min [facility] Respiratory rate 2020-09-18 21:58:00 18 /min [facility] Body Temperature 2020-09-18 21:58:00 97.7 [degF] [facility] Oxygen saturation by 2020-09-18 21:16:00 93 /min [facility] Pulse [facility]etry Patients [facility] Heart Rate 2020-09-18 21:16:00 97 /min [facility] [...] Center BP Systolic 2020-09-18 13:00:00 160 mm[Hg] [facility] Patients Medica l [...] 86 /min [facility] Respiratory rate 2020-09-18 11:00:00 24 /min [facility] BP Diastolic 2020-09-18 10:00:00 79 mm[Hg] [facility] BP Systolic 2020-09-18 10:00:00 150 mm[Hg] [facility] Oxygen saturation by 2020-09-18 [...] 141 mm[Hg] [facility] Oxygen saturation by 2020-09-18 09:00:00 [...] Center Respiratory rate 2020-09-18 08:00:00 15 /min [facility] BP Diastolic 2020-09-18 07:51:00 80 mm[Hg] [facility] BP Systolic 2020-09-18 07:51:00 141 mm[Hg] [facility] Oxygen saturation by 2020-09-18 07:51:00 96 /min [facility] Pulse [facility]ximetry Patients [facility] Heart Rate 2020-09-18 07:51:00 86 /min [facility] Respiratory rate 2020-09-18 07:51:00 17 /min [facility] Body Temperature 2020-09-18 07:51:00 97.7 [degF] [facility] Oxygen saturation by 2020-09-18 07:35:00 97 /min [facility] Pulse [facility]ximetry Patients [facility] Heart Rate 2020-09-18 07:35:00 85 /min [facility] Respiratory rate 2020-09-18 07:35:00 20 /min [facility] BP Diastolic 2020-09-18 07:00:00 80 mm[Hg] [facility] BP Systolic 2020-09-18 07:00:00 141 mm[Hg] [facility] Oxygen saturation by 2020-09-18 07:00:00 97 /min [facility] - Pulse oximetry Patients [facility] Heart Rate 2020-09-18 07:00:00 86 /min [facility] Respiratory rate 2020-09-18 07:00:00 17 /min [facility] Body Temperature 2020-09-18 07:00:00 97.7 [degF] [facility] BP Diastolic 2020-09-18 06:00:00 85 mm[Hg] [facility] BP Systolic 2020-09-18 06:00:00 174 mm[Hg] [facility] Oxygen saturation by 2020-09-18 06:00:00 96 /min [facility] Pulse oximetry Patients [facility] Heart Rate 2020-09-18 06:00:00 95 /min [facility] Respiratory rate 2020-09-18 06:00:00 21 /min [facility] BP Diastolic 2020-09-18 05:00:00 77 mm[Hg] [facility] BP Systolic 2020-09-18 05:00:00 158 mm[Hg] [facility] Oxygen saturation by 2020-09-18 05:00:00 96 /min [facility] Pulse oxim[facility] Patients [facility] Heart Rate 2020-09-18 05:00:00 86 /min [facility] Respiratory rate 2020-09-18 05:00:00 18 /min [facility] BP Diastolic 2020-09-18 04:00:00 74 mm[Hg] [facility] BP Systolic 2020-09-18 04:00:00 150 mm[Hg] [facility] Oxygen saturation by 2020-09-18 04:00:00 [...] Center BP Systolic 2020-09-18 02:00:00 145 mm[Hg] [facility] Patients [facility] [...] Center BP Systolic 2020-09-18 01:00:00 144 mm[Hg] [facility] Oxygen saturation by 2020-09-18 01:00:00 97 /min [facility] Pulse oximetry Patients [facility] Heart Rate 2020-09-18 01:00:00 84 /min [facility] Respiratory rate 2020-09-18 01:00:00 19 /min [facility] BP Diastolic 2020-09-18 00:00:00 68 mm[Hg] [facility] BP Systolic 2020-09-18 00:00:00 144 mm[Hg] [facility] [...] Center BP Diastolic 2020-09-17 23:00:00 89 mm[Hg] [facility] BP Systolic 2020-09-17 23:00:00 145 mm[Hg] [facility] Oxygen saturation by 2020-09-17 23:00:00 96 /min [facility] - Pulse oximetry Patients [facility] Heart Rate 2020-09-17 23:00:00 90 /min [facility] Respiratory rate 2020-09-17 23:00:00 20 /min [facility] BP Diastolic 2020-09-17 22:03:00 67 mm[Hg] [facility] BP Systolic 2020-09-17 22:03:00 134 mm[Hg] [facility] Oxygen saturation by 2020-09-17 22:03:00 96 /min [facility] Pulse [facility]etry Patients [facility] BP Diastolic 2020-09-17 18:00:00 74 mm[Hg] [facility] BP Systolic 2020-09-17 18:00:00 146 mm[Hg] [facility] Oxygen saturation by 2020-09-17 18:00:00 95 /min [facility] Pulse oximetry Patients [facility] Heart Rate 2020-09-17 18:00:00 97 /min [facility] Respiratory rate 2020-09-17 18:00:00 18 /min [facility] BP Diastolic 2020-09-17 17:00:00 73 mm[Hg] [facility] BP Systolic 2020-09-17 17:00:00 134 mm[Hg] [facility] Oxygen saturation by 2020-09-17 17:00:00 94 /min [facility] - Pulse oximetry Patients [facility] Heart Rate 2020-09-17 17:00:00 106 /min [facility] Respiratory rate 2020-09-17 17:00:00 26 /min [facility] BP Diastolic 2020-09-17 16:00:00 83 mm[Hg] [facility] BP Systolic 2020-09-17 16:00:00 184 mm[Hg] [facility] Oxygen saturation by 2020-09-17 16:00:00 92 /min [facility] - Pulse oximetry Patients [facility] Heart Rate 2020-09-17 16:00:00 96 /min [facility] Respiratory rate 2020-09-17 16:00:00 32 /min [facility] Body Temperature 2020-09-17 16:00:00 98.6 [degF] [facility] Oxygen saturation by 2020-09-17 15:28:00 94 /min [facility] - Pulse [facility]ximetry Patients [facility] [...] 24 /min [facility] Oxygen saturation by 2020-09-17 14:59:00 94 [...] Center BP Systolic 2020-09-17 09:00:00 175 mm[Hg] [facility] Oxygen saturation by 2020-09-17 09:00:00 97 /min [facility] Pulse [facility]ximetry Patients [facility] Heart Rate 2020-09-17 09:00:00 88 /min [facility] Respiratory rate 2020-09-17 09:00:00 17 /min [facility] Body Temperature 2020-09-17 09:00:00 97.6 [degF] [facility] BP Diastolic 2020-09-17 08:00:00 77 mm[Hg] [facility] BP Systolic 2020-09-17 08:00:00 167 mm[Hg] [facility] Oxygen saturation by 2020-09-17 08:00:00 96 /min [facility] - Pulse oximetry Patients [facility] Heart Rate 2020-09-17 08:00:00 85 /min [facility] Respiratory rate 2020-09-17 08:00:00 14 /min [facility] BP Diastolic 2020-09-17 07:00:00 83 mm[Hg] [facility] BP Systolic 2020-09-17 07:00:00 169 mm[Hg] [facility] Oxygen saturation by 2020-09-17 07:00:00 96 /min [facility] - Pulse oximetry Patients [facility] Heart Rate 2020-09-17 07:00:00 84 /min [facility] Respiratory rate 2020-09-17 07:00:00 15 [...] Center BP Systolic 2020-09-17 04:00:00 155 mm[Hg] [facility] - Patients Medica l [...] Center BP Systolic 2020-09-17 03:00:00 188 mm[Hg] [facility] Oxygen saturation by 2020-09-17 03:00:00 97 /min [facility] - Pulse oximetry Patients [facility] Heart Rate 2020-09-17 03:00:00 90 /min [facility] Respiratory rate 2020-09-17 03:00:00 18 /min [facility] Body Temperature 2020-09-17 03:00:00 97.6 [degF] [facility] BP Diastolic 2020-09-17 02:00:00 75 mm[Hg] [facility] BP Systolic 2020-09-17 02:00:00 154 mm[Hg] [facility] Oxygen saturation by 2020-09-17 02:00:00 95 /min [facility] - Pulse oximetry Patients [facility] Heart Rate 2020-09-17 02:00:00 88 /min [facility] Respiratory rate 2020-09-17 02:00:00 18 /min [facility] BP Diastolic 2020-09-17 01:00:00 79 mm[Hg] [facility] BP Systolic 2020-09-17 01:00:00 144 mm[Hg] [facility] Oxygen saturation by 2020-09-17 01:00:00 94 /min [facility] - Pulse oximetry Patients [facility] Heart Rate 2020-09-17 01:00:00 88 /min [facility] Respiratory rate 2020-09-17 01:00:00 15 /min [facility] BP Diastolic 2020-09-17 00:00:00 76 mm[Hg] [facility] BP Systolic 2020-09-17 00:00:00 171 mm[Hg] [facility] Oxygen saturation by 2020-09-17 00:00:00 96 /min [facility] - Pulse oximetry Patients [facility] Heart Rate 2020-09-17 00:00:00 92 /min [facility] Respiratory rate 2020-09-17 00:00:00 26 /min [facility] Oxygen saturation by 2020-09-16 23:05:00 95 /min [facility] - Pulse oximetry Patients [facility] Heart Rate 2020-09-16 23:05:00 77 /min [facility] Respiratory rate 2020-09-16 23:05:00 17 /min [facility] BP Diastolic 2020-09-16 23:00:00 123 mm[Hg] [facility] BP Systolic 2020-09-16 23:00:00 212 mm[Hg] [facility] Oxygen saturation by 2020-09-16 23:00:00 97 /min [facility] - Pulse oximetry Patients [facility] Heart Rate 2020-09-16 23:00:00 83 /min [facility] Respiratory rate 2020-09-16 23:00:00 23 /min [facility] Body Temperature 2020-09-16 23:00:00 97.1 [degF] [facility] BP Diastolic 2020-09-16 22:12:00 76 mm[Hg] [facility] BP Systolic 2020-09-16 22:12:00 137 mm[Hg] [facility] Heart Rate 2020-09-16 22:12:00 80 /min [facility] BP Diastolic 2020-09-16 22:06:00 82 mm[Hg] [facility] BP Systolic 2020-09-16 22:06:00 176 mm[Hg] [facility] Oxygen saturation by 2020-09-16 22:06:00 96 /min [facility] - Pulse oximetry Patients [facility] Heart Rate 2020-09-16 22:06:00 82 /min [facility] Respiratory rate 2020-09-16 22:06:00 18 /min [facility] BP Diastolic 2020-09-16 22:03:00 81 mm[Hg] [facility] BP Systolic 2020-09-16 22:03:00 201 mm[Hg] [facility] Oxygen saturation by 2020-09-16 22:03:00 96 /min [facility] - Pulse oximetry Patients [facility] Heart Rate 2020-09-16 22:03:00 84 /min [facility] Respiratory rate 2020-09-16 22:03:00 22 /min [facility] BP Diastolic 2020-09-16 22:00:00 86 mm[Hg] [facility] BP Systolic 2020-09-16 22:00:00 206 mm[Hg] [facility] Oxygen saturation by 2020-09-16 22:00:00 96 /min [facility] - Pulse oximetry Patients [facility] Heart Rate 2020-09-16 22:00:00 86 /min [facility] Respiratory rate 2020-09-16 22:00:00 19 /min [facility] BP Diastolic 2020-09-16 21:01:00 69 mm[Hg] [facility] BP Systolic 2020-09-16 21:01:00 153 mm[Hg] [facility] Oxygen saturation by 2020-09-16 21:01:00 96 /min [facility] - Pulse oximetry Patients [facility] Heart Rate 2020-09-16 21:01:00 85 /min [facility] Respiratory rate 2020-09-16 21:01:00 17 /min [facility] BP Diastolic 2020-09-16 20:44:00 111 mm[Hg] [facility] BP Systolic 2020-09-16 20:44:00 141 mm[Hg] [facility] Oxygen saturation by 2020-09-16 20:44:00 96 /min [facility] - Pulse oximetry Patients [facility] Heart Rate 2020-09-16 20:44:00 84 /min [facility] Respiratory rate 2020-09-16 20:44:00 21 /min [facility] Body Temperature 2020-09-16 20:44:00 98.0 [degF] [facility] BP Diastolic 2020-09-16 20:42:00 111 mm[Hg] [facility] BP Systolic 2020-09-16 20:42:00 141 mm[Hg] [facility] Heart Rate 2020-09-16 20:42:00 84 /min [facility] - Patients [...] Center Body Temperature 2020-09-16 20:00:00 98.0 [degF] [facility] Patients Med[facility] [...] Center BP Systolic 2020-09-16 07:00:00 173 mm[Hg] [facility] Oxygen saturation by 2020-09-16 07:00:00 95 /min [facility] - Pulse oximetry Patients [facility] Heart Rate 2020-09-16 07:00:00 73 /min [facility] Respiratory rate 2020-09-16 07:00:00 20 /min [facility] Body Temperature 2020-09-16 07:00:00 98.4 [degF] [facility] BP Diastolic 2020-09-16 06:00:00 78 mm[Hg] [facility] BP Systolic 2020-09-16 06:00:00 178 mm[Hg] [facility] Patients Med[facility] [...] Center BP Diastolic 2020-09-16 04:00:00 71 mm[Hg] [facility] BP Systolic 2020-09-16 04:00:00 139 mm[Hg] [facility] Oxygen saturation by 2020-09-16 04:00:00 96 /min [facility] - Pulse oximetry Patients [facility] Heart Rate 2020-09-16 04:00:00 85 /min [facility] Respiratory rate 2020-09-16 04:00:00 16 /min [facility] BP Diastolic 2020-09-16 03:00:00 69 mm[Hg] [facility] BP Systolic 2020-09-16 03:00:00 135 mm[Hg] [facility] Oxygen saturation by 2020-09-16 03:00:00 95 /min [facility] - Pulse oximetry Patients [facility] Heart Rate 2020-09-16 03:00:00 82 /min [facility] Respiratory rate 2020-09-16 03:00:00 15 /min [facility] Body Temperature 2020-09-16 03:00:00 98.5 [degF] [facility] BP Diastolic 2020-09-16 02:00:00 66 mm[Hg] [facility] BP Systolic 2020-09-16 02:00:00 140 mm[Hg] [facility] Patients [facility] [...] 84 /min [facility] Respiratory rate 2020-09-16 01:00:00 20 /min [facility] BP Diastolic 2020-09-16 00:00:00 86 mm[Hg] [facility] BP Systolic 2020-09-16 00:00:00 173 mm[Hg] [facility] Oxygen saturation by 2020-09-16 00:00:00 94 /min [facility] - Pulse oximetry Patients [facility] Heart Rate 2020-09-16 00:00:00 77 /min [facility] Respiratory rate 2020-09-16 00:00:00 20 [...] 133 mm[Hg] [facility] Oxygen saturation by 2020-09-15 22:00:00 94 /min [facility] - Pulse oximetry Patients [facility] Heart Rate 2020-09-15 22:00:00 78 /min [facility] Respiratory rate 2020-09-15 22:00:00 17 /min [facility] BP Diastolic 2020-09-15 21:00:00 56 mm[Hg] [facility] BP Systolic 2020-09-15 21:00:00 145 mm[Hg] [facility] Oxygen saturation by 2020-09-15 21:00:00 93 /min [facility] - Pulse oximetry Patients [facility] Heart Rate 2020-09-15 21:00:00 79 /min [facility] Respiratory rate 2020-09-15 21:00:00 17 /min [facility] Oxygen saturation by 2020-09-15 20:50:00 94 /min [facility] - Pulse oximetry Patients [facility] Heart Rate 2020-09-15 20:50:00 81 /min [facility] Respiratory rate 2020-09-15 20:50:00 18 /min [facility] BP Diastolic 2020-09-15 20:00:00 56 mm[Hg] [facility] BP Systolic 2020-09-15 20:00:00 165 mm[Hg] [facility] Oxygen saturation by 2020-09-15 20:00:00 97 /min [facility] - Pulse oximetry Patients [facility] Heart Rate 2020-09-15 20:00:00 76 /min [facility] Respiratory rate 2020-09-15 20:00:00 22 /min [facility] Oxygen saturation by 2020-09-15 19:00:00 96 [...] 154 mm[Hg] [facility] Oxygen saturation by 2020-09-15 18:00:00 94 /min [facility] - Pulse oximetry Patients [facility] Heart Rate 2020-09-15 18:00:00 79 /min [facility] Respiratory rate 2020-09-15 18:00:00 19 /min [facility] BP Diastolic 2020-09-15 17:00:00 65 mm[Hg] [facility] BP Systolic 2020-09-15 17:00:00 154 mm[Hg] [facility] Oxygen saturation by 2020-09-15 17:00:00 95 [...] Center BP Systolic 2020-09-15 16:00:00 159 mm[Hg] [facility] Oxygen saturation by 2020-09-15 16:00:00 94 /min [facility] - Pulse oximetry Patients [facility] Heart Rate 2020-09-15 16:00:00 75 /min [facility] Respiratory rate 2020-09-15 16:00:00 16 /min [facility] BP Diastolic 2020-09-15 15:14:00 71 mm[Hg] [facility] BP Systolic 2020-09-15 15:14:00 169 mm[Hg] [facility] Oxygen saturation by 2020-09-15 15:14:00 100 /min [facility] Pulse oximetry Patients [facility] Heart Rate 2020-09-15 15:14:00 75 /min [facility] Body Temperature 2020-09-15 15:14:00 97.7 [degF] [facility] BP Diastolic 2020-09-15 15:10:00 66 mm[Hg] [facility] BP Systolic 2020-09-15 15:10:00 156 mm[Hg] [facility] Oxygen saturation by 2020-09-15 15:10:00 100 /min [facility] - Pulse oximetry Patients [facility] Heart Rate 2020-09-15 15:10:00 74 /min [facility] Respiratory rate 2020-09-15 15:10:00 18 /min [facility] BP Diastolic 2020-09-15 14:50:00 84 mm[Hg] [facility] BP Systolic 2020-09-15 14:50:00 176 mm[Hg] [facility] Oxygen saturation by 2020-09-15 14:50:00 100 /min [facility] - Pulse oximetry Patients [facility] Heart Rate 2020-09-15 14:50:00 81 /min [facility] Respiratory rate 2020-09-15 14:50:00 18 /min [facility] BP Diastolic 2020-09-15 14:40:00 94 mm[Hg] [facility] BP Systolic 2020-09-15 14:40:00 200 mm[Hg] [facility] Oxygen saturation by 2020-09-15 14:40:00 97 /min [facility] - Pulse oximetry Patients [facility] Heart Rate 2020-09-15 14:40:00 96 /min [facility] Respiratory rate 2020-09-15 14:40:00 16 /min [facility] BP Diastolic 2020-09-15 14:25:00 96 mm[Hg] [facility] BP Systolic 2020-09-15 14:25:00 175 mm[Hg] [facility] Oxygen saturation by 2020-09-15 14:25:00 98 /min [facility] - Pulse oximetry Patients [facility] Heart Rate 2020-09-15 14:25:00 99 /min [facility] Respiratory rate 2020-09-15 14:25:00 16 /min [facility] Body Temperature 2020-09-15 14:25:00 98.0 [degF] [facility] BP Diastolic 2020-09-15 11:14:00 67 mm[Hg] [facility] Patients [facility] BP Systolic 2020-09-15 11:14:00 177 mm[Hg] [facility] Oxygen saturation by 2020-09-15 11:14:00 94 /min [facility] - Pulse oximetry Patients [facility] Heart Rate 2020-09-15 11:14:00 70 /min [facility] Respiratory rate 2020-09-15 11:14:00 18 /min [facility] Body Temperature 2020-09-15 11:14:00 97.6 [degF] [facility] BP Diastolic 2020-09-15 08:52:00 75 [...] Center BP Diastolic 2020-09-14 20:27:00 80 mm[Hg] [facility] BP Systolic 2020-09-14 20:27:00 180 mm[Hg] [facility] Oxygen saturation by 2020-09-14 20:27:00 92 /min [facility] - Pulse [facility]ximetry Patients [facility] Heart Rate 2020-09-14 20:27:00 90 /min [facility] Respiratory rate 2020-09-14 20:27:00 20 /min [facility] Body Temperature 2020-09-14 20:27:00 98.5 [degF] [facility] BP Diastolic 2020-09-14 20:00:00 80 mm[Hg] [facility] BP Systolic 2020-09-14 20:00:00 180 mm[Hg] [facility] Patients Medica l [...] Center BP Systolic 2020-09-14 11:15:00 165 mm[Hg] [facility] Oxygen saturation by 2020-09-14 11:15:00 93 /min [facility] Pulse [facility]ximetry Patients [facility] Heart Rate 2020-09-14 11:15:00 89 /min [facility] Respiratory rate 2020-09-14 11:15:00 19 /min [facility] Body Temperature 2020-09-14 11:15:00 98.3 [degF] [facility] BP Diastolic 2020-09-14 07:49:00 67 mm[Hg] [facility] BP Systolic 2020-09-14 07:49:00 166 mm[Hg] [facility] Patients Medica l [...] Center BP Systolic 2020-09-13 00:00:00 150 mm[Hg] [facility] l [...] [facility] Body Temperature 2020-09-12 22:28:00 97.9 [degF] [facility] BP Diastolic 2020-09-12 22:18:00 92 mm[Hg] [facility] BP Systolic 2020-09-12 22:18:00 150 mm[Hg] [facility] Oxygen saturation by 2020-09-12 22:18:00 95 /min [facility] Pulse [facility]xim[facility] Patients [facility] Heart Rate 2020-09-12 22:18:00 96 /min [facility] Respiratory rate 2020-09-12 22:18:00 18 /min [facility] Body Temperature 2020-09-12 22:18:00 97.9 [degF] [facility] BP Diastolic 2020-09-12 20:23:00 92 mm[Hg] [facility] BP Systolic 2020-09-12 20:23:00 150 mm[Hg] [facility] Oxygen saturation by 2020-09-12 20:23:00 96 /min [facility] Pulse [facility]ximetry Patients [facility] Heart Rate 2020-09-12 20:23:00 95 /min [facility] Respiratory rate 2020-09-12 20:23:00 18 /min [facility] Body Temperature 2020-09-12 20:23:00 97.9 [degF] [facility] Oxygen saturation by 2020-09-12 20:11:00 96 /min [facility] Pulse [facility]ximetry Patients [facility] Oxygen saturation by 2020-09-12 18:25:00 98 /min [facility] Pulse [facility]ximetry Patients [facility] Oxygen saturation by 2020-09-12 15:35:00 98 /min [facility] - Pulse oximetry Patients [facility] Procedures Procedure Date / Time Performing Clinician Source Performed XR CHEST 1 VW PORTABLE 2021-07-12 01:01:53 Bro Freeman [facility] COVID-19 ANTI-SPIKE IGG 2021-07-11 10:41:00 [facility] ANTIBODY TITER COVID-19 SEROLOGY PATIENT 2021-07-11 10:41:00 [facility] SURVEILLANCE HC COMPLETE BLD COUNT 2021-07-11 10:41:00 [facility] W/AUTO DIFF BASIC METABOLIC PANEL 2021-07-11 10:41:00 [facility] ESTIMATED GFR 2021-07-11 10:41:00 [facility] URINE CULTURE 2021-07-11 06:57:[address] [facility] spital URINALYSIS SCREEN AND 2021-07-11 04:07:00 Latrell Sharpe [facility] MICROSCOPY, WITH REFLEX TO CULTURE POC GLUCOSE 2021-07-11 00:27:00 [facility] POC GLUCOSE 2021-07-10 14:52:00 [facility] HC COMPLETE BLD COUNT 2021-07-10 10:51:00 [facility] W/AUTO DIFF BASIC METABOLIC PANEL 2021-07-10 10:51:00 [facility] ESTIMATED GFR 2021-07-10 10:51:00 [facility] POC GLUCOSE 2021-07-10 02:09:[address] [facility] [address] CHEST WO CONTRAST 2021-07-09 21:47:19 [facility] Latrell [facility] HC COMPLETE BLD COUNT 2021-07-09 11:14:00 [facility] W/AUTO DIFF BASIC METABOLIC PANEL 2021-07-09 11:14:00 [facility] ESTIMATED GFR 2021-07-09 11:14:00 [facility] BLOOD CULTURE, AEROBIC & 2021-07-09 08:54:00 [facility] ANAEROBIC Trav R. TROPONIN T 2021-07-09 07:57:00 [facility] THYROID STIMULATING 2021-07-09 07:57:00 [facility] HORMONE T4, FREE 2021-07-09 07:57:00 [facility] LIPID PANEL 2021-07-09 07:57:00 [facility] INTERLEUKIN 6 2021-07-09 07:57:00 [facility] CRP HIGH SENSITIVITY 2021-07-09 07:57:00 [facility] LDH 2021-07-09 07:57:00 [facility] D-DIMER 2021-07-09 07:57:00 [facility] PROCALCITONIN 2021-07-09 07:57:00 [facility] PROTHROMBIN TIME WITH INR 2021-07-09 07:57:00 [facility] SEDIMENTATION RATE 2021-07-09 07:57:00 [facility] FERRITIN LEVEL 2021-07-09 07:57:00 [facility] ECG 12-LEAD 2021-07-09 06:58:43 [facility] XR CHEST 1 VW PORTABLE 2021-07-09 05:32:00 [facility] Trav R. TROPONIN T 2021-07-09 04:50:[address] [facility] CT HEAD WO CONTRAST 2021-07-09 01:50:00 [facility] Trav R. COVID-19 QUALITATIVE 2021-07-09 01:34:00 [facility] RT-PCR Trav R. COVID-19 OMICRON VARIANT 2021-07-09 01:34:00 [facility] QUALITATIVE RT-PCR Trav Lockhart HC COMPLETE BLD COUNT 2021-07-09 01:34:00 [facility] W/AUTO DIFF Trav R. PROTHROMBIN TIME WITH INR 2021-07-09 01:34:00 [facility] Trav R. PARTIAL THROMBOPLASTIN 2021-07-09 01:34:00 [facility] TIME (PTT) Trav R. BASIC METABOLIC PANEL 2021-07-09 01:34:00 [facility] Trav R. TROPONIN T 2021-07-09 01:34:00 [facility] B NATRIURETIC PEPTIDE 2021-07-09 01:34:00 [facility] Trav R. ESTIMATED GFR 2021-07-09 01:34:[address] [facility] spital Trav R. ECG 12-LEAD 2021-07-08 22:51:[address] [facility] spital Trav R. CT RENAL STONE PROTOCOL 2021-07-01 18:38:22 [facility] URINALYSIS 2021-07-01 18:13:00 [facility] HC COMPLETE BLD COUNT 2021-04-23 10:03:00 [facility] W/AUTO DIFF BASIC METABOLIC PANEL 2021-04-23 10:03:00 [facility] ESTIMATED GFR 2021-04-23 10:03:00 [facility] CT CARDIAC OVERREAD 2021-04-20 15:36:45 [facility] CV CTA CORONARY ARTERIES 2021-04-20 15:36:00 [facility] W CONTRAST HC COMPLETE BLD COUNT 2021-04-20 11:45:00 [facility] W/AUTO DIFF BASIC METABOLIC PANEL 2021-04-20 11:45:00 [facility] ESTIMATED GFR 2021-04-20 11:45:00 [facility] POC GLUCOSE 2021-04-19 13:28:00 [facility] CV CARDIAC PET STRESS 2021-04-19 13:18:51 Bebeto [facility] TEST CV CARDIAC PET MYOCARDIAL 2021-04-19 13:18:51 Bebeto [facility] PERFUSION IMAGING TROPONIN 2021-04-19 09:43:00 Jaclyn Tate spital BASIC METABOLIC PANEL 2021-04-19 09:43:00 Bebeto [facility] ESTIMATED GFR 2021-04-19 09:43:00 Rafy Tateammilan Burns spital TTE LIMITED W CONTRAST, W 2021-04-18 17:20:00 Bebeto [facility] DOPPLER ([id number]) HC COMPLETE BLD COUNT 2021-04-18 14:31:00 [facility] W/AUTO DIFF BASIC METABOLIC PANEL 2021-04-18 14:31:00 [facility] ESTIMATED GFR 2021-04-18 14:31:00 [facility] B NATRIURETIC PEPTIDE 2021-04-18 09:20:00 Bebeto [facility] HC COMPLETE BLD COUNT 2021-04-16 08:35:00 [facility] W/AUTO DIFF BASIC METABOLIC PANEL 2021-04-16 08:35:00 [facility] ESTIMATED GFR 2021-04-16 08:35:00 [facility] POC GLUCOSE 2021-04-15 15:09:00 [facility] BASIC METABOLIC PANEL 2021-04-14 09:00:00 [facility] ESTIMATED GFR 2021-04-14 09:00:00 [facility] HC COMPLETE BLD COUNT 2021-04-14 08:40:00 [facility] W/AUTO DIFF PARTIAL THROMBOPLASTIN 2021-04-14 08:40:00 Rafy [facility] TIME (PTT) PARTIAL THROMBOPLASTIN 2021-04-13 22:47:[address] [facility] TIME (PTT) HC COMPLETE BLD COUNT 2021-04-13 15:52:00 Fifi [facility] W/AUTO DIFF HC COMPLETE BLD COUNT 2021-04-13 11:34:00 [facility] W/AUTO DIFF SMEAR REVIEW 2021-04-13 11:34:00 [facility] HC COMPLETE BLD COUNT 2021-04-13 09:55:00 Fifi [facility] W/AUTO DIFF BASIC METABOLIC PANEL 2021-04-13 09:55:00 [facility] B NATRIURETIC PEPTIDE 2021-04-13 09:55:00 Attzulay [facility] ESTIMATED GFR 2021-04-13 09:55:00 [facility] PARTIAL THROMBOPLASTIN 2021-04-13 09:55:[address] [facility] TIME (PTT) TROPONIN 2021-04-13 09:00:00 Jaclyn Tate spital PARTIAL THROMBOPLASTIN 2021-04-13 02:20:[address] [facility] TIME (PTT) TROPONIN 2021-04-12 23:00:00 Char Palomo spital TROPONIN 2021-04-12 15:34:00 Char Palomo spital PROTHROMBIN TIME WITH INR 2021-04-12 15:34:00 Bebeto [facility] PARTIAL THROMBOPLASTIN 2021-04-12 15:34:[address] [facility] TIME (PTT) ANTI XA APIXABAN 2021-04-12 15:34:00 Jaclyn Tate ospital TTE COMPLETE, WO 2021-04-12 14:14:00 Jaclyn Tate ospital CONTRAST, W DOPPLER ([id number]) TROPONIN 2021-04-12 09:21:00 Char Palomo spital B NATRIURETIC PEPTIDE 2021-04-12 09:21:00 Char Palomo [facility] MAGNESIUM LEVEL 2021-04-12 09:21:00 Char Palomo spital PHOSPHORUS LEVEL 2021-04-12 09:21:00 Char Palomo ospital XR CHEST 1 VW PORTABLE 2021-04-12 08:46:00 [facility] ECG 12-LEAD 2021-04-12 08:03:09 [facility] COVID-19 ANTI-SPIKE IGG 2021-04-12 08:01:00 [facility] ANTIBODY TITER COVID-19 SEROLOGY PATIENT 2021-04-12 08:01:00 [facility] SURVEILLANCE HC COMPLETE BLD COUNT 2021-04-12 08:01:00 [facility] W/AUTO DIFF BASIC METABOLIC PANEL 2021-04-12 08:01:00 [facility] LIPID PANEL 2021-04-12 08:01:00 [facility] THYROID STIMULATING 2021-04-12 08:01:00 [facility] HORMONE T4, FREE 2021-04-12 08:01:00 [facility] ESTIMATED GFR 2021-04-12 08:01:00 [facility] RESPIRATORY PATHOGEN 2021-04-12 07:27:00 [facility] PANEL WITH COVID-19 RT-PCR US DUPLEX VENOUS LOWER 2021-03-10 01:23:00 [facility] EXTREMITY BILATERAL XR CHEST 1 VW 2021-03-10 00:19:00 [facility] COMPREHENSIVE METABOLIC 2021-03-10 00:17:00 [facility] PANEL CBC WITH PLATELET AND 2021-03-10 00:17:00 [facility] DIFFERENTIAL B NATRIURETIC PEP, I-STAT 2021-03-10 00:17:00 [facility] TROPONIN, I-STAT 2021-03-10 00:17:00 Ofelia Celestin ospital ESTIMATED GFR 2021-03-10 00:17:00 [facility] MANUAL DIFFERENTIAL 2021-03-10 00:17:00 [facility] ECG ED PRELIMINARY 2021-03-10 00:16:14 [facility] INTERPRETATION ECG 12-LEAD 2021-03-09 23:55:17 Ofelia Celestin barry HC COMPLETE BLD COUNT 2021-02-23 09:51:00 [facility] W/AUTO DIFF BASIC METABOLIC PANEL 2021-02-23 09:51:00 [facility] ESTIMATED GFR 2021-02-23 09:51:00 [facility] HC COMPLETE BLD COUNT 2021-02-22 09:32:00 [facility] W/AUTO DIFF BASIC METABOLIC PANEL 2021-02-22 09:32:00 [facility] ESTIMATED GFR 2021-02-22 09:32:00 [facility] HC COMPLETE BLD COUNT 2021-02-21 09:50:00 [facility]/AUTO DIFF BASIC METABOLIC PANEL 2021-02-21 09:50:00 [facility] LIPID PANEL 2021-02-21 09:50:00 [facility] ESTIMATED GFR 2021-02-21 09:50:00 [facility] COVID-19 ANTI-SPIKE IGG 2021-02-20 23:58:00 [facility] ANTIBODY TITER COVID-19 SEROLOGY PATIENT 2021-02-20 23:58:00 [facility] SURVEILLANCE THYROID STIMULATING 2021-02-20 23:58:00 [facility] HORMONE T4, FREE 2021-02-20 23:58:00 [facility] FERRITIN LEVEL 2021-02-20 23:58:00 [facility] LDH 2021-02-20 23:58:00 [facility] SEDIMENTATION RATE 2021-02-20 23:58:00 [facility] CRP HIGH SENSITIVITY 2021-02-20 23:58:00 [facility] INTERLEUKIN 6 2021-02-20 23:58:00 [facility] PROCALCITONIN 2021-02-20 23:58:00 [facility] D-DIMER 2021-02-20 23:58:00 [facility] PROTHROMBIN TIME WITH INR 2021-02-20 23:58:00 [facility] TROPONIN, I-STAT 2021-02-20 15:35:00 [facility] COVID-19 QUALITATIVE 2021-02-20 14:41:00 Osmel Fowler [facility] RT-PCR CT ANGIOGRAM PE CHEST 2021-02-20 13:52:50 Osmel Fowler [facility] US DUPLEX VENOUS LOWER 2021-02-20 12:59:12 K[facility] EXTREMITY RIGHT Narendra URINALYSIS 2021-02-20 12:35:00 [facility] XR CHEST 1 VW PORTABLE 2021-02-20 12:15:13 [facility] Narendra BASIC METABOLIC PANEL 2021-02-20 12:10:00 Isaac Quiles [facility] Narendra ESTIMATED GFR 2021-02-20 12:10:00 Isaac Quiles spital Narendra RESPIRATORY PATHOGEN 2021-02-20 12:05:00 [facility] WITH [facility]-19 Narendra RT-PCR COMPREHENSIVE METABOLIC 2021-02-20 11:55:00 Isaac Quiles [facility] PANEL Narendra CBC WITH PLATELET AND 2021-02-20 11:55:00 Isaac Quiles [facility] DIFFERENTIAL Narendra CREATINE KINASE, TOTAL 2021-02-20 11:55:00 [facility] ([facility]) Narendra TROPONIN, I-STAT 2021-02-20 11:55:00 [facility] ESTIMATED GFR 2021-02-20 11:55:00 Isaac Quiles spital Narendra PROTHROMBIN TIME WITH 2021-02-20 11:55:00 Kb [facility] INR, I-STAT Narendra MANUAL DIFFERENTIAL 2021-02-20 11:55:00 Isaac Quiles [facility] Narendra ECG 12-LEAD 2021-02-20 11:33:15 [facility]ra ECG ED PRELIMINARY 2021-02-20 11:32:10 Isaac Quiles [facility] INTERPRETATION Narendra PHYSICIAN ORDERS 2021-01-24 05:01:00 Doctor Unassigned, [facility] [place] [facility] CT CERVICAL SPINE WO 2021-01-16 05:11:15 Mumtaz Swanson [facility] CONTRAST Medical Branch CT HEAD WO CONTRAST 2021-01-16 05:11:15 Mumtaz Swanson [facility] Medical Cov[facility] NOTICE OF PRIVACY 2021-01-16 04:10:39 Doctor Unassigned, [facility] PRACTICES [place] [facility] CT HEAD WO CONTRAST 2021-01-11 01:54:48 Sushma Juarez [facility] CONSENT/REFUSAL FOR 2021-01-10 23:21:01 Doctor Unassigned, [facility] DIAGNOSIS AND TREATMENT [place] [facility] NOTICE OF PRIVACY 2020-12-29 19:06:49 Doctor Unassigned, [facility] [place] [facility] CONSENT/REFUSAL FOR 2020-12-29 19:06:22 Doctor Unassigned[facility] TREATMENT [place] [facility] ASSIGNMENT OF BENEFITS 2020-12-29 19:06:04 [facility] [place] [facility] ASSIGNMENT OF BENEFITS 2020-12-29 17:51:14 Doctor Unassigned, Un [facility] [place] [facility] HC COMPLETE BLD COUNT 2020-12-03 10:00:00 [facility] W/AUTO DIFF BASIC METABOLIC PANEL 2020-12-03 09:00:00 [facility] ESTIMATED GFR 2020-12-03 09:00:00 [facility] MRI BRAIN WO CONTRAST 2020-12-02 17:48:00 [facility] BASIC METABOLIC PANEL 2020-12-02 08:52:00 [facility] ESTIMATED GFR 2020-12-02 08:52:00 [facility] HC COMPLETE BLD COUNT 2020-12-02 08:38:00 [facility] W/AUTO DIFF US CAROTID DUPLEX 2020-12-01 20:45:00 [facility] BILATERAL TTE COMPLETE, WO 2020-12-01 16:39:21 [facility] CONTRAST, W DOPPLER ([id number]) HC COMPLETE BLD COUNT 2020-12-01 09:30:00 [facility] W/AUTO DIFF BASIC METABOLIC PANEL 2020-12-01 09:00:00 [facility] ESTIMATED GFR 2020-12-01 09:00:00 [facility] LIPID PANEL 2020-12-01 02:15:00 [facility] THYROID STIMULATING 2020-12-01 02:15:00 [facility] HORMONE T4, FREE 2020-12-01 02:15:00 [facility] TROPONIN 2020-12-01 02:15:00 [facility] HEMOGLOBIN A1C 2020-12-01 01:15:00 [facility] URINALYSIS, AUTOMATED 2020-11-30 22:23:00 [facility] WITH MICROSCOPY [facility] COVID-19 QUALITATIVE 2020-11-30 21:44:00 [facility] RT-PCR [facility] CT HEAD WO CONTRAST 2020-11-30 19:03:[address] [facility] [address] ANGIOGRAM PE CHEST 2020-11-30 19:03:13 [facility] ECG ED PRELIMINARY 2020-11-30 17:08:13 [facility] INTERPRETATION Олег HC COMPLETE BLD COUNT 2020-11-30 16:15:00 [facility] W/AUTO DIFF [facility] PROTHROMBIN TIME WITH INR 2020-11-30 16:15:00 [facility] PARTIAL THROMBOPLASTIN 2020-11-30 16:15:00 [facility] TIME (PTT) [facility] COMPREHENSIVE METABOLIC 2020-11-30 16:15:00 ParkinsonElliot lino [facility] PANEL Олег TROPONIN 2020-11-30 16:15:00 [facility] Олег B NATRIURETIC PEPTIDE 2020-11-30 16:15:00 Elliot Parkinson [facility] Олег ESTIMATED GFR 2020-11-30 16:15:00 [facility] Олег D-DIMER 2020-11-30 16:15:00 Elliot Parkinson Muslim ospital Олег ECG 12-LEAD 2020-11-30 15:58:05 Elliot Parkinson Muslim H ospital Олег Computed tomography of 2020-09-20 00:00:00 RUSTAM Bruno - chest with contrast Patients [facility] Exploratory laparotomy 2020-09-15 00:00:00 RUSTAM Bruno - Patients [facility] CT of abdomen and pelvis 2020-03-02 00:00:00 RUSTAM Arora - without contrast Patients [facility] EXTERNAL PROVIDER RECORDS 2019-01-27 05:01:00 Doctor Unassigned, [facility] [place] [facility] Plan of Care Planned Activity Planned Date Details Comments Source Future Scheduled 2021-08-08 65+ [facility] VACCINE (1 of 4 - PCV13) [code = 65+ PNEUMOCOCCAL VACCINE (1 of 4 - PCV13)] Future Scheduled 2021-08-08 SHINGLES VACCINES (#1) M [facility] Test 13:10:32 [code = SHINGLES VACCINES (#1)] Future Scheduled 2021-08-08 COVID-19 VACCINE (3 - Me [facility] Test 13:10:32 Booster for Moderna series) [code = COVID-19 VACCINE (3 - Booster for Moderna series)] Encounters Start End Encounter Admission Attending Care Care Encounter Source Date/Time Date/Time Type Type Clinicians Facility Department ID 2021-04-30 Emergency [facility] [id number] [facility] [id number] Univers 08:16:39 [facility] 2020-09-[address] [facility] [id number] [facility] 15:27:00 -[id number] [facility] 2021-07-08 2021-07-13 [facility] Trav Arias. 1.2.84 0.1 [id number] Methodi 16:46:00 12:51:00 Encounter Vadim Bo [id number] 3.430.2.7 Hospit a .3.345411 l .8 2021-07-08 2021-07-08 Travel 1.2.840.1 [id number] Methodi 00:00:00 00:00:[id number] 3.430.2.7 0.2.7.3.698 Ho spita .3.586193 084.8 l .8 2021-07-01 2021-07-01 Emergency [facility], 1.2.840.1 [id number] Methodi 11:41:00 13:43:[id number] 3.430.2.7 Hospit a .3.009869 l .8 2021-06-18 2021-06-18 Outpatient 2030_Biopsy [place] [id number] [place] 12:38:00 12:38:00 [id number] [facility] 2021-05-03 2021-05-03 [facility] 1.2.840.1 [id number] Methodi 00:00:00 00:00:00 Ros Fernandez [id number] 3.430.2.7 Hospit a .3.560492 l .8 2021-04-11 2021-04-23 [facility] Fifi 1.2.840.1 [id number] Methodi 23:25:00 17:41:00 Encounter Vadim Briscoe [id number] 3.430.2.7 Hospit a .3.866370 l .8 2021-04-19 2021-04-19 [facility] [id number] Methodi 07:00:00 23:59:00 Encounter Jaclyn [id number] 3.430.2.7 Hospit a .3.906886 l .8 2021-03-09 2021-03-09 Emergency Ofelia Celestin 1.2.840.1 [id number] Methodi 18:40:00 21:02:[id number] 3.430.2.7 Hospit a .3.050502 l .8 2021-03-09 2021-03-09 Travel 1.2.840.1 1.2.815.886 [id number] Methodi 00:00:00 00:00:[address] 3.430.2.7 0.2.7.3.698 Ho spita .3.876909 084.8 l .8 2021-02-20 2021-02-23 [facility] Dusty 1.2.840.1 [id number] Methodi 06:07:00 13:24:00 Encounter Vadim Bo [address]2689.1.[address] 3.430.2.7 Hospit a .3.828278 l .8 2021-02-20 2021-02-20 Travel 1.2.840.1 1.2.690.773 0118 [id number] Methodi 00:00:00 00:00:[address] 3.430.2.7 0.2.7.3.698 Ho spita .3.315466 084.8 l .8 2021-01-30 2021-01-30 Outpatient Rebecca DAHL, [facility] [id number] Univers 14:30:00 14:30:00 KINA isbell [facility] 2021-01-24 2021-01-24 Computerized Mill Recorder Fred Leon Lab Main [facility] 1.2.8 40.114 [id number] Univers 15:50:12 16:05:12 Visit David Cruz 350.1.13.1 0 Rosey 4.2.7.2.686 Dipak Rodriguezio [phone] N[place] dical nal [address] [facility] 2021-01-24 2021-01-24 Outpatient R [facility] [id number] -20 Univers 16:00:00 16:00:00 [id number] ity of [facility] 2021-01-24 2021-01-24 Outpatient R ANTHONY, [facility] 96898 [id number] Univers 16:00:00 16:00:00 DAVID ity of [facility] 2021-01-24 2021-01-24 Orders Doctor DAVID 1.2.840.114 [id number] Univers 00:00:00 00:00:00 Only Unassigned, GREGORY 350.1.13.10 ity of [place] [facility] 4.2.7.2.686 Flash as [phone] [facility] [address] 2021-01-15 2021-01-16 Emergency [facility] 1.2.035.113 0738 [id number] Univers 23:22:00 03:17:00 Mumtaz Tineo 350.1.13.10 i ty of [place] 4.2.7.2.686 [facility] [place] [phone] [facility] 084 Branch 2021-01-10 2021-01-10 Emergency Amalia, Sagar [facility] 1.2.840.114 [id number] Univers 18:49:00 22:03:00 May Tineo 350.1.13.10 i ty of [place] 4.2.7.2.686 [facility] [place] [phone] [facility] 084 Branch 2020-12-29 2020-12-29 [facility] 1.2.840.114 [id number] Univers 14:04:19 23:59:00 Encounter Melody Tineo 350.1.13.10 ity of [place] 4.2.7.2.686 [facility] [place] [phone] [facility] 807 Branch 2020-12-29 2020-12-29 [facility] 1.2.840.114 [id number] Univers 14:00:00 14:03:00 Encounter Melody Tineo 350.1.13.10 ity of [place] 4.2.7.2.686 [place] [facility] [id number] [facility] 807 [place] 2020-12-29 2020-12-29 Outpatient VAL, [facility] [id number] -20 Univers 14:00:00 14:00:00 MELODY [id number] [facility] 2020-12-29 2020-12-29 [facility] 1.2.840.114 [id number] 12:52:54 13:35:06 Visit Melody [facility] 350.1.13.10 [place] 4.2.7.2.686 Professio [id number] [address] One 2020-12-29 2020-12-29 Office [facility] 1.2.840.114 [id number] Univers 12:52:54 13:35:06 Visit Melody [facility] 350.1.13.10 i ty of [place] 4.2.7.2.686 Flash as Professio [phone] Nj dical [address] One 2020-12-29 2020-12-29 Outpatient R [facility] [id number] Univers 13:00:00 13:00:00 MELODY [facility] 2020-12-29 2020-12-29 Orders Doctor DAVID 1.2.840.114 [id number] Univers 00:00:00 00:00:00 Only Unassigned, GREGORY 350.1.13.10 ity [place] [facility] 4.2.7.2.686 Flash as [phone] [facility] 009 Branch 2020-11-30 2020-12-04 [facility] Elliot Parkinson 1.2.840.1 [id number] Methodi 10:51:00 15:23:00 Encounter Vadim Bo 28651.1.[address] 3.430.2.7 Hospit a .3.770199 l .8 2020-11-30 2020-11-30 Travel 1.2.840.1 1.2.112.772 1174 [id number] Methodi 00:00:00 00:00:[address] 3.430.2.7 0.2.7.3.698 Ho spita .3.251229 084.8 l .8 2020-09-12 2020-09-28 Discharged 1 YENY, [facility] U[address]88 [id number] 19:18:00 13:20:00 Inpatient SOUHEIL Patients 99 [facility] 2020-03-02 2020-03-[address] [facility] [id number] 14:00:00 14:00:00 -[id number] [place] - Patient [facility] 2020-03-02 2020-03-02 Registered 3 YENY, [facility] [id number] 13:32:00 13:32:00 Clinic JEANNINE Patients 29 [facility] 2020-02-24 2020-02-[address] [facility] [id number] 14:00:00 14:00:00 -[id number] [place] - Patient [facility] 2020-02-23 2020-02-[address] [facility] [id number] 12:00:00 12:00:00 -[id number] [place] - Patient [facility] 2019-01-27 2019-01-27 Orders Doctor DAVID 1.2.840.114 [id number] Univers 00:00:00 00:00:00 Only Unassigned, GREGORY 350.1.13.10 ity of [place] [facility] 4.2.7.2.686 Flash as [phone] [place] [address] Branch Results Test Description Test Time Test Comments Results Result Comments Source Urine culture 2021-07-11 07:18:43 Test Item Value Reference Range Interpretation Comme nts Urine culture (test code = 9051264) SEE COMMENT Bacteriuria screen negative. [facility] ubsitym6016-08-35 00:28:29 Test Item Value Reference Range Interpretation Comments POC glucose (test code 140 mg/dL 65-99 H Opera tor Name: Jaimes = 21063-7) Ga ID : [id number] able: [facility] Notified surgical product sales consultant Interpretation Abnormal (test code = 17352-3) [facility] xcid8964-74-20 21:20:43 Test Item Value Reference Range Interpretation Comments Ventricular rate (test code = 253) Atrial rate (test code = 255) AK interval (test code = 266) QRSD interval (test code = 260) QT interval (test code = 264) QTC interval (test code = 265) P axis 1 (test code = 267) QRS axis 1 (test code = 268) T wave axis (test code = 270) EKG impression (test Normal sinus code = 273) rhythm-Left axis deviation-Minimal voltage criteria for LVH, may be normal variant ( [place] product )-Septal infarct , age undetermined-Abnormal ECG- [facility] stress fnrr8385-01-45 11:08:47 Test Item Value Reference Range Interpretation Comments Resting HR (test code = 9216040088) Resting BP (test code 132&63 = 4653840060) Peak MET Achieved (test code = 9475266840) Protocol Name (test Lexiscan code = 5346183926) Time in Exercise 00:01:00 Phase (test code = 5983297977) Max Systolic BP (test code = 9208392119) Max Diastolic BP (test code = 6536617130) Max Heart Rate (test code = 3944755970) Max Predicted Heart Rate (test code = 9282195710) Target HR Formula (220 - Age)*100% (test code = 8538018290) Test Indication (test Screening for CAD code = 9787069266) Arrhy During Ex (test code = 9435558974) ECG Interp Before EX (test code = 6897268895) ECG Interp During Ex (test code = 4599431231) Ex Summary Comment (test code = 7540647868) Overall HR Response to Exercise (test code = 5422108590) Overall BP Response To Exercise (test code = 7694919227) Reason for Protocol Complete Termination (test code = 6207234745) Stress Test -Waveform interpreted in Impression (test code report associated with = 2700386217) image study. No interpretation is provided as part of this Stress ECG report.- [facility] RXZCMBCF4410-61-01 01:56:56 No acute intracranial abnormality. CT HEAD WO CONTRAST HISTORY: Male 89 years Head trauma, mod-severe hit right side of head onconcrete with fall; takes blood thinner COMPARISON: None TECHNIQUE: Noncontrast CT images of the head with multiplanar reformats. FINDINGS: The ventricles and sulci are normal in size and configuration for patientage. No intracranial abnormality such as hemorrhage, edema, mass- effect,midline shift, hydrocephalus or pathologic extra axial fluid [...] and mastoidair cells are clear. Left pseudophakia. [facility], Radiant Results Inft User - 01/10/2021 [...] cells are clear. Left pseudophakia.IMPRESSIONNo acute intracranial abnormality.[facility] leukocytes automated count (number/volume)2020-09-28 05:25:00 Test Item Value Reference Range Interpretation Comments White Blood Count (test code = 6690-2) 10.37 4.8-10.8 [facility] automated count (number/volume)2020-09-28 05:25:00 Test Item Value Reference Range Interpretation Comments Red Blood Count (test code = 789-8) 3.00 4.3-5.7 [facility] hemoglobin measurement (moles/volume)2020-09-28 05:25:00 Test Item Value Reference Range Interpretation Comments Hemoglobin (test code = 77468-1) 9.1 14.0-18.0 [facility] Brook[facility]ated blood hematocrit (volume fraction)2020-09-28 05:25:00 Test Item Value Reference Range Interpretation Comments Hematocrit (test code = 4544-3) 26.0 38.2-49.6 [facility] BrookAutomated erythrocyte mean corpuscular tikbns3233-02-84 05:25:00 Test Item Value Reference Range Interpretation Comments Mean Corpuscular Volume (test code = 86.7 81-99 787-2) [facility] Brook[facility] erythrocyte mean corpuscular hemoglobin (mass per erythrocyte)2020-09-28 05:25:00 Test Item Value Reference Range Interpretation Comments Mean Corpuscular Hemoglobin (test code 30.3 28-32 = 785-6) [facility] BrookAutomated erythrocyte mean corpuscular hemoglobin concentration measurement (mass/volume)2020-09-28 05:25:00 Test Item Value Reference Range Interpretation Comments Mean Corpuscular Hemoglobin Concent 35.0 31-35 (test code = 786-4) [facility] BrookRDW IujRq-Lgf2938-56-01 05:25:00 Test Item Value Reference Range Interpretation Comments Red Cell Distribution Width (test code 16.1 11.7-14.4 = 39685-1) [facility] Brook[facility]ated blood platelet count (count/volume)2020-09-28 05:25:00 Test Item Value Reference Range Interpretation Comments Platelet Count (test code = 777-3) 253 140-360 [facility] BrookAutomated blood segmented neutrophil count as percentage of total cyuiakzoqd6531-89-41 05:25:00 Test Item Value Reference Range Interpretation Comments Neutrophils (%) (Auto) (test code = 77.9 38.7-80.0 00815-9) [facility] BrookAutomated blood lymphocyte count as percentage ot total tdvhrsfxpr1535-64-65 05:25:00 Test Item Value Reference Range Interpretation Comments Lymphocytes (%) (Auto) (test code = 12.3 18.0-39.1 736-9) [facility] BrookAutomated blood monocyte count as percentage of total mpoffbbtab6129-33-35 05:25:00 Test Item Value Reference Range Interpretation Comments Monocytes (%) (Auto) (test code = 6.4 4.4-11.3 5905-5) [facility] BrookAutomated blood eosinophil count as percentage of total yrywdcumhc6803-88-87 05:25:00 Test Item Value Reference Range Interpretation Comments Eosinophils (%) (Auto) (test code = 1.8 0.0-6.0 713-8) [facility] BrookAutomated blood basophil count as percentage of total vzcqxvzojb0464-16-22 05:25:00 Test Item Value Reference Range Interpretation Comments Basophils (%) (Auto) (test code = 0.4 0.0-1.0 706-2) [facility] BrookFluoroscopic procedure less than one hour tfuisgyk7746-77-78 05:25:00 Test Item Value Reference Range Interpretation Comments IM GRANULOCYTES % (test code = IM 1.2 0.0-1.0 GRANULOCYTES %) [facility] BrookAutomated blood neutrophil count 2020-09-28 05:25:00 Test Item Value Reference Range Interpretation Comments Neutrophils # (Auto) (test code = 8.1 2.1-6.9 751-8) [facility] BrookBlood lymphocytes count (number/volume) 2020-09-28 05:25:00 Test Item Value Reference Range Interpretation Comments Lymphocytes # (Auto) (test code = 1.3 1.0-3.2 11390-1) [facility] monocytes automated count (number/volume)2020-09-28 05:25:00 Test Item Value Reference Range Interpretation Comments Monocytes # (Auto) (test code = 742-7) 0.7 0.2-0.8 [facility] BrookAutomated blood eosinophil count 2020-09-28 05:25:00 Test Item Value Reference Range Interpretation Comments Eosinophils # (Auto) (test code = 0.2 0.0-0.4 711-2) [facility] BrookAutomated blood basophil count (count/volume)2020-09-28 05:25:00 Test Item Value Reference Range Interpretation Comments Basophils # (Auto) (test code = 704-7) 0.0 0.0-0.1 [facility] BrookFluoroscopic procedure less than one hour fjqertpq8212-49-60 05:25:00 Test Item Value Reference Range Interpretation Comments Absolute Immature Granulocyte (auto 0.12 0-0.1 (test code = Absolute Immature Granulocyte (auto) [facility] sodium measurement (moles/volume)2020-09-28 05:25:00 Test Item Value Reference Range Interpretation Comments Sodium Level (test code = 2951-2) 132 136-145 [facility] or plasma potassium measurement (moles/volume)2020-09-28 05:25:00 Test Item Value Reference Range Interpretation Comments Potassium Level (test code = 2823-3) 3.3 3.5-5.1 [facility] or plasma chloride measurement (moles/volume)2020-09-28 05:25:00 Test Item Value Reference Range Interpretation Comments Chloride Level (test code = 2075-0) 106 98-107 [facility] or plasma carbon dioxide, total measurement (moles/volume)2020-09-28 05:25:00 Test Item Value Reference Range Interpretation Comments Carbon Dioxide Level (test code = -29 2027-) [facility]ere[facility] or plasma anion yau7530-27-67 05:25:00 Test Item Value Reference Range Interpretation Comments Anion Gap (test code = 69376-0) 9.3 8-16 [facility] or plasma urea nitrogen measurement (mass/volume)2020-09-28 05:25:00 Test Item Value Reference Range Interpretation Comments Blood Urea Nitrogen (test code = 18 7- 3094-0) [facility] or plasma creatinine measurement (mass/volume)2020-09-28 05:25:00 Test Item Value Reference Range Interpretation Comments Creatinine (test code = 2160-0) 0.83 0.72-1.25 [facility] or plasma urea nitrogen/creatinine mass gtqlp6802-16-94 05:25:00 Test Item Value Reference Range Interpretation Comments BUN/Creatinine Ratio (test code = 22 6- 3097-3) [facility] BrookEstimated glomerular filtration rate (GFR) dpbffbfdbhixr5691-55-17 05:25:00 Test Item Value Reference Range Interpretation Comments Estimat Glomerular > 60 See_Comment [Automat ed message] The Filtration Rate (test system which generated code = 799376326) this resul t transmitted reference range : 60-. The reference r duane was not used to int erpret this result as normal/abnormal . [facility] BrookGlucose ohdrzayzsve8047-20-62 05:25:00 Test Item Value Reference Range Interpretation Comments Glucose Level (test code = UOT2673) 104 74-118 [facility] or plasma calcium measurement (mass/volume)2020-09-28 05:25:00 Test Item Value Reference Range Interpretation Comments Calcium Level (test code = 53051-6) 7.4 8.4-10.2 [facility]ere[facility] or plasma total bilirubin measurement (mass/volume)2020-09-28 05:25:00 Test Item Value Reference Range Interpretation Comments Total Bilirubin (test code = 1975-2) 0.7 0.2-1.2 [facility] BrookFluoroscopic procedure less than one hour ctlyvbel1343-90-77 05:25:00 Test Item Value Reference Range Interpretation Comments Aspartate Amino Transf (AST/SGOT) (test 74 5-34 code = Aspartate Amino Transf (AST/SGOT)) [facility]ererum or plasma alanine aminotransferase measurement (enzymatic activity/volume)2020-09-28 05:25:00 Test Item Value Reference Range Interpretation Comments Alanine Aminotransferase (ALT/SGPT) 107 0-55 (test code = 1742-6) [facility]ere[facility] or plasma protein measurement (mass/volume)2020-09-28 05:25:00 Test Item Value Reference Range Interpretation Comments Total Protein (test code = 2885-2) 4.2 6.5-8.1 [facility]ere[facility] or plasma albumin measurement (mass/volume)2020-09-28 05:25:00 Test Item Value Reference Range Interpretation Comments Albumin (test code = 1751-7) 1.9 3.5-5.0 [facility] BrookPlasma globulin measurement (mass/volume) 2020-09-28 05:25:00 Test Item Value Reference Range Interpretation Comments Globulin (test code = 24047-1) 2.3 2.3-3.5 [facility]ererum or plasma albumin/globulin mass ljtqs5660-79-60 05:25:00 Test Item Value Reference Range Interpretation Comments Albumin/Globulin Ratio (test code = 0.8 0.8-2.0 1759-0) [facility]ererum or plasma alkaline phosphatase measurement (enzymatic activity/volume)2020-09-28 05:25:00 Test Item Value Reference Range Interpretation Comments Alkaline Phosphatase (test code = 100 40-150 6768-6) [facility] BrookTroponin I measurement by highly sensitive enzyme wtjpucwgryo7180-54-10 05:25:00 Test Item Value Reference Range Interpretation Comments Troponin I (test code = 37970-5) 0.109 0-0.300 [facility] BrookCHEST SINGLE (PORTABLE)2020-09-26 [facility]:41:00[facility] 1930 Sex: M [facility] [address] [address] Patient Name: JUSTICE HARDY MR #: [id number] : 1930 Age/Sex: 89/M Req #: [id number] Adm Physician: ZACHARIAH SAINI MD Ordered by: ARASH CASTORENA MD Report #: [id number] Location: MED/SURG Room/Bed: [facility] Procedure: [id number] DX/CHEST SINGLE (PORTABLE) Exam Date: 09/26/20 Exam [...] ARASH CASTORENA MDABDOMEN 2 VIEW 2020-09-26 09:13:00 [facility] : 1930 Sex: [place] [address] Patient Name: JUSTICE HARDY MR #: [id number] : 1930 Age/Sex: 89/M Req #: [id number] Adm Physician: ZACHARIAH SAINI MD Ordered by: JEANNINE SAINI MD Report #: [id number] Location: MED/SURG Room/Bed: [facility] Procedure: [id number] DX/ABDOMEN 2 VIEW Exam Date: 09/26/20 Exam [...] on 09/26/20919 COPY TO: JEANNINE SAINI MDBNP Bld-nc 2020-09-26 05:17:00 Test Item Value Reference Range Interpretation Comments B-Type Natriuretic Peptide (test code = 50.2 0-100 56885-6) [facility] or plasma amylase measurement (enzymatic activity/volume)2020-09-26 05:17:00 Test Item Value Reference Range Interpretation Comments Amylase Level (test code = 1798-8) 98 25-125 [facility] or plasma lipase measurement (enzymatic activity/volume)2020-09-26 05:17:00 Test Item Value Reference Range Interpretation Comments Lipase (test code = 3040-3) 98 8-78 [facility] BrookABDOMEN 2 DGQP6432-33-97 23:59:00 [facility] : 1930 Sex: [place] [address] Patient Name: JUSTICE HARDY MR #: [id number] : 1930 Age/Sex: 89/M Req #: [id number] Adm Physician: ZACHARIAH SAINI MD Ordered by: JEANNINE SAINI MD Report #: [id number] Location: MED/SURG Room/Bed: [facility] Procedure: [id number] DX/ABDOMEN 2 VIEW Exam Date: 09/24/20 Exam [...] levels are seen in the right hemiabdomen. Demotte lucency in the upper abdomen on the upright view projecting over the T12 vertebral body , likely represents pneumoperitoneum IMPRESSION: 1. Overall appearance of postsurgical ileus with diffuse mildly dilated small bowel and distended air distended colon to the level of the rectum. Distal obstruction is not excluded. Recommend radiographic follow-up until resolution. 2. Demotte lucency projecting over the T12 vertebral body may represent pneumoperitoneum as seen on recent chest CT, possibly related to recent surgery. Signed by: Patricia Wheat MD on 09/25/2020 12:48 AM Dictated By: TIESHA WHEAT MD Transcribed By: AYDEN on 09/25/2047 COPY TO: JEANNINE SAINIerum or plasma magnesium measurement (mass/volume)2020-09-23 16:40:00 Test Item Value Reference Range Interpretation Comments Magnesium Level (test code = 62698-0) 1.5 1.3-2.1 [facility] BrookFluoroscopic procedure less than one hour ffjfuikf6753-87-99 08:51:00 Test Item Value Reference Range Interpretation Comments Differential Total Cells Counted (test 100 code = Differential Total Cells Counted) [facility]100 leukocytes 2020-09-22 08:51:00 Test Item Value Reference Range Interpretation Comments Neutrophils % (Manual) (test code = 86 40-74 59960-9) [facility] blood band neutrophils form/100 ssovwffjdc4501-20-09 08:51:00 Test Item Value Reference Range Interpretation Comments Band Neutrophils % (test code = 764-1) 0 [facility] blood lymphocytes/100 leukocytes 2020-09-22 08:51:00 Test Item Value Reference Range Interpretation Comments Lymphocytes % (Manual) (test code = 7 19-48 737-7) [facility] blood monocytes/100 leukocytes 2020-09-22 08:51:00 Test Item Value Reference Range Interpretation Comments Monocytes % (Manual) (test code = 7 3.4-9.0 744-3) [facility] BrookAutomated reticulocyte count as percentage of total mecetqnsqqtx2656-96-75 05:15:00 Test Item Value Reference Range Interpretation Comments Percent Reticulocyte Count (test code = 1.5 0.8-2.2 66091-5) [facility] plasma iron measurement (mass/volume)2020-09-21 05:15:00 Test Item Value Reference Range Interpretation Comments Iron Level (test code = 2498-4) 26 65-175 [facility] or plasma iron binding capacity measurement (mass/volume)2020-09-21 05:15:00 Test Item Value Reference Range Interpretation Comments Total Iron Binding Capacity (test code 193 582-717 = 2500-7) [facility] or plasma iron saturation measurement (mass fraction)2020-09-21 05:15:00 Test Item Value Reference Range Interpretation Comments Percent Iron Saturation (test code = 13 15-50 2502-3) [facility] or plasma transferrin measurement (mass/volume)2020-09-21 05:15:00 Test Item Value Reference Range Interpretation Comments Transferrin (test code = 3034-6) 138 783-364 [facility] cobalamin (vitamin B12) measurement (mass/volume)2020-09-21 05:15:00 Test Item Value Reference Range Interpretation Comments Vitamin B12 Level (test code = 89483-9) 591 211-585 [facility] or plasma folate measurement (mass/volume)2020-09-21 05:15:00 Test Item Value Reference Range Interpretation Comments Folate (test code = 2284-8) 17.8 >3.0 [facility] BrookCT CHEST Z8396-86-58 21:42:00 [facility] 1930 Sex: [place] [address] Patient Name: JUSTICE HARDY MR #: [id number] : 1930 Age/Sex: 89/M Req #: [id number] Adm Physician: ZACHARIAH SAINI MD Ordered by: AJ FLYNN DO Report #: [id number] Location: MED/SURG Room/Bed: [facility] Procedure: [id number] CT/CT CHEST W Exam Date: 09/20/20 Exam Time: 2114 REPORT STATUS: Signed EXAM: CT Chest WITH contrast 09/20/2020 9:15 PM INDICATION: PE [id number] 2114 COMPARISON: None TECHNIQUE: Chest was scanned [...] 09/20/202199 COPY TO: AJ FLYNN DO Phosphorus szxlfddsutg1842-12-05 03:45:00 Test Item Value Reference Range Interpretation Comments Phosphorus Level (test code = PZX3017) 0.8 2.3-4.7 [facility] Brook[facility]ST SINGLE (PORTABLE)2020-09-17 15:26:00[facility] : 1930 Sex: [place] [address] Patient Name: JUSTICE HARDY MR #: [id number] : 1930 Age/Sex: 89/M Req #: [id number] Adm Physician: ZACHARIAH SAINI MD Ordered by: ZACHARIAH SAINI MD Report #: [id number] Location: ICU Room/Bed: [place] [address] Procedure: [id number] DX/CHEST SINGLE (PORTABLE) Exam Date: 09/17/20 Exam Time: 1450 REPORT STATUS: Signed EXAMINATION: CHEST SINGLE (PORTABLE) INDICATION: SOB, tachypnea [id number] COMPARISON: Prior x-rays including most recent on [...] (PT) in platelet poor plasma by coagulation fdgek4779-77-67 10:55:00 Test Item Value Reference Range Interpretation Comments Prothrombin Time (test code = 5902-2) 16.5 11.9-14.5 [facility] Brook[facility]R in Platelet poor plasma by Coagulation orwcr9663-80-07 10:55:00 Test Item Value Reference Range Interpretation Comments Prothromb Time International Ratio 1.25 (test code = 6301-6) [facility] BrookCHES XRAY LINE [id number] 20:57:00[facility] : 1930 Sex: M [facility] [address] [place] [address] Patient Name: JUSTICE HARDY MR #: [id number] : 1930 Age/Sex: 89/M Req #: [id number] [facility] Physician: ZACHARIAH SAINI MD Ordered by: ZACHARIAH SAINI MD Report #: [id number] Location: ICU Room/Bed: [place] [address] Procedure: [id number] DX/CHEST XRAY LINE PLACEMENT Exam Date: 09/16/20 [...] likely within gastric lumen[facility] Infrahilar haziness, atelectasis or pneumonia/aspiration. Signed by: Eugenio Ye DO on 09/16/2020 9:02 PM Dictated By: EUGENIO YE DO 01 Transcribed By: AYDEN on 09/16/202101 COPY TO: ZACHARIAH SAINI [facility] SINGLE (PORTABLE)2020-09-15 14:55:00 [facility] : 1930 Sex: M [place] [address] Patient Name: JUSTICE HARDY MR #: [id number] : 1930 Age/Sex: 89/M Req #: [id number] Adm Physician: ZACHARIAH SAINI MD Ordered by: DHARMESH LINARES MD Report #: [id number] Lo cation: MED/SURG Room/Bed: [facility] Procedure: [id number] DX/CHEST SINGLE (PORTABLE) Exam Date: 09/15/20 Exam [...] AYDEN on 09/15/201456 COPY TO: DHARMESH [facility]ES [facility] W/PA CXR 2020-09-15 10:17:00 [facility] JUST[facility] : 1930 Sex: M [facility] [address] [place] [address] Patient Name: JUSTICE HARDY MR #: [id number] : 1930 Age/Sex: 89/M Req #: [id number] Adm Physician: ZACHARIAH SAINI MD Ordered by: DHARMESH LINARES MD Report #: [id number] Lo cation: MED/SURG Room/Bed: [facility] Procedure: [id number] DX/ABDOMEN ACUTE SERIES W/PA CXR Exam Date: [...] TO: DHARMESH LINARES MDABDOMEN ACUTE SERIES W/PA [id number] 10:50:00 [facility] : 1930 Sex: M [facility] [address] [place] [address] Patient Name: JUSTICE HARDY MR #: [id number] : 1930 Age/Sex: 89/M Req #: [id number] [facility] Physician: ZACHARIAH SAINI MD Ordered by: DHARMESH LINARES MD Report #: [id number] Lo cation: MED/SURG Room/Bed: [facility] Procedure: [id number] DX/ABDOMEN ACUTE SERIES W/PA CXR Exam Date: 09/14/20 Exam Time: 1020 REPORT STATUS: Signed X-ray abdomen acute series with 2 views of the abdomen and a single view of the chest INDICATION: sbo [id number] Comparison: X-ray dated 09/14/2019. Discussion: Lungs [...] 10:52 AM Dictated By: OSMIN CASTLE MD 105 Transcribed By: AYDEN on 09/14/20 105 COPY TO: DHARMESH LINARES MDSerum or plasma creatine kinase measurement (enzymatic activity/volume)2020-09-13 11:24:00 Test Item Value Reference Range Interpretation Comments Creatine Kinase (test code = 2157-6) 385 30-200 [facility] or plasma creatine kinase MB measurement (mass/volume)2020-09-13 11:24:00 Test Item Value Reference Range Interpretation Comments Creatine Kinase MB (test code = 2.90 0-5.0 88337-1) [facility] [id number] 09:26:00 [facility] 1930 Sex: M [facility] [address] [place] [address] Patient Name: JUSTICE HARDY MR #: [id number] : 1930 Age/Sex: 89/M Req #: [id number] Adm Physician: ZACHARIAH SAINI MD Ordered by: SHANNAN CERVANTES MD Report #: [id number] Location: MED/SURG Room/Bed: [facility] Procedure: [id number] DX/ABDOMEN 2 VIEW Exam Date: 09/13/20 Exam [...] code = Lactic 0.7 0.5-2.0 Acid Level) [facility] BrookFluoroscopic procedure less than one hour [id number] 19:02:00 Test Item Value Reference Range Interpretation Comments Coronavirus (PCR) (test code = NOT DETECTED NOTDETECTED Coronavirus (PCR)) [facility]CT A[facility]/PEL WO [id number] 17:30:00[facility] : 1930 Sex: M [facility] [address] [place] [address] Patient Name: JUSTICE HARDY MR #: [id number] : 1930 Age/Sex: 89/M Req #: [id number] Adm Physician: Ordered by: SHANNAN CERVANTES MD Report #: [id number] Location: [facility] Room/Bed: Procedure: [id number] HOPD/CT ABD/PEL WO CONTRAST-HOPD Exam Date: 09/12/20 Exam Time: 1657 REPORT STATUS: Signed EXAM: CT Abdomen and Pelvis WITHOUT contrast INDICATION: abd pain, nausea, retching [id number] COMPARISON: CT abdomen and pelvis on [...] 09/12/201744 COPY TO: SHANNAN CERVANTES MDCT ABDOMEN/PELVIS [id number] 15:20:00 [facility] [address] [place] [address] Patient Name: JUSTICE HARDY MR #: [id number] : 1930 Age/Sex: 89/M Req #: [id number] Adm Physician: Or dered by: JEANNINE SAINI MD Report #: [id number] Location: CT Room/Bed: Procedure: [id number] CT/CT ABDOMEN/PELVISWO Exam Date: 03/02/20 Exam Time: [...]
[2021-08-28 16:56] LABS: Urine Blood Negative (Negative); Urine Glucose Negative (Negative); Urine Protein Negative (Negative); Urine Specific Gravity 1.015 (1.005-1.030)
[2021-08-28 17:01] LABS: Absolute Lymphocytes (CBC) 1.2 K/uL (0.7-4.9); Hematocrit 31.6 % (39.6-49.0); Lymphocytes % 19.5 % (15.3-44.8); MPV 8.2 fL (7.6-11.3); RBC Red Blood Cell Count 3.86 M/uL (4.33-5.43)
[2021-08-28 17:02] LABS: Protime INR 1.21
[2021-08-28 17:10] LABS: Albumin 3.5 g/dL (3.4-5.0); BUN Blood Urea Nitrogen 16 mg/dL (7-18); Bicarbonate 25 mmol/L (21-32); Glucose Level 111 mg/dL (74-106); Magnesium 2.1 mg/dL (1.8-2.4); Potassium 3.8 mmol/L (3.5-5.1); Sodium Level 135 mmol/L (136-145)
[2021-08-28 17:18] LABS: ALT/SGPT 22 U/L (12-78); Alkaline Phosphatase 71 U/L (45-117); Bilirubin Total 0.3 mg/dL (0.2-1.0); NT PRO-BNP 2380 pg/mL (<450); Protein, Total 7.3 g/dL (6.4-8.2)
--- NOTE | 2021-08-28 17:18 | EDPHYS ---
Physician Documentation [facility] Name: Benito Castaneda Age: 89 yrs Sex: Male : 1930 Arrival Date: 08/28/2021 Time: 16:39 Bed 28 Private MD: ED Physician Don Bhakta HPI: 08/28 17:15 This 89 yrs old Male presents to ER via EMS with complaints of Increase ma2 aggression. 17:15 Associated signs and symptoms: Pertinent negatives: abdominal pain, ataxia, blurred ma2 vision, chest pain, combativeness, confusion, diarrhea, lightheadedness. 89-year-old male sent from retirement for being increasingly agitated, aggressive, patient states that he may have UTI, this is happened before. At this time patient is back to baseline, he is ANO x4 patient is cooperative and pleasant. 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 - Social history:: Smoking status: Patient/guardian denies using tobacco, but has a distant history of tobacco abuse, Patient/guardian denies using alcohol, street drugs, The patient lives with family. - Family history:: not pertinent. ROS: 17:15 Constitutional: Negative for fever, chills, and weight loss. ma2 17:15 All other systems are negative. Exam: 17:15 Constitutional: This is a well developed, well nourished patient who is awake, alert, ma2 and in no acute distress. Head/Face: Normocephalic, atraumatic. Eyes: Pupils equal round and reactive to light, extra-ocular motions intact. Lids and lashes normal. Conjunctiva and sclera are non-icteric and not injected. Cornea within normal limits. Periorbital areas with no swelling, redness, or edema. ENT: Nares patent. No nasal discharge, no septal abnormalities noted. Tympanic membranes are normal and external auditory canals are clear. Oropharynx with no redness, swelling, or masses, exudates, or evidence of obstruction, uvula midline. Mucous membranes moist. Neck: Trachea midline, no thyromegaly or masses palpated, and no cervical lymphadenopathy. Supple, full range of motion without nuchal rigidity, or vertebral point tenderness. No Meningismus. Chest/axilla: Normal chest wall appearance and motion. Nontender with no deformity. No lesions are appreciated. Cardiovascular: Regular rate and rhythm with a normal S1 and S2. No gallops, murmurs, or rubs. Normal PMI, no JVD. No pulse deficits. Respiratory: Lungs have equal breath sounds bilaterally, clear to auscultation and percussion. No rales, rhonchi or wheezes noted. No increased work of breathing, no retractions or nasal flaring. Abdomen/GI: Soft, non-tender, with normal bowel sounds. No distension or tympany. No guarding or rebound. No evidence of tenderness throughout. Skin: Warm, dry with normal turgor. Normal color with no rashes, no lesions, and no evidence of cellulitis. MS/ Extremity: Pulses equal, no cyanosis. Neurovascular intact. Full, normal range of motion. Neuro: Awake and alert, GCS 15, oriented to person, place, time, and situation. Cranial nerves II-XII grossly intact. Motor strength 5/5 in all extremities. Sensory grossly intact. Cerebellar exam normal. Normal gait. Psych: Awake, alert, with orientation to person, place and time. Behavior, mood, and affect are within normal limits. Vital Signs: 16:39 BP 148 / 51; Pulse 83; Resp 18; Temp 97.1; Pulse Ox 96% ; Weight 62.6 kg; Height 5 ft. ss7 5 in. (165.10 cm); Pain 0/10; 18:33 BP 156 / 71; Pulse 85; Resp 20; Pulse Ox 97% on R/A; lr4 16:39 Body Mass Index 22.96 (62.60 kg, 165.10 cm) ss7 MDM: 16:41 Patient medically screened. ma2 17:16 Differential Diagnosis: electrolyte abnormality, alcohol intoxication, hypoglycemia, ma2 volume depletion. Data reviewed: vital signs, nurses notes. 17:17 Counseling: I had a detailed discussion with the patient and/or guardian regarding: the ma2 historical points, exam findings, and any diagnostic results supporting the discharge/admit diagnosis, the presence of at least one elevated blood pressure reading (>120/80) during this emergency department visit, the need for outpatient follow up. Response to treatment: the patient's symptoms have markedly improved after treatment. 08/28 16:42 Order name: Basic Metabolic Panel; Complete Time: 17:50 ma08/28 16:42 Order name: CBC with Diff; Complete Time: 17:16 ma08/28 16:42 Order name: LFT's; Complete Time: 17:50 ma08/28 16:42 Order name: Magnesium; Complete Time: 17:50 08/28 16:42 Order name: NT PRO-BNP; Complete Time: 17:50 md08/28 16:42 Order name: PT-INR; Complete Time: 17:16 08/28 16:42 Order name: Troponin HS; Complete Time: 17:50 md2 08/28 16:42 Order name: XRAY Chest (1 view); Complete Time: 18:01 md2 08/28 16:42 Order name: EKG; Complete Time: 16:42 ma2 08/28 16:42 Order name: Cardiac monitoring; Complete Time: 16:46 ma08/28 16:42 Order name: EKG - Nurse/Tech; Complete Time: 16:46 ma2 08/28 16:42 Order name: IV Saline Lock; Complete Time: 16:46 ma2 08/28 16:42 Order name: CT Head Brain wo Cont; Complete Time: 17:50 ma2 08/28 16:56 Order name: Urine Dipstick-Ancillary; Complete Time: 17:16 EDND 08/28 16:42 Order name: Labs collected and sent; Complete Time: 16:46 ma2 08/28 16:42 Order name: O2 Per Protocol; Complete Time: 16:46 ma2 08/28 16:42 Order name: O2 Sat Monitoring; Complete Time: 16:46 ma2 08/28 16:42 Order name: Urine Dipstick-Ancillary (obtain specimen); Complete Time: 17:09 ma2 Administered Medications: No medications were administered Disposition Summary: 08/28/21 17:17 Discharge Ordered Location: Home ma2 Condition: Stable ma2 Diagnosis - Restlessness and agitation - Resolved ma2 Followup: ma2 - With: Private Physician - When: Tomorrow - Reason: If symptoms return Discharge Instructions: - Discharge Summary Sheet ma2 Forms: - Medication Reconciliation Form ma2 - Thank You Letter ma2 - Antibiotic Education ma2 - Prescription Opioid Use ma2 Prescriptions: - Nystatin-Triamcinolone 100,000-0.1 unit/g-% Topical Cream - apply 1 application by TOPICAL route 2 times per day; 1 tube; Refills: 0, ma2 Product Selection Permitted Signatures: Dispatcher [employer] EDDon Wu MD MD ma2 Ayesha Rubi RN RN ss7
--- NOTE | 2021-08-28 17:18 | ER ---
Nurse's Notes [facility] Name: Benito Castaneda Age: 89 yrs Sex: Male : 1930 Arrival Date: 08/28/2021 Time: 16:39 Bed 28 Private MD: Diagnosis: Restlessness and agitation-Resolved Presentation: 08/28 16:39 Chief complaint: EMS states: Pt with c/o urinary frequency with a suspicion of uti. ss7 States he has AMS. Coronavirus screen: Vaccine status:. Ebola Screen: No symptoms or risks identified at this time. Initial Sepsis Screen: Does the patient meet any 2 criteria? No. Patient's initial sepsis screen is negative. Does the patient have a suspected source of infection? No. Patient's initial sepsis screen is negative. Risk Assessment: Do you want to hurt yourself or someone else? Patient reports no desire to harm self or others. Onset of symptoms was August 27, 2021. 16:39 Method Of Arrival: EMS [facility] 16:39 Acuity: ANT 3 ss7 Triage Assessment: 16:42 General: Appears in no apparent distress. comfortable, Behavior is calm, cooperative, ss7 appropriate for age. Cardiovascular: No deficits noted. Heart tones S1 S2. Respiratory: Breath sounds are clear bilaterally. GI: No deficits noted. Bowel sounds present X 4 quads. : Reports urinary frequency. Derm: No deficits noted. Musculoskeletal: No deficits noted. Injury Description:. 16:46 Pain: Denies pain. 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 - Social history:: Smoking status: Patient/guardian denies using tobacco, but has a distant history of tobacco abuse, Patient/guardian denies using alcohol, street drugs, The patient lives with family. - Family history:: not pertinent. Screenin:45 Abuse screen: Denies threats or abuse. Nutritional screening: No deficits noted. ss7 Tuberculosis screening: No symptoms or risk factors identified. Fall Risk IV access (20 points). Assessment: 18:33 Reassessment: Pt awaiting ride, and awaiting RX from provider. lr4 Vital Signs: 16:39 BP 148 / 51; Pulse 83; Resp 18; Temp 97.1; Pulse Ox 96% ; Weight 62.6 kg; Height 5 ft. ss7 5 in. (165.10 cm); Pain 0/10; 18:33 BP 156 / 71; Pulse 85; Resp 20; Pulse Ox 97% on R/A; lr4 16:39 Body Mass Index 22.96 (62.60 kg, 165.10 cm) ss7 ED Course: 16:39 Patient arrived in ED. ss7 16:41 Don Bhakta MD is Attending Physician. ma2 16:42 Triage completed. ss7 16:42 Arm band placed on left wrist. EKG completed in triage. Results shown to MD. ss7 16:45 Patient has correct armband on for positive identification. Bed in low position. Call ss7 light in reach. Side rails up X2. vehicle monitor technician on. Pulse ox on. NIBP on. 16:45 No provider procedures requiring assistance completed. Inserted saline lock: 20 gauge ss7 in right antecubital area, using aseptic technique. 16:46 Basic Metabolic Panel Sent. ss7 16:46 CBC with Diff Sent. ss7 16:46 LFT's Sent. ss7 16:46 Magnesium Sent. ss7 16:46 NT PRO-BNP Sent. ss7 16:46 PT-INR Sent. ss7 16:46 Troponin HS Sent. ss7 17:09 Ayesha Rubi, RN is Primary Nurse. ss7 17:09 Basic Metabolic Panel Sent. ss7 17:09 LFT's Sent. ss7 17:09 Magnesium Sent. ss7 17:09 NT PRO-BNP Sent. ss7 17:09 Troponin HS Sent. ss7 17:25 CT Head Brain wo Cont In Process Unspecified. EDMS 17:34 XRAY Chest (1 view) In Process Unspecified. EDMS Administered Medications: No medications were administered Outcome: 17:17 Discharge ordered by . ma2 18:34 Discharged to [facility]. Pt transported home with son. lr4 18:34 Condition: good 19:34 Patient left the ED. ss7 Signatures: Dispatcher [employer] EDMS Don Bhakta MD MD ma2 Ayesha Rubi, RN RN ss7 Judi Saleem, RN RN lr4
[2021-08-28 17:20] LABS: AST/SGOT 19 U/L (15-37); Bilirubin Direct < 0.1 mg/dL (0-0.2)
--- NOTE | 2021-08-28 17:42 | RAD REPORT ---
EXAM DESCRIPTION: CT - Head Brain Wo Cont - 08/28/2021 5:25 pm CLINICAL HISTORY: CONFUSED COMPARISON: Head Brain Wo Cont dated 02/27/2021 TECHNIQUE: Axial 5 mm thick images of the head were obtained without IV contrast. All CT scans are performed using dose optimization technique as appropriate and may include automated exposure control or mA/KV adjustment according to patient size. FINDINGS: No intracranial hemorrhage, mass, edema or shift of mid-line structures. No acute cortical based infarction. Moderate severity atrophy present with ventricles in proportion. Dense, physiologi c basal ganglia calcifications are present along with dense arterial tree calcifications. Chronic isc hemic changes are seen in the cerebral white matter. Mastoid air cells and visualized portions of the paranasal sinuses are clear. No acute bony findings. IMPRESSION: Negative non-contrast CT head examination for acute finding. Atrophy and chronic ischemic changes match 02/27/2021 CT
--- NOTE | 2021-08-28 18:00 | RAD REPORT ---
EXAM DESCRIPTION: RAD - Chest Single View - 08/28/2021 5:33 pm CLINICAL HISTORY: CONGESTION COMPARISON: Portable 06/28/2021 TECHNIQUE: AP portable chest image was obtained 08/28/2021 5:33 pm . FINDINGS: Lung volumes are low. Sternotomy wires are in place. Interstitial pattern is prominent but less pronounced than seen previously. No peripheral mass or consolidation. Heart and vasculature are normal. No significant failure or volume overload overload finding seen. No measurable pleural effusion and no pneumothorax. No acute bony abnormality seen. No acute aortic f indings suspected. IMPRESSION: No acute cardiopulmonary process. Lung parenchymal pattern is similar or less prominent than seen previously. No significant failure or volume overload.
[2021-08-28 19:39] VITALS: TEMP 97.1
[2021-08-28 19:40] VITALS: BP 156/71; O2SAT 97
--- NOTE | 2021-08-29 11:08 | EKG ---
Test Date: 2021-08-28 Test Time: 16:34:19 Refractory Products Supervisor: SKY MEASUREMENT RESULTS: Intervals: Rate: 79 NC: 170 QRSD: 98 QT: 392 QTc: 449 [place]: P: 64 NC: 170 QRS: -36 T: 63 INTERPRETIVE STATEMENTS: Normal sinus rhythm Left axis deviation Abnormal ECG Compared to ECG 08/28/2021 16:33:39 Left-axis deviation now present Atrial premature complex(es) no longer present Right superior axis no longer present Myocardial infarct finding no longer present Electronically Signed On 08-29-21 11:07:17 DISPATCH OFFICER by Reji Ramon
--- NOTE | 2021-08-29 11:08 | EKG ---
Test Date: 2021-08-28 Test Time: 16:33:39 Endorsement Clerk: SS MEASUREMENT RESULTS: Intervals: Rate: 81 LA: 166 QRSD: 40 QT: 344 QTc: 399 [place]: P: 90 LA: 166 QRS: -90 T: -90 INTERPRETIVE STATEMENTS: Poor data quality, interpretation may be adversely affected Suspect arm lead reversal, interpretation assumes no reversal Sinus rhythm with premature atrial complexes Right superior axis deviation Pulmonary disease pattern Possible Right ventricular hypertrophy Inferior infarct, age undetermined Abnormal ECG Compared to ECG 06/28/2021 13:54:16 Atrial premature complex(es) now present Right superior axis now present Right-axis deviation no longer present Myocardial infarct finding still present Electronically Signed On 08-29-21 11:07:35 KETTLE SKIMMER by Reji Ramon
== END 2021-08-28 19:34 | disposition home or self-care (01) ==
LOC: ER 16:17
DX: R45.1 Restlessness and agitation (principal); I10 Essential (primary) hypertension; I25.2 Old myocardial infarction; Z95.818 Presence of other cardiac implants and grafts; Z95.4 Presence of other heart-valve replacement; Z95.1 Presence of aortocoronary bypass graft; Z86.73 Personal history of transient ischemic attack (TIA), and cerebral infarction without residual deficits; Z79.01 Long term (current) use of anticoagulants; Z88.8 Allergy status to other drugs, medicaments and biological substances; Z91.048 Other nonmedicinal substance allergy status
CPT/HCPCS: 36415; 70450; 71045; 80048; 80076; 81003; 83735; 83880; 84484; 85025; 85610; 93005; 99284

== ENCOUNTER 2021-09-30 13:58 | Inpatient (IN) | payer OTHER, BC ==
[2021-09-30 14:30] LABS: Hematocrit 27.7 % (39.6-49.0); Lymphocytes % 16.6 % (15.3-44.8); MPV 7.8 fL (7.6-11.3); RBC Red Blood Cell Count 3.31 M/uL (4.33-5.43)
[2021-09-30 14:35] LABS: Protime INR 1.26
[2021-09-30 14:39] LABS: Potassium 4.5 mmol/L (3.5-5.1)
--- OUTSIDE RECORDS SUMMARY | 2021-09-30 15:00 | XMS REPORT | Continuity of Care Document ---
:[address] [facility] t Address [address] [place] [address] Care Team Providers Name Role Phone Bebeto GARCIA, Jaclyn Primary Care Physician Justice Guzman Attending Clinician Unavailable Hugo GARCIA, Trav Fernandez. Attending Clinician [phone] Fifi GARCIA, O. Attending Clinician Renee GARCIA Attending Clinician 2030_Biopsy Attending Clinician Unavailable Rebecca Lopez MA Attending Clinician Unavailable Bebeto GARCIA Attending Clinician Fawad GARCIA Attending Clinician Dusty Fowler MD Attending Clinician Ivory DAHL Attending Clinician Unavailable Pob, Lab Main Attending Clinician Unavailable Anthony GARCIA, S Attending Clinician Sherrill CRUZ Attending Clinician Unavailable Doctor Unassigned, Name Attending Clinician Unavailable Swanson Attending Clinician Amalia TATAMay Attending Clinician Ivory Whaley Attending Clinician Ivory CARDONA Attending Clinician Unavailable Олег Parkinson MD Attending Clinician SAINI Attending Clinician Unavailable SAINI Attending Clinician Unavailable Macho, Nani Admitting Clinician Unavailable Physician, Primary or Family Admitting Clinician Unavailvalerio e FIFI Admitting Clinician Unavailable 2030_Biopsy Admitting Clinician Unavailable SAINI Admitting Clinician Unavailable Payers Payer Name Policy Type Policy Effective Date Expiration Date Sour ce Number BCBS FED SELECT [id number] 2015 00:00:00 MEDICARE PART A [id number] 1996 \T\ B 00:00:00 [employer] [id number] 2015 [facility] 00:00:00 - Patients [facility] Medicare A & B [id number] 1996 [facility] 00:00:00 - Patients Medical Center Problems Condition [...] disease 00:00: Hospita involving involving 00 l [place] coronary coronary artery artery SOB SOB Disease Active [facility] (shortness (shortness 8-24 st of breath) of breath) 00:00: Ho spita 00 l Generalize Generalize Disease Active 2021-0 M ethodi d weakness d weakness 12-04 st 00:00: Hospita 00 l Confusion Confusion Disease Active Met hodi 11-30 st 00:00: Hospita 00 l Nonrheumat Nonrheumat Disease Active Overview : 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 Added automatic ally from request for surgery [id number] Small Problem Active [facility] St. bowel [facility] - obstructio Patien t [facility] Nausea Problem Active [facility] St. [facility] Hypomagnes Problem Active [facility] S t. emia [facility] Leukocytos Problem Active [facility] S t. is [facility] Hypertensi Problem [facility] History of Problem Active [facility] arter[facility]cl [facility] Abdominal Problem Active [facility] St pain [facility] No known No known Disease Unive rs active active ity of problems problems [facility] Allergies, Adverse Reactions, Alerts Allergy Allergy Status Severity Reaction(s) Onset Inactive Treating Comm ents Source Name Type Date Date Clinician atorvast DA Active U [facility]KNOWN [facility] atin 09-05 Clear 00:00: Mir 00 [facility] iodine DA Active U [facility]KNOWN [facility] 09-05 Clear 00:00: Mir 00 [facility] diphenhy DA Active U [facility]KNOWN [facility] dramine 09-05 Clear 00:00: Mir 00 [facility] Diphenhy Propensi Active Itching Pt states Me [...] Atorvast Propensi Active Other (See Unknown M [facility] attn ty to Comments) 11-30 reaction, st adverse 00:00: patient Hospita reaction 00 daughter l s to confirmed drug allergy with patients cardiolog ist. Iodine Allergy Active [facility] 00:[facility]: Patient e 00 [facility] Doxazosi Allergy Active 2018-[address] [facility] [facility] CARDURA DA Active U FAINTING; 2001- [facility] LOW B/P 6- Clear 00:00: Mir 00 [facility] No Known DA Active U 2001- [facility] Contrast 12-09 Clear Allergie 00:00: Mir s [facility] No Known DA Active U 2001-0 [facility] Food - Clear Allergie 00:00: Mir s 00 [facility] No Known DA Active U 2001-0 [facility] Other 6 Clear Allergie 00:00: Mir s [facility] NO KNOWN Drug Active Univers ALLERGIE Class ity of S [facility] doxazosi DA Active [facility] iodine DA Active [facility] Family History Family Member Diagnosis Comments Start Date Stop Date Source Natural brother [facility] Natural father Heart disease [facility] Natural father Hypertension [facility] Natural mother Alzheimer's disease [facility] Natural sister Other [facility] Social History Social Habit Start Date Stop Date Quantity Comments Source Exposure to Not sure [facility] SARS-CoV-2 (event) [facility] History of tobacco Smoker [facility] use Hospital History SDOH [facility] Alcohol Frequency Hospita l History SDOH [facility] Alcohol Std Drinks Hospit al History SDOH [facility] Alcohol intake 2021-01-10 2021-01-10 Current University of 00:00:00 00:00:00 non-drinker of [facility] alcohol (finding) Branch Tobacco use and 2021-01-10 2021-01-10 Never used Universit y of exposure 00:00:00 00:00:00 [facility] Alcohol Comment 2017-12-10 2017-12-10 ocassional [facility] 00:00:00 00:00:00 Hospital Cigarettes smoked 2017-08-07 2017-08-[address] current (pack per 00:00:00 00:00:00 Hospita l day) - Reported Cigarette 2017-08-07 2017-08-07 [facility] pack-years 00:00:00 00:00:00 Hospital Sex Assigned At [birth year] Universit [facility] of 00:00:00 00:00:00 [facility] Smoking Status Start Date Stop Date Source Never smoker [facility] Ex-smoker 2017-08-07 00:00:00 2017-08-07 00:00:00 [facility] Medications Ordered Filled Start Stop Current Ordering Indication Dosage Frequency Signature Comments Components Source Medication Medication Date Date Medication? Clinician (SIG) Name Name ergocalcife 2021- Yes [id number] Q7D Take 1 M ethodi rol 07-[address] (VITAMIN 00:00: 05:59 (50,000 Hospi ta D2) 50,000 00 :00 Units l unit total) by capsule mouth once a week for 30 days. traZODone Yes 50mg Q.5D Take 50 mg Me thodi (DESYREL) 1-[address] 50 MG 12:51: (two) Hospita tablet 03 times a l day. LORAZepam Yes .5mg Q8H Take 0.5 Meth marcella (ATIVAN) 1-[address] 0.5 MG 12:51: mouth Hospita tablet 03 every 8 l (eight) hours as needed for anxiety. ascorbic 2021- Yes 500mg QD Take 1 Metho di acid, 07-[address] vitamin C, 00:00: 05:59 (500 [...] Yes 1{capsu QD Take 1 [facility]i sulfate 07-14 le} capsule by st (ZINCATE) 00:00: 05:59 mouth Hospit a 50 mg zinc 00 :00 daily for l (220 mg) 30 days. capsule apixaban 0 Yes 2.5mg Q.5D Take 2.5 Meth marcella (ELIQUIS) 1-[address] 2.5 mg 12:51: mouth 2 Hospita tablet 23 (two) l times a day. Indication : DVT, pulmonary embolism. finasteride 0 Yes 5mg QD Take 5 mg M [...] y: 1g by mouth as needed traZODone 0 Yes 50mg QD Take 50 mg Me thodi (DESYREL) 1-[address] 50 MG 12:51: nightly. Hospita tablet 23 l aspirin 0 Yes 81mg QD Take 81 mg Meth marcella (ECOTRIN) 1-[address] 81 MG 12:51: daily. Hospita enteric 23 l coated tablet albuterol 2021- Yes 2{puff} Q.25D Inhale 2 [facility] (PROAIR 1-14 02-[address] HFA) 90 00:00: 05:59 every 4 Hospit a mcg/actuati 00 :00 (four) l on inhaler hours while awake for 30 days. famotidine 0 2021- Yes 20mg Q.5D Take 1 Meth marcella (PEPCID) 20 1-14 02-14 tablet (20 s t MG tablet 00:00: 05:59 mg total) Ho spita 00 :00 by mouth 2 l (two) times a day for 30 days. fluticasone 2021- Yes QD Inhale 1 M ethodi furoate-gabriel 07-13 inhalation s t anteroL 00:00: 05:59 s once Hospita (BREO 00 :00 daily for l ELLIPTA) 30 days. 200-25 mcg/dose blister with device powder for inhalation bisacodyL No 10mg QD Insert 1 Met hodi (Dulcolax, 07-[address] bisacodyl,) 00:00: 05:59 y (10 mg H ospita 10 mg 00 :00 total) l suppository into the rectum daily for 30 days. docusate No 100mg Q12H Take 1 Metho di sodium 07-[address] (COLACE) 00:00: 05:59 (100 mg Hospi ta 100 MG 00 :00 total) by l capsule mouth every 12 (twelve) hours for 30 days. polyethylen No 2000mL Take 2,000 Methodi e glycol [...] cough for up to 30 days. hydrocortis 2020-06 No Q.5D Apply Meth marcella one 1 % 0-25 11-[address] cream 00:00: 05:59 2 (two) Hospita 00 :00 times a l day as needed for irritation for up to 30 days. isosorbide 2020-06 No 20mg Q.[id number] Take 1 [facility] dinitrate 0-25 11-25 [id number] tablet (20 st (ISORDIL) 00:00: 05:59 3D [...] mg for 30 per tablet days. simethicone 2020-06 No 80mg Q6H Take 1.2 M ethodi (MYLICON) 0-25 11-25 mL ([address] 40 mg/0.6 00:00: 05:59 total) by Ho spita mL drops 00 :00 mouth l every 6 (six) hours as needed for flatulence for up to 30 days. furosemide 2020- No 20mg Q.5D Take 1 Meth marcella (LASIX) 20 03-09 tablet (20 st mg tablet 00:00: 04:59 mg total) Ho spita 00 :00 by mouth 2 l (two) times a day as needed (edema/swe lling) for up to 3 days. ergocalcife 2020- No [id number] Q7D Take 1 M ethodi rol 02-[address] (VITAMIN 00:00: 04:59 (50,000 Hospi ta D2) 50,000 00 :00 Units l unit total) by capsule mouth once a week for 30 days. ascorbic No 500mg QD Take 1 Metho di acid, 02-[address] vitamin C, 00:00: 04:59 (500 mg Hos peter (VITAMIN C) 00 :00 total) by l 500 MG mouth tablet daily for 30 days. vitamin E No 400U QD Take 1 Metho di [...] daily with breakfast for 7 days. azithromyci 2021-0 2021- No 500mg QD Take 2 Me thodi n 8 09-[address] (Zithromax) 00:00: 04:59 (500 mg Ho spita 250 MG 00 :00 total) by l tablet mouth daily for 4 days. lisinopriL 2020- No 10mg Q.5D Take 10 mg [facility] (PRINIVIL) 8-25 08-[address] 5 mg tablet 14:10: 00:00 (two) Hosp haresh 33 :00 times a l day. psyllium 2020- No 1{scoop QD Take 1 Met hodi seed, with 8-24 08-24 } Scoop by st dextrose, 08:06: 00:00 mouth Hospit a (FIBER 33 :00 nightly as l ORAL) needed. clonIDINE 2020- No .1mg Q.5D Take 0.1 Met hodi (CATAPRES) 8-24 08-[address] 0.1 MG 08:05: 00:00 mouth 2 Hospita tablet 55 :00 (two) l times a day. pantoprazol 2020- No 40mg 40 mg, Uni vers e 7- 07-20 Oral, ONCE ity of (PROTONIX) 08:30: 07:18 [place], [place] tablet 00 :00 dose, Tue Medic al 40 mg 01/16/21 at Branch 0330, ISHA maalox:diph 2020- No 15mL 15 mL, Uni vers enhydrAMINE 01-16 07-20 Oral, ity of :lidocaine2 08:15: 07:12 [place]CE, 1 [place] %viscous 00 :00 dose, Tue Medica l 1:1:1: 01/16/21 at Branch suspension 0315, (COMPOUNDED Routine ) cloNIDine 2020- No .1mg 0.1 mg, Univ ers (CATAPRES) - 07-20 Oral, ity of tablet 0.1 07:15: 06:15 ONCE, 1 [place] mg 00 :00 dose, Tue Medical 01/16/21 at Branch 0215, STAT cloNIDine 2020- No .1mg 0.1 mg, Univ ers (CATAPRES) 01-16 07-20 Oral, ity of tablet 0.1 05:45: 04:45 ONCE, 1 [place] mg 00 :00 dose, [facility] 01/16/21 at Branch 0045, STAT amLODIPine Yes 10mg Take 10 mg U nivers 10 mg 7-02 by mouth ity of tablet 18:08: daily. [address] Branch aspirin 325 0 Yes 325mg [...] 7-02 by mouth ity of 18:08: at [place] [address] bedtime. Medical Branch cloNIDine Yes .1mg Take 0.1 Univ ers 0.1 mg 7-02 mg by ity of tablet 18:08: mouth 3 [place] 23 (three) Medical times Branch daily. apixaban Yes 2.5mg Take 2.5 Univ ers (ELIQUIS) 7-02 mg by ity of 2.5 mg 18:08: mouth 2 [facility] 23 (two) Medical times Branch daily. omeprazole Yes 40mg Take 40 mg U nivers 40 mg 7-02 by mouth ity of capsule 18:08: daily. [address] Branch lisinopriL Yes 5mg Take 5 mg Un alma 5 mg tablet 7-02 by mouth ity of 18:08: daily. [address] Branch finasteride Yes 5mg Take 5 mg U nivers 5 mg tablet 7-02 by mouth ity of 18:08: daily. [address] Branch amLODIPine Yes 10mg Take 10 mg U nivers 10 mg 7-02 by mouth ity of tablet 18:08: daily. [address] Branch aspirin 325 0 Yes 325mg Take 325 U nivers mg tablet 7-02 mg by ity of 18:08: mouth [place] 23 daily. Medical Branch valsartan-h Yes 1{tbl} Take 1 Un alma ydrochlorot 7-02 tablet by ity of hiazide 18:08: mouth [place] 160-12.5 mg 23 daily. Medica l per tablet Branch eszopiclone Yes 3mg Take 3 mg U nivers 3 mg tablet 7-02 by mouth ity of 18:08: at [place] 23 bedtime. Medical Branch cloNIDine Yes .1mg [...] by mouth ity of capsule 18:08: daily. [place] [address] Medical Branch lisinopriL Yes 5mg Take 5 mg Un alma 5 mg tablet 7-02 by mouth ity of 18:08: daily. [place] [address] Medical Branch finasteride Yes 5mg Take 5 mg U nivers 5 mg tablet 7-02 by mouth ity of 18:08: daily. [place] [address] Medical Branch amLODIPine Yes 10mg Take 10 mg U nivers 10 mg 7-02 by mouth ity of tablet 18:08: daily. [place] [address] Medical Branch aspirin 325 Yes 325mg Take [...] 7-02 by mouth ity of 18:08: at [place] 23 bedtime. Medical Branch cloNIDine Yes .1mg [...] by mouth ity of capsule 18:08: daily. [place] [address] Medical Branch lisinopriL Yes 5mg Take 5 mg Un alma 5 mg tablet 7-02 by mouth ity of 18:08: daily. [address] Branch finasteride Yes 5mg Take 5 mg U nivers 5 mg tablet 7-02 by mouth ity of 18:08: daily. [address] Branch amLODIPine Yes 10mg Take 10 mg U nivers 10 mg 7-02 by mouth ity of tablet 18:08: daily. [place] [address] Medical Branch aspirin 325 Yes 325mg Take 325 U nivers mg tablet 7-02 mg by ity of 18:08: mouth [place] 23 daily. Medical Branch valsartan-h Yes 1{tbl} Take 1 Un alma ydrochlorot 7-02 tablet by ity of hiazide 18:08: mouth [place] 160-12.5 mg 23 daily. Medica l per tablet Branch eszopiclone Yes 3mg Take 3 mg U nivers 3 mg tablet 7-02 by mouth ity of 18:08: at [place] [address] bedtime. Medical Branch cloNIDine Yes .1mg Take 0.1 Univ ers 0.1 mg 7-02 mg by ity of tablet 18:08: mouth 3 [place] 23 (three) Medical times Branch daily. apixaban Yes 2.5mg Take 2.5 Univ ers (ELIQUIS) 7-02 mg by ity of 2.5 mg 18:08: mouth 2 [place] tablet 23 (two) Medical times Branch daily. omeprazole Yes 40mg Take 40 mg U nivers 40 mg 7-02 by mouth ity of capsule 18:08: daily. [place] [address] Medical Branch lisinopriL Yes 5mg Take 5 mg Un alma 5 mg tablet 7-02 by mouth ity of 18:08: daily. [place] [address] Medical Branch finasteride Yes 5mg Take 5 mg U nivers 5 mg tablet 7-02 by mouth ity of 18:08: daily. [place] [address] Medical Branch amLODIPine Yes 10mg Take 10 mg U nivers 10 mg 7-02 by mouth ity of tablet 18:08: daily. [place] [address] Medical Branch aspirin 325 Yes 325mg Take [...] 7-02 by mouth ity of 18:08: at [place] [address] bedtime. Medical Branch cloNIDine Yes .1mg Take 0.1 Univ ers 0.1 mg 7-02 mg by ity of tablet 18:08: mouth 3 [place] 23 (three) Medical times Branch daily. apixaban Yes 2.5mg Take 2.5 Univ ers (ELIQUIS) 7-02 mg by ity of 2.5 mg 18:08: mouth 2 [facility] 23 (two) Medical times Branch daily. omeprazole Yes 40mg Take 40 mg U nivers 40 mg 7-02 by mouth ity of capsule 18:08: daily. [address] Branch lisinopriL Yes 5mg Take 5 mg Un alma 5 mg tablet 7-02 by mouth ity of 18:08: daily. [address] Branch finasteride Yes 5mg Take 5 mg U nivers 5 mg tablet 7-02 by mouth ity of 18:08: daily. [place] [address] Medical Branch amLODIPine Yes 10mg Take 10 mg U nivers 10 mg 7-02 by mouth ity of tablet 18:08: daily. [place] [address] Medical Branch aspirin 325 Yes 325mg Take 325 U nivers mg tablet 7-02 mg by ity of 18:08: mouth [place] 23 daily. Medical Branch valsartan-h Yes 1{tbl} Take 1 Un alma ydrochlorot 7-02 tablet by ity of hiazide 18:08: mouth [place] 160-12.5 mg 23 daily. Medica l per tablet Branch eszopiclone Yes 3mg Take 3 mg U nivers 3 mg tablet 7-02 by mouth ity of 18:08: at [place] 23 bedtime. Medical Branch cloNIDine Yes .1mg [...] by mouth ity of capsule 18:08: daily. [place] [address] Medical Branch lisinopriL Yes 5mg Take 5 mg Un alma 5 mg tablet 7-02 by mouth ity of 18:08: daily. [place] [address] Medical Branch finasteride Yes 5mg Take 5 mg U nivers 5 mg tablet 7-02 by mouth ity of 18:08: daily. [place] [address] Medical Branch amLODIPine Yes 10mg Take 10 mg U nivers 10 mg 7-02 by mouth ity of tablet 18:08: daily. [place] [address] Medical Branch aspirin 325 Yes 325mg Take [...] 7-02 by mouth ity of 18:08: at [place] 23 bedtime. Medical Branch cloNIDine Yes .1mg [...] by mouth ity of capsule 18:08: daily. [place] [address] Medical Branch lisinopriL Yes 5mg Take 5 mg Un alma 5 mg tablet 7-02 by mouth ity of 18:08: daily. [address] Branch finasteride Yes 5mg Take 5 mg U nivers 5 mg tablet 7-02 by mouth ity of 18:08: daily. [address] Branch amLODIPine Yes 10mg Take 10 mg U nivers 10 mg 7-02 by mouth ity of tablet 18:08: daily. [place] [address] Medical Branch aspirin 325 Yes 325mg Take 325 U nivers mg tablet 7-02 mg by ity of 18:08: mouth [place] 23 daily. Medical Branch valsartan-h Yes 1{tbl} Take 1 Un alma ydrochlorot 7-02 tablet by ity of hiazide 18:08: mouth [place] 160-12.5 mg 23 daily. Medica l per tablet Branch eszopiclone Yes 3mg Take 3 mg U nivers 3 mg tablet 7-02 by mouth ity of 18:08: at [place] [address] bedtime. Medical Branch cloNIDine Yes .1mg Take 0.1 Univ ers 0.1 mg 7-02 mg by ity of tablet 18:08: mouth 3 [place] 23 (three) Medical times Branch daily. apixaban Yes 2.5mg Take 2.5 Univ ers (ELIQUIS) 7-02 mg by ity of 2.5 mg 18:08: mouth 2 [place] tablet 23 (two) Medical times Branch daily. omeprazole Yes 40mg Take 40 mg U nivers 40 mg 7-02 by mouth ity of capsule 18:08: daily. [place] [address] Medical Branch lisinopriL Yes 5mg Take 5 mg Un alma 5 mg tablet 7-02 by mouth ity of 18:08: daily. [place] 23 Medical Branch finasteride Yes 5mg Take 5 mg U nivers 5 mg tablet 12-29 by mouth ity of 18:08: daily. [address] Dutasteride Yes Take by Un alma -Tamsulosin 12-29 mouth. ity of 0.5-0.4 mg 18:08: [address] Branch Dutasteride Yes Take by Un alma -Tamsulosin 12-29 mouth. ity of 0.5-0.4 mg 18:08: [address] Branch Dutasteride Yes Take by Un alma -Tamsulosin 12-29 mouth. ity of 0.5-0.4 mg 18:08: [address] Branch Dutasteride Yes Take by Un alma -Tamsulosin 12-29 mouth. ity of 0.5-0.4 mg 18:08: [address] Branch Dutasteride Yes Take by Un alma -Tamsulosin 12-29 mouth. ity of 0.5-0.4 mg 18:08: [address] Branch Dutasteride Yes Take by Un alma -Tamsulosin 12-29 mouth. ity of 0.5-0.4 mg 18:08: [address] Branch Dutasteride Yes Take by Un alma -Tamsulosin 12-29 mouth. ity of 0.5-0.4 mg 18:08: [address] Branch Dutasteride Yes Take by Un alma -Tamsulosin 12-29 mouth. ity of 0.5-0.4 mg 18:08: [address] tamsulosin 2020- No .4mg QD Take 0.4 Me thodi (FLOMAX) 12-04 06-[address] 0.4 mg 15:23: 00:00 mouth Hospita capsule 43 :00 daily. l tamsulosin 2020- No .4mg Q.5D Take 1 Meth marcella (FLOMAX) 12-04-[address] 0.4 mg 00:00: 04:59 (0.4 mg Hospita capsule 00 :00 total) by l mouth 2 (two) times a day for 30 days. levoFLOXaci No 500mg QD Take 1 Me thodi n 12-[address] (Levaquin) 00:00: 04:59 (500 mg Hos peter 500 MG 00 :00 total) by l tablet mouth daily [place] 4 [place] [id number] 50mg Q6H Take 50 mg M ethodi [...] QD 5 mg every Methodi (NORVASC) 5 07-07-[address] mg tablet 00:00: 00:00 Hospita 00 :00 l amLODIPine Yes 10mg Take 10 mg U nivers 10 mg 7-19 by mouth ity of tablet 18:24: daily. [place] 36 Medical Branch aspirin 325 Yes 325mg [...] 7-19 by mouth ity of 18:24: at [place] [address] bedtime. Medical Branch amLODIPine Yes 10mg Take 10 mg U nivers 10 mg 7-19 by mouth ity of tablet 18:24: daily. [place] [address] Medical Branch aspirin 325 Yes 325mg Take [...] 7-19 by mouth ity of 18:24: at [place] [address] bedtime. Medical Branch Amlodipine Amlodipine Yes [address] Besylate Besylate [facility] Patient s [facility] Aspirin Aspirin Yes Daily [facility] (Aspir 81) (Aspir 81) Tal es - 81 Mg 81 Mg Patient TABLET.DR SHIPLEY.DR lino [facility] Hydrochloro Hydrochloro Yes 12.[address] thiazide thiazide [facility] - (Hydrochlor (Hydrochlor P atient othiazide*) othiazide*) s 25 Mg 25 Mg Medical TABLET TABLET Center Tamsulosin Tamsulosin Yes .[address] Hcl Hcl [facility] - (Flomax*) (Flomax*) Patie nt 0.4 Mg CAP 0.4 Mg CAP [facility] Immunizations Ordered Immunization Filled Immunization Date Status Commen ts Source Name Name FLUZONE HIGH-DOSE PF 2021-04-23 Completed Meth odist 00:00:00 Hospital Vital Signs Vital Name Observation Time Observation Value Comments Source Systolic blood 2021-01-16 07:00:00 187 mm[Hg] Univer sity of pressure [facility] Diastolic blood 2021-01-16 07:00:00 90 mm[Hg] Unive rsity of pressure [facility] Heart rate 2021-01-16 07:00:00 76 /min Universi [facility] Respiratory rate 2021-01-16 07:00:00 20 /min Univ ers[facility] Oxygen saturation in 2021-01-16 07:00:00 97 /min [facility] Arterial blood by [facility] Pulse oximetry Branch Body temperature 2021-01-16 04:24:00 37.06 Ayana [facility] [place] [facility] Body weight 2021-01-16 04:24:00 58.968 kg [facility] [place] [facility] BMI 2021-01-16 04:24:00 22.31 kg/m2 [facility] [place] [facility] Systolic blood 2021-01-11 02:55:00 175 mm[Hg] Univer sity of pressure [place] [facility] Diastolic blood 2021-01-11 02:55:00 85 mm[Hg] Unive rsity of pressure [place] [facility] Heart rate 2021-01-11 02:55:00 73 /min [facility] [place] [facility] Respiratory rate 2021-01-11 02:55:00 16 /min [facility] [place] [facility] Oxygen saturation in 2021-01-11 02:55:00 96 /min University of Arterial blood by [place] [employer] [facility] Pulse oximetry Branch Body temperature 2021-01-10 23:48:00 37.22 Ayana [facility] [place] [facility] Body weight 2021-01-10 23:48:00 58.968 kg [facility] [place] [facility] BMI 2021-01-10 23:48:00 22.31 kg/m2 [facility] [place] [facility] Systolic blood 2020-12-29 18:08:00 132 mm[Hg] Univer sity of pressure [place] [facility] Diastolic blood 2020-12-29 18:08:00 65 mm[Hg] Unive rsity of pressure [place] [facility] Heart rate 2020-12-29 18:03:00 65 /min [facility] [place] [facility] Body temperature 2020-12-29 18:03:00 36.44 Ayana [facility] [place] [facility] Respiratory rate 2020-12-29 18:03:00 16 /min [facility] [place] [facility] Body height 2020-12-29 18:03:00 162.6 cm [facility] [place] [facility] Body weight 2020-12-29 18:03:00 59.013 kg [facility] [place] [facility] BMI 2020-12-29 18:03:00 22.33 kg/m2 [facility] [place] [facility] Oxygen saturation in 2020-12-29 18:03:00 98 /min University of Arterial blood by [facility] Pulse oximetry Branch Systolic blood 2020-12-29 18:08:00 132 mm[Hg] Univer sity of pressure [facility] Diastolic blood 2020-12-29 18:08:00 65 mm[Hg] Unive rsity of pressure [facility] Heart rate 2020-12-29 18:03:00 65 /min Universi ty [facility] Body temperature 2020-12-29 18:03:00 36.44 Ayana [facility] ersFormerly [facility] Respiratory rate 2020-12-29 18:03:00 16 /min [facility] ers[facility]ly [facility] Body height 2020-12-29 18:03:00 162.6 cm Universi ty [facility] Body weight 2020-12-29 18:03:00 59.013 [facility] 2020-12-29 18:03:00 22.33 kg/m2 [facility] Oxygen saturation in 2020-12-29 18:03:00 98 /min [facility] Arterial blood by [facility] Pulse oximetry [place] Oxygen saturation in 2021-07-13 18:02:00 94 /min [facility] Arterial blood by Pulse oximetry Heart rate 2021-07-13 17:59:00 74 /min [facility] Respiratory rate 2021-07-13 17:59:00 14 /min [facility] Systolic blood 2021-07-13 17:02:14 121 mm[Hg] [facility] pressure Diastolic blood 2021-07-13 17:02:14 63 mm[Hg] [facility] pressure Body temperature 2021-07-13 17:02:14 36.11 [facility] Body height 2021-07-08 22:41:00 162.6 cm [facility] Body weight 2021-07-08 22:41:00 58.968 kg [facility] BMI 2021-07-08 22:41:00 22.31 kg/m2 [facility] BP Diastolic 2020-09-28 12:46:00 76 mm[Hg] [facility] BP Systolic 2020-09-28 12:46:00 149 mm[Hg] [facility] Oxygen saturation by 2020-09-28 12:46:00 99 /min [facility] - Pulse oximetry Patients [facility] Heart Rate 2020-09-28 12:46:00 85 /min [...] Center Body Temperature 2020-09-28 08:42:00 97.4 [degF] [facility] BP Diastolic 2020-09-28 08:42:00 60 mm[Hg] [facility] BP Systolic 2020-09-28 08:42:00 141 mm[Hg] [facility] Oxygen saturation by 2020-09-28 08:42:00 96 /min [facility] - Pulse oximetry Patients [facility] BP Diastolic 2020-09-28 08:36:00 60 mm[Hg] [facility] BP Systolic 2020-09-28 08:36:00 141 mm[Hg] [facility] Oxygen saturation by 2020-09-28 08:36:00 96 /min [facility] - Pulse oximetry Patients [facility] Heart Rate 2020-09-28 08:36:00 81 /min [facility] Respiratory rate 2020-09-28 08:36:00 24 /min [facility] Body Temperature 2020-09-28 08:36:00 97.4 [degF] [facility] Oxygen saturation by 2020-09-28 08:17:00 96 /min [facility] - Pulse oximetry Patients [facility] Heart Rate 2020-09-28 08:17:00 80 /min [facility] Respiratory rate 2020-09-28 08:17:00 20 /min [facility] Oxygen saturation by 2020-09-28 07:49:00 96 /min [facility] - Pulse oximetry Patients [facility] Heart Rate 2020-09-28 07:49:00 80 /min [facility] Respiratory rate 2020-09-28 07:49:00 20 /min [facility] BP Diastolic 2020-09-28 04:00:00 41 mm[Hg] [facility] BP Systolic 2020-09-28 04:00:00 107 mm[Hg] [facility] Oxygen saturation by 2020-09-28 04:00:00 96 /min [facility] - Pulse oximetry Patients [facility] Heart Rate 2020-09-28 04:00:00 85 /min [facility] Respiratory rate 2020-09-28 04:00:00 20 /min [facility] Body Temperature 2020-09-28 04:00:00 97.7 [degF] [facility] Oxygen saturation by 2020-09-28 02:48:00 98 /min [facility] - Pulse oximetry Patients [facility] Heart Rate 2020-09-28 02:48:00 85 /min [facility] Respiratory rate 2020-09-28 02:48:00 18 /min [facility] Oxygen saturation by 2020-09-28 02:40:00 95 /min [facility] - Pulse oximetry Patients [facility] Heart Rate 2020-09-28 02:40:00 87 /min [facility] Respiratory rate 2020-09-28 02:40:00 20 /min [facility] BP Diastolic 2020-09-28 00:00:00 59 mm[Hg] [facility] BP Systolic 2020-09-28 00:00:00 135 mm[Hg] [facility] Oxygen saturation by 2020-09-28 00:00:00 94 /min [facility] - Pulse oximetry Patients [facility] Heart Rate 2020-09-28 00:00:00 92 /min [...] [facility] Pulse oximetry Patients [facility] Heart Rate 2020-09-27 20:00:00 99 /min [facility] Respiratory rate 2020-09-27 20:00:00 18 /min [facility] Body Temperature 2020-09-27 20:00:00 98.1 [degF] [facility] Oxygen saturation by 2020-09-27 19:53:00 100 /min [facility] - Pulse oximetry Patients [facility] Heart Rate 2020-09-27 19:53:00 96 /min [facility] Respiratory rate 2020-09-27 19:53:00 18 /min [facility] Oxygen saturation by 2020-09-27 19:45:00 97 /min [facility] - Pulse oximetry Patients [facility] Heart Rate 2020-09-27 19:45:00 99 /min [...] [facility] Pulse oximetry Patients [facility] Heart Rate 2020-09-27 15:21:00 103 /min [facility] Respiratory rate 2020-09-27 15:21:00 20 /min [facility] Body Temperature 2020-09-27 15:21:00 98.5 [degF] [facility] Oxygen saturation by 2020-09-27 14:45:00 99 /min [facility] - Pulse oximetry Patients [facility] Heart Rate 2020-09-27 14:45:00 103 /min [facility] Respiratory rate 2020-09-27 14:45:00 20 /min [facility] Oxygen saturation by 2020-09-27 14:30:00 95 /min [facility] - Pulse oximetry Patients [facility] Heart Rate 2020-09-27 14:30:00 103 /min [facility] Respiratory rate 2020-09-27 14:30:00 20 /min [facility] BP Diastolic 2020-09-27 11:13:00 56 mm[Hg] [facility] BP Systolic 2020-09-27 11:13:00 123 mm[Hg] [facility] Oxygen saturation by 2020-09-27 11:13:00 99 /min [facility] - Pulse oximetry Patients [facility] Heart Rate 2020-09-27 11:13:00 88 /min [...] [facility] Pulse oximetry Patients [facility] Heart Rate 2020-09-27 08:15:00 105 /min [...] [facility] Pulse oximetry Patients [facility] Heart Rate 2020-09-27 07:58:00 105 /min [facility] Respiratory rate 2020-09-27 07:58:00 16 /min [facility] Body Temperature 2020-09-27 07:58:00 97.6 [degF] [facility] Oxygen saturation by 2020-09-27 07:15:00 99 /min [facility] - Pulse oximetry Patients [facility] Heart Rate 2020-09-27 07:15:00 105 /min [facility] Respiratory rate 2020-09-27 07:15:00 16 /min [facility] Oxygen saturation by 2020-09-27 07:00:00 95 /min [facility] - Pulse oximetry Patients [facility] Heart Rate 2020-09-27 07:00:00 105 /min [facility] Respiratory rate 2020-09-27 07:00:00 16 /min [facility] Oxygen saturation by 2020-09-27 00:05:00 100 /min [facility] - Pulse oximetry Patients [facility] Heart Rate 2020-09-27 00:05:00 91 /min [facility] Respiratory rate 2020-09-27 00:05:00 20 /min [facility] Oxygen saturation by 2020-09-26 23:50:00 98 /min [facility] - Pulse oximetry Patients [facility] Heart Rate 2020-09-26 23:50:00 89 /min [facility] Respiratory rate 2020-09-26 23:50:00 20 /min [facility] BP Diastolic 2020-09-26 20:36:00 69 mm[Hg] [facility] BP Systolic 2020-09-26 20:36:00 114 mm[Hg] [facility] Oxygen saturation by 2020-09-26 20:36:00 98 /min [facility] - Pulse oximetry Patients [facility] Heart Rate 2020-09-26 20:36:00 84 /min [...] [facility] Pulse oximetry Patients [facility] Heart Rate 2020-09-26 20:00:00 89 /min [...] [facility] Pulse oximetry Patients [facility] Heart Rate 2020-09-26 16:11:00 89 /min [facility] Respiratory rate 2020-09-26 16:11:00 21 /min [facility] Body Temperature 2020-09-26 16:11:00 98.3 [degF] [facility] Oxygen saturation by 2020-09-26 13:10:00 96 /min [facility] - Pulse oximetry Patients [facility] Heart Rate 2020-09-26 13:10:00 94 /min [facility] Respiratory rate 2020-09-26 13:10:00 16 /min [facility] Oxygen saturation by 2020-09-26 12:55:00 96 /min [facility] - Pulse oximetry Patients [facility] Heart Rate 2020-09-26 12:55:00 94 /min [facility] Respiratory rate 2020-09-26 12:55:00 16 /min [facility] Oxygen saturation by 2020-09-26 12:35:00 96 /min [facility] - Pulse oximetry Patients [facility] Heart Rate 2020-09-26 12:35:00 94 /min [...] [facility] Pulse oximetry Patients [facility] Heart Rate 2020-09-26 12:12:00 100 /min [...] [facility] Pulse oximetry Patients [facility] Heart Rate 2020-09-26 09:22:00 99 /min [facility] Respiratory rate 2020-09-26 09:22:00 26 /min [facility] Body Temperature 2020-09-26 09:22:00 97.4 [degF] [facility] Oxygen saturation by 2020-09-26 08:50:00 98 /min [facility] - Pulse oximetry Patients [facility] Heart Rate 2020-09-26 08:50:00 99 /min [facility] Respiratory rate 2020-09-26 08:50:00 26 /min [facility] Oxygen saturation by 2020-09-26 08:35:00 98 /min [facility] - Pulse oximetry Patients [facility] Heart Rate 2020-09-26 08:35:00 99 /min [...] [facility] Pulse oximetry Patients [facility] Heart Rate 2020-09-26 07:58:00 99 /min [...] [facility] Pulse oximetry Patients [facility] Heart Rate 2020-09-26 04:00:00 99 /min [facility] Respiratory rate 2020-09-26 04:00:00 20 /min [facility] Body Temperature 2020-09-26 04:00:00 97.0 [degF] [facility] Oxygen saturation by 2020-09-25 20:08:00 100 /min [facility] - Pulse oximetry Patients [facility] Heart Rate 2020-09-25 20:08:00 97 /min [...] [facility] Pulse oximetry Patients [facility] Heart Rate 2020-09-25 20:00:00 99 /min [facility] Respiratory rate 2020-09-25 20:00:00 18 /min [facility] Body Temperature 2020-09-25 20:00:00 97.9 [degF] [facility] Oxygen saturation by 2020-09-25 19:53:00 97 /min [facility] Pulse oximetry Patients [facility] Heart Rate 2020-09-25 19:53:00 94 /min [...] [facility] Pulse oximetry Patients [facility] Heart Rate 2020-09-25 15:48:00 99 /min [facility] Respiratory rate 2020-09-25 15:48:00 18 /min [facility] Body Temperature 2020-09-25 15:48:00 98.0 [degF] [facility] Oxygen saturation by 2020-09-25 12:40:00 97 /min [facility] - Pulse oximetry Patients [facility] Heart Rate 2020-09-25 12:40:00 109 /min [facility] Respiratory rate 2020-09-25 12:40:00 16 /min [facility] Oxygen saturation by 2020-09-25 12:39:00 97 /min [facility] - Pulse oximetry Patients [facility] Heart Rate 2020-09-25 12:39:00 98 /min [...] [facility] Pulse [facility]ximetry Patients [facility] Heart Rate 2020-09-25 11:14:00 98 /min [facility] Respiratory rate 2020-09-25 11:14:00 22 /min [facility] Body Temperature 2020-09-25 11:14:00 97.8 [degF] [facility] BP Diastolic 2020-09-25 09:18:00 62 mm[Hg] [facility] BP Systolic 2020-09-25 09:18:00 135 mm[Hg] [facility] Oxygen saturation by 2020-09-25 09:18:00 98 /min [facility] - Pulse oximetry Patients [facility] Heart Rate 2020-09-25 09:18:00 96 /min [facility] Respiratory rate 2020-09-25 09:18:00 18 /min [facility] Body Temperature 2020-09-25 09:18:00 97.9 [degF] [facility] Oxygen saturation by 2020-09-25 08:35:00 98 /min [facility] - Pulse oximetry Patients [facility] Heart Rate 2020-09-25 08:35:00 96 /min [facility] Respiratory rate 2020-09-25 08:35:00 18 /min [facility] Oxygen saturation by 2020-09-25 08:20:00 98 /min [facility] - Pulse oximetry Patients [facility] Heart Rate 2020-09-25 08:20:00 96 /min [facility] Respiratory rate 2020-09-25 08:20:00 18 /min [facility] BP Diastolic 2020-09-25 07:33:00 62 mm[Hg] [facility] BP Systolic 2020-09-25 07:33:00 135 mm[Hg] [facility] Oxygen saturation by 2020-09-25 07:33:00 98 /min [facility] - Pulse oximetry Patients [facility] Heart Rate 2020-09-25 07:33:00 96 /min [facility] Respiratory rate 2020-09-25 07:33:00 18 /min [facility] Body Temperature 2020-09-25 07:33:00 97.9 [degF] [facility] BP Diastolic 2020-09-25 04:00:00 69 mm[Hg] [facility] BP Systolic 2020-09-25 04:00:00 121 mm[Hg] [facility] Oxygen saturation by 2020-09-25 04:00:00 97 /min [facility] Pulse oximetry Patients [facility] Heart Rate 2020-09-25 04:00:00 83 /min [facility] Respiratory rate 2020-09-25 04:00:00 18 /min [facility] Body Temperature 2020-09-25 04:00:00 97.7 [degF] [facility] BP Diastolic 2020-09-24 23:59:00 94 mm[Hg] [facility] BP Systolic 2020-09-24 23:59:00 151 mm[Hg] [facility] Oxygen saturation by 2020-09-24 23:59:00 99 /min [facility] - Pulse oximetry Patients [facility] Heart Rate 2020-09-24 23:59:00 97 /min [...] [facility] Pulse oximetry Patients [facility] Heart Rate 2020-09-24 20:32:00 112 /min [facility] Respiratory rate 2020-09-24 20:32:00 18 /min [facility] Body Temperature 2020-09-24 20:32:00 97.7 [degF] [facility] Oxygen saturation by 2020-09-24 20:25:00 98 /min [facility] - Pulse oximetry Patients [facility] Heart Rate 2020-09-24 20:25:00 100 /min [facility] Respiratory rate 2020-09-24 20:25:00 20 /min [facility] Oxygen saturation by 2020-09-24 20:10:00 95 /min [facility] - Pulse oximetry Patients [facility] Heart Rate 2020-09-24 20:10:00 102 /min [...] [facility] Pulse [facility]ximetry Patients [facility] Heart Rate 2020-09-24 20:00:00 112 /min [...] [facility] Pulse [facility]ximetry Patients [facility] Heart Rate 2020-09-24 17:13:00 94 /min [facility] Respiratory rate 2020-09-24 17:13:00 16 /min [facility] Body Temperature 2020-09-24 17:13:00 97.7 [degF] [facility] Oxygen saturation by 2020-09-24 14:00:00 100 /min [facility] - Pulse oximetry Patients [facility] Heart Rate 2020-09-24 14:00:00 94 /min [facility] Respiratory rate 2020-09-24 14:00:00 16 /min [facility] Oxygen saturation by 2020-09-24 13:45:00 100 /min [facility] - Pulse oximetry Patients [facility] Heart Rate 2020-09-24 13:45:00 94 /min [...] [facility] Pulse [facility]ximetry Patients [facility] Heart Rate 2020-09-24 08:41:00 94 /min [...] 142 mm[Hg] [facility] Oxygen saturation by 2020-09-24 08:30:00 95 /min [facility] - Pulse oximetry Patients [facility] Heart Rate 2020-09-24 08:30:00 94 /min [facility] Respiratory rate 2020-09-24 08:30:00 18 /min [facility] Body Temperature 2020-09-24 08:30:00 98.6 [degF] [facility] Oxygen saturation by 2020-09-24 06:50:00 100 /min [facility] - Pulse oximetry Patients [facility] Heart Rate 2020-09-24 06:50:00 91 /min [facility] Respiratory rate 2020-09-24 06:50:00 16 /min [facility] Oxygen saturation by 2020-09-24 06:35:00 97 /min [facility] - Pulse oximetry Patients [facility] Heart Rate 2020-09-24 06:35:00 87 /min [facility] Respiratory rate 2020-09-24 06:35:00 16 /min [facility] Body Temperature 2020-09-24 04:00:00 97.7 [degF] [facility] BP Diastolic 2020-09-24 04:00:00 64 mm[Hg] [facility] BP Systolic 2020-09-24 04:00:00 137 mm[Hg] [facility] Oxygen saturation by 2020-09-24 04:00:00 96 /min [facility] - Pulse oximetry Patients [facility] Heart Rate 2020-09-24 04:00:00 88 /min [facility] Respiratory rate 2020-09-24 04:00:00 18 /min [facility] Oxygen saturation by 2020-09-24 01:18:00 97 /min [facility] - Pulse oximetry Patients [facility] Heart Rate 2020-09-24 01:18:00 91 /min [facility] Respiratory rate 2020-09-24 01:18:00 18 /min [facility] Oxygen saturation by 2020-09-24 01:10:00 94 /min [facility] - Pulse oximetry Patients [facility] Heart Rate 2020-09-24 01:10:00 89 /min [facility] Respiratory rate 2020-09-24 01:10:00 16 /min [facility] BP Diastolic 2020-09-24 00:00:00 60 mm[Hg] [facility] BP Systolic 2020-09-24 00:00:00 154 mm[Hg] [facility] Oxygen saturation by 2020-09-24 00:00:00 94 /min [facility] - Pulse oximetry Patients [facility] Heart Rate 2020-09-24 00:00:00 92 /min [...] [facility] Pulse [facility]ximetry Patients [facility] Heart Rate 2020-09-23 21:42:00 105 /min [...] [facility] Pulse [facility]ximetry Patients [facility] Heart Rate 2020-09-23 20:00:00 105 /min [facility] Respiratory rate 2020-09-23 20:00:00 18 /min [facility] Body Temperature 2020-09-23 20:00:00 97.9 [degF] [facility] Oxygen saturation by 2020-09-23 19:18:00 99 /min [facility] - Pulse oximetry Patients [facility] Heart Rate 2020-09-23 19:18:00 101 /min [facility] Respiratory rate 2020-09-23 19:18:00 22 /min [facility] Oxygen saturation by 2020-09-23 19:10:00 94 /min [facility] - Pulse oximetry Patients [facility] Heart Rate 2020-09-23 19:10:00 98 /min [...] [facility] Pulse [facility]ximetry Patients [facility] Heart Rate 2020-09-23 16:11:00 96 /min [facility] Respiratory rate 2020-09-23 16:11:00 18 /min [facility] Body Temperature 2020-09-23 16:11:00 97.8 [degF] [facility] Oxygen saturation by 2020-09-23 14:15:00 98 /min [facility] Pulse oximetry Patients [facility] Heart Rate 2020-09-23 14:15:00 83 /min [facility] Respiratory rate 2020-09-23 14:15:00 20 /min [facility] Oxygen saturation by 2020-09-23 14:00:00 98 /min [facility] Pulse oximetry Patients [facility] Heart Rate 2020-09-23 14:00:00 83 /min [...] [facility] Pulse [facility]ximetry Patients [facility] Heart Rate 2020-09-23 08:50:00 94 /min [facility] Respiratory rate 2020-09-23 08:50:00 18 /min [facility] Body Temperature 2020-09-23 08:50:00 97.3 [degF] [facility] BP Diastolic 2020-09-23 08:39:00 63 mm[Hg] [facility] BP Systolic 2020-09-23 08:39:00 142 mm[Hg] [facility] Oxygen saturation by 2020-09-23 08:39:00 100 /min [facility] Pulse oximetry Patients [facility] Heart Rate 2020-09-23 08:39:00 94 /min [facility] Respiratory rate 2020-09-23 08:39:00 18 /min [facility] Body Temperature 2020-09-23 08:39:00 97.4 [degF] [facility] Oxygen saturation by 2020-09-23 06:45:00 100 /min [facility] Pulse oximetry Patients [facility] Heart Rate 2020-09-23 06:45:00 94 /min [facility] Respiratory rate 2020-09-23 06:45:00 18 /min [facility] Oxygen saturation by 2020-09-23 06:30:00 100 /min [facility] Pulse oximetry Patients [facility] Heart Rate 2020-09-23 06:30:00 94 /min [facility] Res[facility] rate 2020-09-23 06:30:00 18 /min [facility] BP Diastolic 2020-09-23 04:30:00 75 mm[Hg] [facility] BP Systolic 2020-09-23 04:30:00 168 mm[Hg] [facility] Oxygen saturation by 2020-09-23 04:30:00 98 /min [facility] Pulse oximetry Patients [facility] Heart Rate 2020-09-23 04:30:00 87 /min [facility] Respiratory rate 2020-09-23 04:30:00 18 /min [facility] Body Temperature 2020-09-23 04:30:00 97.6 [degF] [facility] Oxygen saturation by 2020-09-23 00:40:00 94 /min [facility] Pulse oximetry [facility] Heart Rate 2020-09-23 00:40:00 81 /min [...] [facility] Heart Rate 2020-09-23 00:23:00 81 /min [facility] Respiratory rate 2020-09-23 00:23:00 18 /min [facility] Body Temperature 2020-09-23 00:23:00 98.1 [degF] [facility] BP Diastolic 2020-09-22 20:04:00 81 mm[Hg] [facility] BP Systolic 2020-09-22 20:04:00 158 mm[Hg] [facility] Oxygen saturation by 2020-09-22 20:04:00 95 /min [facility] Heart Rate 2020-09-22 20:04:00 95 /min [facility] Respiratory rate 2020-09-22 20:04:00 18 /min [facility] Body Temperature 2020-09-22 20:04:00 97.6 [degF] [facility] Oxygen saturation by 2020-09-22 20:02:00 98 /min [facility] Heart Rate 2020-09-22 20:02:00 94 /min [facility] Respiratory rate 2020-09-22 20:02:00 20 /min [facility] Oxygen saturation by 2020-09-22 19:47:00 96 /min [facility] Heart Rate 2020-09-22 19:47:00 95 /min [facility] Respiratory rate 2020-09-22 19:47:00 20 /min [facility] Oxygen saturation by 2020-09-22 15:48:00 100 /min [facility] Heart Rate 2020-09-22 15:48:00 89 /min [facility] Res[facility] rate 2020-09-22 15:48:00 24 /min [facility] BP Diastolic 2020-09-22 15:40:00 57 mm[Hg] [facility] BP Systolic 2020-09-22 15:40:00 143 mm[Hg] [facility] Oxygen saturation by 2020-09-22 15:40:00 98 /min [facility] Heart Rate 2020-09-22 15:40:00 90 /min [facility] Respiratory rate 2020-09-22 15:40:00 22 /min [facility] Body Temperature 2020-09-22 15:40:00 97.6 [degF] [facility] Oxygen saturation by 2020-09-22 15:33:00 96 /min [facility] Heart Rate 2020-09-22 15:33:00 88 /min [facility] Respiratory rate 2020-09-22 15:33:00 24 /min [facility] BP Diastolic 2020-09-22 11:44:00 65 mm[Hg] [facility] BP Systolic 2020-09-22 11:44:00 165 mm[Hg] [facility] Oxygen saturation by 2020-09-22 11:44:00 100 /min [facility] Heart Rate 2020-09-22 11:44:00 81 /min [facility] Respiratory rate 2020-09-22 11:44:00 23 /min [facility] Body Temperature 2020-09-22 11:44:00 97.9 [degF] [facility] Oxygen saturation by 2020-09-22 11:25:00 100 /min [facility] Heart Rate 2020-09-22 11:25:00 88 /min [facility] Oxygen saturation by 2020-09-22 11:10:00 96 /min [facility] Heart Rate 2020-09-22 11:10:00 84 /min [...] [facility] Heart Rate 2020-09-22 09:27:00 84 /min [...] [facility] Heart Rate 2020-09-22 08:00:00 84 /min [...] [facility] Heart Rate 2020-09-22 03:50:00 93 /min [facility] Respiratory rate 2020-09-22 03:50:00 24 /min [facility] Body Temperature 2020-09-22 03:50:00 97.9 [degF] [facility] Oxygen saturation by 2020-09-22 02:17:00 100 /min [facility] Heart Rate 2020-09-22 02:17:00 92 /min [facility] Respiratory rate 2020-09-22 02:17:00 20 /min [facility] Oxygen saturation by 2020-09-22 02:02:00 100 /min [facility] Heart Rate 2020-09-22 02:02:00 88 /min [facility] Respiratory rate 2020-09-22 02:02:00 20 /min [facility] BP Diastolic 2020-09-22 00:02:00 64 mm[Hg] [facility] BP Systolic 2020-09-22 00:02:00 139 mm[Hg] [facility] Oxygen saturation by 2020-09-22 00:02:00 100 /min [facility] Heart Rate 2020-09-22 00:02:00 72 /min [facility] Respiratory rate 2020-09-22 00:02:00 20 /min [facility] Body Temperature 2020-09-22 00:02:00 98.4 [degF] [facility] BP Diastolic 2020-09-21 20:07:00 72 mm[Hg] [facility] BP Systolic 2020-09-21 20:07:00 147 mm[Hg] [facility] Oxygen saturation by 2020-09-21 20:07:00 96 /min [facility] Heart Rate 2020-09-21 20:07:00 84 /min [facility] Respiratory rate 2020-09-21 20:07:00 24 /min [facility] Body Temperature 2020-09-21 20:07:00 98.6 [degF] [facility] Oxygen saturation by 2020-09-21 20:02:00 97 /min [facility] Heart Rate 2020-09-21 20:02:00 80 /min [facility] Respiratory rate 2020-09-21 20:02:00 18 /min [facility] BP Diastolic 2020-09-21 20:00:00 96 mm[Hg] [facility] BP Systolic 2020-09-21 20:00:00 135 mm[Hg] [facility] Oxygen saturation by 2020-09-21 20:00:00 95 /min [facility] Heart Rate 2020-09-21 20:00:00 78 /min [facility] Respiratory rate 2020-09-21 20:00:00 18 /min [facility] Body Temperature 2020-09-21 20:00:00 98.4 [degF] [facility] BP Diastolic 2020-09-21 16:00:00 96 mm[Hg] [facility] BP Systolic 2020-09-21 16:00:00 135 mm[Hg] [facility] Oxygen saturation by 2020-09-21 16:00:00 95 /min [facility] Heart Rate 2020-09-21 16:00:00 78 /min [facility] Respiratory rate 2020-09-21 16:00:00 18 /min [facility] Body Temperature 2020-09-21 16:00:00 98.4 [degF] [facility] BP Diastolic 2020-09-21 13:02:00 90 mm[Hg] [facility] BP Systolic 2020-09-21 13:02:00 201 mm[Hg] [facility] Oxygen saturation by 2020-09-21 13:02:00 96 /min [facility] Heart Rate 2020-09-21 13:02:00 70 /min [facility] Respiratory rate 2020-09-21 13:02:00 18 /min [facility] Body Temperature 2020-09-21 13:02:00 98.3 [degF] [facility] Oxygen saturation by 2020-09-21 10:15:00 96 /min [facility] Heart Rate 2020-09-21 10:15:00 72 /min [facility] Respiratory rate 2020-09-21 10:15:00 18 /min [facility] BP Diastolic 2020-09-21 09:08:00 63 mm[Hg] [facility] BP Systolic 2020-09-21 09:08:00 150 mm[Hg] [facility] Oxygen saturation by 2020-09-21 09:08:00 95 /min [facility] Heart Rate 2020-09-21 09:08:00 63 /min [...] Oxygen saturation by 2020-09-21 08:58:00 95 /min [facility] Heart Rate 2020-09-21 08:58:00 63 /min [facility] Respiratory rate 2020-09-21 08:58:00 17 /min [facility] Body Temperature 2020-09-21 08:58:00 98.0 [degF] [facility] BP Diastolic 2020-09-21 07:38:00 63 mm[Hg] [facility] BP Systolic 2020-09-21 07:38:00 150 mm[Hg] [facility] Oxygen saturation by 2020-09-21 07:38:00 95 /min [facility] Heart Rate 2020-09-21 07:38:00 63 /min [facility] Respiratory rate 2020-09-21 07:38:00 17 /min [facility] Body Temperature 2020-09-21 07:38:00 98.0 [degF] [facility] BP Diastolic 2020-09-21 04:00:00 70 mm[Hg] [facility] BP Systolic 2020-09-21 04:00:00 149 mm[Hg] [facility] Oxygen saturation by 2020-09-21 04:00:00 94 /min [facility] Heart Rate 2020-09-21 04:00:00 73 /min [...] [facility] Heart Rate 2020-09-21 00:00:00 76 /min [facility] Respiratory rate 2020-09-21 00:00:00 21 /min [facility] Body Temperature 2020-09-21 00:00:00 98.2 [degF] [facility] BP Diastolic 2020-09-20 20:00:00 69 mm[Hg] [facility] BP Systolic 2020-09-20 20:00:00 155 mm[Hg] [facility] Oxygen saturation by 2020-09-20 20:00:00 94 /min [facility] Heart Rate 2020-09-20 20:00:00 72 /min [facility] Respiratory rate 2020-09-20 20:00:00 20 /min [facility] Body Temperature 2020-09-20 20:00:00 98.1 [degF] [facility] Oxygen saturation by 2020-09-20 19:53:00 99 /min [facility] Heart Rate 2020-09-20 19:53:00 72 /min [facility] Respiratory rate 2020-09-20 19:53:00 16 /min [facility] Oxygen saturation by 2020-09-20 19:45:00 96 /min [facility] Heart Rate 2020-09-20 19:45:00 75 /min [facility] Respiratory rate 2020-09-20 19:45:00 18 /min [facility] BP Diastolic 2020-09-20 16:36:00 69 mm[Hg] [facility] BP Systolic 2020-09-20 16:36:00 155 mm[Hg] [facility] Oxygen saturation by 2020-09-20 16:36:00 97 /min [facility] Heart Rate 2020-09-20 16:36:00 73 /min [facility] Respiratory rate 2020-09-20 16:36:00 21 /min [facility] Body Temperature 2020-09-20 16:36:00 98.3 [degF] [facility] BP Diastolic 2020-09-20 15:47:00 60 mm[Hg] [facility] BP Systolic 2020-09-20 15:47:00 133 mm[Hg] [facility] Oxygen saturation by 2020-09-20 15:47:00 94 /min [facility] Heart Rate 2020-09-20 15:47:00 71 /min [facility] Respiratory rate 2020-09-20 15:47:00 19 /min [facility] Body Temperature 2020-09-20 15:47:00 98.1 [degF] [facility] BP Diastolic 2020-09-20 11:55:00 60 mm[Hg] [facility] BP Systolic 2020-09-20 11:55:00 133 mm[Hg] [facility] Oxygen saturation by 2020-09-20 11:55:00 94 /min [facility] Heart Rate 2020-09-20 11:55:00 71 /min [facility] Respiratory rate 2020-09-20 11:55:00 19 /min [facility] Body Temperature 2020-09-20 11:55:00 98.1 [degF] [facility] BP Diastolic 2020-09-20 09:06:00 66 mm[Hg] [facility] BP Systolic 2020-09-20 09:06:00 145 mm[Hg] [facility] Oxygen saturation by 2020-09-20 09:06:00 99 /min [facility] Heart Rate 2020-09-20 09:06:00 86 /min [facility] Respiratory rate 2020-09-20 09:06:00 19 /min [facility] Body Temperature 2020-09-20 09:06:00 98.4 [degF] [facility] BP Diastolic 2020-09-20 08:58:00 66 mm[Hg] [facility] BP Systolic 2020-09-20 08:58:00 145 mm[Hg] [facility] Oxygen saturation by 2020-09-20 08:58:00 99 /min [facility] Heart Rate 2020-09-20 08:58:00 86 /min [facility] Respiratory rate 2020-09-20 08:58:00 19 /min [facility] Body Temperature 2020-09-20 08:58:00 98.4 [degF] [facility] BP Diastolic 2020-09-20 08:55:00 66 mm[Hg] [facility] BP Systolic 2020-09-20 08:55:00 145 mm[Hg] [facility] Oxygen saturation by 2020-09-20 08:55:00 99 /min [facility] Heart Rate 2020-09-20 08:55:00 86 /min [facility] Respiratory rate 2020-09-20 08:55:00 19 /min [facility] Body Temperature 2020-09-20 08:55:00 98.4 [degF] [facility] BP Diastolic 2020-09-20 07:38:00 66 mm[Hg] [facility] BP Systolic 2020-09-20 07:38:00 145 mm[Hg] [facility] Oxygen saturation by 2020-09-20 07:38:00 99 /min [facility] Heart Rate 2020-09-20 07:38:00 71 /min [facility] Respiratory rate 2020-09-20 07:38:00 19 /min [facility] Body Temperature 2020-09-20 07:38:00 98.4 [degF] [facility] Oxygen saturation by 2020-09-20 07:05:00 95 /min [facility] Heart Rate 2020-09-20 07:05:00 82 /min [facility] Respiratory rate 2020-09-20 07:05:00 18 /min [facility] BP Diastolic 2020-09-20 04:00:00 61 mm[Hg] [facility] BP Systolic 2020-09-20 04:00:00 145 mm[Hg] [facility] Oxygen saturation by 2020-09-20 04:00:00 96 /min [facility] Heart Rate 2020-09-20 04:00:00 66 /min [...] [facility] Heart Rate 2020-09-20 00:00:00 66 /min [...] [facility] Heart Rate 2020-09-19 21:46:00 80 /min [facility] Respiratory rate 2020-09-19 21:46:00 18 /min [facility] Body Temperature 2020-09-19 21:46:00 97.4 [degF] [facility] Oxygen saturation by 2020-09-19 20:09:00 95 /min [facility] Heart Rate 2020-09-19 20:09:00 82 /min [...] [facility] Heart Rate 2020-09-19 20:00:00 80 /min [facility] Respiratory rate 2020-09-19 20:00:00 18 /min [facility] Body Temperature 2020-09-19 20:00:00 97.4 [degF] [facility] BP Diastolic 2020-09-19 15:41:00 70 mm[Hg] [facility] BP Systolic 2020-09-19 15:41:00 157 mm[Hg] [facility] Oxygen saturation by 2020-09-19 15:41:00 95 /min [facility] Heart Rate 2020-09-19 15:41:00 80 /min [...] [facility] Heart Rate 2020-09-19 12:14:00 84 /min [...] [facility] Heart Rate 2020-09-19 11:26:00 88 /min [facility] Respiratory rate 2020-09-19 11:26:00 16 /min [facility] Body Temperature 2020-09-19 11:26:00 98.6 [degF] [facility] Oxygen saturation by 2020-09-19 08:10:00 93 /min [facility] Heart Rate 2020-09-19 08:10:00 97 /min [facility] Respiratory rate 2020-09-19 08:10:00 20 /min [facility] BP Diastolic 2020-09-19 07:37:00 91 mm[Hg] [facility] BP Systolic 2020-09-19 07:37:00 168 mm[Hg] [facility] Oxygen saturation by 2020-09-19 07:37:00 97 /min [facility] Heart Rate 2020-09-19 07:37:00 83 /min [facility] Respiratory rate 2020-09-19 07:37:00 21 /min [facility] Body Temperature 2020-09-19 07:37:00 98.1 [degF] [facility] BP Diastolic 2020-09-19 07:17:00 91 mm[Hg] [facility] BP Systolic 2020-09-19 07:17:00 168 mm[Hg] [facility] Oxygen saturation by 2020-09-19 07:17:00 97 /min [facility] Heart Rate 2020-09-19 07:17:00 83 /min [facility] Respiratory rate 2020-09-19 07:17:00 21 /min [facility] Body Temperature 2020-09-19 07:17:00 98.1 [degF] [facility] BP Diastolic 2020-09-19 05:03:00 97 mm[Hg] [facility] BP Systolic 2020-09-19 05:03:00 157 mm[Hg] [facility] Oxygen saturation by 2020-09-19 05:03:00 93 /min [facility] Heart Rate 2020-09-19 05:03:00 91 /min [facility] Respiratory rate 2020-09-19 05:03:00 18 /min [facility] Body Temperature 2020-09-19 05:03:00 91.0 [degF] [facility] BP Diastolic 2020-09-19 01:59:00 87 mm[Hg] [facility] BP Systolic 2020-09-19 01:59:00 200 mm[Hg] [facility] Oxygen saturation by 2020-09-19 01:59:00 96 /min [facility] Heart Rate 2020-09-19 01:59:00 92 /min [...] [facility] Heart Rate 2020-09-18 22:57:00 68 /min [...] [facility] Heart Rate 2020-09-18 21:58:00 68 /min [facility] Respiratory rate 2020-09-18 21:58:00 18 /min [facility] Body Temperature 2020-09-18 21:58:00 97.7 [degF] [facility] Oxygen saturation by 2020-09-18 21:16:00 93 /min [facility] Heart Rate 2020-09-18 21:16:00 97 /min [facility] Respiratory rate 2020-09-18 21:16:00 20 /min [facility] BP Diastolic 2020-09-18 15:41:00 70 mm[Hg] [facility] BP Systolic 2020-09-18 15:41:00 163 mm[Hg] [facility] Oxygen saturation by 2020-09-18 15:41:00 98 /min [facility] Heart Rate 2020-09-18 15:41:00 84 /min [...] [facility] Heart Rate 2020-09-18 13:00:00 86 /min [...] [facility] Heart Rate 2020-09-18 12:00:00 85 /min [...] [facility] Heart Rate 2020-09-18 11:00:00 86 /min [...] [facility] Heart Rate 2020-09-18 10:00:00 80 /min [facility] Respiratory rate 2020-09-18 10:00:00 19 /min [facility] BP Diastolic 2020-09-18 09:00:00 80 mm[Hg] [facility] BP Systolic 2020-09-18 09:00:00 141 mm[Hg] [facility] Oxygen saturation by 2020-09-18 09:00:00 96 /min [facility] Heart Rate 2020-09-18 09:00:00 86 /min [facility] Respiratory rate 2020-09-18 09:00:00 18 /min [facility] Body Temperature 2020-09-18 09:00:00 97.7 [degF] [facility] BP Diastolic 2020-09-18 08:00:00 70 mm[Hg] [facility] BP Systolic 2020-09-18 08:00:00 146 mm[Hg] [facility] Oxygen saturation by 2020-09-18 08:00:00 96 /min [facility] Heart Rate 2020-09-18 08:00:00 86 /min [...] [facility] Heart Rate 2020-09-18 07:51:00 86 /min [facility] Respiratory rate 2020-09-18 07:51:00 17 /min [facility] Body Temperature 2020-09-18 07:51:00 97.7 [degF] [facility] Oxygen saturation by 2020-09-18 07:35:00 97 /min [facility] Heart Rate 2020-09-18 07:35:00 85 /min [facility] Respiratory rate 2020-09-18 07:35:00 20 /min [facility] BP Diastolic 2020-09-18 07:00:00 80 mm[Hg] [facility] BP Systolic 2020-09-18 07:00:00 141 mm[Hg] [facility] Oxygen saturation by 2020-09-18 07:00:00 97 /min [facility] Heart Rate 2020-09-18 07:00:00 86 /min [facility] Respiratory rate 2020-09-18 07:00:00 17 /min [facility] Body Temperature 2020-09-18 07:00:00 97.7 [degF] [facility] BP Diastolic 2020-09-18 06:00:00 85 mm[Hg] [facility] BP Systolic 2020-09-18 06:00:00 174 mm[Hg] [facility] Oxygen saturation by 2020-09-18 06:00:00 96 /min [facility] Heart Rate 2020-09-18 06:00:00 95 /min [...] [facility] Heart Rate 2020-09-18 05:00:00 86 /min [facility] Respiratory rate 2020-09-18 05:00:00 18 /min [facility] BP Diastolic 2020-09-18 04:00:00 74 mm[Hg] [facility] BP Systolic 2020-09-18 04:00:00 150 mm[Hg] [facility] Oxygen saturation by 2020-09-18 04:00:00 96 /min [facility] Heart Rate 2020-09-18 04:00:00 76 /min [facility] Res[facility] rate 2020-09-18 04:00:00 17 /min [facility] BP Diastolic 2020-09-18 03:00:00 88 mm[Hg] [facility] BP Systolic 2020-09-18 03:00:00 157 mm[Hg] [facility] Oxygen saturation by 2020-09-18 03:00:00 97 /min [facility] Heart Rate 2020-09-18 03:00:00 89 /min [facility] Respiratory rate 2020-09-18 03:00:00 15 /min [facility] BP Diastolic 2020-09-18 02:00:00 80 mm[Hg] [facility] BP Systolic 2020-09-18 02:00:00 145 mm[Hg] [facility] Oxygen saturation by 2020-09-18 02:00:00 96 /min [facility] Heart Rate 2020-09-18 02:00:00 95 /min [facility] Respiratory rate 2020-09-18 02:00:00 16 /min [facility] BP Diastolic 2020-09-18 01:00:00 73 mm[Hg] [facility] BP Systolic 2020-09-18 01:00:00 144 mm[Hg] [facility] Oxygen saturation by 2020-09-18 01:00:00 97 /min [facility] Heart Rate 2020-09-18 01:00:00 84 /min [facility] Respiratory rate 2020-09-18 01:00:00 19 /min [facility] BP Diastolic 2020-09-18 00:00:00 68 mm[Hg] [facility] BP Systolic 2020-09-18 00:00:00 144 mm[Hg] [facility] Oxygen saturation by 2020-09-18 00:00:00 97 /min [facility] Heart Rate 2020-09-18 00:00:00 89 /min [facility] Respiratory rate 2020-09-18 00:00:00 18 /min [facility] Body Temperature 2020-09-18 00:00:00 98.3 [degF] [facility] BP Diastolic 2020-09-17 23:00:00 89 mm[Hg] [facility] BP Systolic 2020-09-17 23:00:00 145 mm[Hg] [facility] Oxygen saturation by 2020-09-17 23:00:00 96 /min [facility] Heart Rate 2020-09-17 23:00:00 90 /min [...] [facility] Heart Rate 2020-09-17 22:03:00 90 /min [...] [facility] Heart Rate 2020-09-17 21:00:00 97 /min [facility] Respiratory rate 2020-09-17 21:00:00 19 /min [facility] Oxygen saturation by 2020-09-17 20:08:00 96 /min [facility] Heart Rate 2020-09-17 20:08:00 95 /min [...] [facility] Heart Rate 2020-09-17 20:00:00 105 /min [...] [facility] Heart Rate 2020-09-17 19:00:00 102 /min [facility] Respiratory rate 2020-09-17 19:00:00 23 /min [facility] Body Temperature 2020-09-17 19:00:00 97.4 [degF] [facility] BP Diastolic 2020-09-17 18:00:00 74 mm[Hg] [facility] BP Systolic 2020-09-17 18:00:00 146 mm[Hg] [facility] Oxygen saturation by 2020-09-17 18:00:00 95 /min [facility] Heart Rate 2020-09-17 18:00:00 97 /min [facility] Respiratory rate 2020-09-17 18:00:00 18 /min [facility] BP Diastolic 2020-09-17 17:00:00 73 mm[Hg] [facility] BP Systolic 2020-09-17 17:00:00 134 mm[Hg] [facility] Oxygen saturation by 2020-09-17 17:00:00 94 /min [facility] Heart Rate 2020-09-17 17:00:00 106 /min [...] [facility] Heart Rate 2020-09-17 16:00:00 96 /min [facility] Respiratory rate 2020-09-17 16:00:00 32 /min [facility] Body Temperature 2020-09-17 16:00:00 98.6 [degF] [facility] Oxygen saturation by 2020-09-17 15:28:00 94 /min [facility] Heart Rate 2020-09-17 15:28:00 83 /min [facility] Respiratory rate 2020-09-17 15:28:00 26 /min [facility] Oxygen saturation by 2020-09-17 15:27:00 94 /min [facility] Heart Rate 2020-09-17 15:27:00 83 /min [...] [facility] Heart Rate 2020-09-17 15:00:00 93 /min [facility] Respiratory rate 2020-09-17 15:00:00 24 /min [facility] Oxygen saturation by 2020-09-17 14:59:00 94 /min [facility] Heart Rate 2020-09-17 14:59:00 84 /min [...] [facility] Heart Rate 2020-09-17 14:00:00 109 /min [facility] Respiratory rate 2020-09-17 14:00:00 29 /min [facility] BP Diastolic 2020-09-17 13:00:00 87 mm[Hg] [facility] BP Systolic 2020-09-17 13:00:00 171 mm[Hg] [facility] Oxygen saturation by 2020-09-17 13:00:00 92 /min [facility] Heart Rate 2020-09-17 13:00:00 112 /min [facility] Respiratory rate 2020-09-17 13:00:00 28 /min [facility] BP Diastolic 2020-09-17 12:00:00 75 mm[Hg] [facility] BP Systolic 2020-09-17 12:00:00 132 mm[Hg] [facility] Oxygen saturation by 2020-09-17 12:00:00 92 /min [facility] Heart Rate 2020-09-17 12:00:00 112 /min [...] [facility] Heart Rate 2020-09-17 11:00:00 119 /min [facility] Respiratory rate 2020-09-17 11:00:00 39 /min [...] Center BP Systolic 2020-09-17 09:00:00 175 mm[Hg] [facility] [place] Oxygen saturation by 2020-09-17 09:00:00 97 /min [facility] Heart Rate 2020-09-17 09:00:00 88 /min [...] [facility] Heart Rate 2020-09-17 08:00:00 85 /min [...] [facility] Heart Rate 2020-09-17 07:00:00 84 /min [...] [facility] Heart Rate 2020-09-17 06:00:00 83 /min [...] [facility] Heart Rate 2020-09-17 05:00:00 84 /min [facility] Respiratory rate 2020-09-17 05:00:00 16 /min [facility] BP Diastolic 2020-09-17 04:00:00 85 mm[Hg] [facility] BP Systolic 2020-09-17 04:00:00 155 mm[Hg] [facility] Oxygen saturation by 2020-09-17 04:00:00 96 /min [facility] Heart Rate 2020-09-17 04:00:00 86 /min [facility] Respiratory rate 2020-09-17 04:00:00 22 /min [facility] BP Diastolic 2020-09-17 03:30:00 84 mm[Hg] [facility] BP Systolic 2020-09-17 03:30:00 196 mm[Hg] [facility] BP Diastolic 2020-09-17 03:00:00 82 mm[Hg] [facility] BP Systolic 2020-09-17 03:00:00 188 mm[Hg] [facility] Oxygen saturation by 2020-09-17 03:00:00 97 /min [facility] Heart Rate 2020-09-17 03:00:00 90 /min [facility] Respiratory rate 2020-09-17 03:00:00 18 /min [facility] Body Temperature 2020-09-17 03:00:00 97.6 [degF] [facility] BP Diastolic 2020-09-17 02:00:00 75 mm[Hg] [facility] BP Systolic 2020-09-17 02:00:00 154 mm[Hg] [facility] Oxygen saturation by 2020-09-17 02:00:00 95 /min [facility] Heart Rate 2020-09-17 02:00:00 88 /min [...] [facility] Heart Rate 2020-09-17 01:00:00 88 /min [facility] Respiratory rate 2020-09-17 01:00:00 15 /min [facility] BP Diastolic 2020-09-17 00:00:00 76 mm[Hg] [facility] BP Systolic 2020-09-17 00:00:00 171 mm[Hg] [facility] Oxygen saturation by 2020-09-17 00:00:00 96 /min [facility] Heart Rate 2020-09-17 00:00:00 92 /min [facility] Respiratory rate 2020-09-17 00:00:00 26 /min [facility] Oxygen saturation by 2020-09-16 23:05:00 95 /min [facility] Heart Rate 2020-09-16 23:05:00 77 /min [...] [facility] Heart Rate 2020-09-16 23:00:00 83 /min [...] Center BP Diastolic 2020-09-16 22:06:00 82 mm[Hg] [facility] BP Systolic 2020-09-16 22:06:00 176 mm[Hg] [facility] Oxygen saturation by 2020-09-16 22:06:00 96 /min [facility] Heart Rate 2020-09-16 22:06:00 82 /min [facility] Respiratory rate 2020-09-16 22:06:00 18 /min [facility] BP Diastolic 2020-09-16 22:03:00 81 mm[Hg] [facility] BP Systolic 2020-09-16 22:03:00 201 mm[Hg] [facility] Oxygen saturation by 2020-09-16 22:03:00 96 /min [facility] Heart Rate 2020-09-16 22:03:00 84 /min [facility] Respiratory rate 2020-09-16 22:03:00 22 /min [facility] BP Diastolic 2020-09-16 22:00:00 86 mm[Hg] [facility] BP Systolic 2020-09-16 22:00:00 206 mm[Hg] [facility] Oxygen saturation by 2020-09-16 22:00:00 96 /min [facility] Heart Rate 2020-09-16 22:00:00 86 /min [facility] Respiratory rate 2020-09-16 22:00:00 19 /min [facility] BP Diastolic 2020-09-16 21:01:00 69 mm[Hg] [facility] BP Systolic 2020-09-16 21:01:00 153 mm[Hg] [facility] Oxygen saturation by 2020-09-16 21:01:00 96 /min [facility] Heart Rate 2020-09-16 21:01:00 85 /min [facility] Respiratory rate 2020-09-16 21:01:00 17 /min [facility] BP Diastolic 2020-09-16 20:44:00 111 mm[Hg] [facility] BP Systolic 2020-09-16 20:44:00 141 mm[Hg] [facility] Oxygen saturation by 2020-09-16 20:44:00 96 /min [facility] Heart Rate 2020-09-16 20:44:00 84 /min [facility] Respiratory rate 2020-09-16 20:44:00 21 /min [facility] Body Temperature 2020-09-16 20:44:00 98.0 [degF] [facility] BP Diastolic 2020-09-16 20:42:00 111 mm[Hg] [facility] BP Systolic 2020-09-16 20:42:00 141 mm[Hg] [facility] [...] Center BP Systolic 2020-09-16 20:00:00 185 mm[Hg] [facility] Oxygen saturation by 2020-09-16 20:00:00 96 /min [facility] Heart Rate 2020-09-16 20:00:00 96 /min [facility] Respiratory rate 2020-09-16 20:00:00 21 /min [facility] Body Temperature 2020-09-16 20:00:00 98.0 [degF] [facility] Oxygen saturation by 2020-09-16 19:40:00 96 /min [facility] Heart Rate 2020-09-16 19:40:00 105 /min [facility] Respiratory rate 2020-09-16 19:40:00 27 /min [facility] BP Diastolic 2020-09-16 16:00:00 90 mm[Hg] [facility] BP Systolic 2020-09-16 16:00:00 175 mm[Hg] [facility] Oxygen saturation by 2020-09-16 16:00:00 96 /min [facility] Heart Rate 2020-09-16 16:00:00 108 /min [facility] Respiratory rate 2020-09-16 16:00:00 36 /min [facility] Body Temperature 2020-09-16 16:00:00 98.5 [degF] [facility] BP Diastolic 2020-09-16 13:00:00 73 mm[Hg] [facility] BP Systolic 2020-09-16 13:00:00 149 mm[Hg] [facility] Oxygen saturation by 2020-09-16 13:00:00 2 /min [facility] Heart Rate 2020-09-16 13:00:00 90 /min [facility] Respiratory rate 2020-09-16 13:00:00 15 /min [facility] BP Diastolic 2020-09-16 12:00:00 88 mm[Hg] [facility] BP Systolic 2020-09-16 12:00:00 174 mm[Hg] [facility] Oxygen saturation by 2020-09-16 12:00:00 94 /min [facility] Heart Rate 2020-09-16 12:00:00 101 /min [facility] Respiratory rate 2020-09-16 12:00:00 32 /min [facility] Body Temperature 2020-09-16 12:00:00 97.8 [degF] [facility] Oxygen saturation by 2020-09-16 11:00:00 96 /min [facility] Heart Rate 2020-09-16 11:00:00 79 /min [facility] Respiratory rate 2020-09-16 11:00:00 19 /min [facility] BP Diastolic 2020-09-16 11:00:00 81 mm[Hg] [facility] BP Systolic 2020-09-16 11:00:00 186 mm[Hg] [facility] BP Diastolic 2020-09-16 10:00:00 82 mm[Hg] [facility] BP Systolic 2020-09-16 10:00:00 166 mm[Hg] [facility] Oxygen saturation by 2020-09-16 10:00:00 95 /min [facility] Heart Rate 2020-09-16 10:00:00 82 /min [facility] Respiratory rate 2020-09-16 10:00:00 20 /min [facility] Body Temperature 2020-09-16 10:00:00 98.4 [degF] [facility] BP Diastolic 2020-09-16 09:00:00 82 mm[Hg] [facility] BP Systolic 2020-09-16 09:00:00 166 mm[Hg] [facility] Oxygen saturation by 2020-09-16 09:00:00 95 /min [facility] Heart Rate 2020-09-16 09:00:00 82 /min [facility] Respiratory rate 2020-09-16 09:00:00 20 /min [facility] BP Diastolic 2020-09-16 08:00:00 77 mm[Hg] [facility] BP Systolic 2020-09-16 08:00:00 197 mm[Hg] [facility] Oxygen saturation by 2020-09-16 08:00:00 94 /min [facility] Heart Rate 2020-09-16 08:00:00 79 /min [facility] Respiratory rate 2020-09-16 08:00:00 23 /min [facility] BP Diastolic 2020-09-16 07:00:00 110 mm[Hg] [facility] BP Systolic 2020-09-16 07:00:00 173 mm[Hg] [facility] Oxygen saturation by 2020-09-16 07:00:00 95 /min [facility] Heart Rate 2020-09-16 07:00:00 73 /min [...] 178 mm[Hg] [facility] Oxygen saturation by 2020-09-16 06:00:00 93 /min [facility] Heart Rate 2020-09-16 06:00:00 87 /min [facility] Respiratory rate 2020-09-16 06:00:00 19 /min [facility] BP Diastolic 2020-09-16 05:00:00 71 mm[Hg] [facility] BP Systolic 2020-09-16 05:00:00 150 mm[Hg] [facility] Oxygen saturation by 2020-09-16 05:00:00 96 /min [facility] Heart Rate 2020-09-16 05:00:00 89 /min [facility] Respiratory rate 2020-09-16 05:00:00 22 /min [facility] BP Diastolic 2020-09-16 04:00:00 71 mm[Hg] [facility] BP Systolic 2020-09-16 04:00:00 139 mm[Hg] [facility] Oxygen saturation by 2020-09-16 04:00:00 96 /min [facility] Heart Rate 2020-09-16 04:00:00 85 /min [facility] Respiratory rate 2020-09-16 04:00:00 16 /min [facility] BP Diastolic 2020-09-16 03:00:00 69 mm[Hg] [facility] BP Systolic 2020-09-16 03:00:00 135 mm[Hg] [facility] Oxygen saturation by 2020-09-16 03:00:00 95 /min [facility] Heart Rate 2020-09-16 03:00:00 82 /min [facility] Respiratory rate 2020-09-16 03:00:00 15 /min [facility] Body Temperature 2020-09-16 03:00:00 98.5 [degF] [facility] BP Diastolic 2020-09-16 02:00:00 66 mm[Hg] [facility] BP Systolic 2020-09-16 02:00:00 140 mm[Hg] [facility] Oxygen saturation by 2020-09-16 02:00:00 95 /min [facility] Heart Rate 2020-09-16 02:00:00 83 /min [facility] Respiratory rate 2020-09-16 02:00:00 17 /min [facility] BP Diastolic 2020-09-16 01:00:00 70 mm[Hg] [facility] BP Systolic 2020-09-16 01:00:00 164 mm[Hg] [facility] Oxygen saturation by 2020-09-16 01:00:00 96 /min [facility] Heart Rate 2020-09-16 01:00:00 84 /min [...] [facility] Heart Rate 2020-09-16 00:00:00 77 /min [facility] [facility] Respiratory rate 2020-09-16 00:00:00 20 /min [facility] Body Temperature 2020-09-16 00:00:00 98.6 [degF] [facility] BP Diastolic 2020-09-15 23:00:00 59 mm[Hg] [facility] BP Systolic 2020-09-15 23:00:00 143 mm[Hg] [facility] Oxygen saturation by 2020-09-15 23:00:00 95 /min [facility] - Pulse oximetry [facility] Heart Rate 2020-09-15 23:00:00 79 /min [facility] Respiratory rate 2020-09-15 23:00:00 18 /min [facility] BP Diastolic 2020-09-15 22:00:00 55 mm[Hg] [facility] BP Systolic 2020-09-15 22:00:00 133 mm[Hg] [facility] Oxygen saturation by 2020-09-15 22:00:00 94 /min [facility] Heart Rate 2020-09-15 22:00:00 78 /min [...] [facility] Heart Rate 2020-09-15 21:00:00 79 /min [facility] Respiratory rate 2020-09-15 21:00:00 17 /min [facility] Oxygen saturation by 2020-09-15 20:50:00 94 /min [facility] Heart Rate 2020-09-15 20:50:00 81 /min [facility] Respiratory rate 2020-09-15 20:50:00 18 /min [facility] BP Diastolic 2020-09-15 20:00:00 56 mm[Hg] [facility] BP Systolic 2020-09-15 20:00:00 165 mm[Hg] [facility] Oxygen saturation by 2020-09-15 20:00:00 97 /min [facility] Heart Rate 2020-09-15 20:00:00 76 /min [facility] Respiratory rate 2020-09-15 20:00:00 22 /min [facility] Oxygen saturation by 2020-09-15 19:00:00 96 /min [facility] Respiratory rate 2020-09-15 19:00:00 14 /min [facility] Body Temperature 2020-09-15 19:00:00 98.7 [degF] [facility] BP Diastolic 2020-09-15 18:00:00 115 mm[Hg] [facility] BP Systolic 2020-09-15 18:00:00 154 mm[Hg] [facility] Oxygen saturation by 2020-09-15 18:00:00 94 /min [facility] Heart Rate 2020-09-15 18:00:00 79 /min [facility] Respiratory rate 2020-09-15 18:00:00 19 /min [facility] BP Diastolic 2020-09-15 17:00:00 65 mm[Hg] [facility] BP Systolic 2020-09-15 17:00:00 154 mm[Hg] [facility] Oxygen saturation by 2020-09-15 17:00:00 95 /min [facility] Heart Rate 2020-09-15 17:00:00 71 /min [facility] Respiratory rate 2020-09-15 17:00:00 18 /min [facility] BP Diastolic 2020-09-15 16:00:00 75 mm[Hg] [facility] BP Systolic 2020-09-15 16:00:00 159 mm[Hg] [facility] Oxygen saturation by 2020-09-15 16:00:00 94 /min [facility] Heart Rate 2020-09-15 16:00:00 75 /min [facility] Respiratory rate 2020-09-15 16:00:00 16 /min [facility] BP Diastolic 2020-09-15 15:14:00 71 mm[Hg] [facility] BP Systolic 2020-09-15 15:14:00 169 mm[Hg] [facility] Oxygen saturation by 2020-09-15 15:14:00 100 /min [facility] Heart Rate 2020-09-15 15:14:00 75 /min [facility] Body Temperature 2020-09-15 15:14:00 97.7 [degF] [facility] BP Diastolic 2020-09-15 15:10:00 66 mm[Hg] [facility] BP Systolic 2020-09-15 15:10:00 156 mm[Hg] [facility] Oxygen saturation by 2020-09-15 15:10:00 100 /min [facility] Heart Rate 2020-09-15 15:10:00 74 /min [facility] Respiratory rate 2020-09-15 15:10:00 18 /min [facility] BP Diastolic 2020-09-15 14:50:00 84 mm[Hg] [facility] BP Systolic 2020-09-15 14:50:00 176 mm[Hg] [facility] Oxygen saturation by 2020-09-15 14:50:00 100 /min [facility] Heart Rate 2020-09-15 14:50:00 81 /min [facility] Respiratory rate 2020-09-15 14:50:00 18 /min [facility] BP Diastolic 2020-09-15 14:40:00 94 mm[Hg] [facility] BP Systolic 2020-09-15 14:40:00 200 mm[Hg] [facility] Oxygen saturation by 2020-09-15 14:40:00 97 /min [facility] Heart Rate 2020-09-15 14:40:00 96 /min [facility] Respiratory rate 2020-09-15 14:40:00 16 /min [facility] BP Diastolic 2020-09-15 14:25:00 96 mm[Hg] [facility] BP Systolic 2020-09-15 14:25:00 175 mm[Hg] [facility] Oxygen saturation by 2020-09-15 14:25:00 98 /min [facility] Heart Rate 2020-09-15 14:25:00 99 /min [facility] Respiratory rate 2020-09-15 14:25:00 16 /min [...] [facility] Heart Rate 2020-09-15 11:14:00 70 /min [facility] Respiratory rate 2020-09-15 11:14:00 18 /min [facility] Body Temperature 2020-09-15 11:14:00 97.6 [degF] [facility] BP Diastolic 2020-09-15 08:52:00 75 mm[Hg] [facility] BP Systolic 2020-09-15 08:52:00 171 mm[Hg] [facility] Oxygen saturation by 2020-09-15 08:52:00 92 /min [facility] Heart Rate 2020-09-15 08:52:00 74 /min [facility] Respiratory rate 2020-09-15 08:52:00 18 /min [facility] Body Temperature 2020-09-15 08:52:00 97.6 [degF] [facility] BP Diastolic 2020-09-15 07:45:00 75 mm[Hg] [facility] BP Systolic 2020-09-15 07:45:00 171 mm[Hg] [facility] Oxygen saturation by 2020-09-15 07:45:00 92 /min [facility] Heart Rate 2020-09-15 07:45:00 74 /min [...] [facility] Heart Rate 2020-09-15 04:00:00 68 /min [facility] Respiratory rate 2020-09-15 04:00:00 18 /min [facility] Body Temperature 2020-09-15 04:00:00 98.4 [degF] [facility] BP Diastolic 2020-09-15 00:00:00 71 mm[Hg] [facility] BP Systolic 2020-09-15 00:00:00 140 mm[Hg] [facility] Oxygen saturation by 2020-09-15 00:00:00 94 /min [facility] Heart Rate 2020-09-15 00:00:00 72 /min [...] [facility] Heart Rate 2020-09-14 20:27:00 90 /min [...] [facility] Heart Rate 2020-09-14 20:00:00 90 /min [facility] Respiratory rate 2020-09-14 20:00:00 20 /min [facility] Body Temperature 2020-09-14 20:00:00 98.5 [degF] [facility] BP Diastolic 2020-09-14 15:47:00 82 mm[Hg] [facility] BP Systolic 2020-09-14 15:47:00 155 mm[Hg] [facility] Oxygen saturation by 2020-09-14 15:47:00 95 /min [facility] Heart Rate 2020-09-14 15:47:00 85 /min [facility] Respiratory rate 2020-09-14 15:47:00 16 /min [facility] Body Temperature 2020-09-14 15:47:00 98.1 [degF] [facility] BP Diastolic 2020-09-14 11:15:00 73 mm[Hg] [facility] BP Systolic 2020-09-14 11:15:00 165 mm[Hg] [facility] Oxygen saturation by 2020-09-14 11:15:00 93 /min [facility] Heart Rate 2020-09-14 11:15:00 89 /min [facility] Respiratory rate 2020-09-14 11:15:00 19 /min [facility] Body Temperature 2020-09-14 11:15:00 98.3 [degF] [facility] BP Diastolic 2020-09-14 07:49:00 67 mm[Hg] [facility] BP Systolic 2020-09-14 07:49:00 166 mm[Hg] [facility] Oxygen saturation by 2020-09-14 07:49:00 93 /min [facility] Heart Rate 2020-09-14 07:49:00 88 /min [facility] Respiratory rate 2020-09-14 07:49:00 18 /min [facility] Body Temperature 2020-09-14 07:49:00 97.9 [degF] [facility] BP Diastolic 2020-09-14 07:31:00 67 mm[Hg] [facility] BP Systolic 2020-09-14 07:31:00 166 mm[Hg] [facility] Oxygen saturation by 2020-09-14 07:31:00 93 /min [facility] Heart Rate 2020-09-14 07:31:00 88 /min [facility] Respiratory rate 2020-09-14 07:31:00 18 /min [facility] Body Temperature 2020-09-14 07:31:00 97.9 [degF] [facility] BP Diastolic 2020-09-14 04:00:00 74 mm[Hg] [facility] BP Systolic 2020-09-14 04:00:00 175 mm[Hg] [facility] Oxygen saturation by 2020-09-14 04:00:00 94 /min [facility] Heart Rate 2020-09-14 04:00:00 94 /min [...] 178 mm[Hg] [facility] Oxygen saturation by 2020-09-14 00:00:00 95 /min [facility] Heart Rate 2020-09-14 00:00:00 90 /min [...] [facility] Heart Rate 2020-09-13 20:12:00 88 /min [...] [facility] Heart Rate 2020-09-13 20:00:00 88 /min [...] [facility] Heart Rate 2020-09-13 16:11:00 78 /min [...] [facility] Heart Rate 2020-09-13 12:08:00 82 /min [...] [facility] Heart Rate 2020-09-13 11:16:00 79 /min [...] [facility] Heart Rate 2020-09-13 08:45:00 79 /min [...] [facility] Heart Rate 2020-09-13 04:00:00 87 /min [...] [facility] Heart Rate 2020-09-13 00:00:00 76 /min [...] [facility] Heart Rate 2020-09-12 22:28:00 96 /min [...] [facility] Heart Rate 2020-09-12 22:18:00 96 /min [facility] Respiratory rate 2020-09-12 22:18:00 18 /min [facility] Body Temperature 2020-09-12 22:18:00 97.9 [degF] [facility] BP Diastolic 2020-09-12 20:23:00 92 mm[Hg] [facility] BP Systolic 2020-09-12 20:23:00 150 mm[Hg] [facility] Oxygen saturation by 2020-09-12 20:23:00 96 /min [facility]xim[facility] Heart Rate 2020-09-12 20:23:00 95 /min [facility] Respiratory rate 2020-09-12 20:23:00 18 /min [facility] Body Temperature 2020-09-12 20:23:00 97.9 [degF] [facility] Oxygen saturation by 2020-09-12 20:11:00 96 /min [facility] Oxygen saturation by 2020-09-12 18:25:00 98 /min [facility] Oxygen saturation by 2020-09-12 15:35:00 98 /min [facility] Procedures Procedure Date / Time Performing Clinician Source Performed XR CHEST 1 VW PORTABLE 2021-07-12 01:01:53 [facility] COVID-19 ANTI-SPIKE IGG 2021-07-11 10:41:00 [facility] ANTIBODY TITER COVID-19 SEROLOGY PATIENT 2021-07-11 10:41:00 [facility] SURVEILLANCE HC COMPLETE BLD COUNT 2021-07-11 10:41:[address] [facility] W/AUTO DIFF BASIC METABOLIC PANEL 2021-07-11 10:41:[address] [facility] ESTIMATED GFR 2021-07-11 10:41:00 [facility] URINE CULTURE 2021-07-11 06:57:00 [facility] AND 2021-07-11 04:07:00 Latrell Sharpe [facility] MICROSCOPY, WITH REFLEX TO CULTURE POC GLUCOSE 2021-07-11 00:27:00 [facility] POC GLUCOSE 2021-07-10 14:52:00 [facility] HC COMPLETE BLD COUNT 2021-07-10 10:51:[address] [facility] W/AUTO DIFF BASIC METABOLIC PANEL 2021-07-10 10:51:[address] [facility] ESTIMATED GFR 2021-07-10 10:51:00 [facility] POC GLUCOSE 2021-07-10 02:09:00 [facility] CT CHEST WO CONTRAST 2021-07-09 21:47:[facility] HC COMPLETE BLD COUNT 2021-07-09 11:14:[address] [facility] W/AUTO DIFF BASIC METABOLIC PANEL 2021-07-09 11:14:[address] [facility] ESTIMATED GFR 2021-07-09 11:14:00 [facility] BLOOD CULTURE, AEROBIC & 2021-07-09 08:54:00 [facility] Trav R. TROPONIN T 2021-07-09 07:57:00 [facility] THYROID STIMULATING 2021-07-09 07:57:00 [facility] HORMONE T4, FREE 2021-07-09 07:57:00 [facility] LIPID PANEL 2021-07-09 07:57:00 [facility] INTERLEUKIN 6 2021-07-09 07:57:00 [facility] CRP HIGH SENSITIVITY 2021-07-09 07:57:00 [facility] LDH 2021-07-09 07:57:00 [facility] D-DIMER 2021-07-09 07:57:00 [facility] PROCALCITONIN 2021-07-09 07:57:00 [facility] PROTHROMBIN TIME WITH INR 2021-07-09 07:57:00 [facility] SEDIMENTATION RATE 2021-07-09 07:57:00 [facility] FERRITIN LEVEL 2021-07-09 07:57:00 [facility] ECG 12-LEAD 2021-07-09 06:58:43 [facility] XR CHEST 1 VW PORTABLE 2021-07-09 05:32:00 [facility] Trav R. TROPONIN T 2021-07-09 04:50:00 [facility] CT HEAD WO CONTRAST 2021-07-09 01:50:00 [facility] Trav RChun COVID-19 QUALITATIVE 2021-07-09 01:34:00 [facility] RT-PCR Trav RChun COVID-19 OMICRON VARIANT 2021-07-09 01:34:00 [facility] QUALITATIVE RT-PCR Trav RChun HC COMPLETE BLD COUNT 2021-07-09 01:34:00 [facility] W/AUTO DIFF Trav RChun PROTHROMBIN TIME WITH INR 2021-07-09 01:34:00 [facility] Trav RChun PARTIAL THROMBOPLASTIN 2021-07-09 01:34:00 [facility] TIME (PTT) Trav RChun BASIC METABOLIC PANEL 2021-07-09 01:34:00 [facility] Trav R. TROPONIN T 2021-07-09 01:34:00 [facility] B NATRIURETIC PEPTIDE 2021-07-09 01:34:00 [facility] Trav R. ESTIMATED GFR 2021-07-09 01:34:00 [facility] barry Ravi R. ECG 12-LEAD 2021-07-08 22:51:26 [facility] spital Trav R. CT RENAL STONE PROTOCOL 2021-07-01 18:38:22 [facility] URINALYSIS 2021-07-01 18:13:00 [facility] HC COMPLETE BLD COUNT 2021-04-23 10:03:[address] [facility] W/AUTO DIFF BASIC METABOLIC PANEL 2021-04-23 10:03:[address] [facility] ESTIMATED GFR 2021-04-23 10:03:00 [facility] CT CARDIAC OVERREAD 2021-04-20 15:36[facility]45 [facility] CORONARY ARTERIES 2021-04-20 15:36:00 [facility] HC COMPLETE BLD COUNT 2021-04-20 11:45:[address] [facility] W/AUTO DIFF BASIC METABOLIC PANEL 2021-04-20 11:45:[address] [facility] ESTIMATED GFR 2021-04-20 11:45:00 [facility] POC GLUCOSE 2021-04-19 13:28:00 [facility] CV CARDIAC PET STRESS 2021-04-19 13:18:[facility] MYOCARDIAL 2021-04-19 13:18:51 Bebeto [facility] PERFUSION IMAGING TROPONIN 2021-04-19 09:43:00 Jaclyn Tate Ho spital BASIC METABOLIC PANEL 2021-04-19 09:43:00 Bebeto [facility] ESTIMATED GFR 2021-04-19 09:43:00 Jaclyn Tate spital TTE LIMITED W CONTRAST, W 2021-04-18 17:20:00 Bebeto [facility] DOPPLER ([id number]) HC COMPLETE BLD COUNT 2021-04-18 14:31:[address] [facility] W/AUTO DIFF BASIC METABOLIC PANEL 2021-04-18 14:31:[address] [facility] ESTIMATED GFR 2021-04-18 14:31:00 [facility] B NATRIURETIC PEPTIDE 2021-04-18 09:20:00 Bebeto [facility] HC COMPLETE BLD COUNT 2021-04-16 08:35:[address] [facility] W/AUTO DIFF BASIC METABOLIC PANEL 2021-04-16 08:35:[address] [facility] ESTIMATED GFR 2021-04-16 08:35:00 [facility] POC GLUCOSE 2021-04-15 15:09:00 [facility] BASIC METABOLIC PANEL 2021-04-14 09:00:[address] [facility] ESTIMATED GFR 2021-04-14 09:00:00 [facility] HC COMPLETE BLD COUNT 2021-04-14 08:40:[address] [facility] W/AUTO DIFF PARTIAL THROMBOPLASTIN 2021-04-14 08:40:00 Beb[facility] TIME (PTT) PARTIAL THROMBOPLASTIN 2021-04-13 22:47:00 Bebeto [facility] TIME (PTT) HC COMPLETE BLD COUNT 2021-04-13 15:52:[address] [facility] W/AUTO DIFF HC COMPLETE BLD COUNT 2021-04-13 11:34:[address] [facility] W/AUTO DIFF SMEAR REVIEW 2021-04-13 11:34:00 [facility] HC COMPLETE BLD COUNT 2021-04-13 09:55:[address] [facility] W/AUTO DIFF BASIC METABOLIC PANEL 2021-04-13 09:55:[address] [facility] B NATRIURETIC PEPTIDE 2021-04-13 09:55:00 Bebeto [facility] ESTIMATED GFR 2021-04-13 09:55:00 [facility] PARTIAL THROMBOPLASTIN 2021-04-13 09:55:00 Jaclyn [facility] TIME (PTT) TROPONIN 2021-04-13 09:00:00 Rafy [facility] spital PARTIAL THROMBOPLASTIN 2021-04-13 02:20:00 Bebeto [facility] TIME (PTT) TROPONIN 2021-04-12 23:00:00 Char Palomo spital TROPONIN 2021-04-12 15:34:00 [facility]OT[facility] TIME WITH INR 2021-04-12 15:34:00 Attzulay [facility] PARTIAL THROMBOPLASTIN 2021-04-12 15:34:00 Attzulay [facility] TIME (PTT) ANTI XA APIXABAN 2021-04-12 15:34:00 Rafy [facility]ammilan [facility] TTE COMPLETE, WO 2021-04-12 14:14:00 Rafy [facility]ammilan [facility]sp[facility] CONTRAST, W DOPPLER ([id number]) TROPONIN 2021-04-12 09:21:00 Char Palomo spital B NATRIURETIC PEPTIDE 2021-04-12 09:21[facility]00 [facility] MAGNESIUM LEVEL 2021-04-12 09:21:00 [facility] PHOSPHORUS LEVEL 2021-04-12 09:21:00 [facility]ST 1 VW PORTABLE 2021-04-12 08:46:00 [facility] ECG 12-LEAD 2021-04-12 08:03:09 [facility] COVID-19 ANTI-SPIKE IGG 2021-04-12 08:01:00 [facility] ANTIBODY TITER COVID-19 SEROLOGY PATIENT 2021-04-12 08:01:00 [facility] SURVEILLANCE HC COMPLETE BLD COUNT 2021-04-12 08:01:[address] [facility] W/AUTO DIFF BASIC METABOLIC PANEL 2021-04-12 08:01:[address] [facility] LIPID PANEL 2021-04-12 08:01:00 [facility] THYROID STIMULATING 2021-04-12 08:01:00 [facility] HORMONE T4, FREE 2021-04-12 08:01:00 [facility] ESTIMATED GFR 2021-04-12 08:01:00 [facility] RESPIRATORY PATHOGEN 2021-04-12 07:27:00 Char Palomo [facility] PANEL WITH COVID-19 RT-PCR US DUPLEX VENOUS LOWER 2021-03-10 01:23:00 [facility] EXTREMITY BILATERAL XR CHEST 1 VW 2021-03-10 00:19:00 Ofelia Celestin spital COMPREHENSIVE METABOLIC 2021-03-10 00:17:00 [facility] PANEL CBC WITH PLATELET AND 2021-03-10 00:17:00 [facility] DIFFERENTIAL B NATRIURETIC PEP, I-STAT 2021-03-10 00:17:00 [facility] TROPONIN, I-STAT 2021-03-10 00:17:00 Ofelia Celestin H ospital ESTIMATED GFR 2021-03-10 00:17:00 Ofelia Celestin spital MANUAL DIFFERENTIAL 2021-03-10 00:17:00 [facility] ECG ED PRELIMINARY 2021-03-10 00:16:14 [facility] INTERPRETATION ECG 12-LEAD 2021-03-09 23:55:17 [facility] HC COMPLETE BLD COUNT 2021-02-23 09:51:[address] [facility] W/AUTO DIFF BASIC METABOLIC PANEL 2021-02-23 09:51:[address] [facility] ESTIMATED GFR 2021-02-23 09:51:00 [facility] HC COMPLETE BLD COUNT 2021-02-22 09:32:[address] [facility] W/AUTO DIFF BASIC METABOLIC PANEL 2021-02-22 09:32:[address] [facility] ESTIMATED GFR 2021-02-22 09:32:00 [facility] HC COMPLETE BLD COUNT 2021-02-21 09:50:[address] [facility] W/AUTO DIFF BASIC METABOLIC PANEL 2021-02-21 09:50:[address] [facility] LIPID PANEL 2021-02-21 09:50:00 [facility] ESTIMATED GFR 2021-02-21 09:50:00 [facility] ANTI-SPIKE IGG 2021-02-20 23:58:00 [facility] ANTIBODY TITER COVID-19 SEROLOGY PATIENT 2021-02-20 23:58:00 [facility] SURVEILLANCE THYROID STIMULATING 2021-02-20 23:58:00 [facility] HORMONE T4, FREE 2021-02-20 23:58:00 [facility] FERRITIN LEVEL 2021-02-20 23:58:00 [facility] LDH 2021-02-20 23:58:00 [facility] SEDIMENTATION RATE 2021-02-20 23:58:00 [facility] CRP HIGH SENSITIVITY 2021-02-20 23:58:00 [facility] INTERLEUKIN 6 2021-02-20 23:58:00 [facility] PROCALCITONIN 2021-02-20 23:58:00 [facility] D-DIMER 2021-02-20 23:58:00 [facility] PROTHROMBIN TIME WITH INR 2021-02-20 23:58:00 [facility] TROPONIN, I-STAT 2021-02-20 15:35:00 [facility] COVID-19 QUALITATIVE 2021-02-20 14:41:00 [facility] ANGIOGRAM PE CHEST 2021-02-20 13:52:50 Osmel Fowler [facility] US DUPLEX VENOUS LOWER 2021-02-20 12:59:12 Isaac Quiles [facility] EXTREMITY RIGHT Narendra URINALYSIS 2021-02-20 12:35:00 [facility] XR CHEST 1 VW PORTABLE 2021-02-20 12:15:13 Isaac Quiles [facility] Narendra BASIC METABOLIC PANEL 2021-02-20 12:10:00 Isaac Quiles [facility] Narendra ESTIMATED GFR 2021-02-20 12:10:00 Isaac Quiles spital Narendra RESPIRATORY PATHOGEN 2021-02-20 12:05:00 [facility] PANEL WITH COVID-19 Narendra RT-PCR COMPREHENSIVE METABOLIC 2021-02-20 11:55:00 Isaac Quiles [facility] PANEL Narendra CBC WITH PLATELET AND 2021-02-20 11:55:00 Isaac Quiles [facility] DIFFERENTIAL Narendra CREATINE KINASE, TOTAL 2021-02-20 11:55:00 Isaac Quiles [facility] ([facility]) Narendra TROPONIN, I-STAT 2021-02-20 11:55:00 Vadim Bo [facility] ESTIMATED GFR 2021-02-20 11:55:00 Isaac Quiles spital Narendra PROTHROMBIN TIME WITH 2021-02-20 11:55:00 Isaac Quiles [facility] INR, I-STAT Narendra MANUAL DIFFERENTIAL 2021-02-20 11:55:00 Isaac Quiles [facility] Narendra ECG 12-LEAD 2021-02-20 11:33:15 Isaac Quiles spital Narendra ECG ED PRELIMINARY 2021-02-20 11:32:10 Isaac Quiles [facility] INTERPRETATION Narendra PHYSICIAN ORDERS 2021-01-24 05:01:00 Doctor Bryson, [facility] Name Medical [place] CT CERVICAL SPINE WO 2021-01-16 05:11:15 Mumtaz Swanson [facility] CONTRAST Medical Branch CT HEAD WO CONTRAST 2021-01-16 05:11:15 Mumtaz Swanson [facility] Medical [place] NOTICE OF PRIVACY 2021-01-16 04:10:39 Doctor Bryson, [facility] PRACTICES [facility] HEAD WO CONTRAST 2021-01-11 01:54:48 Sushma Juarez [facility] [place] CONSENT/REFUSAL FOR 2021-01-10 23:21:01 Doctor Bryson, [facility] DIAGNOSIS AND TREATMENT [facility] NOTICE OF PRIVACY 2020-12-29 19:06:49 Doctor Unassigned, [facility] PRACTICES [facility] CONSENT/REFUSAL FOR 2020-12-29 19:06:22 Doctor Unassigned, [facility] DIAGNOSIS AND TREATMENT [facility] ASSIGNMENT OF BENEFITS 2020-12-29 19:06:04 Doctor Unassigned, Un [facility] ASSIGNMENT OF BENEFITS 2020-12-29 17:51:14 Doctor Unassigned, [facility] HC COMPLETE BLD COUNT 2020-12-03 10:00:[address] [facility] W/AUTO DIFF BASIC METABOLIC PANEL 2020-12-03 09:00:[address] [facility] ESTIMATED GFR 2020-12-03 09:00:00 [facility] MRI BRAIN WO CONTRAST 2020-12-02 17:48:[address] [facility] BASIC METABOLIC PANEL 2020-12-02 08:52:[address] [facility] ESTIMATED GFR 2020-12-02 08:52:00 [facility] HC COMPLETE BLD COUNT 2020-12-02 08:38:[address] [facility] W/AUTO DIFF US CAROTID DUPLEX 2020-12-01 20:45:00 [facility] BILATERAL TTE COMPLETE, WO 2020-12-01 16:39:21 [facility] CONTRAST, W DOPPLER ([id number]) HC COMPLETE BLD COUNT 2020-12-01 09:30:[address] [facility] W/AUTO DIFF BASIC METABOLIC PANEL 2020-12-01 09:00:[address] [facility] ESTIMATED GFR 2020-12-01 09:00:00 [facility] LIPID PANEL 2020-12-01 02:15:00 [facility] THYROID STIMULATING 2020-12-01 02:15:00 [facility] HORMONE T4, FREE 2020-12-01 02:15:00 [facility] TROPONIN 2020-12-01 02:15:00 [facility] HEMOGLOBIN A1C 2020-12-01 01:15:00 [facility] URINALYSIS, AUTOMATED 2020-11-30 22:23:00 [facility] WITH MICROSCOPY Олег COVID-19 QUALITATIVE 2020-11-30 21:44:00 [facility] RT-PCR [facility] CT HEAD WO CONTRAST 2020-11-30 19:03:25 [facility] CT ANGIOGRAM PE CHEST 2020-11-30 19:03:[address] [facility] ECG ED PRELIMINARY 2020-11-30 17:08:13 [facility] INTERPRETATION [facility] HC COMPLETE BLD COUNT 2020-11-30 16:15:00 [facility] W/AUTO DIFF [facility] PROTHROMBIN TIME WITH INR 2020-11-30 16:15:[address] [facility] PARTIAL THROMBOPLASTIN 2020-11-30 16:15:00 [facility] TIME (PTT) [facility] COMPREHENSIVE METABOLIC 2020-11-30 16:15:00 [facility] TROPONIN 2020-11-30 16:15:00 [facility] B NATRIURETIC PEPTIDE 2020-11-30 16:15:[address] [facility] ESTIMATED GFR 2020-11-30 16:15:00 [facility] D-DIMER 2020-11-30 16:15:00 [facility] ECG 12-LEAD 2020-11-30 15:58:05 [facility] Computed tomography of 2020-09-20 00:00:00 RUSTAM Bruno - chest with contrast Patients [facility] Exploratory laparotomy 2020-09-15 00:00:00 RUSTAM Bruno - [facility] CT of abdomen and pelvis 2020-03-02 00:00:00 RUSTAM Arora - without contrast [facility] EXTERNAL PROVIDER RECORDS 2019-01-27 05:01:00 Doctor Unassigned, [facility] Plan of Care Planned Activity Planned Date Details Comments Source Future Scheduled 2021-08-08 65+ [facility]OCOCCAL [facility] Test 13:10:32 VACCINE (1 of 4 - PCV13) [code = 65+ PNEUMOCOCCAL VACCINE (1 of 4 - PCV13)] Future Scheduled 2021-08-08 SHINGLES [facility]ACCIN[facility] (#1) [facility] 13:10:32 [code = SHINGLES VACCINES (#1)] Future Scheduled 2021-08-08 COVID-19 VACCINE (3 - Me [facility] Test 13:10:32 Booster for Moderna series) [code = COVID-19 VACCINE (3 - Booster for Moderna series)] Encounters Start End Encounter Admission Attending Care Care Encounter Source Date/Time Date/Time Type Type Clinicians Facility Department ID 2021-04-30 Emergency [facility] [id number] [facility]-04-30 Emergency [facility] [id number] Univers 08:16:39 [facility] 2020-09-12 Inpatient [facility] [id number] [facility] 15:27:00 -[id number] [facility] 2021-09-16 2021-09-16 Emergency EM Thomas, HCACL TERRI [id number] [facility] 04:48:00 10:42:00 [facility] 2021-09-16 2021-09-16 Emergency EM Thomas, HCACL HCACL [id number] [facility] 04:48:00 10:42:00 Justice [facility] 2021-09-05 2021-09-05 Emergency EM Thomas, HCACL HCACL [id number] [facility] 15:16:00 17:36:00 Justice [facility] 2021-09-05 2021-09-05 Emergency EM Thomas, HCACL TERRI [id number] [facility] 15:16:00 17:36:00 [facility] 2021-07-08 2021-07-13 [facility] Trav Arias2.84 0.1 [id number] Methodi 16:46:00 12:51:00 Encounter Vadim Bo 95545.1.[address] 3.430.2.7 Hospit a .3.311862 l .8 2021-07-08 2021-07-08 Travel 1.2.840.1 1.2.296.559 [id number] Methodi 00:00:00 00:00:[address] 3.430.2.7 0.2.7.3.698 Ho spita .3.819685 084.8 l .8 2021-07-01 2021-07-01 Emergency Renee, 1.2.840.1 [id number] Methodi 11:41:00 13:43:[address] 3.430.2.7 Hospit a .3.592975 l .8 2021-06-18 2021-06-18 Outpatient 2030_Biopsy [place] [id number] Parks 12:38:00 12:38:00 [facility] 2021-05-03 2021-05-03 Telephone Jessica 1.2.840.1 [id number] [id number] Methodi 00:00:00 00:00:00 Ros Fernandez 45973.1.[address] 3.430.2.7 Hospit a .3.233745 l .8 2021-04-11 2021-04-23 [facility] Fifi, 1.2.840.1 [id number] Methodi 23:25:00 17:41:00 Encounter Vadim Briscoe 42289.1.[address] 3.430.2.7 Hospit a .3.936393 l .8 2021-04-19 2021-04-19 [facility] Bebeto, 1.2.840.1 [id number] Methodi 07:00:00 23:59:00 Encounter Jaclyn 19537.1.1 627 s t 3.430.2.7 Hospit a .3.008706 l .8 2021-03-09 2021-03-09 Emergency Ofelia Celestin 1.2.840.1 [id number] Methodi 18:40:00 21:02:[address] 3.430.2.7 Hospit a .3.616075 l .8 2021-03-09 2021-03-09 Travel 1.2.840.1 1.2.919.546 6435 053871 Methodi 00:00:00 00:00:[address] 3.430.2.7 0.2.7.3.698 Ho spita .3.704697 084.8 l .8 2021-02-20 2021-02-23 [facility] Dusty 1.2.840.1 104 [id number] Methodi 06:07:00 13:24:00 Encounter Vadim Bo 36270.1.[address] 3.430.2.7 Hospit a .3.887829 l .8 2021-02-20 2021-02-20 Travel 1.2.840.1 1.2.184.294 7704 [id number] Methodi 00:00:00 00:00:[address] 3.430.2.7 0.2.7.3.698 Ho spita .3.821995 084.8 l .8 2021-01-30 2021-01-30 Outpatient R HESHAM [facility] [id number] [facility] 14:30:00 14:30:00 WONDIFUL ity o f [facility] 2021-01-24 2021-01-24 Label Cutter [facility] Main [facility] 1.2.8 40.114 [id number] Univers 15:50:12 16:05:12 Visit David Cruz 350.1.13.1 0 ity john Lombardo 4.2.7.2.686 [place] [id number] [address] 2021-01-24 2021-01-24 Outpatient R [facility] [id number] Univers 16:00:00 16:00:00 [id number] ity of [facility] 2021-01-24 2021-01-24 Outpatient R ANTHONY [facility] [id number] Univers 16:00:00 16:00:00 DAVID ity of [facility] 2021-01-24 2021-01-24 Orders Doctor DAVID 1.2.840.114 [id number] Univers 00:00:00 00:00:00 Only Unassigned, GREGORY 350.1.13.[address] [facility] 4.2.7.2.686 Flash as [id number] [facility] 009 Branch 2021-01-15 2021-01-16 Emergency [facility] 1.2.054.326 [id number] Univers 23:22:00 03:17:00 Mumtaz Tineo 350.1.13.10 i ty [place] 4[place]2.7.2.686 [place] [id number] [facility] 084 Branch 2021-01-10 2021-01-10 Emergency Sagar Hloland [facility] 1.2.840.114 [id number] Univers 18:49:00 22:03:00 May Tineo 350.1.13.10 i ty [place] 4.2.7.2.686 [place] [id number] [facility] 084 Branch 2020-12-29 2020-12-29 [facility] 1.2.840.114 [id number] Univers 14:04:19 23:59:00 Encounter Melody Tineo 350.1.13.10 ity of [place] 4.2.7.2.686 [place] [id number] [facility] 807 Branch 2020-12-29 2020-12-29 [facility] 1.2.840.114 [id number] Univers 14:00:00 14:03:00 Encounter Melody Tineo 350.1.13.10 it[place] 4.2.7.2.686 [place] [id number] [facility] 807 Branch 2020-12-29 2020-12-29 [facility] [id number] Univers 14:00:00 14:00:00 MELODY [id number] [facility] 2020-12-29 2020-12-29 [facility] 1.2.840.114 [id number] Univers 12:52:54 13:35:06 Visit Melody [facility] 350.1.13.10 i ty of [place] 4.2.7.2.686 Flash as Professio [id number] Me dical [address] Office [facility] 2020-12-29 2020-12-29 [facility] 1.2.840.114 [id number] 12:52:54 13:35:06 Visit Melody [facility] 350.1.13.10 [place] 4.2.7.2.686 Professio [id number] [address] One 2020-12-29 2020-12-29 Outpatient R [facility] [id number] Univers 13:00:00 13:00:00 MELODY [facility] 2020-12-29 2020-12-29 Orders Doctor DAVID 1.2.840.114 [id number] Univers 00:00:00 00:00:00 Only Unassigned, GREGORY 350.1.13.[address] [facility] 4.2.7.2.686 Flash as [id number] [address] 2020-11-30 2020-12-04 [facility] Elliot Parkinson 1.2.840.1 [id number] Methodi 10:51:00 15:23:00 Encounter Vadim Bo 43584.1.[address] 3.430.2.7 Hospit a .3.113615 l .8 2020-11-30 2020-11-30 Travel 1.2.840.1 1.2.283.964 [id number] [id number] Methodi 00:00:00 00:00:[address] 3.430.2.7 0.2.7.3.698 Ho spita .3.471856 084.8 l .8 2020-09-12 2020-09-28 Discharged 1 SAINI, [facility] [id number] 19:18:00 13:20:00 Inpatient SOUHEIL Patients 99 [facility] 2020-03-02 2020-03-02 Outpatient [facility] [id number] 14:00:00 14:00:00 -[id number] [place] s - Patient [facility] 2020-03-02 2020-03-02 Registered 3 SAINI, [facility] [id number] 13:32:00 13:32:00 Clinic JEANNINE Patients [facility] 2020-02-24 2020-02-24 Outpatient [facility] [id number] 14:00:00 14:00:00 -[id number] [place] - Patient [facility] 2020-02-23 2020-02-23 Outpatient [facility] [id number] 12:00:00 12:00:00 -[id number] [place] - Patient [facility] 2019-01-27 2019-01-27 Orders Doctor DAVID 1.2.840.114 [id number] Univers 00:00:00 00:00:00 Only Unassigned, GREGORY 350.1.13.[address] [facility] 4.2.7.2.686 Flash as [phone] [facility] 009 Branch Results Test Description Test Time Test Comments Results Result [facility] e Comments - CT C-SPINE W/O 2021-09-16 CONT 00:00:00 [facility] 1930 Sex: M Name: JUSTICE HARDY [facility] : 1930 Age/S: 89 / M [address] [place] [address] Unit #: [id number] Loc: [place] [address] Phys: Kezia Tolbert Acct: [id number] Dis Date: Status: PRE ER PHONE #: [phone] Exam Date: 09/16/2021 0538 FAX #: [phone] Reason: FALL OUT OF BED, NECK PAIN EXAMS: CPT CODE: [id number] CT C-SPINE W/O CONT 72061 PROCEDURE INFORMATION: Exam: CT Cervical Spine Without Contrast Exam date and time: 09/16/2021 5:42 AM Age: 89 years old Clinical indication: Other: Fall out of bed, neck pain TECHNIQUE: Imaging protocol: Computed tomography images of the cervical spine without contrast. Radiation optimization: All CT scans at this facility use at least one of these dose optimization techniques: automated exposure control; mA and/or kV adjustment per patient size (includes targeted exams where dose is matched to clinical indication); or iterative reconstruction. COMPARISON: CT HEAD/BRAIN W/O CONT 09/16/2021 5:39 AM FINDINGS: Bones/joints: Osteopenia. There is no acute fracture of the cervical spine. Loss of the normal cervical lordosis is likely positional. Vertebral body heights are grossly maintained. Discs/Spinal canal/Neural foramina: There is marked multilevel disc height loss throughout the cervical spine. Disc osteophyte complexes indent the thecal sac at multiple levels in the cervical spine. Lungs: Lung apices are normal. Vasculature: The vasculature demonstrates diffuse marked atherosclerotic calcification. Soft tissues: Unremarkable. IMPRESSION: 1. No acute fracture of the cervical spine. 2. Marked multilevel cervical spondylosis. at 0601 Reported and signed by: Gerardo Sanchez M.D. CC: Shadi Pritchard MD; Kezia Tolbert Technologist:Maribell Jorge. RT(R)(CT) CTDI: DLP: Trnscb Date/Time: 09/16/2021 (600) [email or web address] Orig Print D/T: S: 09/16/2021 (600) PAGE 1 Signed Report - CT HEAD/BRAIN 2021-09-16 W/O CONT 00:00:00 [facility] : 1930 Sex: M Name: JUSTICE HARDY [facility] : 1930 Age/S: 89 / M [address] [place] [address] Blvd Unit #: [id number] Loc: [place] [address] Phys: Kezia Tolbert APRNNP Acct: [id number] Dis Date: Status: PRE ER PHONE #: [phone] Exam Date: 09/16/2021537 FAX #: [phone] Reason: FALL OUT OF BED, HEAD INJURY EXAMS: CPT CODE: [id number] CT HEAD/BRAIN W/O CONT 13614 PROCEDURE INFORMATION: Exam: CT Head Without Contrast Exam date and time: 09/16/2021 5:39 AM Age: 89 years old Clinical indication: Other: Fall out of bed, head injury TECHNIQUE: Imaging protocol: Computed tomography of the head without contrast. Radiation optimization: All CT scans at this facility use at least one of these dose optimization techniques: automated exposure control; mA and/or kV adjustment per patient size (includes targeted exams where dose is matched to clinical indication); or iterative reconstruction. COMPARISON: CT HEAD/BRAIN W/O CONT 09/05/2021 4:02 PM FINDINGS: Brain: Moderate diffuse cortical atrophy. Mild chronic ischemic deep white matter changes. Dense calcifications within the globus pallidus bilaterally Cerebral ventricles: No ventriculomegaly. Paranasal sinuses: Visualized sinuses are unremarkable. No fluid levels. Mastoid air cells: Visualized mastoid air cells are well aerated. Bones/joints: Unremarkable. No acute fracture. Soft tissues: Unremarkable. IMPRESSION: 1. Moderate diffuse cortical atrophy new para mild chronic ischemic deep white matter changes 2. No evidence of acute intracranial pathology. at 0605 Reported and signed by: Philip Rowland M.D. CC: Shadi Pritchard MD; Kezia Lees APRNNP Tomasz Technologist:Maribell Jorge. RT(R)(CT) CTDI: DLP: Trnscb Date/Time: 09/16/2021 (604) [email or web address] Orig Print D/T: S: 09/16/2021 (604) PAGE 1 Signed Report - XR CHEST 1 V 2021-09-16 00:00:00 [facility] : 1930 Sex: M FAX: Shadi Rosales MD [phone] [place]: St: REG FAX: Kezia Tolbert APR [phone] Name: JUSTICE HARDY [facility] : 1930 Age/S: 89/M [address] [place] [address] Unit #: [id number] Loc: [place] [address] Phys: Kezia Tolbert Acct: [id number] Dis Date: Status: REG ER PHONE #: [phone] Exam Date: 09/16/2021 0601 FAX #: [phone] Reason: FALL OUT OF BED EXAMS: CPT CODE: [id number] XR CHEST 1 V 17260 PROCEDURE INFORMATION: Exam: XR Chest Exam date and time: 09/16/2021 5:58 AM Age: 89 years old Clinical indication: Other: Fall out of bed TECHNIQUE: Imaging protocol: XR of the chest. Views: 1 view. COMPARISON: CT C-SPINE W/O CONT 09/16/2021 5:42 AM FINDINGS: Tubes, catheters and devices: There are sternal wires overlying the mediastinum. Lungs: Lung volumes are maintained. There are no infiltrates. Pleural spaces: Unremarkable. No pleural effusion. No pneumothorax. Heart/Mediastinum: The cardiac silhouette is normal in caliber. The aorta is unremarkable. Vasculature: There is atherosclerosis of the aorta. Bones/joints: Unremarkable. IMPRESSION: No acute findings. at 0628 Reported and signed by: Minor Hills M.D CC: Shadi Pritchard MD; Kezia Tolbert Technologist: RT Yolanda(R) Trnscrd Date/Time/By: 09/16/2021 (627) : By: [email or web address] Orig Print D/T: S: 09/16/2021 (627) PAGE 1 Signed Report - XR PELVIS 07/012021-09-16 VIEWS 00:00:00 [facility] : 1930 Sex: M FAX: Devon PritchardShadi Cardoza MD [phone] [place]: St: REG FAX: Kezia Tolbert APR [phone] Name: [facility]ARDYCORNELIAJUSTICE [facility] : 1930 Age/S: 89/M [address] [place] [address] Unit #: [id number] Loc: [place] [address] Phys: Kzeia Tolbert APRNNP Acct: [id number] Dis Date: Status: REG ER PHONE #: [phone] Exam Date: 09/16/2021 0603 FAX #: [phone] Reason: PELVIC PAIN EXAMS: CPT CODE: [id number] XR PELVIS 1/2 VIEWS 60734 PROCEDURE INFORMATION: Exam: XR Pelvis Exam date and time: 09/16/2021 5:58 AM Age: 89 years old Clinical indication: Other: Pelvic pain TECHNIQUE: Imaging protocol: XR pelvis. Views: 1 or 2 view. COMPARISON: CR XR PELVIS 1/2 VIEWS 09/05/2021 5:06 PM FINDINGS: Bones/joints: There are no fractures or dislocations of the pelvis. The pelvic and obturator rings are intact. The pubic rami are intact. The symphysis pubis and sacroiliac joints are unremarkable. The visualized sacral foramina are unremarkable. The hip joint spaces, proximal femoral regions and acetabular regions are unremarkable. Soft tissues: Unremarkable. Notes: If there is further concern, recommend follow-up radiographs or MRI for complete assessment. IMPRESSION: No acute findings. at 0629 Reported and signed by: Minor Hills M.D CC: Shadi Pritchard MD; Kezia Tolbert Technologist: RT Nyla Guerrero (R) Date/Time/By: 09/16/2021 (628) : By: [email or web address] Orig Print D/T: S: 09/16/2021 (628) PAGE 1 Signed Report - XR T-SPINE 3V 2021-09-16 00:00:00 [facility] : 1930 Sex: M FAX: Shadi Rosales MD [phone] [place]: St: [facility] FAX: Kezia Tolbert APR [phone] Name: JUSTICE HARDY [facility] : 1930 Age/S: 89/M [address] [place] [address] Unit #: [id number] Loc: [place] [address] Phys: Kezia Tolbert APRNNP Acct: [id number] Dis Date: Status: REG ER PHONE #: [phone] Exam Date: 09/16/2021 06 FAX #: [phone] Reason: BACK PAIN EXAMS: CPT CODE: [id number] XR T-SPINE 3V 32872 PROCEDURE INFORMATION: Exam: XR Thoracic Spine Exam date and time: 09/16/2021 6:14 AM Age: 89 years old Clinical indication: Other: Back pain TECHNIQUE: Imaging protocol: XR of the thoracic spine. Views: 3 views. AP Lateral Swimmer's COMPARISON: CR XR CHEST 1V 09/16/2021 5:58 AM FINDINGS: Bones/joints: Mildly limited examination secondary to underpenetration in the upper thoracic spine and cervicothoracic junction. No definite acute fracture is otherwise present. 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 Soft tissues: Normal paraspinal soft tissues. Notes: If there is further concern or neurological abnormalities on clinical exam, recommend CT or MRI of the thoracic spine for complete assessment. IMPRESSION: 1. Mildly limited examination secondary to underpenetration in the upper thoracic spine and cervicothoracic junction. No definite acute fracture is otherwise present. Follow-up CT may be helpful. 2. 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 at 0630 Reported and signed by: Adrián Fang M.D. CC: Shadi Pritchard MD; Kezia Tolbert Technologist: RT Yolanda(Rebecca) Trnscrd Date/Time/By: 09/16/2021 (629) : By: [email or web address] [facility] Print D/T: S: 09/16/2021 (629) PAGE 1 Signed Report - XR PELVIS 07/012021-09-05 VIEWS 00:00:00 [facility] : 1930 Sex: M FAX: Justice Guzman MD [phone] [place]: St: [facility] FAX: Shadi Rosales MD [phone] Name: JUSTICE HARDY [facility] : 1930 Age/S: 89/M [address] [place] [address] Unit #: [id number] Loc: [place] [address] Phys: Justice Guzman MD Acct: [id number] Dis Date: Status: REG ER PHONE #: [phone] Exam Date: 09/05/2021 1714 FAX #: [phone] Reason: fall EXAMS: CPT CODE: [id number] XR PELVIS 1/2 VIEWS 65797 PROCEDURE INFORMATION: Exam: XR Pelvis Exam date and time: 09/05/2021 5:06 PM Age: 89 years old Clinical indication: Screening exam; Fall TECHNIQUE: Imaging protocol: XR pelvis. Views: 1 or 2 view. COMPARISON: No relevant prior studies available. The AP image of the pelvis demonstrates no evidence of acute pelvic fracture. The sacroiliac joints appear symmetric. The pubic symphysis is not abnormally widened. The proximal femurs appear intact and normally located. IMPRESSION: 1. No acute radiographic abnormalities of the bony pelvis are detected. SL: 131 at 1721 Reported and signed by: Serge Reaves M.D. CC: Justice Guzman MD; Shadi Pritchard MD Technologist: RT Luke(R) Trnscrd Date/Time/By: 09/05/2021 (1721) : By: BernardM Orig Print D/T: S: 09/05/2021 (6176) PAGE 1 Signed Report - CT HEAD/BRAIN 2021-09-05 W/O CONT 00:00:00 [facility] : 1930 Sex: M Name: JUSTICE HARDY [facility] : 1930 Age/S: 89 / M [address] [place] [address] Unit #: [id number] Loc: [place], [place] [address] Phys: NancyTierney N APRNN Acct: [id number] Dis Date: Status: REG ER PHONE #: [phone] Exam Date: 09/05/2021 1604 FAX #: [phone] Reason: FALL FROM CHAIR, HEAD PAIN, ON ELIQUIS EXAMS: CPT CODE: [id number] CT HEAD/BRAIN W/O CONT 49605 PROCEDURE INFORMATION: Exam: CT Head Without Contrast Procedures Sagittal and coronal reformatted images were reviewed. INDICATION: Patient Age old Patient Gender Reason For Study Exam date and time: 09/05/2021 4:02 PM Age: 89 years old Clinical indication: Injury or trauma; Fall; Blunt trauma (contusions or hematomas); Additional info: Fall from chair, head pain, on eliquis TECHNIQUE: Imaging protocol: Computed tomography of the head without contrast. Radiation optimization: All CT scans at this facility use at least one of these dose optimization techniques: automated exposure control; mA and/or kV adjustment per patient size (includes targeted exams where dose is matched to clinical indication); or iterative reconstruction. COMPARISON: None. FINDINGS: Brain: There are no abnormal extra-axial fluid collections or masses. There is no midline shift. The davis-white matter differentiation is preserved. There are bilateral periventricular white matter hypodensities. Dense basal ganglia calcifications are noted bilaterally. Cerebral ventricles: There is generalized volume loss. The ventricles and sulci are otherwise normal in size and configuration. Paranasal sinuses: The paranasal sinuses are clear. Mastoid air cells: The mastoid air cells are clear. Orbital cavity: The orbits appear normal. Bones/joints: Unremarkable. No acute fracture. Soft tissues: Unremarkable. IMPRESSION: 1. There is no acute abnormality. 2. There are chronic small vessel disease. at 1623 Reported and signed by: Tom Slater M.D. PAGE 1 Signed Report (CONTINUED) Name: JUSTICE HARDY [facility] : 1930 Age/S: 89 / M [address] [place] [address] Unit #: [id number] Loc: [place] [address] Phys: Tierney Cruz Acct: [id number] Dis Date: Status: REG ER PHONE #: [phone] Exam Date: 09/05/2021 1604 FAX #: [phone] Reason: FALL FROM CHAIR, HEAD PAIN, ON ELIQUIS EXAMS: CPT CODE: [id number] CT HEAD/BRAIN W/O CONT 07723 <Continued> CC: Tierney Cruz Technologist:RT Mariel(R)(CT) CTDI: DLP: Trnscb Date/Time: 09/05/2021 (1622) [email or web address] Orig Print D/T: S: 09/05/2021 (1622) PAGE 2 Signed Report Urine culture 2021-07-11 07:18:43 Test Item Value Reference Range Interpretation Comme nts Urine culture (test code = 0424289) SEE COMMENT Bacteriuria screen negative. [facility] dyvkxos4332-56-98 00:28:29 Test Item Value Reference Range Interpretation Comments POC glucose (test code 140 mg/dL 65-99 H Opera tor Name: Theodore = 38317-4) Ga ID : [id number] able: [facility] Notified conservation policy analyst Interpretation Abnormal (test code = 14936-6) [facility] 12 pshw8399-22-94 21:20:43 Test Item Value Reference Range Interpretation Comments Ventricular rate (test code = 253) Atrial rate (test code = 255) W[place] interval (test code = 266) QRSD interval [...] for LVH, may be normal variant ( Dupuyer product )-Septal infarct , age undetermined-Abnormal ECG- [facility] stress fqgr6852-64-67 11:08:47 Test Item Value Reference Range Interpretation Comments Resting HR (test code = 8798466411) Resting BP (test code 132&63 = 7622054318) Peak MET Achieved (test code = 0468157360) Protocol Name (test Lexiscan code = 0776812210) Time in Exercise 00:01:00 Phase (test code = 3566751915) Max Systolic BP (test code = 9893422348) Max Diastolic BP (test code = 0663070810) Max Heart Rate (test code = 2464789536) Max Predicted Heart Rate (test code = 0825745194) Target HR Formula (220 - Age)*100% (test code = 2695585771) Test Indication (test Screening for CAD code = 3718219034) Arrhy During Ex (test code = 0804312240) ECG Interp Before EX (test code = 3308371262) ECG Interp During Ex (test code = 6108121080) Ex Summary Comment (test code = 7106113318) Overall HR Response to Exercise (test code = 2110611792) Overall BP Response To Exercise (test code = 0705772487) Reason for Protocol Complete Termination (test code = 3350976342) Stress Test -Waveform interpreted in Impression (test code report associated with = 6983112981) image study. No interpretation is provided as part of this Stress ECG report.- [facility] WO SAQNNJXI3105-76-47 01:56:56 No acute intracranial abnormality. CT HEAD [...] and mastoidair cells are clear. Left pseudophakia. [facility], Radiant Results Inft User - [...] cells are clear. Left pseudophakia.IMPRESSIONNo acute intracranial abnormality.[facility] [place] leukocytes automated count (number/volume)2020-09-28 05:25:00 Test Item Value Reference Range Interpretation Comments White Blood Count (test code = 6690-2) 10.37 4.8-10.8 [facility] erythrocytes automated count (number/volume)2020-09-28 05:25:00 Test Item Value Reference Range Interpretation Comments Red Blood Count (test code = 789-8) 3.00 4.3-5.7 [facility] ArlingtonBlood hemoglobin measurement (moles/volume)2020-09-28 05:25:00 Test Item Value Reference Range Interpretation Comments Hemoglobin (test code = 11838-8) 9.1 14.0-18.0 [facility] ArlingtonAutomated blood hematocrit (volume fraction)2020-09-28 05:25:00 Test Item Value Reference Range Interpretation Comments Hematocrit (test code = 4544-3) 26.0 38.2-49.6 [facility] ArlingtonAutomated erythrocyte mean corpuscular gaudph9331-32-35 05:25:00 Test Item Value Reference Range Interpretation Comments Mean Corpuscular Volume (test code = 86.7 81-99 787-2) [facility] ArlingtonAutomated erythrocyte mean corpuscular hemoglobin (mass per erythrocyte)2020-09-28 05:25:00 Test Item Value Reference Range Interpretation Comments Mean Corpuscular Hemoglobin (test code 30.3 28-32 = 785-6) [facility] ArlingtonAutomated erythrocyte mean corpuscular hemoglobin concentration measurement (mass/volume)2020-09-28 05:25:00 Test Item Value Reference Range Interpretation Comments Mean Corpuscular Hemoglobin Concent 35.0 31-35 (test code = 786-4) [facility] ArlingtonRDW WxgWr-Xkf0999-68-01 05:25:00 Test Item Value Reference Range Interpretation Comments Red Cell Distribution Width (test code 16.1 11.7-14.4 = 48357-9) [facility] ArlingtonAutomated blood platelet count (count/volume)2020-09-28 05:25:00 Test Item Value Reference Range Interpretation Comments Platelet Count (test code = 777-3) 253 140-360 [facility] ArlingtonAutomated blood segmented neutrophil count as percentage of total jlamomxpbr4144-73-82 05:25:00 Test Item Value Reference Range Interpretation Comments Neutrophils (%) (Auto) (test code = 77.9 38.7-80.0 48609-6) [facility] ArlingtonAutomated blood lymphocyte count as percentage ot total fnrtgaftgj2075-72-10 05:25:00 Test Item Value Reference Range Interpretation Comments Lymphocytes (%) (Auto) (test code = 12.3 18.0-39.1 736-9) [facility] ArlingtonAutomated blood monocyte count as percentage of total riamcpcchx5506-80-27 05:25:00 Test Item Value Reference Range Interpretation Comments Monocytes (%) (Auto) (test code = 6.4 4.4-11.3 5905-5) [facility] ArlingtonAutomated blood eosinophil count as percentage of total ftyweikqot2526-74-88 05:25:00 Test Item Value Reference Range Interpretation Comments Eosinophils (%) (Auto) (test code = 1.8 0.0-6.0 713-8) [facility] ArlingtonAutomated blood basophil count as percentage of total bolgpfqhcv4219-53-63 05:25:00 Test Item Value Reference Range Interpretation Comments Basophils (%) (Auto) (test code = 0.4 0.0-1.0 706-2) [facility] ArlingtonFluoroscopic procedure less than one hour njhpzpuh1320-76-21 05:25:00 Test Item Value Reference Range Interpretation Comments IM GRANULOCYTES % (test code = IM 1.2 0.0-1.0 GRANULOCYTES %) [facility] ArlingtonAutomated blood neutrophil count 2020-09-28 05:25:00 Test Item Value Reference Range Interpretation Comments Neutrophils # (Auto) (test code = 8.1 2.1-6.9 751-8) [facility] ArlingtonBlood lymphocytes count (number/volume) 2020-09-28 05:25:00 Test Item Value Reference Range Interpretation Comments Lymphocytes # (Auto) (test code = 1.3 1.0-3.2 27088-9) [facility] ArlingtonBlood monocytes automated count (number/volume)2020-09-28 05:25:00 Test Item Value Reference Range Interpretation Comments Monocytes # (Auto) (test code = 742-7) 0.7 0.2-0.8 [facility] ArlingtonAutomated blood eosinophil count 2020-09-28 05:25:00 Test Item Value Reference Range Interpretation Comments Eosinophils # (Auto) (test code = 0.2 0.0-0.4 711-2) [facility] ArlingtonAutomated blood basophil count (count/volume)2020-09-28 05:25:00 Test Item Value Reference Range Interpretation Comments Basophils # (Auto) (test code = 704-7) 0.0 0.0-0.1 [facility] ArlingtonFluoroscopic procedure less than one hour jccslskx4525-58-06 05:25:00 Test Item Value Reference Range Interpretation Comments Absolute Immature Granulocyte (auto 0.12 0-0.1 (test code = Absolute Immature Granulocyte (auto) [facility] sodium measurement (moles/volume)2020-09-28 05:25:00 Test Item Value Reference Range Interpretation Comments Sodium Level (test code = 2951-2) 132 136-145 [facility] Hospitaler[facility] or plasma potassium measurement (moles/volume)2020-09-28 05:25:00 Test Item Value Reference Range Interpretation Comments Potassium Level (test code = 2823-3) 3.3 3.5-5.1 [facility] Hospitaler[facility] or plasma chloride measurement (moles/volume)2020-09-28 05:25:00 Test Item Value Reference Range Interpretation Comments Chloride Level (test code = 2075-0) 106 98-107 [facility] Hospitalerum or plasma carbon dioxide, total measurement (moles/volume)2020-09-28 05:25:00 Test Item Value Reference Range Interpretation Comments Carbon Dioxide Level (test code = -29 8-9) [facility] Hospitaler[facility] or plasma anion gap8282-59-27 05:25:00 Test Item Value Reference Range Interpretation Comments Anion Gap (test code = 13492-3) 9.3 8-16 [facility]er[facility] or plasma urea nitrogen measurement (mass/volume)2020-09-28 05:25:00 Test Item Value Reference Range Interpretation Comments Blood Urea Nitrogen (test code = 18 7- 3094-0) [facility] plasma creatinine measurement (mass/volume)2020-09-28 05:25:00 Test Item Value Reference Range Interpretation Comments Creatinine (test code = 2160-0) 0.83 0.72-1.25 [facility] Hospitaler[facility] or plasma urea nitrogen/creatinine mass yswww6765-33-40 05:25:00 Test Item Value Reference Range Interpretation Comments BUN/Creatinine Ratio (test code = 6 3097-3) [facility] ArlingtonEstimated glomerular filtration rate (GFR) jasrfboxeosbo5269-80-42 05:25:00 Test Item Value Reference Range Interpretation Comments Estimat Glomerular > 60 See_Comment [Automat ed message] The Filtration Rate (test system which generated code = 506854356) this resul t transmitted reference range : 60-. The reference r duane was not used to int erpret this result as normal/abnormal . [facility] ArlingtonGlucose rjqpbkdnjku3668-93-69 05:25:00 Test Item Value Reference Range Interpretation Comments Glucose Level (test code = SAM4414) 104 74-118 [facility] Hospitaler[facility] or plasma calcium measurement (mass/volume)2020-09-28 05:25:00 Test Item Value Reference Range Interpretation Comments Calcium Level (test code = 40188-4) 7.4 8.4-10.2 [facility] Hospitaler[facility] or plasma total bilirubin measurement (mass/volume)2020-09-28 05:25:00 Test Item Value Reference Range Interpretation Comments Total Bilirubin (test code = 1975-2) 0.7 0.2-1.2 [facility] ArlingtonFluoroscopic procedure less than one hour lmwzhlah0698-23-95 05:25:00 Test Item Value Reference Range Interpretation Comments Aspartate Amino Transf (AST/SGOT) (test 74 5-34 code = Aspartate Amino Transf (AST/SGOT)) [facility] Hospitaler[facility] or plasma alanine aminotransferase measurement (enzymatic activity/volume)2020-09-28 05:25:00 Test Item Value Reference Range Interpretation Comments Alanine Aminotransferase (ALT/SGPT) 107 0-55 (test code = 1742-6) [facility] Hospitalerum or plasma protein measurement (mass/volume)2020-09-28 05:25:00 Test Item Value Reference Range Interpretation Comments Total Protein (test code = 2885-2) 4.2 6.5-8.1 [facility] Hospitaler[facility] or plasma albumin measurement (mass/volume)2020-09-28 05:25:00 Test Item Value Reference Range Interpretation Comments Albumin (test code = 1751-7) 1.9 3.5-5.0 [facility] ArlingtonPlasma globulin measurement (mass/volume) 2020-09-28 05:25:00 Test Item Value Reference Range Interpretation Comments Globulin (test code = 53933-2) 2.3 2.3-3.5 [facility] Hospitaler[facility] or plasma albumin/globulin mass qehbd5617-48-71 05:25:00 Test Item Value Reference Range Interpretation Comments Albumin/Globulin Ratio (test code = 0.8 0.8-2.0 1759-0) [facility] Hospitaler[facility] or plasma alkaline phosphatase measurement (enzymatic activity/volume)2020-09-28 05:25:00 Test Item Value Reference Range Interpretation Comments Alkaline Phosphatase (test code = 100 40-150 6768-6) [facility] ArlingtonTroponin I measurement by highly sensitive enzyme etphbhsjjii6934-66-17 05:25:00 Test Item Value Reference Range Interpretation Comments Troponin I (test code = 96936-3) 0.109 0-0.300 [facility] ArlingtonCHEST SINGLE (PORTABLE)2020-09-26 10:41:00[facility] : 1930 Sex: M [place] [address] Patient Name: JUSTICE HARDY MR #: [id number] : 1930 Age/Sex: 89/M Req #: [id number] Adm Physician: ZACHARIAH SAINI MD Ordered by: ARASH CASTORENA MD Report #: [id number] Location: MED/SURG Room/Bed: Critical access hospital Procedure: [id number] DX/CHEST SINGLE (PORTABLE) Exam Date: 09/26/20 Exam [...] GUERRA MD 104 Transcribed By: AYDEN on 09/26/201047 COPY TO: BRANDEN CASTORENAIvory Randall MDABDOMEN 2 VIEW 2020-09-26 09:13:00 [facility] : 1930 Sex: M [place] [address] Patient Name: JUSTICE HARDY MR #: [id number] : 1930 Age/Sex: 89/M Req #: [id number] Adm Physician: ZACHARIAH SAINI MD Ordered by: JEANNINE SAINI MD Report #: [id number] Location: MED/SURG Room/Bed: Critical access hospital Procedure: [id number] DX/ABDOMEN 2 VIEW Exam Date: 09/26/20 Exam [...] Natriuretic Peptide (test code = 50.2 0-100 49464-4) [facility] amylase measurement (enzymatic activity/volume)2020-09-26 05:17:00 Test Item Value Reference Range Interpretation Comments Amylase Level (test code = 1798-8) 98 25-125 [facility] Hospitaler[facility] or plasma lipase measurement (enzymatic activity/volume)2020-09-26 05:17:00 Test Item Value Reference Range Interpretation Comments Lipase (test code = 3040-3) 98 8-78 [facility] ArlingtonABDOMEN 2 HYVC0908-90-75 23:59:00 [facility] : 1930 Sex: M [facility] [address] [place] [address] Patient Name: JUSTICE HARDY MR #: [id number] : 1930 Age/Sex: 89/M Req #: [id number] [facility] Physician: ZACHARIAH SAINI MD Ordered by: JEANNINE SAINI MD Report #: [id number] Location: MED/SURG Room/Bed: Critical access hospital Procedure: [id number] DX/ABDOMEN 2 VIEW Exam Date: 09/24/20 Exam [...] levels are seen in the right hemiabdomen. [place] lucency in the upper abdomen on the upright view projecting over the T12 vertebral body , likely represents pneumoperitoneum IMPRESSION: 1. Overall appearance of postsurgical ileus with diffuse mildly dilated small bowel and distended air distended colon to the level of the rectum. Distal obstruction is not excluded. Recommend radiographic follow-up until resolution. 2. [place] lucency projecting over the T12 vertebral body may represent pneumoperitoneum as seen on recent chest CT, possibly related to recent surgery. Signed by: Patricia Wheat MD on 09/25/2020 12:48 AM Dictated By: TIESHA WHEAT MD Transcribed By: AYDEN on 09/25/2047 COPY TO: JEANNINE SAINIerum or plasma magnesium measurement (mass/volume)2020-09-23 16:40:00 Test Item Value Reference Range Interpretation Comments Magnesium Level (test code = 47428-2) 1.5 1.3-2.1 [facility] ArlingtonFluoroscopic procedure less than one hour qlbuajpn4966-86-14 08:51:00 Test Item Value Reference Range Interpretation Comments Differential Total Cells Counted (test 100 code = Differential Total Cells Counted) [facility] neutrophils/100 leukocytes 2020-09-22 08:51:00 Test Item Value Reference Range Interpretation Comments Neutrophils % (Manual) (test code = 86 40-74 02391-6) [facility] blood band neutrophils form/100 tptdsfhola0555-00-41 08:51:00 Test Item Value Reference Range Interpretation Comments Band Neutrophils % (test code = 764-1) 0 [facility] blood lymphocytes/100 leukocytes 2020-09-22 08:51:00 Test Item Value Reference Range Interpretation Comments Lymphocytes % (Manual) (test code = 7 19-48 737-7) [facility] blood monocytes/100 leukocytes 2020-09-22 08:51:00 Test Item Value Reference Range Interpretation Comments Monocytes % (Manual) (test code = 7 3.4-9.0 744-3) [facility] ArlingtonAutomated reticulocyte count as percentage of total sqyqfxzgqoyu1162-45-03 05:15:00 Test Item Value Reference Range Interpretation Comments Percent Reticulocyte Count (test code = 1.5 0.8-2.2 69738-4) [facility] iron measurement (mass/volume)2020-09-21 05:15:00 Test Item Value Reference Range Interpretation Comments Iron Level (test code = 2498-4) 26 65-175 [facility]er[facility] or plasma iron binding capacity measurement (mass/volume)2020-09-21 05:15:00 Test Item Value Reference Range Interpretation Comments Total Iron Binding Capacity (test code 193 261-129 = 2500-7) [facility]er[facility] plasma iron saturation measurement (mass fraction)2020-09-21 05:15:00 Test Item Value Reference Range Interpretation Comments Percent Iron Saturation (test code = 13 15-50 2502-3) [facility] or plasma transferrin measurement (mass/volume)2020-09-21 05:15:00 Test Item Value Reference Range Interpretation Comments Transferrin (test code = 3034-6) 138 870-364 [facility] ArlingtonBlood cobalamin (vitamin B12) measurement (mass/volume)2020-09-21 05:15:00 Test Item Value Reference Range Interpretation Comments Vitamin B12 Level (test code = 58756-4) 591 213816 [facility] plasma folate measurement (mass/volume)2020-09-21 05:15:00 Test Item Value Reference Range Interpretation Comments Folate (test code = 2284-8) 17.8 >3.0 [facility] ArlingtonCT CHEST X8497-12-24 21:42:00 [facility] 1930 Sex: [place] [address] Patient Name: JUSTICE HARDY MR #: [id number] : 1930 Age/Sex: 89/M Req #: [id number] Adm Physician: ZACHARIAH SAINI MD Ordered by: AJ FLYNN DO Report #: [id number] Location: MED/SURG Room/Bed: Critical access hospital Procedure: [id number] CT/CT CHEST W Exam Date: 09/20/20 Exam Time: 2114 REPORT STATUS: Signed EXAM: CT Chest WITH contrast 09/20/2020 9:15 PM INDICATION: PE [id number] 2114 COMPARISON: None TECHNIQUE: Chest was scanned [...] 09/20/202199 COPY TO: AJ FLYNN DO Phosphorus whlpjygowou9716-04-98 03:45:00 Test Item Value Reference Range Interpretation Comments Phosphorus Level (test code = CXB2191) 0.8 2.3-4.7 [facility] ArlingtonCHES SINGLE (PORTABLE)2020-09-17 15:26:00[facility] : 1930 Sex: M [place] [address] Patient Name: JUSTICE HARDY MR #: [id number] : 1930 Age/Sex: 89/M Req #: [id number] Adm Physician: ZACHARIAH SAINI MD Ordered by: ZACHARIAH SAINI MD Report #: [id number] Location: ICU Room/Bed: [place] [address] Procedure: [id number] DX/CHEST SINGLE (PORTABLE) Exam Date: 09/17/20 Exam [...] (PT) in platelet poor plasma by coagulation crjis9023-11-60 10:55:00 Test Item Value Reference Range Interpretation Comments Prothrombin Time (test code = 5902-2) 16.5 11.9-14.5 [facility] ArlingtonINR in Platelet poor plasma by Coagulation dllha0444-38-30 10:55:00 Test Item Value Reference Range Interpretation Comments Prothromb Time International Ratio 1.25 (test code = 6301-6) [facility] [facility] [id number] 20:57:00[facility] : 1930 Sex: M [facility] [address] [place] [address] Patient Name: JUSTICE HARDY MR #: [id number] : 1930 Age/Sex: 89/M Req #: [id number] Adm Physician: ZACHARIAH SAINI MD Ordered by: ZACHARIAH SAINI MD Report #: [id number] Location: ICU Room/Bed: [place] [address] Procedure: [id number] DX/CHEST XRAY LINE PLACEMENT Exam Date: 09/16/20 [...] likely within gastric lumen, sidehole port at junciton. Infrahilar haziness, atelectasis or pneumonia/aspiration. Signed by: Eugenio Ye DO on 09/16/2020 9:02 PM Dictated By: EUGENIO YE DO 01 Transcribed By: AYDEN on 09/16/202101 COPY TO: ZACHARIAH SAINI [facility] SINGLE (PORTABLE)2020-09-15 14:55:00 [facility] : 1930 Sex: [place] [address] Patient Name: JUSTICE HARDY MR #: [id number] : 1930 Age/Sex: 89/M Req #: [id number] Adm Physician: ZACHARIAH SAINI MD Ordered by: DHARMESH LINARES MD Report #: [id number] Lo cation: MED/SURG Room/Bed: [facility] [place][note 2] Procedure: [id number] DX/CHEST SINGLE (PORTABLE) Exam Date: 09/15/20 Exam [...] MDABDOMEN ACUTE SERIES W/PA CXR 2020-09-15 10:17:00 [facility] : 1930 Sex: M [place] [address] Patient Name: JUSTICE HARDY MR #: [id number] : 1930 Age/Sex: 89/M Req #: [id number] Adm Physician: ZACHARIAH SAINI MD Ordered by: DHARMESH LINARES MD Report #: [id number] Lo cation: MED/SURG Room/Bed: [facility] [place][note 2] Procedure: [id number] DX/ABDOMEN ACUTE SERIES W/PA CXR Exam Date: [...] COPY TO: DHARMESH LINARES MDABDOMEN ACUTE SERIES W/TENZIN [id number] 10:50:00 [facility] : 1930 Sex: [place] [address] Patient Name: JUSTICE HARDY MR #: [id number] : 1930 Age/Sex: 89/M Req #: [id number] Adm Physician: ZACHARIAH SAINI MD Ordered by: DHARMESH LINARES MD Report #: [id number] Lo cation: MED/SURG Room/Bed: [facility] [place][note 2] Procedure: [id number] DX/ABDOMEN ACUTE SERIES W/TENZIN CXR Exam Date: 09/14/20 Exam Time: 1020 REPORT STATUS: Signed X-ray abdomen acute series with 2 views of the abdomen and a single view of the chest INDICATION: sbo [id number] Comparison: X-ray dated 09/14/2019. Discussion: Lungs [...] Kinase (test code = 2157-6) 385 30-200 [facility] creatine kinase MB measurement (mass/volume)2020-09-13 11:24:00 Test Item Value Reference Range Interpretation Comments Creatine Kinase MB (test code = 2.90 0-5.0 37481-6) [facility] 2 [id number] 09:26:00 [facility] 1930 Sex: [place] [address] Patient Name: JUSTICE HARDY MR #: [id number] : 1930 Age/Sex: 89/M Req #: [id number] Adm Physician: ZACHARIAH SAINI MD Ordered by: SHANNAN CERVANTES MD Report #: [id number] Location: MED/SURG Room/Bed: [facility] [place][note 2] Procedure: [id number] DX/ABDOMEN 2 VIEW Exam Date: 09/13/20 Exam [...] code = Lactic 0.7 0.5-2.0 Acid Level) [facility] ArlingtonFluoroscopic procedure less than one hour [id number] 19:02:00 Test Item Value Reference Range Interpretation Comments Coronavirus (PCR) (test code = NOT DETECTED NOTDETECTED Coronavirus (PCR)) [facility] ArlingtonCT ABD/PEL WO [id number] 17:30:00[facility] : 1930 Sex: M [facility] [address] [place] [address] Patient Name: JUSTICE HARDY MR #: [id number] : 1930 Age/Sex: 89/M Req #: [id number] Adm Physician: Ordered by: SHANNAN CERVANTES MD Report #: [id number] Location: [facility] Room/Bed: Procedure: [id number] HOPD/CT ABD/PEL WO CONTRAST-HOPD Exam Date: 09/12/20 Exam Time: 1657 REPORT STATUS: Signed EXAM: CT Abdomen and Pelvis WITHOUT contrast INDICATION: abd pain, nausea, retching [id number] COMPARISON: CT abdomen and pelvis on [...] 09/12/201744 COPY TO: SHANNAN CERVANTES MDCT ABDOMEN/PELVIS [id number] 15:20:00 [facility] [address] [place] [address] Patient Name: JUSTICE HARDY MR #: [id number] : 1930 Age/Sex: 89/M Req #: [id number] Adm Physician: Mario boyd by: JEANNINE SAINI MD Report #: [id number] Location: CT Room/Bed: Procedure: [id number] CT/CT ABDOMEN/PELVISWO Exam Date: 03/02/20 Exam Time: [...]
--- NOTE | 2021-09-30 15:33 | RAD REPORT ---
EXAM DESCRIPTION: US - Extremity Venous Uni Ltd - 09/30/2021 3:20 pm CLINICAL HISTORY: known dvt, states worse swelling;Swelling Leg swelling and edema. COMPARISON: No comparisons FINDINGS: Right lower extremity venous system was interrogated with Doppler technique. Normal flow, compressibility and augmentation was noted. There is no DVT present. IMPRESSION: No evidence of right lower extremity deep venous thrombosis.
[2021-09-30] MEDS ORDERED: MORPHINE 2 MG/ML SYR ONE (15:37)
[2021-09-30] MEDS ORDERED: ONDANSETRON 4 MG/2 ML VIAL ONE (15:38)
--- NOTE | 2021-09-30 15:50 | RAD REPORT ---
EXAM DESCRIPTION: RAD - Chest Single View - 09/30/2021 3:38 pm CLINICAL HISTORY: COUGH Chest pain. COMPARISON: Chest Single View dated 08/28/2021; Chest Single View dated 06/28/2021; Chest Single View dated 04/30/2021; Chest Single View dated 04/27/2021 FINDINGS: Portable technique limits examination quality. Moderate bilateral pulmonary opacities are present which may represent pulmonary edema or pneumonia. The heart is moderately enlarged. Prior CABG changes are noted.
--- NOTE | 2021-09-30 16:07 | RAD REPORT ---
EXAM DESCRIPTION: CT - Soft Tissue Neck Wo Contr CLINICAL HISTORY: dysphagia Neck pain COMPARISON: Head C Spine Mpr Wo Con dated 07/27/2021; Head C Spine Mpr Wo Con dated 07/16/[address] scans are performed using dose optimization technique as appropriate and may includ e automated exposure control or mA/KV adjustment according to patient size. FINDINGS: A significantly limited noncontrast study was performed and submitted. No intrinsic or extrinsic neck mass is identified. No bulky neck adenopathy present. Pharyngeal and l aryngeal structures appear within normal range. A few small right-sided tonsilliths are present. Reardon tid atherosclerosis is noted. Normal sized thyroid. Moderate multilevel cervical degenerative changes. IMPRESSION: Limited noncontrast examination without acute process identified.
--- NOTE | 2021-09-30 16:09 | RAD REPORT ---
EXAM DESCRIPTION: CT - Abdomen Pelvis Wo Contrast - 09/30/2021 3:56 pm CLINICAL HISTORY: Abdominal pain. ABD PAIN COMPARISON: Abdomen Pelvis W Contrast dated 10/26/2020 TECHNIQUE: CT imaging of the abdomen and pelvis was performed without contrast. Solid organ, bowel a nd vascular assessment is limited due to lack of IV and oral contrast. All CT scans are performed using dose optimization technique as appropriate and may include automated exposure control or mA/KV adjustment according to patient size. FINDINGS: The lower lung avelar are clear.Small hiatal hernia The liver, spleen, pancreas, adrenal glands are within normal limits for a limited non-contrast exami nation.Bilateral renal cysts are present, the largest on the right measuring 6.6 cm containing thin r im calcification. Moderate fat containing umbilical hernia is present. Small bilateral fat containing inguinal hernias. IVC filter is noted. Cholecystectomy. No bowel obstruction, free air, free fluid or abscess. Moderate stool is present throughout the colon . In particular, large amount of stool is noted in the rectum. Nonvisualized appendix. Mild multilevel lumbar degenerative changes. IMPRESSION: There is significant stool retained throughout the colon, greatest in the rectum. Moderate fat containing umbilical hernia. A limited non-contrast examination was performed as detailed.
--- NOTE | 2021-09-30 16:45 | ER ---
Nurse's Notes [facility] Name: Benito Castaneda Age: 89 yrs Sex: Male : 1930 Arrival Date: 09/30/2021 Time: 14:01 Bed 6 Private MD: Diagnosis: Unspecified combined systolic (congestive) and diastolic (congestive) heart failure;Acute pulmonary edema;Dyspnea, unspecified;Dysphagia, unspecified Presentation: 09/30 14:01 Chief complaint: Patient states: cough, sore throat and phlegm x 3-4 days. EMS reports ss patient recently completed antibiotics, but he does not feel better. Also c/o abd pain x 2 days and R leg swelling that began yesterday. Coronavirus screen: Client denies travel out of the [place] in the last 14 days. Ebola Screen: Patient denies exposure to infectious person. Patient denies travel to an Ebola-affected area in the 21 days before illness onset. Initial Sepsis Screen: Does the patient meet any 2 criteria? No. Patient's initial sepsis screen is negative. Does the patient have a suspected source of infection? No. Patient's initial sepsis screen is negative. Risk Assessment: Do you want to hurt yourself or someone else? Patient reports no desire to harm self or others. Onset of symptoms is unknown. 14:01 Method Of Arrival: EMS: [facility] 14:01 Acuity: ANT 3 ss Triage Assessment: 16:54 General: Appears in no apparent distress. Behavior is calm, appropriate for age. Pain: dunn Complains of pain in abdomen. Respiratory: Reports cough that is. GI: Reports cramping. Historical: - Allergies: 14:06 Cardura; ss 14:06 doxazosin; ss 14:06 Iodine; (fine with benadryl); ss 14:06 Lipitor; ss 14:06 SULFUR, ELEMENTAL; ss - Home Meds: 16:55 clonidine HCl 0.1 mg Oral tab 1 tab 2 times per day [Active]; Eliquis 2.5 mg Oral tab 1 dunn tab 2 times per day [Active]; finasteride 5 mg Oral tab 1 tab once daily [Active]; Flomax 0.4 mg Oral cap 1 cap once daily [Active]; lisinopril 5 mg Oral tab 1 tab twice a day [Active]; omeprazole 40 mg Oral cpDR 1 cap once daily [Active]; - PMHx: 14:06 aortic valve replacement; cardiac stents; CVA; Diverticulitis; Myocardial infarction; ss Hypertension; dvt in right leg; Prostate Cancer; - PSHx: 14:06 Coronary artery bypass graft; Coronary Angioplasty; Cholecystectomy; bowel resection; ss Appendectomy; Tonsillectomy; Valve replacement; - Immunization history:: Client reports receiving the 2nd dose of the Covid vaccine. - Social history:: Smoking status: Patient denies any tobacco usage or history of. - Family history:: not pertinent. - Hospitalizations: : No recent hospitalization is reported. Screenin:54 Abuse screen: Denies threats or abuse. Denies injuries from another. Nutritional dunn screening: No deficits noted. Tuberculosis screening: No symptoms or risk factors identified. Fall Risk None identified. Assessment: 16:55 GI: Bowel sounds present X 4 quads. Abd is soft Abd is non tender. dunn Vital Signs: 14:01 BP 134 / 90; Pulse 79; Resp 16; Temp 98.4(TE); Pulse Ox 98% on R/A; Weight 54.43 kg; Height 5 ft. 4 in. (162.56 cm); Pain 5/10; 16:22 BP 111 / 49; Pulse 68; Resp 16; Pulse Ox 98% on R/A; dunn 16:53 BP 139 / 70; Pulse 80; Resp 17; Pulse Ox 100% on R/A; dunn 18:44 BP 141 / 76; Pulse 61; Resp 17; Pulse Ox 98% on R/A; dunn 14:01 Body Mass Index 20.60 (54.43 kg, 162.56 cm) ED Course: 14:01 Patient arrived in ED. ss 14:02 Lynn Luke FNP-C is PHCP. kb 14:02 Andrade Moore MD is Attending Physician. kb 14:06 Triage completed. ss 14:06 Arm band placed on right wrist. ss 14:07 Kaye Villareal, BERYL is Primary Nurse. dunn 14:32 CBC with Diff Sent. dunn 14:32 Ptt, Activated Sent. dunn 14:32 Protime (+inr) Sent. dunn 14:32 Basic Metabolic Panel Sent. dunn 14:32 Procalcitonin Sent. dunn 14:33 Inserted saline lock: 20 gauge in left forearm, using aseptic technique. bp 15:22 Extremity Venous Uni Ltd US In Process Unspecified. EDMS 15:40 XRAY Chest (1 view) In Process Unspecified. EDMS 15:58 CT Abd/Pelvis - Without Contrast In Process Unspecified. EDMS 15:58 Soft Tissue Neck Wo Contr In Process Unspecified. EDMS 16:44 Javier Alvarenga MD is Hospitalizing Provider. rn 16:53 LAB Add On Sent. dunn 16:54 Patient has correct armband on for positive identification. Bed in low position. dunn 16:54 No provider procedures requiring assistance completed. dunn Administered Medications: 15:38 Drug: Zofran (Ondansetron) 4 mg Route: IVP; Site: left forearm; dunn 15:39 Follow up: Response: No adverse reaction dunn 15:39 Drug: morphine 2 mg Route: IVP; Site: left forearm; dunn 15:39 Follow up: Response: No adverse reaction dunn 16:52 Drug: Lasix (furosemide) 40 mg Route: IVP; Site: left forearm; dunn 16:52 Follow up: Response: No adverse reaction dunn Outcome: 16:45 Decision to Hospitalize by Provider. rn 20:26 Patient left the ED. tw5 Signatures: Dispatcher [employer] EDMS Lynn Luke, ADOPTION COORDINATOR-C ADOPTION COORDINATOR-Ckb Andrade Moore MD MD rn Smirch, Shelby, RN RN ss Peltier, Brian, RN RN bp Wood, Tiffany tw5 Au-StagerKaye RN RN dunn
--- NOTE | 2021-09-30 16:46 | EDPHYS ---
Physician Documentation [facility] Name: Benito Castaneda Age: 89 yrs Sex: Male : 1930 Arrival Date: 09/30/2021 Time: 14:01 Bed 6 Private MD: ED Physician Andrade Moore HPI: 09/30 15:32 This 89 yrs old Male presents to ER via EMS with complaints of Cough, rn Abdominal Pain, Leg Swelling. 15:32 The patient or guardian reports cough, described as mild, with productive sputum. rn Onset: The symptoms/episode began/occurred 4 day(s) ago. Severity of symptoms: At their worst the symptoms were mild, in the emergency department the symptoms are unchanged. Modifying factors: The symptoms are alleviated by nothing, the symptoms are aggravated by nothing. Associated signs and symptoms: Pertinent positives: rhinorrhea, sore throat, Pertinent negatives: chest pain, ear ache. It is unknown whether or not the patient has had similar symptoms in the past. The patient has been recently seen by a physician:. Pt reports a few days of feeling sick, + cough and "phlegm", abd cramping, nausea and vomiting. Also noticed increased swelling of RLE, states has known DVT, takes eliquis, but noticed increased swelling of RLE, denies trauma. Reports stomach "feels uneasy". Normal bowel movements and urinary output. Recently put on abx for URI and not getting better. Reports difficulty swallowing solids, but able to swallow liquids in small amounts. Has had difficulty with swallowing in past, daughter states told might need a balloon to fix it but never had it done. . Historical: - Allergies: 14:06 Cardura; ss 14:06 doxazosin; ss 14:06 Iodine; (fine with benadryl); ss 14:06 Lipitor; ss 14:06 SULFUR, ELEMENTAL; ss - Home Meds: 16:55 clonidine HCl 0.1 mg Oral tab 1 tab 2 times per day [Active]; Eliquis 2.5 mg Oral tab 1 dunn tab 2 times per day [Active]; finasteride 5 mg Oral tab 1 tab once daily [Active]; Flomax 0.4 mg Oral cap 1 cap once daily [Active]; lisinopril 5 mg Oral tab 1 tab twice a day [Active]; omeprazole 40 mg Oral cpDR 1 cap once daily [Active]; - PMHx: 14:06 aortic valve replacement; cardiac stents; CVA; Diverticulitis; Myocardial infarction; ss Hypertension; dvt in right leg; Prostate Cancer; - PSHx: 14:06 Coronary artery bypass graft; Coronary Angioplasty; Cholecystectomy; bowel resection; ss Appendectomy; Tonsillectomy; Valve replacement; - Immunization history:: Client reports receiving the 2nd dose of the Covid vaccine. - Social history:: Smoking status: Patient denies any tobacco usage or history of. - Family history:: not pertinent. - Hospitalizations: : No recent hospitalization is reported. ROS: 15:32 Constitutional: Negative for fever, chills, and weight loss, Eyes: Negative for injury, rn pain, redness, and discharge, ENT: + congestion and dysphagia Neck: Negative for injury, pain, and swelling, Cardiovascular: Negative for chest pain, palpitations, and edema, Respiratory: Negative for shortness of breath, cough, wheezing, and pleuritic chest pain, Abdomen/GI: + abd cramping and nausea/vomiting Back: Negative for injury and pain, : Negative for injury, bleeding, discharge, and swelling, MS/Extremity: + increased swelling to RLE Skin: Negative for injury, rash, and discoloration, Neuro: Negative for headache, weakness, numbness, tingling, and seizure. Exam: 15:32 Constitutional: This is a well developed, well nourished patient who is awake, alert, rn and in no acute distress. Head/Face: Normocephalic, atraumatic. Eyes: Periorbital areas with no swelling, redness, or edema. ENT: MMM, no stridor Neck: Trachea midline, no masses palpated, and no cervical lymphadenopathy. Supple, full range of motion without nuchal rigidity, or vertebral point tenderness. No Meningismus. Cardiovascular: Regular rate and rhythm. No pulse deficits. Respiratory: No increased work of breathing, no retractions or nasal flaring. Abdomen/GI: soft, mild lower abd tenderness, no rebound or masses Skin: Warm, dry MS/ Extremity: Pulses equal, no cyanosis. RLE greater circumference than LLE, no skin changes or cyanosis Neuro: Awake and alert, GCS 15, oriented to person, place, time, and situation. Cranial nerves II-XII grossly intact. Motor strength 5/5 in all extremities. Sensory grossly intact. Cerebellar exam normal. Normal gait. Vital Signs: 14:01 BP 134 / 90; Pulse 79; Resp 16; Temp 98.4(TE); Pulse Ox 98% on R/A; Weight 54.43 kg; ss Height 5 ft. 4 in. (162.56 cm); Pain 5/10; 16:22 BP 111 / 49; Pulse 68; Resp 16; Pulse Ox 98% on R/A; dunn 16:53 BP 139 / 70; Pulse 80; Resp 17; Pulse Ox 100% on R/A; dunn 18:44 BP 141 / 76; Pulse 61; Resp 17; Pulse Ox 98% on R/A; dunn 14:01 Body Mass Index 20.60 (54.43 kg, 162.56 cm) ss MDM: 14:02 Patient medically screened. kb 15:31 ED course: I gave patient a cup of water, was able to tolerate sips of water without rn cough or vomiting, went down fine.. 16:41 Differential Diagnosis: Upper Respiratory Infection. rn 16:42 Data reviewed: vital signs, nurses notes, lab test result(s), EKG, radiologic studies, rn CT scan, plain films, and as a result, I will admit patient. Counseling: I had a detailed discussion with the patient and/or guardian regarding: the historical points, exam findings, and any diagnostic results supporting the discharge/admit diagnosis, lab results, radiology results, the need for further work-up and treatment in the hospital. Response to treatment: the patient's symptoms have mildly improved after treatment, and as a result, I will admit patient. Admission orders: after a detailed discussion of the patient's condition and case, the admit orders are written by me. ED course: Pt with primarily CHF exacerbation, pulmonary edema, lower ext edema. Tolerated liquids here, definitely has chronic GERD and hiatal hernia with likely esophageal strictures, but has been slowly worsening. Admitting for CHF. Daughter states nicolette was for some reason taken off his medication list about 1 month ago and has not been taking it. . 18:54 ED course: Daughter, Brandie, can be reached at [phone]. rn 09/30 14:16 Order name: CBC with Diff; Complete Time: 14:45 rn 09/30 14:16 Order name: Basic Metabolic Panel; Complete Time: 14:45 rn 09/30 14:16 Order name: Protime (+inr); Complete Time: 14:45 rn 09/30 14:16 Order name: Ptt, Activated; Complete Time: 14:45 rn 09/30 14:16 Order name: Procalcitonin; Complete Time: 16:18 rn 09/30 16:12 Order name: LAB Add On eb 09/30 14:16 Order name: XRAY Chest (1 view); Complete Time: 16:09 rn 09/30 14:16 Order name: Extremity Venous Uni Ltd US; Complete Time: 16:09 rn 09/30 15:24 Order name: CT Abd/Pelvis - Without Contrast; Complete Time: 16:11 rn 09/30 16:18 Order name: NT PRO-BNP; Complete Time: 16:41 EDMS 09/30 16:36 Order name: SARS-COV-2 RT PCR (Document "Date of Onset" if Symptomatic) 09/30 16:42 Order name: COVID-19/FLU A+B (Document "Date of Onset" if Symptomatic) 09/30 18:04 Order name: T4 Free EDAK 09/30 18:04 Order name: Thyroid Stimulating Hormone EDAK 09/30 14:16 Order name: IV Start; Complete Time: 14:31 rn 09/30 15:34 Order name: Soft Tissue Neck Wo Contr; Complete Time: 16:09 EDMS Administered Medications: 15:38 Drug: Zofran (Ondansetron) 4 mg Route: IVP; Site: left forearm; dunn 15:39 Follow up: Response: No adverse reaction dunn 15:39 Drug: morphine 2 mg Route: IVP; Site: left forearm; dunn 15:39 Follow up: Response: No adverse reaction dunn 16:52 Drug: Lasix (furosemide) 40 mg Route: IVP; Site: left forearm; dunn 16:52 Follow up: Response: No adverse reaction dunn Disposition Summary: 09/30/21 16:45 Hospitalization Ordered Hospitalization Status: Inpatient Admission rn Provider: Javier Alvarenga rn Location: Telemetry/MedSurg (Inpatient) rn Condition: Stable rn Problem: an acute exacerbation rn Symptoms: have improved rn Bed/Room Type: Standard rn Room Assignment: 220(09/30/21 19:47) cg Diagnosis - Unspecified combined systolic (congestive) and diastolic (congestive) heart failure rn - Acute pulmonary edema rn - Dyspnea, unspecified rn - Dysphagia, unspecified rn Forms: - Medication Reconciliation Form rn - SBAR form rn Signatures: Dispatcher [employer] [facility] Lynn Luke, CUSTOMER SUPPORT ASSISTANT-C CUSTOMER SUPPORT ASSISTANT-Ckb Andrade Moore MD MD rn Smirch, Shelby, RN RN ss Garcia, Cindy, RN RN cg Lurdes-StagerKaye RN RN dunn Corrections: (The following items were deleted from the chart) 15:32 15:31 Soft Tissue Neck W/Contr+CT.RAD.BRZ ordered. [facility] 15:36 15:32 Constitutional: Negative for fever, chills, and weight loss, Eyes: Negative for rn injury, pain, redness, and discharge, ENT: + congestion and dysphagia Neck: Negative for injury, pain, and swelling, Cardiovascular: Negative for chest pain, palpitations, and edema, Respiratory: Negative for shortness of breath, cough, wheezing, and pleuritic chest pain, Abdomen/GI: Negative for abdominal pain, nausea, vomiting, diarrhea, and constipation, Back: Negative for injury and pain, : Negative for injury, bleeding, discharge, and swelling, MS/Extremity: Negative for injury and deformity, Skin: Negative for injury, rash, and discoloration, Neuro: Negative for headache, weakness, numbness, tingling, and seizure, rn 19:47 16:45 rn cg
[2021-09-30] MEDS ORDERED: FUROSEMIDE 40 MG/4 ML VIAL ONE (16:51)
[2021-09-30] MEDS ORDERED: DOCUSATE NA/SENNA CONC 1 TAB PO PRN (17:22)
[2021-09-30] MEDS ORDERED: ONDANSETRON 4 MG/2 ML VIAL IV PRN (17:25)
[2021-09-30] MEDS ORDERED: ACETAMINOPHEN 500 MG TAB PO PRN (17:25)
[2021-09-30] MEDS ORDERED: GUAIFENESIN/CODEINE 5ML UCUP PO PRN (17:43)
--- NOTE | 2021-09-30 17:45 | P.HP ---
Certification for Inpatient Patient admitted to: Inpatient With expected LOS: >2 Midnights Practitioner: I am a practitioner with admitting privileges, knowledge of patient current condition, hospital course, and medical plan of care. Services: Services provided to patient in accordance with Admission requirements found in Title 42 Section 412.3 of the Code of Federal Regulations Patient History Date of Service: 09/30/21 Reason for admission: Cough, RLE swelling and Abdpminal pain History of Present Illness: Patient is an 89-year-old male with a past medical history significant for BPH, GERD, insomnia, hypertension, constipation, CHF, DVT with IVC filter, CAD with CABG, prostate cancer who presents with complaint of abdominal pain, cough and right leg swelling. Patient reported that he initially started having shortness of breath 6 days ago and the presenting symptoms started 4 days ago. Patient reports associated signs and symptoms of rhinorrhea, sore throat and wheezing. Patient reported that he was seen by his PCP and placed on antibiotics. Patient reported that he has completed the antibiotics but feel no feel any relief. Patient rated abdominal pain as 7/10 in severity and described pain as aching in quality. Patient denies any other signs or symptoms. Symptoms are aggravated or relieved by nothing. Patient decided to present to the hospital due to worsening symptoms. Allergies doxazosin [From Cardura] Allergy (Severe, Verified 11/06/18 17:42) Hives Home Medications: Amlodipine [Norvasc*] 10 mg PO DAILY 04/14/18 Eszopiclone [Lunesta*] 3 mg PO BEDTIME 04/14/18 Tamsulosin [Flomax*] 0.4 mg PO DAILY 04/14/18 Aspirin [Aspirin EC 81 MG] 81 mg PO DAILY 11/06/18 Esomeprazole Mag Trihydrate [Nexium] 40 mg PO DAILY AT SUPPER 11/06/18 Apixaban [Eliquis *] 2.5 mg PO BID tablet 05/01/21 Docusate [Colace Cap*] 100 mg PO BID cap 05/01/21 Furosemide [Lasix] 40 mg PO DAILY #30 tab 05/01/21 carvediloL [Coreg*] 3.125 mg PO BID 6AM 6PM tab 05/01/21 lisinopriL [Prinivil*] 5 mg PO DAILY tab 05/01/21 - Past Medical/Surgical History Diabetic: No -: CAD/CABG -: History of prostate cancer -: Chronic diastolic congestive heart failure -: History of DVT with IVC filter -: aortic valve replacement November 2017 -: CABG 2010 -: IVC filter in place -: Appendectomy -: Cholecystectomy Psychosocial/ Personal History: Patient is currently resident at [facility] - Family History Father -: Heart disease - Social History Smoking Status: Never smoker Alcohol use: No CD- Drugs: No Caffeine use: Yes Place of Residence: [facility] Review of Systems General: Malaise Eyes: Unremarkable ENT: Throat Pain Respiratory: Cough, Shortness of Breath, Wheezing, Other (Rhinorrea ) Cardiovascular: Unremarkable Gastrointestinal: Abdominal Pain, Constipation Genitourinary: Unremarkable Musculoskeletal: Other (RLE swelling ) Integumentary: Unremarkable Neurological: Unremarkable Lymphatics: Unremarkable Physical Examination - Physical Exam General: Alert, Oriented x3 HEENT: Normocephalic, PERRLA Neck: Supple, 2+ carotid pulse no bruit, JVD not distended Respiratory: Diminished, Expiratory wheezes, Inspiratory wheezes Cardiovascular: Normal pulses, Regular rate/rhythm Capillary refill: <2 Seconds Gastrointestinal: Normal bowel sounds, Non-distended Musculoskeletal: No clubbing, No erythema, Swelling Integumentary: No rashes, No breakdown, No significant lesion, No ulcers Neurological: Normal gait, Normal speech Lymphatics: No axilla or inguinal lymphadenopathy - Studies Laboratory Data (last 24 hrs) 09/30/21 14:06: PT 13.9 H, INR 1.26, APTT 30.7 09/30/21 14:06: Sodium 132 L, Potassium 4.5, BUN 19 H, Creatinine 1.05, Glucose 108 H 09/30/21 14:06: WBC 6.3, Hgb 9.3 L, Hct 27.7 L, Plt Count 315 Assessment and Plan - Plan --Acute on chronic diastolic CHF exacerbation. Daily weight and strict I/O. Continue diuresis with Lasix. Continue home medications. Echocardiogram pending. 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s consulted. Will await further recommendations. --Pneumonia. Noted on imaging. Continue antibiotics, steroids, neb treatment with Atrovent\Albuterol and O2 therapy. --Hypertension. Stable. Continue home medications --History of prostate cancer. Status unknown. Continue supportive care. --History of DVT with IVC filter. Continue aspirin and Eliquis. --GERD. Continue omeprazole. --BPH. Continue Flomax. --Insomnia. Continue home medication. --History of CAD with CABG. Continue Aspirin and Eliquis --Constipation. Continue laxatives. --DVT prophylaxis with Eliquis. Discharge Plan: [facility] Plan to discharge in: 48 Hours - Advance Directives Does patient have a Living Will: Yes Does patient have a Durable POA for Healthcare: Yes - Code Status/Comfort Care Code Status Assessed: Yes Code Status: Full Code Physician Review: Patient Assessed, Agree with Above Assessment and Plan Critical Care: Yes
[2021-09-30] MEDS: carvediloL 3.125 MG TAB PO SCH (18:00)
[2021-09-30 18:04] LABS: Thyroid Stimulating Hormone 2.24 uIU/mL (0.360-3.740)
[2021-09-30] MEDS: HYDROCODONE/APAP 5/325 MG TAB PO PRN (18:43)
[2021-09-30] MEDS ORDERED: HYDROCODONE/APAP 5/325 MG TAB ONE (18:44)
[2021-09-30] MEDS ORDERED: ALBUTEROL 2.5 MG/3 ML NEB SOL ONE (19:56)
[2021-09-30] MEDS ORDERED: IPRATROPIUM BROM 0.5MG/2.5ML ONE (19:57)
[2021-09-30] MEDS: IPRATROPIUM BROM 0.5MG/2.5ML NEB SCH (20:00)
[2021-09-30] MEDS ORDERED: CEFTRIAXONE 1,000 MG in NA CHLORIDE 0.9% 50 ML IVPB SCH (20:00)
[2021-09-30] MEDS ORDERED: AZITHROMYCIN IV 500 MG in NA CHLORIDE 0.9% 250 ML IVPB SCH (20:00)
[2021-09-30] MEDS: ALBUTEROL 2.5 MG/3 ML NEB SOL NEB SCH (20:00)
[2021-09-30] MEDS: APIXABAN 2.5 MG TABLET PO SCH (21:00)
[2021-09-30] MEDS ORDERED: HEPARIN 5000 UNIT/ML 1 ML VIAL SQ SCH (21:00)
[2021-09-30] MEDS: ESZOPICLONE 1 MG TAB PO SCH (21:00)
[2021-09-30 22:18] LABS: SARS-COV-2 RT PCR NEGATIVE (NEGATIVE)
[2021-10-01] MEDS: METHYLPREDNISOLONE 40 MG INJ IV SCH ×3 (01:24→16:18)
[2021-10-01] MEDS ORDERED: FAMOTIDINE 20 MG/2 ML VIAL IV ONE (01:33)
[2021-10-01] MEDS: IPRATROPIUM BROM 0.5MG/2.5ML NEB SCH ×4 (01:40→20:05)
[2021-10-01] MEDS: ALBUTEROL 2.5 MG/3 ML NEB SOL NEB SCH ×4 (01:40→20:05)
[2021-10-01 04:14] LABS: Absolute Lymphocytes (CBC) 0.5 K/uL (0.7-4.9); Hematocrit 26.6 % (39.6-49.0); Lymphocytes % 7.5 % (15.3-44.8); MPV 7.5 fL (7.6-11.3); RBC Red Blood Cell Count 3.19 M/uL (4.33-5.43)
[2021-10-01 04:30] LABS: Potassium 4.4 mmol/L (3.5-5.1)
[2021-10-01 05:38] LABS: Urine Appearance Clear (Clear); Urine Bilirubin Negative (Negative); Urine Blood Negative (Negative); Urine Color Yellow (Yellow); Urine Glucose Negative (Negative); Urine Protein Negative (Negative); Urine Specific Gravity 1.015 (1.005-1.030)
[2021-10-01 05:40] LABS: Urine Microscopic Reflex NO UMIC
[2021-10-01] MEDS: carvediloL 3.125 MG TAB PO SCH ×2 (06:00→16:17)
[2021-10-01] MEDS ORDERED: AZITHROMYCIN IV 500 MG in NA CHLORIDE 0.9% 250 ML IVPB SCH ×5 (09:00→20:00)
[2021-10-01] MEDS ORDERED: CEFTRIAXONE 1,000 MG in NA CHLORIDE 0.9% 50 ML IVPB SCH ×2 (09:00→20:00)
[2021-10-01] MEDS: CEFTRIAXONE 1,000 MG in NA CHLORIDE 0.9% 50 ML IVPB SCH (09:38)
[2021-10-01] MEDS: lisinopriL 5 MG TAB PO SCH (09:39)
[2021-10-01] MEDS: FUROSEMIDE 40 MG/4 ML VIAL IV SCH ×2 (09:39→16:18)
[2021-10-01] MEDS: APIXABAN 2.5 MG TABLET PO SCH ×2 (09:39→21:25)
[2021-10-01] MEDS: TAMSULOSIN 0.4 MG SR CAP PO SCH (09:39)
[2021-10-01] MEDS: AMLODIPINE 10 MG TAB PO SCH (09:39)
[2021-10-01] MEDS: POLYETHYL GLY 3350 17 GM/DOSE PO SCH (09:40)
[2021-10-01] MEDS: ASPIRIN EC 81 MG TAB PO SCH (09:40)
--- NOTE | 2021-10-01 10:13 | P.PN ---
Subjective Date of Service: 10/01/21 Subjective: No new changes, No C/O voiced, Improving Review of Systems 10-point ROS is otherwise unremarkable Physical Examination - Vital Signs Temperature: 97.4 F Blood Pressure: 132/60 Pulse: 77 Respirations: 17 Pulse Ox (%): 96 - Physical Exam General: Alert, In no apparent distress, Oriented x3 HEENT: Atraumatic, PERRLA, EOMI Neck: Supple, JVD not distended Respiratory: Diminished, Friction rub Cardiovascular: Regular rate/rhythm, Normal S1 S2, Systolic murmur Gastrointestinal: Normal bowel sounds, Soft and benign, Non-distended, No tenderness Musculoskeletal: No clubbing, No tenderness, Swelling Integumentary: No rashes Neurological: Normal speech, Normal tone, Normal affect Lymphatics: No axilla or inguinal lymphadenopathy - Studies Laboratory Data (last 24 hrs) 09/30/21 14:06: PT 13.9 H, INR 1.26, APTT 30.7 09/30/21 14:06: Sodium 132 L, Potassium 4.5, BUN 19 H, Creatinine 1.05, Glucose 108 H 09/30/21 14:06: WBC 6.3, Hgb 9.3 L, Hct 27.7 L, Plt Count 315 Medications List Reviewed: Yes Assessment & Plan - Problems (Diagnosis) (1) Acute exacerbation of CHF (congestive heart failure) Current Visit: Yes Status: Acute - Plan PLAN: 1. Echocardiogram if it has not been performed in the last 6 months 2. We will start patient on an YARELI inhibitor or an ARB 3. We will start patient on a Beta areli 4. Cardiology consultation 5. Aggressive diuresis 6. Strict I's and O's 7. Repeat CXR 8. Daily weights 9. Education regarding diet and treatment of congestive heart failure - Advance Directives Does patient have a Living Will: Yes Does patient have a Durable POA for Healthcare: Yes - Code Status/Comfort Care Code Status: Full Code Physician Review: Patient Assessed, Agree with Above Assessment and Plan
[2021-10-01] MEDS ORDERED: RISPERIDONE 1 MG TABLET PO ONE (16:00)
[2021-10-01] MEDS ORDERED: HOME MED 1 EA UNK (Esomeprazole Mag Trihydrate [Nexium] 40 MG Capsule.Dr) PO SCH (17:00)
[2021-10-01] MEDS ORDERED: LORazepam 2 MG/ML VIAL IV ONE (17:00)
[2021-10-01] MEDS ORDERED: PANTOPRAZOLE 40MG TABLET PO SCH (17:00)
[2021-10-01] MEDS: ESZOPICLONE 1 MG TAB PO SCH (21:00)
[2021-10-01] MEDS: ENSURE ENLIVE 237 ML CAN PO SCH (21:25)
[2021-10-02] MEDS: METHYLPREDNISOLONE 40 MG INJ IV SCH ×2 (00:02→09:21)
[2021-10-02] MEDS: HYDROCODONE/APAP 5/325 MG TAB PO PRN (01:18)
[2021-10-02] MEDS: ALBUTEROL 2.5 MG/3 ML NEB SOL NEB SCH ×3 (01:25→14:00)
[2021-10-02] MEDS: IPRATROPIUM BROM 0.5MG/2.5ML NEB SCH ×3 (01:25→14:00)
[2021-10-02] MEDS: carvediloL 3.125 MG TAB PO SCH (05:11)
[2021-10-02 05:13] VITALS: BMI 21.4
[2021-10-02 06:20] LABS: Magnesium 2.3 mg/dL (1.8-2.4); Potassium 4.2 mmol/L (3.5-5.1)
[2021-10-02] MEDS: ENSURE ENLIVE 237 ML CAN PO SCH (09:00)
[2021-10-02] MEDS: FUROSEMIDE 40 MG/4 ML VIAL IV SCH (09:13)
[2021-10-02] MEDS: CEFTRIAXONE 1,000 MG in NA CHLORIDE 0.9% 50 ML IVPB SCH (09:13)
[2021-10-02] MEDS: TAMSULOSIN 0.4 MG SR CAP PO SCH (09:15)
[2021-10-02] MEDS: APIXABAN 2.5 MG TABLET PO SCH (09:15)
[2021-10-02] MEDS: ASPIRIN EC 81 MG TAB PO SCH (09:15)
[2021-10-02] MEDS: POLYETHYL GLY 3350 17 GM/DOSE PO SCH (09:15)
[2021-10-02] MEDS: AMLODIPINE 10 MG TAB PO SCH (09:15)
[2021-10-02] MEDS: lisinopriL 5 MG TAB PO SCH (09:16)
[2021-10-02 09:23] VITALS: O2SAT 98
--- NOTE | 2021-10-02 09:43 | ECHO ---
HEIGHT: 5 ft 4 in WEIGHT: 124 lb 14.4 oz DATE OF STUDY: 10/01/[address]: Vickie Landin 2-DIMENSIONAL: YES M.MODE: YES DOPPLER: YES COLOR FLOW: YES TDS: NO PORTABLE: NO DEFINITY: NO BUBBLE STUDY: NO DIAGNOSIS: CARDIAC HISTORY: CATHERIZATION:YES SURGERY: YES PROSTHETIC VALVE: YES PACEMAKER: NO MEASUREMENTS (cm) DIASTOLIC (NORMALS) SYSTOLIC (NORMALS) IVSd 0.9 (0.6-1.2) LA Diam (1.9-4.0) LVEF 55-60% LVIDd 4.6 (3.5-5.7) LVIDs (2.0-3.5) %FS % LVPWd 1.0 (0.6-1.2) Ao Diam (2.0-3.7) 2 DIMENSIONAL ASSESSMENT: RIGHT ATRIUM: NORMAL LEFT ATRIUM: NORMAL RIGHT VENTRICLE: NORMAL LEFT VENTRICLE: NORMAL TRICUSPID VALVE: NORMAL MITRAL VALVE: MITRAL ANNULAR CALCIFICATION PULMONIC VALVE: NORMAL AORTIC VALVE: STATUS POST AVR PERICARDIAL EFFUSION: NONE AORTIC ROOT: NORMAL LEFT VENTRICULAR WALL MOTION: NORMAL DOPPLER/COLOR FLOW: MILD MITRAL AND TRICUSPID REGURGITATION. COMMENTS: MILD MITRAL AND TRICUSPID REGURGITATION. NORMAL BIOPROSTHETIC AORTIC VALVE REPLACEMENT. NORMAL LEFT VENTRICULAR EJECTION FRACTION. MITRAL ANNULAR CALCIFICATION. TECHNOLOGIST: Maggie MASTERS
[2021-10-02 14:22] VITALS: BP 128/60; TEMP 97.7
[2021-10-02] MEDS ORDERED: DOCUSATE NA 100 MG CAP PO PRN (14:47)
[2021-10-02] MEDS ORDERED: HOME MED 1 EA UNK (Albuterol Sulfate [Proair Digihaler] 90 MCG Aer.Pw.Bas) PO PRN (14:47)
[2021-10-02] MEDS ORDERED: FAMOTIDINE 20 MG TAB PO SCH (21:00)
[2021-10-02] MEDS ORDERED: HOME MED 1 EA UNK (Trazodone Hcl [Trazodone Hcl] 100 MG Tablet) PO SCH (21:00)
[2021-10-02] MEDS ORDERED: RISPERIDONE 1 MG TABLET PO SCH (21:00)
[2021-10-02] MEDS ORDERED: HOME MED 1 EA UNK (Risperidone [Risperdal] 2 MG Tablet) PO SCH (21:00)
[2021-10-02] MEDS ORDERED: TRAZODONE 50 MG TABLET PO SCH (21:00)
[2021-10-03] MEDS ORDERED: FINASTERIDE 5 MG TAB PO SCH (09:00)
[2021-10-03] MEDS ORDERED: RISPERIDONE 1 MG TABLET PO SCH (09:00)
[2021-10-03] MEDS ORDERED: APIXABAN 2.5 MG TABLET PO SCH (09:00)
[2021-10-03] MEDS ORDERED: TAMSULOSIN 0.4 MG SR CAP PO SCH (09:00)
[2021-10-03] MEDS ORDERED: ASPIRIN 81 MG CHEWABLE TABLET PO SCH (09:00)
[2021-10-03] MEDS ORDERED: HOME MED 1 EA UNK (Fluticasone/Vilanterol [Breo Ellipta 100-25 Mcg Inh] Blst.W.Dev) IH SCH (09:00)
[2021-10-03] MEDS ORDERED: lisinopriL 10 MG TAB PO SCH (09:00)
--- NOTE | 2021-10-04 15:41 | CON ---
Date of Consultation: 10/01/2021 Reason For Consultation: Congestive heart failure. History Of Present Illness: Mr. Castaneda is an 89-year-old. Has a history of CABG, CVA, hypertension, and DVT. Came in with cough, abdominal swelling, edema, PND, orthopnea. No palpitation. No syncop e. Denied any chest pain, nausea, vomiting, diaphoresis. Chest x-ray showed CHF and possible pneumo den. Echocardiogram is pending. Past Medical History: As stated above. Medications: At home include inhalers, Eliquis, aspirin, lisinopril, and Flomax. Review of Systems: Negative. Social History: Negative. Family History: Noncontributory. Allergies: HE IS ALLERGIC TO LIPITOR, IODINE, AND DOXAZOSIN. Physical Examination: Vital Signs: Stable. He is afebrile. HEENT: Negative. Neck: Supple with no bruit. Chest: Reveals some rales both bases. Cardiac: Exam reveals a regular rhythm and rate with S3 gallops. Abdomen: Benign. Extremities: Revealed no clubbing, cyanosis, or edema. Diagnostic Data: His chest x-ray showed congestive heart failure. BNP was 5291. Hemoglobin 9.0. E KG is nonspecific. Echocardiogram in March of 2020 is within normal limits. He had a bioprostheti c aortic valve that was functioning appropriately. Impression And Plan: 1.Acute on chronic diastolic congestive heart failure. 2.Status post bioprosthetic aortic valve. 3.History of atrial fibrillation, on Eliquis. 4.History of chronic obstructive pulmonary disease, on inhalers. 5.Hypertension, on lisinopril. 6.Benign prostatic hypertrophy, on Flomax. 7.History of deep venous thrombosis. 8.History of coronary artery bypass graft. 9.History of cerebrovascular accident. The patient presently is on inhalers, heparin, antibiotics, and steroids as well as his home medicati ons. We will see what the echocardiogram shows before making further decisions. ALETA/RODOLFO Voice ID: [id number] Report ID: [id number]
--- NOTE | 2021-10-05 11:48 | PN ---
Date of Progress Note: 10/02/2021 Mr. Castaneda has a rather complicated past history. He came in with pojpq-xk-qhjtons diastolic congest bianka heart failure. He is status post bioprosthetic aortic valve. He has atrial fibrillation, COPD, hypertension, deep venous thrombosis, has had coronary artery bypass surgery and stroke. He was on i nhalers, heparin, antibiotics, steroids as well as his home medications. Echocardiogram which was do ne showed an ejection fraction of 55% to 60% and normal bioprosthetic aortic valve with normal left v entricular ejection fraction and mitral annular calcification. He has improved, and I think he can g o home. We will see him in the office in the near future. No change in medical therapy. ALETA/RODOLFO Voice ID: [id number] Report ID: [id number]
== END 2021-10-02 18:37 | disposition home or self-care (01) | DRG 291 ==
LOC: ER 13:58 → ERHOLD 17:19 → 2ND 19:56
PROVIDERS: ADMIT Internal Medicine Sleep Medicine; ATTEND Hospitalist
DX: I11.0 Hypertensive heart disease with heart failure (principal); I50.33 Acute on chronic diastolic (congestive) heart failure; J18.9 Pneumonia, unspecified organism; J44.0 Chronic obstructive pulmonary disease with (acute) lower respiratory infection; K59.00 Constipation, unspecified; G47.00 Insomnia, unspecified; I25.10 Atherosclerotic heart disease of native coronary artery without angina pectoris; I48.91 Unspecified atrial fibrillation; N40.0 Benign prostatic hyperplasia without lower urinary tract symptoms; K21.9 Gastro-esophageal reflux disease without esophagitis; I25.2 Old myocardial infarction; Z88.1 Allergy status to other antibiotic agents; Z88.8 Allergy status to other drugs, medicaments and biological substances; Z79.01 Long term (current) use of anticoagulants; Z79.899 Other long term (current) drug therapy; Z95.2 Presence of prosthetic heart valve; Z95.5 Presence of coronary angioplasty implant and graft; Z86.73 Personal history of transient ischemic attack (TIA), and cerebral infarction without residual deficits; Z86.718 Personal history of other venous thrombosis and embolism; Z85.46 Personal history of malignant neoplasm of prostate; Z90.49 Acquired absence of other specified parts of digestive tract; Z79.82 Long term (current) use of aspirin; Z20.822 Contact with and (suspected) exposure to COVID-19
CPT/HCPCS: 0240U; 36415; 70490; 71045; 74176; 80048; 81003; 82947; 83735; 83880; 84100; 84145; 84439; 84443; 85025; 85610; 85730; 93306; 93971; 94640; 96374; 96375; 99284; J0456; J1644; J1940; J2270; J2405; J2920; J7050

== ENCOUNTER 2021-10-04 17:12 | Emergency (ER) | payer OTHER, BC ==
--- OUTSIDE RECORDS SUMMARY | 2021-10-04 17:19 | XMS REPORT | Continuity of Care Document ---
:1930 Author Organization [facility] t Address [address] [place] [address] Care Team Providers Name Role Phone Bebeto GARCIA, [facility] Primary Care Physician Justice Guzman Attending Clinician Unavailable Hugo GARCIA, Trav Fernandez. Attending Clinician [phone] Anupam GARCIA, O. Attending Clinician Renee GARCIA Attending Clinician 2030_Biopsy Attending Clinician Unavailable Rebecca Lopez MA Attending Clinician Unavailable Bebeto GARCIA Attending Clinician Fawad GARCIA Attending Clinician Dusty Fowler MD Attending Clinician Ivory DAHL Attending Clinician Unavailable Pob, Lab Main Attending Clinician Unavailable Anthony GARCIA, S Attending Clinician ANTHONY, S Attending Clinician Unavailable Doctor Unassigned, Name Attending Clinician Unavailable Singer AGUIRRE Attending Clinician May Peralta Attending Clinician Ivory Whaley Attending Clinician Ivory CARODNA Attending Clinician Unavailable Олег Parkinson MD Attending Clinician SAINI Attending Clinician Unavailable SAINI Attending Clinician Unavailable Macho, Nani Admitting Clinician Unavailable Physician, Primary or Family Admitting Clinician Unavailvalerio CALIX Admitting Clinician Unavailable 2030_Biopsy Admitting Clinician Unavailable SAINI Admitting Clinician Unavailable Payers Payer Name Policy Type Policy Effective Date Expiration Date Sour ce Number BCBS FED SELECT [id number] 2015 00:00:00 MEDICARE PART A [id number] 1996 \T\ B 00:00:00 [employer] [id number] 2015 [facility] 00:00:00 - Patients Employees [facility] Medicare A & B [id number] [address] 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 Added automatic ally from request for surgery [id number] Small Problem Active [facility] - obstructio [facility] Nausea Problem Active [facility] Hypomagnes Problem Active [facility] emia [facility] Leukocytos Problem Active [facility] S t. is [facility] Hypertensi Problem Active [facility] t[facility] on [facility] History of Problem Active [facility] arterioscl [facility] - erotic Patient cardiovasc s [facility] Abdominal Problem Active [facility] St . pain [facility] No known No known Disease Unive rs active active ity of problems problems [facility] Allergies, Adverse Reactions, Alerts Allergy Allergy Status Severity Reaction(s) Onset Inactive Treating Comm ents Source Name Type Date Date Clinician iodine DA Active U UNKNOWN [facility] - Clear 00:00: Garcia 00 [facility] diphenhy DA Active U UNKNOWN [facility] dramine 09-05 Clear 00:00: Garcia 00 [facility] atorvast DA Active U UNKNOWN [facility] atin 09-05 Clear 00:00: Garcia 00 [facility] Diphenhy Propensi Active Itching Pt states [...] Atorvast Propensi Active Other (See Unknown [facility] atia ty to Comments) 11-30 reaction, st adverse 00:00: patient Hospita reaction 00 daughter l s to confirmed drug allergy with patients cardiolog ist. Iodine Allergy Active [facility]anc 00:00: Patient e 00 [facility] Doxazosi Allergy Active 2018-[address] [facility] [facility] substanc 00:00: Patient e 00 [facility] CARDURA DA Active U FAINTING; 2001- [facility] LOW B/P 6-12 Clear 00:00: Garcia 00 [facility] No Known DA Active U 2001- [facility] Contrast 6 Clear Allergie 00:00: Garcia s [facility] No Known DA Active U 2001-0 [facility] Food - Clear Allergie 00:00: Garcia s 00 [facility] No Known DA Active U 2001-0 [facility] Other 6- Clear Allergie 00:00: Garcia s 00 [facility] NO KNOWN Drug Active Univers ALLERGIE Class ity of S [facility] doxazosi DA Active [facility] iodine DA Active [facility] Family History Family Member Diagnosis Comments Start Date Stop Date Source Natural brother [facility] disease [facility] Natural father Heart disease [facility] Natural father Hypertension Method t [facility] Natural mother Alzheimer's disease [facility] Natural sister Other [facility] Social History Social Habit Start Date Stop Date Quantity Comments Source Exposure to Not sure [facility] SARS-CoV-2 (event) [facility] History of tobacco Smoker Method ist use Hospital History SDOH [facility] Alcohol Frequency Hospita l History SDOH [facility] Alcohol Std Drinks Hospit al History SDOH [facility] Alcohol Binge Hospital Alcohol intake 2021-01-10 2021-01-10 Current University of 00:00:00 00:00:00 non-drinker of [facility] alcohol (finding) Branch Tobacco use and 2021-01-10 2021-01-10 Never used Universit y of exposure 00:00:00 00:00:00 [facility] Alcohol Comment 2017-12-10 2017-12-10 ocassional [facility] 00:00:00 00:00:00 Hospital Cigarettes smoked 2017-08-07 2017-08-[address] current (pack per 00:00:00 00:00:00 Hospita l day) - Reported Cigarette 2017-08-07 2017-08-07 [facility] pack-years 00:00:00 00:00:00 Hospital Sex Assigned At [birth year] Universit y of 00:00:00 00:00:00 [facility] Smoking Status Start Date Stop Date Source Never smoker [facility] Ex-smoker 2017-08-07 00:00:00 2017-08-07 00:00:00 [facility] Medications Ordered Filled Start Stop Current Ordering Indication Dosage Frequency Signature Comments Components Source Medication Medication Date Date Medication? Clinician (SIG) Name Name ergocalcife 2021- Yes [id number] Q7D Take 1 M ethodi rol 07-[address] (VITAMIN 00:00: 05:59 (50,000 Hospi ta D2) 50,000 00 :00 Units l unit total) by capsule mouth once a week for 30 days. traZODone Yes 50mg Q.5D Take 50 mg Me thodi (DESYREL) 1-[address] 50 MG 12:51: (two) Hospita tablet 03 times a l day. LORAZepam 0 Yes .5mg Q8H Take 0.5 Meth marcella [...] 23 (two) l times a day. ipratropium Yes 1{spray 1 spray [facility]i (ATROVENT) 1-14 [...] Hospita enteric 23 l coated tablet albuterol 0 2021- Yes 2{puff} Q.25D Inhale 2 Method[facility] [...] to 30 days. isosorbide 2020-06 No 20mg [id number] Take 1 [facility] dinitrate 0-25 11-25 [id number] tablet (20 st (ISORDIL) 00:00: 05:59 3D [...] times a day for 30 days. sennosides- 2020-06 No 1{tbl} QD Take 1 M ethodi [...] up to 3 days. ergocalcife 2020- No [id number] Q7D Take 1 M ethodi rol 02-27 [...] No 40mg 40 mg, Uni vers e 7-16 01-20 Oral, ONCE ity of (PROTONIX) 08:30: 07:18 [...] 1 Flash as mg 00 :00 dose, [facility] 01/16/21 at Branch 0045, STAT amLODIPine Yes 10mg Take 10 mg U nivers 10 mg 7-02 by mouth ity of tablet 18:08: daily. [address] Branch aspirin 325 0 Yes 325mg Take 325 U nivers mg tablet 7-02 mg by ity of 18:08: mouth [place] 23 daily. Medical Branch valsartan-h Yes 1{tbl} Take 1 Un alma ydrochlorot 7-02 tablet by ity of hiazide 18:08: mouth [place] 160-12.5 mg 23 daily. Medica l per tablet Branch eszopiclone Yes 3mg Take 3 mg U nivers 3 mg tablet 7-02 by mouth ity of 18:08: at [place] [address] bedtime. Medical Branch cloNIDine Yes .1mg Take 0.1 Univ ers 0.1 mg 7-02 mg by ity of tablet 18:08: mouth 3 [place] 23 (three) Medical times Branch daily. apixaban Yes 2.5mg Take 2.5 Univ ers (ELIQUIS) 7-02 mg by ity of 2.5 mg 18:08: mouth 2 [place] [facility] 23 (two) Medical times Branch daily. omeprazole Yes 40mg Take 40 mg U nivers 40 mg 7-02 by mouth ity of capsule 18:08: daily. [address] Branch lisinopriL Yes 5mg Take 5 mg Un alma 5 mg tablet 7-02 by mouth ity of 18:08: daily. [address] Branch finasteride Yes 5mg Take 5 mg U nivers 5 mg tablet 7-02 by mouth ity of 18:08: daily. [address] Branch amLODIPine Yes 10mg Take 10 mg U nivers 10 mg 7-02 by mouth ity of tablet 18:08: daily. [address] Branch aspirin 325 0 Yes 325mg Take 325 U nivers mg tablet 7-02 mg by ity of 18:08: mouth [place] 23 daily. Medical Branch valsartan-h Yes 1{tbl} Take 1 Un alma ydrochlorot 7-02 tablet by ity of hiazide 18:08: mouth [place] 160-12.5 mg 23 daily. Medica l per tablet Branch eszopiclone Yes 3mg Take 3 mg U nivers 3 mg tablet 7-02 by mouth ity of 18:08: at [place] [address] bedtime. Medical Branch cloNIDine Yes .1mg Take 0.1 Univ ers 0.1 mg 7-02 mg by ity of tablet 18:08: mouth 3 [place] 23 (three) Medical times Branch daily. apixaban Yes 2.5mg Take 2.5 Univ ers (ELIQUIS) 7-02 mg by ity of 2.5 mg 18:08: mouth 2 [facility] 23 (two) Medical times Branch daily. omeprazole Yes 40mg Take 40 mg U nivers 40 mg 7-02 by mouth ity of capsule 18:08: daily. [address] Branch lisinopriL Yes 5mg Take 5 mg Un alma 5 mg tablet 7-02 by mouth ity of 18:08: daily. [place] [address] Medical Branch finasteride Yes 5mg Take 5 mg U nivers 5 mg tablet 7-02 by mouth ity of 18:08: daily. [place] [address] Medical Branch amLODIPine Yes 10mg Take 10 mg U nivers 10 mg 7-02 by mouth ity of tablet 18:08: daily. [place] [address] Medical Branch aspirin 325 Yes 325mg Take 325 U nivers mg tablet 7-02 mg by ity of 18:08: mouth [place] 23 daily. Medical Branch valsartan-h Yes 1{tbl} Take 1 Un alma ydrochlorot 7-02 tablet by ity of hiazide 18:08: mouth [place] 160-12.5 mg 23 daily. Medica l per tablet Branch eszopiclone Yes 3mg Take 3 mg U nivers 3 mg tablet 7-02 by mouth ity of 18:08: at [place] [address] bedtime. Medical Branch cloNIDine Yes .1mg Take 0.1 Univ ers 0.1 mg 7-02 mg by ity of tablet 18:08: mouth 3 [place] 23 (three) Medical times Branch daily. apixaban Yes 2.5mg Take 2.5 Univ ers (ELIQUIS) 7-02 mg by ity of 2.5 mg 18:08: mouth 2 [place] tablet 23 (two) Medical times Branch daily. omeprazole Yes 40mg Take 40 mg U nivers 40 mg 7-02 by mouth ity of capsule 18:08: daily. [place] [address] Medical Branch lisinopriL 0 Yes 5mg Take 5 mg Un alma 5 mg tablet 7-02 by mouth ity of 18:08: daily. [place] [address] Medical Branch finasteride Yes 5mg Take 5 mg U nivers 5 mg tablet 7-02 by mouth ity of 18:08: daily. [place] [address] Medical Branch amLODIPine Yes 10mg Take 10 mg U nivers 10 mg 7-02 by mouth ity of tablet 18:08: daily. [place] [address] Medical Branch aspirin 325 Yes 325mg Take 325 U nivers mg tablet 7-02 mg by ity of 18:08: mouth [place] 23 daily. Medical Branch valsartan-h Yes 1{tbl} Take 1 Un alma ydrochlorot 7-02 tablet by ity of hiazide 18:08: mouth [place] 160-12.5 mg 23 daily. Medica l per tablet Branch eszopiclone Yes 3mg Take 3 mg U nivers 3 mg tablet 7-02 by mouth ity of 18:08: at [place] [address] bedtime. Medical Branch cloNIDine Yes .1mg Take 0.1 Univ ers 0.1 mg 7-02 mg by ity of tablet 18:08: mouth 3 [place] 23 (three) Medical times Branch daily. apixaban Yes 2.5mg Take 2.5 Univ ers (ELIQUIS) 7-02 mg by ity of 2.5 mg 18:08: mouth 2 [place] tablet 23 (two) Medical times Branch daily. omeprazole Yes 40mg Take 40 mg U nivers 40 mg 7-02 by mouth ity of capsule 18:08: daily. [place] [address] Medical Branch lisinopriL 0 Yes 5mg Take 5 mg Un alma 5 mg tablet 7-02 by mouth ity of 18:08: daily. [place] 23 Medical Branch finasteride Yes 5mg Take 5 mg U nivers 5 mg tablet 7-02 by mouth ity of 18:08: daily. [place] [address] Medical Branch amLODIPine Yes 10mg Take 10 mg U nivers 10 mg 7-02 by mouth ity of tablet 18:08: daily. [place] [address] Medical Branch aspirin 325 Yes 325mg Take [...] 7-02 by mouth ity of 18:08: at [place] [address] bedtime. Medical Branch cloNIDine Yes .1mg Take 0.1 Univ ers 0.1 mg 7-02 mg by ity of tablet 18:08: mouth 3 [place] 23 (three) Medical times Branch daily. apixaban Yes 2.5mg Take 2.5 Univ ers (ELIQUIS) 7-02 mg by ity of 2.5 mg 18:08: mouth 2 [place] [facility] 23 (two) Medical times Branch daily. omeprazole Yes 40mg Take 40 mg U nivers 40 mg 7-02 by mouth ity of capsule 18:08: daily. [place] [address] Medical Branch lisinopriL Yes 5mg Take 5 mg Un alma 5 mg tablet 7-02 by mouth ity of 18:08: daily. [place] [address] Medical Branch finasteride Yes 5mg Take 5 mg U nivers 5 mg tablet 7-02 by mouth ity of 18:08: daily. [place] [address] Medical Branch amLODIPine Yes 10mg Take 10 mg U nivers 10 mg 7-02 by mouth ity of tablet 18:08: daily. [place] [address] Medical Branch aspirin 325 Yes 325mg Take 325 U nivers mg tablet 7-02 mg by ity of 18:08: mouth [place] 23 daily. Medical Branch valsartan-h Yes 1{tbl} Take 1 Un alma ydrochlorot 7-02 tablet by ity of hiazide 18:08: mouth [place] 160-12.5 mg 23 daily. Medica l per tablet Branch eszopiclone Yes 3mg Take 3 mg U nivers 3 mg tablet 7-02 by mouth ity of 18:08: at [place] [address] bedtime. Medical Branch cloNIDine Yes .1mg Take 0.1 Univ ers 0.1 mg 7-02 mg by ity of tablet 18:08: mouth 3 [place] 23 (three) Medical times Branch daily. apixaban Yes 2.5mg Take 2.5 Univ ers (ELIQUIS) 7-02 mg by ity of 2.5 mg 18:08: mouth 2 [facility] 23 (two) Medical times Branch daily. omeprazole Yes 40mg Take 40 mg U nivers 40 mg 7-02 by mouth ity of capsule 18:08: daily. [address] Branch lisinopriL Yes 5mg Take 5 mg Un alma 5 mg tablet 7-02 by mouth ity of 18:08: daily. [place] [address] Medical Branch finasteride Yes 5mg Take 5 mg U nivers 5 mg tablet 7-02 by mouth ity of 18:08: daily. [place] [address] Medical Branch amLODIPine Yes 10mg Take 10 mg U nivers 10 mg 7-02 by mouth ity of tablet 18:08: daily. [place] [address] Medical Branch aspirin 325 Yes 325mg Take 325 U nivers mg tablet 7-02 mg by ity of 18:08: mouth [place] 23 daily. Medical Branch valsartan-h Yes 1{tbl} Take 1 Un alma ydrochlorot 7-02 tablet by ity of hiazide 18:08: mouth [place] 160-12.5 mg 23 daily. Medica l per tablet Branch eszopiclone Yes 3mg Take 3 mg U nivers 3 mg tablet 7-02 by mouth ity of 18:08: at [place] [address] bedtime. Medical Branch cloNIDine Yes .1mg Take 0.1 Univ ers 0.1 mg 7-02 mg by ity of tablet 18:08: mouth 3 [place] 23 (three) Medical times Branch daily. apixaban Yes 2.5mg Take 2.5 Univ ers (ELIQUIS) 7-02 mg by ity of 2.5 mg 18:08: mouth 2 [place] tablet 23 (two) Medical times Branch daily. omeprazole Yes 40mg Take 40 mg U nivers 40 mg 7-02 by mouth ity of capsule 18:08: daily. [place] [address] Medical Branch lisinopriL 0 Yes 5mg Take 5 mg Un alma 5 mg tablet 7-02 by mouth ity of 18:08: daily. [place] [address] Medical Branch finasteride Yes 5mg Take 5 mg U nivers 5 mg tablet 7-02 by mouth ity of 18:08: daily. [place] [address] Medical Branch amLODIPine Yes 10mg Take 10 mg U nivers 10 mg 7-02 by mouth ity of tablet 18:08: daily. [place] [address] Medical Branch aspirin 325 Yes 325mg Take 325 U nivers mg tablet 7-02 mg by ity of 18:08: mouth [place] 23 daily. Medical Branch valsartan-h Yes 1{tbl} Take 1 Un alma ydrochlorot 7-02 tablet by ity of hiazide 18:08: mouth [place] 160-12.5 mg 23 daily. Medica l per tablet Branch eszopiclone Yes 3mg Take 3 mg U nivers 3 mg tablet 7-02 by mouth ity of 18:08: at [place] [address] bedtime. Medical Branch cloNIDine Yes .1mg Take 0.1 Univ ers 0.1 mg 7-02 mg by ity of tablet 18:08: mouth 3 [place] 23 (three) Medical times Branch daily. apixaban Yes 2.5mg Take 2.5 Univ ers (ELIQUIS) 7-02 mg by ity of 2.5 mg 18:08: mouth 2 [place] tablet 23 (two) Medical times Branch daily. omeprazole Yes 40mg Take 40 mg U nivers 40 mg 7-02 by mouth ity of capsule 18:08: daily. [place] [address] Medical Branch lisinopriL 0 Yes 5mg Take 5 mg Un alma 5 mg tablet 7-02 by mouth ity of 18:08: daily. [address] Branch finasteride Yes 5mg Take 5 mg U nivers 5 mg tablet 12-29 by mouth ity of 18:08: daily. [address] Branch Dutasteride Yes Take by Un alma -Tamsulosin 12-29 mouth. ity of 0.5-0.4 mg 18:08: [address] Branch Dutasteride Yes Take by Un alma -Tamsulosin 12-29 mouth. ity of 0.5-0.4 mg 18:08: [address] Branch Dutasteride Yes Take by Un alma -Tamsulosin 12-29 mouth. ity of 0.5-0.4 mg 18:08: [address] Branch Dutasteride Yes Take by Un alma -Tamsulosin 12-29 mouth. ity of 0.5-0.4 mg 18:08: [address] Branch Dutasteride Yes Take by Un alma -Tamsulosin 12-29 mouth. ity of 0.5-0.4 mg 18:08: [address] Branch Dutasteride Yes Take by Un alma -Tamsulosin 12-29 mouth. ity of 0.5-0.4 mg 18:08: [address] Branch Dutasteride Yes Take by Un alma -Tamsulosin 12-29 mouth. ity of 0.5-0.4 mg 18:08: [address] Branch Dutasteride Yes Take by Un alma -Tamsulosin 12-29 mouth. ity of 0.5-0.4 mg 18:08: [address] tamsulosin 2020- No .4mg QD Take [...] mouth daily [place] 4 [place] [id number] 50mg Q6H Take 50 mg M ethodi [...] QD 5 mg every Methodi (NORVASC) 5 -[address] mg tablet 00:00: 00:00 Hospita 00 :00 l amLODIPine Yes 10mg Take 10 mg U nivers 10 mg 7-19 by mouth ity of tablet 18:24: daily. [place] 36 Medical Branch aspirin 325 Yes 325mg [...] 7-19 by mouth ity of 18:24: at [place] [address] bedtime. Medical Branch amLODIPine Yes 10mg Take 10 mg U nivers 10 mg 7-19 by mouth ity of tablet 18:24: daily. [place] [address] Medical Branch aspirin 325 Yes 325mg Take [...] 7-19 by mouth ity of 18:24: at [place] [address] bedtime. Medical Branch Amlodipine Amlodipine Yes [address] Besylate [facility]ylate [facility] s [facility] Aspirin Aspirin Yes Daily [facility] (Aspir 81) (Aspir 81) Tal es - 81 Mg 81 Mg Patient TABLET.DR SHIPLEY.DR lino [facility] [place] Hydrochloro Hydrochloro Yes 12.[address] thiazide thiazide [facility] - (Hydrochlor (Hydrochlor P atient othiazide*) othiazide*) s 25 Mg 25 Mg Medical TABLET TABLET Center Tamsulosin Tamsulosin Yes .[address] Hcl Hcl [facility] - (Flomax*) (Flomax*) Patie nt 0.4 Mg CAP 0.4 Mg CAP [facility] Immunizations Ordered Immunization Filled Immunization Date Status Commen ts Source Name Name FLUZONE HIGH-DOSE PF 2021-04-23 Completed Meth odist 00:00:00 Hospital Vital Signs Vital Name Observation Time Observation Value Comments Source Systolic blood 2021-01-16 07:00:00 187 mm[Hg] Univer sity of pressure [facility] Diastolic blood 2021-01-16 07:00:00 90 mm[Hg] Unive rsity of pressure [facility] Heart rate 2021-01-16 07:00:00 76 /min [facility] [place] [facility] Respiratory rate 2021-01-16 07:00:00 20 /[facility] in 2021-01-16 07:00:00 97 /min [facility] Arterial blood by [facility] Pulse oximetry Branch Body temperature 2021-01-16 04:24:00 37.06 Ayana Univ [facility] [place] [facility] Body weight 2021-01-16 04:24:00 58.968 kg [facility] [place] [facility] BMI 2021-01-16 04:24:00 22.31 kg/m2 [facility] [place] [facility] Systolic blood 2021-01-11 02:55:00 175 mm[Hg] Univer sity of pressure [place] [facility] Diastolic blood 2021-01-11 02:55:00 85 mm[Hg] Unive rsity of pressure [place] [facility] Heart rate 2021-01-11 02:55:00 73 /min [facility] [place] [facility] Respiratory rate 2021-01-11 02:55:00 16 /min Univ ersity [facility] [place] [facility] Oxygen saturation in 2021-01-11 02:55:00 96 /min University of Arterial blood by [place] [facility] Pulse oximetry Branch Body temperature 2021-01-10 23:48:00 37.22 Ayana [facility] [place] [facility] Body weight 2021-01-10 23:48:00 58.968 kg [facility] [place] [facility] BMI 2021-01-10 23:48:00 22.31 kg/m2 [facility] [place] [facility] Systolic blood 2020-12-29 18:08:00 132 mm[Hg] Univer sity of pressure [place] [facility] Diastolic blood 2020-12-29 18:08:00 65 mm[Hg] Unive rsity of pressure [place] [facility] Heart rate 2020-12-29 18:03:00 65 /min [facility] [place] [facility] Body temperature 2020-12-29 18:03:00 36.44 Ayana Univ [facility] [place] [facility] Respiratory rate 2020-12-29 18:03:00 16 /min Univ ersity [facility] [place] [facility] Body height 2020-12-29 18:03:00 162.6 cm [facility] [place] [facility] Body weight 2020-12-29 18:03:00 59.013 kg [facility] [place] [facility] BMI 2020-12-29 18:03:00 22.33 kg/m2 [facility] [place] [facility] Oxygen saturation in 2020-12-29 18:03:00 98 /min University of Arterial blood by [place] [facility] Pulse oximetry Branch Systolic blood 2020-12-29 18:08:00 132 mm[Hg] Univer sity of pressure [facility] Diastolic blood 2020-12-29 18:08:00 65 mm[Hg] Unive rsity of [facility] Heart rate 2020-12-29 18:03:00 65 /min [facility] [place] [facility] Body temperature 2020-12-29 18:03:00 36.44 Ayana [facility] Respiratory rate 2020-12-29 18:03:00 16 /min [facility] Body height 2020-12-29 18:03:00 162.6 cm [facility] Body weight 2020-12-29 18:03:00 59.013 kg [facility] BMI 2020-12-29 18:03:00 22.33 kg/m2 [facility] Oxygen saturation in 2020-12-29 18:03:00 98 /min [facility] Arterial blood by [facility] Pulse oximetry [place] Oxygen saturation in 2021-07-13 18:02:00 94 /min [facility] Arterial blood by Pulse oximetry Heart rate 2021-07-13 17:59:00 74 /min [facility] Respiratory rate 2021-07-13 17:59:00 14 /min [facility] Systolic blood 2021-07-13 17:02:14 121 mm[Hg] [facility] pressure Diastolic blood 2021-07-13 17:02:14 63 mm[Hg] [facility] pressure Body temperature 2021-07-13 17:02:14 36.11 Ayana [facility] Body height 2021-07-08 22:41:00 162.6 cm [facility] Body weight 2021-07-08 22:41:00 58.968 kg [facility] BMI 2021-07-08 22:41:00 22.31 kg/m2 [facility] BP Diastolic 2020-09-28 12:46:00 76 mm[Hg] [facility] Patients [facility]ica [facility] [place] BP Systolic 2020-09-28 12:46:00 149 mm[Hg] [facility] Oxygen saturation by 2020-09-28 12:46:00 99 /min [facility] - Pulse oximetry Patients [facility] Heart Rate 2020-09-28 12:46:00 85 /min [facility] Respiratory rate 2020-09-28 12:46:00 22 /min [facility] Body Temperature 2020-09-28 12:46:00 97.7 [degF] [facility] Heart Rate 2020-09-28 08:42:00 81 /min [facility] Respiratory rate 2020-09-28 08:42:00 24 /min [facility] Body Temperature 2020-09-28 08:42:00 97.4 [degF] [facility] BP Diastolic 2020-09-28 08:42:00 60 mm[Hg] [facility] BP Systolic 2020-09-28 08:42:00 141 mm[Hg] [facility] Oxygen saturation by 2020-09-28 08:42:00 96 /min [facility] - Pulse oximetry Patients [facility] BP Diastolic 2020-09-28 08:36:00 60 mm[Hg] [facility] BP Systolic 2020-09-28 08:36:00 141 mm[Hg] [facility] - [facility] [facility] by 2020-09-28 08:36:00 96 /min [facility] Pulse oximetry Patients [facility] Heart Rate 2020-09-28 08:36:00 81 /min [facility] Respiratory rate 2020-09-28 08:36:00 24 /min [facility] Body Temperature 2020-09-28 08:36:00 97.4 [degF] [facility] Oxygen saturation by 2020-09-28 08:17:00 96 /min [facility] Pulse [facility] Patients [facility] Heart Rate 2020-09-28 08:17:00 80 /min [facility] Respiratory rate 2020-09-28 08:17:00 20 /min [facility] Oxygen saturation by 2020-09-28 07:49:00 96 /min [facility] Pulse [facility]xim[facility] Patients [facility] Heart Rate 2020-09-28 07:49:00 80 /min [facility] Respiratory rate 2020-09-28 07:49:00 20 /min [facility] BP Diastolic 2020-09-28 04:00:00 41 mm[Hg] [facility] BP Systolic 2020-09-28 04:00:00 107 mm[Hg] [facility] Oxygen saturation by 2020-09-28 04:00:00 96 /min [facility] Pulse [facility]xim[facility] Patients [facility] Heart Rate 2020-09-28 04:00:00 85 /min [facility] Respiratory rate 2020-09-28 04:00:00 20 /min [facility] Body Temperature 2020-09-28 04:00:00 97.7 [degF] [facility] Oxygen saturation by 2020-09-28 02:48:00 98 /min [facility] Pulse [facility]xim[facility] Patients [facility] Heart Rate 2020-09-28 02:48:00 85 /min [facility] Respiratory rate 2020-09-28 02:48:00 18 /min [facility] Oxygen saturation by 2020-09-28 02:40:00 95 /min [facility] Pulse [facility]xim[facility] Patients [facility] Heart Rate 2020-09-28 02:40:00 87 /min [facility] Respiratory rate 2020-09-28 02:40:00 20 /min [facility] [place] BP Diastolic 2020-09-28 00:00:00 59 mm[Hg] [facility] BP Systolic 2020-09-28 00:00:00 135 [...] 103 /min [facility] Respiratory rate 2020-09-27 15:21:00 20 /min [facility] Body Temperature 2020-09-27 15:21:00 98.5 [degF] [facility] Oxygen saturation by 2020-09-27 14:45:00 99 /min [facility] Pulse oximetry Patients [facility] Heart Rate 2020-09-27 14:45:00 103 /min [facility] Respiratory rate 2020-09-27 14:45:00 20 /min [facility] Oxygen saturation by 2020-09-27 14:30:00 95 /min [facility] Pulse [facility]xim[facility] Patients [facility] Heart Rate 2020-09-27 14:30:00 103 /min [facility] Respiratory rate 2020-09-27 14:30:00 20 /min [facility] BP Diastolic 2020-09-27 11:13:00 56 mm[Hg] [facility] BP Systolic 2020-09-27 11:13:00 123 mm[Hg] [facility] Oxygen saturation by 2020-09-27 [...] 105 /min [facility] Respiratory rate 2020-09-27 07:58:00 [...] BP Systolic 2020-09-26 20:36:00 114 mm[Hg] [facility] Med[facility] [...] BP Systolic 2020-09-26 20:00:00 142 mm[Hg] [facility] Med[facility] [...] Body Temperature 2020-09-26 16:11:00 98.3 [degF] [facility] Oxygen saturation by 2020-09-26 13:10:00 96 /min [facility] Pulse [facility]xim[facility] Patients [facility] Heart Rate 2020-09-26 13:10:00 94 /min [facility] Respiratory rate 2020-09-26 13:10:00 16 /min [facility] Oxygen saturation by 2020-09-26 12:55:00 96 /min [facility] Pulse [facility]ximetry Patients [facility] Heart Rate 2020-09-26 12:55:00 94 /min [facility] Respiratory rate 2020-09-26 12:55:00 16 [...] 99 /min [facility] Respiratory rate 2020-09-26 09:22:00 26 /min [facility] Body Temperature 2020-09-26 09:22:00 97.4 [degF] [facility] Oxygen saturation by 2020-09-26 08:50:00 98 /min [facility] Pulse oximetry Patients [facility] Heart Rate 2020-09-26 08:50:00 99 /min [facility] Respiratory rate 2020-09-26 08:50:00 26 [...] Body Temperature 2020-09-26 04:00:00 97.0 [degF] [facility] Med[facility] [...] Body Temperature 2020-09-25 15:48:00 98.0 [degF] [facility] Med[facility] [...] 98 mm[Hg] [facility] Oxygen saturation by 2020-09-25 11:14:00 100 /min [facility] Pulse [facility]xim[facility] Patients [facility] Heart Rate 2020-09-25 11:14:00 98 /min [facility] Respiratory rate 2020-09-25 11:14:00 22 /min [facility] Body Temperature 2020-09-25 11:14:00 97.8 [degF] [facility] BP Diastolic 2020-09-25 09:18:00 62 mm[Hg] [facility] BP Systolic 2020-09-25 09:18:00 135 mm[Hg] [facility] Oxygen saturation by 2020-09-25 09:18:00 98 /min [facility] Pulse [facility]ximetry Patients [facility] Heart Rate 2020-09-25 09:18:00 96 /min [facility] Respiratory rate 2020-09-25 09:18:00 18 /min [facility] Body Temperature 2020-09-25 09:18:00 97.9 [degF] [facility] Oxygen saturation by 2020-09-25 08:35:00 98 /min [facility] Pulse [facility]ximetry Patients [facility] Heart Rate 2020-09-25 08:35:00 96 /min [facility] Respiratory rate 2020-09-25 08:35:00 18 /min [facility] Oxygen saturation by 2020-09-25 08:20:00 98 /min [facility] Pulse oximetry Patients [facility] Heart Rate 2020-09-25 08:20:00 96 /min [facility] Respiratory rate 2020-09-25 08:20:00 18 /min [...] BP Systolic 2020-09-25 04:00:00 121 mm[Hg] [facility] Oxygen saturation by 2020-09-25 [...] BP Systolic 2020-09-24 23:59:00 151 mm[Hg] [facility] Medica [...] 20 /min [facility] Oxygen saturation by 2020-09-24 20:10:00 [...] 112 /min [facility] Respiratory rate 2020-09-24 20:00:00 18 [...] 94 /min [facility] Respiratory rate 2020-09-24 14:00:00 16 /min [facility] Oxygen saturation by 2020-09-24 13:45:00 [...] 142 mm[Hg] [facility] Oxygen saturation by 2020-09-24 08:30:00 95 /min [facility] Pulse oximetry Patients [facility] Heart Rate 2020-09-24 08:30:00 94 /min [facility] Respiratory rate 2020-09-24 08:30:00 18 /min [facility] Body Temperature 2020-09-24 08:30:00 98.6 [degF] [facility] Oxygen saturation by 2020-09-24 06:50:00 100 /min [facility] Pulse oximetry Patients [facility] Heart Rate 2020-09-24 06:50:00 91 /min [facility] Respiratory rate 2020-09-24 06:50:00 16 /min [facility] Oxygen saturation by 2020-09-24 06:35:00 97 /min [facility] Pulse oximetry Patients [facility] Heart Rate 2020-09-24 06:35:00 87 /min [facility] Respiratory rate 2020-09-24 06:35:00 16 /min [facility] Body Temperature 2020-09-24 04:00:00 97.7 [degF] [facility] BP Diastolic 2020-09-24 04:00:00 64 mm[Hg] [facility] BP Systolic 2020-09-24 04:00:00 137 mm[Hg] [facility] Oxygen saturation by 2020-09-24 04:00:00 96 [...] Body Temperature 2020-09-23 20:00:00 97.9 [degF] [facility] Med[facility] [...] 142 mm[Hg] [facility] Oxygen saturation by 2020-09-23 [...] BP Systolic 2020-09-23 08:39:00 142 mm[Hg] [facility] Patients Medica [...] BP Diastolic 2020-09-22 20:04:00 81 mm[Hg] [facility] BP Systolic 2020-09-22 20:04:00 158 mm[Hg] [facility] Oxygen saturation by 2020-09-22 20:04:00 95 /min [facility] Pulse oximetry Patients [facility] Heart Rate 2020-09-22 20:04:00 95 /min [facility] Respiratory rate 2020-09-22 20:04:00 18 /min [facility] Body Temperature 2020-09-22 20:04:00 97.6 [degF] [facility] Patients Medica [...] Heart Rate 2020-09-22 19:47:00 95 /min [facility] Respiratory rate 2020-09-22 19:47:00 20 /min [facility] Oxygen saturation by 2020-09-22 15:48:00 100 /min [facility] Pulse oximetry Patients [facility] Heart Rate 2020-09-22 15:48:00 89 /min [facility] Respiratory rate 2020-09-22 15:48:00 24 /min [facility] BP Diastolic 2020-09-22 15:40:00 57 mm[Hg] [facility] BP Systolic 2020-09-22 15:40:00 143 mm[Hg] [facility] Oxygen saturation by 2020-09-22 15:40:00 98 /min [facility] Patients [facility] Heart Rate 2020-09-22 15:40:00 90 /min [facility] Respiratory rate 2020-09-22 15:40:00 22 /min [facility] Body Temperature 2020-09-22 15:40:00 97.6 [degF] [facility] Oxygen saturation by 2020-09-22 15:33:00 96 /min [facility] Patients [facility] Heart Rate 2020-09-22 15:33:00 88 /min [facility] Respiratory rate 2020-09-22 15:33:00 24 /min [facility] BP Diastolic 2020-09-22 11:44:00 65 mm[Hg] [facility] BP Systolic 2020-09-22 11:44:00 165 mm[Hg] [facility] Oxygen saturation by 2020-09-22 11:44:00 100 /min [facility]ulse [facility] Patients [facility] Heart Rate 2020-09-22 11:44:00 81 /min [facility] Respiratory rate 2020-09-22 11:44:00 23 [...] 98.0 [degF] [facility] BP Diastolic 2020-09-22 03:50:00 72 mm[Hg] [facility] BP Systolic 2020-09-22 03:50:00 144 mm[Hg] [facility] Oxygen saturation by 2020-09-22 03:50:00 97 /min [facility] Pulse oximetry Patients [facility] Heart Rate 2020-09-22 03:50:00 93 /min [facility] Respiratory rate 2020-09-22 03:50:00 24 /min [facility] Body Temperature 2020-09-22 03:50:00 97.9 [degF] [facility] Oxygen saturation by 2020-09-22 02:17:00 100 /min [facility] Pulse oximetry Patients [facility] Heart Rate 2020-09-22 02:17:00 92 /min [facility] Respiratory rate 2020-09-22 02:17:00 20 /min [facility] Oxygen saturation by 2020-09-22 02:02:00 100 /min [facility] Pulse oximetry Patients [facility] Heart Rate 2020-09-22 02:02:00 88 /min [facility] Respiratory rate 2020-09-22 02:02:00 20 /min [facility] BP Diastolic 2020-09-22 00:02:00 64 mm[Hg] [facility] BP Systolic 2020-09-22 00:02:00 139 mm[Hg] [facility] Oxygen saturation by 2020-09-22 00:02:00 100 /min [facility] Pulse oximetry Patients [facility] Heart Rate 2020-09-22 00:02:00 72 /min [facility] Respiratory rate 2020-09-22 00:02:00 20 [...] 84 /min [facility] Respiratory rate 2020-09-21 20:07:00 24 /min [facility] [place] Body Temperature 2020-09-21 20:07:00 98.6 [degF] [facility] Oxygen saturation by 2020-09-21 20:02:00 97 /min [facility] Pulse oximetry Patients [facility] Heart Rate 2020-09-21 20:02:00 80 /min [facility] Respiratory rate 2020-09-21 20:02:00 18 /min [facility] BP Diastolic 2020-09-21 20:00:00 96 mm[Hg] [facility] BP Systolic 2020-09-21 20:00:00 135 mm[Hg] [facility] Oxygen saturation by 2020-09-21 20:00:00 [...] [facility] Respiratory rate 2020-09-21 16:00:00 18 /min [facility] Body Temperature 2020-09-21 16:00:00 98.4 [degF] [facility] BP Diastolic 2020-09-21 13:02:00 90 mm[Hg] [facility] BP Systolic 2020-09-21 13:02:00 201 mm[Hg] [facility] Oxygen saturation by 2020-09-21 13:02:00 96 /min [facility] Pulse oximetry Patients [facility] Heart Rate 2020-09-21 13:02:00 70 /min [facility] Respiratory rate 2020-09-21 13:02:00 18 /min [facility] Body Temperature 2020-09-21 13:02:00 98.3 [degF] [facility] Oxygen saturation by 2020-09-21 10:15:00 96 /min [facility] Pulse oximetry Patients [facility] Heart Rate 2020-09-21 10:15:00 72 /min [facility] Respiratory rate 2020-09-21 10:15:00 18 /min [facility] BP Diastolic 2020-09-21 09:08:00 63 mm[Hg] [facility] BP Systolic 2020-09-21 09:08:00 150 mm[Hg] [facility] Oxygen saturation by 2020-09-21 09:08:00 [...] Body Temperature 2020-09-21 08:58:00 98.0 [degF] [facility] BP Diastolic 2020-09-21 07:38:00 63 mm[Hg] [facility] BP Systolic 2020-09-21 07:38:00 150 mm[Hg] [facility] Oxygen saturation by 2020-09-21 07:38:00 95 /min [facility] Patients [facility] Heart Rate 2020-09-21 07:38:00 63 /min [facility] Respiratory rate 2020-09-21 07:38:00 17 /min [facility] Body Temperature 2020-09-21 07:38:00 98.0 [degF] [facility] BP Diastolic 2020-09-21 04:00:00 70 mm[Hg] [facility] BP Systolic 2020-09-21 04:00:00 149 mm[Hg] [facility] Patients Medica [...] BP Systolic 2020-09-20 20:00:00 155 mm[Hg] [facility] Patients Medica [...] 16 /min [facility] Oxygen saturation by 2020-09-20 19:45:00 96 /min [facility] Pulse oximetry Patients [facility] Heart Rate 2020-09-20 19:45:00 75 /min [facility] Respiratory rate 2020-09-20 19:45:00 18 /min [facility] BP Diastolic 2020-09-20 16:36:00 69 mm[Hg] [facility] BP Systolic 2020-09-20 16:36:00 155 mm[Hg] [facility] Oxygen saturation by 2020-09-20 16:36:00 97 /min [facility] Pulse oximetry Patients [facility] Heart Rate 2020-09-20 16:36:00 73 /min [facility] Respiratory rate 2020-09-20 16:36:00 21 /min [facility] Body Temperature 2020-09-20 16:36:00 98.3 [degF] [facility] BP Diastolic 2020-09-20 15:47:00 60 mm[Hg] [facility] BP Systolic 2020-09-20 15:47:00 133 mm[Hg] [facility] Oxygen saturation by 2020-09-20 15:47:00 94 /min [facility] Pulse oximetry Patients [facility] Heart Rate 2020-09-20 15:47:00 71 /min [facility] Respiratory rate 2020-09-20 15:47:00 19 /min [facility] Body Temperature 2020-09-20 15:47:00 98.1 [degF] [facility] BP Diastolic 2020-09-20 11:55:00 60 mm[Hg] [facility] BP Systolic 2020-09-20 11:55:00 [...] 145 mm[Hg] [facility] Oxygen saturation by 2020-09-20 09:06:00 99 /min [facility] Pulse oximetry Patients [facility] Heart Rate 2020-09-20 09:06:00 86 /min [facility] Respiratory rate 2020-09-20 09:06:00 19 /min [facility] Body Temperature 2020-09-20 09:06:00 98.4 [degF] [facility] BP Diastolic 2020-09-20 08:58:00 66 mm[Hg] [facility] BP Systolic 2020-09-20 08:58:00 145 mm[Hg] [facility] Oxygen saturation by 2020-09-20 [...] 145 mm[Hg] [facility] Oxygen saturation by 2020-09-20 08:55:00 99 /min [facility] Pulse oximetry Patients [facility] Heart Rate 2020-09-20 08:55:00 86 /min [facility] Respiratory rate 2020-09-20 08:55:00 19 /min [facility] Body Temperature 2020-09-20 08:55:00 98.4 [degF] [facility] BP Diastolic 2020-09-20 07:38:00 66 mm[Hg] [facility] BP Systolic 2020-09-20 07:38:00 145 mm[Hg] [facility] Oxygen saturation by 2020-09-20 07:38:00 99 /min [facility] Pulse oximetry Patients [facility] Heart Rate 2020-09-20 07:38:00 71 /min [facility] Respiratory rate 2020-09-20 07:38:00 19 /min [facility] Body Temperature 2020-09-20 07:38:00 98.4 [degF] [facility] Oxygen saturation by 2020-09-20 07:05:00 95 /min [facility] Pulse oximetry Patients [facility] Heart Rate 2020-09-20 07:05:00 82 /min [facility] Respiratory rate 2020-09-20 07:05:00 18 /min [facility] BP Diastolic 2020-09-20 04:00:00 61 mm[Hg] [facility] BP Systolic 2020-09-20 04:00:00 145 mm[Hg] [facility] Oxygen saturation by 2020-09-20 04:00:00 96 [...] BP Systolic 2020-09-19 15:41:00 157 mm[Hg] [facility] Patients Medica [...] BP Systolic 2020-09-19 12:14:00 177 mm[Hg] [facility] Patients Medica [...] Body Temperature 2020-09-19 11:26:00 98.6 [degF] [facility] Oxygen saturation by 2020-09-19 08:10:00 93 /min [facility] Pulse oximetry Patients [facility] Heart Rate 2020-09-19 08:10:00 97 /min [facility] Respiratory rate 2020-09-19 08:10:00 20 /min [facility] BP Diastolic 2020-09-19 07:37:00 91 mm[Hg] [facility] BP Systolic 2020-09-19 07:37:00 168 mm[Hg] [facility] Oxygen saturation by 2020-09-19 07:37:00 97 /min [facility] [...] BP Systolic 2020-09-19 07:17:00 168 mm[Hg] [facility] Oxygen saturation by 2020-09-19 07:17:00 97 /min [facility] Heart Rate 2020-09-19 07:17:00 83 /min [facility] Respiratory rate 2020-09-19 07:17:00 21 /min [facility] Body Temperature 2020-09-19 07:17:00 98.1 [degF] [facility] BP Diastolic 2020-09-19 05:03:00 97 mm[Hg] [facility] BP Systolic 2020-09-19 05:03:00 157 mm[Hg] [facility] Oxygen saturation by 2020-09-19 05:03:00 93 /min [facility] Heart Rate 2020-09-19 05:03:00 91 /min [facility] Respiratory rate 2020-09-19 05:03:00 18 /min [facility] Body Temperature 2020-09-19 05:03:00 91.0 [degF] [facility] BP Diastolic 2020-09-19 01:59:00 87 mm[Hg] [facility] BP Systolic 2020-09-19 01:59:00 200 mm[Hg] [facility] [place] Oxygen saturation by 2020-09-19 01:59:00 96 /min [facility] Heart Rate 2020-09-19 01:59:00 92 /min [facility] Respiratory rate 2020-09-19 01:59:00 18 /min [facility] Body Temperature 2020-09-19 01:59:00 97.7 [degF] [facility] BP Diastolic 2020-09-18 22:57:00 86 mm[Hg] [facility] BP Systolic 2020-09-18 22:57:00 158 mm[Hg] [facility] BP Systolic 2020-09-18 21:58:00 158 mm[Hg] [facility] Oxygen saturation by 2020-09-18 21:58:00 96 /min [facility] Heart Rate 2020-09-18 21:58:00 68 /min [facility] Respiratory rate 2020-09-18 21:58:00 18 /min [facility] Body Temperature 2020-09-18 21:58:00 97.7 [degF] [facility] [...] BP Systolic 2020-09-18 15:41:00 163 mm[Hg] [facility] [...] BP Systolic 2020-09-18 09:00:00 141 mm[Hg] [facility] [...] BP Systolic 2020-09-18 08:00:00 146 mm[Hg] [facility] [...] Body Temperature 2020-09-18 07:51:00 97.7 [degF] [facility] [...] saturation by 2020-09-18 07:00:00 97 /min [facility] [...] BP Systolic 2020-09-18 06:00:00 174 mm[Hg] [facility] [...] 86 /min [facility] Respiratory rate 2020-09-18 05:00:00 18 /min [facility] BP Diastolic 2020-09-18 04:00:00 74 mm[Hg] [facility] BP Systolic 2020-09-18 04:00:00 150 mm[Hg] [facility] Oxygen saturation by 2020-09-18 04:00:00 96 /min [facility] Heart Rate 2020-09-18 04:00:00 76 /min [facility] Respiratory rate 2020-09-18 04:00:00 17 /min [facility] BP Diastolic 2020-09-18 03:00:00 88 mm[Hg] [facility] BP Systolic 2020-09-18 03:00:00 157 mm[Hg] [facility] Oxygen saturation by 2020-09-18 03:00:00 97 /min [facility] Heart Rate 2020-09-18 03:00:00 89 /min [facility] Respiratory rate 2020-09-18 03:00:00 [...] BP Systolic 2020-09-18 00:00:00 144 mm[Hg] [facility] BP Systolic 2020-09-17 18:00:00 146 mm[Hg] [facility] Oxygen saturation by 2020-09-17 [...] BP Systolic 2020-09-17 17:00:00 134 mm[Hg] [facility] Oxygen saturation by 2020-09-17 [...] 171 mm[Hg] [facility] Oxygen saturation by 2020-09-17 [...] BP Systolic 2020-09-17 11:00:00 148 mm[Hg] [facility] Oxygen saturation by 2020-09-17 11:00:00 92 /min [facility] Heart Rate 2020-09-17 11:00:00 119 /min [facility] Respiratory rate 2020-09-17 11:00:00 39 /min [facility] BP Diastolic 2020-09-17 10:00:00 86 mm[Hg] [facility] BP Systolic 2020-09-17 10:00:00 181 mm[Hg] [facility] Heart Rate 2020-09-17 10:00:00 105 /min [facility] Respiratory rate 2020-09-17 10:00:00 38 /min [facility] BP Diastolic 2020-09-17 09:00:00 82 mm[Hg] [facility] BP Systolic 2020-09-17 09:00:00 175 mm[Hg] [facility] [place] Oxygen saturation by 2020-09-17 09:00:00 97 /min [facility] Heart Rate 2020-09-17 09:00:00 88 /min [facility] Respiratory rate 2020-09-17 09:00:00 17 /min [facility] Body Temperature 2020-09-17 09:00:00 97.6 [degF] [facility] [...] 159 mm[Hg] [facility] Oxygen saturation by 2020-09-17 [...] 160 mm[Hg] [facility] Oxygen saturation by 2020-09-17 [...] BP Systolic 2020-09-17 03:30:00 196 mm[Hg] [facility] BP Diastolic 2020-09-17 03:00:00 82 mm[Hg] [facility] BP Systolic 2020-09-17 03:00:00 188 mm[Hg] [facility] [...] BP Systolic 2020-09-17 02:00:00 154 mm[Hg] [facility] Oxygen saturation by 2020-09-17 02:00:00 95 /min [facility] Heart Rate 2020-09-17 02:00:00 88 /min [facility] Respiratory rate 2020-09-17 02:00:00 18 [...] 88 /min [facility] Respiratory rate 2020-09-17 01:00:00 15 /min [facility] BP Diastolic 2020-09-17 00:00:00 76 mm[Hg] [facility] BP Systolic 2020-09-17 00:00:00 171 mm[Hg] [facility] Oxygen saturation by 2020-09-17 00:00:00 96 /min [facility] Heart Rate 2020-09-17 00:00:00 92 /min [facility] Respiratory rate 2020-09-17 00:00:00 26 [...] BP Systolic 2020-09-16 22:12:00 137 mm[Hg] [facility] Heart Rate 2020-09-16 22:12:00 80 /min [facility] BP Diastolic 2020-09-16 22:06:00 82 mm[Hg] [facility] BP Systolic 2020-09-16 22:06:00 176 mm[Hg] [facility] Oxygen saturation by 2020-09-16 22:06:00 96 /min [facility] Heart Rate 2020-09-16 22:06:00 82 /min [facility] Respiratory rate 2020-09-16 22:06:00 18 /min [facility] BP Diastolic 2020-09-16 22:03:00 81 mm[Hg] [facility] BP Systolic 2020-09-16 22:03:00 201 mm[Hg] [facility] Oxygen saturation by 2020-09-16 22:03:00 96 /min [facility] Heart Rate 2020-09-16 22:03:00 84 /min [facility] Respiratory rate 2020-09-16 22:03:00 22 /min [facility] BP Diastolic 2020-09-16 22:00:00 86 mm[Hg] [facility] BP Systolic 2020-09-16 22:00:00 206 mm[Hg] [facility] Oxygen saturation by 2020-09-16 22:00:00 96 /min [facility] Heart Rate 2020-09-16 22:00:00 86 /min [facility] Respiratory rate 2020-09-16 22:00:00 19 /min [facility] BP Diastolic 2020-09-16 21:01:00 69 mm[Hg] [facility] BP Systolic 2020-09-16 21:01:00 153 mm[Hg] [facility] Oxygen saturation by 2020-09-16 21:01:00 96 /min [facility] Heart Rate 2020-09-16 21:01:00 85 /min [facility] Respiratory rate 2020-09-16 21:01:00 17 /min [facility] BP Diastolic 2020-09-16 20:44:00 111 mm[Hg] [facility] BP Systolic 2020-09-16 20:44:00 141 mm[Hg] [facility] Oxygen saturation by 2020-09-16 20:44:00 96 /min [facility] Heart Rate 2020-09-16 20:44:00 84 /min [facility] Respiratory rate 2020-09-16 20:44:00 21 /min [facility] Body Temperature 2020-09-16 20:44:00 98.0 [degF] [facility] BP Diastolic 2020-09-16 20:42:00 111 mm[Hg] [facility] BP Systolic 2020-09-16 20:42:00 141 mm[Hg] [facility] Heart Rate 2020-09-16 20:42:00 84 [...] BP Systolic 2020-09-16 20:00:00 185 mm[Hg] [facility] Oxygen saturation by 2020-09-16 20:00:00 96 /min [facility] Heart Rate 2020-09-16 20:00:00 96 /min [facility] Respiratory rate 2020-09-16 20:00:00 21 /min [facility] Body Temperature 2020-09-16 20:00:00 98.0 [degF] [facility] Oxygen saturation by 2020-09-16 19:40:00 96 /min [facility] Heart Rate 2020-09-16 19:40:00 105 /min [facility] Respiratory rate 2020-09-16 19:40:00 27 /min [facility] BP Diastolic 2020-09-16 16:00:00 90 mm[Hg] [facility] BP Systolic 2020-09-16 16:00:00 175 mm[Hg] [facility] Oxygen saturation by 2020-09-16 16:00:00 96 /min [facility] Heart Rate 2020-09-16 16:00:00 108 /min [facility] Respiratory rate 2020-09-16 16:00:00 36 /min [facility] Body Temperature 2020-09-16 16:00:00 98.5 [degF] [facility] BP Diastolic 2020-09-16 13:00:00 73 mm[Hg] [facility] BP Systolic 2020-09-16 13:00:00 149 mm[Hg] [facility] Oxygen saturation by 2020-09-16 13:00:00 2 /min [facility] Heart Rate 2020-09-16 13:00:00 90 /min [facility] Respiratory rate 2020-09-16 13:00:00 15 /min [facility] BP Diastolic 2020-09-16 12:00:00 88 mm[Hg] [facility] BP Systolic 2020-09-16 12:00:00 174 mm[Hg] [facility] Oxygen saturation by 2020-09-16 12:00:00 94 /min [facility] Heart Rate 2020-09-16 12:00:00 101 /min [facility] Respiratory rate 2020-09-16 12:00:00 32 /min [facility] Body Temperature 2020-09-16 12:00:00 97.8 [degF] [facility] Oxygen saturation by 2020-09-16 11:00:00 96 /min [facility] Heart Rate 2020-09-16 11:00:00 79 /min [facility] Respiratory rate 2020-09-16 11:00:00 19 /min [facility] BP Diastolic 2020-09-16 11:00:00 81 mm[Hg] [facility] BP Systolic 2020-09-16 11:00:00 186 mm[Hg] [facility] BP Diastolic 2020-09-16 10:00:00 82 [...] [facility] Heart Rate 2020-09-16 09:00:00 82 /min [...] BP Systolic 2020-09-16 05:00:00 150 mm[Hg] [facility] Oxygen saturation by 2020-09-16 [...] 139 mm[Hg] [facility] Oxygen saturation by 2020-09-16 [...] Body Temperature 2020-09-16 03:00:00 98.5 [degF] [facility] BP Diastolic 2020-09-16 02:00:00 66 mm[Hg] [facility] BP Systolic 2020-09-16 02:00:00 140 mm[Hg] [facility] [...] BP Systolic 2020-09-16 01:00:00 164 mm[Hg] [facility] [...] BP Diastolic 2020-09-15 23:00:00 59 mm[Hg] [facility] BP Systolic 2020-09-15 23:00:00 143 mm[Hg] [facility] Oxygen saturation by 2020-09-15 23:00:00 95 /min [facility] Heart Rate 2020-09-15 23:00:00 79 /min [facility] Respiratory rate 2020-09-15 23:00:00 18 /min [facility] BP Diastolic 2020-09-15 22:00:00 55 mm[Hg] [facility] BP Systolic 2020-09-15 22:00:00 133 mm[Hg] [facility] Oxygen saturation by 2020-09-15 [...] 17 /min [facility] Oxygen saturation by 2020-09-15 20:50:00 94 /min [facility] Heart Rate 2020-09-15 20:50:00 81 /min [facility] Respiratory rate 2020-09-15 20:50:00 18 /min [facility] BP Diastolic 2020-09-15 20:00:00 56 mm[Hg] [facility] BP Systolic 2020-09-15 20:00:00 165 mm[Hg] [facility] Oxygen saturation by 2020-09-15 20:00:00 97 /min [facility] Heart Rate 2020-09-15 20:00:00 76 /min [facility] Respiratory rate 2020-09-15 20:00:00 22 /min [facility] Oxygen saturation by 2020-09-15 19:00:00 [...] BP Systolic 2020-09-15 18:00:00 154 mm[Hg] [facility] Oxygen saturation by 2020-09-15 [...] 154 mm[Hg] [facility] Oxygen saturation by 2020-09-15 17:00:00 95 /min [facility] Heart Rate 2020-09-15 17:00:00 71 /min [facility] Respiratory rate 2020-09-15 17:00:00 18 /min [facility] BP Diastolic 2020-09-15 16:00:00 75 mm[Hg] [facility] BP Systolic 2020-09-15 16:00:00 159 mm[Hg] [facility] Oxygen saturation by 2020-09-15 16:00:00 94 /min [facility] Heart Rate 2020-09-15 16:00:00 75 /min [facility] Respiratory rate 2020-09-15 16:00:00 16 /min [facility] BP Diastolic 2020-09-15 15:14:00 71 mm[Hg] [facility] BP Systolic 2020-09-15 15:14:00 169 mm[Hg] [facility] Oxygen saturation by 2020-09-15 [...] 176 mm[Hg] [facility] Oxygen saturation by 2020-09-15 14:50:00 100 /min [facility] Heart Rate 2020-09-15 14:50:00 81 /min [facility] Respiratory rate 2020-09-15 14:50:00 18 /min [facility] BP Diastolic 2020-09-15 14:40:00 94 mm[Hg] [facility] BP Systolic 2020-09-15 14:40:00 200 mm[Hg] [facility] Oxygen saturation by 2020-09-15 14:40:00 97 /min [facility] Heart Rate 2020-09-15 14:40:00 96 /min [facility] Respiratory rate 2020-09-15 14:40:00 16 /min [facility] BP Diastolic 2020-09-15 14:25:00 96 mm[Hg] [facility] BP Systolic 2020-09-15 14:25:00 175 mm[Hg] [facility] Oxygen saturation by 2020-09-15 [...] 70 /min [facility] Respiratory rate 2020-09-15 11:14:00 18 /min [facility] Body Temperature 2020-09-15 11:14:00 97.6 [degF] [facility] BP Diastolic 2020-09-15 08:52:00 75 mm[Hg] [facility] BP Systolic 2020-09-15 08:52:00 171 mm[Hg] [facility] Oxygen saturation by 2020-09-15 08:52:00 92 /min [facility] [...] BP Systolic 2020-09-15 07:45:00 171 mm[Hg] [facility] [...] BP Systolic 2020-09-15 00:00:00 140 mm[Hg] [facility] [...] BP Systolic 2020-09-14 15:47:00 155 mm[Hg] [facility] [...] BP Systolic 2020-09-14 11:15:00 165 mm[Hg] [facility] [...] BP Diastolic 2020-09-14 07:49:00 67 mm[Hg] [facility] BP Systolic 2020-09-14 07:49:00 166 mm[Hg] [facility] Oxygen saturation by 2020-09-14 07:49:00 93 /min [facility] Heart Rate 2020-09-14 07:49:00 88 /min [facility] Respiratory rate 2020-09-14 07:49:00 18 /min [facility] Body Temperature 2020-09-14 07:49:00 97.9 [degF] [facility] BP Diastolic 2020-09-14 07:31:00 67 mm[Hg] [facility] BP Systolic 2020-09-14 07:31:00 166 mm[Hg] [facility] Oxygen saturation by 2020-09-14 07:31:00 93 /min [facility] Heart Rate 2020-09-14 07:31:00 88 /min [facility] Respiratory rate 2020-09-14 07:31:00 18 /min [facility] Body Temperature 2020-09-14 07:31:00 97.9 [degF] [facility] BP Diastolic 2020-09-14 04:00:00 74 [...] 140 mm[Hg] [facility] Oxygen saturation by 2020-09-13 [...] Respiratory rate 2020-09-12 22:18:00 18 /min [facility] Body Temperature 2020-09-12 22:18:00 97.9 [degF] [facility] BP Diastolic 2020-09-12 20:23:00 92 mm[Hg] [facility] BP Systolic 2020-09-12 20:23:00 150 mm[Hg] [facility] Oxygen saturation by 2020-09-12 20:23:00 96 /min [facility] - Pulse oximetry Patients [facility] Heart Rate 2020-09-12 20:23:00 95 /min [facility] Patients [facility] Respiratory rate 2020-09-12 20:23:00 18 /min [facility] Body Temperature 2020-09-12 20:23:00 97.9 [degF] [facility] - Patients [facility] Oxygen saturation by 2020-09-12 20:11:00 96 /min [facility] Pulse oximetry Patients [facility] Oxygen saturation by 2020-09-12 18:25:00 98 /min [facility] Pulse oximetry Patients [facility] Oxygen saturation by 2020-09-12 15:35:00 98 /min [facility] Pulse oximetry Patients [facility] Procedures Procedure Date / Time Performing Clinician Source Performed XR CHEST 1 VW PORTABLE 2021-07-12 01:01:53 Freeman Crabtree [facility] COVID-19 ANTI-SPIKE IGG 2021-07-11 10:41:00 [facility] ANTIBODY TITER COVID-19 SEROLOGY PATIENT 2021-07-11 10:41:00 [facility] SURVEILLANCE HC COMPLETE BLD COUNT 2021-07-11 10:41:00 [facility] W/AUTO DIFF BASIC METABOLIC PANEL 2021-07-11 10:41:00 [facility] ESTIMATED GFR 2021-07-11 10:41:00 [facility] URINE CULTURE 2021-07-11 06:57:00 [facility] AND 2021-07-11 04:07:00 Latrell Sharpe [facility] MICROSCOPY, WITH REFLEX TO CULTURE POC GLUCOSE 2021-07-11 00:27:00 [facility] POC GLUCOSE 2021-07-10 14:52:00 [facility] HC COMPLETE BLD COUNT 2021-07-10 10:51:00 [facility] W/AUTO DIFF BASIC METABOLIC PANEL 2021-07-10 10:51:00 [facility] ESTIMATED GFR 2021-07-10 10:51:00 [facility] POC GLUCOSE 2021-07-10 02:09:00 [facility] CT CHEST WO CONTRAST 2021-07-09 21:47:19 [facility] HC COMPLETE BLD COUNT 2021-07-09 11:14:00 [facility] W/AUTO DIFF BASIC METABOLIC PANEL 2021-07-09 11:14:00 [facility] ESTIMATED GFR 2021-07-09 11:14:00 [facility] BLOOD CULTURE, AEROBIC & 2021-07-09 08:54:00 [facility] R. TROPONIN T 2021-07-09 07:57:00 [facility] THYROID STIMULATING 2021-07-09 07:57:00 [facility] HORMONE T4, FREE 2021-07-09 07:57:00 [facility] LIPID PANEL 2021-07-09 07:57:00 [facility] INTERLEUKIN 6 2021-07-09 07:57:00 [facility] CRP HIGH SENSITIVITY 2021-07-09 07:57:00 [facility] LDH 2021-07-09 07:57:00 [facility] D-DIMER 2021-07-09 07:57:00 [facility] PROCALCITONIN 2021-07-09 07:57:00 [facility] PROTHROMBIN TIME WITH INR 2021-07-09 07:57:00 [facility] SEDIMENTATION RATE 2021-07-09 07:57:00 [facility] FERRITIN LEVEL 2021-07-09 07:57:00 [facility] ECG 12-LEAD 2021-07-09 06:58:43 [facility] XR CHEST 1 VW PORTABLE 2021-07-09 05:32:00 [facility] Trav R. TROPONIN T 2021-07-09 04:50:00 [facility] CT HEAD WO CONTRAST 2021-07-09 01:50:00 [facility] Trav RChun COVID-19 QUALITATIVE 2021-07-09 01:34:00 [facility] RT-PCR Trav Lockhart COVID-19 OMICRON VARIANT 2021-07-09 01:34:00 [facility] QUALITATIVE RT-PCR Trav RChun HC COMPLETE BLD COUNT 2021-07-09 01:34:00 [facility] W/AUTO DIFF Trav RChun PROTHROMBIN TIME WITH INR 2021-07-09 01:34:00 [facility] Trav RChun PARTIAL THROMBOPLASTIN 2021-07-09 01:34:00 [facility] TIME (PTT) Trav RChun BASIC METABOLIC PANEL 2021-07-09 01:34:00 [facility] Trav R. TROPONIN T 2021-07-09 01:34:00 [facility] B NATRIURETIC PEPTIDE 2021-07-09 01:34:00 [facility] Trav R. ESTIMATED GFR 2021-07-09 01:34:00 Hugo [facility] barry Ravi RChun ECG 12-LEAD 2021-07-08 22:51:26 Hugo [facility] barry Ravi RChun CT RENAL STONE PROTOCOL 2021-07-01 18:38:22 [facility] URINALYSIS 2021-07-01 18:13:00 [facility] HC COMPLETE BLD COUNT 2021-04-23 10:03:00 [facility] W/AUTO DIFF BASIC METABOLIC PANEL 2021-04-23 10:03:00 [facility] ESTIMATED GFR 2021-04-23 10:03:00 [facility] CT CARDIAC OVERREAD 2021-04-20 15:36:45 [facility] CV CTA CORONARY ARTERIES 2021-04-20 15:36:00 Bebeto [facility] W CONTRAST HC COMPLETE BLD COUNT 2021-04-20 11:45:00 [facility] W/AUTO DIFF BASIC METABOLIC PANEL 2021-04-20 11:45:00 [facility] ESTIMATED GFR 2021-04-20 11:45:00 [facility] POC GLUCOSE 2021-04-19 13:28:00 [facility] CV CARDIAC PET STRESS 2021-04-19 13:18:51 [facility] TEST CV CARDIAC PET MYOCARDIAL 2021-04-19 13:18:51 Bebeto [facility] PERFUSION IMAGING TROPONIN 2021-04-19 09:43:00 Jaclyn Tate Ho spital BASIC METABOLIC PANEL 2021-04-19 09:43:00 [facility] ESTIMATED GFR 2021-04-19 09:43:00 Rafy Tateammilan Burns spital TTE LIMITED W CONTRAST, W 2021-04-18 17:20:00 Bebeto [facility] DOPPLER ([id number]) HC COMPLETE BLD COUNT 2021-04-18 14:31:00 [facility] W/AUTO DIFF BASIC METABOLIC PANEL 2021-04-18 14:31:00 [facility] ESTIMATED GFR 2021-04-18 14:31:00 [facility] B NATRIURETIC PEPTIDE 2021-04-18 09:20:00 [facility] HC COMPLETE BLD COUNT 2021-04-16 08:35:00 [facility] W/AUTO DIFF BASIC METABOLIC PANEL 2021-04-16 08:35:00 [facility] ESTIMATED GFR 2021-04-16 08:35:00 [facility] POC GLUCOSE 2021-04-15 15:09:00 [facility] BASIC METABOLIC PANEL 2021-04-14 09:00:00 [facility] ESTIMATED GFR 2021-04-14 09:00:00 [facility] HC COMPLETE BLD COUNT 2021-04-14 08:40:00 [facility] W/AUTO DIFF PARTIAL THROMBOPLASTIN 2021-04-14 08:40:00 Rafy Tateammed [facility] TIME (PTT) PARTIAL THROMBOPLASTIN 2021-04-13 22:47:00 Bebeto [facility] TIME (PTT) HC COMPLETE BLD COUNT 2021-04-13 15:52:00 [facility] W/AUTO DIFF HC COMPLETE BLD COUNT 2021-04-13 11:34:00 [facility] W/AUTO DIFF SMEAR REVIEW 2021-04-13 11:34:00 [facility] HC COMPLETE BLD COUNT 2021-04-13 09:55:00 [facility] W/AUTO DIFF BASIC METABOLIC PANEL 2021-04-13 09:55:00 [facility] B NATRIURETIC PEPTIDE 2021-04-13 09:55:00 [facility] ESTIMATED GFR 2021-04-13 09:55:00 [facility] PARTIAL THROMBOPLASTIN 2021-04-13 09:55:00 Jaclyn Tate [facility] TIME (PTT) TROPONIN 2021-04-13 09:00:00 [facility] THROMBOPLASTIN 2021-04-13 02:20:00 Bebeto [facility] TIME (PTT) TROPONIN 2021-04-12 23:00:00 Char Palomo spital TROPONIN 2021-04-12 15:34:00 [facility] PROTHROMBIN TIME WITH INR 2021-04-12 15:34:00 Attzulay [facility] PARTIAL THROMBOPLASTIN 2021-04-12 15:34:00 Attzulay [facility] TIME (PTT) ANTI XA APIXABAN 2021-04-12 15:34:00 Rafy Tateammilan Burns ospital TTE COMPLETE, WO 2021-04-12 14:14:00 Rafy Tateammilan Burns ospital CONTRAST, W DOPPLER ([id number]) TROPONIN 2021-04-12 09:21:00 Char Palomo spital B NATRIURETIC PEPTIDE 2021-04-12 09:21:00 Stacia Char [facility] MAGNESIUM LEVEL 2021-04-12 09:21:00 [facility] PHOSPHORUS LEVEL 2021-04-12 09:21:00 [facility] X[facility] CHEST 1 VW PORTABLE 2021-04-12 08:46:00 [facility] ECG 12-LEAD 2021-04-12 08:03:09 [facility] COVID-19 ANTI-SPIKE IGG 2021-04-12 08:01:00 [facility] ANTIBODY TITER COVID-19 SEROLOGY PATIENT 2021-04-12 08:01:00 [facility] SURVEILLANCE HC COMPLETE BLD COUNT 2021-04-12 08:01:00 [facility] W/AUTO DIFF BASIC METABOLIC PANEL 2021-04-12 08:01:00 [facility] LIPID PANEL 2021-04-12 08:01:00 [facility] THYROID STIMULATING 2021-04-12 08:01:00 [facility] HORMONE T4, FREE 2021-04-12 08:01:00 [facility] ESTIMATED GFR 2021-04-12 08:01:00 [facility] RESPIRATORY PATHOGEN 2021-04-12 07:27:00 Char Palomo [facility] PANEL WITH COVID-19 RT-PCR US DUPLEX VENOUS LOWER 2021-03-10 01:23:00 [facility] EXTREMITY BILATERAL XR CHEST 1 VW 2021-03-10 00:19:00 CelestinOfelia spital COMPREHENSIVE METABOLIC 2021-03-10 00:17:00 [facility] PANEL CBC WITH PLATELET AND 2021-03-10 00:17:00 [facility] DIFFERENTIAL B NATRIURETIC PEP, I-STAT 2021-03-10 00:17:00 [facility] TROPONIN, I-STAT 2021-03-10 00:17:00 Ofelia Celestinist H ospital ESTIMATED GFR 2021-03-10 00:17:00 Fawad Ofeliamolly HerreraAlevism Ho spital MANUAL DIFFERENTIAL 2021-03-10 00:17:00 [facility] ECG ED PRELIMINARY 2021-03-10 00:16:14 [facility] INTERPRETATION ECG 12-LEAD 2021-03-09 23:55:17 [facility] Alevism Ho spital HC COMPLETE BLD COUNT 2021-02-23 09:51:00 [facility] W/AUTO DIFF BASIC METABOLIC PANEL 2021-02-23 09:51:00 [facility] ESTIMATED GFR 2021-02-23 09:51:00 [facility] HC COMPLETE BLD COUNT 2021-02-22 09:32:00 [facility] W/AUTO DIFF BASIC METABOLIC PANEL 2021-02-22 09:32:00 [facility] ESTIMATED GFR 2021-02-22 09:32:00 [facility] HC COMPLETE BLD COUNT 2021-02-21 09:50:00 [facility] W/AUTO DIFF BASIC METABOLIC PANEL 2021-02-21 09:50:00 [facility] LIPID PANEL 2021-02-21 09:50:00 [facility] ESTIMATED GFR 2021-02-21 09:50:00 [facility] COVID-19 ANTI-SPIKE IGG 2021-02-20 23:58:00 [facility] ANTIBODY TITER COVID-19 SEROLOGY PATIENT 2021-02-20 23:58:00 [facility] SURVEILLANCE THYROID STIMULATING 2021-02-20 23:58:00 [facility] HORMONE T4, FREE 2021-02-20 23:58:00 [facility] FERRITIN LEVEL 2021-02-20 23:58:00 [facility] LDH 2021-02-20 23:58:00 [facility] SEDIMENTATION RATE 2021-02-20 23:58:00 [facility] CRP HIGH SENSITIVITY 2021-02-20 23:58:00 [facility] INTERLEUKIN 6 2021-02-20 23:58:00 [facility] PROCALCITONIN 2021-02-20 23:58:00 [facility] D-DIMER 2021-02-20 23:58:00 [facility] PROTHROMBIN TIME WITH INR 2021-02-20 23:58:00 [facility] TROPONIN, I-STAT 2021-02-20 15:35:00 [facility] COVID-19 QUALITATIVE 2021-02-20 14:41:00 [facility] ANGIOGRAM PE CHEST 2021-02-20 13:52:50 Osmel Fowler [facility] US DUPLEX VENOUS LOWER 2021-02-20 12:59:12 [facility] RIGHT Narendra URINALYSIS 2021-02-20 12:35:00 [facility] Narendra XR CHEST 1 VW PORTABLE 2021-02-20 12:15:13 Isaac Quiles [facility] Narendra BASIC METABOLIC PANEL 2021-02-20 12:10:00 Isaac Quiles [facility] Narendra ESTIMATED GFR 2021-02-20 12:10:00 Isaac Quiles spital Narendra RESPIRATORY PATHOGEN 2021-02-20 12:05:00 Kb [facility] PANEL WITH COVID-19 Narendra RT-PCR COMPREHENSIVE METABOLIC 2021-02-20 11:55:00 Isaac Quiles [facility] PANEL Narendra CBC WITH PLATELET AND 2021-02-20 11:55:00 Isaac Quiles [facility] DIFFERENTIAL Narendra CREATINE KINASE, TOTAL 2021-02-20 11:55:00 Isaac Quiles [facility] ([facility] Narendra TROPONIN, I-STAT 2021-02-20 11:55:00 Vadim Calix [facility] ESTIMATED GFR 2021-02-20 11:55:00 Isaac Quiles spital Narendra PROTHROMBIN TIME WITH 2021-02-20 11:55:00 Isaac Quiles [facility] INR, I-STAT Narendra MANUAL DIFFERENTIAL 2021-02-20 11:55:00 Isaac Quiles [facility] Narendra ECG 12-LEAD 2021-02-20 11:33:15 Isaac Quiles spital Narendra ECG ED PRELIMINARY 2021-02-20 11:32:10 Isaac Quiles [facility] INTERPRETATION Narendra PHYSICIAN ORDERS 2021-01-24 05:01:00 Doctor Bryson, [facility] Name Medical Branch CT CERVICAL SPINE WO 2021-01-16 05:11:[address] [facility] CONTRAST Medical Branch CT HEAD WO CONTRAST 2021-01-16 05:11:15 Mumtaz Swanson [facility] [place] NOTICE OF PRIVACY 2021-01-16 04:10:39 Doctor Bryson, [facility] PRACTICES [facility] CT HEAD WO CONTRAST 2021-01-11 01:54:48 Sushma Juarez [facility] [place] CONSENT/REFUSAL FOR 2021-01-10 23:21:01 Doctor Bryson, [facility] DIAGNOSIS AND TREATMENT [facility] NOTICE OF PRIVACY 2020-12-29 19:06:49 Doctor Unassigned, [facility] PRACTICES [facility] CONSENT/REFUSAL FOR 2020-12-29 19:06:22 Doctor Unassigned, [facility] DIAGNOSIS AND TREATMENT [facility] ASSIGNMENT OF BENEFITS 2020-12-29 19:06:04 Doctor Unassigned, [facility] ASSIGNMENT OF BENEFITS 2020-12-29 17:51:14 Doctor Unassigned, [facility] HC COMPLETE BLD COUNT 2020-12-03 10:00:00 [facility] W/AUTO DIFF BASIC METABOLIC PANEL 2020-12-03 09:00:00 [facility] ESTIMATED GFR 2020-12-03 09:00:00 [facility] MRI BRAIN WO CONTRAST 2020-12-02 17:48:00 [facility] BASIC METABOLIC PANEL 2020-12-02 08:52:00 [facility] ESTIMATED GFR 2020-12-02 08:52:00 [facility] HC COMPLETE BLD COUNT 2020-12-02 08:38:00 [facility] W/AUTO DIFF US CAROTID DUPLEX 2020-12-01 20:45:00 [facility] BILATERAL TTE COMPLETE, WO 2020-12-01 16:39:21 [facility] CONTRAST, W DOPPLER ([id number]) HC COMPLETE BLD COUNT 2020-12-01 09:30:00 [facility] W/AUTO DIFF BASIC METABOLIC PANEL 2020-12-01 09:00:00 [facility] ESTIMATED GFR 2020-12-01 09:00:00 [facility] LIPID PANEL 2020-12-01 02:15:00 [facility] THYROID STIMULATING 2020-12-01 02:15:00 [facility] HORMONE T4, FREE 2020-12-01 02:15:00 [facility] TROPONIN 2020-12-01 02:15:00 [facility] HEMOGLOBIN A1C 2020-12-01 01:15:00 [facility] URINALYSIS, AUTOMATED 2020-11-30 22:23:00 [facility] WITH MICROSCOPY Олег COVID-19 QUALITATIVE 2020-11-30 21:44:00 [facility] RT-PCR [facility] CT HEAD WO CONTRAST 2020-11-30 19:03:[address] [facility] [address] ANGIOGRAM PE CHEST 2020-11-30 19:03:13 [facility] ECG ED PRELIMINARY 2020-11-30 17:08:13 [facility] INTERPRETATION [facility] HC COMPLETE BLD COUNT 2020-11-30 16:15:00 [facility] W/AUTO DIFF [facility] PROTHROMBIN TIME WITH INR 2020-11-30 16:15:00 [facility] TH[facility]BOP[facility]IN 2020-11-30 16:15:00 [facility] TIME (PTT) [facility] COMPREHENSIVE METABOLIC 2020-11-30 16:15:00 [facility] PANEL [facility] TROPONIN 2020-11-30 16:15:00 [facility] B NATRIURETIC PEPTIDE 2020-11-30 16:15:00 [facility] ESTIMATED GFR 2020-11-30 16:15:00 [facility] D-DIMER 2020-11-30 16:15:00 Yacolt [place] Alevism H ospital [facility] ECG 12-LEAD 2020-11-30 15:58:05 [facility]ital Олег Computed tomography of 2020-09-20 00:00:00 RUSTAM Bruno - chest with contrast Patients [facility] Exploratory laparotomy 2020-09-15 00:00:00 RUSTAM Bruno - Patients [facility] Center CT of abdomen and pelvis 2020-03-02 00:00:[address] [facility] - without contrast Patients [facility] EXTERNAL PROVIDER RECORDS 2019-01-27 05:01:00 Doctor Unassigned, [facility] Plan of Care Planned Activity Planned Date Details Comments Source Future Scheduled 2021-08-08 65+ PNEUMOCOCCAL Methodi [facility] Test 13:10:32 VACCINE (1 of 4 - PCV13) [code = 65+ PNEUMOCOCCAL VACCINE (1 of 4 - PCV13)] Future Scheduled 2021-08-08 SHINGLES VACCINES (#1) M ethodi Hospital Test 13:10:32 [code = SHINGLES VACCINES (#1)] Future Scheduled 2021-08-08 COVID-19 VACCINE (3 - Me [facility] Test 13:10:32 Booster for Moderna series) [code = COVID-19 VACCINE (3 - Booster for Moderna series)] Encounters Start End Encounter Admission Attending Care Care Encounter Source Date/Time Date/Time Type Type Clinicians Facility Department ID 2021-04-30 Emergency [facility] [id number] Univers [facility] 2021-04-30 Emergency [facility] [id number] Univers 08:16:39 [facility] 2020-09-12 Inpatient [facility] [id number] [facility] 15:27:00 -[id number] [facility] 2021-09-16 2021-09-16 Emergency EM Thomas, HCACL TERRI [id number] [facility] 04:48:00 10:42:00 [facility] 2021-09-16 2021-09-16 Emergency EM Thomas, HCACL HCACL [id number] [facility] 04:48:00 10:42:00 Justice 13 [facility] 2021-09-05 2021-09-05 Emergency EM Thomas, HCACL TERRI [id number] [facility] 15:16:00 17:36:00 Justice [facility] 2021-09-05 2021-09-05 Emergency EM Thomas, HCACL HCACL [id number] [facility] 15:16:00 17:36:00 Justice 84 [facility] 2021-07-08 2021-07-13 [facility] Trav Arias2.84 0.1 [id number] Methodi 16:46:00 12:51:00 Encounter Vadim Calix 65312.1.[address] 3.430.2.7 Hospit a .3.488657 l .8 2021-07-08 2021-07-08 Travel 1.2.840.1 1.2.800.490 [id number] Methodi 00:00:00 00:00:[address] 3.430.2.7 0.2.7.3.698 Ho spita .3.770825 084.8 l .8 2021-07-01 2021-07-01 Emergency Renee, 1.2.840.1 [id number] Methodi 11:41:00 13:43:[address] 3.430.2.7 Hospit a .3.474854 l .8 2021-06-18 2021-06-18 Outpatient 2030_Biopsy [place] [id number] [place] 12:38:00 12:38:00 [id number] [facility] 2021-05-03 2021-05-03 Telephone Jessica 1.2.840.1 [id number] Methodi 00:00:00 00:00:00 Ros Fernandez 50440.1.[address] 3.430.2.7 Hospit a .3.431940 l .8 2021-04-11 2021-04-23 [facility] Anupam, 1.2.840.1 [id number] Methodi 23:25:00 17:41:00 Encounter Vadim Briscoe 89369.1.[address] 3.430.2.7 Hospit a .3.946022 l .8 2021-04-19 2021-04-19 [facility] Bebeto, 1.2.840.1 [id number] Methodi 07:00:00 23:59:00 Encounter Jaclyn 58420.1.1 627 s t 3.430.2.7 Hospit a .3.282006 l .8 2021-03-09 2021-03-09 Emergency Ofelia Celestin 1.2.840.1 [id number] Methodi 18:40:00 21:02:[address] 3.430.2.7 Hospit a .3.318573 l .8 2021-03-09 2021-03-09 Travel 1.2.840.1 1.2.009.261 [id number] Methodi 00:00:00 00:00:[address] 3.430.2.7 0.2.7.3.698 Ho spita .3.659903 084.8 l .8 2021-02-20 2021-02-23 [facility] 1.2.840.1 [id number] Methodi 06:07:00 13:24:00 Encounter Vadim Calix 93072.1.[address] 3.430.2.7 Hospit a .3.533738 l .8 2021-02-20 2021-02-20 Travel 1.2.840.1 1.2.776.561 [id number] Methodi 00:00:00 00:00:[address] 3.430.2.7 0.2.7.3.698 Ho spita .3.337491 084.8 l .8 2021-01-30 2021-01-30 Outpatient R HESHAM [facility] [id number] Univers 14:30:00 14:30:00 WONDIFUL ity o f [facility] 2021-01-24 2021-01-24 Land Conservation Specialist Carolyn, Fred Lab Main [facility] 1.2.8 40.114 [id number] Univers 15:50:12 16:05:12 Visit David Joe 350.1.13.1 0 itNati 4.2.7.2.686 [place] [id number] [address] 2021-01-24 2021-01-24 Outpatient R [facility] [id number] Univers 16:00:00 16:00:00 [id number] ity [facility] 2021-01-24 2021-01-24 Outpatient R ANTHONY [facility] [id number] Univers 16:00:00 16:00:00 DAVID [facility] 2021-01-24 2021-01-24 Orders Doctor DAVID 1.2.840.114 [id number] Univers 00:00:00 00:00:00 Only Unassigned, GREGORY 350.1.13.10 ity of Carlos [facility] 4.2.7.2.686 Flash as [id number] [facility] 009 Branch 2021-01-15 2021-01-16 Emergency [facility] 1.2.585.102 [id number] Univers 23:22:00 03:17:00 Mumtaz Tineo 350.1.13.10 i [place] 4[place]2.7.2.686 [place] [id number] [facility] 084 Branch 2021-01-10 2021-01-10 Emergency Sagar Holland [facility] 1.2.840.114 [id number] Univers 18:49:00 22:03:00 May Tineo 350.1.13.10 [place] 4[place]2.7.2.686 [place] [id number] [facility] 084 Branch 2020-12-29 2020-12-29 [facility] 1.2.840.114 [id number] Univers 14:04:19 23:59:00 Encounter Melody Tineo 350.1.13.10 [place] 4.2.7.2.686 [place] [phone] [facility] 807 Branch 2020-12-29 2020-12-29 [facility] 1.2.840.114 [id number] Univers 14:00:00 14:03:00 Encounter Melody Tineo 350.1.13.10 [place] 4[place]2.7.2.686 [place] [id number] [facility] 807 Branch 2020-12-29 2020-12-29 [id number] Univers 14:00:00 14:00:00 [facility] [id number] [facility] 2020-12-29 2020-12-29 [facility] 1.2.840.114 [id number] Univers 12:52:54 13:35:06 Visit Melody [facility] 350.1.13.10 [place] [place] 4.2.7.2.686 Flash as Professio [phone] Or dical [address] Office Building One 2020-12-29 2020-12-29 [facility] 1.2.840.114 [id number] 12:52:54 13:35:06 Visit [facility] 350.1.13.10 [place] 4.2.7.2.686 Professio [phone] nal [address] [place] [address] One 2020-12-29 2020-12-29 [facility] [id number] Univers 13:00:00 13:00:00 MELODY [facility] 2020-12-29 2020-12-29 Orders Doctor DAVID 1.2.840.114 [id number] Univers 00:00:00 00:00:00 Only Unassigned, GREGORY 350.1.13.10 ity of Carlos [facility] 4.2.7.2.686 Flash as [phone] [address] 2020-11-30 2020-12-04 [facility] Elliot Parkinson 1.2.840.1 [id number] Methodi 10:51:00 15:23:00 Encounter Vadim Calix 11623.1.[address] 3.430.2.7 Hospit a .3.476145 l .8 2020-11-30 2020-11-30 Travel 1.2.840.1 1.2.870.224 8898 573018 Methodi 00:00:00 00:00:[address] 3.430.2.7 0.2.7.3.698 Ho spita .3.419245 084.8 l .8 2020-09-12 2020-09-28 Discharged 1 SAINI, [facility] [id number] [address] 19:18:00 13:20:00 Inpatient SOUHEIL Patients 99 [facility] 2020-03-02 2020-03-02 Outpatient [facility] [id number] 14:00:00 14:00:00 -[id number] [place] s - Patient [facility] 2020-03-02 2020-03-02 Registered 3 YENY, [facility] C7731 [address] 13:32:00 13:32:00 Clinic JEANNINE Patients 29 [facility] 2020-02-24 2020-02-24 Outpatient [facility] [id number] [address] 14:00:00 14:00:00 -[id number] [place] s - Patient [facility] 2020-02-23 2020-02-23 Outpatient [facility] [id number] [address] 12:00:00 12:00:00 -[id number] [place] s - Patient [facility] 2019-01-27 2019-01-27 Orders Doctor DAVID 1.2.840.114 [id number] Univers 00:00:00 00:00:00 Only Unassigned, GREGORY 350.1.13.10 ity of [place] [facility] 4.2.7.2.686 Flash as [phone] [facility] hemal 009 Branch Results Test Description Test Time Test Comments Results Result [facility] e Comments - CT C-SPINE W/O 2021-09-16 CONT 00:00:00 [facility] 1930 Sex: M Name: JUSTICE HARDY [facility] : 1930 Age/S: 89 / M [address] [place] [address] Unit #: [id number] Loc: [place] [address] Phys: Kezia Tolbert Acct: [id number] Dis Date: Status: PRE ER PHONE #: [phone] Exam Date: 09/16/2021 05 FAX #: [phone] Reason: FALL OUT OF BED, NECK PAIN EXAMS: CPT CODE: [id number] CT C-SPINE W/O CONT 65073 PROCEDURE INFORMATION: Exam: CT Cervical Spine Without [...] RT(R)(CT) CTDI: DLP: Trnscb Date/Time: 09/16/2021 (600) [email or web address] Orig Print D/T: S: 09/16/2021 (600) PAGE 1 Signed Report - CT HEAD/BRAIN 2021-09-16 W/O CONT 00:00:00 [facility] : 1930 Sex: M Name: JUSTICE HARDY [facility] : 1930 Age/S: 89 / M [address] [place] [address] Blvd Unit #: [id number] Loc: [place] [address] Phys: Kezia Tolbert APRNNP Acct: [id number] Dis Date: Status: PRE ER PHONE #: [phone] Exam Date: 09/16/2021537 FAX #: [phone] Reason: FALL OUT OF BED, HEAD INJURY EXAMS: CPT CODE: [id number] CT HEAD/BRAIN W/O CONT 78628 PROCEDURE INFORMATION: Exam: CT Head Without Contrast [...] Rowland M.D. CC: Shadi Pritchard MD; Kezia Tolbert Technologist:Maribell Jorge. RT(R)(CT) CTDI: DLP: Trnscb Date/Time: 09/16/2021 (604) t.[email or web address] Orig Print D/T: S: 09/16/2021 (604) PAGE 1 Signed Report - XR CHEST 1 V 2021-09-16 00:00:00 [facility]ORGE [facility]GO : 1930 Sex: M FAX: Shadi Rosales MD [phone] [place]: St: REG FAX: Kezia Tolbert APR [phone] Name: JUSTICE HARDY [facility] : 1930 Age/S: 89/M [address] [place] [address] Unit #: [id number] Loc: [place] [address] Phys: Kezia Tolbert Acct: [id number] Dis Date: Status: REG ER PHONE #: [phone] Exam Date: 09/16/2021 0601 FAX #: [phone] Reason: FALL OUT OF BED EXAMS: CPT CODE: [id number] XR CHEST 1 V 72982 PROCEDURE INFORMATION: Exam: XR Chest Exam date [...] Report - XR PELVIS 07/012021-09-16 VIEWS 00:00:00 [facility] : 1930 Sex: M FAX: Shadi Rosales MD [phone] [place]: St: REG FAX: Kezia Tolbert APR [phone] Name: HARDYCORNELIAJUSTICE [facility] : 1930 Age/S: 89/M [address] [place] [address] Unit #: [id number] Loc: [place] [address] Phys: Kezia Tolbert APRNNP Acct: [id number] Dis Date: Status: REG ER PHONE #: [phone] Exam Date: 09/16/2021 0603 FAX #: [phone] Reason: PELVIC PAIN EXAMS: CPT CODE: [id number] XR PELVIS 1/2 VIEWS 05818 PROCEDURE INFORMATION: Exam: XR Pelvis Exam date [...] CC: Shadi Pritchard MD; Kezia Tolbert Technologist: STEVE Guerrero) Trnscjohn Date/Time/By: 09/16/2021 (628) : By: [email or web address] Orig Print D/T: S: 09/16/2021 (628) PAGE 1 Signed Report - XR T-SPINE 3V 2021-09-16 00:00:00 [facility] : 1930 Sex: M FAX: Shadi Rosales MD [phone] [place]: St: [facility] FAX: Kezia Tolbert APR [phone] Name: JUSTICE HARDY [facility] : 1930 Age/S: 89/M [address] [place] [address] Unit #: [id number] Loc: [place] [address] Phys: Kezia Tolbert Acct: [id number] Dis Date: Status: REG ER PHONE #: [phone] Exam Date: 09/16/2021 06 FAX #: [phone] Reason: BACK PAIN EXAMS: CPT CODE: [id number] XR T-SPINE 3V 23323 PROCEDURE INFORMATION: Exam: XR Thoracic Spine Exam [...] Tolbert Technologist: RT Yolanda(R) Trnscrd Date/Time/By: 09/16/2021 (629) : By: [email or web address] [facility] Print D/T: S: 09/16/2021 (629) PAGE 1 Signed Report - XR PELVIS 07/012021-09-05 VIEWS 00:00:00 [facility] : 1930 Sex: M FAX: Justice Guzman MD [phone] [place]: St: [facility] FAX: Shadi Rosales MD [phone] Name: JUSTICE HARDY [facility] : 1930 Age/S: 89/M [address] [place] [address] Unit #: [id number] Loc: [place] [address] Phys: Justice Guzman MD Acct: [id number] Dis Date: Status: REG ER PHONE #: [phone] Exam Date: 09/05/2021 1714 FAX #: [phone] Reason: fall EXAMS: CPT CODE: [id number] XR PELVIS 1/2 VIEWS 04361 PROCEDURE INFORMATION: Exam: XR Pelvis Exam date [...] By: BernardM Orig Print D/T: S: 09/05/2021 (0650) PAGE 1 Signed Report - CT HEAD/BRAIN 2021-09-05 W/O CONT 00:00:00 [facility] : 1930 Sex: M Name: JUSTICE HARDY [facility] : 1930 Age/S: 89 / M [address] [place] [address] Unit #: [id number] Loc: [place] [address] Phys: NancyTierney N APRNN Acct: [id number] Dis Date: Status: REG ER PHONE #: [phone] Exam Date: 09/05/2021 1604 FAX #: [phone] Reason: FALL FROM CHAIR, HEAD PAIN, ON ELIQUIS EXAMS: CPT CODE: [id number] CT HEAD/BRAIN W/O CONT 58318 PROCEDURE INFORMATION: Exam: CT Head Without Contrast [...] 1 Signed Report (CONTINUED) Name: JUSTICE HARDY [facility] : 1930 Age/S: 89 / M [address] [place] [address] Unit #: [id number] Loc: [place] [address] Phys: Tierney Cruz Acct: [id number] Dis Date: Status: REG ER PHONE #: [phone] Exam Date: 09/05/2021 1604 FAX #: [phone] Reason: FALL FROM CHAIR, HEAD PAIN, ON ELIQUIS EXAMS: CPT CODE: [id number] CT HEAD/BRAIN W/O CONT 19474 <Continued> CC: Tierney Cruz Technologist:RT Mariel(R)(CT) CTDI: DLP: Trnscb Date/Time: 09/05/2021 (1622) t.[email or web address] [facility] Print D/T: S: 09/05/2021 (1622) PAGE 2 Signed Report Urine culture 2021-07-11 07:18:43 Test Item Value Reference Range Interpretation Comme nts Urine culture (test code = 9314114) SEE COMMENT Bacteriuria screen negative. Alevism [facility] wacaqcn8152-02-29 00:28:29 Test Item Value Reference Range Interpretation Comments POC glucose (test code 140 mg/dL 65-99 H Opera tor Name: Theodore = 73130-9) Ga ID : [id number] able: [facility] Notified post doc fellowship Interpretation Abnormal (test code = 88738-6) [facility] cfnv8048-03-70 21:20:43 Test Item Value Reference Range Interpretation Comments Ventricular rate (test code = 253) Atrial rate (test code = 255) PA interval (test code = 266) QRSD interval [...] for LVH, may be normal variant ( Deandre product )-Septal infarct , age undetermined-Abnormal ECG- [facility] stress nesd8749-16-67 11:08:47 Test Item Value Reference Range Interpretation Comments Resting HR (test code = 2226301241) Resting BP (test code 132&63 = 9533359268) Peak MET Achieved (test code = 4976125885) Protocol Name (test Lexiscan code = 3809594217) Time in Exercise 00:01:00 Phase (test code = 2832900411) Max Systolic BP (test code = 1173586579) Max Diastolic BP (test code = 7313001497) Max Heart Rate (test code = 4722132008) Max Predicted Heart Rate (test code = 1655654047) Target HR Formula (220 - Age)*100% (test code = 2977500821) Test Indication (test Screening for CAD code = 1209348919) Arrhy During Ex (test code = 2825001551) ECG Interp Before EX (test code = 1046011528) ECG Interp During Ex (test code = 2119983845) Ex Summary Comment (test code = 2959343609) Overall HR Response to Exercise (test code = 8490747801) Overall BP Response To Exercise (test code = 4009929611) Reason for Protocol Complete Termination (test code = 8814232952) Stress Test -Waveform interpreted in Impression (test code report associated with = 2022327783) image study. No interpretation is provided as part of this Stress ECG report.-Electronically Signed By Venu GARCIA, David Camarena ([id number]), editor sound Sylvia Henriquez (111) on 04/21/2021 6:08:42 AM [facility] HEAD WO MTTOGIUF1579-07-53 01:56:56 No acute intracranial abnormality. CT HEAD [...] and mastoidair cells are clear. Left pseudophakia. [facility], Radiant Results Inft User - 01/10/2021 [...] cells are clear. Left pseudophakia.IMPRESSIONNo acute intracranial abnormality.[facility] leukocytes automated count (number/volume)2020-09-28 05:25:00 Test Item Value Reference Range Interpretation Comments White Blood Count (test code = 6690-2) 10.37 4.8-10.8 [facility] automated count (number/volume)2020-09-28 05:25:00 Test Item Value Reference Range Interpretation Comments Red Blood Count (test code = 789-8) 3.00 4.3-5.7 [facility] Center[facility] hemoglobin measurement (moles/volume)2020-09-28 05:25:00 Test Item Value Reference Range Interpretation Comments Hemoglobin (test code = 01018-6) 9.1 14.0-18.0 [facility] CenterAutomated blood hematocrit (volume fraction)2020-09-28 05:25:00 Test Item Value Reference Range Interpretation Comments Hematocrit (test code = 4544-3) 26.0 38.2-49.6 [facility] CenterAutomated erythrocyte mean corpuscular wkojnw8138-83-81 05:25:00 Test Item Value Reference Range Interpretation Comments Mean Corpuscular Volume (test code = 86.7 81-99 787-2) [facility] CenterAutomated erythrocyte mean corpuscular hemoglobin (mass per erythrocyte)2020-09-28 05:25:00 Test Item Value Reference Range Interpretation Comments Mean Corpuscular Hemoglobin (test code 30.3 28-32 = 785-6) [facility] CenterAutomated erythrocyte mean corpuscular hemoglobin concentration measurement (mass/volume)2020-09-28 05:25:00 Test Item Value Reference Range Interpretation Comments Mean Corpuscular Hemoglobin Concent 35.0 31-35 (test code = 786-4) [facility] CenterRDW DivCa-Htv4229-54-01 05:25:00 Test Item Value Reference Range Interpretation Comments Red Cell Distribution Width (test code 16.1 11.7-14.4 = 95062-9) [facility] CenterAutomated blood platelet count (count/volume)2020-09-28 05:25:00 Test Item Value Reference Range Interpretation Comments Platelet Count (test code = 777-3) 253 140-360 [facility] CenterAutomated blood segmented neutrophil count as percentage of total tnvowteavz7158-43-47 05:25:00 Test Item Value Reference Range Interpretation Comments Neutrophils (%) (Auto) (test code = 77.9 38.7-80.0 60946-8) [facility] CenterAutomated blood lymphocyte count as percentage ot total kqeksycjrc2237-82-06 05:25:00 Test Item Value Reference Range Interpretation Comments Lymphocytes (%) (Auto) (test code = 12.3 18.0-39.1 736-9) [facility] CenterAutomated blood monocyte count as percentage of total jymxsmfhaz3795-38-21 05:25:00 Test Item Value Reference Range Interpretation Comments Monocytes (%) (Auto) (test code = 6.4 4.4-11.3 5905-5) [facility] CenterAutomated blood eosinophil count as percentage of total ixbeyiardt7341-44-72 05:25:00 Test Item Value Reference Range Interpretation Comments Eosinophils (%) (Auto) (test code = 1.8 0.0-6.0 713-8) [facility] CenterAutomated blood basophil count as percentage of total duxpdrommd4659-77-18 05:25:00 Test Item Value Reference Range Interpretation Comments Basophils (%) (Auto) (test code = 0.4 0.0-1.0 706-2) [facility] CenterFluoroscopic procedure less than one hour yxuzjzpu1647-60-05 05:25:00 Test Item Value Reference Range Interpretation Comments IM GRANULOCYTES % (test code = IM 1.2 0.0-1.0 GRANULOCYTES %) [facility] CenterAutomated blood neutrophil count 2020-09-28 05:25:00 Test Item Value Reference Range Interpretation Comments Neutrophils # (Auto) (test code = 8.1 2.1-6.9 751-8) [facility] CenterBlood lymphocytes count (number/volume) 2020-09-28 05:25:00 Test Item Value Reference Range Interpretation Comments Lymphocytes # (Auto) (test code = 1.3 1.0-3.2 12233-9) [facility] CenterBlood monocytes automated count (number/volume)2020-09-28 05:25:00 Test Item Value Reference Range Interpretation Comments Monocytes # (Auto) (test code = 742-7) 0.7 0.2-0.8 [facility] CenterAutomated blood eosinophil count 2020-09-28 05:25:00 Test Item Value Reference Range Interpretation Comments Eosinophils # (Auto) (test code = 0.2 0.0-0.4 711-2) [facility] CenterAutomated blood basophil count (count/volume)2020-09-28 05:25:00 Test Item Value Reference Range Interpretation Comments Basophils # (Auto) (test code = 704-7) 0.0 0.0-0.1 [facility] CenterFluoroscopic procedure less than one hour zorhcsxp6819-36-85 05:25:00 Test Item Value Reference Range Interpretation Comments Absolute Immature Granulocyte (auto 0.12 0-0.1 (test code = Absolute Immature Granulocyte (auto) [facility] sodium [facility] (moles/volume)2020-09-28 05:25:00 Test Item Value Reference Range Interpretation Comments Sodium Level (test code = 2951-2) 132 136-145 [facility] potassium measurement (moles/volume)2020-09-28 05:25:00 Test Item Value Reference Range Interpretation Comments Potassium Level (test code = 2823-3) 3.3 3.5-5.1 [facility] chloride measurement (moles/volume)2020-09-28 05:25:00 Test Item Value Reference Range Interpretation Comments Chloride Level (test code = 2075-0) 106 98-107 [facility] or plasma carbon dioxide, total measurement (moles/volume)2020-09-28 05:25:00 Test Item Value Reference Range Interpretation Comments Carbon Dioxide Level (test code = -2027-9) [facility] anion grv9442-47-84 05:25:00 Test Item Value Reference Range Interpretation Comments Anion Gap (test code = 70373-4) 9.3 8-16 [facility] urea nitrogen measurement (mass/volume)2020-09-28 05:25:00 Test Item Value Reference Range Interpretation Comments Blood Urea Nitrogen (test code = 18 7- 3094-0) [facility] creatinine measurement (mass/volume)2020-09-28 05:25:00 Test Item Value Reference Range Interpretation Comments Creatinine (test code = 2160-0) 0.83 0.72-1.25 [facility] urea nitrogen/creatinine mass womlx7615-03-88 05:25:00 Test Item Value Reference Range Interpretation Comments BUN/Creatinine Ratio (test code = 22 6- 3097-3) [facility] CenterEstimated glomerular filtration rate (GFR) oadvhuykzzjzd9317-27-77 05:25:00 Test Item Value Reference Range Interpretation Comments Estimat Glomerular > 60 See_Comment [Automat ed message] The Filtration Rate (test system which generated code = 689880187) this resul t transmitted reference range : 60-. The reference r duane was not used to int erpret this result as normal/abnormal . [facility] CenterGlucose dnpnpjczalu2349-03-14 05:25:00 Test Item Value Reference Range Interpretation Comments Glucose Level (test code = ONY7920) 104 74-118 [facility] calcium measurement (mass/volume)2020-09-28 05:25:00 Test Item Value Reference Range Interpretation Comments Calcium Level (test code = 64990-7) 7.4 8.4-10.2 [facility] or plasma total bilirubin measurement (mass/volume)2020-09-28 05:25:00 Test Item Value Reference Range Interpretation Comments Total Bilirubin (test code = 1975-2) 0.7 0.2-1.2 [facility] CenterFluoroscopic procedure less than one hour pvakicoe0490-64-45 05:25:00 Test Item Value Reference Range Interpretation Comments Aspartate Amino Transf (AST/SGOT) (test 74 5-34 code = Aspartate Amino Transf (AST/SGOT)) [facility] alanine aminotransferase measurement (enzymatic activity/volume)2020-09-28 05:25:00 Test Item Value Reference Range Interpretation Comments Alanine Aminotransferase (ALT/SGPT) 107 0-55 (test code = 1742-6) [facility] or plasma protein measurement (mass/volume)2020-09-28 05:25:00 Test Item Value Reference Range Interpretation Comments Total Protein (test code = 2885-2) 4.2 6.5-8.1 [facility] or plasma albumin measurement (mass/volume)2020-09-28 05:25:00 Test Item Value Reference Range Interpretation Comments Albumin (test code = 1751-7) 1.9 3.5-5.0 [facility] CenterPlasma globulin measurement (mass/volume) 2020-09-28 05:25:00 Test Item Value Reference Range Interpretation Comments Globulin (test code = 65057-2) 2.3 2.3-3.5 [facility] or plasma albumin/globulin mass xdvwc5941-30-14 05:25:00 Test Item Value Reference Range Interpretation Comments Albumin/Globulin Ratio (test code = 0.8 0.8-2.0 1759-0) [facility] alkaline phosphatase measurement (enzymatic activity/volume)2020-09-28 05:25:00 Test Item Value Reference Range Interpretation Comments Alkaline Phosphatase (test code = 100 40-150 6768-6) [facility] CenterTroponin I measurement by highly sensitive enzyme ymzfrhwdgqz4985-91-02 05:25:00 Test Item Value Reference Range Interpretation Comments Troponin I (test code = 84387-3) 0.109 0-0.300 [facility] CenterCHEST SINGLE (PORTABLE)2020-09-26 10:41:00[facility] : 1930 Sex: M [place] [address] Patient Name: JUSTICE HARDY MR #: [id number] : 1930 Age/Sex: 89/M Req #: [id number] Adm Physician: ZACHARIAH SAINI MD Ordered by: ARASH CASTORENA MD Report #: [id number] Location: MED/SURG Room/Bed: [facility] Procedure: [id number] DX/CHEST SINGLE (PORTABLE) Exam Date: 09/26/20 Exam [...] 10:48 AM Dictated By: SCHUYLER GUERRA MD 1048 Transcribed By: AYDEN on 09/26/20 104 COPY TO: ARASH CASTORENA MDABDOMEN 2 VIEW 2020-09-26 09:13:00 [facility] : 1930 Sex: M [place] [address] Patient Name: JUSTICE HARDY MR #: [id number] : 1930 Age/Sex: 89/M Req #: [id number] Adm Physician: ZACHARIAH SAINI MD Ordered by: JEANNINE SAINI MD Report #: [id number] Location: MED/SURG Room/Bed: [facility] Procedure: [id number] DX/ABDOMEN 2 VIEW Exam Date: 09/26/20 Exam [...] Natriuretic Peptide (test code = 50.2 0-100 29136-9) [facility] amylase measurement (enzymatic activity/volume)2020-09-26 05:17:00 Test Item Value Reference Range Interpretation Comments Amylase Level (test code = 1798-8) 98 25-125 [facility] or plasma lipase measurement (enzymatic activity/volume)2020-09-26 05:17:00 Test Item Value Reference Range Interpretation Comments Lipase (test code = 3040-3) 98 8-78 [facility] CenterABDOMEN 2 LZJI6853-67-57 23:59:00 [facility] : 1930 Sex: M [place] [address] Patient Name: JUSTICE HARDY MR #: [id number] : 1930 Age/Sex: 89/M Req #: [id number] Adm Physician: ZACHARIAH SAINI MD Ordered by: JEANNINE SIANI MD Report #: [id number] Location: MED/SURG Room/Bed: [facility] Procedure: [id number] DX/ABDOMEN 2 VIEW Exam Date: 09/24/20 Exam [...] levels are seen in the right hemiabdomen. Delevan lucency in the upper abdomen on the upright view projecting over the T12 vertebral body , likely represents pneumoperitoneum IMPRESSION: 1. Overall appearance of postsurgical ileus with diffuse mildly dilated small bowel and distended air distended colon to the level of the rectum. Distal obstruction is not excluded. Recommend radiographic follow-up until resolution. 2. Delevan lucency projecting over the T12 vertebral body may represent pneumoperitoneum as seen on recent chest CT, possibly related to recent surgery. Signed by: Patricia Wheat MD on 09/25/2020 12:48 AM Dictated By: TIESHA WHEAT MD Transcribed By: AYDEN on 09/25/2047 COPY TO: JEANNINE SAINIerum or plasma magnesium measurement (mass/volume)2020-09-23 16:40:00 Test Item Value Reference Range Interpretation Comments Magnesium Level (test code = 93401-1) 1.5 1.3-2.1 [facility] CenterFluoroscopic procedure less than one hour pbtdermt4401-90-39 08:51:00 Test Item Value Reference Range Interpretation Comments Differential Total Cells Counted (test 100 code = Differential Total Cells Counted) [facility]100 leukocytes 2020-09-22 08:51:00 Test Item Value Reference Range Interpretation Comments Neutrophils % (Manual) (test code = 86 40-74 54230-6) [facility] blood band neutrophils form/100 egkvelfytr3865-44-67 08:51:00 Test Item Value Reference Range Interpretation Comments Band Neutrophils % (test code = 764-1) 0 [facility] blood lymphocytes/100 leukocytes 2020-09-22 08:51:00 Test Item Value Reference Range Interpretation Comments Lymphocytes % (Manual) (test code = 7 19-48 737-7) [facility] blood monocytes/100 leukocytes 2020-09-22 08:51:00 Test Item Value Reference Range Interpretation Comments Monocytes % (Manual) (test code = 7 3.4-9.0 744-3) [facility] CenterAutomated reticulocyte count as percentage of total nclozsesyzhq9282-85-99 05:15:00 Test Item Value Reference Range Interpretation Comments Percent Reticulocyte Count (test code = 1.5 0.8-2.2 20007-2) [facility] iron measurement (mass/volume)2020-09-21 05:15:00 Test Item Value Reference Range Interpretation Comments Iron Level (test code = 2498-4) 26 65-175 [facility] iron binding capacity measurement (mass/volume)2020-09-21 05:15:00 Test Item Value Reference Range Interpretation Comments Total Iron Binding Capacity (test code 193 214-757 = 2500-7) [facility] iron saturation measurement (mass fraction)2020-09-21 05:15:00 Test Item Value Reference Range Interpretation Comments Percent Iron Saturation (test code = 13 15-50 2502-3) [facility] or plasma transferrin measurement (mass/volume)2020-09-21 05:15:00 Test Item Value Reference Range Interpretation Comments Transferrin (test code = 3034-6) 138 379-364 [facility] CenterBlood cobalamin (vitamin B12) measurement (mass/volume)2020-09-21 05:15:00 Test Item Value Reference Range Interpretation Comments Vitamin B12 Level (test code = 15637-5) 591 [id number] [facility] (mass/volume)2020-09-21 05:15:00 Test Item Value Reference Range Interpretation Comments Folate (test code = 2284-8) 17.8 >3.0 [facility] [id number] 21:42:00 [facility] : 1930 Sex: M [place] [address] Patient Name: JUSTICE HARDY MR #: [id number] : 1930 Age/Sex: 89/M Req #: [id number] Adm Physician: ZACHARIAH SAINI MD Ordered by: AJ FLYNN DO Report #: [id number] Location: MED/SURG Room/Bed: [facility] Procedure: [id number] CT/CT CHEST W Exam Date: 09/20/20 Exam Time: 2114 REPORT STATUS: Signed EXAM: CT Chest WITH contrast 09/20/2020 9:15 PM INDICATION: PE [id number] 2114 COMPARISON: None TECHNIQUE: Chest was scanned [...] 09/20/202199 COPY TO: AJ FLYNN DO Phosphorus [id number] 03:45:00 Test Item Value Reference Range Interpretation Comments Phosphorus Level (test code = OXY1656) 0.8 2.3-4.7 [facility] SINGLE (PORTABLE)2020-09-17 15:26:00[facility] : 1930 Sex: [place] [address] Patient Name: JUSTICE HARDY MR #: [id number] : 1930 Age/Sex: 89/M Req #: [id number] Adm Physician: ZACHARIAH SAINI MD Ordered by: ZACHARIAH SAINI MD Report #: [id number] Location: ICU Room/Bed: [place] [address] Procedure: [id number] DX/CHEST SINGLE (PORTABLE) Exam Date: 09/17/20 Exam [...] (PT) in platelet poor plasma by coagulation [id number] 10:55:00 Test Item Value Reference Range Interpretation Comments Prothrombin Time (test code = 5902-2) 16.5 11.9-14.5 [facility] Center[facility] in Platelet poor plasma by Coagulation [id number] 10:55:00 Test Item Value Reference Range Interpretation Comments Prothromb Time International Ratio 1.25 (test code = 6301-6) [facility] CenterCHEST XRAY LINE [id number] 20:57:00[facility] : 1930 Sex: M [facility] [address] [place] [address] Patient Name: JUSTICE HARDY MR #: [id number] : 1930 Age/Sex: 89/M Req #: [id number] [facility] Physician: ZACHARIAH SAINI MD Ordered by: ZACHARIAH SAINI MD Report #: [id number] Location: ICU Room/Bed: [place] [address] Procedure: [id number] DX/CHEST XRAY LINE PLACEMENT Exam Date: 09/16/20 [...] likely within gastric lumen, [facility]. Infrahilar haziness, atelectasis or pneumonia/aspiration. Signed by: Eugenio Ye DO on 09/16/2020 9:02 PM Dictated By: EUGENIO YE DO 01 Transcribed By: AYDEN on 09/16/202101 COPY TO: ZACHARIAH SAINI [facility] SINGLE (PORTABLE)2020-09-15 14:55:00 [facility] 1930 Sex: [place] [address] Patient Name: JUSTICE HARDY MR #: [id number] : 1930 Age/Sex: 89/M Req #: [id number] Adm Physician: ZACHARIAH SAINI MD Ordered by: DHARMESH LINARES MD Report #: [id number] Lo cation: MED/SURG Room/Bed: [facility] Procedure: [id number] DX/CHEST SINGLE (PORTABLE) Exam Date: 09/15/20 Exam [...] TO: DHARMESH LINARES MDABDOMEN ACUTE SERIES W/TENZIN CXR 2020-09-15 10:17:00 [facility] : 1930 Sex: [place] [address] Patient Name: JUSTICE HARDY MR #: [id number] : 1930 Age/Sex: 89/M Req #: [id number] Adm Physician: ZACHARIAH SAINI MD Ordered by: DHARMESH LINARES MD Report #: [id number] Lo cation: MED/SURG Room/Bed: [facility] Procedure: [id number] DX/ABDOMEN ACUTE SERIES W/PA CXR Exam Date: [...] TO: DHARMESH LINARES MDABDOMEN ACUTE SERIES W/TENZIN [id number] 10:50:00 [facility] : 1930 Sex: M [facility] [address] [place] [address] Patient Name: JUSTICE HARDY MR #: [id number] : 1930 Age/Sex: 89/M Req #: [id number] Adm Physician: ZACHARIAH SAINI MD Ordered by: DHARMESH LINARES MD Report #: [id number] Lo cation: MED/SURG Room/Bed: [facility] Procedure: [id number] DX/ABDOMEN ACUTE SERIES W/TENZIN CXR Exam Date: 09/14/20 Exam Time: 1020 REPORT STATUS: Signed X-ray abdomen acute series with 2 views of the abdomen and a single view of the chest INDICATION: sbo [id number] 1020 Comparison: X-ray dated 09/14/2019. Discussion: Lungs [...] Kinase (test code = 2157-6) 385 30-200 [facility] creatine kinase MB measurement (mass/volume)2020-09-13 11:24:00 Test Item Value Reference Range Interpretation Comments Creatine Kinase MB (test code = 2.90 0-5.0 31735-2) [facility] CenterABDOMEN 2 [id number] 09:26:00 [facility] : 1930 Sex: [place] [address] Patient Name: JUSTICE HARDY MR #: [id number] : 1930 Age/Sex: 89/M Req #: [id number] Adm Physician: ZACHARIAH SAINI MD Ordered by: SHANNAN CERVANTES MD Report #: [id number] Location: MED/SURG Room/Bed: [facility] Procedure: [id number] DX/ABDOMEN 2 VIEW Exam Date: 09/13/20 Exam [...] 0.7 0.5-2.0 Acid Level) [facility] CenterFluoroscopic procedure less than one hour [id number] 19:02:00 Test Item Value Reference Range Interpretation Comments Coronavirus (PCR) (test code = NOT DETECTED NOTDETECTED Coronavirus (PCR)) [facility]CT ABD/PEL WO [id number] 17:30:00[facility] : 1930 Sex[facility] M [facility] [address] [place] [address] Patient Name: JUSTICE HARDY MR #: [id number] : 1930 Age/Sex: 89/M Req #: [id number] Adm Physician: Ordered by: SHANNAN CERVANTES MD Report #: [id number] Location: [facility] Room/Bed: Procedure: [id number] HOPD/CT ABD/PEL WO CONTRAST-HOPD Exam Date: 09/12/20 Exam Time: 1657 REPORT STATUS: Signed EXAM: CT Abdomen and Pelvis WITHOUT contrast INDICATION: abd pain, nausea, retching [id number] 1657 COMPARISON: CT abdomen and pelvis on [...] 09/12/201744 COPY TO: SHANNAN CERVANTES MDCT ABDOMEN/PELVIS [id number] 15:20:00 [place] [address] [place] [address] Patient Name: JUSTICE HARDY MR #: [id number] : 1930 Age/Sex: 89/M Req #: [id number] Adm Physician: Or oliver by: JEANNINE SAINI MD Report #: [id number] Location: CT Room/Bed: Procedure: [id number] CT/CT ABDOMEN/PELVISWO Exam Date: 03/02/20 Exam Time: [...]
[2021-10-04 18:21] LABS: Urine Blood Negative (Negative); Urine Glucose Negative (Negative); Urine Protein Negative (Negative)
[2021-10-04 18:28] LABS: Absolute Lymphocytes (CBC) 0.9 K/uL (0.7-4.9); Hematocrit 31.6 % (39.6-49.0); MPV 7.7 fL (7.6-11.3); RBC Red Blood Cell Count 3.81 M/uL (4.33-5.43)
[2021-10-04 18:52] LABS: Albumin 3.3 g/dL (3.4-5.0); Bilirubin Total 0.2 mg/dL (0.2-1.0); Potassium 4.5 mmol/L (3.5-5.1); Protein, Total 6.9 g/dL (6.4-8.2)
[2021-10-04 19:26] LABS: Urine RBC <5 /HPF (NONE SEEN)
[2021-10-04 19:27] LABS: Urine Bacteria NONE SEEN /HPF (NONE SEEN)
[2021-10-04] MEDS ORDERED: NA CHLORIDE 0.9% 500 ML ONE (19:41)
--- NOTE | 2021-10-04 19:48 | RAD REPORT ---
EXAM DESCRIPTION: CT - Abdomen Pelvis W Contrast - 10/04/2021 7:18 pm CLINICAL HISTORY: Constipation;Abd pain COMPARISON: <Comparisons> TECHNIQUE: Biphasic, helical CT imaging of the abdomen and pelvis was performed following 100 ml non -ionic IV contrast. No oral contrast administered. All CT scans are performed using dose optimization technique as appropriate and may include automated exposure control or mA/KV adjustment according to patient size. FINDINGS: No suspicious findings in the lung bases. Cardiomegaly is present without pericardial effu jad. Ascending aortic stent is present only partially imaged. Motion limits detail. The liver, spleen, and pancreas show no suspicious findings. Cholecystectomy clips are present. No bi liary tree dilatation. Symmetric renal function is seen with no hydronephrosis or suspicious renal mass. No pyelonephritis o r acute parenchymal process. Multiple bilateral renal cysts are present. Largest on the left is 4.2 c m. Largest on the right is 6.5 cm. Septation is seen along the medial margin of the large right renal cyst. Renal cysts have enlarged since the prior study. Right renal cyst septation may be partially m ineralized. . No adrenal abnormalities. Urinary bladder is fully contracted around a Juarez catheter. Very small hiatal hernia is present. No acute gastric finding. No acute small bowel finding seen. The re is anastomosis of the small bowel in the right mid abdomen. Large stool volume dilates the rectum to 8 cm. Moderately large stool volume is present elsewhere in the colon. The colon is distended but not dilated by the large stool volume. Acute appendicitis is not seen. A focal colon mass is not iden tified. No free air, free fluid or inflammatory stranding. No mass or bulky lymphadenopathy. A supraumbilica l fat only hernia is present 5 cm in diameter with a 3 centimeter neck. Bilateral fat only inguinal h ernias are present. Disc and bone degenerative changes are present. No acute or destructive bone process. Vascular calcif ications are present. IVC filter in place. IMPRESSION: Large stool volume fills the colon and dilates the rectum to 8 cm. An acute colon mass or area of wall thickening not identified. No pyelonephritis or acute finding. Patient has bilateral simple and minimally complex cysts (Bosn iak I-II) as detailed. These have grown since September 2020 bladder without worrisome characteristics. B ladder is fully contracted around a Juarez catheter. No free air, pneumatosis or other surgically emergent finding.
[2021-10-04] MEDS ORDERED: FLEET ENEMA ADULT PR ONE (20:14)
[2021-10-04] MEDS ORDERED: LACTULOSE 20 GM/30 ML UCUP ONE (20:14)
--- NOTE | 2021-10-04 21:41 | EDPHYS ---
Physician Documentation [facility] Name: Benito Castaneda Age: 89 yrs Sex: Male : 1930 Arrival Date: 10/04/2021 Time: 17:15 Bed 14 Private MD: ED Physician Domo Stewart HPI: 10/04 18:00 This 89 yrs old Male presents to ER via Ambulatory with complaints of cp Constipation, Urinary Retention. 18:00 The patient presents with abdominal pain that is diffuse. Onset: The symptoms/episode cp began/occurred today. 18:00 Associated signs and symptoms: Pertinent positives: constipation, urine retention, cp Pertinent negatives: chest pain, diarrhea, fever, shortness of breath, testicular pain, vomiting. The symptoms are described as constant. 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 - Social history:: Smoking status: unknown. ROS: 18:05 : Positive for difficulty urinating. cp 18:05 Constitutional: Negative for body aches, chills, fever, poor PO intake. cp 18:05 ENT: Negative for drainage from ear(s), ear pain, sore throat, difficulty swallowing, difficulty handling secretions. 18:05 Cardiovascular: Negative for chest pain, palpitations. 18:05 Respiratory: Negative for cough, shortness of breath, wheezing. 18:05 Abdomen/GI: Positive for abdominal pain, constipation, Negative for vomiting, diarrhea, black/tarry stool, rectal bleeding. 18:05 Neuro: Negative for altered mental status, headache, syncope, weakness. 18:05 All other systems are negative. Exam: 18:10 Constitutional: The patient appears in no acute distress, alert, awake, cp non-diaphoretic, non-toxic, well developed, well nourished, uncomfortable. 18:10 Head/Face: Normocephalic, atraumatic. cp 18:10 Eyes: Periorbital structures: appear normal, Conjunctiva: normal, no exudate, no injection, Sclera: no appreciated abnormality, Lids and lashes: appear normal, bilaterally. 18:10 ENT: External ear(s): are unremarkable, Nose: is normal, Mouth: Lips: moist, Oral mucosa: moist, Posterior pharynx: Airway: no evidence of obstruction, patent. 18:10 Chest/axilla: Inspection: normal, Palpation: is normal, no crepitus, no tenderness. 18:10 Cardiovascular: Rate: normal, Rhythm: regular, Edema: is not appreciated, JVD: is not appreciated. 18:10 Respiratory: the patient does not display signs of respiratory distress, Respirations: normal, no use of accessory muscles, no retractions, labored breathing, is not present, Breath sounds: are clear throughout, no decreased breath sounds, no stridor, no wheezing. 18:10 Abdomen/GI: Inspection: abdomen appears normal, Bowel sounds: active, all quadrants, Palpation: soft, in all quadrants, moderate abdominal tenderness, in all quadrants, rebound tenderness, is not appreciated, involuntary guarding, is not appreciated. 18:10 Back: CVA tenderness, is absent. 21:50 : Rectal exam: Stool: brown, soft. cp 21:50 Neuro: Orientation: to person, place \T\ time. Mentation: is normal, Motor: moves all cp fours, strength is normal. Vital Signs: 17:35 BP 145 / 78; Pulse 90; Resp 18 S; Temp 98.3(O); Pulse Ox 96% on R/A; aa5 18:35 BP 166 / 72; Pulse 95; Resp 16 S; Pulse Ox 96% on R/A; aa5 20:54 BP 195 / 87; Pulse 103; Resp 19; Pulse Ox 96% on R/A; sm5 21:51 BP 170 / 72; Pulse 103; Resp 18; Pulse Ox 100% ; sm5 22:29 BP 143 / 74; Pulse 99; Resp 18; Pulse Ox 100% on R/A; sm5 MDM: 17:37 Patient medically screened. cp 18:00 Differential diagnosis: appendicitis, bowel obstruction, cholecystitis, Cholelithiasis, cp diverticulitis, non-specific abd pain, Ureterolithiasis, urinary tract infection. 21:40 Data reviewed: vital signs, nurses notes, lab test result(s), radiologic studies, CT cp scan. 21:40 Counseling: I had a detailed discussion with the patient and/or guardian regarding: the cp historical points, exam findings, and any diagnostic results supporting the discharge/admit diagnosis, lab results, radiology results, to return to the emergency department if symptoms worsen or persist or if there are any questions or concerns that arise at home. Response to treatment: the patient's symptoms have markedly improved after treatment, VSS. Juarez placed and enema administered resulting in bowel movement. Will discharge to home for continued monitoring. 10/04 17:43 Order name: CBC with Diff; Complete Time: 19:00 10/04 19:00 Interpretation: Normal except: WBC 11.3; RBC 3.81; HGB 10.7; HCT 31.6; PLT 371; RDW cp 17.6; FREDY% 81.4; LYM% 8.0; NEUT A 9.2. 10/04 17:43 Order name: CMP; Complete Time: 19:00 10/04 19:01 Interpretation: Normal except: NA 128; CL 92; BUN 45; CRE 1.32; GFR 51. 10/04 17:43 Order name: Lipase; Complete Time: 19:00 10/04 17:43 Order name: Urine Microscopic Only; Complete Time: 20:06 10/04 20:06 Interpretation: Reviewed. 10/04 18:21 Order name: Urine Dipstick-Ancillary; Complete Time: 19:00 EDMS 10/04 19:01 Order name: CT Abd/Pelvis - IV Contrast Only; Complete Time: 20:06 10/04 17:43 Order name: Bladder Scanner: pre and post void; Complete Time: 18:30 10/04 17:43 Order name: IV Saline Lock; Complete Time: 18:30 10/04 17:43 Order name: Labs collected and sent; Complete Time: 18:30 cp 10/04 17:43 Order name: Urine Dipstick-Ancillary (obtain specimen); Complete Time: 18:30 10/04 17:51 Order name: Juarez; Complete Time: 18:30 dw3 Administered Medications: 19:40 Drug: NS 0.9% 500 ml Route: IV; Rate: calculated rate; Site: right forearm; sm5 20:10 Follow up: IV Status: Completed infusion; IV Intake: 500ml sm5 20:30 Drug: Fleet Enema (sodium phosphate) 133 ml Route: [place]; sm5 21:51 Follow up: Response: Marked relief of symptoms sm5 20:35 Drug: Lactulose 20 grams Volume: 30 ml; Route: PO; sm5 21:52 Follow up: Response: Marked relief of symptoms sm5 Disposition Summary: 10/04/21 21:41 Discharge Ordered Location: Home cp Problem: new cp Symptoms: have improved cp Condition: Stable cp Diagnosis - Fecal impaction cp - Retention of urine, unspecified cp - Constipation cp Followup: cp - With: Private Physician - When: 1 - 2 days - Reason: Recheck today's complaints Discharge Instructions: - Discharge Summary Sheet cp - Constipation, Adult cp - Acute Urinary Retention, Male cp - Fecal Impaction cp Forms: - Medication Reconciliation Form cp - Thank You Letter cp - Antibiotic Education cp - Prescription Opioid Use cp Signatures: Dispatcher [employer] Toshia Dobson RN RN ss Anoop Rodriguez PA PA cp Noreen Byrnes RN RN sm5 Nohemi Valdes RN RN dw3
--- NOTE | 2021-10-04 21:41 | ER ---
Nurse's Notes [facility] Name: Benito Castaneda Age: 89 yrs Sex: Male : 1930 Arrival Date: 10/04/2021 Time: 17:15 Bed 14 Private MD: Diagnosis: Fecal impaction;Retention of urine, unspecified;Constipation Presentation: 10/04 17:16 Chief complaint: EMS states: constipation x 3 days. Coronavirus screen: Client denies ss travel out of the [place] in the last 14 days. Ebola Screen: Patient denies exposure to infectious person. Patient denies travel to an Ebola-affected area in the 21 days before illness onset. Initial Sepsis Screen: Does the patient meet any 2 criteria? No. Patient's initial sepsis screen is negative. Does the patient have a suspected source of infection? No. Patient's initial sepsis screen is negative. Risk Assessment: Do you want to hurt yourself or someone else? Patient reports no desire to harm self or others. Onset of symptoms was October 01, 2021. 17:16 Method Of Arrival: Ambulatory ss 17:16 Acuity: ANT 3 ss 17:36 Transition of care: patient was received from another setting of care (long-term care facility), [facility]. 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 - Social history:: Smoking status: unknown. Screenin:45 Abuse screen: Denies threats or abuse. Nutritional screening: No deficits noted. aa5 Tuberculosis screening: No symptoms or risk factors identified. Fall Risk Secondary diagnosis (15 points) CVA, IV access (20 points). Total Brady Fall Scale indicates Low Risk Score (25-44 pts). Fall prevention measures have been instituted. Side Rails Up X 2 Placed close to Nursing Station. Assessment: 17:35 General: Appears uncomfortable, Behavior is calm, cooperative. Pain: Complains of pain aa5 in suprapubic area, right lower quadrant and left lower quadrant Pain currently is 10 out of 10 on a pain scale. Quality of pain is described as pressure, tender, Is continuous. Neuro: Level of Consciousness is awake, alert, obeys commands, Oriented to person, place, time, situation. Cardiovascular: Patient's skin is warm and dry. Respiratory: Airway is patent Respiratory effort is even, unlabored, Respiratory pattern is regular, symmetrical. GI: Abdomen is round Bowel sounds present X 4 quads. Abdomen is tender to palpation in suprapubic area, right lower quadrant and left lower quadrant Reports constipation, Patient currently denies nausea, vomiting. : Reports inability to void. EENT: No signs and/or symptoms were reported regarding the EENT system. Derm: Skin is pink, warm \T\ dry. Musculoskeletal: Range of motion: intact in all extremities. 17:45 Reassessment: Bladder scan completed Total Volume:795, PA notified . aa5 18:10 Reassessment: Patient is alert, oriented x 3, equal unlabored respirations, skin aa5 warm/dry/pink. Patient states feeling better. 20:54 Reassessment: pt assisted to bedside commode and had a bowel movement after enema and sm5 lactulose administration. 22:30 Reassessment: Patient states feeling better. sm5 Vital Signs: 17:35 BP 145 / 78; Pulse 90; Resp 18 S; Temp 98.3(O); Pulse Ox 96% on R/A; aa5 18:35 BP 166 / 72; Pulse 95; Resp 16 S; Pulse Ox 96% on R/A; aa5 20:54 BP 195 / 87; Pulse 103; Resp 19; Pulse Ox 96% on R/A; sm5 21:51 BP 170 / 72; Pulse 103; Resp 18; Pulse Ox 100% ; sm5 22:29 BP 143 / 74; Pulse 99; Resp 18; Pulse Ox 100% on R/A; sm5 ED Course: 17:15 Patient arrived in ED. ss 17:16 Triage completed. ss 17:16 Arm band placed on right wrist. ss 17:21 Anoop Rodriguez PA is PHCP. cp 17:21 Domo Stewart MD is Attending Physician. cp 17:35 Patient has correct armband on for positive identification. Placed in gown. Bed in low aa5 position. Call light in reach. Side rails up X2. 17:35 Pulse ox on. NIBP on. aa5 17:55 Jo-Ann Nayak RN is Primary Nurse. aa5 18:00 Ujarez cath inserted, using sterile technique, 16 Fr., by me, balloon inflated, to aa5 gravity drainage, urine specimen collected. 18:14 Initial lab(s) drawn, by il, sent to lab. Inserted saline lock: 22 gauge in right aa5 forearm, using aseptic technique. Blood collected. 19:00 Report given to BERYL Sorto. aa5 19:19 CT Abd/Pelvis - IV Contrast Only In Process Unspecified. EDMS 22:30 No provider procedures requiring assistance completed. IV discontinued, intact, sm5 bleeding controlled, No redness/swelling at site. Pressure dressing applied. Administered Medications: 19:40 Drug: NS 0.9% 500 ml Route: IV; Rate: calculated rate; Site: right forearm; sm5 20:10 Follow up: IV Status: Completed infusion; IV Intake: 500ml sm5 20:30 Drug: Fleet Enema (sodium phosphate) 133 ml Route: [place]; sm5 21:51 Follow up: Response: Marked relief of symptoms sm5 20:35 Drug: Lactulose 20 grams Volume: 30 ml; Route: PO; sm5 21:52 Follow up: Response: Marked relief of symptoms sm5 Intake: 20:10 IV: 500ml; Total: 500ml. sm5 Output: 18:00 Urine: 850ml (Juarez); Total: 850ml. aa5 18:31 Urine: 300ml (Juarez); Total: 1150ml. aa5 20:54 Urine: 350ml (Juarez); Total: 1500ml. sm5 Outcome: 21:41 Discharge ordered by . cp 22:32 Discharged to senior care. Report called to [facility] [employer] Transfer form completed. 5 22:32 Discharged to 22:32 Condition: stable 22:32 Discharge instructions given to patient, senior care, Instructed on discharge instructions, follow up and referral plans. Demonstrated understanding of instructions, follow-up care. 22:33 Patient left the ED. 5 Signatures: Dispatcher [employer] EDMS Enrico Nayakri, RN RN aa5 Toshia Serrato RN RN ss Anoop Rodriguez PA PA cp Mazur, Sarah, RN RN sm5 Corrections: (The following items were deleted from the chart) 19:14 17:35 Pain: Complains of pain in suprapubic area, right lower quadrant and left lower aa5 quadrant Quality of pain is described as pressure, tender, Is continuous, aa5
[2021-10-05 04:12] VITALS: TEMP 98.3
[2021-10-05 04:17] VITALS: O2SAT 100
[2021-10-05 04:18] VITALS: BP 143/74
== END 2021-10-04 22:33 | disposition home or self-care (01) ==
LOC: ER 17:12
DX: K56.41 Fecal impaction (principal); R33.9 Retention of urine, unspecified; I10 Essential (primary) hypertension; I25.2 Old myocardial infarction; Z95.1 Presence of aortocoronary bypass graft; Z95.4 Presence of other heart-valve replacement; Z86.73 Personal history of transient ischemic attack (TIA), and cerebral infarction without residual deficits; Z88.8 Allergy status to other drugs, medicaments and biological substances; Z91.048 Other nonmedicinal substance allergy status
CPT/HCPCS: 96365; 85025; 36415; 83690; 80053; 74177; 51702; 99284; Q9967; J7040; 81003; 81015

== ENCOUNTER 2021-10-05 09:55 | Emergency (ER) | payer OTHER, BC ==
--- OUTSIDE RECORDS SUMMARY | 2021-10-05 10:07 | XMS REPORT | Continuity of Care Document ---
:1930 Author Organization [facility] t Address [address] [place] [address] Care Team Providers Name Role Phone Bebeto GARCIA, [facility] Primary Care Physician Justice Guzman Attending Clinician Unavailable Hugo GARCIA, Trav Fernandez. Attending Clinician [phone] Anupam GARCIA, O. Attending Clinician Renee GARCIA [...] Date Sour ce Number BCBS FED SELECT [id number] 2015 00:00:00 MEDICARE PART A [id number] 1996 \T\ B 00:00:00 [employer] [id number] 2015 [facility] 00:00:00 - Patients Employees [facility] Center Medicare A & B [id number] 1996 [facility] 00:00:00 - Patients Medical Center [...] disease 00:00: Hospita involving involving 00 [place] coronary coronary artery artery SOB SOB Disease [...] Added automatic ally from request for surgery [id number] Small Problem Active [facility] - obstructio [facility] Nause[facility] Problem Active [facility] Hypomagnes Problem Active [facility] t. emia [facility] Leukocytos Problem Active [facility] S t. is [facility] Hypertensi Problem Active [facility] t. on [facility] History of Problem Active [facility] t. arterioscl [facility] - erotic Patient cardiovasc s [facility] Abdominal Problem Active [facility] St . pain [facility] No known No known Disease Unive rs active active ity of problems problems [facility] Allergies, Adverse Reactions, Alerts Allergy Allergy Status Severity Reaction(s) Onset Inactive Treating Comm ents Source Name Type Date Date Clinician iodine DA Active U UNKNOWN [facility] - Clear 00:00: Garcia 00 [facility] diphenhy DA Active U UNKNOWN [facility] dramine 09-05 Clear 00:00: Garcia 00 [facility] atorvast DA Active U UNKNOWN [facility] atin 09-05 Clear 00:00: Garcia 00 [facility] Diphenhy Propensi Active Itching Pt states Me [...] Atorvast Propensi Active Other (See Unknown M [facility] atsd ty to Comments) 11-30 reaction, st adverse 00:00: patient Hospita reaction 00 daughter l s to confirmed drug allergy with patients cardiolog ist. Iodine Allergy Active [facility]anc 00:00: Patient e 00 [facility] Doxazosi Allergy Active 2018-[address] [facility] [facility] substanc 00:00: Patient e 00 [facility] CARDURA DA Active U FAINTING; 2001- [facility] LOW B/P 6-12 Clear 00:00: Garcia 00 [facility] No Known DA Active U 2001- [facility] Contrast 6 Clear Allergie 00:00: Garcia s [facility] No Known DA Active U 2001-0 [facility] Food - Clear Allergie 00:00: Garcia s 00 [facility] No Known DA Active U 2001-0 [facility] Other 6- Clear Allergie 00:00: Garcia s 00 [facility] NO KNOWN Drug Active Univers ALLERGIE Class ity of S [facility] doxazosi DA Active [facility] - Patient [facility] iodine DA Active [facility] Family History Family Member Diagnosis Comments Start Date Stop Date Source Natural brother [facility] Natural father Heart disease [facility] Natural father Hypertension [facility] Natural mother Alzheimer's disease [facility] Natural sister Other [facility] Social History Social Habit Start Date Stop Date Quantity Comments Source Exposure to Not sure [facility] SARS-CoV-2 (event) [facility] History of tobacco Smoker Method [facility] use Hospital History SDOH [facility] Alcohol Frequency Hospita l History SDOH [facility] Alcohol Std Drinks Hospit al History SDOH [facility] B[facility] Alcohol intake 2021-01-10 2021-01-10 Current University of 00:00:00 00:00:00 non-drinker of [facility] alcohol (finding) Branch Tobacco use and 2021-01-10 2021-01-10 Never used Universit y of exposure 00:00:00 00:00:00 [facility] Alcohol Comment 2017-12-10 2017-12-10 ocassional [facility] 00:00:00 00:00:00 Hospital Cigarettes smoked 2017-08-07 2017-08-[address] current (pack per 00:00:00 00:00:00 Hospita l day) - Reported Cigarette 2017-08-07 2017-08-07 [facility] pack-years 00:00:00 00:00:00 Hospital Sex Assigned At [birth year] Universit y of 00:00:00 00:00:00 [facility] Smoking Status Start Date Stop Date Source Never smoker [facility] Ex-smoker 2017-08-07 00:00:00 2017-08-07 00:00:00 [facility] Medications Ordered Filled Start Stop Current Ordering Indication Dosage Frequency Signature Comments Components Source Medication Medication Date Date Medication? Clinician (SIG) Name Name ergocalcife 2021- Yes 70022O Q7D Take 1 M ethodi rol 07-16 [...] to 30 days. isosorbide 2020-06 No 20mg [id number] Take 1 Methodi dinitrate 0-25 11-25 [id number] tablet (20 st (ISORDIL) 00:00: 05:59 3D [...] up to 3 days. ergocalcife 2020- No [id number] Q7D Take 1 M ethodi rol 02-27 [...] 1 Flash as mg 00 :00 dose, [facility] 01/16/21 at Branch 0045, STAT amLODIPine Yes 10mg Take 10 mg U nivers 10 mg 7-02 by mouth ity of tablet 18:08: daily. [address] Branch aspirin 325 0 Yes 325mg Take 325 U nivers mg tablet 7-02 mg by ity of 18:08: mouth [place] 23 daily. Medical Branch valsartan-h Yes 1{tbl} Take 1 Un alma ydrochlorot 7-02 tablet by ity of hiazide 18:08: mouth [place] 160-12.5 mg 23 daily. Medica l per tablet Branch eszopiclone Yes 3mg Take 3 mg U nivers 3 mg tablet 7-02 by mouth ity of 18:08: at [place] [address] bedtime. Medical Branch cloNIDine Yes .1mg Take 0.1 Univ ers 0.1 mg 7-02 mg by ity of tablet 18:08: mouth 3 [place] 23 (three) Medical times Branch daily. apixaban Yes 2.5mg Take 2.5 Univ ers (ELIQUIS) 7-02 mg by ity of 2.5 mg 18:08: mouth 2 [place] [facility] 23 (two) Medical times Branch daily. omeprazole Yes 40mg Take 40 mg U nivers 40 mg 7-02 by mouth ity of capsule 18:08: daily. [address] Branch lisinopriL Yes 5mg Take 5 mg Un alma 5 mg tablet 7-02 by mouth ity of 18:08: daily. [address] Branch finasteride Yes 5mg Take 5 mg U nivers 5 mg tablet 7-02 by mouth ity of 18:08: daily. [address] Branch amLODIPine Yes 10mg Take 10 mg U nivers 10 mg 7-02 by mouth ity of tablet 18:08: daily. [address] Branch aspirin 325 0 Yes 325mg Take 325 U nivers mg tablet 7-02 mg by ity of 18:08: mouth [place] 23 daily. Medical Branch valsartan-h Yes 1{tbl} Take 1 Un alma ydrochlorot 7-02 tablet by ity of hiazide 18:08: mouth [place] 160-12.5 mg 23 daily. Medica l per tablet Branch eszopiclone Yes 3mg Take 3 mg U nivers 3 mg tablet 7-02 by mouth ity of 18:08: at [place] [address] bedtime. Medical Branch cloNIDine Yes .1mg Take 0.1 Univ ers 0.1 mg 7-02 mg by ity of tablet 18:08: mouth 3 [place] 23 (three) Medical times Branch daily. apixaban Yes 2.5mg Take 2.5 Univ ers (ELIQUIS) 7-02 mg by ity of 2.5 mg 18:08: mouth 2 [place] [facility] 23 (two) Medical times Branch daily. omeprazole Yes 40mg Take 40 mg U nivers 40 mg 7-02 by mouth ity of capsule 18:08: daily. [address] Branch lisinopriL Yes 5mg Take 5 mg Un alma 5 mg tablet 7-02 by mouth ity of 18:08: daily. [place] [address] Medical Branch finasteride Yes 5mg Take 5 mg U nivers 5 mg tablet 7-02 by mouth ity of 18:08: daily. [place] [address] Medical Branch amLODIPine Yes 10mg Take 10 mg U nivers 10 mg 7-02 by mouth ity of tablet 18:08: daily. [place] [address] Medical Branch aspirin 325 Yes 325mg Take 325 U nivers mg tablet 7-02 mg by ity of 18:08: mouth [place] 23 daily. Medical Branch valsartan-h Yes 1{tbl} Take 1 Un alma ydrochlorot 7-02 tablet by ity of hiazide 18:08: mouth [place] 160-12.5 mg 23 daily. Medica l per tablet Branch eszopiclone Yes 3mg Take 3 mg U nivers 3 mg tablet 7-02 by mouth ity of 18:08: at [place] [address] bedtime. Medical Branch cloNIDine Yes .1mg Take 0.1 Univ ers 0.1 mg 7-02 mg by ity of tablet 18:08: mouth 3 [place] 23 (three) Medical times Branch daily. apixaban Yes 2.5mg Take 2.5 Univ ers (ELIQUIS) 7-02 mg by ity of 2.5 mg 18:08: mouth 2 [place] tablet 23 (two) Medical times Branch daily. omeprazole Yes 40mg Take 40 mg U nivers 40 mg 7-02 by mouth ity of capsule 18:08: daily. [place] [address] Medical Branch lisinopriL 0 Yes 5mg Take 5 mg Un alma 5 mg tablet 7-02 by mouth ity of 18:08: daily. [place] [address] Medical Branch finasteride Yes 5mg Take 5 mg U nivers 5 mg tablet 7-02 by mouth ity of 18:08: daily. [place] [address] Medical Branch amLODIPine Yes 10mg Take 10 mg U nivers 10 mg 7-02 by mouth ity of tablet 18:08: daily. [place] [address] Medical Branch aspirin 325 Yes 325mg Take 325 U nivers mg tablet 7-02 mg by ity of 18:08: mouth [place] 23 daily. Medical Branch valsartan-h Yes 1{tbl} Take 1 Un alma ydrochlorot 7-02 tablet by ity of hiazide 18:08: mouth [place] 160-12.5 mg 23 daily. Medica l per tablet Branch eszopiclone Yes 3mg Take 3 mg U nivers 3 mg tablet 7-02 by mouth ity of 18:08: at [place] [address] bedtime. Medical Branch cloNIDine Yes .1mg Take 0.1 Univ ers 0.1 mg 7-02 mg by ity of tablet 18:08: mouth 3 [place] 23 (three) Medical times Branch daily. apixaban Yes 2.5mg Take 2.5 Univ ers (ELIQUIS) 7-02 mg by ity of 2.5 mg 18:08: mouth 2 [place] tablet 23 (two) Medical times Branch daily. omeprazole Yes 40mg Take 40 mg U nivers 40 mg 7-02 by mouth ity of capsule 18:08: daily. [place] [address] Medical Branch lisinopriL 0 Yes 5mg Take 5 mg Un alma 5 mg tablet 7-02 by mouth ity of 18:08: daily. [place] 23 Medical Branch finasteride Yes 5mg Take 5 mg U nivers 5 mg tablet 7-02 by mouth ity of 18:08: daily. [place] [address] Medical Branch amLODIPine Yes 10mg Take 10 mg U nivers 10 mg 7-02 by mouth ity of tablet 18:08: daily. [place] [address] Medical Branch aspirin 325 Yes 325mg Take [...] 7-02 by mouth ity of 18:08: at [place] [address] bedtime. Medical Branch cloNIDine Yes .1mg Take 0.1 Univ ers 0.1 mg 7-02 mg by ity of tablet 18:08: mouth 3 [place] 23 (three) Medical times Branch daily. apixaban Yes 2.5mg Take 2.5 Univ ers (ELIQUIS) 7-02 mg by ity of 2.5 mg 18:08: mouth 2 [place] [facility] 23 (two) Medical times Branch daily. omeprazole Yes 40mg Take 40 mg U nivers 40 mg 7-02 by mouth ity of capsule 18:08: daily. [place] [address] Medical Branch lisinopriL Yes 5mg Take 5 mg Un alma 5 mg tablet 7-02 by mouth ity of 18:08: daily. [place] [address] Medical Branch finasteride Yes 5mg Take 5 mg U nivers 5 mg tablet 7-02 by mouth ity of 18:08: daily. [place] [address] Medical Branch amLODIPine Yes 10mg Take 10 mg U nivers 10 mg 7-02 by mouth ity of tablet 18:08: daily. [place] [address] Medical Branch aspirin 325 Yes 325mg Take 325 U nivers mg tablet 7-02 mg by ity of 18:08: mouth [place] 23 daily. Medical Branch valsartan-h Yes 1{tbl} Take 1 Un alma ydrochlorot 7-02 tablet by ity of hiazide 18:08: mouth [place] 160-12.5 mg 23 daily. Medica l per tablet Branch eszopiclone Yes 3mg Take 3 mg U nivers 3 mg tablet 7-02 by mouth ity of 18:08: at [place] [address] bedtime. Medical Branch cloNIDine Yes .1mg Take 0.1 Univ ers 0.1 mg 7-02 mg by ity of tablet 18:08: mouth 3 [place] 23 (three) Medical times Branch daily. apixaban Yes 2.5mg Take 2.5 Univ ers (ELIQUIS) 7-02 mg by ity of 2.5 mg 18:08: mouth 2 [place] [facility] 23 (two) Medical times Branch daily. omeprazole Yes 40mg Take 40 mg U nivers 40 mg 7-02 by mouth ity of capsule 18:08: daily. [address] Branch lisinopriL Yes 5mg Take 5 mg Un alma 5 mg tablet 7-02 by mouth ity of 18:08: daily. [place] [address] Medical Branch finasteride Yes 5mg Take 5 mg U nivers 5 mg tablet 7-02 by mouth ity of 18:08: daily. [place] [address] Medical Branch amLODIPine Yes 10mg Take 10 mg U nivers 10 mg 7-02 by mouth ity of tablet 18:08: daily. [place] [address] Medical Branch aspirin 325 Yes 325mg Take 325 U nivers mg tablet 7-02 mg by ity of 18:08: mouth [place] 23 daily. Medical Branch valsartan-h Yes 1{tbl} Take 1 Un alma ydrochlorot 7-02 tablet by ity of hiazide 18:08: mouth [place] 160-12.5 mg 23 daily. Medica l per tablet Branch eszopiclone Yes 3mg Take 3 mg U nivers 3 mg tablet 7-02 by mouth ity of 18:08: at [place] [address] bedtime. Medical Branch cloNIDine Yes .1mg Take 0.1 Univ ers 0.1 mg 7-02 mg by ity of tablet 18:08: mouth 3 [place] 23 (three) Medical times Branch daily. apixaban Yes 2.5mg Take 2.5 Univ ers (ELIQUIS) 7-02 mg by ity of 2.5 mg 18:08: mouth 2 [place] tablet 23 (two) Medical times Branch daily. omeprazole Yes 40mg Take 40 mg U nivers 40 mg 7-02 by mouth ity of capsule 18:08: daily. [place] [address] Medical Branch lisinopriL 0 Yes 5mg Take 5 mg Un alma 5 mg tablet 7-02 by mouth ity of 18:08: daily. [place] [address] Medical Branch finasteride Yes 5mg Take 5 mg U nivers 5 mg tablet 7-02 by mouth ity of 18:08: daily. [place] [address] Medical Branch amLODIPine Yes 10mg Take 10 mg U nivers 10 mg 7-02 by mouth ity of tablet 18:08: daily. [place] [address] Medical Branch aspirin 325 Yes 325mg Take 325 U nivers mg tablet 7-02 mg by ity of 18:08: mouth [place] 23 daily. Medical Branch valsartan-h Yes 1{tbl} Take 1 Un alma ydrochlorot 7-02 tablet by ity of hiazide 18:08: mouth [place] 160-12.5 mg 23 daily. Medica l per tablet Branch eszopiclone Yes 3mg Take 3 mg U nivers 3 mg tablet 7-02 by mouth ity of 18:08: at [place] [address] bedtime. Medical Branch cloNIDine Yes .1mg Take 0.1 Univ ers 0.1 mg 7-02 mg by ity of tablet 18:08: mouth 3 [place] 23 (three) Medical times Branch daily. apixaban Yes 2.5mg Take 2.5 Univ ers (ELIQUIS) 7-02 mg by ity of 2.5 mg 18:08: mouth 2 [place] tablet 23 (two) Medical times Branch daily. omeprazole Yes 40mg Take 40 mg U nivers 40 mg 7-02 by mouth ity of capsule 18:08: daily. [place] [address] Medical Branch lisinopriL 0 Yes 5mg Take 5 mg Un alma 5 mg tablet 7-02 by mouth ity of 18:08: daily. [address] Branch finasteride Yes 5mg Take 5 mg U nivers 5 mg tablet 12-29 by mouth ity of 18:08: daily. [address] Branch Dutasteride Yes Take by Un alma -Tamsulosin 12-29 mouth. ity of 0.5-0.4 mg 18:08: [address] Branch Dutasteride Yes Take by Un alma -Tamsulosin 12-29 mouth. ity of 0.5-0.4 mg 18:08: [address] Branch Dutasteride Yes Take by Un alma -Tamsulosin 12-29 mouth. ity of 0.5-0.4 mg 18:08: [address] Branch Dutasteride Yes Take by Un alma -Tamsulosin 12-29 mouth. ity of 0.5-0.4 mg 18:08: [address] Branch Dutasteride Yes Take by Un alma -Tamsulosin 12-29 mouth. ity of 0.5-0.4 mg 18:08: [address] Branch Dutasteride Yes Take by Un alma -Tamsulosin 12-29 mouth. ity of 0.5-0.4 mg 18:08: [address] Branch Dutasteride Yes Take by Un alma -Tamsulosin 12-29 mouth. ity of 0.5-0.4 mg 18:08: [address] Branch Dutasteride Yes Take by Un alma -Tamsulosin 12-29 mouth. ity of 0.5-0.4 mg 18:08: [address] tamsulosin 2020- No .4mg QD Take [...] mouth daily [place] 4 [place] [id number] 50mg Q6H Take 50 mg M ethodi [...] by mouth ity of tablet 18:24: daily. [place] 36 Medical Branch aspirin 325 Yes 325mg [...] 7-19 by mouth ity of 18:24: at [place] [address] bedtime. Medical Branch amLODIPine Yes 10mg Take 10 mg U nivers 10 mg 7-19 by mouth ity of tablet 18:24: daily. [place] [address] Medical Branch aspirin 325 Yes 325mg Take [...] 7-19 by mouth ity of 18:24: at [place] [address] bedtime. Medical Branch Amlodipine Amlodipine Yes [address] Besylate Besylate [facility] Patient s [facility] Aspirin Aspirin Yes Daily [facility] (Aspir 81) (Aspir 81) Tal es - 81 Mg 81 Mg Patient TABLET.DR SHIPLEY.DR lino [facility] [place] Hydrochloro Hydrochloro Yes 12.[address] thiazide thiazide [facility] - (Hydrochlor (Hydrochlor P atient othiazide*) othiazide*) s 25 Mg 25 Mg Medical TABLET TABLET Center Tamsulosin Tamsulosin Yes .[address] Hcl Hcl [facility] - (Flomax*) (Flomax*) Patie nt 0.4 Mg CAP 0.4 Mg CAP [facility] Immunizations Ordered Immunization Filled Immunization Date Status Commen ts Source Name Name FLUZONE HIGH-DOSE PF 2021-04-23 Completed Meth odist 00:00:00 Hospital Vital Signs Vital Name Observation Time Observation Value Comments Source Systolic blood 2021-01-16 07:00:00 187 mm[Hg] Univer sity of pressure [facility] Diastolic blood 2021-01-16 07:00:00 90 mm[Hg] Unive rsity of pressure [facility] Heart rate 2021-01-16 07:00:00 76 /min Universi [facility] Respiratory rate 2021-01-16 07:00:00 20 /[facility] in 2021-01-16 07:00:00 97 /min [facility] Arterial blood by [facility] Pulse oximetry Branch Body temperature 2021-01-16 04:24:00 37.06 Ayana Univ ersity of [place] [facility] Body weight 2021-01-16 04:24:00 58.968 kg [facility] [place] [facility] BMI 2021-01-16 04:24:00 22.31 kg/m2 [facility] [place] [facility] Systolic blood 2021-01-11 02:55:00 175 mm[Hg] Univer sity of pressure [place] [facility] Diastolic blood 2021-01-11 02:55:00 85 mm[Hg] Unive rsity of pressure [place] [facility] Heart rate 2021-01-11 02:55:00 73 /min [facility] [place] [facility] Respiratory rate 2021-01-11 02:55:00 16 /min Univ ersity of [place] [facility] Oxygen saturation in 2021-01-11 02:55:00 96 /min University of Arterial blood by [place] [facility] Pulse oximetry Branch Body temperature 2021-01-10 23:48:00 37.22 Ayana Univ ersity of [place] [facility] Body weight 2021-01-10 23:48:00 58.968 kg [facility]i [facility] [place] [facility] BMI 2021-01-10 23:48:00 22.31 kg/m2 [facility] [place] [facility] Systolic blood 2020-12-29 18:08:00 132 mm[Hg] Univer sity of pressure [place] [facility] Diastolic blood 2020-12-29 18:08:00 65 mm[Hg] Unive rsity of pressure [place] [facility] Heart rate 2020-12-29 18:03:00 65 /min [facility] [place] [facility] Body temperature 2020-12-29 18:03:00 36.44 Ayana Univ ersity of [place] [facility] Respiratory rate 2020-12-29 18:03:00 16 /min Univ ersity of [place] [facility] Body height 2020-12-29 18:03:00 162.6 cm [facility] [place] [facility] Body weight 2020-12-29 18:03:00 59.013 kg [facility] [place] [facility] BMI 2020-12-29 18:03:00 22.33 kg/m2 [facility] [place] [facility] Oxygen saturation in 2020-12-29 18:03:00 98 /min University of Arterial blood by [place] [facility] Pulse oximetry Branch Systolic blood 2020-12-29 18:08:00 132 mm[Hg] Univer sity of pressure [facility] Diastolic blood 2020-12-29 18:08:00 65 mm[Hg] Unive rsity of [facility] Heart rate 2020-12-29 18:03:00 65 /min Universi [facility] Body temperature 2020-12-29 18:03:00 36.44 Ayana [facility] Respiratory rate 2020-12-29 18:03:00 16 /min [facility] Body height 2020-12-29 18:03:00 162.6 cm [facility] Body weight 2020-12-29 18:03:00 59.013 kg [facility] BMI 2020-12-29 18:03:00 22.33 kg/m2 [facility] Oxygen saturation in 2020-12-29 18:03:00 98 /min [facility] Arterial blood by [facility] Pulse oximetry [place] Oxygen saturation in 2021-07-13 18:02:00 94 /min [facility] Arterial blood by Pulse oximetry Heart rate 2021-07-13 17:59:00 74 /min [facility] Respiratory rate 2021-07-13 17:59:00 14 /min [facility] Systolic blood 2021-07-13 17:02:14 121 mm[Hg] [facility] pressure Diastolic blood 2021-07-13 17:02:14 63 mm[Hg] [facility] pressure Body temperature 2021-07-13 17:02:14 36.11 Ayana [facility] Body height 2021-07-08 22:41:00 162.6 cm [facility] Body weight 2021-07-08 22:41:00 58.968 kg [facility] BMI 2021-07-08 22:41:00 22.31 kg/m2 [facility] BP Diastolic 2020-09-28 12:46:00 76 mm[Hg] [facility] [place] BP Systolic 2020-09-28 12:46:00 149 mm[Hg] [facility]. [facility] Oxygen saturation by 2020-09-28 12:46:00 99 /min [facility] - Pulse oximetry Patients [facility] Heart Rate 2020-09-28 12:46:00 85 [...] Center BP Diastolic 2020-09-28 08:42:00 60 mm[Hg] [facility] BP Systolic 2020-09-28 08:42:00 141 mm[Hg] [facility] Oxygen saturation by 2020-09-28 08:42:00 96 /min [facility] - Pulse oximetry Patients [facility] BP Diastolic 2020-09-28 08:36:00 60 mm[Hg] [facility] BP Systolic 2020-09-28 08:36:00 141 mm[Hg] [facility] Oxygen saturation by 2020-09-28 08:36:00 96 /min [facility] - Pulse oximetry Patients [facility] Heart Rate 2020-09-28 08:36:00 81 /min [facility] - Patients Medica l Center Respiratory rate 2020-09-28 08:36:00 24 /min [facility] - Patients Medica [facility] Center Body Temperature 2020-09-28 08:36:00 97.4 [degF] [facility] - Patients Medica l Center Oxygen saturation by 2020-09-28 08:17:00 96 /min [facility] - Pulse oximetry Patients [facility] Heart Rate 2020-09-28 08:17:00 80 /min [facility] - Patients Medica l Center Respiratory rate 2020-09-28 08:17:00 20 /min [facility] Oxygen saturation by 2020-09-28 07:49:00 96 /min [facility] - Pulse oximetry Patients [facility] Heart Rate 2020-09-28 07:49:00 80 /min [facility] Respiratory rate 2020-09-28 07:49:00 20 /min [facility] BP Diastolic 2020-09-28 04:00:00 41 mm[Hg] [facility] BP Systolic 2020-09-28 04:00:00 107 mm[Hg] [facility] Oxygen saturation by 2020-09-28 04:00:00 96 /min [facility] - Pulse oximetry Patients [facility] Heart Rate 2020-09-28 04:00:00 85 /min [facility] Respiratory rate 2020-09-28 04:00:00 20 /min [facility] Body Temperature 2020-09-28 04:00:00 97.7 [degF] [facility] Oxygen saturation by 2020-09-28 02:48:00 98 /min [facility] - Pulse oximetry Patients [facility] Heart Rate 2020-09-28 02:48:00 85 /min [facility] Respiratory rate 2020-09-28 02:48:00 18 /min [facility] Oxygen saturation by 2020-09-28 02:40:00 95 /min [facility] - Pulse oximetry Patients [facility] Heart Rate 2020-09-28 02:40:00 87 /min [facility] Patients [facility] [facility] Respiratory rate 2020-09-28 02:40:00 20 /min [facility] [place] BP Diastolic 2020-09-28 00:00:00 59 mm[Hg] [facility] BP Systolic 2020-09-28 00:00:00 135 mm[Hg] [facility] Oxygen saturation by 2020-09-28 00:00:00 94 /min [facility] P[facility] Heart Rate 2020-09-28 00:00:00 92 [...] [facility] Heart Rate 2020-09-27 20:00:00 99 /min [facility] Respiratory rate 2020-09-27 20:00:00 18 /min [facility] Body Temperature 2020-09-27 20:00:00 98.1 [degF] [facility] Oxygen saturation by 2020-09-27 19:53:00 100 /min [facility] Heart Rate 2020-09-27 19:53:00 96 /min [facility] Respiratory rate 2020-09-27 19:53:00 18 /min [facility] Oxygen saturation by 2020-09-27 19:45:00 97 /min [facility] Heart Rate 2020-09-27 19:45:00 99 [...] [facility] Heart Rate 2020-09-27 15:21:00 103 /min [facility] 2020-09-27 15:21:00 20 /min [facility] Body Temperature 2020-09-27 15:21:00 98.5 [degF] [facility] by 2020-09-27 14:45:00 99 /min [facility] Heart Rate 2020-09-27 14:45:00 103 /min [facility] Res[facility] 2020-09-27 14:45:00 20 /min [facility] O[facility] by 2020-09-27 14:30:00 95 /min [facility] Heart Rate 2020-09-27 14:30:00 103 /min [facility] Res[facility] rate 2020-09-27 14:30:00 20 /min [facility] BP Diastolic 2020-09-27 11:13:00 56 mm[Hg] [facility] BP Systolic 2020-09-27 11:13:00 123 mm[Hg] [facility] Oxygen saturation by 2020-09-27 11:13:00 99 /min [facility] Heart Rate 2020-09-27 11:13:00 88 [...] [facility] Heart Rate 2020-09-27 08:15:00 105 [...] [facility] Heart Rate 2020-09-27 07:58:00 105 /min [facility] Respiratory rate 2020-09-27 07:58:00 16 /min [facility] Body Temperature 2020-09-27 07:58:00 97.6 [degF] [facility] Oxygen saturation by 2020-09-27 07:15:00 99 /min [facility] Heart Rate 2020-09-27 07:15:00 105 /min [facility] Respiratory rate 2020-09-27 07:15:00 16 /min [facility] Oxygen saturation by 2020-09-27 07:00:00 95 /min [facility] Heart Rate 2020-09-27 07:00:00 105 /min [facility] Respiratory rate 2020-09-27 07:00:00 16 /min [facility] Oxygen saturation by 2020-09-27 00:05:00 100 /min [facility] Heart Rate 2020-09-27 00:05:00 91 /min [facility] Respiratory rate 2020-09-27 00:05:00 20 /min [facility] Oxygen saturation by 2020-09-26 23:50:00 98 /min [facility] Heart Rate 2020-09-26 23:50:00 89 /min [facility] Respiratory rate 2020-09-26 23:50:00 20 /min [facility] BP Diastolic 2020-09-26 20:36:00 69 mm[Hg] [facility] BP Systolic 2020-09-26 20:36:00 114 mm[Hg] [facility] Oxygen saturation by 2020-09-26 20:36:00 98 /min [facility] Heart Rate 2020-09-26 20:36:00 84 [...] Center BP Systolic 2020-09-26 20:00:00 142 mm[Hg] [facility] Oxygen saturation by 2020-09-26 20:00:00 100 /min [facility] Heart Rate 2020-09-26 20:00:00 89 [...] [facility] Heart Rate 2020-09-26 16:11:00 89 /min [facility] Respiratory rate 2020-09-26 16:11:00 21 /min [facility] Body Temperature 2020-09-26 16:11:00 98.3 [degF] [facility] Oxygen saturation by 2020-09-26 13:10:00 96 /min [facility] Heart Rate 2020-09-26 13:10:00 94 /min [facility] Respiratory rate 2020-09-26 13:10:00 16 /min [facility] by 2020-09-26 12:55:00 96 /min [facility] Heart Rate 2020-09-26 12:55:00 94 /min [facility] Res[facility] rate 2020-09-26 12:55:00 16 /min [facility] Oxygen saturation by 2020-09-26 12:35:00 96 /min [facility] Heart Rate 2020-09-26 12:35:00 94 [...] [facility] Heart Rate 2020-09-26 12:12:00 100 [...] [facility] Heart Rate 2020-09-26 09:22:00 99 /min [facility] Respiratory rate 2020-09-26 09:22:00 26 /min [facility] Body Temperature 2020-09-26 09:22:00 97.4 [degF] [facility] Oxygen saturation by 2020-09-26 08:50:00 98 /min [facility] Heart Rate 2020-09-26 08:50:00 99 /min [facility] Respiratory rate 2020-09-26 08:50:00 26 /min [facility] Oxygen saturation by 2020-09-26 08:35:00 98 /min [facility] Heart Rate 2020-09-26 08:35:00 99 [...] [facility] Heart Rate 2020-09-26 07:58:00 99 [...] [facility] Heart Rate 2020-09-26 04:00:00 99 /min [facility] Respiratory rate 2020-09-26 04:00:00 20 /min [facility] Body Temperature 2020-09-26 04:00:00 97.0 [degF] [facility] Oxygen saturation by 2020-09-25 20:08:00 100 /min [facility] Heart Rate 2020-09-25 20:08:00 97 [...] [facility] Heart Rate 2020-09-25 20:00:00 99 /min [facility] Respiratory rate 2020-09-25 20:00:00 18 /min [facility] Body Temperature 2020-09-25 20:00:00 97.9 [degF] [facility] Oxygen saturation by 2020-09-25 19:53:00 97 /min [facility] Heart Rate 2020-09-25 19:53:00 94 [...] [facility] Heart Rate 2020-09-25 15:48:00 99 /min [facility] Respiratory rate 2020-09-25 15:48:00 18 /min [facility] Body Temperature 2020-09-25 15:48:00 98.0 [degF] [facility] Oxygen saturation by 2020-09-25 12:40:00 97 /min [facility] Heart Rate 2020-09-25 12:40:00 109 /min [facility] Respiratory rate 2020-09-25 12:40:00 16 /min [facility] Oxygen saturation by 2020-09-25 12:39:00 97 /min [facility] Heart Rate 2020-09-25 12:39:00 98 /min [facility] Respiratory rate 2020-09-25 12:39:00 22 /min [facility] BP Diastolic 2020-09-25 11:14:00 72 mm[Hg] [facility] BP Systolic 2020-09-25 11:14:00 98 mm[Hg] [facility] O[facility] by 2020-09-25 11:14:00 100 /min [facility] P[facility] Heart Rate 2020-09-25 11:14:00 98 /min [facility] Res[facility] rate 2020-09-25 11:14:00 22 /min [facility] Body Temperature 2020-09-25 11:14:00 97.8 [degF] [facility] BP Diastolic 2020-09-25 09:18:00 62 mm[Hg] [facility] BP Systolic 2020-09-25 09:18:00 135 mm[Hg] [facility] O[facility] by 2020-09-25 09:18:00 98 /min [facility] Pulse [facility] Heart Rate 2020-09-25 09:18:00 96 /min [facility] Res[facility] rate 2020-09-25 09:18:00 18 /min [facility] Body Temperature 2020-09-25 09:18:00 97.9 [degF] [facility] Oxygen [facility] by 2020-09-25 08:35:00 98 /min [facility] Pulse [facility] Heart Rate 2020-09-25 08:35:00 96 /min [facility] Res[facility] rate 2020-09-25 08:35:00 18 /min [facility] Oxygen saturation by 2020-09-25 08:20:00 98 /min [facility] Pulse [facility] Heart Rate 2020-09-25 08:20:00 96 /min [facility] Res[facility] rate 2020-09-25 08:20:00 18 /min [facility] BP Diastolic 2020-09-25 07:33:00 62 mm[Hg] [facility] BP Systolic 2020-09-25 07:33:00 135 mm[Hg] [facility] Oxygen saturation by 2020-09-25 07:33:00 98 /min [facility] Heart Rate 2020-09-25 07:33:00 96 [...] Center BP Systolic 2020-09-25 04:00:00 121 mm[Hg] [facility] Oxygen [facility] by 2020-09-25 04:00:00 97 /min [facility] Heart Rate 2020-09-25 04:00:00 83 [...] Center BP Systolic 2020-09-24 23:59:00 151 mm[Hg] [facility] Oxygen saturation by 2020-09-24 23:59:00 99 /min [facility] Heart Rate 2020-09-24 23:59:00 97 [...] [facility] Heart Rate 2020-09-24 20:32:00 112 /min [facility] Respiratory rate 2020-09-24 20:32:00 18 /min [facility] Body Temperature 2020-09-24 20:32:00 97.7 [degF] [facility] Oxygen saturation by 2020-09-24 20:25:00 98 /min [facility] Heart Rate 2020-09-24 20:25:00 100 /min [facility] Respiratory rate 2020-09-24 20:25:00 20 /min [facility] by 2020-09-24 20:10:00 95 /min [facility] Heart Rate 2020-09-24 20:10:00 102 [...] [facility] Heart Rate 2020-09-24 20:00:00 112 /min [facility] Res[facility] rate 2020-09-24 20:00:00 18 [...] [facility] Heart Rate 2020-09-24 17:13:00 94 /min [facility] Respiratory rate 2020-09-24 17:13:00 16 /min [facility] Body Temperature 2020-09-24 17:13:00 97.7 [degF] [facility] Oxygen saturation by 2020-09-24 14:00:00 100 /min [facility] Heart Rate 2020-09-24 14:00:00 94 /min [facility] 2020-09-24 14:00:00 16 /min [facility] Oxygen saturation by 2020-09-24 13:45:00 100 /min [facility] P[facility] Heart Rate 2020-09-24 13:45:00 94 [...] [facility] Heart Rate 2020-09-24 08:41:00 94 [...] 142 mm[Hg] [facility] by 2020-09-24 08:30:00 95 /min [facility] Pulse [facility] Heart Rate 2020-09-24 08:30:00 94 /min [facility] Res[facility] rate 2020-09-24 08:30:00 18 /min [facility] Body Temperature 2020-09-24 08:30:00 98.6 [degF] [facility] O[facility] by 2020-09-24 06:50:00 100 /min [facility] Pulse [facility] Heart Rate 2020-09-24 06:50:00 91 /min [facility] Res[facility] rate 2020-09-24 06:50:00 16 /min [facility] Oxygen saturation by 2020-09-24 06:35:00 97 /min [facility] Heart Rate 2020-09-24 06:35:00 87 /min [facility] Res[facility] rate 2020-09-24 06:35:00 16 /min [facility] Body Temperature 2020-09-24 04:00:00 97.7 [degF] [facility] BP Diastolic 2020-09-24 04:00:00 64 mm[Hg] [facility] BP Systolic 2020-09-24 04:00:00 137 mm[Hg] [facility] by 2020-09-24 04:00:00 96 /min [facility] Heart Rate 2020-09-24 04:00:00 88 /min [facility] Respiratory rate 2020-09-24 04:00:00 18 /min [facility] Oxygen saturation by 2020-09-24 01:18:00 97 /min [facility] Heart Rate 2020-09-24 01:18:00 91 /min [facility] Respiratory rate 2020-09-24 01:18:00 18 /min [facility] Oxygen saturation by 2020-09-24 01:10:00 94 /min [facility] Heart Rate 2020-09-24 01:10:00 89 [...] [facility] Heart Rate 2020-09-24 00:00:00 92 [...] [facility] Heart Rate 2020-09-23 21:42:00 105 [...] [facility] Heart Rate 2020-09-23 20:00:00 105 /min [facility] Respiratory rate 2020-09-23 20:00:00 18 /min [facility] Body Temperature 2020-09-23 20:00:00 97.9 [degF] [facility] Oxygen saturation by 2020-09-23 19:18:00 99 /min [facility] Heart Rate 2020-09-23 19:18:00 101 /min [facility] Respiratory rate 2020-09-23 19:18:00 22 /min [facility] Oxygen saturation by 2020-09-23 19:10:00 94 /min [facility] Heart Rate 2020-09-23 19:10:00 98 [...] [facility] Heart Rate 2020-09-23 16:11:00 96 /min [facility] Respiratory rate 2020-09-23 16:11:00 18 /min [facility] Body Temperature 2020-09-23 16:11:00 97.8 [degF] [facility] Oxygen saturation by 2020-09-23 14:15:00 98 /min [facility] Heart Rate 2020-09-23 14:15:00 83 /min [facility] Respiratory rate 2020-09-23 14:15:00 20 /min [facility] Oxygen saturation by 2020-09-23 14:00:00 98 /min [facility] Heart Rate 2020-09-23 14:00:00 83 /min [facility] Respiratory rate 2020-09-23 14:00:00 20 /min [facility] BP Diastolic 2020-09-23 08:50:00 63 mm[Hg] [facility] BP Systolic 2020-09-23 08:50:00 142 mm[Hg] [facility] O[facility] by 2020-09-23 08:50:00 98 /min [facility] Heart Rate 2020-09-23 08:50:00 94 [...] Center BP Systolic 2020-09-23 08:39:00 142 mm[Hg] [facility] Oxygen saturation by 2020-09-23 08:39:00 100 /min [facility] Heart Rate 2020-09-23 08:39:00 94 /min [facility] Respiratory rate 2020-09-23 08:39:00 18 /min [facility] Body Temperature 2020-09-23 08:39:00 97.4 [degF] [facility] Oxygen saturation by 2020-09-23 06:45:00 100 /min [facility] Heart Rate 2020-09-23 06:45:00 94 /min [facility] Respiratory rate 2020-09-23 06:45:00 18 /min [facility] Oxygen saturation by 2020-09-23 06:30:00 100 /min [facility] Heart Rate 2020-09-23 06:30:00 94 [...] [facility] Heart Rate 2020-09-23 04:30:00 87 /min [facility] Respiratory rate 2020-09-23 04:30:00 18 /min [facility] Body Temperature 2020-09-23 04:30:00 97.6 [degF] [facility] Oxygen saturation by 2020-09-23 00:40:00 94 /min [facility] Heart Rate 2020-09-23 00:40:00 81 [...] [facility] Heart Rate 2020-09-23 00:23:00 81 /min [facility] Respiratory rate 2020-09-23 00:23:00 18 /min [facility] Body Temperature 2020-09-23 00:23:00 98.1 [degF] [facility] BP Diastolic 2020-09-22 20:04:00 81 mm[Hg] [facility] BP Systolic 2020-09-22 20:04:00 158 mm[Hg] [facility] Oxygen saturation by 2020-09-22 20:04:00 95 /min [facility] Heart Rate 2020-09-22 20:04:00 95 /min [facility] 2020-09-22 20:04:00 18 /min [facility] Body Temperature 2020-09-22 20:04:00 97.6 [degF] [facility] Oxygen saturation by 2020-09-22 20:02:00 98 /min [facility] Heart Rate 2020-09-22 20:02:00 94 /min [facility] Respiratory rate 2020-09-22 20:02:00 20 /min [facility] Oxygen saturation by 2020-09-22 19:47:00 96 /min [facility] Heart Rate 2020-09-22 19:47:00 95 /min [facility] 2020-09-22 19:47:00 20 /min [facility] O[facility] by 2020-09-22 15:48:00 100 /min [facility] Heart Rate 2020-09-22 15:48:00 89 /min [facility] Respiratory rate 2020-09-22 15:48:00 24 /min [facility] BP Diastolic 2020-09-22 15:40:00 57 mm[Hg] [facility] BP Systolic 2020-09-22 15:40:00 143 mm[Hg] [facility] Oxygen saturation by 2020-09-22 15:40:00 98 /min [facility] Heart Rate 2020-09-22 15:40:00 90 /min [facility] Respiratory rate 2020-09-22 15:40:00 22 /min [facility] Body Temperature 2020-09-22 15:40:00 97.6 [degF] [facility] Oxygen saturation by 2020-09-22 15:33:00 96 /min [facility] Heart Rate 2020-09-22 15:33:00 88 /min [facility] Respiratory rate 2020-09-22 15:33:00 24 /min [facility] BP Diastolic 2020-09-22 11:44:00 65 mm[Hg] [facility] BP Systolic 2020-09-22 11:44:00 165 mm[Hg] [facility] Oxygen [facility] by 2020-09-22 11:44:00 100 /min [facility] Pulse [facility] Heart Rate 2020-09-22 11:44:00 81 /min [facility] rate 2020-09-22 11:44:00 23 /min [facility] Body Temperature 2020-09-22 11:44:00 97.9 [degF] [facility] Oxygen saturation by 2020-09-22 11:25:00 100 /min [facility] Pulse [facility] Heart Rate 2020-09-22 11:25:00 88 /min [facility] Oxygen saturation by 2020-09-22 11:10:00 96 /min [facility] P[facility] Heart Rate 2020-09-22 11:10:00 84 [...] [facility] Heart Rate 2020-09-22 09:27:00 84 [...] [facility] Heart Rate 2020-09-22 08:00:00 84 /min [facility] Respiratory rate 2020-09-22 08:00:00 22 /min [facility] Body Temperature 2020-09-22 08:00:00 98.0 [degF] [facility] BP Diastolic 2020-09-22 03:50:00 72 mm[Hg] [facility] BP Systolic 2020-09-22 03:50:00 144 mm[Hg] [facility] Oxygen saturation by 2020-09-22 03:50:00 97 /min [facility] Heart Rate 2020-09-22 03:50:00 93 /min [facility] Respiratory rate 2020-09-22 03:50:00 24 /min [facility] Body Temperature 2020-09-22 03:50:00 97.9 [degF] [facility] Oxygen saturation by 2020-09-22 02:17:00 100 /min [facility] Heart Rate 2020-09-22 02:17:00 92 /min [facility] Respiratory rate 2020-09-22 02:17:00 20 /min [facility] Oxygen saturation by 2020-09-22 02:02:00 100 /min [facility] Heart Rate 2020-09-22 02:02:00 88 /min [facility] Respiratory rate 2020-09-22 02:02:00 20 /min [facility] BP Diastolic 2020-09-22 00:02:00 64 mm[Hg] [facility] BP Systolic 2020-09-22 00:02:00 139 mm[Hg] [facility] Oxygen saturation by 2020-09-22 00:02:00 100 /min [facility] Heart Rate 2020-09-22 00:02:00 72 /min [facility] Respiratory rate 2020-09-22 00:02:00 20 /min [...] [facility] Heart Rate 2020-09-21 20:07:00 84 /min [facility] Respiratory rate 2020-09-21 20:07:00 24 /min [facility] [place] Body Temperature 2020-09-21 20:07:00 98.6 [degF] [facility] Oxygen saturation by 2020-09-21 20:02:00 97 /min [facility] Heart Rate 2020-09-21 20:02:00 80 /min [facility] Respiratory rate 2020-09-21 20:02:00 18 /min [facility] BP Diastolic 2020-09-21 20:00:00 96 mm[Hg] [facility] BP Systolic 2020-09-21 20:00:00 135 mm[Hg] [facility] Oxygen saturation by 2020-09-21 20:00:00 95 /min [facility] Heart Rate 2020-09-21 20:00:00 78 [...] [facility] Heart Rate 2020-09-21 16:00:00 78 /min [facility] Respiratory rate 2020-09-21 16:00:00 18 /min [facility] Body Temperature 2020-09-21 16:00:00 98.4 [degF] [facility] BP Diastolic 2020-09-21 13:02:00 90 mm[Hg] [facility] BP Systolic 2020-09-21 13:02:00 201 mm[Hg] [facility] Oxygen saturation by 2020-09-21 13:02:00 96 /min [facility] Heart Rate 2020-09-21 13:02:00 70 /min [facility] Respiratory rate 2020-09-21 13:02:00 18 /min [facility] Body Temperature 2020-09-21 13:02:00 98.3 [degF] [facility] Oxygen saturation by 2020-09-21 10:15:00 96 /min [facility] Heart Rate 2020-09-21 10:15:00 72 /min [facility] Respiratory rate 2020-09-21 10:15:00 18 /min [facility] BP Diastolic 2020-09-21 09:08:00 63 mm[Hg] [facility] BP Systolic 2020-09-21 09:08:00 150 mm[Hg] [facility] Oxygen saturation by 2020-09-21 09:08:00 95 /min [facility] Heart Rate 2020-09-21 09:08:00 63 [...] [facility] Heart Rate 2020-09-21 08:58:00 63 /min [facility] Respiratory rate 2020-09-21 08:58:00 17 /min [facility] Body Temperature 2020-09-21 08:58:00 98.0 [degF] [facility] BP Diastolic 2020-09-21 07:38:00 63 mm[Hg] [facility] BP Systolic 2020-09-21 07:38:00 150 mm[Hg] [facility] Oxygen saturation by 2020-09-21 07:38:00 95 /min [facility] Heart Rate 2020-09-21 07:38:00 63 /min [facility] Respiratory rate 2020-09-21 07:38:00 17 /min [facility] Body Temperature 2020-09-21 07:38:00 98.0 [degF] [facility] BP Diastolic 2020-09-21 04:00:00 70 mm[Hg] [facility] BP Systolic 2020-09-21 04:00:00 149 mm[Hg] [facility] Oxygen saturation by 2020-09-21 04:00:00 94 /min [facility] Heart Rate 2020-09-21 04:00:00 73 [...] [facility] Heart Rate 2020-09-21 00:00:00 76 [...] Center BP Systolic 2020-09-20 20:00:00 155 mm[Hg] [facility] Oxygen saturation by 2020-09-20 20:00:00 94 /min [facility] Heart Rate 2020-09-20 20:00:00 72 /min [facility] Respiratory rate 2020-09-20 20:00:00 20 /min [facility] Body Temperature 2020-09-20 20:00:00 98.1 [degF] [facility] Oxygen saturation by 2020-09-20 19:53:00 99 /min [facility] Heart Rate 2020-09-20 19:53:00 72 /min [facility] Respiratory rate 2020-09-20 19:53:00 16 /min [facility] Oxygen saturation by 2020-09-20 19:45:00 96 /min [facility] Heart Rate 2020-09-20 19:45:00 75 /min [facility] Respiratory rate 2020-09-20 19:45:00 18 /min [facility] BP Diastolic 2020-09-20 16:36:00 69 mm[Hg] [facility] BP Systolic 2020-09-20 16:36:00 155 mm[Hg] [facility] Oxygen saturation by 2020-09-20 16:36:00 97 /min [facility] Heart Rate 2020-09-20 16:36:00 73 /min [facility] Respiratory rate 2020-09-20 16:36:00 21 /min [facility] Body Temperature 2020-09-20 16:36:00 98.3 [degF] [facility] BP Diastolic 2020-09-20 15:47:00 60 mm[Hg] [facility] BP Systolic 2020-09-20 15:47:00 133 mm[Hg] [facility] Oxygen saturation by 2020-09-20 15:47:00 94 /min [facility] Heart Rate 2020-09-20 15:47:00 71 /min [facility] Respiratory rate 2020-09-20 15:47:00 19 /min [facility] Body Temperature 2020-09-20 15:47:00 98.1 [degF] [facility] BP Diastolic 2020-09-20 11:55:00 60 mm[Hg] [facility] BP Systolic 2020-09-20 11:55:00 133 mm[Hg] [facility] Oxygen saturation by 2020-09-20 11:55:00 94 /min [facility] Heart Rate 2020-09-20 11:55:00 71 [...] 145 mm[Hg] [facility] Oxygen saturation by 2020-09-20 09:06:00 99 /min [facility] Heart Rate 2020-09-20 09:06:00 86 /min [facility] Respiratory rate 2020-09-20 09:06:00 19 /min [facility] Body Temperature 2020-09-20 09:06:00 98.4 [degF] [facility] BP Diastolic 2020-09-20 08:58:00 66 mm[Hg] [facility] BP Systolic 2020-09-20 08:58:00 145 mm[Hg] [facility] Oxygen saturation by 2020-09-20 08:58:00 99 /min [facility] Heart Rate 2020-09-20 08:58:00 86 [...] 145 mm[Hg] [facility] Oxygen saturation by 2020-09-20 08:55:00 99 /min [facility] Heart Rate 2020-09-20 08:55:00 86 /min [facility] Respiratory rate 2020-09-20 08:55:00 19 /min [facility] Body Temperature 2020-09-20 08:55:00 98.4 [degF] [facility] BP Diastolic 2020-09-20 07:38:00 66 mm[Hg] [facility] BP Systolic 2020-09-20 07:38:00 145 mm[Hg] [facility] Oxygen saturation by 2020-09-20 07:38:00 99 /min [facility] Heart Rate 2020-09-20 07:38:00 71 /min [facility] Respiratory rate 2020-09-20 07:38:00 19 /min [facility] Body Temperature 2020-09-20 07:38:00 98.4 [degF] [facility] Oxygen saturation by 2020-09-20 07:05:00 95 /min [facility] Heart Rate 2020-09-20 07:05:00 82 /min [facility] Respiratory rate 2020-09-20 07:05:00 18 /min [facility] BP Diastolic 2020-09-20 04:00:00 61 mm[Hg] [facility] BP Systolic 2020-09-20 04:00:00 145 mm[Hg] [facility] Oxygen saturation by 2020-09-20 04:00:00 96 /min [facility] Heart Rate 2020-09-20 04:00:00 66 [...] [facility] Heart Rate 2020-09-20 00:00:00 66 [...] [facility] Heart Rate 2020-09-19 21:46:00 80 /min [facility] Respiratory rate 2020-09-19 21:46:00 18 /min [facility] Body Temperature 2020-09-19 21:46:00 97.4 [degF] [facility] Oxygen saturation by 2020-09-19 20:09:00 95 /min [facility] Heart Rate 2020-09-19 20:09:00 82 [...] [facility] Heart Rate 2020-09-19 20:00:00 80 [...] Center BP Systolic 2020-09-19 15:41:00 157 mm[Hg] [facility] Oxygen saturation by 2020-09-19 15:41:00 95 /min [facility] Heart Rate 2020-09-19 15:41:00 80 [...] Center BP Systolic 2020-09-19 12:14:00 177 mm[Hg] [facility] Oxygen saturation by 2020-09-19 12:14:00 96 /min [facility] Heart Rate 2020-09-19 12:14:00 84 [...] [facility] Heart Rate 2020-09-19 11:26:00 88 /min [facility] Respiratory rate 2020-09-19 11:26:00 16 /min [facility] Body Temperature 2020-09-19 11:26:00 98.6 [degF] [facility] Oxygen saturation by 2020-09-19 08:10:00 93 /min [facility] Heart Rate 2020-09-19 08:10:00 97 /min [facility] Respiratory rate 2020-09-19 08:10:00 20 /min [facility] BP Diastolic 2020-09-19 07:37:00 91 mm[Hg] [facility] BP Systolic 2020-09-19 07:37:00 168 mm[Hg] [facility] Oxygen saturation by 2020-09-19 07:37:00 97 /min [facility] Heart Rate 2020-09-19 07:37:00 83 [...] Center BP Systolic 2020-09-19 07:17:00 168 mm[Hg] [facility] Oxygen saturation by 2020-09-19 07:17:00 97 /min [facility] Heart Rate 2020-09-19 07:17:00 83 /min [facility] Respiratory rate 2020-09-19 07:17:00 21 /min [facility] Body Temperature 2020-09-19 07:17:00 98.1 [degF] [facility] BP Diastolic 2020-09-19 05:03:00 97 mm[Hg] [facility] BP Systolic 2020-09-19 05:03:00 157 mm[Hg] [facility] Oxygen saturation by 2020-09-19 05:03:00 93 /min [facility] Heart Rate 2020-09-19 05:03:00 91 /min [facility] Respiratory rate 2020-09-19 05:03:00 18 /min [facility] Body Temperature 2020-09-19 05:03:00 91.0 [degF] [facility] BP Diastolic 2020-09-19 01:59:00 87 mm[Hg] [facility] BP Systolic 2020-09-19 01:59:00 200 mm[Hg] [facility] [place] Oxygen saturation by 2020-09-19 01:59:00 96 /min [facility] Heart Rate 2020-09-19 01:59:00 92 /min [facility] Respiratory rate 2020-09-19 01:59:00 18 /min [facility] Body Temperature 2020-09-19 01:59:00 97.7 [degF] [facility] BP Diastolic 2020-09-18 22:57:00 86 mm[Hg] [facility] BP Systolic 2020-09-18 22:57:00 158 mm[Hg] [facility] Oxygen saturation by 2020-09-18 22:57:00 96 /min [facility] Heart Rate 2020-09-18 22:57:00 68 [...] Center BP Systolic 2020-09-18 21:58:00 158 mm[Hg] [facility] Oxygen saturation by 2020-09-18 21:58:00 96 /min [facility] Heart Rate 2020-09-18 21:58:00 68 /min [facility] Respiratory rate 2020-09-18 21:58:00 18 /min [facility] Body Temperature 2020-09-18 21:58:00 97.7 [degF] [facility] Oxygen saturation by 2020-09-18 21:16:00 93 /min [facility] Heart Rate 2020-09-18 21:16:00 97 /min [facility] Respiratory rate 2020-09-18 21:16:00 20 /min [facility] BP Diastolic 2020-09-18 15:41:00 70 mm[Hg] [facility] BP Systolic 2020-09-18 15:41:00 163 mm[Hg] [facility] Oxygen saturation by 2020-09-18 15:41:00 98 /min [facility] Heart Rate 2020-09-18 15:41:00 84 [...] [facility] Heart Rate 2020-09-18 13:00:00 86 [...] [facility] Heart Rate 2020-09-18 12:00:00 85 [...] [facility] Heart Rate 2020-09-18 11:00:00 86 [...] [facility] Heart Rate 2020-09-18 10:00:00 80 /min [facility] Respiratory rate 2020-09-18 10:00:00 19 /min [facility] BP Diastolic 2020-09-18 09:00:00 80 mm[Hg] [facility] BP Systolic 2020-09-18 09:00:00 141 mm[Hg] [facility] Oxygen saturation by 2020-09-18 09:00:00 96 /min [facility] Heart Rate 2020-09-18 09:00:00 86 [...] Center BP Systolic 2020-09-18 08:00:00 146 mm[Hg] [facility] Oxygen saturation by 2020-09-18 08:00:00 96 /min [facility] Heart Rate 2020-09-18 08:00:00 86 [...] [facility] Heart Rate 2020-09-18 07:51:00 86 /min [facility] Respiratory rate 2020-09-18 07:51:00 17 /min [facility] Body Temperature 2020-09-18 07:51:00 97.7 [degF] [facility] Oxygen saturation by 2020-09-18 07:35:00 97 /min [facility] Heart Rate 2020-09-18 07:35:00 85 [...] Oxygen saturation by 2020-09-18 07:00:00 97 /min [facility] Heart Rate 2020-09-18 07:00:00 86 [...] Center BP Systolic 2020-09-18 06:00:00 174 mm[Hg] [facility] Oxygen saturation by 2020-09-18 06:00:00 96 /min [facility] Heart Rate 2020-09-18 06:00:00 95 [...] [facility] Heart Rate 2020-09-18 05:00:00 86 /min [facility] Res[facility] rate 2020-09-18 05:00:00 18 /min [facility] BP Diastolic 2020-09-18 04:00:00 74 mm[Hg] [facility] BP Systolic 2020-09-18 04:00:00 150 mm[Hg] [facility] Oxygen saturation by 2020-09-18 04:00:00 96 /min [facility] Heart Rate 2020-09-18 04:00:00 76 /min [facility] Respiratory rate 2020-09-18 04:00:00 17 /min [facility] BP Diastolic 2020-09-18 03:00:00 88 mm[Hg] [facility] BP Systolic 2020-09-18 03:00:00 157 mm[Hg] [facility] Oxygen saturation by 2020-09-18 03:00:00 97 /min [facility] Heart Rate 2020-09-18 03:00:00 89 /min [facility] Respiratory rate 2020-09-18 03:00:00 15 /min [facility] BP Diastolic 2020-09-18 02:00:00 80 mm[Hg] [facility] BP Systolic 2020-09-18 02:00:00 145 mm[Hg] [facility] Oxygen saturation by 2020-09-18 02:00:00 96 /min [facility] Heart Rate 2020-09-18 02:00:00 95 [...] [facility] Heart Rate 2020-09-18 01:00:00 84 /min [facility] Respiratory rate 2020-09-18 01:00:00 19 /min [facility] BP Diastolic 2020-09-18 00:00:00 68 mm[Hg] [facility] BP Systolic 2020-09-18 00:00:00 144 mm[Hg] [facility] Oxygen saturation by 2020-09-18 00:00:00 97 /min [facility] Heart Rate 2020-09-18 00:00:00 89 [...] [facility] Heart Rate 2020-09-17 23:00:00 90 [...] [facility] Heart Rate 2020-09-17 22:03:00 90 [...] [facility] Heart Rate 2020-09-17 21:00:00 97 /min [facility] Respiratory rate 2020-09-17 21:00:00 19 /min [facility] Oxygen saturation by 2020-09-17 20:08:00 96 /min [facility] Heart Rate 2020-09-17 20:08:00 95 [...] [facility] Heart Rate 2020-09-17 20:00:00 105 [...] [facility] Heart Rate 2020-09-17 19:00:00 102 [...] Center BP Systolic 2020-09-17 18:00:00 146 mm[Hg] [facility] Oxygen [facility] by 2020-09-17 18:00:00 95 /min [facility] Heart Rate 2020-09-17 18:00:00 97 /min [facility] Respiratory rate 2020-09-17 18:00:00 18 /min [facility] BP Diastolic 2020-09-17 17:00:00 73 mm[Hg] [facility] BP Systolic 2020-09-17 17:00:00 134 mm[Hg] [facility] O[facility] by 2020-09-17 17:00:00 94 /min [facility] Heart Rate 2020-09-17 17:00:00 106 [...] [facility] Heart Rate 2020-09-17 16:00:00 96 /min [facility] Respiratory rate 2020-09-17 16:00:00 32 /min [facility] [facility] Body Temperature 2020-09-17 16:00:00 98.6 [degF] [facility] Oxygen saturation by 2020-09-17 15:28:00 94 /min [facility] Heart Rate 2020-09-17 15:28:00 83 /min [facility] Respiratory rate 2020-09-17 15:28:00 26 /min [facility] Oxygen saturation by 2020-09-17 15:27:00 94 /min [facility] Heart Rate 2020-09-17 15:27:00 83 [...] [facility] Heart Rate 2020-09-17 15:00:00 93 /min [facility] Respiratory rate 2020-09-17 15:00:00 24 /min [facility] Oxygen saturation by 2020-09-17 14:59:00 94 /min [facility] Heart Rate 2020-09-17 14:59:00 84 [...] [facility] Heart Rate 2020-09-17 14:00:00 109 /min [facility] Respiratory rate 2020-09-17 14:00:00 29 /min [facility] BP Diastolic 2020-09-17 13:00:00 87 mm[Hg] [facility] BP Systolic 2020-09-17 13:00:00 171 mm[Hg] [facility] by 2020-09-17 13:00:00 92 /min [facility] Heart Rate 2020-09-17 13:00:00 112 [...] [facility] Heart Rate 2020-09-17 12:00:00 112 /min [facility] Respiratory rate 2020-09-17 12:00:00 26 /min [facility] BP Diastolic 2020-09-17 11:00:00 80 mm[Hg] [facility] BP Systolic 2020-09-17 11:00:00 148 mm[Hg] [facility] Oxygen saturation by 2020-09-17 11:00:00 92 /min [facility] Heart Rate 2020-09-17 11:00:00 119 /min [facility] 2020-09-17 11:00:00 39 /min [facility] BP Diastolic 2020-09-17 10:00:00 86 mm[Hg] [facility] BP Systolic 2020-09-17 10:00:00 181 mm[Hg] [facility] Heart Rate 2020-09-17 10:00:00 105 /min [facility] Respiratory rate 2020-09-17 10:00:00 38 /min [facility] BP Diastolic 2020-09-17 09:00:00 82 mm[Hg] [facility] BP Systolic 2020-09-17 09:00:00 175 mm[Hg] [facility] [place] Oxygen saturation by 2020-09-17 09:00:00 97 /min [facility] Heart Rate 2020-09-17 09:00:00 88 /min [facility] Respiratory rate 2020-09-17 09:00:00 17 /min [facility] Body Temperature 2020-09-17 09:00:00 97.6 [degF] [facility] BP Diastolic 2020-09-17 08:00:00 77 mm[Hg] [facility] BP Systolic 2020-09-17 08:00:00 167 mm[Hg] [facility] Oxygen saturation by 2020-09-17 08:00:00 96 /min [facility] Heart Rate 2020-09-17 08:00:00 85 [...] [facility] Heart Rate 2020-09-17 07:00:00 84 /min [facility] Respiratory rate 2020-09-17 07:00:00 15 /min [facility] BP Diastolic 2020-09-17 06:00:00 87 mm[Hg] [facility] BP Systolic 2020-09-17 06:00:00 159 mm[Hg] [facility] O[facility] by 2020-09-17 06:00:00 96 /min [facility] Heart Rate 2020-09-17 06:00:00 83 /min [facility] Respiratory rate 2020-09-17 06:00:00 15 /min [facility] BP Diastolic 2020-09-17 05:00:00 74 mm[Hg] [facility] BP Systolic 2020-09-17 05:00:00 160 mm[Hg] [facility] O[facility] by 2020-09-17 05:00:00 96 /min [facility] Heart Rate 2020-09-17 05:00:00 84 [...] [facility] Heart Rate 2020-09-17 04:00:00 86 /min [facility] Respiratory rate 2020-09-17 04:00:00 22 /min [facility] BP Diastolic 2020-09-17 03:30:00 84 mm[Hg] [facility] BP Systolic 2020-09-17 03:30:00 196 mm[Hg] [facility] BP Diastolic 2020-09-17 03:00:00 82 mm[Hg] [facility] BP Systolic 2020-09-17 03:00:00 188 mm[Hg] [facility] Oxygen saturation by 2020-09-17 03:00:00 97 /min [facility] Heart Rate 2020-09-17 03:00:00 90 [...] Center BP Systolic 2020-09-17 02:00:00 154 mm[Hg] [facility] Oxygen saturation by 2020-09-17 02:00:00 95 /min [facility] Heart Rate 2020-09-17 02:00:00 88 /min [facility] Respiratory rate 2020-09-17 02:00:00 18 /min [facility] BP Diastolic 2020-09-17 01:00:00 79 mm[Hg] [facility] BP Systolic 2020-09-17 01:00:00 144 mm[Hg] [facility] Oxygen saturation by 2020-09-17 01:00:00 94 /min [facility] Heart Rate 2020-09-17 01:00:00 88 /min [facility] Res[facility] rate 2020-09-17 01:00:00 15 /min [facility] BP Diastolic 2020-09-17 00:00:00 76 mm[Hg] [facility] BP Systolic 2020-09-17 00:00:00 171 mm[Hg] [facility] O[facility] by 2020-09-17 00:00:00 96 /min [facility] Heart Rate 2020-09-17 00:00:00 92 /min [facility] Respiratory rate 2020-09-17 00:00:00 26 /min [facility] Oxygen saturation by 2020-09-16 23:05:00 95 /min [facility] Heart Rate 2020-09-16 23:05:00 77 [...] [facility] Heart Rate 2020-09-16 23:00:00 83 [...] Center BP Systolic 2020-09-16 22:12:00 137 mm[Hg] [facility] Heart Rate 2020-09-16 22:12:00 80 /min [facility] BP Diastolic 2020-09-16 22:06:00 82 mm[Hg] [facility] BP Systolic 2020-09-16 22:06:00 176 mm[Hg] [facility] Oxygen saturation by 2020-09-16 22:06:00 96 /min [facility] Heart Rate 2020-09-16 22:06:00 82 /min [facility] Respiratory rate 2020-09-16 22:06:00 18 /min [facility] BP Diastolic 2020-09-16 22:03:00 81 mm[Hg] [facility] BP Systolic 2020-09-16 22:03:00 201 mm[Hg] [facility] Oxygen saturation by 2020-09-16 22:03:00 96 /min [facility] Heart Rate 2020-09-16 22:03:00 84 /min [facility] Respiratory rate 2020-09-16 22:03:00 22 /min [facility] BP Diastolic 2020-09-16 22:00:00 86 mm[Hg] [facility] BP Systolic 2020-09-16 22:00:00 206 mm[Hg] [facility] Oxygen saturation by 2020-09-16 22:00:00 96 /min [facility] Heart Rate 2020-09-16 22:00:00 86 /min [facility] Respiratory rate 2020-09-16 22:00:00 19 /min [facility] BP Diastolic 2020-09-16 21:01:00 69 mm[Hg] [facility] BP Systolic 2020-09-16 21:01:00 153 mm[Hg] [facility] O[facility] by 2020-09-16 21:01:00 96 /min [facility] Heart Rate 2020-09-16 21:01:00 85 /min [facility] Res[facility] rate 2020-09-16 21:01:00 17 /min [facility] BP Diastolic 2020-09-16 20:44:00 111 mm[Hg] [facility] BP Systolic 2020-09-16 20:44:00 141 mm[Hg] [facility] Oxygen saturation by 2020-09-16 20:44:00 96 /min [facility] Heart Rate 2020-09-16 20:44:00 84 /min [facility] Respiratory rate 2020-09-16 20:44:00 21 /min [facility] Body Temperature 2020-09-16 20:44:00 98.0 [degF] [facility] BP Diastolic 2020-09-16 20:42:00 111 mm[Hg] [facility] BP Systolic 2020-09-16 20:42:00 141 mm[Hg] [facility] Heart Rate 2020-09-16 20:42:00 84 [...] Center BP Systolic 2020-09-16 20:00:00 185 mm[Hg] [facility] Oxygen saturation by 2020-09-16 20:00:00 96 /min [facility] Heart Rate 2020-09-16 20:00:00 96 /min [facility] Res[facility] rate 2020-09-16 20:00:00 21 /min [facility] Body Temperature 2020-09-16 20:00:00 98.0 [degF] [facility] Oxygen saturation by 2020-09-16 19:40:00 96 /min [facility] Heart Rate 2020-09-16 19:40:00 105 /min [facility] Respiratory rate 2020-09-16 19:40:00 27 /min [facility] BP Diastolic 2020-09-16 16:00:00 90 mm[Hg] [facility] BP Systolic 2020-09-16 16:00:00 175 mm[Hg] [facility] Oxygen saturation by 2020-09-16 16:00:00 96 /min [facility] Heart Rate 2020-09-16 16:00:00 108 /min [facility] Respiratory rate 2020-09-16 16:00:00 36 /min [facility] Body Temperature 2020-09-16 16:00:00 98.5 [degF] [facility] BP Diastolic 2020-09-16 13:00:00 73 mm[Hg] [facility] BP Systolic 2020-09-16 13:00:00 149 mm[Hg] [facility] Oxygen saturation by 2020-09-16 13:00:00 2 /min [facility] Heart Rate 2020-09-16 13:00:00 90 /min [facility] Respiratory rate 2020-09-16 13:00:00 15 /min [facility] BP Diastolic 2020-09-16 12:00:00 88 mm[Hg] [facility] BP Systolic 2020-09-16 12:00:00 174 mm[Hg] [facility] Oxygen saturation by 2020-09-16 12:00:00 94 /min [facility] Heart Rate 2020-09-16 12:00:00 101 /min [facility] Respiratory rate 2020-09-16 12:00:00 32 /min [facility] Body Temperature 2020-09-16 12:00:00 97.8 [degF] [facility] Oxygen saturation by 2020-09-16 11:00:00 96 /min [facility] Heart Rate 2020-09-16 11:00:00 79 /min [facility] Respiratory rate 2020-09-16 11:00:00 19 /min [facility] BP Diastolic 2020-09-16 11:00:00 81 mm[Hg] [facility] BP Systolic 2020-09-16 11:00:00 186 mm[Hg] [facility] BP Diastolic 2020-09-16 10:00:00 82 mm[Hg] [facility] BP Systolic 2020-09-16 10:00:00 166 mm[Hg] [facility] Oxygen saturation by 2020-09-16 10:00:00 95 /min [facility] Heart Rate 2020-09-16 10:00:00 82 [...] [facility] Heart Rate 2020-09-16 09:00:00 82 [...] [facility] Heart Rate 2020-09-16 08:00:00 79 [...] [facility] Heart Rate 2020-09-16 07:00:00 73 [...] [facility] Heart Rate 2020-09-16 06:00:00 87 /min [facility] Respiratory rate 2020-09-16 06:00:00 19 /min [facility] BP Diastolic 2020-09-16 05:00:00 71 mm[Hg] [facility] BP Systolic 2020-09-16 05:00:00 150 mm[Hg] [facility] O[facility] by 2020-09-16 05:00:00 96 /min [facility] Heart Rate 2020-09-16 05:00:00 89 /min [facility] Respiratory rate 2020-09-16 05:00:00 22 /min [facility] BP Diastolic 2020-09-16 04:00:00 71 mm[Hg] [facility] BP Systolic 2020-09-16 04:00:00 139 mm[Hg] [facility] O[facility] by 2020-09-16 04:00:00 96 /min [facility] Heart Rate 2020-09-16 04:00:00 85 [...] [facility] Heart Rate 2020-09-16 03:00:00 82 /min [facility] Respiratory rate 2020-09-16 03:00:00 15 /min [facility] Body Temperature 2020-09-16 03:00:00 98.5 [degF] [facility] BP Diastolic 2020-09-16 02:00:00 66 mm[Hg] [facility] BP Systolic 2020-09-16 02:00:00 140 mm[Hg] [facility] Oxygen saturation by 2020-09-16 02:00:00 95 /min [facility] Heart Rate 2020-09-16 02:00:00 83 /min [facility] Respiratory rate 2020-09-16 02:00:00 17 /min [facility] BP Diastolic 2020-09-16 01:00:00 70 mm[Hg] [facility] BP Systolic 2020-09-16 01:00:00 164 mm[Hg] [facility] Oxygen saturation by 2020-09-16 01:00:00 96 /min [facility] Heart Rate 2020-09-16 01:00:00 84 [...] [facility] Heart Rate 2020-09-16 00:00:00 77 /min [facility] Respiratory rate 2020-09-16 00:00:00 20 /min [facility] Body Temperature 2020-09-16 00:00:00 98.6 [degF] [facility] BP Diastolic 2020-09-15 23:00:00 59 mm[Hg] [facility] BP Systolic 2020-09-15 23:00:00 143 mm[Hg] [facility] O[facility] by 2020-09-15 23:00:00 95 /min [facility] Heart Rate 2020-09-15 23:00:00 79 /min [facility] Respiratory rate 2020-09-15 23:00:00 18 /min [facility] BP Diastolic 2020-09-15 22:00:00 55 mm[Hg] [facility] BP Systolic 2020-09-15 22:00:00 133 mm[Hg] [facility] Oxygen saturation by 2020-09-15 22:00:00 94 /min [facility] Heart Rate 2020-09-15 22:00:00 78 [...] [facility] Heart Rate 2020-09-15 21:00:00 79 /min [facility] Respiratory rate 2020-09-15 21:00:00 17 /min [facility] by 2020-09-15 20:50:00 94 /min [facility] Heart Rate 2020-09-15 20:50:00 81 /min [facility] Respiratory rate 2020-09-15 20:50:00 18 /min [facility] BP Diastolic 2020-09-15 20:00:00 56 mm[Hg] [facility] BP Systolic 2020-09-15 20:00:00 165 mm[Hg] [facility] O[facility] by 2020-09-15 20:00:00 97 /min [facility] Heart Rate 2020-09-15 20:00:00 76 /min [facility] Respiratory rate 2020-09-15 20:00:00 22 /min [facility] Oxygen saturation by 2020-09-15 19:00:00 96 /min [facility] Respiratory rate 2020-09-15 19:00:00 14 /min [facility] Body Temperature 2020-09-15 19:00:00 98.7 [degF] [facility] BP Diastolic 2020-09-15 18:00:00 115 mm[Hg] [facility] BP Systolic 2020-09-15 18:00:00 154 mm[Hg] [facility] Oxygen saturation by 2020-09-15 18:00:00 94 /min [facility] Heart Rate 2020-09-15 18:00:00 79 /min [facility] Respiratory rate 2020-09-15 18:00:00 19 /min [facility] BP Diastolic 2020-09-15 17:00:00 65 mm[Hg] [facility] BP Systolic 2020-09-15 17:00:00 154 mm[Hg] [facility] Oxygen saturation by 2020-09-15 17:00:00 95 /min [facility] Heart Rate 2020-09-15 17:00:00 71 /min [facility] Respiratory rate 2020-09-15 17:00:00 18 /min [facility] BP Diastolic 2020-09-15 16:00:00 75 mm[Hg] [facility] BP Systolic 2020-09-15 16:00:00 159 mm[Hg] [facility] by 2020-09-15 16:00:00 94 /min [facility] Heart Rate 2020-09-15 16:00:00 75 /min [facility] Res[facility] rate 2020-09-15 16:00:00 16 /min [facility] BP Diastolic 2020-09-15 15:14:00 71 mm[Hg] [facility] BP Systolic 2020-09-15 15:14:00 169 mm[Hg] [facility] Oxygen saturation by 2020-09-15 15:14:00 100 /min [facility] Heart Rate 2020-09-15 15:14:00 75 [...] [facility] Heart Rate 2020-09-15 15:10:00 74 /min [facility] Respiratory rate 2020-09-15 15:10:00 18 /min [facility] BP Diastolic 2020-09-15 14:50:00 84 mm[Hg] [facility] BP Systolic 2020-09-15 14:50:00 176 mm[Hg] [facility] O[facility] by 2020-09-15 14:50:00 100 /min [facility] Heart Rate 2020-09-15 14:50:00 81 /min [facility] Respiratory rate 2020-09-15 14:50:00 18 /min [facility] BP Diastolic 2020-09-15 14:40:00 94 mm[Hg] [facility] BP Systolic 2020-09-15 14:40:00 200 mm[Hg] [facility] Oxygen saturation by 2020-09-15 14:40:00 97 /min [facility] Heart Rate 2020-09-15 14:40:00 96 /min [facility] Respiratory rate 2020-09-15 14:40:00 16 /min [facility] BP Diastolic 2020-09-15 14:25:00 96 mm[Hg] [facility] BP Systolic 2020-09-15 14:25:00 175 mm[Hg] [facility] Oxygen saturation by 2020-09-15 14:25:00 98 /min [facility] Heart Rate 2020-09-15 14:25:00 99 [...] [facility] Heart Rate 2020-09-15 11:14:00 70 /min [facility] Respiratory rate 2020-09-15 11:14:00 18 /min [facility] Body Temperature 2020-09-15 11:14:00 97.6 [degF] [facility] BP Diastolic 2020-09-15 08:52:00 75 mm[Hg] [facility] BP Systolic 2020-09-15 08:52:00 171 mm[Hg] [facility] Oxygen saturation by 2020-09-15 08:52:00 92 /min [facility] Heart Rate 2020-09-15 08:52:00 74 [...] Center BP Systolic 2020-09-15 07:45:00 171 mm[Hg] [facility] Oxygen saturation by 2020-09-15 07:45:00 92 /min [facility] Heart Rate 2020-09-15 07:45:00 74 [...] [facility] Heart Rate 2020-09-15 04:00:00 68 [...] Center BP Systolic 2020-09-15 00:00:00 140 mm[Hg] [facility] Oxygen saturation by 2020-09-15 00:00:00 94 /min [facility] Heart Rate 2020-09-15 00:00:00 72 [...] [facility] Heart Rate 2020-09-14 20:27:00 90 [...] [facility] Heart Rate 2020-09-14 20:00:00 90 [...] Center BP Systolic 2020-09-14 15:47:00 155 mm[Hg] [facility] Oxygen saturation by 2020-09-14 15:47:00 95 /min [facility] Heart Rate 2020-09-14 15:47:00 85 [...] Center BP Systolic 2020-09-14 11:15:00 165 mm[Hg] [facility] Oxygen saturation by 2020-09-14 11:15:00 93 /min [facility] Heart Rate 2020-09-14 11:15:00 89 /min [facility] Respiratory rate 2020-09-14 11:15:00 19 /min [facility] Body Temperature 2020-09-14 11:15:00 98.3 [degF] [facility] BP Diastolic 2020-09-14 07:49:00 67 mm[Hg] [facility] BP Systolic 2020-09-14 07:49:00 166 mm[Hg] [facility] O[facility] saturation by 2020-09-14 07:49:00 93 /min [facility] Heart Rate 2020-09-14 07:49:00 88 /min [facility] Respiratory rate 2020-09-14 07:49:00 18 /min [facility] Body Temperature 2020-09-14 07:49:00 97.9 [degF] [facility] BP Diastolic 2020-09-14 07:31:00 67 mm[Hg] [facility] BP Systolic 2020-09-14 07:31:00 166 mm[Hg] [facility] Oxygen saturation by 2020-09-14 07:31:00 93 /min [facility] Heart Rate 2020-09-14 07:31:00 88 /min [facility] Respiratory rate 2020-09-14 07:31:00 18 /min [facility] Body Temperature 2020-09-14 07:31:00 97.9 [degF] [facility] BP Diastolic 2020-09-14 04:00:00 74 mm[Hg] [facility] BP Systolic 2020-09-14 04:00:00 175 mm[Hg] [facility] Oxygen saturation by 2020-09-14 04:00:00 94 /min [facility] Heart Rate 2020-09-14 04:00:00 94 [...] [facility] Heart Rate 2020-09-14 00:00:00 90 [...] [facility] Heart Rate 2020-09-13 20:12:00 88 [...] [facility] Heart Rate 2020-09-13 20:00:00 88 [...] 140 mm[Hg] [facility] Oxygen saturation by 2020-09-13 16:11:00 94 /min [facility] Heart Rate 2020-09-13 16:11:00 78 [...] [facility] Heart Rate 2020-09-13 12:08:00 82 [...] [facility] Heart Rate 2020-09-13 11:16:00 79 [...] [facility] Heart Rate 2020-09-13 08:45:00 79 [...] [facility] Heart Rate 2020-09-13 04:00:00 87 [...] [facility] Heart Rate 2020-09-13 00:00:00 76 [...] [facility] Heart Rate 2020-09-12 22:28:00 96 [...] [facility] Heart Rate 2020-09-12 22:18:00 96 /min [facility] Respiratory rate 2020-09-12 22:18:00 18 /min [facility] Body Temperature 2020-09-12 22:18:00 97.9 [degF] [facility] BP Diastolic 2020-09-12 20:23:00 92 mm[Hg] [facility] BP Systolic 2020-09-12 20:23:00 150 mm[Hg] [facility] Oxygen saturation by 2020-09-12 20:23:00 96 /min [facility] Heart Rate 2020-09-12 20:23:00 95 /min [facility] Respiratory rate 2020-09-12 20:23:00 18 /min [facility] Body Temperature 2020-09-12 20:23:00 97.9 [degF] [facility] - Patients [facility] Oxygen saturation by 2020-09-12 20:11:00 96 /min [facility] Oxygen saturation by 2020-09-12 18:25:00 98 /min [facility] Oxygen saturation by 2020-09-12 15:35:00 98 /min [facility] Procedures Procedure Date / Time Performing Clinician Source Performed XR CHEST 1 VW PORTABLE 2021-07-12 01:01:53 Freeman Crabtree [facility] COVID-19 ANTI-SPIKE IGG 2021-07-11 10:41:00 [facility] ANTIBODY TITER COVID-19 SEROLOGY PATIENT 2021-07-11 10:41:00 [facility] SURVEILLANCE HC COMPLETE BLD COUNT 2021-07-11 10:41:00 [facility] W/AUTO DIFF BASIC METABOLIC PANEL 2021-07-11 10:41:00 [facility] ESTIMATED GFR 2021-07-11 10:41:00 [facility] URINE CULTURE 2021-07-11 06:57[facility] 2021-07-11 04:07:00 Latrell Sharpe [facility] MICROSCOPY, WITH REFLEX TO CULTURE POC GLUCOSE 2021-07-11 00:27:00 [facility] POC GLUCOSE 2021-07-10 14:52:00 [facility] HC COMPLETE BLD COUNT 2021-07-10 10:51:00 [facility] W/AUTO DIFF BASIC METABOLIC PANEL 2021-07-10 10:51:00 [facility] ESTIMATED GFR 2021-07-10 10:51:00 [facility] POC GLUCOSE 2021-07-10 02:09:00 [facility] CT CHEST WO CONTRAST 2021-07-09 21:47:19 [facility] HC COMPLETE BLD COUNT 2021-07-09 11:14:00 [facility] W/AUTO DIFF BASIC METABOLIC PANEL 2021-07-09 11:14:00 [facility] ESTIMATED GFR 2021-07-09 11:14:00 [facility] BLOOD CULTURE, AEROBIC & 2021-07-09 08:54[facility] R[facility] TROPONIN T 2021-07-09 07:57:00 [facility] THYROID STIMULATING 2021-07-09 07:57:00 [facility] HORMONE T4, FREE 2021-07-09 07:57:00 [facility] LIPID PANEL 2021-07-09 07:57:00 [facility] INTERLEUKIN 6 2021-07-09 07:57:00 [facility] CRP HIGH SENSITIVITY 2021-07-09 07:57:00 [facility] LDH 2021-07-09 07:57:00 [facility] D-DIMER 2021-07-09 07:57:00 [facility] PROCALCITONIN 2021-07-09 07:57:00 [facility] PROTHROMBIN TIME WITH INR 2021-07-09 07:57:00 [facility] SEDIMENTATION RATE 2021-07-09 07:57:00 [facility] FERRITIN LEVEL 2021-07-09 07:57:00 [facility] ECG 12-LEAD 2021-07-09 06:58:43 [facility] XR CHEST 1 VW PORTABLE 2021-07-09 05:32:00 [facility] Trav R. TROPONIN T 2021-07-09 04:50:00 [facility] CT HEAD WO CONTRAST 2021-07-09 01:50:00 [facility] Trav RhCun COVID-19 QUALITATIVE 2021-07-09 01:34:00 [facility] RT-PCR Trav Lockhart COVID-19 OMICRON VARIANT 2021-07-09 01:34:00 [facility] QUALITATIVE RT-PCR Trav RChun HC COMPLETE BLD COUNT 2021-07-09 01:34:00 [facility] W/AUTO DIFF Trav RChun PROTHROMBIN TIME WITH INR 2021-07-09 01:34:00 [facility] Trav RChun PARTIAL THROMBOPLASTIN 2021-07-09 01:34:00 [facility] TIME (PTT) Trav RChun BASIC METABOLIC PANEL 2021-07-09 01:34:00 [facility] Trav R. TROPONIN T 2021-07-09 01:34:00 [facility] B NATRIURETIC PEPTIDE 2021-07-09 01:34:00 [facility] Trav R. ESTIMATED GFR 2021-07-09 01:34:00 [facility] barry Ravi RChun ECG 12-LEAD 2021-07-08 22:51:26 [facility] barry Ravi RChun CT RENAL STONE PROTOCOL 2021-07-01 18:38:22 [facility] URINALYSIS 2021-07-01 18:13:00 [facility] HC COMPLETE BLD COUNT 2021-04-23 10:03:00 [facility] W/AUTO DIFF BASIC METABOLIC PANEL 2021-04-23 10:03:00 [facility] ESTIMATED GFR 2021-04-23 10:03:00 [facility] CT CARDIAC OVERREAD 2021-04-20 15:36:45 [facility] CV CTA CORONARY ARTERIES 2021-04-20 15:36:00 Bebeto [facility] W CONTRAST HC COMPLETE BLD COUNT 2021-04-20 11:45:00 [facility] W/AUTO DIFF BASIC METABOLIC PANEL 2021-04-20 11:45:00 [facility] ESTIMATED GFR 2021-04-20 11:45:00 [facility] POC GLUCOSE 2021-04-19 13:28:00 [facility] CV CARDIAC PET STRESS 2021-04-19 13:18:51 Bebeto [facility] TEST CV CARDIAC PET MYOCARDIAL 2021-04-19 13:18:51 Bebeto [facility] PERFUSION IMAGING TROPONIN 2021-04-19 09:43:00 Jaclyn Tate Ho spital BASIC METABOLIC PANEL 2021-04-19 09:43:00 Bebeto [facility] ESTIMATED GFR 2021-04-19 09:43:00 Rafy Tateammilan Burns spital TTE LIMITED W CONTRAST, W 2021-04-18 17:20:00 Bebeto [facility] DOPPLER ([id number]) HC COMPLETE BLD COUNT 2021-04-18 14:31:00 [facility] W/AUTO DIFF BASIC METABOLIC PANEL 2021-04-18 14:31:00 [facility] ESTIMATED GFR 2021-04-18 14:31:00 [facility] B NATRIURETIC PEPTIDE 2021-04-18 09:20:00 Bebeto [facility] HC COMPLETE BLD COUNT 2021-04-16 08:35:00 [facility] W/AUTO DIFF BASIC METABOLIC PANEL 2021-04-16 08:35:00 [facility] ESTIMATED GFR 2021-04-16 08:35:00 [facility] POC GLUCOSE 2021-04-15 15:09:00 [facility] BASIC METABOLIC PANEL 2021-04-14 09:00:00 [facility] ESTIMATED GFR 2021-04-14 09:00:00 [facility] HC COMPLETE BLD COUNT 2021-04-14 08:40:00 [facility] W/AUTO DIFF PARTIAL THROMBOPLASTIN 2021-04-14 08:40:00 Rafy Tateammed [facility] TIME (PTT) PARTIAL THROMBOPLASTIN 2021-04-13 22:47:00 Bebeto [facility] TIME (PTT) HC COMPLETE BLD COUNT 2021-04-13 15:52:00 [facility] W/AUTO DIFF HC COMPLETE BLD COUNT 2021-04-13 11:34:00 [facility] W/AUTO DIFF SMEAR REVIEW 2021-04-13 11:34:00 [facility] HC COMPLETE BLD COUNT 2021-04-13 09:55:00 [facility] W/AUTO DIFF BASIC METABOLIC PANEL 2021-04-13 09:55:00 [facility] B NATRIURETIC PEPTIDE 2021-04-13 09:55:00 Bebeto [facility] ESTIMATED GFR 2021-04-13 09:55:00 [facility] PARTIAL THROMBOPLASTIN 2021-04-13 09:55:00 Jaclyn Tate [facility] TIME (PTT) TROPONIN 2021-04-13 09:00:00 [facility] 2021-04-13 02:20:00 Bebeto [facility] TIME (PTT) TROPONIN 2021-04-12 23:00:00 Char Palomo spital TROPONIN 2021-04-12 15:34:00 [facility] PR[facility] TIME WITH INR 2021-04-12 15:34:00 Attzulay [facility] PARTIAL THROMBOPLASTIN 2021-04-12 15:34:00 Attzulay [facility] TIME (PTT) ANTI XA APIXABAN 2021-04-12 15:34:00 Rafy Tateammilan Burns ospital TTE COMPLETE, WO 2021-04-12 14:14:00 Rafy Tateammilan Burns ospital CONTRAST, W DOPPLER ([id number]) TROPONIN 2021-04-12 09:21:00 Char Palomo spital B NATRIURETIC PEPTIDE 2021-04-12 09:21:00 Stacia Char [facility] MAGNESIUM LEVEL 2021-04-12 09:21:00 [facility] PHOSPHORUS LEVEL 2021-04-12 09:21:00 [facility] XR CHEST 1 VW PORTABLE 2021-04-12 08:46:00 [facility] ECG 12-LEAD 2021-04-12 08:03:09 [facility] COVID-19 ANTI-SPIKE IGG 2021-04-12 08:01:00 [facility] ANTIBODY TITER COVID-19 SEROLOGY PATIENT 2021-04-12 08:01:00 [facility] SURVEILLANCE HC COMPLETE BLD COUNT 2021-04-12 08:01:00 [facility] W/AUTO DIFF BASIC METABOLIC PANEL 2021-04-12 08:01:00 [facility] LIPID PANEL 2021-04-12 08:01:00 [facility] THYROID STIMULATING 2021-04-12 08:01:00 [facility] HORMONE T4, FREE 2021-04-12 08:01:00 [facility] ESTIMATED GFR 2021-04-12 08:01:00 [facility] RESPIRATORY PATHOGEN 2021-04-12 07:27:00 Char Palomo [facility] PANEL WITH COVID-19 RT-PCR US DUPLEX VENOUS LOWER 2021-03-10 01:23:00 [facility] EXTREMITY BILATERAL XR CHEST 1 VW 2021-03-10 00:19:00 CelestinOfelia spital COMPREHENSIVE METABOLIC 2021-03-10 00:17:00 [facility] PANEL CBC WITH PLATELET AND 2021-03-10 00:17:00 [facility] DIFFERENTIAL B NATRIURETIC PEP, I-STAT 2021-03-10 00:17:00 [facility] TROPONIN, I-STAT 2021-03-10 00:17:00 Ofelia Celestinist H ospital ESTIMATED GFR 2021-03-10 00:17:00 Fawad Ofeliamolly HerreraAnabaptism Ho spital MANUAL DIFFERENTIAL 2021-03-10 00:17:00 [facility] ECG ED PRELIMINARY 2021-03-10 00:16:14 [facility] INTERPRETATION ECG 12-LEAD 2021-03-09 23:55:17 [facility] Ho spital HC COMPLETE BLD COUNT 2021-02-23 09:51:00 [facility] W/AUTO DIFF BASIC METABOLIC PANEL 2021-02-23 09:51:00 [facility] ESTIMATED GFR 2021-02-23 09:51:00 [facility] HC COMPLETE BLD COUNT 2021-02-22 09:32:00 [facility] W/AUTO DIFF BASIC METABOLIC PANEL 2021-02-22 09:32:00 [facility] ESTIMATED GFR 2021-02-22 09:32:00 [facility] HC COMPLETE BLD COUNT 2021-02-21 09:50:00 [facility] W/AUTO DIFF BASIC METABOLIC PANEL 2021-02-21 09:50:00 [facility] LIPID PANEL 2021-02-21 09:50:00 [facility] ESTIMATED GFR 2021-02-21 09:50:00 [facility] COVID-19 ANTI-SPIKE IGG 2021-02-20 23:58:00 [facility] ANTIBODY TITER COVID-19 SEROLOGY PATIENT 2021-02-20 23:58:00 [facility] SURVEILLANCE THYROID STIMULATING 2021-02-20 23:58:00 [facility] HORMONE T4, FREE 2021-02-20 23:58:00 [facility] FERRITIN LEVEL 2021-02-20 23:58:00 [facility] LDH 2021-02-20 23:58:00 [facility] SEDIMENTATION RATE 2021-02-20 23:58:00 [facility] CRP HIGH SENSITIVITY 2021-02-20 23:58:00 [facility] INTERLEUKIN 6 2021-02-20 23:58:00 [facility] PROCALCITONIN 2021-02-20 23:58:00 [facility] D-DIMER 2021-02-20 23:58:00 [facility] PROTHROMBIN TIME WITH INR 2021-02-20 23:58:00 [facility] TROPONIN, I-STAT 2021-02-20 15:35:00 [facility] COVID-19 QUALITATIVE 2021-02-20 14:41[facility]00 [facility] PE CHEST 2021-02-20 13:52:50 Osmel Fowler [facility] US DUPLEX VENOUS LOWER 2021-02-20 12:59:[address] [facility] EXTREMITY RIGHT Narendra URINALYSIS 2021-02-20 12:35:00 [facility] XR CHEST 1 VW PORTABLE 2021-02-20 12:15:13 Isaac Quiles [facility] Narendra BASIC METABOLIC PANEL 2021-02-20 12:10:00 Isaac Quiles [facility] Narendra ESTIMATED GFR 2021-02-20 12:10:00 Isaac Quiles spital Narendra RESPIRATORY PATHOGEN 2021-02-20 12:05:00 Kb [facility] PANEL WITH COVID-19 Narendra RT-PCR COMPREHENSIVE METABOLIC 2021-02-20 11:55:00 Isaac Quiles [facility] PANEL Narendra CBC WITH PLATELET AND 2021-02-20 11:55:00 Isaac Quiles [facility] DIFFERENTIAL Narendra CREATINE KINASE, TOTAL 2021-02-20 11:55:00 Isaac Quiles [facility] ([facility] Narendra TROPONIN, I-STAT 2021-02-20 11:55:00 Vadim Calix [facility] ESTIMATED GFR 2021-02-20 11:55:00 Isaac Quiles spital Narendra PROTHROMBIN TIME WITH 2021-02-20 11:55:00 Isaac Quiles [facility] INR, I-STAT Narendra MANUAL DIFFERENTIAL 2021-02-20 11:55:00 Isaac Quiles [facility] Narendra ECG 12-LEAD 2021-02-20 11:33:15 Isaac Quiles spital Narendra ECG ED PRELIMINARY 2021-02-20 11:32:10 Isaac Quiles [facility] INTERPRETATION Narendra PHYSICIAN ORDERS 2021-01-24 05:01:00 Doctor Bryson, [facility] Name Medical Branch CT CERVICAL SPINE WO 2021-01-16 05:11:15 Mumtaz Swanson [facility] CONTRAST Medical Branch CT HEAD WO CONTRAST 2021-01-16 05:11:15 Mumtaz Swanson [facility] [place] NOTICE OF PRIVACY 2021-01-16 04:10:39 Doctor Bryson, [facility] PRACTICES [facility] CT HEAD WO CONTRAST 2021-01-11 01:54:48 Sushma Juarez [facility] [place] CONSENT/REFUSAL FOR 2021-01-10 23:21:01 Doctor Bryson, [facility] DIAGNOSIS AND TREATMENT [facility] NOTICE OF PRIVACY 2020-12-29 19:06:49 Doctor Unassigned, [facility] PRACTICES [facility] CONSENT/REFUSAL FOR 2020-12-29 19:06:22 Doctor Unassigned, [facility] DIAGNOSIS AND TREATMENT [facility] ASSIGNMENT OF BENEFITS 2020-12-29 19:06:04 Doctor Unassigned, [facility] ASSIGNMENT OF BENEFITS 2020-12-29 17:51:14 Doctor Unassigned, [facility] HC COMPLETE BLD COUNT 2020-12-03 10:00:00 [facility] W/AUTO DIFF BASIC METABOLIC PANEL 2020-12-03 09:00:00 [facility] ESTIMATED GFR 2020-12-03 09:00:00 [facility] MRI BRAIN WO CONTRAST 2020-12-02 17:48:00 [facility] BASIC METABOLIC PANEL 2020-12-02 08:52:00 [facility] ESTIMATED GFR 2020-12-02 08:52:00 [facility] HC COMPLETE BLD COUNT 2020-12-02 08:38:00 [facility] W/AUTO DIFF US CAROTID DUPLEX 2020-12-01 20:45:00 [facility] BILATERAL TTE COMPLETE, WO 2020-12-01 16:39:21 [facility] CONTRAST, W DOPPLER ([id number]) HC COMPLETE BLD COUNT 2020-12-01 09:30:00 [facility] W/AUTO DIFF BASIC METABOLIC PANEL 2020-12-01 09:00:00 [facility] ESTIMATED GFR 2020-12-01 09:00:00 [facility] LIPID PANEL 2020-12-01 02:15:00 [facility] THYROID STIMULATING 2020-12-01 02:15:00 [facility] HORMONE T4, FREE 2020-12-01 02:15:00 [facility] TROPONIN 2020-12-01 02:15:00 [facility] HEMOGLOBIN A1C 2020-12-01 01:15:00 [facility] URINALYSIS, AUTOMATED 2020-11-30 22:23:00 [facility] WITH MICROSCOPY Олег COVID-19 QUALITATIVE 2020-11-30 21:44:00 [facility] RT-PCR [facility] CT HEAD WO CONTRAST 2020-11-30 19:03:25 [facility] CT ANGIOGRAM PE CHEST 2020-11-30 19:03:13 [facility] ECG ED PRELIMINARY 2020-11-30 17:08:13 [facility] INTERPRETATION [facility] HC COMPLETE BLD COUNT 2020-11-30 16:15:00 [facility] W/AUTO DIFF [facility] PROTHROMBIN TIME WITH INR 2020-11-30 16:15:00 [facility] TH[facility]IN 2020-11-30 16:15:00 [facility] TIME (PTT) [facility] COMPREHENSIVE METABOLIC 2020-11-30 16:15:00 [facility] PANEL [facility] TROPONIN 2020-11-30 16:15:00 [facility] B NATRIURETIC PEPTIDE 2020-11-30 16:15:00 [facility] ESTIMATED GFR 2020-11-30 16:15:00 [facility] 2020-11-30 16:15:00 [place] [facility] ECG 12-LEAD 2020-11-30 15:58:05 [facility] Олег Computed tomography of 2020-09-20 00:00:00 RUSTAM Bruno - chest with contrast [facility] Exploratory laparotomy 2020-09-15 00:00:00 RUSTAM Bruno - Patients [facility] Center CT of abdomen and pelvis 2020-03-02 00:00:00 [facility] - without contrast Patients [facility] EXTERNAL PROVIDER RECORDS 2019-01-27 05:01:00 Doctor Unassigned, [facility] Plan of Care Planned Activity Planned Date Details Comments Source Future Scheduled 2021-08-08 65+ PNEUMOCOCCAL [facility] Test 13:10:32 VACCINE (1 of 4 - PCV13) [code = 65+ PNEUMOCOCCAL VACCINE (1 of 4 - PCV13)] Future Scheduled 2021-08-08 SHINGLES VACCINES (#1) [facility] Test 13:10:32 [code = SHINGLES VACCINES (#1)] Future Scheduled 2021-08-08 COVID-19 VACCINE (3 - Me [facility] Test 13:10:32 Booster for Moderna series) [code = COVID-19 VACCINE (3 - Booster for Moderna series)] Encounters Start End Encounter Admission Attending Care Care Encounter Source Date/Time Date/Time Type Type Clinicians Facility Department ID 2021-04-30 Emergency [facility] [id number] [facility] [id number] Univers 08:16:39 [facility] 2020-09-12 Inpatient [facility] [id number] [facility] 15:27:00 -20200912 [facility] 2021-09-16 2021-09-16 Emergency EM Thomas, HCACL TERRI [id number] [facility] 04:48:00 10:42:00 Justice [facility] 2021-09-16 2021-09-16 Emergency EM Thomas, HCACL HCACL [id number] [facility] 04:48:00 10:42:00 Justice 13 [facility] 2021-09-05 2021-09-05 Emergency EM Thomas, HCACL TERRI [id number] 02 [facility] 15:16:00 17:36:00 Justice [facility] 2021-09-05 2021-09-05 Emergency EM Thomas, HCACL HCACL [id number] [facility] 15:16:00 17:36:00 Justice 84 [facility] 2021-07-08 2021-07-13 [facility] Trav Arias2.84 0.1 [id number] Methodi 16:46:00 12:51:00 Encounter Vadim Calix 31570.1.[address] 3.430.2.7 Hospit a .3.051504 l .8 2021-07-08 2021-07-08 Travel 1.2.840.1 1.2.611.856 7896 [id number] Methodi 00:00:00 00:00:[address] 3.430.2.7 0.2.7.3.698 Ho spita .3.783305 084.8 l .8 2021-07-01 2021-07-01 Emergency Renee, 1.2.840.1 [id number] Methodi 11:41:00 13:43:[address] 3.430.2.7 Hospit a .3.338550 l .8 2021-06-18 2021-06-18 Outpatient 2030_Biopsy [place] [address] 754-365 [place] 12:38:00 12:38:00 [address] [facility] 2021-05-03 2021-05-03 Telephone Jessica 1.2.840.1 [id number] 2099 [id number] Methodi 00:00:00 00:00:00 Ros Fernandez 09325.1.[address] 3.430.2.7 Hospit a .3.717413 l .8 2021-04-11 2021-04-23 [facility] Anupam, 1.2.840.1 [id number] 030 [id number] Methodi 23:25:00 17:41:00 Encounter Vadim Briscoe 95072.1.[address] 3.430.2.7 Hospit a .3.634907 l .8 2021-04-19 2021-04-19 [facility] Bebeto, 1.2.840.1 [id number] 69091 Methodi 07:00:00 23:59:00 Encounter Jaclyn 77760.1.1 627 s t 3.430.2.7 Hospit a .3.508122 l .8 2021-03-09 2021-03-09 Emergency Ofelia Celestin 1.2.840.1 [id number] Methodi 18:40:00 21:02:[address] 3.430.2.7 Hospit a .3.672986 l .8 2021-03-09 2021-03-09 Travel 1.2.840.1 1.2.874.034 6913 302174 Methodi 00:00:00 00:00:[address] 3.430.2.7 0.2.7.3.698 Ho spita .3.338053 084.8 l .8 2021-02-20 2021-02-23 [facility] 1.2.840.1 104 259555 [id number] Methodi 06:07:00 13:24:00 Encounter Vadim Calix 73026.1.[address] 3.430.2.7 Hospit a .3.029693 l .8 2021-02-20 2021-02-20 Travel 1.2.840.1 1.2.288.620 7586 321227 Methodi 00:00:00 00:00:[address] 3.430.2.7 0.2.7.3.698 Ho spita .3.730186 084.8 l .8 2021-01-30 2021-01-30 Outpatient R HESHAM [facility] [id number] Univers 14:30:00 14:30:00 WONDIFUL ity o f [facility] 2021-01-24 2021-01-24 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, [facility] 1.2.8 40.114 [id number] Univers 15:50:12 16:05:12 Visit David Joe 350.1.13.1 0 itN[place] 4.2.7.2.686 [place] [phone] [address] 2021-01-24 2021-01-24 Outpatient R [facility] [id number] -20 Univers 16:00:00 16:00:00 [id number] ity of [facility] 2021-01-24 2021-01-24 Outpatient R ANTHONY [facility] [id number] Univers 16:00:00 16:00:00 DAVID ity of [facility] 2021-01-24 2021-01-24 Orders Doctor DAVID 1.2.840.114 [id number] Univers 00:00:00 00:00:00 Only Unassigned, GREGORY 350.1.13.10 ity of [place] [facility] 4.2.7.2.686 Flash as [phone] [facility] [address] 2021-01-15 2021-01-16 Emergency [facility] 1.2.176.722 8474 8437 Univers 23:22:00 03:17:00 Mumtaz Tineo 350.1.13.10 i ty [place].7.2.686 [place] [phone] [facility] 0[address] 2021-01-10 2021-01-10 Emergency Sagar Holland [facility] 1.2.840.114 85 [id number] Univers 18:49:00 22:03:00 May Tineo 350.1.13.10 i [place] 4.2.7.2.686 [place] [phone] [facility] 084 Branch 2020-12-29 2020-12-29 [facility] 1.2.840.114 84425 847 Univers 14:04:19 23:59:00 Encounter Melody Tineo 350.1.13.10 [place] 4.2.7.2.686 [place] 499.7932873 [facility] 807 [address] 2020-12-29 2020-12-29 [facility] 1.2.840.114 [id number] 846 Univers 14:00:00 14:03:00 Encounter Melody Tineo 350.1.13.10 [place] of [place] 4.2.7.2.686 [place] [phone] [facility] 8[address] 2020-12-29 2020-12-29 Outpatient [facility] [id number] -20 Univers 14:00:00 14:00:00 [facility] [id number] [facility] 2020-12-29 2020-12-29 [facility] 1.2.840.114 [id number] Univers 12:52:54 13:35:06 Visit Melody [facility] 350.1.13.10 i ty of [place] 4.2.7.2.686 Flash as Professio [phone] Co dical [address] Office Building One 2020-12-29 2020-12-29 [facility] 1.2.840.114 [id number] 81 12:52:54 13:35:06 Visit Melody [facility] 350.1.13.10 [place] 4.2.7.2.686 Professio [phone] nal [address] [place] [address] One 2020-12-29 2020-12-29 Outpatient R [facility] [id number] Univers 13:00:00 13:00:00 MELODY [facility] 2020-12-29 2020-12-29 Orders Doctor DAVID 1.2.840.114 [id number] Univers 00:00:00 00:00:00 Only Unassigned, GREGORY 350.1.13.10 ity of [place] [facility] 4.2.7.2.686 Flash as [phone] [address] 2020-11-30 2020-12-04 [facility] Elliot Parkinson 1.2.840.1 [id number] Methodi 10:51:00 15:23:00 Encounter Vadim Calix 20686.1.[address] 3.430.2.7 Hospit a .3.668153 l .8 2020-11-30 2020-11-30 Travel 1.2.840.1 1.2.954.963 3487 600097 Methodi 00:00:00 00:00:[address] 3.430.2.7 0.2.7.3.698 Ho spita .3.679927 084.8 l .8 2020-09-12 2020-09-28 Discharged 1 SAINI, [facility] [id number] [facility] 19:18:00 13:20:00 Inpatient SOUHEIL Patients 99 [facility] 2020-03-02 2020-03-02 Outpatient [facility] [id number] 14:00:00 14:00:00 -[id number] [place] - Patient [facility] 2020-03-02 2020-03-02 Registered 3 YENY, [facility] [id number] 13:32:00 13:32:00 Clinic JEANNINE Patients 29 [facility] 2020-02-24 2020-02-24 Outpatient [facility] [id number] 14:00:00 14:00:00 -20200224 [place] - Patient [facility] 2020-02-23 2020-02-23 Outpatient [facility] [id number] 12:00:00 12:00:00 -20200223 [place] - Patient [facility] 2019-01-27 2019-01-27 Orders Doctor DAVID 1.2.840.114 [id number] Univers 00:00:00 00:00:00 Only Unassigned, GREGORY 350.1.13.10 ity of [place] [facility] 4.2.7.2.[phone] [facility] hemal 009 Branch Results Test Description Test Time Test Comments Results Result [facility] e Comments - CT C-SPINE W/O 2021-09-16 CONT 00:00:00 [facility]: JUSTICE HARDY : 1930 Sex: M Name: JUSTICE HARDY [facility] : 1930 Age/S: 89 / M [address] [place] [address] Unit #: [id number] Loc: [place] [address] Phys: Kezia Tolbert Acct: [id number] Dis Date: Status: PRE ER PHONE #: [phone] Exam Date: 09/16/2021 05 FAX #: [phone] Reason: FALL OUT OF BED, NECK PAIN EXAMS: CPT CODE: [id number] CT C-SPINE W/O CONT 47339 PROCEDURE INFORMATION: Exam: CT Cervical Spine Without [...] - CT HEAD/BRAIN 2021-09-16 W/O CONT 00:00:00 [facility] : 1930 Sex: M Name: JUSTICE HARDY [facility] : 1930 Age/S: 89 / M [address] [place] [address] Blvd Unit #: [id number] Loc: [place] [address] Phys: Kezia Tolbert APRNNP Acct: [id number] Dis Date: Status: PRE ER PHONE #: [phone] Exam Date: 09/16/2021537 FAX #: [phone] Reason: FALL OUT OF BED, HEAD INJURY EXAMS: CPT CODE: [id number] CT HEAD/BRAIN W/O CONT 20436 PROCEDURE INFORMATION: Exam: CT Head Without Contrast [...] - XR CHEST 1 V 2021-09-16 00:00:00 [facility] : 1930 Sex: M FAX: Shadi Rosales MD [phone] [place]: St: REG FAX: Kezia Tolbert APR [phone] Name: JUSTICE HARDY [facility] : 1930 Age/S: 89/M [address] [place] [address] Unit #: [id number] Loc: [place] [address] Phys: Kezia Tolbert Acct: [id number] Dis Date: Status: REG ER PHONE #: [phone] Exam Date: 09/16/2021 0601 FAX #: [phone] Reason: FALL OUT OF BED EXAMS: CPT CODE: [id number] XR CHEST 1 V 93680 PROCEDURE INFORMATION: Exam: XR Chest Exam date [...] Report - XR PELVIS 07/012021-09-16 VIEWS 00:00:00 [facility]: JUSTICE HARDY : 1930 Sex: M FAX: Shadi Rosales MD [phone] [place]: St: REG FAX: Kezia Tolbert APR [phone] Name: HARDYCORNELIAJUSTICE [facility] : 1930 Age/S: 89/M [address] [place] [address] Unit #: [id number] Loc: [place] [address] Phys: Kezia Tolbert APRNNP Acct: [id number] Dis Date: Status: REG ER PHONE #: [phone] Exam Date: 09/16/2021 0603 FAX #: [phone] Reason: PELVIC PAIN EXAMS: CPT CODE: [id number] XR PELVIS 1/2 VIEWS 38058 PROCEDURE INFORMATION: Exam: XR Pelvis Exam date [...] Report - XR T-SPINE 3V 2021-09-16 00:00:00 [facility] : 1930 Sex: M FAX: Shadi Rosales MD [phone] [place]: St: [facility] FAX: Kezia Tolbert APR [phone] Name: JUSTICE HARDY [facility] : 1930 Age/S: 89/M [address] [place] [address] Unit #: [id number] Loc: [place] [address] Phys: Kezia Tolbert Acct: [id number] Dis Date: Status: REG ER PHONE #: [phone] Exam Date: 09/16/2021 06 FAX #: [phone] Reason: BACK PAIN EXAMS: CPT CODE: [id number] XR T-SPINE 3V 21290 PROCEDURE INFORMATION: Exam: XR Thoracic Spine Exam [...] Fang M.D. CC: Shadi Pritchard MD; Kezia Tolebrt Technologist: RT Yolanda(R) Trnscrd Date/Time/By: 09/16/2021 (629) : By: [email or web address] [facility] Print D/T: S: 09/16/2021 (629) PAGE 1 Signed Report - XR PELVIS 07/012021-09-05 VIEWS 00:00:00 [facility] [place]: JUSTICE HARDY : 1930 Sex: M FAX: Justice Guzman MD [phone] [place]: St: [facility] FAX: Shadi Rosales MD [phone] Name: JUSTICE HARDY [facility] : 1930 Age/S: 89/M [address] [place] [address] Unit #: [id number] Loc: [place] [address] Phys: Justice Guzman MD Acct: [id number] Dis Date: Status: REG ER PHONE #: [phone] Exam Date: 09/05/2021 1714 FAX #: [phone] Reason: fall EXAMS: CPT CODE: [id number] XR PELVIS 1/2 VIEWS 50542 PROCEDURE INFORMATION: Exam: XR Pelvis Exam date [...] By: BernardM Orig Print D/T: S: 09/05/2021 (6041) PAGE 1 Signed Report - CT HEAD/BRAIN 2021-09-05 W/O CONT 00:00:00 [facility] : 1930 Sex: M Name: JUSTICE HARDY [facility] : 1930 Age/S: 89 / M [address] [place] [address] Unit #: [id number] Loc: [place] [address] Phys: NancyTierney N APRNN Acct: [id number] Dis Date: Status: REG ER PHONE #: [phone] Exam Date: 09/05/2021 1604 FAX #: [phone] Reason: FALL FROM CHAIR, HEAD PAIN, ON ELIQUIS EXAMS: CPT CODE: [id number] CT HEAD/BRAIN W/O CONT 25434 PROCEDURE INFORMATION: Exam: CT Head Without Contrast [...] 1 Signed Report (CONTINUED) Name: JUSTICE HARDY [facility] : 1930 Age/S: 89 / M [address] [place] [address] Unit #: [id number] Loc: [place] [address] Phys: Tierney Cruz Acct: [id number] Dis Date: Status: REG ER PHONE #: [phone] Exam Date: 09/05/2021 1604 FAX #: [phone] Reason: FALL FROM CHAIR, HEAD PAIN, ON ELIQUIS EXAMS: CPT CODE: [id number] CT HEAD/BRAIN W/O CONT 30486 <Continued> CC: Tierney Cruz Technologist:RT Mariel(R)(CT) CTDI: DLP: Trnscb Date/Time: 09/05/2021 (1622) [email or web address] [facility] Print D/T: S: 09/05/2021 (1622) PAGE 2 Signed Report Urine culture 2021-07-11 07:18:43 Test Item Value Reference Range Interpretation Comme nts Urine culture (test code = 1551460) SEE COMMENT Bacteriuria screen negative. [facility] sttjdau3497-23-10 00:28:29 Test Item Value Reference Range Interpretation Comments POC glucose (test code 140 mg/dL 65-99 H Opera tor Name: Theodore = 64870-4) Ga ID : [id number] able: [facility] Notified inventory and pricing associate Interpretation Abnormal (test code = 41052-7) [facility] 12 ptbi6042-85-79 21:20:43 Test Item Value Reference Range Interpretation Comments Ventricular rate (test code = 253) Atrial rate (test code = 255) AL interval (test code = 266) QRSD interval [...] product )-Septal infarct , age undetermined-Abnormal ECG- [facility] SystemCv stress dmpr2776-10-79 11:08:47 Test Item Value Reference Range Interpretation Comments Resting HR (test code = 6243896250) Resting BP (test code 132&63 = 1033797511) Peak MET Achieved (test code = 6751705978) Protocol Name (test Lexiscan code = 7620078748) Time in Exercise 00:01:00 Phase (test code = 1708989837) Max Systolic BP (test code = 1968974827) Max Diastolic BP (test code = 7080015892) Max Heart Rate (test code = 2259017894) Max Predicted Heart Rate (test code = 2155607961) Target HR Formula (220 - Age)*100% (test code = 4023780842) Test Indication (test Screening for CAD code = 2891430517) Arrhy During Ex (test code = 6349323781) ECG Interp Before EX (test code = 3996208456) ECG Interp During Ex (test code = 7578135779) Ex Summary Comment (test code = 5087321245) Overall HR Response to Exercise (test code = 7398865928) Overall BP Response To Exercise (test code = 8375621845) Reason for Protocol Complete Termination (test code = 8523104561) Stress Test -Waveform interpreted in Impression (test code report associated with = 1066689970) image study. No interpretation is provided as part of this Stress ECG report.-Electronically Signed By Venu GARCIA, David Camarena ([id number]), market editor Sylvia Henriquez ([id number]) on 04/21/2021 6:08:42 AM [facility] System[facility] HEAD WO ZBBWCDTM8904-66-86 01:56:56 No acute intracranial abnormality. CT HEAD [...] and mastoidair cells are clear. Left pseudophakia. [facility], Radiant Results Inft User - 01/10/2021 [...] cells are clear. Left pseudophakia.IMPRESSIONNo acute intracranial abnormality.[facility] leukocytes automated count (number/volume)2020-09-28 05:25:00 Test Item Value Reference Range Interpretation Comments White Blood Count (test code = 6690-2) 10.37 4.8-10.8 [facility] count (number/volume)2020-09-28 05:25:00 Test Item Value Reference Range Interpretation Comments Red Blood Count (test code = 789-8) 3.00 4.3-5.7 [facility] hemoglobin measurement (moles/volume)2020-09-28 05:25:00 Test Item Value Reference Range Interpretation Comments Hemoglobin (test code = 15703-1) 9.1 14.0-18.0 [facility] Lancaster[facility]ated blood hematocrit (volume fraction)2020-09-28 05:25:00 Test Item Value Reference Range Interpretation Comments Hematocrit (test code = 4544-3) 26.0 38.2-49.6 [facility] erythrocyte mean corpuscular kvlqzq2650-18-36 05:25:00 Test Item Value Reference Range Interpretation Comments Mean Corpuscular Volume (test code = 86.7 81-99 787-2) [facility] eryth[facility] mean corpuscular hemoglobin (mass per erythrocyte)2020-09-28 05:25:00 Test Item Value Reference Range Interpretation Comments Mean Corpuscular Hemoglobin (test code 30.3 28-32 = 785-6) [facility] erythrocyte mean corpuscular hemoglobin concentration measurement (mass/volume)2020-09-28 05:25:00 Test Item Value Reference Range Interpretation Comments Mean Corpuscular Hemoglobin Concent 35.0 31-35 (test code = 786-4) [facility] LancasterRDW RjmQu-Hkq7724-00-01 05:25:00 Test Item Value Reference Range Interpretation Comments Red Cell Distribution Width (test code 16.1 11.7-14.4 = 18675-2) [facility] blood platelet count (count/volume)2020-09-28 05:25:00 Test Item Value Reference Range Interpretation Comments Platelet Count (test code = 777-3) 253 140-360 [facility] Lancaster[facility] blood segmented neutrophil count as percentage of total lmeavabkfv4713-59-78 05:25:00 Test Item Value Reference Range Interpretation Comments Neutrophils (%) (Auto) (test code = 77.9 38.7-80.0 77075-8) [facility] lymphocyte count as percentage ot total nczpcgjfqv2434-10-39 05:25:00 Test Item Value Reference Range Interpretation Comments Lymphocytes (%) (Auto) (test code = 12.3 18.0-39.1 736-9) [facility] monocyte count as percentage of total wzniosvygc1308-49-01 05:25:00 Test Item Value Reference Range Interpretation Comments Monocytes (%) (Auto) (test code = 6.4 4.4-11.3 5905-5) [facility] Lancaster[facility] blood eosinophil count as percentage of total wzdpjatgee7023-41-00 05:25:00 Test Item Value Reference Range Interpretation Comments Eosinophils (%) (Auto) (test code = 1.8 0.0-6.0 713-8) [facility] blood basophil count as percentage of total peqwpzabud1922-15-80 05:25:00 Test Item Value Reference Range Interpretation Comments Basophils (%) (Auto) (test code = 0.4 0.0-1.0 706-2) [facility] LancasterFluoroscopic procedure less than one hour bfphzift0212-92-40 05:25:00 Test Item Value Reference Range Interpretation Comments IM GRANULOCYTES % (test code = IM 1.2 0.0-1.0 GRANULOCYTES %) [facility] Lancaster[facility] blood neutrophil count 2020-09-28 05:25:00 Test Item Value Reference Range Interpretation Comments Neutrophils # (Auto) (test code = 8.1 2.1-6.9 751-8) [facility] lymphocytes count (number/volume) 2020-09-28 05:25:00 Test Item Value Reference Range Interpretation Comments Lymphocytes # (Auto) (test code = 1.3 1.0-3.2 97702-6) [facility] monocytes automated count (number/volume)2020-09-28 05:25:00 Test Item Value Reference Range Interpretation Comments Monocytes # (Auto) (test code = 742-7) 0.7 0.2-0.8 [facility] LancasterAutom[facility] blood eosinophil count 2020-09-28 05:25:00 Test Item Value Reference Range Interpretation Comments Eosinophils # (Auto) (test code = 0.2 0.0-0.4 711-2) [facility] LancasterAutom[facility] blood basophil count (count/volume)2020-09-28 05:25:00 Test Item Value Reference Range Interpretation Comments Basophils # (Auto) (test code = 704-7) 0.0 0.0-0.1 [facility] LancasterFluoroscopic procedure less than one hour fpiyzkxg2727-27-97 05:25:00 Test Item Value Reference Range Interpretation Comments Absolute Immature Granulocyte (auto 0.12 0-0.1 (test code = Absolute Immature Granulocyte (auto) [facility] sodium measurement (moles/volume)2020-09-28 05:25:00 Test Item Value Reference Range Interpretation Comments Sodium Level (test code = 2951-2) 132 136-145 [facility] potassium measurement (moles/volume)2020-09-28 05:25:00 Test Item Value Reference Range Interpretation Comments Potassium Level (test code = 2823-3) 3.3 3.5-5.1 [facility] chloride measurement (moles/volume)2020-09-28 05:25:00 Test Item Value Reference Range Interpretation Comments Chloride Level (test code = 2075-0) 106 98-107 [facility] carbon dioxide, total measurement (moles/volume)2020-09-28 05:25:00 Test Item Value Reference Range Interpretation Comments Carbon Dioxide Level (test code = -2027-9) [facility] anion nnv4239-13-36 05:25:00 Test Item Value Reference Range Interpretation Comments Anion Gap (test code = 16823-8) 9.3 8-16 [facility] urea nitrogen measurement (mass/volume)2020-09-28 05:25:00 Test Item Value Reference Range Interpretation Comments Blood Urea Nitrogen (test code = 18 7- 3094-0) [facility] creatinine measurement (mass/volume)2020-09-28 05:25:00 Test Item Value Reference Range Interpretation Comments Creatinine (test code = 2160-0) 0.83 0.72-1.25 [facility] urea nitrogen/creatinine mass pirmn1027-50-03 05:25:00 Test Item Value Reference Range Interpretation Comments BUN/Creatinine Ratio (test code = 22 6- 3097-3) [facility] LancasterEstimated glomerular filtration rate (GFR) zpmqgchqfhtzm3723-20-07 05:25:00 Test Item Value Reference Range Interpretation Comments Estimat Glomerular > 60 See_Comment [Automat ed message] The Filtration Rate (test system which generated code = 796326488) this resul t transmitted reference range : 60-. The reference r duane was not used to int erpret this result as normal/abnormal . [facility] LancasterGlucose lhbngilqtcr8158-09-36 05:25:00 Test Item Value Reference Range Interpretation Comments Glucose Level (test code = MHK2652) 104 74-118 [facility] calcium measurement (mass/volume)2020-09-28 05:25:00 Test Item Value Reference Range Interpretation Comments Calcium Level (test code = 84228-7) 7.4 8.4-10.2 [facility] plasma total bilirubin measurement (mass/volume)2020-09-28 05:25:00 Test Item Value Reference Range Interpretation Comments Total Bilirubin (test code = 1975-2) 0.7 0.2-1.2 [facility] LancasterFluoroscopic procedure less than one hour wkacmatx8634-44-31 05:25:00 Test Item Value Reference Range Interpretation Comments Aspartate Amino Transf (AST/SGOT) (test 74 5-34 code = Aspartate Amino Transf (AST/SGOT)) [facility] alanine aminotransferase measurement (enzymatic activity/volume)2020-09-28 05:25:00 Test Item Value Reference Range Interpretation Comments Alanine Aminotransferase (ALT/SGPT) 107 0-55 (test code = 1742-6) [facility] protein measurement (mass/volume)2020-09-28 05:25:00 Test Item Value Reference Range Interpretation Comments Total Protein (test code = 2885-2) 4.2 6.5-8.1 [facility] albumin measurement (mass/volume)2020-09-28 05:25:00 Test Item Value Reference Range Interpretation Comments Albumin (test code = 1751-7) 1.9 3.5-5.0 [facility] LancasterPlasma globulin measurement (mass/volume) 2020-09-28 05:25:00 Test Item Value Reference Range Interpretation Comments Globulin (test code = 84216-1) 2.3 2.3-3.5 [facility] albumin/globulin mass ugzpr1093-67-30 05:25:00 Test Item Value Reference Range Interpretation Comments Albumin/Globulin Ratio (test code = 0.8 0.8-2.0 1759-0) [facility] alkaline phosphatase measurement (enzymatic activity/volume)2020-09-28 05:25:00 Test Item Value Reference Range Interpretation Comments Alkaline Phosphatase (test code = 100 40-150 6768-6) [facility] LancasterTroponin I measurement by highly sensitive enzyme djuajsdteyw5386-37-35 05:25:00 Test Item Value Reference Range Interpretation Comments Troponin I (test code = 15826-9) 0.109 0-0.300 [facility]ING[facility] (PORTABLE)2020-09-26 10:41:00[facility] : 1930 Sex: [place] [address] Patient Name: JUSTICE HARDY MR #: [id number] : 1930 Age/Sex: 89/M Req #: [id number] Adm Physician: ZACHARIAH SAINI MD Ordered by: ARASH CASTORENA MD Report #: [id number] Location: MED/SURG Room/Bed: [facility] Procedure: [id number] DX/CHEST SINGLE (PORTABLE) Exam Date: 09/26/20 Exam [...] CASTORENA MDABDOMEN 2 VIEW 2020-09-26 09:13:00 [facility] : 1930 Sex: [place] [address] Patient Name: JUSTICE HARDY MR #: [id number] : 1930 Age/Sex: 89/M Req #: [id number] Adm Physician: ZACHARIAH SAINI MD Ordered by: JEANNINE SAINI MD Report #: [id number] Location: MED/SURG Room/Bed: [facility] Procedure: [id number] DX/ABDOMEN 2 VIEW Exam Date: 09/26/20 Exam [...] Natriuretic Peptide (test code = 50.2 0-100 49866-3) [facility] amyl[facility] (enzymatic activity/volume)2020-09-26 05:17:00 Test Item Value Reference Range Interpretation Comments Amylase Level (test code = 1798-8) 98 25-125 [facility] lipase measurement (enzymatic activity/volume)2020-09-26 05:17:00 Test Item Value Reference Range Interpretation Comments Lipase (test code = 3040-3) 98 8-78 [facility]ABDOM[facility] 2 [id number] 23:59:00 [facility] : 1930 Sex: [place] [address] Patient Name: JUSTICE HARDY MR #: [id number] : 1930 Age/Sex: 89/M Req #: [id number] Adm Physician: ZACHARIAH SAINI MD Ordered by: JEANNINE SAINI MD Report #: [id number] Location: MED/SURG Room/Bed: [facility] Procedure: [id number] DX/ABDOMEN 2 VIEW Exam Date: 09/24/20 Exam [...] levels are seen in the right hemiabdomen. Winston lucency in the upper abdomen on the upright view projecting over the T12 vertebral body , likely represents pneumoperitoneum IMPRESSION: 1. Overall appearance of postsurgical ileus with diffuse mildly dilated small bowel and distended air distended colon to the level of the rectum. Distal obstruction is not excluded. Recommend radiographic follow-up until resolution. 2. Winston lucency projecting over the T12 vertebral body may represent pneumoperitoneum as seen on recent chest CT, possibly related to recent surgery. Signed by: Patricia Wheat MD on 09/25/2020 12:48 AM Dictated By: TIESHA WHEAT MD Transcribed By: AYDEN on 09/25/2047 COPY TO: JEANNINE SAINIerum or plasma magnesium measurement (mass/volume)2020-09-23 16:40:00 Test Item Value Reference Range Interpretation Comments Magnesium Level (test code = 76455-7) 1.5 1.3-2.1 [facility] LancasterFluoroscopic procedure less than one hour cmiynezz9913-66-23 08:51:00 Test Item Value Reference Range Interpretation Comments Differential Total Cells Counted (test 100 code = Differential Total Cells Counted) [facility]100 leukocytes 2020-09-22 08:51:00 Test Item Value Reference Range Interpretation Comments Neutrophils % (Manual) (test code = 86 40-74 68301-2) [facility] blood band neutrophils form/100 pitipopwqy5631-65-00 08:51:00 Test Item Value Reference Range Interpretation Comments Band Neutrophils % (test code = 764-1) 0 [facility] blood lymphocytes/100 leukocytes 2020-09-22 08:51:00 Test Item Value Reference Range Interpretation Comments Lymphocytes % (Manual) (test code = 7 19-48 737-7) [facility] blood monocytes/100 leukocytes 2020-09-22 08:51:00 Test Item Value Reference Range Interpretation Comments Monocytes % (Manual) (test code = 7 3.4-9.0 744-3) [facility] LancasterAutomated reticulocyte count as percentage of total ooatxevszstb9007-56-68 05:15:00 Test Item Value Reference Range Interpretation Comments Percent Reticulocyte Count (test code = 1.5 0.8-2.2 06614-4) [facility] iron measurement (mass/volume)2020-09-21 05:15:00 Test Item Value Reference Range Interpretation Comments Iron Level (test code = 2498-4) 26 65-175 [facility] iron binding capacity measurement (mass/volume)2020-09-21 05:15:00 Test Item Value Reference Range Interpretation Comments Total Iron Binding Capacity (test code 193 502-158 = 2500-7) [facility] iron saturation measurement (mass fraction)2020-09-21 05:15:00 Test Item Value Reference Range Interpretation Comments Percent Iron Saturation (test code = 13 15-50 2502-3) [facility] plasma transferrin measurement (mass/volume)2020-09-21 05:15:00 Test Item Value Reference Range Interpretation Comments Transferrin (test code = 3034-6) 138 328-364 [facility] LancasterBlood cobalamin (vitamin B12) measurement (mass/volume)2020-09-21 05:15:00 Test Item Value Reference Range Interpretation Comments Vitamin B12 Level (test code = 71637-7) 591 213816 [facility] folate measurement (mass/volume)2020-09-21 05:15:00 Test Item Value Reference Range Interpretation Comments Folate (test code = 2284-8) 17.8 >3.0 [facility] LancasterCT CHEST Q8711-32-28 21:42:00 [facility] : 1930 Sex: [place] [address] Patient Name: JUSTICE HARDY MR #: [id number] : 1930 Age/Sex: 89/M Req #: [id number] Adm Physician: ZACHARIAH SAINI MD Ordered by: AJ FLYNN DO Report #: [id number] Location: MED/SURG Room/Bed: [facility] Procedure: [id number] CT/CT CHEST W Exam Date: 09/20/20 Exam Time: 2114 REPORT STATUS: Signed EXAM: CT Chest WITH contrast 09/20/2020 9:15 PM INDICATION: PE [id number] 2114 COMPARISON: None TECHNIQUE: Chest was scanned [...] 09/20/202199 COPY TO: AJ FLYNN DO Phosphorus ukmpefafyor2201-21-81 03:45:00 Test Item Value Reference Range Interpretation Comments Phosphorus Level (test code = RIM5637) 0.8 2.3-4.7 [facility] LancasterCHES SINGLE (PORTABLE)2020-09-17 15:26:00[facility] : 1930 Sex: [place] [address] Patient Name: JUSTICE HARDY MR #: [id number] : 1930 Age/Sex: 89/M Req #: [id number] Adm Physician: ZACHARIAH SAINI MD Ordered by: ZACHARIAH SAINI MD Report #: [id number] Location: ICU Room/Bed: [place] [address] Procedure: [id number] DX/CHEST SINGLE (PORTABLE) Exam Date: 09/17/20 Exam [...] (PT) in platelet poor plasma by coagulation undof1017-85-43 10:55:00 Test Item Value Reference Range Interpretation Comments Prothrombin Time (test code = 5902-2) 16.5 11.9-14.5 [facility] LancasterINR in Platelet poor plasma by Coagulation rhruv4931-03-26 10:55:00 Test Item Value Reference Range Interpretation Comments Prothromb Time International Ratio 1.25 (test code = 6301-6) [facility] LancasterCHEST XRAY LINE RRZHIQHGU4672-01-03 20:57:00[facility] : 1930 Sex: M [facility] [address] [place] [address] Patient Name: JUSTICE HARDY MR #: [id number] : 1930 Age/Sex: 89/M Req #: [id number] [facility] Physician: ZACHARIAH SAINI MD Ordered by: ZACHARIAH SAINI MD Report #: [id number] Location: ICU Room/Bed: [place] [address] Procedure: [id number] DX/CHEST XRAY LINE PLACEMENT Exam Date: 09/16/20 [...] likely within gastric lumen[facility]. Infrahilar haziness, atelectasis or pneumonia/aspiration. Signed by: Eugenio Ye DO on 09/16/2020 9:02 PM Dictated By: EUGENIO YE DO 01 Transcribed By: AYDEN on 09/16/202101 COPY TO: ZACHARIAH ASINI [facility] SINGLE (PORTABLE)2020-09-15 14:55:00 [facility] : 1930 Sex: [place] [address] Patient Name: JUSTICE HARDY MR #: [id number] : 1930 Age/Sex: 89/M Req #: [id number] Adm Physician: ZACHARIAH SAINI MD Ordered by: DHARMESH LINARES MD Report #: [id number] Lo cation: MED/SURG Room/Bed: [facility] Procedure: [id number] DX/CHEST SINGLE (PORTABLE) Exam Date: 09/15/20 Exam [...] ACUTE SERIES W/TENZIN CXR 2020-09-15 10:17:[address] [facility] : 1930 Sex: [place] [address] Patient Name: JUSTICE HARDY MR #: [id number] : 1930 Age/Sex: 89/M Req #: [id number] Adm Physician: ZACHARIAH SAINI MD Ordered by: DHARMESH LINARES MD Report #: [id number] Lo cation: MED/SURG Room/Bed: [facility] Procedure: [id number] DX/ABDOMEN ACUTE SERIES W/PA CXR Exam Date: [...] TO: DHARMESH LINARES MDABDOMEN ACUTE SERIES W/TENZIN [id number] 10:50:00 [facility] : 1930 Sex: M [facility] [address] [place] [address] Patient Name: JUSTICE HARDY MR #: [id number] : 1930 Age/Sex: 89/M Req #: [id number] Adm Physician: ZACHARIAH SAINI MD Ordered by: DHARMESH LINARES MD Report #: [id number] Lo cation: MED/SURG Room/Bed: [facility] Procedure: [id number] DX/ABDOMEN ACUTE SERIES W/TENZIN CXR Exam Date: 09/14/20 Exam Time: 1020 REPORT STATUS: Signed X-ray abdomen acute series with 2 views of the abdomen and a single view of the chest INDICATION: sbo [id number] Comparison: X-ray dated 09/14/2019. Discussion: Lungs [...] Kinase (test code = 2157-6) 385 30-200 [facility] or plasma creatine kinase MB measurement (mass/volume)2020-09-13 11:24:00 Test Item Value Reference Range Interpretation Comments Creatine Kinase MB (test code = 2.90 0-5.0 08224-2) [facility] LancasterABDOMEN 2 QPEH9415-41-52 09:26:00 [facility] : 1930 Sex: [place] [address] Patient Name: JUSTICE HARDY MR #: [id number] : 1930 Age/Sex: 89/M Req #: [id number] Adm Physician: ZACHARIAH SAINI MD Ordered by: SHANNAN CERVANTES MD Report #: [id number] Location: MED/SURG Room/Bed: [facility] Procedure: [id number] DX/ABDOMEN 2 VIEW Exam Date: 09/13/20 Exam [...] code = Lactic 0.7 0.5-2.0 Acid Level) [facility] LancasterFluoroscopic procedure less than one hour jttjnqke3217-30-18 19:02:00 Test Item Value Reference Range Interpretation Comments Coronavirus (PCR) (test code = NOT DETECTED NOTDETECTED Coronavirus (PCR)) [facility] LancasterCT ABD/PEL WO HKKOLGHX-OCZQ1809-24-16 17:30:00[facility] : 1930 Sex: M [facility] [address] [place] [address] Patient Name: JUSTICE HARDY MR #: [id number] : 1930 Age/Sex: 89/M Req #: [id number] Adm Physician: Ordered by: SHANNAN CERVANTES MD Report #: [id number] Location: [facility] Room/Bed: Procedure: [id number] HOPD/CT ABD/PEL WO CONTRAST-HOPD Exam Date: 09/12/20 Exam Time: 1657 REPORT STATUS: Signed EXAM: CT Abdomen and Pelvis WITHOUT contrast INDICATION: abd pain, nausea, retching [id number] 1657 COMPARISON: CT abdomen and pelvis on [...] 09/12/201744 COPY TO: SHANNAN CERVANTES MDCT ABDOMEN/PELVIS [id number] 15:20:00 [place] [address] [place] [address] Patient Name: JUSTICE HARDY MR #: [id number] : 1930 Age/Sex: 89/M Req #: [id number] Adm Physician: Or oliver by: JEANNINE SAINI MD Report #: [id number] Location: CT Room/Bed: Procedure: [id number] CT/CT ABDOMEN/PELVISWO Exam Date: 03/02/20 Exam Time: [...]
--- NOTE | 2021-10-05 11:51 | ER ---
Nurse's Notes [facility] Name: Benito Castaneda Age: 89 yrs Sex: Male : 1930 Arrival Date: 10/05/2021 Time: 09:59 Bed 12 Private MD: Diagnosis: Retention of urine, unspecified;Constipation Presentation: 10/05 10:42 Chief complaint: "He lives at [facility] and he was here last night and you guys ab2 placed a catheter and told him he needed it for 7 days but they don't take catheters over there.". Coronavirus screen: Vaccine status: Patient reports receiving the 2nd dose of the covid vaccine. Client denies travel out of the [place] in the last 14 days. At this time, the client does not indicate any symptoms associated with coronavirus-19. Ebola Screen: Patient negative for fever greater than or equal to 101.5 degrees Fahrenheit, and additional compatible Ebola Virus Disease symptoms Patient denies exposure to infectious person. Patient denies travel to an Ebola-affected area in the 21 days before illness onset. No symptoms or risks identified at this time. Initial Sepsis Screen: Does the patient meet any 2 criteria? No. Patient's initial sepsis screen is negative. Does the patient have a suspected source of infection? No. Patient's initial sepsis screen is negative. Risk Assessment: Do you want to hurt yourself or someone else? Patient reports no desire to harm self or others. Onset of symptoms is unknown. 10:42 Method Of Arrival: Ambulatory ab2 10:42 Acuity: ANT 4 ab2 Triage Assessment: 10:45 General: Appears in no apparent distress. comfortable, Behavior is calm, cooperative, ab2 appropriate for age. Pain: Denies pain. Neuro: Level of Consciousness is awake, alert, obeys commands, Oriented to person, place, time, situation, Appropriate for age Wallpaper Installer are equal bilaterally. Cardiovascular: No deficits noted. Respiratory: Airway is patent Respiratory effort is even, unlabored, Respiratory pattern is regular, symmetrical. GI: No deficits noted. : Quiroz in place to gravity drainage. 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 - Social history:: Smoking status: Patient denies any tobacco usage or history of. Screenin:00 Abuse screen: Denies threats or abuse. Denies injuries from another. Nutritional ss screening: No deficits noted. Tuberculosis screening: Never had TB. Assessment: 11:00 General: Appears in no apparent distress. comfortable, Behavior is calm, cooperative. ss Pain: Denies pain. Neuro: Level of Consciousness is awake, alert, obeys commands, Oriented to person, place, time, situation. Cardiovascular: Capillary refill < 3 seconds is brisk in bilateral fingers. Respiratory: Airway is patent Respiratory effort is even, unlabored, Respiratory pattern is. Derm: Skin is intact, is healthy with good turgor, Skin is pink, warm \\T\\ dry. normal. 12:03 Reassessment: [facility] states that the patient cannot stay at their facility ss because they cannot maintain a quiroz despite the patient being able to care for the quiroz himself. Pt is upset with facility. Vital Signs: 10:42 BP 117 / 81; Pulse 79; Resp 17; Temp 98.3; Pulse Ox 99% on R/A; Weight 58.97 kg; Height ab2 5 ft. 4 in. (162.56 cm); Pain 0/10; 10:42 Body Mass Index 22.31 (58.97 kg, 162.56 cm) ab2 ED Course: 09:59 Patient arrived in ED. mr 10:44 Triage completed. ab2 10:45 Arm band placed on left wrist. ab2 10:57 Anoop Erickson MD is Attending Physician. iram 11:00 Patient has correct armband on for positive identification. Bed in low position. Call ss light in reach. 11:50 Jani Mcnair MD is Referral Physician. iram 11:55 Toshia Serrato RN is Primary Nurse. ss 12:08 Quiroz cath removed intact, balloon deflated, Pt tolerated well. jw7 12:39 No provider procedures requiring assistance completed. IV discontinued, intact, ss bleeding controlled, No redness/swelling at site. Pressure dressing applied. Administered Medications: 11:56 Drug: Lactulose 30 grams Volume: 45 ml; Route: PO; ss 12:09 Follow up: Response: Medication administered at discharge. 11:57 Not Given (Physician Discretion): Flomax (tamsulosin) 0.4 mg PO once 12:08 Drug: Dutasteride 0.5 mg Route: PO; 12:15 Follow up: Response: No adverse reaction; Medication administered at discharge. Outcome: 11:51 [facility] Discharged to home with home healthcare worker 12:39 Condition: good 12:39 Discharge instructions given to patient, Instructed on discharge instructions, follow up and referral plans. Demonstrated understanding of instructions, follow-up care, medications, Prescriptions given X 3. 12:40 Patient left the ED. Signatures: Anoop Erickson MD MD cha Rivera, Mary mr Smirch, Shelby, BERYL RN Roc Martinez Jodi jw7
--- NOTE | 2021-10-05 11:51 | EDPHYS ---
Physician Documentation [facility] Name: Benito Castaneda Age: 89 yrs Sex: Male : 1930 Arrival Date: 10/05/2021 Time: 09:59 Bed 12 Private MD: ED Physician Anoop Erickson HPI: 10/05 11:47 This 89 yrs old Male presents to ER via Ambulatory with complaints of Problem iram With Urinary Catheter. 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 - Social history:: Smoking status: Patient denies any tobacco usage or history of. ROS: 11:48 Constitutional: Negative for fever, chills, and weight loss, Eyes: Negative for injury, iram pain, redness, and discharge, ENT: Negative for injury, pain, and discharge, Neck: Negative for injury, pain, and swelling, Cardiovascular: Negative for chest pain, palpitations, and edema, Respiratory: Negative for shortness of breath, cough, wheezing, and pleuritic chest pain, Abdomen/GI: Negative for abdominal pain, nausea, vomiting, diarrhea, and constipation, Back: Negative for injury and pain, MS/Extremity: Negative for injury and deformity, Skin: Negative for injury, rash, and discoloration, Neuro: Negative for headache, weakness, numbness, tingling, and seizure, Psych: Negative for depression, anxiety, suicide ideation, homicidal ideation, and hallucinations, Allergy/Immunology: Negative for hives, rash, and allergies, Endocrine: Negative for neck swelling, polydipsia, polyuria, polyphagia, and marked weight changes, Hematologic/Lymphatic: Negative for swollen nodes, abnormal bleeding, and unusual bruising. 11:48 : Positive for urinary symptoms, difficulty urinating, quiroz in place. Exam: 11:48 Constitutional: This is a well developed, well nourished patient who is awake, alert, iram and in no acute distress. Head/Face: Normocephalic, atraumatic. Eyes: Pupils equal round and reactive to light, extra-ocular motions intact. Lids and lashes normal. Conjunctiva and sclera are non-icteric and not injected. Cornea within normal limits. Periorbital areas with no swelling, redness, or edema. ENT: Nares patent. No nasal discharge, no septal abnormalities noted. Tympanic membranes are normal and external auditory canals are clear. Oropharynx with no redness, swelling, or masses, exudates, or evidence of obstruction, uvula midline. Mucous membranes moist. Neck: Trachea midline, no thyromegaly or masses palpated, and no cervical lymphadenopathy. Supple, full range of motion without nuchal rigidity, or vertebral point tenderness. No Meningismus. Chest/axilla: Normal chest wall appearance and motion. Nontender with no deformity. No lesions are appreciated. Cardiovascular: Regular rate and rhythm with a normal S1 and S2. No gallops, murmurs, or rubs. Normal PMI, no JVD. No pulse deficits. Respiratory: Lungs have equal breath sounds bilaterally, clear to auscultation and percussion. No rales, rhonchi or wheezes noted. No increased work of breathing, no retractions or nasal flaring. Abdomen/GI: Soft, non-tender, with normal bowel sounds. No distension or tympany. No guarding or rebound. No evidence of tenderness throughout. Back: No spinal tenderness. No costovertebral tenderness. Full range of motion. Male : Normal genitalia with no discharge or lesions. Skin: Warm, dry with normal turgor. Normal color with no rashes, no lesions, and no evidence of cellulitis. MS/ Extremity: Pulses equal, no cyanosis. Neurovascular intact. Full, normal range of motion. Neuro: Awake and alert, GCS 15, oriented to person, place, time, and situation. Cranial nerves II-XII grossly intact. Motor strength 5/5 in all extremities. Sensory grossly intact. Cerebellar exam normal. Normal gait. Psych: Awake, alert, with orientation to person, place and time. Behavior, mood, and affect are within normal limits. Vital Signs: 10:42 BP 117 / 81; Pulse 79; Resp 17; Temp 98.3; Pulse Ox 99% on R/A; Weight 58.97 kg; Height ab2 5 ft. 4 in. (162.56 cm); Pain 0/10; 10:42 Body Mass Index 22.31 (58.97 kg, 162.56 cm) ab2 MDM: 10:57 Patient medically screened. iram 11:49 Differential diagnosis: urinary retention, Quiroz catheter problem. Data reviewed: vital iram signs, nurses notes. Data interpreted: marine extension agent: rate is 79 beats/min, rhythm is regular, Pulse oximetry: on room air is 99 %. Counseling: I had a detailed discussion with the patient and/or guardian regarding: the historical points, exam findings, and any diagnostic results supporting the discharge/admit diagnosis, lab results, the need for outpatient follow up, for definitive care, a family practitioner, a urologist. 10/05 11:47 Order name: [facility]. Order: remove quiroz; Complete Time: 12:03 iram Administered Medications: 11:56 Drug: Lactulose 30 grams Volume: 45 ml; Route: PO; ss 12:09 Follow up: Response: Medication administered at discharge. ss 11:57 Not Given (Physician Discretion): Flomax (tamsulosin) 0.4 mg PO once ss 12:08 Drug: Dutasteride 0.5 mg Route: PO; ss 12:15 Follow up: Response: No adverse reaction; Medication administered at discharge. ss Disposition Summary: 10/05/21 11:51 Discharge Ordered Location: Home iram Problem: new iram Symptoms: have improved iram Condition: Stable iram Diagnosis - Retention of urine, unspecified iram - Constipation iram Followup: iram - With: Private Physician - When: 2 - 3 days - Reason: Recheck today's complaints, Continuance of care, Re-evaluation by your physician Followup: iram - With: Jani Mcnair MD - When: 2 - 3 days - Reason: Recheck today's complaints, Re-evaluation by your physician Discharge Instructions: - Discharge Summary Sheet iram - Constipation, Adult iram - Acute Urinary Retention, Male iram - Constipation, Adult, [id number] iram - Acute Urinary Retention, Male, [id number] iram Forms: - Medication Reconciliation Form iram - Thank You Letter iram - Antibiotic Education iram - Prescription Opioid Use iram Prescriptions: - Avodart 0.5 mg Oral capsule - take 1 capsule by ORAL route once daily; 30 capsule; Refills: 0, Product [facility] Selection Permitted - Flomax 0.4 mg Oral capsule - take 1 capsule by ORAL route once daily 1/2 hour following the same meal each [facility] day; 30 capsule; Refills: 0, Product Selection Permitted - Miralax 17 gram Oral powder in packet - take 1 packet by ORAL route once daily; 14 packet; Refills: 0, Product [facility] Selection Permitted Signatures: Anoop Erickson MD MD cha Smirch, Shelby, RN RN Roc Aguiar
[2021-10-05] MEDS ORDERED: TAMSULOSIN 0.4 MG SR CAP ONE (11:54)
[2021-10-05] MEDS ORDERED: LACTULOSE 20 GM/30 ML UCUP ONE (11:54)
[2021-10-05] MEDS ORDERED: DUTASTERIDE 0.5 MG GEL CAP PO ONE (12:00)
[2021-10-05 16:01] VITALS: BP 117/81; TEMP 98.3; O2SAT 99
== END 2021-10-05 12:40 | disposition home or self-care (01) ==
LOC: ER 09:55
DX: R33.9 Retention of urine, unspecified (principal); K59.00 Constipation, unspecified; I10 Essential (primary) hypertension; Z85.46 Personal history of malignant neoplasm of prostate; Z95.1 Presence of aortocoronary bypass graft; Z95.4 Presence of other heart-valve replacement; Z95.818 Presence of other cardiac implants and grafts; Z88.8 Allergy status to other drugs, medicaments and biological substances; Z91.048 Other nonmedicinal substance allergy status
CPT/HCPCS: 99283

== ENCOUNTER 2021-10-17 01:09 | Emergency (ER) | payer OTHER, BC ==
--- OUTSIDE RECORDS SUMMARY | 2021-10-17 01:16 | XMS REPORT | Continuity of Care Document ---
:1930 Author Organization [facility] t Address [address] [place] [address] Care Team Providers Name Role Phone Bebeto GARCIA, [facility] Primary Care Physician Justice Guzman Attending Clinician Unavailable Hugo GARCIA, Trav Fernandez. Attending Clinician [phone] Anupam GARCIA, O. Attending Clinician Renee GARCIA [...] Date Sour ce Number BCBS FED SELECT [id number] 2015 00:00:00 MEDICARE PART A [id number] 1996 \T\ B 00:00:00 [employer] [id number] 2015 [facility] 00:00:00 [facility] Medicare A & B [id number] 1996 [facility] 00:00:00 - Patients Medical Center Problems Condition [...] disease 00:00: Hospita involving involving 00 [facility] [place] [place] coronary coronary artery artery SOB SOB Disease [...] Added automatic ally from request for surgery [id number] Small Problem Active [facility] - obstructio [facility] Nausea Problem Active [facility] Hypomagnes Problem Active [facility]. emia [facility] Leukocytos Problem Active [facility] S t. is [facility] Hypertensi Problem Active [facility] t. on [facility] History of Problem Active [facility] t[facility] arterioscl [facility] - erotic Patient cardiovasc s [facility] Abdominal Problem Active [facility] St . pain [facility] No known No known Disease Unive rs active active ity of problems problems [facility] Allergies, Adverse Reactions, Alerts Allergy Allergy Status Severity Reaction(s) Onset Inactive Treating Comm ents Source Name Type Date Date Clinician atorvast DA Active U UNKNOWN [facility] atin 09-05 Clear 00:00: Garcia 00 [facility] iodine DA Active U [facility] 09-05 Clear 00:00: Garcia 00 [facility] diphenhy DA Active U [facility]KNOWN [facility] dramine 09-05 Clear 00:00: Garcia 00 [facility] Diphenhy Propensi Active Itching Pt [...] Atorvast Propensi Active Other (See Unknown [facility] atks ty to Comments) 11-30 reaction, st adverse 00:00: patient Hospita reaction 00 daughter l s to confirmed drug allergy with patients cardiolog ist. Iodine Allergy Active [facility]anc 00:00: Patient e 00 [facility] Doxazosi Allergy Active 2018-[address] [facility] [facility] substanc 00:00: Patient e 00 [facility] CARDURA DA Active U FAINTING; 2001- [facility] LOW B/P 6-12 Clear 00:00: Garcia 00 [facility] No Known DA Active U 2001- [facility] Contrast 6 Clear Allergie 00:00: Garcia s [facility] No Known DA Active U 2001-0 [facility] Food - Clear Allergie 00:00: Garcia s 00 [facility] No Known DA Active U 2001-0 [facility] Other 6- Clear Allergie 00:00: Garcia s 00 [facility] NO KNOWN Drug Active Univers ALLERGIE Class ity of S [facility] doxazosi DA Active [facility] - Patient [facility] iodine DA Active [facility] Family History Family Member Diagnosis Comments Start Date Stop Date Source Natural brother [facility] Natural father Heart disease [facility] Natural father Hypertension Method [facility] Natural mother Alzheimer's disease [facility] Natural sister Other [facility] Social History Social Habit Start Date Stop Date Quantity Comments Source Exposure to Not sure [facility] SARS-CoV-2 (event) [facility] History of tobacco Smoker Method ist use Hospital History SDOH [facility] Alcohol Frequency Hospita l History SDOH [facility] Alcohol Std Drinks Hospit al History SDOH [facility] Alcohol intake 2021-01-10 2021-01-10 Current University of 00:00:00 00:00:00 non-drinker of [facility] alcohol (finding) Branch Tobacco use and 2021-01-10 2021-01-10 Never used Universit y of exposure 00:00:00 00:00:00 [facility] Alcohol Comment 2017-12-10 2017-12-10 ocassional [facility] 00:00:00 00:00:00 Hospital Cigarettes smoked 2017-08-07 2017-08-[address] current (pack per 00:00:00 00:00:00 Hospita l day) - Reported Cigarette 2017-08-07 2017-08-07 [facility] pack-years 00:00:00 00:00:00 Hospital Sex Assigned At [birth year] Universit y of 00:00:00 00:00:00 [facility] Smoking Status Start Date Stop Date Source Never smoker [facility] Ex-smoker 2017-08-07 00:00:00 2017-08-07 00:00:00 [facility] Medications Ordered Filled Start Stop Current Ordering Indication Dosage Frequency Signature Comments Components Source Medication Medication Date Date Medication? Clinician (SIG) Name Name ergocalcife 2021- No 76020U Q7D Take 1 M ethodi rol 07-16 [...] hours as needed for anxiety. ascorbic 2021- No 500mg QD Take 1 Metho di acid, 07-[address] vitamin C, 00:00: 05:59 (500 mg Hos peter (VITAMIN C) 00 :00 total) by l 500 MG mouth tablet daily for 30 days. vitamin E 2021- No 400U QD Take 1 Metho di 400 UNIT 07-[address] capsule 00:00: 05:59 (400 Units Hos peter 00 :00 total) by l mouth daily for 30 days. zinc 2021- No 1{capsu QD Take 1 Methodi sulfate 07-14 [...] 12:51: daily. Hospit a 23 l tamsulosin 2021-0 Yes .4mg Q.5D Take 0.4 Met hodi [...] Hospita enteric 23 l coated tablet albuterol 2021-0 2021- No 2{puff} Q.25D Inhale 2 Methodi (PROAIR 1-14 02-[address] HFA) 90 00:00: 05:59 every 4 Hospit a mcg/actuati 00 :00 (four) l on inhaler hours while awake for 30 days. famotidine 0 2021- No 20mg Q.5D Take 1 Meth marcella (PEPCID) 20 1-14 02-14 tablet (20 s t MG tablet 00:00: 05:59 mg total) Ho spita 00 :00 by mouth 2 l (two) times a day for 30 days. fluticasone No QD Inhale 1 M ethodi furoate-gabriel 07-13 [...] to 30 days. isosorbide 2020-06 No 20mg [id number] Take 1 Methodi dinitrate 0-25 11-25 [id number] tablet (20 st (ISORDIL) 00:00: 05:59 3D [...] up to 3 days. ergocalcife 2020- No [id number] Q7D Take 1 M ethodi rol 02-27 [...] 1 Flash as mg 00 :00 dose, [facility] 01/16/21 at Branch 0045, STAT amLODIPine Yes 10mg Take 10 mg U nivers 10 mg 7-02 by mouth ity of tablet 18:08: daily. [address] Branch aspirin 325 0 Yes 325mg Take 325 U nivers mg tablet 7-02 mg by ity of 18:08: mouth [place] 23 daily. Medical Branch valsartan-h Yes 1{tbl} Take 1 Un alma ydrochlorot 7-02 tablet by ity of hiazide 18:08: mouth [place] 160-12.5 mg 23 daily. Medica l per tablet Branch eszopiclone Yes 3mg Take 3 mg U nivers 3 mg tablet 7-02 by mouth ity of 18:08: at [place] [address] bedtime. Medical Branch cloNIDine Yes .1mg Take 0.1 Univ ers 0.1 mg 7-02 mg by ity of tablet 18:08: mouth 3 [place] 23 (three) Medical times Branch daily. apixaban Yes 2.5mg Take 2.5 Univ ers (ELIQUIS) 7-02 mg by ity of 2.5 mg 18:08: mouth 2 [place] [facility] 23 (two) Medical times Branch daily. omeprazole Yes 40mg Take 40 mg U nivers 40 mg 7-02 by mouth ity of capsule 18:08: daily. [address] Branch lisinopriL Yes 5mg Take 5 mg Un alma 5 mg tablet 7-02 by mouth ity of 18:08: daily. [address] Branch finasteride Yes 5mg Take 5 mg U nivers 5 mg tablet 7-02 by mouth ity of 18:08: daily. [address] Branch amLODIPine Yes 10mg Take 10 mg U nivers 10 mg 7-02 by mouth ity of tablet 18:08: daily. [address] Branch aspirin 325 0 Yes 325mg Take 325 U nivers mg tablet 7-02 mg by ity of 18:08: mouth [place] 23 daily. Medical Branch valsartan-h Yes 1{tbl} Take 1 Un alma ydrochlorot 7-02 tablet by ity of hiazide 18:08: mouth [place] 160-12.5 mg 23 daily. Medica l per tablet Branch eszopiclone Yes 3mg Take 3 mg U nivers 3 mg tablet 7-02 by mouth ity of 18:08: at [place] [address] bedtime. Medical Branch cloNIDine Yes .1mg Take 0.1 Univ ers 0.1 mg 7-02 mg by ity of tablet 18:08: mouth 3 [place] 23 (three) Medical times Branch daily. apixaban Yes 2.5mg Take 2.5 Univ ers (ELIQUIS) 7-02 mg by ity of 2.5 mg 18:08: mouth 2 [facility] 23 (two) Medical times Branch daily. omeprazole Yes 40mg Take 40 mg U nivers 40 mg 7-02 by mouth ity of capsule 18:08: daily. [address] Branch lisinopriL Yes 5mg Take 5 mg Un alma 5 mg tablet 7-02 by mouth ity of 18:08: daily. [place] [address] Medical Branch finasteride Yes 5mg Take 5 mg U nivers 5 mg tablet 7-02 by mouth ity of 18:08: daily. [place] [address] Medical Branch amLODIPine Yes 10mg Take 10 mg U nivers 10 mg 7-02 by mouth ity of tablet 18:08: daily. [place] [address] Medical Branch aspirin 325 Yes 325mg Take 325 U nivers mg tablet 7-02 mg by ity of 18:08: mouth [place] 23 daily. Medical Branch valsartan-h Yes 1{tbl} Take 1 Un alma ydrochlorot 7-02 tablet by ity of hiazide 18:08: mouth [place] 160-12.5 mg 23 daily. Medica l per tablet Branch eszopiclone Yes 3mg Take 3 mg U nivers 3 mg tablet 7-02 by mouth ity of 18:08: at [place] [address] bedtime. Medical Branch cloNIDine Yes .1mg Take 0.1 Univ ers 0.1 mg 7-02 mg by ity of tablet 18:08: mouth 3 [place] 23 (three) Medical times Branch daily. apixaban Yes 2.5mg Take 2.5 Univ ers (ELIQUIS) 7-02 mg by ity of 2.5 mg 18:08: mouth 2 [place] tablet 23 (two) Medical times Branch daily. omeprazole Yes 40mg Take 40 mg U nivers 40 mg 7-02 by mouth ity of capsule 18:08: daily. [place] [address] Medical Branch lisinopriL 0 Yes 5mg Take 5 mg Un alma 5 mg tablet 7-02 by mouth ity of 18:08: daily. [place] [address] Medical Branch finasteride Yes 5mg Take 5 mg U nivers 5 mg tablet 7-02 by mouth ity of 18:08: daily. [place] [address] Medical Branch amLODIPine Yes 10mg Take 10 mg U nivers 10 mg 7-02 by mouth ity of tablet 18:08: daily. [place] [address] Medical Branch aspirin 325 Yes 325mg Take 325 U nivers mg tablet 7-02 mg by ity of 18:08: mouth [place] 23 daily. Medical Branch valsartan-h Yes 1{tbl} Take 1 Un alma ydrochlorot 7-02 tablet by ity of hiazide 18:08: mouth [place] 160-12.5 mg 23 daily. Medica l per tablet Branch eszopiclone Yes 3mg Take 3 mg U nivers 3 mg tablet 7-02 by mouth ity of 18:08: at [place] [address] bedtime. Medical Branch cloNIDine Yes .1mg Take 0.1 Univ ers 0.1 mg 7-02 mg by ity of tablet 18:08: mouth 3 [place] 23 (three) Medical times Branch daily. apixaban Yes 2.5mg Take 2.5 Univ ers (ELIQUIS) 7-02 mg by ity of 2.5 mg 18:08: mouth 2 [place] tablet 23 (two) Medical times Branch daily. omeprazole Yes 40mg Take 40 mg U nivers 40 mg 7-02 by mouth ity of capsule 18:08: daily. [place] [address] Medical Branch lisinopriL 0 Yes 5mg Take 5 mg Un alma 5 mg tablet 7-02 by mouth ity of 18:08: daily. [place] 23 Medical Branch finasteride Yes 5mg Take 5 mg U nivers 5 mg tablet 7-02 by mouth ity of 18:08: daily. [place] [address] Medical Branch amLODIPine Yes 10mg Take 10 mg U nivers 10 mg 7-02 by mouth ity of tablet 18:08: daily. [place] [address] Medical Branch aspirin 325 Yes 325mg Take [...] 7-02 by mouth ity of 18:08: at [place] [address] bedtime. Medical Branch cloNIDine Yes .1mg Take 0.1 Univ ers 0.1 mg 7-02 mg by ity of tablet 18:08: mouth 3 [place] 23 (three) Medical times Branch daily. apixaban Yes 2.5mg Take 2.5 Univ ers (ELIQUIS) 7-02 mg by ity of 2.5 mg 18:08: mouth 2 [place] [facility] 23 (two) Medical times Branch daily. omeprazole Yes 40mg Take 40 mg U nivers 40 mg 7-02 by mouth ity of capsule 18:08: daily. [place] [address] Medical Branch lisinopriL Yes 5mg Take 5 mg Un alma 5 mg tablet 7-02 by mouth ity of 18:08: daily. [place] [address] Medical Branch finasteride Yes 5mg Take 5 mg U nivers 5 mg tablet 7-02 by mouth ity of 18:08: daily. [place] [address] Medical Branch amLODIPine Yes 10mg Take 10 mg U nivers 10 mg 7-02 by mouth ity of tablet 18:08: daily. [place] [address] Medical Branch aspirin 325 Yes 325mg Take 325 U nivers mg tablet 7-02 mg by ity of 18:08: mouth [place] 23 daily. Medical Branch valsartan-h Yes 1{tbl} Take 1 Un alma ydrochlorot 7-02 tablet by ity of hiazide 18:08: mouth [place] 160-12.5 mg 23 daily. Medica l per tablet Branch eszopiclone Yes 3mg Take 3 mg U nivers 3 mg tablet 7-02 by mouth ity of 18:08: at [place] [address] bedtime. Medical Branch cloNIDine Yes .1mg Take 0.1 Univ ers 0.1 mg 7-02 mg by ity of tablet 18:08: mouth 3 [place] 23 (three) Medical times Branch daily. apixaban Yes 2.5mg Take 2.5 Univ ers (ELIQUIS) 7-02 mg by ity of 2.5 mg 18:08: mouth 2 [facility] 23 (two) Medical times Branch daily. omeprazole Yes 40mg Take 40 mg U nivers 40 mg 7-02 by mouth ity of capsule 18:08: daily. [address] Branch lisinopriL Yes 5mg Take 5 mg Un alma 5 mg tablet 7-02 by mouth ity of 18:08: daily. [place] [address] Medical Branch finasteride Yes 5mg Take 5 mg U nivers 5 mg tablet 7-02 by mouth ity of 18:08: daily. [place] [address] Medical Branch amLODIPine Yes 10mg Take 10 mg U nivers 10 mg 7-02 by mouth ity of tablet 18:08: daily. [place] [address] Medical Branch aspirin 325 Yes 325mg Take 325 U nivers mg tablet 7-02 mg by ity of 18:08: mouth [place] 23 daily. Medical Branch valsartan-h Yes 1{tbl} Take 1 Un alma ydrochlorot 7-02 tablet by ity of hiazide 18:08: mouth [place] 160-12.5 mg 23 daily. Medica l per tablet Branch eszopiclone Yes 3mg Take 3 mg U nivers 3 mg tablet 7-02 by mouth ity of 18:08: at [place] [address] bedtime. Medical Branch cloNIDine Yes .1mg Take 0.1 Univ ers 0.1 mg 7-02 mg by ity of tablet 18:08: mouth 3 [place] 23 (three) Medical times Branch daily. apixaban Yes 2.5mg Take 2.5 Univ ers (ELIQUIS) 7-02 mg by ity of 2.5 mg 18:08: mouth 2 [place] tablet 23 (two) Medical times Branch daily. omeprazole Yes 40mg Take 40 mg U nivers 40 mg 7-02 by mouth ity of capsule 18:08: daily. [place] [address] Medical Branch lisinopriL 0 Yes 5mg Take 5 mg Un alma 5 mg tablet 7-02 by mouth ity of 18:08: daily. [place] [address] Medical Branch finasteride Yes 5mg Take 5 mg U nivers 5 mg tablet 7-02 by mouth ity of 18:08: daily. [place] [address] Medical Branch amLODIPine Yes 10mg Take 10 mg U nivers 10 mg 7-02 by mouth ity of tablet 18:08: daily. [place] [address] Medical Branch aspirin 325 Yes 325mg Take 325 U nivers mg tablet 7-02 mg by ity of 18:08: mouth [place] 23 daily. Medical Branch valsartan-h Yes 1{tbl} Take 1 Un alma ydrochlorot 7-02 tablet by ity of hiazide 18:08: mouth [place] 160-12.5 mg 23 daily. Medica l per tablet Branch eszopiclone Yes 3mg Take 3 mg U nivers 3 mg tablet 7-02 by mouth ity of 18:08: at [place] [address] bedtime. Medical Branch cloNIDine Yes .1mg Take 0.1 Univ ers 0.1 mg 7-02 mg by ity of tablet 18:08: mouth 3 [place] 23 (three) Medical times Branch daily. apixaban Yes 2.5mg Take 2.5 Univ ers (ELIQUIS) 7-02 mg by ity of 2.5 mg 18:08: mouth 2 [place] tablet 23 (two) Medical times Branch daily. omeprazole Yes 40mg Take 40 mg U nivers 40 mg 7-02 by mouth ity of capsule 18:08: daily. [place] [address] Medical Branch lisinopriL 0 Yes 5mg Take 5 mg Un alma 5 mg tablet 7-02 by mouth ity of 18:08: daily. [address] Branch finasteride Yes 5mg Take 5 mg U nivers 5 mg tablet 12-29 by mouth ity of 18:08: daily. [address] Branch Dutasteride Yes Take by Un alma -Tamsulosin 12-29 mouth. ity of 0.5-0.4 mg 18:08: [address] Branch Dutasteride Yes Take by Un alma -Tamsulosin 12-29 mouth. ity of 0.5-0.4 mg 18:08: [address] Branch Dutasteride Yes Take by Un alma -Tamsulosin 12-29 mouth. ity of 0.5-0.4 mg 18:08: [address] Branch Dutasteride Yes Take by Un alma -Tamsulosin 12-29 mouth. ity of 0.5-0.4 mg 18:08: [address] Branch Dutasteride Yes Take by Un alma -Tamsulosin 12-29 mouth. ity of 0.5-0.4 mg 18:08: [address] Branch Dutasteride Yes Take by Un alma -Tamsulosin 12-29 mouth. ity of 0.5-0.4 mg 18:08: [address] Branch Dutasteride Yes Take by Un alma -Tamsulosin 12-29 mouth. ity of 0.5-0.4 mg 18:08: [address] Branch Dutasteride Yes Take by Un alma -Tamsulosin 12-29 mouth. ity of 0.5-0.4 mg 18:08: [address] tamsulosin 2020- No .4mg QD Take [...] mouth daily [place] 4 [place] [id number] 50mg Q6H Take 50 mg M ethodi [...] by mouth ity of tablet 18:24: daily. [place] 36 Medical Branch aspirin 325 Yes 325mg [...] 7-19 by mouth ity of 18:24: at [place] [address] bedtime. Medical Branch amLODIPine Yes 10mg Take 10 mg U nivers 10 mg 7-19 by mouth ity of tablet 18:24: daily. [place] [address] Medical Branch aspirin 325 Yes 325mg Take [...] 7-19 by mouth ity of 18:24: at [place] [address] bedtime. Medical Branch Amlodipine Amlodipine Yes [address] Bes[facility] Patient s [facility] Aspirin Aspirin Yes Daily [facility] (Aspir 81) (Aspir 81) Tal es - 81 Mg 81 Mg Patient TABLET.DR SHIPLEY.DR lino [facility] [place] Hydrochloro Hydrochloro Yes 12.[address] thiazide thiazide [facility] - (Hydrochlor (Hydrochlor P atient othiazide*) othiazide*) s 25 Mg 25 Mg Medical TABLET TABLET Center Tamsulosin Tamsulosin Yes .[address] Hcl Hcl [facility] - (Flomax*) (Flomax*) Patie nt 0.4 Mg CAP 0.4 Mg CAP [facility] Immunizations Ordered Immunization Filled Immunization Date Status Commen ts Source Name Name FLUZONE HIGH-DOSE PF 2021-04-23 Completed Meth odist 00:00:00 Hospital Vital Signs Vital Name Observation Time Observation Value Comments Source Systolic blood 2021-01-16 07:00:00 187 mm[Hg] Univer sity of pressure [facility] Diastolic blood 2021-01-16 07:00:00 90 mm[Hg] Unive rsity of pressure [facility] Heart rate 2021-01-16 07:00:00 76 /min [facility] Respiratory rate 2021-01-16 07:00:00 20 /[facility] in 2021-01-16 07:00:00 97 /min [facility] Arterial blood by [facility] Pulse oximetry Branch Body temperature 2021-01-16 04:24:00 37.06 Ayana Univ [facility] [place] [facility] Body weight 2021-01-16 04:24:00 58.968 kg [facility] [place] [facility] BMI 2021-01-16 04:24:00 22.31 kg/m2 [facility] [place] [facility] Systolic blood 2021-01-11 02:55:00 175 mm[Hg] Univer sity of pressure [place] [facility] Diastolic blood 2021-01-11 02:55:00 85 mm[Hg] Unive rsity of pressure [place] [facility] Heart rate 2021-01-11 02:55:00 73 /min [facility] [place] [facility] Respiratory rate 2021-01-11 02:55:00 16 /min Univ ersity [facility] [place] [facility] Oxygen saturation in 2021-01-11 02:55:00 96 /min University of Arterial blood by [place] [employer] Pulse oximetry Branch Body temperature 2021-01-10 23:48:00 37.22 Ayana Univ [facility] [place] [facility] Body weight 2021-01-10 23:48:00 58.968 kg [facility] [place] [facility] BMI 2021-01-10 23:48:00 22.31 kg/m2 [facility] [place] [facility] Systolic blood 2020-12-29 18:08:00 132 mm[Hg] Univer sity of pressure [place] [facility] Diastolic blood 2020-12-29 18:08:00 65 mm[Hg] Unive rsity of pressure [place] [facility] Heart rate 2020-12-29 18:03:00 65 /min [facility] [place] [facility] Body temperature 2020-12-29 18:03:00 36.44 Ayana [facility] [place] [facility] Respiratory rate 2020-12-29 18:03:00 16 /min Univ ersity [facility] [place] [facility] Body height 2020-12-29 18:03:00 162.6 cm [facility] [place] [facility] Body weight 2020-12-29 18:03:00 59.013 kg [facility] [place] [facility] BMI 2020-12-29 18:03:00 22.33 kg/m2 [facility] [place] [facility] Oxygen saturation in 2020-12-29 18:03:00 98 /min University of Arterial blood by [place] [facility] Pulse oximetry Branch Systolic blood 2020-12-29 18:08:00 132 mm[Hg] Univer sity of pressure [facility] Diastolic blood 2020-12-29 18:08:00 65 mm[Hg] Unive rsity of [facility] Heart rate 2020-12-29 18:03:00 65 /min [facility] Body temperature 2020-12-29 18:03:00 36.44 Ayana [facility] 2020-12-29 18:03:00 16 /min [facility] Body height 2020-12-29 18:03:00 162.6 cm [facility] Body weight 2020-12-29 18:03:00 59.013 kg [facility] BMI 2020-12-29 18:03:00 22.33 kg/m2 [facility] Oxygen saturation in 2020-12-29 18:03:00 98 /min [facility] Arterial blood by [facility] Pulse oximetry [place] Oxygen saturation in 2021-07-13 18:02:00 94 /min [facility] Arterial blood by Pulse oximetry Heart rate 2021-07-13 17:59:00 74 /min [facility] Respiratory rate 2021-07-13 17:59:00 14 /min [facility] Systolic blood 2021-07-13 17:02:14 121 mm[Hg] [facility] pressure Diastolic blood 2021-07-13 17:02:14 63 mm[Hg] [facility] pressure Body temperature 2021-07-13 17:02:14 36.11 Ayana [facility] Body height 2021-07-08 22:41:00 162.6 cm [facility] Body weight 2021-07-08 22:41:00 58.968 kg [facility] BMI 2021-07-08 22:41:00 22.31 kg/m2 [facility] BP Diastolic 2020-09-28 12:46:00 76 mm[Hg] [facility] [place] BP Systolic 2020-09-28 12:46:00 149 mm[Hg] [facility] Oxygen saturation by 2020-09-28 12:46:00 99 /min [facility] - Pulse oximetry Patients [facility] Heart Rate 2020-09-28 12:46:00 85 /min [facility] [...] Center BP Diastolic 2020-09-28 08:42:00 60 mm[Hg] [facility] BP Systolic 2020-09-28 08:42:00 141 mm[Hg] [facility] Oxygen saturation by 2020-09-28 08:42:00 96 /min [facility] - Pulse oximetry Patients [facility] BP Diastolic 2020-09-28 08:36:00 60 mm[Hg] [facility] BP Systolic 2020-09-28 08:36:00 141 mm[Hg] [facility] Oxygen saturation by 2020-09-28 08:36:00 96 /min [facility] - Pulse oximetry Patients [facility] Heart Rate 2020-09-28 08:36:00 81 /min [facility] - Patients Medica [facility] Center Respiratory rate 2020-09-28 08:36:00 24 /min [facility] Patients Medica [facility] Center Body Temperature 2020-09-28 08:36:00 97.4 [degF] [facility] Patients Medica l Center Oxygen saturation by 2020-09-28 08:17:00 96 /min [facility] - Pulse oximetry Patients [facility] Heart Rate 2020-09-28 08:17:00 80 /min [facility] Patients Medica l Center Respiratory rate 2020-09-28 08:17:00 20 /min [facility] Oxygen saturation by 2020-09-28 07:49:00 96 /min [facility] - Pulse oximetry Patients [facility] Heart Rate 2020-09-28 07:49:00 80 /min [facility] Respiratory rate 2020-09-28 07:49:00 20 /min [facility] BP Diastolic 2020-09-28 04:00:00 41 mm[Hg] [facility] BP Systolic 2020-09-28 04:00:00 107 mm[Hg] [facility] Oxygen saturation by 2020-09-28 04:00:00 96 /min [facility] - Pulse oximetry Patients [facility] Heart Rate 2020-09-28 04:00:00 85 /min [facility] Respiratory rate 2020-09-28 04:00:00 20 /min [facility] [facility] Body Temperature 2020-09-28 04:00:00 97.7 [degF] [facility] Oxygen saturation by 2020-09-28 02:48:00 98 /min [facility] - Pulse oximetry Patients [facility] Heart Rate 2020-09-28 02:48:00 85 /min [facility] Respiratory rate 2020-09-28 02:48:00 18 /min [facility] Oxygen saturation by 2020-09-28 02:40:00 95 /min [facility] - Pulse oximetry Patients [facility] Heart Rate 2020-09-28 02:40:00 87 /min [facility] Respiratory rate 2020-09-28 02:40:00 20 /min [facility] [place] BP Diastolic 2020-09-28 00:00:00 59 mm[Hg] [facility] BP Systolic 2020-09-28 00:00:00 135 mm[Hg] [facility] Oxygen saturation by 2020-09-28 00:00:00 94 /min [facility] Pulse [facility]xim[facility] Patients [facility] Heart Rate 2020-09-28 00:00:00 92 /min [facility] Patients [facility] Heart Rate 2020-09-27 20:00:00 99 /min [facility] Respiratory rate 2020-09-27 20:00:00 18 /min [facility] Body Temperature 2020-09-27 20:00:00 98.1 [degF] [facility] Oxygen saturation by 2020-09-27 19:53:00 100 /min [facility] Pulse [facility]xim[facility] Patients [facility] Heart Rate 2020-09-27 19:53:00 96 /min [facility] Respiratory rate 2020-09-27 19:53:00 18 /min [facility] Oxygen saturation by 2020-09-27 19:45:00 97 /min [facility] Pulse [facility]xim[facility] Patients [facility] Heart Rate 2020-09-27 19:45:00 99 /min [facility] Patients [facility] Heart Rate 2020-09-27 15:21:00 103 /min [facility] Respiratory rate 2020-09-27 15:21:00 20 /min [facility] Body Temperature 2020-09-27 15:21:00 98.5 [degF] [facility] Oxygen saturation by 2020-09-27 14:45:00 99 /min [facility] Pulse [facility]ximetry Patients [facility] Heart Rate 2020-09-27 14:45:00 103 /min [facility] Respiratory rate 2020-09-27 14:45:00 20 /min [facility] Oxygen saturation by 2020-09-27 14:30:00 95 /min [facility] Pulse oximetry Patients [facility] Heart Rate 2020-09-27 14:30:00 103 /min [facility] Respiratory rate 2020-09-27 14:30:00 20 /min [facility] BP Diastolic 2020-09-27 11:13:00 56 mm[Hg] [facility] BP Systolic 2020-09-27 11:13:00 123 mm[Hg] [facility] Oxygen saturation by 2020-09-27 11:13:00 99 /min [facility] Pulse oximetry Patients [facility] Heart Rate 2020-09-27 11:13:00 88 /min [facility] Patients [facility] Heart Rate 2020-09-27 08:15:00 105 /min [facility] Patients [facility] Heart Rate 2020-09-27 07:58:00 105 /min [facility] Respiratory rate 2020-09-27 07:58:00 16 /min [facility] Body Temperature 2020-09-27 07:58:00 97.6 [degF] [facility] Oxygen saturation by 2020-09-27 07:15:00 99 /min [facility] Pulse oxim[facility] Patients [facility] Heart Rate 2020-09-27 07:15:00 105 /min [facility] Respiratory rate 2020-09-27 07:15:00 16 /min [facility] Oxygen saturation by 2020-09-27 07:00:00 95 /min [facility] Pulse [facility]ximetry Patients [facility] Heart Rate 2020-09-27 07:00:00 105 /min [facility] Respiratory rate 2020-09-27 07:00:00 16 /min [facility] Oxygen saturation by 2020-09-27 00:05:00 100 /min [facility] Pulse [facility]ximetry Patients [facility] Heart Rate 2020-09-27 00:05:00 91 /min [facility] Respiratory rate 2020-09-27 00:05:00 20 /min [facility] Oxygen saturation by 2020-09-26 23:50:00 98 /min [facility] Pulse [facility]xim[facility] Patients [facility] Heart Rate 2020-09-26 23:50:00 89 /min [facility] Respiratory rate 2020-09-26 23:50:00 20 /min [facility] BP Diastolic 2020-09-26 20:36:00 69 mm[Hg] [facility] BP Systolic 2020-09-26 20:36:00 114 mm[Hg] [facility] Oxygen saturation by 2020-09-26 20:36:00 98 /min [facility] Pulse [facility]ximetry Patients [facility] Heart Rate 2020-09-26 20:36:00 84 /min [facility] Respiratory rate 2020-09-26 20:36:00 18 /min [facility] Body Temperature 2020-09-26 20:36:00 98.1 [degF] [facility] BP Diastolic 2020-09-26 20:00:00 80 mm[Hg] [facility] BP Systolic 2020-09-26 20:00:00 142 mm[Hg] [facility] Oxygen saturation by 2020-09-26 20:00:00 100 /min [facility] Pulse [facility]ximetry Patients [facility] Heart Rate 2020-09-26 20:00:00 89 /min [facility] Patients [facility] Heart Rate 2020-09-26 16:11:00 89 /min [facility] Respiratory rate 2020-09-26 16:11:00 21 /min [facility] Body Temperature 2020-09-26 16:11:00 98.3 [degF] [facility] Oxygen saturation by 2020-09-26 13:10:00 96 /min [facility] Pulse oximetry Patients [facility] Heart Rate 2020-09-26 13:10:00 94 /min [facility] Respiratory rate 2020-09-26 13:10:00 16 /min [facility] Oxygen saturation by 2020-09-26 12:55:00 96 /min [facility] Pulse oximetry Patients [facility] Heart Rate 2020-09-26 12:55:00 94 /min [facility] Respiratory rate 2020-09-26 12:55:00 16 /min [facility] Oxygen saturation by 2020-09-26 12:35:00 96 /min [facility] Pulse oximetry Patients [facility] Heart Rate 2020-09-26 12:35:00 94 /min [facility] Patients [facility] Heart Rate 2020-09-26 12:12:00 100 /min [facility] [...] [facility]ulse [facility] Patients [facility] Heart Rate 2020-09-26 09:22:00 99 /min [facility] Respiratory rate 2020-09-26 09:22:00 26 /min [facility] Body Temperature 2020-09-26 09:22:00 97.4 [degF] [facility] Oxygen saturation by 2020-09-26 08:50:00 98 /min [facility] Pulse oximetry Patients [facility] Heart Rate 2020-09-26 08:50:00 99 /min [facility] Respiratory rate 2020-09-26 08:50:00 26 /min [facility] Oxygen saturation by 2020-09-26 08:35:00 98 /min [facility] Pulse oximetry Patients [facility] Heart Rate 2020-09-26 08:35:00 99 /min [facility]ulse [facility] Patients [facility] Heart Rate 2020-09-26 07:58:00 99 /min [facility] [...] [facility]ulse [facility] Patients [facility] Heart Rate 2020-09-26 04:00:00 99 /min [facility] Respiratory rate 2020-09-26 04:00:00 20 /min [facility] Body Temperature 2020-09-26 04:00:00 97.0 [degF] [facility] Oxygen saturation by 2020-09-25 20:08:00 100 /min [facility] Pulse oximetry Patients [facility] Heart Rate 2020-09-25 20:08:00 97 /min [facility] Pulse [facility] Patients [facility] Heart Rate 2020-09-25 20:00:00 99 /min [facility] Respiratory rate 2020-09-25 20:00:00 18 /min [facility] Body Temperature 2020-09-25 20:00:00 97.9 [degF] [facility] Oxygen saturation by 2020-09-25 19:53:00 97 /min [facility] Pulse oximetry Patients [facility] Heart Rate 2020-09-25 19:53:00 94 /min [facility]ulse [facility] Patients [facility] Heart Rate 2020-09-25 15:48:00 99 /min [facility] Respiratory rate 2020-09-25 15:48:00 18 /min [facility] Body Temperature 2020-09-25 15:48:00 98.0 [degF] [facility] Oxygen saturation by 2020-09-25 12:40:00 97 /min [facility] - Pulse oximetry Patients [facility] Heart Rate 2020-09-25 12:40:00 109 /min [facility] Respiratory rate 2020-09-25 12:40:00 16 /min [facility] Oxygen saturation by 2020-09-25 12:39:00 97 /min [facility] - Pulse oximetry Patients [facility] Heart Rate 2020-09-25 12:39:00 98 /min [facility] Respiratory rate 2020-09-25 12:39:00 22 /min [facility] BP Diastolic 2020-09-25 11:14:00 72 mm[Hg] [facility] BP Systolic 2020-09-25 11:14:00 98 mm[Hg] [facility] Oxygen saturation by 2020-09-25 11:14:00 100 /min [facility] Pulse oximetry Patients [facility] Heart Rate 2020-09-25 11:14:00 98 /min [facility] Respiratory rate 2020-09-25 11:14:00 22 /min [facility] Body Temperature 2020-09-25 11:14:00 97.8 [degF] [facility] BP Diastolic 2020-09-25 09:18:00 62 mm[Hg] [facility] BP Systolic 2020-09-25 09:18:00 135 mm[Hg] [facility] Oxygen saturation by 2020-09-25 09:18:00 98 /min [facility] - Pulse oximetry Patients [facility] Heart Rate 2020-09-25 09:18:00 96 /min [facility] Respiratory rate 2020-09-25 09:18:00 18 /min [facility] Body Temperature 2020-09-25 09:18:00 97.9 [degF] [facility] Oxygen saturation by 2020-09-25 08:35:00 98 /min [facility] - Pulse oximetry Patients [facility] Heart Rate 2020-09-25 08:35:00 96 /min [facility] Respiratory rate 2020-09-25 08:35:00 18 /min [facility] Oxygen saturation by 2020-09-25 08:20:00 98 /min [facility] - Pulse oximetry Patients [facility] Heart Rate 2020-09-25 08:20:00 96 /min [facility] Respiratory rate 2020-09-25 08:20:00 18 /min [facility] BP Diastolic 2020-09-25 07:33:00 62 mm[Hg] [facility] BP Systolic 2020-09-25 07:33:00 135 mm[Hg] [facility] Oxygen saturation by 2020-09-25 07:33:00 98 /min [facility] - Pulse oximetry Patients [facility] Heart Rate 2020-09-25 07:33:00 96 /min [facility] Respiratory rate 2020-09-25 07:33:00 18 /min [facility] Body Temperature 2020-09-25 07:33:00 97.9 [degF] [facility] BP Diastolic 2020-09-25 04:00:00 69 mm[Hg] [facility] BP Systolic 2020-09-25 04:00:00 121 mm[Hg] [facility] Oxygen saturation by 2020-09-25 04:00:00 97 /min [facility] Pulse [facility]ximetry Patients [facility] Heart Rate 2020-09-25 04:00:00 83 /min [facility] Respiratory rate 2020-09-25 04:00:00 18 /min [facility] Body Temperature 2020-09-25 04:00:00 97.7 [degF] [facility] BP Diastolic 2020-09-24 23:59:00 94 mm[Hg] [facility] BP Systolic 2020-09-24 23:59:00 151 mm[Hg] [facility] Oxygen saturation by 2020-09-24 23:59:00 99 /min [facility] Pulse oximetry Patients [facility] Heart Rate 2020-09-24 23:59:00 97 /min [facility]ulse [facility] Patients [facility] Heart Rate 2020-09-24 20:32:00 112 /min [facility] Respiratory rate 2020-09-24 20:32:00 18 /min [facility] Body Temperature 2020-09-24 20:32:00 97.7 [degF] [facility] Oxygen saturation by 2020-09-24 20:25:00 98 /min [facility] - Pulse oximetry Patients [facility] Heart Rate 2020-09-24 20:25:00 100 /min [facility] Respiratory rate 2020-09-24 20:25:00 20 /min [facility] Oxygen saturation by 2020-09-24 20:10:00 95 /min [facility] Pulse oximetry Patients [facility] Heart Rate 2020-09-24 20:10:00 102 /min [facility] [...] [facility]ulse [facility] Patients [facility] Heart Rate 2020-09-24 20:00:00 112 /min [facility] Respiratory rate 2020-09-24 20:00:00 [...] [facility] Pulse [facility]xim[facility] Patients [facility] Heart Rate 2020-09-24 17:13:00 94 /min [facility] Respiratory rate 2020-09-24 17:13:00 16 /min [facility] Body Temperature 2020-09-24 17:13:00 97.7 [degF] [facility] Oxygen saturation by 2020-09-24 14:00:00 100 /min [facility] Pulse oximetry Patients [facility] Heart Rate 2020-09-24 14:00:00 94 /min [facility] Respiratory rate 2020-09-24 14:00:00 16 /min [facility] Oxygen saturation by 2020-09-24 13:45:00 100 /min [facility] Pulse oximetry Patients [facility] Heart Rate 2020-09-24 13:45:00 94 /min [facility] Patients [facility] Heart Rate 2020-09-24 08:41:00 94 /min [facility] [...] 142 mm[Hg] [facility] Oxygen saturation by 2020-09-24 08:30:00 95 /min [facility] Pulse oximetry Patients [facility] Heart Rate 2020-09-24 08:30:00 94 /min [facility] Respiratory rate 2020-09-24 08:30:00 18 /min [facility] Body Temperature 2020-09-24 08:30:00 98.6 [degF] [facility] Oxygen saturation by 2020-09-24 06:50:00 100 /min [facility] Pulse oximetry Patients [facility] Heart Rate 2020-09-24 06:50:00 91 /min [facility] Respiratory rate 2020-09-24 06:50:00 16 /min [facility] Oxygen saturation by 2020-09-24 06:35:00 97 /min [facility] Pulse oximetry Patients [facility] Heart Rate 2020-09-24 06:35:00 87 /min [facility] Respiratory rate 2020-09-24 06:35:00 16 /min [facility] Body Temperature 2020-09-24 04:00:00 97.7 [degF] [facility] BP Diastolic 2020-09-24 04:00:00 64 mm[Hg] [facility] BP Systolic 2020-09-24 04:00:00 137 mm[Hg] [facility] Oxygen saturation by 2020-09-24 04:00:00 96 /min [facility] Pulse oximetry Patients [facility] Heart Rate 2020-09-24 04:00:00 88 /min [facility] Respiratory rate 2020-09-24 04:00:00 18 /min [facility] Oxygen saturation by 2020-09-24 01:18:00 97 /min [facility] Pulse [facility]ximetry Patients [facility] Heart Rate 2020-09-24 01:18:00 91 /min [facility] Respiratory rate 2020-09-24 01:18:00 18 /min [facility] Oxygen saturation by 2020-09-24 01:10:00 94 /min [facility] Pulse [facility]ximetry Patients [facility] Heart Rate 2020-09-24 01:10:00 89 /min [facility] Patients [facility] Heart Rate 2020-09-24 00:00:00 92 /min [facility] Patients [facility] Heart Rate 2020-09-23 21:42:00 105 /min [facility] Patients [facility] Heart Rate 2020-09-23 20:00:00 105 /min [facility] Respiratory rate 2020-09-23 20:00:00 18 /min [facility] Body Temperature 2020-09-23 20:00:00 97.9 [degF] [facility] Oxygen saturation by 2020-09-23 19:18:00 99 /min [facility] Pulse [facility]ximetry Patients [facility] Heart Rate 2020-09-23 19:18:00 101 /min [facility] Respiratory rate 2020-09-23 19:18:00 22 /min [facility] Oxygen saturation by 2020-09-23 19:10:00 94 /min [facility] Pulse [facility]ximetry Patients [facility] Heart Rate 2020-09-23 19:10:00 98 /min [facility] [...] [facility] Patients [facility] Heart Rate 2020-09-23 16:11:00 96 /min [facility] Respiratory rate 2020-09-23 16:11:00 18 /min [facility] Body Temperature 2020-09-23 16:11:00 97.8 [degF] [facility] Oxygen saturation by 2020-09-23 14:15:00 98 /min [facility] Pulse [facility]ximetry Patients [facility] Heart Rate 2020-09-23 14:15:00 83 /min [facility] Respiratory rate 2020-09-23 14:15:00 20 /min [facility] Oxygen saturation by 2020-09-23 14:00:00 98 /min [facility] Pulse oximetry Patients [facility] Heart Rate 2020-09-23 14:00:00 83 /min [facility] Respiratory rate 2020-09-23 14:00:00 20 /min [facility] BP Diastolic 2020-09-23 08:50:00 63 mm[Hg] [facility] BP Systolic 2020-09-23 08:50:00 142 mm[Hg] [facility] Oxygen saturation by 2020-09-23 08:50:00 98 /min [facility] Pulse [facility]ximetry Patients [facility] Heart Rate 2020-09-23 08:50:00 94 /min [facility] Respiratory rate 2020-09-23 08:50:00 18 /min [facility] Body Temperature 2020-09-23 08:50:00 97.3 [degF] [facility] BP Diastolic 2020-09-23 08:39:00 63 mm[Hg] [facility] BP Systolic 2020-09-23 08:39:00 142 mm[Hg] [facility] Oxygen saturation by 2020-09-23 08:39:00 100 /min [facility] Pulse [facility]ximetry Patients [facility] Heart Rate 2020-09-23 08:39:00 94 /min [facility] Respiratory rate 2020-09-23 08:39:00 18 /min [facility] Body Temperature 2020-09-23 08:39:00 97.4 [degF] [facility] Oxygen saturation by 2020-09-23 06:45:00 100 /min [facility] Pulse [facility]xim[facility] Patients [facility] Heart Rate 2020-09-23 06:45:00 94 /min [facility] Respiratory rate 2020-09-23 06:45:00 18 /min [facility] Oxygen saturation by 2020-09-23 06:30:00 100 /min [facility] Pulse [facility]ximetry Patients [facility] Heart Rate 2020-09-23 06:30:00 94 /min [facility] Patients [facility] Heart Rate 2020-09-23 04:30:00 87 /min [facility] Respiratory rate 2020-09-23 04:30:00 18 /min [facility] Body Temperature 2020-09-23 04:30:00 97.6 [degF] [facility] Oxygen saturation by 2020-09-23 00:40:00 94 /min [facility] Pulse [facility]xim[facility] Patients [facility] Rate 2020-09-23 00:40:00 81 /min [facility] Patients [facility] Heart Rate 2020-09-23 00:23:00 81 /min [facility] Respiratory rate 2020-09-23 00:23:00 18 /min [facility] Body Temperature 2020-09-23 00:23:00 98.1 [degF] [facility] BP Diastolic 2020-09-22 20:04:00 81 mm[Hg] [facility] BP Systolic 2020-09-22 20:04:00 158 mm[Hg] [facility] Oxygen saturation by 2020-09-22 20:04:00 95 /min [facility] Pulse oximetry Patients [facility] Heart Rate 2020-09-22 20:04:00 95 /min [facility] Respiratory rate 2020-09-22 20:04:00 18 /min [facility] Body Temperature 2020-09-22 20:04:00 97.6 [degF] [facility] Oxygen saturation by 2020-09-22 20:02:00 98 /min [facility] Pulse oximetry Patients [facility] Heart Rate 2020-09-22 20:02:00 94 /min [facility] Respiratory rate 2020-09-22 20:02:00 20 /min [facility] Oxygen saturation by 2020-09-22 19:47:00 96 /min [facility] Pulse oximetry Patients [facility] Heart Rate 2020-09-22 19:47:00 95 /min [facility] Respiratory rate 2020-09-22 19:47:00 20 /min [facility] Oxygen saturation by 2020-09-22 15:48:00 100 /min [facility] Pulse [facility]ximetry Patients [facility] Heart Rate 2020-09-22 15:48:00 89 /min [facility] Patients [facility] Respiratory rate 2020-09-22 15:48:00 24 /min [facility] BP Diastolic 2020-09-22 15:40:00 57 mm[Hg] [facility] BP Systolic 2020-09-22 15:40:00 143 mm[Hg] [facility] Oxygen saturation by 2020-09-22 15:40:00 98 /min [facility] - Pulse oximetry Patients [facility] Heart Rate 2020-09-22 15:40:00 90 /min [facility] Patients [facility] Respiratory rate 2020-09-22 15:40:00 22 /min [facility] Body Temperature 2020-09-22 15:40:00 97.6 [degF] [facility] Oxygen saturation by 2020-09-22 15:33:00 96 /min [facility] - Pulse oximetry Patients [facility] Heart Rate 2020-09-22 15:33:00 88 /min [facility] [facility] Respiratory rate 2020-09-22 15:33:00 24 /min [facility] BP Diastolic 2020-09-22 11:44:00 65 mm[Hg] [facility] BP Systolic 2020-09-22 11:44:00 165 mm[Hg] [facility] Oxygen saturation by 2020-09-22 11:44:00 100 /min [facility] - Pulse oximetry Patients [facility] Heart Rate 2020-09-22 11:44:00 81 /min [facility] Respiratory rate 2020-09-22 11:44:00 23 /min [facility] Body Temperature 2020-09-22 11:44:00 97.9 [degF] [facility] Oxygen saturation by 2020-09-22 11:25:00 100 /min [facility] - Pulse oximetry Patients [facility] Heart Rate 2020-09-22 11:25:00 88 /min [facility] Oxygen saturation by 2020-09-22 11:10:00 96 /min [facility] - Pulse oximetry Patients [facility] Heart Rate 2020-09-22 11:10:00 84 /min [facility] Pulse [facility] Patients [facility] Heart Rate 2020-09-22 09:27:00 84 /min [facility] Pulse [facility] Patients [facility] Heart Rate 2020-09-22 08:00:00 84 /min [facility] Respiratory rate 2020-09-22 08:00:00 22 /min [facility] Body Temperature 2020-09-22 08:00:00 98.0 [degF] [facility] BP Diastolic 2020-09-22 03:50:00 72 mm[Hg] [facility] BP Systolic 2020-09-22 03:50:00 144 mm[Hg] [facility] Oxygen saturation by 2020-09-22 03:50:00 97 /min [facility] - Pulse oximetry Patients [facility] Heart Rate 2020-09-22 03:50:00 93 /min [facility] Respiratory rate 2020-09-22 03:50:00 24 /min [facility] Body Temperature 2020-09-22 03:50:00 97.9 [degF] [facility] Oxygen saturation by 2020-09-22 02:17:00 100 /min [facility] - Pulse oximetry Patients [facility] Heart Rate 2020-09-22 02:17:00 92 /min [facility] Respiratory rate 2020-09-22 02:17:00 20 /min [facility] Oxygen saturation by 2020-09-22 02:02:00 100 /min [facility] - Pulse oximetry Patients [facility] Heart Rate 2020-09-22 02:02:00 88 /min [facility] Respiratory rate 2020-09-22 02:02:00 20 /min [facility] BP Diastolic 2020-09-22 00:02:00 64 mm[Hg] [facility] BP Systolic 2020-09-22 00:02:00 139 mm[Hg] [facility] Oxygen saturation by 2020-09-22 00:02:00 100 /min [facility] - Pulse oximetry Patients [facility] Heart Rate 2020-09-22 00:02:00 72 /min [facility] Respiratory rate 2020-09-22 00:02:00 20 [...] [facility] - Pulse oximetry Patients [facility] Heart Rate 2020-09-21 20:07:00 84 /min [facility] Respiratory rate 2020-09-21 20:07:00 24 /min [facility] [place] Body Temperature 2020-09-21 20:07:00 98.6 [degF] [facility] Oxygen saturation by 2020-09-21 20:02:00 97 /min [facility] - Pulse oximetry Patients [facility] Heart Rate 2020-09-21 20:02:00 80 /min [facility] Respiratory rate 2020-09-21 20:02:00 18 /min [facility] BP Diastolic 2020-09-21 20:00:00 96 mm[Hg] [facility] BP Systolic 2020-09-21 20:00:00 135 mm[Hg] [facility] Oxygen saturation by 2020-09-21 20:00:00 95 /min [facility] - Pulse oximetry Patients [facility] Heart Rate 2020-09-21 20:00:00 78 /min [facility] Pulse [facility] Patients [facility] Heart Rate 2020-09-21 16:00:00 78 /min [facility] Respiratory rate 2020-09-21 16:00:00 18 /min [facility] Body Temperature 2020-09-21 16:00:00 98.4 [degF] [facility] BP Diastolic 2020-09-21 13:02:00 90 mm[Hg] [facility] BP Systolic 2020-09-21 13:02:00 201 mm[Hg] [facility] Oxygen saturation by 2020-09-21 13:02:00 96 /min [facility] - Pulse oximetry Patients [facility] Heart Rate 2020-09-21 13:02:00 70 /min [facility] Respiratory rate 2020-09-21 13:02:00 18 /min [facility] Body Temperature 2020-09-21 13:02:00 98.3 [degF] [facility] Oxygen saturation by 2020-09-21 10:15:00 96 /min [facility] - Pulse oximetry Patients [facility] Heart Rate 2020-09-21 10:15:00 72 /min [facility] Respiratory rate 2020-09-21 10:15:00 18 /min [facility] BP Diastolic 2020-09-21 09:08:00 63 mm[Hg] [facility] BP Systolic 2020-09-21 09:08:00 150 mm[Hg] [facility] Oxygen saturation by 2020-09-21 09:08:00 95 /min [facility] - Pulse oximetry Patients [facility] Heart Rate 2020-09-21 09:08:00 63 /min [facility] Pulse [facility] Patients [facility] Heart Rate 2020-09-21 08:58:00 63 /min [facility] Respiratory rate 2020-09-21 08:58:00 17 /min [facility] Body Temperature 2020-09-21 08:58:00 98.0 [degF] [facility] BP Diastolic 2020-09-21 07:38:00 63 mm[Hg] [facility] BP Systolic 2020-09-21 07:38:00 150 mm[Hg] [facility] Oxygen saturation by 2020-09-21 07:38:00 95 /min [facility] - Pulse oximetry Patients [facility] Heart Rate 2020-09-21 07:38:00 63 /min [facility] Respiratory rate 2020-09-21 07:38:00 17 /min [facility] Body Temperature 2020-09-21 07:38:00 98.0 [degF] [facility] BP Diastolic 2020-09-21 04:00:00 70 mm[Hg] [facility] BP Systolic 2020-09-21 04:00:00 149 mm[Hg] [facility] Oxygen saturation by 2020-09-21 04:00:00 94 /min [facility] Pulse oximetry Patients [facility] Heart Rate 2020-09-21 04:00:00 73 /min [facility] Pulse [facility] Patients [facility] Heart Rate 2020-09-21 00:00:00 76 /min [facility] Respiratory rate 2020-09-21 00:00:00 21 /min [facility] Body Temperature 2020-09-21 00:00:00 98.2 [degF] [facility] BP Diastolic 2020-09-20 20:00:00 69 mm[Hg] [facility] BP Systolic 2020-09-20 20:00:00 155 mm[Hg] [facility] Oxygen saturation by 2020-09-20 20:00:00 94 /min [facility] - Pulse oximetry Patients [facility] Heart Rate 2020-09-20 20:00:00 72 /min [facility] Respiratory rate 2020-09-20 20:00:00 20 /min [facility] Body Temperature 2020-09-20 20:00:00 98.1 [degF] [facility] Oxygen saturation by 2020-09-20 19:53:00 99 /min [facility] - Pulse oximetry Patients [facility] Heart Rate 2020-09-20 19:53:00 72 /min [facility] Respiratory rate 2020-09-20 19:53:00 16 /min [facility] Oxygen saturation by 2020-09-20 19:45:00 96 /min [facility] - Pulse oximetry Patients [facility] Heart Rate 2020-09-20 19:45:00 75 /min [facility] Respiratory rate 2020-09-20 19:45:00 18 /min [facility] BP Diastolic 2020-09-20 16:36:00 69 mm[Hg] [facility] BP Systolic 2020-09-20 16:36:00 155 mm[Hg] [facility] Oxygen saturation by 2020-09-20 16:36:00 97 /min [facility] - Pulse oximetry Patients [facility] Heart Rate 2020-09-20 16:36:00 73 /min [facility] Respiratory rate 2020-09-20 16:36:00 21 /min [facility] Body Temperature 2020-09-20 16:36:00 98.3 [degF] [facility] BP Diastolic 2020-09-20 15:47:00 60 mm[Hg] [facility] BP Systolic 2020-09-20 15:47:00 133 mm[Hg] [facility] Oxygen saturation by 2020-09-20 15:47:00 94 /min [facility] - Pulse oximetry Patients [facility] Heart Rate 2020-09-20 15:47:00 71 /min [facility] Respiratory rate 2020-09-20 15:47:00 19 /min [facility] Body Temperature 2020-09-20 15:47:00 98.1 [degF] [facility] BP Diastolic 2020-09-20 11:55:00 60 mm[Hg] [facility] BP Systolic 2020-09-20 11:55:00 133 mm[Hg] [facility] Oxygen saturation by 2020-09-20 11:55:00 94 /min [facility] Pulse oximetry Patients [facility] Heart Rate 2020-09-20 11:55:00 71 /min [facility] [...] 145 mm[Hg] [facility] Oxygen saturation by 2020-09-20 09:06:00 99 /min [facility] - Pulse oximetry Patients [facility] Heart Rate 2020-09-20 09:06:00 86 /min [facility] Respiratory rate 2020-09-20 09:06:00 19 /min [facility] Body Temperature 2020-09-20 09:06:00 98.4 [degF] [facility] BP Diastolic 2020-09-20 08:58:00 66 mm[Hg] [facility] BP Systolic 2020-09-20 08:58:00 145 mm[Hg] [facility] Oxygen saturation by 2020-09-20 08:58:00 99 /min [facility] Pulse oximetry Patients [facility] Heart Rate 2020-09-20 08:58:00 86 /min [facility] [...] 145 mm[Hg] [facility] Oxygen saturation by 2020-09-20 08:55:00 99 /min [facility] - Pulse oximetry Patients [facility] Heart Rate 2020-09-20 08:55:00 86 /min [facility] Respiratory rate 2020-09-20 08:55:00 19 /min [facility] Body Temperature 2020-09-20 08:55:00 98.4 [degF] [facility] BP Diastolic 2020-09-20 07:38:00 66 mm[Hg] [facility] BP Systolic 2020-09-20 07:38:00 145 mm[Hg] [facility] Oxygen saturation by 2020-09-20 07:38:00 99 /min [facility] Pulse oximetry Patients [facility] Heart Rate 2020-09-20 07:38:00 71 /min [facility] Respiratory rate 2020-09-20 07:38:00 19 /min [facility] Body Temperature 2020-09-20 07:38:00 98.4 [degF] [facility] Oxygen saturation by 2020-09-20 07:05:00 95 /min [facility] - Pulse oximetry Patients [facility] Heart Rate 2020-09-20 07:05:00 82 /min [facility] Respiratory rate 2020-09-20 07:05:00 18 /min [facility] BP Diastolic 2020-09-20 04:00:00 61 mm[Hg] [facility] BP Systolic 2020-09-20 04:00:00 145 mm[Hg] [facility] Oxygen saturation by 2020-09-20 04:00:00 96 /min [facility] Pulse oximetry Patients [facility] Heart Rate 2020-09-20 04:00:00 66 /min [facility] Pulse [facility]ximetry Patients [facility] Heart Rate 2020-09-20 00:00:00 66 /min [facility] [...] [facility] Pulse [facility]ximetry Patients [facility] Heart Rate 2020-09-19 21:46:00 80 /min [facility] Respiratory rate 2020-09-19 21:46:00 18 /min [facility] Body Temperature 2020-09-19 21:46:00 97.4 [degF] [facility] Oxygen saturation by 2020-09-19 20:09:00 95 /min [facility] Pulse oximetry Patients [facility] Heart Rate 2020-09-19 20:09:00 82 /min [facility] [...] [facility] Pulse [facility]ximetry Patients [facility] Heart Rate 2020-09-19 20:00:00 80 /min [facility] Respiratory rate 2020-09-19 20:00:00 18 /min [facility] Body Temperature 2020-09-19 20:00:00 97.4 [degF] [facility] BP Diastolic 2020-09-19 15:41:00 70 mm[Hg] [facility] BP Systolic 2020-09-19 15:41:00 157 mm[Hg] [facility] Oxygen saturation by 2020-09-19 15:41:00 95 /min [facility] Pulse oximetry Patients [facility] Heart Rate 2020-09-19 15:41:00 80 /min [facility] Respiratory rate 2020-09-19 15:41:00 20 /min [facility] Body Temperature 2020-09-19 15:41:00 97.6 [degF] [facility] BP Diastolic 2020-09-19 12:14:00 80 mm[Hg] [facility] BP Systolic 2020-09-19 12:14:00 177 mm[Hg] [facility] Oxygen saturation by 2020-09-19 12:14:00 96 /min [facility] Pulse oximetry Patients [facility] Heart Rate 2020-09-19 12:14:00 84 /min [facility] [...] [facility] Pulse [facility]ximetry Patients [facility] Heart Rate 2020-09-19 11:26:00 88 /min [facility] Respiratory rate 2020-09-19 11:26:00 16 /min [facility] Body Temperature 2020-09-19 11:26:00 98.6 [degF] [facility] Oxygen saturation by 2020-09-19 08:10:00 93 /min [facility] Pulse oximetry Patients [facility] Heart Rate 2020-09-19 08:10:00 97 /min [facility] Respiratory rate 2020-09-19 08:10:00 20 /min [facility] BP Diastolic 2020-09-19 07:37:00 91 mm[Hg] [facility] BP Systolic 2020-09-19 07:37:00 168 mm[Hg] [facility] Oxygen saturation by 2020-09-19 07:37:00 97 /min [facility] - Pulse oximetry Patients [facility] Heart Rate 2020-09-19 07:37:00 83 /min [facility] Respiratory rate 2020-09-19 07:37:00 21 /min [facility] Body Temperature 2020-09-19 07:37:00 98.1 [degF] [facility] BP Diastolic 2020-09-19 07:17:00 91 mm[Hg] [facility] BP Systolic 2020-09-19 07:17:00 168 mm[Hg] [facility] Oxygen saturation by 2020-09-19 07:17:00 97 /min [facility] Pulse oximetry Patients [facility] Heart Rate 2020-09-19 07:17:00 83 /min [facility] Respiratory rate 2020-09-19 07:17:00 21 /min [facility] Body Temperature 2020-09-19 07:17:00 98.1 [degF] [facility] BP Diastolic 2020-09-19 05:03:00 97 mm[Hg] [facility] BP Systolic 2020-09-19 05:03:00 157 mm[Hg] [facility] Oxygen saturation by 2020-09-19 05:03:00 93 /min [facility] Pulse oximetry Patients [facility] Heart Rate 2020-09-19 05:03:00 91 /min [facility] Respiratory rate 2020-09-19 05:03:00 18 /min [facility] Body Temperature 2020-09-19 05:03:00 91.0 [degF] [facility] BP Diastolic 2020-09-19 01:59:00 87 mm[Hg] [facility] BP Systolic 2020-09-19 01:59:00 200 mm[Hg] [facility] [place] Oxygen saturation by 2020-09-19 01:59:00 96 /min [facility] Pulse oximetry Patients [facility] Heart Rate 2020-09-19 01:59:00 92 /min [facility] Respiratory rate 2020-09-19 01:59:00 18 /min [facility] Body Temperature 2020-09-19 01:59:00 97.7 [degF] [facility] BP Diastolic 2020-09-18 22:57:00 86 mm[Hg] [facility] BP Systolic 2020-09-18 22:57:00 158 mm[Hg] [facility] Oxygen saturation by 2020-09-18 22:57:00 96 /min [facility] - Pulse oximetry Patients [facility] Heart Rate 2020-09-18 22:57:00 68 /min [facility] Respiratory rate 2020-09-18 22:57:00 18 /min [facility] Body Temperature 2020-09-18 22:57:00 97.7 [degF] [facility] BP Diastolic 2020-09-18 21:58:00 86 mm[Hg] [facility] BP Systolic 2020-09-18 21:58:00 158 mm[Hg] [facility] Oxygen saturation by 2020-09-18 21:58:00 96 /min [facility] Pulse oximetry Patients [facility] Heart Rate 2020-09-18 21:58:00 68 /min [facility] Respiratory rate 2020-09-18 21:58:00 18 /min [facility] Body Temperature 2020-09-18 21:58:00 97.7 [degF] [facility] Oxygen saturation by 2020-09-18 21:16:00 93 /min [facility] Pulse oximetry Patients [facility] Heart Rate 2020-09-18 21:16:00 97 /min [facility] Respiratory rate 2020-09-18 21:16:00 20 /min [facility] BP Diastolic 2020-09-18 15:41:00 70 mm[Hg] [facility] BP Systolic 2020-09-18 15:41:00 163 mm[Hg] [facility] Oxygen saturation by 2020-09-18 15:41:00 98 /min [facility] Pulse oximetry Patients [facility] Heart Rate 2020-09-18 15:41:00 84 /min [facility] Pulse [facility] Patients [facility] Heart Rate 2020-09-18 13:00:00 86 /min [facility] Pulse [facility] Patients [facility] Heart Rate 2020-09-18 12:00:00 85 /min [facility] Pulse [facility] Patients [facility] Heart Rate 2020-09-18 11:00:00 86 /min [facility] [...] [facility] Pulse [facility]ximetry Patients [facility] Heart Rate 2020-09-18 10:00:00 80 /min [facility] Respiratory rate 2020-09-18 10:00:00 19 /min [facility] BP Diastolic 2020-09-18 09:00:00 80 mm[Hg] [facility] BP Systolic 2020-09-18 09:00:00 141 mm[Hg] [facility] Oxygen saturation by 2020-09-18 09:00:00 96 /min [facility] Pulse oximetry Patients [facility] Heart Rate 2020-09-18 09:00:00 86 /min [facility] Respiratory rate 2020-09-18 09:00:00 18 /min [facility] Body Temperature 2020-09-18 09:00:00 97.7 [degF] [facility] BP Diastolic 2020-09-18 08:00:00 70 mm[Hg] [facility] BP Systolic 2020-09-18 08:00:00 146 mm[Hg] [facility] Oxygen saturation by 2020-09-18 08:00:00 96 /min [facility] Pulse oximetry Patients [facility] Heart Rate 2020-09-18 08:00:00 86 /min [facility] Pulse [facility] Patients [facility] Heart Rate 2020-09-18 07:51:00 86 /min [facility] Respiratory rate 2020-09-18 07:51:00 17 /min [facility] Body Temperature 2020-09-18 07:51:00 97.7 [degF] [facility] Oxygen saturation by 2020-09-18 07:35:00 97 /min [facility] Pulse oximetry Patients [facility] Heart Rate 2020-09-18 07:35:00 85 /min [facility] Respiratory rate 2020-09-18 07:35:00 20 /min [facility] BP Diastolic 2020-09-18 07:00:00 80 mm[Hg] [facility] BP Systolic 2020-09-18 07:00:00 141 mm[Hg] [facility] Oxygen saturation by 2020-09-18 07:00:00 97 /min [facility] Pulse oximetry Patients [facility] Heart Rate 2020-09-18 07:00:00 86 /min [facility] Respiratory rate 2020-09-18 07:00:00 17 /min [facility] Body Temperature 2020-09-18 07:00:00 97.7 [degF] [facility] BP Diastolic 2020-09-18 06:00:00 85 mm[Hg] [facility] BP Systolic 2020-09-18 06:00:00 174 mm[Hg] [facility] Oxygen saturation by 2020-09-18 06:00:00 96 /min [facility] Pulse oximetry Patients [facility] Heart Rate 2020-09-18 06:00:00 95 /min [facility] Pulse [facility] Patients [facility] Heart Rate 2020-09-18 05:00:00 86 /min [facility] Respiratory rate 2020-09-18 05:00:00 18 /min [facility] BP Diastolic 2020-09-18 04:00:00 74 mm[Hg] [facility] BP Systolic 2020-09-18 04:00:00 150 mm[Hg] [facility] Oxygen saturation by 2020-09-18 04:00:00 96 /min [facility] Pulse oximetry Patients [facility] Heart Rate 2020-09-18 04:00:00 76 /min [facility] Respiratory rate 2020-09-18 04:00:00 17 /min [facility] BP Diastolic 2020-09-18 03:00:00 88 mm[Hg] [facility] BP Systolic 2020-09-18 03:00:00 157 mm[Hg] [facility] Oxygen saturation by 2020-09-18 03:00:00 97 /min [facility] - Pulse oximetry Patients [facility] Heart Rate 2020-09-18 03:00:00 89 /min [facility] Respiratory rate 2020-09-18 03:00:00 15 /min [facility] BP Diastolic 2020-09-18 02:00:00 80 mm[Hg] [facility] BP Systolic 2020-09-18 02:00:00 145 mm[Hg] [facility] Oxygen saturation by 2020-09-18 02:00:00 96 /min [facility] Patients [facility] Heart Rate 2020-09-18 02:00:00 95 /min [facility] Heart Rate 2020-09-18 01:00:00 84 /min [facility] Respiratory rate 2020-09-18 01:00:00 19 /min [facility] BP Diastolic 2020-09-18 00:00:00 68 mm[Hg] [facility] BP Systolic 2020-09-18 00:00:00 144 mm[Hg] [facility] Oxygen saturation by 2020-09-18 00:00:00 97 /min [facility] Pulse [facility] Patients [facility] Heart Rate 2020-09-18 00:00:00 89 /min [facility] Patients [facility] Heart Rate 2020-09-17 23:00:00 90 /min [facility] Patients [facility] Heart Rate 2020-09-17 22:03:00 90 /min [facility] Patients [facility] Heart Rate 2020-09-17 21:00:00 97 /min [facility] Respiratory rate 2020-09-17 21:00:00 19 /min [facility] Oxygen saturation by 2020-09-17 20:08:00 96 /min [facility] Pulse [facility] Patients [facility] Heart Rate 2020-09-17 20:08:00 95 /min [facility] Patients [facility] Heart Rate 2020-09-17 20:00:00 105 /min [facility] Patients [facility] Heart Rate 2020-09-17 19:00:00 102 /min [facility] Respiratory rate 2020-09-17 19:00:00 23 /min [facility] Body Temperature 2020-09-17 19:00:00 97.4 [degF] [facility] BP Diastolic 2020-09-17 18:00:00 74 mm[Hg] [facility] BP Systolic 2020-09-17 18:00:00 146 mm[Hg] [facility] Oxygen saturation by 2020-09-17 18:00:00 95 /min [facility] Pulse [facility]xim[facility] Patients [facility] Heart Rate 2020-09-17 18:00:00 97 /min [facility] Respiratory rate 2020-09-17 18:00:00 18 /min [facility] BP Diastolic 2020-09-17 17:00:00 73 mm[Hg] [facility] BP Systolic 2020-09-17 17:00:00 134 mm[Hg] [facility] Oxygen saturation by 2020-09-17 17:00:00 94 /min [facility] Pulse [facility]xim[facility] Patients [facility] Heart Rate 2020-09-17 17:00:00 106 /min [facility] Patients [facility] Heart Rate 2020-09-17 16:00:00 96 /min [facility] Respiratory rate 2020-09-17 16:00:00 32 /min [facility] Body Temperature 2020-09-17 16:00:00 98.6 [degF] [facility] Oxygen saturation by 2020-09-17 15:28:00 94 /min [facility] Pulse [facility]ximetry Patients [facility] Heart Rate 2020-09-17 15:28:00 83 /min [facility] Respiratory rate 2020-09-17 15:28:00 26 /min [facility] Oxygen saturation by 2020-09-17 15:27:00 94 /min [facility] Pulse [facility] Patients [facility] Heart Rate 2020-09-17 15:27:00 83 /min [facility] Patients [facility] Heart Rate 2020-09-17 15:00:00 93 /min [facility] Respiratory rate 2020-09-17 15:00:00 24 /min [facility] Oxygen saturation by 2020-09-17 14:59:00 94 /min [facility] Pulse [facility]xim[facility] Patients [facility] Heart Rate 2020-09-17 14:59:00 84 /min [facility] Patients [facility] Heart Rate 2020-09-17 14:00:00 109 /min [facility] Respiratory rate 2020-09-17 14:00:00 29 /min [facility] BP Diastolic 2020-09-17 13:00:00 87 mm[Hg] [facility] BP Systolic 2020-09-17 13:00:00 171 mm[Hg] [facility] Oxygen saturation by 2020-09-17 13:00:00 92 /min [facility] Pulse [facility]ximetry Patients [facility] Heart Rate 2020-09-17 13:00:00 112 /min [facility] [...] [facility] Patients [facility] Heart Rate 2020-09-17 12:00:00 112 /min [facility] Respiratory rate 2020-09-17 12:00:00 26 /min [facility] BP Diastolic 2020-09-17 11:00:00 80 mm[Hg] [facility] BP Systolic 2020-09-17 11:00:00 148 mm[Hg] [facility] Oxygen saturation by 2020-09-17 11:00:00 92 /min [facility] Pulse [facility]ximetry Patients [facility] Heart Rate 2020-09-17 11:00:00 119 /min [facility] Respiratory rate 2020-09-17 11:00:00 39 /min [facility] BP Diastolic 2020-09-17 10:00:00 86 mm[Hg] [facility] BP Systolic 2020-09-17 10:00:00 181 mm[Hg] [facility] Heart Rate 2020-09-17 10:00:00 105 /min [facility] Respiratory rate 2020-09-17 10:00:00 38 /min [facility] BP Diastolic 2020-09-17 09:00:00 82 mm[Hg] [facility] BP Systolic 2020-09-17 09:00:00 175 mm[Hg] [facility] [place] Oxygen saturation by 2020-09-17 09:00:00 97 /min [facility] Pulse [facility]ximetry Patients [facility] Heart Rate 2020-09-17 09:00:00 88 /min [facility] Respiratory rate 2020-09-17 09:00:00 17 /min [facility] Body Temperature 2020-09-17 09:00:00 97.6 [degF] [facility] BP Diastolic 2020-09-17 08:00:00 77 mm[Hg] [facility] BP Systolic 2020-09-17 08:00:00 167 mm[Hg] [facility] Oxygen saturation by 2020-09-17 08:00:00 96 /min [facility] Pulse [facility]ximetry Patients [facility] Heart Rate 2020-09-17 08:00:00 85 /min [facility]ulse [facility] Patients [facility] Heart Rate 2020-09-17 07:00:00 84 /min [facility] Respiratory rate 2020-09-17 07:00:00 15 /min [facility] BP Diastolic 2020-09-17 06:00:00 87 mm[Hg] [facility] BP Systolic 2020-09-17 06:00:00 159 mm[Hg] [facility] Oxygen saturation by 2020-09-17 06:00:00 96 /min [facility] Pulse [facility]ximetry Patients [facility] Heart Rate 2020-09-17 06:00:00 83 /min [facility] Respiratory rate 2020-09-17 06:00:00 15 /min [facility] BP Diastolic 2020-09-17 05:00:00 74 mm[Hg] [facility] BP Systolic 2020-09-17 05:00:00 160 mm[Hg] [facility] Oxygen saturation by 2020-09-17 05:00:00 96 /min [facility] Pulse [facility]ximetry Patients [facility] Heart Rate 2020-09-17 05:00:00 84 /min [facility] [...] [facility]ulse [facility] Patients [facility] Heart Rate 2020-09-17 04:00:00 86 /min [facility] Respiratory rate 2020-09-17 04:00:00 22 /min [facility] BP Diastolic 2020-09-17 03:30:00 84 mm[Hg] [facility] BP Systolic 2020-09-17 03:30:00 196 mm[Hg] [facility] BP Diastolic 2020-09-17 03:00:00 82 mm[Hg] [facility] BP Systolic 2020-09-17 03:00:00 188 mm[Hg] [facility] Oxygen saturation by 2020-09-17 03:00:00 97 /min [facility] - Pulse oximetry Patients [facility] Heart Rate 2020-09-17 03:00:00 90 /min [facility] Respiratory rate 2020-09-17 03:00:00 18 /min [facility] Body Temperature 2020-09-17 03:00:00 97.6 [degF] [facility] BP Diastolic 2020-09-17 02:00:00 75 mm[Hg] [facility] BP Systolic 2020-09-17 02:00:00 154 mm[Hg] [facility] Oxygen saturation by 2020-09-17 02:00:00 95 /min [facility] - Pulse [facility]ximetry Patients [facility] Heart Rate 2020-09-17 02:00:00 88 /min [facility] Respiratory rate 2020-09-17 02:00:00 18 /min [facility] BP Diastolic 2020-09-17 01:00:00 79 mm[Hg] [facility] BP Systolic 2020-09-17 01:00:00 144 mm[Hg] [facility] Oxygen saturation by 2020-09-17 01:00:00 94 /min [facility] - Pulse oximetry Patients [facility] Heart Rate 2020-09-17 01:00:00 88 /min [facility] Respiratory rate 2020-09-17 01:00:00 15 /min [facility] BP Diastolic 2020-09-17 00:00:00 76 mm[Hg] [facility] BP Systolic 2020-09-17 00:00:00 171 mm[Hg] [facility] Oxygen saturation by 2020-09-17 00:00:00 96 /min [facility] Pulse oximetry Patients [facility] Heart Rate 2020-09-17 00:00:00 92 /min [facility] Respiratory rate 2020-09-17 00:00:00 26 /min [facility] Oxygen saturation by 2020-09-16 23:05:00 95 /min [facility] - Pulse [facility]ximetry Patients [facility] Heart Rate 2020-09-16 23:05:00 77 /min [facility] [...] [facility]ulse [facility] Patients [facility] Heart Rate 2020-09-16 23:00:00 83 /min [facility] Respiratory rate 2020-09-16 23:00:00 23 /min [facility] Body Temperature 2020-09-16 23:00:00 97.1 [degF] [facility] BP Diastolic 2020-09-16 22:12:00 76 mm[Hg] [facility] BP Systolic 2020-09-16 22:12:00 137 mm[Hg] [facility] Heart Rate 2020-09-16 22:12:00 80 /min [facility] BP Diastolic 2020-09-16 22:06:00 82 mm[Hg] [facility] BP Systolic 2020-09-16 22:06:00 176 mm[Hg] [facility] Oxygen saturation by 2020-09-16 22:06:00 96 /min [facility] Pulse [facility]ximetry Patients [facility] Heart Rate 2020-09-16 22:06:00 82 /min [facility] Respiratory rate 2020-09-16 22:06:00 18 /min [facility] BP Diastolic 2020-09-16 22:03:00 81 mm[Hg] [facility] BP Systolic 2020-09-16 22:03:00 201 mm[Hg] [facility] Oxygen saturation by 2020-09-16 22:03:00 96 /min [facility] Pulse [facility]ximetry Patients [facility] Heart Rate 2020-09-16 22:03:00 84 /min [facility] Respiratory rate 2020-09-16 22:03:00 22 /min [facility] BP Diastolic 2020-09-16 22:00:00 86 mm[Hg] [facility] BP Systolic 2020-09-16 22:00:00 206 mm[Hg] [facility] Oxygen saturation by 2020-09-16 22:00:00 96 /min [facility] Pulse oximetry Patients [facility] Heart Rate 2020-09-16 22:00:00 86 /min [facility] Respiratory rate 2020-09-16 22:00:00 19 /min [facility] BP Diastolic 2020-09-16 21:01:00 69 mm[Hg] [facility] BP Systolic 2020-09-16 21:01:00 153 mm[Hg] [facility] Oxygen saturation by 2020-09-16 21:01:00 96 /min [facility] Pulse [facility]ximetry Patients [facility] Heart Rate 2020-09-16 21:01:00 85 /min [facility] Respiratory rate 2020-09-16 21:01:00 17 /min [facility] BP Diastolic 2020-09-16 20:44:00 111 mm[Hg] [facility] BP Systolic 2020-09-16 20:44:00 141 mm[Hg] [facility] Oxygen saturation by 2020-09-16 20:44:00 96 /min [facility] Pulse [facility]ximetry Patients [facility] Heart Rate 2020-09-16 20:44:00 84 /min [facility] Respiratory rate 2020-09-16 20:44:00 21 /min [facility] Body Temperature 2020-09-16 20:44:00 98.0 [degF] [facility] BP Diastolic 2020-09-16 20:42:00 111 mm[Hg] [facility] BP Systolic 2020-09-16 20:42:00 141 mm[Hg] [facility] Heart Rate 2020-09-16 20:42:00 [...] Center BP Systolic 2020-09-16 20:00:00 185 mm[Hg] [facility] Oxygen saturation by 2020-09-16 20:00:00 96 /min [facility] Pulse [facility]xim[facility] Patients [facility] Heart Rate 2020-09-16 20:00:00 96 /min [facility] Respiratory rate 2020-09-16 20:00:00 21 /min [facility] Body Temperature 2020-09-16 20:00:00 98.0 [degF] [facility] Oxygen saturation by 2020-09-16 19:40:00 96 /min [facility] Pulse [facility]ximetry Patients [facility] Heart Rate 2020-09-16 19:40:00 105 /min [facility] Respiratory rate 2020-09-16 19:40:00 27 /min [facility] BP Diastolic 2020-09-16 16:00:00 90 mm[Hg] [facility] BP Systolic 2020-09-16 16:00:00 175 mm[Hg] [facility] Oxygen saturation by 2020-09-16 16:00:00 96 /min [facility] Pulse [facility]ximetry Patients [facility] Heart Rate 2020-09-16 16:00:00 108 /min [facility] Respiratory rate 2020-09-16 16:00:00 36 /min [facility] Body Temperature 2020-09-16 16:00:00 98.5 [degF] [facility] BP Diastolic 2020-09-16 13:00:00 73 mm[Hg] [facility] BP Systolic 2020-09-16 13:00:00 149 mm[Hg] [facility] Oxygen saturation by 2020-09-16 13:00:00 2 /min [facility] Pulse [facility]ximetry Patients [facility] Heart Rate 2020-09-16 13:00:00 90 /min [facility] Respiratory rate 2020-09-16 13:00:00 15 /min [facility] BP Diastolic 2020-09-16 12:00:00 88 mm[Hg] [facility] BP Systolic 2020-09-16 12:00:00 174 mm[Hg] [facility] Oxygen saturation by 2020-09-16 12:00:00 94 /min [facility] Pulse [facility]ximetry Patients [facility] Heart Rate 2020-09-16 12:00:00 101 /min [facility] Respiratory rate 2020-09-16 12:00:00 32 /min [facility] Body Temperature 2020-09-16 12:00:00 97.8 [degF] [facility] Oxygen saturation by 2020-09-16 11:00:00 96 /min [facility] Pulse [facility]ximetry Patients [facility] Heart Rate 2020-09-16 11:00:00 79 /min [facility] Respiratory rate 2020-09-16 11:00:00 19 /min [facility] BP Diastolic 2020-09-16 11:00:00 81 mm[Hg] [facility] BP Systolic 2020-09-16 11:00:00 186 mm[Hg] [facility] BP Diastolic 2020-09-16 10:00:00 82 mm[Hg] [facility] BP Systolic 2020-09-16 10:00:00 166 mm[Hg] [facility] Oxygen saturation by 2020-09-16 10:00:00 95 /min [facility] Pulse [facility]ximetry Patients [facility] Heart Rate 2020-09-16 10:00:00 82 /min [facility] Patients [facility] Heart Rate 2020-09-16 09:00:00 82 /min [facility] Heart Rate 2020-09-16 08:00:00 79 /min [facility] Patients [facility] Heart Rate 2020-09-16 07:00:00 73 /min [facility] Patients [facility] Heart Rate 2020-09-16 06:00:00 87 /min [facility] Respiratory rate 2020-09-16 06:00:00 19 /min [facility] BP Diastolic 2020-09-16 05:00:00 71 mm[Hg] [facility] BP Systolic 2020-09-16 05:00:00 150 mm[Hg] [facility] Oxygen saturation by 2020-09-16 05:00:00 96 /min [facility] Pulse [facility]ximetry Patients [facility] Heart Rate 2020-09-16 05:00:00 89 /min [facility] Respiratory rate 2020-09-16 05:00:00 22 /min [facility] BP Diastolic 2020-09-16 04:00:00 71 mm[Hg] [facility] BP Systolic 2020-09-16 04:00:00 139 mm[Hg] [facility] Oxygen saturation by 2020-09-16 04:00:00 96 /min [facility] Pulse [facility]xim[facility] Patients [facility] Heart Rate 2020-09-16 04:00:00 85 /min [facility] Patients [facility] Heart Rate 2020-09-16 03:00:00 82 /min [facility] Respiratory rate 2020-09-16 03:00:00 15 /min [facility] Body Temperature 2020-09-16 03:00:00 98.5 [degF] [facility] BP Diastolic 2020-09-16 02:00:00 66 mm[Hg] [facility] BP Systolic 2020-09-16 02:00:00 140 mm[Hg] [facility] Oxygen saturation by 2020-09-16 02:00:00 95 /min [facility] Pulse [facility] Patients [facility] Heart Rate 2020-09-16 02:00:00 83 /min [facility] Respiratory rate 2020-09-16 02:00:00 17 /min [facility] BP Diastolic 2020-09-16 01:00:00 70 mm[Hg] [facility] BP Systolic 2020-09-16 01:00:00 164 mm[Hg] [facility] Oxygen saturation by 2020-09-16 01:00:00 96 /min [facility] Pulse [facility] Patients [facility] Heart Rate 2020-09-16 01:00:00 84 /min [facility] Patients [facility] Heart Rate 2020-09-16 00:00:00 77 /min [facility] Respiratory rate 2020-09-16 00:00:00 20 /min [facility] Body Temperature 2020-09-16 00:00:00 98.6 [degF] [facility] BP Diastolic 2020-09-15 23:00:00 59 mm[Hg] [facility] BP Systolic 2020-09-15 23:00:00 143 mm[Hg] [facility] Oxygen saturation by 2020-09-15 23:00:00 95 /min [facility] Pulse [facility] Patients [facility] Heart Rate 2020-09-15 23:00:00 79 /min [facility] Respiratory rate 2020-09-15 23:00:00 18 /min [facility] BP Diastolic 2020-09-15 22:00:00 55 mm[Hg] [facility] BP Systolic 2020-09-15 22:00:00 133 mm[Hg] [facility] Oxygen saturation by 2020-09-15 22:00:00 94 /min [facility] Pulse [facility] Patients [facility] Heart Rate 2020-09-15 22:00:00 78 /min [facility] Patients [facility] Heart Rate 2020-09-15 21:00:00 79 /min [facility] Respiratory rate 2020-09-15 21:00:00 17 /min [facility] Oxygen saturation by 2020-09-15 20:50:00 94 /min [facility] Pulse [facility] Patients [facility] Heart Rate 2020-09-15 20:50:00 81 /min [facility] Respiratory rate 2020-09-15 20:50:00 18 /min [facility] BP Diastolic 2020-09-15 20:00:00 56 mm[Hg] [facility] BP Systolic 2020-09-15 20:00:00 165 mm[Hg] [facility] Oxygen saturation by 2020-09-15 20:00:00 97 /min [facility] Pulse [facility] Patients [facility] Heart Rate 2020-09-15 20:00:00 76 /min [facility] Respiratory rate 2020-09-15 20:00:00 22 /min [facility] Oxygen saturation by 2020-09-15 19:00:00 96 /min [facility] Pulse [facility] Respiratory rate 2020-09-15 19:00:00 14 /min [facility] Body Temperature 2020-09-15 19:00:00 98.7 [degF] [facility] BP Diastolic 2020-09-15 18:00:00 115 mm[Hg] [facility] BP Systolic 2020-09-15 18:00:00 154 mm[Hg] [facility] Oxygen saturation by 2020-09-15 18:00:00 94 /min [facility] Pulse [facility]ximetry Patients [facility] Heart Rate 2020-09-15 18:00:00 79 /min [facility] Respiratory rate 2020-09-15 18:00:00 19 /min [facility] BP Diastolic 2020-09-15 17:00:00 65 mm[Hg] [facility] BP Systolic 2020-09-15 17:00:00 154 mm[Hg] [facility] Oxygen saturation by 2020-09-15 17:00:00 95 /min [facility] Pulse [facility]xim[facility] Patients [facility] Heart Rate 2020-09-15 17:00:00 71 /min [facility] Respiratory rate 2020-09-15 17:00:00 18 /min [facility] BP Diastolic 2020-09-15 16:00:00 75 mm[Hg] [facility] BP Systolic 2020-09-15 16:00:00 159 mm[Hg] [facility] Oxygen saturation by 2020-09-15 16:00:00 94 /min [facility] P[facility]xim[facility] Patients [facility] Heart Rate 2020-09-15 16:00:00 75 /min [facility] Respiratory rate 2020-09-15 16:00:00 16 /min [facility] BP Diastolic 2020-09-15 15:14:00 71 mm[Hg] [facility] BP Systolic 2020-09-15 15:14:00 169 mm[Hg] [facility] Oxygen saturation by 2020-09-15 15:14:00 100 /min [facility] Patients [facility] Heart Rate 2020-09-15 15:14:00 75 /min [facility] Heart Rate 2020-09-15 15:10:00 74 /min [facility] Respiratory rate 2020-09-15 15:10:00 18 /min [facility] BP Diastolic 2020-09-15 14:50:00 84 mm[Hg] [facility] BP Systolic 2020-09-15 14:50:00 176 mm[Hg] [facility] Oxygen saturation by 2020-09-15 14:50:00 100 /min [facility] Heart Rate 2020-09-15 14:50:00 81 /min [facility] Respiratory rate 2020-09-15 14:50:00 18 /min [facility] BP Diastolic 2020-09-15 14:40:00 94 mm[Hg] [facility] BP Systolic 2020-09-15 14:40:00 200 mm[Hg] [facility] Oxygen saturation by 2020-09-15 14:40:00 97 /min [facility] Heart Rate 2020-09-15 14:40:00 96 /min [facility] Respiratory rate 2020-09-15 14:40:00 16 /min [facility] BP Diastolic 2020-09-15 14:25:00 96 mm[Hg] [facility] BP Systolic 2020-09-15 14:25:00 175 mm[Hg] [facility] Oxygen saturation by 2020-09-15 14:25:00 98 /min [facility] Heart Rate 2020-09-15 14:25:00 99 /min [facility] Heart Rate 2020-09-15 11:14:00 70 /min [facility] Respiratory rate 2020-09-15 11:14:00 18 /min [facility] Body Temperature 2020-09-15 11:14:00 97.6 [degF] [facility] BP Diastolic 2020-09-15 08:52:00 75 mm[Hg] [facility] BP Systolic 2020-09-15 08:52:00 171 mm[Hg] [facility] Oxygen saturation by 2020-09-15 08:52:00 92 /min [facility] Heart Rate 2020-09-15 08:52:00 74 /min [facility] Respiratory rate 2020-09-15 08:52:00 18 /min [facility] Body Temperature 2020-09-15 08:52:00 97.6 [degF] [facility] BP Diastolic 2020-09-15 07:45:00 75 mm[Hg] [facility] BP Systolic 2020-09-15 07:45:00 171 mm[Hg] [facility] Oxygen saturation by 2020-09-15 07:45:00 92 /min [facility] Heart Rate 2020-09-15 07:45:00 74 /min [facility] Heart Rate 2020-09-15 04:00:00 68 /min [facility] Respiratory rate 2020-09-15 04:00:00 18 /min [facility] Body Temperature 2020-09-15 04:00:00 98.4 [degF] [facility] BP Diastolic 2020-09-15 00:00:00 71 mm[Hg] [facility] BP Systolic 2020-09-15 00:00:00 140 mm[Hg] [facility] Oxygen saturation by 2020-09-15 00:00:00 94 /min [facility] Heart Rate 2020-09-15 00:00:00 72 /min [facility] Heart Rate 2020-09-14 20:27:00 90 /min [facility] [...] [facility] Heart Rate 2020-09-14 20:00:00 90 /min [facility] Respiratory rate 2020-09-14 20:00:00 20 /min [facility] Body Temperature 2020-09-14 20:00:00 98.5 [degF] [facility] BP Diastolic 2020-09-14 15:47:00 82 mm[Hg] [facility] BP Systolic 2020-09-14 15:47:00 155 mm[Hg] [facility] Oxygen saturation by 2020-09-14 15:47:00 95 /min [facility] Heart Rate 2020-09-14 15:47:00 85 /min [facility] Respiratory rate 2020-09-14 15:47:00 16 /min [facility] Body Temperature 2020-09-14 15:47:00 98.1 [degF] [facility] BP Diastolic 2020-09-14 11:15:00 73 mm[Hg] [facility] BP Systolic 2020-09-14 11:15:00 165 mm[Hg] [facility] Oxygen saturation by 2020-09-14 11:15:00 93 /min [facility] Heart Rate 2020-09-14 11:15:00 89 /min [facility] Respiratory rate 2020-09-14 11:15:00 19 /min [facility] Body Temperature 2020-09-14 11:15:00 98.3 [degF] [facility] BP Diastolic 2020-09-14 07:49:00 67 mm[Hg] [facility] BP Systolic 2020-09-14 07:49:00 166 mm[Hg] [facility] Oxygen saturation by 2020-09-14 07:49:00 93 /min [facility] Heart Rate 2020-09-14 07:49:00 88 /min [facility] Respiratory rate 2020-09-14 07:49:00 18 /min [facility] Body Temperature 2020-09-14 07:49:00 97.9 [degF] [facility] BP Diastolic 2020-09-14 07:31:00 67 mm[Hg] [facility] BP Systolic 2020-09-14 07:31:00 166 mm[Hg] [facility] Oxygen saturation by 2020-09-14 07:31:00 93 /min [facility] Heart Rate 2020-09-14 07:31:00 88 /min [facility] Respiratory rate 2020-09-14 07:31:00 18 /min [facility] Body Temperature 2020-09-14 07:31:00 97.9 [degF] [facility] BP Diastolic 2020-09-14 04:00:00 74 mm[Hg] [facility] BP Systolic 2020-09-14 04:00:00 175 mm[Hg] [facility] Oxygen saturation by 2020-09-14 04:00:00 94 /min [facility] Heart Rate 2020-09-14 04:00:00 94 /min [facility] [...] [facility] Rate 2020-09-14 00:00:00 90 /min [facility] [...] [facility] Heart Rate 2020-09-13 20:12:00 88 /min [facility] [...] [facility] Heart Rate 2020-09-13 20:00:00 88 /min [facility] [...] 140 mm[Hg] [facility] Oxygen saturation by 2020-09-13 16:11:00 94 /min [facility] Heart Rate 2020-09-13 16:11:00 78 /min [facility] [...] [facility] Rate 2020-09-13 12:08:00 82 /min [facility] [...] [facility] Rate 2020-09-13 11:16:00 79 /min [facility] [...] [facility] Rate 2020-09-13 08:45:00 79 /min [facility] [...] [facility] Rate 2020-09-13 04:00:00 87 /min [facility] [...] [facility] Rate 2020-09-13 00:00:00 76 /min [facility] [...] [facility] Heart Rate 2020-09-12 22:28:00 96 /min [facility] [...] [facility] Heart Rate 2020-09-12 22:18:00 96 /min [facility] Respiratory rate 2020-09-12 22:18:00 18 /min [facility] Body Temperature 2020-09-12 22:18:00 97.9 [degF] [facility] BP Diastolic 2020-09-12 20:23:00 92 mm[Hg] [facility] BP Systolic 2020-09-12 20:23:00 150 mm[Hg] [facility] Oxygen saturation by 2020-09-12 20:23:00 96 /min [facility] Heart Rate 2020-09-12 20:23:00 95 /min [facility] Respiratory rate 2020-09-12 20:23:00 18 /min [facility] Body Temperature 2020-09-12 20:23:00 97.9 [degF] [facility] Oxygen saturation by 2020-09-12 20:11:00 96 /min [facility] Oxygen saturation by 2020-09-12 18:25:00 98 /min [facility] Oxygen saturation by 2020-09-12 15:35:00 98 /min [facility] Procedures Procedure Date / Time Performing Clinician Source Performed XR CHEST 1 VW PORTABLE 2021-07-12 01:01:53 Freeman Crabtree [facility] COVID-19 ANTI-SPIKE IGG 2021-07-11 10:41:00 [facility] ANTIBODY TITER COVID-19 SEROLOGY PATIENT 2021-07-11 10:41:00 [facility] SURVEILLANCE HC COMPLETE BLD COUNT 2021-07-11 10:41:00 [facility] W/AUTO DIFF BASIC METABOLIC PANEL 2021-07-11 10:41:00 [facility] ESTIMATED GFR 2021-07-11 10:41:00 [facility] URINE CULTURE 2021-07-11 06:57[facility] 2021-07-11 04:07:00 Latrell Sharpe [facility] MICROSCOPY, WITH REFLEX TO CULTURE POC GLUCOSE 2021-07-11 00:27:00 [facility] POC GLUCOSE 2021-07-10 14:52:00 [facility] HC COMPLETE BLD COUNT 2021-07-10 10:51:00 [facility] W/AUTO DIFF BASIC METABOLIC PANEL 2021-07-10 10:51:00 [facility] ESTIMATED GFR 2021-07-10 10:51:00 [facility] POC GLUCOSE 2021-07-10 02:09:[address] [facility] [address] CHEST WO CONTRAST 2021-07-09 21:47:19 [facility] HC COMPLETE BLD COUNT 2021-07-09 11:14:00 [facility] W/AUTO DIFF BASIC METABOLIC PANEL 2021-07-09 11:14:00 [facility] ESTIMATED GFR 2021-07-09 11:14:00 [facility] BLOOD CULTURE, AEROBIC & 2021-07-09 08:54:00 [facility] Trav R. TROPONIN T 2021-07-09 07:57:00 [facility] THYROID STIMULATING 2021-07-09 07:57:00 [facility] HORMONE T4, FREE 2021-07-09 07:57:00 [facility] LIPID PANEL 2021-07-09 07:57:00 [facility] INTERLEUKIN 6 2021-07-09 07:57:00 [facility] CRP HIGH SENSITIVITY 2021-07-09 07:57:00 [facility] LDH 2021-07-09 07:57:00 [facility] D-DIMER 2021-07-09 07:57:00 [facility] PROCALCITONIN 2021-07-09 07:57:00 [facility] PROTHROMBIN TIME WITH INR 2021-07-09 07:57:00 [facility] SEDIMENTATION RATE 2021-07-09 07:57:00 [facility] FERRITIN LEVEL 2021-07-09 07:57:00 [facility] ECG 12-LEAD 2021-07-09 06:58:43 [facility] XR CHEST 1 VW PORTABLE 2021-07-09 05:32:00 [facility] Trav R. TROPONIN T 2021-07-09 04:50:[address] [facility] [address] HEAD WO CONTRAST 2021-07-09 01:50:00 [facility] Trav RChun COVID-19 QUALITATIVE 2021-07-09 01:34:[address] [facility] RT-PCR Trav Lockhart COVID-19 OMICRON VARIANT 2021-07-09 01:34:00 [facility] QUALITATIVE RT-PCR Trav RChun HC COMPLETE BLD COUNT 2021-07-09 01:34:00 [facility] W/AUTO DIFF Trav RChun PROTHROMBIN TIME WITH INR 2021-07-09 01:34:00 [facility] Trav RChun PARTIAL THROMBOPLASTIN 2021-07-09 01:34:00 [facility] TIME (PTT) Trav RChun BASIC METABOLIC PANEL 2021-07-09 01:34:00 [facility] Trav R. TROPONIN T 2021-07-09 01:34:00 [facility] B NATRIURETIC PEPTIDE 2021-07-09 01:34:00 [facility] Trav R. ESTIMATED GFR 2021-07-09 01:34:00 Hugo [facility] barry Ravi RChun ECG 12-LEAD 2021-07-08 22:51:26 Hugo [facility] barry Ravi RChun CT RENAL STONE PROTOCOL 2021-07-01 18:38:22 [facility] URINALYSIS 2021-07-01 18:13:00 [facility] HC COMPLETE BLD COUNT 2021-04-23 10:03:00 [facility] W/AUTO DIFF BASIC METABOLIC PANEL 2021-04-23 10:03:00 [facility] ESTIMATED GFR 2021-04-23 10:03:[address] [facility] [address] CARDIAC OVERREAD 2021-04-20 15:36:45 [facility] CV CTA CORONARY ARTERIES 2021-04-20 15:36:00 Bebeto [facility] W CONTRAST HC COMPLETE BLD COUNT 2021-04-20 11:45:00 [facility] W/AUTO DIFF BASIC METABOLIC PANEL 2021-04-20 11:45:00 [facility] ESTIMATED GFR 2021-04-20 11:45:00 [facility] POC GLUCOSE 2021-04-19 13:28:00 [facility] CV CARDIAC PET STRESS 2021-04-19 13:18:51 Bebeto [facility] TEST CV CARDIAC PET MYOCARDIAL 2021-04-19 13:18:51 Bebeto [facility] PERFUSION IMAGING TROPONIN 2021-04-19 09:43:00 Jaclyn Tate Ho spital BASIC METABOLIC PANEL 2021-04-19 09:43:00 Bebeto [facility] ESTIMATED GFR 2021-04-19 09:43:00 Rafy Tateammilan Burns spital TTE LIMITED W CONTRAST, W 2021-04-18 17:20:00 Bebeto [facility] DOPPLER ([id number]) HC COMPLETE BLD COUNT 2021-04-18 14:31:00 [facility] W/AUTO DIFF BASIC METABOLIC PANEL 2021-04-18 14:31:00 [facility] ESTIMATED GFR 2021-04-18 14:31:00 [facility] B NATRIURETIC PEPTIDE 2021-04-18 09:20:00 Bebeto [facility] HC COMPLETE BLD COUNT 2021-04-16 08:35:00 [facility] W/AUTO DIFF BASIC METABOLIC PANEL 2021-04-16 08:35:00 [facility] ESTIMATED GFR 2021-04-16 08:35:00 [facility] POC GLUCOSE 2021-04-15 15:09:00 [facility] BASIC METABOLIC PANEL 2021-04-14 09:00:00 [facility] ESTIMATED GFR 2021-04-14 09:00:00 [facility] HC COMPLETE BLD COUNT 2021-04-14 08:40:00 [facility] W/AUTO DIFF PARTIAL THROMBOPLASTIN 2021-04-14 08:40:00 Rafy Tateammed [facility] TIME (PTT) PARTIAL THROMBOPLASTIN 2021-04-13 22:47:00 Bebeto [facility] TIME (PTT) HC COMPLETE BLD COUNT 2021-04-13 15:52:00 [facility] W/AUTO DIFF HC COMPLETE BLD COUNT 2021-04-13 11:34:00 [facility] W/AUTO DIFF SMEAR REVIEW 2021-04-13 11:34:00 [facility] HC COMPLETE BLD COUNT 2021-04-13 09:55:00 [facility] W/AUTO DIFF BASIC METABOLIC PANEL 2021-04-13 09:55:00 [facility] B NATRIURETIC PEPTIDE 2021-04-13 09:55:00 Bebeto [facility] ESTIMATED GFR 2021-04-13 09:55:00 [facility] PARTIAL THROMBOPLASTIN 2021-04-13 09:55:00 Jaclyn Tate [facility] TIME (PTT) TROPONIN 2021-04-13 09:00:00 [facility]IN 2021-04-13 02:20:00 Bebeto [facility] TIME (PTT) TROPONIN 2021-04-12 23:00:00 Char Palomo spital TROPONIN 2021-04-12 15:34:00 [facility] PROTHROMBIN TIME WITH INR 2021-04-12 15:34:00 Attzulay [facility] PARTIAL THROMBOPLASTIN 2021-04-12 15:34:00 Attzulay [facility] TIME (PTT) ANTI XA APIXABAN 2021-04-12 15:34:00 Rafy Tateammilan Burns ospital TTE COMPLETE, WO 2021-04-12 14:14:00 Rafy Tateammilan Burns ospital CONTRAST, W DOPPLER ([id number]) TROPONIN 2021-04-12 09:21:00 Char Palomo spital B NATRIURETIC PEPTIDE 2021-04-12 09:21:00 Stacia Char [facility] MAGNESIUM LEVEL 2021-04-12 09:21:00 [facility] PHOSPHORUS LEVEL 2021-04-12 09:21:00 [facility] 1 VW PORTABLE 2021-04-12 08:46:00 [facility] ECG 12-LEAD 2021-04-12 08:03:09 [facility] COVID-19 ANTI-SPIKE IGG 2021-04-12 08:01:00 [facility] ANTIBODY TITER COVID-19 SEROLOGY PATIENT 2021-04-12 08:01:00 [facility] SURVEILLANCE HC COMPLETE BLD COUNT 2021-04-12 08:01:00 [facility] W/AUTO DIFF BASIC METABOLIC PANEL 2021-04-12 08:01:00 [facility] LIPID PANEL 2021-04-12 08:01:00 [facility] THYROID STIMULATING 2021-04-12 08:01:00 [facility] HORMONE T4, FREE 2021-04-12 08:01:00 [facility] ESTIMATED GFR 2021-04-12 08:01:00 [facility] RESPIRATORY PATHOGEN 2021-04-12 07:27:00 Char Palomo [facility] PANEL WITH COVID-19 RT-PCR US DUPLEX VENOUS LOWER 2021-03-10 01:23:00 [facility] EXTREMITY BILATERAL XR CHEST 1 VW 2021-03-10 00:19:00 CelestinOfelia spital COMPREHENSIVE METABOLIC 2021-03-10 00:17:00 [facility] PANEL CBC WITH PLATELET AND 2021-03-10 00:17:00 [facility] DIFFERENTIAL B NATRIURETIC PEP, I-STAT 2021-03-10 00:17:00 [facility] TROPONIN, I-STAT 2021-03-10 00:17:00 Ofelia Celestinist H ospital ESTIMATED GFR 2021-03-10 00:17:00 Fawad Ofeliamolly HerreraSabianist Ho spital MANUAL DIFFERENTIAL 2021-03-10 00:17:00 [facility] ECG ED PRELIMINARY 2021-03-10 00:16:14 [facility] INTERPRETATION ECG 12-LEAD 2021-03-09 23:55:17 [facility] Sabianist Ho spital HC COMPLETE BLD COUNT 2021-02-23 09:51:00 [facility] W/AUTO DIFF BASIC METABOLIC PANEL 2021-02-23 09:51:00 [facility] ESTIMATED GFR 2021-02-23 09:51:00 [facility] HC COMPLETE BLD COUNT 2021-02-22 09:32:00 [facility] W/AUTO DIFF BASIC METABOLIC PANEL 2021-02-22 09:32:00 [facility] ESTIMATED GFR 2021-02-22 09:32:00 [facility] HC COMPLETE BLD COUNT 2021-02-21 09:50:00 [facility] W/AUTO DIFF BASIC METABOLIC PANEL 2021-02-21 09:50:00 [facility] LIPID PANEL 2021-02-21 09:50:00 [facility] ESTIMATED GFR 2021-02-21 09:50:00 [facility] COVID-19 ANTI-SPIKE IGG 2021-02-20 23:58:00 [facility] ANTIBODY TITER COVID-19 SEROLOGY PATIENT 2021-02-20 23:58:00 [facility] SURVEILLANCE THYROID STIMULATING 2021-02-20 23:58:00 [facility] HORMONE T4, FREE 2021-02-20 23:58:00 [facility] FERRITIN LEVEL 2021-02-20 23:58:00 [facility] LDH 2021-02-20 23:58:00 [facility] SEDIMENTATION RATE 2021-02-20 23:58:00 [facility] CRP HIGH SENSITIVITY 2021-02-20 23:58:00 [facility] INTERLEUKIN 6 2021-02-20 23:58:00 [facility] PROCALCITONIN 2021-02-20 23:58:00 [facility] D-DIMER 2021-02-20 23:58:00 [facility] PROTHROMBIN TIME WITH INR 2021-02-20 23:58:00 [facility] TROPONIN, I-STAT 2021-02-20 15:35:00 [facility] COVID-19 QUALITATIVE 2021-02-20 14:41:00 [facility] ANGIOGRAM PE CHEST 2021-02-20 13:52:50 Osmel Fowler [facility] US DUPLEX VENOUS LOWER 2021-02-20 12:59:12 [facility] RIGHT Narendra URINALYSIS 2021-02-20 12:35:00 [facility] XR CHEST 1 VW PORTABLE 2021-02-20 12:15:13 Isaac Quiles [facility] Narendra BASIC METABOLIC PANEL 2021-02-20 12:10:00 Isaac Quiles [facility] Narendra ESTIMATED GFR 2021-02-20 12:10:00 Isaac Quiles spital Narendra RESPIRATORY PATHOGEN 2021-02-20 12:05:00 [facility] PANEL WITH COVID-19 Narendra RT-PCR COMPREHENSIVE METABOLIC 2021-02-20 11:55:00 Isaac Quiles [facility] PANEL Narendra CBC WITH PLATELET AND 2021-02-20 11:55:00 Isaac Quiles [facility] DIFFERENTIAL Narendra CREATINE KINASE, TOTAL 2021-02-20 11:55:00 Isaac Quiles [facility] Narendra TROPONIN, I-STAT 2021-02-20 11:55:00 Vadim Calix [facility] ESTIMATED GFR 2021-02-20 11:55:00 Isaac Quiles spital Narendra PROTHROMBIN TIME WITH 2021-02-20 11:55:00 Isaac Quiles [facility] INR, I-STAT Narendra MANUAL DIFFERENTIAL 2021-02-20 11:55:00 Isaac Quiles [facility] Narendra ECG 12-LEAD 2021-02-20 11:33:15 Isaac Quiles spital Narendra ECG ED PRELIMINARY 2021-02-20 11:32:10 Isaac Quiles [facility] INTERPRETATION Narendra PHYSICIAN ORDERS 2021-01-24 05:01:00 Doctor Bryson, [facility] Name Medical Branch CT CERVICAL SPINE WO 2021-01-16 05:11:15 Mumtaz Swanson [facility] CONTRAST Medical Branch CT HEAD WO CONTRAST 2021-01-16 05:11:15 Mumtaz Swanson [facility] [place] NOTICE OF PRIVACY 2021-01-16 04:10:39 Doctor Bryson, [facility] PRACTICES [place] [facility] CT HEAD WO CONTRAST 2021-01-11 01:54:48 Sushma Juarez [facility] [place] CONSENT/REFUSAL FOR 2021-01-10 23:21:01 Doctor Bryson, [facility] DIAGNOSIS AND TREATMENT [place] [facility] NOTICE OF PRIVACY 2020-12-29 19:06:49 Doctor Unassigned, [facility] PRACTICES [place] [facility] CONSENT/REFUSAL FOR 2020-12-29 19:06:22 Doctor Unassigned, [facility] DIAGNOSIS AND TREATMENT [place] [facility] ASSIGNMENT OF BENEFITS 2020-12-29 19:06:04 Doctor Unassigned, [facility] [place] [facility] ASSIGNMENT OF BENEFITS 2020-12-29 17:51:14 Doctor Unassigned, [facility] [facility] HC COMPLETE BLD COUNT 2020-12-03 10:00:00 [facility] W/AUTO DIFF BASIC METABOLIC PANEL 2020-12-03 09:00:00 [facility] ESTIMATED GFR 2020-12-03 09:00:00 [facility] MRI BRAIN WO CONTRAST 2020-12-02 17:48:00 [facility] BASIC METABOLIC PANEL 2020-12-02 08:52:00 [facility] ESTIMATED GFR 2020-12-02 08:52:00 [facility] HC COMPLETE BLD COUNT 2020-12-02 08:38:00 [facility] W/AUTO DIFF US CAROTID DUPLEX 2020-12-01 20:45:00 [facility] BILATERAL TTE COMPLETE, WO 2020-12-01 16:39:21 [facility] CONTRAST, W DOPPLER ([id number]) HC COMPLETE BLD COUNT 2020-12-01 09:30:00 [facility] W/AUTO DIFF BASIC METABOLIC PANEL 2020-12-01 09:00:00 [facility] ESTIMATED GFR 2020-12-01 09:00:00 [facility] LIPID PANEL 2020-12-01 02:15:00 [facility] THYROID STIMULATING 2020-12-01 02:15:00 [facility] HORMONE T4, FREE 2020-12-01 02:15:00 [facility] TROPONIN 2020-12-01 02:15:00 [facility] HEMOGLOBIN A1C 2020-12-01 01:15:00 [facility] URINALYSIS, AUTOMATED 2020-11-30 22:23:00 [facility] WITH MICROSCOPY Олег COVID-19 QUALITATIVE 2020-11-30 21:44:00 [facility] RT-PCR [facility] CT HEAD WO CONTRAST 2020-11-30 19:03:25 [facility] CT ANGIOGRAM PE CHEST 2020-11-30 19:03:[address] [facility] ECG ED PRELIMINARY 2020-11-30 17:08:13 [facility] INTERPRETATION [facility] HC COMPLETE BLD COUNT 2020-11-30 16:15:00 [facility] W/AUTO DIFF [facility] PROTHROMBIN TIME WITH INR 2020-11-30 16:15:00 [facility] PART[facility] THROMB[facility]LASTIN 2020-11-30 16:15:00 [facility] TIME (PTT) [facility] COMPREHENSIVE METABOLIC 2020-11-30 16:15:00 [facility] PANEL [facility] TROPONIN 2020-11-30 16:15:00 [facility] B NATRIURETIC PEPTIDE 2020-11-30 16:15:[address] [facility] ESTIMATED GFR 2020-11-30 16:15:00 [facility]ER 2020-11-30 16:15:00 Rushford Bergholz Sabianist H ospital [facility] ECG 12-LEAD 2020-11-30 15:58:05 [facility] ospital Олег Computed tomography of 2020-09-20 00:00:00 RUSTAM Bruno - chest with contrast Patients [facility] Exploratory laparotomy 2020-09-15 00:00:00 RUSTAM [facility] of abdomen and pelvis 2020-03-02 00:00:[address] [facility] - without contrast Patients [facility] EXTERNAL PROVIDER RECORDS 2019-01-27 05:01:00 Doctor Unassigned, [facility] Plan of Care Planned Activity Planned Date Details Comments Source Future Scheduled 2021-08-08 65+ PNEUMOCOCCAL Methodi [facility] Test 13:10:32 VACCINE (1 of 4 - PCV13) [code = 65+ PNEUMOCOCCAL VACCINE (1 of 4 - PCV13)] Future Scheduled 2021-08-08 SHINGLES VACCINES (#1) M ethodi Hospital Test 13:10:32 [code = SHINGLES VACCINES (#1)] Future Scheduled 2021-08-08 COVID-19 VACCINE (3 - Me [facility] Test 13:10:32 Booster for Moderna series) [code = COVID-19 VACCINE (3 - Booster for Moderna series)] Encounters Start End Encounter Admission Attending Care Care Encounter Source Date/Time Date/Time Type Type Clinicians Facility Department ID 2021-04-30 Emergency [facility] [id number] [facility]30 Emergency [facility] [id number] Univers 08:16:39 [facility] 2020-09-12 Inpatient [facility] [id number] [facility] 15:27:00 -[id number] [facility] 2021-09-16 2021-09-16 Emergency EM Thomas, HCACL TERRI [id number] 02 [facility] 04:48:00 10:42:00 Justice [facility] 2021-09-16 2021-09-16 Emergency EM Thomas, HCACL HCACL [id number] [facility] 04:48:00 10:42:00 Justice 13 [facility] 2021-09-05 2021-09-05 Emergency EM Thomas, HCACL HCACL [id number] [facility] 15:16:00 17:36:00 Justice 84 [facility] 2021-09-05 2021-09-05 Emergency EM Thomas, HCACL TERRI [id number] 02 [facility] 15:16:00 17:36:00 Justice [facility] 2021-07-08 2021-07-13 [facility] Trav Arias2.84 0.1 [id number] Methodi 16:46:00 12:51:00 Encounter Vadim Calix 46381.1.[address] 3.430.2.7 Hospit a .3.491454 l .8 2021-07-08 2021-07-08 Travel 1.2.840.1 1.2.493.209 1071 [id number] Methodi 00:00:00 00:00:[address] 3.430.2.7 0.2.7.3.698 Ho spita .3.981228 084.8 l .8 2021-07-01 2021-07-01 Emergency Renee, 1.2.840.1 [id number] Methodi 11:41:00 13:43:[address] 3.430.2.7 Hospit a .3.234106 l .8 2021-06-18 2021-06-18 Outpatient 2030_Biopsy [place] [address] 827-978 [place] 12:38:00 12:38:00 [address] [facility] 2021-05-03 2021-05-03 Telephone Jessica 1.2.840.1 [id number] 2099 046419 Methodi 00:00:00 00:00:00 Ros Fernandez 73018.1.[address] 3.430.2.7 Hospit a .3.651700 l .8 2021-04-11 2021-04-23 [facility] Anupam, 1.2.840.1 [id number] Methodi 23:25:00 17:41:00 Encounter Vadim Briscoe 25924.1.[address] 3.430.2.7 Hospit a .3.131848 l .8 2021-04-19 2021-04-19 [facility] Bebeto, 1.2.840.1 [id number] 05197 Methodi 07:00:00 23:59:00 Encounter Jaclyn 56916.1.1 627 s t 3.430.2.7 Hospit a .3.271279 l .8 2021-03-09 2021-03-09 Emergency Ofelia Celestin 1.2.840.1 [id number] Methodi 18:40:00 21:02:[address] 3.430.2.7 Hospit a .3.463127 l .8 2021-03-09 2021-03-09 Travel 1.2.840.1 1.2.590.109 1478 090143 Methodi 00:00:00 00:00:[address] 3.430.2.7 0.2.7.3.698 Ho spita .3.007275 084.8 l .8 2021-02-20 2021-02-23 [facility] 1.2.840.1 104 [id number] Methodi 06:07:00 13:24:00 Encounter Vadim Calix 43270.1.[address] 3.430.2.7 Hospit a .3.049900 l .8 2021-02-20 2021-02-20 Travel 1.2.840.1 1.2.191.647 9490 804422 Methodi 00:00:00 00:00:[address] 3.430.2.7 0.2.7.3.698 Ho spita .3.653845 084.8 l .8 2021-01-30 2021-01-30 Outpatient R HESHAM [facility] [id number] Univers 14:30:00 14:30:00 WONDIFUL ity o f [facility] 2021-01-24 2021-01-24 Department Specialist Carolyn, Fred Lab Main [facility] 1.2.8 40.114 [id number] Univers 15:50:12 16:05:12 Visit David Joe 350.1.13.1 0 it[place] 4.2.7.2.686 [place] [phone] [address] 2021-01-24 2021-01-24 Outpatient R [facility] [id number] -[id number] Univers 16:00:00 16:00:00 [id number] ity of [facility] 2021-01-24 2021-01-24 Outpatient R ANTHONY [facility] [id number] Univers 16:00:00 16:00:00 DAVID ity of [facility] 2021-01-24 2021-01-24 Orders Doctor DAVID 1.2.840.114 [id number] Univers 00:00:00 00:00:00 Only Unassigned, GREGORY 350.1.13.10 ity of [place] [facility] 4.2.7.2.686 Flash as [phone] [facility] 009 Branch 2021-01-15 2021-01-16 Emergency [facility] 1.2.996.298 5080 8437 Univers 23:22:00 03:17:00 Mumtaz Tineo 350.1.13.10 i [place] of [place].7.2.686 [place] [id number] [facility] 084 Branch 2021-01-10 2021-01-10 Emergency Sagar Holland [facility] 1.2.840.114 [id number] Univers 18:49:00 22:03:00 May Tineo 350.1.13.10 i [place] 4[place]2.7.2.686 [place] [id number] [facility] 084 Branch 2020-12-29 2020-12-29 [facility] 1.2.840.114 [id number] Univers 14:04:19 23:59:00 Encounter Melody Tineo 350.1.13.10 [place] 4[place].2.686 [place] [phone] [facility] 807 Branch 2020-12-29 2020-12-29 [facility] 1.2.840.114 [id number] 846 Univers 14:00:00 14:03:00 Encounter Melody Tineo 350.1.13.10 [place] of [place] 4[place].7.2.686 [place] [id number] [facility] 807 Branch 2020-12-29 2020-12-29 Outpatient [facility] [id number] -[id number] Univers 14:00:00 14:00:00 MEL[facility] 234015 [facility] 2020-12-29 2020-12-29 [facility] 1.2.840.114 [id number] 12:52:54 13:35:06 Visit Melody Dodson [facility] 350.1.13.10 [place] 4.2.7.2.686 Professio [phone] [address] 2020-12-29 2020-12-29 [facility] 1.2.840.114 [id number] Univers 12:52:54 13:35:06 Visit Melody Dodson [facility] 350.1.13.10 i ty of [place] 4.2.7.2.686 Flash as Professio [phone] Co dical [address] One 2020-12-29 2020-12-29 Outpatient R [facility] [id number] Univers 13:00:00 13:00:00 MELODY [facility] 2020-12-29 2020-12-29 Orders Doctor DAVID 1.2.840.114 [id number] Univers 00:00:00 00:00:00 Only Unassigned, GREGORY 350.1.13.10 ity of [place] [facility] 4.2.7.2.686 Flash as [id number] [address] 2020-11-30 2020-12-04 [facility] Elliot Parkinson 1.2.840.1 [id number] Methodi 10:51:00 15:23:00 Encounter Vadim Calix 35479.1.[address] 3.430.2.7 Hospit a .3.365291 l .8 2020-11-30 2020-11-30 Travel 1.2.840.1 1.2.302.998 2208 252499 Methodi 00:00:00 00:00:[address] 3.430.2.7 0.2.7.3.698 Ho spita .3.117629 084.8 l .8 2020-09-12 2020-09-28 Discharged 1 SAINI[facility] [id number] 19:18:00 13:20:00 Inpatient SOUHEIL Patients 99 [facility] 2020-03-02 2020-03-02 Outpatient [facility] [id number] 14:00:00 14:00:00 -[id number] [place] - Patient [facility] 2020-03-02 2020-03-02 Registered 3 YENY, [facility] V8863 [address] 13:32:00 13:32:00 Clinic JEANNINE Patients 29 [facility] 2020-02-24 2020-02-24 Outpatient [facility] [id number] 14:00:00 14:00:00 -[id number] [place] - Patient [facility] 2020-02-23 2020-02-23 Outpatient [facility] [id number] 12:00:00 12:00:00 -[id number] [place] s - Patient [facility] 2019-01-27 2019-01-27 Orders Doctor DAVID 1.2.840.114 [id number] Univers 00:00:00 00:00:00 Only Unassigned, GREGORY 350.1.13.10 ity of [place] [facility] 4.2.7.2.686 Flash as [phone] [facility] hemal 009 Branch Results Test Description Test Time Test Comments Results Result [facility] e Comments - CT C-SPINE W/O 2021-09-16 CONT 00:00:00 [facility] AZLE LAKEName: JUSTICE HARDY : 1930 Sex: M Name: JUSTICE HARDY [facility] : 1930 Age/S: 89 / M [address] [place] [address] Unit #: [id number] Loc: [place] [address] Phys: Kezia Tolbert Acct: [id number] Dis Date: Status: PRE ER PHONE #: [phone] Exam Date: 09/16/2021 05 FAX #: [phone] Reason: FALL OUT OF BED, NECK PAIN EXAMS: CPT CODE: [id number] CT C-SPINE W/O CONT 37191 PROCEDURE INFORMATION: Exam: CT Cervical Spine Without [...] - CT HEAD/BRAIN 2021-09-16 W/O CONT 00:00:00 [facility] : 1930 Sex: M Name: JUSTICE HARDY [facility] : 1930 Age/S: 89 / M [address] [place] [address] Blvd Unit #: [id number] Loc: [place] [address] Phys: Kezia Tolbert APRNNP Acct: [id number] Dis Date: Status: PRE ER PHONE #: [phone] Exam Date: 09/16/2021537 FAX #: [phone] Reason: FALL OUT OF BED, HEAD INJURY EXAMS: CPT CODE: [id number] CT HEAD/BRAIN W/O CONT 46002 PROCEDURE INFORMATION: Exam: CT Head Without Contrast [...] - XR CHEST 1 V 2021-09-16 00:00:00 [facility] : 1930 Sex: M FAX: Shadi Rosales MD [phone] [place]: St: REG FAX: Kezia Tolbert APR [phone] Name: JUSTICE HARDY [facility] : 1930 Age/S: 89/M [address] [place] [address] Unit #: [id number] Loc: [place] [address] Phys: Kezia Tolbert Acct: [id number] Dis Date: Status: REG ER PHONE #: [phone] Exam Date: 09/16/2021 0601 FAX #: [phone] Reason: FALL OUT OF BED EXAMS: CPT CODE: [id number] XR CHEST 1 V 80132 PROCEDURE INFORMATION: Exam: XR Chest Exam date [...] XR PELVIS 07/012021-09-16 VIEWS 00:00:00 [facility] AZLE LAKEName: JUSTICE HARDY : 1930 Sex: M FAX: Shadi Rosales MD [phone] [place]: St: REG FAX: Kezia Tolbert APR [phone] Name: HARDYCORNELIAJUSTICE [facility] : 1930 Age/S: 89/M [address] [place] [address] Unit #: [id number] Loc: [place] [address] Phys: Kezia Tolbert APRNNP Acct: [id number] Dis Date: Status: REG ER PHONE #: [phone] Exam Date: 09/16/2021 0603 FAX #: [phone] Reason: PELVIC PAIN EXAMS: CPT CODE: [id number] XR PELVIS 1/2 VIEWS 57211 PROCEDURE INFORMATION: Exam: XR Pelvis Exam date [...] Report - XR T-SPINE 3V 2021-09-16 00:00:00 [facility] : 1930 Sex: M FAX: Shadi Rosales MD [phone] [place]: St: [facility] FAX: Kezia Tolbert APR [phone] Name: JUSTICE HARDY [facility] : 1930 Age/S: 89/M [address] [place] [address] Unit #: [id number] Loc: [place] [address] Phys: Kezia Tolbert Acct: [id number] Dis Date: Status: REG ER PHONE #: [phone] Exam Date: 09/16/2021 06 FAX #: [phone] Reason: BACK PAIN EXAMS: CPT CODE: [id number] XR T-SPINE 3V 61142 PROCEDURE INFORMATION: Exam: XR Thoracic Spine Exam [...] Trnscrd Date/Time/By: 09/16/2021 (629) : By: [email or web address] [facility] Print D/T: S: 09/16/2021 (629) PAGE 1 Signed Report - XR PELVIS 07/012021-09-05 VIEWS 00:00:00 [facility] AZLE LAKEName: JUSTICE HARDY : 1930 Sex: M FAX: Justice Guzman MD [phone] [place]: St: [facility] FAX: Shadi Rosales MD [phone] Name: JUSTICE HARDY [facility] : 1930 Age/S: 89/M [address] [place] [address] Unit #: [id number] Loc: [place] [address] Phys: Justice Guzman MD Acct: [id number] Dis Date: Status: REG ER PHONE #: [phone] Exam Date: 09/05/2021 1714 FAX #: [phone] Reason: fall EXAMS: CPT CODE: [id number] XR PELVIS 1/2 VIEWS 92170 PROCEDURE INFORMATION: Exam: XR Pelvis Exam date [...] By: BernardM Orig Print D/T: S: 09/05/2021 (0979) PAGE 1 Signed Report - CT HEAD/BRAIN 2021-09-05 W/O CONT 00:00:00 [facility] : 1930 Sex: M Name: JUSTICE HARDY [facility] : 1930 Age/S: 89 / M [address] [place] [address] Unit #: [id number] Loc: [place] [address] Phys: NancyTierney N APRNN Acct: [id number] Dis Date: Status: REG ER PHONE #: [phone] Exam Date: 09/05/2021 1604 FAX #: [phone] Reason: FALL FROM CHAIR, HEAD PAIN, ON ELIQUIS EXAMS: CPT CODE: [id number] CT HEAD/BRAIN W/O CONT 59185 PROCEDURE INFORMATION: Exam: CT Head Without Contrast [...] 1 Signed Report (CONTINUED) Name: JUSTICE HARDY [facility] : 1930 Age/S: 89 / M [address] [place] [address] Unit #: [id number] Loc: [place] [address] Phys: Tierney Cruz Acct: [id number] Dis Date: Status: REG ER PHONE #: [phone] Exam Date: 09/05/2021 1604 FAX #: [phone] Reason: FALL FROM CHAIR, HEAD PAIN, ON ELIQUIS EXAMS: CPT CODE: [id number] CT HEAD/BRAIN W/O CONT 92711 <Continued> CC: Tierney Cruz Technologist:RT Mariel(R)(CT) CTDI: DLP: Trnscb Date/Time: 09/05/2021 (1622) [email or web address] [facility] Print D/T: S: 09/05/2021 (1622) PAGE 2 Signed Report Urine culture 2021-07-11 07:18:43 Test Item Value Reference Range Interpretation Comme nts Urine culture (test code = 4146866) SEE COMMENT Bacteriuria screen negative. [facility] [id number] 00:28:29 Test Item Value Reference Range Interpretation Comments POC glucose (test code 140 mg/dL 65-99 H Opera tor Name: Theodore = 95058-5) Ga ID : [id number] able: [facility] Notified system support technician Interpretation Abnormal (test code = 66575-8) [facility] [id number] 21:20:43 Test Item Value Reference Range Interpretation Comments Ventricular rate (test code = 253) Atrial rate (test code = 255) TN interval (test code = 266) QRSD interval [...] product )-Septal infarct , age undetermined-Abnormal ECG- [facility] stress [id number] 11:08:47 Test Item Value Reference Range Interpretation Comments Resting HR (test code = 8634044596) Resting BP (test code 132&63 = 4502866518) Peak MET Achieved (test code = 9293712251) Protocol Name (test Lexiscan code = 9935023273) Time in Exercise 00:01:00 Phase (test code = 4688459131) Max Systolic BP (test code = 0363815784) Max Diastolic BP (test code = 7729761001) Max Heart Rate (test code = 4080301609) Max Predicted Heart Rate (test code = 5403553836) Target HR Formula (220 - Age)*100% (test code = 4337328638) Test Indication (test Screening for CAD code = 4383068246) Arrhy During Ex (test code = 6606139258) ECG Interp Before EX (test code = 3714094570) ECG Interp During Ex (test code = 4989277300) Ex Summary Comment (test code = 1723435743) Overall HR Response to Exercise (test code = 7649447444) Overall BP Response To Exercise (test code = 0730398501) Reason for Protocol Complete Termination (test code = 3223117970) Stress Test -Waveform interpreted in Impression (test code report associated with = 4611827684) image study. No interpretation is provided as part of this Stress ECG report.-Electronically Signed By Venu GARCIA, David Camarena ([id number]), rewrite editor Sylvia Henriquez (111) on 04/21/2021 6:08:42 AM [facility] HEAD WO [id number] 01:56:56 No acute intracranial abnormality. CT HEAD [...] and mastoidair cells are clear. Left pseudophakia. [facility], Radiant Results Inft User - 01/10/2021 8:57 [...] cells are clear. Left pseudophakia.IMPRESSIONNo acute intracranial abnormality.[facility] leukocytes automated count (number/volume)2020-09-28 05:25:00 Test Item Value Reference Range Interpretation Comments White Blood Count (test code = 6690-2) 10.37 4.8-10.8 [facility] count (number/volume)2020-09-28 05:25:00 Test Item Value Reference Range Interpretation Comments Red Blood Count (test code = 789-8) 3.00 4.3-5.7 [facility] hemoglobin measurement (moles/volume)2020-09-28 05:25:00 Test Item Value Reference Range Interpretation Comments Hemoglobin (test code = 85043-0) 9.1 14.0-18.0 [facility] blood hematocrit (volume fraction)2020-09-28 05:25:00 Test Item Value Reference Range Interpretation Comments Hematocrit (test code = 4544-3) 26.0 38.2-49.6 [facility] erythrocyte mean corpuscular [id number] 05:25:00 Test Item Value Reference Range Interpretation Comments Mean Corpuscular Volume (test code = 86.7 81-99 787-2) [facility] mean corpuscular hemoglobin (mass per erythrocyte)2020-09-28 05:25:00 Test Item Value Reference Range Interpretation Comments Mean Corpuscular Hemoglobin (test code 30.3 28-32 = 785-6) [facility] eryth[facility] mean corpuscular hemoglobin concentration measurement (mass/volume)2020-09-28 05:25:00 Test Item Value Reference Range Interpretation Comments Mean Corpuscular Hemoglobin Concent 35.0 31-35 (test code = 786-4) [facility]entonRDW [id number] 05:25:00 Test Item Value Reference Range Interpretation Comments Red Cell Distribution Width (test code 16.1 11.7-14.4 = 00747-1) [facility]enton[facility] platelet count (count/volume)2020-09-28 05:25:00 Test Item Value Reference Range Interpretation Comments Platelet Count (test code = 777-3) 253 140-360 [facility] segmented neutrophil count as percentage of total hxggdogqhr3055-71-18 05:25:00 Test Item Value Reference Range Interpretation Comments Neutrophils (%) (Auto) (test code = 77.9 38.7-80.0 29822-1) [facility] lymphocyte count as percentage ot total wrwdrrptho9206-89-37 05:25:00 Test Item Value Reference Range Interpretation Comments Lymphocytes (%) (Auto) (test code = 12.3 18.0-39.1 736-9) [facility] monocyte count as percentage of total lmfniieozr3406-95-88 05:25:00 Test Item Value Reference Range Interpretation Comments Monocytes (%) (Auto) (test code = 6.4 4.4-11.3 5905-5) [facility] blood eosinophil count as percentage of total gueqiuimky9829-64-64 05:25:00 Test Item Value Reference Range Interpretation Comments Eosinophils (%) (Auto) (test code = 1.8 0.0-6.0 713-8) [facility] blood basophil count as percentage of total qcbcqbpkhc0171-01-30 05:25:00 Test Item Value Reference Range Interpretation Comments Basophils (%) (Auto) (test code = 0.4 0.0-1.0 706-2) [facility]entonFluoroscopic procedure less than one hour gpvsvbcl9359-70-57 05:25:00 Test Item Value Reference Range Interpretation Comments IM GRANULOCYTES % (test code = IM 1.2 0.0-1.0 GRANULOCYTES %) [facility] neutrophil count 2020-09-28 05:25:00 Test Item Value Reference Range Interpretation Comments Neutrophils # (Auto) (test code = 8.1 2.1-6.9 751-8) [facility] lymphocytes count (number/volume) 2020-09-28 05:25:00 Test Item Value Reference Range Interpretation Comments Lymphocytes # (Auto) (test code = 1.3 1.0-3.2 50075-0) [facility] monocytes automated count (number/volume)2020-09-28 05:25:00 Test Item Value Reference Range Interpretation Comments Monocytes # (Auto) (test code = 742-7) 0.7 0.2-0.8 [facility] blood eosinophil count 2020-09-28 05:25:00 Test Item Value Reference Range Interpretation Comments Eosinophils # (Auto) (test code = 0.2 0.0-0.4 711-2) [facility]entonAutom[facility] blood basophil count (count/volume)2020-09-28 05:25:00 Test Item Value Reference Range Interpretation Comments Basophils # (Auto) (test code = 704-7) 0.0 0.0-0.1 [facility]entonFluoroscopic procedure less than one hour vtxlahfq4656-05-30 05:25:00 Test Item Value Reference Range Interpretation Comments Absolute Immature Granulocyte (auto 0.12 0-0.1 (test code = Absolute Immature Granulocyte (auto) [facility] plasma sodium measurement (moles/volume)2020-09-28 05:25:00 Test Item Value Reference Range Interpretation Comments Sodium Level (test code = 2951-2) 132 136-145 [facility] or plasma potassium measurement (moles/volume)2020-09-28 05:25:00 Test Item Value Reference Range Interpretation Comments Potassium Level (test code = 2823-3) 3.3 3.5-5.1 [facility] or plasma chloride measurement (moles/volume)2020-09-28 05:25:00 Test Item Value Reference Range Interpretation Comments Chloride Level (test code = 2075-0) 106 98-107 [facility]ell[facility]um or plasma carbon dioxide, total measurement (moles/volume)2020-09-28 05:25:00 Test Item Value Reference Range Interpretation Comments Carbon Dioxide Level (test code = -2027-9) [facility] or plasma anion [id number] 05:25:00 Test Item Value Reference Range Interpretation Comments Anion Gap (test code = 41841-8) 9.3 8-16 [facility] or plasma urea nitrogen measurement (mass/volume)2020-09-28 05:25:00 Test Item Value Reference Range Interpretation Comments Blood Urea Nitrogen (test code = 18 7- 3094-0) [facility] or plasma creatinine measurement (mass/volume)2020-09-28 05:25:00 Test Item Value Reference Range Interpretation Comments Creatinine (test code = 2160-0) 0.83 0.72-1.25 [facility] urea nitrogen/creatinine mass [id number] 05:25:00 Test Item Value Reference Range Interpretation Comments BUN/Creatinine Ratio (test code = 22 6- 3097-3) [facility]enton[facility]ated glomerular filtration rate (GFR) irebghjowlpqy8469-70-91 05:25:00 Test Item Value Reference Range Interpretation Comments Estimat Glomerular > 60 See_Comment [Automat ed message] The Filtration Rate (test system which generated code = 007209066) this resul t transmitted reference range : 60-. The reference r duane was not used to int erpret this result as normal/abnormal . [facility]entonGlucose wjaxkpzzlnw1452-78-93 05:25:00 Test Item Value Reference Range Interpretation Comments Glucose Level (test code = UXT8277) 104 74-118 [facility] or plasma calcium measurement (mass/volume)2020-09-28 05:25:00 Test Item Value Reference Range Interpretation Comments Calcium Level (test code = 29217-7) 7.4 8.4-10.2 [facility] plasma total bilirubin measurement (mass/volume)2020-09-28 05:25:00 Test Item Value Reference Range Interpretation Comments Total Bilirubin (test code = 1975-2) 0.7 0.2-1.2 [facility]entonFluoroscopic procedure less than one hour [id number] 05:25:00 Test Item Value Reference Range Interpretation Comments Aspartate Amino Transf (AST/SGOT) (test 74 5-34 code = Aspartate Amino Transf (AST/SGOT)) [facility] plasma alanine aminotransferase measurement (enzymatic activity/volume)2020-09-28 05:25:00 Test Item Value Reference Range Interpretation Comments Alanine Aminotransferase (ALT/SGPT) 107 0-55 (test code = 1742-6) [facility] protein measurement (mass/volume)2020-09-28 05:25:00 Test Item Value Reference Range Interpretation Comments Total Protein (test code = 2885-2) 4.2 6.5-8.1 [facility] albumin measurement (mass/volume)2020-09-28 05:25:00 Test Item Value Reference Range Interpretation Comments Albumin (test code = 1751-7) 1.9 3.5-5.0 [facility]entonPlasma globulin measurement (mass/volume) 2020-09-28 05:25:00 Test Item Value Reference Range Interpretation Comments Globulin (test code = 92514-8) 2.3 2.3-3.5 [facility] albumin/globulin mass kkkko6927-93-44 05:25:00 Test Item Value Reference Range Interpretation Comments Albumin/Globulin Ratio (test code = 0.8 0.8-2.0 1759-0) [facility] plasma alkaline phosphatase measurement (enzymatic activity/volume)2020-09-28 05:25:00 Test Item Value Reference Range Interpretation Comments Alkaline Phosphatase (test code = 100 40-150 6768-6) [facility]entonTroponin I measurement by highly sensitive enzyme penzwiwefep5229-97-68 05:25:00 Test Item Value Reference Range Interpretation Comments Troponin I (test code = 39264-9) 0.109 0-0.300 [facility]entonCHEST SINGLE (PORTABLE)2020-09-26 10:41:00[facility] 1930 Sex: [place] [address] Patient Name: JUSTICE HARDY MR #: [id number] : 1930 Age/Sex: 89/M Req #: [id number] Adm Physician: ZACHARIAH SAINI MD Ordered by: ARASH CASTORENA MD Report #: [id number] Location: MED/SURG Room/Bed: [facility] Procedure: [id number] DX/CHEST SINGLE (PORTABLE) Exam Date: 09/26/20 Exam [...] 2020-09-26 09:13:00 [facility] : 1930 Sex: [place] [address] Patient Name: JUSTICE HARDY MR #: [id number] : 1930 Age/Sex: 89/M Req #: [id number] Adm Physician: ZACHARIAH SAINI MD Ordered by: JEANNINE SAINI MD Report #: [id number] Location: MED/SURG Room/Bed: [facility] Procedure: [id number] DX/ABDOMEN 2 VIEW Exam Date: 09/26/20 Exam [...] Natriuretic Peptide (test code = 50.2 0-100 23749-6) [facility] amylase measurement (enzymatic activity/volume)2020-09-26 05:17:00 Test Item Value Reference Range Interpretation Comments Amylase Level (test code = 1798-8) 98 25-125 [facility] plasma lipase measurement (enzymatic activity/volume)2020-09-26 05:17:00 Test Item Value Reference Range Interpretation Comments Lipase (test code = 3040-3) 98 8-78 [facility]entonABDOMEN 2 [id number] 23:59:00 [facility] : 1930 Sex: [place] [address] Patient Name: JUSTICE HARDY MR #: [id number] : 1930 Age/Sex: 89/M Req #: [id number] Adm Physician: ZACHARIAH SAINI MD Ordered by: JEANNINE SAINI MD Report #: [id number] Location: MED/SURG Room/Bed: [facility] Procedure: [id number] DX/ABDOMEN 2 VIEW Exam Date: 09/24/20 Exam [...] levels are seen in the right hemiabdomen. [place] lucency in the upper abdomen on the upright view projecting over the T12 vertebral body , likely represents pneumoperitoneum IMPRESSION: 1. Overall appearance of postsurgical ileus with diffuse mildly dilated small bowel and distended air distended colon to the level of the rectum. Distal obstruction is not excluded. Recommend radiographic follow-up until resolution. 2. [place] lucency projecting over the T12 vertebral body may represent pneumoperitoneum as seen on recent chest CT, possibly related to recent surgery. Signed by: Patricia Wheat MD on 09/25/2020 12:48 AM Dictated By: TIESHA WHEAT MD Transcribed By: AYDEN on 09/25/2047 COPY TO: JEANNINE SAINIerum or plasma magnesium measurement (mass/volume)2020-09-23 16:40:00 Test Item Value Reference Range Interpretation Comments Magnesium Level (test code = 98376-7) 1.5 1.3-2.1 [facility]entonFluoroscopic procedure less than one hour ddtijhjz3011-85-82 08:51:00 Test Item Value Reference Range Interpretation Comments Differential Total Cells Counted (test 100 code = Differential Total Cells Counted) [facility] leukocytes 2020-09-22 08:51:00 Test Item Value Reference Range Interpretation Comments Neutrophils % (Manual) (test code = 86 40-74 16481-2) [facility] blood band neutrophils form/100 sqzccmpvvu1147-73-58 08:51:00 Test Item Value Reference Range Interpretation Comments Band Neutrophils % (test code = 764-1) 0 [facility] blood lymphocytes/100 leukocytes 2020-09-22 08:51:00 Test Item Value Reference Range Interpretation Comments Lymphocytes % (Manual) (test code = 7 19-48 737-7) [facility] blood monocytes/100 leukocytes 2020-09-22 08:51:00 Test Item Value Reference Range Interpretation Comments Monocytes % (Manual) (test code = 7 3.4-9.0 744-3) [facility]entonAutomated reticulocyte count as percentage of total jsgeiwxythuk2473-58-56 05:15:00 Test Item Value Reference Range Interpretation Comments Percent Reticulocyte Count (test code = 1.5 0.8-2.2 26325-4) [facility] iron measurement (mass/volume)2020-09-21 05:15:00 Test Item Value Reference Range Interpretation Comments Iron Level (test code = 2498-4) 26 65-175 [facility] iron binding capacity measurement (mass/volume)2020-09-21 05:15:00 Test Item Value Reference Range Interpretation Comments Total Iron Binding Capacity (test code 193 014-727 = 2500-7) [facility] iron saturation measurement (mass fraction)2020-09-21 05:15:00 Test Item Value Reference Range Interpretation Comments Percent Iron Saturation (test code = 13 15-50 2502-3) [facility] plasma transferrin measurement (mass/volume)2020-09-21 05:15:00 Test Item Value Reference Range Interpretation Comments Transferrin (test code = 3034-6) 138 960-364 [facility]entonBlood cobalamin (vitamin B12) measurement (mass/volume)2020-09-21 05:15:00 Test Item Value Reference Range Interpretation Comments Vitamin B12 Level (test code = 80951-2) 591 213816 [facility] folate measurement (mass/volume)2020-09-21 05:15:00 Test Item Value Reference Range Interpretation Comments Folate (test code = 2284-8) 17.8 >3.0 [facility]CT CHEST [id number] 21:42:00 [facility] : 1930 Sex: [place] [address] Patient Name: JUSTICE HARDY MR #: [id number] : 1930 Age/Sex: 89/M Req #: [id number] Adm Physician: ZACHARIAH SAINI MD Ordered by: AJ FLYNN DO Report #: [id number] Location: MED/SURG Room/Bed: [facility] Procedure: [id number] CT/CT CHEST W Exam Date: 09/20/20 Exam Time: 2114 REPORT STATUS: Signed EXAM: CT Chest WITH contrast 09/20/2020 9:15 PM INDICATION: PE [id number] 2114 COMPARISON: None TECHNIQUE: Chest was scanned [...] 09/20/202199 COPY TO: AJ FLYNN DO Phosphorus pkzglsbmzho7854-98-01 03:45:00 Test Item Value Reference Range Interpretation Comments Phosphorus Level (test code = YOA3636) 0.8 2.3-4.7 [facility]entonCHES SINGLE (PORTABLE)2020-09-17 15:26:00[facility] : 1930 Sex: [place] [address] Patient Name: JUSTICE HARDY MR #: [id number] : 1930 Age/Sex: 89/M Req #: [id number] Adm Physician: ZACHARIAH SAINI MD Ordered by: ZACHARIAH SAINI MD Report #: [id number] Location: ICU Room/Bed: [place] [address] Procedure: [id number] DX/CHEST SINGLE (PORTABLE) Exam Date: 09/17/20 Exam [...] (PT) in platelet poor plasma by coagulation [id number] 10:55:00 Test Item Value Reference Range Interpretation Comments Prothrombin Time (test code = 5902-2) 16.5 11.9-14.5 [facility]entonINR in Platelet poor plasma by Coagulation pqdya0744-26-44 10:55:00 Test Item Value Reference Range Interpretation Comments Prothromb Time International Ratio 1.25 (test code = 6301-6) [facility]entonCHEST XRAY LINE ECMMBWYSD8120-99-25 20:57:00[facility] : 1930 Sex: M [facility] [address] [place] [address] Patient Name: JUSTICE HARDY MR #: [id number] : 1930 Age/Sex: 89/M Req #: [id number] [facility] Physician: ZACHARIAH SAINI MD Ordered by: ZACHARIAH SAINI MD Report #: [id number] Location: ICU Room/Bed: [place] [address] Procedure: [id number] DX/CHEST XRAY LINE PLACEMENT Exam Date: 09/16/20 [...] likely within gastric lumen, [facility]. Infrahilar haziness, atelectasis or pneumonia/aspiration. Signed by: Eugenio Ye DO on 09/16/2020 9:02 PM Dictated By: EUGENIO YE DO 01 Transcribed By: AYDEN on 09/16/202101 COPY TO: ZACHARIAH SAINI [facility] S[facility] ([facility]ABLE)2020-09-15 14:55:00 [facility] : 1930 Sex: [place] [address] Patient Name: JUSTICE HARDY MR #: [id number] : 1930 Age/Sex: 89/M Req #: [id number] Adm Physician: ZACHARIAH SAINI MD Ordered by: DHARMESH LINARES MD Report #: [id number] Lo cation: MED/SURG Room/Bed: [facility] Procedure: [id number] DX/CHEST SINGLE (PORTABLE) Exam Date: 09/15/20 Exam [...] W/TENZIN CXR 2020-09-15 10:17:[address] : 1930 Sex: [place] [address] Patient Name: JUSTICE HARDY MR #: [id number] : 1930 Age/Sex: 89/M Req #: [id number] Adm Physician: ZACHARIAH SAINI MD Ordered by: DHARMESH LINARES MD Report #: [id number] Lo cation: MED/SURG Room/Bed: [facility] Procedure: [id number] DX/ABDOMEN ACUTE SERIES W/PA CXR Exam Date: [...] TO: DHARMESH LINARES MDABDOMEN ACUTE SERIES W/TENZIN [id number] 10:50:00 [facility] : 1930 Sex: M [facility] [address] [place] [address] Patient Name: JUSTICE HARDY MR #: [id number] : 1930 Age/Sex: 89/M Req #: [id number] Adm Physician: ZACHARIAH SAINI MD Ordered by: DHARMESH LINARES MD Report #: [id number] Lo cation: MED/SURG Room/Bed: [facility] Procedure: [id number] DX/ABDOMEN ACUTE SERIES W/TENZIN CXR Exam Date: 09/14/20 Exam Time: 1020 REPORT STATUS: Signed X-ray abdomen acute series with 2 views of the abdomen and a single view of the chest INDICATION: sbo [id number] Comparison: X-ray dated 09/14/2019. Discussion: Lungs [...] Kinase (test code = 2157-6) 385 30-200 [facility] plasma creatine kinase MB measurement (mass/volume)2020-09-13 11:24:00 Test Item Value Reference Range Interpretation Comments Creatine Kinase MB (test code = 2.90 0-5.0 97648-7) [facility]entonABDOMEN 2 [id number] 09:26:00 [facility] : 1930 Sex: [place] [address] Patient Name: JUSTICE HARDY MR #: [id number] : 1930 Age/Sex: 89/M Req #: [id number] Adm Physician: ZACHARIAH SAINI MD Ordered by: SHANNAN CERVANTES MD Report #: [id number] Location: MED/SURG Room/Bed: [facility] Procedure: [id number] DX/ABDOMEN 2 VIEW Exam Date: 09/13/20 Exam [...] Lactic 0.7 0.5-2.0 Acid Level) [facility]entonFluoroscopic procedure less than one hour [id number] 19:02:00 Test Item Value Reference Range Interpretation Comments Coronavirus (PCR) (test code = NOT DETECTED NOTDETECTED Coronavirus (PCR)) [facility]CT ABD/PEL WO [id number] 17:30:00[facility] : 1930 Sex: M [facility] [address] [place] [address] Patient Name: JUSTICE HARDY MR #: [id number] : 1930 Age/Sex: 89/M Req #: [id number] Adm Physician: Ordered by: SHANNAN CERVANTES MD Report #: [id number] Location: [facility] Room/Bed: Procedure: [id number] HOPD/CT ABD/PEL WO CONTRAST-HOPD Exam Date: 09/12/20 Exam Time: 1657 REPORT STATUS: Signed EXAM: CT Abdomen and Pelvis WITHOUT contrast INDICATION: abd pain, nausea, retching [id number] COMPARISON: CT abdomen and pelvis on [...] 09/12/201744 COPY TO: SHANNAN CERVANTES MDCT ABDOMEN/PELVIS [id number] 15:20:00 [place] [address] [place] [address] Patient Name: JUSTICE HARDY MR #: [id number] : 1930 Age/Sex: 89/M Req #: [id number] Adm Physician: Or oliver by: JEANNINE SAINI MD Report #: [id number] Location: CT Room/Bed: Procedure: [id number] CT/CT ABDOMEN/PELVISWO Exam Date: 03/02/20 Exam Time: [...]
[2021-10-17] MEDS ORDERED: ACETAMINOPHEN 500 MG TAB ONE (01:58)
[2021-10-17 03:23] LABS: Absolute Lymphocytes (CBC) 1.3 K/uL (0.7-4.9); Hematocrit 31.9 % (39.6-49.0); Lymphocytes % 16.5 % (15.3-44.8); MPV 7.9 fL (7.6-11.3); RBC Red Blood Cell Count 3.84 M/uL (4.33-5.43)
[2021-10-17 03:26] LABS: Potassium 3.9 mmol/L (3.5-5.1)
[2021-10-17 04:01] LABS: Protime INR 1.21
[2021-10-17] MEDS ORDERED: MORPHINE 2 MG/ML SYR ONE (05:08)
[2021-10-17] MEDS ORDERED: ONDANSETRON 4 MG/2 ML VIAL ONE (05:09)
--- NOTE | 2021-10-17 06:01 | EDPHYS ---
Physician Documentation [facility] Name: Benito Castaenda Age: 89 yrs Sex: Male : 1930 Arrival Date: 10/17/2021 Time: 01:18 Bed 20 Private MD: ED Physician Kody Neely HPI: 10/17 01:45 This 89 yrs old Male presents to ER via EMS with complaints of Fall Injury. [facility] 01:45 Details of fall: The patient fell from a supine position, out of bed, and struck a tile 7 surface. Onset: The symptoms/episode began/occurred today. 01:45 Associated injuries: The patient sustained injury to the low back, pain, left hip, mh7 painful injury. Severity of symptoms: At their worst the symptoms were moderate, earlier today, in the emergency department the symptoms have improved, moderately. Historical: - Allergies: 01:30 Benadryl; lp1 01:30 Cardura; lp1 01:30 Iodine; (fine with benadryl); lp1 01:30 Lipitor; lp1 01:30 doxazosin; lp1 01:30 SULFUR, ELEMENTAL; lp1 - Home Meds: 04:27 Eliquis oral [Active]; Aspirin Oral [Active]; tamsulosin oral [Active]; finasteride ag7 oral [Active]; Lisinopril Oral [Active]; Albuterol Inhl [Active]; brio ellipta [Active]; Famotidine Oral [Active]; ergocalciferol (vitamin D2) oral [Active]; Tramadol Oral [Active]; Melatonin Oral [Active]; Lorazepam Oral [Active]; Trazodone Oral [Active]; - PMHx: 01:30 aortic valve replacement; cardiac stents; CVA; Diverticulitis; 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 - Social history:: Smoking status: Patient denies any tobacco usage or history of. - Immunization history: Last tetanus immunization: unknown. ROS: 01:45 Constitutional: Negative for fever, chills, and weight loss, Eyes: Negative for injury, mh7 pain, redness, and discharge, ENT: Negative for injury, pain, and discharge, Neck: Negative for injury, pain, and swelling, Cardiovascular: Negative for chest pain, palpitations, and edema, Respiratory: Negative for shortness of breath, cough, wheezing, and pleuritic chest pain, Abdomen/GI: Negative for abdominal pain, nausea, vomiting, diarrhea, and constipation, : Negative for injury, bleeding, discharge, and swelling, Skin: Negative for injury, rash, and discoloration, Neuro: Negative for headache, weakness, numbness, tingling, and seizure, Psych: Negative for depression, anxiety, suicide ideation, homicidal ideation, and hallucinations, Allergy/Immunology: Negative for hives, rash, and allergies, Endocrine: Negative for neck swelling, polydipsia, polyuria, polyphagia, and marked weight changes, Hematologic/Lymphatic: Negative for swollen nodes, abnormal bleeding, and unusual bruising. Exam: 01:45 Constitutional: This is a well developed, well nourished patient who is awake, alert, mh7 and in no acute distress. Head/Face: Normocephalic, atraumatic. Eyes: Pupils equal round and reactive to light, extra-ocular motions intact. Lids and lashes normal. Conjunctiva and sclera are non-icteric and not injected. Cornea within normal limits. Periorbital areas with no swelling, redness, or edema. Neck: Trachea midline, no thyromegaly or masses palpated, and no cervical lymphadenopathy. Supple, full range of motion without nuchal rigidity, or vertebral point tenderness. No Meningismus. Chest/axilla: Normal chest wall appearance and motion. Nontender with no deformity. No lesions are appreciated. Cardiovascular: Regular rate and rhythm with a normal S1 and S2. No gallops, murmurs, or rubs. Normal PMI, no JVD. No pulse deficits. Respiratory: Lungs have equal breath sounds bilaterally, clear to auscultation and percussion. No rales, rhonchi or wheezes noted. No increased work of breathing, no retractions or nasal flaring. Abdomen/GI: Soft, non-tender, with normal bowel sounds. No distension or tympany. No guarding or rebound. No evidence of tenderness throughout. 01:45 Skin: Warm, dry with normal turgor. Normal color with no rashes, no lesions, and no evidence of cellulitis. MS/ Extremity: Pulses equal, no cyanosis. Neurovascular intact. Full, normal range of motion. Neuro: Awake and alert, GCS 15, oriented to person, place, time, and situation. Cranial nerves II-XII grossly intact. Motor strength 5/5 in all extremities. Sensory grossly intact. Cerebellar exam normal. Normal gait. Psych: Awake, alert, with orientation to person, place and time. Behavior, mood, and affect are within normal limits. 01:45 Back: pain, that is mild, of the lumbar area, ROM is painful, with all movement, normal spinal alignment noted, CVA tenderness, is absent, vertebral tenderness, is not appreciated, muscle spasm, Straight leg raises: of both lower extremities does not illicit pain. Vital Signs: 01:29 BP 164 / 80; Pulse 84; Resp 20; Temp 97.9(O); Pulse Ox 97% on R/A; Weight 61.23 kg (R); lp1 Height 5 ft. 4 in. (162.56 cm); 01:30 BP 172 / 84; Pulse 76; Resp 19 S; Pulse Ox 96% on R/A; Pain 7/10; ag7 02:15 BP 199 / 77; Pulse 82; Resp 21; Pulse Ox 95% on R/A; Pain 0/10; ag7 03:40 BP 167 / 72; Pulse 81; Pulse Ox 96% ; ag7 03:45 BP 132 / 67; Pulse 78; Pulse Ox 93% ; Pain 3/10; ag7 05:15 BP 158 / 62; Pulse 77; Resp 16 S; Pulse Ox 93% on R/A; Pain 7/10; ag7 06:00 BP 114 / 61; Pulse 67; Resp 16 S; Pulse Ox 94% on R/A; Pain 3/10; ag7 01:29 Body Mass Index 23.17 (61.23 kg, 162.56 cm) lp1 Hawa Coma Score: 01:33 Eye Response: spontaneous(4). Verbal Response: oriented(5). Motor Response: obeys ag7 commands(6). Total: 15. Trauma Score (Adult): 01:29 Eye Response: spontaneous(1); Verbal Response: oriented(1); Motor Response: obeys lp1 commands(2); Systolic BP: > 89 mm Hg(4); Respiratory Rate: 10 to 29 per min(4); Bowman Score: 15; Trauma Score: 12 MDM: 05:56 Differential diagnosis: abrasion, closed head injury, contusion, fracture, sprain. Data [facility] reviewed: vital signs, nurses notes, lab test result(s), CBC, electrolytes, urinalysis, radiologic studies, CT scan, plain films. Data interpreted: Pulse oximetry: on room air is 96 %. Interpretation: normal. Counseling: I had a detailed discussion with the patient and/or guardian regarding: the historical points, exam findings, and any diagnostic results supporting the discharge/admit diagnosis, the presence of at least one elevated blood pressure reading (>120/80) during this emergency department visit, lab results, radiology results, the need for outpatient follow up, a neurosurgeon, a orthopedic surgeon. Response to treatment: the patient's symptoms have markedly improved after treatment. 06:00 Patient medically screened. [facility] 10/17 01:42 Order name: Type And Screen [facility] 10/17 03:53 Order name: CBC with Automated Diff; Complete Time: 04:03 [facility] 10/17 01:42 Order name: CT Traumagram (Head C Spine CAP wo con); Complete Time: 16:46 [facility] 10/17 01:42 Order name: Hip Left 2 View XRAY; Complete Time: 16:46 [facility] 10/17 01:42 Order name: Pelvis XRAY; Complete Time: 16:46 [facility] 10/17 03:53 Order name: Basic Metabolic Panel; Complete Time: 04:03 [facility] 10/17 03:53 Order name: Protime (+INR); Complete Time: 04:03 [facility] 10/17 03:53 Order name: PTT, Activated Partial Thromb; Complete Time: 04:03 [facility] 10/17 03:53 Order name: Type and Screen; Complete Time: 04:57 [facility] 10/17 01:42 Order name: Labs collected and sent; Complete Time: 01:58 [facility] Administered Medications: 01:57 Drug: Tylenol 1000 mg Route: PO; ag7 02:30 Follow up: Response: No adverse reaction; Marked relief of symptoms [facility] 05:13 Drug: Zofran (Ondansetron) 4 mg Route: IVP; Site: right antecubital; ag7 05:47 Follow up: Response: No adverse reaction; Marked relief of symptoms 7 05:14 Drug: morphine 2 mg Route: IVP; Site: right antecubital; ag7 05:47 Follow up: Response: No adverse reaction; Pain is decreased ag7 Disposition Summary: 10/17/21 06:00 Discharge Ordered Location: Home [facility] Problem: new [facility] Symptoms: have improved [facility] Condition: Stable [facility] Diagnosis - Wedge compression fracture of unspecified thoracic vertebra [facility] - Fall from bed, initial encounter [facility] Followup: [facility] - With: Private Physician - When: 1 - 2 days - Reason: Worsening of condition, Recheck today's complaints, Continuance of care, Re-evaluation by your physician Followup: [facility] - With: Donaldo Granados MD - When: 1 - 2 days - Reason: Worsening of condition, Recheck today's complaints Followup: [facility] - With: Jeffy Quintero MD - When: 1 - 2 days - Reason: Worsening of condition, Recheck today's complaints Discharge Instructions: - Discharge Summary Sheet [facility] - Fall Prevention in the Home, Adult, Jyde-gf-Acnb [facility] - Thoracic Spine Fracture, Tzyj-am-Sxkh [facility] Forms: - Medication Reconciliation Form [facility] - Thank You Letter [facility] - Antibiotic Education [facility] - Prescription Opioid Use [facility] Signatures: Dispatcher [employer] EDMS Fransisca Scott, RN BERYL bb Dominique Alba RN RN lp1 Perico Conde, FISH EGG PACKER-C FISH EGG PACKER-Cla1 Kody Neely MD MD [facility] Katelynn Chandler RN RN 7 Corrections: (The following items were deleted from the chart) 04:03 03:54 BASIC METABOLIC PANEL+C.LAB.BRZ ordered. EDMS EDMS 04:03 03:54 CBC+H.LAB.BRZ ordered. EDMS EDMS 04:03 03:54 PROTIME (+INR)+COAG.LAB.BRZ ordered. EDMS EDMS 04:03 03:54 PTT, ACTIVATED+COAG.LAB.BRZ ordered. EDMS EDMS
--- NOTE | 2021-10-17 06:01 | ER ---
Nurse's Notes [facility] Name: Benito Castaneda Age: 89 yrs Sex: Male : 1930 Arrival Date: 10/17/2021 Time: 01:18 Bed 20 Private MD: Diagnosis: Wedge compression fracture of unspecified thoracic vertebra;Fall from bed, initial encounter Presentation: 10/17 01:26 Chief complaint: EMS states: Called for patient found on floor near bed by [facility]; Patient reports pain to left hip, left lateral chest, neck and back; Low height of bed per EMS; patient states "I fell off the bed and couldn't get back up. Care prior to arrival: None. Mechanism of Injury: Fall out of bed. Trauma event details: Injury occurred in the [facility], Injury occurred: in a public building. Injury occurred: October 17, 2021 Injury occurred at: 00:30. 01:26 Acuity: ANT 2 lp1 01:26 Method Of Arrival: EMS: [facility] lp1 01:29 Coronavirus screen: At this time, the client does not indicate any symptoms associated lp1 with coronavirus-19. Ebola Screen: No symptoms or risks identified at this time. Initial Sepsis Screen: Does the patient meet any 2 criteria? No. Patient's initial sepsis screen is negative. Does the patient have a suspected source of infection? No. Patient's initial sepsis screen is negative. Risk Assessment: Do you want to hurt yourself or someone else? Patient reports no desire to harm self or others. Onset of symptoms was October 17, 2021. Transition of care: patient was received from another setting of care (long-term care facility), [facility]. Historical: - Allergies: 01:30 Benadryl; lp1 01:30 Cardura; lp1 01:30 Iodine; (fine with benadryl); lp1 01:30 Lipitor; lp1 01:30 doxazosin; lp1 01:30 SULFUR, ELEMENTAL; lp1 - Home Meds: 04:27 Eliquis oral [Active]; Aspirin Oral [Active]; tamsulosin oral [Active]; finasteride ag7 oral [Active]; Lisinopril Oral [Active]; Albuterol Inhl [Active]; brio ellipta [Active]; Famotidine Oral [Active]; ergocalciferol (vitamin D2) oral [Active]; Tramadol Oral [Active]; Melatonin Oral [Active]; Lorazepam Oral [Active]; Trazodone Oral [Active]; - PMHx: 01:30 aortic valve replacement; cardiac stents; CVA; Diverticulitis; 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 - Social history:: Smoking status: Patient denies any tobacco usage or history of. - Immunization history: Last tetanus immunization: unknown. Screenin:32 Abuse screen: Denies threats or abuse. Nutritional screening: No deficits noted. ag7 Tuberculosis screening: No symptoms or risk factors identified. Fall Risk Fall in past 12 months (25 points). Secondary diagnosis (15 points) impaired mobility, No IV (0 pts). Ambulatory Aid- None/Bed Rest/Nurse Assist (0 pts). Gait- Impaired (20 pts.). Mental Status- Oriented to own ability (0 pts). Total Brady Fall Scale indicates High Risk Score (45 or more points). Fall prevention measures have been instituted. Side Rails Up X 2 Placed Close to Nursing Station Frequent Obs/Assessments Occuring As available patient and family educated on Fall Prevention Program and Strategies. Primary Survey: 01:28 NO uncontrolled hemorrhage observed. A: The patient is alert. Airway: patent, No lp1 supplemental oxygen in use on arrival. Breathing/Chest: Respiratory effort: spontaneous, unlabored, Chest inspection: symmetrical rise and fall of the chest. Circulation: Skin color: pink, Skin temperature: warm, dry. Disability Alert. Exposure/Environment: All clothing and personal items were removed. 01:36 Reassessment Breathing/Chest Respiratory pattern Regular Respiratory effort Spontaneous ag7 Unlabored Breath sounds Clear. Assessment: 01:28 General: Appears in no apparent distress. Behavior is calm, cooperative, appropriate ag7 for age, Smells of. Pain: Complains of pain in occipital area Pain does not radiate. Pain currently is 7 out of 10 on a pain scale. Quality of pain is described as aching, Pain began suddenly, Is continuous. Neuro: Level of Consciousness is awake, alert, obeys commands, Oriented to person, place, situation, Appropriate for age Lapidary Apprentice are equal bilaterally Moves all extremities. Weakness Cardiovascular: Heart tones S1 S2 present Capillary refill < 3 seconds in bilateral fingers Patient's skin is warm and dry. Respiratory: Airway is patent Trachea midline Respiratory effort is even, unlabored, Respiratory pattern is regular, symmetrical, Breath sounds are clear bilaterally. Derm: abrasion size of a dime noted to right elbow. Musculoskeletal: Range of motion: limited in all extremities, Reports Patient state, "He is not sure and do not know if he hit his head and arms when he fell out of the bed". Injury Description: Abrasion sustained to back of right arm. 02:28 Reassessment: Patient and/or family updated on plan of care and expected duration. Pain ag7 level reassessed. Patient is alert, oriented x 3, equal unlabored respirations, skin warm/dry/pink. Patient states feeling better. Patient states symptoms have improved. 03:19 Reassessment: Patient and/or family updated on plan of care and expected duration. Pain ag7 level reassessed. Patient is alert, oriented x 3, equal unlabored respirations, skin warm/dry/pink. c/o pain to hip, generalized pain. 04:48 Reassessment: No changes from previously documented assessment. ag7 05:14 Reassessment: Patient and/or family updated on plan of care and expected duration. Pain ag7 level reassessed. Patient is alert, oriented x 3, equal unlabored respirations, skin warm/dry/pink. Pain: Complains of pain in lumbar area, sacrum and right low back Pain does not radiate. Pain currently is 7 out of 10 on a pain scale. Quality of pain is described as spasm Pain began suddenly, Is continuous, Alleviated by medications, Aggravated by repositioning. 06:23 Reassessment: No changes from previously documented assessment. Report called to Masha huang LVN at [facility] [phone]. Vital Signs: 01:29 BP 164 / 80; Pulse 84; Resp 20; Temp 97.9(O); Pulse Ox 97% on R/A; Weight 61.23 kg (R); lp1 Height 5 ft. 4 in. (162.56 cm); 01:30 BP 172 / 84; Pulse 76; Resp 19 S; Pulse Ox 96% on R/A; Pain 7/10; ag7 02:15 BP 199 / 77; Pulse 82; Resp 21; Pulse Ox 95% on R/A; Pain 0/10; ag7 03:40 BP 167 / 72; Pulse 81; Pulse Ox 96% ; ag7 03:45 BP 132 / 67; Pulse 78; Pulse Ox 93% ; Pain 3/10; ag7 05:15 BP 158 / 62; Pulse 77; Resp 16 S; Pulse Ox 93% on R/A; Pain 7/10; ag7 06:00 BP 114 / 61; Pulse 67; Resp 16 S; Pulse Ox 94% on R/A; Pain 3/10; ag7 01:29 Body Mass Index 23.17 (61.23 kg, 162.56 cm) lp1 Hawa Coma Score: 01:33 Eye Response: spontaneous(4). Verbal Response: oriented(5). Motor Response: obeys ag7 commands(6). Total: 15. Trauma Score (Adult): 01:29 Eye Response: spontaneous(1); Verbal Response: oriented(1); Motor Response: obeys lp1 commands(2); Systolic BP: > 89 mm Hg(4); Respiratory Rate: 10 to 29 per min(4); Hawa Score: 15; Trauma Score: 12 ED Course: 01:18 Patient arrived in ED. bp1 01:28 Triage completed. lp1 01:28 Katelynn Chandler, RN is Primary Nurse. ag7 01:32 Kody Neely MD is Attending Physician. mh7 01:32 Patient maintains SpO2 saturation greater than 95% on room air. Thermoregulation: warm lp1 blanket given to patient. 01:32 Patient has correct armband on for positive identification. Placed in gown. Bed in low lp1 position. Call light in reach. Side rails up X2. shelter monitor on. Pulse ox on. NIBP on. 01:33 No provider procedures requiring assistance completed. ag7 02:21 Inserted saline lock: 22 gauge in right antecubital area, using aseptic technique. vc1 04:24 CT Traumagram (Head C Spine CAP wo con) In Process Unspecified. EDMS 04:44 Hip Left 2 View XRAY In Process Unspecified. EDMS 04:44 Pelvis XRAY In Process Unspecified. EDMS 04:51 Patient none. ag7 05:59 Donaldo Granados MD is Referral Physician. mh7 05:59 Jeffy Quintero MD is Referral Physician. mh7 06:56 IV discontinued, intact, bleeding controlled, No redness/swelling at site. Pressure ag7 dressing applied. Administered Medications: 01:57 Drug: Tylenol 1000 mg Route: PO; ag7 02:30 Follow up: Response: No adverse reaction; Marked relief of symptoms ag7 05:13 Drug: Zofran (Ondansetron) 4 mg Route: IVP; Site: right antecubital; ag7 05:47 Follow up: Response: No adverse reaction; Marked relief of symptoms ag7 05:14 Drug: morphine 2 mg Route: IVP; Site: right antecubital; ag7 05:47 Follow up: Response: No adverse reaction; Pain is decreased ag7 Intake: 04:59 PO: 120ml (Water); Total: 120ml. ag7 Output: 04:59 Urine: 700ml (Voided); Total: 700ml. ag7 Outcome: 04:51 Patient's length of stay was not longer than 2 hours. ag7 06:00 Discharge ordered by MD. [facility] 06:23 Condition: stable ag7 06:23 Discharge instructions given to patient, Instructed on discharge instructions, follow up and referral plans. Demonstrated understanding of instructions, follow-up care. 06:56 [facility]. Report called to Masha PACKAGING LINE ATTENDANT Transfer form completed. ag7 transported by stretcher alert and awake with [facility] 06:57 Patient left the ED. ag7 Signatures: Dispatcher [employer] EDPR Dominique Alba, RN RN lp1 Nita Bush Maurice, MD MD 7 Phoebe Beck RN RN vc1 Katelynn Chandler RN RN ag7 Corrections: (The following items were deleted from the chart) 03:23 03:19 Reassessment: Patient and/or family updated on plan of care and expected ag7 duration. Pain level reassessed. Patient is alert, oriented x 3, equal unlabored respirations, skin warm/dry/pink. Patient denies pain at this time. Patient states feeling better. Patient states symptoms have improved. ag7 06:25 06:23 Reassessment: No changes from previously documented assessment. Report called to reina Flanagan at [facility] [phone] [facility]
--- NOTE | 2021-10-17 11:33 | RAD REPORT ---
EXAM DESCRIPTION: RAD - Hip Left 2 View - 10/17/2021 4:42 am CLINICAL HISTORY: The patient is 89 years old and is Male; FALL TECHNIQUE: Two or three views of the left hip with pelvis when performed. COMPARISON: No relevant prior studies available. FINDINGS: BONES/JOINTS: The femoral head is located. The SI joints and pubic symphysis are intact without evidence of diastases. No acute fracture. No dislocation. SOFT TISSUES: Unremarkable. VASCULATURE: Atherosclerosis of the vasculature is noted. IMPRESSION: No acute findings in the left hip. Electronically signed by: Eunice Baptiste MD 10/17/2021 3:06 AM CDT Due to temporary technical issues with the PACS/Fluency reporting system, reports are being signed by the in house radiologist without review as a courtesy to ensure prompt reporting. The interpreting r adiologist is fully responsible for the content of the report.
--- NOTE | 2021-10-17 11:36 | RAD REPORT ---
EXAM DESCRIPTION: RAD - Pelvis - 10/17/2021 4:42 am CLINICAL HISTORY: FALL TECHNIQUE: Frontal view of the pelvis. COMPARISON: No relevant prior studies available. FINDINGS: Bones/joints: Unremarkable. No acute fracture. No dislocation. Soft tissues: Unremarkable. IMPRESSION: No acute injury. Electronically signed by: Faith Issa MD 10/17/2021 3:08 AM CDT Due to temporary technical issues with the PACS/Fluency reporting system, reports are being signed by the in house radiologist without review as a courtesy to ensure prompt reporting. The interpreting r adiologist is fully responsible for the content of the report.
--- NOTE | 2021-10-17 11:39 | RAD REPORT ---
EXAM DESCRIPTION: CT - Head C Spine Cap Wo Con - 10/17/2021 6:43 am ADDENDUM #1 Urgent finding reported to Dr. Neely at 10/17/2021 4:32 AM CDT Electronically signed by: Finesse Street 10/17/2021 7:02 AM CDT End of Addendum EXAM DESCRIPTION: 1. CT of the head without contrast 2. CT of the cervical spine without contrast. 3. CT of the chest, abdomen, and pelvis without contrast CLINICAL HISTORY: FALL COMPARISON: 07/27/2021 TECHNIQUE: Axial CT of the head obtained from the skull apex to the skull base without contrast. Axi al CT images of the cervical spine obtained from the skull base through the thoracic inlet. Sagittal and coronal reformatted images available. CT of the chest, abdomen and pelvis performed without IV co ntrast. Suboptimal evaluation of the soft tissues, solid organs, and vasculature due to lack of IV co ntrast. This exam was performed according to our departmental dose-optimization program, which includ es automated exposure control, adjustment of the mA and/or kV according to patient size and/or use of iterative reconstruction technique. This exam was performed according to our departmental dose-optim ization program, which includes automated exposure control, adjustment of the mA and/or kV according to patient size and/or use of iterative reconstruction technique. FINDINGS: CT head: No acute intracranial hemorrhage identified. No mass, mass effect, shift of the midline, abnormal ext ra-axial fluid collection or CT evidence of acute ischemic change identified. Mild enlargement of ghada tricular system and sulcal spaces compatible cerebral atrophy. Scattered areas of hypodensity in th e supratentorial white matter are nonspecific and may represent sequela of chronic small vessel ische pauline change. 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 Coarse basal ganglia calcifications. The visualized paranasal sinuses and the mastoids are clear. No skull fracture identified. Visual ized orbits and globes are unremarkable. Cervical CT: Straightening of the cervical lordosis may be secondary to patient positioning. The atlantoaxial, a tlantodental, and occipitoatlantal intervals are preserved. No acute fracture cervical spine. Compr ession fracture of T1 with approximately 15% loss of anterior vertebral body height. No retropulsion of fracture fragments. Prevertebral soft tissues are unremarkable. Mild to moderate multilevel loss of intervertebral disc height. Posterior disc osteophyte complex enc roaches on the anterior spinal canal and neural foramen at C4/5. Endplate spondylosis, facet arthropa thy, and uncovertebral spurring Visualized skull base is intact. No fracture of the visualized facial bones. Visualized mastoid air c ells and paranasal sinuses are well aerated. Visualized thyroid is unremarkable. No cervical lymphadenopathy. No pneumothorax in the visualized lung apices. Atherosclerotic calcification of the carotid arteries. Chest: Thyroid: No abnormalities of the visualized thyroid. Great Vessels: Great vessels have normal anatomic configuration. Thoracic Aorta: Atherosclerotic calcification of thoracic aorta. Pulmonary arteries: The main pulmonary artery is not dilated. Heart: Prior median sternotomy. Coronary artery atherosclerosis. Cardiomegaly. No significant pericar dial effusion. Lymph Nodes: No enlarged mediastinal lymph nodes identified. Esophagus: Small hiatal hernia. Other: No additional findings. Lungs: Respiratory motion artifact. Minimal bilateral dependent atelectasis. No confluent airspace co nsolidation. Pleura: No pleural effusion or pneumothorax. Trachea/Airways: No abnormalities of the visualized trachea or airways. Abdomen: Liver: The liver has normal size and density. Gallbladder: Prior cholecystectomy. Spleen, Pancreas, and Adrenal Glands: The spleen, pancreas, and adrenal glands are unremarkable. Kidneys: No hydronephrosis or obstructing ureteral calculus. Multiple renal cysts. The largest is in the right kidney measuring 5.9 cm within peripheral calcification. Vasculature: Aortoiliac atherosclerosis. IVC filter in place. Stomach: The stomach and duodenum have normal course. Other: No free intraperitoneal air. No free fluid or lymphadenopathy. Pelvis: Bladder: Urinary bladder is unremarkable. Bowel: No dilated loops of large or small bowel. Scattered diverticula colon. Large amount stool. Appendix: Not identified. Pelvis: Small fat-containing bilateral inguinal hernias. Prostate is not enlarged. 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 Multilevel endplate spondylosis and facet art hropathy throughout the visualized thoracic and lumbar spine. IMPRESSION: 1. Acute or subacute compression fracture of T1 with approximately 15% loss of anterio r vertebral body height. No retropulsion of fracture fragments. Correlation for point tenderness at t his location recommended. MRI would provide more complete characterization. 2. No acute intracranial abnormality by CT criteria. 3. No acute fracture or subluxation of the cervical spine. 4. Cardiomegaly with coronary artery atherosclerosis. 5. Large amount of stool. 6. Diverticulosis without evidence of acute diverticulitis. Electronically signed by: Finesse Street 10/17/2021 4:34 AM CDT Due to temporary technical issues with the PACS/Fluency reporting system, reports are being signed by the in house radiologist without review as a courtesy to ensure prompt reporting. The interpreting r adiologist is fully responsible for the content of the report.
[2021-10-17 12:47] VITALS: TEMP 97.9
[2021-10-17 12:57] VITALS: BP 114/61; O2SAT 94
== END 2021-10-17 06:57 | disposition home or self-care (01) ==
LOC: ER 01:09
DX: S22.010A Wedge compression fracture of first thoracic vertebra, initial encounter for closed fracture (principal); W06.XXXA Fall from bed, initial encounter; I10 Essential (primary) hypertension; Z79.82 Long term (current) use of aspirin; Z86.73 Personal history of transient ischemic attack (TIA), and cerebral infarction without residual deficits; Z95.4 Presence of other heart-valve replacement; Z95.818 Presence of other cardiac implants and grafts; Z79.01 Long term (current) use of anticoagulants; Z88.8 Allergy status to other drugs, medicaments and biological substances; Z95.1 Presence of aortocoronary bypass graft; Z85.46 Personal history of malignant neoplasm of prostate
CPT/HCPCS: 85025; 80048; 36415; 86900; 86850; 85610; 86901; 85730; 70450; 71250; 72125; 72170; 73502; 96375; 96374; 99285; J2270; J2405

== ENCOUNTER 2021-10-17 16:48 | Emergency (ER) | payer OTHER, BC ==
--- OUTSIDE RECORDS SUMMARY | 2021-10-17 16:55 | XMS REPORT | Continuity of Care Document ---
:[address] [facility] t Address [address] [place] [address] Care Team Providers Name Role Phone Jaclyn Tate MD Primary Care Physician Justice Guzman Attending Clinician Unavailable Hugo GARCIA, Trav Fernandez. Attending Clinician [phone] Anupam GARCIA, O. Attending Clinician Renee GARCIA Attending Clinician 2030_Biopsy Attending Clinician Unavailable Rebecca Lopez MA Attending Clinician Unavailable Bebeto GARCIA Attending Clinician Fawad GARCIA Attending Clinician Dusty Fowler MD Attending Clinician Ivory DAHL Attending Clinician Unavailable Pob, Lab Main Attending Clinician Unavailable Anthony GARCIA, S Attending Clinician Sherrill CRUZ Attending Clinician Unavailable Doctor Unassigned, Name Attending Clinician Unavailable Attending Clinician Amalia PACMay Attending Clinician Ivory Whaley Attending Clinician Ivory [...] Date Sour ce Number BCBS FED SELECT [id number] 2015 00:00:00 MEDICARE PART A [id number] 1996 \T\ B 00:00:00 [employer] Cross [id number] 2015 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 bowel [facility] - obstructio Patien t n [facility] Nausea Problem Active [facility] Hypomagnes Problem Active [facility] S t. emia [facility] Leukocytos Problem Active [facility] S t. is [facility] Hypertensi Problem [facility] History of Problem Active [facility] arterioscl [facility] - [facility] pain [facility] No known No known Disease Unive rs active active ity of problems problems [facility] Allergies, Adverse Reactions, Alerts Allergy Allergy Status Severity Reaction(s) Onset Inactive Treating Comm ents Source Name Type Date Date Clinician diphenhy DA Active U [facility]KNOWN [facility] dramine 09-05 Clear 00:00: [facility] 00 [facility] atorvast DA Active U [facility] atin 09-05 Clear 00:00: Mir 00 [facility] iodine DA Active U [facility] 09-05 Clear 00:00: Mir 00 [facility] Diphenhy Propensi Active Itching Pt states [...] Atorvast Propensi Active Other (See Unknown [facility] atin ty to Comments) 11-30 reaction, st adverse 00:00: patient Hospita reaction daughter l s to confirmed drug allergy with patients cardiolog ist. Iodine Allergy Active [facility]anc 00:00: Patient e 00 s [facility] Doxazosi Allergy Active 2018-[address] [facility] to 2 [facility]: Patient e 00 [facility] CARDURA DA Active U FAINTING; 2001- [facility] LOW B/P 6- Clear 00:00: Mir 00 [facility] No Known DA Active U 2001- [facility] Contrast - Clear Allergie 00:00: Mir s [facility] No Known DA Active U 2001-0 [facility] Food - Clear Allergie 00:00: Mir s 00 [facility] No Known DA Active U 2001-0 [facility] Other 6 Clear Allergie 00:00: Mir s [facility] NO KNOWN Drug Active Univers ALLERGIE Class ity of S [facility] doxazosi DA Active [facility] iodine DA Active [facility] Family History Family Member Diagnosis Comments Start Date Stop Date Source Natural brother [facility] Natural father Heart disease [facility] Natural father Hy[facility]ension [facility] Natural mother Alzheimer's disease [facility] Natural sister Other [facility] Social History Social Habit Start Date Stop Date Quantity Comments Source Exposure to Not sure [facility] SARS-CoV-2 (event) [facility] History of tobacco Smoker [facility] use Hospital History SDOH [facility] Alcohol Frequency Hospita l History SDOH [facility] Alcohol Std Drinks Hospit al History SDOH [facility] Alcohol intake 2021-01-10 2021-01-10 Current University of 00:00:00 00:00:00 non-drinker of [facility] alcohol (finding) Branch Tobacco use and 2021-01-10 2021-01-10 Never used Universit y of exposure 00:00:00 00:00:00 [facility] Alcohol Comment 2017-12-10 2017-12-10 ocassional [facility] 00:[facility]00 [facility] Cigarettes smoked 2017-08-07 2017-08-[address] current (pack per 00:00:00 00:00:00 Hospita l day) - Reported Cigarette 2017-08-07 2017-08-07 [facility] pack-years 00:00:00 00:00:00 Hospital Sex Ass[birth year] At [birth year] Universit y of 00:00:00 00:00:00 [facility] Smoking Status Start Date Stop Date Source Never smoker [facility] Ex-smoker 2017-08-07 00:00:00 2017-08-07 00:00:00 [facility] Medications Ordered Filled Start Stop Current Ordering Indication Dosage Frequency Signature Comments Components Source Medication Medication Date Date Medication? Clinician (SIG) Name Name ergocalcife 2021- No [id number] Q7D Take 1 M ethodi rol 07-16 [...] 12:51: nightly. Hospita tablet 23 l aspirin 2021-0 Yes 81mg QD Take 81 mg Meth marcella (ECOTRIN) 1-[address] 81 MG 12:51: daily. Hospita enteric 23 l coated tablet albuterol 2021-0 2021- No 2{puff} Q.25D Inhale 2 Method[facility] (PROAIR 1-14 02-[address] HFA) 90 00:00: 05:59 every 4 Hospit a mcg/actuati 00 :00 (four) l on inhaler hours while awake for 30 days. famotidine 2021-0 2021- No 20mg Q.5D Take 1 Meth [...] to 30 days. isosorbide 2020-06 No 20mg [id number] Take 1 [facility] dinitrate 0-25 11-25 [id number] tablet (20 st (ISORDIL) 00:00: 05:59 3D [...] up to 3 days. ergocalcife 2020- No [id number] Q7D Take 1 M ethodi rol 02-27 [...] Branch suspension 0315, (COMPOUNDED Routine ) cloNIDine 2020-2020- No .1mg 0.1 mg, Univ ers (CATAPRES) - 07-20 Oral, ity of tablet 0.1 07:15: 06:15 ONCE, 1 Flash as mg 00 :00 dose, Tue Medical 01/16/21 at Branch 0215, STAT cloNIDine 2020-2020- No .1mg 0.1 mg, Univ ers (CATAPRES) 01-16 07-20 Oral, ity of tablet 0.1 05:45: 04:45 ONCE, 1 Flash as mg 00 :00 dose, [facility] 01/16/21 at Branch 0045, STAT amLODIPine Yes 10mg Take 10 mg U nivers 10 mg 7-02 by mouth ity of tablet 18:08: daily. [address] Branch aspirin 325 0 Yes 325mg [...] 7-02 by mouth ity of 18:08: at [place] [address] bedtime. Medical Branch cloNIDine Yes .1mg Take 0.1 Univ ers 0.1 mg 7-02 mg by ity of tablet 18:08: mouth 3 [place] [address] (three) Medical times Branch daily. apixaban Yes 2.5mg Take 2.5 Univ ers (ELIQUIS) 7-02 mg by ity of 2.5 mg 18:08: mouth 2 [facility] 23 (two) Medical times Branch daily. omeprazole Yes 40mg Take 40 mg U nivers 40 mg 7-02 by mouth ity of capsule 18:08: daily. [address] Branch lisinopriL 0 Yes 5mg Take 5 mg Un alma 5 mg tablet 7-02 by mouth ity of 18:08: daily. [address] Branch finasteride Yes 5mg Take 5 mg U nivers 5 mg tablet 7-02 by mouth ity of 18:08: daily. [address] Branch amLODIPine Yes 10mg Take 10 mg U nivers 10 mg 7-02 by mouth ity of tablet 18:08: daily. [address] Branch aspirin 325 0 Yes 325mg Take 325 U nivers mg tablet 7-02 mg by ity of 18:08: mouth [place] 23 daily. Medical Branch valsartan-h Yes 1{tbl} Take 1 Un alma ydrochlorot 7-02 tablet by ity of hiazide 18:08: mouth [place] 160-12.5 mg 23 daily. Medica l per tablet Branch eszopiclone Yes 3mg Take 3 mg U nivers 3 mg tablet 7-02 by mouth ity of 18:08: at [place] 23 bedtime. Medical Branch cloNIDine Yes .1mg Take 0.1 Univ ers 0.1 mg 7-02 mg by ity of tablet 18:08: mouth 3 [place] 23 (three) Medical times Branch daily. apixaban Yes 2.5mg Take 2.5 Univ ers (ELIQUIS) 7-02 mg by ity of 2.5 mg 18:08: mouth 2 [facility] 23 (two) Medical times Branch daily. omeprazole Yes 40mg Take 40 mg U nivers 40 mg 7-02 by mouth ity of capsule 18:08: daily. [place] [address] Medical Branch lisinopriL Yes 5mg Take 5 mg Un alma 5 mg tablet 7-02 by mouth ity of 18:08: daily. [place] [address] Medical Branch finasteride Yes 5mg Take 5 mg U nivers 5 mg tablet 7-02 by mouth ity of 18:08: daily. [place] [address] Medical Branch amLODIPine Yes 10mg Take 10 mg U nivers 10 mg 7-02 by mouth ity of tablet 18:08: daily. [place] [address] Medical Branch aspirin 325 Yes 325mg Take [...] 7-02 by mouth ity of 18:08: at [place] 23 bedtime. Medical Branch cloNIDine Yes .1mg [...] by mouth ity of capsule 18:08: daily. [place] [address] Medical Branch lisinopriL 0 Yes 5mg Take 5 mg Un alma 5 mg tablet 7-02 by mouth ity of 18:08: daily. [address] Branch finasteride Yes 5mg Take 5 mg U nivers 5 mg tablet 7-02 by mouth ity of 18:08: daily. [place] [address] Medical Branch amLODIPine Yes 10mg Take 10 mg U nivers 10 mg 7-02 by mouth ity of tablet 18:08: daily. [place] [address] Medical Branch aspirin 325 Yes 325mg Take 325 U nivers mg tablet 7-02 mg by ity of 18:08: mouth [place] 23 daily. Medical Branch valsartan-h Yes 1{tbl} Take 1 Un alma ydrochlorot 7-02 tablet by ity of hiazide 18:08: mouth [place] 160-12.5 mg 23 daily. Medica l per tablet Branch eszopiclone Yes 3mg Take 3 mg U nivers 3 mg tablet 7-02 by mouth ity of 18:08: at [place] [address] bedtime. Medical Branch cloNIDine Yes .1mg Take 0.1 Univ ers 0.1 mg 7-02 mg by ity of tablet 18:08: mouth 3 [place] 23 (three) Medical times Branch daily. apixaban Yes 2.5mg Take 2.5 Univ ers (ELIQUIS) 7-02 mg by ity of 2.5 mg 18:08: mouth 2 [place] tablet 23 (two) Medical times Branch daily. omeprazole Yes 40mg Take 40 mg U nivers 40 mg 7-02 by mouth ity of capsule 18:08: daily. [place] [address] Medical Branch lisinopriL 0 Yes 5mg Take 5 mg Un alma 5 mg tablet 7-02 by mouth ity of 18:08: daily. [place] 23 Medical Branch finasteride Yes 5mg Take 5 mg U nivers 5 mg tablet 7-02 by mouth ity of 18:08: daily. [place] [address] Medical Branch amLODIPine Yes 10mg Take 10 mg U nivers 10 mg 7-02 by mouth ity of tablet 18:08: daily. [place] [address] Medical Branch aspirin 325 Yes 325mg Take [...] 7-02 by mouth ity of 18:08: at [place] [address] bedtime. Medical Branch cloNIDine Yes .1mg Take 0.1 Univ ers 0.1 mg 7-02 mg by ity of tablet 18:08: mouth 3 [place] [address] (three) Medical times Branch daily. apixaban Yes 2.5mg Take 2.5 Univ ers (ELIQUIS) 7-02 mg by ity of 2.5 mg 18:08: mouth 2 [facility] 23 (two) Medical times Branch daily. omeprazole Yes 40mg Take 40 mg U nivers 40 mg 7-02 by mouth ity of capsule 18:08: daily. [place] [address] Medical Branch lisinopriL Yes 5mg Take 5 mg Un alma 5 mg tablet 7-02 by mouth ity of 18:08: daily. [place] [address] Medical Branch finasteride Yes 5mg Take 5 mg U nivers 5 mg tablet 7-02 by mouth ity of 18:08: daily. [place] [address] Medical Branch amLODIPine Yes 10mg Take 10 mg U nivers 10 mg 7-02 by mouth ity of tablet 18:08: daily. [place] [address] Medical Branch aspirin 325 Yes 325mg Take 325 U nivers mg tablet 7-02 mg by ity of 18:08: mouth [place] 23 daily. Medical Branch valsartan-h Yes 1{tbl} Take 1 Un alma ydrochlorot 7-02 tablet by ity of hiazide 18:08: mouth [place] 160-12.5 mg 23 daily. Medica l per tablet Branch eszopiclone Yes 3mg Take 3 mg U nivers 3 mg tablet 7-02 by mouth ity of 18:08: at [place] 23 bedtime. Medical Branch cloNIDine Yes .1mg Take 0.1 Univ ers 0.1 mg 7-02 mg by ity of tablet 18:08: mouth 3 [place] 23 (three) Medical times Branch daily. apixaban Yes 2.5mg Take 2.5 Univ ers (ELIQUIS) 7-02 mg by ity of 2.5 mg 18:08: mouth 2 [facility] 23 (two) Medical times Branch daily. omeprazole Yes 40mg Take 40 mg U nivers 40 mg 7-02 by mouth ity of capsule 18:08: daily. [place] [address] Medical Branch lisinopriL Yes 5mg Take 5 mg Un alma 5 mg tablet 7-02 by mouth ity of 18:08: daily. [place] [address] Medical Branch finasteride Yes 5mg Take 5 mg U nivers 5 mg tablet 7-02 by mouth ity of 18:08: daily. [place] [address] Medical Branch amLODIPine Yes 10mg Take 10 mg U nivers 10 mg 7-02 by mouth ity of tablet 18:08: daily. [place] [address] Medical Branch aspirin 325 Yes 325mg Take [...] 7-02 by mouth ity of 18:08: at [place] 23 bedtime. Medical Branch cloNIDine Yes .1mg [...] by mouth ity of capsule 18:08: daily. [place] [address] Medical Branch lisinopriL 0 Yes 5mg Take 5 mg Un alma 5 mg tablet 7-02 by mouth ity of 18:08: daily. [address] Branch finasteride Yes 5mg Take 5 mg U nivers 5 mg tablet 7-02 by mouth ity of 18:08: daily. [place] [address] Medical Branch amLODIPine Yes 10mg Take 10 mg U nivers 10 mg 7-02 by mouth ity of tablet 18:08: daily. [place] [address] Medical Branch aspirin 325 Yes 325mg Take 325 U nivers mg tablet 7-02 mg by ity of 18:08: mouth [place] 23 daily. Medical Branch valsartan-h Yes 1{tbl} Take 1 Un alma ydrochlorot 7-02 tablet by ity of hiazide 18:08: mouth [place] 160-12.5 mg 23 daily. Medica l per tablet Branch eszopiclone Yes 3mg Take 3 mg U nivers 3 mg tablet 7-02 by mouth ity of 18:08: at [place] [address] bedtime. Medical Branch cloNIDine Yes .1mg Take 0.1 Univ ers 0.1 mg 7-02 mg by ity of tablet 18:08: mouth 3 [place] 23 (three) Medical times Branch daily. apixaban Yes 2.5mg Take 2.5 Univ ers (ELIQUIS) 7-02 mg by ity of 2.5 mg 18:08: mouth 2 [place] tablet 23 (two) Medical times Branch daily. omeprazole Yes 40mg Take 40 mg U nivers 40 mg 7-02 by mouth ity of capsule 18:08: daily. [place] [address] Medical Branch lisinopriL 0 Yes 5mg Take 5 mg Un alma 5 mg tablet 7-02 by mouth ity of 18:08: daily. [address] finasteride Yes 5mg Take 5 mg U nivers 5 mg tablet 12-29 by mouth ity of 18:08: daily. [address] Dutasteride Yes Take by Un alma -Tamsulosin 12-29 mouth. ity of 0.5-0.4 mg 18:08: [address] Branch Dutasteride Yes Take by Un alma -Tamsulosin 12-29 mouth. ity of 0.5-0.4 mg 18:08: [address] Branch Dutasteride Yes Take by Un alma -Tamsulosin 12-29 mouth. ity of 0.5-0.4 mg 18:08: [address] Branch Dutasteride Yes Take by Un alma -Tamsulosin 12-29 mouth. ity of 0.5-0.4 mg 18:08: [address] Branch Dutasteride Yes Take by Un alma -Tamsulosin 12-29 mouth. ity of 0.5-0.4 mg 18:08: [address] Dutasteride Yes Take by Un alma -Tamsulosin 12-29 mouth. ity of 0.5-0.4 mg 18:08: [address] Branch Dutasteride Yes Take by Un alma -Tamsulosin 12-29 mouth. ity of 0.5-0.4 mg 18:08: [address] Branch Dutasteride Yes Take by Un alma -Tamsulosin 12-29 mouth. ity of 0.5-0.4 mg 18:08: [address] tamsulosin 2020- No .4mg QD Take 0.4 Me thodi (FLOMAX) 12-04-[address] 0.4 mg 15:23: 00:00 [...] mouth daily [place] 4 [place] [id number] 50mg Q6H Take 50 mg M ethodi [...] QD 5 mg every Methodi (NORVASC) 5 -02 02-[address] mg tablet 00:00: 00:00 Hospita [...] 7-19 by mouth ity of 18:24: at [place] [address] bedtime. Medical Branch amLODIPine Yes 10mg Take 10 mg U nivers 10 mg 7-19 by mouth ity of tablet 18:24: daily. [place] [address] Medical Branch aspirin 325 Yes 325mg Take [...] 7-19 by mouth ity of 18:24: at [place] [address] bedtime. Medical Branch Amlodipine Amlodipine Yes [address] [facility] Patient s [facility] Aspirin Aspirin Yes Daily [facility] (Aspir 81) (Aspir 81) Tal es - 81 Mg 81 Mg Patient TABLET.DR SHIPLEY.DR lino [facility] Hydrochloro Hydrochloro Yes 12.[address] thiazide thiazide [facility] - (Hydrochlor (Hydrochlor P atient othiazide*) othiazide*) s 25 Mg 25 Mg Medical TABLET TABLET Center Tamsulosin Tamsulosin Yes .[address] Hcl Hcl [facility] - (Flomax*) (Flomax*) Patie nt 0.4 Mg CAP 0.4 Mg CAP [facility] Immunizations Ordered Immunization Filled Immunization Date Status Commen ts Source Name Name FLUZONE HIGH-DOSE PF 2021-04-23 Completed Meth odist 00:00:00 Hospital Vital Signs Vital Name Observation Time Observation Value Comments Source Systolic blood 2021-01-16 07:00:00 187 mm[Hg] Univer sity of pressure [facility] Diastolic blood 2021-01-16 07:00:00 90 mm[Hg] Unive rsity of pressure [facility] Heart rate 2021-01-16 07:00:00 76 /min [facility] Respiratory rate 2021-01-16 07:00:00 20 /min [facility] O[facility] saturation in 2021-01-16 07:00:00 97 /min [facility] Arterial blood by [facility] Pulse oximetry Branch Body temperature 2021-01-16 04:24:00 37.06 Ayana [facility] [place] [facility] Body weight 2021-01-16 04:24:00 58.968 kg [facility] [place] [facility] BMI 2021-01-16 04:24:00 22.31 kg/m2 [facility] [place] [facility] Systolic blood 2021-01-11 02:55:00 175 mm[Hg] Univer sity of pressure [place] [facility] Diastolic blood 2021-01-11 02:55:00 85 mm[Hg] Unive rsity of pressure [place] [facility] Heart rate 2021-01-11 02:55:00 73 /min [facility] [place] [facility] Respiratory rate 2021-01-11 02:55:00 16 /min [facility] [place] [facility] Oxygen saturation in 2021-01-11 02:55:00 96 /min University of Arterial blood by [place] [employer] [facility] Pulse oximetry Branch Body temperature 2021-01-10 23:48:00 37.22 Ayana [facility] [place] [facility] Body weight 2021-01-10 23:48:00 58.968 kg [facility] [place] [facility] BMI 2021-01-10 23:48:00 22.31 kg/m2 [facility] [place] [facility] Systolic blood 2020-12-29 18:08:00 132 mm[Hg] Univer sity of pressure [place] [facility] Diastolic blood 2020-12-29 18:08:00 65 mm[Hg] Unive rsity of pressure [place] [facility] Heart rate 2020-12-29 18:03:00 65 /min [facility] [place] [facility] Body temperature 2020-12-29 18:03:00 36.44 Ayana [facility] [place] [facility] Respiratory rate 2020-12-29 18:03:00 16 /min [facility] [place] [facility] Body height 2020-12-29 18:03:00 162.6 cm [facility] [place] [facility] Body weight 2020-12-29 18:03:00 59.013 kg [facility] [place] [facility] BMI 2020-12-29 18:03:00 22.33 kg/m2 [facility] [place] [facility] Oxygen saturation in 2020-12-29 18:03:00 98 /min University of Arterial blood by [facility] Pulse oximetry Branch Systolic blood 2020-12-29 18:08:00 132 mm[Hg] Univer sity of pressure [facility] Diastolic blood 2020-12-29 18:08:00 65 mm[Hg] Unive rsity of pressure [facility] Heart rate 2020-12-29 18:03:00 65 /min [facility]i [facility] Body temperature 2020-12-29 18:03:[address] [facility] Respiratory rate 2020-12-29 18:03:00 16 /min [facility] Body height 2020-12-29 18:03:[address] [facility] Body weight 2020-12-29 18:03:00 [facility] 2020-12-29 18:03:00 22.33 kg/m2 [facility] Oxygen saturation in 2020-12-29 18:03:00 98 /min [facility] Arterial blood by [facility] Pulse oximetry Branch Oxygen saturation in 2021-07-13 18:02:00 94 /min [facility] Arterial blood by Pulse oximetry Heart rate 2021-07-13 17:59:00 74 /min [facility] Respiratory rate 2021-07-13 17:59:00 14 /min [facility] Systolic blood 2021-07-13 17:02:14 121 mm[Hg] [facility] pressure Diastolic blood 2021-07-13 17:02:14 63 mm[Hg] [facility] pressure Body temperature 2021-07-13 17:02:14 36.11 Ayana [facility] Body height 2021-07-08 22:41:00 162.6 cm [facility] Body weight 2021-07-08 22:41:00 58.968 kg [facility] BMI 2021-07-08 22:41:00 22.31 kg/m2 [facility] BP Diastolic 2020-09-28 12:46:00 76 mm[Hg] [facility] BP Systolic 2020-09-28 12:46:00 149 mm[Hg] [facility] Oxygen saturation by 2020-09-28 12:46:00 99 /min [facility] - Pulse oximetry Patients [facility] Heart Rate 2020-09-28 12:46:00 85 /min [facility] Respiratory rate 2020-09-28 12:46:00 22 /min [facility] - Patients Medica [facility] Body Temperature 2020-09-28 12:46:00 97.7 [degF] [facility] Patients [facility] Heart Rate 2020-09-28 08:42:00 81 /min [facility] Respiratory rate 2020-09-28 08:42:00 24 /min [facility] Patients [facility] Body Temperature 2020-09-28 08:42:00 97.4 [degF] [facility] BP Diastolic 2020-09-28 08:42:00 60 mm[Hg] [facility] BP Systolic 2020-09-28 08:42:00 141 mm[Hg] [facility] Oxygen saturation by 2020-09-28 08:42:00 96 /min [facility] - Pulse oximetry Patients [facility] BP Diastolic 2020-09-28 08:36:00 60 mm[Hg] [facility] BP Systolic 2020-09-28 08:36:00 141 mm[Hg] [facility] Oxygen saturation by 2020-09-28 08:36:00 96 /min [facility] - Pulse oximetry Patients [facility] Heart Rate 2020-09-28 08:36:00 81 /min [facility] - [facility] Respiratory rate 2020-09-28 08:36:00 24 /min [facility] - Patients [facility] Body Temperature 2020-09-28 08:36:00 97.4 [degF] [facility] Patients [facility] Oxygen saturation by 2020-09-28 08:17:00 96 /min [facility] - Pulse oximetry Patients [facility] Heart Rate 2020-09-28 08:17:00 80 /min [facility] - Patients [facility] Center Respiratory rate 2020-09-28 08:17:00 20 /min [facility] - Patients Medica l Center Oxygen saturation by 2020-09-28 07:49:00 96 /min [facility] - Pulse oximetry Patients [facility] Heart Rate 2020-09-28 07:49:00 80 /min [facility] Respiratory rate 2020-09-28 07:49:00 20 /min [facility] - Patients Medica l Center BP Diastolic 2020-09-28 04:00:00 41 mm[Hg] [facility] BP Systolic 2020-09-28 04:00:00 107 mm[Hg] [facility] - Patients Medica l Center Oxygen saturation by 2020-09-28 04:00:00 96 /min [facility] - Pulse oximetry Patients [facility] Heart Rate 2020-09-28 04:00:00 85 /min [facility] Respiratory rate 2020-09-28 04:00:00 20 /min [facility] [place] Body Temperature 2020-09-28 04:00:00 97.7 [degF] [facility] Oxygen saturation by 2020-09-28 02:48:00 98 /min [facility] - Pulse [facility]ximetry [facility] [facility] Heart Rate 2020-09-28 02:48:00 85 /min [facility] Respiratory rate 2020-09-28 02:48:00 18 /min [facility] Oxygen saturation by 2020-09-28 02:40:00 95 /min [facility] - Pulse oximetry [facility] Heart Rate 2020-09-28 02:40:00 87 /min [facility] Respiratory rate 2020-09-28 02:40:00 20 /min [facility] BP Diastolic 2020-09-28 00:00:00 59 mm[Hg] [facility] BP Systolic 2020-09-28 00:00:00 135 mm[Hg] [facility] Oxygen saturation by 2020-09-28 00:00:00 94 /min [facility] Pulse [facility] Heart Rate 2020-09-28 00:00:00 92 /min [...] [facility] Heart Rate 2020-09-27 20:00:00 99 /min [facility] Respiratory rate 2020-09-27 20:00:00 18 /min [facility] Body Temperature 2020-09-27 20:00:00 98.1 [degF] [facility] Oxygen saturation by 2020-09-27 19:53:00 100 /min [facility] Heart Rate 2020-09-27 19:53:00 96 /min [facility] Respiratory rate 2020-09-27 19:53:00 18 /min [facility] Oxygen saturation by 2020-09-27 19:45:00 97 /min [facility] P[facility] Heart Rate 2020-09-27 19:45:00 99 /min [facility] Respiratory rate 2020-09-27 19:45:00 20 /min [facility] BP Diastolic 2020-09-27 15:21:00 66 mm[Hg] [facility] BP Systolic 2020-09-27 15:21:00 159 mm[Hg] [facility] Oxygen saturation by 2020-09-27 15:21:00 95 /min [facility] Heart Rate 2020-09-27 15:21:00 103 /min [facility] Respiratory rate 2020-09-27 15:21:00 20 /min [facility] Body Temperature 2020-09-27 15:21:00 98.5 [degF] [facility] Oxygen saturation by 2020-09-27 14:45:00 99 /min [facility] Heart Rate 2020-09-27 14:45:00 103 /min [facility] Respiratory rate 2020-09-27 14:45:00 20 /min [facility] Oxygen saturation by 2020-09-27 14:30:00 95 /min [facility] Pulse [facility]xim[facility] Heart Rate 2020-09-27 14:30:00 103 /min [facility] Respiratory rate 2020-09-27 14:30:00 20 /min [facility] BP Diastolic 2020-09-27 11:13:00 56 mm[Hg] [facility] BP Systolic 2020-09-27 11:13:00 123 mm[Hg] [facility] Oxygen saturation by 2020-09-27 11:13:00 99 /min [facility] Pulse [facility]xim[facility] Heart Rate 2020-09-27 11:13:00 88 /min [facility] Respiratory rate 2020-09-27 11:13:00 16 /min [facility] Body Temperature 2020-09-27 11:13:00 98.4 [degF] [facility] BP Diastolic 2020-09-27 08:15:00 51 mm[Hg] [facility] BP Systolic 2020-09-27 08:15:00 116 mm[Hg] [facility] Oxygen saturation by 2020-09-27 08:15:00 95 /min [facility] Pulse [facility] Heart Rate 2020-09-27 08:15:00 105 /min [facility] Respiratory rate 2020-09-27 08:15:00 16 /min [facility] Body Temperature 2020-09-27 08:15:00 97.6 [degF] [facility] BP Diastolic 2020-09-27 07:58:00 51 mm[Hg] [facility] BP Systolic 2020-09-27 07:58:00 116 mm[Hg] [facility] Oxygen saturation by 2020-09-27 07:58:00 95 /min [facility]ulse [facility] Heart Rate 2020-09-27 07:58:00 105 /min [facility] Respiratory rate 2020-09-27 07:58:00 16 /min [facility] Body Temperature 2020-09-27 07:58:00 97.6 [degF] [facility] Oxygen saturation by 2020-09-27 07:15:00 99 /min [facility] Heart Rate 2020-09-27 07:15:00 105 /min [facility] Respiratory rate 2020-09-27 07:15:00 16 /min [facility] Oxygen saturation by 2020-09-27 07:00:00 95 /min [facility] Heart Rate 2020-09-27 07:00:00 105 /min [facility] Respiratory rate 2020-09-27 07:00:00 16 /min [facility] Oxygen saturation by 2020-09-27 00:05:00 100 /min [facility] Heart Rate 2020-09-27 00:05:00 91 /min [facility] Respiratory rate 2020-09-27 00:05:00 20 /min [facility] Oxygen saturation by 2020-09-26 23:50:00 98 /min [facility] Heart Rate 2020-09-26 23:50:00 89 /min [facility] Respiratory rate 2020-09-26 23:50:00 20 /min [facility] BP Diastolic 2020-09-26 20:36:00 69 mm[Hg] [facility] BP Systolic 2020-09-26 20:36:00 114 mm[Hg] [facility] Oxygen saturation by 2020-09-26 20:36:00 98 /min [facility]ulse [facility] Heart Rate 2020-09-26 20:36:00 84 /min [facility] Respiratory rate 2020-09-26 20:36:00 18 /min [facility] [place] Body Temperature 2020-09-26 20:36:00 98.1 [degF] [facility] BP Diastolic 2020-09-26 20:00:00 80 mm[Hg] [facility] BP Systolic 2020-09-26 20:00:00 142 mm[Hg] [facility] Oxygen saturation by 2020-09-26 20:00:00 100 /min [facility] Heart Rate 2020-09-26 20:00:00 89 /min [...] [facility] Heart Rate 2020-09-26 16:11:00 89 /min [facility] Respiratory rate 2020-09-26 16:11:00 21 /min [facility] Body Temperature 2020-09-26 16:11:00 98.3 [degF] [facility] Oxygen saturation by 2020-09-26 13:10:00 96 /min [facility] Heart Rate 2020-09-26 13:10:00 94 /min [facility] Respiratory rate 2020-09-26 13:10:00 16 /min [facility] Oxygen saturation by 2020-09-26 12:55:00 96 /min [facility] Heart Rate 2020-09-26 12:55:00 94 /min [facility] Respiratory rate 2020-09-26 12:55:00 16 /min [facility] Oxygen saturation by 2020-09-26 12:35:00 96 /min [facility] Pulse [facility] Heart Rate 2020-09-26 12:35:00 94 /min [...] [facility] Heart Rate 2020-09-26 12:12:00 100 /min [facility] Respiratory rate 2020-09-26 12:12:00 26 /min [facility] Body Temperature 2020-09-26 12:12:00 98.0 [degF] [facility] BP Diastolic 2020-09-26 09:22:00 59 mm[Hg] [facility] BP Systolic 2020-09-26 09:22:00 113 mm[Hg] [facility] Oxygen saturation by 2020-09-26 09:22:00 98 /min [facility] Heart Rate 2020-09-26 09:22:00 99 /min [facility] Respiratory rate 2020-09-26 09:22:00 26 /min [facility] Body Temperature 2020-09-26 09:22:00 97.4 [degF] [facility] Oxygen saturation by 2020-09-26 08:50:00 98 /min [facility]ulse [facility] Heart Rate 2020-09-26 08:50:00 99 /min [facility] Respiratory rate 2020-09-26 08:50:00 26 /min [facility] Oxygen saturation by 2020-09-26 08:35:00 98 /min [facility] Heart Rate 2020-09-26 08:35:00 99 /min [...] [facility] Heart Rate 2020-09-26 07:58:00 99 /min [...] [facility] Heart Rate 2020-09-26 04:00:00 99 /min [facility] Respiratory rate 2020-09-26 04:00:00 20 /min [facility] Body Temperature 2020-09-26 04:00:00 97.0 [degF] [facility] Oxygen saturation by 2020-09-25 20:08:00 100 /min [facility] Heart Rate 2020-09-25 20:08:00 97 /min [...] [facility] Heart Rate 2020-09-25 20:00:00 99 /min [facility] Respiratory rate 2020-09-25 20:00:00 18 /min [facility] Body Temperature 2020-09-25 20:00:00 97.9 [degF] [facility] Oxygen saturation by 2020-09-25 19:53:00 97 /min [facility] Heart Rate 2020-09-25 19:53:00 94 /min [...] [facility] Heart Rate 2020-09-25 15:48:00 99 /min [facility] Respiratory rate 2020-09-25 15:48:00 18 /min [facility] Body Temperature 2020-09-25 15:48:00 98.0 [degF] [facility] Oxygen saturation by 2020-09-25 12:40:00 97 /min [facility] Heart Rate 2020-09-25 12:40:00 109 /min [facility] Respiratory rate 2020-09-25 12:40:00 16 /min [facility] Oxygen saturation by 2020-09-25 12:39:00 97 /min [facility] Heart Rate 2020-09-25 12:39:00 98 /min [...] [facility] Heart Rate 2020-09-25 11:14:00 98 /min [facility] Respiratory rate 2020-09-25 11:14:00 22 /min [facility] Body Temperature 2020-09-25 11:14:00 97.8 [degF] [facility] BP Diastolic 2020-09-25 09:18:00 62 mm[Hg] [facility] BP Systolic 2020-09-25 09:18:00 135 mm[Hg] [facility] Oxygen saturation by 2020-09-25 09:18:00 98 /min [facility] Heart Rate 2020-09-25 09:18:00 96 /min [facility] Respiratory rate 2020-09-25 09:18:00 18 /min [facility] Body Temperature 2020-09-25 09:18:00 97.9 [degF] [facility] Oxygen saturation by 2020-09-25 08:35:00 98 /min [facility] Heart Rate 2020-09-25 08:35:00 96 /min [facility] Respiratory rate 2020-09-25 08:35:00 18 /min [facility] Oxygen saturation by 2020-09-25 08:20:00 98 /min [facility] Heart Rate 2020-09-25 08:20:00 96 /min [...] [facility] Heart Rate 2020-09-25 07:33:00 96 /min [facility] Respiratory rate 2020-09-25 07:33:00 18 /min [facility] Body Temperature 2020-09-25 07:33:00 97.9 [degF] [facility] BP Diastolic 2020-09-25 04:00:00 69 mm[Hg] [facility] BP Systolic 2020-09-25 04:00:00 121 mm[Hg] [facility] Oxygen saturation by 2020-09-25 04:00:00 97 /min [facility] Heart Rate 2020-09-25 04:00:00 83 /min [...] [facility] Heart Rate 2020-09-24 23:59:00 97 /min [...] [facility] Heart Rate 2020-09-24 20:32:00 112 /min [facility] Respiratory rate 2020-09-24 20:32:00 18 /min [facility] Body Temperature 2020-09-24 20:32:00 97.7 [degF] [facility] Oxygen saturation by 2020-09-24 20:25:00 98 /min [facility] Pulse [facility] Heart Rate 2020-09-24 20:25:00 100 /min [facility] Respiratory rate 2020-09-24 20:25:00 20 /min [facility] Oxygen saturation by 2020-09-24 20:10:00 95 /min [facility]ulse [facility] Heart Rate 2020-09-24 20:10:00 102 /min [facility] Respiratory rate 2020-09-24 20:10:00 20 /min [facility] BP Diastolic 2020-09-24 20:00:00 92 mm[Hg] [facility] BP Systolic 2020-09-24 20:00:00 165 mm[Hg] [facility] Oxygen saturation by 2020-09-24 20:00:00 94 /min [facility] Pulse [facility] Heart Rate 2020-09-24 20:00:00 112 /min [...] [facility] Heart Rate 2020-09-24 17:13:00 94 /min [facility] Respiratory rate 2020-09-24 17:13:00 16 /min [facility] Body Temperature 2020-09-24 17:13:00 97.7 [degF] [facility] Oxygen saturation by 2020-09-24 14:00:00 100 /min [facility] Heart Rate 2020-09-24 14:00:00 94 /min [facility] Respiratory rate 2020-09-24 14:00:00 16 /min [facility] Oxygen saturation by 2020-09-24 13:45:00 100 /min [facility]ulse [facility] Heart Rate 2020-09-24 13:45:00 94 /min [...] [facility] Heart Rate 2020-09-24 08:41:00 94 /min [...] [facility] Heart Rate 2020-09-24 08:30:00 94 /min [facility] Respiratory rate 2020-09-24 08:30:00 18 /min [facility] Body Temperature 2020-09-24 08:30:00 98.6 [degF] [facility] Oxygen saturation by 2020-09-24 06:50:00 100 /min [facility] Pulse [facility] Heart Rate 2020-09-24 06:50:00 91 /min [facility] Respiratory rate 2020-09-24 06:50:00 16 /min [facility] Oxygen saturation by 2020-09-24 06:35:00 97 /min [facility]ulse [facility] Heart Rate 2020-09-24 06:35:00 87 /min [facility] Respiratory rate 2020-09-24 06:35:00 16 /min [facility] Body Temperature 2020-09-24 04:00:00 97.7 [degF] [facility] BP Diastolic 2020-09-24 04:00:00 64 mm[Hg] [facility] BP Systolic 2020-09-24 04:00:00 137 mm[Hg] [facility] Oxygen saturation by 2020-09-24 04:00:00 96 /min [facility] Pulse [facility] Heart Rate 2020-09-24 04:00:00 88 /min [facility] Respiratory rate 2020-09-24 04:00:00 18 /min [facility] Oxygen saturation by 2020-09-24 01:18:00 97 /min [facility] Heart Rate 2020-09-24 01:18:00 91 /min [facility] Respiratory rate 2020-09-24 01:18:00 18 /min [facility] Oxygen saturation by 2020-09-24 01:10:00 94 /min [facility] Heart Rate 2020-09-24 01:10:00 89 /min [...] [facility] Heart Rate 2020-09-24 00:00:00 92 /min [...] [facility] Heart Rate 2020-09-23 21:42:00 105 /min [...] [facility] Heart Rate 2020-09-23 20:00:00 105 /min [facility] Respiratory rate 2020-09-23 20:00:00 18 /min [facility] Body Temperature 2020-09-23 20:00:00 97.9 [degF] [facility] Oxygen saturation by 2020-09-23 19:18:00 99 /min [facility] Heart Rate 2020-09-23 19:18:00 101 /min [facility] Respiratory rate 2020-09-23 19:18:00 22 /min [facility] Oxygen saturation by 2020-09-23 19:10:00 94 /min [facility] Heart Rate 2020-09-23 19:10:00 98 /min [...] [facility] Heart Rate 2020-09-23 16:11:00 96 /min [facility] Respiratory rate 2020-09-23 16:11:00 18 /min [facility] Body Temperature 2020-09-23 16:11:00 97.8 [degF] [facility] Oxygen saturation by 2020-09-23 14:15:00 98 /min [facility] Heart Rate 2020-09-23 14:15:00 83 /min [facility] Respiratory rate 2020-09-23 14:15:00 20 /min [facility] Oxygen saturation by 2020-09-23 14:00:00 98 /min [facility] Heart Rate 2020-09-23 14:00:00 83 /min [...] [facility] Heart Rate 2020-09-23 08:50:00 94 /min [...] [facility] Heart Rate 2020-09-23 08:39:00 94 /min [facility] Respiratory rate 2020-09-23 08:39:00 18 /min [facility] Body Temperature 2020-09-23 08:39:00 97.4 [degF] [facility] Oxygen saturation by 2020-09-23 06:45:00 100 /min [facility] Heart Rate 2020-09-23 06:45:00 94 /min [facility] Respiratory rate 2020-09-23 06:45:00 18 /min [facility] Oxygen saturation by 2020-09-23 06:30:00 100 /min [facility] Heart Rate 2020-09-23 06:30:00 94 /min [...] [facility] Heart Rate 2020-09-23 04:30:00 87 /min [facility] Respiratory rate 2020-09-23 04:30:00 18 /min [facility] Body Temperature 2020-09-23 04:30:00 97.6 [degF] [facility] Oxygen saturation by 2020-09-23 00:40:00 94 /min [facility] Heart Rate 2020-09-23 00:40:00 81 /min [...] [facility] Heart Rate 2020-09-23 00:23:00 81 /min [facility] Respiratory rate 2020-09-23 00:23:00 18 /min [facility] Body Temperature 2020-09-23 00:23:00 98.1 [degF] [facility] BP Diastolic 2020-09-22 20:04:00 81 mm[Hg] [facility] BP Systolic 2020-09-22 20:04:00 158 mm[Hg] [facility] Oxygen saturation by 2020-09-22 20:04:00 95 /min [facility] Heart Rate 2020-09-22 20:04:00 95 /min [facility] Respiratory rate 2020-09-22 20:04:00 18 /min [facility] Body Temperature 2020-09-22 20:04:00 97.6 [degF] [facility] Oxygen saturation by 2020-09-22 20:02:00 98 /min [facility] Heart Rate 2020-09-22 20:02:00 94 /min [facility] Respiratory rate 2020-09-22 20:02:00 20 /min [facility] Oxygen saturation by 2020-09-22 19:47:00 96 /min [facility] Heart Rate 2020-09-22 19:47:00 95 /min [facility] Respiratory rate 2020-09-22 19:47:00 20 /min [facility] Oxygen saturation by 2020-09-22 15:48:00 100 /min [facility] Heart Rate 2020-09-22 15:48:00 89 /min [facility] Respiratory rate 2020-09-22 15:48:00 24 /min [facility] BP Diastolic 2020-09-22 15:40:00 57 mm[Hg] [facility] BP Systolic 2020-09-22 15:40:00 143 mm[Hg] [facility] Oxygen saturation by 2020-09-22 15:40:00 98 /min [facility] Heart Rate 2020-09-22 15:40:00 90 /min [facility] Respiratory rate 2020-09-22 15:40:00 22 /min [facility] Body Temperature 2020-09-22 15:40:00 97.6 [degF] [facility] [place] Oxygen saturation by 2020-09-22 15:33:00 96 /min [facility] Pulse [facility]xim[facility] Heart Rate 2020-09-22 15:33:00 88 /min [facility] Respiratory rate 2020-09-22 15:33:00 24 /min [facility] BP Diastolic 2020-09-22 11:44:00 65 mm[Hg] [facility] BP Systolic 2020-09-22 11:44:00 165 mm[Hg] [facility] Oxygen saturation by 2020-09-22 11:44:00 100 /min [facility] Heart Rate 2020-09-22 11:44:00 81 /min [facility] Respiratory rate 2020-09-22 11:44:00 23 /min [facility] Body Temperature 2020-09-22 11:44:00 97.9 [degF] [facility] Oxygen saturation by 2020-09-22 11:25:00 100 /min [facility] - Pulse oximetry Patients [facility] Heart Rate 2020-09-22 11:25:00 88 /min [facility] Oxygen saturation by 2020-09-22 11:10:00 96 /min [facility] Patients [facility] Heart Rate 2020-09-22 11:10:00 84 /min [facility] Respiratory rate 2020-09-22 11:10:00 24 /min [facility] BP Diastolic 2020-09-22 09:27:00 61 mm[Hg] [facility] BP Systolic 2020-09-22 09:27:00 165 mm[Hg] [facility] Oxygen saturation by 2020-09-22 09:27:00 94 /min [facility]ulse [facility] Patients [facility] Heart Rate 2020-09-22 09:27:00 84 /min [facility] Respiratory rate 2020-09-22 09:27:00 22 /min [facility] Body Temperature 2020-09-22 09:27:00 98.0 [degF] [facility] BP Diastolic 2020-09-22 08:00:00 61 mm[Hg] [facility] BP Systolic 2020-09-22 08:00:00 165 mm[Hg] [facility] Oxygen saturation by 2020-09-22 08:00:00 94 /min [facility]ulse [facility] Patients [facility] Heart Rate 2020-09-22 08:00:00 84 /min [...] [facility] Heart Rate 2020-09-22 03:50:00 93 /min [facility] Respiratory rate 2020-09-22 03:50:00 24 /min [facility] Body Temperature 2020-09-22 03:50:00 97.9 [degF] [facility] Oxygen saturation by 2020-09-22 02:17:00 100 /min [facility]ulse [facility] Patients [facility] Heart Rate 2020-09-22 02:17:00 92 /min [facility] Respiratory rate 2020-09-22 02:17:00 20 /min [facility] Oxygen saturation by 2020-09-22 02:02:00 100 /min [facility]ulse [facility] Patients [facility] Heart Rate 2020-09-22 02:02:00 88 /min [...] [facility] Heart Rate 2020-09-22 00:02:00 72 /min [...] [facility] Oxygen saturation by 2020-09-21 20:07:00 96 /min [facility]ulse [facility] Patients [facility] Heart Rate 2020-09-21 20:07:00 84 /min [facility] Respiratory rate 2020-09-21 20:07:00 24 /min [facility] Body Temperature 2020-09-21 20:07:00 98.6 [degF] [facility] Oxygen saturation by 2020-09-21 20:02:00 97 /min [facility]ulse [facility] Patients [facility] Heart Rate 2020-09-21 20:02:00 80 /min [facility] Respiratory rate 2020-09-21 20:02:00 18 /min [facility] BP Diastolic 2020-09-21 20:00:00 96 mm[Hg] [facility] BP Systolic 2020-09-21 20:00:00 135 mm[Hg] [facility] Oxygen saturation by 2020-09-21 20:00:00 95 /min [facility]ulse [facility] Patients [facility] Heart Rate 2020-09-21 20:00:00 78 /min [facility] Respiratory rate 2020-09-21 20:00:00 18 /min [facility] Body Temperature 2020-09-21 20:00:00 98.4 [degF] [facility] BP Diastolic 2020-09-21 16:00:00 96 mm[Hg] [facility] BP Systolic 2020-09-21 16:00:00 135 mm[Hg] [facility] Oxygen saturation by 2020-09-21 16:00:00 95 /min [facility] Pulse [facility] Patients [facility] Heart Rate 2020-09-21 16:00:00 78 /min [facility] Respiratory rate 2020-09-21 16:00:00 18 /min [facility] Body Temperature 2020-09-21 16:00:00 98.4 [degF] [facility] BP Diastolic 2020-09-21 13:02:00 90 mm[Hg] [facility] BP Systolic 2020-09-21 13:02:00 201 mm[Hg] [facility] Oxygen saturation by 2020-09-21 13:02:00 96 /min [facility] Pulse [facility] Patients [facility] Heart Rate 2020-09-21 13:02:00 70 /min [facility] Respiratory rate 2020-09-21 13:02:00 18 /min [facility] Body Temperature 2020-09-21 13:02:00 98.3 [degF] [facility] Oxygen saturation by 2020-09-21 10:15:00 96 /min [facility] Pulse [facility] Patients [facility] Heart Rate 2020-09-21 10:15:00 72 /min [facility] Respiratory rate 2020-09-21 10:15:00 18 /min [facility] BP Diastolic 2020-09-21 09:08:00 63 mm[Hg] [facility] BP Systolic 2020-09-21 09:08:00 150 mm[Hg] [facility] Oxygen saturation by 2020-09-21 09:08:00 95 /min [facility] Pulse [facility] Patients [facility] Heart Rate 2020-09-21 09:08:00 63 /min [...] [facility] Pulse [facility] Patients [facility] Heart Rate 2020-09-21 08:58:00 63 /min [facility] Respiratory rate 2020-09-21 08:58:00 17 /min [facility] Body Temperature 2020-09-21 08:58:00 98.0 [degF] [facility] BP Diastolic 2020-09-21 07:38:00 63 mm[Hg] [facility] BP Systolic 2020-09-21 07:38:00 150 mm[Hg] [facility] Oxygen saturation by 2020-09-21 07:38:00 95 /min [facility]ulse [facility] Patients [facility] Heart Rate 2020-09-21 07:38:00 63 /min [facility] Respiratory rate 2020-09-21 07:38:00 17 /min [facility] Body Temperature 2020-09-21 07:38:00 98.0 [degF] [facility] BP Diastolic 2020-09-21 04:00:00 70 mm[Hg] [facility] BP Systolic 2020-09-21 04:00:00 149 mm[Hg] [facility] Oxygen saturation by 2020-09-21 04:00:00 94 /min [facility] Pulse [facility]xim[facility] Patients [facility] Heart Rate 2020-09-21 04:00:00 73 /min [...] [facility]ulse [facility] Patients [facility] Heart Rate 2020-09-21 00:00:00 76 /min [...] mm[Hg] [facility] Oxygen saturation by 2020-09-20 20:00:00 94 /min [facility] Pulse [facility]xim[facility] Patients [facility] Heart Rate 2020-09-20 20:00:00 72 /min [facility] Respiratory rate 2020-09-20 20:00:00 20 /min [facility] Body Temperature 2020-09-20 20:00:00 98.1 [degF] [facility] Oxygen saturation by 2020-09-20 19:53:00 99 /min [facility] Pulse [facility] Patients [facility] Heart Rate 2020-09-20 19:53:00 72 /min [facility] Respiratory rate 2020-09-20 19:53:00 16 /min [facility] Oxygen saturation by 2020-09-20 19:45:00 96 /min [facility] Pulse [facility]ximetry Patients [facility] Heart Rate 2020-09-20 19:45:00 75 /min [facility] Respiratory rate 2020-09-20 19:45:00 18 /min [facility] BP Diastolic 2020-09-20 16:36:00 69 mm[Hg] [facility] BP Systolic 2020-09-20 16:36:00 155 mm[Hg] [facility] Oxygen saturation by 2020-09-20 16:36:00 97 /min [facility] Pulse [facility]ximetry Patients [facility] Heart Rate 2020-09-20 16:36:00 73 /min [facility] Respiratory rate 2020-09-20 16:36:00 21 /min [facility] Body Temperature 2020-09-20 16:36:00 98.3 [degF] [facility] BP Diastolic 2020-09-20 15:47:00 60 mm[Hg] [facility] BP Systolic 2020-09-20 15:47:00 133 mm[Hg] [facility] Oxygen saturation by 2020-09-20 15:47:00 94 /min [facility] Pulse [facility]ximetry Patients [facility] Heart Rate 2020-09-20 15:47:00 71 /min [facility] Respiratory rate 2020-09-20 15:47:00 19 /min [facility] Body Temperature 2020-09-20 15:47:00 98.1 [degF] [facility] BP Diastolic 2020-09-20 11:55:00 60 mm[Hg] [facility] BP Systolic 2020-09-20 11:55:00 133 mm[Hg] [facility] Oxygen saturation by 2020-09-20 11:55:00 94 /min [facility] Pulse oximetry Patients [facility] Heart Rate 2020-09-20 11:55:00 71 /min [...] 145 mm[Hg] [facility] Oxygen saturation by 2020-09-20 09:06:00 99 /min [facility] Pulse [facility]ximetry Patients [facility] Heart Rate 2020-09-20 09:06:00 86 /min [...] [facility] Pulse [facility] Patients [facility] Heart Rate 2020-09-20 08:58:00 86 /min [facility] Respiratory rate 2020-09-20 08:58:00 19 /min [facility] Body Temperature 2020-09-20 08:58:00 98.4 [degF] [facility] BP Diastolic 2020-09-20 08:55:00 66 mm[Hg] [facility] BP Systolic 2020-09-20 08:55:00 145 mm[Hg] [facility] Oxygen saturation by 2020-09-20 08:55:00 99 /min [facility] Pulse [facility]ximetry Patients [facility] Heart Rate 2020-09-20 08:55:00 86 /min [facility] Respiratory rate 2020-09-20 08:55:00 19 /min [facility] Body Temperature 2020-09-20 08:55:00 98.4 [degF] [facility] BP Diastolic 2020-09-20 07:38:00 66 mm[Hg] [facility] BP Systolic 2020-09-20 07:38:00 145 mm[Hg] [facility] Oxygen saturation by 2020-09-20 07:38:00 99 /min [facility] - Pulse [facility]ximetry Patients [facility] Heart Rate 2020-09-20 07:38:00 71 /min [facility] Respiratory rate 2020-09-20 07:38:00 19 /min [facility] Body Temperature 2020-09-20 07:38:00 98.4 [degF] [facility] Oxygen saturation by 2020-09-20 07:05:00 95 /min [facility] Pulse [facility]ximetry Patients [facility] Heart Rate 2020-09-20 07:05:00 82 /min [facility] Respiratory rate 2020-09-20 07:05:00 18 /min [facility] BP Diastolic 2020-09-20 04:00:00 61 mm[Hg] [facility] BP Systolic 2020-09-20 04:00:00 145 mm[Hg] [facility] Oxygen saturation by 2020-09-20 04:00:00 96 /min [facility] Pulse [facility]ximetry Patients [facility] Heart Rate 2020-09-20 04:00:00 66 /min [...] [facility] Pulse [facility] Patients [facility] Heart Rate 2020-09-20 00:00:00 66 /min [facility] Respiratory rate 2020-09-20 00:00:00 20 [...] [facility] Pulse [facility]etry Patients [facility] Heart Rate 2020-09-19 21:46:00 80 /min [facility] Respiratory rate 2020-09-19 21:46:00 18 /min [facility] Body Temperature 2020-09-19 21:46:00 97.4 [degF] [facility] Oxygen saturation by 2020-09-19 20:09:00 95 /min [facility] Pulse [facility]ximetry Patients [facility] Heart Rate 2020-09-19 20:09:00 82 /min [...] [facility]ulse [facility] Patients [facility] Heart Rate 2020-09-19 20:00:00 80 /min [facility] Respiratory rate 2020-09-19 20:00:00 18 /min [facility] Body Temperature 2020-09-19 20:00:00 97.4 [degF] [facility] BP Diastolic 2020-09-19 15:41:00 70 mm[Hg] [facility] BP Systolic 2020-09-19 15:41:00 157 mm[Hg] [facility] Oxygen saturation by 2020-09-19 15:41:00 95 /min [facility] Pulse [facility]ximetry Patients [facility] Heart Rate 2020-09-19 15:41:00 80 /min [...] [facility]ulse [facility] Patients [facility] Heart Rate 2020-09-19 12:14:00 84 /min [...] [facility]ulse [facility] Patients [facility] Heart Rate 2020-09-19 11:26:00 88 /min [facility] Respiratory rate 2020-09-19 11:26:00 16 /min [facility] Body Temperature 2020-09-19 11:26:00 98.6 [degF] [facility] Oxygen saturation by 2020-09-19 08:10:00 93 /min [facility] Pulse [facility]ximetry Patients [facility] Heart Rate 2020-09-19 08:10:00 97 /min [...] [facility]ulse [facility]etry Patients [facility] Heart Rate 2020-09-19 07:37:00 83 /min [facility] Respiratory rate 2020-09-19 07:37:00 21 /min [facility] Body Temperature 2020-09-19 07:37:00 98.1 [degF] [facility] BP Diastolic 2020-09-19 07:17:00 91 mm[Hg] [facility] BP Systolic 2020-09-19 07:17:00 168 mm[Hg] [facility] Oxygen saturation by 2020-09-19 07:17:00 97 /min [facility] Pulse [facility]xim[facility] Patients [facility] Heart Rate 2020-09-19 07:17:00 83 /min [...] [facility] Patients [facility] Heart Rate 2020-09-19 05:03:00 91 /min [facility] Respiratory rate 2020-09-19 05:03:00 18 /min [facility] Body Temperature 2020-09-19 05:03:00 91.0 [degF] [facility] BP Diastolic 2020-09-19 01:59:00 87 mm[Hg] [facility] BP Systolic 2020-09-19 01:59:00 200 mm[Hg] [facility] Oxygen saturation by 2020-09-19 01:59:00 96 /min [facility] Pulse [facility]ximetry Patients [facility] Heart Rate 2020-09-19 01:59:00 92 /min [facility] Respiratory rate 2020-09-19 01:59:00 [...] [facility] Patients [facility] Heart Rate 2020-09-18 22:57:00 68 /min [facility] Respiratory rate 2020-09-18 22:57:00 18 /min [facility] Body Temperature 2020-09-18 22:57:00 97.7 [degF] [facility] BP Diastolic 2020-09-18 21:58:00 86 mm[Hg] [facility] BP Systolic 2020-09-18 21:58:00 158 mm[Hg] [facility] Oxygen saturation by 2020-09-18 21:58:00 96 /min [facility] Pulse [facility]ximetry Patients [facility] Heart Rate 2020-09-18 21:58:00 68 /min [facility] Respiratory rate 2020-09-18 21:58:00 18 /min [facility] Body Temperature 2020-09-18 21:58:00 97.7 [degF] [facility] Oxygen saturation by 2020-09-18 21:16:00 93 /min [facility] Pulse [facility]ximetry Patients [facility] Heart Rate 2020-09-18 21:16:00 97 /min [...] [facility] Patients [facility] Heart Rate 2020-09-18 15:41:00 84 /min [...] [facility] Patients [facility] Heart Rate 2020-09-18 13:00:00 86 /min [...] [facility] Patients [facility] Heart Rate 2020-09-18 12:00:00 85 /min [...] [facility] Patients [facility] Heart Rate 2020-09-18 11:00:00 86 /min [...] [facility] Patients [facility] Heart Rate 2020-09-18 10:00:00 80 /min [facility] Respiratory rate 2020-09-18 10:00:00 19 /min [facility] BP Diastolic 2020-09-18 09:00:00 80 mm[Hg] [facility] BP Systolic 2020-09-18 09:00:00 141 mm[Hg] [facility] Oxygen saturation by 2020-09-18 09:00:00 96 /min [facility] Pulse [facility]ximetry Patients [facility] Heart Rate 2020-09-18 09:00:00 86 /min [...] [facility] Heart Rate 2020-09-18 08:00:00 86 /min [...] [facility] Patients [facility] Heart Rate 2020-09-18 07:51:00 86 /min [facility] Respiratory rate 2020-09-18 07:51:00 17 /min [facility] Body Temperature 2020-09-18 07:51:00 97.7 [degF] [facility] Oxygen saturation by 2020-09-18 07:35:00 97 /min [facility] Pulse [facility]ximetry Patients [facility] Heart Rate 2020-09-18 07:35:00 85 /min [...] Oxygen saturation by 2020-09-18 07:00:00 97 /min [facility]ulse [facility]ximetry Patients [facility] Heart Rate 2020-09-18 07:00:00 86 /min [facility] Respiratory rate 2020-09-18 07:00:00 17 /min [facility] Body Temperature 2020-09-18 07:00:00 97.7 [degF] [facility] BP Diastolic 2020-09-18 06:00:00 85 mm[Hg] [facility] BP Systolic 2020-09-18 06:00:00 174 mm[Hg] [facility] Oxygen saturation by 2020-09-18 06:00:00 96 /min [facility]ulse [facility] Patients [facility] Heart Rate 2020-09-18 06:00:00 95 /min [...] [facility] Patients [facility] Heart Rate 2020-09-18 05:00:00 86 /min [facility] Respiratory rate 2020-09-18 05:00:00 18 /min [facility] BP Diastolic 2020-09-18 04:00:00 74 mm[Hg] [facility] BP Systolic 2020-09-18 04:00:00 150 mm[Hg] [facility] Oxygen saturation by 2020-09-18 04:00:00 96 /min [facility]ulse [facility] Patients [facility] Heart Rate 2020-09-18 04:00:00 76 /min [facility] Respiratory rate 2020-09-18 04:00:00 17 /min [facility] BP Diastolic 2020-09-18 03:00:00 88 mm[Hg] [facility] BP Systolic 2020-09-18 03:00:00 157 mm[Hg] [facility] Oxygen saturation by 2020-09-18 03:00:00 97 /min [facility] Patients [facility] Heart Rate 2020-09-18 03:00:00 89 /min [facility] Respiratory rate 2020-09-18 03:00:00 15 /min [facility] BP Diastolic 2020-09-18 02:00:00 80 mm[Hg] [facility] BP Systolic 2020-09-18 02:00:00 145 mm[Hg] [facility] Oxygen saturation by 2020-09-18 02:00:00 96 /min [facility] Patients [facility] Heart Rate 2020-09-18 02:00:00 95 /min [facility] Respiratory rate 2020-09-18 02:00:00 16 /min [facility] BP Diastolic 2020-09-18 01:00:00 73 mm[Hg] [facility] BP Systolic 2020-09-18 01:00:00 144 mm[Hg] [facility] Oxygen saturation by 2020-09-18 01:00:00 97 /min [facility]ulse [facility] Patients [facility] Heart Rate 2020-09-18 01:00:00 84 /min [facility] Respiratory rate 2020-09-18 01:00:00 19 /min [facility] BP Diastolic 2020-09-18 00:00:00 68 mm[Hg] [facility] BP Systolic 2020-09-18 00:00:00 144 mm[Hg] [facility] [place] Oxygen saturation by 2020-09-18 00:00:00 97 /min [facility] Patients [facility] Heart Rate 2020-09-18 00:00:00 89 /min [facility] Respiratory rate 2020-09-18 00:00:00 18 /min [facility] Body Temperature 2020-09-18 00:00:00 98.3 [degF] [facility] BP Diastolic 2020-09-17 23:00:00 89 mm[Hg] [facility] BP Systolic 2020-09-17 23:00:00 145 mm[Hg] [facility] Oxygen saturation by 2020-09-17 23:00:00 96 /min [facility] Heart Rate 2020-09-17 23:00:00 90 /min [...] [facility] Heart Rate 2020-09-17 22:03:00 90 /min [...] [facility] Heart Rate 2020-09-17 21:00:00 97 /min [facility] Respiratory rate 2020-09-17 21:00:00 19 /min [facility] Oxygen saturation by 2020-09-17 20:08:00 96 /min [facility] Patients [facility] Heart Rate 2020-09-17 20:08:00 95 /min [...] [facility] Heart Rate 2020-09-17 20:00:00 105 /min [...] [facility] Heart Rate 2020-09-17 19:00:00 102 /min [facility] Respiratory rate 2020-09-17 19:00:00 23 /min [facility] Body Temperature 2020-09-17 19:00:00 97.4 [degF] [facility] BP Diastolic 2020-09-17 18:00:00 74 mm[Hg] [facility] BP Systolic 2020-09-17 18:00:00 146 mm[Hg] [facility] Oxygen saturation by 2020-09-17 18:00:00 95 /min [facility] Pulse [facility] Patients [facility] Heart Rate 2020-09-17 18:00:00 97 /min [facility] Respiratory rate 2020-09-17 18:00:00 18 /min [facility] BP Diastolic 2020-09-17 17:00:00 73 mm[Hg] [facility] BP Systolic 2020-09-17 17:00:00 134 mm[Hg] [facility] Oxygen saturation by 2020-09-17 17:00:00 94 /min [facility] Heart Rate 2020-09-17 17:00:00 106 /min [...] [facility] Heart Rate 2020-09-17 16:00:00 96 /min [facility] Respiratory rate 2020-09-17 16:00:00 32 /min [facility] Body Temperature 2020-09-17 16:00:00 98.6 [degF] [facility] Oxygen saturation by 2020-09-17 15:28:00 94 /min [facility] Heart Rate 2020-09-17 15:28:00 83 /min [facility] Respiratory rate 2020-09-17 15:28:00 26 /min [facility] Oxygen saturation by 2020-09-17 15:27:00 94 /min [facility] Heart Rate 2020-09-17 15:27:00 83 /min [...] [facility] Heart Rate 2020-09-17 15:00:00 93 /min [facility] Respiratory rate 2020-09-17 15:00:00 24 /min [facility] Oxygen saturation by 2020-09-17 14:59:00 94 /min [facility] Heart Rate 2020-09-17 14:59:00 84 /min [...] [facility] Heart Rate 2020-09-17 14:00:00 109 /min [facility] Respiratory rate 2020-09-17 14:00:00 29 /min [facility] BP Diastolic 2020-09-17 13:00:00 87 mm[Hg] [facility] BP Systolic 2020-09-17 13:00:00 171 mm[Hg] [facility] Oxygen saturation by 2020-09-17 13:00:00 92 /min [facility] Heart Rate 2020-09-17 13:00:00 112 /min [facility] Respiratory rate 2020-09-17 13:00:00 28 /min [facility] BP Diastolic 2020-09-17 12:00:00 75 mm[Hg] [facility] BP Systolic 2020-09-17 12:00:00 132 mm[Hg] [facility] Oxygen saturation by 2020-09-17 12:00:00 92 /min [facility] Heart Rate 2020-09-17 12:00:00 112 /min [...] [facility] Heart Rate 2020-09-17 11:00:00 119 /min [facility] Respiratory rate 2020-09-17 11:00:00 39 /min [facility] BP Diastolic 2020-09-17 10:00:00 86 mm[Hg] [facility] BP Systolic 2020-09-17 10:00:00 181 mm[Hg] [facility] Heart Rate 2020-09-17 10:00:00 105 /min [facility] Respiratory rate 2020-09-17 10:00:00 38 /min [facility] BP Diastolic 2020-09-17 09:00:00 82 mm[Hg] [facility] BP Systolic 2020-09-17 09:00:00 175 mm[Hg] [facility] Oxygen saturation by 2020-09-17 09:00:00 97 /min [facility] Heart Rate 2020-09-17 09:00:00 88 /min [...] [facility] Heart Rate 2020-09-17 08:00:00 85 /min [...] [facility] Heart Rate 2020-09-17 07:00:00 84 /min [facility] Respiratory rate 2020-09-17 07:00:00 15 /min [facility] BP Diastolic 2020-09-17 06:00:00 87 mm[Hg] [facility] BP Systolic 2020-09-17 06:00:00 159 mm[Hg] [facility] Oxygen saturation by 2020-09-17 06:00:00 96 /min [facility] Heart Rate 2020-09-17 06:00:00 83 /min [...] [facility] Heart Rate 2020-09-17 05:00:00 84 /min [...] [facility] Heart Rate 2020-09-17 04:00:00 86 /min [...] [facility] Heart Rate 2020-09-17 03:00:00 90 /min [...] [facility] Heart Rate 2020-09-17 02:00:00 88 /min [...] [facility] Heart Rate 2020-09-17 01:00:00 88 /min [facility] Respiratory rate 2020-09-17 01:00:00 15 /min [facility] BP Diastolic 2020-09-17 00:00:00 76 mm[Hg] [facility] BP Systolic 2020-09-17 00:00:00 171 mm[Hg] [facility] Oxygen saturation by 2020-09-17 00:00:00 96 /min [facility] Heart Rate 2020-09-17 00:00:00 92 /min [facility] Respiratory rate 2020-09-17 00:00:00 26 /min [facility] Oxygen saturation by 2020-09-16 23:05:00 95 /min [facility] Heart Rate 2020-09-16 23:05:00 77 /min [...] [facility] Heart Rate 2020-09-16 23:00:00 83 /min [...] [facility] Heart Rate 2020-09-16 22:06:00 82 /min [...] [facility] Heart Rate 2020-09-16 22:03:00 84 /min [...] [facility] Heart Rate 2020-09-16 22:00:00 86 /min [...] [facility] Heart Rate 2020-09-16 21:01:00 85 /min [facility] Respiratory rate 2020-09-16 21:01:00 17 /min [facility] BP Diastolic 2020-09-16 20:44:00 111 mm[Hg] [facility] BP Systolic 2020-09-16 20:44:00 141 mm[Hg] [facility] Oxygen saturation by 2020-09-16 20:44:00 96 /min [facility] Heart Rate 2020-09-16 20:44:00 84 /min [facility] Respiratory rate 2020-09-16 20:44:00 21 /min [facility] Body Temperature 2020-09-16 20:44:00 98.0 [degF] [facility] BP Diastolic 2020-09-16 20:42:00 111 mm[Hg] [facility] BP Systolic 2020-09-16 20:42:00 141 mm[Hg] [facility] Heart Rate 2020-09-16 20:42:00 84 /min [facility] BP Diastolic 2020-09-16 20:24:00 66 mm[Hg] [facility] BP Systolic 2020-09-16 20:24:00 163 mm[Hg] [facility] Heart Rate 2020-09-16 20:24:00 84 /min [facility] BP Diastolic 2020-09-16 20:00:00 88 mm[Hg] [facility] BP Systolic 2020-09-16 20:00:00 185 mm[Hg] [facility] Oxygen saturation by 2020-09-16 20:00:00 96 /min [facility] Heart Rate 2020-09-16 20:00:00 96 /min [facility] Respiratory rate 2020-09-16 20:00:00 21 /min [facility] Body Temperature 2020-09-16 20:00:00 98.0 [degF] [facility] Oxygen saturation by 2020-09-16 19:40:00 96 /min [facility] Heart Rate 2020-09-16 19:40:00 105 /min [facility] Respiratory rate 2020-09-16 19:40:00 27 /min [facility] BP Diastolic 2020-09-16 16:00:00 90 mm[Hg] [facility] BP Systolic 2020-09-16 16:00:00 175 mm[Hg] [facility] [place] Oxygen saturation by 2020-09-16 16:00:00 96 /min [facility] Heart Rate 2020-09-16 16:00:00 108 /min [facility] Respiratory rate 2020-09-16 16:00:00 36 /min [facility] Body Temperature 2020-09-16 16:00:00 98.5 [degF] [facility] BP Diastolic 2020-09-16 13:00:00 73 mm[Hg] [facility] BP Systolic 2020-09-16 13:00:00 149 mm[Hg] [facility] Oxygen saturation by 2020-09-16 13:00:00 2 /min [facility] Heart Rate 2020-09-16 13:00:00 90 /min [facility] Respiratory rate 2020-09-16 13:00:00 15 /min [facility] BP Diastolic 2020-09-16 12:00:00 88 mm[Hg] [facility] BP Systolic 2020-09-16 12:00:00 174 mm[Hg] [facility] Oxygen saturation by 2020-09-16 12:00:00 94 /min [facility] Heart Rate 2020-09-16 12:00:00 101 /min [facility] Respiratory rate 2020-09-16 12:00:00 32 /min [facility] Body Temperature 2020-09-16 12:00:00 97.8 [degF] [facility] Oxygen saturation by 2020-09-16 11:00:00 96 /min [facility] Heart Rate 2020-09-16 11:00:00 79 /min [facility] Respiratory rate 2020-09-16 11:00:00 19 [...] [facility] Heart Rate 2020-09-16 10:00:00 82 /min [...] mm[Hg] [facility] Oxygen saturation by 2020-09-16 09:00:00 95 /min [facility] Heart Rate 2020-09-16 09:00:00 82 /min [facility] Respiratory rate 2020-09-16 09:00:00 20 /min [facility] BP Diastolic 2020-09-16 08:00:00 77 mm[Hg] [facility] BP Systolic 2020-09-16 08:00:00 197 mm[Hg] [facility] Oxygen saturation by 2020-09-16 08:00:00 94 /min [facility] Heart Rate 2020-09-16 08:00:00 79 /min [...] [facility] Heart Rate 2020-09-16 07:00:00 73 /min [...] [facility] Heart Rate 2020-09-16 06:00:00 87 /min [facility] Respiratory rate 2020-09-16 06:00:00 19 /min [facility] BP Diastolic 2020-09-16 05:00:00 71 mm[Hg] [facility] BP Systolic 2020-09-16 05:00:00 150 mm[Hg] [facility] Oxygen saturation by 2020-09-16 05:00:00 96 /min [facility] Heart Rate 2020-09-16 05:00:00 89 /min [...] [facility] Heart Rate 2020-09-16 04:00:00 85 /min [...] [facility] Heart Rate 2020-09-16 03:00:00 82 /min [facility] Respiratory rate 2020-09-16 03:00:00 15 /min [facility] Body Temperature 2020-09-16 03:00:00 98.5 [degF] [facility] BP Diastolic 2020-09-16 02:00:00 66 mm[Hg] [facility] BP Systolic 2020-09-16 02:00:00 140 mm[Hg] [facility] Oxygen saturation by 2020-09-16 02:00:00 95 /min [facility] Heart Rate 2020-09-16 02:00:00 83 /min [facility] Respiratory rate 2020-09-16 02:00:00 17 /min [facility] BP Diastolic 2020-09-16 01:00:00 70 mm[Hg] [facility] BP Systolic 2020-09-16 01:00:00 164 mm[Hg] [facility] Oxygen saturation by 2020-09-16 01:00:00 96 /min [facility] Heart Rate 2020-09-16 01:00:00 84 /min [...] [facility] Heart Rate 2020-09-16 00:00:00 77 /min [facility] Respiratory rate 2020-09-16 00:00:00 20 /min [facility] Body Temperature 2020-09-16 00:00:00 98.6 [degF] [facility] BP Diastolic 2020-09-15 23:00:00 59 mm[Hg] [facility] BP Systolic 2020-09-15 23:00:00 143 mm[Hg] [facility] Oxygen saturation by 2020-09-15 23:00:00 95 /min [facility] Heart Rate 2020-09-15 23:00:00 79 /min [...] [facility] Heart Rate 2020-09-15 22:00:00 78 /min [facility] Respiratory rate 2020-09-15 22:00:00 17 /min [facility] BP Diastolic 2020-09-15 21:00:00 56 mm[Hg] [facility] BP Systolic 2020-09-15 21:00:00 145 mm[Hg] [facility] Oxygen saturation by 2020-09-15 21:00:00 93 /min [facility] Heart Rate 2020-09-15 21:00:00 79 /min [facility] Respiratory rate 2020-09-15 21:00:00 17 /min [facility] Oxygen saturation by 2020-09-15 20:50:00 94 /min [facility] Heart Rate 2020-09-15 20:50:00 81 /min [facility] Respiratory rate 2020-09-15 20:50:00 18 /min [facility] BP Diastolic 2020-09-15 20:00:00 56 mm[Hg] [facility] BP Systolic 2020-09-15 20:00:00 165 mm[Hg] [facility] Oxygen saturation by 2020-09-15 20:00:00 97 /min [facility] Heart Rate 2020-09-15 20:00:00 76 /min [facility] Respiratory rate 2020-09-15 20:00:00 22 /min [facility] Oxygen saturation by 2020-09-15 19:00:00 96 /min [facility] Respiratory rate 2020-09-15 19:00:00 14 /min [facility] Body Temperature 2020-09-15 19:00:00 98.7 [degF] [facility] BP Diastolic 2020-09-15 18:00:00 115 mm[Hg] [facility] BP Systolic 2020-09-15 18:00:00 154 mm[Hg] [facility] Oxygen saturation by 2020-09-15 18:00:00 94 /min [facility] Heart Rate 2020-09-15 18:00:00 79 /min [...] [facility] Heart Rate 2020-09-15 17:00:00 71 /min [facility] Respiratory rate 2020-09-15 17:00:00 18 /min [facility] BP Diastolic 2020-09-15 16:00:00 75 mm[Hg] [facility] BP Systolic 2020-09-15 16:00:00 159 mm[Hg] [facility] Oxygen saturation by 2020-09-15 16:00:00 94 /min [facility] Heart Rate 2020-09-15 16:00:00 75 /min [facility] Respiratory rate 2020-09-15 16:00:00 16 /min [facility] BP Diastolic 2020-09-15 15:14:00 71 mm[Hg] [facility] BP Systolic 2020-09-15 15:14:00 169 mm[Hg] [facility] Oxygen saturation by 2020-09-15 15:14:00 100 /min [facility] Heart Rate 2020-09-15 15:14:00 75 /min [facility] Body Temperature 2020-09-15 15:14:00 97.7 [degF] [facility] BP Diastolic 2020-09-15 15:10:00 66 mm[Hg] [facility] BP Systolic 2020-09-15 15:10:00 156 mm[Hg] [facility] Oxygen saturation by 2020-09-15 15:10:00 100 /min [facility] Heart Rate 2020-09-15 15:10:00 74 /min [facility] Respiratory rate 2020-09-15 15:10:00 18 /min [facility] BP Diastolic 2020-09-15 14:50:00 84 mm[Hg] [facility] BP Systolic 2020-09-15 14:50:00 176 mm[Hg] [facility] Oxygen saturation by 2020-09-15 14:50:00 100 /min [facility] Heart Rate 2020-09-15 14:50:00 81 /min [facility] Respiratory rate 2020-09-15 14:50:00 18 /min [facility] BP Diastolic 2020-09-15 14:40:00 94 mm[Hg] [facility] BP Systolic 2020-09-15 14:40:00 200 mm[Hg] [facility] Oxygen saturation by 2020-09-15 14:40:00 97 /min [facility] Heart Rate 2020-09-15 14:40:00 96 /min [facility] Respiratory rate 2020-09-15 14:40:00 16 /min [facility] BP Diastolic 2020-09-15 14:25:00 96 mm[Hg] [facility] BP Systolic 2020-09-15 14:25:00 175 mm[Hg] [facility] Oxygen saturation by 2020-09-15 14:25:00 98 /min [facility] Heart Rate 2020-09-15 14:25:00 99 /min [facility] Respiratory rate 2020-09-15 14:25:00 16 /min [facility] Body Temperature 2020-09-15 14:25:00 98.0 [degF] [facility] BP Diastolic 2020-09-15 11:14:00 67 mm[Hg] [facility] BP Systolic 2020-09-15 11:14:00 177 mm[Hg] [facility] Oxygen saturation by 2020-09-15 11:14:00 94 /min [facility] Heart Rate 2020-09-15 11:14:00 70 /min [facility] Respiratory rate 2020-09-15 11:14:00 18 /min [facility] Body Temperature 2020-09-15 11:14:00 97.6 [degF] [facility] BP Diastolic 2020-09-15 08:52:00 75 mm[Hg] [facility] BP Systolic 2020-09-15 08:52:00 171 mm[Hg] [facility] Oxygen saturation by 2020-09-15 08:52:00 92 /min [facility] Heart Rate 2020-09-15 08:52:00 74 /min [facility] Respiratory rate 2020-09-15 08:52:00 18 /min [facility] Body Temperature 2020-09-15 08:52:00 97.6 [degF] [facility] BP Diastolic 2020-09-15 07:45:00 75 mm[Hg] [facility] BP Systolic 2020-09-15 07:45:00 171 mm[Hg] [facility] Oxygen saturation by 2020-09-15 07:45:00 92 /min [facility] Heart Rate 2020-09-15 07:45:00 74 /min [...] [facility] Heart Rate 2020-09-15 04:00:00 68 /min [facility] Respiratory rate 2020-09-15 04:00:00 18 /min [facility] Body Temperature 2020-09-15 04:00:00 98.4 [degF] [facility] BP Diastolic 2020-09-15 00:00:00 71 mm[Hg] [facility] BP Systolic 2020-09-15 00:00:00 140 mm[Hg] [facility] Oxygen saturation by 2020-09-15 00:00:00 94 /min [facility] Heart Rate 2020-09-15 00:00:00 72 /min [...] [facility] Heart Rate 2020-09-14 20:27:00 90 /min [facility] Respiratory rate 2020-09-14 20:27:00 20 /min [facility] Body Temperature 2020-09-14 20:27:00 98.5 [degF] [facility] BP Diastolic 2020-09-14 20:00:00 80 mm[Hg] [facility] BP Systolic 2020-09-14 20:00:00 180 mm[Hg] [facility] Oxygen saturation by 2020-09-14 20:00:00 92 /min [facility] Heart Rate 2020-09-14 20:00:00 90 /min [facility] Respiratory rate 2020-09-14 20:00:00 20 /min [facility] Body Temperature 2020-09-14 20:00:00 98.5 [degF] [facility] BP Diastolic 2020-09-14 15:47:00 82 mm[Hg] [facility] BP Systolic 2020-09-14 15:47:00 155 mm[Hg] [facility] Oxygen saturation by 2020-09-14 15:47:00 95 /min [facility] Heart Rate 2020-09-14 15:47:00 85 /min [facility] Respiratory rate 2020-09-14 15:47:00 16 /min [facility] Body Temperature 2020-09-14 15:47:00 98.1 [degF] [facility] BP Diastolic 2020-09-14 11:15:00 73 mm[Hg] [facility] BP Systolic 2020-09-14 11:15:00 165 mm[Hg] [facility] Oxygen saturation by 2020-09-14 11:15:00 93 /min [facility] Heart Rate 2020-09-14 11:15:00 89 /min [facility] [facility] Respiratory rate 2020-09-14 11:15:00 19 /min [facility] Body Temperature 2020-09-14 11:15:00 98.3 [degF] [facility] BP Diastolic 2020-09-14 07:49:00 67 mm[Hg] [facility] BP Systolic 2020-09-14 07:49:00 166 mm[Hg] [facility] Oxygen saturation by 2020-09-14 07:49:00 93 /min [facility] Pulse oximetry [facility] Heart Rate 2020-09-14 07:49:00 88 /min [facility] Respiratory rate 2020-09-14 07:49:00 18 /min [facility] Body Temperature 2020-09-14 07:49:00 97.9 [degF] [facility] BP Diastolic 2020-09-14 07:31:00 67 mm[Hg] [facility] BP Systolic 2020-09-14 07:31:00 166 mm[Hg] [facility] Oxygen saturation by 2020-09-14 07:31:00 93 /min [facility] Heart Rate 2020-09-14 07:31:00 88 /min [facility] Respiratory rate 2020-09-14 07:31:00 18 /min [facility] Body Temperature 2020-09-14 07:31:00 97.9 [degF] [facility] BP Diastolic 2020-09-14 04:00:00 74 mm[Hg] [facility] BP Systolic 2020-09-14 04:00:00 175 mm[Hg] [facility] Oxygen saturation by 2020-09-14 04:00:00 94 /min [facility] Heart Rate 2020-09-14 04:00:00 94 /min [...] [facility] Heart Rate 2020-09-14 00:00:00 90 /min [...] [facility] Heart Rate 2020-09-13 20:12:00 88 /min [...] [facility] Heart Rate 2020-09-13 20:00:00 88 /min [facility] Respiratory rate 2020-09-13 20:00:00 18 /min [facility] Body Temperature 2020-09-13 20:00:00 97.8 [degF] [facility] BP Diastolic 2020-09-13 16:11:00 82 mm[Hg] [facility] BP Systolic 2020-09-13 16:11:00 140 mm[Hg] [facility] Oxygen saturation by 2020-09-13 16:11:00 94 /min [facility] Patients [facility] Heart Rate 2020-09-13 16:11:00 78 /min [...] [facility] Heart Rate 2020-09-13 12:08:00 82 /min [...] [facility] Heart Rate 2020-09-13 11:16:00 79 /min [...] [facility] Heart Rate 2020-09-13 08:45:00 79 /min [...] [facility] Heart Rate 2020-09-13 04:00:00 87 /min [...] [facility] Heart Rate 2020-09-13 00:00:00 76 /min [...] [facility] Heart Rate 2020-09-12 22:28:00 96 /min [...] [facility] Heart Rate 2020-09-12 22:18:00 96 /min [facility] Respiratory rate 2020-09-12 22:18:00 18 /min [facility] Body Temperature 2020-09-12 22:18:00 97.9 [degF] [facility] BP Diastolic 2020-09-12 20:23:00 92 mm[Hg] [facility] BP Systolic 2020-09-12 20:23:00 150 mm[Hg] [facility] Oxygen saturation by 2020-09-12 20:23:00 96 /min [facility] Patients [facility] Heart Rate 2020-09-12 20:23:00 95 /min [facility] Respiratory rate 2020-09-12 20:23:00 18 /min [facility] Body Temperature 2020-09-12 20:23:00 97.9 [degF] [facility] Oxygen saturation by 2020-09-12 20:11:00 96 /min [facility] Patients [facility] Oxygen saturation by 2020-09-12 18:25:00 98 /min [facility] Oxygen saturation by 2020-09-12 15:35:00 98 /min [facility] Procedures Procedure Date / Time Performing Clinician Source Performed XR CHEST 1 VW PORTABLE 2021-07-12 01:01:53 [facility] COVID-19 ANTI-SPIKE IGG 2021-07-11 10:41:00 [facility] ANTIBODY TITER COVID-19 SEROLOGY PATIENT 2021-07-11 10:41:00 [facility] SURVEILLANCE HC COMPLETE BLD COUNT 2021-07-11 10:41:00 [facility] W/AUTO DIFF BASIC METABOLIC PANEL 2021-07-11 10:41:00 [facility] ESTIMATED GFR 2021-07-11 10:41:00 [facility] URINE CULTURE 2021-07-11 06:57[facility] 2021-07-11 04:07:00 [facility] MICROSCOPY, WITH REFLEX TO CULTURE POC GLUCOSE 2021-07-11 00:27:00 [facility] POC GLUCOSE 2021-07-10 14:52:00 [facility] HC COMPLETE BLD COUNT 2021-07-10 10:51:00 [facility] W/AUTO DIFF BASIC METABOLIC PANEL 2021-07-10 10:51:00 [facility] ESTIMATED GFR 2021-07-10 10:51:00 [facility] POC GLUCOSE 2021-07-10 02:09:00 [facility] CT CHEST WO CONTRAST 2021-07-09 21:47:19 [facility] HC COMPLETE BLD COUNT 2021-07-09 11:14:00 [facility] W/AUTO DIFF BASIC METABOLIC PANEL 2021-07-09 11:14:00 [facility] ESTIMATED GFR 2021-07-09 11:14:00 [facility] BLOOD CULTURE, AEROBIC & 2021-07-09 08:54:00 [facility] Trav R. TROPONIN T 2021-07-09 07:57:00 [facility] THYROID STIMULATING 2021-07-09 07:57:00 [facility] HORMONE T4, FREE 2021-07-09 07:57:00 [facility] LIPID PANEL 2021-07-09 07:57:00 [facility] INTERLEUKIN 6 2021-07-09 07:57:00 [facility] CRP HIGH SENSITIVITY 2021-07-09 07:57:00 [facility] LDH 2021-07-09 07:57:00 [facility] D-DIMER 2021-07-09 07:57:00 [facility] PROCALCITONIN 2021-07-09 07:57:00 [facility] PROTHROMBIN TIME WITH INR 2021-07-09 07:57:00 [facility] SEDIMENTATION RATE 2021-07-09 07:57:00 [facility] FERRITIN LEVEL 2021-07-09 07:57:00 [facility] ECG 12-LEAD 2021-07-09 06:58:43 [facility] XR CHEST 1 VW PORTABLE 2021-07-09 05:32:00 [facility] Trav R. TROPONIN T 2021-07-09 04:50:00 [facility] CT HEAD WO CONTRAST 2021-07-09 01:50:00 [facility] Trav RChun COVID-19 QUALITATIVE 2021-07-09 01:34:00 [facility] RT-PCR Trav RChun COVID-19 OMICRON VARIANT 2021-07-09 01:34:00 [facility] QUALITATIVE RT-PCR Trav RChun HC COMPLETE BLD COUNT 2021-07-09 01:34:00 [facility] W/AUTO DIFF Trav RChun PROTHROMBIN TIME WITH INR 2021-07-09 01:34:00 [facility] Trav RChun PARTIAL THROMBOPLASTIN 2021-07-09 01:34:00 [facility] TIME (PTT) Trav RChun BASIC METABOLIC PANEL 2021-07-09 01:34:00 [facility] Trav R. TROPONIN T 2021-07-09 01:34:00 [facility] B NATRIURETIC PEPTIDE 2021-07-09 01:34:00 [facility] Trav R. ESTIMATED GFR 2021-07-09 01:34:00 [facility] barry Ravi RChun ECG 12-LEAD 2021-07-08 22:51:26 [facility] barry Lock[facility] CT RENAL STONE PROTOCOL 2021-07-01 18:38:22 [facility] URINALYSIS 2021-07-01 18:13:00 [facility] HC COMPLETE BLD COUNT 2021-04-23 10:03:00 [facility] W/AUTO DIFF BASIC METABOLIC PANEL 2021-04-23 10:03:00 [facility] ESTIMATED GFR 2021-04-23 10:03:00 [facility] CT CARDIAC OVERREAD 2021-04-20 15:36:45 [facility] CTA CORONARY ARTERIES 2021-04-20 15:36:00 Rafy Tateammed [facility] W CONTRAST HC COMPLETE BLD COUNT 2021-04-20 11:45:00 [facility] W/AUTO DIFF BASIC METABOLIC PANEL 2021-04-20 11:45:00 [facility] ESTIMATED GFR 2021-04-20 11:45:00 [facility] POC GLUCOSE 2021-04-19 13:28:00 [facility] CV CARDIAC PET STRESS 2021-04-19 13:18:51 Bebeto [facility] TEST CV CARDIAC PET MYOCARDIAL 2021-04-19 13:18:51 Bebeto [facility] PERFUSION IMAGING TROPONIN 2021-04-19 09:43:00 Jaclyn Tate spital BASIC METABOLIC PANEL 2021-04-19 09:43:00 Bebeto [facility] ESTIMATED GFR 2021-04-19 09:43:00 Jaclyn Tate spital TTE LIMITED W CONTRAST, W 2021-04-18 17:20:00 Bebeto [facility] DOPPLER ([id number]) HC COMPLETE BLD COUNT 2021-04-18 14:31:00 [facility] W/AUTO DIFF BASIC METABOLIC PANEL 2021-04-18 14:31:00 [facility] ESTIMATED GFR 2021-04-18 14:31:00 [facility] B NATRIURETIC PEPTIDE 2021-04-18 09:20:00 Bebeto [facility] HC COMPLETE BLD COUNT 2021-04-16 08:35:00 [facility] W/AUTO DIFF BASIC METABOLIC PANEL 2021-04-16 08:35:00 [facility] ESTIMATED GFR 2021-04-16 08:35:00 [facility] POC GLUCOSE 2021-04-15 15:09:00 [facility] BASIC METABOLIC PANEL 2021-04-14 09:00:00 [facility] ESTIMATED GFR 2021-04-14 09:00:00 [facility] HC COMPLETE BLD COUNT 2021-04-14 08:40:00 [facility] W/AUTO DIFF PARTIAL THROMBOPLASTIN 2021-04-14 08:40:00 Bebeto [facility] TIME (PTT) PARTIAL THROMBOPLASTIN 2021-04-13 22:47:00 Bebeto [facility] TIME (PTT) HC COMPLETE BLD COUNT 2021-04-13 15:52:00 [facility] W/AUTO DIFF HC COMPLETE BLD COUNT 2021-04-13 11:34:00 [facility] W/AUTO DIFF SMEAR REVIEW 2021-04-13 11:34:00 [facility] HC COMPLETE BLD COUNT 2021-04-13 09:55:00 [facility] W/AUTO DIFF BASIC METABOLIC PANEL 2021-04-13 09:55:00 [facility] B NATRIURETIC PEPTIDE 2021-04-13 09:55:00 Bebeto [facility] ESTIMATED GFR 2021-04-13 09:55:00 [facility] PARTIAL THROMBOPLASTIN 2021-04-13 09:55:00 Bebeto [facility] TIME (PTT) TROPONIN 2021-04-13 09:00:00 [facility] PARTIAL THROMBOPLASTIN 2021-04-13 02:20:00 Bebeto [facility] TIME (PTT) TROPONIN 2021-04-12 23:00:00 Char Palomo spital TROPONIN 2021-04-12 15:34:00 [facility] PROTHROMBIN TIME WITH INR 2021-04-12 15:34:00 Attzulay [facility] PARTIAL THROMBOPLASTIN 2021-04-12 15:34:00 Bebeto [facility] TIME (PTT) ANTI XA APIXABAN 2021-04-12 15:34:00 Rafy Tateammilan Burns ospital TTE COMPLETE, WO 2021-04-12 14:14:00 Rafy Tateammilan Burns ospital CONTRAST, W DOPPLER ([id number]) TROPONIN 2021-04-12 09:21:00 Char Palomo spital B NATRIURETIC PEPTIDE 2021-04-12 09:21:00 Char Palomo [facility] MAGNESIUM LEVEL 2021-04-12 09:21:00 [facility] PHOSPHORUS LEVEL 2021-04-12 09:21:00 [facility] XR CHEST 1 VW PORTABLE 2021-04-12 08:46:00 [facility] ECG 12-LEAD 2021-04-12 08:03:09 [facility] COVID-19 ANTI-SPIKE IGG 2021-04-12 08:01:00 [facility] ANTIBODY TITER COVID-19 SEROLOGY PATIENT 2021-04-12 08:01:00 [facility] SURVEILLANCE HC COMPLETE BLD COUNT 2021-04-12 08:01:00 [facility] W/AUTO DIFF BASIC METABOLIC PANEL 2021-04-12 08:01:00 [facility] LIPID PANEL 2021-04-12 08:01:00 [facility] THYROID STIMULATING 2021-04-12 08:01:00 [facility] HORMONE T4, FREE 2021-04-12 08:01:00 [facility] ESTIMATED GFR 2021-04-12 08:01:00 [facility] RESPIRATORY PATHOGEN 2021-04-12 07:27:00 Char Palomo [facility] PANEL WITH COVID-19 RT-PCR US DUPLEX VENOUS LOWER 2021-03-10 01:23:00 [facility] EXTREMITY BILATERAL XR CHEST 1 VW 2021-03-10 00:19:00 CelestinOfelia spital COMPREHENSIVE METABOLIC 2021-03-10 00:17:00 [facility] PANEL CBC WITH PLATELET AND 2021-03-10 00:17:00 [facility] DIFFERENTIAL B NATRIURETIC PEP, I-STAT 2021-03-10 00:17:00 [facility] TROPONIN, I-STAT 2021-03-10 00:17:00 [facility] ESTIM[facility] GFR 2021-03-10 00:17:00 [facility] MANUAL DIFFERENTIAL 2021-03-10 00:17:00 [facility] ECG ED PRELIMINARY 2021-03-10 00:16:14 [facility] INTERPRETATION ECG 12-LEAD 2021-03-09 23:55:17 [facility] spital HC COMPLETE BLD COUNT 2021-02-23 09:51:00 [facility] W/AUTO DIFF BASIC METABOLIC PANEL 2021-02-23 09:51:00 [facility] ESTIMATED GFR 2021-02-23 09:51:00 [facility] HC COMPLETE BLD COUNT 2021-02-22 09:32:00 [facility] W/AUTO DIFF BASIC METABOLIC PANEL 2021-02-22 09:32:00 [facility] ESTIMATED GFR 2021-02-22 09:32:00 [facility] HC COMPLETE BLD COUNT 2021-02-21 09:50:00 [facility] W/AUTO DIFF BASIC METABOLIC PANEL 2021-02-21 09:50:00 [facility] LIPID PANEL 2021-02-21 09:50:00 [facility] ESTIMATED GFR 2021-02-21 09:50:00 [facility] ANTI-SPIKE IGG 2021-02-20 23:58:00 [facility] ANTIBODY TITER COVID-19 SEROLOGY PATIENT 2021-02-20 23:58:00 [facility] SURVEILLANCE THYROID STIMULATING 2021-02-20 23:58:00 [facility] HORMONE T4, FREE 2021-02-20 23:58:00 [facility] FERRITIN LEVEL 2021-02-20 23:58:00 [facility] LDH 2021-02-20 23:58:00 [facility] SEDIMENTATION RATE 2021-02-20 23:58:00 [facility] CRP HIGH SENSITIVITY 2021-02-20 23:58:00 [facility] INTERLEUKIN 6 2021-02-20 23:58:00 [facility] PROCALCITONIN 2021-02-20 23:58:00 [facility] D-DIMER 2021-02-20 23:58:00 [facility] PROTHROMBIN TIME WITH INR 2021-02-20 23:58:00 [facility] TROPONIN, I-STAT 2021-02-20 15:35:00 [facility] COVID-19 QUALITATIVE 2021-02-20 14:41:00 [facility] ANGIOGRAM PE CHEST 2021-02-20 13:52:50 Osmel Fowler [facility] US DUPLEX VENOUS LOWER 2021-02-20 12:59:12 Isaac Quiles [facility] EXTREMITY RIGHT Narendra URINALYSIS 2021-02-20 12:35:00 Isaac Quiles spital Narendra XR CHEST 1 VW PORTABLE 2021-02-20 12:15:13 Isaac Quiles [facility] Narendra BASIC METABOLIC PANEL 2021-02-20 12:10:00 Isaac Quiles [facility] Narendra ESTIMATED GFR 2021-02-20 12:10:00 Isaac Quiles spital Narendra RESPIRATORY PATHOGEN 2021-02-20 12:05:00 [facility] PANEL WITH COVID-19 Narendra RT-PCR COMPREHENSIVE METABOLIC 2021-02-20 11:55:00 Isaac Quiles [facility] PANEL Narendra CBC WITH PLATELET AND 2021-02-20 11:55:00 Isaac Quiles [facility] DIFFERENTIAL Narendra CREATINE KINASE, TOTAL 2021-02-20 11:55:00 Isaac Quiles [facility] (CPK) Narendra TROPONIN, I-STAT 2021-02-20 11:55:00 Vadim Calix [facility] ESTIMATED GFR 2021-02-20 11:55:00 Isaac Quiles spital Narendra PROTHROMBIN TIME WITH 2021-02-20 11:55:00 Isaac Quiles [facility] INR, I-STAT Narendra MANUAL DIFFERENTIAL 2021-02-20 11:55:00 Isaac Quiles [facility] Narendra ECG 12-LEAD 2021-02-20 11:33:15 Isaac Quiles spital Narendra ECG ED PRELIMINARY 2021-02-20 11:32:10 Isaac Quiles [facility] INTERPRETATION Narendra PHYSICIAN ORDERS 2021-01-24 05:01:00 Doctor Bryson, [facility] Name Medical [place] CT CERVICAL SPINE WO 2021-01-16 05:11:15 [facility]z [facility] CONTRAST [facility] CT HEAD WO CONTRAST 2021-01-16 05:11:15 Mumtaz Swanson [facility] [place] NOTICE OF PRIVACY 2021-01-16 04:10:39 [facility] [place] CT HEAD WO CONTRAST 2021-01-11 01:54:48 Sushma Juarez [facility] [place] CONSENT/REFUSAL FOR 2021-01-10 23:21:01 Doctor Bryson, [facility] DIAGNOSIS AND TREATMENT [place] [facility] NOTICE OF PRIVACY 2020-12-29 19:06:49 Doctor [facility]assigned[facility] CONSENT/REFUSAL FOR 2020-12-29 19:06:22 Doctor Unassigned, [facility] DIAGNOSIS AND TREATMENT [facility] ASSIGNMENT OF BENEFITS 2020-12-29 19:06:04 Doctor [facility]assigned, [facility] ASSIGNMENT OF BENEFITS 2020-12-29 17:51:14 Doctor Unassigned, Un [facility] [place] [facility] HC COMPLETE BLD COUNT 2020-12-03 10:00:00 [facility] W/AUTO DIFF BASIC METABOLIC PANEL 2020-12-03 09:00:00 [facility] ESTIMATED GFR 2020-12-03 09:00:00 [facility] MRI BRAIN WO CONTRAST 2020-12-02 17:48:00 [facility] BASIC METABOLIC PANEL 2020-12-02 08:52:00 [facility] ESTIMATED GFR 2020-12-02 08:52:00 [facility] HC COMPLETE BLD COUNT 2020-12-02 08:38:00 [facility] W/AUTO DIFF US CAROTID DUPLEX 2020-12-01 20:45:00 [facility] BILATERAL TTE COMPLETE, WO 2020-12-01 16:39:21 [facility] CONTRAST, W DOPPLER ([id number]) HC COMPLETE BLD COUNT 2020-12-01 09:30:00 [facility] W/AUTO DIFF BASIC METABOLIC PANEL 2020-12-01 09:00:00 [facility] ESTIMATED GFR 2020-12-01 09:00:00 [facility] LIPID PANEL 2020-12-01 02:15:00 [facility] THYROID STIMULATING 2020-12-01 02:15:00 [facility] HORMONE T4, FREE 2020-12-01 02:15:00 [facility] TROPONIN 2020-12-01 02:15:00 [facility] HEMOGLOBIN A1C 2020-12-01 01:15:00 [facility] URINALYSIS, AUTOMATED 2020-11-30 22:23:00 [facility] WITH MICROSCOPY Олег COVID-19 QUALITATIVE 2020-11-30 21:44:00 [facility] RT-PCR [facility] CT HEAD WO CONTRAST 2020-11-30 19:03:[address] [facility] CT ANGIOGRAM PE CHEST 2020-11-30 19:03:13 [facility] ECG ED PRELIMINARY 2020-11-30 17:08:13 [facility] INTERPRETATION [facility] HC COMPLETE BLD COUNT 2020-11-30 16:15:00 [facility] W/AUTO DIFF [facility] PROTHROMBIN TIME WITH INR 2020-11-30 16:15:00 [place] [facility] PARTIAL THROMBOPLASTIN 2020-11-30 16:15:00 [facility] TIME (PTT) [facility] COMPREHENSIVE METABOLIC 2020-11-30 16:15:00 [facility] Elliot [facility] PANEL [facility] TROPONIN 2020-11-30 16:15:00 [facility] NATRIURETIC PEPTIDE 2020-11-30 16:15:00 [facility] ESTIMATED GFR 2020-11-30 16:15:[address] [facility] [address] [facility] D-DIMER 2020-11-30 16:15:00 [place] [facility] ECG 12-LEAD 2020-11-30 15:58:05 [facility] Computed tomography of 2020-09-20 00:00:00 RUSTAM Bruno - chest with contrast Patients [facility] Exploratory laparotomy 2020-09-15 00:00:00 RUSTAM Bruno - [facility] CT of abdomen and pelvis 2020-03-02 00:00:00 RUSTAM Arora - without contrast Patients [facility] EXTERNAL PROVIDER RECORDS 2019-01-27 05:01:00 Doctor Unassigned, [facility] Plan of Care Planned Activity Planned Date Details Comments Source Future Scheduled 2021-08-08 65+ [facility]OCOCCAL [facility] Test 13:10:32 VACCINE (1 of 4 - PCV13) [code = 65+ PNEUMOCOCCAL VACCINE (1 of 4 - PCV13)] Future Scheduled 2021-08-08 SHINGLES [facility]IN[facility] (#[facility] 13:10:32 [code = SHINGLES VACCINES (#1)] Future Scheduled 2021-08-08 COVID-19 VACCINE (3 - Me [facility] Test 13:10:32 Booster for Moderna series) [code = COVID-19 VACCINE (3 - Booster for Moderna series)] Encounters Start End Encounter Admission Attending Care Care Encounter Source Date/Time Date/Time Type Type Clinicians Facility Department ID 2021-04-30 Emergency [facility] [id number] [facility]30 [facility] [id number] [facility] 08:16:39 [facility] 2020-09-12 Inpatient [facility] [id number] [facility]. 15:27:00 -[id number] [facility] 2021-09-16 2021-09-16 Emergency EM Thomas, HCACL TERRI [id number] [facility] 04:48:00 10:42:00 Justice [facility] 2021-09-16 2021-09-16 Emergency EM Thomas, HCACL HC[facility]L [id number] [facility] 04:48:00 10:42:00 Justice 13 [facility] 2021-09-05 2021-09-05 Emergency EM Thomas, HCACL HC[facility] [id number] [facility] 15:16:00 17:36:00 Justice 84 [facility] 2021-09-05 2021-09-05 Emergency EM Thomas, HCACL TERRI [id number] [facility] 15:16:00 17:36:00 Justice [facility] 2021-07-08 2021-07-13 [facility] Trav Arias.2.84 0.1 [id number] Methodi 16:46:00 12:51:00 Encounter Vadim Calix [id number] 3.430.2.7 Hospit a .[id number] l .8 2021-07-08 2021-07-08 Travel 1.2.840.1 [id number] [facility]i 00:00:00 00:00:[id number] 3.430.2.7 0.2.7.3.698 Ho spita .[id number] 084.8 l .8 2021-07-01 2021-07-01 Emergency Renee, 1.2.840.1 [id number] [facility]i 11:41:00 13:43:[id number] 3.430.2.7 Hospit a .[id number] l .8 2021-06-18 2021-06-18 Outpatient 2030_Biopsy [facility] [id number] [place] 12:38:00 12:38:00 [id number] [facility] 2021-05-03 2021-05-03 [place] Jessica 1.2.840.1 [id number] 2099 [id number] Methodi 00:00:00 00:00:00 Ros Fernandez [address]63.1.[address] 3.430.2.7 Hospit a .3.874298 l .8 2021-04-11 2021-04-23 [facility] Anupam 1.2.840.1 [id number] Methodi 23:25:00 17:41:00 Encounter Vadim Briscoe 78605.1.[address] 3.430.2.7 Hospit a .3.825629 l .8 2021-04-19 2021-04-19 [facility] 1.2.840.1 [id number] 62724 48568 Methodi 07:00:00 23:59:00 Encounter Jaclyn 58241.1.1 627 s t 3.430.2.7 Hospit a .3.849938 l .8 2021-03-09 2021-03-09 Emergency Ofelia Celestin 1.2.840.1 [id number] 2 [id number] Methodi 18:40:00 21:02:[address] 3.430.2.7 Hospit a .3.001689 l .8 2021-03-09 2021-03-09 Travel 1.2.840.1 1.2.343.005 9844 917749 Methodi 00:00:00 00:00:[address] 3.430.2.7 0.2.7.3.698 Ho spita .3.812135 084.8 l .8 2021-02-20 2021-02-23 [facility] 1.2.840.1 104 992044 [id number] Methodi 06:07:00 13:24:00 Encounter Vadim Calix 60980.1.[address] 3.430.2.7 Hospit a .3.322770 l .8 2021-02-20 2021-02-20 Travel 1.2.840.1 1.2.980.000 9994 427155 Methodi 00:00:00 00:00:[address] 3.430.2.7 0.2.7.3.698 Ho spita .3.138947 084.8 l .8 2021-01-30 2021-01-30 Outpatient R [facility] [id number] 8006 [facility] 14:30:00 14:30:00 WONDIFUL ity o f [facility] 2021-01-24 2021-01-24 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 [facility] 1.2.8 40.114 [id number] [facility] 15:50:12 16:05:12 Visit David Cruz 350.1.13.1 0 ity john [place] [phone] [address] 2021-01-24 2021-01-24 Outpatient R [facility] [id number] -20 Univers 16:00:00 16:00:00 737777 ity of [facility] 2021-01-24 2021-01-24 [facility] 09911 27606 Univers 16:00:00 16:00:00 DAVID ity of [facility] 2021-01-24 2021-01-24 Orders Doctor DAVID 1.2.840.114 [id number] 73 Univers 00:00:00 00:00:00 Only Unassigned, GREGORY 350.1.13.10 ity of [place] [facility] 4.2.7.2.686 Flash as [phone] [facility] [address] 2021-01-15 2021-01-16 Emergency , [facility] 1.2.862.208 4774 8437 Univers 23:22:00 03:17:00 Mumtaz Tineo 350.1.13.10 i ty of [place] 544.7609384 [facility] [address] 2021-01-10 2021-01-10 Emergency Sagar Holland [facility] 1.2.840.114 85 896377 Univers 18:49:00 22:03:00 May Tineo 350.1.13.10 i [place] 152.0079666 [facility] [address] 2020-12-29 2020-12-29 [facility] 1.2.840.114 58831 847 Univers 14:04:19 23:59:00 Encounter Melody Tineo 350.1.13.10 ity of [place] [phone] [facility] [address] 2020-12-29 2020-12-29 [facility] 1.2.840.114 69309 846 Univers 14:00:00 14:03:00 Encounter Melody Tineo 350.1.13.10 ity of [place].7.2.[place] [phone] [facility] [address] 2020-12-29 2020-12-29 Outpatient [facility] [id number] -20 Univers 14:00:00 14:00:00 MELODY 318765 [facility] 2020-12-29 2020-12-29 [facility] 1.2.840.114 [id number] 81 Univers 12:52:54 13:35:06 Visit Melody [facility] 350.1.13.10 i ty of [place] 4.2.7.2.686 Flash as Professio [phone] Me dical [address] Office [facility] One 2020-12-29 2020-12-29 [facility] 1.2.840.114 504146 81 12:52:54 13:35:06 Visit Melody [facility] 350.1.13.10 [place] 4.2.7.2.686 Professio [phone] [address] One 2020-12-29 2020-12-29 Outpatient R [facility] [id number] 603 Univers 13:00:00 13:00:00 MELODY [facility] 2020-12-29 2020-12-29 Orders Doctor DAVID 1.2.840.114 [id number] Univers 00:00:00 00:00:00 Only Unassigned, GREGORY 350.1.13.10 ity of [place] [facility] 4.2.7.2.686 Flash as 727.1986149 [address] 2020-11-30 2020-12-04 [facility] Elliot Parkinson 1.2.840.1 [id number] Methodi 10:51:00 15:23:00 Encounter Vadim Calix 21416.1.[address] 3.430.2.7 Hospit a .3.008866 l .8 2020-11-30 2020-11-30 Travel 1.2.840.1 1.2.284.745 7380 286114 Methodi 00:00:00 00:00:[address] 3.430.2.7 0.2.7.3.698 Ho spita .3.719957 084.8 l .8 2020-09-12 2020-09-28 Discharged 1 SAINI, [facility] A[address] 19:18:00 13:20:00 Inpatient SOUHEIL Patients 99 [facility] 2020-03-02 2020-03-02 Outpatient [facility] [id number] 14:00:00 14:00:00 -[id number] [place] - Patient [facility] 2020-03-02 2020-03-02 Registered 3 SAINI, [facility] M2316 [address] 13:32:00 13:32:00 Clinic JEANNINE Patients 29 [facility] 2020-02-24 2020-02-24 Outpatient [facility] [id number] 14:00:00 14:00: -[id number] [place] - Patient [facility] 2020-02-23 2020-02-23 Outpatient [facility] [id number] [address] 12:00:00 12:00:00 -[id number] [place] - Patient [facility] 2019-01-27 2019-01-27 Orders Doctor DAVID 1.2.840.114 [id number] Univers 00:00:00 00:00:00 Only Unassigned, GREGORY 350.1.13.10 ity of [place] [facility] 4.2.7.2.686 Flash as [phone] [facility] [address] Results Test Description Test Time Test Comments Results Result [facility] e Comments - CT C-SPINE W/O 2021-09-16 CONT 00:00:00 [facility] : 1930 Sex: M Name: JUSTICE HARDY [facility] : 1930 Age/S: 89 / M [address] [place] [address] Unit #: [id number] Loc: [place] [address] Phys: Kezia Tolbert Acct: [id number] Dis Date: Status: PRE ER PHONE #: [phone] Exam Date: 09/16/2021 0538 FAX #: [phone] Reason: FALL OUT OF BED, NECK PAIN EXAMS: CPT CODE: [id number] CT C-SPINE W/O CONT 80620 PROCEDURE INFORMATION: Exam: CT Cervical Spine Without [...] - CT HEAD/BRAIN 2021-09-16 W/O CONT 00:00:00 [facility] : 1930 Sex: M Name: JUSTICE HARDY [facility] : 1930 Age/S: 89 / M [address] [place] [address] Unit #: [id number] Loc: [place] [address] Phys: Kezia Tolbert APRNNP Acct: [id number] Dis Date: Status: PRE ER PHONE #: [phone] Exam Date: 09/16/2021537 FAX #: [phone] Reason: FALL OUT OF BED, HEAD INJURY EXAMS: CPT CODE: [id number] CT HEAD/BRAIN W/O CONT 70183 PROCEDURE INFORMATION: Exam: CT Head Without Contrast [...] RT(R)(CT) CTDI: DLP: Trnscb Date/Time: 09/16/2021 (604) [email or web address] Orig Print D/T: S: 09/16/2021 (604) PAGE 1 Signed Report - XR CHEST 1 V 2021-09-16 00:00:00 [facility] : 1930 Sex: M FAX: Shadi Rosales MD [phone] [place]: St: REG FAX: Kezia Tolbert APR [phone] Name: JUSTICE HARDY [facility] : 1930 Age/S: 89/M [address] [place] [address] Unit #: [id number] Loc: [place] [address] Phys: Kezia Tolbert Acct: [id number] Dis Date: Status: REG ER PHONE #: [phone] Exam Date: 09/16/2021 0601 FAX #: [phone] Reason: FALL OUT OF BED EXAMS: CPT CODE: [id number] XR CHEST 1 V 11979 PROCEDURE INFORMATION: Exam: XR Chest Exam date [...] Report - XR PELVIS 07/012021-09-16 VIEWS 00:00:00 [facility] : 1930 Sex: M FAX: Devon MachoShadi Cardoza MD [phone] [place]: St: REG FAX: Kezia Tolbert APR [phone] Name: JORGE HARDYGO [facility] : 1930 Age/S: 89/M [address] [place] [address] Unit #: [id number] Loc: [place] [address] Phys: Kezia Tolbert APRNNP Acct: [id number] Dis Date: Status: REG ER PHONE #: [phone] Exam Date: 09/16/2021 0603 FAX #: [phone] Reason: PELVIC PAIN EXAMS: CPT CODE: [id number] XR PELVIS 1/2 VIEWS 37168 PROCEDURE INFORMATION: Exam: XR Pelvis Exam date [...] Report - XR T-SPINE 3V 2021-09-16 00:00:00 [facility] : 1930 Sex: M FAX: Shadi Rosales MD [phone] [place]: St: REG FAX: Kezia Tolbert APR [phone] Name: JUSTICE HARDY [facility] : 1930 Age/S: 89/M [address] [place] [address] Unit #: [id number] Loc: [place] [address] Phys: Kezia Tolbert APRNNP Acct: [id number] Dis Date: Status: REG ER PHONE #: [phone] Exam Date: 09/16/2021 06 FAX #: [phone] Reason: BACK PAIN EXAMS: CPT CODE: [id number] XR T-SPINE 3V 18971 PROCEDURE INFORMATION: Exam: XR Thoracic Spine Exam [...] Fang M.D. CC: Shadi Pritchard MD; Kezia POSADA melchor Technologist: RT Yolanda(Rebecca) Trnscrd Date/Time/By: 09/16/2021 (629) : By: [email or web address] Orig Print D/T: S: 09/16/2021 (629) PAGE 1 Signed Report - XR PELVIS 07/012021-09-05 VIEWS 00:00:00 [facility] JUSTICE [facility] : 1930 Sex: M FAX: Justice Guzman MD [phone] [place]: St: [facility] FAX: Shadi Rosales MD [phone] Name: JUSTICE HARDY [facility] : 1930 Age/S: 89/M [address] [place] [address] Unit #: [id number] Loc: [place] [address] Phys: Justice Guzman MD Acct: [id number] Dis Date: Status: REG ER PHONE #: [phone] Exam Date: 09/05/2021 1714 FAX #: [phone] Reason: fall EXAMS: CPT CODE: [id number] XR PELVIS 1/2 VIEWS 88480 PROCEDURE INFORMATION: Exam: XR Pelvis Exam date [...] Luke(R) Trnscrd Date/Time/By: 09/05/2021 (1721) : By: [email or web address] Orig Print D/T: S: 09/05/2021 (0484) PAGE 1 Signed Report - CT HEAD/BRAIN 2021-09-05 W/O CONT 00:00:00 [facility] : 1930 Sex: M Name: JUSTICE HARDY [facility] : 1930 Age/S: 89 / M [address] [place] [address] Unit #: [id number] Loc: [place] [address] Phys: NancyTierney N [facility] Acct: [id number] Dis Date: Status: REG ER PHONE #: [phone] Exam Date: 09/05/2021 1604 FAX #: [phone] Reason: FALL FROM CHAIR, HEAD PAIN, ON ELIQUIS EXAMS: CPT CODE: [id number] CT HEAD/BRAIN W/O CONT 32921 PROCEDURE INFORMATION: Exam: CT Head Without Contrast [...] 1 Signed Report (CONTINUED) Name: JUSTICE HARDY [facility] : 1930 Age/S: 89 / M [address] [place] [address] Unit #: [id number] Loc: [place] [address] Phys: Tierney Cruz Acct: [id number] Dis Date: Status: REG ER PHONE #: [phone] Exam Date: 09/05/2021 1604 FAX #: [phone] Reason: FALL FROM CHAIR, HEAD PAIN, ON ELIQUIS EXAMS: CPT CODE: [id number] CT HEAD/BRAIN W/O CONT 47160 <Continued> CC: Tierney Cruz Technologist:RT Mariel(R)(CT) CTDI: DLP: Trnscb Date/Time: 09/05/2021 (1622) [email or web address] Orig Print D/T: S: 09/05/2021 (162) PAGE 2 Signed Report Urine culture 2021-07-11 07:18:43 Test Item Value Reference Range Interpretation Comme nts Urine culture (test code = 0089279) SEE COMMENT Bacteriuria screen negative. [facility] xnmaata7311-73-79 00:28:29 Test Item Value Reference Range Interpretation Comments POC glucose (test code 140 mg/dL 65-99 H Opera tor Name: Theodore = 57031-5) Ga ID : [id number] able: [facility] Notified survey research manager Interpretation Abnormal (test code = 83294-0) [facility] 12 bslt1829-47-68 21:20:43 Test Item Value Reference Range Interpretation Comments Ventricular rate (test code = 253) Atrial rate (test code = 255) SD interval (test code = 266) QRSD interval [...] for LVH, may be normal variant ( [place] product )-Septal infarct , age undetermined-Abnormal ECG- [facility]v stress jveq0958-56-91 11:08:47 Test Item Value Reference Range Interpretation Comments Resting HR (test code = 2762727541) Resting BP (test code 132&63 = 1863964235) Peak MET Achieved (test code = 3405135663) Protocol Name (test Lexiscan code = 8979987473) Time in Exercise 00:01:00 Phase (test code = 6378699526) Max Systolic BP (test code = 7580380380) Max Diastolic BP (test code = 0902389104) Max Heart Rate (test code = 1399735460) Max Predicted Heart Rate (test code = 9864327087) Target HR Formula (220 - Age)*100% (test code = 2372675867) Test Indication (test Screening for CAD code = 8786125568) Arrhy During Ex (test code = 8045589017) ECG Interp Before EX (test code = 9006539575) ECG Interp During Ex (test code = 4445217060) Ex Summary Comment (test code = 2602667349) Overall HR Response to Exercise (test code = 7222113972) Overall BP Response To Exercise (test code = 9357046478) Reason for Protocol Complete Termination (test code = 8332497349) Stress Test -Waveform interpreted in Impression (test code report associated with = 1729779105) image study. No interpretation is provided as part of this Stress ECG report.- [facility] HEAD WO AQKYTZOY4156-46-63 01:56:56 No acute intracranial abnormality. CT HEAD [...] and mastoidair cells are clear. Left pseudophakia. [facility], Radiant Results Inft User - [...] cells are clear. Left pseudophakia.IMPRESSIONNo acute intracranial abnormality.[facility] leukocytes automated count (number/volume)2020-09-28 05:25:00 Test Item Value Reference Range Interpretation Comments White Blood Count (test code = 6690-2) 10.37 4.8-10.8 [facility] count (number/volume)2020-09-28 05:25:00 Test Item Value Reference Range Interpretation Comments Red Blood Count (test code = 789-8) 3.00 4.3-5.7 [facility] hemoglobin measurement (moles/volume)2020-09-28 05:25:00 Test Item Value Reference Range Interpretation Comments Hemoglobin (test code = 87358-6) 9.1 14.0-18.0 [facility] hematocrit (volume fraction)2020-09-28 05:25:00 Test Item Value Reference Range Interpretation Comments Hematocrit (test code = 4544-3) 26.0 38.2-49.6 [facility] eryth[facility] mean corpuscular sbzpet3176-26-76 05:25:00 Test Item Value Reference Range Interpretation Comments Mean Corpuscular Volume (test code = 86.7 81-99 787-2) [facility] mean corpuscular hemoglobin (mass per erythrocyte)2020-09-28 05:25:00 Test Item Value Reference Range Interpretation Comments Mean Corpuscular Hemoglobin (test code 30.3 28-32 = 785-6) [facility] eryth[facility] mean corpuscular hemoglobin concentration measurement (mass/volume)2020-09-28 05:25:00 Test Item Value Reference Range Interpretation Comments Mean Corpuscular Hemoglobin Concent 35.0 31-35 (test code = 786-4) [facility] NortheastRDW VpjVt-Uvf4455-94-01 05:25:00 Test Item Value Reference Range Interpretation Comments Red Cell Distribution Width (test code 16.1 11.7-14.4 = 77058-2) [facility] platelet count (count/volume)2020-09-28 05:25:00 Test Item Value Reference Range Interpretation Comments Platelet Count (test code = 777-3) 373 532-766 [facility] segmented neutrophil count as percentage of total xbiuynikyp1888-75-36 05:25:00 Test Item Value Reference Range Interpretation Comments Neutrophils (%) (Auto) (test code = 77.9 38.7-80.0 37584-3) [facility] lymphocyte count as percentage ot total dygyufjctz4801-56-11 05:25:00 Test Item Value Reference Range Interpretation Comments Lymphocytes (%) (Auto) (test code = 12.3 18.0-39.1 736-9) [facility] monocyte count as percentage of total azhaxdgoya0362-77-49 05:25:00 Test Item Value Reference Range Interpretation Comments Monocytes (%) (Auto) (test code = 6.4 4.4-11.3 5905-5) [facility] eosinophil count as percentage of total tskbbapqfx0530-20-58 05:25:00 Test Item Value Reference Range Interpretation Comments Eosinophils (%) (Auto) (test code = 1.8 0.0-6.0 713-8) [facility] basophil count as percentage of total kttpwhlmid5709-33-37 05:25:00 Test Item Value Reference Range Interpretation Comments Basophils (%) (Auto) (test code = 0.4 0.0-1.0 706-2) [facility] NortheastFluoroscopic procedure less than one hour uupsxnyi8329-22-69 05:25:00 Test Item Value Reference Range Interpretation Comments IM GRANULOCYTES % (test code = IM 1.2 0.0-1.0 GRANULOCYTES %) [facility] neutrophil count 2020-09-28 05:25:00 Test Item Value Reference Range Interpretation Comments Neutrophils # (Auto) (test code = 8.1 2.1-6.9 751-8) [facility] lymphocytes count (number/volume) 2020-09-28 05:25:00 Test Item Value Reference Range Interpretation Comments Lymphocytes # (Auto) (test code = 1.3 1.0-3.2 02137-5) [facility] monocytes automated count (number/volume)2020-09-28 05:25:00 Test Item Value Reference Range Interpretation Comments Monocytes # (Auto) (test code = 742-7) 0.7 0.2-0.8 [facility]Autom[facility] blood eosinophil count 2020-09-28 05:25:00 Test Item Value Reference Range Interpretation Comments Eosinophils # (Auto) (test code = 0.2 0.0-0.4 711-2) [facility]Autom[facility] blood basophil count (count/volume)2020-09-28 05:25:00 Test Item Value Reference Range Interpretation Comments Basophils # (Auto) (test code = 704-7) 0.0 0.0-0.1 [facility] NortheastFluoroscopic procedure less than one hour qvbwznfl7580-75-15 05:25:00 Test Item Value Reference Range Interpretation Comments Absolute Immature Granulocyte (auto 0.12 0-0.1 (test code = Absolute Immature Granulocyte (auto) [facility] sodium measurement (moles/volume)2020-09-28 05:25:00 Test Item Value Reference Range Interpretation Comments Sodium Level (test code = 2951-2) 132 136-145 [facility] plasma potassium measurement (moles/volume)2020-09-28 05:25:00 Test Item Value Reference Range Interpretation Comments Potassium Level (test code = 2823-3) 3.3 3.5-5.1 [facility] chloride measurement (moles/volume)2020-09-28 05:25:00 Test Item Value Reference Range Interpretation Comments Chloride Level (test code = 2075-0) 106 98-107 [facility] plasma carbon dioxide, total measurement (moles/volume)2020-09-28 05:25:00 Test Item Value Reference Range Interpretation Comments Carbon Dioxide Level (test code = -29 8-9) [facility] or plasma anion zen7879-17-96 05:25:00 Test Item Value Reference Range Interpretation Comments Anion Gap (test code = 99648-2) 9.3 8-16 [facility] plasma urea nitrogen measurement (mass/volume)2020-09-28 05:25:00 Test Item Value Reference Range Interpretation Comments Blood Urea Nitrogen (test code = 7- 3094-0) [facility] creatinine measurement (mass/volume)2020-09-28 05:25:00 Test Item Value Reference Range Interpretation Comments Creatinine (test code = 2160-0) 0.83 0.72-1.25 [facility] plasma urea nitrogen/creatinine mass kvrpg4288-44-96 05:25:00 Test Item Value Reference Range Interpretation Comments BUN/Creatinine Ratio (test code = 6 3097-3) [facility]Estimated glomerular filtration rate (GFR) mwqwbmeayltki6729-97-95 05:25:00 Test Item Value Reference Range Interpretation Comments Estimat Glomerular > 60 See_Comment [Automat ed message] The Filtration Rate (test system which generated code = 526184600) this resul t transmitted reference range : 60-. The reference r duane was not used to int erpret this result as normal/abnormal . [facility] NortheastGlucose hoirbphxucv2775-90-41 05:25:00 Test Item Value Reference Range Interpretation Comments Glucose Level (test code = HVH2547) 104 74-118 [facility] calcium measurement (mass/volume)2020-09-28 05:25:00 Test Item Value Reference Range Interpretation Comments Calcium Level (test code = 62007-6) 7.4 8.4-10.2 [facility] plasma total bilirubin measurement (mass/volume)2020-09-28 05:25:00 Test Item Value Reference Range Interpretation Comments Total Bilirubin (test code = 1975-2) 0.7 0.2-1.2 [facility] NortheastFluoroscopic procedure less than one hour bbkumppo4196-14-54 05:25:00 Test Item Value Reference Range Interpretation Comments Aspartate Amino Transf (AST/SGOT) (test 74 5-34 code = Aspartate Amino Transf (AST/SGOT)) [facility] alanine aminotransferase measurement (enzymatic activity/volume)2020-09-28 05:25:00 Test Item Value Reference Range Interpretation Comments Alanine Aminotransferase (ALT/SGPT) 107 0-55 (test code = 1742-6) [facility] plasma protein measurement (mass/volume)2020-09-28 05:25:00 Test Item Value Reference Range Interpretation Comments Total Protein (test code = 2885-2) 4.2 6.5-8.1 [facility] plasma albumin measurement (mass/volume)2020-09-28 05:25:00 Test Item Value Reference Range Interpretation Comments Albumin (test code = 1751-7) 1.9 3.5-5.0 [facility] NortheastPl[facility] globulin measurement (mass/volume) 2020-09-28 05:25:00 Test Item Value Reference Range Interpretation Comments Globulin (test code = 32828-6) 2.3 2.3-3.5 [facility] or plasma albumin/globulin mass fazln0481-79-43 05:25:00 Test Item Value Reference Range Interpretation Comments Albumin/Globulin Ratio (test code = 0.8 0.8-2.0 1759-0) [facility] plasma alkaline phosphatase measurement (enzymatic activity/volume)2020-09-28 05:25:00 Test Item Value Reference Range Interpretation Comments Alkaline Phosphatase (test code = 100 40-150 6768-6) [facility] NortheastTroponin I measurement by highly sensitive enzyme xmievzjwqtr6316-44-40 05:25:00 Test Item Value Reference Range Interpretation Comments Troponin I (test code = 54170-2) 0.109 0-0.300 [facility]CHEST SINGLE (PORTABLE)2020-09-26 10:41:00[facility] 1930 Sex: [place] [address] Patient Name: JUSTICE HARDY MR #: [id number] : 1930 Age/Sex: 89/M Req #: [id number] Adm Physician: ZACHARIAH SAINI MD Ordered by: ARASH CASTORENA MD Report #: [id number] Location: MED/SURG Room/Bed: [facility], [facility] Procedure: [id number] DX/CHEST SINGLE (PORTABLE) Exam Date: 09/26/20 Exam [...] CASTORENA MDABDOMEN 2 VIEW 2020-09-26 09:13:00 [facility] : 1930 Sex: M [place] [address] Patient Name: JUSTICE HARDY MR #: [id number] : 1930 Age/Sex: 89/M Req #: [id number] Adm Physician: ZACHARIAH SAINI MD Ordered by: JEANNINE SAINI MD Report #: [id number] Location: MED/SURG Room/Bed: [facility], [facility]1983 Procedure: [id number] DX/ABDOMEN 2 VIEW Exam Date: 09/26/20 Exam [...] Natriuretic Peptide (test code = 50.2 0-100 36086-2) [facility] amylase measurement (enzymatic activity/volume)2020-09-26 05:17:00 Test Item Value Reference Range Interpretation Comments Amylase Level (test code = 1798-8) 98 25-125 [facility] plasma lipase measurement (enzymatic activity/volume)2020-09-26 05:17:00 Test Item Value Reference Range Interpretation Comments Lipase (test code = 3040-3) 98 8-78 [facility]AB[facility] 2 MUBO7250-64-93 23:59:00 [facility] : 1930 Sex: M [facility] [address] [place] [address] Patient Name: JUSTICE HARDY MR #: [id number] : 1930 Age/Sex: 89/M Req #: [id number] [facility] Physician: ZACHARIAH SAINI MD Ordered by: JEANNINE SAINI MD Report #: [id number] Location: MED/SURG Room/Bed: [facility], [facility]1983 Procedure: [id number] DX/ABDOMEN 2 VIEW Exam Date: 09/24/20 Exam [...] levels are seen in the right hemiabdomen. [place] lucency in the upper abdomen on the upright view projecting over the T12 vertebral body , likely represents pneumoperitoneum IMPRESSION: 1. Overall appearance of postsurgical ileus with diffuse mildly dilated small bowel and distended air distended colon to the level of the rectum. Distal obstruction is not excluded. Recommend radiographic follow-up until resolution. 2. [place] lucency projecting over the T12 vertebral body may represent pneumoperitoneum as seen on recent chest CT, possibly related to recent surgery. Signed by: Patricia Wheat MD on 09/25/2020 12:48 AM Dictated By: TIESHA WHEAT MD Transcribed By: AYDEN on 09/25/2047 COPY TO: JEANNINE SAINIerum or plasma magnesium measurement (mass/volume)2020-09-23 16:40:00 Test Item Value Reference Range Interpretation Comments Magnesium Level (test code = 87560-6) 1.5 1.3-2.1 [facility] than one hour [id number] 08:51:00 Test Item Value Reference Range Interpretation Comments Differential Total Cells Counted (test 100 code = Differential Total Cells Counted) [facility]100 leukocytes 2020-09-22 08:51:00 Test Item Value Reference Range Interpretation Comments Neutrophils % (Manual) (test code = 86 40-74 09829-4) [facility] blood band neutrophils form/100 [id number] 08:51:00 Test Item Value Reference Range Interpretation Comments Band Neutrophils % (test code = 764-1) 0 [facility] blood lymphocytes/100 leukocytes 2020-09-22 08:51:00 Test Item Value Reference Range Interpretation Comments Lymphocytes % (Manual) (test code = 7 19-48 737-7) [facility] blood monocytes/100 leukocytes 2020-09-22 08:51:00 Test Item Value Reference Range Interpretation Comments Monocytes % (Manual) (test code = 7 3.4-9.0 744-3) [facility] reticul[facility] count as percentage of total [id number] 05:15:00 Test Item Value Reference Range Interpretation Comments Percent Reticulocyte Count (test code = 1.5 0.8-2.2 82420-1) [facility] iron [facility] (mass/volume)2020-09-21 05:15:00 Test Item Value Reference Range Interpretation Comments Iron Level (test code = 2498-4) 26 65-175 [facility] iron binding capacity measurement (mass/volume)2020-09-21 05:15:00 Test Item Value Reference Range Interpretation Comments Total Iron Binding Capacity (test code 193 261-314 = 2500-7) [facility] iron saturation measurement (mass fraction)2020-09-21 05:15:00 Test Item Value Reference Range Interpretation Comments Percent Iron Saturation (test code = 13 15-50 2502-3) [facility] plasma transferrin measurement (mass/volume)2020-09-21 05:15:00 Test Item Value Reference Range Interpretation Comments Transferrin (test code = 3034-6) 138 174-364 [facility] (vitamin B12) measurement (mass/volume)2020-09-21 05:15:00 Test Item Value Reference Range Interpretation Comments Vitamin B12 Level (test code = 31252-8) 591 213816 [facility] folate measurement (mass/volume)2020-09-21 05:15:00 Test Item Value Reference Range Interpretation Comments Folate (test code = 2284-8) 17.8 >3.0 [facility] [id number] 21:42:00 [facility] 1930 Sex: M [place] [address] Patient Name: JUSTICE HARDY MR #: [id number] : 1930 Age/Sex: 89/M Req #: [id number] Adm Physician: ZACHARIAH SAINI MD Ordered by: AJ FLYNN DO Report #: [id number] Location: MED/SURG Room/Bed: [facility], [facility]1983 Procedure: [id number] CT/CT CHEST W Exam Date: 09/20/20 Exam Time: 2114 REPORT STATUS: Signed EXAM: CT Chest WITH contrast 09/20/2020 9:15 PM INDICATION: PE [id number] 2114 COMPARISON: None TECHNIQUE: Chest was scanned [...] 09/20/202199 COPY TO: AJ FLYNN DO Phosphorus [id number] 03:45:00 Test Item Value Reference Range Interpretation Comments Phosphorus Level (test code = YMA9040) 0.8 2.3-4.7 [facility] SINGLE (PORTABLE)2020-09-17 15:26:00[facility] 1930 Sex: [place] [address] Patient Name: JUSTICE HARDY MR #: [id number] : 1930 Age/Sex: 89/M Req #: [id number] Adm Physician: ZACHARIAH SAINI MD Ordered by: ZACHARIAH SAINI MD Report #: [id number] Location: ICU Room/Bed: [place] [address] Procedure: [id number] DX/CHEST SINGLE (PORTABLE) Exam Date: 09/17/20 Exam [...] (PT) in platelet poor plasma by coagulation [id number] 10:55:00 Test Item Value Reference Range Interpretation Comments Prothrombin Time (test code = 5902-2) 16.5 11.9-14.5 [facility] in Platelet poor plasma by Coagulation [id number] 10:55:00 Test Item Value Reference Range Interpretation Comments Prothromb Time International Ratio 1.25 (test code = 6301-6) [facility] [id number] 20:57:00[facility] : 1930 Sex: M [facility] [address] [place] [address] Patient Name: JUSTICE HARDY MR #: [id number] : 1930 Age/Sex: 89/M Req #: [id number] Adm Physician: ZACHARIAH SAINI MD Ordered by: ZACHARIAH SAINI MD Report #: [id number] Location: ICU Room/Bed: [place] [address] Procedure: [id number] DX/CHEST XRAY LINE PLACEMENT Exam Date: 09/16/20 Exam Time: 1954 REPORT STATUS: Signed EXAMINATION: CHEST XRAY LINE PLACEMENT INDICATION: NG TUBE PLACEMENT VERIFICATION [id number] COMPARISON: CXR 09/15/2020 FINDINGS: TUBES and LINES: Enteric tube tip below left hemidiaphragm, likely within gastric lumen, sidehole port at [facility]. Right IJ CVC, tip in right atrium. [...] AYDEN on 09/16/202101 COPY TO: ZACHARIAH SAINI [facility] SINGLE (PORTABLE)2020-09-15 14:55:00 [facility] : 1930 Sex: [place] [address] Patient Name: JUSTICE HARDY MR #: [id number] : 1930 Age/Sex: 89/M Req #: [id number] Adm Physician: ZACHARIAH SAINI MD Ordered by: DHARMESH LINARES MD Report #: [id number] Lo cation: MED/SURG Room/Bed: [facility] Procedure: [id number] DX/CHEST SINGLE (PORTABLE) Exam Date: 09/15/20 Exam [...] MDABDOMEN ACUTE SERIES W/TENZIN CXR 2020-09-15 10:17:00 [facility] : 1930 Sex: [place] [address] Patient Name: JUSTICE HARDY MR #: [id number] : 1930 Age/Sex: 89/M Req #: [id number] Adm Physician: ZACHARIAH SAINI MD Ordered by: DHARMESH LINARES MD Report #: [id number] Lo cation: MED/SURG Room/Bed: [facility] Procedure: [id number] DX/ABDOMEN ACUTE SERIES W/PA CXR Exam Date: [...] TO: DHARMESH LINARES MDABDOMEN ACUTE SERIES W/TENZIN [id number] 10:50:00 [facility] : 1930 Sex: [place] [address] Patient Name: JUSTICE HARDY MR #: [id number] : 1930 Age/Sex: 89/M Req #: [id number] Adm Physician: ZACHARIAH SAINI MD Ordered by: DHARMESH LINARES MD Report #: [id number] Lo cation: MED/SURG Room/Bed: [facility] Procedure: DX/ABDOMEN ACUTE SERIES W/PA CXR Exam Date: 09/14/20 Exam Time: 1020 REPORT STATUS: Signed X-ray abdomen acute series with 2 views of the abdomen and a single view of the chest INDICATION: sbo [id number] 1020 Comparison: X-ray dated 09/14/2019. Discussion: Lungs [...] Lungs are grossly clear. Signed by: Osmin Edmonds MD on 09/14/2020 10:52 AM Dictated By: OSMIN EDMONDS MD 105 Transcribed By: AYDEN on 09/14/20 105 COPY TO: DHARMESH LINARES MDSerum or plasma creatine kinase measurement (enzymatic activity/volume)2020-09-13 11:24:00 Test Item Value Reference Range Interpretation Comments Creatine Kinase (test code = 2157-6) 385 30-200 [facility] creatine kinase MB measurement (mass/volume)2020-09-13 11:24:00 Test Item Value Reference Range Interpretation Comments Creatine Kinase MB (test code = 2.90 0-5.0 36508-9) [facility]AB[facility] 2 [id number] 09:26:00 [facility] 1930 Sex: [place] [address] Patient Name: JUSTICE HARDY MR #: [id number] : 1930 Age/Sex: 89/M Req #: [id number] Adm Physician: ZACHARIAH SAINI MD Ordered by: SHANNAN CERVANTES MD Report #: [id number] Location: MED/SURG Room/Bed: [facility] Procedure: [id number] DX/ABDOMEN 2 VIEW Exam Date: 09/13/20 Exam [...] code = Lactic 0.7 0.5-2.0 Acid Level) [facility]Fluoroscopic procedure less than one hour [id number] 19:02:00 Test Item Value Reference Range Interpretation Comments Coronavirus (PCR) (test code = NOT DETECTED NOTDETECTED Coronavirus (PCR)) [facility] A[facility]/PEL WO [id number] 17:30:00[facility] : 1930 Sex: M [facility] [address] [place] [address] Patient Name: JUSTICE HARDY MR #: [id number] : 1930 Age/Sex: 89/M Req #: [id number] Adm Physician: Ordered by: SHANNAN CERVANTES MD Report #: [id number] [facility] Room/Bed: Procedure: [id number] HOPD/CT ABD/PEL WO CONTRAST-HOPD Exam Date: 09/12/20 Exam Time: 1657 REPORT STATUS: Signed EXAM: CT Abdomen and Pelvis WITHOUT contrast INDICATION: abd pain, nausea, retching [id number] 1657 COMPARISON: CT abdomen and pelvis on [...] Transcribed By: AYDEN on 09/12/201744 COPY TO: DUCHAMP,SHANNAN A MDCT ABDOMEN/PELVIS [id number] 15:20:00 [place] [id number] [place] [address] Patient Name: JUSTICE HARDY MR #: [id number] : 1930 Age/Sex: 89/M Req #: [id number] Adm Physician: Mario boyd by: JEANNINE SAINI MD Report #: [id number] Location: CT Room/Bed: Procedure: [id number] CT/CT ABDOMEN/PELVISWO Exam Date: 03/02/20 Exam Time: [...] Otherwise unremarkable noncontrast exam. Signed by: Tiburcio Barahona on 03/02/2020 3:28 PM Dictated By: TIBURCIO BARAHONA MD 1528 Transcribed By: AYDEN on 03/02/20 1528 COPY TO: JEANNINE SAINI MD
[2021-10-17 17:40] LABS: Absolute Lymphocytes (CBC) 0.9 K/uL (0.7-4.9); Hematocrit 33.4 % (39.6-49.0); Lymphocytes % 18.2 % (15.3-44.8); MPV 7.9 fL (7.6-11.3); RBC Red Blood Cell Count 4.01 M/uL (4.33-5.43)
[2021-10-17 18:01] LABS: Albumin 3.2 g/dL (3.4-5.0); Bilirubin Total 0.3 mg/dL (0.2-1.0); Potassium 4.1 mmol/L (3.5-5.1); Protein, Total 6.6 g/dL (6.4-8.2)
--- NOTE | 2021-10-17 18:50 | EDPHYS ---
Physician Documentation [facility] Name: Benito Castaneda Age: 89 yrs Sex: Male : 1930 Arrival Date: 10/17/2021 Time: 16:49 Bed 26 Private MD: ED Physician Anoop Erickson HPI: 10/17 16:58 This 89 yrs old Male presents to ER via Unassigned with complaints of Altered la1 Mental Status. 16:58 The patient presents with Lethargy. Onset: The symptoms/episode began/occurred today. la1 Possible causes: unknown, administration of Narcotic pain meds. Associated signs and symptoms: Pertinent negatives: chest pain, dizziness, headache, lightheadedness, nausea, palpitations. Current symptoms: In the emergency department the patient's symptoms are unchanged from the initial presentation. Patient's baseline: Neuro: alert and fully oriented. Patient was seen last night here for a fall from bed diagnosed with thoracic spine fracture, given IV morphine other work-up was unremarkable patient was discharged back to snf. detention staff and stave grader at bedside report that patient has had decreased responsiveness throughout the day today, they report that he is usually awake throughout the day but has been very sleepy today.. Historical: - Allergies: 17:37 Benadryl; jb4 17:37 Cardura; jb4 17:37 doxazosin; jb4 17:37 Iodine; (fine with benadryl); jb4 17:37 Lipitor; jb4 17:37 SULFUR, ELEMENTAL; jb4 - Home Meds: 17:37 Albuterol Inhl [Active]; Aspirin Oral [Active]; finasteride Oral [Active]; Famotidine jb4 Oral [Active]; Lorazepam Oral [Active]; tamsulosin Oral [Active]; Tramadol Oral [Active]; Trazodone Oral [Active]; Melatonin Oral [Active]; ergocalciferol (vitamin D2) Oral [Active]; lisinopril Oral [Active]; Eliquis Oral [Active]; brio ellipta [Active]; - PMHx: 17:37 cardiac stents; aortic valve replacement; CVA; Diverticulitis; 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 - Social history:: Smoking status: unknown. ROS: 17:01 Constitutional: Negative for fever, chills, and weight loss, Eyes: Negative for injury, la1 pain, redness, and discharge, Neck: Negative for injury, pain, and swelling, Cardiovascular: Negative for chest pain, palpitations, and edema, Respiratory: Negative for shortness of breath, cough, wheezing, and pleuritic chest pain, Abdomen/GI: Negative for abdominal pain, nausea, vomiting, diarrhea, and constipation. 17:01 MS/Extremity: Negative for injury and deformity, Skin: Negative for injury, rash, and discoloration, Neuro: Negative for headache, weakness, numbness, tingling, and seizure. 17:01 Back: Positive for pain at rest, pain with movement. Exam: 17:02 Constitutional: This is a well developed, well nourished patient who is awake, alert, la1 and in no acute distress. Head/Face: Normocephalic, atraumatic. Eyes: Pupils equal round and reactive to light, extra-ocular motions intact. ENT: Nares patent. No nasal discharge, no septal abnormalities noted. Neck: Trachea midline, Chest/axilla: Normal chest wall appearance and motion. Nontender with no deformity. No lesions are appreciated. Cardiovascular: Regular rate and rhythm with a normal S1 and S2. Respiratory: Lungs have equal breath sounds bilaterally, clear to auscultation and percussion. Abdomen/GI: Soft, non-tender, with normal bowel sounds. Skin: Warm, dry with normal turgor. Normal color with no rashes, no lesions, and no evidence of cellulitis. MS/ Extremity: Pulses equal, no cyanosis. Neurovascular intact. Full, normal range of motion. Neuro: Awake and alert, GCS 15, oriented to person, place, time, and situation. Vital Signs: 17:32 BP 140 / 73; Pulse 64; Resp 18; Temp 97.2(O); Pulse Ox 99% on R/A; Pain 0/10; jb4 18:29 BP 129 / 66; Pulse 74; Resp 16; Pulse Ox 99% on R/A; Pain 0/10; jb4 MDM: 16:49 Patient medically screened. la1 18:46 Data reviewed: vital signs, nurses notes, radiologic studies, From this morning CT CAP la1 , and as a result, I will discharge patient. Data interpreted: Pulse oximetry: on room air is 100 %. Interpretation: normal. Counseling: I had a detailed discussion with the patient and/or guardian regarding: the historical points, exam findings, and any diagnostic results supporting the discharge/admit diagnosis, lab results, the need for outpatient follow up, a family practitioner, to return to the emergency department if symptoms worsen or persist or if there are any questions or concerns that arise at home. ED course: Family at bedside patient currently awake, alert, oriented x4, no focal neurological deficits noted not complaining of any pain at this time. His labs were completely unremarkable no signs of infection, patient denies any complaints at this time family does report that he is a little more sleepy than normal but he arouses easily. Discussed findings and options with all family members including son Ray over the phone. Vital signs are stable at this point time most appropriate course of action is to discharge back to snf with return precautions. Patient is afebrile no neurological findings no complaints.. 10/17 16:56 Order name: Blood Culture Adult (2) 10/17 16:56 Order name: CBC with Diff; Complete Time: 17:52 10/17 16:56 Order name: CMP; Complete Time: 18:12 10/17 16:56 Order name: Lactate; Complete Time: 17:54 10/17 16:56 Order name: Procalcitonin; Complete Time: 18:25 10/17 17:01 Order name: Troponin High Sensitivity; Complete Time: 18:12 10/17 16:56 Order name: Accucheck; Complete Time: 17:32 10/17 16:56 Order name: Cardiac monitoring; Complete Time: 17:25 10/17 16:56 Order name: EKG - Nurse/Tech; Complete Time: 17:25 10/17 16:56 Order name: Labs collected and sent; Complete Time: 17:25 10/17 16:56 Order name: O2 Per Protocol; Complete Time: 17:25 10/17 16:56 Order name: O2 Sat Monitoring; Complete Time: 17:25 /20 17:45 Order name: Glucose, Ancillary Testing; Complete Time: 17:52 EDMS Administered Medications: 17:23 CANCELLED (Other Intervention Used): NS 0.9% 500 ml IV at bolus once la1 Disposition Summary: 10/17/21 18:49 Discharge Ordered Location: Halfway la1 Problem: an ongoing problem la1 Symptoms: have improved la1 Condition: Stable la1 Diagnosis - Altered mental status, unspecified - drowsy la1 Followup: la1 - With: Private Physician - When: 1 - 2 days - Reason: Re-evaluation by your physician Discharge Instructions: - Discharge Summary Sheet la1 - Acute Back Pain, Adult la1 - Fall Prevention in the Home, Adult la1 - Weakness la1 Forms: - Medication Reconciliation Form la1 - Thank You Letter la1 Addendum: 10/19/2021 07:49 Co-signature as Attending Physician, Anoop Erickson MD I agree with the assessment and c dunn plan of care. Signatures: Dispatcher [employer] EDMS Anoop Erickson MD MD cha Attema, Lee, TWISTING OPERATOR-C TWISTING OPERATOR-Cla1 Jeffy Lane, RN RN jb4 Corrections: (The following items were deleted from the chart) 10/17 17:23 16:57 NS 0.9% 500 ml IV at bolus once ordered. la1 la1
--- NOTE | 2021-10-17 18:50 | ER ---
Nurse's Notes [facility] Name: Benito Castaneda Age: 89 yrs Sex: Male : 1930 Arrival Date: 10/17/2021 Time: 16:49 Bed 26 Private MD: Diagnosis: Altered mental status, unspecified-drowsy Presentation: 10/17 17:32 Chief complaint: Pt was here yesterday after falling. Was discharged and today the [facility] nursing staff noticed he was more lethargic than normal. EMS gave him Toradol. Per family at the bedside. Coronavirus screen: At this time, the client does not indicate any symptoms associated with coronavirus-19. Ebola Screen: No symptoms or risks identified at this time. Initial Sepsis Screen: Does the patient meet any 2 criteria? No. Patient's initial sepsis screen is negative. Does the patient have a suspected source of infection? No. Patient's initial sepsis screen is negative. Risk Assessment: Do you want to hurt yourself or someone else? Patient reports no desire to harm self or others. Onset of symptoms was October 17, 2021. Transition of care: patient was not received from another setting of care. 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 - Social history:: Smoking status: unknown. Screenin:55 Abuse screen: Denies threats or abuse. Nutritional screening: No deficits noted. jb4 Tuberculosis screening: No symptoms or risk factors identified. Fall Risk None identified. Assessment: 16:55 General: Appears in no apparent distress. comfortable, Behavior is calm, cooperative, jb4 appropriate for age. Pain: Denies pain. Neuro: Level of Consciousness is awake, alert, obeys commands, Oriented to person, place, time, situation. Cardiovascular: Patient's skin is warm and dry. Respiratory: Airway is patent Respiratory effort is even, unlabored, Respiratory pattern is regular, symmetrical. GI: No signs and/or symptoms were reported involving the gastrointestinal system. : No signs and/or symptoms were reported regarding the genitourinary system. EENT: No signs and/or symptoms were reported regarding the EENT system. Derm: Skin is intact, Skin is pink, warm \T\ dry. Musculoskeletal: Circulation, motion, and sensation intact. Range of motion:. 18:29 Reassessment: Patient appears in no apparent distress at this time. Patient and/or jb4 family updated on plan of care and expected duration. Pain level reassessed. Pt awakens to touch and verbal stimuli. Remain alert and orient x4 and sleepy. Respirations are even and unlabored with no s/s of pain or distress noted. 19:09 Reassessment: Patient appears in no apparent distress at this time. Patient and/or jb4 family updated on plan of care and expected duration. Pain level reassessed. Patient is alert, oriented x 3, equal unlabored respirations, skin warm/dry/pink. Pt assisted to vehicle via wheel chair. Vital Signs: 17:32 BP 140 / 73; Pulse 64; Resp 18; Temp 97.2(O); Pulse Ox 99% on R/A; Pain 0/10; jb4 18:29 BP 129 / 66; Pulse 74; Resp 16; Pulse Ox 99% on R/A; Pain 0/10; jb4 ED Course: 16:49 Patient arrived in ED. la1 16:49 Perico Conde FNP-C is [facility]. la1 16:49 Anoop Erickson MD is Attending Physician. la1 16:55 Patient has correct armband on for positive identification. Placed in gown. Bed in low jb4 position. Call light in reach. Side rails up X 1. equipment monitor phototypesetting on. Pulse ox on. NIBP on. 16:55 Initial lab(s) drawn, by me, sent to lab. First set of blood cultures drawn by me. jb4 Inserted saline lock: 18 gauge in left forearm, using aseptic technique. Blood collected. 17:[address], RN is Primary Nurse. jb4 17:37 Triage completed. jb4 17:37 Arm band placed on right wrist. jb4 19:09 No provider procedures requiring assistance completed. IV discontinued, intact, jb4 bleeding controlled, No redness/swelling at site. Pressure dressing applied. Administered Medications: 17:23 CANCELLED (Other Intervention Used): NS 0.9% 500 ml IV at bolus once la1 Outcome: 18:49 Discharge ordered by . la1 19:09 Discharged to home via wheelchair. jb4 19:09 Condition: stable 19:09 Discharge instructions given to patient, Instructed on discharge instructions, follow up and referral plans. Demonstrated understanding of instructions, follow-up care. 19:10 Patient left the ED. jb4 Signatures: Perico Conde FNP-C INFECTION PREVENTION PRACTITIONER-Cla1 Jeffy Lane, RN RN jb4
[2021-10-18 01:10] VITALS: TEMP 97.2; O2SAT 99
[2021-10-18 01:12] VITALS: BP 129/66
== END 2021-10-17 19:10 ==
LOC: ER 16:48
DX: R41.82 Altered mental status, unspecified (principal); I10 Essential (primary) hypertension; I25.2 Old myocardial infarction; Z79.01 Long term (current) use of anticoagulants; Z79.82 Long term (current) use of aspirin; Z86.73 Personal history of transient ischemic attack (TIA), and cerebral infarction without residual deficits; Z95.4 Presence of other heart-valve replacement; Z95.818 Presence of other cardiac implants and grafts; Z85.46 Personal history of malignant neoplasm of prostate; Z88.8 Allergy status to other drugs, medicaments and biological substances
CPT/HCPCS: 36415; 80053; 82947; 83605; 84145; 84484; 85025; 87040; 99284

== ENCOUNTER 2021-10-30 15:32 | Emergency (ER) | payer OTHER, BC ==
--- OUTSIDE RECORDS SUMMARY | 2021-10-30 15:40 | XMS REPORT | Continuity of Care Document ---
:1930 Author Organization [facility] t Address [address] [place] [address] Care Team Providers Name Role Phone Jaclyn Tate MD Primary Care Physician SITA BECKFORD Attending Clinician Unavailable MD ARIELLA BATISTA Attending Clinician Unavailable Justice Guzman Attending Clinician Unavailable Hugo GARCIA, Trav Fernandez. Attending Clinician [phone] Anupam GARCIA, O. Attending Clinician Renee GARCIA Attending Clinician 2030_Biopsy Attending Clinician Unavailable Rebecca Lopez MA Attending Clinician Unavailable Bebeto GARCIA Attending Clinician Fawad GARCIA Attending Clinician Yoana Fowler MD. Attending Clinician Ivory DAHL Attending Clinician Unavailable Pob, Lab Main Attending Clinician Unavailable Anthony MD, S Attending Clinician Sherrill CRUZ Attending Clinician Unavailable Doctor Unassigned, Name Attending Clinician Unavailable Singer AGUIRRE Attending Clinician Amalia PAYTON May Attending Clinician Ivory Whaley Attending Clinician Ivory CARDONA Attending Clinician Unavailable Олег Parkinson MD Attending Clinician YENY Attending Clinician Unavailable SAINI Attending Clinician Unavailable LYNNE Admitting Clinician Unavailable Nani Pritchard Admitting Clinician Unavailable Physician, Primary or Family Admitting Clinician Unavailvalerio CALIX Admitting Clinician Unavailable 2030_Biopsy Admitting Clinician Unavailable SAINI Admitting Clinician Unavailable Payers Payer Name Policy Type Policy Effective Date Expiration Date Sour ce Number BCBS FED SELECT [id number] 2015 00:00:00 MEDICARE PART A [id number] 1996 \T\ B 00:00:00 [facility] [id number] 2015 [facility] 00:00:00 - Patients [facility] Center Medicare A & B [id number] 1996 [facility] 00:00:00 - Patients Medical Center Problems [...] disease 00:00: Hospita involving involving [place] coronary coronary artery artery SOB SOB Disease [...] Added automatic ally from request for surgery [id number] Small Problem Active [facility] St. bowel [facility] - obstructio Patien n [facility] Nausea Problem Active [facility] Patient [facility] Hypomagnes Problem Active [facility] S t. emia [facility] Leukocytos Problem Active [facility] S t. is [facility] Hypertensi Problem Active [facility] S t. on [facility] History of Problem Active [facility] arterioscl [facility] - erotic Patient cardiovas s [facility] Abdominal Problem Active [facility] St . pain [facility] No known No known Disease Unive rs active active ity of problems problems [facility] Branch Allergies, Adverse Reactions, Alerts Allergy Allergy Status Severity Reaction(s) Onset Inactive Treating Comm ents Source Name Type Date Date Clinician atorvast DA Active U [facility]KNOWN [facility] atin 09-05 Clear 00:00: Mir 00 [facility] iodine DA Active U [facility] 09-05 Clear 00:00: Mir 00 [facility] diphenhy DA Active U [facility]KNOWN [facility] dramine 09-05 Clear 00:00: Mir 00 [facility] Diphenhy Propensi Active Itching Pt states [...] Iodine Allergy Active [facility]: Patient e 00 [facility] Doxazosi Allergy Active 2018-[address] [facility] [facility] to 2 [facility] 00:00: Patient e 00 [facility] CARDURA DA Active U FAINTING; [facility] LOW B/P 6- Clear 00:00: Mir 00 [facility] No Known DA Active U 2001- [facility] Contrast 6- Clear Allergie 00:00: Mir s 00 [facility] No Known DA Active U 2001- [facility] Food 6 Clear Allergie 00:00: Mir s [facility] No Known DA Active U 2001- [facility] Other 6- Clear Allergie 00:00: Mir s 00 [facility] NO KNOWN Drug Active Univers ALLERGIE Class ity of S [facility] doxazosi DA Active [facility] Patient [facility] iodine DA Active [facility] Patient [facility] Family History Family Member Diagnosis Comments Start Date Stop Date Source Natural brother [facility] Hy[facility] Natural mother Alzheimer's disease [facility] Natural sister [facility] Social History Social Habit Start Date Stop Date Quantity Comments Source Exposure to Not sure [facility] SARS-CoV-2 (event) [facility] History of tobacco Smoker [facility] use Hospital History SDOH [facility] Frequency Hospita l History SDOH [facility] Alcohol Std Drinks Hospit al History SDOH [facility] Alcohol intake 2021-01-10 2021-01-10 Current University of 00:00:00 00:00:00 non-drinker of [facility] alcohol (finding) Branch Tobacco use and 2021-01-10 2021-01-10 Never used Universit y of exposure 00:00:00 00:00:00 [facility] Alcohol Comment 2017-12-10 2017-12-10 ocassional [facility] 00:00:00 00:00:00 Hospital Cigarettes smoked 2017-08-07 2017-08-[address] current (pack per 00:00:00 00:00:00 Hospita l day) - Reported Cigarette 2017-08-07 2017-08-07 [facility] pack-years 00:00:00 00:00:00 Hospital Sex Assigned At [birth year] Universit [facility] of 00:00:00 00:00:00 [facility] Smoking Status Start Date Stop Date Source Never smoker [facility] Ex-smoker 2017-08-07 00:00:00 2017-08-07 00:00:00 [facility] Medications Ordered Filled Start Stop Current Ordering Indication Dosage Frequency Signature Comments Components Source Medication Medication Date Date Medication? Clinician (SIG) Name Name latonia 2021- No [id number] Q7D Take 1 M ethodi rol 07-16 [...] ipratropium Yes 1{spray 1 spray Methodi (ATROVENT) -14 } into each st 21 mcg 12:51: [...] enteric 23 l coated tablet albuterol 2021- No 2{puff} Q.25D Inhale 2 Methodi (PROAIR 1-14 02-[address] HFA) 90 00:00: 05:59 every 4 Hospit a mcg/actuati 00 :00 (four) l on inhaler hours while awake for 30 days. famotidine 0 2021- No 20mg Q.5D Take 1 Meth marcella (PEPCID) 20 1-14 -14 tablet (20 s t MG tablet 00:00: 05:59 mg total) Ho spita 00 :00 by mouth 2 l (two) times a day for 30 days. fluticasone No QD Inhale 1 M ethodi furoate-gabriel 14 02-14 inhalation s t anteroL 00:00: 05:59 s [...] 12 (twelve) hours for 30 days. polyethylen 2000mL Take 2,000 Methodi e glycol 07-01 01-[address] (Golytely) 00:00: 05:59 mouth once Hospita 236-22.74-6 00 :00 for 1 l .74 -5.86 dose. gram solution lisinopriL 2020-06 No 40mg QD Take 40 mg [facility] (PRINIVIL) 0-26 10-[address] 40 mg 17:41: 00:00 daily. Hospita tablet 05 :00 l amLODIPine 2020-06- No 5mg QD Take 5 mg M [...] to 30 days. isosorbide 2020-06 No 20mg [id number] Take 1 Method[facility] dinitrate 0-25 11-25 [id number] tablet (20 st (ISORDIL) 00:00: 05:59 3D [...] up to 3 days. ergocalcife 2020- No [id number] Q7D Take 1 M ethodi rol 02-27 [...] 500mg QD Take 2 Me thodi n 8- 09-[address] (Zithromax) 00:00: 04:59 (500 [...] No .1mg 0.1 mg, Univ ers (CATAPRES) 01-16-20 Oral, ity of tablet 0.1 07:15: 06:15 ONCE, 1 Flash as mg 00 :00 dose, Tue Medical 01/16/21 at Branch 0215, STAT cloNIDine 2020- No .1mg 0.1 mg, Univ ers (CATAPRES) 7-20 07-20 Oral, ity of tablet 0.1 05:45: 04:45 ONCE, 1 Flash as mg 00 :00 dose, [facility] 01/16/21 at Branch 0045, STAT amLODIPine 0 Yes 10mg Take 10 mg U nivers 10 mg 7-02 by mouth ity of tablet 18:08: daily. [place] [address] Medical Branch aspirin 325 0 Yes 325mg Take 325 U nivers mg tablet 7-02 mg by ity of 18:08: mouth [place] 23 daily. Medical Branch valsartan-h 0 Yes 1{tbl} Take 1 Un alma ydrochlorot 7-02 tablet by ity of hiazide 18:08: mouth [place] 160-12.5 mg 23 daily. Medica l per tablet Branch eszopiclone 0 Yes 3mg Take 3 mg U nivers 3 mg tablet 7-02 by mouth ity of 18:08: at [place] [address] bedtime. Medical Branch cloNIDine 0 Yes .1mg Take 0.1 Univ ers 0.1 mg 7-02 mg by ity of tablet 18:08: mouth 3 [place] 23 (three) Medical times Branch daily. apixaban 0 Yes 2.5mg Take 2.5 Univ ers (ELIQUIS) 7-02 mg by ity of 2.5 mg 18:08: mouth 2 [place] [facility] 23 (two) Medical times Branch daily. omeprazole 0 Yes 40mg Take 40 mg U nivers 40 mg 7-02 by mouth ity of capsule 18:08: daily. [address] Branch lisinopriL 0 Yes 5mg Take 5 mg Un alma 5 mg tablet 7-02 by mouth ity of 18:08: daily. [address] Branch finasteride 0 Yes 5mg Take 5 mg U nivers 5 mg tablet 7-02 by mouth ity of 18:08: daily. [address] Branch amLODIPine 0 Yes 10mg Take 10 mg U nivers 10 mg 7-02 by mouth ity of tablet 18:08: daily. [address] aspirin 325 0 Yes 325mg Take 325 [...] 7-02 by mouth ity of 18:08: at [place] 23 bedtime. Medical Branch cloNIDine Yes .1mg Take 0.1 Univ ers 0.1 mg 7-02 mg by ity of tablet 18:08: mouth 3 [place] 23 (three) Medical times Branch daily. apixaban Yes 2.5mg Take 2.5 Univ ers (ELIQUIS) 7-02 mg by ity of 2.5 mg 18:08: mouth 2 [place] [facility] 23 (two) Medical times Branch daily. omeprazole Yes 40mg Take 40 mg U nivers 40 mg 7-02 by mouth ity of capsule 18:08: daily. [place] [address] Medical Branch lisinopriL Yes 5mg Take 5 mg Un alma 5 mg tablet 7-02 by mouth ity of 18:08: daily. [place] [address] Medical Branch finasteride Yes 5mg Take 5 mg U nivers 5 mg tablet 7-02 by mouth ity of 18:08: daily. [place] [address] Medical Branch amLODIPine Yes 10mg Take 10 mg U nivers 10 mg 7-02 by mouth ity of tablet 18:08: daily. [place] [address] Medical Branch aspirin 325 Yes 325mg Take [...] 7-02 by mouth ity of 18:08: at [place] 23 bedtime. Medical Branch cloNIDine Yes .1mg Take 0.1 Univ ers 0.1 mg 7-02 mg by ity of tablet 18:08: mouth 3 [place] 23 (three) Medical times Branch daily. apixaban Yes 2.5mg Take 2.5 Univ ers (ELIQUIS) 7-02 mg by ity of 2.5 mg 18:08: mouth 2 [place] [facility] 23 (two) Medical times Branch daily. omeprazole Yes 40mg Take 40 mg U nivers 40 mg 7-02 by mouth ity of capsule 18:08: daily. [place] [address] Medical Branch lisinopriL 0 Yes 5mg Take 5 mg Un alma 5 mg tablet 7-02 by mouth ity of 18:08: daily. [place] [address] Medical Branch finasteride 0 Yes 5mg Take 5 mg U nivers 5 mg tablet 7-02 by mouth ity of 18:08: daily. [place] [address] Medical Branch amLODIPine Yes 10mg Take 10 mg U nivers 10 mg 7-02 by mouth ity of tablet 18:08: daily. [place] [address] Medical Branch aspirin 325 0 Yes 325mg [...] 7-02 by mouth ity of 18:08: at [place] 23 bedtime. Medical Branch cloNIDine 0 Yes .1mg Take 0.1 Univ ers 0.1 mg 7-02 mg by ity of tablet 18:08: mouth 3 [place] 23 (three) Medical times Branch daily. apixaban 0 Yes 2.5mg Take 2.5 Univ ers (ELIQUIS) 7-02 mg by ity of 2.5 mg 18:08: mouth 2 [place] [facility] 23 (two) Medical times Branch daily. omeprazole Yes 40mg Take 40 mg U nivers 40 mg 7-02 by mouth ity of capsule 18:08: daily. [place] [address] Medical Branch lisinopriL 0 Yes 5mg Take 5 mg Un alma 5 mg tablet 7-02 by mouth ity of 18:08: daily. [place] [address] Medical Branch finasteride 0 Yes 5mg Take 5 mg U nivers 5 mg tablet 7-02 by mouth ity of 18:08: daily. [place] [address] Medical Branch amLODIPine Yes 10mg Take 10 mg U nivers 10 mg 7-02 by mouth ity of tablet 18:08: daily. [place] [address] Medical Branch aspirin 325 0 Yes 325mg [...] 7-02 by mouth ity of 18:08: at [place] [address] bedtime. Medical Branch cloNIDine 0 Yes .1mg Take 0.1 Univ ers 0.1 mg 7-02 mg by ity of tablet 18:08: mouth 3 [place] 23 (three) Medical times Branch daily. apixaban Yes 2.5mg Take 2.5 Univ ers (ELIQUIS) 7-02 mg by ity of 2.5 mg 18:08: mouth 2 [facility] 23 (two) Medical times Branch daily. omeprazole Yes 40mg Take 40 mg U nivers 40 mg 7-02 by mouth ity of capsule 18:08: daily. [place] [address] Medical Branch lisinopriL 0 Yes 5mg Take 5 mg Un alma 5 mg tablet 7-02 by mouth ity of 18:08: daily. [place] [address] Medical Branch finasteride 0 Yes 5mg Take 5 mg U nivers 5 mg tablet 7-02 by mouth ity of 18:08: daily. [place] [address] Medical Branch amLODIPine Yes 10mg Take 10 mg U nivers 10 mg 7-02 by mouth ity of tablet 18:08: daily. [address] Branch aspirin 325 0 Yes 325mg [...] 7-02 by mouth ity of 18:08: at [place] 23 bedtime. Medical Branch cloNIDine Yes .1mg Take 0.1 Univ ers 0.1 mg 7-02 mg by ity of tablet 18:08: mouth 3 [place] 23 (three) Medical times Branch daily. apixaban Yes 2.5mg Take 2.5 Univ ers (ELIQUIS) 7-02 mg by ity of 2.5 mg 18:08: mouth 2 [place] [facility] 23 (two) Medical times Branch daily. omeprazole Yes 40mg Take 40 mg U nivers 40 mg 7-02 by mouth ity of capsule 18:08: daily. [place] [address] Medical Branch lisinopriL Yes 5mg Take 5 mg Un alma 5 mg tablet 7-02 by mouth ity of 18:08: daily. [place] [address] Medical Branch finasteride Yes 5mg Take 5 mg U nivers 5 mg tablet 7-02 by mouth ity of 18:08: daily. [place] [address] Medical Branch amLODIPine Yes 10mg Take 10 mg U nivers 10 mg 7-02 by mouth ity of tablet 18:08: daily. [place] [address] Medical Branch aspirin 325 Yes 325mg Take [...] 7-02 by mouth ity of 18:08: at [place] 23 bedtime. Medical Branch cloNIDine Yes .1mg Take 0.1 Univ ers 0.1 mg 7-02 mg by ity of tablet 18:08: mouth 3 [place] 23 (three) Medical times Branch daily. apixaban Yes 2.5mg Take 2.5 Univ ers (ELIQUIS) 7-02 mg by ity of 2.5 mg 18:08: mouth 2 [place] [facility] 23 (two) Medical times Branch daily. omeprazole Yes 40mg Take 40 mg U nivers 40 mg 7-02 by mouth ity of capsule 18:08: daily. [place] [address] Medical Branch lisinopriL 0 Yes 5mg Take 5 mg Un alma 5 mg tablet 7-02 by mouth ity of 18:08: daily. [place] [address] Medical Branch finasteride 0 Yes 5mg Take 5 mg U nivers 5 mg tablet 7-02 by mouth ity of 18:08: daily. [place] [address] Medical Branch amLODIPine Yes 10mg Take 10 mg U nivers 10 mg 7-02 by mouth ity of tablet 18:08: daily. [place] [address] Medical Branch aspirin 325 0 Yes 325mg [...] 7-02 by mouth ity of 18:08: at [place] 23 bedtime. Medical Branch cloNIDine 0 Yes .1mg Take 0.1 Univ ers 0.1 mg 7-02 mg by ity of tablet 18:08: mouth 3 [place] 23 (three) Medical times Branch daily. apixaban 0 Yes 2.5mg Take 2.5 Univ ers (ELIQUIS) 7-02 mg by ity of 2.5 mg 18:08: mouth 2 [place] [facility] 23 (two) Medical times Branch daily. omeprazole Yes 40mg Take 40 mg U nivers 40 mg 7-02 by mouth ity of capsule 18:08: daily. [place] [address] Medical Branch lisinopriL 2021-0 Yes 5mg Take 5 mg Un alma 5 mg tablet 12-29 by mouth ity of 18:08: daily. [address] finasteride Yes 5mg Take 5 mg U nivers 5 mg tablet 12-29 by mouth ity of 18:08: daily. [address] Branch Dutasteride Yes Take by Un alma -Tamsulosin 12-29 mouth. ity of 0.5-0.4 mg 18:08: [address] Branch Dutasteride Yes Take by Un alma -Tamsulosin 12-29 mouth. ity of 0.5-0.4 mg 18:08: [address] Branch Dutasteride Yes Take by Un alma -Tamsulosin 12-29 mouth. ity of 0.5-0.4 mg 18:08: [address] Branch Dutasteride Yes Take by Un alma -Tamsulosin 12-29 mouth. ity of 0.5-0.4 mg 18:08: [address] Branch Dutasteride Yes Take by Un alma -Tamsulosin 12-29 mouth. ity of 0.5-0.4 mg 18:08: [address] Branch Dutasteride Yes Take by Un alma -Tamsulosin 12-29 mouth. ity of 0.5-0.4 mg 18:08: [address] Branch Dutasteride Yes Take by Un alma -Tamsulosin 12-29 mouth. ity of 0.5-0.4 mg 18:08: [address] Branch Dutasteride Yes Take by Un alma -Tamsulosin 12-29 mouth. ity of 0.5-0.4 mg 18:08: [address] Branch tamsulosin 2020- No .4mg QD [...] mouth daily [place] 4 [place] [id number] 50mg Q6H Take 50 mg M ethodi [...] by mouth ity of tablet 18:24: daily. [place] 36 Medical Branch aspirin 325 Yes 325mg [...] 7-19 by mouth ity of 18:24: at [place] 36 bedtime. Medical Branch amLODIPine Yes 10mg Take 10 mg U nivers 10 mg 7-19 by mouth ity of tablet 18:24: daily. [place] [address] Medical Branch aspirin 325 Yes 325mg Take [...] 7-19 by mouth ity of 18:24: at [place] 36 bedtime. Medical Branch Amlodipine Amlodipine Yes [address] Besylate [facility]ylate [facility] Patient s [facility] Aspirin Aspirin Yes Daily [facility] (Aspir 81) (Aspir 81) Tal es - 81 Mg 81 Mg Patient TABLET.DR SHIPLEY.DR lino [facility] Hydrochloro Hydrochloro Yes 12.[address] thiazide thiazide [facility] - (Hydrochlor (Hydrochlor P atient othiazide*) othiazide*) s 25 Mg 25 Mg Medical TABLET TABLET Center Tamsulosin Tamsulosin Yes .[address] Hcl Hcl [facility] - (Flomax*) (Flomax*) Patie nt 0.4 Mg CAP 0.4 Mg CAP [facility] Immunizations Ordered Immunization Filled Immunization Date Status Commen ts Source Name Name FLUZONE HIGH-DOSE PF 2021-04-23 Completed Meth odist 00:00:00 Hospital Vital Signs Vital Name Observation Time Observation Value Comments Source Systolic blood 2021-01-16 07:00:00 187 mm[Hg] Univer sity of pressure [facility] Diastolic blood 2021-01-16 07:00:00 90 mm[Hg] Unive rsity of pressure [facility] Heart rate 2021-01-16 07:00:00 76 /min [facility] Respiratory rate 2021-01-16 07:00:00 20 /min [facility] [place] [facility] Oxygen saturation in 2021-01-16 07:00:00 97 /min University of Arterial blood by [place] [employer] hemal Pulse oximetry Branch Body temperature 2021-01-16 04:24:00 37.06 Ayana Univ ersity of [place] [facility] Body weight 2021-01-16 04:24:00 58.968 kg Universi ty [facility] [place] [facility] BMI 2021-01-16 04:24:00 22.31 kg/m2 Universi ty [facility] [place] [facility] Systolic blood 2021-01-11 02:55:00 175 mm[Hg] Univer sity of pressure [place] [facility] Diastolic blood 2021-01-11 02:55:00 85 mm[Hg] Unive rsity of pressure [place] [facility] Heart rate 2021-01-11 02:55:00 73 /min [facility]i ty [facility] [place] [facility] Respiratory rate 2021-01-11 02:55:00 16 /min Univ ersity of [place] [facility] Oxygen saturation in 2021-01-11 02:55:00 96 /min University of Arterial blood by [facility] Pulse oximetry Branch Body temperature 2021-01-10 23:48:00 37.22 Ayana Univ ersity of [place] [facility] Body weight 2021-01-10 23:48:00 58.968 kg Universi ty of [place] [facility] BMI 2021-01-10 23:48:00 22.31 kg/m2 Universi ty [facility] [place] [facility] Systolic blood 2020-12-29 18:08:00 132 mm[Hg] Univer sity of pressure [place] [facility] Diastolic blood 2020-12-29 18:08:00 65 mm[Hg] Unive rsity of pressure [place] [facility] Heart rate 2020-12-29 18:03:00 65 /min [facility]i ty [facility] [place] [facility] Body temperature 2020-12-29 18:03:00 36.44 Ayana Univ ersity of [place] [facility] Respiratory rate 2020-12-29 18:03:00 16 /min Univ ersity of [place] [facility] Body height 2020-12-29 18:03:00 162.6 cm Universi ty [facility] [place] [facility] Body weight 2020-12-29 18:03:00 59.013 kg [facility]i ty [facility] [place] [facility] BMI 2020-12-29 18:03:00 22.33 kg/m2 Universi ty [facility] [place] [facility] Oxygen saturation in 2020-12-29 18:03:00 98 /min University of Arterial blood by [place] [employer] hemal Pulse oximetry Branch Systolic blood 2020-12-29 18:08:00 132 mm[Hg] Univer sity of pressure [facility] Diastolic blood 2020-12-29 18:08:00 65 mm[Hg] Unive rsity of [facility] Heart rate 2020-12-29 18:03:00 65 /min [facility] Body temperature 2020-12-29 18:03:00 36.44 Ayana [facility] Respiratory rate 2020-12-29 18:03:00 16 /min [facility] Body height 2020-12-29 18:03:00 162.6 cm [facility] Body weight 2020-12-29 18:03:00 59.013 kg [facility] BMI 2020-12-29 18:03:00 22.33 kg/m2 [facility] Oxygen saturation in 2020-12-29 18:03:00 98 /min [facility] Arterial blood by [facility] Pulse oximetry Branch Oxygen saturation in 2021-07-13 18:02:00 94 /min [facility] [place] [facility] Arterial blood by Pulse oximetry Heart rate 2021-07-13 17:59:00 74 /min [facility] Respiratory rate 2021-07-13 17:59:00 14 /min [facility] Systolic blood 2021-07-13 17:02:14 121 mm[Hg] [facility] Diastolic blood 2021-07-13 17:02:14 63 mm[Hg] [facility] pressure Body temperature 2021-07-13 17:02:14 36.11 Ayana [facility] Body height 2021-07-08 22:41:00 162.6 cm [facility] Body weight 2021-07-08 22:41:00 58.968 kg [facility] BMI 2021-07-08 22:41:00 22.31 kg/m2 [facility] BP Diastolic 2020-09-28 12:46:00 76 mm[Hg] [facility] BP Systolic 2020-09-28 12:46:00 149 mm[Hg] [facility] Oxygen saturation by 2020-09-28 12:46:00 99 /min [facility] - Pulse oximetry Patients [facility] Heart Rate 2020-09-28 12:46:00 85 /min [facility] Respiratory rate 2020-09-28 12:46:00 22 /min [facility] Body Temperature 2020-09-28 12:46:00 97.7 [degF] [facility] Heart Rate 2020-09-28 08:42:00 81 /min [facility] Respiratory rate 2020-09-28 08:42:00 24 /min [facility] Body Temperature 2020-09-28 08:42:00 97.4 [degF] [facility] BP Diastolic 2020-09-28 08:42:00 60 mm[Hg] [facility] BP Systolic 2020-09-28 08:42:00 141 mm[Hg] [facility] Oxygen saturation by 2020-09-28 08:42:00 96 /min [facility] - Pulse oximetry Patients [facility] BP Diastolic 2020-09-28 08:36:00 60 mm[Hg] [facility] BP Systolic 2020-09-28 08:36:00 141 mm[Hg] [facility] Oxygen saturation by 2020-09-28 08:36:00 96 /min [facility] - Pulse oximetry Patients [facility] Heart Rate 2020-09-28 08:36:00 81 /min [facility] Respiratory rate 2020-09-28 08:36:00 24 /min [facility] Body Temperature 2020-09-28 08:36:00 97.4 [degF] [facility] Oxygen saturation by 2020-09-28 08:17:00 96 /min [facility] - Pulse oximetry Patients [facility] Heart Rate 2020-09-28 08:17:00 80 /min [facility] Patients Med[facility] Center Respiratory rate 2020-09-28 08:17:00 20 /min [facility] Patients Med[facility] Center Oxygen saturation by 2020-09-28 07:49:00 96 /min [facility] - Pulse oximetry Patients [facility] Heart Rate 2020-09-28 07:49:00 80 /min [...] [facility] - Pulse oximetry Patients [facility] Heart Rate 2020-09-28 04:00:00 85 /min [facility] Respiratory rate 2020-09-28 04:00:00 20 /min [facility] - Patients Medica l Center Body Temperature 2020-09-28 04:00:00 97.7 [degF] [facility] Oxygen saturation by 2020-09-28 02:48:00 98 /min [facility] Heart Rate 2020-09-28 02:48:00 85 /min [facility] Respiratory rate 2020-09-28 02:48:00 18 /min [facility] Oxygen saturation by 2020-09-28 02:40:00 95 /min [facility] Heart Rate 2020-09-28 02:40:00 87 /min [...] [facility] Heart Rate 2020-09-28 00:00:00 92 /min [facility] Respiratory rate 2020-09-28 00:00:00 20 /min [facility] Body Temperature 2020-09-28 00:00:00 97.8 [degF] [facility] BP Diastolic 2020-09-27 20:00:00 66 mm[Hg] [facility] BP Systolic 2020-09-27 20:00:00 156 mm[Hg] [facility] Oxygen saturation by 2020-09-27 20:00:00 99 /min [facility] Heart Rate 2020-09-27 20:00:00 99 /min [facility] Respiratory rate 2020-09-27 20:00:00 18 /min [facility] Body Temperature 2020-09-27 20:00:00 98.1 [degF] [facility] Oxygen saturation by 2020-09-27 19:53:00 100 /min [facility] Heart Rate 2020-09-27 19:53:00 96 /min [facility] Respiratory rate 2020-09-27 19:53:00 18 /min [facility] Oxygen saturation by 2020-09-27 19:45:00 97 /min [facility] Heart Rate 2020-09-27 19:45:00 99 /min [...] [facility] Heart Rate 2020-09-27 15:21:00 103 /min [facility] Respiratory rate 2020-09-27 15:21:00 20 /min [facility] Body Temperature 2020-09-27 15:21:00 98.5 [degF] [facility] Oxygen saturation by 2020-09-27 14:45:00 99 /min [facility] Heart Rate 2020-09-27 14:45:00 103 /min [facility] Respiratory rate 2020-09-27 14:45:00 20 /min [facility] Oxygen saturation by 2020-09-27 14:30:00 95 /min [facility] Heart Rate 2020-09-27 14:30:00 103 /min [...] [facility] Heart Rate 2020-09-27 11:13:00 88 /min [...] [facility] Heart Rate 2020-09-27 08:15:00 105 /min [facility] Respiratory rate 2020-09-27 08:15:00 16 /min [facility] Body Temperature 2020-09-27 08:15:00 97.6 [degF] [facility] BP Diastolic 2020-09-27 07:58:00 51 mm[Hg] [facility] BP Systolic 2020-09-27 07:58:00 116 mm[Hg] [facility] Oxygen saturation by 2020-09-27 07:58:00 95 /min [facility] Heart Rate 2020-09-27 07:58:00 105 /min [facility] Respiratory rate 2020-09-27 07:58:00 16 /min [facility] Body Temperature 2020-09-27 07:58:00 97.6 [degF] [facility] Oxygen saturation by 2020-09-27 07:15:00 99 /min [facility] Heart Rate 2020-09-27 07:15:00 105 /min [facility] Respiratory rate 2020-09-27 07:15:00 16 /min [facility] Oxygen saturation by 2020-09-27 07:00:00 95 /min [facility] Heart Rate 2020-09-27 07:00:00 105 /min [facility] Respiratory rate 2020-09-27 07:00:00 16 /min [facility] Oxygen saturation by 2020-09-27 00:05:00 100 /min [facility] Heart Rate 2020-09-27 00:05:00 91 /min [facility] Respiratory rate 2020-09-27 00:05:00 20 /min [facility] Oxygen saturation by 2020-09-26 23:50:00 98 /min [facility] Heart Rate 2020-09-26 23:50:00 89 /min [facility] Respiratory rate 2020-09-26 23:50:00 20 /min [facility] BP Diastolic 2020-09-26 20:36:00 69 mm[Hg] [facility] BP Systolic 2020-09-26 20:36:00 114 mm[Hg] [facility] Oxygen saturation by 2020-09-26 20:36:00 98 /min [facility] Heart Rate 2020-09-26 20:36:00 84 /min [facility] Respiratory rate 2020-09-26 20:36:00 18 /min [facility] Body Temperature 2020-09-26 20:36:00 98.1 [degF] [facility] BP Diastolic 2020-09-26 20:00:00 80 mm[Hg] [facility] BP Systolic 2020-09-26 20:00:00 142 mm[Hg] [facility] Oxygen saturation by 2020-09-26 20:00:00 100 /min [facility] Heart Rate 2020-09-26 20:00:00 89 /min [...] [facility] Heart Rate 2020-09-26 16:11:00 89 /min [facility] Respiratory rate 2020-09-26 16:11:00 21 /min [facility] Body Temperature 2020-09-26 16:11:00 98.3 [degF] [facility] Oxygen saturation by 2020-09-26 13:10:00 96 /min [facility] Heart Rate 2020-09-26 13:10:00 94 /min [facility] Respiratory rate 2020-09-26 13:10:00 16 /min [facility] Oxygen saturation by 2020-09-26 12:55:00 96 /min [facility] Heart Rate 2020-09-26 12:55:00 94 /min [facility] Respiratory rate 2020-09-26 12:55:00 16 /min [facility] Oxygen saturation by 2020-09-26 12:35:00 96 /min [facility] Heart Rate 2020-09-26 12:35:00 94 /min [...] [facility] Heart Rate 2020-09-26 12:12:00 100 /min [...] [facility] Heart Rate 2020-09-26 09:22:00 99 /min [facility] Respiratory rate 2020-09-26 09:22:00 26 /min [facility] Body Temperature 2020-09-26 09:22:00 97.4 [degF] [facility] Oxygen saturation by 2020-09-26 08:50:00 98 /min [facility] Heart Rate 2020-09-26 08:50:00 99 /min [facility] Respiratory rate 2020-09-26 08:50:00 26 /min [facility] Oxygen saturation by 2020-09-26 08:35:00 98 /min [facility] Heart Rate 2020-09-26 08:35:00 99 /min [...] [facility] Heart Rate 2020-09-26 07:58:00 99 /min [facility] Respiratory rate 2020-09-26 07:58:00 26 /min [facility] Body Temperature 2020-09-26 07:58:00 97.4 [degF] [facility] BP Diastolic 2020-09-26 04:00:00 40 mm[Hg] [facility] BP Systolic 2020-09-26 04:00:00 112 mm[Hg] [facility] Oxygen saturation by 2020-09-26 04:00:00 98 /min [facility] Heart Rate 2020-09-26 04:00:00 99 /min [facility] Respiratory rate 2020-09-26 04:00:00 20 /min [facility] Body Temperature 2020-09-26 04:00:00 97.0 [degF] [facility] Oxygen saturation by 2020-09-25 20:08:00 100 /min [facility] Heart Rate 2020-09-25 20:08:00 97 /min [facility] Respiratory rate 2020-09-25 20:08:00 20 /min [facility] BP Diastolic 2020-09-25 20:00:00 61 mm[Hg] [facility] BP Systolic 2020-09-25 20:00:00 124 mm[Hg] [facility] Oxygen saturation by 2020-09-25 20:00:00 97 /min [facility] Heart Rate 2020-09-25 20:00:00 99 /min [facility] Respiratory rate 2020-09-25 20:00:00 18 /min [facility] Body Temperature 2020-09-25 20:00:00 97.9 [degF] [facility] Oxygen saturation by 2020-09-25 19:53:00 97 /min [facility] Heart Rate 2020-09-25 19:53:00 94 /min [facility] Respiratory rate 2020-09-25 19:53:00 20 /min [facility] BP Diastolic 2020-09-25 15:48:00 61 mm[Hg] [facility] BP Systolic 2020-09-25 15:48:00 124 mm[Hg] [facility] Oxygen saturation by 2020-09-25 15:48:00 97 /min [facility] Patients [facility] Heart Rate 2020-09-25 15:48:00 99 /min [facility] Respiratory rate 2020-09-25 15:48:00 18 /min [facility] Body Temperature 2020-09-25 15:48:00 98.0 [degF] [facility] Oxygen saturation by 2020-09-25 12:40:00 97 /min [facility] Heart Rate 2020-09-25 12:40:00 109 /min [facility] Respiratory rate 2020-09-25 12:40:00 16 /min [facility] Oxygen saturation by 2020-09-25 12:39:00 97 /min [facility] Heart Rate 2020-09-25 12:39:00 98 /min [facility] Respiratory rate 2020-09-25 12:39:00 22 /min [facility] BP Diastolic 2020-09-25 11:14:00 72 mm[Hg] [facility] BP Systolic 2020-09-25 11:14:00 98 mm[Hg] [facility] Oxygen saturation by 2020-09-25 11:14:00 100 /min [facility] Heart Rate 2020-09-25 11:14:00 98 /min [facility] Respiratory rate 2020-09-25 11:14:00 22 /min [facility] Body Temperature 2020-09-25 11:14:00 97.8 [degF] [facility] BP Diastolic 2020-09-25 09:18:00 62 mm[Hg] [facility] BP Systolic 2020-09-25 09:18:00 135 mm[Hg] [facility] Oxygen saturation by 2020-09-25 09:18:00 98 /min [facility] Heart Rate 2020-09-25 09:18:00 96 /min [facility] Respiratory rate 2020-09-25 09:18:00 18 /min [facility] Body Temperature 2020-09-25 09:18:00 97.9 [degF] [facility] Oxygen saturation by 2020-09-25 08:35:00 98 /min [facility] Heart Rate 2020-09-25 08:35:00 96 /min [facility] Respiratory rate 2020-09-25 08:35:00 18 /min [facility] Oxygen saturation by 2020-09-25 08:20:00 98 /min [facility] Heart Rate 2020-09-25 08:20:00 96 /min [...] [facility] Heart Rate 2020-09-25 07:33:00 96 /min [facility] Respiratory rate 2020-09-25 07:33:00 18 /min [facility] BP Diastolic 2020-09-25 04:00:00 69 mm[Hg] [facility] BP Systolic 2020-09-25 04:00:00 121 mm[Hg] [facility] Oxygen saturation by 2020-09-25 04:00:00 97 /min [facility] Heart Rate 2020-09-25 04:00:00 83 /min [...] [facility] Heart Rate 2020-09-24 23:59:00 97 /min [...] [facility] Heart Rate 2020-09-24 20:32:00 112 /min [facility] Respiratory rate 2020-09-24 20:32:00 18 /min [facility] Body Temperature 2020-09-24 20:32:00 97.7 [degF] [facility] Oxygen saturation by 2020-09-24 20:25:00 98 /min [facility] Heart Rate 2020-09-24 20:25:00 100 /min [facility] Respiratory rate 2020-09-24 20:25:00 20 /min [facility] Oxygen saturation by 2020-09-24 20:10:00 95 /min [facility] Heart Rate 2020-09-24 20:10:00 102 /min [...] [facility] Heart Rate 2020-09-24 20:00:00 112 /min [...] [facility] Heart Rate 2020-09-24 17:13:00 94 /min [facility] Respiratory rate 2020-09-24 17:13:00 16 /min [facility] Body Temperature 2020-09-24 17:13:00 97.7 [degF] [facility] Oxygen saturation by 2020-09-24 14:00:00 100 /min [facility] Heart Rate 2020-09-24 14:00:00 94 /min [facility] Respiratory rate 2020-09-24 14:00:00 16 /min [facility] Oxygen saturation by 2020-09-24 13:45:00 100 /min [facility] Heart Rate 2020-09-24 13:45:00 94 /min [...] [facility] Heart Rate 2020-09-24 08:41:00 94 /min [...] [facility] Heart Rate 2020-09-24 08:30:00 94 /min [facility] Respiratory rate 2020-09-24 08:30:00 18 /min [facility] Body Temperature 2020-09-24 08:30:00 98.6 [degF] [facility] Oxygen saturation by 2020-09-24 06:50:00 100 /min [facility] Heart Rate 2020-09-24 06:50:00 91 /min [facility] Respiratory rate 2020-09-24 06:50:00 16 /min [facility] Oxygen saturation by 2020-09-24 06:35:00 97 /min [facility] Heart Rate 2020-09-24 06:35:00 87 /min [...] [facility] Heart Rate 2020-09-24 04:00:00 88 /min [facility] Respiratory rate 2020-09-24 04:00:00 18 /min [facility] Body Temperature 2020-09-24 04:00:00 97.7 [degF] [facility] Oxygen saturation by 2020-09-24 01:18:00 97 /min [facility] Heart Rate 2020-09-24 01:18:00 91 /min [facility] Respiratory rate 2020-09-24 01:18:00 18 /min [facility] Oxygen saturation by 2020-09-24 01:10:00 94 /min [facility] Heart Rate 2020-09-24 01:10:00 89 /min [...] [facility] Heart Rate 2020-09-24 00:00:00 92 /min [facility] Respiratory rate 2020-09-24 00:00:00 18 /min [facility] Body Temperature 2020-09-24 00:00:00 98.5 [degF] [facility] BP Diastolic 2020-09-23 21:42:00 83 mm[Hg] [facility] BP Systolic 2020-09-23 21:42:00 146 mm[Hg] [facility] Oxygen saturation by 2020-09-23 21:42:00 94 /min [facility] Heart Rate 2020-09-23 21:42:00 105 /min [...] [facility] Heart Rate 2020-09-23 20:00:00 105 /min [facility] Respiratory rate 2020-09-23 20:00:00 18 /min [facility] Body Temperature 2020-09-23 20:00:00 97.9 [degF] [facility] Oxygen saturation by 2020-09-23 19:18:00 99 /min [facility] Heart Rate 2020-09-23 19:18:00 101 /min [facility] Respiratory rate 2020-09-23 19:18:00 22 /min [facility] Oxygen saturation by 2020-09-23 19:10:00 94 /min [facility] Heart Rate 2020-09-23 19:10:00 98 /min [...] [facility] Heart Rate 2020-09-23 16:11:00 96 /min [facility] Respiratory rate 2020-09-23 16:11:00 18 /min [facility] Body Temperature 2020-09-23 16:11:00 97.8 [degF] [facility] Oxygen saturation by 2020-09-23 14:15:00 98 /min [facility] Heart Rate 2020-09-23 14:15:00 83 /min [facility] Respiratory rate 2020-09-23 14:15:00 20 /min [facility] Oxygen saturation by 2020-09-23 14:00:00 98 /min [facility] Heart Rate 2020-09-23 14:00:00 83 /min [facility] Respiratory rate 2020-09-23 14:00:00 20 /min [facility] BP Diastolic 2020-09-23 08:50:00 63 mm[Hg] [facility] BP Systolic 2020-09-23 08:50:00 142 mm[Hg] [facility] Oxygen saturation by 2020-09-23 08:50:00 98 /min [facility] Heart Rate 2020-09-23 08:50:00 94 /min [...] BP Systolic 2020-09-23 08:39:00 142 mm[Hg] [facility] Oxygen saturation by 2020-09-23 08:39:00 100 /min [facility] Heart Rate 2020-09-23 08:39:00 94 /min [facility] Respiratory rate 2020-09-23 08:39:00 18 /min [facility] Body Temperature 2020-09-23 08:39:00 97.4 [degF] [facility] Oxygen saturation by 2020-09-23 06:45:00 100 /min [facility] Heart Rate 2020-09-23 06:45:00 94 /min [facility] Respiratory rate 2020-09-23 06:45:00 18 /min [facility] Oxygen saturation by 2020-09-23 06:30:00 100 /min [facility] Heart Rate 2020-09-23 06:30:00 94 /min [facility] Respiratory rate 2020-09-23 06:30:00 18 /min [facility] BP Diastolic 2020-09-23 04:30:00 75 mm[Hg] [facility] BP Systolic 2020-09-23 04:30:00 168 mm[Hg] [facility] Oxygen saturation by 2020-09-23 04:30:00 98 /min [facility] Heart Rate 2020-09-23 04:30:00 87 /min [facility] Respiratory rate 2020-09-23 04:30:00 18 /min [facility] Body Temperature 2020-09-23 04:30:00 97.6 [degF] [facility] Oxygen saturation by 2020-09-23 00:40:00 94 /min [facility] Heart Rate 2020-09-23 00:40:00 81 /min [facility] Respiratory rate 2020-09-23 00:40:00 20 /min [facility] BP Diastolic 2020-09-23 00:23:00 76 mm[Hg] [facility] BP Systolic 2020-09-23 00:23:00 141 mm[Hg] [facility] Oxygen saturation by 2020-09-23 00:23:00 94 /min [facility] Heart Rate 2020-09-23 00:23:00 81 /min [facility] Respiratory rate 2020-09-23 00:23:00 18 /min [facility] Body Temperature 2020-09-23 00:23:00 98.1 [degF] [facility] BP Diastolic 2020-09-22 20:04:00 81 mm[Hg] [facility] BP Systolic 2020-09-22 20:04:00 158 mm[Hg] [facility] Oxygen saturation by 2020-09-22 20:04:00 95 /min [facility] Heart Rate 2020-09-22 20:04:00 95 /min [facility] Respiratory rate 2020-09-22 20:04:00 18 /min [facility] Body Temperature 2020-09-22 20:04:00 97.6 [degF] [facility] Oxygen saturation by 2020-09-22 20:02:00 98 /min [facility] Heart Rate 2020-09-22 20:02:00 94 /min [facility] Respiratory rate 2020-09-22 20:02:00 20 /min [facility] Oxygen saturation by 2020-09-22 19:47:00 96 /min [facility] Patients [facility] Heart Rate 2020-09-22 19:47:00 95 /min [facility] Respiratory rate 2020-09-22 19:47:00 20 /min [facility] [facility] Oxygen saturation by 2020-09-22 15:48:00 100 /min [facility] - Pulse oximetry Patients [facility] Heart Rate 2020-09-22 15:48:00 89 /min [facility] Respiratory rate 2020-09-22 15:48:00 24 /min [facility] BP Diastolic 2020-09-22 15:40:00 57 mm[Hg] [facility] BP Systolic 2020-09-22 15:40:00 143 mm[Hg] [facility] Oxygen saturation by 2020-09-22 15:40:00 98 /min [facility] - Pulse oximetry Patients [facility] Heart Rate 2020-09-22 15:40:00 90 /min [facility] Respiratory rate 2020-09-22 15:40:00 22 /min [facility] Body Temperature 2020-09-22 15:40:00 97.6 [degF] [facility] Oxygen saturation by 2020-09-22 15:33:00 96 /min [facility] - Pulse oximetry Patients [facility] Heart Rate 2020-09-22 15:33:00 88 /min [facility] Respiratory rate 2020-09-22 15:33:00 24 /min [facility] BP Diastolic 2020-09-22 11:44:00 65 mm[Hg] [facility] BP Systolic 2020-09-22 11:44:00 165 mm[Hg] [facility] Oxygen saturation by 2020-09-22 11:44:00 100 /min [facility] - Pulse oximetry Patients [facility] Heart Rate 2020-09-22 11:44:00 81 /min [facility] Respiratory rate 2020-09-22 11:44:00 23 /min [facility] Body Temperature 2020-09-22 11:44:00 97.9 [degF] [facility] Oxygen saturation by 2020-09-22 11:25:00 100 /min [facility] - Pulse oximetry Patients [facility] Heart Rate 2020-09-22 11:25:00 88 /min [facility] Oxygen saturation by 2020-09-22 11:10:00 96 /min [facility] - Pulse oximetry Patients [facility] Heart Rate 2020-09-22 11:10:00 84 /min [...] [facility] - Pulse [facility]ximetry Patients [facility] Heart Rate 2020-09-22 09:27:00 84 /min [...] [facility] - Pulse [facility]ximetry Patients [facility] Heart Rate 2020-09-22 08:00:00 84 /min [...] [facility] - Pulse oximetry Patients [facility] Heart Rate 2020-09-22 03:50:00 93 /min [facility] Respiratory rate 2020-09-22 03:50:00 24 /min [facility] Body Temperature 2020-09-22 03:50:00 97.9 [degF] [facility] Oxygen saturation by 2020-09-22 02:17:00 100 /min [facility] - Pulse oximetry Patients [facility] Heart Rate 2020-09-22 02:17:00 92 /min [facility] Respiratory rate 2020-09-22 02:17:00 20 /min [facility] Oxygen saturation by 2020-09-22 02:02:00 100 /min [facility] - Pulse oximetry Patients [facility] Heart Rate 2020-09-22 02:02:00 88 /min [...] [facility] - Pulse oximetry Patients [facility] Heart Rate 2020-09-22 00:02:00 72 /min [...] [facility] - Pulse [facility]ximetry Patients [facility] Heart Rate 2020-09-21 20:07:00 84 /min [facility] Respiratory rate 2020-09-21 20:07:00 24 /min [facility] Patients [facility] [place] Body Temperature 2020-09-21 20:07:00 98.6 [degF] [facility] Oxygen saturation by 2020-09-21 20:02:00 97 /min [facility] Pulse [facility]xim[facility] Patients [facility] Heart Rate 2020-09-21 20:02:00 80 /min [facility] Heart Rate 2020-09-21 20:00:00 78 /min [...] [facility] - Pulse oximetry Patients [facility] Heart Rate 2020-09-21 16:00:00 78 /min [...] [facility] - Pulse oximetry Patients [facility] Heart Rate 2020-09-21 13:02:00 70 /min [facility] Respiratory rate 2020-09-21 13:02:00 18 /min [facility] Body Temperature 2020-09-21 13:02:00 98.3 [degF] [facility] Oxygen saturation by 2020-09-21 10:15:00 96 /min [facility] - Pulse oximetry Patients [facility] Heart Rate 2020-09-21 10:15:00 72 /min [...] [facility] - Pulse oximetry Patients [facility] Heart Rate 2020-09-21 09:08:00 63 /min [facility] Respiratory rate 2020-09-21 09:08:00 17 /min [facility] Patients [facility] Body Temperature 2020-09-21 09:08:00 98.0 [degF] [facility] BP Diastolic 2020-09-21 08:58:00 63 mm[Hg] [facility] BP Systolic 2020-09-21 08:58:00 150 mm[Hg] [facility] Oxygen saturation by 2020-09-21 08:58:00 95 /min [facility] - Pulse oximetry Patients [facility] Heart Rate 2020-09-21 08:58:00 63 /min [facility] Respiratory rate 2020-09-21 08:58:00 17 /min [facility] Body Temperature 2020-09-21 08:58:00 98.0 [degF] [facility] BP Diastolic 2020-09-21 07:38:00 63 mm[Hg] [facility] BP Systolic 2020-09-21 07:38:00 150 mm[Hg] [facility] Oxygen saturation by 2020-09-21 07:38:00 95 /min [facility] - Pulse [facility]ximetry Patients [facility] Heart Rate 2020-09-21 07:38:00 63 /min [facility] Respiratory rate 2020-09-21 07:38:00 17 /min [facility] Body Temperature 2020-09-21 07:38:00 98.0 [degF] [facility] BP Diastolic 2020-09-21 04:00:00 70 mm[Hg] [facility] BP Systolic 2020-09-21 04:00:00 149 mm[Hg] [facility] Oxygen saturation by 2020-09-21 04:00:00 94 /min [facility] - Pulse oximetry Patients [facility] Heart Rate 2020-09-21 04:00:00 73 /min [...] [facility] - Pulse oximetry Patients [facility] Heart Rate 2020-09-21 00:00:00 76 /min [facility] Respiratory rate 2020-09-21 00:00:00 21 /min [facility] Body Temperature 2020-09-21 00:00:00 98.2 [degF] [facility] BP Diastolic 2020-09-20 20:00:00 69 mm[Hg] [facility] BP Systolic 2020-09-20 20:00:00 155 mm[Hg] [facility] Oxygen saturation by 2020-09-20 20:00:00 94 /min [facility] - Pulse oximetry Patients [facility] Heart Rate 2020-09-20 20:00:00 72 /min [facility] Respiratory rate 2020-09-20 20:00:00 20 /min [facility] Body Temperature 2020-09-20 20:00:00 98.1 [degF] [facility] Oxygen saturation by 2020-09-20 19:53:00 99 /min [facility] - Pulse oximetry Patients [facility] Heart Rate 2020-09-20 19:53:00 72 /min [facility] Patients [facility] Respiratory rate 2020-09-20 19:53:00 16 /min [facility] Oxygen saturation by 2020-09-20 19:45:00 96 /min [facility] - Pulse oximetry Patients [facility] Heart Rate 2020-09-20 19:45:00 75 /min [facility] Respiratory rate 2020-09-20 19:45:00 18 /min [facility] BP Diastolic 2020-09-20 16:36:00 69 mm[Hg] [facility] BP Systolic 2020-09-20 16:36:00 155 mm[Hg] [facility] Oxygen saturation by 2020-09-20 16:36:00 97 /min [facility] - Pulse oximetry Patients [facility] Heart Rate 2020-09-20 16:36:00 73 /min [facility] Respiratory rate 2020-09-20 16:36:00 21 /min [facility] Body Temperature 2020-09-20 16:36:00 98.3 [degF] [facility] BP Diastolic 2020-09-20 15:47:00 60 mm[Hg] [facility] BP Systolic 2020-09-20 15:47:00 133 mm[Hg] [facility] Oxygen saturation by 2020-09-20 15:47:00 94 /min [facility] - Pulse oximetry Patients [facility] Heart Rate 2020-09-20 15:47:00 71 /min [...] [facility] - Pulse oximetry Patients [facility] Heart Rate 2020-09-20 11:55:00 71 /min [facility] Respiratory rate 2020-09-20 11:55:00 19 /min [facility] Body Temperature 2020-09-20 11:55:00 98.1 [degF] [facility] BP Diastolic 2020-09-20 09:06:00 66 mm[Hg] [facility] BP Systolic 2020-09-20 09:06:00 145 mm[Hg] [facility] Oxygen saturation by 2020-09-20 09:06:00 99 /min [facility] - Pulse oximetry Patients [facility] Heart Rate 2020-09-20 09:06:00 86 /min [facility] Respiratory rate 2020-09-20 09:06:00 19 /min [facility] Body Temperature 2020-09-20 09:06:00 98.4 [degF] [facility] BP Diastolic 2020-09-20 08:58:00 66 mm[Hg] [facility] BP Systolic 2020-09-20 08:58:00 145 mm[Hg] [facility] Oxygen saturation by 2020-09-20 08:58:00 99 /min [facility] - Pulse oximetry Patients [facility] Heart Rate 2020-09-20 08:58:00 86 /min [...] [facility] - Pulse oximetry Patients [facility] Heart Rate 2020-09-20 08:55:00 86 /min [...] [facility] Oxygen saturation by 2020-09-20 07:38:00 99 /min [facility] - Pulse oximetry Patients [facility] Heart Rate 2020-09-20 07:38:00 71 /min [facility] Respiratory rate 2020-09-20 07:38:00 19 /min [facility] Patients [facility] Body Temperature 2020-09-20 07:38:00 98.4 [degF] [facility] Oxygen saturation by 2020-09-20 07:05:00 95 /min [facility] - Pulse oximetry Patients [facility] Heart Rate 2020-09-20 07:05:00 82 /min [facility] Respiratory rate 2020-09-20 07:05:00 18 /min [facility] BP Diastolic 2020-09-20 04:00:00 61 mm[Hg] [facility] BP Systolic 2020-09-20 04:00:00 145 mm[Hg] [facility] Oxygen saturation by 2020-09-20 04:00:00 96 /min [facility] - Pulse oximetry Patients [facility] Heart Rate 2020-09-20 04:00:00 66 /min [facility] Respiratory rate 2020-09-20 04:00:00 18 /min [facility] [place] Body Temperature 2020-09-20 04:00:00 97.5 [degF] [facility] BP Diastolic 2020-09-20 00:00:00 56 mm[Hg] [facility] BP Systolic 2020-09-20 00:00:00 133 mm[Hg] [facility] Oxygen saturation by 2020-09-20 00:00:00 98 /min [facility] - Pulse oximetry Patients [facility] Heart Rate 2020-09-20 00:00:00 66 /min [facility] Respiratory rate 2020-09-20 00:00:00 20 /min [facility] Body Temperature 2020-09-20 00:00:00 97.9 [degF] [facility] BP Diastolic 2020-09-19 21:46:00 70 mm[Hg] [facility] BP Systolic 2020-09-19 21:46:00 138 mm[Hg] [facility] Oxygen saturation by 2020-09-19 21:46:00 94 /min [facility] - Pulse oximetry Patients [facility] Heart Rate 2020-09-19 21:46:00 80 /min [facility] Respiratory rate 2020-09-19 21:46:00 18 /min [facility] Body Temperature 2020-09-19 21:46:00 97.4 [degF] [facility] Oxygen saturation by 2020-09-19 20:09:00 95 /min [facility] - Pulse oximetry Patients [facility] Heart Rate 2020-09-19 20:09:00 82 /min [...] [facility] - Pulse oximetry Patients [facility] Heart Rate 2020-09-19 20:00:00 80 /min [...] [facility] - Pulse oximetry Patients [facility] Heart Rate 2020-09-19 15:41:00 80 /min [...] [facility] - Pulse oximetry Patients [facility] Heart Rate 2020-09-19 12:14:00 84 /min [facility] Respiratory rate 2020-09-19 12:14:00 17 /min [facility] BP Diastolic 2020-09-19 11:26:00 79 mm[Hg] [facility] BP Systolic 2020-09-19 11:26:00 204 mm[Hg] [facility] Oxygen saturation by 2020-09-19 11:26:00 96 /min [facility] - Pulse oximetry Patients [facility] Heart Rate 2020-09-19 11:26:00 88 /min [facility] Respiratory rate 2020-09-19 11:26:00 16 /min [facility] Body Temperature 2020-09-19 11:26:00 98.6 [degF] [facility] Oxygen saturation by 2020-09-19 08:10:00 93 /min [facility] - Pulse oximetry Patients [facility] Heart Rate 2020-09-19 08:10:00 97 /min [facility] Respiratory rate 2020-09-19 08:10:00 20 /min [facility] BP Diastolic 2020-09-19 07:37:00 91 mm[Hg] [facility] BP Systolic 2020-09-19 07:37:00 168 mm[Hg] [facility] Oxygen saturation by 2020-09-19 07:37:00 97 /min [facility] - Pulse oximetry Patients [facility] Heart Rate 2020-09-19 07:37:00 83 /min [facility] Respiratory rate 2020-09-19 07:37:00 21 /min [facility] Body Temperature 2020-09-19 07:37:00 98.1 [degF] [facility] BP Diastolic 2020-09-19 07:17:00 91 mm[Hg] [facility] BP Systolic 2020-09-19 07:17:00 168 mm[Hg] [facility] Oxygen saturation by 2020-09-19 07:17:00 97 /min [facility] - Pulse oximetry Patients [facility] Heart Rate 2020-09-19 07:17:00 83 /min [...] [facility] Oxygen saturation by 2020-09-19 05:03:00 93 /min [facility] - Pulse oximetry Patients [facility] Heart Rate 2020-09-19 05:03:00 91 /min [facility] Respiratory rate 2020-09-19 05:03:00 18 /min [facility] Body Temperature 2020-09-19 05:03:00 91.0 [degF] [facility] BP Diastolic 2020-09-19 01:59:00 87 mm[Hg] [facility] BP Systolic 2020-09-19 01:59:00 200 mm[Hg] [facility] Oxygen saturation by 2020-09-19 01:59:00 96 /min [facility] - Pulse oximetry Patients [facility] Heart Rate 2020-09-19 01:59:00 92 /min [facility] Respiratory rate 2020-09-19 01:59:00 18 /min [facility] Body Temperature 2020-09-19 01:59:00 97.7 [degF] [facility] BP Diastolic 2020-09-18 22:57:00 86 mm[Hg] [facility] BP Systolic 2020-09-18 22:57:00 158 mm[Hg] [facility] Oxygen saturation by 2020-09-18 22:57:00 96 /min [facility] - Pulse oximetry Patients [facility] Heart Rate 2020-09-18 22:57:00 68 /min [facility] Respiratory rate 2020-09-18 22:57:00 18 /min [facility] Body Temperature 2020-09-18 22:57:00 97.7 [degF] [facility] BP Diastolic 2020-09-18 21:58:00 86 mm[Hg] [facility] BP Systolic 2020-09-18 21:58:00 158 mm[Hg] [facility] Oxygen saturation by 2020-09-18 21:58:00 96 /min [facility] - Pulse oximetry Patients [facility] Heart Rate 2020-09-18 21:58:00 68 /min [facility] Respiratory rate 2020-09-18 21:58:00 18 /min [facility] Body Temperature 2020-09-18 21:58:00 97.7 [degF] [facility] Oxygen saturation by 2020-09-18 21:16:00 93 /min [facility] - Pulse oximetry Patients [facility] Heart Rate 2020-09-18 21:16:00 97 /min [facility] Respiratory rate 2020-09-18 21:16:00 20 /min [facility] BP Diastolic 2020-09-18 15:41:00 70 mm[Hg] [facility] BP Systolic 2020-09-18 15:41:00 163 mm[Hg] [facility] Oxygen saturation by 2020-09-18 15:41:00 98 /min [facility] - Pulse oximetry Patients [facility] Heart Rate 2020-09-18 15:41:00 84 /min [...] [facility] - Pulse oximetry Patients [facility] Heart Rate 2020-09-18 13:00:00 86 /min [...] Oxygen saturation by 2020-09-18 12:00:00 96 /min [facility]ulse [facility]xim[facility] Patients [facility] Heart Rate 2020-09-18 12:00:00 85 /min [...] [facility] - Pulse oximetry Patients [facility] Heart Rate 2020-09-18 11:00:00 86 /min [...] [facility] - Pulse oximetry Patients [facility] Heart Rate 2020-09-18 10:00:00 80 /min [...] [facility] - Pulse oximetry Patients [facility] Heart Rate 2020-09-18 09:00:00 86 /min [...] [facility] - Pulse oximetry Patients [facility] Heart Rate 2020-09-18 08:00:00 86 /min [facility] Respiratory rate 2020-09-18 08:00:00 15 /min [facility] BP Diastolic 2020-09-18 07:51:00 80 mm[Hg] [facility] BP Systolic 2020-09-18 07:51:00 141 mm[Hg] [facility] Oxygen saturation by 2020-09-18 07:51:00 96 /min [facility] - Pulse oximetry Patients [facility] Heart Rate 2020-09-18 07:51:00 86 /min [facility] Respiratory rate 2020-09-18 07:51:00 17 /min [facility] Body Temperature 2020-09-18 07:51:00 97.7 [degF] [facility] Oxygen saturation by 2020-09-18 07:35:00 97 /min [facility] - Pulse oximetry Patients [facility] Heart Rate 2020-09-18 07:35:00 85 /min [facility] Respiratory rate 2020-09-18 07:35:00 20 /min [facility] BP Diastolic 2020-09-18 07:00:00 80 mm[Hg] [facility] BP Systolic 2020-09-18 07:00:00 141 mm[Hg] [facility] Oxygen saturation by 2020-09-18 07:00:00 97 /min [facility] Pulse oximetry Patients [facility] Heart Rate 2020-09-18 07:00:00 86 /min [facility] Respiratory rate 2020-09-18 07:00:00 17 /min [facility] Body Temperature 2020-09-18 07:00:00 97.7 [degF] [facility] BP Diastolic 2020-09-18 06:00:00 85 mm[Hg] [facility] BP Systolic 2020-09-18 06:00:00 174 mm[Hg] [facility] Oxygen saturation by 2020-09-18 06:00:00 96 /min [facility] - Pulse oximetry Patients [facility] Heart Rate 2020-09-18 06:00:00 95 /min [...] [facility] - Pulse oximetry Patients [facility] Heart Rate 2020-09-18 05:00:00 86 /min [...] [facility] - Pulse oximetry Patients [facility] Heart Rate 2020-09-18 04:00:00 76 /min [...] [facility] - Pulse oximetry Patients [facility] Heart Rate 2020-09-18 03:00:00 89 /min [facility] Respiratory rate 2020-09-18 03:00:00 15 /min [facility] BP Diastolic 2020-09-18 02:00:00 80 mm[Hg] [facility] BP Systolic 2020-09-18 02:00:00 145 mm[Hg] [facility] Oxygen saturation by 2020-09-18 02:00:00 96 /min [facility] - Pulse oximetry Patients [facility] Heart Rate 2020-09-18 02:00:00 95 /min [facility] Respiratory rate 2020-09-18 02:00:00 16 /min [facility] BP Diastolic 2020-09-18 01:00:00 73 mm[Hg] [facility] BP Systolic 2020-09-18 01:00:00 144 mm[Hg] [facility] [facility] Oxygen saturation by 2020-09-18 01:00:00 97 /min [facility] Patients [facility] Heart Rate 2020-09-18 01:00:00 84 /min [facility] Respiratory rate 2020-09-18 01:00:00 19 /min [facility] BP Diastolic 2020-09-18 00:00:00 68 mm[Hg] [facility] BP Systolic 2020-09-18 00:00:00 144 mm[Hg] [facility] Oxygen saturation by 2020-09-18 00:00:00 97 /min [facility] Patients [facility] Heart Rate 2020-09-18 00:00:00 89 /min [facility] Respiratory rate 2020-09-18 00:00:00 [...] [facility] Heart Rate 2020-09-17 23:00:00 90 /min [...] [facility] Heart Rate 2020-09-17 22:03:00 90 /min [facility] Respiratory rate 2020-09-17 22:03:00 18 /min [facility] BP Diastolic 2020-09-17 21:00:00 62 mm[Hg] [facility] BP Systolic 2020-09-17 21:00:00 117 mm[Hg] [facility] Oxygen saturation by 2020-09-17 21:00:00 96 /min [facility]ulse [facility] Patients [facility] Heart Rate 2020-09-17 21:00:00 97 /min [facility] Respiratory rate 2020-09-17 21:00:00 19 /min [facility] Oxygen saturation by 2020-09-17 20:08:00 96 /min [facility]ulse [facility] Patients [facility] Heart Rate 2020-09-17 20:08:00 95 /min [...] [facility] Heart Rate 2020-09-17 20:00:00 105 /min [facility] Respiratory rate 2020-09-17 20:00:00 23 /min [facility] BP Diastolic 2020-09-17 19:00:00 81 mm[Hg] [facility] BP Systolic 2020-09-17 19:00:00 172 mm[Hg] [facility] Oxygen saturation by 2020-09-17 19:00:00 94 /min [facility] Patients [facility] Heart Rate 2020-09-17 19:00:00 102 /min [facility] Respiratory rate 2020-09-17 19:00:00 23 /min [facility] Body Temperature 2020-09-17 19:00:00 97.4 [degF] [facility] BP Diastolic 2020-09-17 18:00:00 74 mm[Hg] [facility] BP Systolic 2020-09-17 18:00:00 146 mm[Hg] [facility] Oxygen saturation by 2020-09-17 18:00:00 95 /min [facility]ulse [facility] Patients [facility] Heart Rate 2020-09-17 18:00:00 97 /min [facility] Respiratory rate 2020-09-17 18:00:00 18 /min [facility] BP Diastolic 2020-09-17 17:00:00 73 mm[Hg] [facility] BP Systolic 2020-09-17 17:00:00 134 mm[Hg] [facility] Oxygen saturation by 2020-09-17 17:00:00 94 /min [facility]ulse [facility] Patients [facility] Heart Rate 2020-09-17 17:00:00 106 /min [...] [facility] Heart Rate 2020-09-17 16:00:00 96 /min [facility] Respiratory rate 2020-09-17 16:00:00 32 /min [facility] Body Temperature 2020-09-17 16:00:00 98.6 [degF] [facility] Oxygen saturation by 2020-09-17 15:28:00 94 /min [facility] Pulse [facility] Patients [facility] Heart Rate 2020-09-17 15:28:00 83 /min [facility] Respiratory rate 2020-09-17 15:28:00 26 /min [facility] Oxygen saturation by 2020-09-17 15:27:00 94 /min [facility] Pulse [facility] Patients [facility] Heart Rate 2020-09-17 15:27:00 83 /min [facility] Respiratory rate 2020-09-17 15:27:00 26 /min [facility] BP Diastolic 2020-09-17 15:00:00 84 mm[Hg] [facility] BP Systolic 2020-09-17 15:00:00 181 mm[Hg] [facility] Oxygen saturation by 2020-09-17 15:00:00 98 /min [facility]ulse [facility] Patients [facility] Heart Rate 2020-09-17 15:00:00 93 /min [facility] Respiratory rate 2020-09-17 15:00:00 24 /min [facility] Oxygen saturation by 2020-09-17 14:59:00 94 /min [facility]ulse [facility] Patients [facility] Heart Rate 2020-09-17 14:59:00 84 /min [facility] Respiratory rate 2020-09-17 14:59:00 17 /min [facility] BP Diastolic 2020-09-17 14:00:00 94 mm[Hg] [facility] BP Systolic 2020-09-17 14:00:00 187 mm[Hg] [facility] Oxygen saturation by 2020-09-17 14:00:00 93 /min [facility] Pulse [facility] Patients [facility] Heart Rate 2020-09-17 14:00:00 109 /min [...] [facility] Heart Rate 2020-09-17 13:00:00 112 /min [...] [facility] Heart Rate 2020-09-17 12:00:00 112 /min [...] [facility] Heart Rate 2020-09-17 11:00:00 119 /min [...] [facility] Heart Rate 2020-09-17 09:00:00 88 /min [...] [facility] Heart Rate 2020-09-17 08:00:00 85 /min [...] [facility] Heart Rate 2020-09-17 07:00:00 84 /min [facility] Respiratory rate 2020-09-17 07:00:00 15 /min [facility] BP Diastolic 2020-09-17 06:00:00 87 mm[Hg] [facility] BP Systolic 2020-09-17 06:00:00 159 mm[Hg] [facility] Oxygen saturation by 2020-09-17 06:00:00 96 /min [facility]ulse [facility] Patients [facility] Heart Rate 2020-09-17 06:00:00 83 /min [...] [facility] Heart Rate 2020-09-17 05:00:00 84 /min [...] [facility] Heart Rate 2020-09-17 04:00:00 86 /min [...] [facility] Heart Rate 2020-09-17 03:00:00 90 /min [facility] Respiratory rate 2020-09-17 03:00:00 18 /min [facility] Body Temperature 2020-09-17 03:00:00 97.6 [degF] [facility] BP Diastolic 2020-09-17 02:00:00 75 mm[Hg] [facility] BP Systolic 2020-09-17 02:00:00 154 mm[Hg] [facility] Oxygen saturation by 2020-09-17 02:00:00 95 /min [facility] Pulse [facility] Patients [facility] Heart Rate 2020-09-17 02:00:00 88 /min [...] [facility] Heart Rate 2020-09-17 01:00:00 88 /min [...] [facility]xim[facility] Heart Rate 2020-09-17 00:00:00 92 /min [facility] Respiratory rate 2020-09-17 00:00:00 26 /min [facility] Oxygen saturation by 2020-09-16 23:05:00 95 /min [facility] Pulse [facility] Patients [facility] Heart Rate 2020-09-16 23:05:00 77 /min [facility] Respiratory rate 2020-09-16 23:05:00 17 /min [facility] BP Diastolic 2020-09-16 23:00:00 123 mm[Hg] [facility] BP Systolic 2020-09-16 23:00:00 212 mm[Hg] [facility] Oxygen saturation by 2020-09-16 23:00:00 97 /min [facility] Pulse [facility] Patients [facility] Heart Rate 2020-09-16 23:00:00 83 /min [facility] Respiratory rate 2020-09-16 23:00:00 23 /min [facility] [place] Body Temperature 2020-09-16 23:00:00 97.1 [degF] [facility] BP Diastolic 2020-09-16 22:12:00 76 mm[Hg] [facility] BP Systolic 2020-09-16 22:12:00 137 mm[Hg] [facility] [place] Heart Rate 2020-09-16 22:12:00 80 /min [facility] BP Diastolic 2020-09-16 22:06:00 82 mm[Hg] [facility] BP Systolic 2020-09-16 22:06:00 176 mm[Hg] [facility] Oxygen saturation by 2020-09-16 22:06:00 96 /min [facility]ulse [facility] Patients [facility] Heart Rate 2020-09-16 22:06:00 82 /min [facility] Respiratory rate 2020-09-16 22:06:00 18 /min [facility] [...] [facility] P[facility]xim[facility] Heart Rate 2020-09-16 22:03:00 84 /min [facility] Respiratory rate 2020-09-16 22:03:00 22 /min [facility] BP Diastolic 2020-09-16 22:00:00 86 mm[Hg] [facility] BP Systolic 2020-09-16 22:00:00 206 mm[Hg] [facility] Oxygen saturation by 2020-09-16 22:00:00 96 /min [facility] Pulse [facility] Patients [facility] Heart Rate 2020-09-16 22:00:00 86 /min [facility] Respiratory rate 2020-09-16 22:00:00 19 /min [facility] BP Diastolic 2020-09-16 21:01:00 69 mm[Hg] [facility] BP Systolic 2020-09-16 21:01:00 153 mm[Hg] [facility] Oxygen saturation by 2020-09-16 21:01:00 96 /min [facility] Pulse [facility] Patients [facility] Heart Rate 2020-09-16 21:01:00 85 /min [facility] Respiratory rate 2020-09-16 21:01:00 17 /min [facility] BP Diastolic 2020-09-16 20:44:00 111 mm[Hg] [facility] BP Systolic 2020-09-16 20:44:00 141 mm[Hg] [facility] Oxygen saturation by 2020-09-16 20:44:00 96 /min [facility] Pulse [facility]xim[facility] Patients [facility] Heart Rate 2020-09-16 20:44:00 84 /min [facility] Respiratory rate 2020-09-16 20:44:00 21 /min [facility] Body Temperature 2020-09-16 20:44:00 98.0 [degF] [facility] BP Diastolic 2020-09-16 20:42:00 111 mm[Hg] [facility] BP Systolic 2020-09-16 20:42:00 141 mm[Hg] [facility] Heart Rate 2020-09-16 20:42:00 84 /min [facility] BP Diastolic 2020-09-16 20:24:00 66 mm[Hg] [facility] BP Systolic 2020-09-16 20:24:00 163 mm[Hg] [facility] Heart Rate 2020-09-16 20:24:00 84 /min [facility] BP Diastolic 2020-09-16 20:00:00 88 mm[Hg] [facility] BP Systolic 2020-09-16 20:00:00 185 mm[Hg] [facility] [place] Oxygen saturation by 2020-09-16 20:00:00 96 /min [facility] Pulse [facility]ximetry Patients [facility] Heart Rate 2020-09-16 20:00:00 96 /min [facility] Respiratory rate 2020-09-16 20:00:00 21 /min [facility] Body Temperature 2020-09-16 20:00:00 98.0 [degF] [facility] [place] Oxygen saturation by 2020-09-16 19:40:00 96 /min [facility] Pulse [facility] Patients [facility] Heart Rate 2020-09-16 19:40:00 105 /min [facility] Respiratory rate 2020-09-16 19:40:00 27 /min [facility] Pulse [facility]ximetry Patients [facility] Heart Rate 2020-09-16 16:00:00 108 /min [facility] Heart Rate 2020-09-16 13:00:00 90 /min [...] [facility] Pulse [facility]ximetry Patients [facility] Heart Rate 2020-09-16 12:00:00 101 /min [facility] Respiratory rate 2020-09-16 12:00:00 32 /min [facility] Body Temperature 2020-09-16 12:00:00 97.8 [degF] [facility] Oxygen saturation by 2020-09-16 11:00:00 96 /min [facility] Pulse [facility] Patients [facility] Heart Rate 2020-09-16 11:00:00 79 /min [...] [facility] Pulse [facility]ximetry [facility] Heart Rate 2020-09-16 10:00:00 82 /min [facility] Respiratory rate 2020-09-16 10:00:00 20 /min [facility] Body Temperature 2020-09-16 10:00:00 98.4 [degF] [facility] BP Diastolic 2020-09-16 09:00:00 82 mm[Hg] [facility] BP Systolic 2020-09-16 09:00:00 166 mm[Hg] [facility] Oxygen saturation by 2020-09-16 09:00:00 95 /min [facility] Pulse [facility] Patients [facility] Heart Rate 2020-09-16 09:00:00 82 /min [...] [facility] Pulse [facility]ximetry Patients [facility] Heart Rate 2020-09-16 08:00:00 79 /min [facility] Respiratory rate 2020-09-16 08:00:00 23 /min [facility] BP Diastolic 2020-09-16 07:00:00 110 mm[Hg] [facility] BP Systolic 2020-09-16 07:00:00 173 mm[Hg] [facility] Oxygen saturation by 2020-09-16 07:00:00 95 /min [facility]ulse [facility] Patients [facility] Heart Rate 2020-09-16 07:00:00 73 /min [facility] Respiratory rate 2020-09-16 07:00:00 20 /min [facility] [place] Body Temperature 2020-09-16 07:00:00 98.4 [degF] [facility] BP Diastolic 2020-09-16 06:00:00 78 mm[Hg] [facility] BP Systolic 2020-09-16 06:00:00 178 mm[Hg] [facility] Oxygen saturation by 2020-09-16 06:00:00 93 /min [facility] Pulse [facility] Patients [facility] Heart Rate 2020-09-16 06:00:00 87 /min [facility] Respiratory rate 2020-09-16 06:00:00 19 /min [facility] BP Diastolic 2020-09-16 05:00:00 71 mm[Hg] [facility] [place] BP Systolic 2020-09-16 05:00:00 150 mm[Hg] [facility] Oxygen saturation by 2020-09-16 05:00:00 96 /min [facility] Pulse [facility] Patients [facility] Heart Rate 2020-09-16 05:00:00 89 /min [facility] Respiratory rate 2020-09-16 05:00:00 22 /min [facility] BP Diastolic 2020-09-16 04:00:00 71 mm[Hg] [facility] BP Systolic 2020-09-16 04:00:00 139 mm[Hg] [facility] Oxygen saturation by 2020-09-16 04:00:00 96 /min [facility]ulse [facility] Patients [facility] Heart Rate 2020-09-16 04:00:00 85 /min [...] [facility] Pulse [facility]xim[facility] Heart Rate 2020-09-16 03:00:00 82 /min [...] [facility]xim[facility] Heart Rate 2020-09-16 02:00:00 83 /min [...] [facility] Heart Rate 2020-09-16 01:00:00 84 /min [facility] Respiratory rate 2020-09-16 01:00:00 20 /min [facility] BP Diastolic 2020-09-16 00:00:00 86 mm[Hg] [facility] BP Systolic 2020-09-16 00:00:00 173 mm[Hg] [facility] Oxygen saturation by 2020-09-16 00:00:00 94 /min [facility] Patients [facility] Heart Rate 2020-09-16 00:00:00 77 /min [facility] Respiratory rate 2020-09-16 00:00:00 20 /min [facility] Body Temperature 2020-09-16 00:00:00 98.6 [degF] [facility] BP Diastolic 2020-09-15 23:00:00 59 mm[Hg] [facility] BP Systolic 2020-09-15 23:00:00 143 mm[Hg] [facility] Oxygen saturation by 2020-09-15 23:00:00 95 /min [facility]ulse [facility] Patients [facility] Heart Rate 2020-09-15 23:00:00 79 /min [facility] Respiratory rate 2020-09-15 23:00:00 18 /min [facility] BP Diastolic 2020-09-15 22:00:00 55 mm[Hg] [facility] BP Systolic 2020-09-15 22:00:00 133 mm[Hg] [facility] Oxygen saturation by 2020-09-15 22:00:00 94 /min [facility] Patients [facility] Heart Rate 2020-09-15 22:00:00 78 /min [facility] Respiratory rate 2020-09-15 22:00:00 17 /min [facility] BP Diastolic 2020-09-15 21:00:00 56 mm[Hg] [facility] BP Systolic 2020-09-15 21:00:00 145 mm[Hg] [facility] Oxygen saturation by 2020-09-15 21:00:00 93 /min [facility] P[facility] Patients [facility] Heart Rate 2020-09-15 21:00:00 79 /min [facility] Respiratory rate 2020-09-15 21:00:00 17 /min [facility] Oxygen saturation by 2020-09-15 20:50:00 94 /min [facility] Patients [facility] Heart Rate 2020-09-15 20:50:00 81 /min [facility] Respiratory rate 2020-09-15 20:50:00 18 /min [facility] BP Diastolic 2020-09-15 20:00:00 56 mm[Hg] [facility] BP Systolic 2020-09-15 20:00:00 165 mm[Hg] [facility] Oxygen saturation by 2020-09-15 20:00:00 97 /min [facility] Pulse [facility] Patients [facility] Heart Rate 2020-09-15 20:00:00 76 /min [facility] Respiratory rate 2020-09-15 20:00:00 22 /min [facility] Oxygen saturation by 2020-09-15 19:00:00 96 /min [facility] Pulse [facility] Patients [facility] Respiratory rate 2020-09-15 19:00:00 14 /min [facility] Body Temperature 2020-09-15 19:00:00 98.7 [degF] [facility] BP Diastolic 2020-09-15 18:00:00 115 mm[Hg] [facility] BP Systolic 2020-09-15 18:00:00 154 mm[Hg] [facility] Oxygen saturation by 2020-09-15 18:00:00 94 /min [facility] Pulse [facility] Patients [facility] Heart Rate 2020-09-15 18:00:00 79 /min [facility] Respiratory rate 2020-09-15 18:00:00 19 /min [facility] BP Diastolic 2020-09-15 17:00:00 65 mm[Hg] [facility] BP Systolic 2020-09-15 17:00:00 154 mm[Hg] [facility] Oxygen saturation by 2020-09-15 17:00:00 95 /min [facility] Pulse [facility] Patients [facility] Heart Rate 2020-09-15 17:00:00 71 /min [facility] Respiratory rate 2020-09-15 17:00:00 18 /min [facility] BP Diastolic 2020-09-15 16:00:00 75 mm[Hg] [facility] BP Systolic 2020-09-15 16:00:00 159 mm[Hg] [facility] Oxygen saturation by 2020-09-15 16:00:00 94 /min [facility] Pulse [facility] Patients [facility] Heart Rate 2020-09-15 16:00:00 75 /min [facility] Respiratory rate 2020-09-15 16:00:00 16 /min [facility] BP Diastolic 2020-09-15 15:14:00 71 mm[Hg] [facility] BP Systolic 2020-09-15 15:14:00 169 mm[Hg] [facility] Oxygen saturation by 2020-09-15 15:14:00 100 /min [facility] [facility] Heart Rate 2020-09-15 15:14:00 75 /min [facility] Body Temperature 2020-09-15 15:14:00 97.7 [degF] [facility] BP Diastolic 2020-09-15 15:10:00 66 mm[Hg] [facility] BP Systolic 2020-09-15 15:10:00 156 mm[Hg] [facility] Oxygen saturation by 2020-09-15 15:10:00 100 /min [facility] - Pulse oximetry Patients [facility] Heart Rate 2020-09-15 15:10:00 74 /min [facility] Respiratory rate 2020-09-15 15:10:00 18 /min [facility] BP Diastolic 2020-09-15 14:50:00 84 mm[Hg] [facility] BP Systolic 2020-09-15 14:50:00 176 mm[Hg] [facility] Oxygen saturation by 2020-09-15 14:50:00 100 /min [facility] Patients [facility] Heart Rate 2020-09-15 14:50:00 81 /min [facility] Respiratory rate 2020-09-15 14:50:00 18 /min [facility] BP Diastolic 2020-09-15 14:40:00 94 mm[Hg] [facility] BP Systolic 2020-09-15 14:40:00 200 mm[Hg] [facility] Oxygen saturation by 2020-09-15 14:40:00 97 /min [facility] Patients [facility] Heart Rate 2020-09-15 14:40:00 96 /min [facility] Respiratory rate 2020-09-15 14:40:00 16 /min [facility] BP Diastolic 2020-09-15 14:25:00 96 mm[Hg] [facility] BP Systolic 2020-09-15 14:25:00 175 mm[Hg] [facility] Oxygen saturation by 2020-09-15 14:25:00 98 /min [facility] Patients [facility] Heart Rate 2020-09-15 14:25:00 99 /min [...] L[facility] - Pulse oximetry Patients [facility] Heart Rate 2020-09-15 11:14:00 70 /min [facility] Respiratory rate 2020-09-15 11:14:00 18 /min [facility] Body Temperature 2020-09-15 11:14:00 97.6 [degF] [facility] BP Diastolic 2020-09-15 08:52:00 75 mm[Hg] [facility] BP Systolic 2020-09-15 08:52:00 171 mm[Hg] [facility] Oxygen saturation by 2020-09-15 08:52:00 92 /min [facility] Patients [facility] Heart Rate 2020-09-15 08:52:00 74 /min [...] [facility]ukes - Pulse oximetry Patients [facility] Heart Rate 2020-09-15 07:45:00 74 /min [facility] Respiratory rate 2020-09-15 07:45:00 18 /min [facility] Body Temperature 2020-09-15 07:45:00 97.6 [degF] [facility] BP Diastolic 2020-09-15 04:00:00 56 mm[Hg] [facility] BP Systolic 2020-09-15 04:00:00 156 mm[Hg] [facility] Oxygen saturation by 2020-09-15 04:00:00 93 /min [facility] Heart Rate 2020-09-15 04:00:00 68 /min [facility] Respiratory rate 2020-09-15 04:00:00 18 /min [facility] Body Temperature 2020-09-15 04:00:00 98.4 [degF] [facility] BP Diastolic 2020-09-15 00:00:00 71 mm[Hg] [facility] BP Systolic 2020-09-15 00:00:00 140 mm[Hg] [facility] Oxygen saturation by 2020-09-15 00:00:00 94 /min [facility] Heart Rate 2020-09-15 00:00:00 72 /min [...] Lukes - Pulse oximetry Patients [facility] Heart Rate 2020-09-14 20:27:00 90 /min [facility] Respiratory rate 2020-09-14 20:27:00 20 /min [facility] Body Temperature 2020-09-14 20:27:00 98.5 [degF] [facility] BP Diastolic 2020-09-14 20:00:00 80 mm[Hg] [facility] BP Systolic 2020-09-14 20:00:00 180 mm[Hg] [facility] Oxygen saturation by 2020-09-14 20:00:00 92 /min [facility] Heart Rate 2020-09-14 20:00:00 90 /min [...] Lukes - Pulse oximetry Patients [facility] Heart Rate 2020-09-14 15:47:00 85 /min [facility] Respiratory rate 2020-09-14 15:47:00 16 /min [facility] Body Temperature 2020-09-14 15:47:00 98.1 [degF] [facility] BP Diastolic 2020-09-14 11:15:00 73 mm[Hg] [facility] BP Systolic 2020-09-14 11:15:00 165 mm[Hg] [facility] Oxygen saturation by 2020-09-14 11:15:00 93 /min [facility] Patients [facility] Heart Rate 2020-09-14 11:15:00 89 /min [facility] Respiratory rate 2020-09-14 11:15:00 19 /min [facility] Body Temperature 2020-09-14 11:15:00 98.3 [degF] [facility] BP Diastolic 2020-09-14 07:49:00 67 mm[Hg] [facility] BP Systolic 2020-09-14 07:49:00 166 mm[Hg] [facility] Oxygen saturation by 2020-09-14 07:49:00 93 /min [facility] Heart Rate 2020-09-14 07:49:00 88 /min [facility] Respiratory rate 2020-09-14 07:49:00 18 /min [facility] Body Temperature 2020-09-14 07:49:00 97.9 [degF] [facility] BP Diastolic 2020-09-14 07:31:00 67 mm[Hg] [facility] BP Systolic 2020-09-14 07:31:00 166 mm[Hg] [facility] Oxygen saturation by 2020-09-14 07:31:00 93 /min [facility] Patients [facility] Heart Rate 2020-09-14 07:31:00 88 /min [facility] Respiratory rate 2020-09-14 07:31:00 18 [...] Lukes - Pulse oximetry Patients [facility] Heart Rate 2020-09-14 04:00:00 94 /min [facility] Respiratory rate 2020-09-14 04:00:00 18 /min [facility] Body Temperature 2020-09-14 04:00:00 97.9 [degF] [facility] BP Diastolic 2020-09-14 00:00:00 77 mm[Hg] [facility] BP Systolic 2020-09-14 00:00:00 178 mm[Hg] [facility] Oxygen saturation by 2020-09-14 00:00:00 95 /min [facility] Heart Rate 2020-09-14 00:00:00 90 /min [...] Lukes - Pulse oximetry Patients [facility] Heart Rate 2020-09-13 20:12:00 88 /min [...] Lukes - Pulse oximetry Patients [facility] Heart Rate 2020-09-13 20:00:00 88 /min [...] Lukes - Pulse oximetry Patients [facility] Heart Rate 2020-09-13 16:11:00 78 /min [...] Lukes - Pulse oximetry Patients [facility] Heart Rate 2020-09-13 12:08:00 82 /min [...] - Patients [facility] Oxygen saturation by 2020-09-13 11:16:00 95 /min [facility] Patients [facility] Heart Rate 2020-09-13 11:16:00 79 /min [facility] Respiratory rate 2020-09-13 11:16:00 18 /min [facility] Body Temperature 2020-09-13 11:16:00 97.4 [degF] [facility] BP Diastolic 2020-09-13 08:45:00 79 mm[Hg] [facility] BP Systolic 2020-09-13 08:45:00 151 mm[Hg] [facility] Oxygen saturation by 2020-09-13 08:45:00 95 /min [facility] Patients [facility] Heart Rate 2020-09-13 08:45:00 79 /min [...] Lukes - Pulse oximetry Patients [facility] Heart Rate 2020-09-13 04:00:00 87 /min [...] Lukes - Pulse oximetry Patients [facility] Heart Rate 2020-09-13 00:00:00 76 /min [...] Lukes - Pulse oximetry Patients [facility] Heart Rate 2020-09-12 22:28:00 96 /min [...] Lukes - Pulse oximetry Patients [facility] Heart Rate 2020-09-12 22:18:00 96 /min [facility] Respiratory rate 2020-09-12 22:18:00 18 /min [facility] Body Temperature 2020-09-12 22:18:00 97.9 [degF] [facility] BP Diastolic 2020-09-12 20:23:00 92 mm[Hg] [facility] BP Systolic 2020-09-12 20:23:00 150 mm[Hg] [facility] Oxygen saturation by 2020-09-12 20:23:00 96 /min [facility] Pulse [facility] Patients [facility] Heart Rate 2020-09-12 20:23:00 95 /min [facility] Respiratory rate 2020-09-12 20:23:00 18 /min [facility] Body Temperature 2020-09-12 20:23:00 97.9 [degF] [facility] Oxygen saturation by 2020-09-12 20:11:00 96 /min [facility] Patients [facility] Oxygen saturation by 2020-09-12 18:25:00 98 /min [facility] Patients [facility] Oxygen saturation by 2020-09-12 15:35:00 98 /min [facility] Procedures Procedure Date / Time Performing Clinician Source Performed XR CHEST 1 VW PORTABLE 2021-07-12 01:01:53 Freeman Crabtree [facility] COVID-19 ANTI-SPIKE IGG 2021-07-11 10:41:00 [facility] ANTIBODY TITER COVID-19 SEROLOGY PATIENT 2021-07-11 10:41:00 [facility] SURVEILLANCE HC COMPLETE BLD COUNT 2021-07-11 10:41:00 [facility] W/AUTO DIFF BASIC METABOLIC PANEL 2021-07-11 10:41:00 [facility] ESTIMATED GFR 2021-07-11 10:41:00 [facility] URINE CULTURE 2021-07-11 06:57:00 [facility]EN AND 2021-07-11 04:07:00 Latrell Sharpe [facility] MICROSCOPY, WITH REFLEX TO CULTURE POC GLUCOSE 2021-07-11 00:27:00 [facility] POC GLUCOSE 2021-07-10 14:52:00 [facility] HC COMPLETE BLD COUNT 2021-07-10 10:51:00 [facility] W/AUTO DIFF BASIC METABOLIC PANEL 2021-07-10 10:51:00 [facility] ESTIMATED GFR 2021-07-10 10:51:00 [facility] POC GLUCOSE 2021-07-10 02:09:[address] [facility] [address] CHEST WO CONTRAST 2021-07-09 21:47:19 Latrell Sharpe [facility] HC COMPLETE BLD COUNT 2021-07-09 11:14:00 [facility] W/AUTO DIFF BASIC METABOLIC PANEL 2021-07-09 11:14:00 [facility] ESTIMATED GFR 2021-07-09 11:14:00 [facility] BLOOD CULTURE, AEROBIC & 2021-07-09 08:54:00 [facility] Trav R. TROPONIN T 2021-07-09 07:57:00 [facility] THYROID STIMULATING 2021-07-09 07:57:00 [facility] HORMONE T4, FREE 2021-07-09 07:57:00 [facility] LIPID PANEL 2021-07-09 07:57:00 [facility] INTERLEUKIN 6 2021-07-09 07:57:00 [facility] CRP HIGH SENSITIVITY 2021-07-09 07:57:00 [facility] LDH 2021-07-09 07:57:00 [facility] D-DIMER 2021-07-09 07:57:00 [facility] PROCALCITONIN 2021-07-09 07:57:00 [facility] PROTHROMBIN TIME WITH INR 2021-07-09 07:57:00 [facility] SEDIMENTATION RATE 2021-07-09 07:57:00 [facility] FERRITIN LEVEL 2021-07-09 07:57:00 [facility] ECG 12-LEAD 2021-07-09 06:58:43 [facility] XR CHEST 1 VW PORTABLE 2021-07-09 05:32:00 [facility] Trav R. TROPONIN T 2021-07-09 04:50:[address] [facility] [address] HEAD WO CONTRAST 2021-07-09 01:50:00 [facility] Trav RChun COVID-19 QUALITATIVE 2021-07-09 01:34:00 [facility] RT-PCR Trav RChun COVID-19 OMICRON VARIANT 2021-07-09 01:34:00 [facility] QUALITATIVE RT-PCR Trav RChun HC COMPLETE BLD COUNT 2021-07-09 01:34:00 [facility] W/AUTO DIFF Trav RChun PROTHROMBIN TIME WITH INR 2021-07-09 01:34:00 [facility] Trav RChun PARTIAL THROMBOPLASTIN 2021-07-09 01:34:00 [facility] TIME (PTT) Trav R. BASIC METABOLIC PANEL 2021-07-09 01:34:00 [facility] Trav R. TROPONIN T 2021-07-09 01:34:00 [facility] B NATRIURETIC PEPTIDE 2021-07-09 01:34:00 [facility] Trav R. ESTIMATED GFR 2021-07-09 01:34:00 [facility] Trav [place] ECG 12-LEAD 2021-07-08 22:51:26 [facility] RENAL STONE PROTOCOL 2021-07-01 18:38:22 [facility] URINALYSIS 2021-07-01 18:13:00 [facility] HC COMPLETE BLD COUNT 2021-04-23 10:03:00 [facility] W/AUTO DIFF BASIC METABOLIC PANEL 2021-04-23 10:03:00 [facility] ESTIMATED GFR 2021-04-23 10:03:[address] [facility] [address] CARDIAC OVERREAD 2021-04-20 15:36:45 Bebeto [facility] CV CTA CORONARY ARTERIES 2021-04-20 15:36:00 Jaclyn Tate [facility] W CONTRAST HC COMPLETE BLD COUNT 2021-04-20 11:45:00 [facility]/AUTO DIFF BASIC METABOLIC PANEL 2021-04-20 11:45:00 [facility] ESTIMATED GFR 2021-04-20 11:45:00 [facility] POC GLUCOSE 2021-04-19 13:28:00 [facility] CV CARDIAC PET STRESS 2021-04-19 13:18:51 [facility] PET MYOCARDIAL 2021-04-19 13:18:51 Bebeto [facility] PERFUSION IMAGING TROPONIN 2021-04-19 09:43:00 Jaclyn Tate Ho spital BASIC METABOLIC PANEL 2021-04-19 09:43:00 Bebeto [facility] ESTIMATED GFR 2021-04-19 09:43:00 Jaclyn Tate spital TTE LIMITED W CONTRAST, W 2021-04-18 17:20:00 Bebeto [facility] DOPPLER ([id number]) HC COMPLETE BLD COUNT 2021-04-18 14:31:00 [facility] W/AUTO DIFF BASIC METABOLIC PANEL 2021-04-18 14:31:00 [facility] ESTIMATED GFR 2021-04-18 14:31:00 [facility] B NATRIURETIC PEPTIDE 2021-04-18 09:20:00 [facility] COMPLETE [facility]LD COUNT 2021-04-16 08:35:00 [facility] W/AUTO DIFF BASIC METABOLIC PANEL 2021-04-16 08:35:00 [facility] ESTIMATED GFR 2021-04-16 08:35:00 [facility] POC GLUCOSE 2021-04-15 15:09:00 [facility] BASIC METABOLIC PANEL 2021-04-14 09:00:00 [facility] ESTIMATED GFR 2021-04-14 09:00:00 [facility] HC COMPLETE BLD COUNT 2021-04-14 08:40:00 [facility] W/AUTO DIFF PARTIAL THROMBOPLASTIN 2021-04-14 08:40:00 [facility] (PTT[facility] PARTIAL THROMBOPLASTIN 2021-04-13 [facility]:47[facility] COMPLETE BLD COUNT 2021-04-13 15:52:00 [facility] W/AUTO DIFF HC COMPLETE BLD COUNT 2021-04-13 11:34:00 [facility] W/AUTO DIFF SMEAR REVIEW 2021-04-13 11:34:00 [facility] HC COMPLETE BLD COUNT 2021-04-13 09:55:00 [facility] W/AUTO DIFF BASIC METABOLIC PANEL 2021-04-13 09:55:00 [facility] B NATRIURETIC PEPTIDE 2021-04-13 09:55:00 [facility] 2021-04-13 09:55:00 [facility] PARTIAL THROMBOPLASTIN 2021-04-13 09:55:00 Attar, [facility] TIME (PTT) TROPONIN 2021-04-13 09:00:00 AttRafy biswasJaclynilan Burns spital PARTIAL THROMBOPLASTIN 2021-04-13 02:20:00 Attzulay [facility] TIME (PTT) TROPONIN 2021-04-12 23:00:00 Char Palomo spital TROPONIN 2021-04-12 15:34:00 Char Palomo spital PROTHROMBIN TIME WITH INR 2021-04-12 15:34:00 Attzulay [facility] PARTIAL THROMBOPLASTIN 2021-04-12 15:34:00 Attzulay [facility] TIME (PTT) ANTI XA APIXABAN 2021-04-12 15:34:00 AttJaclyn biswas H ospital TTE COMPLETE, WO 2021-04-12 14:14:00 Rafy Tateammilan Burns ospital CONTRAST, W DOPPLER ([id number]) TROPONIN 2021-04-12 09:21:00 Char Palomo spital B NATRIURETIC PEPTIDE 2021-04-12 09:21:00 Char Palomo [facility] MAGNESIUM LEVEL 2021-04-12 09:21:00 Char Palomo spital PHOSPHORUS LEVEL 2021-04-12 09:21:00 Char Palomo ospital XR CHEST 1 VW PORTABLE 2021-04-12 08:46:00 [facility] ECG 12-LEAD 2021-04-12 08:03:09 [facility] COVID-19 ANTI-SPIKE IGG 2021-04-12 08:01:00 [facility] ANTIBODY TITER COVID-19 SEROLOGY PATIENT 2021-04-12 08:01:00 [facility] SURVEILLANCE HC COMPLETE BLD COUNT 2021-04-12 08:01:00 [facility] W/AUTO DIFF BASIC METABOLIC PANEL 2021-04-12 08:01:00 [facility] LIPID PANEL 2021-04-12 08:01:00 [facility] THYROID STIMULATING 2021-04-12 08:01:00 [facility] HORMONE T4, FREE 2021-04-12 08:01:00 [facility] ESTIMATED GFR 2021-04-12 08:01:00 [facility] RESPIRATORY PATHOGEN 2021-04-12 07:27:00 Stacia Char [facility] PANEL WITH COVID-19 RT-PCR US DUPLEX VENOUS LOWER 2021-03-10 01:23:00 [facility] EXTREMITY BILATERAL XR CHEST 1 VW 2021-03-10 00:19:00 [facility] Ofelia [facility] Ho spital COMPREHENSIVE METABOLIC 2021-03-10 00:17:00 [facility] PANEL CBC WITH PLATELET AND 2021-03-10 00:17:00 [facility] DIFFERENTIAL B NATRIURETIC PEP, I-STAT 2021-03-10 00:17:[address] [facility] TROPONIN, I-STAT 2021-03-10 00:17:00 [facility] Ofeliamolly HerreraPentecostal H ospital ESTIMATED GFR 2021-03-10 00:17:00 [facility] spital MANUAL DIFFERENTIAL 2021-03-10 00:17:00 [facility] ECG ED PRELIMINARY 2021-03-10 00:16:14 [facility] INTERPRETATION ECG 12-LEAD 2021-03-09 23:55:17 [facility] spital HC COMPLETE BLD COUNT 2021-02-23 09:51:00 [facility] W/AUTO DIFF BASIC METABOLIC PANEL 2021-02-23 09:51:00 [facility] ESTIMATED GFR 2021-02-23 09:51:00 [facility] HC COMPLETE BLD COUNT 2021-02-22 09:32:00 [facility] W/AUTO DIFF BASIC METABOLIC PANEL 2021-02-22 09:32:00 [facility] ESTIMATED GFR 2021-02-22 09:32:00 [facility] HC COMPLETE BLD COUNT 2021-02-21 09:50:00 [facility] W/AUTO DIFF BASIC METABOLIC PANEL 2021-02-21 09:50:00 [facility] LIPID PANEL 2021-02-21 09:50:00 [facility] ESTIMATED GFR 2021-02-21 09:50:00 [facility] COVID-19 ANTI-SPIKE IGG 2021-02-20 23:58:00 [facility] ANTIBODY TITER COVID-19 SEROLOGY PATIENT 2021-02-20 23:58:00 [facility] SURVEILLANCE THYROID STIMULATING 2021-02-20 23:58:00 [facility] HORMONE T4, FREE 2021-02-20 23:58:00 [facility] FERRITIN LEVEL 2021-02-20 23:58:00 [facility] LDH 2021-02-20 23:58:00 [facility] SEDIMENTATION RATE 2021-02-20 23:58:00 [facility] CRP HIGH SENSITIVITY 2021-02-20 23:58:00 [facility] INTERLEUKIN 6 2021-02-20 23:58:00 [facility] PROCALCITONIN 2021-02-20 23:58:00 [facility] D-DIMER 2021-02-20 23:58:00 [facility] PROTHROMBIN TIME WITH INR 2021-02-20 23:58:00 [facility] TROPONIN, I-STAT 2021-02-20 15:35:00 [facility] COVID-19 QUALITATIVE 2021-02-20 14:41:00 [facility]el [facility] ANGIOGRAM PE CHEST 2021-02-20 13:52:50 Osmel Fowler [facility] US DUPLEX VENOUS LOWER 2021-02-20 12:59:12 Isaac Quiles [facility] EXTREMITY RIGHT Narendra URINALYSIS 2021-02-20 12:35:00 Isaac Quiles Ho spital Narendra XR CHEST 1 VW PORTABLE 2021-02-20 12:15:13 Kb [facility] Narendra BASIC METABOLIC PANEL 2021-02-20 12:10:00 Isaac Quiles [facility] Narendra ESTIMATED GFR 2021-02-20 12:10:00 Isaac Quiles spital Narendra RESPIRATORY PATHOGEN 2021-02-20 12:05:00 Kb [facility] PANEL WITH COVID-19 Narendra RT-PCR COMPREHENSIVE METABOLIC 2021-02-20 11:55:00 Kb [facility] PANEL Narendra CBC WITH PLATELET AND 2021-02-20 11:55:00 Isaac Quiles [facility] DIFFERENTIAL Narendra CREATINE KINASE, TOTAL 2021-02-20 11:55:00 Kb [facility] (CPK) Narendra TROPONIN, I-STAT 2021-02-20 11:55:00 Vadim Calix [facility] ESTIMATED GFR 2021-02-20 11:55:00 Isaac Quiles spital Narendra PROTHROMBIN TIME WITH 2021-02-20 11:55:00 Kb [facility] INR, I-STAT Narendra MANUAL DIFFERENTIAL 2021-02-20 11:55:00 [facility] ECG 12-LEAD 2021-02-20 11:33:15 Isaac Quiles spital Narendra ECG ED PRELIMINARY 2021-02-20 11:32:10 Isaac Quiles [facility] INTERPRETATION Narendra PHYSICIAN ORDERS 2021-01-24 05:01:00 Doctor Unassigned, [facility] CERVICAL SPINE WO 2021-01-16 05:11:15 Mumtaz Swanson [facility] CONTRAST [facility] CT HEAD WO CONTRAST 2021-01-16 05:11:15 Mumtaz Swanson [facility] NOTICE OF PRIVACY 2021-01-16 04:10:39 Doctor Unassigned, [facility] PRACTICES [facility] HEAD WO CONTRAST 2021-01-11 01:54:48 Sushma Juarez [facility] CONSENT/REFUSAL FOR 2021-01-10 23:21:01 [facility]assigned, [facility] DIAGNOSIS AND TREATMENT [facility] NOTICE OF PRIVACY 2020-12-29 19:06:49 Doctor Unassigned, [facility] PRACTICES [facility] CONSENT/REFUSAL FOR 2020-12-29 19:06:22 [facility]igned, [facility] DIAGNOSIS AND TREATMENT [facility] ASSIGNMENT OF BENEFITS 2020-12-29 19:06:04 Doctor [facility], [facility] ASSIGNMENT OF BENEFITS 2020-12-29 17:51:14 Doctor Unassigned, [facility] HC COMPLETE BLD COUNT 2020-12-03 10:00:00 [facility] W/AUTO DIFF BASIC METABOLIC PANEL 2020-12-03 09:00:00 [facility] ESTIMATED GFR 2020-12-03 09:00:00 [facility] MRI BRAIN WO CONTRAST 2020-12-02 17:48:00 [facility] BASIC METABOLIC PANEL 2020-12-02 08:52:00 [facility] ESTIMATED GFR 2020-12-02 08:52:00 [facility] HC COMPLETE BLD COUNT 2020-12-02 08:38:00 [facility] W/AUTO DIFF US CAROTID DUPLEX 2020-12-01 20:45:00 [facility] BILATERAL TTE COMPLETE, WO 2020-12-01 16:39:21 [facility] CONTR[facility], W DOPPLER ([id number]) HC COMPLETE BLD COUNT 2020-12-01 09:30:00 [facility] W/AUTO DIFF BASIC METABOLIC PANEL 2020-12-01 09:00:00 [facility] ESTIMATED GFR 2020-12-01 09:00:00 [facility] LIPID PANEL 2020-12-01 02:15:00 [facility] THYROID STIMULATING 2020-12-01 02:15:00 [facility] HORMONE T4, FREE 2020-12-01 02:15:00 [facility] TROPONIN 2020-12-01 02:15:00 [facility] HEMOGLOBIN A1C 2020-12-01 01:15:00 [facility] URINALYSIS, AUTOMATED 2020-11-30 22:23:00 [facility] WITH MICROSCOPY Олег COVID-19 QUALITATIVE 2020-11-30 21:44:00 [facility] RT-[facility] HEAD WO CONTRAST 2020-11-30 19:03:25 [facility] CT ANGIOGRAM PE CHEST 2020-11-30 19:03:13 [facility] ECG ED PRELIMINARY 2020-11-30 17:08:13 [facility] INTERPRETATION Олег HC COMPLETE BLD COUNT 2020-11-30 16:15:00 [facility] W/AUTO DIFF [facility] PROTHROMBIN TIME WITH INR 2020-11-30 16:15:00 [facility] PARTIAL THROMBOPLASTIN 2020-11-30 16:15:00 [facility] TIME (PTT) [facility] COMPREHENSIVE METABOLIC 2020-11-30 16:15:00 [facility] PANEL Олег TROPONIN 2020-11-30 16:15:00 [facility] B NATRIURETIC PEPTIDE 2020-11-30 16:15:00 [facility] ESTIMATED GFR 2020-11-30 16:15:00 [facility] 2020-11-30 16:15:00 [facility]ital [facility] ECG 12-LEAD 2020-11-30 15:58:05 [facility] Computed tomography of 2020-09-20 00:00:00 RUSTAM Bruno - chest with contrast Patients [facility] Exploratory laparotomy 2020-09-15 00:00:00 RUSTAM Bruno - [facility] of abdomen and pelvis 2020-03-02 00:00:[address] Bruno - without contrast Patients [facility] EXTERNAL PROVIDER RECORDS 2019-01-27 05:01:00 Doctor Unassigned, [facility] Plan of Care Planned Activity Planned Date Details Comments Source Future Scheduled 2021-08-08 65+ P[facility]OCOCCAL [facility] Test 13:10:32 VACCINE (1 of 4 - PCV13) [code = 65+ PNEUMOCOCCAL VACCINE (1 of 4 - PCV13)] Future Scheduled 2021-08-08 SHINGLES VACCINES (#1) M [facility] Test 13:10:32 [code = SHINGLES VACCINES (#1)] Future Scheduled 2021-08-08 COVID-19 VACCINE (3 - Me [facility] Test 13:10:32 Booster for Moderna series) [code = COVID-19 VACCINE (3 - Booster for Moderna series)] Encounters Start End Encounter Admission Attending Care Care Encounter Source Date/Time Date/Time Type Type Clinicians Facility Department ID 2021-04-30 Emergency [facility] [id number] Univers 09:16:44 ity [facility] 2021-04-30 Emergency [facility] [id number] Univers 08:16:39 [facility] 2020-09-12 Inpatient [facility] [id number] [facility] St[facility] 15:27:00 -[id number] [facility] 2021-10-21 2021-10-26 Inpatient SITA BECKFORD [facility] [id number] [place] 00:00:00 00:00:[address] 2021-09-16 2021-09-16 Emergency EM Thomas, HCACL TERRI [id number] [facility] 04:48:00 10:42:00 [facility] 2021-09-16 2021-09-16 Emergency EM Thomas, HCACL HCACL [id number] [facility] 04:48:00 10:42:00 Justice 13 [facility] 2021-09-05 2021-09-05 Emergency EM Thomas, HCACL HCACL [id number] [facility] 15:16:00 17:36:00 Justice 84 [facility] 2021-09-05 2021-09-05 Emergency EM Thomas, HCACL TERRI [id number] 02 [facility] 15:16:00 17:36:00 [facility] 2021-07-08 2021-07-13 [facility] Jenniferardha Trav Chantelle 1.2.84 0.1 [id number] Methodi 16:46:00 12:51:00 Encounter Vadim Calix 52795.1.[address] 3.430.2.7 Hospit a .3.984544 l .8 2021-07-08 2021-07-08 Travel 1.2.840.1 1.2.576.939 [id number] [facility] 00:00:00 00:00:[address] 3.430.2.7 0.2.7.3.698 Ho spita .3.794746 084.8 l .8 2021-07-01 2021-07-01 Emergency Renee, 1.2.840.1 [id number] Methodi 11:41:00 13:43:[address] 3.430.2.7 Hospit a .3.805038 l .8 2021-06-18 2021-06-18 Outpatient 2030_Biopsy [place] [id number] [place] 12:38:00 12:38:00 [facility] 2021-05-03 2021-05-03 Jared Lopez 1.2.840.1 [id number] Methodi 00:00:00 00:00:00 Ros Fernandez [address]3660.1.[address] 3.430.2.7 Hospit a .3.793233 l .8 2021-04-11 2021-04-23 Hospital Anupam 1.2.840.1 [id number] [facility] 23:25:00 17:41:00 Encounter Vadim Briscoe 51895.1.[address] 3.430.2.7 Hospit a .3.373759 l .8 2021-04-19 2021-04-19 [facility], 1.2.840.1 [id number] 85964 93381 Methodi 07:00:00 23:59:00 Encounter Jaclyn 18499.1.1 627 s t 3.430.2.7 Hospit a .3.223025 l .8 2021-03-09 2021-03-09 Emergency Ofelia Celestin 1.2.840.1 [id number] Methodi 18:40:00 21:02:[address] 3.430.2.7 Hospit a .3.944707 l .8 2021-03-09 2021-03-09 Travel 1.2.840.1 1.2.263.011 3702 [id number] Methodi 00:00:00 00:00:[address] 3.430.2.7 0.2.7.3.698 Ho spita .3.271014 084.8 l .8 2021-02-20 2021-02-23 [facility].2.840[facility]1 [id number] Methodi 06:07:00 13:24:00 Encounter Vadim Calix 47212.1.[address] 3.430.2.7 Hospit a .3.102920 l .8 2021-02-20 2021-02-20 Travel 1.2.840.1 1.2.798.217 4682 [id number] [facility] 00:00:00 00:00:[address] 3.430.2.7 0.2.7.3.698 Ho spita .3.109749 084.8 l .8 2021-01-30 2021-01-30 Outpatient Rebecca DAHL [facility] [id number] Univers 14:30:00 14:30:00 KINA isbell [facility] 2021-01-24 2021-01-24 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, [facility] 1.2.8 40.114 [id number] Univers 15:50:12 16:05:12 Visit David Cruz 350.1.13.1 0 [place] [phone] Mi dical formerly [facility], [facility] [address] [facility] 2021-01-24 2021-01-24 Outpatient R [facility] [id number] Univers 16:00:00 16:00:00 [id number] ity of [facility] 2021-01-24 2021-01-24 [facility] [id number] [facility] 16:00:00 16:00:00 DAVID ity [facility] 2021-01-24 2021-01-24 Orders Doctor DAVID 1.2.840.114 [id number] Univers 00:00:00 00:00:00 Only Unassigned, GREGORY 350.1.13.10 [facility] [place] [facility] 4.2.7.2.686 Flash as [phone] [facility] 009 Branch 2021-01-15 2021-01-16 Emergency Swanson, [facility] 1.2.314.462 3689 [id number] Univers 23:22:00 03:17:00 Mumtaz Tineo 350.1.13.10 i [place] [phone] [facility] 084 Branch 2021-01-10 2021-01-10 Emergency Sagar Holland [facility] 1.2.840.114 [id number] Univers 18:49:00 22:03:00 May Tineo 350.1.13.10 [place] [phone] [facility] 084 Branch 2020-12-29 2020-12-29 [facility] 1.2.840.114 [id number] Univers 14:04:19 23:59:00 Encounter Melody Tineo 350.1.13.10 [place] [id number] [facility] 807 Branch 2020-12-29 2020-12-29 [facility] 1.2.840.114 [id number] Univers 14:00:00 14:03:00 Encounter Melody Tineo 350.1.13.10 [place]2.7.2.686 [place] [facility] [id number] [facility] 807 [place] 2020-12-29 2020-12-29 Outpatient VAL, [facility] [id number] -[id number] Univers 14:00:00 14:00:00 MELODY [id number] ity [facility] 2020-12-29 2020-12-29 [facility] 1.2.840.114 [id number] 81 12:52:54 13:35:06 Visit Melody [facility] 350.1.13.10 [place] 4.2.7.2.686 Professio [phone] [place] [address] Office [facility] One 2020-12-29 2020-12-29 Office [facility] 1.2.840.114 [id number] Univers 12:52:54 13:35:06 Visit Melody [facility] 350.1.13.10 i ty of [place] 4.2.7.2.686 Flash as Professio [phone] Mi dical [address] Office Building One 2020-12-29 2020-12-29 [facility] [id number] Univers 13:00:00 13:00:00 MELODY ity [facility] 2020-12-29 2020-12-29 Orders Doctor DAVID 1.2.840.114 [id number] Univers 00:00:00 00:00:00 Only Unassigned, GREGORY 350.1.13.10 [facility] [facility] 4.2.7.2.686 Flash as [phone] [facility] 009 Branch 2020-11-30 2020-12-04 Hospital Elliot Parkinson 1.2.840.1 [id number] Methodi 10:51:00 15:23:00 Encounter Vadim Calix 65663.1.[address] 3.430.2.7 Hospit a .3.580965 l .8 2020-11-30 2020-11-30 Travel 1.2.840.1 1.2.283.167 9583 [id number] Methodi 00:00:00 00:00:[address] 3.430.2.7 0.2.7.3.698 Ho spita .3.633663 084.8 l .8 2020-09-12 2020-09-28 Discharged 1 SAINI, [facility] [id number] 19:18:00 13:20:00 Inpatient SOUHEIL Patients 99 [facility] 2020-03-02 2020-03-02 Outpatient [facility] [id number] 14:00:00 14:00:00 -[id number] [place] Patient [facility] 2020-03-02 2020-03-02 Registered 3 [facility] [id number] [facility] [address] 13:32:00 13:32:00 Clinic JEANNINE Patients 29 [facility] 2020-02-24 2020-02-24 Outpatient [facility] [id number] 14:00:00 14:00:00 -[id number] [place] Patient [facility] 2020-02-23 2020-02-23 Outpatient [facility] [id number] 12:00:00 12:00:00 -[id number] [place] Patient [facility] 2019-01-27 2019-01-27 Orders Doctor DAVID 1.2.840.114 [id number] Univers 00:00:00 00:00:00 Only Unassigned, GREGORY 350.1.13.10 [facility] 4.2.7.2.686 Flash as [phone] [facility] hemal 009 Branch Results Test Description Test Time Test Comments Results Result Comments Source SARS-CoV-2 (COVID-19) RNA [Presence] in Respiratory sp ecimen by 2021-10-25 04:45:54 MARSHA with probe detection Test Item Value Reference Range Interpretation Comme nts SARS-CoV-2 (COVID-19) RNA [Presence] in Respiratory specimen by Not detected MARSHA with probe detection (test code = 91534-0) Whether patient is employed in a healthcare setting (test code = Un known 79449-1) Whether the patient has symptoms related to condition of interest U nknown (test code = 73649-8) Whether the patient was hospitalized for condition of interest Unkn own (test code = 83581-2) Whether the patient was admitted to intensive care unit (ICU) for U nknown condition of interest (test code = 18361-4) Whether patient resides in a congregate care setting (test code = U nknown 02295-6) status (test code = 26770-1) Unknown Date and time of symptom onset (test code = 48364-0) Unknown SARS-CoV-2 (COVID-19) RNA [Presence] in Respiratory specimen by MARSHA with probe [id number] 22:42:52 Test Item Value Reference Range Interpretation Comments SARS-CoV-2 (COVID-19) RNA Not detected [Presence] in Respiratory specimen by MARSHA with probe detection (test code = 85596-5) Whether patient is employed in a Unknown healthcare setting (test code = 07835-9) Whether the patient has symptoms Unknown related to condition of interest (test code = 88606-7) Whether the patient was Unknown hospitalized for condition of interest (test code = 26409-6) Whether the patient was admitted Unknown to intensive care unit (ICU) for condition of interest (test code = 78500-4) Whether patient resides in a Unknown congregate care setting (test code = 63650-7) status (test code = Unknown 03878-5) Date and time of symptom onset Unknown (test code = 27087-0) - CT C-SPINE W/O [id number] 00:00:00 [facility] : 1930 Sex: M Name: JUSTICE HARDY [facility] [place] : 1930 Age/S: 89 / M [address] [place] [address] Unit #: [id number] Loc: [place] [address] Phys: Kezia Tolbert Acct: [id number] Dis Date: Status: PRE ER PHONE #: [phone] Exam Date: 09/16/2021 05 FAX #: [phone] Reason: FALL OUT OF BED, NECK PAIN EXAMS: CPT CODE: [id number] CT C-SPINE W/O CONT 43488 PROCEDURE INFORMATION: Exam: CT Cervical Spine Without Contrast Exam date and time: 09/16/2021 5:42 AM Age: 89 years old Clinical indication: Other: Fall out of bed, neck pain TECHNIQUE: Imaging protocol: Computed tomography images of the cervical spine without contrast. Radiation optimization: All CT scans at this facility use at least oneof these dose optimization techniques: automated exposure control; mA and/or kV adjustment per patient size (includes targeted exams where dose is matched to clinical indication); or iterative reconstruction. COMPARISON: CT HEAD/BRAIN W/O CONT 09/16/2021 5:39 AM FINDINGS: Bones/joints: Osteopenia. There is no acute fracture of the cervical spine.Loss of the normal cervical lordosis is likely positional. Vertebral body heights are grosslymaintained. Discs/Spinal canal/Neural foramina: There is marked multilevel disc heightloss throughout the cervical spine. Disc osteophyte complexes indent the thecal sac at multiple levels in the cervical spine. Lungs: Lung apices are normal. Vasculature: Thevasculature demonstrates diffuse marked atherosclerotic calcification. Soft tissues: Unremarkable. IMPRESSION: 1. No acute fracture of the cervical spine. 2. Mar ked multilevel cervical spondylosis. at 0601 Reported and signed by: Gerardo Sanchez M.D. CC: Shadi Pritchard MD; Kezia Tolbert Technologist:Maribell Jorge. RT(R)(CT) CTDI: DLP: Trnscb Date/Time: 09/16/2021 (600) [email or web address] Orig Print D/T: S: 09/16/2021 (600) PAGE 1 Signed Report- CT HEAD/BRAIN W/O [id number] 00:00:00 [facility] 1930 Sex: M Name: JUSTICE HARDY [facility] : 1930 Age/S: 89 / M [address] [place] [address] Blvd Unit #: [id number] Loc: [place] [address] Phys: Kezia Tolbert APRNN Acct: [id number] Dis Date: Status: PRE ER PHONE #: [phone] Exam Date: 09/16/2021537 FAX #: [phone] Reason: FALL OUT OF BED, HEAD INJURY EXAMS: CPT CODE: [id number] CT HEAD/BRAIN W/O CONT 81841 PROCEDURE INFORMATION: Exam: CT Head Without Contrast Exam date and time: 09/16/2021 5:39 AM Age: 89 years old Clinical indication: Other: Fall out of bed, head injury TECHNIQUE: Imaging protocol: Computed tomography of the head without contrast. Radiation optimization: All CT scans at this facility use at least one of these dose optimization techn iques: automated exposure control; mA and/or kV adjustment [...] RT(R)(CT) CTDI: DLP: Trnscb Date/Time: 09/16/2021 (604) [email or web address] Orig Print D/T: S: 09/16/2021 (604) PAGE 1 Signed Report- XR CHEST 1 [id number] 00:00:00 [facility] : 1930 Sex: M FAX: Shadi Rosales MD [phone] [place]: St: REG FAX: Kezia Tolbert APR [phone] Name: JUSTICE HARDY [facility] Abdiel Mir : 1930 Age/S: 89/M [address] [place] [address] Unit #: [id number] Loc: [place] [address] Phys: Kezia Tolbert Acct: [id number] Dis Date: Status: REG ER PHONE #: [phone] Exam Date: 09/16/2021 0601 FAX #: [phone] Reason: FALL OUT OF BED EXAMS: CPT CODE: [id number] XR CHEST 1 V 37432 PROCEDURE INFORMATION: Exam: XR Chest Exam date [...] The aorta is unremarkable. Vasculature: There is atheros clerosis of the aorta. Bones/joints: Unremarkable. IMPRESSION: No acute findings. at 0628 Reported and signed by: Minor Hills M.D CC: Shadi Pritchard MD; Kezia Tolbert Technologist: RT Yolanda(R) Trnscrd Date/Time/By: (627) : By: [email or web address] Orig Print D/T: S: 09/16/2021 (627) PAGE 1 Signed Report- XR PELVIS / VIEWS 2021-09-16 00:00:00 [facility] 1930 Sex: M FAX: Shadi Rosales MD [phone] [place]: St: REG FAX: Kezia Tolbert APR [phone] Name: JUSTICE HRADY [facility] [place] : 1930 Age/S: 89/M [address] [place] [address] Unit #: [id number] Loc: [place] [address] Phys: Kezia Tolbert APRNNP Acct: [id number] Dis Date: Status: REG ER PHONE #: [phone] Exam Date: 09/16/2021602 FAX #: [phone] Reason: PELVIC PAIN EXAMS: CPT CODE: [id number] XR PELVIS 1/2 VIEWS 41963 PROCEDURE INFORMATION: Exam: XR Pelvis Exam date [...] Tolbert Technologist: RT Yolanda(Rebecca) Trnscrd Date/Time/By: 09/16/2021 (628) : By: [email or web address] Orig Print D/T: S: 09/16/2021 (628) PAGE 1 Signed Report- XR T-SPINE 3V 2021-09-16 00:00:00 [facility] : 1930 Sex: M FAX: Shadi Rosales MD [phone] [place]: St: REG FAX: Kezia Tolbert APR [phone] Name: HARDY,JUSTICE [facility] : 1930 Age/S: 89/M [address] [place] [address] Unit #: [id number] Loc: [place] [address] Phys: Kezia Tolbert APRNNP Acct: [id number] Dis Date: Status: REG ER PHONE #: [phone] Exam Date: 09/16/2021 0604 FAX #: [phone] Reason: BACK PAIN EXAMS: CPT CODE: [id number] XR T-SPINE 3V 78179 PROCEDURE INFORMATION: Exam: XR Thoracic Spine Exam date and time: 09/16/2021 6:14 AM Age: 89 years old Clinical indication: Other: Back pain TECHNIQUE: Imaging protocol: XR of the thoracic spine. Views: 3 views. AP Lateral Swimmer's COMPARISON: CR XR CHEST 1V 09/16/2021 5:58 AM FINDINGS: Bones/joints: Mildly limited examinationsecondary to underpenetration in the upper thoracic spine and cervicothoracic junction. No definite acute fracture is otherwise present. 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 Soft tissues: Normalparaspinal soft tissues. Notes: If there is further concern or neurological abnormalities on clinical exam, recommend CT or MRI of the thoracic spine for complete assessment. IMPRESSION: 1. Mildly limited examination secondary to underpenetration in theupper thoracic spine and cervicothoracic junction. No definite acute fracture is otherwise present. Follow-up CT may be helpful. 2. 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 at 0630 Reported and signed by: Adrián Fang M.D. CC: Shadi Pritchard MD; Kezia [facility] Technologist: RT Guerrero (R) Trnscrd Date/Time/By: 09/16/2021 (629) : By: [email or web address] Orig Print D/T: S: 09/16/2021 (629) PAGE 1 Signed Report- XR PELVIS /2 [id number] 00:00:00 [facility] ANTONY JUSTICE : 1930 Sex: M FAX: Justice Guzman MD [phone] [place]: St: [facility] FAX: Shadi Rosales MD [phone] Name: JUSTICE HARDY [facility] : 1930 Age/S: 89/M [address] [place] [address] Unit #: [id number] Loc: [place] [address] Phys: Justice Guzman MD Acct: [id number] Dis Date: Status: REG ER PHONE #: [phone] Exam Date: 09/05/2021 1714 FAX #: [phone] Reason: fall EXAMS: CPT CODE: [id number] XR PELVIS 1/2 VIEWS 97199 PROCEDURE INFORMATION: Exam: XR Pelvis Exam date and time: 09/05/2021 5:06 PM Age: 89 years old Clinical indication: Screening exam; Fall TECHNIQUE: Imaging protocol: XR pelvis. Views: 1 or 2 view. COMPARISON: No relevant prior studiesavailable. The AP image of the pelvis demonstrates [...] MD Technologist: RT Luke(R) Trnscrd Date/Time/By: 09/05/2021 (1720) : By: Shantel Orig Print D/T: S: 09/05/2021 (1721) PAGE 1 Signed Report- CT HEAD/BRAIN W/O [id number] 00:00:00 [facility] : 1930 Sex: M Name: JORGE HARDYGO [facility] : 1930 Age/S: 89 / M [address] [place] [address] Unit #: [id number] Loc: [place] [address] Phys: Tierney Cruz [facility] Acct: [id number] Dis Date: Status: REG ER PHONE #: [phone] Exam Date: 09/05/2021 1604 FAX #: [phone] Reason: FALL FROM CHAIR, HEAD PAIN, ON ELIQUIS EXAMS: CPT CODE: [id number] CT HEAD/BRAIN W/O CONT 77073 PROCEDURE INFORMATION: Exam: CT Head Without Contrast [...] air cells are clear. Orbital cavity: The orbitsappear normal. Bones/joints: Unremarkable. No acute fracture. Soft tissues: Unremarkable. IMPRESSION: 1. There is no acute abnormality. 2. There are chronic small vessel disease. at 1623 Reported and signed by: Tom Slater M.D. PAGE 1 Signed Report (CONTINUED) Name: JUSTICE HARDY [facility] : 1930 Age/S: 89 / M [address] [place] [address] Blvd Unit #: [id number] Loc: [place] [address] Phys: Tierney Cruz Acct: [id number] Dis Date: Status: REG ER PHONE #: [phone] Exam Date: 09/05/2021 1604FAX #: [phone] Reason: FALL FROM CHAIR, HEAD PAIN, ON ELIQUIS EXAMS: CPT CODE: [id number] CT HEAD/BRAIN W/O CONT 41465 <Continued> CC: Tierney Cruz Technologist:RT Mariel(R)(CT) CTDI: DLP: Trnscb Date/Time: 09/05/2021 (1622) [email or web address] Orig Print D/T: S: 09/05/2021 (1622) PAGE 2 Signed ReportUrine [id number] 07:18:43 Test Item Value Reference Range Interpretation Comments Urine culture (test SEE COMMENT Bacteriu adilia screen code = 5680491) negative. [facility] [id number] 00:28:29 Test Item Value Reference Range Interpretation Comments POC glucose (test code 140 mg/dL 65-99 H Opera tor Name: Theodore = 64256-0) Ga ID : [id number] able: [facility] Notified rivet flunky Interpretation Abnormal (test code = 83655-8) [facility] 12 [id number] 21:20:43 Test Item Value Reference Range Interpretation Comments Ventricular rate (test code = 253) Atrial rate (test code = 255) MD interval (test code = 266) QRSD interval [...] for LVH, may be normal variant ( [place] product )-Septal infarct , age undetermined-Abnormal ECG- [facility] CampusCv stress [id number] 11:08:47 Test Item Value Reference Range Interpretation Comments Resting HR (test code = 6458651910) Resting BP (test code 132&63 = 5986744929) Peak MET Achieved (test code = 2407109466) Protocol Name (test Lexiscan code = 4058103195) Time in Exercise 00:01:00 Phase (test code = 1396311746) Max Systolic BP (test code = 1269866024) Max Diastolic BP (test code = 1112479256) Max Heart Rate (test code = 0204652441) Max Predicted Heart Rate (test code = 7154664500) Target HR Formula (220 - Age)*100% (test code = 9622508182) Test Indication (test Screening for CAD code = 4817519356) Arrhy During Ex (test code = 2617758570) ECG Interp Before EX (test code = 7155536433) ECG Interp During Ex (test code = 6006228650) Ex Summary Comment (test code = 2881797688) Overall HR Response to Exercise (test code = 8933817528) Overall BP Response To Exercise (test code = 3920824661) Reason for Protocol Complete Termination (test code = 3827019948) Stress Test -Waveform interpreted in Impression (test code report associated with = 7869028498) image study. No interpretation is provided as part of this Stress ECG report.-Electronically Signed By Venu GARCIA, David Camarena ([id number]), assistant production editor Sylvia Henriquez ([id number]) on 04/21/2021 6:08:42 AM [facility] WO LQTZPFHM7647-63-71 01:56:56 No acute intracranial abnormality. CT HEAD [...] and mastoidair cells are clear. Left pseudophakia. [facility], Radiant Results Inft User - 01/10/2021 [...] acute intracranial abnormality.[facility] automated count (number/volume)2020-09-28 05:25:00 Test Item Value Reference Range Interpretation Comments White Blood Count (test code = 6690-2) 10.37 4.8-10.8 [facility] erythrocytes automated count (number/volume)2020-09-28 05:25:00 Test Item Value Reference Range Interpretation Comments Red Blood Count (test code = 789-8) 3.00 4.3-5.7 [facility] hemoglobin measurement (moles/volume)2020-09-28 05:25:00 Test Item Value Reference Range Interpretation Comments Hemoglobin (test code = 05633-0) 9.1 14.0-18.0 [facility] ArlingtonAutom[facility] blood hematocrit (volume fraction)2020-09-28 05:25:00 Test Item Value Reference Range Interpretation Comments Hematocrit (test code = 4544-3) 26.0 38.2-49.6 [facility] Arlington[facility] erythrocyte mean corpuscular dqckxh3535-34-98 05:25:00 Test Item Value Reference Range Interpretation Comments Mean Corpuscular Volume (test code = 86.7 81-99 787-2) [facility] Arlington[facility] erythrocyte mean corpuscular hemoglobin (mass per erythrocyte)2020-09-28 05:25:00 Test Item Value Reference Range Interpretation Comments Mean Corpuscular Hemoglobin (test code 30.3 28-32 = 785-6) [facility] Arlington[facility] erythrocyte mean corpuscular hemoglobin concentration measurement (mass/volume)2020-09-28 05:25:00 Test Item Value Reference Range Interpretation Comments Mean Corpuscular Hemoglobin Concent 35.0 31-35 (test code = 786-4) [facility] ArlingtonRDW DkyQz-Msh4355-82-01 05:25:00 Test Item Value Reference Range Interpretation Comments Red Cell Distribution Width (test code 16.1 11.7-14.4 = 50577-3) [facility] Arlington[facility] blood platelet count (count/volume)2020-09-28 05:25:00 Test Item Value Reference Range Interpretation Comments Platelet Count (test code = 777-3) 253 140-360 [facility] ArlingtonAutom[facility] blood segmented neutrophil count as percentage of total pmryrmmagk1798-87-21 05:25:00 Test Item Value Reference Range Interpretation Comments Neutrophils (%) (Auto) (test code = 77.9 38.7-80.0 03566-2) [facility] Arlington[facility] blood lymphocyte count as percentage ot total hqoatokwfa8714-20-34 05:25:00 Test Item Value Reference Range Interpretation Comments Lymphocytes (%) (Auto) (test code = 12.3 18.0-39.1 736-9) [facility] Arlington[facility] blood monocyte count as percentage of total esetmuczpx1578-45-22 05:25:00 Test Item Value Reference Range Interpretation Comments Monocytes (%) (Auto) (test code = 6.4 4.4-11.3 5905-5) [facility] ArlingtonAutom[facility] blood eosinophil count as percentage of total jvdakzgiup8229-85-19 05:25:00 Test Item Value Reference Range Interpretation Comments Eosinophils (%) (Auto) (test code = 1.8 0.0-6.0 713-8) [facility] ArlingtonAutom[facility] blood basophil count as percentage of total ijuqrdpdyt8254-22-73 05:25:00 Test Item Value Reference Range Interpretation Comments Basophils (%) (Auto) (test code = 0.4 0.0-1.0 706-2) [facility] ArlingtonFluoroscopic procedure less than one hour visejgjr7059-28-94 05:25:00 Test Item Value Reference Range Interpretation Comments IM GRANULOCYTES % (test code = IM 1.2 0.0-1.0 GRANULOCYTES %) [facility] Arlington[facility] blood neutrophil count 2020-09-28 05:25:00 Test Item Value Reference Range Interpretation Comments Neutrophils # (Auto) (test code = 8.1 2.1-6.9 751-8) [facility] ArlingtonBlood lymphocytes count (number/volume) 2020-09-28 05:25:00 Test Item Value Reference Range Interpretation Comments Lymphocytes # (Auto) (test code = 1.3 1.0-3.2 62184-6) [facility] Arlington[facility] monocytes automated count (number/volume)2020-09-28 05:25:00 Test Item Value Reference Range Interpretation Comments Monocytes # (Auto) (test code = 742-7) 0.7 0.2-0.8 [facility] ArlingtonAutom[facility] blood eosinophil count 2020-09-28 05:25:00 Test Item Value Reference Range Interpretation Comments Eosinophils # (Auto) (test code = 0.2 0.0-0.4 711-2) [facility] ArlingtonAutom[facility] blood basophil count (count/volume)2020-09-28 05:25:00 Test Item Value Reference Range Interpretation Comments Basophils # (Auto) (test code = 704-7) 0.0 0.0-0.1 [facility] ArlingtonFluoroscopic procedure less than one hour ldiwfmdm7456-59-24 05:25:00 Test Item Value Reference Range Interpretation Comments Absolute Immature Granulocyte (auto 0.12 0-0.1 (test code = Absolute Immature Granulocyte (auto) [facility] Tylererum or plasma sodium measurement (moles/volume)2020-09-28 05:25:00 Test Item Value Reference Range Interpretation Comments Sodium Level (test code = 2951-2) 132 136-145 [facility] Tylererum or plasma potassium measurement (moles/volume)2020-09-28 05:25:00 Test Item Value Reference Range Interpretation Comments Potassium Level (test code = 2823-3) 3.3 3.5-5.1 [facility] Tylererum or plasma chloride measurement (moles/volume)2020-09-28 05:25:00 Test Item Value Reference Range Interpretation Comments Chloride Level (test code = 2075-0) 106 98-107 [facility] Tylererum or plasma carbon dioxide, total measurement (moles/volume)2020-09-28 05:25:00 Test Item Value Reference Range Interpretation Comments Carbon Dioxide Level (test code = 20 22-29 2027-) [facility] Tylererum or plasma anion owf5977-46-51 05:25:00 Test Item Value Reference Range Interpretation Comments Anion Gap (test code = 89882-6) 9.3 8-16 [facility] Tylererum or plasma urea nitrogen measurement (mass/volume)2020-09-28 05:25:00 Test Item Value Reference Range Interpretation Comments Blood Urea Nitrogen (test code = 18 7- 3094-0) [facility] Tylererum or plasma creatinine measurement (mass/volume)2020-09-28 05:25:00 Test Item Value Reference Range Interpretation Comments Creatinine (test code = 2160-0) 0.83 0.72-1.25 [facility] Tylererum or plasma urea nitrogen/creatinine mass xabal7620-48-45 05:25:00 Test Item Value Reference Range Interpretation Comments BUN/Creatinine Ratio (test code = 6- 3097-3) [facility] ArlingtonEstimated glomerular filtration rate (GFR) iugmjarlsfrlb2640-71-75 05:25:00 Test Item Value Reference Range Interpretation Comments Estimat Glomerular > 60 See_Comment [Automat ed message] The Filtration Rate (test system which generated code = 692745661) this resul t transmitted reference range : 60-. The reference r duane was not used to int erpret this result as normal/abnormal . [facility] ArlingtonGlucose bwltlkhkpsw5330-31-68 05:25:00 Test Item Value Reference Range Interpretation Comments Glucose Level (test code = JFH7291) 104 74-118 [facility] Tylererum or plasma calcium measurement (mass/volume)2020-09-28 05:25:00 Test Item Value Reference Range Interpretation Comments Calcium Level (test code = 49785-5) 7.4 8.4-10.2 [facility] Tylererum or plasma total bilirubin measurement (mass/volume)2020-09-28 05:25:00 Test Item Value Reference Range Interpretation Comments Total Bilirubin (test code = 1975-2) 0.7 0.2-1.2 [facility] ArlingtonFluoroscopic procedure less than one hour iljezzkq8445-31-90 05:25:00 Test Item Value Reference Range Interpretation Comments Aspartate Amino Transf (AST/SGOT) (test 74 5-34 code = Aspartate Amino Transf (AST/SGOT)) [facility] Tylererum or plasma alanine aminotransferase measurement (enzymatic activity/volume)2020-09-28 05:25:00 Test Item Value Reference Range Interpretation Comments Alanine Aminotransferase (ALT/SGPT) 107 0-55 (test code = 1742-6) [facility] Tylererum or plasma protein measurement (mass/volume)2020-09-28 05:25:00 Test Item Value Reference Range Interpretation Comments Total Protein (test code = 2885-2) 4.2 6.5-8.1 [facility] Tylererum or plasma albumin measurement (mass/volume)2020-09-28 05:25:00 Test Item Value Reference Range Interpretation Comments Albumin (test code = 1751-7) 1.9 3.5-5.0 [facility] ArlingtonPlasma globulin measurement (mass/volume) 2020-09-28 05:25:00 Test Item Value Reference Range Interpretation Comments Globulin (test code = 01255-7) 2.3 2.3-3.5 [facility] Tylererum or plasma albumin/globulin mass gobvu4888-58-90 05:25:00 Test Item Value Reference Range Interpretation Comments Albumin/Globulin Ratio (test code = 0.8 0.8-2.0 1759-0) [facility] Tylererum or plasma alkaline phosphatase measurement (enzymatic activity/volume)2020-09-28 05:25:00 Test Item Value Reference Range Interpretation Comments Alkaline Phosphatase (test code = 100 40-150 6768-6) [facility] ArlingtonTroponin I measurement by highly sensitive enzyme ktgsfavvmms5789-07-56 05:25:00 Test Item Value Reference Range Interpretation Comments Troponin I (test code = 58704-3) 0.109 0-0.300 [facility] ArlingtonCHEST SINGLE (PORTABLE)2020-09-26 10:41:00[facility] : 1930 Sex: M [facility] [address] [address] Patient Name: JUSTICE HARDY MR #: [id number] : 1930 Age/Sex: 89/M Req #: [id number] Adm Physician: ZACHARIAH SAINI MD Ordered by: ARASH CASTORENA MD Report #: [id number] Location: MED/SURG Room/Bed: [facility] Procedure: [id number] DX/CHEST SINGLE (PORTABLE) Exam Date: 09/26/20 Exam [...] Transcribed By: AYDEN on 09/26/201047 COPY TO: DENZELADELFOARASH PUTNAM 2 VIEW 2020-09-26 09:13:00 [facility] JUSTICE [facility] : 1930 Sex: [place] [address] Patient Name: JUSTICE HARDY MR #: [id number] : 1930 Age/Sex: 89/M Req #: [id number] Adm Physician: ZACHARIAH SAINI MD Ordered by: JEANNINE SAINI MD Report #: [id number] Location: MED/SURG Room/Bed: [facility] Procedure: [id number] DX/ABDOMEN 2 VIEW Exam Date: 09/26/20 Exam [...] Natriuretic Peptide (test code = 50.2 0-100 92878-6) [facility] Tylererum or plasma amylase measurement (enzymatic activity/volume)2020-09-26 05:17:00 Test Item Value Reference Range Interpretation Comments Amylase Level (test code = 1798-8) 98 25-125 [facility] Tylererum or plasma lipase measurement (enzymatic activity/volume)2020-09-26 05:17:00 Test Item Value Reference Range Interpretation Comments Lipase (test code = 3040-3) 98 8-78 [facility] ArlingtonAB[facility] 2 WPEI5577-15-49 23:59:00 [facility] 1930 Sex: [place] [address] Patient Name: JUSTICE HARDY MR #: [id number] : 1930 Age/Sex: 89/M Req #: [id number] Adm Physician: ZACHARIAH SAINI MD Ordered by: JEANNINE SAINI MD Report #: [id number] Location: MED/SURG Room/Bed: [facility] Procedure: [id number] DX/ABDOMEN 2 VIEW Exam Date: 09/24/20 Exam Time: 2329 REPORT STATUS: Signed EXAM: Abdomen Radiograph 2 View(s) INDICATION: bloody stool [id number] Y COMPARISON: 09/15/2019 FINDINGS: Prosthetic heart valve [...] levels are seen in the right hemiabdomen. [place] lucency in the upper abdomen on the upright view projecting over the T12 vertebral body , likely represents pneumoperitoneum IMPRESSION: 1. Overall appearance of postsurgical ileus with diffuse mildly dilated small bowel and distended air distended colon to the level of the rectum. Distal obstruction is not excluded. Recommend radiographic follow-up until resolution. 2. [place] lucency projecting over the T12 vertebral body may represent pneumoperitoneum as seen on recent chest CT, possibly related to recent surgery. Signed by: Patricia Wheat MD on 09/25/2020 12:48 AM Dictated By: TIESHA WHEAT MD Transcribed By: AYDEN on 09/25/2047 COPY TO: JEANNINE SAINI MDSerum or plasma magnesium measurement (mass/volume)2020-09-23 16:40:00 Test Item Value Reference Range Interpretation Comments Magnesium Level (test code = 61629-6) 1.5 1.3-2.1 [facility] ArlingtonFluor[facility] procedure less than one hour arwfcdkh3146-90-37 08:51:00 Test Item Value Reference Range Interpretation Comments Differential Total Cells Counted (test 100 code = Differential Total Cells Counted) [facility] ArlingtonManual blood neutrophils/100 leukocytes 2020-09-22 08:51:00 Test Item Value Reference Range Interpretation Comments Neutrophils % (Manual) (test code = 86 40-74 25974-2) [facility] blood band neutrophils form/100 lrysmsuehm0302-60-09 08:51:00 Test Item Value Reference Range Interpretation Comments Band Neutrophils % (test code = 764-1) 0 [facility] blood lymphocytes/100 leukocytes 2020-09-22 08:51:00 Test Item Value Reference Range Interpretation Comments Lymphocytes % (Manual) (test code = 7 19-48 737-7) [facility] blood monocytes/100 leukocytes 2020-09-22 08:51:00 Test Item Value Reference Range Interpretation Comments Monocytes % (Manual) (test code = 7 3.4-9.0 744-3) [facility] ArlingtonAutom[facility] reticulocyte count as percentage of total aowufrfeeopv9074-60-24 05:15:00 Test Item Value Reference Range Interpretation Comments Percent Reticulocyte Count (test code = 1.5 0.8-2.2 29594-1) [facility] Tylererum or plasma iron measurement (mass/volume)2020-09-21 05:15:00 Test Item Value Reference Range Interpretation Comments Iron Level (test code = 2498-4) 26 65-175 [facility] Tylererum or plasma iron binding capacity measurement (mass/volume)2020-09-21 05:15:00 Test Item Value Reference Range Interpretation Comments Total Iron Binding Capacity (test code 193 179-195 = 2500-7) [facility] Tylererum or plasma iron saturation measurement (mass fraction)2020-09-21 05:15:00 Test Item Value Reference Range Interpretation Comments Percent Iron Saturation (test code = 13 2502-3) [facility] Tylererum or plasma transferrin measurement (mass/volume)2020-09-21 05:15:00 Test Item Value Reference Range Interpretation Comments Transferrin (test code = 3034-6) 138 174-364 [facility] cobalamin (vitamin B12) measurement (mass/volume)2020-09-21 05:15:00 Test Item Value Reference Range Interpretation Comments Vitamin B12 Level (test code = 17601-2) 591 213816 [facility] Tylererum or plasma folate measurement (mass/volume)2020-09-21 05:15:00 Test Item Value Reference Range Interpretation Comments Folate (test code = 2284-8) 17.8 >3.0 [facility]CT CHEST C5646-76-55 21:42:00 [facility] 1930 Sex: [place] [address] Patient Name: JUSTICE HARDY MR #: [id number] : 1930 Age/Sex: 89/M Req #: [id number] Adm Physician: ZACHARIAH SAINI MD Ordered by: AJ FLYNN DO Report #: [id number] Location: MED/SURG Room/Bed: [facility] Procedure: [id number] CT/CT CHEST W Exam Date: 09/20/20 Exam Time: 2114 REPORT STATUS: Signed EXAM: CT Chest WITH contrast 09/20/2020 9:15 PM INDICATION: PE [id number] 2114 COMPARISON: None TECHNIQUE: Chest was scanned [...] 09/20/202199 COPY TO: AJ FLYNN DO Phosphorus kveeorveoib6935-80-32 03:45:00 Test Item Value Reference Range Interpretation Comments Phosphorus Level (test code = XOD4090) 0.8 2.3-4.7 [facility] ([facility])2020-09-17 15:26:00[facility] : 1930 Sex: [place] [address] Patient Name: JUSTICE HARDY MR #: [id number] : 1930 Age/Sex: 89/M Req #: [id number] Adm Physician: ZACHARIAH SAINI MD Ordered by: ZACHARIAH SAINI MD Report #: [id number] Location: ICU Room/Bed: ICU [facility] Procedure: [id number] DX/CHEST SINGLE (PORTABLE) Exam Date: 09/17/20 Exam Time: 145 REPORT STATUS: Signed EXAMINATION: CHEST SINGLE (PORTABLE) [...] (PT) in platelet poor plasma by coagulation ksege9905-65-96 10:55:00 Test Item Value Reference Range Interpretation Comments Prothrombin Time (test code = 5902-2) 16.5 11.9-14.5 [facility] in Platelet poor plasma by Coagulation iqjlt4747-72-04 10:55:00 Test Item Value Reference Range Interpretation Comments Prothromb Time International Ratio 1.25 (test code = 6301-6) [facility] XRAY LINE PJKFUFJQC8596-08-22 20:57:00[facility] : 1930 Sex: [place] [address] Patient Name: JUSTICE HARDY MR #: [id number] : 1930 Age/Sex: 89/M Req #: [id number] [facility] Physician: ZACHARIAH SAINI MD Ordered by: ZACHARIAH SAINI MD Report #: [id number] Location: ICU Room/Bed: [place] [address] Procedure: [id number] DX/CHEST XRAY LINE PLACEMENT Exam Date: 09/16/20 [...] AYDEN on 09/16/202101 COPY TO: ZACHARIAH SAINI [facility] SINGLE (PORTABLE)2020-09-15 14:55:00 [facility] : 1930 Sex[facility] M [facility] [address] [address] Patient Name: JUSTICE HARDY MR #: [id number] : 1930 Age/Sex: 89/M Req #: [id number] Adm Physician: ZACHARIAH SAINI MD Ordered by: DHARMESH LINARES MD Report #: [id number] Lo cation: MED/SURG Room/Bed: 107-1 Procedure: [id number] DX/CHEST SINGLE (PORTABLE) Exam Date: 09/15/20 Exam [...] AYDEN on 09/15/201456 COPY TO: DHARMESH LINARES MDABDLANE ACUTE SERIES W/TENZIN CXR 2020-09-15 10:17:00 [facility] : 1930 Sex: M [facility] [address] [place], [place] [address] Patient Name: JUSTICE HARDY MR #: [id number] : 1930 Age/Sex: 89/M Req #: [id number] Adm Physician: ZACHARIAH SAINI MD Ordered by: DHARMESH LINARES MD Report #: [id number] Lo cation: MED/SURG Room/Bed: [facility][note 3] Procedure: [id number] DX/ABDOMEN ACUTE SERIES W/PA CXR Exam Date: [...] TO: DHARMESH LINARES MDABDOMEN ACUTE SERIES W/PA [id number] 10:50:00 [facility] : 1930 Sex: [place] [address] Patient Name: JUSTICE HARDY MR #: [id number] : 1930 Age/Sex: 89/M Req #: [id number] [facility] Physician: ZACHARIAH SAINI MD Ordered by: DHARMESH LINARES MD Report #: [id number] cation: MED/SURG Room/Bed: [facility][note 3] Procedure: [id number] DX/ABDOMEN ACUTE SERIES W/PA CXR Exam Date: 09/14/20 Exam Time: 1020 REPORT STATUS: Signed X-ray abdomen acute series with 2 views of the abdomen and a single view of the chest INDICATION: sbo [id number] 1020 Comparison: X-ray dated 09/14/2019. Discussion: Lungs [...] MD 105 Transcribed By: AYDEN on 09/14/20 1052 COPY TO: DHARMESH LINARES MDSerum or plasma creatine kinase measurement (enzymatic activity/volume)2020-09-13 11:24:00 Test Item Value Reference Range Interpretation Comments Creatine Kinase (test code = 2157-6) 385 30-200 [facility] Tylererum or plasma creatine kinase MB measurement (mass/volume)2020-09-13 11:24:00 Test Item Value Reference Range Interpretation Comments Creatine Kinase MB (test code = 2.90 0-5.0 44545-2) [facility] 2 JACG2978-27-44 09:26:00 [facility] : 1930 Sex: [place] [address] Patient Name: JUSTICE HARDY MR #: [id number] : 1930 Age/Sex: 89/M Req #: [id number] Adm Physician: ZACHARIAH SAINI MD Ordered by: SHANNAN CERVANTES MD Report #: [id number] Location: MED/SURG Room/Bed: [facility][note 3] Procedure: [id number] DX/ABDOMEN 2 VIEW Exam Date: 09/13/20 Exam Time: 06 REPORT STATUS: Signed Exam: [...] code = Lactic 0.7 0.5-2.0 Acid Level) [facility] ArlingtonFluor[facility] procedure less than one hour njqhfjcb4225-87-39 19:02:00 Test Item Value Reference Range Interpretation Comments Coronavirus (PCR) (test code = NOT DETECTED NOTDETECTED Coronavirus (PCR)) [facility] A[facility]/PEL WO PJRCINUR-LMLA4683-11-16 17:30:00[facility] JUSTICE [facility] : 1930 Sex: M [place] [address] Patient Name: JUSTICE HARDY MR #: [id number] : 1930 Age/Sex: 89/M Req #: [id number] Adm Physician: Ordered by: SHANNAN CERVANTES MD Report #: [id number] Location: [facility] Room/Bed: Procedure: [id number] HOPD/CT ABD/PEL WO CONTRAST-HOPD Exam Date: 09/12/20 [...] 09/12/201744 COPY TO: SHANNAN CERVANTES MDCT ABDOMEN/PELVIS DE0208-10-95 15:20:00 [facility] [address] [address] Patient Name: JUSTICE HARDY MR #: [id number] : 1930 Age/Sex: 89/M Req #: [id number] [facility] Physician: Mario boyd by: JEANNINE SAINI MD Report #: [id number] Location: CT Room/Bed: Procedure: [id number] CT/CT ABDOMEN/PELVISWO Exam Date: 03/02/20 Exam Time: [...]
[2021-10-30 16:10] LABS: Hematocrit 33.9 % (39.6-49.0); Lymphocytes % 14.5 % (15.3-44.8); MPV 8.2 fL (7.6-11.3); RBC Red Blood Cell Count 4.08 M/uL (4.33-5.43)
[2021-10-30] MEDS ORDERED: NA CHLORIDE 0.9% 500 ML ONE (16:10)
[2021-10-30 16:13] LABS: Urine Blood 1+ (Negative); Urine Glucose Trace (Negative); Urine Protein 1+ (Negative); Urine Specific Gravity >=1.030 (1.005-1.030); Urine pH 5.5 (5.0-7.0)
--- NOTE | 2021-10-30 16:14 | RAD REPORT ---
EXAM DESCRIPTION: CT - Head Brain Wo Cont - 10/30/2021 4:03 pm CLINICAL HISTORY: AMS, weakness COMPARISON: Head Brain Wo Cont dated 08/28/2021 TECHNIQUE: Axial 5 mm thick images of the head were obtained without IV contrast. All CT scans are performed using dose optimization technique as appropriate and may include automated exposure control or mA/KV adjustment according to patient size. FINDINGS: No intracranial hemorrhage, mass, edema or shift of mid-line structures. No cortical based infarction. No cortical edema or sulcal effacement. Moderate severity atrophy changes are present wi th mild to moderate cerebral chronic ischemic change. Patient has very dense symmetric basal ganglia calcifications. No abnormal extra-axial fluid collections. Ventricles are in proportion to the volume loss. Intracranial findings are not clearly different from the August 28 examination. Mastoid air cells and visualized portions of the paranasal sinuses are clear. No acute bony findings. IMPRESSION: Negative non-contrast CT head examination for acute finding. Above detailed findings are stable from August 28 imaging.
[2021-10-30 16:40] LABS: Albumin 3.3 g/dL (3.4-5.0); Bilirubin Total 0.3 mg/dL (0.2-1.0); Potassium 4.5 mmol/L (3.5-5.1); Protein, Total 6.9 g/dL (6.4-8.2)
--- NOTE | 2021-10-30 17:05 | RAD REPORT ---
EXAM DESCRIPTION: RAD - Chest Single View - 10/30/2021 4:38 pm CLINICAL HISTORY: tachypnea COMPARISON: Portable 09/30/2021 TECHNIQUE: AP portable chest image was obtained 10/30/2021 4:38 pm . FINDINGS: Lung volumes are low accentuating the interstitial pattern. No peripheral mass or consolid ation. Interstitial pattern is slightly less prominent than seen on the comparison. Mild cardiomegaly is present due mostly to the low lung volumes. Heart size is similar or diminished from the comparison study. Central vasculature has decreased. Trachea is midline. Sternotomy wires ar e in place. No measurable pleural effusion and no pneumothorax. No acute bony abnormality seen. No ac demetris aortic findings suspected. IMPRESSION: No acute cardiopulmonary process.
--- NOTE | 2021-10-30 17:24 | RAD REPORT ---
EXAM DESCRIPTION: MRI - Brain Wo Cont - 10/30/2021 5:15 pm CLINICAL HISTORY: Transient ischemic attack (TIA), right leg numbness, history of CVA COMPARISON: MRI BRAIN WITHOUT CONTRAST dated 11/30/2007; Head Brain Wo Cont dated 10/30/2021 TECHNIQUE: Sagittal T1-weighted images were obtained along with axial PD, heavily T2-weighted and T2 -FLAIR images. Axial DWI and ADC mapping sequences were also obtained along with coronal heavily T2-w eighted images. FINDINGS: Exam has motion degradation limitation. No intracranial hemorrhage, mass or acute infarction. There is no edema or shift of midline structure s. No extra-axial fluid collections. Olivier-matter/white matter junction is preserved. Signal voids are seen as a normal finding in the major intracranial vessels. Moderate severity atrophy noted with mil d to moderate chronic ischemic change ventricles are in proportion to volume loss. Brainstem, thalamu s and basal ganglia tissues are spared any significant chronic ischemic change. Small focal ischemic insult in the left cerebellum has not change 2007. No globe or orbital content abnormality. No sella or supra sella abnormality. Mastoid air cells and paranasal sinuses are clear of acute finding. IMPRESSION: No infarction or other acute intracranial finding.
[2021-10-30 17:36] LABS: SARS-COV-2 RT PCR NEGATIVE (NEGATIVE)
[2021-10-30 18:25] LABS: Urine Blood Negative (Negative); Urine Glucose Negative (Negative); Urine Protein Negative (Negative)
[2021-10-30 18:43] LABS: Barbiturates NEGATIVE (NEGATIVE); Benzodiazepines NEGATIVE (NEGATIVE); Cocaine NEGATIVE (NEGATIVE); METHAMPHETAM NEGATIVE (NEGATIVE); Methadone NEGATIVE (NEGATIVE); Opiates NEGATIVE (NEGATIVE); Phencyclidine NEGATIVE (NEGATIVE); THC Cannibis NEGATIVE (NEGATIVE)
--- NOTE | 2021-10-30 18:48 | ER ---
Nurse's Notes [facility] Name: Benito Castaneda Age: 89 yrs Sex: Male : 1930 Arrival Date: 10/30/2021 Time: 15:35 Bed 2 Private MD: Diagnosis: Polypharmacy;Altered mental status, unspecified;Dehydration Presentation: 10/30 15:41 Chief complaint: Patient states: nausea and headache EMS states: Toned out by Home vg[facility] health care, stated pt had high BP and was lethargic; pt is AOx4 , BG was 127, BP 140s systolic. Coronavirus screen: Vaccine status: Patient reports receiving the 2nd dose of the covid vaccine. Client denies travel out of the [place] in the last 14 days. Ebola Screen: Patient denies exposure to infectious person. Patient denies travel to an Ebola-affected area in the 21 days before illness onset. The patients blood glucose was checked before arriving to the hospital and was found to be normal. Initial Sepsis Screen: Does the patient meet any 2 criteria? No. Patient's initial sepsis screen is negative. Does the patient have a suspected source of infection? No. Patient's initial sepsis screen is negative. Risk Assessment: Do you want to hurt yourself or someone else? Patient reports no desire to harm self or others. Onset of symptoms was October 30, 2021. 15:41 Method Of Arrival: EMS: [facility] 15:41 Acuity: ANT 3 vg1 15:44 Note Caregiver at bedside stated pt BP at home was 100/50 and then homehealth nurse vg1 rechecked it and BP was 91/62; also stated at about 1445 when pt was drinking coffee was unable to hold cup in right hand and dropped it. 15:44 No acute neurological deficit is noted. 1 Triage Assessment: 15:44 The onset of the patients symptoms was October 30, 2021 at 14:45. General: Appears in no vg1 apparent distress. Behavior is cooperative, drowsy. Pain: Complains of pain in head Pain currently is 4 out of 10 on a pain scale. EENT: No signs and/or symptoms were reported regarding the EENT system. Neuro: Shipman Agitation-Sedation Scale (RASS): -1 Drowsy Level of Consciousness is alert, obeys commands, Oriented to person, place, time, situation, Account Collector are weak on right Weakness in right hand(s) Speech is normal, Facial symmetry appears normal, Reports headache. Cardiovascular: Patient's skin is warm and dry. Respiratory: Airway is patent Respiratory effort is even, unlabored. GI: Abdomen is flat, Reports nausea. : No signs and/or symptoms were reported regarding the genitourinary system. Derm: Skin is intact, Skin is pink, warm \T\ dry. Musculoskeletal: Circulation, motion, and sensation intact. Historical: - Allergies: 15:44 Benadryl; vg1 15:44 Cardura; vg1 15:44 doxazosin; vg1 15:44 Iodine; (fine with benadryl); vg1 15:44 Lipitor; vg1 15:44 SULFUR, ELEMENTAL; vg1 - Home Meds: 15:44 Albuterol Inhl [Active]; Aspirin Oral [Active]; brio ellipta [Active]; Eliquis Oral vg1 [Active]; Famotidine Oral [Active]; Lorazepam Oral [Active]; tamsulosin Oral [Active]; Tramadol Oral [Active]; ergocalciferol (vitamin D2) Oral [Active]; finasteride Oral [Active]; lisinopril Oral [Active]; Melatonin Oral [Active]; Trazodone Oral [Active]; - PMHx: 15:44 aortic valve replacement; cardiac stents; CVA; Diverticulitis; 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 - Social history:: Smoking status: Patient denies any tobacco usage or history of. - Family history:: not pertinent. - Hospitalizations: : Patient was recently seen at. Screenin:29 Abuse screen: Denies threats or abuse. Denies injuries from another. Nutritional ph screening: No deficits noted. Tuberculosis screening: No symptoms or risk factors identified. Fall Risk No fall in past 12 months (0 pts). No secondary diagnosis (0 pts). IV access (20 points). Ambulatory Aid- Crutches/Cane/Walker (15 pts). Gait- Weak (10 pts.). Mental Status- Oriented to own ability (0 pts). Total Brady Fall Scale indicates High Risk Score (45 or more points). Fall prevention measures have been instituted. Side Rails Up X 2 Placed Close to Nursing Station Frequent Obs/Assessments Occuring Family Present and informed to notify staff if the need to leave the bedside As available patient and family educated on Fall Prevention Program and Strategies. Assessment: 15:44 Reassessment: SEE TRIAGE. vg1 15:44 VAN Scoring: Arm Drift: Patients demonstrates NO arm weakness. Patient is VAN Negative. vg1 The patient has not been NPO before screening. The patient is alert, and able to follow commands. The patient does not exhibit slurred or garbled speech. The patient is not exhibiting difficulty speaking. The patient does not exhibit difficulty understanding words. The patient is able to swallow own secretions with no drooling or need for suction. Patient tolerated one teaspoon of water. No drooling, immediate coughing, gurgling, or clearing of the throat was noted. The patient tolerated 90mL of water. No drooling, immediate coughing, gurgling, or clearing of the throat was noted. The patient passed the bedside swallow screening. Oral medications may be given as ordered. Contact Physician for further diet orders. Provider notified of bedside swallow screening results: Andrade Moore MD. T-PA (Activase) Screening:. 16:34 Reassessment: Patient appears in no apparent distress at this time. No changes from vg1 previously documented assessment. Patient is alert, oriented x 3, equal unlabored respirations, skin warm/dry/pink. Pt transported to MRI via stretcher. 16:34 Reassessment: Pt taken to MRI via stretcher. ph 17:24 Reassessment: Back from MRI. vg1 17:45 Reassessment: Patient appears in no apparent distress at this time. Patient is alert, vg1 oriented x 3, equal unlabored respirations, skin warm/dry/pink. Patient denies pain at this time. 18:45 Reassessment: Patient appears in no apparent distress at this time. No changes from vg1 previously documented assessment. Patient is alert, oriented x 3, equal unlabored respirations, skin warm/dry/pink. Patient denies pain at this time. Patient states feeling better. Vital Signs: 15:41 BP 143 / 60; Pulse 64; Resp 16; Temp 97.6; Pulse Ox 100% ; Weight 54.43 kg; Height 5 vg1 ft. 4 in. (162.56 cm); Pain 4/10; 15:41 Body Mass Index 20.60 (54.43 kg, 162.56 cm) vg1 NIH Stroke Scale Scores: 15:44 NIHSS Score: 0 vg1 16:02 NIHSS Score: 0 health services rn Course: 15:35 Patient arrived in ED. rn 15:35 Andrade Moore MD is Attending Physician. rn 15:40 Karin Mcbride, BERYL is Primary Nurse. vg1 15:44 Triage completed. vg1 15:44 Arm band placed on. vg1 16:04 CT Head Brain wo Cont In Process Unspecified. EDMS 16:20 Inserted saline lock: 22 gauge in left hand, using aseptic technique. ,using aseptic vg1 technique. completed by [employer] decorating machine operator. 16:30 Patient has correct armband on for positive identification. Bed in low position. Call ph light in reach. Side rails up X2. Client placed on continuous cardiac and pulse oximetry monitoring. NIBP monitoring applied. Door closed. Noise minimized. Warm blanket given. Pillow given. 16:39 XRAY Chest (1 view) In Process Unspecified. EDMS 16:53 Brain Wo Cont MRI In Process Unspecified. EDMS 18:17 Straight cath inserted, using sterile technique, 16 Fr. Specimen obtained. completed by vg1 [employer] decorating machine operator Returned clear yellow urine. Patient tolerated well. 18:48 Brice Marquez MD is Referral Physician. rn 19:04 No provider procedures requiring assistance completed. IV discontinued, intact, vg1 bleeding controlled, No redness/swelling at site. Pressure dressing applied. Administered Medications: 15:47 CANCELLED (Duplicate Order): NS 0.9% 1000 ml IV at 1000 ml once rn 16:24 Drug: NS 0.9% 500 ml Route: IV; Rate: bolus; Site: left hand; vg1 19:05 Follow up: IV Status: Completed infusion; IV Intake: 500ml vg1 Intake: 18:18 IV: 500ml; Total: 500ml. vg1 19:05 IV: 500ml; Total: 1000ml. vg1 Output: 18:18 Urine: 1000ml (Straight Cath); Total: 1000ml. vg1 Outcome: 18:48 Discharge ordered by MD. metzger 19:[address] to home ambulatory. [facility] 19:04 Condition: good 19:04 Discharge instructions given to patient, family, Instructed on discharge instructions, follow up and referral plans. Demonstrated understanding of instructions, follow-up care. 19:04 [address] the [address] [facility] NIH Stroke Scale - NIH Stroke Score Date: 10/30/2021 Time: 15:44 Total Score = 0 1a. Level of Consciousness (LOC) - 0(Alert) 1b. Level of Consciousness (LOC) (Month \T\ Age) - 0(Both) 1c. LOC Commands (Open \T\ Closes Eyes/Sponge Buffer) - 0(Both) 2. Best Gaze (Lateral Gaze Paresis) - 0(Normal) 3. Visual Field Loss - 0(No visual loss) 4. Facial Palsy - 0(Normal) 5a. Left Arm: Motor (10-second hold) - 0(No drift) 5b. Right Arm: Motor (10-second hold) - 0(No drift) 6a. Left Leg: Motor (5-second hold - always test supine) - 0(No drift) 6b. Right Leg: Motor (5-second hold - always test supine) - 0(No drift) 7. Limb Ataxia (finger/nose \T\ heel/tinoco - test with eyes open) - 0(Absent) 8. Sensory Loss (pinprick arms/legs/face) - 0(Normal) 9. Best Language: Aphasia (description/naming/reading) - 0(No aphasia) 10. Dysarthria (speech clarity - read or repeat words) - 0(Normal) 11. Extinction and Inattention (visual/tactile/auditory/spatial/personal) - 0(No abnormality) Initials: [facility] NIH Stroke Scale - NIH Stroke Score Date: 10/30/2021 Time: 16:02 Total Score = 0 1a. Level of Consciousness (LOC) - 0(Alert) 1b. Level of Consciousness (LOC) (Month \T\ Age) - 0(Both) 1c. LOC Commands (Open \T\ Closes Eyes/Sponge Buffer) - 0(Both) 2. Best Gaze (Lateral Gaze Paresis) - 0(Normal) 3. Visual Field Loss - 0(No visual loss) 4. Facial Palsy - 0(Normal) 5a. Left Arm: Motor (10-second hold) - 0(No drift) 5b. Right Arm: Motor (10-second hold) - 0(No drift) 6a. Left Leg: Motor (5-second hold - always test supine) - 0(No drift) 6b. Right Leg: Motor (5-second hold - always test supine) - 0(No drift) 7. Limb Ataxia (finger/nose \T\ heel/tinoco - test with eyes open) - 0(Absent) 8. Sensory Loss (pinprick arms/legs/face) - 0(Normal) 9. Best Language: Aphasia (description/naming/reading) - 0(No aphasia) 10. Dysarthria (speech clarity - read or repeat words) - 0(Normal) 11. Extinction and Inattention (visual/tactile/auditory/spatial/personal) - 0(No abnormality) Initials: rn Signatures: Dispatcher [employer] EDAndrade Mireles MD MD rn Hall, Patricia, RN RN ph Garcia, Victoria, RN RN vg1 Corrections: (The following items were deleted from the chart) 16:37 16:34 Reassessment: Pt transported to MRI via stretcher vg1 vg1 18:27 17:45 Reassessment: Patient appears in no apparent distress at this time. No vg1 changes from previously documented assessment. Patient is alert, oriented x 3, equal unlabored respirations, skin warm/dry/pink. Patient denies pain at this time. vg1 18:31 15:44 Note Caregiver at bedside stated pt BP at home was 100/50 and then vg1 homehealth nurse rechecked it and BP was 91/62 vg1
--- NOTE | 2021-10-30 18:48 | EDPHYS ---
Physician Documentation [facility] Name: Benito Castaneda Age: 89 yrs Sex: Male : 1930 Arrival Date: 10/30/2021 Time: 15:35 Bed 2 Private MD: ED Physician Andrade Moore HPI: 10/30 16:04 This 89 yrs old Male presents to ER via EMS with complaints of Weakness, rn drowsy, AMS. 16:04 The patient presents with decreased responsiveness. Onset: The symptoms/episode rn began/occurred today. Possible causes: unknown. Associated signs and symptoms: Pertinent positives: headache, lightheadedness, weakness, Pertinent negatives: abdominal pain, chest pain, seizure, shortness of breath. Current symptoms: In the emergency department the patient's symptoms have improved. It is unknown whether or not the patient has had similar symptoms in the past. The patient has been recently seen at the [facility] Emergency Department. Patient reports has been feeling generalized weakness over the last 5 days. [place] weaker earlier now feels better. Reports most of weakness is in his legs. Denies any fever/cough/shortness of breath/chest pain/abdominal pain. Family member reports was with him earlier and he slumped over while drinking coffee and dropped his cup. Exhibited decreased responsiveness and was slouching to the right and EMS was called. EMS states upon arrival patient was alert and no evidence of right-sided weakness on their exam. Patient states feels better and does not know what happened. When asked, patient states feels like his tiredness and weakness is from all of the medications he takes. Seen here 2 weeks ago for altered mental status and drowsiness as well.. Historical: - Allergies: 15:44 Benadryl; vg1 15:44 Cardura; vg1 15:44 doxazosin; vg1 15:44 Iodine; (fine with benadryl); vg1 15:44 Lipitor; vg1 15:44 SULFUR, ELEMENTAL; vg1 - Home Meds: 15:44 Albuterol Inhl [Active]; Aspirin Oral [Active]; brio ellipta [Active]; Eliquis Oral vg1 [Active]; Famotidine Oral [Active]; Lorazepam Oral [Active]; tamsulosin Oral [Active]; Tramadol Oral [Active]; ergocalciferol (vitamin D2) Oral [Active]; finasteride Oral [Active]; lisinopril Oral [Active]; Melatonin Oral [Active]; Trazodone Oral [Active]; - PMHx: 15:44 aortic valve replacement; cardiac stents; CVA; Diverticulitis; 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 - Social history:: Smoking status: Patient denies any tobacco usage or history of. - Family history:: not pertinent. - Hospitalizations: : Patient was recently seen at. ROS: 16:04 Constitutional: Negative for fever, chills, and weight loss, Eyes: Negative for injury, rn pain, redness, and discharge, ENT: Negative for injury, pain, and discharge, Neck: Negative for swelling Cardiovascular: Negative for chest pain, palpitations, and edema, Respiratory: Negative for shortness of breath, cough, wheezing, and pleuritic chest pain, Abdomen/GI: Negative for abdominal pain, nausea, vomiting, diarrhea, and constipation, Back: Negative for injury and pain, : Negative for injury, bleeding, discharge, and swelling, MS/Extremity: Negative for injury and deformity, Skin: Negative for injury, rash, and discoloration, Neuro: Negative for numbness, tingling, and seizure. Exam: 16:04 Constitutional: This is a well developed, well nourished patient who is awake, rn somnolent, but responsive and answers all questions. Head/Face: Normocephalic, atraumatic. Eyes: Periorbital areas with no swelling, redness, or edema. ENT: dry MM Cardiovascular: Regular rate and rhythm. No pulse deficits. Respiratory: No increased work of breathing, no retractions or nasal flaring. Abdomen/GI: Soft, non-tender Skin: Warm, dry MS/ Extremity: Pulses equal, no cyanosis. Neurovascular intact. Full, normal range of motion. Equal circumference. Neuro: Awake and alert, GCS 15, oriented to person, place, time, and situation. Cranial nerves II-XII grossly intact. Motor strength 4/5 in all extremities with equal manager electrical strength and no drift. Sensory grossly intact. Vital Signs: 15:41 BP 143 / 60; Pulse 64; Resp 16; Temp 97.6; Pulse Ox 100% ; Weight 54.43 kg; Height 5 vg1 ft. 4 in. (162.56 cm); Pain 4/10; 15:41 Body Mass Index 20.60 (54.43 kg, 162.56 cm) vg1 NIH Stroke Scale Scores: 15:44 NIHSS Score: 0 vg1 16:02 NIHSS Score: 0 rn MDM: 15:35 Patient medically screened. rn 18:46 Differential Diagnosis: CVA, electrolyte abnormality, intracranial bleed, overdose, rn TIA, UTI, volume depletion, overmedication. Data reviewed: vital signs, nurses notes, lab test result(s), EKG, radiologic studies, CT scan, MRI, plain films, and as a result, I will discharge patient. Counseling: I had a detailed discussion with the patient and/or guardian regarding: the historical points, exam findings, and any diagnostic results supporting the discharge/admit diagnosis, lab results, radiology results, the need for outpatient follow up, to return to the emergency department if symptoms worsen or persist or if there are any questions or concerns that arise at home. Response to treatment: the patient's symptoms have markedly improved after treatment, and as a result, I will discharge patient. Special discussion: I discussed with the patient/guardian in detail that at this point there is no indication for admission to the hospital. It is understood, however, that if the symptoms persist or worsen the patient needs to return immediately for re-evaluation. Based on the history and exam findings, there is no indication for further emergent testing or inpatient evaluation. I discussed with the patient/guardian the need to see the primary care provider for further evaluation of the symptoms. ED course: Patient markedly improved after only IV fluids. CT head negative. MRI negative for acute infarct. Most likely overmedicated. This is second visit in 2 weeks for drowsiness and altered mental status without acute findings. I recommend he follows up with the marionette performer or neurologist for medication reconciliation and had long discussion with patient and family member including family member in [place]. Everybody is comfortable with his improvement and plan and will discharge home with return precautions. Family understands that we will be a slow wean off of medication given he is on multiple sedatives and psychiatric medication.. 10/30 15:45 Order name: CBC with Diff; Complete Time: 16:24 rn 10/30 15:45 Order name: CMP; Complete Time: 17:40 rn 10/30 15:45 Order name: Procalcitonin; Complete Time: 17:40 rn 10/30 15:45 Order name: Blood Culture Adult (2) rn 10/30 15:45 Order name: BNP; Complete Time: 17:40 rn 10/30 15:45 Order name: Urine Culture rn 10/30 15:45 Order name: CT Head Brain wo Cont; Complete Time: 16:24 rn 10/30 15:45 Order name: Urine Microscopic Only rn 10/30 15:45 Order name: COVID-19/FLU A+B (Document "Date of Onset" if Symptomatic); Complete Time: rn 17:40 10/30 15:46 Order name: Urine Drug Screen rn 10/30 15:47 Order name: Brain Wo Cont MRI; Complete Time: 17:40 rn 10/30 15:48 Order name: XRAY Chest (1 view); Complete Time: 17:40 rn 10/30 16:13 Order name: Urine Dipstick-Ancillary; Complete Time: 16:24 EDMS 10/30 18:25 Order name: Urine Dipstick-Ancillary EDUT 10/30 15:45 Order name: Cardiac monitoring; Complete Time: 16:01 rn 10/30 15:45 Order name: IV Start; Complete Time: 16:31 rn 10/30 15:45 Order name: EKG; Complete Time: 15:46 rn 10/30 15:45 Order name: EKG - Nurse/Tech; Complete Time: 16:02 rn 10/30 15:45 Order name: Urine Dipstick-Ancillary (obtain specimen); Complete Time: 18:26 rn Administered Medications: 15:47 CANCELLED (Duplicate Order): NS 0.9% 1000 ml IV at 1000 ml once rn 16:24 Drug: NS 0.9% 500 ml Route: IV; Rate: bolus; Site: left hand; vg1 19:05 Follow up: IV Status: Completed infusion; IV Intake: 500ml vg1 Disposition Summary: 10/30/21 18:48 Discharge Ordered Location: Home rn Problem: an ongoing problem rn Symptoms: have improved rn Condition: Stable rn Diagnosis - Polypharmacy rn - Altered mental status, unspecified rn - Dehydration rn Followup: rn - With: Brice Marquez MD - When: As needed - Reason: Recheck today's complaints, Re-evaluation by your physician Discharge Instructions: - Discharge Summary Sheet rn - Dehydration, Adult rn Forms: - Medication Reconciliation Form rn - Thank You Letter rn - Antibiotic rn shift mgr - Prescription Opioid Use rn NIH Stroke Scale - NIH Stroke Score Date: 10/30/2021 Time: 15:44 Total Score = 0 1a. Level of Consciousness (LOC) - 0(Alert) 1b. Level of Consciousness (LOC) (Month \\T\\ Age) - 0(Both) 1c. LOC Commands (Open \\T\\ Closes Eyes/Warble Saw Operator) - 0(Both) 2. Best Gaze (Lateral Gaze Paresis) - 0(Normal) 3. Visual Field Loss - 0(No visual loss) 4. Facial Palsy - 0(Normal) 5a. Left Arm: Motor (10-second hold) - 0(No drift) 5b. Right Arm: Motor (10-second hold) - 0(No drift) 6a. Left Leg: Motor (5-second hold - always test supine) - 0(No drift) 6b. Right Leg: Motor (5-second hold - always test supine) - 0(No drift) 7. Limb Ataxia (finger/nose \\T\\ heel/tinoco - test with eyes open) - 0(Absent) 8. Sensory Loss (pinprick arms/legs/face) - 0(Normal) 9. Best Language: Aphasia (description/naming/reading) - 0(No aphasia) 10. Dysarthria (speech clarity - read or repeat words) - 0(Normal) 11. Extinction and Inattention (visual/tactile/auditory/spatial/personal) - 0(No abnormality) Initials: vg1 NIH Stroke Scale - NIH Stroke Score Date: 10/30/2021 Time: 16:02 Total Score = 0 1a. Level of Consciousness (LOC) - 0(Alert) 1b. Level of Consciousness (LOC) (Month \\T\\ Age) - 0(Both) 1c. LOC Commands (Open \\T\\ Closes Eyes/Warble Saw Operator) - 0(Both) 2. Best Gaze (Lateral Gaze Paresis) - 0(Normal) 3. Visual Field Loss - 0(No visual loss) 4. Facial Palsy - 0(Normal) 5a. Left Arm: Motor (10-second hold) - 0(No drift) 5b. Right Arm: Motor (10-second hold) - 0(No drift) 6a. Left Leg: Motor (5-second hold - always test supine) - 0(No drift) 6b. Right Leg: Motor (5-second hold - always test supine) - 0(No drift) 7. Limb Ataxia (finger/nose \\T\\ heel/tinoco - test with eyes open) - 0(Absent) 8. Sensory Loss (pinprick arms/legs/face) - 0(Normal) 9. Best Language: Aphasia (description/naming/reading) - 0(No aphasia) 10. Dysarthria (speech clarity - read or repeat words) - 0(Normal) 11. Extinction and Inattention (visual/tactile/auditory/spatial/personal) - 0(No abnormality) Initials: rn Signatures: Dispatcher [employer] Andrade Burleson MD MD rn Garcia, Victoria, RN RN vg1 Corrections: (The following items were deleted from the chart) 15:47 15:46 NS 0.9% 1000 ml IV at 1000 ml once ordered. rn rn
[2021-10-30 18:55] LABS: Urine Bacteria NONE SEEN /HPF (NONE SEEN); Urine RBC <5 /HPF (NONE SEEN)
[2021-10-30 21:20] VITALS: BP 143/60; TEMP 97.6; O2SAT 100
--- NOTE | 2021-10-31 12:54 | EKG ---
Test Date: 2021-10-30 Test Time: 15:42:49 Wink Cutter Operator: HARMAN MEASUREMENT RESULTS: Intervals: Rate: 60 NH: 174 QRSD: 102 QT: 444 QTc: 444 [place]: P: 45 NH: 174 QRS: 9 T: 50 INTERPRETIVE STATEMENTS: Normal sinus rhythm Septal infarct, age undetermined Abnormal ECG Compared to ECG 08/28/2021 16:34:19 Myocardial infarct finding now present Left-axis deviation no longer present Electronically Signed On 10-31-21 12:52:06 CDT by Reji Ramon
== END 2021-10-30 19:04 | disposition home or self-care (01) ==
LOC: ER 15:32
DX: E86.0 Dehydration (principal); I10 Essential (primary) hypertension; Z79.899 Other long term (current) drug therapy; Z79.01 Long term (current) use of anticoagulants; Z79.82 Long term (current) use of aspirin; Z88.8 Allergy status to other drugs, medicaments and biological substances; Z95.1 Presence of aortocoronary bypass graft; Z95.4 Presence of other heart-valve replacement; Z20.822 Contact with and (suspected) exposure to COVID-19
CPT/HCPCS: 93005; 87040 ×2; 87088; 85025; 87086; 36415; 80053; 84145; 83880; 0240U; 80307; 70450; 71045; 70551; J7040; 51702; 81003; 81015; 96360; 96361; 99284

== ENCOUNTER 2021-11-02 11:29 | Observation (INO) | payer OTHER, BC ==
--- OUTSIDE RECORDS SUMMARY | 2021-11-02 11:37 | XMS REPORT | Continuity of Care Document ---
:1930 Author Organization [facility] t Address [address] [place] [address] Care Team Providers Name Role Phone Jaclyn Tate MD Primary Care Physician SITA BECKFORD Attending Clinician Unavailable MD ARIELLA BATISTA Attending Clinician Unavailable Justice Guzman Attending Clinician Unavailable Hugo GARCIA, Trav Lockhart Attending Clinician [phone] Anupam GARCIA, O. Attending Clinician Renee GARCIA [...] Clinician Unavailable Singer AGUIRRE Attending Clinician Amalia PACMay Attending Clinician Ivory Whaley Attending Clinician Ivory CARDONA Attending Clinician Unavailable Олег Parkinson MD Attending Clinician YENY Attending Clinician Unavailable SAINI Attending Clinician Unavailable LYNNE Admitting Clinician Unavailable Nani Pritchard Admitting Clinician Unavailable Physician, Primary or Family Admitting Clinician Unavailvalerio CALIX Admitting Clinician Unavailable 2030_Biopsy Admitting Clinician Unavailable YENY Admitting Clinician Unavailable Payers Payer Name Policy Type Policy Number Effective Date Expiration Date S jeanette BCBS FED SELECT [id number] 2015 00:00:00 MEDICARE PART A [id number] 1996 \T\ B 00:00:00 [employer] [id number] 2015 NPI:[id number] Federal 00:00:00 88 Employees Medicare A & B [id number] 1996 NPI:[id number] 00:00:00 88 Problems Condition Condition Condition Status Onset Resolution Last Treating Co mments Source Name Details Category Date Date Treatment Clinician Date 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 00:00: [facility] ) in ) in 00 l COVID-19 COVID-19 Disease Active Metho di virus virus [facility] st detected detected 00:00: Hospit a 00 [...] disease 00:00: Hospita involving involving 00 l tribal tribal coronary coronary artery artery SOB SOB Disease [...] Added automatic ally from request for surgery [id number] Small Problem Active NPI:140 bowel [id number] obstructio n Nausea Problem Active NPI:299 [id number] Hypomagnes Problem Active NPI:1 40 emia [id number] Leukocytos Problem Active NPI:1 40 is [id number] Hypertensi Problem Active NPI:1 40 on [id number] 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 Abdominal Problem Active NPI:14 0 pain [id number] No known No known Disease NPI:1 83 active active [id number] problems problems Allergies, Adverse Reactions, Alerts Allergy Allergy Status Severity Reaction(s) Onset Inactive Treating Comm ents Source Name Type Date Date Clinician iodine DA Active U UNKNOWN [facility] 09-05 Clear 00:00: Mir 00 [facility] diphenhy DA Active U UNKNOWN [facility] dramine 09-05 Clear 00:00: Mir 00 [facility] atorvast DA Active U [facility]KNOWN [facility] atin 09-05 Clear 00:00: Mir 00 [facility] Diphenhy Propensi Active Itching Pt states Me [...] Other (See Unknown M [facility] to Comments) 11-30 reaction, st adverse 00:00: patient Hospita reaction 00 daughter l s to confirmed drug allergy with patients cardiolog ist. Iodine Allergy Active NPI:140 to 3-19 [id number] substanc 00:00: e 00 Doxazosi Allergy Active 2018-06 NPI:140 n to 2-17 [id number] substanc 00:00: e 00 CARDURA DA Active U FAINTING; [facility] LOW B/P - Clear 00:00: Mir [facility] No Known DA Active U [facility] Contrast 12-09 Clear Allergie 00:00: Mir s [facility] No Known DA Active U [facility] Food 12-09 Clear Allergie 00:00: Mir s [facility] No Known DA Active U [facility] Other 12-09 Clear Allergie 00:00: Mir s [facility] NO KNOWN Drug Active NPI:183 ALLERGIE Class [id number] S doxazosi DA Active NPI:140 n [id number] iodine DA Active NPI:311 [id number] Family History Family Member Diagnosis Comments Start Date Stop Date Source Natural brother [facility] Natural father Heart disease [facility] mother [facility] Natural sister [facility] Social History Social Habit Start Date Stop Date Quantity Comments Source Exposure to Not sure NPI:[id number] 1 SARS-CoV-2 (event) History of tobacco Smoker [facility] History SDOH [facility] Frequency [facility]ita l History SDOH [facility] Std Drinks Hospit al History SDOH [facility] Alcohol intake 2021-01-10 2021-01-10 Current NPI:[id number] 00:00:00 00:00:00 non-drinker of alcohol (finding) Tobacco use and 2021-01-10 2021-01-10 Never used NPI:[id number] [id number] exposure 00:00:00 00:00:00 Alcohol Comment 2017-12-10 2017-12-10 [facility] 00[facility]00 Hospital Cigarettes smoked 2017-08-07 2017-08-[address] current (pack per 00:00:00 00:00:00 Hospita l day) - Reported Cigarette 2017-08-07 2017-08-07 [facility] pack-years 00:00:00 00:00:00 Hospital Sex Assigned At [birth year] NPI:[id number] 00:00:00 00:00:00 Smoking Status Start Date Stop Date Source Never smoker Ex-smoker 2017-08-07 00:00:00 2017-08-07 00:00:00 [facility] Medications Ordered Filled Start Stop Current Ordering Indication Dosage Frequency Signature Comments Components Source Medication Medication Date Date Medication? Clinician (SIG) Name Name altonia 2021- No 82979P Q7D Take 1 M ethodi rol 07-16 [...] l mouth daily for 30 days. zinc 2021-2021- No 1{capsu QD Take 1 [facility] sulfate [...] 23 l coated tablet albuterol 0 2021- No 2{puff} Q.25D Inhale 2 Method[facility] [...] mouth l daily for 30 days. carvediloL 2020-06- No 25mg Q.5D Take 25 mg [facility] [...] to 30 days. isosorbide 2020-06 No 20mg Q.[id number] Take 1 [facility] dinitrate 0-25 11-25 [id number] tablet (20 st (ISORDIL) 00:00: 05:59 3D [...] up to 3 days. ergocalcife 2020- No [id number] Q7D Take 1 M ethodi rol 02-27 [...] 500mg QD Take 2 Me thodi n 8-27 09-[address] (Zithromax) 00:00: 04:59 (500 [...] day. pantoprazol 2020- No 40mg 40 mg, NPI :183 e 7-20 07-20 Oral, ONCE [id number] (PROTONIX) 08:30: 07:18 NOW, 1 EC tablet 00 :00 dose, Tue 40 mg 01/16/21 at 0330, ISHA maalox:diph 2020- No 15mL 15 mL, NPI :183 enhydrAMINE - 07-20 Oral, [id number] 1 :lidocaine2 08:15: 07:12 ONCE, 1 %viscous 00 :00 dose, Tue 1:1:1: 01/16/21 at suspension 0315, (COMPOUNDED Routine ) cloNIDine 2020- No .1mg 0.1 mg, NPI: 183 (CATAPRES) 7-20 07-20 Oral, [id number] tablet 0.1 07:15: 06:15 ONCE, 1 mg 00 :00 dose, 01/16/21 at 0215, STAT cloNIDine 2020- No .1mg 0.1 mg, NPI: 183 (CATAPRES) - 07-20 Oral, [id number] tablet 0.1 05:45: 04:45 ONCE, 1 mg 00 :00 dose, Rod 01/16/21 at 0045, STAT amLODIPine 2020-0 Yes 10mg Take 10 mg N PI:183 10 mg 7-02 by mouth [id number] tablet 18:08: daily. 23 aspirin 325 2020-0 Yes 325mg Take 325 N PI:183 mg tablet 7-02 mg by [id number] 18:08: mouth 23 daily. valsartan-h 2020-0 Yes 1{tbl} Take 1 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 I:183 ydrochlorot 7-02 tablet by 131 8781 hiazide 18:08: mouth 160-12.5 mg 23 daily. per tablet eszopiclone 2020-0 Yes 3mg Take 3 mg N PI:183 3 mg tablet 7-02 by mouth 1318 781 18:08: at 23 bedtime. cloNIDine 2020-0 Yes .1mg Take 0.1 NPI: 183 0.1 mg 7-02 mg by [id number] tablet 18:08: mouth 3 23 (three) times daily. apixaban 2020-0 Yes 2.5mg Take 2.5 NPI: 183 (ELIQUIS) 7-02 mg by [id number] 2.5 mg 18:08: mouth 2 tablet 23 (two) times daily. omeprazole 2020-0 Yes 40mg Take 40 mg N PI:183 40 mg 7-02 by mouth [id number] capsule 18:08: daily. 23 lisinopriL 2020-0 Yes 5mg Take 5 mg 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 I:183 5 mg tablet 7-02 by mouth 1318 781 18:08: daily. 23 finasteride 2020-0 Yes 5mg Take 5 mg N PI:183 5 mg tablet 7-02 by mouth 1318 781 18:08: daily. 23 amLODIPine 2020-0 Yes 10mg Take 10 mg N PI:183 10 mg 7-02 by mouth [id number] tablet 18:08: daily. 23 aspirin 325 2020-0 Yes 325mg Take 325 N PI:183 mg tablet 7-02 mg by [id number] 18:08: mouth 23 daily. valsartan-h 2020-0 Yes 1{tbl} Take 1 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 I:183 ydrochlorot 7-02 tablet by 131 8781 hiazide 18:08: mouth 160-12.5 mg 23 daily. per tablet eszopiclone 2020-0 Yes 3mg Take 3 mg N PI:183 3 mg tablet 7-02 by mouth 1318 781 18:08: at 23 bedtime. cloNIDine 2020-0 Yes .1mg Take 0.1 NPI: 183 0.1 mg 7-02 mg by [id number] tablet 18:08: mouth 3 23 (three) times daily. apixaban 202-0 Yes 2.5mg Take 2.5 NPI: 183 (ELIQUIS) 7-02 mg by [id number] 2.5 mg 18:08: mouth 2 tablet 23 (two) times daily. omeprazole 2020-0 Yes 40mg Take 40 mg N PI:183 40 mg 7-02 by mouth [id number] capsule 18:08: daily. 23 lisinopriL 2020-0 Yes 5mg Take 5 mg 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 I:183 5 mg tablet 7-02 by mouth 1318 781 18:08: daily. 23 finasteride 2020-0 Yes 5mg Take 5 mg N PI:183 5 mg tablet 7-02 by mouth 1318 781 18:08: daily. 23 amLODIPine 2020-0 Yes 10mg Take 10 mg N PI:183 10 mg 7-02 by mouth [id number] tablet 18:08: daily. 23 aspirin 325 2020-0 Yes 325mg Take 325 N PI:183 mg tablet 7-02 mg by [id number] 18:08: mouth 23 daily. valsartan-h 2020-0 Yes 1{tbl} Take 1 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 I:183 ydrochlorot 7-02 tablet by 131 8781 hiazide 18:08: mouth 160-12.5 mg 23 daily. per tablet eszopiclone 2020-0 Yes 3mg Take 3 mg N PI:183 3 mg tablet 7-02 by mouth 1318 781 18:08: at 23 bedtime. cloNIDine 2020-0 Yes .1mg Take 0.1 NPI: 183 0.1 mg 7-02 mg by [id number] tablet 18:08: mouth 3 23 (three) times daily. apixaban 2020-0 Yes 2.5mg Take 2.5 NPI: 183 (ELIQUIS) 7-02 mg by [id number] 2.5 mg 18:08: mouth 2 tablet 23 (two) times daily. omeprazole 2020-0 Yes 40mg Take 40 mg N PI:183 40 mg 7-02 by mouth [id number] capsule 18:08: daily. 23 lisinopriL 2020-0 Yes 5mg Take 5 mg 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 I:183 5 mg tablet 7-02 by mouth 1318 781 18:08: daily. 23 finasteride 202-0 Yes 5mg Take 5 mg N PI:183 5 mg tablet 7-02 by mouth 1318 781 18:08: daily. 23 amLODIPine 2020-0 Yes 10mg Take 10 mg N PI:183 10 mg 7-02 by mouth [id number] tablet 18:08: daily. 23 aspirin 325 202-0 Yes 325mg Take 325 N PI:183 mg tablet 7-02 mg by [id number] 18:08: mouth 23 daily. valsartan-h 2020-0 Yes 1{tbl} Take 1 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 I:183 ydrochlorot 7-02 tablet by 131 8781 hiazide 18:08: mouth 160-12.5 mg 23 daily. per tablet eszopiclone 2020-0 Yes 3mg Take 3 mg N PI:183 3 mg tablet 7-02 by mouth 1318 781 18:08: at 23 bedtime. cloNIDine 2020-0 Yes .1mg Take 0.1 NPI: 183 0.1 mg 7-02 mg by [id number] tablet 18:08: mouth 3 23 (three) times daily. apixaban 2020-0 Yes 2.5mg Take 2.5 NPI: 183 (ELIQUIS) 7-02 mg by [id number] 2.5 mg 18:08: mouth 2 tablet 23 (two) times daily. omeprazole 2020-0 Yes 40mg Take 40 mg N PI:183 40 mg 7-02 by mouth [id number] capsule 18:08: daily. 23 lisinopriL 202-0 Yes 5mg Take 5 mg 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 I:183 5 mg tablet 7-02 by mouth 1318 781 18:08: daily. 23 finasteride 202-0 Yes 5mg Take 5 mg N PI:183 5 mg tablet 7-02 by mouth 1318 781 18:08: daily. 23 amLODIPine 2020-0 Yes 10mg Take 10 mg N PI:183 10 mg 7-02 by mouth [id number] tablet 18:08: daily. 23 aspirin 325 2020-0 Yes 325mg Take 325 N PI:183 mg tablet 7-02 mg by [id number] 18:08: mouth 23 daily. valsartan-h 2020-0 Yes 1{tbl} Take 1 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 I:183 ydrochlorot 7-02 tablet by 131 8781 hiazide 18:08: mouth 160-12.5 mg 23 daily. per tablet eszopiclone 2020-0 Yes 3mg Take 3 mg N PI:183 3 mg tablet 7-02 by mouth 1318 781 18:08: at 23 bedtime. cloNIDine 2020-0 Yes .1mg Take 0.1 NPI: 183 0.1 mg 7-02 mg by [id number] tablet 18:08: mouth 3 23 (three) times daily. apixaban 2020-0 Yes 2.5mg Take 2.5 NPI: 183 (ELIQUIS) 7-02 mg by [id number] 2.5 mg 18:08: mouth 2 tablet 23 (two) times daily. omeprazole 2020-0 Yes 40mg Take 40 mg N PI:183 40 mg 7-02 by mouth [id number] capsule 18:08: daily. 23 lisinopriL 2020-0 Yes 5mg Take 5 mg 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 I:183 5 mg tablet 7-02 by mouth 1318 781 18:08: daily. 23 finasteride 2020-0 Yes 5mg Take 5 mg N PI:183 5 mg tablet 7-02 by mouth 1318 781 18:08: daily. 23 amLODIPine 2020-0 Yes 10mg Take 10 mg N PI:183 10 mg 7-02 by mouth [id number] tablet 18:08: daily. 23 aspirin 325 2020-0 Yes 325mg Take 325 N PI:183 mg tablet 7-02 mg by [id number] 18:08: mouth 23 daily. valsartan-h 2020-0 Yes 1{tbl} Take 1 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 I:183 ydrochlorot 7-02 tablet by 131 8781 hiazide 18:08: mouth 160-12.5 mg 23 daily. per tablet eszopiclone 2020-0 Yes 3mg Take 3 mg N PI:183 3 mg tablet 7-02 by mouth 1318 781 18:08: at 23 bedtime. cloNIDine 2020-0 Yes .1mg Take 0.1 NPI: 183 0.1 mg 7-02 mg by [id number] tablet 18:08: mouth 3 23 (three) times daily. apixaban 2020-0 Yes 2.5mg Take 2.5 NPI: 183 (ELIQUIS) 7-02 mg by [id number] 2.5 mg 18:08: mouth 2 tablet 23 (two) times daily. omeprazole 2020-0 Yes 40mg Take 40 mg N PI:183 40 mg 7-02 by mouth [id number] capsule 18:08: daily. 23 lisinopriL 2020-0 Yes 5mg Take 5 mg 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 I:183 5 mg tablet 7-02 by mouth 1318 781 18:08: daily. 23 finasteride 2020-0 Yes 5mg Take 5 mg N PI:183 5 mg tablet 7-02 by mouth 1318 781 18:08: daily. 23 amLODIPine 2020-0 Yes 10mg Take 10 mg N PI:183 10 mg 7-02 by mouth [id number] tablet 18:08: daily. 23 aspirin 325 2020-0 Yes 325mg Take 325 N PI:183 mg tablet 7-02 mg by [id number] 18:08: mouth 23 daily. valsartan-h 2020-0 Yes 1{tbl} Take 1 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 I:183 ydrochlorot 7-02 tablet by 131 8781 hiazide 18:08: mouth 160-12.5 mg 23 daily. per tablet eszopiclone 2020-0 Yes 3mg Take 3 mg N PI:183 3 mg tablet 7-02 by mouth 1318 781 18:08: at 23 bedtime. cloNIDine 2020-0 Yes .1mg Take 0.1 NPI: 183 0.1 mg 7-02 mg by [id number] tablet 18:08: mouth 3 23 (three) times daily. apixaban 2020-0 Yes 2.5mg Take 2.5 NPI: 183 (ELIQUIS) 7-02 mg by [id number] 2.5 mg 18:08: mouth 2 tablet 23 (two) times daily. omeprazole 2020-0 Yes 40mg Take 40 mg N PI:183 40 mg 7-02 by mouth [id number] capsule 18:08: daily. 23 lisinopriL 2020-0 Yes 5mg Take 5 mg 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 I:183 5 mg tablet 7-02 by mouth 1318 781 18:08: daily. 23 finasteride 0 Yes 5mg Take 5 mg N PI:183 5 mg tablet 7-02 by mouth 1318 781 18:08: daily. 23 amLODIPine 0 Yes 10mg Take 10 mg N PI:183 10 mg 7-02 by mouth [id number] tablet 18:08: daily. 23 aspirin 325 2020-0 Yes 325mg Take 325 N PI:183 mg tablet 7-02 mg by [id number] 18:08: mouth 23 daily. valsartan-h 0 Yes 1{tbl} Take 1 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 I:183 ydrochlorot 7-02 tablet by 131 8781 hiazide 18:08: mouth 160-12.5 mg 23 daily. per tablet eszopiclone 0 Yes 3mg Take 3 mg N PI:183 3 mg tablet 7-02 by mouth 1318 781 18:08: at 23 bedtime. cloNIDine 2020-0 Yes .1mg Take 0.1 NPI: 183 0.1 mg 7-02 mg by [id number] tablet 18:08: mouth 3 23 (three) times daily. apixaban Yes 2.5mg Take 2.5 NPI: 183 (ELIQUIS) 7-02 mg by [id number] 2.5 mg 18:08: mouth 2 tablet 23 (two) times daily. omeprazole Yes 40mg Take 40 mg N PI:183 40 mg 7-02 by mouth [id number] capsule 18:08: daily. 23 lisinopriL 0 Yes 5mg Take 5 mg 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 I:183 5 mg tablet 7-02 by mouth 1318 781 18:08: daily. 23 finasteride 0 Yes 5mg Take 5 mg N PI:183 5 mg tablet 7-02 by mouth 1318 781 18:08: daily. 23 Dutasteride 2020-0 Yes Take by 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 I:183 -Tamsulosin 7-02 mouth. [id number] 1 0.5-0.4 mg 18:08: CM24 22 Dutasteride 2020-0 Yes Take by 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 I:183 -Tamsulosin 7-02 mouth. 411645 1 0.5-0.4 mg 18:08: CM24 22 Dutasteride 2021-0 Yes Take by 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 I:183 -Tamsulosin 7-02 mouth. 282976 1 0.5-0.4 mg 18:08: CM24 22 Dutasteride Yes Take by 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 I:183 -Tamsulosin 7-02 mouth. [id number] 1 0.5-0.4 mg 18:08: CM24 22 Dutasteride Yes Take by 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 I:183 -Tamsulosin 7- mouth. 252634 1 0.5-0.4 mg 18:08: CM24 22 Dutasteride Yes Take by 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 I:183 -Tamsulosin 7- mouth. [id number] 1 0.5-0.4 mg 18:08: CM24 Dutasteride Yes Take by 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 I:183 -Tamsulosin 7- mouth. 946206 1 0.5-0.4 mg 18:08: CM24 Dutasteride Yes Take by 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 I:183 -Tamsulosin 7- mouth. [id number] 1 0.5-0.4 mg 18:08: CM24 tamsulosin 2020- No .4mg QD Take 0.4 Me thodi (FLOMAX) 12-04-[address] 0.4 mg 15:23: 00:00 mouth [facility] capsule 43 :00 daily. l tamsulosin 2020- No .4mg Q.5D Take 1 Meth marcella (FLOMAX) 12-04- capsule st 0.4 mg 00:00: 04:59 (0.4 mg Hospita capsule 00 :00 total) by l mouth 2 (two) times a day for 30 days. levoFLOXaci 2020- No 500mg QD Take 1 Me thodi n 12-04-[address] (Levaquin) 00:00: 04:59 (500 mg Hos peter 500 MG 00 :00 total) by l tablet mouth daily for 4 days. traMADoL 2020- No 41652 50mg Q6H Take 50 mg M ethodi (ULTRAM) 50 11-30-[address] mg tablet 20:42: 00:00 [...] l amLODIPine Yes 10mg Take 10 mg N PI:183 10 mg 7-19 by mouth [id number] tablet 18:24: daily. 36 aspirin 325 Yes 325mg Take 325 N PI:183 mg tablet 7-19 mg by [id number] 18:24: mouth 36 daily. valsartan-h Yes 1{tbl} Take 1 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 I:183 ydrochlorot 7-19 tablet by 131 8781 hiazide 18:24: mouth 160-12.5 mg 36 daily. per tablet eszopiclone Yes 3mg Take 3 mg N PI:183 3 mg tablet 7-19 by mouth 1318 781 18:24: at 36 bedtime. amLODIPine Yes 10mg Take 10 mg N PI:183 10 mg 7-19 by mouth [id number] tablet 18:24: daily. 36 aspirin 325 Yes 325mg Take 325 N PI:183 mg tablet 7-19 mg by [id number] 18:24: mouth 36 daily. valsartan-h Yes 1{tbl} Take 1 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 I:183 ydrochlorot 7-19 tablet by 131 8781 hiazide 18:24: mouth 160-12.5 mg 36 daily. per tablet eszopiclone 2017-0 Yes 3mg Take 3 mg N PI:183 3 mg tablet 7-19 by mouth 1318 781 18:24: at 36 bedtime. Amlodipine Amlodipine Yes 5 Daily 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 I:140 Besylate Besylate [id number] Aspirin Aspirin Yes Daily NPI:140 (Aspir 81) (Aspir 81) 799 0088 81 Mg 81 Mg TABLET.DR SHIPLEY. Hydrochloro Hydrochloro Yes 12.5 Daily NPI:140 thiazide thiazide 0608244 (Hydrochlor (Hydrochlor othiazide*) othiazide*) 25 Mg 25 Mg TABLET TABLET Tamsulosin Tamsulosin Yes .4 Daily 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 I:140 Hcl Hcl 6241686 (Flomax*) (Flomax*) 0.4 Mg CAP 0.4 Mg CAP Immunizations Ordered Immunization Filled Immunization Date Status Commen ts Source Name Name FLUZONE HIGH-DOSE PF 2021-04-23 Completed Meth odist 00:00:00 Hospital Vital Signs Vital Name Observation Time Observation Value Comments Source Systolic blood 2021-01-16 07:00:00 187 mm[Hg] NPI:18 [id number] pressure Diastolic blood 2021-01-16 07:00:00 90 mm[Hg] NPI:1 [id number] pressure Heart rate 2021-01-16 07:00:00 76 /min NPI:1831 779052 Respiratory rate 2021-01-16 07:00:00 20 /min Oxygen saturation in 2021-01-16 07:00:00 97 /min Arterial blood by Pulse oximetry Body temperature 2021-01-16 04:24:00 37.06 Ayana Body weight 2021-01-16 04:24:00 58.968 kg NPI:1831 855599 BMI 2021-01-16 04:24:00 22.31 kg/m2 NPI:1831 [id number] Systolic blood 2021-01-11 02:55:00 175 mm[Hg] NPI:18 [id number] pressure Diastolic blood 2021-01-11 02:55:00 85 mm[Hg] NPI:1 [id number] pressure Heart rate 2021-01-11 02:55:00 73 /min NPI:1831 660917 Respiratory rate 2021-01-11 02:55:00 16 /min Oxygen saturation in 2021-01-11 02:55:00 96 /min Arterial blood by Pulse oximetry Body temperature 2021-01-10 23:48:00 37.22 Ayana Body weight 2021-01-10 23:48:00 58.968 kg NPI:1831 589417 BMI 2021-01-10 23:48:00 22.31 kg/m2 NPI:1831 144983 Systolic blood 2020-12-29 18:08:00 132 mm[Hg] NPI:18 [id number] pressure Diastolic blood 2020-12-29 18:08:00 65 mm[Hg] NPI:1 [id number] pressure Heart rate 2020-12-29 18:03:00 65 /min NPI:1831 780086 Body temperature 2020-12-29 18:03:00 36.44 Ayana Respiratory rate 2020-12-29 18:03:00 16 /min Body height 2020-12-29 18:03:00 162.6 cm NPI:1831 852155 Body weight 2020-12-29 18:03:00 59.013 kg NPI:1831 918302 BMI 2020-12-29 18:03:00 22.33 kg/m2 NPI:1831 480146 Oxygen saturation in 2020-12-29 18:03:00 98 /min Arterial blood by Pulse oximetry Systolic blood 2020-12-29 18:08:00 132 mm[Hg] NPI:18 [id number] pressure Diastolic blood 2020-12-29 18:08:00 65 mm[Hg] NPI:1 [id number] pressure Heart rate 2020-12-29 18:03:00 65 /min NPI:1831 617263 Body temperature 2020-12-29 18:03:00 36.44 Ayana Respiratory rate 2020-12-29 18:03:00 16 /min Body height 2020-12-29 18:03:00 162.6 cm NPI:1831 454013 Body weight 2020-12-29 18:03:00 59.013 kg NPI:1831 187066 BMI 2020-12-29 18:03:00 22.33 kg/m2 NPI:1831 471664 Oxygen saturation in 2020-12-29 18:03:00 98 /min Arterial blood by Pulse oximetry Oxygen saturation in 2021-07-13 18:02:00 94 /min [facility] Arterial blood by Pulse oximetry Heart rate 2021-07-13 17:59:00 74 /min [facility] Respiratory rate 2021-07-13 17:59:00 14 /min [facility] Systolic blood 2021-07-13 17:02:14 121 mm[Hg] [facility] pressure Diastolic blood 2021-07-13 17:02:14 63 mm[Hg] [facility] pressure Body temperature 2021-07-13 17:02:14 36.11 Ayana [facility] Body height 2021-07-08 22:41:00 162.6 cm [facility] Body weight 2021-07-08 22:41:00 58.968 kg [facility] BMI 2021-07-08 22:41:00 22.31 kg/m2 [facility] BP Diastolic 2020-09-28 12:46:00 76 mm[Hg] NPI:1407 902689 BP Systolic 2020-09-28 12:46:00 149 mm[Hg] NPI:1407 787616 Oxygen saturation by 2020-09-28 12:46:00 99 /min Pulse oximetry Heart Rate 2020-09-28 12:46:00 85 /min NPI:1407 248010 Respiratory rate 2020-09-28 12:46:00 22 /min Body Temperature 2020-09-28 12:46:00 97.7 [degF] Heart Rate 2020-09-28 08:42:00 81 /min NPI:1407 555673 Respiratory rate 2020-09-28 08:42:00 24 /min Body Temperature 2020-09-28 08:42:00 97.4 [degF] BP Diastolic 2020-09-28 08:42:00 60 mm[Hg] NPI:1407 617842 BP Systolic 2020-09-28 08:42:00 141 mm[Hg] NPI:1407 948332 Oxygen saturation by 2020-09-28 08:42:00 96 /min Pulse oximetry BP Diastolic 2020-09-28 08:36:00 60 mm[Hg] NPI:1407 859862 BP Systolic 2020-09-28 08:36:00 141 mm[Hg] NPI:1407 295989 Oxygen saturation by 2020-09-28 08:36:00 96 /min Pulse oximetry Heart Rate 2020-09-28 08:36:00 81 /min NPI:1407 779897 Respiratory rate 2020-09-28 08:36:00 24 /min Body Temperature 2020-09-28 08:36:00 97.4 [degF] Oxygen saturation by 2020-09-28 08:17:00 96 /min Pulse oximetry Heart Rate 2020-09-28 08:17:00 80 /min NPI:1407 965565 Respiratory rate 2020-09-28 08:17:00 20 /min Oxygen saturation by 2020-09-28 07:49:00 96 /min Pulse oximetry Heart Rate 2020-09-28 07:49:00 80 /min NPI:1407 092607 Respiratory rate 2020-09-28 07:49:00 20 /min BP Diastolic 2020-09-28 04:00:00 41 mm[Hg] NPI:1407 882038 BP Systolic 2020-09-28 04:00:00 107 mm[Hg] NPI:1407 295107 Oxygen saturation by 2020-09-28 04:00:00 96 /min Pulse oximetry Heart Rate 2020-09-28 04:00:00 85 /min NPI:1407 156104 Respiratory rate 2020-09-28 04:00:00 20 /min Body Temperature 2020-09-28 04:00:00 97.7 [degF] Oxygen saturation by 2020-09-28 02:48:00 98 /min Pulse oximetry Heart Rate 2020-09-28 02:48:00 85 /min NPI:1407 048144 Respiratory rate 2020-09-28 02:48:00 18 /min Oxygen saturation by 2020-09-28 02:40:00 95 /min Pulse oximetry Heart Rate 2020-09-28 02:40:00 87 /min NPI:1407 816494 Respiratory rate 2020-09-28 02:40:00 20 /min BP Diastolic 2020-09-28 00:00:00 59 mm[Hg] NPI:1407 921328 BP Systolic 2020-09-28 00:00:00 135 mm[Hg] NPI:1407 026761 Oxygen saturation by 2020-09-28 00:00:00 94 /min Pulse oximetry Heart Rate 2020-09-28 00:00:00 92 /min NPI:1407 261535 Respiratory rate 2020-09-28 00:00:00 20 /min Body Temperature 2020-09-28 00:00:00 97.8 [degF] BP Diastolic 2020-09-27 20:00:00 66 mm[Hg] NPI:1407 447138 BP Systolic 2020-09-27 20:00:00 156 mm[Hg] NPI:1407 991235 Oxygen saturation by 2020-09-27 20:00:00 99 /min Pulse oximetry Heart Rate 2020-09-27 20:00:00 99 /min NPI:1407 565132 Respiratory rate 2020-09-27 20:00:00 18 /min Body Temperature 2020-09-27 20:00:00 98.1 [degF] Oxygen saturation by 2020-09-27 19:53:00 100 /min Pulse oximetry Heart Rate 2020-09-27 19:53:00 96 /min NPI:1407 928671 Respiratory rate 2020-09-27 19:53:00 18 /min Oxygen saturation by 2020-09-27 19:45:00 97 /min Pulse oximetry Heart Rate 2020-09-27 19:45:00 99 /min [id number] Respiratory rate 2020-09-27 19:45:00 20 /min BP Diastolic 2020-09-27 15:21:00 66 mm[Hg] NPI:[id number] BP Systolic 2020-09-27 15:21:00 159 mm[Hg] [id number] Oxygen saturation by 2020-09-27 15:21:00 95 /min Pulse oximetry Heart Rate 2020-09-27 15:21:00 103 /min [id number] Respiratory rate 2020-09-27 15:21:00 20 /min Body Temperature 2020-09-27 15:21:00 98.5 [degF] Oxygen saturation by 2020-09-27 14:45:00 99 /min Pulse oximetry Heart Rate 2020-09-27 14:45:00 103 /min [id number] Respiratory rate 2020-09-27 14:45:00 20 /min Oxygen saturation by 2020-09-27 14:30:00 95 /min Pulse oximetry Heart Rate 2020-09-27 14:30:00 103 /min NPI:[id number] Respiratory rate 2020-09-27 14:30:00 20 /min BP Diastolic 2020-09-27 11:13:00 56 mm[Hg] NPI:[id number] BP Systolic 2020-09-27 11:13:00 123 mm[Hg] [id number]:[id number] Oxygen saturation by 2020-09-27 11:13:00 99 /min Pulse oximetry Heart Rate 2020-09-27 11:13:00 88 /min NPI:[id number] Respiratory rate 2020-09-27 11:13:00 16 /min Body Temperature 2020-09-27 11:13:00 98.4 [degF] BP Diastolic 2020-09-27 08:15:00 51 mm[Hg] NPI:1407 [id number] BP Systolic 2020-09-27 08:15:00 116 mm[Hg] NPI:1407 [id number] Oxygen saturation by 2020-09-27 08:15:00 95 /min Pulse oximetry Heart Rate 2020-09-27 08:15:00 105 /min NPI:1407 [id number] Respiratory rate 2020-09-27 08:15:00 16 /min Body Temperature 2020-09-27 08:15:00 97.6 [degF] BP Diastolic 2020-09-27 07:58:00 51 mm[Hg] NPI:1407 [id number] BP Systolic 2020-09-27 07:58:00 116 mm[Hg] NPI:1407 [id number] Oxygen saturation by 2020-09-27 07:58:00 95 /min Pulse oximetry Heart Rate 2020-09-27 07:58:00 105 /min NPI:1407 [id number] Respiratory rate 2020-09-27 07:58:00 16 /min Body Temperature 2020-09-27 07:58:00 97.6 [degF] Oxygen saturation by 2020-09-27 07:15:00 99 /min Pulse oximetry Heart Rate 2020-09-27 07:15:00 105 /min NPI:1407 [id number] Respiratory rate 2020-09-27 07:15:00 16 /min Oxygen saturation by 2020-09-27 07:00:00 95 /min Pulse oximetry Heart Rate 2020-09-27 07:00:00 105 /min NPI:1407 [id number] Respiratory rate 2020-09-27 07:00:00 16 /min Oxygen saturation by 2020-09-27 00:05:00 100 /min Pulse oximetry Heart Rate 2020-09-27 00:05:00 91 /min NPI:1407 [id number] Respiratory rate 2020-09-27 00:05:00 20 /min Oxygen saturation by 2020-09-26 23:50:00 98 /min Pulse oximetry Heart Rate 2020-09-26 23:50:00 89 /min NPI:1407 [id number] Respiratory rate 2020-09-26 23:50:00 20 /min BP Diastolic 2020-09-26 20:36:00 69 mm[Hg] NPI:1407 [id number] BP Systolic 2020-09-26 20:36:00 114 mm[Hg] NPI:1407 [id number] Oxygen saturation by 2020-09-26 20:36:00 98 /min Pulse oximetry Heart Rate 2020-09-26 20:36:00 84 /min NPI:1407 [id number] Respiratory rate 2020-09-26 20:36:00 18 /min Body Temperature 2020-09-26 20:36:00 98.1 [degF] BP Diastolic 2020-09-26 20:00:00 80 mm[Hg] NPI:1407 147936 BP Systolic 2020-09-26 20:00:00 142 mm[Hg] NPI:1407 [id number] Oxygen saturation by 2020-09-26 20:00:00 100 /min Pulse oximetry Heart Rate 2020-09-26 20:00:00 89 /min NPI:1407 [id number] Respiratory rate 2020-09-26 20:00:00 21 /min Body Temperature 2020-09-26 20:00:00 98.3 [degF] BP Diastolic 2020-09-26 16:11:00 75 mm[Hg] NPI:1407 [id number] BP Systolic 2020-09-26 16:11:00 151 mm[Hg] NPI:1407 [id number] Oxygen saturation by 2020-09-26 16:11:00 100 /min Pulse oximetry Heart Rate 2020-09-26 16:11:00 89 /min NPI:1407 [id number] Respiratory rate 2020-09-26 16:11:00 21 /min Body Temperature 2020-09-26 16:11:00 98.3 [degF] Oxygen saturation by 2020-09-26 13:10:00 96 /min Pulse oximetry Heart Rate 2020-09-26 13:10:00 94 /min NPI:1407 [id number] Respiratory rate 2020-09-26 13:10:00 16 /min Oxygen saturation by 2020-09-26 12:55:00 96 /min Pulse oximetry Heart Rate 2020-09-26 12:55:00 94 /min NPI:1407 [id number] Respiratory rate 2020-09-26 12:55:00 16 /min Oxygen saturation by 2020-09-26 12:35:00 96 /min Pulse oximetry Heart Rate 2020-09-26 12:35:00 94 /min NPI:1407 [id number] Respiratory rate 2020-09-26 12:35:00 16 /min BP Diastolic 2020-09-26 12:12:00 66 mm[Hg] NPI:1407 [id number] BP Systolic 2020-09-26 12:12:00 113 mm[Hg] NPI:1407 [id number] Oxygen saturation by 2020-09-26 12:12:00 98 /min Pulse oximetry Heart Rate 2020-09-26 12:12:00 100 /min NPI:1407 [id number] Respiratory rate 2020-09-26 12:12:00 26 /min Body Temperature 2020-09-26 12:12:00 98.0 [degF] BP Diastolic 2020-09-26 09:22:00 59 mm[Hg] NPI:1407 048007 BP Systolic 2020-09-26 09:22:00 113 mm[Hg] NPI:1407 [id number] Oxygen saturation by 2020-09-26 09:22:00 98 /min Pulse oximetry Heart Rate 2020-09-26 09:22:00 99 /min NPI:1407 [id number] Respiratory rate 2020-09-26 09:22:00 26 /min Body Temperature 2020-09-26 09:22:00 97.4 [degF] Oxygen saturation by 2020-09-26 08:50:00 98 /min Pulse oximetry Heart Rate 2020-09-26 08:50:00 99 /min NPI:1407 [id number] Respiratory rate 2020-09-26 08:50:00 26 /min Oxygen saturation by 2020-09-26 08:35:00 98 /min Pulse oximetry Heart Rate 2020-09-26 08:35:00 99 /min NPI:1407 [id number] Respiratory rate 2020-09-26 08:35:00 26 /min BP Diastolic 2020-09-26 07:58:00 59 mm[Hg] NPI:1407 549874 BP Systolic 2020-09-26 07:58:00 113 mm[Hg] NPI:1407 [id number] Oxygen saturation by 2020-09-26 07:58:00 98 /min Pulse oximetry Heart Rate 2020-09-26 07:58:00 99 /min NPI:1407 [id number] Respiratory rate 2020-09-26 07:58:00 26 /min Body Temperature 2020-09-26 07:58:00 97.4 [degF] BP Diastolic 2020-09-26 04:00:00 40 mm[Hg] NPI:1407 601330 BP Systolic 2020-09-26 04:00:00 112 mm[Hg] NPI:1407 913812 Oxygen saturation by 2020-09-26 04:00:00 98 /min Pulse oximetry Heart Rate 2020-09-26 04:00:00 99 /min NPI:1407 [id number] Respiratory rate 2020-09-26 04:00:00 20 /min Body Temperature 2020-09-26 04:00:00 97.0 [degF] Oxygen saturation by 2020-09-25 20:08:00 100 /min Pulse oximetry Heart Rate 2020-09-25 20:08:00 97 /min NPI:1407 [id number] Respiratory rate 2020-09-25 20:08:00 20 /min BP Diastolic 2020-09-25 20:00:00 61 mm[Hg] NPI:1407 [id number] BP Systolic 2020-09-25 20:00:00 124 mm[Hg] NPI:1407 501640 Oxygen saturation by 2020-09-25 20:00:00 97 /min Pulse oximetry Heart Rate 2020-09-25 20:00:00 99 /min NPI:1407 [id number] Respiratory rate 2020-09-25 20:00:00 18 /min Body Temperature 2020-09-25 20:00:00 97.9 [degF] Oxygen saturation by 2020-09-25 19:53:00 97 /min Pulse oximetry Heart Rate 2020-09-25 19:53:00 94 /min NPI:1407 [id number] Respiratory rate 2020-09-25 19:53:00 20 /min BP Diastolic 2020-09-25 15:48:00 61 mm[Hg] NPI:1407 [id number] BP Systolic 2020-09-25 15:48:00 124 mm[Hg] NPI:1407 [id number] Oxygen saturation by 2020-09-25 15:48:00 97 /min Pulse oximetry Heart Rate 2020-09-25 15:48:00 99 /min NPI:1407 [id number] Respiratory rate 2020-09-25 15:48:00 18 /min Body Temperature 2020-09-25 15:48:00 98.0 [degF] Oxygen saturation by 2020-09-25 12:40:00 97 /min Pulse oximetry Heart Rate 2020-09-25 12:40:00 109 /min NPI:1407 [id number] Respiratory rate 2020-09-25 12:40:00 16 /min Oxygen saturation by 2020-09-25 12:39:00 97 /min Pulse oximetry Heart Rate 2020-09-25 12:39:00 98 /min NPI:1407 [id number] Respiratory rate 2020-09-25 12:39:00 22 /min BP Diastolic 2020-09-25 11:14:00 72 mm[Hg] NPI:1407 982116 BP Systolic 2020-09-25 11:14:00 98 mm[Hg] NPI:1407 [id number] Oxygen saturation by 2020-09-25 11:14:00 100 /min Pulse oximetry Heart Rate 2020-09-25 11:14:00 98 /min NPI:1407 [id number] Respiratory rate 2020-09-25 11:14:00 22 /min Body Temperature 2020-09-25 11:14:00 97.8 [degF] BP Diastolic 2020-09-25 09:18:00 62 mm[Hg] NPI:1407 368506 BP Systolic 2020-09-25 09:18:00 135 mm[Hg] NPI:1407 [id number] Oxygen saturation by 2020-09-25 09:18:00 98 /min Pulse oximetry Heart Rate 2020-09-25 09:18:00 96 /min NPI:1407 [id number] Respiratory rate 2020-09-25 09:18:00 18 /min Body Temperature 2020-09-25 09:18:00 97.9 [degF] Oxygen saturation by 2020-09-25 08:35:00 98 /min Pulse oximetry Heart Rate 2020-09-25 08:35:00 96 /min NPI:1407 [id number] Respiratory rate 2020-09-25 08:35:00 18 /min Oxygen saturation by 2020-09-25 08:20:00 98 /min Pulse oximetry Heart Rate 2020-09-25 08:20:00 96 /min NPI:1407 [id number] Respiratory rate 2020-09-25 08:20:00 18 /min BP Systolic 2020-09-25 07:33:00 135 mm[Hg] NPI:1407 [id number] Oxygen saturation by 2020-09-25 07:33:00 98 /min Pulse oximetry Heart Rate 2020-09-25 07:33:00 96 /min NPI:1407 [id number] Respiratory rate 2020-09-25 07:33:00 18 /min Body Temperature 2020-09-25 07:33:00 97.9 [degF] BP Diastolic 2020-09-25 07:33:00 62 mm[Hg] NPI:1407 225771 BP Diastolic 2020-09-25 04:00:00 69 mm[Hg] NPI:1407 [id number] BP Systolic 2020-09-25 04:00:00 121 mm[Hg] NPI:1407 [id number] Oxygen saturation by 2020-09-25 04:00:00 97 /min Pulse oximetry Heart Rate 2020-09-25 04:00:00 83 /min NPI:1407 [id number] Respiratory rate 2020-09-25 04:00:00 18 /min Body Temperature 2020-09-25 04:00:00 97.7 [degF] BP Diastolic 2020-09-24 23:59:00 94 mm[Hg] NPI:1407 857735 BP Systolic 2020-09-24 23:59:00 151 mm[Hg] NPI:1407 [id number] Oxygen saturation by 2020-09-24 23:59:00 99 /min Pulse oximetry Heart Rate 2020-09-24 23:59:00 97 /min NPI:1407 [id number] Respiratory rate 2020-09-24 23:59:00 17 /min Body Temperature 2020-09-24 23:59:00 97.6 [degF] BP Diastolic 2020-09-24 20:32:00 92 mm[Hg] NPI:1407 551168 BP Systolic 2020-09-24 20:32:00 165 mm[Hg] NPI:1407 554465 Oxygen saturation by 2020-09-24 20:32:00 94 /min Pulse oximetry Heart Rate 2020-09-24 20:32:00 112 /min NPI:1407 [id number] Respiratory rate 2020-09-24 20:32:00 18 /min Body Temperature 2020-09-24 20:32:00 97.7 [degF] Oxygen saturation by 2020-09-24 20:25:00 98 /min Pulse oximetry Heart Rate 2020-09-24 20:25:00 100 /min NPI:1407 [id number] Respiratory rate 2020-09-24 20:25:00 20 /min Oxygen saturation by 2020-09-24 20:10:00 95 /min Pulse oximetry Heart Rate 2020-09-24 20:10:00 102 /min NPI:1407 982203 Respiratory rate 2020-09-24 20:10:00 20 /min BP Diastolic 2020-09-24 20:00:00 92 mm[Hg] NPI:1407 [id number] BP Systolic 2020-09-24 20:00:00 165 mm[Hg] NPI:1407 [id number] Oxygen saturation by 2020-09-24 20:00:00 94 /min Pulse oximetry Heart Rate 2020-09-24 20:00:00 112 /min NPI:1407 [id number] Respiratory rate 2020-09-24 20:00:00 18 /min Body Temperature 2020-09-24 20:00:00 97.7 [degF] BP Diastolic 2020-09-24 17:13:00 71 mm[Hg] NPI:1407 988841 BP Systolic 2020-09-24 17:13:00 129 mm[Hg] NPI:1407 638538 Oxygen saturation by 2020-09-24 17:13:00 100 /min Pulse oximetry Heart Rate 2020-09-24 17:13:00 94 /min NPI:1407 [id number] Respiratory rate 2020-09-24 17:13:00 16 /min Body Temperature 2020-09-24 17:13:00 97.7 [degF] Oxygen saturation by 2020-09-24 14:00:00 100 /min Pulse oximetry Heart Rate 2020-09-24 14:00:00 94 /min NPI:1407 [id number] Respiratory rate 2020-09-24 14:00:00 16 /min Oxygen saturation by 2020-09-24 13:45:00 100 /min Pulse oximetry Heart Rate 2020-09-24 13:45:00 94 /min NPI:1407 803543 Respiratory rate 2020-09-24 13:45:00 16 /min BP Diastolic 2020-09-24 08:41:00 59 mm[Hg] NPI:1407 715921 BP Systolic 2020-09-24 08:41:00 142 mm[Hg] NPI:1407 711095 Oxygen saturation by 2020-09-24 08:41:00 100 /min Pulse oximetry Heart Rate 2020-09-24 08:41:00 94 /min NPI:1407 085857 Respiratory rate 2020-09-24 08:41:00 16 /min Body Temperature 2020-09-24 08:41:00 97.7 [degF] BP Diastolic 2020-09-24 08:30:00 59 mm[Hg] NPI:1407 [id number] BP Systolic 2020-09-24 08:30:00 142 mm[Hg] NPI:1407 [id number] Oxygen saturation by 2020-09-24 08:30:00 95 /min Pulse oximetry Heart Rate 2020-09-24 08:30:00 94 /min NPI:1407 [id number] Respiratory rate 2020-09-24 08:30:00 18 /min Body Temperature 2020-09-24 08:30:00 98.6 [degF] Oxygen saturation by 2020-09-24 06:50:00 100 /min Pulse oximetry Heart Rate 2020-09-24 06:50:00 91 /min NPI:1407 [id number] Respiratory rate 2020-09-24 06:50:00 16 /min Oxygen saturation by 2020-09-24 06:35:00 97 /min Pulse oximetry Heart Rate 2020-09-24 06:35:00 87 /min NPI:1407 [id number] Respiratory rate 2020-09-24 06:35:00 16 /min BP Diastolic 2020-09-24 04:00:00 64 mm[Hg] NPI:1407 [id number] BP Systolic 2020-09-24 04:00:00 137 mm[Hg] NPI:1407 [id number] Oxygen saturation by 2020-09-24 04:00:00 96 /min Pulse oximetry Heart Rate 2020-09-24 04:00:00 88 /min NPI:1407 [id number] Respiratory rate 2020-09-24 04:00:00 18 /min Body Temperature 2020-09-24 04:00:00 97.7 [degF] Oxygen saturation by 2020-09-24 01:18:00 97 /min Pulse oximetry Heart Rate 2020-09-24 01:18:00 91 /min NPI:1407 [id number] Respiratory rate 2020-09-24 01:18:00 18 /min Oxygen saturation by 2020-09-24 01:10:00 94 /min Pulse oximetry Heart Rate 2020-09-24 01:10:00 89 /min NPI:1407 538197 Respiratory rate 2020-09-24 01:10:00 16 /min BP Diastolic 2020-09-24 00:00:00 60 mm[Hg] NPI:1407 884562 BP Systolic 2020-09-24 00:00:00 154 mm[Hg] NPI:1407 [id number] Oxygen saturation by 2020-09-24 00:00:00 94 /min Pulse oximetry Heart Rate 2020-09-24 00:00:00 92 /min NPI:1407 [id number] Respiratory rate 2020-09-24 00:00:00 18 /min Body Temperature 2020-09-24 00:00:00 98.5 [degF] BP Diastolic 2020-09-23 21:42:00 83 mm[Hg] NPI:1407 630510 BP Systolic 2020-09-23 21:42:00 146 mm[Hg] NPI:1407 633696 Oxygen saturation by 2020-09-23 21:42:00 94 /min Pulse oximetry Heart Rate 2020-09-23 21:42:00 105 /min NPI:1407 [id number] Respiratory rate 2020-09-23 21:42:00 18 /min Body Temperature 2020-09-23 21:42:00 97.9 [degF] BP Diastolic 2020-09-23 20:00:00 83 mm[Hg] NPI:1407 [id number] BP Systolic 2020-09-23 20:00:00 146 mm[Hg] NPI:1407 860339 Oxygen saturation by 2020-09-23 20:00:00 94 /min Pulse oximetry Heart Rate 2020-09-23 20:00:00 105 /min NPI:1407 [id number] Respiratory rate 2020-09-23 20:00:00 18 /min Body Temperature 2020-09-23 20:00:00 97.9 [degF] Oxygen saturation by 2020-09-23 19:18:00 99 /min Pulse oximetry Heart Rate 2020-09-23 19:18:00 101 /min NPI:1407 [id number] Respiratory rate 2020-09-23 19:18:00 22 /min Oxygen saturation by 2020-09-23 19:10:00 94 /min Pulse oximetry Heart Rate 2020-09-23 19:10:00 98 /min NPI:1407 [id number] Respiratory rate 2020-09-23 19:10:00 20 /min BP Diastolic 2020-09-23 16:11:00 64 mm[Hg] NPI:1407 912606 BP Systolic 2020-09-23 16:11:00 135 mm[Hg] NPI:1407 [id number] Oxygen saturation by 2020-09-23 16:11:00 97 /min Pulse oximetry Heart Rate 2020-09-23 16:11:00 96 /min NPI:1407 [id number] Respiratory rate 2020-09-23 16:11:00 18 /min Body Temperature 2020-09-23 16:11:00 97.8 [degF] Oxygen saturation by 2020-09-23 14:15:00 98 /min Pulse oximetry Heart Rate 2020-09-23 14:15:00 83 /min NPI:1407 [id number] Respiratory rate 2020-09-23 14:15:00 20 /min Oxygen saturation by 2020-09-23 14:00:00 98 /min Pulse oximetry Heart Rate 2020-09-23 14:00:00 83 /min NPI:1407 [id number] Respiratory rate 2020-09-23 14:00:00 20 /min BP Diastolic 2020-09-23 08:50:00 63 mm[Hg] NPI:1407 [id number] BP Systolic 2020-09-23 08:50:00 142 mm[Hg] NPI:1407 [id number] Oxygen saturation by 2020-09-23 08:50:00 98 /min Pulse oximetry Heart Rate 2020-09-23 08:50:00 94 /min NPI:1407 [id number] Respiratory rate 2020-09-23 08:50:00 18 /min Body Temperature 2020-09-23 08:50:00 97.3 [degF] BP Diastolic 2020-09-23 08:39:00 63 mm[Hg] NPI:1407 [id number] BP Systolic 2020-09-23 08:39:00 142 mm[Hg] NPI:1407 [id number] Oxygen saturation by 2020-09-23 08:39:00 100 /min Pulse oximetry Heart Rate 2020-09-23 08:39:00 94 /min NPI:1407 [id number] Respiratory rate 2020-09-23 08:39:00 18 /min Body Temperature 2020-09-23 08:39:00 97.4 [degF] Oxygen saturation by 2020-09-23 06:45:00 100 /min Pulse oximetry Heart Rate 2020-09-23 06:45:00 94 /min NPI:1407 [id number] Respiratory rate 2020-09-23 06:45:00 18 /min Oxygen saturation by 2020-09-23 06:30:00 100 /min Pulse oximetry Heart Rate 2020-09-23 06:30:00 94 /min NPI:1407 [id number] Respiratory rate 2020-09-23 06:30:00 18 /min BP Diastolic 2020-09-23 04:30:00 75 mm[Hg] NPI:1407 804939 BP Systolic 2020-09-23 04:30:00 168 mm[Hg] NPI:1407 080975 Oxygen saturation by 2020-09-23 04:30:00 98 /min Pulse oximetry Heart Rate 2020-09-23 04:30:00 87 /min NPI:1407 [id number] Respiratory rate 2020-09-23 04:30:00 18 /min Body Temperature 2020-09-23 04:30:00 97.6 [degF] Oxygen saturation by 2020-09-23 00:40:00 94 /min Pulse oximetry Heart Rate 2020-09-23 00:40:00 81 /min NPI:1407 014582 Respiratory rate 2020-09-23 00:40:00 20 /min BP Diastolic 2020-09-23 00:23:00 76 mm[Hg] NPI:1407 [id number] BP Systolic 2020-09-23 00:23:00 141 mm[Hg] NPI:1407 [id number] Oxygen saturation by 2020-09-23 00:23:00 94 /min Pulse oximetry Heart Rate 2020-09-23 00:23:00 81 /min NPI:1407 [id number] Respiratory rate 2020-09-23 00:23:00 18 /min Body Temperature 2020-09-23 00:23:00 98.1 [degF] BP Diastolic 2020-09-22 20:04:00 81 mm[Hg] NPI:1407 [id number] BP Systolic 2020-09-22 20:04:00 158 mm[Hg] NPI:1407 [id number] Oxygen saturation by 2020-09-22 20:04:00 95 /min Pulse oximetry Heart Rate 2020-09-22 20:04:00 95 /min NPI:1407 991574 Respiratory rate 2020-09-22 20:04:00 18 /min Body Temperature 2020-09-22 20:04:00 97.6 [degF] Oxygen saturation by 2020-09-22 20:02:00 98 /min Pulse oximetry Heart Rate 2020-09-22 20:02:00 94 /min NPI:1407 [id number] Respiratory rate 2020-09-22 20:02:00 20 /min Oxygen saturation by 2020-09-22 19:47:00 96 /min Pulse oximetry Heart Rate 2020-09-22 19:47:00 95 /min NPI:1407 [id number] Respiratory rate 2020-09-22 19:47:00 20 /min Oxygen saturation by 2020-09-22 15:48:00 100 /min Pulse oximetry Heart Rate 2020-09-22 15:48:00 89 /min NPI:1407 075017 Respiratory rate 2020-09-22 15:48:00 24 /min BP Diastolic 2020-09-22 15:40:00 57 mm[Hg] NPI:1407 [id number] BP Systolic 2020-09-22 15:40:00 143 mm[Hg] NPI:1407 [id number] Oxygen saturation by 2020-09-22 15:40:00 98 /min Pulse oximetry Heart Rate 2020-09-22 15:40:00 90 /min NPI:1407 [id number] Respiratory rate 2020-09-22 15:40:00 22 /min Body Temperature 2020-09-22 15:40:00 97.6 [degF] Oxygen saturation by 2020-09-22 15:33:00 96 /min Pulse oximetry Heart Rate 2020-09-22 15:33:00 88 /min NPI:1407 [id number] Respiratory rate 2020-09-22 15:33:00 24 /min BP Diastolic 2020-09-22 11:44:00 65 mm[Hg] NPI:1407 982183 BP Systolic 2020-09-22 11:44:00 165 mm[Hg] NPI:1407 [id number] Oxygen saturation by 2020-09-22 11:44:00 100 /min Pulse oximetry Heart Rate 2020-09-22 11:44:00 81 /min NPI:1407 855714 Respiratory rate 2020-09-22 11:44:00 23 /min Body Temperature 2020-09-22 11:44:00 97.9 [degF] Oxygen saturation by 2020-09-22 11:25:00 100 /min Pulse oximetry Heart Rate 2020-09-22 11:25:00 88 /min NPI:1407 [id number] Oxygen saturation by 2020-09-22 11:10:00 96 /min Pulse oximetry Heart Rate 2020-09-22 11:10:00 84 /min NPI:1407 [id number] Respiratory rate 2020-09-22 11:10:00 24 /min BP Diastolic 2020-09-22 09:27:00 61 mm[Hg] NPI:1407 [id number] BP Systolic 2020-09-22 09:27:00 165 mm[Hg] NPI:1407 [id number] Oxygen saturation by 2020-09-22 09:27:00 94 /min Pulse oximetry Heart Rate 2020-09-22 09:27:00 84 /min NPI:1407 [id number] Respiratory rate 2020-09-22 09:27:00 22 /min Body Temperature 2020-09-22 09:27:00 98.0 [degF] BP Diastolic 2020-09-22 08:00:00 61 mm[Hg] NPI:1407 [id number] BP Systolic 2020-09-22 08:00:00 165 mm[Hg] NPI:1407 [id number] Oxygen saturation by 2020-09-22 08:00:00 94 /min Pulse oximetry Heart Rate 2020-09-22 08:00:00 84 /min NPI:1407 [id number] Respiratory rate 2020-09-22 08:00:00 22 /min Body Temperature 2020-09-22 08:00:00 98.0 [degF] BP Diastolic 2020-09-22 03:50:00 72 mm[Hg] NPI:1407 [id number] BP Systolic 2020-09-22 03:50:00 144 mm[Hg] NPI:1407 745212 Oxygen saturation by 2020-09-22 03:50:00 97 /min Pulse oximetry Heart Rate 2020-09-22 03:50:00 93 /min NPI:1407 278346 Respiratory rate 2020-09-22 03:50:00 24 /min Body Temperature 2020-09-22 03:50:00 97.9 [degF] Oxygen saturation by 2020-09-22 02:17:00 100 /min Pulse oximetry Heart Rate 2020-09-22 02:17:00 92 /min NPI:1407 [id number] Respiratory rate 2020-09-22 02:17:00 20 /min Oxygen saturation by 2020-09-22 02:02:00 100 /min Pulse oximetry Heart Rate 2020-09-22 02:02:00 88 /min NPI:1407 899513 Respiratory rate 2020-09-22 02:02:00 20 /min BP Diastolic 2020-09-22 00:02:00 64 mm[Hg] NPI:1407 167609 BP Systolic 2020-09-22 00:02:00 139 mm[Hg] NPI:1407 [id number] Oxygen saturation by 2020-09-22 00:02:00 100 /min Pulse oximetry Heart Rate 2020-09-22 00:02:00 72 /min NPI:1407 [id number] Respiratory rate 2020-09-22 00:02:00 20 /min Body Temperature 2020-09-22 00:02:00 98.4 [degF] BP Diastolic 2020-09-21 20:07:00 72 mm[Hg] NPI:1407 138597 BP Systolic 2020-09-21 20:07:00 147 mm[Hg] NPI:1407 [id number] Oxygen saturation by 2020-09-21 20:07:00 96 /min Pulse oximetry Heart Rate 2020-09-21 20:07:00 84 /min NPI:1407 [id number] Respiratory rate 2020-09-21 20:07:00 24 /min Body Temperature 2020-09-21 20:07:00 98.6 [degF] Oxygen saturation by 2020-09-21 20:02:00 97 /min Pulse oximetry Heart Rate 2020-09-21 20:02:00 80 /min NPI:1407 [id number] Respiratory rate 2020-09-21 20:02:00 18 /min BP Diastolic 2020-09-21 20:00:00 96 mm[Hg] NPI:1407 [id number] BP Systolic 2020-09-21 20:00:00 135 mm[Hg] NPI:1407 [id number] Oxygen saturation by 2020-09-21 20:00:00 95 /min Pulse oximetry Heart Rate 2020-09-21 20:00:00 78 /min NPI:1407 [id number] Respiratory rate 2020-09-21 20:00:00 18 /min Body Temperature 2020-09-21 20:00:00 98.4 [degF] BP Diastolic 2020-09-21 16:00:00 96 mm[Hg] NPI:1407 [id number] BP Systolic 2020-09-21 16:00:00 135 mm[Hg] NPI:1407 [id number] Oxygen saturation by 2020-09-21 16:00:00 95 /min Pulse oximetry Heart Rate 2020-09-21 16:00:00 78 /min NPI:1407 [id number] Respiratory rate 2020-09-21 16:00:00 18 /min Body Temperature 2020-09-21 16:00:00 98.4 [degF] BP Diastolic 2020-09-21 13:02:00 90 mm[Hg] NPI:1407 830727 BP Systolic 2020-09-21 13:02:00 201 mm[Hg] NPI:1407 616143 Oxygen saturation by 2020-09-21 13:02:00 96 /min Pulse oximetry Heart Rate 2020-09-21 13:02:00 70 /min NPI:1407 [id number] Respiratory rate 2020-09-21 13:02:00 18 /min Body Temperature 2020-09-21 13:02:00 98.3 [degF] Oxygen saturation by 2020-09-21 10:15:00 96 /min Pulse oximetry Heart Rate 2020-09-21 10:15:00 72 /min NPI:1407 [id number] Respiratory rate 2020-09-21 10:15:00 18 /min BP Diastolic 2020-09-21 09:08:00 63 mm[Hg] NPI:1407 [id number] BP Systolic 2020-09-21 09:08:00 150 mm[Hg] NPI:1407 [id number] Oxygen saturation by 2020-09-21 09:08:00 95 /min Pulse oximetry Heart Rate 2020-09-21 09:08:00 63 /min NPI:1407 [id number] Respiratory rate 2020-09-21 09:08:00 17 /min Body Temperature 2020-09-21 09:08:00 98.0 [degF] BP Diastolic 2020-09-21 08:58:00 63 mm[Hg] NPI:1407 [id number] BP Systolic 2020-09-21 08:58:00 150 mm[Hg] NPI:1407 [id number] Oxygen saturation by 2020-09-21 08:58:00 95 /min Pulse oximetry Heart Rate 2020-09-21 08:58:00 63 /min NPI:1407 [id number] Respiratory rate 2020-09-21 08:58:00 17 /min Body Temperature 2020-09-21 08:58:00 98.0 [degF] BP Diastolic 2020-09-21 07:38:00 63 mm[Hg] NPI:1407 [id number] BP Systolic 2020-09-21 07:38:00 150 mm[Hg] NPI:1407 [id number] Oxygen saturation by 2020-09-21 07:38:00 95 /min Pulse oximetry Heart Rate 2020-09-21 07:38:00 63 /min NPI:1407 [id number] Respiratory rate 2020-09-21 07:38:00 17 /min Body Temperature 2020-09-21 07:38:00 98.0 [degF] BP Diastolic 2020-09-21 04:00:00 70 mm[Hg] NPI:1407 [id number] BP Systolic 2020-09-21 04:00:00 149 mm[Hg] NPI:1407 [id number] Oxygen saturation by 2020-09-21 04:00:00 94 /min Pulse oximetry Heart Rate 2020-09-21 04:00:00 73 /min NPI:1407 [id number] Respiratory rate 2020-09-21 04:00:00 21 /min Body Temperature 2020-09-21 04:00:00 97.0 [degF] BP Diastolic 2020-09-21 00:00:00 66 mm[Hg] NPI:1407 [id number] BP Systolic 2020-09-21 00:00:00 143 mm[Hg] NPI:1407 [id number] Oxygen saturation by 2020-09-21 00:00:00 95 /min Pulse oximetry Heart Rate 2020-09-21 00:00:00 76 /min NPI:1407 [id number] Respiratory rate 2020-09-21 00:00:00 21 /min Body Temperature 2020-09-21 00:00:00 98.2 [degF] BP Diastolic 2020-09-20 20:00:00 69 mm[Hg] NPI:1407 [id number] BP Systolic 2020-09-20 20:00:00 155 mm[Hg] NPI:1407 [id number] Oxygen saturation by 2020-09-20 20:00:00 94 /min Pulse oximetry Heart Rate 2020-09-20 20:00:00 72 /min NPI:1407 [id number] Respiratory rate 2020-09-20 20:00:00 20 /min Body Temperature 2020-09-20 20:00:00 98.1 [degF] Oxygen saturation by 2020-09-20 19:53:00 99 /min Pulse oximetry Heart Rate 2020-09-20 19:53:00 72 /min NPI:1407 [id number] Respiratory rate 2020-09-20 19:53:00 16 /min Oxygen saturation by 2020-09-20 19:45:00 96 /min Pulse oximetry Heart Rate 2020-09-20 19:45:00 75 /min NPI:1407 [id number] Respiratory rate 2020-09-20 19:45:00 18 /min BP Diastolic 2020-09-20 16:36:00 69 mm[Hg] NPI:1407 [id number] BP Systolic 2020-09-20 16:36:00 155 mm[Hg] NPI:1407 [id number] Oxygen saturation by 2020-09-20 16:36:00 97 /min Pulse oximetry Heart Rate 2020-09-20 16:36:00 73 /min NPI:1407 [id number] Respiratory rate 2020-09-20 16:36:00 21 /min Body Temperature 2020-09-20 16:36:00 98.3 [degF] BP Diastolic 2020-09-20 15:47:00 60 mm[Hg] NPI:1407 [id number] BP Systolic 2020-09-20 15:47:00 133 mm[Hg] NPI:1407 [id number] Oxygen saturation by 2020-09-20 15:47:00 94 /min Pulse oximetry Heart Rate 2020-09-20 15:47:00 71 /min NPI:1407 [id number] Respiratory rate 2020-09-20 15:47:00 19 /min Body Temperature 2020-09-20 15:47:00 98.1 [degF] BP Diastolic 2020-09-20 11:55:00 60 mm[Hg] NPI:1407 [id number] BP Systolic 2020-09-20 11:55:00 133 mm[Hg] NPI:1407 [id number] Oxygen saturation by 2020-09-20 11:55:00 94 /min Pulse oximetry Heart Rate 2020-09-20 11:55:00 71 /min NPI:1407 [id number] Respiratory rate 2020-09-20 11:55:00 19 /min Body Temperature 2020-09-20 11:55:00 98.1 [degF] BP Diastolic 2020-09-20 09:06:00 66 mm[Hg] NPI:1407 [id number] BP Systolic 2020-09-20 09:06:00 145 mm[Hg] NPI:1407 [id number] Oxygen saturation by 2020-09-20 09:06:00 99 /min Pulse oximetry Heart Rate 2020-09-20 09:06:00 86 /min NPI:1407 [id number] Respiratory rate 2020-09-20 09:06:00 19 /min Body Temperature 2020-09-20 09:06:00 98.4 [degF] BP Diastolic 2020-09-20 08:58:00 66 mm[Hg] NPI:1407 [id number] BP Systolic 2020-09-20 08:58:00 145 mm[Hg] NPI:1407 [id number] Oxygen saturation by 2020-09-20 08:58:00 99 /min Pulse oximetry Heart Rate 2020-09-20 08:58:00 86 /min NPI:1407 [id number] Respiratory rate 2020-09-20 08:58:00 19 /min Body Temperature 2020-09-20 08:58:00 98.4 [degF] BP Diastolic 2020-09-20 08:55:00 66 mm[Hg] NPI:1407 [id number] BP Systolic 2020-09-20 08:55:00 145 mm[Hg] NPI:1407 [id number] Oxygen saturation by 2020-09-20 08:55:00 99 /min Pulse oximetry Heart Rate 2020-09-20 08:55:00 86 /min NPI:1407 [id number] Respiratory rate 2020-09-20 08:55:00 19 /min Body Temperature 2020-09-20 08:55:00 98.4 [degF] BP Diastolic 2020-09-20 07:38:00 66 mm[Hg] NPI:1407 [id number] BP Systolic 2020-09-20 07:38:00 145 mm[Hg] NPI:1407 [id number] Oxygen saturation by 2020-09-20 07:38:00 99 /min Pulse oximetry Heart Rate 2020-09-20 07:38:00 71 /min NPI:1407 [id number] Respiratory rate 2020-09-20 07:38:00 19 /min Body Temperature 2020-09-20 07:38:00 98.4 [degF] Oxygen saturation by 2020-09-20 07:05:00 95 /min Pulse oximetry Heart Rate 2020-09-20 07:05:00 82 /min NPI:1407 [id number] Respiratory rate 2020-09-20 07:05:00 18 /min BP Diastolic 2020-09-20 04:00:00 61 mm[Hg] NPI:1407 [id number] BP Systolic 2020-09-20 04:00:00 145 mm[Hg] NPI:1407 [id number] Oxygen saturation by 2020-09-20 04:00:00 96 /min Pulse oximetry Heart Rate 2020-09-20 04:00:00 66 /min NPI:1407 [id number] Respiratory rate 2020-09-20 04:00:00 18 /min Body Temperature 2020-09-20 04:00:00 97.5 [degF] BP Diastolic 2020-09-20 00:00:00 56 mm[Hg] NPI:1407 653032 BP Systolic 2020-09-20 00:00:00 133 mm[Hg] NPI:1407 [id number] Oxygen saturation by 2020-09-20 00:00:00 98 /min Pulse oximetry Heart Rate 2020-09-20 00:00:00 66 /min NPI:1407 [id number] Respiratory rate 2020-09-20 00:00:00 20 /min Body Temperature 2020-09-20 00:00:00 97.9 [degF] BP Diastolic 2020-09-19 21:46:00 70 mm[Hg] NPI:1407 [id number] BP Systolic 2020-09-19 21:46:00 138 mm[Hg] NPI:1407 [id number] Oxygen saturation by 2020-09-19 21:46:00 94 /min Pulse oximetry Heart Rate 2020-09-19 21:46:00 80 /min NPI:1407 057634 Respiratory rate 2020-09-19 21:46:00 18 /min Body Temperature 2020-09-19 21:46:00 97.4 [degF] Oxygen saturation by 2020-09-19 20:09:00 95 /min Pulse oximetry Heart Rate 2020-09-19 20:09:00 82 /min NPI:1407 016134 Respiratory rate 2020-09-19 20:09:00 18 /min BP Diastolic 2020-09-19 20:00:00 70 mm[Hg] NPI:1407 685336 BP Systolic 2020-09-19 20:00:00 138 mm[Hg] NPI:1407 260441 Oxygen saturation by 2020-09-19 20:00:00 94 /min Pulse oximetry Heart Rate 2020-09-19 20:00:00 80 /min NPI:1407 456205 Respiratory rate 2020-09-19 20:00:00 18 /min Body Temperature 2020-09-19 20:00:00 97.4 [degF] BP Diastolic 2020-09-19 15:41:00 70 mm[Hg] NPI:1407 221342 BP Systolic 2020-09-19 15:41:00 157 mm[Hg] NPI:1407 [id number] Oxygen saturation by 2020-09-19 15:41:00 95 /min Pulse oximetry Heart Rate 2020-09-19 15:41:00 80 /min NPI:1407 [id number] Respiratory rate 2020-09-19 15:41:00 20 /min Body Temperature 2020-09-19 15:41:00 97.6 [degF] BP Diastolic 2020-09-19 12:14:00 80 mm[Hg] NPI:1407 349244 BP Systolic 2020-09-19 12:14:00 177 mm[Hg] NPI:1407 [id number] Oxygen saturation by 2020-09-19 12:14:00 96 /min Pulse oximetry Heart Rate 2020-09-19 12:14:00 84 /min NPI:1407 068463 Respiratory rate 2020-09-19 12:14:00 17 /min BP Diastolic 2020-09-19 11:26:00 79 mm[Hg] NPI:1407 120529 BP Systolic 2020-09-19 11:26:00 204 mm[Hg] NPI:1407 133404 Oxygen saturation by 2020-09-19 11:26:00 96 /min Pulse oximetry Heart Rate 2020-09-19 11:26:00 88 /min NPI:1407 [id number] Respiratory rate 2020-09-19 11:26:00 16 /min Body Temperature 2020-09-19 11:26:00 98.6 [degF] Oxygen saturation by 2020-09-19 08:10:00 93 /min Pulse oximetry Heart Rate 2020-09-19 08:10:00 97 /min NPI:1407 [id number] Respiratory rate 2020-09-19 08:10:00 20 /min BP Diastolic 2020-09-19 07:37:00 91 mm[Hg] NPI:1407 014341 BP Systolic 2020-09-19 07:37:00 168 mm[Hg] NPI:1407 435409 Oxygen saturation by 2020-09-19 07:37:00 97 /min Pulse oximetry Heart Rate 2020-09-19 07:37:00 83 /min NPI:1407 [id number] Respiratory rate 2020-09-19 07:37:00 21 /min Body Temperature 2020-09-19 07:37:00 98.1 [degF] BP Diastolic 2020-09-19 07:17:00 91 mm[Hg] NPI:1407 456659 BP Systolic 2020-09-19 07:17:00 168 mm[Hg] NPI:1407 120497 Oxygen saturation by 2020-09-19 07:17:00 97 /min Pulse oximetry Heart Rate 2020-09-19 07:17:00 83 /min NPI:1407 015448 Respiratory rate 2020-09-19 07:17:00 21 /min Body Temperature 2020-09-19 07:17:00 98.1 [degF] BP Diastolic 2020-09-19 05:03:00 97 mm[Hg] NPI:1407 409745 BP Systolic 2020-09-19 05:03:00 157 mm[Hg] NPI:1407 [id number] Oxygen saturation by 2020-09-19 05:03:00 93 /min Pulse oximetry Heart Rate 2020-09-19 05:03:00 91 /min NPI:1407 957087 Respiratory rate 2020-09-19 05:03:00 18 /min Body Temperature 2020-09-19 05:03:00 91.0 [degF] BP Diastolic 2020-09-19 01:59:00 87 mm[Hg] NPI:1407 [id number] BP Systolic 2020-09-19 01:59:00 200 mm[Hg] NPI:1407 [id number] Oxygen saturation by 2020-09-19 01:59:00 96 /min Pulse oximetry Heart Rate 2020-09-19 01:59:00 92 /min NPI:1407 [id number] Respiratory rate 2020-09-19 01:59:00 18 /min Body Temperature 2020-09-19 01:59:00 97.7 [degF] BP Diastolic 2020-09-18 22:57:00 86 mm[Hg] NPI:1407 743328 BP Systolic 2020-09-18 22:57:00 158 mm[Hg] NPI:1407 119118 Oxygen saturation by 2020-09-18 22:57:00 96 /min Pulse oximetry Heart Rate 2020-09-18 22:57:00 68 /min NPI:1407 194324 Respiratory rate 2020-09-18 22:57:00 18 /min Body Temperature 2020-09-18 22:57:00 97.7 [degF] BP Diastolic 2020-09-18 21:58:00 86 mm[Hg] NPI:1407 267610 BP Systolic 2020-09-18 21:58:00 158 mm[Hg] NPI:1407 [id number] Oxygen saturation by 2020-09-18 21:58:00 96 /min Pulse oximetry Heart Rate 2020-09-18 21:58:00 68 /min NPI:1407 447164 Respiratory rate 2020-09-18 21:58:00 18 /min Body Temperature 2020-09-18 21:58:00 97.7 [degF] Oxygen saturation by 2020-09-18 21:16:00 93 /min Pulse oximetry Heart Rate 2020-09-18 21:16:00 97 /min NPI:1407 [id number] Respiratory rate 2020-09-18 21:16:00 20 /min BP Diastolic 2020-09-18 15:41:00 70 mm[Hg] NPI:1407 520902 BP Systolic 2020-09-18 15:41:00 163 mm[Hg] NPI:1407 [id number] Oxygen saturation by 2020-09-18 15:41:00 98 /min Pulse oximetry Heart Rate 2020-09-18 15:41:00 84 /min NPI:1407 [id number] Respiratory rate 2020-09-18 15:41:00 21 /min Body Temperature 2020-09-18 15:41:00 98.6 [degF] BP Diastolic 2020-09-18 13:00:00 73 mm[Hg] NPI:1407 730283 BP Systolic 2020-09-18 13:00:00 160 mm[Hg] NPI:1407 618334 Oxygen saturation by 2020-09-18 13:00:00 96 /min Pulse oximetry Heart Rate 2020-09-18 13:00:00 86 /min NPI:1407 [id number] Respiratory rate 2020-09-18 13:00:00 23 /min Body Temperature 2020-09-18 12:23:00 98.0 [degF] BP Diastolic 2020-09-18 12:00:00 77 mm[Hg] NPI:1407 737581 BP Systolic 2020-09-18 12:00:00 162 mm[Hg] NPI:1407 668846 Oxygen saturation by 2020-09-18 12:00:00 96 /min Pulse oximetry Heart Rate 2020-09-18 12:00:00 85 /min NPI:1407 889025 Respiratory rate 2020-09-18 12:00:00 18 /min Body Temperature 2020-09-18 12:00:00 98.0 [degF] BP Diastolic 2020-09-18 11:00:00 76 mm[Hg] NPI:1407 467822 BP Systolic 2020-09-18 11:00:00 168 mm[Hg] NPI:1407 823819 Oxygen saturation by 2020-09-18 11:00:00 96 /min Pulse oximetry Heart Rate 2020-09-18 11:00:00 86 /min NPI:1407 825065 Respiratory rate 2020-09-18 11:00:00 24 /min BP Diastolic 2020-09-18 10:00:00 79 mm[Hg] NPI:1407 051049 BP Systolic 2020-09-18 10:00:00 150 mm[Hg] NPI:1407 935125 Oxygen saturation by 2020-09-18 10:00:00 96 /min Pulse oximetry Heart Rate 2020-09-18 10:00:00 80 /min NPI:1407 488669 Respiratory rate 2020-09-18 10:00:00 19 /min BP Diastolic 2020-09-18 09:00:00 80 mm[Hg] NPI:1407 485619 BP Systolic 2020-09-18 09:00:00 141 mm[Hg] NPI:1407 894555 Oxygen saturation by 2020-09-18 09:00:00 96 /min Pulse oximetry Heart Rate 2020-09-18 09:00:00 86 /min NPI:1407 097395 Respiratory rate 2020-09-18 09:00:00 18 /min Body Temperature 2020-09-18 09:00:00 97.7 [degF] BP Diastolic 2020-09-18 08:00:00 70 mm[Hg] NPI:1407 866961 BP Systolic 2020-09-18 08:00:00 146 mm[Hg] NPI:1407 [id number] Oxygen saturation by 2020-09-18 08:00:00 96 /min Pulse oximetry Heart Rate 2020-09-18 08:00:00 86 /min NPI:1407 401212 Respiratory rate 2020-09-18 08:00:00 15 /min BP Diastolic 2020-09-18 07:51:00 80 mm[Hg] NPI:1407 862917 BP Systolic 2020-09-18 07:51:00 141 mm[Hg] NPI:1407 961172 Oxygen saturation by 2020-09-18 07:51:00 96 /min Pulse oximetry Heart Rate 2020-09-18 07:51:00 86 /min NPI:1407 832396 Respiratory rate 2020-09-18 07:51:00 17 /min Body Temperature 2020-09-18 07:51:00 97.7 [degF] Oxygen saturation by 2020-09-18 07:35:00 97 /min Pulse oximetry Heart Rate 2020-09-18 07:35:00 85 /min NPI:1407 518041 Respiratory rate 2020-09-18 07:35:00 20 /min BP Diastolic 2020-09-18 07:00:00 80 mm[Hg] NPI:1407 672867 BP Systolic 2020-09-18 07:00:00 141 mm[Hg] NPI:1407 380355 Oxygen saturation by 2020-09-18 07:00:00 97 /min Pulse oximetry Heart Rate 2020-09-18 07:00:00 86 /min NPI:1407 [id number] Respiratory rate 2020-09-18 07:00:00 17 /min Body Temperature 2020-09-18 07:00:00 97.7 [degF] BP Diastolic 2020-09-18 06:00:00 85 mm[Hg] NPI:1407 395257 BP Systolic 2020-09-18 06:00:00 174 mm[Hg] NPI:1407 518363 Oxygen saturation by 2020-09-18 06:00:00 96 /min Pulse oximetry Heart Rate 2020-09-18 06:00:00 95 /min NPI:1407 771959 Respiratory rate 2020-09-18 06:00:00 21 /min BP Diastolic 2020-09-18 05:00:00 77 mm[Hg] NPI:1407 897449 BP Systolic 2020-09-18 05:00:00 158 mm[Hg] NPI:1407 074434 Oxygen saturation by 2020-09-18 05:00:00 96 /min Pulse oximetry Heart Rate 2020-09-18 05:00:00 86 /min NPI:1407 048133 Respiratory rate 2020-09-18 05:00:00 18 /min BP Diastolic 2020-09-18 04:00:00 74 mm[Hg] NPI:1407 563481 BP Systolic 2020-09-18 04:00:00 150 mm[Hg] NPI:1407 [id number] Oxygen saturation by 2020-09-18 04:00:00 96 /min Pulse oximetry Heart Rate 2020-09-18 04:00:00 76 /min NPI:1407 [id number] Respiratory rate 2020-09-18 04:00:00 17 /min BP Diastolic 2020-09-18 03:00:00 88 mm[Hg] NPI:1407 553918 BP Systolic 2020-09-18 03:00:00 157 mm[Hg] NPI:1407 848033 Oxygen saturation by 2020-09-18 03:00:00 97 /min Pulse oximetry Heart Rate 2020-09-18 03:00:00 89 /min NPI:1407 258872 Respiratory rate 2020-09-18 03:00:00 15 /min BP Diastolic 2020-09-18 02:00:00 80 mm[Hg] NPI:1407 304540 BP Systolic 2020-09-18 02:00:00 145 mm[Hg] NPI:1407 849323 Oxygen saturation by 2020-09-18 02:00:00 96 /min Pulse oximetry Heart Rate 2020-09-18 02:00:00 95 /min NPI:1407 721279 Respiratory rate 2020-09-18 02:00:00 16 /min BP Diastolic 2020-09-18 01:00:00 73 mm[Hg] NPI:1407 926613 BP Systolic 2020-09-18 01:00:00 144 mm[Hg] NPI:1407 711744 Oxygen saturation by 2020-09-18 01:00:00 97 /min Pulse oximetry Heart Rate 2020-09-18 01:00:00 84 /min NPI:1407 714356 Respiratory rate 2020-09-18 01:00:00 19 /min BP Diastolic 2020-09-18 00:00:00 68 mm[Hg] NPI:1407 415832 BP Systolic 2020-09-18 00:00:00 144 mm[Hg] NPI:1407 414738 Oxygen saturation by 2020-09-18 00:00:00 97 /min Pulse oximetry Heart Rate 2020-09-18 00:00:00 89 /min NPI:1407 967040 Respiratory rate 2020-09-18 00:00:00 18 /min Body Temperature 2020-09-18 00:00:00 98.3 [degF] BP Diastolic 2020-09-17 23:00:00 89 mm[Hg] NPI:1407 822306 BP Systolic 2020-09-17 23:00:00 145 mm[Hg] NPI:1407 [id number] Oxygen saturation by 2020-09-17 23:00:00 96 /min Pulse oximetry Heart Rate 2020-09-17 23:00:00 90 /min NPI:1407 086542 Respiratory rate 2020-09-17 23:00:00 20 /min BP Diastolic 2020-09-17 22:03:00 67 mm[Hg] NPI:1407 404295 BP Systolic 2020-09-17 22:03:00 134 mm[Hg] NPI:1407 087983 Oxygen saturation by 2020-09-17 22:03:00 96 /min Pulse oximetry Heart Rate 2020-09-17 22:03:00 90 /min NPI:1407 015064 Respiratory rate 2020-09-17 22:03:00 18 /min BP Diastolic 2020-09-17 21:00:00 62 mm[Hg] NPI:1407 857614 BP Systolic 2020-09-17 21:00:00 117 mm[Hg] NPI:1407 341216 Oxygen saturation by 2020-09-17 21:00:00 96 /min Pulse oximetry Heart Rate 2020-09-17 21:00:00 97 /min NPI:1407 117433 Respiratory rate 2020-09-17 21:00:00 19 /min Oxygen saturation by 2020-09-17 20:08:00 96 /min Pulse oximetry Heart Rate 2020-09-17 20:08:00 95 /min NPI:1407 701799 Respiratory rate 2020-09-17 20:08:00 20 /min BP Diastolic 2020-09-17 20:00:00 86 mm[Hg] NPI:1407 714218 BP Systolic 2020-09-17 20:00:00 169 mm[Hg] NPI:1407 396137 Oxygen saturation by 2020-09-17 20:00:00 95 /min Pulse oximetry Heart Rate 2020-09-17 20:00:00 105 /min NPI:1407 005554 Respiratory rate 2020-09-17 20:00:00 23 /min BP Diastolic 2020-09-17 19:00:00 81 mm[Hg] NPI:1407 953121 BP Systolic 2020-09-17 19:00:00 172 mm[Hg] NPI:1407 245148 Oxygen saturation by 2020-09-17 19:00:00 94 /min Pulse oximetry Heart Rate 2020-09-17 19:00:00 102 /min NPI:1407 829902 Respiratory rate 2020-09-17 19:00:00 23 /min Body Temperature 2020-09-17 19:00:00 97.4 [degF] BP Diastolic 2020-09-17 18:00:00 74 mm[Hg] NPI:1407 221313 BP Systolic 2020-09-17 18:00:00 146 mm[Hg] NPI:1407 769241 Oxygen saturation by 2020-09-17 18:00:00 95 /min Pulse oximetry Heart Rate 2020-09-17 18:00:00 97 /min NPI:1407 524465 Respiratory rate 2020-09-17 18:00:00 18 /min BP Diastolic 2020-09-17 17:00:00 73 mm[Hg] NPI:1407 124557 BP Systolic 2020-09-17 17:00:00 134 mm[Hg] NPI:1407 207291 Oxygen saturation by 2020-09-17 17:00:00 94 /min Pulse oximetry Heart Rate 2020-09-17 17:00:00 106 /min NPI:1407 413046 Respiratory rate 2020-09-17 17:00:00 26 /min BP Diastolic 2020-09-17 16:00:00 83 mm[Hg] NPI:1407 704892 BP Systolic 2020-09-17 16:00:00 184 mm[Hg] NPI:1407 597433 Oxygen saturation by 2020-09-17 16:00:00 92 /min Pulse oximetry Heart Rate 2020-09-17 16:00:00 96 /min NPI:1407 546037 Respiratory rate 2020-09-17 16:00:00 32 /min Body Temperature 2020-09-17 16:00:00 98.6 [degF] Oxygen saturation by 2020-09-17 15:28:00 94 /min Pulse oximetry Heart Rate 2020-09-17 15:28:00 83 /min NPI:1407 532107 Respiratory rate 2020-09-17 15:28:00 26 /min Oxygen saturation by 2020-09-17 15:27:00 94 /min Pulse oximetry Heart Rate 2020-09-17 15:27:00 83 /min NPI:1407 118106 Respiratory rate 2020-09-17 15:27:00 26 /min BP Diastolic 2020-09-17 15:00:00 84 mm[Hg] NPI:1407 342695 BP Systolic 2020-09-17 15:00:00 181 mm[Hg] NPI:1407 235871 Oxygen saturation by 2020-09-17 15:00:00 98 /min Pulse oximetry Heart Rate 2020-09-17 15:00:00 93 /min NPI:1407 424310 Respiratory rate 2020-09-17 15:00:00 24 /min Oxygen saturation by 2020-09-17 14:59:00 94 /min Pulse oximetry Heart Rate 2020-09-17 14:59:00 84 /min NPI:1407 716269 Respiratory rate 2020-09-17 14:59:00 17 /min BP Diastolic 2020-09-17 14:00:00 94 mm[Hg] NPI:1407 398115 BP Systolic 2020-09-17 14:00:00 187 mm[Hg] NPI:1407 140725 Oxygen saturation by 2020-09-17 14:00:00 93 /min Pulse oximetry Heart Rate 2020-09-17 14:00:00 109 /min NPI:1407 [id number] Respiratory rate 2020-09-17 14:00:00 29 /min BP Diastolic 2020-09-17 13:00:00 87 mm[Hg] NPI:1407 872400 BP Systolic 2020-09-17 13:00:00 171 mm[Hg] NPI:1407 811342 Oxygen saturation by 2020-09-17 13:00:00 92 /min Pulse oximetry Heart Rate 2020-09-17 13:00:00 112 /min NPI:1407 637096 Respiratory rate 2020-09-17 13:00:00 28 /min BP Diastolic 2020-09-17 12:00:00 75 mm[Hg] NPI:1407 115472 BP Systolic 2020-09-17 12:00:00 132 mm[Hg] NPI:1407 655187 Oxygen saturation by 2020-09-17 12:00:00 92 /min Pulse oximetry Heart Rate 2020-09-17 12:00:00 112 /min NPI:1407 111387 Respiratory rate 2020-09-17 12:00:00 26 /min BP Diastolic 2020-09-17 11:00:00 80 mm[Hg] NPI:1407 042875 BP Systolic 2020-09-17 11:00:00 148 mm[Hg] NPI:1407 076315 Oxygen saturation by 2020-09-17 11:00:00 92 /min Pulse oximetry Heart Rate 2020-09-17 11:00:00 119 /min NPI:1407 [id number] Respiratory rate 2020-09-17 11:00:00 39 /min BP Diastolic 2020-09-17 10:00:00 86 mm[Hg] NPI:1407 859038 BP Systolic 2020-09-17 10:00:00 181 mm[Hg] NPI:1407 602565 Heart Rate 2020-09-17 10:00:00 105 /min NPI:1407 616805 Respiratory rate 2020-09-17 10:00:00 38 /min BP Diastolic 2020-09-17 09:00:00 82 mm[Hg] NPI:1407 955390 BP Systolic 2020-09-17 09:00:00 175 mm[Hg] NPI:1407 194832 Oxygen saturation by 2020-09-17 09:00:00 97 /min Pulse oximetry Heart Rate 2020-09-17 09:00:00 88 /min NPI:1407 380851 Respiratory rate 2020-09-17 09:00:00 17 /min Body Temperature 2020-09-17 09:00:00 97.6 [degF] BP Diastolic 2020-09-17 08:00:00 77 mm[Hg] NPI:1407 105711 BP Systolic 2020-09-17 08:00:00 167 mm[Hg] NPI:1407 483646 Oxygen saturation by 2020-09-17 08:00:00 96 /min Pulse oximetry Heart Rate 2020-09-17 08:00:00 85 /min NPI:1407 [id number] Respiratory rate 2020-09-17 08:00:00 14 /min BP Diastolic 2020-09-17 07:00:00 83 mm[Hg] NPI:1407 279537 BP Systolic 2020-09-17 07:00:00 169 mm[Hg] NPI:1407 [id number] Oxygen saturation by 2020-09-17 07:00:00 96 /min Pulse oximetry Heart Rate 2020-09-17 07:00:00 84 /min NPI:1407 243179 Respiratory rate 2020-09-17 07:00:00 15 /min BP Diastolic 2020-09-17 06:00:00 87 mm[Hg] NPI:1407 569675 BP Systolic 2020-09-17 06:00:00 159 mm[Hg] NPI:1407 797297 Oxygen saturation by 2020-09-17 06:00:00 96 /min Pulse oximetry Heart Rate 2020-09-17 06:00:00 83 /min NPI:1407 [id number] Respiratory rate 2020-09-17 06:00:00 15 /min BP Diastolic 2020-09-17 05:00:00 74 mm[Hg] NPI:1407 374507 BP Systolic 2020-09-17 05:00:00 160 mm[Hg] NPI:1407 046637 Oxygen saturation by 2020-09-17 05:00:00 96 /min Pulse oximetry Heart Rate 2020-09-17 05:00:00 84 /min NPI:1407 882704 Respiratory rate 2020-09-17 05:00:00 16 /min BP Diastolic 2020-09-17 04:00:00 85 mm[Hg] NPI:1407 968150 BP Systolic 2020-09-17 04:00:00 155 mm[Hg] NPI:1407 575930 Oxygen saturation by 2020-09-17 04:00:00 96 /min Pulse oximetry Heart Rate 2020-09-17 04:00:00 86 /min NPI:1407 640356 Respiratory rate 2020-09-17 04:00:00 22 /min BP Diastolic 2020-09-17 03:30:00 84 mm[Hg] NPI:1407 660889 BP Systolic 2020-09-17 03:30:00 196 mm[Hg] NPI:1407 480637 BP Diastolic 2020-09-17 03:00:00 82 mm[Hg] NPI:1407 190605 BP Systolic 2020-09-17 03:00:00 188 mm[Hg] NPI:1407 658264 Oxygen saturation by 2020-09-17 03:00:00 97 /min Pulse oximetry Heart Rate 2020-09-17 03:00:00 90 /min NPI:1407 [id number] Respiratory rate 2020-09-17 03:00:00 18 /min Body Temperature 2020-09-17 03:00:00 97.6 [degF] BP Diastolic 2020-09-17 02:00:00 75 mm[Hg] NPI:1407 253021 BP Systolic 2020-09-17 02:00:00 154 mm[Hg] NPI:1407 761927 Oxygen saturation by 2020-09-17 02:00:00 95 /min Pulse oximetry Heart Rate 2020-09-17 02:00:00 88 /min NPI:1407 565778 Respiratory rate 2020-09-17 02:00:00 18 /min BP Diastolic 2020-09-17 01:00:00 79 mm[Hg] NPI:1407 410992 BP Systolic 2020-09-17 01:00:00 144 mm[Hg] NPI:1407 348454 Oxygen saturation by 2020-09-17 01:00:00 94 /min Pulse oximetry Heart Rate 2020-09-17 01:00:00 88 /min NPI:1407 589386 Respiratory rate 2020-09-17 01:00:00 15 /min BP Diastolic 2020-09-17 00:00:00 76 mm[Hg] NPI:1407 111864 BP Systolic 2020-09-17 00:00:00 171 mm[Hg] NPI:1407 [id number] Oxygen saturation by 2020-09-17 00:00:00 96 /min Pulse oximetry Heart Rate 2020-09-17 00:00:00 92 /min NPI:1407 069429 Respiratory rate 2020-09-17 00:00:00 26 /min Oxygen saturation by 2020-09-16 23:05:00 95 /min Pulse oximetry Heart Rate 2020-09-16 23:05:00 77 /min NPI:1407 776505 Respiratory rate 2020-09-16 23:05:00 17 /min BP Diastolic 2020-09-16 23:00:00 123 mm[Hg] NPI:1407 767975 BP Systolic 2020-09-16 23:00:00 212 mm[Hg] NPI:1407 128936 Oxygen saturation by 2020-09-16 23:00:00 97 /min Pulse oximetry Heart Rate 2020-09-16 23:00:00 83 /min NPI:1407 [id number] Respiratory rate 2020-09-16 23:00:00 23 /min Body Temperature 2020-09-16 23:00:00 97.1 [degF] BP Diastolic 2020-09-16 22:12:00 76 mm[Hg] NPI:1407 439417 BP Systolic 2020-09-16 22:12:00 137 mm[Hg] NPI:1407 785226 Heart Rate 2020-09-16 22:12:00 80 /min NPI:1407 531635 BP Diastolic 2020-09-16 22:06:00 82 mm[Hg] NPI:1407 767088 BP Systolic 2020-09-16 22:06:00 176 mm[Hg] NPI:1407 975805 Oxygen saturation by 2020-09-16 22:06:00 96 /min Pulse oximetry Heart Rate 2020-09-16 22:06:00 82 /min NPI:1407 522372 Respiratory rate 2020-09-16 22:06:00 18 /min BP Diastolic 2020-09-16 22:03:00 81 mm[Hg] NPI:1407 853328 BP Systolic 2020-09-16 22:03:00 201 mm[Hg] NPI:1407 [id number] Oxygen saturation by 2020-09-16 22:03:00 96 /min Pulse oximetry Heart Rate 2020-09-16 22:03:00 84 /min NPI:1407 [id number] Respiratory rate 2020-09-16 22:03:00 22 /min BP Diastolic 2020-09-16 22:00:00 86 mm[Hg] NPI:1407 326796 BP Systolic 2020-09-16 22:00:00 206 mm[Hg] NPI:1407 [id number] Oxygen saturation by 2020-09-16 22:00:00 96 /min Pulse oximetry Heart Rate 2020-09-16 22:00:00 86 /min NPI:1407 [id number] Respiratory rate 2020-09-16 22:00:00 19 /min BP Diastolic 2020-09-16 21:01:00 69 mm[Hg] NPI:1407 315594 BP Systolic 2020-09-16 21:01:00 153 mm[Hg] NPI:1407 263105 Oxygen saturation by 2020-09-16 21:01:00 96 /min Pulse oximetry Heart Rate 2020-09-16 21:01:00 85 /min NPI:1407 144314 Respiratory rate 2020-09-16 21:01:00 17 /min BP Diastolic 2020-09-16 20:44:00 111 mm[Hg] NPI:1407 [id number] BP Systolic 2020-09-16 20:44:00 141 mm[Hg] NPI:1407 [id number] Oxygen saturation by 2020-09-16 20:44:00 96 /min Pulse oximetry Heart Rate 2020-09-16 20:44:00 84 /min NPI:1407 [id number] Respiratory rate 2020-09-16 20:44:00 21 /min Body Temperature 2020-09-16 20:44:00 98.0 [degF] BP Diastolic 2020-09-16 20:42:00 111 mm[Hg] NPI:1407 [id number] BP Systolic 2020-09-16 20:42:00 141 mm[Hg] NPI:1407 [id number] Heart Rate 2020-09-16 20:42:00 84 /min NPI:1407 [id number] BP Diastolic 2020-09-16 20:24:00 66 mm[Hg] NPI:1407 [id number] BP Systolic 2020-09-16 20:24:00 163 mm[Hg] NPI:1407 [id number] Heart Rate 2020-09-16 20:24:00 84 /min NPI:1407 [id number] BP Diastolic 2020-09-16 20:00:00 88 mm[Hg] NPI:1407 [id number] BP Systolic 2020-09-16 20:00:00 185 mm[Hg] NPI:1407 [id number] Oxygen saturation by 2020-09-16 20:00:00 96 /min Pulse oximetry Heart Rate 2020-09-16 20:00:00 96 /min NPI:1407 [id number] Respiratory rate 2020-09-16 20:00:00 21 /min Body Temperature 2020-09-16 20:00:00 98.0 [degF] Oxygen saturation by 2020-09-16 19:40:00 96 /min Pulse oximetry Heart Rate 2020-09-16 19:40:00 105 /min NPI:1407 [id number] Respiratory rate 2020-09-16 19:40:00 27 /min BP Diastolic 2020-09-16 16:00:00 90 mm[Hg] NPI:1407 [id number] BP Systolic 2020-09-16 16:00:00 175 mm[Hg] NPI:1407 [id number] Oxygen saturation by 2020-09-16 16:00:00 96 /min Pulse oximetry Heart Rate 2020-09-16 16:00:00 108 /min NPI:1407 [id number] Respiratory rate 2020-09-16 16:00:00 36 /min Body Temperature 2020-09-16 16:00:00 98.5 [degF] BP Diastolic 2020-09-16 13:00:00 73 mm[Hg] NPI:1407 [id number] BP Systolic 2020-09-16 13:00:00 149 mm[Hg] NPI:1407 [id number] Oxygen saturation by 2020-09-16 13:00:00 2 /min Pulse oximetry Heart Rate 2020-09-16 13:00:00 90 /min NPI:1407 [id number] Respiratory rate 2020-09-16 13:00:00 15 /min BP Diastolic 2020-09-16 12:00:00 88 mm[Hg] NPI:1407 [id number] BP Systolic 2020-09-16 12:00:00 174 mm[Hg] NPI:1407 [id number] Oxygen saturation by 2020-09-16 12:00:00 94 /min Pulse oximetry Heart Rate 2020-09-16 12:00:00 101 /min NPI:1407 [id number] Respiratory rate 2020-09-16 12:00:00 32 /min Body Temperature 2020-09-16 12:00:00 97.8 [degF] Oxygen saturation by 2020-09-16 11:00:00 96 /min Pulse oximetry Heart Rate 2020-09-16 11:00:00 79 /min NPI:1407 [id number] Respiratory rate 2020-09-16 11:00:00 19 /min BP Diastolic 2020-09-16 11:00:00 81 mm[Hg] NPI:1407 [id number] BP Systolic 2020-09-16 11:00:00 186 mm[Hg] NPI:1407 [id number] BP Diastolic 2020-09-16 10:00:00 82 mm[Hg] NPI:1407 [id number] BP Systolic 2020-09-16 10:00:00 166 mm[Hg] NPI:1407 [id number] Oxygen saturation by 2020-09-16 10:00:00 95 /min Pulse oximetry Heart Rate 2020-09-16 10:00:00 82 /min NPI:1407 [id number] Respiratory rate 2020-09-16 10:00:00 20 /min Body Temperature 2020-09-16 10:00:00 98.4 [degF] BP Diastolic 2020-09-16 09:00:00 82 mm[Hg] NPI:1407 [id number] BP Systolic 2020-09-16 09:00:00 166 mm[Hg] NPI:1407 [id number] Oxygen saturation by 2020-09-16 09:00:00 95 /min Pulse oximetry Heart Rate 2020-09-16 09:00:00 82 /min NPI:1407 [id number] Respiratory rate 2020-09-16 09:00:00 20 /min BP Diastolic 2020-09-16 08:00:00 77 mm[Hg] NPI:1407 [id number] BP Systolic 2020-09-16 08:00:00 197 mm[Hg] NPI:1407 [id number] Oxygen saturation by 2020-09-16 08:00:00 94 /min Pulse oximetry Heart Rate 2020-09-16 08:00:00 79 /min NPI:1407 [id number] Respiratory rate 2020-09-16 08:00:00 23 /min BP Diastolic 2020-09-16 07:00:00 110 mm[Hg] NPI:1407 [id number] BP Systolic 2020-09-16 07:00:00 173 mm[Hg] NPI:1407 [id number] Oxygen saturation by 2020-09-16 07:00:00 95 /min Pulse oximetry Heart Rate 2020-09-16 07:00:00 73 /min NPI:1407 [id number] Respiratory rate 2020-09-16 07:00:00 20 /min Body Temperature 2020-09-16 07:00:00 98.4 [degF] BP Diastolic 2020-09-16 06:00:00 78 mm[Hg] NPI:1407 [id number] BP Systolic 2020-09-16 06:00:00 178 mm[Hg] NPI:1407 [id number] Oxygen saturation by 2020-09-16 06:00:00 93 /min Pulse oximetry Heart Rate 2020-09-16 06:00:00 87 /min NPI:1407 [id number] Respiratory rate 2020-09-16 06:00:00 19 /min BP Diastolic 2020-09-16 05:00:00 71 mm[Hg] NPI:1407 [id number] BP Systolic 2020-09-16 05:00:00 150 mm[Hg] NPI:1407 [id number] Oxygen saturation by 2020-09-16 05:00:00 96 /min Pulse oximetry Heart Rate 2020-09-16 05:00:00 89 /min NPI:1407 [id number] Respiratory rate 2020-09-16 05:00:00 22 /min BP Diastolic 2020-09-16 04:00:00 71 mm[Hg] NPI:1407 [id number] BP Systolic 2020-09-16 04:00:00 139 mm[Hg] NPI:1407 [id number] Oxygen saturation by 2020-09-16 04:00:00 96 /min Pulse oximetry Heart Rate 2020-09-16 04:00:00 85 /min NPI:1407 [id number] Respiratory rate 2020-09-16 04:00:00 16 /min BP Diastolic 2020-09-16 03:00:00 69 mm[Hg] NPI:1407 [id number] BP Systolic 2020-09-16 03:00:00 135 mm[Hg] NPI:1407 [id number] Oxygen saturation by 2020-09-16 03:00:00 95 /min Pulse oximetry Heart Rate 2020-09-16 03:00:00 82 /min NPI:1407 [id number] Respiratory rate 2020-09-16 03:00:00 15 /min Body Temperature 2020-09-16 03:00:00 98.5 [degF] BP Diastolic 2020-09-16 02:00:00 66 mm[Hg] NPI:1407 [id number] BP Systolic 2020-09-16 02:00:00 140 mm[Hg] NPI:1407 [id number] Oxygen saturation by 2020-09-16 02:00:00 95 /min Pulse oximetry Heart Rate 2020-09-16 02:00:00 83 /min NPI:1407 [id number] Respiratory rate 2020-09-16 02:00:00 17 /min BP Diastolic 2020-09-16 01:00:00 70 mm[Hg] NPI:1407 [id number] BP Systolic 2020-09-16 01:00:00 164 mm[Hg] NPI:1407 [id number] Oxygen saturation by 2020-09-16 01:00:00 96 /min Pulse oximetry Heart Rate 2020-09-16 01:00:00 84 /min NPI:1407 [id number] Respiratory rate 2020-09-16 01:00:00 20 /min BP Diastolic 2020-09-16 00:00:00 86 mm[Hg] NPI:1407 [id number] BP Systolic 2020-09-16 00:00:00 173 mm[Hg] NPI:1407 [id number] Oxygen saturation by 2020-09-16 00:00:00 94 /min Pulse oximetry Heart Rate 2020-09-16 00:00:00 77 /min NPI:1407 [id number] Respiratory rate 2020-09-16 00:00:00 20 /min Body Temperature 2020-09-16 00:00:00 98.6 [degF] BP Diastolic 2020-09-15 23:00:00 59 mm[Hg] NPI:1407 [id number] BP Systolic 2020-09-15 23:00:00 143 mm[Hg] NPI:1407 [id number] Oxygen saturation by 2020-09-15 23:00:00 95 /min Pulse oximetry Heart Rate 2020-09-15 23:00:00 79 /min NPI:1407 [id number] Respiratory rate 2020-09-15 23:00:00 18 /min BP Diastolic 2020-09-15 22:00:00 55 mm[Hg] NPI:1407 911690 BP Systolic 2020-09-15 22:00:00 133 mm[Hg] NPI:1407 [id number] Oxygen saturation by 2020-09-15 22:00:00 94 /min Pulse oximetry Heart Rate 2020-09-15 22:00:00 78 /min NPI:1407 [id number] Respiratory rate 2020-09-15 22:00:00 17 /min BP Diastolic 2020-09-15 21:00:00 56 mm[Hg] NPI:1407 944390 BP Systolic 2020-09-15 21:00:00 145 mm[Hg] NPI:1407 [id number] Oxygen saturation by 2020-09-15 21:00:00 93 /min Pulse oximetry Heart Rate 2020-09-15 21:00:00 79 /min NPI:1407 [id number] Respiratory rate 2020-09-15 21:00:00 17 /min Oxygen saturation by 2020-09-15 20:50:00 94 /min Pulse oximetry Heart Rate 2020-09-15 20:50:00 81 /min NPI:1407 [id number] Respiratory rate 2020-09-15 20:50:00 18 /min BP Diastolic 2020-09-15 20:00:00 56 mm[Hg] NPI:1407 [id number] BP Systolic 2020-09-15 20:00:00 165 mm[Hg] NPI:1407 [id number] Oxygen saturation by 2020-09-15 20:00:00 97 /min Pulse oximetry Heart Rate 2020-09-15 20:00:00 76 /min NPI:1407 [id number] Respiratory rate 2020-09-15 20:00:00 22 /min Oxygen saturation by 2020-09-15 19:00:00 96 /min Pulse oximetry Respiratory rate 2020-09-15 19:00:00 14 /min Body Temperature 2020-09-15 19:00:00 98.7 [degF] BP Diastolic 2020-09-15 18:00:00 115 mm[Hg] NPI:1407 [id number] BP Systolic 2020-09-15 18:00:00 154 mm[Hg] NPI:1407 [id number] Oxygen saturation by 2020-09-15 18:00:00 94 /min Pulse oximetry Heart Rate 2020-09-15 18:00:00 79 /min NPI:1407 [id number] Respiratory rate 2020-09-15 18:00:00 19 /min BP Diastolic 2020-09-15 17:00:00 65 mm[Hg] NPI:1407 [id number] BP Systolic 2020-09-15 17:00:00 154 mm[Hg] NPI:1407 [id number] Oxygen saturation by 2020-09-15 17:00:00 95 /min Pulse oximetry Heart Rate 2020-09-15 17:00:00 71 /min NPI:1407 [id number] Respiratory rate 2020-09-15 17:00:00 18 /min BP Diastolic 2020-09-15 16:00:00 75 mm[Hg] NPI:1407 195800 BP Systolic 2020-09-15 16:00:00 159 mm[Hg] NPI:1407 507656 Oxygen saturation by 2020-09-15 16:00:00 94 /min Pulse oximetry Heart Rate 2020-09-15 16:00:00 75 /min NPI:1407 523709 Respiratory rate 2020-09-15 16:00:00 16 /min BP Diastolic 2020-09-15 15:14:00 71 mm[Hg] NPI:1407 659247 BP Systolic 2020-09-15 15:14:00 169 mm[Hg] NPI:1407 [id number] Oxygen saturation by 2020-09-15 15:14:00 100 /min Pulse oximetry Heart Rate 2020-09-15 15:14:00 75 /min NPI:1407 [id number] Body Temperature 2020-09-15 15:14:00 97.7 [degF] BP Diastolic 2020-09-15 15:10:00 66 mm[Hg] NPI:1407 786611 BP Systolic 2020-09-15 15:10:00 156 mm[Hg] NPI:1407 [id number] Oxygen saturation by 2020-09-15 15:10:00 100 /min Pulse oximetry Heart Rate 2020-09-15 15:10:00 74 /min NPI:1407 [id number] Respiratory rate 2020-09-15 15:10:00 18 /min BP Diastolic 2020-09-15 14:50:00 84 mm[Hg] NPI:1407 360103 BP Systolic 2020-09-15 14:50:00 176 mm[Hg] NPI:1407 120247 Oxygen saturation by 2020-09-15 14:50:00 100 /min Pulse oximetry Heart Rate 2020-09-15 14:50:00 81 /min NPI:1407 372108 Respiratory rate 2020-09-15 14:50:00 18 /min BP Diastolic 2020-09-15 14:40:00 94 mm[Hg] NPI:1407 036709 BP Systolic 2020-09-15 14:40:00 200 mm[Hg] NPI:1407 [id number] Oxygen saturation by 2020-09-15 14:40:00 97 /min Pulse oximetry Heart Rate 2020-09-15 14:40:00 96 /min NPI:1407 600815 Respiratory rate 2020-09-15 14:40:00 16 /min BP Diastolic 2020-09-15 14:25:00 96 mm[Hg] NPI:1407 538911 BP Systolic 2020-09-15 14:25:00 175 mm[Hg] NPI:1407 615919 Oxygen saturation by 2020-09-15 14:25:00 98 /min Pulse oximetry Heart Rate 2020-09-15 14:25:00 99 /min NPI:1407 660893 Respiratory rate 2020-09-15 14:25:00 16 /min Body Temperature 2020-09-15 14:25:00 98.0 [degF] BP Diastolic 2020-09-15 11:14:00 67 mm[Hg] NPI:1407 062051 BP Systolic 2020-09-15 11:14:00 177 mm[Hg] NPI:1407 [id number] Oxygen saturation by 2020-09-15 11:14:00 94 /min Pulse oximetry Heart Rate 2020-09-15 11:14:00 70 /min NPI:1407 [id number] Respiratory rate 2020-09-15 11:14:00 18 /min Body Temperature 2020-09-15 11:14:00 97.6 [degF] BP Diastolic 2020-09-15 08:52:00 75 mm[Hg] NPI:1407 558408 BP Systolic 2020-09-15 08:52:00 171 mm[Hg] NPI:1407 [id number] Oxygen saturation by 2020-09-15 08:52:00 92 /min Pulse oximetry Heart Rate 2020-09-15 08:52:00 74 /min NPI:1407 942807 Respiratory rate 2020-09-15 08:52:00 18 /min Body Temperature 2020-09-15 08:52:00 97.6 [degF] BP Diastolic 2020-09-15 07:45:00 75 mm[Hg] NPI:1407 [id number] BP Systolic 2020-09-15 07:45:00 171 mm[Hg] NPI:1407 [id number] Oxygen saturation by 2020-09-15 07:45:00 92 /min Pulse oximetry Heart Rate 2020-09-15 07:45:00 74 /min NPI:1407 [id number] Respiratory rate 2020-09-15 07:45:00 18 /min Body Temperature 2020-09-15 07:45:00 97.6 [degF] BP Diastolic 2020-09-15 04:00:00 56 mm[Hg] NPI:1407 379893 BP Systolic 2020-09-15 04:00:00 156 mm[Hg] NPI:1407 [id number] Oxygen saturation by 2020-09-15 04:00:00 93 /min Pulse oximetry Heart Rate 2020-09-15 04:00:00 68 /min NPI:1407 [id number] Respiratory rate 2020-09-15 04:00:00 18 /min Body Temperature 2020-09-15 04:00:00 98.4 [degF] BP Diastolic 2020-09-15 00:00:00 71 mm[Hg] NPI:1407 276175 BP Systolic 2020-09-15 00:00:00 140 mm[Hg] NPI:1407 649071 Oxygen saturation by 2020-09-15 00:00:00 94 /min Pulse oximetry Heart Rate 2020-09-15 00:00:00 72 /min NPI:1407 [id number] Respiratory rate 2020-09-15 00:00:00 18 /min Body Temperature 2020-09-15 00:00:00 98.4 [degF] BP Diastolic 2020-09-14 20:27:00 80 mm[Hg] NPI:1407 [id number] BP Systolic 2020-09-14 20:27:00 180 mm[Hg] NPI:1407 [id number] Oxygen saturation by 2020-09-14 20:27:00 92 /min Pulse oximetry Heart Rate 2020-09-14 20:27:00 90 /min NPI:1407 [id number] Respiratory rate 2020-09-14 20:27:00 20 /min Body Temperature 2020-09-14 20:27:00 98.5 [degF] BP Diastolic 2020-09-14 20:00:00 80 mm[Hg] NPI:1407 814612 BP Systolic 2020-09-14 20:00:00 180 mm[Hg] NPI:1407 445171 Oxygen saturation by 2020-09-14 20:00:00 92 /min Pulse oximetry Heart Rate 2020-09-14 20:00:00 90 /min NPI:1407 [id number] Respiratory rate 2020-09-14 20:00:00 20 /min Body Temperature 2020-09-14 20:00:00 98.5 [degF] BP Diastolic 2020-09-14 15:47:00 82 mm[Hg] NPI:1407 151057 BP Systolic 2020-09-14 15:47:00 155 mm[Hg] NPI:1407 232272 Oxygen saturation by 2020-09-14 15:47:00 95 /min Pulse oximetry Heart Rate 2020-09-14 15:47:00 85 /min NPI:1407 [id number] Respiratory rate 2020-09-14 15:47:00 16 /min Body Temperature 2020-09-14 15:47:00 98.1 [degF] BP Diastolic 2020-09-14 11:15:00 73 mm[Hg] NPI:1407 866558 BP Systolic 2020-09-14 11:15:00 165 mm[Hg] NPI:1407 956468 Oxygen saturation by 2020-09-14 11:15:00 93 /min Pulse oximetry Heart Rate 2020-09-14 11:15:00 89 /min NPI:1407 [id number] Respiratory rate 2020-09-14 11:15:00 19 /min Body Temperature 2020-09-14 11:15:00 98.3 [degF] BP Diastolic 2020-09-14 07:49:00 67 mm[Hg] NPI:1407 570429 BP Systolic 2020-09-14 07:49:00 166 mm[Hg] NPI:1407 [id number] Oxygen saturation by 2020-09-14 07:49:00 93 /min Pulse oximetry Heart Rate 2020-09-14 07:49:00 88 /min NPI:1407 158708 Respiratory rate 2020-09-14 07:49:00 18 /min Body Temperature 2020-09-14 07:49:00 97.9 [degF] BP Diastolic 2020-09-14 07:31:00 67 mm[Hg] NPI:1407 [id number] BP Systolic 2020-09-14 07:31:00 166 mm[Hg] NPI:1407 852881 Oxygen saturation by 2020-09-14 07:31:00 93 /min Pulse oximetry Heart Rate 2020-09-14 07:31:00 88 /min NPI:1407 637685 Respiratory rate 2020-09-14 07:31:00 18 /min Body Temperature 2020-09-14 07:31:00 97.9 [degF] BP Diastolic 2020-09-14 04:00:00 74 mm[Hg] NPI:1407 693183 BP Systolic 2020-09-14 04:00:00 175 mm[Hg] NPI:1407 [id number] Oxygen saturation by 2020-09-14 04:00:00 94 /min Pulse oximetry Heart Rate 2020-09-14 04:00:00 94 /min NPI:1407 554346 Respiratory rate 2020-09-14 04:00:00 18 /min Body Temperature 2020-09-14 04:00:00 97.9 [degF] BP Diastolic 2020-09-14 00:00:00 77 mm[Hg] NPI:1407 [id number] BP Systolic 2020-09-14 00:00:00 178 mm[Hg] NPI:1407 370342 Oxygen saturation by 2020-09-14 00:00:00 95 /min Pulse oximetry Heart Rate 2020-09-14 00:00:00 90 /min NPI:1407 [id number] Respiratory rate 2020-09-14 00:00:00 18 /min Body Temperature 2020-09-14 00:00:00 98.1 [degF] BP Diastolic 2020-09-13 20:12:00 84 mm[Hg] NPI:1407 866597 BP Systolic 2020-09-13 20:12:00 177 mm[Hg] NPI:1407 [id number] Oxygen saturation by 2020-09-13 20:12:00 94 /min Pulse oximetry Heart Rate 2020-09-13 20:12:00 88 /min NPI:1407 [id number] Respiratory rate 2020-09-13 20:12:00 18 /min Body Temperature 2020-09-13 20:12:00 97.8 [degF] BP Diastolic 2020-09-13 20:00:00 84 mm[Hg] NPI:1407 515854 BP Systolic 2020-09-13 20:00:00 177 mm[Hg] NPI:1407 224241 Oxygen saturation by 2020-09-13 20:00:00 94 /min Pulse oximetry Heart Rate 2020-09-13 20:00:00 88 /min NPI:1407 525995 Respiratory rate 2020-09-13 20:00:00 18 /min Body Temperature 2020-09-13 20:00:00 97.8 [degF] BP Diastolic 2020-09-13 16:11:00 82 mm[Hg] NPI:1407 078347 BP Systolic 2020-09-13 16:11:00 140 mm[Hg] NPI:1407 577609 Oxygen saturation by 2020-09-13 16:11:00 94 /min Pulse oximetry Heart Rate 2020-09-13 16:11:00 78 /min NPI:1407 [id number] Respiratory rate 2020-09-13 16:11:00 18 /min Body Temperature 2020-09-13 16:11:00 98.1 [degF] BP Diastolic 2020-09-13 12:08:00 84 mm[Hg] NPI:1407 573962 BP Systolic 2020-09-13 12:08:00 172 mm[Hg] NPI:1407 107597 Oxygen saturation by 2020-09-13 12:08:00 94 /min Pulse oximetry Heart Rate 2020-09-13 12:08:00 82 /min NPI:1407 [id number] Respiratory rate 2020-09-13 12:08:00 17 /min Body Temperature 2020-09-13 12:08:00 98.2 [degF] BP Diastolic 2020-09-13 11:16:00 79 mm[Hg] NPI:1407 575389 BP Systolic 2020-09-13 11:16:00 151 mm[Hg] NPI:1407 494604 Oxygen saturation by 2020-09-13 11:16:00 95 /min Pulse oximetry Heart Rate 2020-09-13 11:16:00 79 /min NPI:1407 [id number] Respiratory rate 2020-09-13 11:16:00 18 /min Body Temperature 2020-09-13 11:16:00 97.4 [degF] BP Diastolic 2020-09-13 08:45:00 79 mm[Hg] NPI:1407 912941 BP Systolic 2020-09-13 08:45:00 151 mm[Hg] NPI:1407 [id number] Oxygen saturation by 2020-09-13 08:45:00 95 /min Pulse oximetry Heart Rate 2020-09-13 08:45:00 79 /min NPI:1407 [id number] Respiratory rate 2020-09-13 08:45:00 18 /min Body Temperature 2020-09-13 08:45:00 97.4 [degF] BP Diastolic 2020-09-13 04:00:00 82 mm[Hg] NPI:1407 [id number] BP Systolic 2020-09-13 04:00:00 179 mm[Hg] NPI:1407 [id number] Oxygen saturation by 2020-09-13 04:00:00 92 /min Pulse oximetry Heart Rate 2020-09-13 04:00:00 87 /min NPI:1407 [id number] Respiratory rate 2020-09-13 04:00:00 20 /min Body Temperature 2020-09-13 04:00:00 97.9 [degF] BP Diastolic 2020-09-13 00:00:00 79 mm[Hg] NPI:1407 894554 BP Systolic 2020-09-13 00:00:00 150 mm[Hg] NPI:1407 [id number] Oxygen saturation by 2020-09-13 00:00:00 93 /min Pulse oximetry Heart Rate 2020-09-13 00:00:00 76 /min NPI:1407 845250 Respiratory rate 2020-09-13 00:00:00 20 /min Body Temperature 2020-09-13 00:00:00 98.7 [degF] BP Diastolic 2020-09-12 22:28:00 92 mm[Hg] NPI:1407 155523 BP Systolic 2020-09-12 22:28:00 150 mm[Hg] NPI:1407 512162 Oxygen saturation by 2020-09-12 22:28:00 95 /min Pulse oximetry Heart Rate 2020-09-12 22:28:00 96 /min NPI:1407 [id number] Respiratory rate 2020-09-12 22:28:00 18 /min Body Temperature 2020-09-12 22:28:00 97.9 [degF] BP Diastolic 2020-09-12 22:18:00 92 mm[Hg] NPI:1407 886511 BP Systolic 2020-09-12 22:18:00 150 mm[Hg] NPI:1407 [id number] Oxygen saturation by 2020-09-12 22:18:00 95 /min Pulse oximetry Heart Rate 2020-09-12 22:18:00 96 /min NPI:1407 524681 Respiratory rate 2020-09-12 22:18:00 18 /min Body Temperature 2020-09-12 22:18:00 97.9 [degF] BP Diastolic 2020-09-12 20:23:00 92 mm[Hg] NPI:1407 084039 BP Systolic 2020-09-12 20:23:00 150 mm[Hg] NPI:1407 [id number] Oxygen saturation by 2020-09-12 20:23:00 96 /min Pulse oximetry Heart Rate 2020-09-12 20:23:00 95 /min NPI:1407 [id number] Respiratory rate 2020-09-12 20:23:00 18 /min Body Temperature 2020-09-12 20:23:00 97.9 [degF] Oxygen saturation by 2020-09-12 20:11:00 96 /min Pulse oximetry Oxygen saturation by 2020-09-12 18:25:00 98 /min Pulse oximetry Oxygen saturation by 2020-09-12 15:35:00 98 /min Pulse oximetry Procedures Procedure Date / Time Performing Clinician Source Performed XR CHEST 1 VW PORTABLE 2021-07-12 01:01:53 Freeman Crabtree [facility] COVID-19 ANTI-SPIKE IGG 2021-07-11 10:41:00 [facility] ANTIBODY TITER COVID-19 SEROLOGY PATIENT 2021-07-11 10:41:00 [facility] SURVEILLANCE HC COMPLETE BLD COUNT 2021-07-11 10:41:00 [facility] W/AUTO DIFF BASIC METABOLIC PANEL 2021-07-11 10:41:00 [facility] ESTIMATED GFR 2021-07-11 10:41:00 [facility] URINE CULTURE 2021-07-11 06:57:00 Dell zulay [facility] URINALYSIS SCREEN AND 2021-07-11 [facility], WITH REFLEX TO CULTURE POC GLUCOSE 2021-07-11 00:27:00 [facility] POC GLUCOSE 2021-07-10 14:52:00 [facility] HC COMPLETE BLD COUNT 2021-07-10 10:51:00 [facility] W/AUTO DIFF BASIC METABOLIC PANEL 2021-07-10 10:51:00 [facility] ESTIMATED GFR 2021-07-10 10:51:00 [facility] POC GLUCOSE 2021-07-10 02:09:[address] [facility] [address] CHEST WO CONTRAST 2021-07-09 21:47:19 [facility] HC COMPLETE BLD COUNT 2021-07-09 11:14:00 [facility] W/AUTO DIFF BASIC METABOLIC PANEL 2021-07-09 11:14:00 [facility] ESTIMATED GFR 2021-07-09 11:14:00 [facility] BLOOD CULTURE, AEROBIC & 2021-07-09 08:54:00 [facility] ANAEROBIC Trav R. TROPONIN T 2021-07-09 07:57:00 [facility] THYROID STIMULATING 2021-07-09 07:57:00 [facility] HORMONE T4, FREE 2021-07-09 07:57:00 [facility] LIPID PANEL 2021-07-09 07:57:00 [facility] INTERLEUKIN 6 2021-07-09 07:57:00 [facility] CRP HIGH SENSITIVITY 2021-07-09 07:57:00 [facility] LDH 2021-07-09 07:57:00 [facility] D-DIMER 2021-07-09 07:57:00 [facility] PROCALCITONIN 2021-07-09 07:57:00 [facility] PROTHROMBIN TIME WITH INR 2021-07-09 07:57:00 [facility] SEDIMENTATION RATE 2021-07-09 07:57:00 [facility] FERRITIN LEVEL 2021-07-09 07:57:00 [facility] ECG 12-LEAD 2021-07-09 06:58:43 [facility] XR CHEST 1 VW PORTABLE 2021-07-09 05:32:00 [facility] Trav R. TROPONIN T 2021-07-09 04:50:[address] [facility] [address] HEAD WO CONTRAST 2021-07-09 01:50:[address] [facility] Trav RChun COVID-19 QUALITATIVE 2021-07-09 01:34:00 [facility] RT-PCR Trav RChun COVID-19 OMICRON VARIANT 2021-07-09 01:34:00 [facility] QUALITATIVE RT-PCR Trav RChun HC COMPLETE BLD COUNT 2021-07-09 01:34:00 [facility] W/AUTO DIFF Trav RChun PROTHROMBIN TIME WITH INR 2021-07-09 01:34:00 [facility] Trav R. PARTIAL THROMBOPLASTIN 2021-07-09 01:34:00 [facility] TIME (PTT) Trav R. BASIC METABOLIC PANEL 2021-07-09 01:34:00 [facility] Trav R. TROPONIN T 2021-07-09 01:34:00 [facility] B NATRIURETIC PEPTIDE 2021-07-09 01:34:00 [facility] Trav R. ESTIMATED GFR 2021-07-09 01:34:00 [facility] Trav R. ECG 12-LEAD 2021-07-08 22:51:26 Grant Arias barry Trav RChun CT RENAL STONE PROTOCOL 2021-07-01 18:38:22 [facility] URINALYSIS 2021-07-01 18:13:00 [facility] HC COMPLETE BLD COUNT 2021-04-23 10:03:00 [facility] W/AUTO DIFF BASIC METABOLIC PANEL 2021-04-23 10:03:00 [facility] ESTIMATED GFR 2021-04-23 10:03:00 [facility] CT CARDIAC OVERREAD 2021-04-20 15:36:45 [facility] CV CTA CORONARY ARTERIES 2021-04-20 15:36:00 Jaclyn Tate [facility] W CONTRAST HC COMPLETE BLD COUNT 2021-04-20 11:45:00 [facility] W/AUTO DIFF BASIC METABOLIC PANEL 2021-04-20 11:45:00 [facility] ESTIMATED GFR 2021-04-20 11:45:00 [facility] POC GLUCOSE 2021-04-19 13:28:00 [facility] CV CARDIAC PET STRESS 2021-04-19 13:18:[facility] MYOCARDIAL 2021-04-19 13:18:51 [facility] PERFUSION IMAGING TROPONIN 2021-04-19 09:43:00 Jaclyn Tate Ho spital BASIC METABOLIC PANEL 2021-04-19 09:43:00 [facility] ESTIMATED GFR 2021-04-19 09:43:00 Jacyln Tate spital TTE LIMITED W CONTRAST, W 2021-04-18 17:20:00 [facility] DOPPLER ([id number]) HC COMPLETE BLD COUNT 2021-04-18 14:31:00 [facility] W/AUTO DIFF BASIC METABOLIC PANEL 2021-04-18 14:31:00 [facility] ESTIMATED GFR 2021-04-18 14:31:00 [facility] B NATRIURETIC PEPTIDE 2021-04-18 09:20:00 [facility] HC COMPLETE BLD COUNT 2021-04-16 08:35:00 [facility] W/AUTO DIFF BASIC METABOLIC PANEL 2021-04-16 08:35:00 [facility] ESTIMATED GFR 2021-04-16 08:35:00 [facility] POC GLUCOSE 2021-04-15 15:09:00 [facility] BASIC METABOLIC PANEL 2021-04-14 09:00:00 [facility] ESTIMATED GFR 2021-04-14 09:00:00 [facility] HC COMPLETE BLD COUNT 2021-04-14 08:40:00 [facility] W/AUTO DIFF PARTIAL THROMBOPLASTIN 2021-04-14 08:40:00 [facility] TIME (PTT) PARTIAL THROMBOPLASTIN 2021-04-13 22:47:00 [facility] TIME (PTT) HC COMPLETE BLD COUNT 2021-04-13 15:52:00 [facility] W/AUTO DIFF HC COMPLETE BLD COUNT 2021-04-13 11:34:00 [facility] W/AUTO DIFF SMEAR REVIEW 2021-04-13 11:34:00 [facility] HC COMPLETE BLD COUNT 2021-04-13 09:55:00 [facility] W/AUTO DIFF BASIC METABOLIC PANEL 2021-04-13 09:55:00 [facility] B NATRIURETIC PEPTIDE 2021-04-13 09:55:00 [facility] ESTIMATED GFR 2021-04-13 09:55:00 [facility] PARTIAL THROMBOPLASTIN 2021-04-13 09:55:00 Attar, [facility] TIME (PTT) TROPONIN 2021-04-13 09:00:00 AttRafy biswasJaclynilan [facility] spital PARTIAL THROMBOPLASTIN 2021-04-13 02:20:00 Attzulay [facility] TIME (PTT) TROPONIN 2021-04-12 23:00:00 Char Palomo spital TROPONIN 2021-04-12 15:34:00 Char Palomo spital PROTHROMBIN TIME WITH INR 2021-04-12 15:34:00 Attar, [facility] PARTIAL THROMBOPLASTIN 2021-04-12 15:34:00 Attar, [facility] TIME (PTT) ANTI XA APIXABAN 2021-04-12 15:34:00 AttJaclyn biswas ospital TTE COMPLETE, WO 2021-04-12 14:14:00 Rafy Tateammilan Burns ospital CONTRAST, W DOPPLER ([id number]) TROPONIN 2021-04-12 09:21:00 Char Palomo spital B NATRIURETIC PEPTIDE 2021-04-12 09:21:00 Char Palomo [facility] MAGNESIUM LEVEL 2021-04-12 09:21:00 [facility] 2021-04-12 09:21:00 Char Palomo ospital XR CHEST 1 VW PORTABLE 2021-04-12 08:46:00 [facility] ECG 12-LEAD 2021-04-12 08:03:09 [facility] COVID-19 ANTI-SPIKE IGG 2021-04-12 08:01:00 [facility] ANTIBODY TITER COVID-19 SEROLOGY PATIENT 2021-04-12 08:01:00 [facility] SURVEILLANCE HC COMPLETE BLD COUNT 2021-04-12 08:01:00 [facility] W/AUTO DIFF BASIC METABOLIC PANEL 2021-04-12 08:01:00 [facility] LIPID PANEL 2021-04-12 08:01:00 [facility] THYROID STIMULATING 2021-04-12 08:01:00 [facility] HORMONE T4, FREE 2021-04-12 08:01:00 [facility] ESTIMATED GFR 2021-04-12 08:01:00 [facility] RESPIRATORY PATHOGEN 2021-04-12 07:27:00 [facility] US DUPLEX VENOUS LOWER 2021-03-10 01:23:00 [facility]REM[facility] BILATER[facility] CHEST 1 VW 2021-03-10 00:19:00 [facility] COMPREHENSIVE METABOLIC 2021-03-10 00:17:00 [facility] PANEL CBC WITH PLATELET AND 2021-03-10 00:17:00 [facility] DIFFERENTIAL B NATRIURETIC PEP, I-STAT 2021-03-10 00:17:00 [facility] TROPONIN, I-STAT 2021-03-10 00:17:00 [facility] ESTIMATED GFR 2021-03-10 00:17:00 [facility] MANUAL DIFFERENTIAL 2021-03-10 00:17:00 [facility] ECG ED PRELIMINARY 2021-03-10 00:16:14 [facility] INTERPRETATION ECG 12-LEAD 2021-03-09 23:55:17 [facility] HC COMPLETE BLD COUNT 2021-02-23 09:51:00 [facility] W/AUTO DIFF BASIC METABOLIC PANEL 2021-02-23 09:51:00 [facility] ESTIMATED GFR 2021-02-23 09:51:00 [facility] HC COMPLETE BLD COUNT 2021-02-22 09:32:00 [facility] W/AUTO DIFF BASIC METABOLIC PANEL 2021-02-22 09:32:00 [facility] ESTIMATED GFR 2021-02-22 09:32:00 [facility] HC COMPLETE BLD COUNT 2021-02-21 09:50:00 [facility] W/AUTO DIFF BASIC METABOLIC PANEL 2021-02-21 09:50:00 [facility] LIPID PANEL 2021-02-21 09:50:00 [facility] ESTIMATED GFR 2021-02-21 09:50:00 [facility] COVID-19 ANTI-SPIKE IGG 2021-02-20 23:58:00 [facility] ANTIBODY TITER COVID-19 SEROLOGY PATIENT 2021-02-20 23:58:00 [facility] SURVEILLANCE THYROID STIMULATING 2021-02-20 23:58:00 [facility] HORMONE T4, FREE 2021-02-20 23:58:00 [facility] FERRITIN LEVEL 2021-02-20 23:58:00 [facility] LDH 2021-02-20 23:58:00 [facility] SEDIMENTATION RATE 2021-02-20 23:58:00 [facility] CRP HIGH SENSITIVITY 2021-02-20 23:58:00 [facility] INTERLEUKIN 6 2021-02-20 23:58:00 [facility] PROCALCITONIN 2021-02-20 23:58:00 [facility] D-DIMER 2021-02-20 23:58:00 [facility] PROTHROMBIN TIME WITH INR 2021-02-20 23:58:00 [facility] TROPONIN, I-STAT 2021-02-20 15:35:00 [facility] COVID-19 QUALITATIVE 2021-02-20 14:41:00 [facility] ANGIOGRAM PE CHEST 2021-02-20 13:52:50 [facility] DUPLEX VENOUS LOWER 2021-02-20 12:59:12 Isaac Quiles [facility] EXTREMITY RIGHT Narendra URINALYSIS 2021-02-20 12:35:00 [facility] XR CHEST 1 VW PORTABLE 2021-02-20 12:15:[address] [facility] Narendra BASIC METABOLIC PANEL 2021-02-20 12:10:00 Isaac Quiles [facility] Narendra ESTIMATED GFR 2021-02-20 12:10:00 Isaac Quiles spital Narendra RESPIRATORY PATHOGEN 2021-02-20 12:05:00 Kb [facility] PANEL WITH COVID-19 Narendra RT-PCR COMPREHENSIVE METABOLIC 2021-02-20 [facility] CBC WITH PLATELET AND 2021-02-20 11:55:00 Kb [facility] DIFFERENTIAL Narendra CREATINE KINASE, TOTAL 2021-02-20 11:55[facility] TROPONIN, I-STAT 2021-02-20 11:55:00 Vadim Calix [facility] ESTIMATED GFR 2021-02-20 11:55:00 Isaac Quiles spital Narendra PROTHROMBIN TIME WITH 2021-02-20 11:55:00 Kb [facility] INR, I-STAT Narendra MANUAL DIFFERENTIAL 2021-02-20 11:55:00 Isaac Quiles [facility] Narendra ECG 12-LEAD 2021-02-20 11:33:15 Isaac Quiles spital Narendra ECG ED PRELIMINARY 2021-02-20 11:32:10 Isaac Quiles [facility] INTERPRETATION Narendra PHYSICIAN ORDERS 2021-01-24 05:01:00 Doctor Unassigned, No NPI:[id number] CERVICAL SPINE WO 2021-01-16 05:11:15 Mumtaz Swanson NPI:[id number] HEAD WO CONTRAST 2021-01-16 05:11:15 Mumtaz Swanson NPI:[id number] NOTICE OF PRIVACY 2021-01-16 04:10:39 Doctor Unassigned, No PRACTICES Name CT HEAD WO CONTRAST 2021-01-11 01:54:48 Sushma Juarez NPI:[id number] CONSENT/REFUSAL FOR 2021-01-10 23:21:01 Doctor Unassigned, No 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 I:[id number] DIAGNOSIS AND TREATMENT Name NOTICE OF PRIVACY 2020-12-29 19:06:49 Doctor Unassigned, No PRACTICES Name CONSENT/REFUSAL FOR 2020-12-29 19:06:22 Doctor Unassigned, No 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 I:[id number] DIAGNOSIS AND TREATMENT Name ASSIGNMENT OF BENEFITS 2020-12-29 19:06:04 Doctor Unassigned, No Name ASSIGNMENT OF BENEFITS 2020-12-29 17:51:14 Doctor Unassigned, No Name HC COMPLETE BLD COUNT 2020-12-03 10:00:00 [facility] W/AUTO DIFF BASIC METABOLIC PANEL 2020-12-03 09:00:00 [facility] ESTIMATED GFR 2020-12-03 09:00:00 [facility] MRI BRAIN WO CONTRAST 2020-12-02 17:48:00 [facility] BASIC METABOLIC PANEL 2020-12-02 08:52:00 [facility] ESTIMATED GFR 2020-12-02 08:52:00 [facility] HC COMPLETE BLD COUNT 2020-12-02 08:38:00 [facility] W/AUTO DIFF US CAROTID DUPLEX 2020-12-01 20:45:00 [facility] BILATERAL TTE COMPLETE, WO 2020-12-01 16:39:21 [facility] CONTRAST, W DOPPLER ([id number]) HC COMPLETE BLD COUNT 2020-12-01 09:30:00 [facility] W/AUTO DIFF BASIC METABOLIC PANEL 2020-12-01 09:00:00 [facility] ESTIMATED GFR 2020-12-01 09:00:00 [facility] LIPID PANEL 2020-12-01 02:15:00 [facility] THYROID STIMULATING 2020-12-01 02:15:00 [facility] HORMONE T4, FREE 2020-12-01 02:15:00 [facility] TROPONIN 2020-12-01 02:15:00 [facility] HEMOGLOBIN A1C 2020-12-01 01:15:00 [facility] URINALYSIS, AUTOMATED 2020-11-30 22:23:00 [facility] WITH MICROSCOPY Олег COVID-19 QUALITATIVE 2020-11-30 21:44:00 [facility] RT-PCR [facility] CT HEAD WO CONTRAST 2020-11-30 19:03:[address] [facility] [address] ANGIOGRAM PE CHEST 2020-11-30 19:03:13 [facility] ECG ED PRELIMINARY 2020-11-30 17:08:13 [facility] INTERPRETATION [facility] HC COMPLETE BLD COUNT 2020-11-30 16:15:00 [facility] W/AUTO DIFF [facility] PROTHROMBIN TIME WITH INR 2020-11-30 16:15:00 [facility] PARTIAL THROMBOPLASTIN 2020-11-30 16:15:00 [facility] TIME (PTT) [facility] COMPREHENSIVE METABOLIC 2020-11-30 16:15:00 [facility] PANEL [facility] TROPONIN 2020-11-30 16:15:00 [facility] ospital [facility] B NATRIURETIC PEPTIDE 2020-11-30 16:15:00 [facility] ESTIMATED GFR 2020-11-30 16:15:00 [facility] ospital [facility] D-DIMER 2020-11-30 16:15:00 [facility] ospital [facility] ECG 12-LEAD 2020-11-30 15:58:05 [facility] ospital [facility] Computed tomography of 2020-09-20 00:00:00 NPI:1 [id number] chest with contrast Exploratory laparotomy 2020-09-15 00:00:00 NPI:[id number] of abdomen and pelvis 2020-03-02 00:00:00 NPI :[id number] without contrast EXTERNAL PROVIDER RECORDS 2019-01-27 05:01:00 Doctor Unassigned, No Name Plan of Care Planned Activity Planned Date Details Comments Source Future Scheduled 2021-08-08 65+ [facility]AL [facility] Test 13:10:32 VACCINE (1 of 4 - PCV13) [code = 65+ PNEUMOCOCCAL VACCINE (1 of 4 - PCV13)] Future Scheduled 2021-08-08 SHINGLES VACCINES (#1) M [facility] Test 13:10:32 [code = SHINGLES VACCINES (#1)] Future Scheduled 2021-08-08 COVID-19 VACCINE (3 - Me [facility] Test 13:10:32 Booster for Moderna series) [code = COVID-19 VACCINE (3 - Booster for Moderna series)] Encounters Start End Encounter Admission Attending Care Care Encounter Source Date/Time Date/Time Type Type Clinicians Facility Department ID 2021-04-30 Emergency [facility] [id number] NPI:183 09:16:44 [id number] 4671-11-01 Emergency [facility] [id number] NPI:183 08:16:39 [id number] 3105-03-16 Inpatient [facility] [id number] NPI:140 15:27:00 -[id number] 2021-10-21 2021-10-26 Inpatient S[facility] [id number] [place] 00:00:00 00:00:[address] 2021-09-16 2021-09-16 Emergency EM NATY Guzman [id number] [facility] 04:48:00 10:42:00 [facility] 2021-09-16 2021-09-16 Emergency EM NATY Guzman [id number] [facility] 04:48:00 10:42:00 Justice [facility] 2021-09-05 2021-09-05 Emergency EM NATY Guzman [id number] [facility] 15:16:00 17:36:00 Justice [facility] 2021-09-052021-09-05 Emergency EM Thomas, HCACL HCACL [id number] [facility] 15:16:00 17:36:[address] 2021-07-08 2021-07-13 [facility] Trav AriasChun 1.2.84 0.1 [id number] Methodi 16:46:00 12:51:00 Encounter Vadim Calix 63247.1.[address] 3.430.2.7 Hospit a .3.548308 l .8 2021-07-08 2021-07-08 Travel 1.2.840.1 1.2.041.598 1061 [id number] [facility] 00:00:00 00:00:[address] 3.430.2.7 0.2.7.3.698 Ho spita .3.112698 084.8 l .8 2021-07-01 2021-07-01 Emergency Renee, 1.2.840.1 [id number] [facility] 11:41:00 13:43:[address] 3.430.2.7 Hospit a .3.614043 l .8 2021-06-18 2021-06-18 Outpatient 2030_Biopsy [place] [address] 654-205 [place] 12:38:00 12:38:00 [address] 2021-05-03 2021-05-03 Jared Lopez 1.2.840.1 [id number] 2100 318873 [facility] 00:00:00 00:00:00 Ros Fernandez 56595.1.[address] 3.430.2.7 Hospit a .3.485295 l .8 2021-04-11 2021-04-23 Hospital Anupam, 1.2.840.1 [id number] 894 [id number] [facility] 23:25:00 17:41:00 Encounter Vadim Briscoe 14471.1.[address] 3.430.2.7 Hospit a .3.075703 l .8 2021-04-19 2021-04-19 [facility] 1.2.840.1 [id number] 02987 44591 Methodi 07:00:00 23:59:00 Encounter Jaclyn 69140.1.1 627 [address] 3.430.2.7 Hospit a .3.436961 l .8 2021-03-09 2021-03-09 Emergency Ofelia Celestin 1.2.840.1 [id number] 2 [id number] [facility]i 18:40:00 21:02:[address] 3.430.2.7 Hospit a .3.142393 l .8 2021-03-09 2021-03-09 Travel 1.2.840.1 1.2.673.411 8933 245389 [facility] 00:00:00 00:00:[address] 3.430.2.7 0.2.7.3.698 Ho spita .3.938848 084.8 l .8 2021-02-20 2021-02-23 [facility] 1.2.840.1 104 [id number] [id number] Methodi 06:07:00 13:24:00 Encounter Vaidm Calix 15417.1.[address] 3.430.2.7 Hospit a .3.856266 l .8 2021-02-20 2021-02-20 Travel 1.2.840.1 1.2.568.729 4861 606358 [facility] 00:00:00 00:00:[address] 3.430.2.7 0.2.7.3.698 Ho spita .3.250207 084.8 l .8 2021-01-30 2021-01-30 Outpatient Rebecca DAHL [facility] [id number] NPI:183 14:30:00 14:30:00 KINA 74598 81 2021-01-24 2021-01-24 [employer] Inspector Carolyn, [facility] 1.2.8 40.114 [id number] NPI:183 15:50:12 16:05:12 Visit David Cruz [place] 350.1.13.1 0 [id number] [place] 4.2.7.2.686 [facility] [id number] [address] 2021-01-24 2021-01-24 Outpatient R [facility] [id number] -20 NPI:183 16:00:00 16:00:00 [id number] 644516 1 2021-01-24 2021-01-24 [facility] 75012 47442 NPI:183 16:00:00 16:00:00 DAVID [id number] 1 2021-01-24 2021-01-24 Orders Doctor DAVID 1.2.840.114 [id number] 73 NPI:183 00:00:00 00:00:00 Only Unassigned, GREGORY 350.1.13.10 [id number] [place] [address]686 [id number] 009 2021-01-15 2021-01-16 [facility] 1.2.363.650 8652 8437 NPI:183 23:22:00 03:17:00 Mumtaz Tineo 350.1.13.10 1 761186 [place] 4.2.7.2.686 [place] [id number] 084 2021-01-10 2021-01-10 Emergency Amalia, K [facility] 1.2.840.114 85 848014 NPI:183 18:49:00 22:03:00 May Tineo 350.1.13.10 1 287233 [place] 4.2.7.2.686 [place] [id number] 084 2020-12-29 2020-12-29 [facility] 1.2.840.114 [id number] 847 NPI:183 14:04:19 23:59:00 Encounter Melody Tineo 350.1.13.10 [id number] [place] 4.2.7.2.686 [place] 545.1012017 807 2020-12-29 2020-12-29 [facility] 1.2.840.114 [id number] 846 NPI:183 14:00:00 14:03:00 Encounter Melody Tineo 350.1.13.10 [id number] [place] 4.2.7.2.686 [place] [id number] 807 2020-12-29 2020-12-29 Outpatient VAL, [facility] [id number] -20 NPI:183 14:00:00 14:00:00 MELODY [id number] [id number] 1 2020-12-29 2020-12-29 [facility] 1.2.840.114 [id number] 81 NPI:183 12:52:54 13:35:06 Visit Melody [facility] 350.1.13.10 1 345507 [place] 4.2.7.2.686 Professio [phone] [place] [address] [address] 2020-12-29 2020-12-29 [facility] 1.2.840.114 [id number] 81 12:52:54 13:35:06 Visit Melody [facility] 350.1.13.10 [place] 4.2.7.2.686 Professio [id number] [place] [address] [address] 2020-12-29 2020-12-29 [facility] [id number] 603 NPI:183 13:00:00 13:00:00 MELODY [id number] 1 2020-12-29 2020-12-29 Orders Doctor DAVID 1.2.840.114 [id number] 51 NPI:183 00:00:00 00:00:00 Only Unassigned, GREGORY 350.1.13.10 [id number] [place] [facility] 4.2.7.2.686 [id number] 009 2020-11-30 2020-12-04 [facility] Elliot Parkinson 1.2.840.1 [id number] Methodi 10:51:00 15:23:00 Encounter Vadim Calix 88485.1.[address] 3.430.2.7 Hospit a .3.648035 l .8 2020-11-30 2020-11-30 Travel 1.2.840.1 1.2.002.802 5713 786340 [facility] 00:00:00 00:00:00 46718.1.1 350.1.13.43 738 3.430.2.7 0.2.7.3.698 Ho spita .3.412148 084.8 l .8 2020-09-12 2020-09-28 Discharged 1 YENY, [facility] [id number] NPI:140 19:18:00 13:20:00 Inpatient SOUHEIL Patients 99 799 0088 [facility] 2020-03-02 2020-03-02 Outpatient [facility] [id number] NPI:140 14:00:00 14:00:00 -[id number] 088 2020-03-02 2020-03-02 Registered 3 YENY, [facility] C7215 69772 NPI:140 13:32:00 13:32:00 Clinic JEANNINE Patients 29 47074 88 [facility] 2020-02-24 2020-02-24 Outpatient [facility] [id number] NPI:140 14:00:00 14:00:00 -[id number] 7990 [facility] 2020-02-23 2020-02-23 Outpatient [facility] [id number] 587 NPI:140 12:00:00 12:00:00 -[id number] 7990 8 2019-01-27 2019-01-27 Orders Doctor DAVID 1.2.840.114 [id number] 77 NPI:183 00:00:00 00:00:00 Only Unassigned, GREGORY 350.1.13.10 [id number] [place] [facility] 4.2.7.2.686 [id number] 009 Results Test Description Test Time Test Comments Results Result Comments Source SARS-CoV-2 (COVID-19) RNA [Presence] in Respiratory sp ecimen by 2021-10-25 04:45:54 MARSHA with probe detection Test Item Value Reference Range Interpretation Comme nts SARS-CoV-2 (COVID-19) RNA [Presence] in Respiratory specimen by Not detected MARSHA with probe detection (test code = 56317-1) Whether patient is employed in a healthcare setting (test code = Un known 98425-4) Whether the patient has symptoms related to condition of interest U nknown (test code = 78477-0) Whether the patient was hospitalized for condition of interest Unkn own (test code = 17726-6) Whether the patient was admitted to intensive care unit (ICU) for U nknown condition of interest (test code = 56867-0) Whether patient resides in a congregate care setting (test code = U nknown 33221-1) status (test code = 03718-2) Unknown Date and time of symptom onset (test code = 14175-1) Unknown SARS-CoV-2 (COVID-19) RNA [Presence] in Respiratory specimen by MARSHA with probe [id number] 22:42:52 Test Item Value Reference Range Interpretation Comments SARS-CoV-2 (COVID-19) RNA Not detected [Presence] in Respiratory specimen by MARSHA with probe detection (test code = 86626-3) Whether patient is employed in a Unknown healthcare setting (test code = 43560-3) Whether the patient has symptoms Unknown related to condition of interest (test code = 88437-0) Whether the patient was Unknown hospitalized for condition of interest (test code = 05761-3) Whether the patient was admitted Unknown to intensive care unit (ICU) for condition of interest (test code = 99245-3) Whether patient resides in a Unknown congregate care setting (test code = 29754-8) status (test code = Unknown 91759-8) Date and time of symptom onset Unknown (test code = 23478-0) - CT C-SPINE W/O [id number] 00:00:00 [facility] 1930 Sex: M [facility] 1930 Age/S: 89 / M [address] [place] [address] Unit #: [id number] Loc: [place] [address] Phys: Kezia Tolbert Acct: [id number] Dis Date: Status: PRE ER PHONE #: [phone] Exam Date: 09/16/2021 0538 FAX #: [phone] Reason: FALL OUT OF BED, NECK PAIN EXAMS: CPT CODE: [id number] CT C-SPINE W/O CONT 73735 PROCEDURE INFORMATION: Exam: CT Cervical Spine Without [...] Jorge. RT(R)(CT) CTDI: DLP: Trnscb Date/Time: 09/16/2021 (0601) [email or web address] Orig Print D/T: S: 09/16/2021 (0601) PAGE 1 Signed Report- CT HEAD/BRAIN W/O [id number] 00:00:00 [facility] 1930 Sex: M Name: JUSTICE HARDY [facility] [place] : 1930 Age/S: 89 / M [address] [place] [address] Blvd Unit #: [id number] Loc: [place] [address] Phys: Kezia Tolbert APRNNP Acct: [id number] Dis Date: Status: PRE ER PHONE #: [phone] Exam Date: 09/16/2021 0538 FAX #: [phone] Reason: FALL OUT OF BED, HEAD INJURY EXAMS: CPT CODE: [id number] CT HEAD/BRAIN W/O CONT 10981 PROCEDURE INFORMATION: Exam: CT Head Without Contrast [...] RT(R)(CT) CTDI: DLP: Trnscb Date/Time: 09/16/2021 (604) [email or web address] Orig Print D/T: S: 09/16/2021 (604) PAGE 1 Signed Report- XR CHEST 1 [id number] 00:00:00 [facility] : 1930 Sex: M FAX: Shadi Rosales MD [phone] [place]: St: REG FAX: Kezia Tolbert APR [phone] Name: ANTONYJUSTICE [facility] : 1930 Age/S: 89/M [address] [place] [address] Unit #: [id number] Loc: [place] [address] Phys: Kezia Tolbert Acct: [id number] Dis Date: Status: REG ER PHONE #: [phone] Exam Date: 09/16/2021 06 FAX #: [phone] Reason: FALL OUT OF BED EXAMS: CPT CODE: [id number] XR CHEST 1 V 39515 PROCEDURE INFORMATION: Exam: XR Chest Exam date [...] (627) PAGE 1 Signed Report- XR PELVIS /2 VIEWS 2021-09-16 00:00:00 [facility] : 1930 Sex: M FAX: Shadi Rosales MD [phone] [place]: St: REG FAX: Kezia Tolbert APR [phone] Name: JORGE HARDYGO [facility] : 1930 Age/S: 89/M [address] [place] [address] Unit #: [id number] Loc: [place] [address] Phys: Kezia Tolbert APRNNP Acct: [id number] Dis Date: Status: REG ER PHONE #: [phone] Exam Date: 09/16/2021 0603 FAX #: [phone] Reason: PELVIC PAIN EXAMS: CPT CODE: [id number] XR PELVIS 1/2 VIEWS 63360 PROCEDURE INFORMATION: Exam: XR Pelvis Exam date [...] Signed Report- XR T-SPINE 3V 2021-09-16 00:00:00 [facility] : 1930 Sex: M FAX: Shadi Rosales MD [phone] [place]: St: REG FAX: Kezia Tolbert [facility] [phone] Name: JUSTICE HARDY [facility] [place] : 1930 Age/S: 89/M [address] [place] [address] Unit #: [id number] Loc: [place] [address] Phys: Kezia Tolbert Acct: [id number] Dis Date: Status: REG ER PHONE #: [phone] Exam Date: 09/16/2021603 FAX #: [phone] Reason: BACK PAIN EXAMS: CPT CODE: [id number] XR T-SPINE 3V 90918 PROCEDURE INFORMATION: Exam: XR Thoracic Spine Exam [...] Pritchard MD; Kezia Tolbert Technologist: STEVE Guerrero) Trnscrd Date/Time/By: 09/16/2021 (629) : By: [email or web address] Orig Print D/T: S: 09/16/2021 (629) PAGE 1 Signed Report- XR PELVIS /2 [id number] 00:00:00 [facility] : 1930 Sex: M FAX: Justice Guzman MD [phone] [place]: St: [facility] FAX: Shadi Rosales MD [phone] Name: JUSTICE HARDY [facility] : 1930 Age/S: 89/M [address] [place] [address] Unit #: [id number] Loc: [place] [address] Phys: Justice Guzman MD Acct: [id number] Dis Date: Status: REG ER PHONE #: [phone] Exam Date: 09/05/2021 1714 FAX #: [phone] Reason: fall EXAMS: CPT CODE: [id number] XR PELVIS 1/2 VIEWS 95085 PROCEDURE INFORMATION: Exam: XR Pelvis Exam date [...] Luke(R) Trnscrd Date/Time/By: 09/05/2021 (1721) : By: Shantel Orig Print D/T: S: 09/05/2021 (4862) PAGE 1 Signed Report- CT HEAD/BRAIN W/O [id number] 00:00:00 [facility] : 1930 Sex: M Name: JUSTICE HARDY [facility] [place] : 1930 Age/S: 89 / M [address] [place] [address] Unit #: [id number] Loc: [place] [address] Phys: Tierney Cruz [facility] Acct: [id number] Dis Date: Status: REG ER PHONE #: [phone] Exam Date: 09/05/2021 1604 FAX #: [phone] Reason: FALL FROM CHAIR, HEAD PAIN, ON ELIQUIS EXAMS: CPT CODE: [id number] CT HEAD/BRAIN W/O CONT 35316 PROCEDURE INFORMATION: Exam: CT Head Without Contrast [...] 1 Signed Report (CONTINUED) Name: JUSTICE HARDY [facility] : 1930 Age/S: 89 / M [address] [place] [address] Blvd Unit #: [id number] Loc: [place] [address] Phys: Tierney Cruz Acct: [id number] Dis Date: Status: REG ER PHONE #: [phone] Exam Date: 09/05/2021 1604FAX #: [phone] Reason: FALL FROM CHAIR, HEAD PAIN, ON ELIQUIS EXAMS: CPT CODE: [id number] CT HEAD/BRAIN W/O CONT 86379 <Continued> CC: Tierney Cruz Technologist:RT Mariel(R)(CT) CTDI: DLP: Trnscb Date/Time: 09/05/2021 (1622) [email or web address] Orig Print D/T: S: 09/05/2021 (1623) PAGE 2 Signed ReportUrine [id number] 07:18:43 Test Item Value Reference Range Interpretation Comments Urine culture (test SEE COMMENT Bacteriu adilia screen code = 3973422) negative. 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 Interpretation Abnormal (test code = 24737-6) [facility] [id number] 21:20:43 Test Item Value Reference Range Interpretation Comments Ventricular rate (test code = 253) Atrial rate (test code = 255) [place] interval (test code = 266) QRSD interval [...] for LVH, may be normal variant ( [place] product )-Septal infarct , age undetermined-Abnormal ECG- [facility] stress [id number] 11:08:47 Test Item Value Reference Range Interpretation Comments Resting HR (test code = 2062726330) Resting BP (test code 132&63 = 7434109366) Peak MET Achieved (test code = 0864122251) Protocol Name (test Lexiscan code = 1129588257) Time in Exercise 00:01:00 Phase (test code = 9809678076) Max Systolic BP (test code = 9067104303) Max Diastolic BP (test code = 0367431467) Max Heart Rate (test code = 7165965745) Max Predicted Heart Rate (test code = 7745274095) Target HR Formula (220 - Age)*100% (test code = 2098317200) Test Indication (test Screening for CAD code = 5683601798) Arrhy During Ex (test code = 1931276930) ECG Interp Before EX (test code = 5829172161) ECG Interp During Ex (test code = 2592492197) Ex Summary Comment (test code = 3100111065) Overall HR Response to Exercise (test code = 6103991918) Overall BP Response To Exercise (test code = 4013089043) Reason for Protocol Complete Termination (test code = 3980211409) Stress Test -Waveform interpreted in Impression (test code report associated with = 0722270783) image study. No interpretation is provided as part of this Stress ECG report.-Electronically Signed By David Lea MD ([id number]), website/blog editor Sylvia Henriquez ([id number]) on 04/21/2021 6:08:42 AM [facility] [id number] 01:56:56 No acute intracranial abnormality. CT HEAD [...] and mastoidair cells are clear. Left pseudophakia. [facility], Radiant Results Inft User - 01/10/2021 [...] cells are clear. Left pseudophakia.IMPRESSIONNo acute intracranial abnormality.NPI:[id number] leukocytes automated count (number/volume)2020-09-28 05:25:00 Test Item Value Reference Range Interpretation Comments White Blood Count (test code = 6690-2) 10.37 4.8-10.8 NPI:[id number] erythrocytes automated count (number/volume)2020-09-28 05:25:00 Test Item Value Reference Range Interpretation Comments Red Blood Count (test code = 789-8) 3.00 4.3-5.7 NPI:[id number] hemoglobin measurement (moles/volume)2020-09-28 05:25:00 Test Item Value Reference Range Interpretation Comments Hemoglobin (test code = 84408-8) 9.1 14.0-18.0 NPI:[id number] blood hematocrit (volume fraction)2020-09-28 05:25:00 Test Item Value Reference Range Interpretation Comments Hematocrit (test code = 4544-3) 26.0 38.2-49.6 NPI:[id number] erythrocyte mean corpuscular oaziyw4071-16-06 05:25:00 Test Item Value Reference Range Interpretation Comments Mean Corpuscular Volume (test code = 86.7 81-99 787-2) NPI:[id number] erythrocyte mean corpuscular hemoglobin (mass per erythrocyte)2020-09-28 05:25:00 Test Item Value Reference Range Interpretation Comments Mean Corpuscular Hemoglobin (test code 30.3 28-32 = 785-6) NPI:[id number] erythrocyte mean corpuscular hemoglobin concentration measurement (mass/volume)2020-09-28 05:25:00 Test Item Value Reference Range Interpretation Comments Mean Corpuscular Hemoglobin Concent 35.0 31-35 (test code = 786-4) NPI:[id number] UayDf-Xlr3584-29-01 05:25:00 Test Item Value Reference Range Interpretation Comments Red Cell Distribution Width (test code 16.1 11.7-14.4 = 60269-7) NPI:[id number] blood platelet count (count/volume)2020-09-28 05:25:00 Test Item Value Reference Range Interpretation Comments Platelet Count (test code = 777-3) 253 140-360 NPI:[id number] blood segmented neutrophil count as percentage of total lreczqhuit1000-66-48 05:25:00 Test Item Value Reference Range Interpretation Comments Neutrophils (%) (Auto) (test code = 77.9 38.7-80.0 68782-1) NPI:[id number] blood lymphocyte count as percentage ot total leukocytes 2020-09-28 05:25:00 Test Item Value Reference Range Interpretation Comments Lymphocytes (%) (Auto) (test code = 12.3 18.0-39.1 736-9) NPI:[id number] blood monocyte count as percentage of total leukocytes 2020-09-28 05:25:00 Test Item Value Reference Range Interpretation Comments Monocytes (%) (Auto) (test code = 6.4 4.4-11.3 5905-5) NPI:[id number] blood eosinophil count as percentage of total leukocytes 2020-09-28 05:25:00 Test Item Value Reference Range Interpretation Comments Eosinophils (%) (Auto) (test code = 1.8 0.0-6.0 713-8) NPI:[id number] blood basophil count as percentage of total leukocytes 2020-09-28 05:25:00 Test Item Value Reference Range Interpretation Comments Basophils (%) (Auto) (test code = 0.4 0.0-1.0 706-2) NPI:[id number] procedure less than one hour lfcxptwc2935-75-41 05:25:00 Test Item Value Reference Range Interpretation Comments IM GRANULOCYTES % (test code = IM 1.2 0.0-1.0 GRANULOCYTES %) NPI:[id number] blood neutrophil rvxme6386-29-57 05:25:00 Test Item Value Reference Range Interpretation Comments Neutrophils # (Auto) (test code = 8.1 2.1-6.9 751-8) NPI:[id number] lymphocytes count (number/volume)2020-09-28 05:25:00 Test Item Value Reference Range Interpretation Comments Lymphocytes # (Auto) (test code = 1.3 1.0-3.2 48654-7) NPI:[id number] monocytes automated count (number/volume)2020-09-28 05:25:00 Test Item Value Reference Range Interpretation Comments Monocytes # (Auto) (test code = 742-7) 0.7 0.2-0.8 NPI:[id number] blood eosinophil mqzla8580-68-17 05:25:00 Test Item Value Reference Range Interpretation Comments Eosinophils # (Auto) (test code = 0.2 0.0-0.4 711-2) NPI:[id number] blood basophil count (count/volume)2020-09-28 05:25:00 Test Item Value Reference Range Interpretation Comments Basophils # (Auto) (test code = 704-7) 0.0 0.0-0.1 NPI:[id number] procedure less than one hour qbsghckb5673-34-68 05:25:00 Test Item Value Reference Range Interpretation Comments Absolute Immature Granulocyte (auto 0.12 0-0.1 (test code = Absolute Immature Granulocyte (auto) NPI:[id number] or plasma sodium measurement (moles/volume)2020-09-28 05:25:00 Test Item Value Reference Range Interpretation Comments Sodium Level (test code = 2951-2) 132 136-145 NPI:[id number] or plasma potassium measurement (moles/volume)2020-09-28 05:25:00 Test Item Value Reference Range Interpretation Comments Potassium Level (test code = 2823-3) 3.3 3.5-5.1 NPI:[id number] or plasma chloride measurement (moles/volume)2020-09-28 05:25:00 Test Item Value Reference Range Interpretation Comments Chloride Level (test code = 2075-0) 106 98-107 NPI:[id number] or plasma carbon dioxide, total measurement (moles/volume) 2020-09-28 05:25:00 Test Item Value Reference Range Interpretation Comments Carbon Dioxide Level (test code = -2027-) NPI:[id number] or plasma anion qbr0099-98-06 05:25:00 Test Item Value Reference Range Interpretation Comments Anion Gap (test code = 13395-8) 9.3 8-16 NPI:[id number] or plasma urea nitrogen measurement (mass/volume)2020-09-28 05:25:00 Test Item Value Reference Range Interpretation Comments Blood Urea Nitrogen (test code = 01-22 3094-0) NPI:[id number] or plasma creatinine measurement (mass/volume)2020-09-28 05:25:00 Test Item Value Reference Range Interpretation Comments Creatinine (test code = 2160-0) 0.83 0.72-1.25 NPI:[id number] or plasma urea nitrogen/creatinine mass zovxh2264-23-45 05:25:00 Test Item Value Reference Range Interpretation Comments BUN/Creatinine Ratio (test code = 12-22 3097-3) NPI:[id number] glomerular filtration rate (GFR) dksqxtxbhaydl3364-01-48 05:25:00 Test Item Value Reference Range Interpretation Comments Estimat Glomerular > 60 See_Comment [Automat ed message] The Filtration Rate (test system which generated code = 376667607) this resul t transmitted reference range : 60-. The reference r duane was not used to int erpret this result as normal/abnormal . NPI:[id number] iazjuyqflxe7131-81-36 05:25:00 Test Item Value Reference Range Interpretation Comments Glucose Level (test code = WBX0273) 104 74-118 NPI:[id number] or plasma calcium measurement (mass/volume)2020-09-28 05:25:00 Test Item Value Reference Range Interpretation Comments Calcium Level (test code = 72710-1) 7.4 8.4-10.2 NPI:[id number] or plasma total bilirubin measurement (mass/volume) 2020-09-28 05:25:00 Test Item Value Reference Range Interpretation Comments Total Bilirubin (test code = 1975-2) 0.7 0.2-1.2 NPI:[id number] procedure less than one hour rjunpjnv1853-69-71 05:25:00 Test Item Value Reference Range Interpretation Comments Aspartate Amino Transf (AST/SGOT) (test 74 5-34 code = Aspartate Amino Transf (AST/SGOT)) NPI:[id number] or plasma alanine aminotransferase measurement (enzymatic activity/volume)2020-09-28 05:25:00 Test Item Value Reference Range Interpretation Comments Alanine Aminotransferase (ALT/SGPT) 107 0-55 (test code = 1742-6) NPI:[id number] or plasma protein measurement (mass/volume)2020-09-28 05:25:00 Test Item Value Reference Range Interpretation Comments Total Protein (test code = 2885-2) 4.2 6.5-8.1 NPI:[id number] or plasma albumin measurement (mass/volume)2020-09-28 05:25:00 Test Item Value Reference Range Interpretation Comments Albumin (test code = 1751-7) 1.9 3.5-5.0 NPI:[id number] globulin measurement (mass/volume)2020-09-28 05:25:00 Test Item Value Reference Range Interpretation Comments Globulin (test code = 09509-5) 2.3 2.3-3.5 NPI:[id number] or plasma albumin/globulin mass kufqa4373-18-19 05:25:00 Test Item Value Reference Range Interpretation Comments Albumin/Globulin Ratio (test code = 0.8 0.8-2.0 1759-0) NPI:[id number] or plasma alkaline phosphatase measurement (enzymatic activity/volume)2020-09-28 05:25:00 Test Item Value Reference Range Interpretation Comments Alkaline Phosphatase (test code = 100 40-150 6768-6) NPI:[id number] I measurement by highly sensitive enzyme immunoassay 2020-09-28 05:25:00 Test Item Value Reference Range Interpretation Comments Troponin I (test code = 17673-8) 0.109 0-0.300 NPI:[id number] SINGLE (PORTABLE)2020-09-26 10:41:00 [facility] : 1930 Sex: M [place] [address] Patient Name: JUSTICE HARDY MR #: [id number] : 1930 Age/Sex: 89/M Req #: [id number] Adm Physician: ZACHARIAH SAINI MD Ordered by: ARASH CASTORENA MD Report #: [id number] Location: MED/SURG Room/Bed: [facility] Procedure: [id number] DX/CHEST SINGLE (PORTABLE) Exam Date: 09/26/20 Exam [...] CASTORENA MDABDOMEN 2 VIEW 2020-09-26 09:13:00 [facility] : 1930 Sex: M [facility] [address] [place] [address] Patient Name: JUSTICE HARDY MR #: [id number] : 1930 Age/Sex: 89/M Req #: [id number] Adm Physician: ZACHARIAH SAINI MD Ordered by: JEANNINE SAINI MD Report #: [id number] Location: MED/SURG Room/Bed: [facility] Procedure: [id number] DX/ABDOMEN 2 VIEW Exam Date: 09/26/20 Exam [...] Natriuretic Peptide (test code = 50.2 0-100 90508-9) NPI:[id number] or plasma amylase measurement (enzymatic activity/volume) 2020-09-26 05:17:00 Test Item Value Reference Range Interpretation Comments Amylase Level (test code = 1798-8) 98 25-125 NPI:[id number] or plasma lipase measurement (enzymatic activity/volume) 2020-09-26 05:17:00 Test Item Value Reference Range Interpretation Comments Lipase (test code = 3040-3) 98 8-78 NPI:[id number] 2 AAHB4400-03-99 23:59:00 [facility] : 1930 Sex: M [place] [address] Patient Name: JUSTICE HARDY MR #: [id number] : 1930 Age/Sex: 89/M Req #: [id number] Adm Physician: ZACHARIAH SAINI MD Ordered by: JEANNINE SAINI MD Report #: [id number] Location: MED/SURG Room/Bed: [facility] Procedure: 5965-1198 DX/ABDOMEN 2 VIEW Exam Date: 09/24/20 Exam [...] levels are seen in the right hemiabdomen. Eads lucency in the upper abdomen on the upright view projecting over the T12 vertebral body , likely represents pneumoperitoneum IMPRESSION: 1. Overall appearance of postsurgical ileus with diffuse mildly dilated small bowel and distended air distended colon to the level of the rectum. Distal obstruction is not excluded. Recommend radiographic follow-up until resolution. 2. Eads lucency projecting over the T12 vertebral body may represent pneumoperitoneum as seen on recent chest CT, possibly related to recent surgery. Signed by: Patricia Wheat MD on 09/25/2020 12:48 AM Dictated By: TIESHA WHEAT MD Transcribed By: AYDEN on 09/25/2047 COPY TO: JEANNINE SAINIerum or plasma magnesium measurement (mass/volume)2020-09-23 16:40:00 Test Item Value Reference Range Interpretation Comments Magnesium Level (test code = 38566-1) 1.5 1.3-2.1 NPI:[id number] procedure less than one hour lkhdnjox8412-04-40 08:51:00 Test Item Value Reference Range Interpretation Comments Differential Total Cells Counted (test 100 code = Differential Total Cells Counted) NPI:[id number] blood neutrophils/100 vdbwjmkcav4856-86-21 08:51:00 Test Item Value Reference Range Interpretation Comments Neutrophils % (Manual) (test code = 86 40-74 39872-1) NPI:[id number] blood band neutrophils form/100 fdfjbgezlz1713-00-92 08:51:00 Test Item Value Reference Range Interpretation Comments Band Neutrophils % (test code = 764-1) 0 NPI:[id number] blood lymphocytes/100 twnpcfosvg0643-88-06 08:51:00 Test Item Value Reference Range Interpretation Comments Lymphocytes % (Manual) (test code = 7 19-48 737-7) NPI:[id number] blood monocytes/100 bgkgapegpz9165-43-32 08:51:00 Test Item Value Reference Range Interpretation Comments Monocytes % (Manual) (test code = 7 3.4-9.0 744-3) NPI:[id number] reticulocyte count as percentage of total erythrocytes 2020-09-21 05:15:00 Test Item Value Reference Range Interpretation Comments Percent Reticulocyte Count (test code = 1.5 0.8-2.2 90895-3) NPI:[id number] or plasma iron measurement (mass/volume)2020-09-21 05:15:00 Test Item Value Reference Range Interpretation Comments Iron Level (test code = 2498-4) 26 65-175 NPI:[id number] or plasma iron binding capacity measurement (mass/volume) 2020-09-21 05:15:00 Test Item Value Reference Range Interpretation Comments Total Iron Binding Capacity (test code 193 261-418 = 2500-7) NPI:[id number] or plasma iron saturation measurement (mass fraction) 2020-09-21 05:15:00 Test Item Value Reference Range Interpretation Comments Percent Iron Saturation (test code = 13 15-50 2502-3) NPI:[id number] or plasma transferrin measurement (mass/volume)2020-09-21 05:15:00 Test Item Value Reference Range Interpretation Comments Transferrin (test code = 3034-6) 138 174364 NPI:[id number] cobalamin (vitamin B12) measurement (mass/volume)2020-09-21 05:15:00 Test Item Value Reference Range Interpretation Comments Vitamin B12 Level (test code = 27846-9) 410 296-552 NPI:[id number] or plasma folate measurement (mass/volume)2020-09-21 05:15:00 Test Item Value Reference Range Interpretation Comments Folate (test code = 2284-8) 17.8 >3.0 NPI:[id number] CHEST S1813-03-52 21:42:00 [facility] : 1930 Sex: M [place] [address] Patient Name: JUSTICE HARDY MR #: [id number] : 1930 Age/Sex: 89/M Req #: [id number] Adm Physician: ZACHARIAH SAINI MD Ordered by: AJ FLYNN DO Report #: [id number] Location: MED/SURG Room/Bed: [facility] Procedure: [id number] CT/CT CHEST W Exam Date: 09/20/20 Exam Time: 2114 REPORT STATUS: Signed EXAM: CT Chest WITH contrast 09/20/2020 9:15 PM INDICATION: PE [id number] COMPARISON: None TECHNIQUE: Chest was scanned [...] 09/20/202199 COPY TO: AJ FLYNN DO Phosphorus wmfbnitzfrf4023-15-81 03:45:00 Test Item Value Reference Range Interpretation Comments Phosphorus Level (test code = JNO2687) 0.8 2.3-4.7 NPI:[id number] SINGLE (PORTABLE)2020-09-17 15:26:00 [facility] : 1930 Sex: [place] [address] Patient Name: JUSTICE HARDY MR #: [id number] : 1930 Age/Sex: 89/M Req #: [id number] [facility] Physician: ZACHARIAH SAINI MD Ordered by: ZACHARIAH SAINI MD Report #: [id number] Location: ICU Room/Bed: ICU [facility] Procedure: [id number] DX/CHEST SINGLE (PORTABLE) Exam Date: 09/17/20 Exam [...] 4:11 PM Dictated By: JON CRUM MD 161 Transcribed By: AYDEN on 09/17/20 161 COPY TO: ZACHARIAH SAINI MD Prothrombin time (PT) in platelet poor plasma by coagulation mqbcb5705-68-32 10:55:00 Test Item Value Reference Range Interpretation Comments Prothrombin Time (test code = 5902-2) 16.5 11.9-14.5 NPI:[id number] in Platelet poor plasma by Coagulation lfeov9931-12-12 10:55:00 Test Item Value Reference Range Interpretation Comments Prothromb Time International Ratio 1.25 (test code = 6301-6) NPI:[id number] XRAY LINE XTZXZROMJ5047-40-03 20:57:00 [facility] : 1930 Sex: M [facility] [address] [place] [address] Patient Name: JUSTICE HARDY MR #: [id number] : 1930 Age/Sex: 89/M Req #: [id number] Adm Physician: ZACHARIAH SAINI MD Ordered by: ZACHARIAH SAINI MD Report #: [id number] Location: ICU Room/Bed: [place] [address] Procedure: [id number] DX/CHEST XRAY LINE PLACEMENT Exam Date: 09/16/20 Exam Time: 1954 REPORT STATUS: Signed EXAMINATION: CHEST XRAY LINE PLACEMENT INDICATION: NG TUBE PLACEMENT VERIFICATION [id number] COMPARISON: CXR 09/15/2020 FINDINGS: TUBES and LINES: Enteric tube tip below left hemidiaphragm, likely within gastric lumen, sidehole port at junciton. Right IJ CVC, tip in right [...] likely within gastric lumen, sidehole port at [facility]. Infrahilar haziness, atelectasis or pneumonia/aspiration. Signed by: Eugenio Ye DO on 09/16/2020 9:02 PM Dictated By: EUGENIO YE DO 01 Transcribed By: AYDEN on 09/16/202101 COPY TO: ZACHARIAH SAINI [facility] SINGLE (PORTABLE)2020-09-15 14:55:00 [facility] : 1930 Sex: [place] [address] Patient Name: JUSTICE HARDY MR #: [id number] : 1930 Age/Sex: 89/M Req #: [id number] [facility] Physician: ZACHARIAH SAINI MD Ordered by: DHARMESH LINARES MD Report #: [id number] Lo cation: MED/SURG Room/Bed: 107 Procedure: [id number] DX/CHEST SINGLE (PORTABLE) Exam Date: 09/15/20 Exam [...] AYDEN on 09/15/201456 COPY TO: DHARMESH LINARES MDALANE ACUTE SERIES W/PA CXR 2020-09-15 10:17:00 [facility] : 1930 Sex: M [facility] [address] [place] [address] Patient Name: JUSTICE HARDY MR #: [id number] : 1930 Age/Sex: 89/M Req #: [id number] Adm Physician: ZACHARIAH SAINI MD Ordered by: DHARMESH LINARES MD Report #: [id number] Lo cation: MED/SURG Room/Bed: [facility] Procedure: [id number] DX/ABDOMEN ACUTE SERIES W/PA CXR Exam Date: [...] TO: DHARMESH LINARES MDABDOMEN ACUTE SERIES W/PA RIY1365-68-88 10:50:00 [facility]: JUSTICE HARDY : 1930 Sex: M [place] [id number] [place] [address] Patient Name: JUSTICE HARDY MR #: [id number] : 1930 Age/Sex: 89/M Req #: [id number] [facility] Physician: ZACHARIAH SAINI MD Ordered by: DHARMESH LINARES MD Report #: [id number] Lo cation: MED/SURG Room/Bed: [facility] Procedure: [id number] DX/ABDOMEN ACUTE SERIES W/PA CXR Exam Date: 09/14/20 Exam Time: 1020 REPORT STATUS: Signed X-ray abdomen acute series with 2 views of the abdomen and a single view of the chest INDICATION: sbo [id number] Comparison: X-ray dated 09/14/2019. Discussion: Lungs [...] 10:52 AM Dictated By: OSMIN EDMONDS MD 51 Transcribed By: AYDNE on 09/14/20 105 COPY TO: DHARMESH LINARES MDSerum or plasma creatine kinase measurement (enzymatic activity/volume)2020-09-13 11:24:00 Test Item Value Reference Range Interpretation Comments Creatine Kinase (test code = 2157-6) 385 30-200 NPI:[id number] or plasma creatine kinase MB measurement (mass/volume) 2020-09-13 11:24:00 Test Item Value Reference Range Interpretation Comments Creatine Kinase MB (test code = 2.90 0-5.0 69466-9) NPI:[id number] 2 SAMI7194-44-95 09:26:00 [facility] CENTERName: JUSTICE HARDY : 1930 Sex: M [place] [address] Patient Name: JUSTICE HARDY MR #: [id number] : 1930 Age/Sex: 89/M Req #: [id number] Adm Physician: ZACHARIAH SAINI MD Ordered by: SHANNAN CERVANTES MD Report #: [id number] Location: MED/SURG Room/Bed: [facility] Procedure: [id number] DX/ABDOMEN 2 VIEW Exam Date: 09/13/20 Exam [...] code = Lactic 0.7 0.5-2.0 Acid Level) NPI:[id number] procedure less than one hour jrrxwsak2334-00-62 19:02:00 Test Item Value Reference Range Interpretation Comments Coronavirus (PCR) (test code = NOT DETECTED NOTDETECTED Coronavirus (PCR)) NPI:[id number] ABD/PEL WO RBXCSLVV-EXWD6770-06-16 17:30:00 [facility] : 1930 Sex: M [facility] [address] [place] [address] Patient Name: JUSTICE HARDY MR #: [id number] : 1930 Age/Sex: 89/M Req #: [id number] Adm Physician: Ordered by: SHANNAN CERVANTES MD Report #: [id number] Location: [facility] Room/Bed: Procedure: [id number] HOPD/CT ABD/PEL WO CONTRAST-HOPD Exam Date: 09/12/20 Exam Time: 1657 REPORT STATUS: Signed EXAM: CT Abdomen and Pelvis WITHOUT contrast INDICATION: abd pain, nausea, retching [id number] COMPARISON: CT abdomen and pelvis on [...] 09/12/201744 COPY TO: SHANNAN CERVANTES MDCT ABDOMEN/PELVIS UV8911-55-27 15:20:00 [place] [address] Patient Name: JUSTICE HARDY MR #: [id number] : 1930 Age/Sex: 89/M Req #: [id number] [facility] Physician: Mario boyd by: JEANNINE SAINI MD Report #: [id number] Location: CT Room/Bed: Procedure: [id number] CT/CT ABDOMEN/PELVISWO Exam Date: 03/02/20 Exam Time: [...] MIRELES MD 1528 Transcribed By: AYDEN on 03/02/201527 COPY TO: JEANNINE SAINI MD
[2021-11-02 12:12] LABS: Hematocrit 29.1 % (39.6-49.0); Lymphocytes % 7.1 % (15.3-44.8); MPV 8.3 fL (7.6-11.3); RBC Red Blood Cell Count 3.48 M/uL (4.33-5.43)
[2021-11-02 12:13] LABS: Protime INR 1.31
--- NOTE | 2021-11-02 12:23 | RAD REPORT ---
EXAM DESCRIPTION: RAD - Chest Single View - 11/02/2021 12:16 pm CLINICAL HISTORY: AMS COMPARISON: Chest Single View dated 10/30/2021; Chest Single View dated 09/30/2021; Chest Single View da nikki 08/28/2021; Chest Single View dated 06/28/2021 FINDINGS: Lines: None. Lungs: No evidence of edema or pneumonia. Right mid lung opacity was present on the radiograph from 0 09/30/2021. This is favored chronic. Pleural: No significant pleural effusions or pneumothorax. Cardiac: Cardiomegaly Bones: No acute fractures. Sternotomy. Other: IMPRESSION: No acute cardiopulmonary disease.
[2021-11-02 12:26] LABS: ALT/SGPT 18 U/L (12-78); AST/SGOT 13 U/L (15-37); Albumin 2.7 g/dL (3.4-5.0); Alkaline Phosphatase 60 U/L (45-117); BUN Blood Urea Nitrogen 19 mg/dL (7-18); Bicarbonate 23 mmol/L (21-32); Bilirubin Total 0.3 mg/dL (0.2-1.0); Glucose Level 114 mg/dL (74-106); NT PRO-BNP 3468 pg/mL (<450); Potassium 4.5 mmol/L (3.5-5.1); Protein, Total 5.6 g/dL (6.4-8.2); Sodium Level 133 mmol/L (136-145); Troponin High Sensitivity 27.4 pg/mL (<58.9)
[2021-11-02 12:27] LABS: Bilirubin Direct < 0.1 mg/dL (0-0.2)
--- NOTE | 2021-11-02 12:32 | RAD REPORT ---
EXAM DESCRIPTION: CT - Head Brain Wo Cont - 11/02/2021 12:21 pm CLINICAL HISTORY: Alteration of awareness/confusion COMPARISON: October 30, 2021 TECHNIQUE: Computed axial tomography of the head was obtained. IV contrast was not requested. All CT scans are performed using dose optimization technique as appropriate and may include automated exposure control or mA/KV adjustment according to patient size. FINDINGS: An intracranial bleed is not seen . The ventricles are normal in caliber. No extra-axial fluid collection is noted. Basal ganglia calcifications unchanged Fluid within the sinuses/ mastoids is not seen. IMPRESSION: No acute intracranial abnormality is seen. If patient's symptoms persist MRI of the bra in would be recommended.
[2021-11-02 13:01] LABS: Blood Morphology Comment NOT SEEN (NOT SEEN); Platelet Estimate ADEQ; White Blood Cell Scan OK (OK)
[2021-11-02 13:41] LABS: Urine Blood Negative (Negative); Urine Glucose Negative (Negative); Urine Protein Negative (Negative); Urine Specific Gravity 1.015 (1.005-1.030); Urine pH 7.5 (5.0-7.0)
[2021-11-02 14:04] LABS: Urine Amorphous Sediment 2+ /HPF (NONE SEEN); Urine Bacteria 20-50 /HPF (NONE SEEN); Urine RBC <5 /HPF (NONE SEEN)
--- NOTE | 2021-11-02 14:27 | EDPHYS ---
Physician Documentation [facility] Name: Benito Castaneda Age: 89 yrs Sex: Male : 1930 Arrival Date: 11/02/2021 Time: 11:34 Bed 4 Private MD: ED Physician Mariah Castle HPI: 11/02 11:40 This 89 yrs old Male presents to ER via EMS with complaints of low Blood pm1 pressure. 11:40 The patient presents to the emergency department with weakness of the entire body, pm1 generalized weakness. Onset: The symptoms/episode began/occurred today, after taking his blood pressure medications this AM. Patient with blood pressure 160's prior to morning medications. Home health nurse reports blood pressure dropped to 70s systolic after his medications in the morning. Negative for chest pain, shortness of breath, headache. Patient's only complaint is generalized weakness that has improved after given a bolus of IV fluids by EMS prior to arrival of 250 mL. Patient was seen here 3 days ago for generalized weakness ongoing for 5 days. Was diagnosed after work-up that included a CT, cardiac work-up, MRI brain with possible polypharmacy. Patient was also seen for similar complaints 2 weeks ago. Context: occurred at home. Associated signs and symptoms: Pertinent negatives: fever, headache, nausea, vomiting, diarrhea. Severity of symptoms: in the emergency department the symptoms have improved Pain is currently a 0 / 10. Patient's baseline: Neuro: orientated to person, place, Motor: no deficits, Speech: normal. Current symptoms: generalized weakness. The patient has experienced similar episodes in the past, multiple times, in the past 3 weeks. The patient has been recently seen at the [facility] Emergency Department, for similar complaints labs were performed, X-rays were performed, CT scan was performed, MRI was performed, diagnosed with polypharmacy. 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 - Social history:: Smoking status: Patient denies any tobacco usage or history of. ROS: 11:40 Constitutional: Negative for fever, chills, and weight loss, Cardiovascular: Negative pm1 for chest pain, palpitations, and edema, Respiratory: Negative for shortness of breath, cough, wheezing, and pleuritic chest pain, Abdomen/GI: Negative for abdominal pain, nausea, vomiting, diarrhea, and constipation, Back: Negative for injury and pain, MS/Extremity: Negative for injury and deformity, Skin: Negative for injury, rash, and discoloration. 11:40 : Positive for difficulty urinating, difficulty with pulling his foreskin back. 11:40 Neuro: Positive for Generalized weakness. 11:40 All other systems are negative. Exam: 11:40 Constitutional: This is a well developed, well nourished patient who is awake, alert, pm1 and in no acute distress. Head/Face: Normocephalic, atraumatic. 11:40 Skin: Warm, dry with normal turgor. Normal color with no rashes, no lesions, and no evidence of cellulitis. MS/ Extremity: Pulses equal, no cyanosis. Neurovascular intact. Full, normal range of motion. 11:40 Eyes: Exam is negative for acute changes, Conjunctiva: no acute changes, no injection, Corneas: no acute changes. 11:40 ENT: Exam is negative for acute changes, Mouth: no acute changes, Lips: normal, moist, Oral mucosa: normal, pink and intact, moist. 11:40 Cardiovascular: Exam negative for acute changes, Rate: normal, Rhythm: regular, Pulses: no pulse deficits are appreciated, Heart sounds: normal, normal S1and S2. 11:40 Respiratory: Exam negative for acute changes, respiratory distress, shortness of breath, Breath sounds: are clear throughout. 11:40 Abdomen/GI: Inspection: abdomen appears normal, Palpation: abdomen is soft and non-tender, in all quadrants. 11:40 Neuro: Exam negative for acute changes, Orientation: to person, place, Mentation: is normal, Motor: moves all fours, Sensation: is normal, no obvious gross deficits. Vital Signs: 11:35 BP 122 / 57; Pulse 62; Resp 15; Temp 97.6(O); Pulse Ox 99% on R/A; Pain 0/10; ss 12:44 BP 125 / 53; Pulse 51; Resp 15 S; Pulse Ox 99% on R/A; jd3 14:03 BP 136 / 78; Pulse 55; Resp 16 S; Pulse Ox 99% on R/A; jd3 14:58 BP 131 / 61; Pulse 60; Resp 18 S; Pulse Ox 98% on R/A; jd3 16:00 BP 98 / 87; Pulse 91; Resp 18 S; Pulse Ox 98% on R/A; Pain 0/10; jd3 17:06 BP 143 / 58; Pulse 68; Resp 16 S; Pulse Ox 98% on R/A; jd3 MDM: 11:35 Patient medically screened. pm1 13:59 Data reviewed: vital signs. Data interpreted: Pulse oximetry: on room air is 99 %. pm1 Interpretation: normal. 14:09 Counseling: I had a detailed discussion with the patient and/or guardian regarding: the pm1 historical points, exam findings, and any diagnostic results supporting the discharge/admit diagnosis, lab results, radiology results, the need for further work-up and treatment in the hospital. 14:48 Physician consultation: Yandel Fletcher was called at 14:48, was contacted at 14:48, pm1 regarding admission, patient's condition, and will see patient. 11/02 11:40 Order name: Basic Metabolic Panel; Complete Time: 12:33 pm1 11/02 11:40 Order name: CBC with Diff; Complete Time: 13:09 pm1 11/02 11:40 Order name: LFT's; Complete Time: 12:33 pm1 11/02 11:40 Order name: Magnesium; Complete Time: 12:33 pm1 11/02 11:40 Order name: NT PRO-BNP; Complete Time: 12:33 pm1 11/02 11:40 Order name: PT-INR; Complete Time: 12:17 pm1 11/02 11:40 Order name: Troponin HS; Complete Time: 12:33 pm1 11/02 12:21 Order name: CBC Smear Scan; Complete Time: 13:09 EDMS 11/02 13:10 Order name: Urine Microscopic Only; Complete Time: 14:06 pm1 11/02 13:35 Order name: COVID-19/FLU A+B (Document "Date of Onset" if Symptomatic); Complete Time: pm1 15:23 11/02 13:35 Order name: Strep; Complete Time: 14:37 pm1 11/02 13:41 Order name: Urine Dipstick-Ancillary; Complete Time: 13:43 EDMS 11/02 13:43 Order name: Blood Culture Adult (2) pm1 11/02 14:07 Order name: Urine Culture EDMS 11/02 11:40 Order name: CT Head Brain wo Cont; Complete Time: 12:33 pm1 11/02 11:40 Order name: XRAY Chest (1 view); Complete Time: 12:33 pm1 11/02 11:40 Order name: EKG; Complete Time: 11:41 pm1 11/02 11:40 Order name: Cardiac monitoring; Complete Time: 11:59 pm1 11/02 11:40 Order name: EKG - Nurse/Tech; Complete Time: 11:59 pm1 11/02 11:40 Order name: IV Saline Lock; Complete Time: 11:59 pm1 11/02 11:40 Order name: Labs collected and sent; Complete Time: 11:59 pm1 11/02 11:40 Order name: O2 Per Protocol; Complete Time: 11:59 pm1 11/02 11:40 Order name: O2 Sat Monitoring; Complete Time: 11:59 pm1 11/02 11:40 Order name: Urine Dipstick-Ancillary (obtain specimen); Complete Time: 13:58 pm1 11/02 14:30 Order name: Throat Culture EDMS Administered Medications: 14:46 Drug: Rocephin (cefTRIAXone) 1 grams Route: IV; Rate: calculated rate; Site: left jd3 antecubital; 15:40 Follow up: Response: No adverse reaction; IV Status: Completed infusion jd3 Disposition Summary: 11/02/21 14:26 Hospitalization Ordered Hospitalization Status: Observation pm1 Provider: Yandel Fletcher pm1 Location: Telemetry/MedSurg (observation) pm1 Condition: Stable pm1 Problem: new pm1 Symptoms: have improved pm1 Bed/Room Type: Standard pm1 Room Assignment: 229(11/02/21 17:49) 1 Diagnosis - UTI/ Urinary tract infection, site not specified pm1 - Polypharmacy pm1 - Hypotension, unspecified pm1 Forms: - Medication Reconciliation Form pm1 - SBAR form pm1 Signatures: Dispatcher [employer] Shania Payne RN RN dw Toshia Serrato RN RN ss Jun Frank, SAEID CAMPAIGN ADVISOR pm1 Kenney Andrade RN RN jJanine Cain kj1 Corrections: (The following items were deleted from the chart) 17:18 14:26 pm1 dw 17:36 17:18 228 dw jedgardo 17:49 17:36 229 jedgardo kj1
--- NOTE | 2021-11-02 14:27 | ER ---
Nurse's Notes [facility] Name: Benito Castaneda Age: 89 yrs Sex: Male : 1930 Arrival Date: 11/02/2021 Time: 11:34 Bed 4 Private MD: Diagnosis: UTI/ Urinary tract infection, site not specified;Polypharmacy;Hypotension, unspecified Presentation: 11/02 11:37 Chief complaint: EMS states: Low blood pressure after taking morning medications. ss Initial BP prior to receiving am meds was 166 systolic. Shortly after taking morning meds, patient reports feeling tired and BP 70's Systolic. After EMS administered approximately 250 mL of NS, Pts BP is now 111 systolic. Pt's only complaint at this time is feeling tired. Coronavirus screen: Client denies travel out of the [place] in the last 14 days. Ebola Screen: Patient denies exposure to infectious person. Patient denies travel to an Ebola-affected area in the 21 days before illness onset. Initial Sepsis Screen: Does the patient meet any 2 criteria? No. Patient's initial sepsis screen is negative. Does the patient have a suspected source of infection? No. Patient's initial sepsis screen is negative. Risk Assessment: Do you want to hurt yourself or someone else? Patient reports no desire to harm self or others. Onset of symptoms was November 02, 2021. 11:37 Method Of Arrival: EMS: [facility] ss 11:37 Acuity: ANT 3 ss Historical: - Allergies: 11:35 Benadryl; ss 11:35 Cardura; ss 11:35 doxazosin; ss 11:35 Iodine; (fine with benadryl); ss 11:35 Lipitor; ss 11:35 SULFUR, ELEMENTAL; ss - PMHx: 11:35 aortic valve replacement; Hypertension; dvt in right leg; Diverticulitis; Myocardial ss infarction; Prostate Cancer; CVA; cardiac stents; - PSHx: 11:35 Appendectomy; bowel resection; Cholecystectomy; Coronary Angioplasty; Coronary artery ss bypass graft; Tonsillectomy; Valve replacement; - Immunization history:: Client reports receiving the 2nd dose of the Covid vaccine. - Social history:: Smoking status: Patient denies any tobacco usage or history of. Screenin:01 Abuse screen: Denies threats or abuse. Nutritional screening: No deficits noted. jd3 Tuberculosis screening: No symptoms or risk factors identified. Fall Risk Ambulatory Aid- None/Bed Rest/Nurse Assist (0 pts). Gait- Normal/Bed Rest/Wheelchair (0 pts) Mental Status- Oriented to own ability (0 pts). Total Brady Fall Scale indicates No Risk (0-24 pts). Assessment: 12:00 General: Appears in no apparent distress. comfortable, Behavior is calm, cooperative, jd3 appropriate for age. Pain: Denies pain. Neuro: Shipman Agitation-Sedation Scale (RASS): -1 Drowsy Level of Consciousness is awake, obeys commands, Oriented to person, place. Cardiovascular: Denies chest pain, Capillary refill < 3 seconds Patient's skin is warm and dry. Rhythm is sinus bradycardia. Respiratory: Airway is patent Respiratory effort is even, unlabored, Respiratory pattern is regular, symmetrical, Denies cough, shortness of breath. GI: No signs and/or symptoms were reported involving the gastrointestinal system. : No signs and/or symptoms were reported regarding the genitourinary system. EENT: No signs and/or symptoms were reported regarding the EENT system. Derm: Skin is intact, Skin is dry, Skin is normal, Skin temperature is warm. Musculoskeletal: Circulation, motion, and sensation intact. Range of motion: intact in all extremities. 12:44 Reassessment: Patient appears in no apparent distress at this time. No changes from jd3 previously documented assessment. Patient and/or family updated on plan of care and expected duration. Pain level reassessed. 14:03 Reassessment: Patient appears in no apparent distress at this time. No changes from jd3 previously documented assessment. Patient and/or family updated on plan of care and expected duration. Pain level reassessed. 14:57 Reassessment: Patient appears in no apparent distress at this time. No changes from jd3 previously documented assessment. Patient and/or family updated on plan of care and expected duration. Pain level reassessed. 16:00 Reassessment: Patient appears in no apparent distress at this time. No changes from jd3 previously documented assessment. Patient and/or family updated on plan of care and expected duration. Pain level reassessed. awaiting admission. 17:06 Reassessment: Patient appears in no apparent distress at this time. No changes from jd3 previously documented assessment. Patient and/or family updated on plan of care and expected duration. Pain level reassessed. awaiting admission. Vital Signs: 11:35 BP 122 / 57; Pulse 62; Resp 15; Temp 97.6(O); Pulse Ox 99% on R/A; Pain 0/10; ss 12:44 BP 125 / 53; Pulse 51; Resp 15 S; Pulse Ox 99% on R/A; jd3 14:03 BP 136 / 78; Pulse 55; Resp 16 S; Pulse Ox 99% on R/A; jd3 14:58 BP 131 / 61; Pulse 60; Resp 18 S; Pulse Ox 98% on R/A; jd3 16:00 BP 98 / 87; Pulse 91; Resp 18 S; Pulse Ox 98% on R/A; Pain 0/10; jd3 17:06 BP 143 / 58; Pulse 68; Resp 16 S; Pulse Ox 98% on R/A; jd3 ED Course: 11:34 Patient arrived in ED. ss 11:35 Jun Frank NP is PHCP. pm1 11:35 Mariah Castle MD is Attending Physician. pm1 11:35 Arm band placed on left wrist. ss 11:36 Kenney Andrade RN is Primary Nurse. jd3 11:41 Triage completed. ss 12:00 Initial lab(s) drawn, by me, sent to lab. EKG done, by ED staff, reviewed by Jun Frank NP. Maintain EMS IV. Dressing intact. Good blood return noted. Site clean \T\ dry. Gauge \T\ site: 20 G left AC. 12:01 Patient has correct armband on for positive identification. Placed in gown. Bed in low jd3 position. Call light in reach. Side rails up X2. Adult w/ patient. Client placed on continuous cardiac and pulse oximetry monitoring. NIBP monitoring applied. 12:18 XRAY Chest (1 view) In Process Unspecified. EDMS 12:23 CT Head Brain wo Cont In Process Unspecified. EDMS 14:24 Yandel Fletcher is Hospitalizing Provider. pm1 17:55 No provider procedures requiring assistance completed. Patient admitted, IV remains in jd3 place. Administered Medications: 14:46 Drug: Rocephin (cefTRIAXone) 1 grams Route: IV; Rate: calculated rate; Site: left jd3 antecubital; 15:40 Follow up: Response: No adverse reaction; IV Status: Completed infusion jd3 Outcome: 14:26 Decision to Hospitalize by Provider. pm1 17:55 Admitted to Med/surg accompanied by tech, via stretcher, room 229, with chart, Report jd3 called to Vinicio CORDOBA 17:55 Condition: stable 17:55 Instructed on the need for admit. 18:20 Patient left the ED. jd3 Signatures: Dispatcher [facility] Toshia Dobson RN RN ss Jun Frank, SAEID CLOTHES SHAKER pm1 Kenney Andrade RN RN jd3 Corrections: (The following items were deleted from the chart) 14:03 12:00 Neuro: Shipman Agitation-Sedation Scale (RASS): -1 Drowsy Level of Consciousness jd3 is awake, obeys commands, Oriented to person, place, time, situation, jd3 14:03 12:44 Reassessment: Patient appears in no apparent distress at this time. Patient jd3 and/or family updated on plan of care and expected duration. Pain level reassessed. Patient is alert, oriented x 3, equal unlabored respirations, skin warm/dry/pink. jd3
[2021-11-02 14:48] LABS: SARS-COV-2 RT PCR NEGATIVE (NEGATIVE)
[2021-11-02] MEDS ORDERED: CEFTRIAXONE 1000 MG/VIAL ONE (14:48)
[2021-11-02] MEDS ORDERED: NA CHLORIDE 0.9% 100 ML IV ONE (14:48)
--- NOTE | 2021-11-02 17:00 | P.HP ---
Certification for Inpatient Patient admitted to: Inpatient With expected LOS: >2 Midnights Practitioner: I am a practitioner with admitting privileges, knowledge of patient current condition, hospital course, and medical plan of care. Services: Services provided to patient in accordance with Admission requirements found in Title 42 Section 412.3 of the Code of Federal Regulations Patient History Date of Service: 11/02/21 Reason for admission: Low blood pressure History of Present Illness: 89-year-old gentleman with a history of coronary to disease status post CABG, hypertension, history of DVT status post IVC filter presented to the emergency department due to low blood pressure. According to report, patient took his blood pressure medications for systolic blood pressure of 166 and shortly afterwards blood pressure dropped to the 70s. EMS was called who gave him 250 mill normal saline bolus and brought him to the emergency department. Work-up in the emergency department demonstrated UTI. WBC count mildly elevated. Patient normotensive in the ED, afebrile. He does not meet criteria for sepsis. He was awake and alert during my examination in the ED. Patient admitted for further management. Allergies doxazosin [From Cardura] Allergy (Severe, Verified 11/06/18 17:42) Hives tositumomab iodine-131 Allergy (Mild, Verified 10/02/21 07:15) Hives/Rash diphenhydramine [From Benadryl] Allergy (Unknown, Verified 10/02/21 07:14) Nausea/Vomiting atorvastatin [From Lipitor] Allergy (Verified 10/02/21 07:14) Hives/Rash Home Medications: Albuterol Sulfate [Proair Digihaler] 2 puff PO Q4HP PRN 10/01/21 Apixaban [Eliquis] 2.5 mg PO DAILY 10/01/21 Aspirin 81 mg PO DAILY 10/01/21 Docusate Sodium 100 mg PO DAILYPRN PRN 10/01/21 Famotidine 20 mg PO BID 10/01/21 Finasteride 5 mg PO DAILY 10/01/21 Fluticasone/Vilanterol [Breo Ellipta 100-25 Mcg INH] 1 each IH DAILY 10/01/21 Lisinopril [Zestril] 10 mg PO DAILY 10/01/21 Risperidone [Risperdal] 1 mg PO DAILY 10/01/21 Risperidone [Risperdal] 2 mg PO BEDTIME 10/01/21 Tamsulosin HCl 0.4 mg PO DAILY 10/01/21 Trazodone HCl 100 mg PO BEDTIME 10/01/21 Amlodipine [Norvasc*] 10 mg PO DAILY #30 tab 10/02/21 Apixaban [Eliquis *] 2.5 mg PO BID #60 tablet 10/02/21 Cefdinir [Omnicef] 300 mg PO BID #14 capsule 10/02/21 Docusate/Senna [Senokot-S*] 2 tab PO BEDTIME PRN PRN #60 tab 10/02/21 Ensure Enlive 237 ml PO BID #60 can 10/02/21 Eszopiclone [Lunesta*] 3 mg PO BEDTIME #30 tab 10/02/21 Furosemide [Lasix] 40 mg PO BIDL #60 tab 10/02/21 Pantoprazole [Protonix Tab*] 40 mg PO DAILY AT SUPPER #30 tab 10/02/21 carvediloL [Coreg*] 3.125 mg PO BID 6AM 6PM #60 tab 10/02/21 - Past Medical/Surgical History Diabetic: No -: CAD/CABG -: History of prostate cancer -: Chronic diastolic congestive heart failure -: History of DVT with IVC filter -: GERD -: HTN -: chronic lori DVTs -: COPD -: BPH -: Dementia -: aortic valve replacement November 2017 -: CABG 2010 -: IVC filter in place -: Appendectomy -: Cholecystectomy Psychosocial/ Personal History: Patient is currently resident at [facility] - Family History Father -: Heart disease - Social History Alcohol use: No CD- Drugs: No Caffeine use: Yes Review of Systems Other: Patient endorsed dysuria and urinary frequency. He denied any abdominal pain or nausea vomiting or diarrhea. Except as documented, all other systems reviewed and negative. Physical Examination - Physical Exam General: Alert, In no apparent distress, Oriented x3 HEENT: Atraumatic, Mucous membr. moist/pink, Sclerae nonicteric Neck: Supple, JVD not distended, No Thyromegaly Respiratory: Clear to auscultation bilaterally, Normal air movement Cardiovascular: No edema, Regular rate/rhythm, Normal S1 S2, Systolic murmur Capillary refill: <2 Seconds Gastrointestinal: Normal bowel sounds, Soft and benign, Non-distended, No tenderness Musculoskeletal: No swelling, No tenderness Integumentary: No rashes, No erythema, No cyanosis Neurological: Normal speech, Normal strength at 5/5 x4 extr, Cranial nerves 3-12 intact Lymphatics: No axilla or inguinal lymphadenopathy - Studies Laboratory Data (last 24 hrs) 11/02/21 11:57: PT 14.5 H, INR 1.31 11/02/21 11:57: WBC 13.8 H D, Hgb 9.5 L, Hct 29.1 L, Plt Count 194 11/02/21 11:57: Sodium 133 L, Potassium 4.5, BUN 19 H, Creatinine 1.12, Glucose 114 H, Magnesium 2.0, Total Bilirubin 0.3, AST 13 L, ALT 18, Alkaline Phosphatase 60 Microbiology Data (last 24 hrs): 11/02/21 13:35 Throat Group A Streptococcus Rapid Screen - Final Assessment and Plan - Problems (Diagnosis) (1) Drug-induced hypotension Current Visit: Yes Status: Acute (2) UTI (urinary tract infection) Current Visit: Yes Status: Acute (3) Chronic diastolic heart failure Current Visit: Yes Status: Acute - Plan Hypotension resolved with IV fluid. Hold BP meds until systolic blood pressures greater than 140 and reintroduce done in a stepwise fashion. Start IV antibiotics for UTI. Follow urine culture. Continue home medications for BPH. Reconcile and continue other home medications. Monitor CBC to follow leukocytosis. - Advance Directives Does patient have a Living Will: Yes Does patient have a Durable POA for Healthcare: Yes
[2021-11-02] MEDS ORDERED: NA CHLORIDE 0.9% 1,000 ML IV SCH (18:39)
[2021-11-02] MEDS ORDERED: ONDANSETRON 4 MG/2 ML VIAL IV PRN (18:39)
[2021-11-02] MEDS ORDERED: ACETAMINOPHEN 500 MG TAB PO PRN (18:39)
[2021-11-02 20:24] VITALS: BMI 23.0
[2021-11-03] MEDS ORDERED: TRAZODONE 50 MG TABLET PO SCH (00:40)
[2021-11-03 05:52] LABS: Absolute Lymphocytes (CBC) 1.1 K/uL (0.7-4.9); Hematocrit 25.9 % (39.6-49.0); Lymphocytes % 15.3 % (15.3-44.8); MPV 8.3 fL (7.6-11.3); RBC Red Blood Cell Count 3.12 M/uL (4.33-5.43)
[2021-11-03 06:16] LABS: Magnesium 2.2 mg/dL (1.8-2.4); Phosphorus 4.2 mg/dL (2.5-4.9); Potassium 4.2 mmol/L (3.5-5.1); Thyroid Stimulating Hormone 2.7 uIU/mL (0.360-3.740)
[2021-11-03] MEDS ORDERED: CEFTRIAXONE 1,000 MG in NA CHLORIDE 0.9% 50 ML IVPB SCH (09:00)
--- NOTE | 2021-11-03 09:24 | EKG ---
Test Date: 2021-11-02 Test Time: 11:42:36 Purse Seining Hand: ISAK MEASUREMENT RESULTS: Intervals: Rate: 54 CO: 178 QRSD: 96 QT: 452 QTc: 428 [place]: P: 40 CO: 178 QRS: -36 T: 84 INTERPRETIVE STATEMENTS: Sinus bradycardia Left axis deviation Abnormal ECG Compared to ECG 10/30/2021 15:42:49 Left-axis deviation now present Sinus rhythm no longer present Myocardial infarct finding no longer present Electronically Signed On 11-03-21 09:22:35 CDT by Reji Ramon
--- NOTE | 2021-11-03 11:01 | P.DS ---
Admission Date: 11/02/21 Discharge Date: 11/03/21 Disposition: DC HOME/HOME HEALTH CARE Discharge Condition: FAIR Reason for Admission: Low blood pressure - Problems (1) Drug-induced hypotension Current Visit: Yes Status: Acute (2) UTI (urinary tract infection) Current Visit: Yes Status: Acute (3) Chronic diastolic heart failure Current Visit: Yes Status: Acute Brief History of Present Illness: 89-year-old gentleman with a history of coronary to disease status post CABG, hypertension, history of DVT status post IVC filter presented to the emergency department due to low blood pressure. According to report, patient took his blood pressure medications for systolic blood pressure of 166 and shortly afterwards blood pressure dropped to the 70s. EMS was called who gave him 250 mill normal saline bolus and brought him to the emergency department. Work-up in the emergency department demonstrated UTI. WBC count mildly elevated. Patient normotensive in the ED, afebrile. He does not meet criteria for sepsis. He was awake and alert during my examination in the ED. Patient hospitalized for further management. Hospital Course: Patient hydrated with IV fluid. Renal function was stable. Her BP meds were held during the hospital stay. He remained alert and oriented and appropriate. This ED visit was second episode for altered mental status and low blood pressure. Patient's blood pressure medications scaled down to oral Coreg. UA suggested UTI. Urine culture yielded mixed growth. Patient received a couple of doses of IV Rocephin. Patient discharged with oral cefpodoxime to continue treatment for UTI. He had no problem with voiding. Noted history of frontotemporal dementia. Patient was started on multiple psychotropic medications including Risperdal, Prozac and Depakote. Family is concerned the recent addition of Prozac and Depakote respiratory has made patient lethargic, sometimes drooling. Patient now complaining of difficulty moving his legs. He was recently started on benztropine. Prozac and Depakote has been discontinued. According to the family psychiatry is also weaning the respiratory. He will continue trazodone at bedtime for sleep. Another option in the near future is to replace the Risperdal and trazodone with Seroquel at bedtime. Patient will follow with his PCP and psychiatry regarding medication adjustment. He has social support and other support systems at home. He is currently wheelchair chair dependent and he is receiving physical therapy and Occupational Therapy at home. Home health resumed on discharge. Vital Signs/Physical Exam: Temp Pulse Resp BP Pulse Ox 99.0 F 73 18 166/72 H 97 11/03/21 08:00 11/03/21 08:00 11/03/21 08:00 11/03/21 08:00 11/03/21 08:00 General: Alert, In no apparent distress, Oriented x3 HEENT: Mucous membr. moist/pink Neck: Supple, JVD not distended Respiratory: Clear to auscultation bilaterally, Normal air movement Cardiovascular: No edema, Regular rate/rhythm, Normal S1 S2 Gastrointestinal: Soft and benign, Non-distended Musculoskeletal: No swelling, No tenderness Integumentary: No rashes, No cyanosis Neurological: Normal speech, Normal strength at 5/5 x4 extr Laboratory Data at Discharge: WBC 7.0 K/uL (4.3-10.9) D 11/03/21 05:22 Hgb 8.6 g/dL (13.6-17.9) L 11/03/21 05:22 Hct 25.9 % (39.6-49.0) L 11/03/21 05:22 Plt Count 184 K/uL (152-406) 11/03/21 05:22 PT 14.5 SECONDS (9.5-12.5) H 11/02/21 11:57 INR 1.31 11/02/21 11:57 Sodium 135 mmol/L (136-145) L 11/03/21 05:22 Potassium 4.2 mmol/L (3.5-5.1) 11/03/21 05:22 BUN 24 mg/dL (7-18) H 11/03/21 05:22 Creatinine 1.13 mg/dL (0.55-1.3) 11/03/21 05:22 Glucose 117 mg/dL (74-106) H 11/03/21 05:22 Phosphorus 4.2 mg/dL (2.5-4.9) 11/03/21 05:22 Magnesium 2.2 mg/dL (1.8-2.4) 11/03/21 05:22 Total Bilirubin 0.3 mg/dL (0.2-1.0) 11/02/21 11:57 AST 13 U/L (15-37) L 11/02/21 11:57 ALT 18 U/L (12-78) 11/02/21 11:57 Alkaline Phosphatase 60 U/L (45-117) 11/02/21 11:57 Home Medications: Albuterol Sulfate [Albuterol Sulfate Hfa] 2 puff IH Q4H PRN 11/03/21 Apixaban [Eliquis *] 2.5 mg PO DAILY 11/03/21 Aspirin [Aspirin EC] 81 mg PO DAILY 11/03/21 Benztropine Mesylate 0.5 mg PO BEDTIME #30 tablet 11/03/21 Carvedilol [Coreg] 3.125 mg PO BID 11/03/21 Cefpodoxime Proxetil 100 mg PO BID #8 tablet 11/03/21 Docusate Sodium 100 mg PO DAILY PRN 11/03/21 Dutasteride [Avodart*] 0.5 mg PO DAILY 11/03/21 Famotidine 20 mg PO BID 11/03/21 Fluticasone/Vilanterol [Breo Ellipta 100-25 Mcg INH] 1 puff IH DAILY 11/03/21 Furosemide [Lasix*] 40 mg PO BID 11/03/21 Loratadine 10 mg PO DAILY 11/03/21 Polyethylene Glycol 3350 [Miralax] 17 gm PO DAILY 11/03/21 Risperidone [Risperdal] 0.5 mg PO 0900 11/03/21 Risperidone [Risperdal] 1 mg PO 2100 11/03/21 Tamsulosin [Flomax*] 0.4 mg PO DAILY 11/03/21 Tramadol HCl [Ultram] 50 mg PO BID PRN 11/03/21 Trazodone [Desyrel*] 100 mg PO DAILY 11/03/21 New Medications: Benztropine Mesylate 0.5 mg PO BEDTIME #30 tablet Cefpodoxime Proxetil 100 mg PO BID #8 tablet Followup: NONE,NONE [Primary Care Provider] -
[2021-11-03 11:24] VITALS: O2SAT 97
[2021-11-03 12:32] VITALS: BP 139/72; TEMP 98.2
== END 2021-11-03 12:50 | disposition home or self-care (01) ==
LOC: ER 11:29 → ERHOLD 17:19 → 2ND 17:55
PROVIDERS: ADMIT Internal Medicine; ATTEND Internal Medicine
DX: I95.2 Hypotension due to drugs (principal); T50.905A Adverse effect of unspecified drugs, medicaments and biological substances, initial encounter; N39.0 Urinary tract infection, site not specified; I11.0 Hypertensive heart disease with heart failure; I50.32 Chronic diastolic (congestive) heart failure; G31.09 Other frontotemporal neurocognitive disorder; F02.80 Dementia in other diseases classified elsewhere, unspecified severity, without behavioral disturbance, psychotic disturbance, mood disturbance, and anxiety; J44.9 Chronic obstructive pulmonary disease, unspecified; I25.10 Atherosclerotic heart disease of native coronary artery without angina pectoris; I25.2 Old myocardial infarction; N40.0 Benign prostatic hyperplasia without lower urinary tract symptoms; K21.9 Gastro-esophageal reflux disease without esophagitis; Z99.3 Dependence on wheelchair; Z95.2 Presence of prosthetic heart valve; Z95.1 Presence of aortocoronary bypass graft; Z95.5 Presence of coronary angioplasty implant and graft; Z86.718 Personal history of other venous thrombosis and embolism; Z85.46 Personal history of malignant neoplasm of prostate; Z79.01 Long term (current) use of anticoagulants; Z79.82 Long term (current) use of aspirin; Z79.899 Other long term (current) drug therapy; Z88.8 Allergy status to other drugs, medicaments and biological substances; Z90.49 Acquired absence of other specified parts of digestive tract; Z20.822 Contact with and (suspected) exposure to COVID-19; Z82.49 Family history of ischemic heart disease and other diseases of the circulatory system
CPT/HCPCS: 96365; 93005; 87040 ×2; 87070; 87088; 85025 ×2; 87086; 80048 ×2; 36415; 83735 ×2; 84100; 85610; 80076; 87081; 84443; 87077; 87186; 84484; 83880; 0240U; 70450; 71045; 99285; J7030; G0378 ×3; 81003; 81015

== ENCOUNTER 2021-11-16 11:36 | Inpatient (IN) | payer OTHER, BC ==
--- OUTSIDE RECORDS SUMMARY | 2021-11-16 11:44 | XMS REPORT | Continuity of Care Document ---
:[address] [facility] t Address [address] [place] [address] Care Team Providers Name Role Phone Jaclyn Tate MD Primary Care Physician SITA BECKFORD Attending Clinician Unavailable MD ARIELLA BATISTA Attending Clinician Unavailable Justice Guzman Attending Clinician Unavailable Hugo GARCIA, Trav Fernandez. Attending Clinician [phone] Anupam GARCIA, O. Attending Clinician Renee GARCIA [...] Expiration Date S jeanette BCBS FED SELECT [id number] 2015 00:00:00 MEDICARE PART A [id number] 1996 \T\ B 00:00:00 [employer] [id number] [address] [facility] Medicare A & B [id number] [address] [facility] [address] [facility] 00:00:00 Patient [facility] Problems Condition Condition Condition Status [...] disease 00:00: Hospita involving involving 00 l [place] coronary coronary artery artery SOB SOB Disease [...] Added automatic ally from request for surgery [id number] Small Problem Active [facility] bowel [facility] obstructio Patien [facility] Nausea Problem Active [facility] Hypomagnes Problem Active [facility] S t emia [facility] Leukocytos Problem Active [facility] S t is [facility] Hypertensi Problem Active [facility] on [facility] History of Problem Active [facility] t arterioscl [facility] erotic Patient cardiovasc Medica l [facility] disease Abdominal Problem Active [facility] pain [facility] No known No known Disease Unive rs active active ity of problems problems [facility] [place] Allergies, Adverse Reactions, Alerts Allergy Allergy Status Severity Reaction(s) Onset Inactive Treating Comm ents Source Name Type Date Date Clinician iodine DA Active U UNKNOWN [facility] 3 Clear 00:00: Garcia 00 [facility] diphenhy DA Active U UNKNOWN [facility] dramine 09-05 Clear 00:00: Garcia 00 [facility] atorvast DA Active U UNKNOWN [facility] atin 09-05 Clear 00:00: Garcia 00 [facility] Diphenhy Propensi Active Itching Pt states Me [...] Atorvast Propensi Active Other (See [facility] to Comments) 11-30 reaction, st adverse 00:00: patient Hospita reaction 00 daughter l s to confirmed drug allergy with patients cardiolog ist. Iodine Allergy Active [facility] Doxazosi Allergy Active 2018-[address] [facility] [facility] CARDURA DA Active U FAINTING; 2001- [facility] LOW B/P 6- Clear 00:00: Garcia 00 [facility] No Known DA Active U [facility] Contrast 12-09 Clear Allergie 00:00: Garcia s [facility] No Known DA Active U 2001- [facility] Food 12-09 Clear Allergie 00:00: Garcia s 00 [facility] No Known DA Active U 2001-0 [facility] Other 12-09 Clear Allergie 00:00: Garcia s [facility] NO KNOWN Drug Active Univers ALLERGIE Class ity of S [facility] [place] doxazosi DA Active [facility] Patient [facility] iodine DA Active [facility] Family History Family Member Diagnosis Comments Start Date Stop Date Source Natural brother [facility] Natural father Heart disease [facility] Natural father Hypertension [facility] Natural mother Alzheimer's disease [facility] Natural sister Other [facility] Social History Social Habit Start Date Stop Date Quantity Comments Source Exposure to Not sure [facility] SARS-CoV-2 (event) [facility] [place] History of tobacco Smoker Method [facility] use Hospital History SDOR [facility] Frequency Hospita l History SDOH [facility] Std Drinks Hospit al History SDOH [facility] Alcohol intake 2021-01-10 2021-01-10 Current University of 00:00:00 00:00:00 non-drinker of [facility] alcohol (finding) Branch Tobacco use and 2021-01-10 2021-01-10 Never used Universit y of exposure 00:00:00 00:00:00 [facility] [place] Alcohol Comment 2017-12-10 2017-12-10 ocassional [facility] 00:00:00 00:00:00 Hospital Cigarettes smoked 2017-08-07 2017-08-[address] current (pack per 00:00:00 00:00:00 Hospita l day) - Reported Cigarette 2017-08-07 2017-08-07 [facility] pack-years 00:00:00 00:00:00 Hospital Sex Assigned At [birth year] Universit [facility] of 00:00:00 00:00:00 [facility] [place] Smoking Status Start Date Stop Date Source Never smoker [facility] Ex-smoker 2017-08-07 00:00:00 2017-08-07 00:00:00 [facility] Medications Ordered Filled Start Stop Current Ordering Indication Dosage Frequency Signature Comments Components Source Medication Medication Date Date Medication? Clinician (SIG) Name Name ergocalcife 2021- No [id number] Q7D Take 1 M ethodi rol 07-16 [...] .74 -5.86 dose. gram solution lisinopriL 2020-06 40mg QD Take 40 mg Methodi (PRINIVIL) [...] to 30 days. isosorbide 2020-06 No 20mg [id number] Take 1 [facility] dinitrate 0-25 11-25 [id number] tablet (20 st (ISORDIL) 00:00: 05:59 3D [...] up to 3 days. ergocalcife 2020- No [id number] Q7D Take 1 M ethodi rol 02-27 [...] 500mg QD Take 2 Me thodi n 02-23- tablets st (Zithromax) 00:00: 04:59 (500 mg [...] 824 08-[address] 0.1 MG 08:05: [...] (CATAPRES) 01-16-20 Oral, ity of tablet 0.1 05:45: 04:45 ONCE, 1 Flash as mg 00 :00 dose, [facility] 01/16/21 at Branch 0045, STAT amLODIPine Yes 10mg Take 10 mg U nivers 10 mg 7-02 by mouth ity of tablet 18:08: daily. [address] Branch aspirin 325 0 Yes 325mg Take 325 U nivers mg tablet 7-02 mg by ity of 18:08: mouth [place] 23 daily. Medical Branch valsartan-h Yes 1{tbl} Take 1 Un alma ydrochlorot 7-02 tablet by ity of hiazide 18:08: mouth [place] 160-12.5 mg 23 daily. Medica l per tablet Branch eszopiclone Yes 3mg Take 3 mg U nivers 3 mg tablet 7-02 by mouth ity of 18:08: at [place] [address] bedtime. Medical Branch cloNIDine 0 Yes .1mg Take 0.1 Univ ers 0.1 mg 7-02 mg by ity of tablet 18:08: mouth 3 [place] 23 (three) Medical times Branch daily. apixaban Yes 2.5mg Take 2.5 Univ ers (ELIQUIS) 7-02 mg by ity of 2.5 mg 18:08: mouth 2 [place] [facility] 23 (two) Medical times Branch daily. omeprazole Yes 40mg Take 40 mg U nivers 40 mg 7-02 by mouth ity of capsule 18:08: daily. [address] Branch lisinopriL 0 Yes 5mg Take 5 mg Un alma 5 mg tablet 7-02 by mouth ity of 18:08: daily. [address] Branch finasteride Yes 5mg Take 5 mg U nivers 5 mg tablet 7-02 by mouth ity of 18:08: daily. [address] Branch amLODIPine Yes 10mg Take 10 mg U nivers 10 mg 7-02 by mouth ity of tablet 18:08: daily. [address] Branch aspirin 325 0 Yes 325mg Take 325 U nivers mg tablet 7-02 mg by ity of 18:08: mouth [place] 23 daily. Medical Branch valsartan-h Yes 1{tbl} Take 1 Un alma ydrochlorot 7-02 tablet by ity of hiazide 18:08: mouth [place] 160-12.5 mg 23 daily. Medica l per tablet Branch eszopiclone Yes 3mg Take 3 mg U nivers 3 mg tablet 7-02 by mouth ity of 18:08: at [place] 23 bedtime. Medical Branch cloNIDine Yes .1mg Take 0.1 Univ ers 0.1 mg 7-02 mg by ity of tablet 18:08: mouth 3 [place] 23 (three) Medical times Branch daily. apixaban Yes 2.5mg Take 2.5 Univ ers (ELIQUIS) 7-02 mg by ity of 2.5 mg 18:08: mouth 2 [facility] 23 (two) Medical times Branch daily. omeprazole Yes 40mg Take 40 mg U nivers 40 mg 7-02 by mouth ity of capsule 18:08: daily. [address] Branch lisinopriL Yes 5mg Take 5 mg Un alma 5 mg tablet 7-02 by mouth ity of 18:08: daily. [place] [address] Medical Branch finasteride Yes 5mg Take 5 mg U nivers 5 mg tablet 7-02 by mouth ity of 18:08: daily. [place] [address] Medical Branch amLODIPine Yes 10mg Take 10 mg U nivers 10 mg 7-02 by mouth ity of tablet 18:08: daily. [place] [address] Medical Branch aspirin 325 Yes 325mg Take [...] 7-02 by mouth ity of 18:08: at [place] 23 bedtime. Medical Branch cloNIDine Yes .1mg Take 0.1 Univ ers 0.1 mg 7-02 mg by ity of tablet 18:08: mouth 3 [place] 23 (three) Medical times Branch daily. apixaban Yes 2.5mg Take 2.5 Univ ers (ELIQUIS) 7-02 mg by ity of 2.5 mg 18:08: mouth 2 [place] tablet 23 (two) Medical times Branch daily. omeprazole Yes 40mg Take 40 mg U nivers 40 mg 7-02 by mouth ity of capsule 18:08: daily. [place] [address] Medical Branch lisinopriL 0 Yes 5mg Take 5 mg Un alma 5 mg tablet 7-02 by mouth ity of 18:08: daily. [place] [address] Medical Branch finasteride 0 Yes 5mg Take 5 mg U nivers 5 mg tablet 7-02 by mouth ity of 18:08: daily. [place] [address] Medical Branch amLODIPine Yes 10mg Take 10 mg U nivers 10 mg 7-02 by mouth ity of tablet 18:08: daily. [place] [address] Medical Branch aspirin 325 0 Yes 325mg Take 325 U nivers mg tablet 7-02 mg by ity of 18:08: mouth [place] 23 daily. Medical Branch valsartan-h Yes 1{tbl} Take 1 Un alma ydrochlorot 7-02 tablet by ity of hiazide 18:08: mouth [place] 160-12.5 mg 23 daily. Medica l per tablet Branch eszopiclone Yes 3mg Take 3 mg U nivers 3 mg tablet 7-02 by mouth ity of 18:08: at [place] [address] bedtime. Medical Branch cloNIDine Yes .1mg Take 0.1 Univ ers 0.1 mg 7-02 mg by ity of tablet 18:08: mouth 3 [place] 23 (three) Medical times Branch daily. apixaban Yes 2.5mg Take 2.5 Univ ers (ELIQUIS) 7-02 mg by ity of 2.5 mg 18:08: mouth 2 [place] tablet 23 (two) Medical times Branch daily. omeprazole Yes 40mg Take 40 mg U nivers 40 mg 7-02 by mouth ity of capsule 18:08: daily. [place] [address] Medical Branch lisinopriL 0 Yes 5mg Take 5 mg Un alma 5 mg tablet 7-02 by mouth ity of 18:08: daily. [place] [address] Medical Branch finasteride 2021-0 Yes 5mg Take 5 mg U nivers 5 mg tablet 7-02 by mouth ity of 18:08: daily. [place] [address] Medical Branch amLODIPine Yes 10mg Take 10 mg U nivers 10 mg 7-02 by mouth ity of tablet 18:08: daily. [place] [address] Medical Branch aspirin 325 0 Yes 325mg [...] 7-02 by mouth ity of 18:08: at [place] [address] bedtime. Medical Branch cloNIDine Yes .1mg Take 0.1 Univ ers 0.1 mg 7-02 mg by ity of tablet 18:08: mouth 3 [place] 23 (three) Medical times Branch daily. apixaban Yes 2.5mg Take 2.5 Univ ers (ELIQUIS) 7-02 mg by ity of 2.5 mg 18:08: mouth 2 [place] [facility] 23 (two) Medical times Branch daily. omeprazole Yes 40mg Take 40 mg U nivers 40 mg 7-02 by mouth ity of capsule 18:08: daily. [place] [address] Medical Branch lisinopriL Yes 5mg Take 5 mg Un alma 5 mg tablet 7-02 by mouth ity of 18:08: daily. [place] [address] Medical Branch finasteride Yes 5mg Take 5 mg U nivers 5 mg tablet 7-02 by mouth ity of 18:08: daily. [place] [address] Medical Branch amLODIPine Yes 10mg Take 10 mg U nivers 10 mg 7-02 by mouth ity of tablet 18:08: daily. [place] [address] Medical Branch aspirin 325 Yes 325mg Take 325 U nivers mg tablet 7-02 mg by ity of 18:08: mouth [place] 23 daily. Medical Branch valsartan-h Yes 1{tbl} Take 1 Un alma ydrochlorot 7-02 tablet by ity of hiazide 18:08: mouth [place] 160-12.5 mg 23 daily. Medica l per tablet Branch eszopiclone Yes 3mg Take 3 mg U nivers 3 mg tablet 7-02 by mouth ity of 18:08: at [place] 23 bedtime. Medical Branch cloNIDine Yes .1mg Take 0.1 Univ ers 0.1 mg 7-02 mg by ity of tablet 18:08: mouth 3 [place] 23 (three) Medical times Branch daily. apixaban Yes 2.5mg Take 2.5 Univ ers (ELIQUIS) 7-02 mg by ity of 2.5 mg 18:08: mouth 2 [facility] 23 (two) Medical times Branch daily. omeprazole Yes 40mg Take 40 mg U nivers 40 mg 7-02 by mouth ity of capsule 18:08: daily. [address] Branch lisinopriL Yes 5mg Take 5 mg Un alma 5 mg tablet 7-02 by mouth ity of 18:08: daily. [place] [address] Medical Branch finasteride Yes 5mg Take 5 mg U nivers 5 mg tablet 7-02 by mouth ity of 18:08: daily. [place] [address] Medical Branch amLODIPine Yes 10mg Take 10 mg U nivers 10 mg 7-02 by mouth ity of tablet 18:08: daily. [place] [address] Medical Branch aspirin 325 Yes 325mg Take [...] 7-02 by mouth ity of 18:08: at [place] 23 bedtime. Medical Branch cloNIDine Yes .1mg Take 0.1 Univ ers 0.1 mg 7-02 mg by ity of tablet 18:08: mouth 3 [place] 23 (three) Medical times Branch daily. apixaban Yes 2.5mg Take 2.5 Univ ers (ELIQUIS) 7-02 mg by ity of 2.5 mg 18:08: mouth 2 [place] tablet 23 (two) Medical times Branch daily. omeprazole Yes 40mg Take 40 mg U nivers 40 mg 7-02 by mouth ity of capsule 18:08: daily. [place] [address] Medical Branch lisinopriL 0 Yes 5mg Take 5 mg Un alma 5 mg tablet 7-02 by mouth ity of 18:08: daily. [place] [address] Medical Branch finasteride 0 Yes 5mg Take 5 mg U nivers 5 mg tablet 7-02 by mouth ity of 18:08: daily. [place] [address] Medical Branch amLODIPine Yes 10mg Take 10 mg U nivers 10 mg 7-02 by mouth ity of tablet 18:08: daily. [place] [address] Medical Branch aspirin 325 0 Yes 325mg Take 325 U nivers mg tablet 7-02 mg by ity of 18:08: mouth [place] 23 daily. Medical Branch valsartan-h Yes 1{tbl} Take 1 Un alma ydrochlorot 7-02 tablet by ity of hiazide 18:08: mouth [place] 160-12.5 mg 23 daily. Medica l per tablet Branch eszopiclone Yes 3mg Take 3 mg U nivers 3 mg tablet 7-02 by mouth ity of 18:08: at [place] [address] bedtime. Medical Branch cloNIDine Yes .1mg Take 0.1 Univ ers 0.1 mg 7-02 mg by ity of tablet 18:08: mouth 3 [place] 23 (three) Medical times Branch daily. apixaban Yes 2.5mg Take 2.5 Univ ers (ELIQUIS) 7-02 mg by ity of 2.5 mg 18:08: mouth 2 [place] tablet 23 (two) Medical times Branch daily. omeprazole Yes 40mg Take 40 mg U nivers 40 mg 7-02 by mouth ity of capsule 18:08: daily. [place] [address] Medical Branch lisinopriL 0 Yes 5mg Take 5 mg Un alma 5 mg tablet 7-02 by mouth ity of 18:08: daily. [place] [address] Medical Branch finasteride 2021-0 Yes 5mg Take 5 mg U nivers 5 mg tablet 12-29 by mouth ity of 18:08: daily. [address] Dutasteride Yes Take by Un alma -Tamsulosin 12-29 mouth. ity of 0.5-0.4 mg 18:08: [address] Dutasteride Yes Take by Un alma -Tamsulosin 12-29 mouth. ity of 0.5-0.4 mg 18:08: [address] Dutasteride Yes Take by Un alma -Tamsulosin 12-29 mouth. ity of 0.5-0.4 mg 18:08: [address] Dutasteride Yes Take by Un alma -Tamsulosin 12-29 mouth. ity of 0.5-0.4 mg 18:08: [address] Dutasteride Yes Take by Un alma -Tamsulosin 12-29 mouth. ity of 0.5-0.4 mg 18:08: [address] Dutasteride Yes Take by Un alma -Tamsulosin 12-29 mouth. ity of 0.5-0.4 mg 18:08: [address] Dutasteride Yes Take by Un alma -Tamsulosin 12-29 mouth. ity of 0.5-0.4 mg 18:08: [address] Dutasteride Yes Take by Un alma -Tamsulosin 12-29 mouth. ity of 0.5-0.4 mg 18:08: [address] tamsulosin 2020- No .4mg QD Take [...] daily for 4 days. traMADoL 2020- [place] [id number] 50mg Q6H Take 50 mg M ethodi [...] by mouth ity of tablet 18:24: daily. [place] [address] Medical Branch aspirin 325 Yes 325mg Take [...] by mouth ity of tablet 18:24: daily. [place] [address] Medical Branch aspirin 325 Yes 325mg Take [...] 7-19 by mouth ity of 18:24: at [place] [address] bedtime. Medical Branch Amlodipine Amlodipine Yes [address] Besylate Bes[facility] Aspirin Aspirin Yes Daily [facility] (Aspir 81) (Aspir 81) Tal es 81 Mg 81 Mg Patient TABLET. TABLET. Medic al Center Hydrochloro Hydrochloro Yes 12.[address] thiazide thiazide [facility] (Hydrochlor (Hydrochlor P atient othiazide*) othiazide*) M edical 25 Mg 25 Mg Center TABLET TABLET Tamsulosin Tamsulosin Yes .[address] Hcl Hcl [facility] (Flomax*) (Flomax*) Patie nt 0.4 Mg CAP 0.4 Mg CAP Med ical Center Immunizations Ordered Immunization Filled Immunization Date Status Commen ts Source Name Name FLUZONE HIGH-DOSE PF 2021-04-23 Completed Meth nicole 00:00:00 Hospital Vital Signs Vital Name Observation Time Observation Value Comments Source Systolic blood 2021-01-16 07:00:00 187 mm[Hg] Univer sity of pressure [facility] [place] Diastolic blood 2021-01-16 07:00:00 90 mm[Hg] Unive rsity of pressure [facility] [place] Heart rate 2021-01-16 07:00:00 76 /min [facility] Respiratory rate 2021-01-16 07:00:00 20 /[facility] in 2021-01-16 07:00:00 97 /min [facility] Arterial blood by [facility] Pulse oximetry Branch Body temperature 2021-01-16 04:24:00 37.06 Ayana [facility] [place] [facility] Body weight 2021-01-16 04:24:00 58.968 kg [facility] [place] [facility] BMI 2021-01-16 04:24:00 22.31 kg/m2 [facility] [place] [facility] Systolic blood 2021-01-11 02:55:00 175 mm[Hg] Univer sity of pressure [place] [facility] Diastolic blood 2021-01-11 02:55:00 85 mm[Hg] Unive rsity of pressure [place] [facility] Heart rate 2021-01-11 02:55:00 73 /min [facility] [place] [facility] Respiratory rate 2021-01-11 02:55:00 16 /min Univ ersity [facility] [place] [facility] Oxygen saturation in 2021-01-11 02:55:00 96 /min University of Arterial blood by [place] [employer] hemal Pulse oximetry Branch Body temperature 2021-01-10 23:48:00 37.22 Ayana [facility] [place] [facility] Body weight 2021-01-10 23:48:00 58.968 kg [facility] [place] [facility] BMI 2021-01-10 23:48:00 22.31 kg/m2 [facility] [place] [facility] Systolic blood 2020-12-29 18:08:00 132 mm[Hg] Univer sity of pressure [place] [facility] Diastolic blood 2020-12-29 18:08:00 65 mm[Hg] Unive rsity of pressure [place] [facility] Heart rate 2020-12-29 18:03:00 65 /min [facility] [place] [facility] Body temperature 2020-12-29 18:03:00 36.44 Ayana Univ [facility] [place] [facility] Respiratory rate 2020-12-29 18:03:00 16 /min [facility] [place] [facility] Body height 2020-12-29 18:03:00 162.6 cm [facility] [place] [facility] Body weight 2020-12-29 18:03:00 59.013 kg [facility] [place] [facility] BMI 2020-12-29 18:03:00 22.33 kg/m2 [facility] [place] [facility] Oxygen saturation in 2020-12-29 18:03:00 98 /min University of Arterial blood by [place] [employer] hemal Pulse oximetry Branch Systolic blood 2020-12-29 18:08:00 132 mm[Hg] Univer sity of pressure [facility] [place] Diastolic blood 2020-12-29 18:08:00 65 mm[Hg] Unive rsity of [facility] Heart rate 2020-12-29 18:03:00 65 /min Universi ty [facility] Body temperature 2020-12-29 18:03:00 36.44 Ayana [facility] Res[facility] rate 2020-12-29 18:03:00 16 /min [facility] Body height 2020-12-29 18:03:00 162.6 cm Universi ty [facility] Body weight 2020-12-29 18:03:00 [facility] 2020-12-29 18:03:00 22.33 kg/m2 [facility] Oxygen saturation in 2020-12-29 18:03:00 98 /min University Arterial blood by [facility] Pulse oximetry [place] Oxygen saturation in 2021-07-13 18:02:00 94 /min [facility] Arterial blood by Pulse oximetry Heart rate 2021-07-13 17:59:00 74 /min [facility] [place] Respiratory rate 2021-07-13 17:59:00 14 /min [facility] Systolic blood 2021-07-13 17:02:14 121 mm[Hg] [facility] pressure Diastolic blood 2021-07-13 17:02:14 63 mm[Hg] [facility] pressure Body temperature 2021-07-13 17:02:14 36.11 Ayana [facility] Body height 2021-07-08 22:41:00 162.6 cm [facility] [place] Body weight 2021-07-08 22:41:00 58.968 kg [facility] [place] BMI 2021-07-08 22:41:00 22.31 kg/m2 [facility] [place] BP Diastolic 2020-09-28 12:46:00 76 mm[Hg] [facility] Patient [facility] Center BP Systolic 2020-09-28 12:46:00 149 mm[Hg] [facility] Oxygen saturation by 2020-09-28 12:46:00 99 /min [facility] Pulse oximetry Patient [facility] Heart Rate 2020-09-28 12:46:00 85 /min [facility] Respiratory rate 2020-09-28 12:46:00 22 /min [facility] Body Temperature 2020-09-28 12:46:00 97.7 [degF] [facility] Heart Rate 2020-09-28 08:42:00 81 /min [facility] Respiratory rate 2020-09-28 08:42:00 24 /min [facility] Body Temperature 2020-09-28 08:42:00 97.4 [degF] [facility] BP Diastolic 2020-09-28 08:42:00 60 mm[Hg] [facility] BP Systolic 2020-09-28 08:42:00 141 mm[Hg] [facility] Oxygen saturation by 2020-09-28 08:42:00 96 /min [facility] Pulse oximetry Patient [facility] BP Diastolic 2020-09-28 08:36:00 60 mm[Hg] [facility] BP Systolic 2020-09-28 08:36:00 141 mm[Hg] [facility] Oxygen saturation by 2020-09-28 08:36:00 96 /min [facility] Pulse oximetry Patient [facility] Heart Rate 2020-09-28 08:36:00 81 /min [facility] Respiratory rate 2020-09-28 08:36:00 24 /min [facility] Body Temperature 2020-09-28 08:36:00 97.4 [degF] [facility] Oxygen saturation by 2020-09-28 08:17:00 96 /min [facility] Pulse oximetry Patient [facility] Heart Rate 2020-09-28 08:17:00 80 /min [facility] Respiratory rate 2020-09-28 08:17:00 20 /min [facility] Oxygen saturation by 2020-09-28 07:49:00 96 /min [facility] Pulse oximetry Patient [facility] Heart Rate 2020-09-28 07:49:00 80 /min [facility] Respiratory rate 2020-09-28 07:49:00 20 /min [facility] BP Diastolic 2020-09-28 04:00:00 41 mm[Hg] [facility] BP Systolic 2020-09-28 04:00:00 107 mm[Hg] [facility] Oxygen saturation by 2020-09-28 04:00:00 96 /min [facility] Pulse oximetry Patient [facility] Heart Rate 2020-09-28 04:00:00 85 /min [facility] Respiratory rate 2020-09-28 04:00:00 20 /min [facility] Body Temperature 2020-09-28 04:00:00 97.7 [degF] [facility] Oxygen saturation by 2020-09-28 02:48:00 98 /min [facility] Pulse oximetry Patient [facility] Heart Rate 2020-09-28 02:48:00 85 /min [facility] Respiratory rate 2020-09-28 02:48:00 18 /min [facility] Oxygen saturation by 2020-09-28 02:40:00 95 /min [facility] Pulse oximetry Patient [facility] Heart Rate 2020-09-28 02:40:00 87 /min [facility] Respiratory rate 2020-09-28 02:40:00 20 /min [facility] BP Diastolic 2020-09-28 00:00:00 59 mm[Hg] [facility] BP Systolic 2020-09-28 00:00:00 135 mm[Hg] [facility] Oxygen saturation by 2020-09-28 00:00:00 94 /min [facility] Pulse oximetry Patient [facility] Heart Rate 2020-09-28 00:00:00 92 /min [facility] Respiratory rate 2020-09-28 00:00:00 20 /min [facility] Body Temperature 2020-09-28 00:00:00 97.8 [degF] [facility] BP Diastolic 2020-09-27 20:00:00 66 mm[Hg] [facility] BP Systolic 2020-09-27 20:00:00 156 mm[Hg] [facility] Oxygen saturation by 2020-09-27 20:00:00 99 /min [facility] Pulse oximetry Patient [facility] Heart Rate 2020-09-27 20:00:00 99 /min [facility] Center Respiratory rate 2020-09-27 20:00:00 18 /min [facility] Body Temperature 2020-09-27 20:00:00 98.1 [degF] [facility] Oxygen saturation by 2020-09-27 19:53:00 100 /min [facility] Pulse oxim[facility] Patient [facility] Heart Rate 2020-09-27 19:53:00 96 /min [facility] Center Respiratory rate 2020-09-27 19:53:00 18 /min [facility] Oxygen saturation by 2020-09-27 19:45:00 97 /min [facility] Pulse oximetry Patient [facility] Heart Rate 2020-09-27 19:45:00 99 /min [facility] Center Respiratory rate 2020-09-27 19:45:00 20 /min [facility] BP Diastolic 2020-09-27 15:21:00 66 mm[Hg] [facility] BP Systolic 2020-09-27 15:21:00 159 mm[Hg] [facility] Patient [facility] Center Oxygen saturation by 2020-09-27 15:21:00 95 /min [facility] Pulse oximetry Patient [facility] Heart Rate 2020-09-27 15:21:00 103 /min [facility] Respiratory rate 2020-09-27 15:21:00 20 /min [facility] Body Temperature 2020-09-27 15:21:00 98.5 [degF] [facility] Oxygen saturation by 2020-09-27 14:45:00 99 /min [facility] Pulse [facility]ximetry Patient [facility] Heart Rate 2020-09-27 14:45:00 103 /min [facility] Center Respiratory rate 2020-09-27 14:45:00 20 /min [facility] Patient [facility] Center Oxygen saturation by 2020-09-27 14:30:00 95 /min [facility] P[facility] Heart Rate 2020-09-27 14:30:00 103 /min [facility] Center Respiratory rate 2020-09-27 14:30:00 20 /min [facility] BP Diastolic 2020-09-27 11:13:00 56 mm[Hg] [facility] BP Systolic 2020-09-27 11:13:00 123 mm[Hg] [facility] Oxygen saturation by 2020-09-27 11:13:00 99 /min [facility] Pulse oximetry Patient Medic [facility] Heart Rate 2020-09-27 11:13:00 88 /min [facility] Patient [facility] Respiratory rate 2020-09-27 11:13:00 16 /min [facility] Body Temperature 2020-09-27 11:13:00 98.4 [degF] [facility] BP Diastolic 2020-09-27 08:15:00 51 mm[Hg] [facility] Patient [facility] BP Systolic 2020-09-27 08:15:00 116 mm[Hg] [facility] Patient [facility] Oxygen saturation by 2020-09-27 08:15:00 95 /min [facility] P[facility] Patient [facility] Heart Rate 2020-09-27 08:15:00 105 /min [facility] Center Respiratory rate 2020-09-27 08:15:00 16 /min [facility] Body Temperature 2020-09-27 08:15:00 97.6 [degF] [facility] BP Diastolic 2020-09-27 07:58:00 51 mm[Hg] [facility] BP Systolic 2020-09-27 07:58:00 116 mm[Hg] [facility] Patient [facility] Center Oxygen saturation by 2020-09-27 07:58:00 95 /min [facility] Pulse [facility]ximetry Patient [facility] Heart Rate 2020-09-27 07:58:00 105 /min [facility] Respiratory rate 2020-09-27 07:58:00 16 /min [facility] Body Temperature 2020-09-27 07:58:00 97.6 [degF] [facility] Oxygen saturation by 2020-09-27 07:15:00 99 /min [facility] Pulse [facility]ximetry Patient [facility] Heart Rate 2020-09-27 07:15:00 105 /min [facility] Patient [facility] Respiratory rate 2020-09-27 07:15:00 16 /min [facility] Oxygen saturation by 2020-09-27 07:00:00 95 /min [facility] Pulse [facility]ximetry Patient [facility] Heart Rate 2020-09-27 07:00:00 105 /min [facility] 2020-09-27 07:00:00 16 /min [facility] Oxygen saturation by 2020-09-27 00:05:00 100 /min [facility] Pulse [facility]ximetry Patient [facility] Heart Rate 2020-09-27 00:05:00 91 /min [facility] Respiratory rate 2020-09-27 00:05:00 20 /min [facility] Oxygen saturation by 2020-09-26 23:50:00 98 /min [facility] Pulse oximetry Patient [facility] Heart Rate 2020-09-26 23:50:00 89 /min [facility] Respiratory rate 2020-09-26 23:50:00 20 /min [facility] BP Diastolic 2020-09-26 20:36:00 69 mm[Hg] [facility] BP Systolic 2020-09-26 20:36:00 114 mm[Hg] [facility] Oxygen saturation by 2020-09-26 20:36:00 98 /min [facility] Pulse oximetry Patient [facility] Heart Rate 2020-09-26 20:36:00 84 /min [facility] 2020-09-26 20:36:00 18 /min [facility] Body Temperature 2020-09-26 20:36:00 98.1 [degF] [facility] BP Diastolic 2020-09-26 20:00:00 80 mm[Hg] [facility] Patient [facility] BP Systolic 2020-09-26 20:00:00 142 mm[Hg] [facility] Oxygen saturation by 2020-09-26 20:00:00 100 /min [facility] Pulse oximetry Patient [facility] Heart Rate 2020-09-26 20:00:00 89 /min [facility] Respiratory rate 2020-09-26 20:00:00 21 /min [facility] Body Temperature 2020-09-26 20:00:00 98.3 [degF] [facility] BP Diastolic 2020-09-26 16:11:00 75 mm[Hg] [facility] BP Systolic 2020-09-26 16:11:00 151 mm[Hg] [facility] Oxygen saturation by 2020-09-26 16:11:00 100 /min [facility] Pulse [facility]ximetry Patient [facility] Heart Rate 2020-09-26 16:11:00 89 /min [facility] Respiratory rate 2020-09-26 16:11:00 21 /min [facility] Body Temperature 2020-09-26 16:11:00 98.3 [degF] [facility] Oxygen saturation by 2020-09-26 13:10:00 96 /min [facility] Pulse [facility]xim[facility] Patient [facility] Heart Rate 2020-09-26 13:10:00 94 /min [facility] Respiratory rate 2020-09-26 13:10:00 16 /min [facility] Center Oxygen saturation by 2020-09-26 12:55:00 96 /min [facility] Pulse oximetry Patient [facility] Heart Rate 2020-09-26 12:55:00 94 /min [facility] Center Respiratory rate 2020-09-26 12:55:00 16 /min [facility] Oxygen saturation by 2020-09-26 12:35:00 96 /min [facility] P[facility] Heart Rate 2020-09-26 12:35:00 94 /min [facility] Respiratory rate 2020-09-26 12:35:00 16 /min [facility] Patient [facility] BP Diastolic 2020-09-26 12:12:00 66 mm[Hg] [facility] BP Systolic 2020-09-26 12:12:00 113 mm[Hg] [facility] Oxygen saturation by 2020-09-26 12:12:00 98 /min [facility] Pulse oximetry Patient [facility] Heart Rate 2020-09-26 12:12:00 100 /min [facility] Respiratory rate 2020-09-26 12:12:00 26 /min [facility] Body Temperature 2020-09-26 12:12:00 98.0 [degF] [facility] BP Diastolic 2020-09-26 09:22:00 59 mm[Hg] [facility] 2020-09-26 09:22:00 113 mm[Hg] [facility] Oxygen saturation by 2020-09-26 09:22:00 98 /min [facility] Pulse [facility]ximetry Patient [facility] Heart Rate 2020-09-26 09:22:00 99 /min [facility] Respiratory rate 2020-09-26 09:22:00 26 /min [facility] Body Temperature 2020-09-26 09:22:00 97.4 [degF] [facility] Oxygen saturation by 2020-09-26 08:50:00 98 /min [facility] Pulse [facility]etry Patient [facility] Heart Rate 2020-09-26 08:50:00 99 /min [facility] Respiratory rate 2020-09-26 08:50:00 26 /min [facility] Center Oxygen saturation by 2020-09-26 08:35:00 98 /min [facility] Pulse oximetry Patient [facility] Heart Rate 2020-09-26 08:35:00 99 /min [facility] Respiratory rate 2020-09-26 08:35:00 26 /min [facility] BP Diastolic 2020-09-26 07:58:00 59 mm[Hg] [facility] BP Systolic 2020-09-26 07:58:00 113 mm[Hg] [facility] Oxygen saturation by 2020-09-26 07:58:00 98 /min [facility] Pulse [facility]ximetry Patient [facility] Heart Rate 2020-09-26 07:58:00 99 /min [facility] Respiratory rate 2020-09-26 07:58:00 26 /min [facility] Body Temperature 2020-09-26 07:58:00 97.4 [degF] [facility] BP Diastolic 2020-09-26 04:00:00 40 mm[Hg] [facility] BP Systolic 2020-09-26 04:00:00 112 mm[Hg] [facility] Oxygen saturation by 2020-09-26 04:00:00 98 /min [facility] Pulse [facility]ximetry Patient [facility] Heart Rate 2020-09-26 04:00:00 99 /min [facility] Respiratory rate 2020-09-26 04:00:00 20 /min [facility] Body Temperature 2020-09-26 04:00:00 97.0 [degF] [facility] Oxygen saturation by 2020-09-25 20:08:00 100 /min [facility] Pulse [facility]ximetry Patient [facility] Heart Rate 2020-09-25 20:08:00 97 /min [facility] Respiratory rate 2020-09-25 20:08:00 20 /min [facility] BP Diastolic 2020-09-25 20:00:00 61 mm[Hg] [facility] BP Systolic 2020-09-25 20:00:00 124 mm[Hg] [facility] Oxygen saturation by 2020-09-25 20:00:00 97 /min [facility] Pulse [facility]ximetry Patient [facility] Heart Rate 2020-09-25 20:00:00 99 /min [facility] Respiratory rate 2020-09-25 20:00:00 18 /min [facility] Body Temperature 2020-09-25 20:00:00 97.9 [degF] [facility] Patient [facility] Oxygen saturation by 2020-09-25 19:53:00 97 /min [facility] Pulse oximetry Patient [facility] Heart Rate 2020-09-25 19:53:00 94 /min [facility] Center Respiratory rate 2020-09-25 19:53:00 20 /min [facility] BP Diastolic 2020-09-25 15:48:00 61 mm[Hg] [facility] BP Systolic 2020-09-25 15:48:00 124 mm[Hg] [facility] Patient [facility] Center Oxygen saturation by 2020-09-25 15:48:00 97 /min [facility] P[facility] Patient [facility] Heart Rate 2020-09-25 15:48:00 99 /min [facility] Patient [facility] Center Respiratory rate 2020-09-25 15:48:00 18 /min [facility] Body Temperature 2020-09-25 15:48:00 98.0 [degF] [facility] Oxygen saturation by 2020-09-25 12:40:00 97 /min [facility] Pulse oximetry Patient [facility] Heart Rate 2020-09-25 12:40:00 109 /min [facility] Center Respiratory rate 2020-09-25 12:40:00 16 /min [facility] Oxygen saturation by 2020-09-25 12:39:00 97 /min [facility] Pulse oximetry Patient [facility] Heart Rate 2020-09-25 12:39:00 98 /min [facility] Respiratory rate 2020-09-25 12:39:00 22 /[facility] 2020-09-25 11:14:00 72 mm[facility]Hg[facility] 2020-09-25 11:14:00 98 mm[Hg] [facility] Patient [facility] Center Oxygen saturation by 2020-09-25 11:14:00 100 /min [facility] Pulse [facility]ximetry Patient [facility] Heart Rate 2020-09-25 11:14:00 98 /min [facility] Respiratory rate 2020-09-25 11:14:00 22 /min [facility] Body Temperature 2020-09-25 11:14:00 97.8 [degF] [facility] BP Diastolic 2020-09-25 09:18:00 62 mm[Hg] [facility] BP Systolic 2020-09-25 09:18:00 135 mm[Hg] [facility] Oxygen saturation by 2020-09-25 09:18:00 98 /min [facility] Pulse oximetry [facility] Heart Rate 2020-09-25 09:18:00 96 /min [facility] Respiratory rate 2020-09-25 09:18:00 18 /min [facility] Body Temperature 2020-09-25 09:18:00 97.9 [degF] [facility] Oxygen saturation by 2020-09-25 08:35:00 98 /min [facility] Pulse oximetry Patient [facility] Heart Rate 2020-09-25 08:35:00 96 /min [facility] Respiratory rate 2020-09-25 08:35:00 18 /min [facility] Oxygen saturation by 2020-09-25 08:20:00 98 /min [facility] Pulse oximetry Patient [facility] Heart Rate 2020-09-25 08:20:00 96 /min [facility] Respiratory rate 2020-09-25 08:20:00 18 /min [facility] BP Systolic 2020-09-25 07:33:00 135 mm[Hg] [facility] Oxygen saturation by 2020-09-25 07:33:00 98 /min [facility] Heart Rate 2020-09-25 07:33:00 96 /min [facility] Respiratory rate 2020-09-25 07:33:00 18 /min [facility] Body Temperature 2020-09-25 07:33:00 97.9 [degF] [facility] BP Diastolic 2020-09-25 07:33:00 62 mm[Hg] [facility] BP Diastolic 2020-09-25 04:00:00 69 mm[Hg] [facility] BP Systolic 2020-09-25 04:00:00 121 mm[Hg] [facility] Oxygen saturation by 2020-09-25 04:00:00 97 /min [facility] Pulse oximetry Patient [facility] Heart Rate 2020-09-25 04:00:00 83 /min [facility] Respiratory rate 2020-09-25 04:00:00 18 /min [facility] Body Temperature 2020-09-25 04:00:00 97.7 [degF] [facility] BP Diastolic 2020-09-24 23:59:00 94 mm[Hg] [facility] BP Systolic 2020-09-24 23:59:00 151 mm[Hg] [facility] Oxygen saturation by 2020-09-24 23:59:00 99 /min [facility] Pulse oximetry Patient [facility] Heart Rate 2020-09-24 23:59:00 97 /min [facility] Respiratory rate 2020-09-24 23:59:00 17 /min [facility] Body Temperature 2020-09-24 23:59:00 97.6 [degF] [facility] BP Diastolic 2020-09-24 20:32:00 92 mm[Hg] [facility] BP Systolic 2020-09-24 20:32:00 165 mm[Hg] [facility] Oxygen saturation by 2020-09-24 20:32:00 94 /min [facility] Pulse oximetry Patient [facility] Heart Rate 2020-09-24 20:32:00 112 /min [facility] Respiratory rate 2020-09-24 20:32:00 18 /min [facility] Body Temperature 2020-09-24 20:32:00 97.7 [degF] [facility] Oxygen saturation by 2020-09-24 20:25:00 98 /min [facility] Pulse [facility]ximetry [facility] Heart Rate 2020-09-24 20:25:00 100 /min [facility] Respiratory rate 2020-09-24 20:25:00 20 /[facility] Oxygen saturation by 2020-09-24 20:10:00 95 /min [facility] Pulse oximetry Patient [facility] Heart Rate 2020-09-24 20:10:00 102 /min [facility] Respiratory rate 2020-09-24 20:10:00 20 /min [facility] Patient [facility] BP Diastolic 2020-09-24 20:00:00 92 mm[Hg] [facility] BP Systolic 2020-09-24 20:00:00 165 mm[Hg] [facility] Oxygen saturation by 2020-09-24 20:00:00 94 /min [facility] Pulse oximetry Patient [facility] Heart Rate 2020-09-24 20:00:00 112 /min [facility] 2020-09-24 20:00:00 18 /min [facility] Body Temperature 2020-09-24 20:00:00 97.7 [degF] [facility] BP Diastolic 2020-09-24 17:13:00 71 mm[Hg] [facility] 2020-09-24 17:13:00 129 mm[Hg] [facility] Patient [facility] Oxygen saturation by 2020-09-24 17:13:00 100 /min [facility] Pulse oximetry Patient [facility] Heart Rate 2020-09-24 17:13:00 94 /min [facility] Center Respiratory rate 2020-09-24 17:13:00 16 /min [facility] Patient [facility] Body Temperature 2020-09-24 17:13:00 97.7 [degF] [facility] Oxygen saturation by 2020-09-24 14:00:00 100 /min [facility] Pulse oximetry Patient [facility] Heart Rate 2020-09-24 14:00:00 94 /min [facility] Respiratory rate 2020-09-24 14:00:00 16 /min [facility] Patient [facility] Center Oxygen saturation by 2020-09-24 13:45:00 100 /min [facility] Pulse oximetry Patient [facility] Heart Rate 2020-09-24 13:45:00 94 /min [facility] Respiratory rate 2020-09-24 13:45:00 16 /min [facility] BP Diastolic 2020-09-24 08:41:00 59 mm[Hg] [facility] Patient [facility] BP Systolic 2020-09-24 08:41:00 142 mm[Hg] [facility] Oxygen saturation by 2020-09-24 08:41:00 100 /min [facility] Pulse oximetry Patient [facility] Heart Rate 2020-09-24 08:41:00 94 /min [facility] Patient [facility] Center Respiratory rate 2020-09-24 08:41:00 16 /min [facility] Body Temperature 2020-09-24 08:41:00 97.7 [degF] [facility] BP Diastolic 2020-09-24 08:30:00 59 mm[Hg] [facility] Patient [facility] BP Systolic 2020-09-24 08:30:00 142 mm[Hg] [facility] Patient [facility] Oxygen saturation by 2020-09-24 08:30:00 95 /min [facility] Pulse oximetry Patient [facility] Heart Rate 2020-09-24 08:30:00 94 /min [facility] Patient [facility] Center Respiratory rate 2020-09-24 08:30:00 18 /min [facility] Body Temperature 2020-09-24 08:30:00 98.6 [degF] [facility] Patient [facility] Oxygen saturation by 2020-09-24 06:50:00 100 /min [facility] Pulse oximetry Patient [facility] Heart Rate 2020-09-24 06:50:00 91 /min [facility] Patient [facility] Center Respiratory rate 2020-09-24 06:50:00 16 /min [facility] Oxygen saturation by 2020-09-24 06:35:00 97 /min [facility] Pulse oximetry Patient [facility] Heart Rate 2020-09-24 06:35:00 87 /min [facility] Respiratory rate 2020-09-24 06:35:00 16 /min [facility] Patient [facility] BP Diastolic 2020-09-24 04:00:00 64 mm[Hg] [facility] BP Systolic 2020-09-24 04:00:00 137 mm[Hg] [facility] Oxygen saturation by 2020-09-24 04:00:00 96 /min [facility] Pulse oximetry Patient [facility] Heart Rate 2020-09-24 04:00:00 88 /min [facility] Center Respiratory rate 2020-09-24 04:00:00 18 /min [facility] Patient [facility] Body Temperature 2020-09-24 04:00:00 97.7 [degF] [facility] Oxygen saturation by 2020-09-24 01:18:00 97 /min [facility] Pulse oximetry Patient [facility] Heart Rate 2020-09-24 01:18:00 91 /min [facility] Respiratory rate 2020-09-24 01:18:00 18 /min [facility] Patient [facility] Oxygen saturation by 2020-09-24 01:10:00 94 /min [facility] Pulse oximetry Patient [facility] Heart Rate 2020-09-24 01:10:00 89 /min [facility] Respiratory rate 2020-09-24 01:10:00 16 /min [facility] BP Diastolic 2020-09-24 00:00:00 60 mm[Hg] [facility] BP Systolic 2020-09-24 00:00:00 154 mm[Hg] [facility] Oxygen saturation by 2020-09-24 00:00:00 94 /min [facility] P[facility] oxim[facility] Patient [facility] Heart Rate 2020-09-24 00:00:00 92 /min [facility] Respiratory rate 2020-09-24 00:00:00 18 /min [facility] Body Temperature 2020-09-24 00:00:00 98.5 [degF] [facility] BP Diastolic 2020-09-23 21:42:00 83 mm[Hg] [facility] Patient [facility] BP Systolic 2020-09-23 21:42:00 146 mm[Hg] [facility] Patient [facility] Oxygen saturation by 2020-09-23 21:42:00 94 /min [facility] Pulse oximetry Patient [facility] Heart Rate 2020-09-23 21:42:00 105 /min [facility] Patient [facility] Respiratory rate 2020-09-23 21:42:00 18 /min [facility] Body Temperature 2020-09-23 21:42:00 97.9 [degF] [facility] BP Diastolic 2020-09-23 20:00:00 83 mm[Hg] [facility] BP Systolic 2020-09-23 20:00:00 146 mm[Hg] [facility] Oxygen saturation by 2020-09-23 20:00:00 94 /min [facility] Pulse oximetry Patient [facility] Heart Rate 2020-09-23 20:00:00 105 /min [facility] Patient [facility] Respiratory rate 2020-09-23 20:00:00 18 /min [facility] Body Temperature 2020-09-23 20:00:00 97.9 [degF] [facility] Oxygen saturation by 2020-09-23 19:18:00 99 /min [facility] P[facility] Patient [facility] Heart Rate 2020-09-23 19:18:00 101 /min [facility] Patient [facility] Respiratory rate 2020-09-23 19:18:00 22 /min [facility] Oxygen saturation by 2020-09-23 19:10:00 94 /min [facility] P[facility] Patient [facility] Heart Rate 2020-09-23 19:10:00 98 /min [facility] Patient [facility] Respiratory rate 2020-09-23 19:10:00 20 /min [facility] BP Diastolic 2020-09-23 16:11:00 64 mm[Hg] [facility] BP Systolic 2020-09-23 16:11:00 135 mm[Hg] [facility] Patient [facility] Oxygen saturation by 2020-09-23 16:11:00 97 /min [facility] Patient [facility] Heart Rate 2020-09-23 16:11:00 96 /min [facility] 2020-09-23 16:11:00 18 /min [facility] Body Temperature 2020-09-23 16:11:00 97.8 [degF] [facility] Oxygen saturation by 2020-09-23 14:15:00 98 /min [facility] P[facility] Patient [facility] Heart Rate 2020-09-23 14:15:00 83 /min [facility] Respiratory rate 2020-09-23 14:15:00 20 /min [facility] Oxygen saturation by 2020-09-23 14:00:00 98 /min [facility] Patient [facility] Heart Rate 2020-09-23 14:00:00 83 /min [facility] Respiratory rate 2020-09-23 14:00:00 20 /min [facility] BP Diastolic 2020-09-23 08:50:00 63 mm[Hg] [facility] BP Systolic 2020-09-23 08:50:00 142 mm[Hg] [facility] Oxygen saturation by 2020-09-23 08:50:00 98 /min [facility] P[facility] Patient [facility] Heart Rate 2020-09-23 08:50:00 94 /min [facility] Respiratory rate 2020-09-23 08:50:00 18 /min [facility] Body Temperature 2020-09-23 08:50:00 97.3 [degF] [facility] BP Diastolic 2020-09-23 08:39:00 63 mm[Hg] [facility] BP Systolic 2020-09-23 08:39:00 142 mm[Hg] [facility] Oxygen saturation by 2020-09-23 08:39:00 100 /min [facility] Pulse [facility] Patient [facility] Heart Rate 2020-09-23 08:39:00 94 /min [facility] Respiratory rate 2020-09-23 08:39:00 18 /min [facility] Body Temperature 2020-09-23 08:39:00 97.4 [degF] [facility] Oxygen saturation by 2020-09-23 06:45:00 100 /min [facility] Heart Rate 2020-09-23 06:45:00 94 /min [facility] Respiratory rate 2020-09-23 06:45:00 18 /min [facility] Oxygen saturation by 2020-09-23 06:30:00 100 /min [facility] P[facility] Patient [facility] Heart Rate 2020-09-23 06:30:00 94 /min [facility] Respiratory rate 2020-09-23 06:30:00 18 /min [facility] BP Diastolic 2020-09-23 04:30:00 75 mm[Hg] [facility] BP Systolic 2020-09-23 04:30:00 168 mm[Hg] [facility] Oxygen saturation by 2020-09-23 04:30:00 98 /min [facility] Patient [facility] Heart Rate 2020-09-23 04:30:00 87 /min [facility] Respiratory rate 2020-09-23 04:30:00 18 /min [facility] Body Temperature 2020-09-23 04:30:00 97.6 [degF] [facility] Oxygen saturation by 2020-09-23 00:40:00 94 /min [facility] Patient [facility] Heart Rate 2020-09-23 00:40:00 81 /min [facility] Respiratory rate 2020-09-23 00:40:00 20 /min [facility] BP Diastolic 2020-09-23 00:23:00 76 mm[Hg] [facility] BP Systolic 2020-09-23 00:23:00 141 mm[Hg] [facility] Oxygen saturation by 2020-09-23 00:23:00 94 /min [facility] P[facility] Patient [facility] Heart Rate 2020-09-23 00:23:00 81 /min [facility] Respiratory rate 2020-09-23 00:23:00 18 /min [facility] Body Temperature 2020-09-23 00:23:00 98.1 [degF] [facility] Patient [facility] BP Diastolic 2020-09-22 20:04:00 81 mm[Hg] [facility] BP Systolic 2020-09-22 20:04:00 158 mm[Hg] [facility] Oxygen saturation by 2020-09-22 20:04:00 95 /min [facility] Pulse [facility]ximetry Patient [facility] Heart Rate 2020-09-22 20:04:00 95 /min [facility] Respiratory rate 2020-09-22 20:04:00 18 /min [facility] Body Temperature 2020-09-22 20:04:00 97.6 [degF] [facility] Oxygen saturation by 2020-09-22 20:02:00 98 /min [facility] Pulse [facility] Patient [facility] Heart Rate 2020-09-22 20:02:00 94 /min [facility] Respiratory rate 2020-09-22 20:02:00 20 /min [facility] Oxygen saturation by 2020-09-22 19:47:00 96 /min [facility] P[facility] Patient [facility] Heart Rate 2020-09-22 19:47:00 95 /min [facility] Respiratory rate 2020-09-22 19:47:00 20 /min [facility] Patient [facility] Oxygen saturation by 2020-09-22 15:48:00 100 /min [facility] Pulse [facility]xim[facility] Patient [facility] Heart Rate 2020-09-22 15:48:00 89 /min [facility] Respiratory rate 2020-09-22 15:48:00 24 /min [facility] BP Diastolic 2020-09-22 15:40:00 57 mm[Hg] [facility] BP Systolic 2020-09-22 15:40:00 143 mm[Hg] [facility] Oxygen saturation by 2020-09-22 15:40:00 98 /min [facility] Heart Rate 2020-09-22 15:40:00 90 /min [facility] Respiratory rate 2020-09-22 15:40:00 22 /min [facility] Patient [facility] Body Temperature 2020-09-22 15:40:00 97.6 [degF] [facility] Patient [facility] Oxygen saturation by 2020-09-22 15:33:00 96 /min [facility] Pulse [facility]ximetry Patient [facility] Heart Rate 2020-09-22 15:33:00 88 /min [facility] Respiratory rate 2020-09-22 15:33:00 24 /min [facility] BP Diastolic 2020-09-22 11:44:00 65 mm[Hg] [facility] BP Systolic 2020-09-22 11:44:00 165 mm[Hg] [facility] Patient [facility] Oxygen saturation by 2020-09-22 11:44:00 100 /min [facility] Pulse [facility]ximetry Patient [facility] Heart Rate 2020-09-22 11:44:00 81 /min [facility] Respiratory rate 2020-09-22 11:44:00 23 /min [facility] Body Temperature 2020-09-22 11:44:00 97.9 [degF] [facility] Patient [facility] Oxygen saturation by 2020-09-22 11:25:00 100 /min [facility] Heart Rate 2020-09-22 11:25:00 88 /min [facility] Oxygen saturation by 2020-09-22 11:10:00 96 /min [facility] Pulse [facility]ximetry Patient [facility] Heart Rate 2020-09-22 11:10:00 84 /min [facility] Respiratory rate 2020-09-22 11:10:00 24 /min [facility] BP Diastolic 2020-09-22 09:27:00 61 mm[Hg] [facility] BP Systolic 2020-09-22 09:27:00 165 mm[Hg] [facility] Oxygen saturation by 2020-09-22 09:27:00 94 /min [facility] Pulse oximetry Patient [facility] Heart Rate 2020-09-22 09:27:00 84 /min [facility] Respiratory rate 2020-09-22 09:27:00 22 /min [facility] Body Temperature 2020-09-22 09:27:00 98.0 [degF] [facility] BP Diastolic 2020-09-22 08:00:00 61 mm[Hg] [facility] BP Systolic 2020-09-22 08:00:00 165 mm[Hg] [facility] Oxygen saturation by 2020-09-22 08:00:00 94 /min [facility] Pulse oximetry Patient [facility] Heart Rate 2020-09-22 08:00:00 84 /min [facility] Respiratory rate 2020-09-22 08:00:00 22 /min [facility] Body Temperature 2020-09-22 08:00:00 98.0 [degF] [facility] BP Diastolic 2020-09-22 03:50:00 72 mm[Hg] [facility] BP Systolic 2020-09-22 03:50:00 144 mm[Hg] [facility] Oxygen saturation by 2020-09-22 03:50:00 97 /min [facility] Pulse oximetry Patient [facility] Heart Rate 2020-09-22 03:50:00 93 /min [facility] Respiratory rate 2020-09-22 03:50:00 24 /min [facility] Body Temperature 2020-09-22 03:50:00 97.9 [degF] [facility] Oxygen saturation by 2020-09-22 02:17:00 100 /min [facility] Pulse oximetry Patient [facility] Heart Rate 2020-09-22 02:17:00 92 /min [facility] Patient [facility] Respiratory rate 2020-09-22 02:17:00 20 /min [facility] Oxygen saturation by 2020-09-22 02:02:00 100 /min [facility] Pulse oximetry Patient [facility] Heart Rate 2020-09-22 02:02:00 88 /min [facility] Patient [facility] Respiratory rate 2020-09-22 02:02:00 20 /min [facility] BP Diastolic 2020-09-22 00:02:00 64 mm[Hg] [facility] BP Systolic 2020-09-22 00:02:00 139 mm[Hg] [facility] Oxygen saturation by 2020-09-22 00:02:00 100 /min [facility] Pulse oximetry Patient [facility] Heart Rate 2020-09-22 00:02:00 72 /min [facility] Respiratory rate 2020-09-22 00:02:00 20 /min [facility] Body Temperature 2020-09-22 00:02:00 98.4 [degF] [facility] BP Diastolic 2020-09-21 20:07:00 72 mm[Hg] [facility] BP Systolic 2020-09-21 20:07:00 147 mm[Hg] [facility] Oxygen saturation by 2020-09-21 20:07:00 96 /min [facility] Pulse oximetry Patient [facility] Heart Rate 2020-09-21 20:07:00 84 /min [facility] Respiratory rate 2020-09-21 20:07:00 24 /min [facility] Body Temperature 2020-09-21 20:07:00 98.6 [degF] [facility] Oxygen saturation by 2020-09-21 20:02:00 97 /min [facility] Pulse oximetry Patient [facility] Heart Rate 2020-09-21 20:02:00 80 /min [facility] Respiratory rate 2020-09-21 20:02:00 18 /min [facility] BP Diastolic 2020-09-21 20:00:00 96 mm[Hg] [facility] BP Systolic 2020-09-21 20:00:00 135 mm[Hg] [facility] Oxygen saturation by 2020-09-21 20:00:00 95 /min [facility] Pulse [facility]ximetry Patient [facility] Heart Rate 2020-09-21 20:00:00 78 /min [facility] Respiratory rate 2020-09-21 20:00:00 18 /min [facility] Body Temperature 2020-09-21 20:00:00 98.4 [degF] [facility] BP Diastolic 2020-09-21 16:00:00 96 mm[Hg] [facility] BP Systolic 2020-09-21 16:00:00 135 mm[Hg] [facility] Oxygen saturation by 2020-09-21 16:00:00 95 /min [facility] P[facility]etry Patient [facility] Heart Rate 2020-09-21 16:00:00 78 /min [facility] Respiratory rate 2020-09-21 16:00:00 18 /min [facility] Body Temperature 2020-09-21 16:00:00 98.4 [degF] [facility] BP Diastolic 2020-09-21 13:02:00 90 mm[Hg] [facility] BP Systolic 2020-09-21 13:02:00 201 mm[Hg] [facility] Oxygen saturation by 2020-09-21 13:02:00 96 /min [facility] P[facility]etry Patient [facility] Heart Rate 2020-09-21 13:02:00 70 /min [facility] Respiratory rate 2020-09-21 13:02:00 18 /min [facility] Body Temperature 2020-09-21 13:02:00 98.3 [degF] [facility] Oxygen saturation by 2020-09-21 10:15:00 96 /min [facility] Pulse [facility]ximetry Patient [facility] Heart Rate 2020-09-21 10:15:00 72 /min [facility] Respiratory rate 2020-09-21 10:15:00 18 /min [facility] BP Diastolic 2020-09-21 09:08:00 63 mm[Hg] [facility] BP Systolic 2020-09-21 09:08:00 150 mm[Hg] [facility] Oxygen saturation by 2020-09-21 09:08:00 95 /min [facility] Pulse oximetry Patient [facility] Heart Rate 2020-09-21 09:08:00 63 /min [facility] Respiratory rate 2020-09-21 09:08:00 17 /min [facility] Body Temperature 2020-09-21 09:08:00 98.0 [degF] [facility] BP Diastolic 2020-09-21 08:58:00 63 mm[Hg] [facility] BP Systolic 2020-09-21 08:58:00 150 mm[Hg] [facility] Oxygen saturation by 2020-09-21 08:58:00 95 /min [facility] Pulse oximetry Patient [facility] Heart Rate 2020-09-21 08:58:00 63 /min [facility] Respiratory rate 2020-09-21 08:58:00 17 /min [facility] Body Temperature 2020-09-21 08:58:00 98.0 [degF] [facility] BP Diastolic 2020-09-21 07:38:00 63 mm[Hg] [facility] BP Systolic 2020-09-21 07:38:00 150 mm[Hg] [facility] Oxygen saturation by 2020-09-21 07:38:00 95 /min [facility] Pulse oximetry Patient [facility] Heart Rate 2020-09-21 07:38:00 63 /min [facility] Respiratory rate 2020-09-21 07:38:00 17 /min [facility] Body Temperature 2020-09-21 07:38:00 98.0 [degF] [facility] BP Diastolic 2020-09-21 04:00:00 70 mm[Hg] [facility] BP Systolic 2020-09-21 04:00:00 149 mm[Hg] [facility] Oxygen saturation by 2020-09-21 04:00:00 94 /min [facility] Pulse oximetry Patient [facility] Heart Rate 2020-09-21 04:00:00 73 /min [facility] Respiratory rate 2020-09-21 04:00:00 21 /min [facility] Body Temperature 2020-09-21 04:00:00 97.0 [degF] [facility] BP Diastolic 2020-09-21 00:00:00 66 mm[Hg] [facility] BP Systolic 2020-09-21 00:00:00 143 mm[Hg] [facility] Oxygen saturation by 2020-09-21 00:00:00 95 /min [facility] Pulse oximetry Patient [facility] Heart Rate 2020-09-21 00:00:00 76 /min [facility] Respiratory rate 2020-09-21 00:00:00 21 /min [facility] Body Temperature 2020-09-21 00:00:00 98.2 [degF] [facility] BP Diastolic 2020-09-20 20:00:00 69 mm[Hg] [facility] BP Systolic 2020-09-20 20:00:00 155 mm[Hg] [facility] Oxygen saturation by 2020-09-20 20:00:00 94 /min [facility] Pulse oximetry Patient [facility] Heart Rate 2020-09-20 20:00:00 72 /min [facility] Respiratory rate 2020-09-20 20:00:00 20 /min [facility] Body Temperature 2020-09-20 20:00:00 98.1 [degF] [facility] Oxygen saturation by 2020-09-20 19:53:00 99 /min [facility] Pulse oximetry Patient [facility] Heart Rate 2020-09-20 19:53:00 72 /min [facility] Patient [facility] Respiratory rate 2020-09-20 19:53:00 16 /min [facility] Oxygen saturation by 2020-09-20 19:45:00 96 /min [facility] Pulse oximetry Patient [facility] Heart Rate 2020-09-20 19:45:00 75 /min [facility] Patient [facility] Respiratory rate 2020-09-20 19:45:00 18 /min [facility] BP Diastolic 2020-09-20 16:36:00 69 mm[Hg] [facility] BP Systolic 2020-09-20 16:36:00 155 mm[Hg] [facility] Patient [facility] Oxygen saturation by 2020-09-20 16:36:00 97 /min [facility] Pulse oximetry Patient [facility] Heart Rate 2020-09-20 16:36:00 73 /min [facility] Respiratory rate 2020-09-20 16:36:00 21 /min [facility] Body Temperature 2020-09-20 16:36:00 98.3 [degF] [facility] BP Diastolic 2020-09-20 15:47:00 60 mm[Hg] [facility] BP Systolic 2020-09-20 15:47:00 133 mm[Hg] [facility] Oxygen saturation by 2020-09-20 15:47:00 94 /min [facility] Pulse oximetry Patient [facility] Heart Rate 2020-09-20 15:47:00 71 /min [facility] Respiratory rate 2020-09-20 15:47:00 19 /min [facility] Body Temperature 2020-09-20 15:47:00 98.1 [degF] [facility] BP Diastolic 2020-09-20 11:55:00 60 mm[Hg] [facility] BP Systolic 2020-09-20 11:55:00 133 mm[Hg] [facility] Oxygen saturation by 2020-09-20 11:55:00 94 /min [facility] P[facility]ximetry Patient [facility] Heart Rate 2020-09-20 11:55:00 71 /min [facility] Patient [facility] Respiratory rate 2020-09-20 11:55:00 19 /min [facility] Body Temperature 2020-09-20 11:55:00 98.1 [degF] [facility] BP Diastolic 2020-09-20 09:06:00 66 mm[Hg] [facility] BP Systolic 2020-09-20 09:06:00 145 mm[Hg] [facility] Oxygen saturation by 2020-09-20 09:06:00 99 /min [facility] Pulse oximetry Patient [facility] Heart Rate 2020-09-20 09:06:00 86 /min [facility] [facility] Res[facility] rate 2020-09-20 09:06:00 19 /min [facility] Body Temperature 2020-09-20 09:06:00 98.4 [degF] [facility] BP Diastolic 2020-09-20 08:58:00 66 mm[Hg] [facility] BP Systolic 2020-09-20 08:58:00 145 mm[Hg] [facility] Oxygen saturation by 2020-09-20 08:58:00 99 /min [facility] Pulse [facility]ximetry Patient [facility] Heart Rate 2020-09-20 08:58:00 86 /min [facility] Respiratory rate 2020-09-20 08:58:00 19 /min [facility] Body Temperature 2020-09-20 08:58:00 98.4 [degF] [facility] BP Diastolic 2020-09-20 08:55:00 66 mm[Hg] [facility] BP Systolic 2020-09-20 08:55:00 145 mm[Hg] [facility] Oxygen saturation by 2020-09-20 08:55:00 99 /min [facility] Pulse oximetry Patient [facility] Heart Rate 2020-09-20 08:55:00 86 /min [facility] Respiratory rate 2020-09-20 08:55:00 19 /min [facility] Body Temperature 2020-09-20 08:55:00 98.4 [degF] [facility] BP Diastolic 2020-09-20 07:38:00 66 mm[Hg] [facility] BP Systolic 2020-09-20 07:38:00 145 mm[Hg] [facility] Oxygen saturation by 2020-09-20 07:38:00 99 /min [facility] Pulse oximetry Patient [facility] Heart Rate 2020-09-20 07:38:00 71 /min [facility] Respiratory rate 2020-09-20 07:38:00 19 /min [facility] Body Temperature 2020-09-20 07:38:00 98.4 [degF] [facility] Oxygen saturation by 2020-09-20 07:05:00 95 /min [facility] Pulse oximetry Patient [facility] Heart Rate 2020-09-20 07:05:00 82 /min [facility] Respiratory rate 2020-09-20 07:05:00 18 /min [facility] BP Diastolic 2020-09-20 04:00:00 61 mm[Hg] [facility] BP Systolic 2020-09-20 04:00:00 145 mm[Hg] [facility] Oxygen saturation by 2020-09-20 04:00:00 96 /min [facility] Pulse oximetry Patient [facility] Heart Rate 2020-09-20 04:00:00 66 /min [facility] Respiratory rate 2020-09-20 04:00:00 18 /min [facility] Body Temperature 2020-09-20 04:00:00 97.5 [degF] [facility] BP Diastolic 2020-09-20 00:00:00 56 mm[Hg] [facility] BP Systolic 2020-09-20 00:00:00 133 mm[Hg] [facility] Oxygen saturation by 2020-09-20 00:00:00 98 /min [facility] Pulse [facility] Heart Rate 2020-09-20 00:00:00 66 /min [facility] Respiratory rate 2020-09-20 00:00:00 20 /min [facility] Body Temperature 2020-09-20 00:00:00 97.9 [degF] [facility] BP Diastolic 2020-09-19 21:46:00 70 mm[Hg] [facility] BP Systolic 2020-09-19 21:46:00 138 mm[Hg] [facility] Oxygen saturation by 2020-09-19 21:46:00 94 /min [facility] Pulse oximetry [facility] Heart Rate 2020-09-19 21:46:00 80 /min [facility] Respiratory rate 2020-09-19 21:46:00 18 /min [facility] Body Temperature 2020-09-19 21:46:00 97.4 [degF] [facility] Oxygen saturation by 2020-09-19 20:09:00 95 /min [facility] Pulse oximetry Patient [facility] Heart Rate 2020-09-19 20:09:00 82 /min [facility] Respiratory rate 2020-09-19 20:09:00 18 /min [facility] BP Diastolic 2020-09-19 20:00:00 70 mm[Hg] [facility] BP Systolic 2020-09-19 20:00:00 138 mm[Hg] [facility] Oxygen saturation by 2020-09-19 20:00:00 94 /min [facility] Pulse oximetry [facility] Heart Rate 2020-09-19 20:00:00 80 /min [facility] Respiratory rate 2020-09-19 20:00:00 18 /min [facility] Body Temperature 2020-09-19 20:00:00 97.4 [degF] [facility] BP Diastolic 2020-09-19 15:41:00 70 mm[Hg] [facility] BP Systolic 2020-09-19 15:41:00 157 mm[Hg] [facility] Oxygen saturation by 2020-09-19 15:41:00 95 /min [facility] Pulse oximetry Patient [facility] Heart Rate 2020-09-19 15:41:00 80 /min [facility] Patient [facility] Respiratory rate 2020-09-19 15:41:00 20 /min [facility] Body Temperature 2020-09-19 15:41:00 97.6 [degF] [facility] BP Diastolic 2020-09-19 12:14:00 80 mm[Hg] [facility] BP Systolic 2020-09-19 12:14:00 177 mm[Hg] [facility] Oxygen saturation by 2020-09-19 12:14:00 96 /min [facility] Pulse oximetry Patient [facility] Heart Rate 2020-09-19 12:14:00 84 /min [facility] Respiratory rate 2020-09-19 12:14:00 17 /min [facility] BP Diastolic 2020-09-19 11:26:00 79 mm[Hg] [facility] BP Systolic 2020-09-19 11:26:00 204 mm[Hg] [facility] Oxygen saturation by 2020-09-19 11:26:00 96 /min [facility] Pulse oximetry Patient [facility] Heart Rate 2020-09-19 11:26:00 88 /min [facility] Respiratory rate 2020-09-19 11:26:00 16 /min [facility] Body Temperature 2020-09-19 11:26:00 98.6 [degF] [facility] Oxygen saturation by 2020-09-19 08:10:00 93 /min [facility] Pulse oximetry Patient [facility] Heart Rate 2020-09-19 08:10:00 97 /min [facility] Respiratory rate 2020-09-19 08:10:00 20 /min [facility] BP Diastolic 2020-09-19 07:37:00 91 mm[Hg] [facility] BP Systolic 2020-09-19 07:37:00 168 mm[Hg] [facility] Oxygen saturation by 2020-09-19 07:37:00 97 /min [facility] Pulse oximetry Patient [facility] Heart Rate 2020-09-19 07:37:00 83 /min [facility] Respiratory rate 2020-09-19 07:37:00 21 /min [facility] Body Temperature 2020-09-19 07:37:00 98.1 [degF] [facility] BP Diastolic 2020-09-19 07:17:00 91 mm[Hg] [facility] BP Systolic 2020-09-19 07:17:00 168 mm[Hg] [facility] Oxygen saturation by 2020-09-19 07:17:00 97 /min [facility] Pulse [facility]ximetry [facility] Heart Rate 2020-09-19 07:17:00 83 /min [facility] Respiratory rate 2020-09-19 07:17:00 21 /min [facility] Body Temperature 2020-09-19 07:17:00 98.1 [degF] [facility] BP Diastolic 2020-09-19 05:03:00 97 mm[Hg] [facility] BP Systolic 2020-09-19 05:03:00 157 mm[Hg] [facility] Oxygen saturation by 2020-09-19 05:03:00 93 /min [facility] Pulse [facility]ximetry [facility] Heart Rate 2020-09-19 05:03:00 91 /min [facility] Respiratory rate 2020-09-19 05:03:00 18 /min [facility] Body Temperature 2020-09-19 05:03:00 91.0 [degF] [facility] BP Diastolic 2020-09-19 01:59:00 87 mm[Hg] [facility] BP Systolic 2020-09-19 01:59:00 200 mm[Hg] [facility] Oxygen saturation by 2020-09-19 01:59:00 96 /min [facility] Pulse [facility]ximetry Patient [facility] Heart Rate 2020-09-19 01:59:00 92 /min [facility] Patient [facility] Respiratory rate 2020-09-19 01:59:00 18 /min [facility] Body Temperature 2020-09-19 01:59:00 97.7 [degF] [facility] BP Diastolic 2020-09-18 22:57:00 86 mm[Hg] [facility] BP Systolic 2020-09-18 22:57:00 158 mm[Hg] [facility] Oxygen saturation by 2020-09-18 22:57:00 96 /min [facility] Pulse oximetry Patient [facility] Heart Rate 2020-09-18 22:57:00 68 /min [facility] Respiratory rate 2020-09-18 22:57:00 18 /min [facility] Body Temperature 2020-09-18 22:57:00 97.7 [degF] [facility] BP Diastolic 2020-09-18 21:58:00 86 mm[Hg] [facility] BP Systolic 2020-09-18 21:58:00 158 mm[Hg] [facility] Oxygen saturation by 2020-09-18 21:58:00 96 /min [facility] Pulse [facility]ximetry Patient [facility] Heart Rate 2020-09-18 21:58:00 68 /min [facility] Respiratory rate 2020-09-18 21:58:00 18 /min [facility] Body Temperature 2020-09-18 21:58:00 97.7 [degF] [facility] Oxygen saturation by 2020-09-18 21:16:00 93 /min [facility] Pulse [facility]ximetry Patient [facility] Heart Rate 2020-09-18 21:16:00 97 /min [facility] Respiratory rate 2020-09-18 21:16:00 20 /min [facility] BP Diastolic 2020-09-18 15:41:00 70 mm[Hg] [facility] BP Systolic 2020-09-18 15:41:00 163 mm[Hg] [facility] Oxygen saturation by 2020-09-18 15:41:00 98 /min [facility] Pulse oximetry Patient [facility] Heart Rate 2020-09-18 15:41:00 84 /min [facility] Respiratory rate 2020-09-18 15:41:00 21 /min [facility] Body Temperature 2020-09-18 15:41:00 98.6 [degF] [facility] BP Diastolic 2020-09-18 13:00:00 73 mm[Hg] [facility] BP Systolic 2020-09-18 13:00:00 160 mm[Hg] [facility] Oxygen saturation by 2020-09-18 13:00:00 96 /min [facility] Pulse [facility]ximetry Patient [facility] Heart Rate 2020-09-18 13:00:00 86 /min [facility] Respiratory rate 2020-09-18 13:00:00 23 /min [facility] Body Temperature 2020-09-18 12:23:00 98.0 [degF] [facility] BP Diastolic 2020-09-18 12:00:00 77 mm[Hg] [facility] BP Systolic 2020-09-18 12:00:00 162 mm[Hg] [facility] Oxygen saturation by 2020-09-18 12:00:00 96 /min [facility] Pulse [facility]ximetry [facility] Heart Rate 2020-09-18 12:00:00 85 /min [facility] Respiratory rate 2020-09-18 12:00:00 18 /min [facility] Body Temperature 2020-09-18 12:00:00 98.0 [degF] [facility] BP Diastolic 2020-09-18 11:00:00 76 mm[Hg] [facility] BP Systolic 2020-09-18 11:00:00 168 mm[Hg] [facility] Oxygen saturation by 2020-09-18 11:00:00 96 /min [facility] Heart Rate 2020-09-18 11:00:00 86 /min [facility] Patient [facility] Respiratory rate 2020-09-18 11:00:00 24 /min [facility] BP Diastolic 2020-09-18 10:00:00 79 mm[Hg] [facility] BP Systolic 2020-09-18 10:00:00 150 mm[Hg] [facility] Oxygen saturation by 2020-09-18 10:00:00 96 /min [facility] Pulse oximetry Patient [facility] Heart Rate 2020-09-18 10:00:00 80 /min [facility] Respiratory rate 2020-09-18 10:00:00 19 /min [facility] BP Diastolic 2020-09-18 09:00:00 80 mm[Hg] [facility] BP Systolic 2020-09-18 09:00:00 141 mm[Hg] [facility] Oxygen saturation by 2020-09-18 09:00:00 96 /min [facility] Pulse oximetry Patient [facility] Heart Rate 2020-09-18 09:00:00 86 /min [facility] Respiratory rate 2020-09-18 09:00:00 18 /min [facility] Body Temperature 2020-09-18 09:00:00 97.7 [degF] [facility] BP Diastolic 2020-09-18 08:00:00 70 mm[Hg] [facility] BP Systolic 2020-09-18 08:00:00 146 mm[Hg] [facility] Oxygen saturation by 2020-09-18 08:00:00 96 /min [facility] Pulse oximetry Patient [facility] Heart Rate 2020-09-18 08:00:00 86 /min [facility] Respiratory rate 2020-09-18 08:00:00 15 /min [facility] BP Diastolic 2020-09-18 07:51:00 80 mm[Hg] [facility] BP Systolic 2020-09-18 07:51:00 141 mm[Hg] [facility] Oxygen saturation by 2020-09-18 07:51:00 96 /min [facility] Pulse oximetry Patient [facility] Heart Rate 2020-09-18 07:51:00 86 /min [facility] Respiratory rate 2020-09-18 07:51:00 17 /min [facility] Body Temperature 2020-09-18 07:51:00 97.7 [degF] [facility] Oxygen saturation by 2020-09-18 07:35:00 97 /min [facility] Pulse oximetry Patient [facility] Heart Rate 2020-09-18 07:35:00 85 /min [facility] Respiratory rate 2020-09-18 07:35:00 20 /min [facility] BP Diastolic 2020-09-18 07:00:00 80 mm[Hg] [facility] BP Systolic 2020-09-18 07:00:00 141 mm[Hg] [facility] Oxygen saturation by 2020-09-18 07:00:00 97 /min [facility] Pulse oximetry Patient [facility] Heart Rate 2020-09-18 07:00:00 86 /min [facility] Respiratory rate 2020-09-18 07:00:00 17 /min [facility] Body Temperature 2020-09-18 07:00:00 97.7 [degF] [facility] BP Diastolic 2020-09-18 06:00:00 85 mm[Hg] [facility] BP Systolic 2020-09-18 06:00:00 174 mm[Hg] [facility] Oxygen saturation by 2020-09-18 06:00:00 96 /min [facility] Pulse [facility]ximetry Patient [facility] Heart Rate 2020-09-18 06:00:00 95 /min [facility] Respiratory rate 2020-09-18 06:00:00 21 /min [facility] BP Diastolic 2020-09-18 05:00:00 77 mm[Hg] [facility] BP Systolic 2020-09-18 05:00:00 158 mm[Hg] [facility] Oxygen saturation by 2020-09-18 05:00:00 96 /min [facility] Pulse oximetry Patient [facility] Heart Rate 2020-09-18 05:00:00 86 /min [facility] Respiratory rate 2020-09-18 05:00:00 18 /min [facility] BP Diastolic 2020-09-18 04:00:00 74 mm[Hg] [facility] BP Systolic 2020-09-18 04:00:00 150 mm[Hg] [facility] Oxygen saturation by 2020-09-18 04:00:00 96 /min [facility] Pulse oximetry Patient [facility] Heart Rate 2020-09-18 04:00:00 76 /min [facility] Respiratory rate 2020-09-18 04:00:00 17 /min [facility] BP Diastolic 2020-09-18 03:00:00 88 mm[Hg] [facility] BP Systolic 2020-09-18 03:00:00 157 mm[Hg] [facility] Oxygen saturation by 2020-09-18 03:00:00 97 /min [facility] Pulse [facility]ximetry [facility] Heart Rate 2020-09-18 03:00:00 89 /min [facility] Respiratory rate 2020-09-18 03:00:00 15 /min [facility] BP Diastolic 2020-09-18 02:00:00 80 mm[Hg] [facility] BP Systolic 2020-09-18 02:00:00 145 mm[Hg] [facility] Oxygen saturation by 2020-09-18 02:00:00 96 /min [facility] Pulse [facility]ximetry [facility] Heart Rate 2020-09-18 02:00:00 95 /min [facility] Respiratory rate 2020-09-18 02:00:00 16 /min [facility] BP Diastolic 2020-09-18 01:00:00 73 mm[Hg] [facility] BP Systolic 2020-09-18 01:00:00 144 mm[Hg] [facility] Patient [facility] Oxygen saturation by 2020-09-18 01:00:00 97 /min [facility] Pulse oximetry Patient [facility] Heart Rate 2020-09-18 01:00:00 84 /min [facility] Patient [facility] Respiratory rate 2020-09-18 01:00:00 19 /min [facility] BP Diastolic 2020-09-18 00:00:00 68 mm[Hg] [facility] Patient [facility] BP Systolic 2020-09-18 00:00:00 144 mm[Hg] [facility] Patient [facility] Oxygen saturation by 2020-09-18 00:00:00 97 /min [facility] Pulse oximetry Patient [facility] Heart Rate 2020-09-18 00:00:00 89 /min [facility] Patient [facility] Respiratory rate 2020-09-18 00:00:00 18 /min [facility] Body Temperature 2020-09-18 00:00:00 98.3 [degF] [facility] BP Diastolic 2020-09-17 23:00:00 89 mm[Hg] [facility] BP Systolic 2020-09-17 23:00:00 145 mm[Hg] [facility] Patient [facility] Oxygen saturation by 2020-09-17 23:00:00 96 /min [facility] Pulse [facility]ximetry [facility] Heart Rate 2020-09-17 23:00:00 90 /min [facility] Respiratory rate 2020-09-17 23:00:00 20 /min [facility] BP Diastolic 2020-09-17 22:03:00 67 mm[Hg] [facility] Patient [facility] BP Systolic 2020-09-17 22:03:00 134 mm[Hg] [facility] Oxygen saturation by 2020-09-17 22:03:00 96 /min [facility] Pulse oximetry Patient [facility] Heart Rate 2020-09-17 22:03:00 90 /min [facility] Patient [facility] Respiratory rate 2020-09-17 22:03:00 18 /min [facility] Patient [facility] BP Diastolic 2020-09-17 21:00:00 62 mm[Hg] [facility] BP Systolic 2020-09-17 21:00:00 117 mm[Hg] [facility] Patient [facility] Oxygen saturation by 2020-09-17 21:00:00 96 /min [facility] Pulse oximetry Patient [facility] Heart Rate 2020-09-17 21:00:00 97 /min [facility] Patient [facility] Respiratory rate 2020-09-17 21:00:00 19 /min [facility] Patient [facility] Oxygen saturation by 2020-09-17 20:08:00 96 /min [facility] Pulse oximetry Patient [facility] Heart Rate 2020-09-17 20:08:00 95 /min [facility] Respiratory rate 2020-09-17 20:08:00 20 /min [facility] BP Diastolic 2020-09-17 20:00:00 86 mm[Hg] [facility] Patient [facility] BP Systolic 2020-09-17 20:00:00 169 mm[Hg] [facility] Patient [facility] Oxygen saturation by 2020-09-17 20:00:00 95 /min [facility] Pulse oximetry Patient [facility] Heart Rate 2020-09-17 20:00:00 105 /min [facility] Respiratory rate 2020-09-17 20:00:00 23 /min [facility] BP Diastolic 2020-09-17 19:00:00 81 mm[Hg] [facility] BP Systolic 2020-09-17 19:00:00 172 mm[Hg] [facility] Patient [facility] Oxygen saturation by 2020-09-17 19:00:00 94 /min [facility] Pulse oximetry Patient [facility] Heart Rate 2020-09-17 19:00:00 102 /min [facility] Patient [facility] Respiratory rate 2020-09-17 19:00:00 23 /min [facility] Body Temperature 2020-09-17 19:00:00 97.4 [degF] [facility] BP Diastolic 2020-09-17 18:00:00 74 mm[Hg] [facility] BP Systolic 2020-09-17 18:00:00 146 mm[Hg] [facility] Oxygen saturation by 2020-09-17 18:00:00 95 /min [facility] Pulse oximetry [facility] Heart Rate 2020-09-17 18:00:00 97 /min [facility] Respiratory rate 2020-09-17 18:00:00 18 /min [facility] BP Diastolic 2020-09-17 17:00:00 73 mm[Hg] [facility] BP Systolic 2020-09-17 17:00:00 134 mm[Hg] [facility] Oxygen saturation by 2020-09-17 17:00:00 94 /min [facility] P[facility] Heart Rate 2020-09-17 17:00:00 106 /min [facility] Respiratory rate 2020-09-17 17:00:00 26 /min [facility] BP Diastolic 2020-09-17 16:00:00 83 mm[Hg] [facility] BP Systolic 2020-09-17 16:00:00 184 mm[Hg] [facility] Oxygen saturation by 2020-09-17 16:00:00 92 /min [facility] Pulse oximetry [facility] Heart Rate 2020-09-17 16:00:00 96 /min [facility] Respiratory rate 2020-09-17 16:00:00 32 /min [facility] Body Temperature 2020-09-17 16:00:00 98.6 [degF] [facility] Oxygen saturation by 2020-09-17 15:28:00 94 /min [facility] Pulse oximetry [facility] Heart Rate 2020-09-17 15:28:00 83 /min [facility] Respiratory rate 2020-09-17 15:28:00 26 /min [facility] Oxygen saturation by 2020-09-17 15:27:00 94 /min [facility] Heart Rate 2020-09-17 15:27:00 83 /min [facility] Respiratory rate 2020-09-17 15:27:00 26 /min [facility] BP Diastolic 2020-09-17 15:00:00 84 mm[Hg] [facility] BP Systolic 2020-09-17 15:00:00 181 mm[Hg] [facility] Oxygen saturation by 2020-09-17 15:00:00 98 /min [facility] Heart Rate 2020-09-17 15:00:00 93 /min [facility] Respiratory rate 2020-09-17 15:00:00 24 /min [facility] Oxygen saturation by 2020-09-17 14:59:00 94 /min [facility] Pulse [facility] Heart Rate 2020-09-17 14:59:00 84 /min [facility] Respiratory rate 2020-09-17 14:59:00 17 /min [facility] BP Diastolic 2020-09-17 14:00:00 94 mm[Hg] [facility] BP Systolic 2020-09-17 14:00:00 187 mm[Hg] [facility] Oxygen saturation by 2020-09-17 14:00:00 93 /min [facility] Pulse [facility] Heart Rate 2020-09-17 14:00:00 109 /min [facility] Respiratory rate 2020-09-17 14:00:00 29 /min [facility] BP Diastolic 2020-09-17 13:00:00 87 mm[Hg] [facility] BP Systolic 2020-09-17 13:00:00 171 mm[Hg] [facility] Oxygen saturation by 2020-09-17 13:00:00 92 /min [facility] Pulse [facility]xim[facility] Heart Rate 2020-09-17 13:00:00 112 /min [facility] Respiratory rate 2020-09-17 13:00:00 28 /min [facility] BP Diastolic 2020-09-17 12:00:00 75 mm[Hg] [facility] Patient [facility] BP Systolic 2020-09-17 12:00:00 132 mm[Hg] [facility] Patient [facility] Oxygen saturation by 2020-09-17 12:00:00 92 /min [facility] Pulse oximetry Patient [facility] Heart Rate 2020-09-17 12:00:00 112 /min [facility] Respiratory rate 2020-09-17 12:00:00 26 /min [facility] BP Diastolic 2020-09-17 11:00:00 80 mm[Hg] [facility] BP Systolic 2020-09-17 11:00:00 148 mm[Hg] [facility] Oxygen saturation by 2020-09-17 11:00:00 92 /min [facility] Pulse oximetry [facility] Heart Rate 2020-09-17 11:00:00 119 /min [facility] Respiratory rate 2020-09-17 11:00:00 39 /min [facility] BP Diastolic 2020-09-17 10:00:00 86 mm[Hg] [facility] BP Systolic 2020-09-17 10:00:00 181 mm[Hg] [facility] Heart Rate 2020-09-17 10:00:00 105 /min [facility] Respiratory rate 2020-09-17 10:00:00 38 /min [facility] BP Diastolic 2020-09-17 09:00:00 82 mm[Hg] [facility] BP Systolic 2020-09-17 09:00:00 175 mm[Hg] [facility] Oxygen saturation by 2020-09-17 09:00:00 97 /min [facility] Pulse oximetry [facility] Heart Rate 2020-09-17 09:00:00 88 /min [facility] Patient [facility] Respiratory rate 2020-09-17 09:00:00 17 /min [facility] Body Temperature 2020-09-17 09:00:00 97.6 [degF] [facility] BP Diastolic 2020-09-17 08:00:00 77 mm[Hg] [facility] BP Systolic 2020-09-17 08:00:00 167 mm[Hg] [facility] Oxygen saturation by 2020-09-17 08:00:00 96 /min [facility] Pulse oximetry Patient [facility] Heart Rate 2020-09-17 08:00:00 85 /min [facility] Respiratory rate 2020-09-17 08:00:00 14 /min [facility] BP Diastolic 2020-09-17 07:00:00 83 mm[Hg] [facility] BP Systolic 2020-09-17 07:00:00 169 mm[Hg] [facility] Oxygen saturation by 2020-09-17 07:00:00 96 /min [facility] Pulse [facility]ximetry [facility] Heart Rate 2020-09-17 07:00:00 84 /min [facility] Respiratory rate 2020-09-17 07:00:00 15 /min [facility] BP Diastolic 2020-09-17 06:00:00 87 mm[Hg] [facility] BP Systolic 2020-09-17 06:00:00 159 mm[Hg] [facility] Oxygen saturation by 2020-09-17 06:00:00 96 /min [facility] P[facility] Heart Rate 2020-09-17 06:00:00 83 /min [facility] Respiratory rate 2020-09-17 06:00:00 15 /min [facility] BP Diastolic 2020-09-17 05:00:00 74 mm[Hg] [facility] BP Systolic 2020-09-17 05:00:00 160 mm[Hg] [facility] Oxygen saturation by 2020-09-17 05:00:00 96 /min [facility] Pulse [facility] Heart Rate 2020-09-17 05:00:00 84 /min [facility] Respiratory rate 2020-09-17 05:00:00 16 /min [facility] BP Diastolic 2020-09-17 04:00:00 85 mm[Hg] [facility] BP Systolic 2020-09-17 04:00:00 155 mm[Hg] [facility] Oxygen saturation by 2020-09-17 04:00:00 96 /min [facility] Pulse oximetry [facility] Heart Rate 2020-09-17 04:00:00 86 /min [facility] Respiratory rate 2020-09-17 04:00:00 22 /min [facility] BP Diastolic 2020-09-17 03:30:00 84 mm[Hg] [facility] BP Systolic 2020-09-17 03:30:00 196 mm[Hg] [facility] BP Diastolic 2020-09-17 03:00:00 82 mm[Hg] [facility] BP Systolic 2020-09-17 03:00:00 188 mm[Hg] [facility] Oxygen saturation by 2020-09-17 03:00:00 97 /min [facility] Pulse oximetry [facility] Heart Rate 2020-09-17 03:00:00 90 /min [facility] Respiratory rate 2020-09-17 03:00:00 18 /min [facility] Body Temperature 2020-09-17 03:00:00 97.6 [degF] [facility] BP Diastolic 2020-09-17 02:00:00 75 mm[Hg] [facility] BP Systolic 2020-09-17 02:00:00 154 mm[Hg] [facility] Oxygen saturation by 2020-09-17 02:00:00 95 /min [facility] Pulse oximetry [facility] Heart Rate 2020-09-17 02:00:00 88 /min [facility] Respiratory rate 2020-09-17 02:00:00 18 /min [facility] BP Diastolic 2020-09-17 01:00:00 79 mm[Hg] [facility] BP Systolic 2020-09-17 01:00:00 144 mm[Hg] [facility] Patient [facility] Oxygen saturation by 2020-09-17 01:00:00 94 /min [facility] Pulse oximetry [facility] Heart Rate 2020-09-17 01:00:00 88 /min [facility] Patient [facility] Center Respiratory rate 2020-09-17 01:00:00 15 /min [facility] BP Diastolic 2020-09-17 00:00:00 76 mm[Hg] [facility] Patient [facility] BP Systolic 2020-09-17 00:00:00 171 mm[Hg] [facility] Patient [facility] Oxygen saturation by 2020-09-17 00:00:00 96 /min [facility] Pulse oximetry [facility] Heart Rate 2020-09-17 00:00:00 92 /min [facility] Respiratory rate 2020-09-17 00:00:00 26 /min [facility] Oxygen saturation by 2020-09-16 23:05:00 95 /min [facility] Pulse oximetry [facility] Heart Rate 2020-09-16 23:05:00 77 /min [facility] Patient [facility] Respiratory rate 2020-09-16 23:05:00 17 /min [facility] BP Diastolic 2020-09-16 23:00:00 123 mm[Hg] [facility] BP Systolic 2020-09-16 23:00:00 212 mm[Hg] [facility] Oxygen saturation by 2020-09-16 23:00:00 97 /min [facility] Pulse oximetry [facility] Heart Rate 2020-09-16 23:00:00 83 /min [facility] Patient [facility] Center Respiratory rate 2020-09-16 23:00:00 23 /min [facility] Body Temperature 2020-09-16 23:00:00 97.1 [degF] [facility] BP Diastolic 2020-09-16 22:12:00 76 mm[Hg] [facility] BP Systolic 2020-09-16 22:12:00 137 mm[Hg] [facility] Heart Rate 2020-09-16 22:12:00 80 /min [facility] BP Diastolic 2020-09-16 22:06:00 82 mm[Hg] [facility] BP Systolic 2020-09-16 22:06:00 176 mm[Hg] [facility] Oxygen saturation by 2020-09-16 22:06:00 96 /min [facility] P[facility] Heart Rate 2020-09-16 22:06:00 82 /min [facility] Respiratory rate 2020-09-16 22:06:00 18 /min [facility] BP Diastolic 2020-09-16 22:03:00 81 mm[Hg] [facility] BP Systolic 2020-09-16 22:03:00 201 mm[Hg] [facility] Oxygen saturation by 2020-09-16 22:03:00 96 /min [facility] P[facility] Heart Rate 2020-09-16 22:03:00 84 /min [facility] Respiratory rate 2020-09-16 22:03:00 22 /min [facility] BP Diastolic 2020-09-16 22:00:00 86 mm[Hg] [facility] BP Systolic 2020-09-16 22:00:00 206 mm[Hg] [facility] Oxygen saturation by 2020-09-16 22:00:00 96 /min [facility] P[facility] Heart Rate 2020-09-16 22:00:00 86 /min [facility] Respiratory rate 2020-09-16 22:00:00 19 /min [facility] BP Diastolic 2020-09-16 21:01:00 69 mm[Hg] [facility] BP Systolic 2020-09-16 21:01:00 153 mm[Hg] [facility] Oxygen saturation by 2020-09-16 21:01:00 96 /min [facility] Heart Rate 2020-09-16 21:01:00 85 /min [facility] Respiratory rate 2020-09-16 21:01:00 17 /min [facility] Patient [facility] BP Diastolic 2020-09-16 20:44:00 111 mm[Hg] [facility] BP Systolic 2020-09-16 20:44:00 141 mm[Hg] [facility] Oxygen saturation by 2020-09-16 20:44:00 96 /min [facility] Heart Rate 2020-09-16 20:44:00 84 /min [facility] Respiratory rate 2020-09-16 20:44:00 21 /min [facility] Patient [facility] Body Temperature 2020-09-16 20:44:00 98.0 [degF] [facility] BP Diastolic 2020-09-16 20:42:00 111 mm[Hg] [facility] BP Systolic 2020-09-16 20:42:00 141 mm[Hg] [facility] Heart Rate 2020-09-16 20:42:00 84 /min [facility] BP Diastolic 2020-09-16 20:24:00 66 mm[Hg] [facility] BP Systolic 2020-09-16 20:24:00 163 mm[Hg] [facility] Heart Rate 2020-09-16 20:24:00 84 /min [facility] BP Diastolic 2020-09-16 20:00:00 88 mm[Hg] [facility] BP Systolic 2020-09-16 20:00:00 185 mm[Hg] [facility] Oxygen saturation by 2020-09-16 20:00:00 96 /min [facility] Pulse [facility] Heart Rate 2020-09-16 20:00:00 96 /min [facility] Respiratory rate 2020-09-16 20:00:00 21 /min [facility] Body Temperature 2020-09-16 20:00:00 98.0 [degF] [facility] Oxygen saturation by 2020-09-16 19:40:00 96 /min [facility] Pulse oximetry [facility] Heart Rate 2020-09-16 19:40:00 105 /min [facility] Patient [facility] Respiratory rate 2020-09-16 19:40:00 27 /min [facility] BP Diastolic 2020-09-16 16:00:00 90 mm[Hg] [facility] BP Systolic 2020-09-16 16:00:00 175 mm[Hg] [facility] Oxygen saturation by 2020-09-16 16:00:00 96 /min [facility] Pulse oximetry [facility] Heart Rate 2020-09-16 16:00:00 108 /min [facility] Respiratory rate 2020-09-16 16:00:00 36 /min [facility] Body Temperature 2020-09-16 16:00:00 98.5 [degF] [facility] BP Diastolic 2020-09-16 13:00:00 73 mm[Hg] [facility] BP Systolic 2020-09-16 13:00:00 149 mm[Hg] [facility] Oxygen saturation by 2020-09-16 13:00:00 2 /min [facility] Heart Rate 2020-09-16 13:00:00 90 /min [facility] Respiratory rate 2020-09-16 13:00:00 15 /min [facility] BP Diastolic 2020-09-16 12:00:00 88 mm[Hg] [facility] BP Systolic 2020-09-16 12:00:00 174 mm[Hg] [facility] Oxygen saturation by 2020-09-16 12:00:00 94 /min [facility] Pulse oximetry [facility] Heart Rate 2020-09-16 12:00:00 101 /min [facility] Respiratory rate 2020-09-16 12:00:00 32 /min [facility] Body Temperature 2020-09-16 12:00:00 97.8 [degF] [facility] Oxygen saturation by 2020-09-16 11:00:00 96 /min [facility] P[facility] Heart Rate 2020-09-16 11:00:00 79 /min [facility] Respiratory rate 2020-09-16 11:00:00 19 /min [facility] BP Diastolic 2020-09-16 11:00:00 81 mm[Hg] [facility] BP Systolic 2020-09-16 11:00:00 186 mm[Hg] [facility] BP Diastolic 2020-09-16 10:00:00 82 mm[Hg] [facility] BP Systolic 2020-09-16 10:00:00 166 mm[Hg] [facility] Oxygen saturation by 2020-09-16 10:00:00 95 /min [facility] Pulse oximetry [facility] Heart Rate 2020-09-16 10:00:00 82 /min [facility] Respiratory rate 2020-09-16 10:00:00 20 /min [facility] Body Temperature 2020-09-16 10:00:00 98.4 [degF] [facility] BP Diastolic 2020-09-16 09:00:00 82 mm[Hg] [facility] BP Systolic 2020-09-16 09:00:00 166 mm[Hg] [facility] Oxygen saturation by 2020-09-16 09:00:00 95 /min [facility] P[facility] Heart Rate 2020-09-16 09:00:00 82 /min [facility] Respiratory rate 2020-09-16 09:00:00 20 /min [facility] BP Diastolic 2020-09-16 08:00:00 77 mm[Hg] [facility] BP Systolic 2020-09-16 08:00:00 197 mm[Hg] [facility] Oxygen saturation by 2020-09-16 08:00:00 94 /min [facility] Pulse oximetry [facility] Heart Rate 2020-09-16 08:00:00 79 /min [facility] Center Respiratory rate 2020-09-16 08:00:00 23 /min [facility] BP Diastolic 2020-09-16 07:00:00 110 mm[Hg] [facility] BP Systolic 2020-09-16 07:00:00 173 mm[Hg] [facility] Oxygen saturation by 2020-09-16 07:00:00 95 /min [facility] Pulse oximetry [facility] Heart Rate 2020-09-16 07:00:00 73 /min [facility] Patient [facility] Respiratory rate 2020-09-16 07:00:00 20 /min [facility] Body Temperature 2020-09-16 07:00:00 98.4 [degF] [facility] BP Diastolic 2020-09-16 06:00:00 78 mm[Hg] [facility] BP Systolic 2020-09-16 06:00:00 178 mm[Hg] [facility] Oxygen saturation by 2020-09-16 06:00:00 93 /min [facility] Pulse oximetry [facility] Heart Rate 2020-09-16 06:00:00 87 /min [facility] Respiratory rate 2020-09-16 06:00:00 19 /min [facility] BP Diastolic 2020-09-16 05:00:00 71 mm[Hg] [facility] BP Systolic 2020-09-16 05:00:00 150 mm[Hg] [facility] Oxygen saturation by 2020-09-16 05:00:00 96 /min [facility] Pulse oximetry [facility] Heart Rate 2020-09-16 05:00:00 89 /min [facility] Respiratory rate 2020-09-16 05:00:00 22 /min [facility] BP Diastolic 2020-09-16 04:00:00 71 mm[Hg] [facility] BP Systolic 2020-09-16 04:00:00 139 mm[Hg] [facility] Oxygen saturation by 2020-09-16 04:00:00 96 /min [facility] P[facility] Heart Rate 2020-09-16 04:00:00 85 /min [facility] Patient [facility] Respiratory rate 2020-09-16 04:00:00 16 /min [facility] BP Diastolic 2020-09-16 03:00:00 69 mm[Hg] [facility] BP Systolic 2020-09-16 03:00:00 135 mm[Hg] [facility] Oxygen saturation by 2020-09-16 03:00:00 95 /min [facility] Pulse oximetry [facility] Heart Rate 2020-09-16 03:00:00 82 /min [facility] Respiratory rate 2020-09-16 03:00:00 15 /min [facility] Body Temperature 2020-09-16 03:00:00 98.5 [degF] [facility] BP Diastolic 2020-09-16 02:00:00 66 mm[Hg] [facility] BP Systolic 2020-09-16 02:00:00 140 mm[Hg] [facility] Oxygen saturation by 2020-09-16 02:00:00 95 /min [facility] Pulse oximetry Patient [facility] Heart Rate 2020-09-16 02:00:00 83 /min [facility] Respiratory rate 2020-09-16 02:00:00 17 /min [facility] BP Diastolic 2020-09-16 01:00:00 70 mm[Hg] [facility] BP Systolic 2020-09-16 01:00:00 164 mm[Hg] [facility] Oxygen saturation by 2020-09-16 01:00:00 96 /min [facility] Pulse oximetry Patient [facility] Heart Rate 2020-09-16 01:00:00 84 /min [facility] Respiratory rate 2020-09-16 01:00:00 20 /min [facility] BP Diastolic 2020-09-16 00:00:00 86 mm[Hg] [facility] BP Systolic 2020-09-16 00:00:00 173 mm[Hg] [facility] Oxygen saturation by 2020-09-16 00:00:00 94 /min [facility] Pulse oximetry Patient [facility] Heart Rate 2020-09-16 00:00:00 77 /min [facility] Respiratory rate 2020-09-16 00:00:00 20 /min [facility] Body Temperature 2020-09-16 00:00:00 98.6 [degF] [facility] BP Diastolic 2020-09-15 23:00:00 59 mm[Hg] [facility] BP Systolic 2020-09-15 23:00:00 143 mm[Hg] [facility] Oxygen saturation by 2020-09-15 23:00:00 95 /min [facility] Pulse [facility]ximetry [facility] Heart Rate 2020-09-15 23:00:00 79 /min [facility] Respiratory rate 2020-09-15 23:00:00 18 /min [facility] BP Diastolic 2020-09-15 22:00:00 55 mm[Hg] [facility] BP Systolic 2020-09-15 22:00:00 133 mm[Hg] [facility] Oxygen saturation by 2020-09-15 22:00:00 94 /min [facility] Pulse oximetry Patient [facility] Heart Rate 2020-09-15 22:00:00 78 /min [facility] Respiratory rate 2020-09-15 22:00:00 17 /min [facility] BP Diastolic 2020-09-15 21:00:00 56 mm[Hg] [facility] BP Systolic 2020-09-15 21:00:00 145 mm[Hg] [facility] Oxygen saturation by 2020-09-15 21:00:00 93 /min [facility] Pulse [facility]xim[facility] Heart Rate 2020-09-15 21:00:00 79 /min [facility] Respiratory rate 2020-09-15 21:00:00 17 /min [facility] Oxygen saturation by 2020-09-15 20:50:00 94 /min [facility] Pulse oximetry Patient [facility] Heart Rate 2020-09-15 20:50:00 81 /min [facility] Respiratory rate 2020-09-15 20:50:00 18 /min [facility] BP Diastolic 2020-09-15 20:00:00 56 mm[Hg] [facility] BP Systolic 2020-09-15 20:00:00 165 mm[Hg] [facility] Oxygen saturation by 2020-09-15 20:00:00 97 /min [facility] Pulse oximetry Patient [facility] Heart Rate 2020-09-15 20:00:00 76 /min [facility] Respiratory rate 2020-09-15 20:00:00 22 /min [facility] Oxygen saturation by 2020-09-15 19:00:00 96 /min [facility] Pulse oximetry Patient [facility] Respiratory rate 2020-09-15 19:00:00 14 /min [facility] Body Temperature 2020-09-15 19:00:00 98.7 [degF] [facility] BP Diastolic 2020-09-15 18:00:00 115 mm[Hg] [facility] BP Systolic 2020-09-15 18:00:00 154 mm[Hg] [facility] Oxygen saturation by 2020-09-15 18:00:00 94 /min [facility] Pulse oximetry Patient [facility] Heart Rate 2020-09-15 18:00:00 79 /min [facility] Respiratory rate 2020-09-15 18:00:00 19 /min [facility] BP Diastolic 2020-09-15 17:00:00 65 mm[Hg] [facility] BP Systolic 2020-09-15 17:00:00 154 mm[Hg] [facility] Oxygen saturation by 2020-09-15 17:00:00 95 /min [facility] Heart Rate 2020-09-15 17:00:00 71 /min [facility] Respiratory rate 2020-09-15 17:00:00 18 /min [facility] BP Diastolic 2020-09-15 16:00:00 75 mm[Hg] [facility] BP Systolic 2020-09-15 16:00:00 159 mm[Hg] [facility] Oxygen saturation by 2020-09-15 16:00:00 94 /min [facility] P[facility] Heart Rate 2020-09-15 16:00:00 75 /min [facility] Respiratory rate 2020-09-15 16:00:00 16 /min [facility] BP Diastolic 2020-09-15 15:14:00 71 mm[Hg] [facility] BP Systolic 2020-09-15 15:14:00 169 mm[Hg] [facility] Oxygen saturation by 2020-09-15 15:14:00 100 /min [facility] Pulse oximetry Patient [facility] Heart Rate 2020-09-15 15:14:00 75 /min [facility] Body Temperature 2020-09-15 15:14:00 97.7 [degF] [facility] BP Diastolic 2020-09-15 15:10:00 66 mm[Hg] [facility] BP Systolic 2020-09-15 15:10:00 156 mm[Hg] [facility] Oxygen saturation by 2020-09-15 15:10:00 100 /min [facility] P[facility] Heart Rate 2020-09-15 15:10:00 74 /min [facility] Respiratory rate 2020-09-15 15:10:00 18 /min [facility] BP Diastolic 2020-09-15 14:50:00 84 mm[Hg] [facility] BP Systolic 2020-09-15 14:50:00 176 mm[Hg] [facility] Oxygen saturation by 2020-09-15 14:50:00 100 /min [facility] Pulse [facility]ximetry Patient [facility] Heart Rate 2020-09-15 14:50:00 81 /min [facility] Patient [facility] Respiratory rate 2020-09-15 14:50:00 18 /min [facility] BP Diastolic 2020-09-15 14:40:00 94 mm[Hg] [facility] BP Systolic 2020-09-15 14:40:00 200 mm[Hg] [facility] Oxygen saturation by 2020-09-15 14:40:00 97 /min [facility] Pulse oximetry Patient [facility] Heart Rate 2020-09-15 14:40:00 96 /min [facility] Respiratory rate 2020-09-15 14:40:00 16 /min [facility] BP Diastolic 2020-09-15 14:25:00 96 mm[Hg] [facility] BP Systolic 2020-09-15 14:25:00 175 mm[Hg] [facility] Oxygen saturation by 2020-09-15 14:25:00 98 /min [facility] Pulse oximetry Patient [facility] Heart Rate 2020-09-15 14:25:00 99 /min [facility] Respiratory rate 2020-09-15 14:25:00 16 /min [facility] Body Temperature 2020-09-15 14:25:00 98.0 [degF] [facility] BP Diastolic 2020-09-15 11:14:00 67 mm[Hg] [facility] BP Systolic 2020-09-15 11:14:00 177 mm[Hg] [facility] Oxygen saturation by 2020-09-15 11:14:00 94 /min [facility] Pulse oximetry Patient [facility] Heart Rate 2020-09-15 11:14:00 70 /min [facility] Respiratory rate 2020-09-15 11:14:00 18 /min [facility] Body Temperature 2020-09-15 11:14:00 97.6 [degF] [facility] BP Diastolic 2020-09-15 08:52:00 75 mm[Hg] [facility] BP Systolic 2020-09-15 08:52:00 171 mm[Hg] [facility] Oxygen saturation by 2020-09-15 08:52:00 92 /min [facility] Pulse oximetry Patient [facility] Heart Rate 2020-09-15 08:52:00 74 /min [facility] Respiratory rate 2020-09-15 08:52:00 18 /min [facility] Body Temperature 2020-09-15 08:52:00 97.6 [degF] [facility] BP Diastolic 2020-09-15 07:45:00 75 mm[Hg] [facility] BP Systolic 2020-09-15 07:45:00 171 mm[Hg] [facility] Oxygen saturation by 2020-09-15 07:45:00 92 /min [facility] Pulse oximetry Patient [facility] Heart Rate 2020-09-15 07:45:00 74 /min [facility] Respiratory rate 2020-09-15 07:45:00 18 /min [facility] Body Temperature 2020-09-15 07:45:00 97.6 [degF] [facility] BP Diastolic 2020-09-15 04:00:00 56 mm[Hg] [facility] BP Systolic 2020-09-15 04:00:00 156 mm[Hg] [facility] Oxygen saturation by 2020-09-15 04:00:00 93 /min [facility] Pulse oximetry Patient [facility] Heart Rate 2020-09-15 04:00:00 68 /min [facility] Respiratory rate 2020-09-15 04:00:00 18 /min [facility] Body Temperature 2020-09-15 04:00:00 98.4 [degF] [facility] BP Diastolic 2020-09-15 00:00:00 71 mm[Hg] [facility] BP Systolic 2020-09-15 00:00:00 140 mm[Hg] [facility] Oxygen saturation by 2020-09-15 00:00:00 94 /min [facility] Pulse oximetry Patient [facility] Heart Rate 2020-09-15 00:00:00 72 /min [facility] Respiratory rate 2020-09-15 00:00:00 18 /min [facility] Body Temperature 2020-09-15 00:00:00 98.4 [degF] [facility] BP Diastolic 2020-09-14 20:27:00 80 mm[Hg] [facility] BP Systolic 2020-09-14 20:27:00 180 mm[Hg] [facility] Oxygen saturation by 2020-09-14 20:27:00 92 /min [facility] Pulse oximetry Patient [facility] Heart Rate 2020-09-14 20:27:00 90 /min [facility] Respiratory rate 2020-09-14 20:27:00 20 /min [facility] Body Temperature 2020-09-14 20:27:00 98.5 [degF] [facility] BP Diastolic 2020-09-14 20:00:00 80 mm[Hg] [facility] BP Systolic 2020-09-14 20:00:00 180 mm[Hg] [facility] Oxygen saturation by 2020-09-14 20:00:00 92 /min [facility] Pulse oximetry Patient [facility] Heart Rate 2020-09-14 20:00:00 90 /min [facility] Respiratory rate 2020-09-14 20:00:00 20 /min [facility] Body Temperature 2020-09-14 20:00:00 98.5 [degF] [facility] BP Diastolic 2020-09-14 15:47:00 82 mm[Hg] [facility] BP Systolic 2020-09-14 15:47:00 155 mm[Hg] [facility] Oxygen saturation by 2020-09-14 15:47:00 95 /min [facility] Pulse oximetry Patient [facility] Heart Rate 2020-09-14 15:47:00 85 /min [facility] Respiratory rate 2020-09-14 15:47:00 16 /min [facility] Body Temperature 2020-09-14 15:47:00 98.1 [degF] [facility] BP Diastolic 2020-09-14 11:15:00 73 mm[Hg] [facility] BP Systolic 2020-09-14 11:15:00 165 mm[Hg] [facility] Oxygen saturation by 2020-09-14 11:15:00 93 /min [facility] Pulse oximetry Patient [facility] Heart Rate 2020-09-14 11:15:00 89 /min [facility] Respiratory rate 2020-09-14 11:15:00 19 /min [facility] Body Temperature 2020-09-14 11:15:00 98.3 [degF] [facility] BP Diastolic 2020-09-14 07:49:00 67 mm[Hg] [facility] BP Systolic 2020-09-14 07:49:00 166 mm[Hg] [facility] Oxygen saturation by 2020-09-14 07:49:00 93 /min [facility] Pulse oximetry [facility] Heart Rate 2020-09-14 07:49:00 88 /min [facility] Respiratory rate 2020-09-14 07:49:00 18 /min [facility] Body Temperature 2020-09-14 07:49:00 97.9 [degF] [facility] BP Diastolic 2020-09-14 07:31:00 67 mm[Hg] [facility] BP Systolic 2020-09-14 07:31:00 166 mm[Hg] [facility] Oxygen saturation by 2020-09-14 07:31:00 93 /min [facility] Pulse oximetry Patient [facility] Heart Rate 2020-09-14 07:31:00 88 /min [facility] Respiratory rate 2020-09-14 07:31:00 18 /min [facility] Body Temperature 2020-09-14 07:31:00 97.9 [degF] [facility] BP Diastolic 2020-09-14 04:00:00 74 mm[Hg] [facility] BP Systolic 2020-09-14 04:00:00 175 mm[Hg] [facility] Oxygen saturation by 2020-09-14 04:00:00 94 /min [facility] Pulse oximetry Patient [facility] Heart Rate 2020-09-14 04:00:00 94 /min [facility] Respiratory rate 2020-09-14 04:00:00 18 /min [facility] Body Temperature 2020-09-14 04:00:00 97.9 [degF] [facility] BP Diastolic 2020-09-14 00:00:00 77 mm[Hg] [facility] BP Systolic 2020-09-14 00:00:00 178 mm[Hg] [facility] Oxygen saturation by 2020-09-14 00:00:00 95 /min [facility] Pulse oximetry Patient [facility] Heart Rate 2020-09-14 00:00:00 90 /min [facility] Respiratory rate 2020-09-14 00:00:00 18 /min [facility] Body Temperature 2020-09-14 00:00:00 98.1 [degF] [facility] BP Diastolic 2020-09-13 20:12:00 84 mm[Hg] [facility] BP Systolic 2020-09-13 20:12:00 177 mm[Hg] [facility] Oxygen saturation by 2020-09-13 20:12:00 94 /min [facility] Pulse oximetry Patient [facility] Heart Rate 2020-09-13 20:12:00 88 /min [facility] Respiratory rate 2020-09-13 20:12:00 18 /min [facility] Body Temperature 2020-09-13 20:12:00 97.8 [degF] [facility] BP Diastolic 2020-09-13 20:00:00 84 mm[Hg] [facility] BP Systolic 2020-09-13 20:00:00 177 mm[Hg] [facility] Oxygen saturation by 2020-09-13 20:00:00 94 /min [facility] Heart Rate 2020-09-13 20:00:00 88 /min [facility] Respiratory rate 2020-09-13 20:00:00 18 /min [facility] Body Temperature 2020-09-13 20:00:00 97.8 [degF] [facility] BP Diastolic 2020-09-13 16:11:00 82 mm[Hg] [facility] BP Systolic 2020-09-13 16:11:00 140 mm[Hg] [facility] Oxygen saturation by 2020-09-13 16:11:00 94 /min [facility] Pulse oximetry Patient [facility] Heart Rate 2020-09-13 16:11:00 78 /min [facility] Respiratory rate 2020-09-13 16:11:00 18 /min [facility] Body Temperature 2020-09-13 16:11:00 98.1 [degF] [facility] BP Diastolic 2020-09-13 12:08:00 84 mm[Hg] [facility] BP Systolic 2020-09-13 12:08:00 172 mm[Hg] [facility] Oxygen saturation by 2020-09-13 12:08:00 94 /min [facility] Pulse oximetry Patient [facility] Heart Rate 2020-09-13 12:08:00 82 /min [facility] Respiratory rate 2020-09-13 12:08:00 17 /min [facility] Body Temperature 2020-09-13 12:08:00 98.2 [degF] [facility] BP Diastolic 2020-09-13 11:16:00 79 mm[Hg] [facility] BP Systolic 2020-09-13 11:16:00 151 mm[Hg] [facility] Patient [facility] Oxygen saturation by 2020-09-13 11:16:00 95 /min [facility] Pulse oximetry Patient [facility] Heart Rate 2020-09-13 11:16:00 79 /min [facility] Respiratory rate 2020-09-13 11:16:00 18 /min [facility] Body Temperature 2020-09-13 11:16:00 97.4 [degF] [facility] BP Diastolic 2020-09-13 08:45:00 79 mm[Hg] [facility] BP Systolic 2020-09-13 08:45:00 151 mm[Hg] [facility] Oxygen saturation by 2020-09-13 08:45:00 95 /min [facility] Pulse oximetry Patient [facility] Heart Rate 2020-09-13 08:45:00 79 /min [facility] Respiratory rate 2020-09-13 08:45:00 18 /min [facility] Body Temperature 2020-09-13 08:45:00 97.4 [degF] [facility] BP Diastolic 2020-09-13 04:00:00 82 mm[Hg] [facility] BP Systolic 2020-09-13 04:00:00 179 mm[Hg] [facility] Oxygen saturation by 2020-09-13 04:00:00 92 /min [facility] Pulse oximetry Patient [facility] Heart Rate 2020-09-13 04:00:00 87 /min [facility] Respiratory rate 2020-09-13 04:00:00 20 /min [facility] Body Temperature 2020-09-13 04:00:00 97.9 [degF] [facility] BP Diastolic 2020-09-13 00:00:00 79 mm[Hg] [facility] BP Systolic 2020-09-13 00:00:00 150 mm[Hg] [facility] Oxygen saturation by 2020-09-13 00:00:00 93 /min [facility] Pulse oximetry Patient [facility] Heart Rate 2020-09-13 00:00:00 76 /min [facility] Patient [facility] Respiratory rate 2020-09-13 00:00:00 20 /min [facility] Body Temperature 2020-09-13 00:00:00 98.7 [degF] [facility] BP Diastolic 2020-09-12 22:28:00 92 mm[Hg] [facility] BP Systolic 2020-09-12 22:28:00 150 mm[Hg] [facility] Oxygen saturation by 2020-09-12 22:28:00 95 /min [facility] Pulse oximetry Patient [facility] Heart Rate 2020-09-12 22:28:00 96 /min [facility] Respiratory rate 2020-09-12 22:28:00 18 /min [facility] Body Temperature 2020-09-12 22:28:00 97.9 [degF] [facility] BP Diastolic 2020-09-12 22:18:00 92 mm[Hg] [facility] BP Systolic 2020-09-12 22:18:00 150 mm[Hg] [facility] Oxygen saturation by 2020-09-12 22:18:00 95 /min [facility] Pulse [facility]ximetry [facility] Heart Rate 2020-09-12 22:18:00 96 /min [facility] Respiratory rate 2020-09-12 22:18:00 18 /min [facility] Body Temperature 2020-09-12 22:18:00 97.9 [degF] [facility] BP Diastolic 2020-09-12 20:23:00 92 mm[Hg] [facility] BP Systolic 2020-09-12 20:23:00 150 mm[Hg] [facility] Oxygen saturation by 2020-09-12 20:23:00 96 /min [facility] Pulse oximetry Patient [facility] Heart Rate 2020-09-12 20:23:00 95 /min [facility] Respiratory rate 2020-09-12 20:23:00 18 /min [facility] Body Temperature 2020-09-12 20:23:00 97.9 [degF] [facility] Oxygen saturation by 2020-09-12 20:11:00 96 /min [facility] Pulse oximetry Patient [facility] Oxygen saturation by 2020-09-12 18:25:00 98 /min [facility] Pulse oximetry Patient [facility] Oxygen saturation by 2020-09-12 15:35:00 98 /min [facility] Pulse oximetry Patient [facility] Procedures Procedure Date / Time Performing Clinician Source Performed XR CHEST 1 VW PORTABLE 2021-07-12 01:01:53 Freeman Crabtree [facility] COVID-19 ANTI-SPIKE IGG 2021-07-11 10:41:00 [facility] ANTIBODY TITER COVID-19 SEROLOGY PATIENT 2021-07-11 10:41:00 [facility] HC COMPLETE BLD COUNT 2021-07-11 10:41:00 [facility] W/AUTO DIFF BASIC METABOLIC PANEL 2021-07-11 10:41:00 [facility] ESTIMATED GFR 2021-07-11 10:41:00 [facility] URINE CULTURE 2021-07-11 06[facility]57[facility] URINALYSIS SCREEN AND 2021-07-11 04:07[facility]00 [facility] MICROSCOPY, WITH REFLEX TO CULTURE POC GLUCOSE 2021-07-11 00:27:00 [facility] POC GLUCOSE 2021-07-10 14:52:00 [facility] [facility] HC COMPLETE BLD COUNT 2021-07-10 10:51:00 [facility] W/AUTO DIFF BASIC METABOLIC PANEL 2021-07-10 10:51:00 [facility] ESTIMATED GFR 2021-07-10 10:51:00 [facility] POC GLUCOSE 2021-07-10 02:09:00 [facility] CT CHEST WO CONTRAST 2021-07-09 21:47:19 [facility] HC COMPLETE BLD COUNT 2021-07-09 11:14:00 [facility] W/AUTO DIFF BASIC METABOLIC PANEL 2021-07-09 11:14:00 [facility] ESTIMATED GFR 2021-07-09 11:14:00 [facility] BLOOD CULTURE, AEROBIC & 2021-07-09 08:54:00 [facility] ANAEROBIC Trav R. TROPONIN T 2021-07-09 07:57:00 [facility] THYROID STIMULATING 2021-07-09 07:57:00 [facility] HORMONE T4, FREE 2021-07-09 07:57:00 [facility] LIPID PANEL 2021-07-09 07:57:00 [facility] INTERLEUKIN 6 2021-07-09 07:57:00 [facility] CRP HIGH SENSITIVITY 2021-07-09 07:57:[address] [facility] LDH 2021-07-09 07:57:00 [facility] D-DIMER 2021-07-09 07:57:00 [facility] PROCALCITONIN 2021-07-09 07:57:00 [facility] PROTHROMBIN TIME WITH INR 2021-07-09 07:57:00 [facility] SEDIMENTATION RATE 2021-07-09 07:57:00 [facility] FERRITIN LEVEL 2021-07-09 07:57:00 [facility] ECG 12-LEAD 2021-07-09 06:58:43 [facility] XR CHEST 1 VW PORTABLE 2021-07-09 05:32:00 [facility] Trav R. TROPONIN T 2021-07-09 04:50:00 [facility] CT HEAD WO CONTRAST 2021-07-09 01:50:00 [facility] Trav R. COVID-19 QUALITATIVE 2021-07-09 01:34:00 [facility] RT-PCR Trav R. COVID-19 OMICRON VARIANT 2021-07-09 01:34:00 [facility] QUALITATIVE RT-PCR Trav R. HC COMPLETE BLD COUNT 2021-07-09 01:34:00 [facility] W/AUTO DIFF Trav R. PROTHROMBIN TIME WITH INR 2021-07-09 01:34:00 [facility] Trav R. PARTIAL THROMBOPLASTIN 2021-07-09 01:34:00 [facility] TIME (PTT) Trav R. BASIC METABOLIC PANEL 2021-07-09 01:34:00 [facility] Trav R. TROPONIN T 2021-07-09 01:34:00 [facility] B NATRIURETIC PEPTIDE 2021-07-09 01:34:00 [facility] Trav R. ESTIMATED GFR 2021-07-09 01:34:00 [facility] spital Trav R. ECG 12-LEAD 2021-07-08 22:51:26 [facility] spital Trav R. CT RENAL STONE PROTOCOL 2021-07-01 18:38:22 [facility] URINALYSIS 2021-07-01 18:13:00 [facility] HC COMPLETE BLD COUNT 2021-04-23 10:03:00 [facility] DIFF BASIC METABOLIC PANEL 2021-04-23 10:03:00 [facility] ESTIMATED GFR 2021-04-23 10:03:00 [facility] CT CARDIAC OVERREAD 2021-04-20 15:36:45 Bebeto [facility] CV CTA CORONARY ARTERIES 2021-04-20 15:36:00 [facility] W CONTRAST HC COMPLETE BLD COUNT 2021-04-20 11:45:00 [facility] W/AUTO DIFF BASIC METABOLIC PANEL 2021-04-20 11:45:00 [facility] ESTIMATED GFR 2021-04-20 11:45:00 [facility] POC GLUCOSE 2021-04-19 13:28:00 [facility] CV CARDIAC PET STRESS 2021-04-19 13:18:51 Bebeto [facility] TEST CV CARDIAC PET MYOCARDIAL 2021-04-19 13:18:[address] [facility] PERFUSION IMAGING TROPONIN 2021-04-19 09:43:00 Jaclyn Tate spital BASIC METABOLIC PANEL 2021-04-19 09:43:00 [facility] ESTIMATED GFR 2021-04-19 09:43:00 Jaclyn Tate spital TTE LIMITED W CONTRAST, W 2021-04-18 17:20:[address] [facility] DOPPLER ([id number]) HC COMPLETE BLD COUNT 2021-04-18 14:31:00 [facility] W/AUTO DIFF BASIC METABOLIC PANEL 2021-04-18 14:31:00 [facility] ESTIMATED GFR 2021-04-18 14:31:00 [facility] B NATRIURETIC PEPTIDE 2021-04-18 09:20:00 Bebeto [facility] HC COMPLETE BLD COUNT 2021-04-16 08:35:00 [facility] W/AUTO DIFF BASIC METABOLIC PANEL 2021-04-16 08:35:00 [facility] ESTIMATED GFR 2021-04-16 08:35:00 [facility] POC GLUCOSE 2021-04-15 15:09:00 [facility] BASIC METABOLIC PANEL 2021-04-14 09:00:00 [facility] ESTIMATED GFR 2021-04-14 09:00:00 [facility] HC COMPLETE BLD COUNT 2021-04-14 08:40:00 [facility] W/AUTO DIFF PARTIAL THROMBOPLASTIN 2021-04-14 08:40:00 Bebeto [facility] TIME (PTT) PARTIAL THROMBOPLASTIN 2021-04-13 22:47:00 Bebeto [facility] TIME (PTT) HC COMPLETE BLD COUNT 2021-04-13 15:52:00 [facility]FF HC COMPLETE BLD COUNT 2021-04-13 11:34:00 [facility] W/AUTO DIFF SMEAR REVIEW 2021-04-13 11:34:00 [facility] HC COMPLETE BLD COUNT 2021-04-13 09:55:00 [facility] W/AUTO DIFF BASIC METABOLIC PANEL 2021-04-13 09:55:00 [facility] B NATRIURETIC PEPTIDE 2021-04-13 09:55:00 Rafy Tateammed [facility] ESTIMATED GFR 2021-04-13 09:55:00 [facility] PARTIAL THROMBOPLASTIN 2021-04-13 09:55:00 Bebeto [facility] TIME (PTT) TROPONIN 2021-04-13 09:00:00 Jaclyn Tate Ho spital PARTIAL THROMBOPLASTIN 2021-04-13 02:20:00 Bebeto [facility] TIME (PTT) TROPONIN 2021-04-12 23:00:00 hCar Palomo Ho spital TROPONIN 2021-04-12 15:34:00 Char Palomo Ho spital PROTHROMBIN TIME WITH INR 2021-04-12 15:34:00 [facility] PART[facility] THROMBOPLASTIN 2021-04-12 15:34:00 Bebeto [facility] TIME (PTT) ANTI XA APIXABAN 2021-04-12 15:34:00 Jaclyn Tate H ospital TTE COMPLETE, WO 2021-04-12 14:14:00 Jaclyn Tate H ospital CONTRAST, W DOPPLER ([id number]) TROPONIN 2021-04-12 09:21:00 [facility] B NATRIURETIC PEPTIDE 2021-04-12 09:21:00 [facility] MAGNESIUM LEVEL 2021-04-12 09:21:00 Char Palomo spital PHOSPHORUS LEVEL 2021-04-12 09:21:00 [facility] XR CHEST 1 VW PORTABLE 2021-04-12 08:46:00 [facility] ECG 12-LEAD 2021-04-12 08:03:09 [facility] COVID-19 ANTI-SPIKE IGG 2021-04-12 08:01:00 [facility] ANTIBODY TITER COVID-19 SEROLOGY PATIENT 2021-04-12 08:01:00 [facility] SURVEILLANCE HC COMPLETE BLD COUNT 2021-04-12 08:01:00 [facility] W/AUTO DIFF BASIC METABOLIC PANEL 2021-04-12 08:01:00 [facility] LIPID PANEL 2021-04-12 08:01:00 [facility] THYROID STIMULATING 2021-04-12 08:01:00 [facility] HORMONE T4, FREE 2021-04-12 08:01:00 [facility] ESTIMATED GFR 2021-04-12 08:01:00 [facility] RESPIRATORY PATHOGEN 2021-04-12 07:27:00 [facility] PANEL WITH COVID-19 RT-PCR US DUPLEX VENOUS LOWER 2021-03-10 01:23:00 [facility] EXTREMITY BILATERAL XR CHEST 1 VW 2021-03-10 00:19:00 [facility]OL[facility] 2021-03-10 00:17:00 [facility] PANEL CBC WITH PLATELET AND 2021-03-10 00:17:00 [facility] DIFFERENTIAL B NATRIURETIC PEP, I-STAT 2021-03-10 00:17:00 [facility] TROPONIN, I-STAT 2021-03-10 00:17:00 Ofelia Celestinist H ospital ESTIMATED GFR 2021-03-10 00:17:00 Fawad Ofelia [facility] spital MANUAL DIFFERENTIAL 2021-03-10 00:17:00 [facility] ECG ED PRELIMINARY 2021-03-10 00:16:14 [facility] INTERPRETATION ECG 12-LEAD 2021-03-09 23:55:17 Fawad Ofelia [facility] spital HC COMPLETE BLD COUNT 2021-02-23 09:51:00 [facility] W/AUTO DIFF BASIC METABOLIC PANEL 2021-02-23 09:51:00 [facility] ESTIMATED GFR 2021-02-23 09:51:00 [facility] HC COMPLETE BLD COUNT 2021-02-22 09:32:00 [facility] W/AUTO DIFF BASIC METABOLIC PANEL 2021-02-22 09:32:00 [facility] ESTIMATED GFR 2021-02-22 09:32:00 [facility] HC COMPLETE BLD COUNT 2021-02-21 09:50:00 [facility] W/AUTO DIFF BASIC METABOLIC PANEL 2021-02-21 09:50:00 [facility] LIPID PANEL 2021-02-21 09:50:00 [facility] ESTIMATED GFR 2021-02-21 09:50:00 [facility] COVID-19 ANTI-SPIKE IGG 2021-02-20 23:58:00 [facility] ANTIBODY TITER COVID-19 SEROLOGY PATIENT 2021-02-20 23:58:00 [facility] SURVEILLANCE THYROID STIMULATING 2021-02-20 23:58:00 [facility] HORMONE T4, FREE 2021-02-20 23:58:00 [facility] FERRITIN LEVEL 2021-02-20 23:58:00 [facility] LDH 2021-02-20 23:58:00 [facility] SEDIMENTATION RATE 2021-02-20 23:58:00 [facility] CRP HIGH SENSITIVITY 2021-02-20 23:58:[address] [facility] INTERLEUKIN 6 2021-02-20 23:58:00 [facility] PROCALCITONIN 2021-02-20 23:58:00 [facility] D-DIMER 2021-02-20 23:58:00 [facility] PROTHROMBIN TIME WITH INR 2021-02-20 23:58:00 [facility] TROPONIN, I-STAT 2021-02-20 15:35:00 [facility] COVID-19 QUALITATIVE 2021-02-20 14:41:00 Osmel Fowler [facility] RT-PCR CT ANGIOGRAM PE CHEST 2021-02-20 13:52:[address] [facility] US DUPLEX VENOUS LOWER 2021-02-20 12:59:12 [facility] EXTREMITY RIGHT Narendra URINALYSIS 2021-02-20 12:35:00 [facility] Narendra XR CHEST 1 VW PORTABLE 2021-02-20 12:15:13 Kb [facility] Narendra BASIC METABOLIC PANEL 2021-02-20 12:10:00 Isaac Quiles [facility] Narendra ESTIMATED GFR 2021-02-20 12:10:00 [facility] Narendra RESPIRATORY PATHOGEN 2021-02-20 12:05:00 Kb [facility] PANEL WITH COVID-19 Narendra RT-PCR COMPREHENSIVE METABOLIC 2021-02-20 11:55:00 [facility] Narendra CBC WITH PLATELET AND 2021-02-20 11:55:00 Kb [facility] DIFFERENTIAL Narendra CREATINE KINASE, TOTAL 2021-02-20 11:55:00 [facility] Narendra TROPONIN, I-STAT 2021-02-20 11:55:00 [facility] ESTIMATED GFR 2021-02-20 11:55:00 Isaac Quiles spital Narendra PROTHROMBIN TIME WITH 2021-02-20 11:55:00 Isaac Quiles [facility] INR, I-STAT Narendra MANUAL DIFFERENTIAL 2021-02-20 11:55:00 Isaac Quiles [facility] Narendra ECG 12-LEAD 2021-02-20 11:33:15 Isaac Quiles spital Narendra ECG ED PRELIMINARY 2021-02-20 11:32:10 Isaac Quiles [facility] INTERPRETATION Narendra PHYSICIAN ORDERS 2021-01-24 05:01:00 Doctor Unassigned, [facility] [place] [facility] CT CERVICAL SPINE WO 2021-01-16 05:11:15 Mumtaz Swanson [facility] CONTRAST Medical Branch CT HEAD WO CONTRAST 2021-01-16 05:11:15 Mumtaz Swanson [facility] NOTICE OF PRIVACY 2021-01-16 04:10:39 Doctor Unassigned, [facility] PRACTICES [place] [facility] CT HEAD WO CONTRAST 2021-01-11 01:54:48 Sushma Juarez [facility] CONSENT/REFUSAL FOR 2021-01-10 23:21:01 Doctor Unassigned, [facility] DIAGNOSIS AND TREATMENT [place] [facility] NOTICE OF PRIVACY 2020-12-29 19:06:49 Doctor Unassigned, [facility] [place] [facility] CONSENT/REFUSAL FOR 2020-12-29 19:06:22 Doctor Unassigned, [facility] DIAGNOSIS AND TREATMENT [place] [facility] ASSIGNMENT OF BENEFITS 2020-12-29 19:06:04 [facility] [place] [facility] ASSIGNMENT OF BENEFITS 2020-12-29 17:51:14 [facility] [place] [facility] HC COMPLETE BLD COUNT 2020-12-03 10:00:00 [facility] V[facility]im [facility] W/AUTO DIFF BASIC METABOLIC PANEL 2020-12-03 09:00:00 [facility] ESTIMATED GFR 2020-12-03 09:00:00 [facility] MRI BRAIN WO CONTRAST 2020-12-02 17:48:00 [facility] BASIC METABOLIC PANEL 2020-12-02 08:52:00 [facility] ESTIMATED GFR 2020-12-02 08:52:00 [facility] HC COMPLETE BLD COUNT 2020-12-02 08:38:00 [facility] W/AUTO DIFF US CAROTID DUPLEX 2020-12-01 20:45:00 [facility] BILATERAL TTE COMPLETE, WO 2020-12-01 16:39:21 [facility] CONTRAST, W DOPPLER ([id number]) HC COMPLETE BLD COUNT 2020-12-01 09:30:00 [facility] W/AUTO DIFF BASIC METABOLIC PANEL 2020-12-01 09:00:00 [facility] ESTIMATED GFR 2020-12-01 09:00:00 [facility] LIPID PANEL 2020-12-01 02:15:00 [facility] THYROID STIMULATING 2020-12-01 02:15:00 [facility] HORMONE T4, FREE 2020-12-01 02:15:00 [facility] TROPONIN 2020-12-01 02:15:00 [facility] HEMOGLOBIN A1C 2020-12-01 01:15:00 [facility] URINALYSIS, AUTOMATED 2020-11-30 22:23:00 [facility] WITH MICROSCOPY [facility] COVID-19 QUALITATIVE 2020-11-30 21:44:[address] [facility] RT-PCR [facility] CT HEAD WO CONTRAST 2020-11-30 19:03:25 [facility] PE CHEST 2020-11-30 19:03:13 [facility] ECG ED PRELIMINARY 2020-11-30 17:08:13 [facility] INTERPRETATION Олег HC COMPLETE BLD COUNT 2020-11-30 16:15:00 [facility] W/AUTO DIFF Олег PROTHROMBIN TIME WITH INR 2020-11-30 16:15:00 [facility] PARTIAL THROMBOPLASTIN 2020-11-30 16:15:00 [facility] TIME (PTT) Олег COMPREHENSIVE METABOLIC 2020-11-30 16:15:00 [facility] PANEL Олег TROPONIN 2020-11-30 16:15:00 [facility] ospital [facility] B NATRIURETIC PEPTIDE 2020-11-30 16:15:00 [facility] Олег ESTIMATED GFR 2020-11-30 16:15:00 [facility] Олег D-DIMER 2020-11-30 16:15:00 [facility] Олег ECG 12-LEAD 2020-11-30 15:58:05 [facility] ospital Олег Computed tomography of 2020-09-20 00:00:00 [facility] Patient chest with contrast [facility] er Exploratory laparotomy 2020-09-15 00:00:00 [facility] Patient [facility] CT of abdomen and pelvis 2020-03-02 00:00:00 [facility] Patient without contrast Medical Center EXTERNAL PROVIDER RECORDS 2019-01-27 05:01:00 Doctor Unassigned, [facility] [place] [facility] Plan of Care Planned Activity Planned Date Details Comments Source Future Scheduled 2021-08-08 65+ PNEUMOCOCCAL [facility] Test 13:10:32 VACCINE (1 of 4 - PCV13) [code = 65+ PNEUMOCOCCAL VACCINE (1 of 4 - PCV13)] Future Scheduled 2021-08-08 SHINGLES VACCINES (#1) [facility] Test 13:10:32 [code = SHINGLES VACCINES (#1)] Future Scheduled 2021-08-08 COVID-19 VACCINE (3 - [facility] Test 13:10:32 Booster for Moderna series) [code = COVID-19 VACCINE (3 - Booster for Moderna series)] Encounters Start End Encounter Admission Attending Care Care Encounter Source Date/Time Date/Time Type Type Clinicians Facility Department ID 2021-04-30 Emergency [facility] [id number] Univers 09:16:44 ity of [facility] 2021-04-30 Emergency [facility] [id number] Univers 08:16:39 [facility] 2020-09-12 Inpatient [facility] [id number] [facility] 15:27:00 -[id number] [facility] 2021-10-21 2021-10-26 Inpatient SITA BECKFORD [facility] [id number] [place] 00:00:00 00:00:[address] 2021-09-16 2021-09-16 Emergency EM Thomas, HCACL TERRI [id number] [facility] 04:48:00 10:42:00 Justice [facility] 2021-09-16 2021-09-16 Emergency EM Thomas, HCACL HCACL [id number] [facility] 04:48:00 10:42:00 Justice 13 [facility] 2021-09-05 2021-09-05 Emergency EM Thomas, HCACL TERRI [id number] [facility] 15:16:00 17:36:00 Justice [facility] 2021-09-05 2021-09-05 Emergency EM Thomas, HCACL HCACL [id number] [facility] 15:16:00 17:36:00 Justice 84 [facility] 2021-07-08 2021-07-13 [facility] Trav Arias 1.2.84 0.1 [id number] Methodi 16:46:00 12:51:00 Encounter Vadim Calix 43674.1.[address] 3.430.2.7 Hospit a .3.555163 l .8 2021-07-08 2021-07-08 Travel 1.2.840.1 1.2.285.745 [id number] Methodi 00:00:00 00:00:[address] 3.430.2.7 0.2.7.3.698 Ho spita .3.039964 084.8 l .8 2021-07-01 2021-07-01 Emergency Renee, 1.2.840.1 [id number] Methodi 11:41:00 13:43:[address] 3.430.2.7 Hospit a .3.223008 l .8 2021-06-18 2021-06-18 Outpatient 2030_Biopsy [place] [id number] [place] 12:38:00 12:38:00 [id number] [facility] 2021-05-03 2021-05-03 Telephone Jessica, 1.2.840.1 [id number] Methodi 00:00:00 00:00:00 Ros R [address]652.1.[address] 3.430.2.7 Hospit a .3.687546 l .8 2021-04-11 2021-04-23 Hospital Anupam, 1.2.840.1 [id number] Methodi 23:25:00 17:41:00 Encounter Vadim LeonardChun 36938.1.[address] 3.430.2.7 Hospit a .3.480538 l .8 2021-04-19 2021-04-19 Hospital Bebeto, 1.2.840.1 [id number] Methodi 07:00:00 23:59:00 Encounter Jaclyn 20541.1.1 627 s t 3.430.2.7 Hospit a .3.814339 l .8 2021-03-09 2021-03-09 Emergency Ofelia Celestin 1.2.840.1 [id number] Methodi 18:40:00 21:02:[address] 3.430.2.7 Hospit a .3.513234 l .8 2021-03-09 2021-03-09 Travel 1.2.840.1 1.2.630.120 [id number] Methodi 00:00:00 00:00:[address] 3.430.2.7 0.2.7.3.698 Ho spita .3.081355 084.8 l .8 2021-02-20 2021-02-23 Hospital Osmel FowlerChun 1.2.840.1 [id number] Methodi 06:07:00 13:24:00 Encounter Vadim Calix 58935.1.[address] 3.430.2.7 Hospit a .3.546057 l .8 2021-02-20 2021-02-20 Travel 1.2.840.1 1.2.302.497 [id number] Methodi 00:00:00 00:00:[address] 3.430.2.7 0.2.7.3.698 Ho spita .3.430773 084.8 l .8 2021-01-30 2021-01-30 [facility] [id number] Univers 14:30:00 14:30:00 WONDIFUL ity o f [facility] 2021-01-24 2021-01-24 Diagnostic Radiologic Technologist Carolyn, [facility] 1.2.8 40.114 [id number] Univers 15:50:12 16:05:12 Visit David Cruz 350.1.13.1 0 [place] Profess[place] [id number] De [address] 2021-01-24 2021-01-24 Outpatient R [facility] [id number] Univers 16:00:00 16:00:00 [id number] ity [facility] 2021-01-24 2021-01-24 Outpatient R ANTHONY [facility] [id number] Univers 16:00:00 16:00:00 DAVID ity [facility] 2021-01-24 2021-01-24 Orders Doctor DAVID 1.2.840.114 [id number] Univers 00:00:00 00:00:00 Only Unassigned, GREGORY 350.1.13.10 ity of [place] [facility] 4.2.7.2.686 Flash as [id number] [address] 2021-01-15 2021-01-16 Emergency , [facility] 1.2.822.139 [id number] Univers 23:22:00 03:17:00 Mumtaz Rivka 350.1.13.10 i ty of [place] 4.2.7.2.686 [facility] [id number] [facility] 084 Branch 2021-01-10 2021-01-10 Emergency Sagar Holland [facility] 1.2.840.114 [id number] Univers 18:49:00 22:03:00 May Rivka 350.1.13.10 i ty of [place] 4.2.7.2.686 [facility] [id number] [facility] [address]84 [place] 2020-12-29 2020-12-29 Hospital [facility] 1.2.840.114 [id number] Univers 14:04:19 23:59:00 Encounter Melody A Rivka 350.1.13.10 ity of [place] 4.2.7.2.686 [facility] [id number] [facility] [address] [place] 2020-12-29 2020-12-29 Hospital [facility] 1.2.840.114 [id number] Univers 14:00:00 14:03:00 Encounter Melody Dodson Rivka 350.1.13.10 ity of [place] 4.2.7.2.686 [facility] [id number] [facility] [address] [place] 2020-12-29 2020-12-29 [id number] Univers 14:00:00 14:00:00 MELODY [id number] ity of [facility] 2020-12-29 2020-12-29 Office [facility] 1.2.840.114 [id number] Univers 12:52:54 13:35:06 Visit Melody Luna 350.1.13.10 i ty of [place] 4.2.7.2.686 Flash Professio [phone] [address] Office [address] 2020-12-29 2020-12-29 [facility] 1.2.840.114 [id number] 12:52:54 13:35:06 Visit Melody Dodson [facility] 350.1.13.10 [place] 4.2.7.2.686 [facility] [phone] nal 0[address] 2020-12-29 2020-12-29 Outpatient Rebecca LYNNVAL [facility] [id number] Univers 13:00:00 13:00:00 MELODY miller of [facility] 2020-12-29 2020-12-29 Orders Doctor DAVID 1.2.840.114 [id number] Univers 00:00:00 00:00:00 Only Unassigned, GREGORY 350.1.13.10 ity [place] [facility] 4.2.7.2.686 Flash as [phone] [address] 2020-11-30 2020-12-04 [facility] Elliot Parkinson 1.2.840.1 [id number] Methodi 10:51:00 15:23:00 Encounter Vadim Calix 81546.1.[address] 3.430.2.7 Hospit a .3.550050 l .8 2020-11-30 2020-11-30 Travel 1.2.840.1 1.2.122.879 [id number] Methodi 00:00:00 00:00:[address] 3.430.2.7 0.2.7.3.698 Ho spita .3.698052 084.8 l .8 2020-09-12 2020-09-28 Discharged 1 YENY, [facility] [id number] 19:18:00 13:20:00 Inpatient SOUHEIL Patients 99 [facility] 2020-03-02 2020-03-02 Outpatient [facility] [id number] 14:00:00 14:00:00 [id number] [facility] 2020-03-02 2020-03-02 Registered 3 SAINI, [facility] [id number] 13:32:00 13:32:00 Clinic JEANNINE Patients 29 [facility] 2020-02-24 2020-02-24 Outpatient [facility] [id number] 14:00:00 14:00: [facility] 2020-02-23 2020-02-23 Outpatient [facility] [id number] 12:00:00 12:00: [facility] 2019-01-27 2019-01-27 Orders Doctor DAVID 1.2.840.114 [id number] Univers 00:00:00 00:00:00 Only Unassigned, GREGORY 350.1.13.10 it[place] [facility] 4.2.7.2.686 Flash as [id number] [facility] 009 Branch Results Test Description Test Time Test Comments Results Result Comments Source SARS-CoV-2 (COVID-19) RNA [Presence] in Respiratory sp ecimen by 2021-10-25 04:45:54 MARSHA with probe detection Test Item Value Reference Range Interpretation Comme nts SARS-CoV-2 (COVID-19) RNA [Presence] in Respiratory specimen by Not detected MARSHA with probe detection (test code = 94937-0) Whether patient is employed in a healthcare setting (test code = Un known 07368-3) Whether the patient has symptoms related to condition of interest U nknown (test code = 39198-4) Whether the patient was hospitalized for condition of interest Unkn own (test code = 37790-6) Whether the patient was admitted to intensive care unit (ICU) for U nknown condition of interest (test code = 44982-0) Whether patient resides in a congregate care setting (test code = U nknown 83082-1) status (test code = 18341-5) Unknown Date and time of symptom onset (test code = 60235-4) Unknown SARS-CoV-2 (COVID-19) RNA [Presence] in Respiratory specimen by MARSHA with probe jqrhxzprj4486-85-67 22:42:52 Test Item Value Reference Range Interpretation Comments SARS-CoV-2 (COVID-19) RNA Not detected [Presence] in Respiratory specimen by MARSHA with probe detection (test code = 05814-2) Whether patient is employed in a Unknown healthcare setting (test code = 19544-7) Whether the patient has symptoms Unknown related to condition of interest (test code = 48917-0) Whether the patient was Unknown hospitalized for condition of interest (test code = 77996-4) Whether the patient was admitted Unknown to intensive care unit (ICU) for condition of interest (test code = 54973-8) Whether patient resides in a Unknown congregate care setting (test code = 15459-8) status (test code = Unknown 60108-7) Date and time of symptom onset Unknown (test code = 24763-5) - CT C-SPINE W/O [id number] 00:00[facility]00 [facility] 1930 Sex: M Name: JUSTICE HARDY [facility] : 1930 Age/S: 89 / M [address] [place] [address] Unit #: [id number] Loc: [place] [address] Phys: Kezia Tolbert APRNNP Acct: [id number] Dis Date: Status: PRE ER PHONE #: [phone] Exam Date: 09/16/202138 FAX #: [phone] Reason: FALL OUT OF BED, NECK PAIN EXAMS: CPT CODE: [id number] CT C-SPINE W/O CONT 95989 PROCEDURE INFORMATION: Exam: CT Cervical Spine Without [...] Sanchez M.D. CC: Shadi Pritchard MD; Kezia POSADA [facility] Technologist:Maribell Jorge. RT(R)(CT) CTDI: DLP: Trnscb Date/Time: 09/16/2021 (600) [email or web address] Orig Print D/T: S: 09/16/2021 (600) PAGE 1 Signed Report- CT HEAD/BRAIN W/O [id number] 00:00:00 [facility] : 1930 Sex: M Name: JORGE HARDYGO [facility] : 1930 Age/S: 89 / M [address] [place] [address] Unit #: [id number] Loc: [place] [address] Phys: Kezia Tolbert Acct: [id number] Dis Date: Status: PRE ER PHONE #: [phone] Exam Date: 09/16/2021 0538 FAX #: [phone] Reason: FALL OUT OF BED, HEAD INJURY EXAMS: CPT CODE: [id number] CT HEAD/BRAIN W/O CONT 97277 PROCEDURE INFORMATION: Exam: CT Head Without Contrast [...] RT(R)(CT) CTDI: DLP: Trnscb Date/Time: 09/16/2021 (604) [email or web address] Orig Print D/T: S: 09/16/2021 (604) PAGE 1 Signed Report- XR CHEST 1 [id number] 00:00:00 [facility] : 1930 Sex: M FAX: Shadi Rosales MD [phone] [place]: St: [facility] FAX: Kezia Tolbert APR [phone] Name: JUSTICE HARDY [facility] Bill Garcia : 1930 Age/S: 89/M [address] [place] [address] Unit #: [id number] Loc: [place] [address] Phys: Kezia Tolbert APRNNP Acct: [id number] Dis Date: Status: REG ER PHONE #: [phone] Exam Date: 09/16/2021 0601 FAX #: [phone] Reason: FALL OUT OF BED EXAMS: CPT CODE: [id number] XR CHEST 1 V 12427 PROCEDURE INFORMATION: Exam: XR Chest Exam date [...] Hills M.D CC: Shadi Pritchard MD; Kezia NUÑEZP Tomasz Technologist: RT Yolanda(Rebecca) Trnscrd Date/Time/By: (627) : By: [email or web address] Orig Print D/T: S: 09/16/2021 (627) PAGE 1 Signed Report- XR PELVIS 07/01 VIEWS 2021-09-16 00:00:00 [facility] : 1930 Sex: M FAX: Shadi Rosales MD [phone] [place]: St: REG FAX: Kezia Tolbert APR [phone] Name: JORGE HARDYGO [facility] : 1930 Age/S: 89/M [address] [place] [address] Unit #: [id number] Loc: [place] [address] Phys: Kezia Tolbert Acct: [id number] Dis Date: Status: REG ER PHONE #: [phone] Exam Date: 09/16/2021 0603 FAX #: [phone] Reason: PELVIC PAIN EXAMS: CPT CODE: [id number] XR PELVIS 1/2 VIEWS 15056 PROCEDURE INFORMATION: Exam: XR Pelvis Exam date [...] Tolbert Technologist: RT Yolanda(R) Trnscrd Date/Time/By: 09/16/2021 (628) : By: [email or web address] Orig Print D/T: S: 09/16/2021 (628) PAGE 1 Signed Report- XR T-SPINE 3V 2021-09-16 00:00:00 [facility] : 1930 Sex: M FAX: Shadi Rosales MD [phone] [place]: St: REG FAX: Kezia Tolbert APR [phone] Name: JUSTICE HARDY [facility] : 1930 Age/S: 89/M [address] [place] [address] Unit #: [id number] Loc: [place] [address] Phys: Kezia Tolbert APRNNP Acct: [id number] Dis Date: Status: REG ER PHONE #: [phone] Exam Date: 09/16/2021 0604 FAX #: [phone] Reason: BACK PAIN EXAMS: CPT CODE: [id number] XR T-SPINE 3V 16614 PROCEDURE INFORMATION: Exam: XR Thoracic Spine Exam [...] M.D. CC: Shadi Pritchard MD; Kezia POSADA [facility] Technologist: RT Yolanda(Rebecca) Trnscrd Date/Time/By: 09/16/2021 (629) : By: [email or web address] Orig Print D/T: S: 09/16/2021 (629) PAGE 1 Signed Report- XR PELVIS 07/01 [id number] 00:00:00 [facility] : 1930 Sex: M FAX: Justice Guzman MD [phone] [place]: St: [facility] FAX: Shadi Rosales MD [phone] Name: JUSTICE HARDY [facility] : 1930 Age/S: 89/M [address] [place] [address] Unit #: [id number] Loc: [place] [address] Phys: Justice Guzman MD Acct: [id number] Dis Date: Status: REG ER PHONE #: [phone] Exam Date: 09/05/2021 1714 FAX #: [phone] Reason: fall EXAMS: CPT CODE: [id number] XR PELVIS 1/2 VIEWS 25148 PROCEDURE INFORMATION: Exam: XR Pelvis Exam date [...] Justice Guzman MD; Shadi Pritchard MD Technologist: Concepción Loredo RT(R) Trnscrd Date/Time/By: 09/05/2021 (1720) : By: Shantel Orig Print D/T: S: 09/05/2021 (1721) PAGE 1 Signed Report- CT HEAD/BRAIN W/O [id number] 00:00:00 [facility] : 1930 Sex: M Name: JUSTICE HARDY [facility] : 1930 Age/S: 89 / M [address] [place] [address] Unit #: [id number] Loc: [place] [address] Phys: Tierney Cruz Acct: [id number] Dis Date: Status: REG ER PHONE #: [phone] Exam Date: 09/05/2021 1604 FAX #: [phone] Reason: FALL FROM CHAIR, HEAD PAIN, ON ELIQUIS EXAMS: CPT CODE: [id number] CT HEAD/BRAIN W/O CONT 90774 PROCEDURE INFORMATION: Exam: CT Head Without Contrast [...] 1 Signed Report (CONTINUED) Name: JUSTICE HARDY [facility] [place] : 1930 Age/S: 89 / M [address] [place] [address] Unit #: [id number] Loc: [place] [address] Phys: Tierney Cruz ALBINO Acct: [id number] Dis Date: Status: REG ER PHONE #: [phone] Exam Date: 09/05/2021 1604FAX #: [phone] Reason: FALL FROM CHAIR, HEAD PAIN, ON ELIQUIS EXAMS: CPT CODE: [id number] CT HEAD/BRAIN W/O CONT 23577 <Continued> CC: Tierney POSADA [facility] Technologist:Britton Lee, RT(R)(CT) CTDI: DLP: Trnscb Date/Time: 09/05/2021 (1622) [email or web address] Orig Print D/T: S: 09/05/2021 (1622) PAGE 2 Signed ReportUrine gmxcskj7740-01-58 07:18:43 Test Item Value Reference Range Interpretation Comments Urine culture (test SEE COMMENT Bacteriu adilia screen code = 0673124) negative. 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 Interpretation Abnormal (test code = 12967-0) [facility] 12 bdvl7587-99-80 21:20:43 Test Item Value Reference Range Interpretation Comments Ventricular rate (test code = 253) Atrial rate (test code = 255) OH interval (test code = 266) QRSD interval [...] for LVH, may be normal variant ( Lannon product )-Septal infarct , age undetermined-Abnormal ECG- [facility] stress ysbm7173-32-52 11:08:47 Test Item Value Reference Range Interpretation Comments Resting HR (test code = 3531615221) Resting BP (test code 132&63 = 9137921455) Peak MET Achieved (test code = 6274025943) Protocol Name (test Lexiscan code = 2081238067) Time in Exercise 00:01:00 Phase (test code = 2967265243) Max Systolic BP (test code = 9212411933) Max Diastolic BP (test code = 4796831262) Max Heart Rate (test code = 3765926963) Max Predicted Heart Rate (test code = 2823195246) Target HR Formula (220 - Age)*100% (test code = 8816377846) Test Indication (test Screening for CAD code = 8959875370) Arrhy During Ex (test code = 7946022111) ECG Interp Before EX (test code = 3563904239) ECG Interp During Ex (test code = 4041407099) Ex Summary Comment (test code = 0649470423) Overall HR Response to Exercise (test code = 6892336047) Overall BP Response To Exercise (test code = 0197264170) Reason for Protocol Complete Termination (test code = 6825860647) Stress Test -Waveform interpreted in Impression (test code report associated with = 3086637150) image study. No interpretation is provided as part of this Stress ECG report.-Electronically Signed By Venu GARCIA, David Camarena ([id number]), society editor Sylvia Henriquez (111) on 04/21/2021 6:08:42 AM [facility] HospitalCT HEAD WO [id number] 01:56:56 No acute intracranial abnormality. CT HEAD [...] and mastoidair cells are clear. Left pseudophakia. [facility], Radiant Results Inft User - [...] cells are clear. Left pseudophakia.IMPRESSIONNo acute intracranial abnormality.[facility] leukocytes automated count (number/volume)2020-09-28 05:25:00 Test Item Value Reference Range Interpretation Comments White Blood Count (test code = 6690-2) 10.37 4.8-10.8 [facility]ney[facility] erythrocytes automated count (number/volume)2020-09-28 05:25:00 Test Item Value Reference Range Interpretation Comments Red Blood Count (test code = 789-8) 3.00 4.3-5.7 [facility]ney[facility] hemoglobin measurement (moles/volume) 2020-09-28 05:25:00 Test Item Value Reference Range Interpretation Comments Hemoglobin (test code = 26235-7) 9.1 14.0-18.0 [facility]neyAutomated blood hematocrit (volume fraction) 2020-09-28 05:25:00 Test Item Value Reference Range Interpretation Comments Hematocrit (test code = 4544-3) 26.0 38.2-49.6 [facility]neyAutom[facility] erythrocyte mean corpuscular volume 2020-09-28 05:25:00 Test Item Value Reference Range [...] [facility] McKinneyRDW UwlSl-Scy6703-75-01 05:25:00 Test Item Value Reference Range Interpretation Comments Red Cell Distribution Width (test code 16.1 11.7-14.4 = 16627-4) [facility] McKinneyAutomated blood platelet count (count/volume) 2020-09-28 05:25:00 Test Item Value Reference Range Interpretation Comments Platelet Count (test code = 777-3) 253 140-360 [facility] McKinneyAutomated blood segmented neutrophil count as percentage of total emsnwcatbs2779-38-09 05:25:00 Test Item Value Reference Range Interpretation Comments Neutrophils (%) (Auto) (test code = 77.9 38.7-80.0 12245-8) [facility]neyAutomated blood lymphocyte count as percentage ot total rsxupohihz3697-25-21 05:25:00 Test Item Value Reference Range Interpretation Comments Lymphocytes (%) (Auto) (test code = 12.3 18.0-39.1 736-9) [facility] McKinneyAutomated blood monocyte count as percentage of total dplbhwueqv1686-86-60 05:25:00 Test Item Value Reference Range Interpretation Comments Monocytes (%) (Auto) (test code = 6.4 4.4-11.3 5905-5) [facility] McKinneyAutomated blood eosinophil count as percentage of total ozkajrbplz3228-00-22 05:25:00 Test Item Value Reference Range Interpretation Comments Eosinophils (%) (Auto) (test code = 1.8 0.0-6.0 713-8) [facility] McKinneyAutomated blood basophil count as percentage of total csesecbdow7093-27-38 05:25:00 Test Item Value Reference Range Interpretation Comments Basophils (%) (Auto) (test code = 0.4 0.0-1.0 706-2) [facility] McKinneyFluoroscopic procedure less than one hour rvqvqdwv9395-88-13 05:25:00 Test Item Value Reference Range Interpretation Comments IM GRANULOCYTES % (test code = IM 1.2 0.0-1.0 GRANULOCYTES %) [facility] McKinneyAutomated blood neutrophil ugfwn2917-76-47 05:25:00 Test Item Value Reference Range Interpretation Comments Neutrophils # (Auto) (test code = 8.1 2.1-6.9 751-8) [facility]neyBlood lymphocytes count (number/volume) 2020-09-28 05:25:00 Test Item Value Reference Range Interpretation Comments Lymphocytes # (Auto) (test code = 1.3 1.0-3.2 39463-6) [facility] McKinneyBlood monocytes automated count (number/volume)2020-09-28 05:25:00 Test Item Value Reference Range Interpretation Comments Monocytes # (Auto) (test code = 742-7) 0.7 0.2-0.8 [facility] McKinneyAutomated blood eosinophil hkurf9009-82-06 05:25:00 Test Item Value Reference Range Interpretation Comments Eosinophils # (Auto) (test code = 0.2 0.0-0.4 711-2) [facility] McKinneyAutomated blood basophil count (count/volume) 2020-09-28 05:25:00 Test Item Value Reference Range Interpretation Comments Basophils # (Auto) (test code = 704-7) 0.0 0.0-0.1 [facility] McKinneyFluoroscopic procedure less than one hour jflkajro7050-99-25 05:25:00 Test Item Value Reference Range Interpretation Comments Absolute Immature Granulocyte (auto 0.12 0-0.1 (test code = Absolute Immature Granulocyte (auto) [facility] sodium measurement (moles/volume)2020-09-28 05:25:00 Test Item Value Reference Range Interpretation Comments Sodium Level (test code = 2951-2) 132 136-145 [facility]er[facility] or plasma potassium measurement (moles/volume)2020-09-28 05:25:00 Test Item Value Reference Range Interpretation Comments Potassium Level (test code = 2823-3) 3.3 3.5-5.1 [facility] or plasma chloride measurement (moles/volume)2020-09-28 05:25:00 Test Item Value Reference Range Interpretation Comments Chloride Level (test code = 2075-0) 106 98-107 [facility]er[facility] or plasma carbon dioxide, total measurement (moles/volume)2020-09-28 05:25:00 Test Item Value Reference Range Interpretation Comments Carbon Dioxide Level (test code = 20 -2028-02) [facility] or plasma anion wwn2911-60-59 05:25:00 Test Item Value Reference Range Interpretation Comments Anion Gap (test code = 85698-0) 9.3 8-16 [facility]er[facility] or plasma urea nitrogen measurement (mass/volume)2020-09-28 05:25:00 Test Item Value Reference Range Interpretation Comments Blood Urea Nitrogen (test code = 18 - 3094-0) [facility] plasma creatinine measurement (mass/volume)2020-09-28 05:25:00 Test Item Value Reference Range Interpretation Comments Creatinine (test code = 2160-0) 0.83 0.72-1.25 [facility] Systemer[facility] or plasma urea nitrogen/creatinine mass eierl6450-88-14 05:25:00 Test Item Value Reference Range Interpretation Comments BUN/Creatinine Ratio (test code = 12-22 3097-3) [facility] McKinneyEstimated glomerular filtration rate (GFR) jjbvzngptgtib1907-31-94 05:25:00 Test Item Value Reference Range Interpretation Comments Estimat Glomerular > 60 See_Comment [Automat ed message] The Filtration Rate (test system which generated code = 090786335) this resul t transmitted reference range : 60-. The reference r duane was not used to int erpret this result as normal/abnormal . [facility] McKinneyGlucose awwonupkdqy4101-92-92 05:25:00 Test Item Value Reference Range Interpretation Comments Glucose Level (test code = ILF0747) 104 74-118 [facility] or plasma calcium measurement (mass/volume)2020-09-28 05:25:00 Test Item Value Reference Range Interpretation Comments Calcium Level (test code = 27687-1) 7.4 8.4-10.2 [facility] Systemer[facility] or plasma total bilirubin measurement (mass/volume)2020-09-28 05:25:00 Test Item Value Reference Range Interpretation Comments Total Bilirubin (test code = 1975-2) 0.7 0.2-1.2 [facility] McKinneyFluoroscopic procedure less than one hour odnzdnnz3851-05-04 05:25:00 Test Item Value Reference Range Interpretation Comments Aspartate Amino Transf (AST/SGOT) (test 74 5-34 code = Aspartate Amino Transf (AST/SGOT)) [facility] Systemer[facility] or plasma alanine aminotransferase measurement (enzymatic activity/volume)2020-09-28 05:25:00 Test Item Value Reference Range Interpretation Comments Alanine Aminotransferase (ALT/SGPT) 107 0-55 (test code = 1742-6) [facility] Systemer[facility] or plasma protein measurement (mass/volume)2020-09-28 05:25:00 Test Item Value Reference Range Interpretation Comments Total Protein (test code = 2885-2) 4.2 6.5-8.1 [facility] Systemer[facility] or plasma albumin measurement (mass/volume)2020-09-28 05:25:00 Test Item Value Reference Range Interpretation Comments Albumin (test code = 1751-7) 1.9 3.5-5.0 [facility] McKinneyPlasma globulin measurement (mass/volume) 2020-09-28 05:25:00 Test Item Value Reference Range Interpretation Comments Globulin (test code = 09663-5) 2.3 2.3-3.5 [facility] Systemer[facility] or plasma albumin/globulin mass ratio 2020-09-28 05:25:00 Test Item Value Reference Range Interpretation Comments Albumin/Globulin Ratio (test code = 0.8 0.8-2.0 1759-0) [facility] Systemer[facility] or plasma alkaline phosphatase measurement (enzymatic activity/volume)2020-09-28 05:25:00 Test Item Value Reference Range Interpretation Comments Alkaline Phosphatase (test code = 100 40-150 6768-6) [facility] McKinneyTroponin I measurement by highly sensitive enzyme ugasivtgood0600-44-13 05:25:00 Test Item Value Reference Range Interpretation Comments Troponin I (test code = 19818-4) 0.109 0-0.300 [facility] McKinneyCHEST SINGLE (PORTABLE)2020-09-26 10:41:00 [facility] : 1930 Sex: M [place] [address] Patient Name: JUSTICE HARDY MR #: [id number] : 1930 Age/Sex: 89/M Req #: [id number] [facility] Physician: ZACHARIAH SAINI MD Ordered by: ARASH CASTORENA MD Report #: [id number] Location: MED/SURG Room/Bed: [facility] Procedure: [id number] DX/CHEST SINGLE (PORTABLE) Exam Date: 09/26/20 Exam [...] AYDEN on 09/26/201047 COPY TO: ARASH CASTORENA [facility] 2 VIEW 2020-09-26 09:13:00 [facility] 1930 Sex: M [facility] [address] [place] [address] Patient Name: JUSTICE HARDY MR #: [id number] : 1930 Age/Sex: 89/M Req #: [id number] Adm Physician: ZACHARIAH SAINI MD Ordered by: JEANNINE SAINI MD Report #: [id number] Location: MED/SURG Room/Bed: [facility] Procedure: [id number] DX/ABDOMEN 2 VIEW Exam Date: 09/26/20 Exam [...] Natriuretic Peptide (test code = 50.2 0-100 23058-4) [facility] amylase measurement (enzymatic activity/volume)2020-09-26 05:17:00 Test Item Value Reference Range Interpretation Comments Amylase Level (test code = 1798-8) 98 25-125 [facility] plasma lipase measurement (enzymatic activity/volume)2020-09-26 05:17:00 Test Item Value Reference Range Interpretation Comments Lipase (test code = 3040-3) 98 8-78 [facility] McKinneyABDOMEN 2 DLKS7247-04-56 23:59:00 [facility] : 1930 Sex: M [facility] [address] [place] [address] Patient Name: JUSTICE HARDY MR #: [id number] : 1930 Age/Sex: 89/M Req #: [id number] Adm Physician: ZACHARIAH SAINI MD Ordered by: JEANNINE SAINI MD Report #: [id number] Location: MED/SURG Room/Bed: [facility] Procedure: [id number] DX/ABDOMEN 2 VIEW Exam Date: 09/24/20 Exam [...] levels are seen in the right hemiabdomen. [place] lucency in the upper abdomen on the upright view projecting over the T12 vertebral body , likely represents pneumoperitoneum IMPRESSION: 1. Overall appearance of postsurgical ileus with diffuse mildly dilated small bowel and distended air distended colon to the level of the rectum. Distal obstruction is not excluded. Recommend radiographic follow-up until resolution. 2. [place] lucency projecting over the T12 vertebral body may represent pneumoperitoneum as seen on recent chest CT, possibly related to recent surgery. Signed by: Patricia Wheat MD on 09/25/2020 12:48 AM Dictated By: TIESHA WHEAT MD Transcribed By: AYDEN on 09/25/2047 COPY TO: JEANNINE SAINIerum or plasma magnesium measurement (mass/volume)2020-09-23 16:40:00 Test Item Value Reference Range Interpretation Comments Magnesium Level (test code = 14841-2) 1.5 1.3-2.1 [facility] McKinneyFluoroscopic procedure less than one hour zjrvkoei6592-03-84 08:51:00 Test Item Value Reference Range Interpretation Comments Differential Total Cells Counted (test 100 code = Differential Total Cells Counted) [facility] blood neutrophils/100 leukocytes 2020-09-22 08:51:00 Test Item Value Reference Range Interpretation Comments Neutrophils % (Manual) (test code = 86 40-74 91768-1) [facility] blood band neutrophils form/100 iecehehyvr8412-82-22 08:51:00 Test Item Value Reference Range Interpretation Comments Band Neutrophils % (test code = 764-1) 0 [facility] blood lymphocytes/100 leukocytes 2020-09-22 08:51:00 Test Item Value Reference Range Interpretation Comments Lymphocytes % (Manual) (test code = 7 19-48 737-7) [facility] blood monocytes/100 leukocytes 2020-09-22 08:51:00 Test Item Value Reference Range Interpretation Comments Monocytes % (Manual) (test code = 7 3.4-9.0 744-3) [facility] McKinneyAutomated reticulocyte count as percentage of total zqihajvxocxi1755-00-94 05:15:00 Test Item Value Reference Range Interpretation Comments Percent Reticulocyte Count (test code = 1.5 0.8-2.2 48173-6) [facility] iron measurement (mass/volume)2020-09-21 05:15:00 Test Item Value Reference Range Interpretation Comments Iron Level (test code = 2498-4) 26 65-175 [facility]er[facility] plasma iron binding capacity measurement (mass/volume)2020-09-21 05:15:00 Test Item Value Reference Range Interpretation Comments Total Iron Binding Capacity (test code 193 261-370 = 2500-7) [facility] plasma iron saturation measurement (mass fraction)2020-09-21 05:15:00 Test Item Value Reference Range Interpretation Comments Percent Iron Saturation (test code = 13 1550 2502-3) [facility] or plasma transferrin measurement (mass/volume)2020-09-21 05:15:00 Test Item Value Reference Range Interpretation Comments Transferrin (test code = 3034-6) 138 174-364 [facility]neyBlood cobalamin (vitamin B12) measurement (mass/volume)2020-09-21 05:15:00 Test Item Value Reference Range Interpretation Comments Vitamin B12 Level (test code = 03525-8) 591 213-816 [facility] plasma folate measurement (mass/volume)2020-09-21 05:15:00 Test Item Value Reference Range Interpretation Comments Folate (test code = 2284-8) 17.8 >3.0 [facility] [facility] [place] [id number] 21:42:00 [facility] : 1930 Sex: M [facility] [address] [address] Patient Name: JUSTICE HARDY MR #: [id number] : 1930 Age/Sex: 89/M Req #: [id number] Adm Physician: ZACHARIAH SAINI MD Ordered by: AJ FLYNN DO Report #: [id number] Location: MED/SURG Room/Bed: [facility] Procedure: [id number] CT/CT CHEST W Exam Date: 09/20/20 Exam Time: 2114 REPORT STATUS: Signed EXAM: CT Chest WITH contrast 09/20/2020 9:15 PM INDICATION: PE [id number] 2114 COMPARISON: None TECHNIQUE: Chest was scanned [...] 09/20/202199 COPY TO: AJ FLYNN DO Phosphorus [id number] 03:45:00 Test Item Value Reference Range Interpretation Comments Phosphorus Level (test code = FKV5718) 0.8 2.3-4.7 [facility]2020-09-17 15:26:00 [facility] : 1930 Sex: M [facility] [address] [address] Patient Name: JUSTICE HARDY MR #: [id number] : 1930 Age/Sex: 89/M Req #: [id number] Adm Physician: ZACHARIAH SAINI MD Ordered by: ZACHARIAH SAINI MD Report #: [id number] Location: ICU Room/Bed: ICU [facility] Procedure: [id number] DX/CHEST SINGLE (PORTABLE) Exam Date: 09/17/20 Exam Time: 1450 REPORT STATUS: Signed EXAMINATION: CHEST SINGLE (PORTABLE) INDICATION: SOB, tachypnea [id number] 1450 COMPARISON: Prior x-rays including most recent [...] (PT) in platelet poor plasma by coagulation [id number] 10:55:00 Test Item Value Reference Range Interpretation Comments Prothrombin Time (test code = 5902-2) 16.5 11.9-14.5 [facility] Platelet poor plasma by Coagulation [id number] 10:55:00 Test Item Value Reference Range Interpretation Comments Prothromb Time International Ratio 1.25 (test code = 6301-6) [facility] LINE [id number] 20:57:00 [facility] : 1930 Sex: [place] [address] [address] Patient Name: JUSTICE HARDY MR #: [id number] : 1930 Age/Sex: 89/M Req #: [id number] Adm Physician: ZACHARIAH SAINI MD Ordered by: ZACHARIAH SAINI MD Report #: [id number] Location: ICU Room/Bed: [place] [address] Procedure: [id number] DX/CHEST XRAY LINE PLACEMENT Exam Date: 09/16/20 [...] AYDEN on 09/16/202101 COPY TO: ZACHARIAH SAINI [facility] (PORTABLE)2020-09-15 14:55:00 [facility] : 1930 Sex: M [facility] [address] [address] Patient Name: JUSTICE HARDY MR #: [id number] : 1930 Age/Sex: 89/M Req #: [id number] Adm Physician: ZACHARIAH SAINI MD Ordered by: DHARMESH LINARES MD Report #: [id number] Lo cation: MED/SURG Room/Bed: [facility] Procedure: [id number] DX/CHEST SINGLE (PORTABLE) Exam Date: 09/15/20 Exam [...] nically Signed By: SCHUYLER GUERRA MD on 03/19/21 1457 Transcribed By: AYDEN on 09/15/201456 COPY TO: DHARMESH LINARES MDABDOMEN ACUTE SERIES W/PA CXR 2020-09-15 10:17:00 [facility] 1930 Sex: [place] [address] [address] Patient Name: JUSTICE HARDY MR #: [id number] : 1930 Age/Sex: 89/M Req #: [id number] Adm Physician: ZACHARIAH SAINI MD Ordered by: DHARMESH LINARES MD Report #: [id number] Lo cation: MED/SURG Room/Bed: [facility] [place] Procedure: DX/ABDOMEN ACUTE SERIES W/PA CXR Exam [...] 4.2 cm. No free air. Signed by: Schulyer Guerra MDon 09/15/2020 10:20 AM Dictated By: SCHUYLER GUERRA MD 1020 Transcribed By: AYDEN on 09/15/20 1020 COPY TO: DHARMESH LINARES [facility] ACUTE SERIES W/TENZIN [id number] 10:50:00 [facility] : 1930 Sex: M [facility] [address] [address] Patient Name: JUSTICE HARDY MR #: [id number] : 1930 Age/Sex: 89/M Req #: [id number] Adm Physician: ZACHARIAH SAINI MD Ordered by: DHARMESH LINARES MD Report #: [id number] Lo cation: MED/SURG Room/Bed: [facility] [place] Procedure: [id number] DX/ABDOMEN ACUTE SERIES W/PA CXR Exam Date: 09/14/20 Exam Time: 1020 REPORT STATUS: Signed X-ray abdomen acute series with 2 views of the abdomen and a single view of the chest INDICATION: sbo [id number] 1020 Comparison: X-ray dated 09/14/2019. Discussion: Lungs [...] Kinase (test code = 2157-6) 385 30-200 [facility] creatine kinase MB measurement (mass/volume)2020-09-13 11:24:00 Test Item Value Reference Range Interpretation Comments Creatine Kinase MB (test code = 2.90 0-5.0 97467-8) [facility] 2 [id number] 09:26:00 [facility]: JUSTICE HARDY : 1930 Sex: M [facility] [address] [address] Patient Name: JUSTICE HARDY MR #: [id number] : 1930 Age/Sex: 89/M Req #: [id number] [facility] Physician: ZACHARIAH SAINI MD Ordered by: SHANNAN CERVANTES MD Report #: [id number] Location: MED/SURG Room/Bed: [facility] [place] Procedure: [id number] DX/ABDOMEN 2 VIEW Exam Date: 09/13/20 Exam [...] – [place] procedure less than one hour [id number] 19:02:00 Test Item Value Reference Range Interpretation Comments Coronavirus (PCR) (test code = NOT DETECTED NOTDETECTED Coronavirus (PCR)) [facility] A[facility]/PEL WO [id number] 17:30:00[facility] : 1930 Sex: [place] [address] [address] Patient Name: JUSTICE HARDY MR #: [id number] : 1930 Age/Sex: 89/M Req #: [id number] [facility] Physician: Ordered by: SHANNAN CERVANTES MD Report #: [id number] Location: [facility] Room/Bed: Procedure: [id number] HOPD/CT ABD/PEL WO CONTRAST-HOPD Exam Date: 09/12/20 [...] 09/12/201744 COPY TO: SHANNAN CERVANTES MDCT ABDOMEN/PELVIS [id number] 15:20:[address] [address] Patient Name: JUSTICE HARDY MR #: [id number] : 1930 Age/Sex: 89/M Req #: [id number] Adm Physician: Or marcosd by: JEANNINE SAINI MD Report #: [id number] Location: CT Room/Bed: Procedure: [id number] CT/CT ABDOMEN/PELVISWO Exam Date: 03/02/20 Exam Time: [...]
[2021-11-16 12:37] LABS: Absolute Lymphocytes (CBC) 1.2 K/uL (0.7-4.9); Hematocrit 30.5 % (39.6-49.0); Lymphocytes % 14.6 % (15.3-44.8); MPV 8.2 fL (7.6-11.3); RBC Red Blood Cell Count 3.68 M/uL (4.33-5.43)
[2021-11-16 12:41] LABS: Protime INR 1.21
[2021-11-16 12:44] LABS: Urine Blood Negative (Negative); Urine Glucose Negative (Negative); Urine Protein Negative (Negative); Urine Specific Gravity 1.015 (1.005-1.030)
[2021-11-16 12:56] LABS: Albumin 3.1 g/dL (3.4-5.0); Bilirubin Total 0.3 mg/dL (0.2-1.0); Potassium 4.4 mmol/L (3.5-5.1); Protein, Total 6.4 g/dL (6.4-8.2); Troponin High Sensitivity 78.3 pg/mL (<58.9)
[2021-11-16 12:59] LABS: Urine Bacteria <20 /HPF (NONE SEEN); Urine RBC NONE SEEN /HPF (NONE SEEN)
--- NOTE | 2021-11-16 13:39 | RAD REPORT ---
EXAM DESCRIPTION: RAD - Chest Single View - 11/16/2021 1:13 pm CLINICAL HISTORY: AMS COMPARISON: Portable 11/02/2021 TECHNIQUE: AP portable chest image was obtained 11/16/2021 1:13 pm . FINDINGS: Lung volumes are relatively low. Patient has a chronic baseline interstitial pattern. Patc hy areas of airspace opacification are seen in the right upper lobe, right lower lobe and midportion of the left lung field that appear more prominent than on the comparison study. Progressive lung pare nchymal infiltrate or edema suspected. Trachea is midline. Right paratracheal density upper right chest is believed to be tortuous vasculatu re. Sternotomy wires are in place. Ascending aortic stent is in place. Heart size is normal. Central vasculature is mildly prominent but not clearly different. No measurable pleural effusion and no pneumothorax. No acute bony abnormality seen. No acute aortic findings suspected. IMPRESSION: Patchy infiltrate changes are present in both lung avelar superimposed on chronic inters titial lung disease. Correlation is needed with any acute pneumonia symptoms. Central vasculature and lung markings are prominent but not clearly any significant failure or volume overload.
[2021-11-16] MEDS ORDERED: DIPHENHYDRAMINE 50 MG/ML VIAL ONE (13:47)
--- NOTE | 2021-11-16 14:32 | RAD REPORT ---
EXAM DESCRIPTION: CT - Head Brain Wo Cont - 11/16/2021 2:24 pm CLINICAL HISTORY: Mental status change, unknown cause COMPARISON: Head Brain Wo Cont dated 11/02/2021 TECHNIQUE: Axial 5 mm thick images of the head were obtained without IV contrast. All CT scans are performed using dose optimization technique as appropriate and may include automated exposure control or mA/KV adjustment according to patient size. FINDINGS: No intracranial hemorrhage, mass, edema or shift of mid-line structures. No cortical based infarction. No cortical edema or sulcal effacement seen. Mild to moderate for age atrophy present. V entricles are in proportion to the volume loss. No abnormal extra-axial fluid collections. Patient dunn s very dense physiologic basal ganglia calcifications. Mastoid air cells and visualized portions of the paranasal sinuses are clear. No acute bony findings. IMPRESSION: No acute intracranial finding identified. Above detailed findings are not significantly different from November 02 imaging.
--- NOTE | 2021-11-16 15:08 | RAD REPORT ---
EXAM DESCRIPTION: CT - Chest Abdomen Pelvis W Cont - 11/16/2021 2:41 pm CLINICAL HISTORY: Abdominal pain, shortness of breath COMPARISON: Chest Single View dated 11/16/2021 TECHNIQUE: Following dynamic enhancement using 100 milliliters nonionic IV contrast, axial imaging o f the chest, abdomen and pelvis was performed. Biphasic technique was utilized through the abdomen. Oral contrast was administered. All CT scans are performed using dose optimization technique as appropriate and may include automated exposure control or mA/KV adjustment according to patient size. FINDINGS: Respiratory motion artifact is present. There is artifact as well due to the patient's arm s being along his side. No one area of dense consolidation or mass lesions seen. Interstitial thickening is evident partly du e to motion artifact. Interstitial edema or infiltrate can't be excluded. There are few patchy areas of airspace opacification seen in the lung parenchyma. This is less prominent than suggested by the p maria m film. No pleural effusion, pleural thickening or pneumothorax. No significant aortic or pulmonary arterial tree finding. Mediastinal and hilar regions show no mass or abnormal lymphadenopathy. No chest wall mass or axillary lymphadenopathy. Coronary artery and aortic atherosclerotic calcifications are prese nt. Ascending aortic arch stent is in place. Sternotomy is are in place. Sternum appears well-healed. Mild cardiomegaly with no pericardial effusion. Liver is particularly limited due to the artifacts in this study. A gross abnormality is not seen. No spleen or pancreatic acute finding seen. Gallbladder fossa clips are seen. No biliary tree dilatatio n. Renal parenchyma appears to enhance symmetrically. No hydronephrosis or solid mass lesion. Bilater al renal cysts are present. Pyelonephritis cannot be excluded. No adrenal abnormalities. No acute uri nary bladder abnormality seen. Stomach is decompressed. No gastric abnormality or small bowel abnormality seen. Moderately large sto ol volume fills the colon. An acute colon process is not confirmed. Distal rectum anastomosis is seen . No acute GI findings seen. Small periumbilical hernia is present containing the anti mesenteric mar gin of the mid transverse colon. No acute bowel wall edema or edematous fat. Disc and bone degenerative changes are present. No clearly pathologic bone process identified. No acute vascular findings. IMPRESSION: CT chest study shows interstitial thickening suspected to be edema or infiltrate. This i s accentuated due to the amount of respiratory motion artifact. Minimal patchy airspace opacities are present scattered in the lung avelar could be atelectasis, foca l edema or infiltrate. No worrisome mass or lymphadenopathy in the chest. Abdomen and pelvis are limited due to the amount of motion. No acute abdominal or pelvic process seen .
[2021-11-16] MEDS ORDERED: ONDANSETRON 4 MG/2 ML VIAL ONE (15:33)
[2021-11-16] MEDS ORDERED: MORPHINE 2 MG/ML SYR ONE (15:33)
--- NOTE | 2021-11-16 15:57 | EDPHYS ---
Physician Documentation [facility] Name: Benito Castaneda Age: 89 yrs Sex: Male : 1930 Arrival Date: 11/16/2021 Time: 11:54 Bed 13 Private MD: ED Physician Don Bhakta HPI: 11/16 12:37 This 89 yrs old Male presents to ER via Unassigned with complaints of Altered pm1 Mental Status. 12:37 The patient presents with decreased mental status. Onset: The symptoms/episode pm1 began/occurred this morning. Possible causes: unknown. Associated signs and symptoms: Pertinent positives: nausea, shortness of breath, Abdominal pain for 2 days, Pertinent negatives: chest pain, diarrhea, vomiting. Current symptoms: In the emergency department the patient's symptoms have worsened. The patient has been recently seen by a physician: the patient's primary care provider, Dr. Flanagan 3 day(s) ago, for apparently unrelated complaints. 89-year-old patient presents to the ER with complaints of altered mental status. Altered mental status started this morning around 6:00 per home health nurse. For the past 2 days patient has been complaining of abdominal pain with nausea. ROS: 12:37 Constitutional: Negative for fever, chills, and weight loss, Cardiovascular: Negative pm1 for chest pain, palpitations, and edema. 12:37 Back: Negative for injury and pain, : Negative for injury, bleeding, discharge, and swelling, MS/Extremity: Negative for injury and deformity, Skin: Negative for injury, rash, and discoloration, Neuro: Negative for headache, weakness, numbness, tingling, and seizure. 12:37 Respiratory: Positive for shortness of breath, Negative for cough. 12:37 Abdomen/GI: Positive for abdominal pain, Negative for nausea, vomiting, and diarrhea. 12:37 All other systems are negative. Exam: 12:37 Constitutional: This is a well developed, well nourished patient who is awake, alert, pm1 and in no acute distress. Head/Face: Normocephalic, atraumatic. Cardiovascular: Regular rate and rhythm with a normal S1 and S2. No gallops, murmurs, or rubs. Normal PMI, no JVD. No pulse deficits. Respiratory: Lungs have equal breath sounds bilaterally, clear to auscultation and percussion. No rales, rhonchi or wheezes noted. No increased work of breathing, no retractions or nasal flaring. 12:37 Back: No spinal tenderness. No costovertebral tenderness. Full range of motion. Skin: Warm, dry with normal turgor. Normal color with no rashes, no lesions, and no evidence of cellulitis. MS/ Extremity: Pulses equal, no cyanosis. Neurovascular intact. Full, normal range of motion. 12:37 Abdomen/GI: Inspection: obese Palpation: soft, in all quadrants, mild abdominal tenderness, in the suprapubic area. 12:37 Neuro: Orientation: unable to test, Altered mental status. Patient responsive to pain. Vital Signs: 12:32 BP 141 / 74; Pulse 60; Resp 18; Pulse Ox 98% ; Pain 0/10; jh6 14:05 BP 158 / 69; Pulse 53; Resp 17; Pulse Ox 98% ; jh6 16:00 BP 156 / 70; Pulse 79; Resp 18; Pulse Ox 97% ; Pain 4/10; jh6 17:00 BP 161 / 86; Pulse 76; Resp 17; Pulse Ox 98% ; Pain 3/10; jh6 18:50 BP 126 / 74; Pulse 69; Resp 17; Pulse Ox 96% on R/A; Pain 0/10; jh6 MDM: 11:56 Patient medically screened. pm1 15:36 Counseling: I had a detailed discussion with the patient and/or guardian regarding: the pm1 historical points, exam findings, and any diagnostic results supporting the discharge/admit diagnosis, lab results, radiology results, the need for further work-up and treatment in the hospital. 15:52 Physician consultation: A Masha GARCIA regarding admission, patient's condition, and will pm1 see patient would like medications started, Lasix and Milk of magnesia 30mL. 15:54 Data reviewed: vital signs. Data interpreted: Pulse oximetry: on room air is 98 %. pm1 Interpretation: normal. 11/16 12:02 Order name: Blood Culture Adult (2) pm1 11/16 12:02 Order name: CBC with Diff; Complete Time: 12:42 pm1 11/16 12:02 Order name: CMP; Complete Time: 13:08 pm1 11/16 12:02 Order name: Lactate; Complete Time: 12:54 pm1 11/16 12:02 Order name: Protime (+inr); Complete Time: 12:42 pm11/16 12:02 Order name: Ptt, Activated; Complete Time: 12:42 pm11/16 12:02 Order name: Urine Culture 11/16 12:02 Order name: Urine Microscopic Only; Complete Time: 13:08 pm11/16 12:02 Order name: CT Head Brain wo Cont; Complete Time: 14:33 pm11/16 12:07 Order name: COVID-19 SARS RT PCR (Document "Date of Onset" if Symptomatic); Complete pm1 Time: 13:53 11/16 12:07 Order name: Flu; Complete Time: 13:08 pm11/16 12:07 Order name: BNP; Complete Time: 13:08 pm11/16 12:07 Order name: Troponin High Sensitivity; Complete Time: 13:08 pm11/16 12:45 Order name: Urine Dipstick-Ancillary; Complete Time: 12:54 EDMS 11/16 12:02 Order name: Accucheck pm11/16 12:02 Order name: Cardiac monitoring 11/16 12:02 Order name: EKG - Nurse/Tech pm11/16 12:02 Order name: IV Saline Lock - Large Bore pm11/16 12:02 Order name: Labs collected and sent 11/16 12:02 Order name: O2 Per Protocol pm11/16 12:02 Order name: O2 Sat Monitoring 11/16 12:02 Order name: Urine Dipstick-Ancillary (obtain specimen) pm11/16 12:03 Order name: Chest Single View XRAY; Complete Time: 13:51 pm11/16 12:07 Order name: CT Chest, Abdomen, Pelvis - W/Contrast; Complete Time: 15:17 pm1 Administered Medications: 13:45 Drug: Benadryl (diphenhydrAMINE) 12.5 mg Route: IVP; Site: right antecubital; jh6 15:30 Drug: morphine 2 mg Route: IVP; Site: right antecubital; jh6 15:30 Drug: Zofran (Ondansetron) 4 mg Route: IVP; Site: right antecubital; jh6 15:54 CANCELLED (Physician Discretion): Lasix (furosemide) 40 mg IVP once; give over 2 minutespm1 16:18 Drug: Lasix (furosemide) 20 mg Route: IVP; Site: right antecubital; [facility] 16:19 Drug: Milk of Magnesia (magnesium hydroxide) Suspension 400 mg/5 mL 30 ml Route: PO; 6 Disposition Summary: 11/16/21 15:56 Hospitalization Ordered Hospitalization Status: Inpatient Admission pm1 Provider: Iv[facility]agan [facility] Condition: Stable pm1 Problem: new pm1 Symptoms: have improved pm1 Bed/Room Type: Standard pm1 Room Assignment: 204(11/16/21 20:13) mw Diagnosis - Altered mental status, unspecified pm1 - Constipation pm1 - Acute on chronic systolic (congestive) heart failure pm1 Forms: - Medication Reconciliation Form pm1 - SBAR form pm1 Signatures: Dispatcher [employer] EDMS Mary Kay Bazan RN RN mw Jun Frank NP ORGANIZATIONAL RESEARCH CONSULTANT pm1 Marlen Newberry RN RN [facility] Corrections: (The following items were deleted from the chart) 15:54 15:53 Lasix (furosemide) 40 mg IVP once; give over 2 minutes ordered. pm1 pm1 20:13 15:56 pm1 mw
--- NOTE | 2021-11-16 15:57 | ER ---
Nurse's Notes [facility] Name: Benito Castaneda Age: 89 yrs Sex: Male : 1930 Arrival Date: 11/16/2021 Time: 11:54 Bed 13 Private MD: Diagnosis: Altered mental status, unspecified;Constipation;Acute on chronic systolic (congestive) heart failure Presentation: 11/16 12:32 Chief complaint: EMS states: ems reports that home health called due to decreased 6 mental status. stated that pt was seen last mo in the er for same s.s pt is without fever or cough. 12:32 Method Of Arrival: EMS: [facility] 12:32 Coronavirus screen: Vaccine status: Patient reports receiving the 2nd dose of the covid jh6 vaccine. Client denies travel out of the [place] in the last 14 days. At this time, the client does not indicate any symptoms associated with coronavirus-19. Ebola Screen: Patient negative for fever greater than or equal to 101.5 degrees Fahrenheit, and additional compatible Ebola Virus Disease symptoms Patient denies exposure to infectious person. Patient denies travel to an Ebola-affected area in the 21 days before illness onset. 12:32 Initial Sepsis Screen: Does the patient meet any 2 criteria? Altered Mental Status. Yes jh6 No. Patient's initial sepsis screen is negative. Does the patient have a suspected source of infection? No. Patient's initial sepsis screen is negative. Risk Assessment: Do you want to hurt yourself or someone else? Patient reports no desire to harm self or others. Onset of symptoms was November 16, 2021. 12:32 Acuity: ANT 2 6 Triage Assessment: 12:32 General: Appears in no apparent distress. Behavior is calm, drowsy. Neuro: Level of 6 Consciousness is lethargic, Oriented to person, place, Speech is normal, Pupils are PERRLA, Pupil Size: 2mm. Screenin:45 Abuse screen: Denies threats or abuse. [facility] 12:45 Nutritional screening: No deficits noted. Tuberculosis screening: No symptoms or risk 6 factors identified. Fall Risk IV access (20 points). Gait- Impaired (20 pts.). Assessment: 13:32 Reassessment: No changes from previously documented assessment. Patient and/or family jh6 updated on plan of care and expected duration. Pain level reassessed. Patient is alert, oriented x 3, equal unlabored respirations, skin warm/dry/pink. 13:32 Pain: Noted to be quiet/stoic. Neuro:. jh6 Vital Signs: 12:32 BP 141 / 74; Pulse 60; Resp 18; Pulse Ox 98% ; Pain 0/10; jh6 14:05 BP 158 / 69; Pulse 53; Resp 17; Pulse Ox 98% ; jh6 16:00 BP 156 / 70; Pulse 79; Resp 18; Pulse Ox 97% ; Pain 4/10; jh6 17:00 BP 161 / 86; Pulse 76; Resp 17; Pulse Ox 98% ; Pain 3/10; jh6 18:50 BP 126 / 74; Pulse 69; Resp 17; Pulse Ox 96% on R/A; Pain 0/10; jh6 ED Course: 11:54 Patient arrived in ED. ds1 11:54 Marlen Newberry, BERYL is Primary Nurse. jh6 11:56 Jun Frank NP is PHCP. pm1 11:56 Don Bhakta MD is Attending Physician. pm1 13:15 Chest Single View XRAY In Process Unspecified. EDMS 13:20 Arm band placed on left wrist. Patient placed in an exam room, on a stretcher, on 6 oxygen, on monitor technician, on pulse oximetry. EKG completed in triage. Results shown to MD. 14:02 Triage completed. jh6 14:26 CT Head Brain wo Cont In Process Unspecified. EDMS 14:43 CT Chest, Abdomen, Pelvis - W/Contrast In Process Unspecified. EDMS 15:55 Ivory Flanagan MD is Hospitalizing Provider. pm1 Administered Medications: 13:45 Drug: Benadryl (diphenhydrAMINE) 12.5 mg Route: IVP; Site: right antecubital; jh6 15:30 Drug: morphine 2 mg Route: IVP; Site: right antecubital; jh6 15:30 Drug: Zofran (Ondansetron) 4 mg Route: IVP; Site: right antecubital; jh6 15:54 CANCELLED (Physician Discretion): Lasix (furosemide) 40 mg IVP once; give over 2 minutespm1 16:18 Drug: Lasix (furosemide) 20 mg Route: IVP; Site: right antecubital; jh6 16:19 Drug: Milk of Magnesia (magnesium hydroxide) Suspension 400 mg/5 mL 30 ml Route: PO; jh6 Output: 14:30 Urine: 800ml (Straight Cath); Total: 800ml. jh6 15:20 Urine: 300ml (Voided); Total: 1100ml. jh6 16:35 Urine: 400ml (Voided); Total: 1500ml. jh6 Outcome: 15:56 Decision to Hospitalize by Provider. pm1 21:31 Patient left the ED. tw5 Signatures: Dispatcher [employer] [facility] Diana Perez ds1 Jun Frank NP MANAGER GAS pm1 Nandini Reynaga tw5 Marlen Newberry RN RN jh6 Corrections: (The following items were deleted from the chart) 14:04 14:02 General: Appears in no apparent distress. Behavior is calm, drowsy, jh6 jh6 14:04 14:02 Neuro: Level of Consciousness is lethargic, Oriented to person, place, Speech is jh6 normal, Pupils are PERRLA, Pupil Size: 2mm jh6
[2021-11-16] MEDS ORDERED: MAGNESIUM HYDROXIDE 8% 30 ML ONE (16:16)
[2021-11-16] MEDS ORDERED: FUROSEMIDE 20 MG/ 2ML VIAL ONE ×2 (16:17→20:15)
[2021-11-16] MEDS: carvediloL 6.25 MG TAB PO SCH (19:48)
[2021-11-16] MEDS ORDERED: IPRATROPIUM BROM 0.5MG/2.5ML NEB PRN (19:48)
[2021-11-16] MEDS ORDERED: ALBUTEROL 2.5 MG/3 ML NEB SOL NEB PRN (19:48)
[2021-11-16] MEDS: FUROSEMIDE 20 MG/ 2ML VIAL IV SCH (20:13)
[2021-11-16] MEDS: APIXABAN 2.5 MG TABLET PO SCH (20:14)
[2021-11-16] MEDS ORDERED: APIXABAN 5 MG TABLET ONE (20:15)
[2021-11-16] MEDS ORDERED: carvediloL 6.25 MG TAB ONE (20:15)
[2021-11-16] MEDS: MORPHINE 2 MG/ML SYR IV PRN (22:11)
[2021-11-16] MEDS: ONDANSETRON 4 MG/2 ML VIAL IV PRN (22:11)
[2021-11-17] MEDS: MORPHINE 2 MG/ML SYR IV PRN ×3 (04:58→20:40)
[2021-11-17] MEDS: carvediloL 6.25 MG TAB PO SCH ×2 (04:59→17:22)
[2021-11-17 06:02] LABS: Absolute Lymphocytes (CBC) 0.9 K/uL (0.7-4.9); Hematocrit 30.6 % (39.6-49.0); MPV 7.8 fL (7.6-11.3)
[2021-11-17 06:22] LABS: Potassium 4.3 mmol/L (3.5-5.1)
[2021-11-17] MEDS: ONDANSETRON 4 MG/2 ML VIAL IV PRN (08:36)
[2021-11-17] MEDS: FUROSEMIDE 20 MG/ 2ML VIAL IV SCH ×2 (08:36→16:03)
[2021-11-17] MEDS: APIXABAN 2.5 MG TABLET PO SCH (08:36)
[2021-11-17] MEDS ORDERED: ASPIRIN EC 81 MG TAB PO ONE (09:26)
[2021-11-17] MEDS ORDERED: TAMSULOSIN 0.4 MG SR CAP PO ONE (09:27)
[2021-11-17] MEDS ORDERED: POLYETHYL GLY 3350 17 GM/DOSE PO SCH (10:00)
[2021-11-17] MEDS: DUTASTERIDE 0.5 MG GEL CAP PO SCH (10:00)
[2021-11-17] MEDS ORDERED: MAGNESIUM HYDROXIDE 8% 30 ML PO ONE (11:02)
[2021-11-17] MEDS ORDERED: BISACODYL 10 MG RECTAL SUPP PR ONE (11:02)
[2021-11-17 11:42] LABS: Folic Acid, (Folate) < 20.0 ng/mL (3.1-17.5); Transferrin 270 mg/dL (200-360)
[2021-11-17 11:52] LABS: Troponin High Sensitivity 10085.3 pg/mL (<58.9)
[2021-11-17] MEDS ORDERED: FLEET ENEMA ADULT PR ONE (16:00)
[2021-11-17] MEDS: FAMOTIDINE 20 MG TAB PO SCH (20:39)
[2021-11-17] MEDS: ENOXAPARIN 60 MG/0.6 ML SQ SCH (20:39)
[2021-11-17] MEDS: DOCUSATE NA/SENNA CONC 1 TAB PO SCH (20:39)
[2021-11-17] MEDS: DULERA 200/5 (MOMETASONE/FORMOTEROL) INHALER IH SCH (20:40)
[2021-11-18] MEDS: MORPHINE 2 MG/ML SYR IV PRN (04:40)
[2021-11-18] MEDS: carvediloL 6.25 MG TAB PO SCH (05:52)
[2021-11-18 07:25] VITALS: BMI 23.7
[2021-11-18 07:30] LABS: Absolute Lymphocytes (CBC) 1.2 K/uL (0.7-4.9); Hematocrit 31.7 % (39.6-49.0); Lymphocytes % 18.5 % (15.3-44.8); MPV 8.2 fL (7.6-11.3); RBC Red Blood Cell Count 3.83 M/uL (4.33-5.43)
[2021-11-18 07:47] LABS: Magnesium 2.3 mg/dL (1.8-2.4); Potassium 3.9 mmol/L (3.5-5.1)
[2021-11-18] MEDS: ENOXAPARIN 60 MG/0.6 ML SQ SCH ×2 (09:11→20:51)
[2021-11-18] MEDS: DOCUSATE NA/SENNA CONC 1 TAB PO SCH ×2 (09:11→20:50)
[2021-11-18] MEDS: TAMSULOSIN 0.4 MG SR CAP PO SCH (09:12)
[2021-11-18] MEDS: ASPIRIN EC 81 MG TAB PO SCH (09:12)
[2021-11-18] MEDS: LORATADINE 10 MG TAB PO SCH (09:12)
[2021-11-18] MEDS: FAMOTIDINE 20 MG TAB PO SCH ×2 (09:12→20:51)
[2021-11-18] MEDS: FUROSEMIDE 20 MG/ 2ML VIAL IV SCH ×2 (09:12→16:09)
[2021-11-18] MEDS: DUTASTERIDE 0.5 MG GEL CAP PO SCH (09:12)
[2021-11-18] MEDS: DULERA 200/5 (MOMETASONE/FORMOTEROL) INHALER IH SCH ×2 (09:13→20:52)
--- NOTE | 2021-11-18 09:29 | RAD REPORT ---
EXAM DESCRIPTION: RAD - Chest Pa And Lat (2 Views) - 11/18/2021 9:06 am CLINICAL HISTORY: CHF COMPARISON: Portable 11/16/2021 TECHNIQUE: Frontal and lateral views of the chest were obtained. FINDINGS: The lungs are underinflated. Vasculature and lung markings have decreased in prominence. Heart size is upper normal, not substantially different from comparison. Minimal pleural effusions ar e present in each posterior gutter. No acute bony finding noted. No aortic abnormality. IMPRESSION: Partial clearing of the CHF/volume overload pattern since prior day imaging.
[2021-11-18] MEDS ORDERED: BISACODYL 10 MG RECTAL SUPP PR ONE (09:30)
[2021-11-18] MEDS ORDERED: MAGNESIUM HYDROXIDE 8% 30 ML PO ONE (09:30)
[2021-11-18 10:52] LABS: Arterial Blood Carboxyhemoglob 1.4 % (0-1.5); Blood Gas Oxyhemoglobin 80.8 % (94-97)
--- NOTE | 2021-11-18 12:15 | PN ---
Date of Progress Note: 11/18/2021 Subjective: The patient was seen this morning for followup. He was just returning from chest x-ray this morning when I saw him. He was his normal self, awake, alert. Denied any complaints overnight. Had a small bowel movement with the treatment that we gave yesterday for constipation. Reports darrel t his abdominal pain is better. The patient's granddaughter was present and subsequently arrive d at the hospital also. Objective: Vital Signs: Reviewed. HEENT: Unremarkable. Lungs: Clear to auscultation. No rales noted. Not in any respiratory distress. Heart: Sounds normal. Abdomen: Soft. Bowel sounds normal. No guarding, rigidity, tenderness, distention. Extremities: No leg edema and bilateral feet examination shows normal appearance of skin color and t emperature. No evidence of any bluish or purplish discoloration of the toe noted today, but the neymar ent's granddaughter informed me that yesterday after I left the hospital, she noted his right foot gr eat toe was a little purple, but today it is back to normal. Laboratory Data: White count 6.4, hemoglobin 10.4, platelets 236. Sodium 131, potassium 3.9, chlori de 97, bicarb 27, BUN 31, creatinine 1.45, glucose 138, triglyceride 85, total cholesterol 197, LDL 1 13, HDL 67. Chest x-ray shows partial clearing of congestive heart failure changes. His serum iron is 28, TIBC 378, ferritin level low at 14, PSA 0.02, B12 654. Folic acid is reported as a confusing report, it says less than 20, but also states it is high, so very likely it is probably more than 20 and read it as high and we will have to have lab clarify that. Impression: 1.Non-ST segment elevation myocardial infarction. 2.Congestive heart failure, chronic, diastolic, with acute exacerbation. 3.Coronary artery disease. 4.Hypertension. 5.Hyperlipidemia. 6.Peripheral vascular disease. 7.Frontal lobe dementia. 8.Acute kidney injury. 9.Iron deficiency anemia. Plan: The patient's chest x-ray has shown improvement with congestive changes and renal function has gone up today with creatinine 1.45 and this could be acute kidney injury due to either diuretic medi cation or due to IV contrast that he received in emergency room at the time of CAT scan. After I saw the patient, I had a long discussion with his granddaughter and this was regarding multiple chronic health problems, poor prognosis after I left his room, I went back into his room because he had recur rence of episode that happened while he was at home prior to presentation to hospital emergency room and when I went back into the room, I found out that he was unresponsive. He was having shallow wei thing and then periods of apnea and this cycle was going on. He was arousable with some sternal rub and communicated with me just find when he woke up, he recognized me right away and informed me that I was his doctor and recognize his and granddaughter who were present in the room at bedside als o, but then he went back into deep sleep with this shallow breathing and periods of apnea. Stat dominick rial blood gas was done and results reviewed and after that, the patient was started on BiPAP. The p atient what he has is with his history of underlying obstructive sleep apnea, he also has respiratory failure with hypoxia. He is not getting any treatment for sleep apnea at home with any CPAP machine . Right now, we will leave him on BiPAP with oxygen, consult Pulmonary Service. His overall prognos is is poor. I had a long discussion with family 2 different times today and an ideal situation for h is non-STEMI one would need cardiac catheterization to see if any further intervention can be provide d or not, but at the same time, we have multiple other complex medical problems going on as discussed with family and family will need to decide if they want us to be aggressive with cardiac cath and an y further intervention or conservative treatment, but especially after this episode of respiratory fa ilure even if family wants any aggressive treatment, he will not be able to undergo any such treatmen t at this point and it will have to be on an elective outpatient basis. The patient's family also in formed me that his frontal lobe dementia problem is getting worse in last few months, which is expect ed to progressively get worse over a period of time. We have other underlying major health issues no w, coronary artery disease, congestive heart failure, sleep apnea, now respiratory failure, periphera l vascular disease and acute kidney injury as noted today. All these details were discussed with gra nddaughter. She informs me that the patient's son has medical power of mud cleaner operator, who lives in [place] and I did ask granddaughter to communicate with the patient's son who has medical power of attorne y to discuss all these details and find out about the code status and let us know about that decision soon as she has chance. We also communicated regarding the possibility of hospice care upon dischar helga from the hospital because of his multiple complex medical problems and poor prognosis. The patien t is having now bradycardia with heart rate around 48 to 49 per minute and we will discontinue his ca rvedilol. RUY/MODL Voice ID: [id number] Report ID: [id number]
[2021-11-18] MEDS ORDERED: FLEET ENEMA ADULT PR ONE (16:00)
--- NOTE | 2021-11-18 20:33 | CON ---
Date of Consultation: 11/17/2021 Reason For Consultation: Congestive heart failure and elevated troponin. History Of Present Illness: Mr. Castaneda is an 89-year-old [place] male, typically follows up w wandy Tate. Has had a history of aortic valve replacement, CABG, DVT, CVA, hypertension, COPD, at rial fibrillation. Came in with congestive heart failure, altered mental status. Recent echocardiog gokul in the hospital in September showed an ejection fraction to be normal and his aortic valve was well s eated and was normal. He came in with mostly shortness of breath and altered mental status and body aches throughout. Denied any fever or chills or cough. Has had PND, orthopnea, mild pedal edema. Past Medical History: As stated above. Allergies: INCLUDE CARDURA, LIPITOR, BENADRYL, AND IODINE. Review of Systems: Negative. Social History: Negative. Family History: Noncontributory. Medications: At home include Eliquis, aspirin, Lasix, Coreg, and Flomax. Physical Examination: General: Mr. Castaneda was rather obtunded and lethargic, would not really answer questions appropriate ly and seems to be very somnolent, but his vital signs were stable. He was in sinus rhythm. HEENT: Negative. Neck: Supple without lymphadenopathy, JVD or thyromegaly. Chest: Clear to auscultation and percussion on the right. He has some rales on the left base. Cardiac: Revealed a regular rhythm and rate with S4 gallops, aortic sclerosis murmur. No rubs. Abdomen: Benign. Extremities: Revealed no clubbing, cyanosis. He only had trace edema. Diagnostic Data: Chest x-ray and CT scan are consistent with congestive heart failure. Hemoglobin i s 10. Troponin was 100,853. His BNP is 8809. Impression And Plan: 1.Acute on chronic diastolic congestive heart failure. 2.Status post bioprosthetic aortic valve. 3.Coronary artery disease, status post coronary artery bypass graft. 4.History of cerebrovascular accident. 5.Deep vein thrombosis. 6.Hypertension. 7.Chronic obstructive pulmonary disease. 8.Atrial fibrillation. I think we need to continue his present regimen. I think his troponin eleva tion and BNP elevation are concerning and certainly consistent with coronary artery disease and conge stive heart failure. I am not so sure how aggressive the family wants to be as far as neyda simpson at this point. He is definitely not a candidate for that, but I will continue to follow him along. Continue present regimen for now. ALETA/RODOLFO Voice ID: [id number] Report ID: [id number]
[2021-11-18] MEDS: ROSUVASTATIN 10 MG TAB PO SCH (20:50)
[2021-11-18] MEDS: QUETIAPINE 25 MG TAB PO SCH (20:51)
--- NOTE | 2021-11-18 20:51 | PN ---
Date of Progress Note: 11/18/2021 Mr. Castaneda was admitted with non-STEMI, acute on chronic diastolic congestive heart failure, altered mental status. He has a history of CVA, dementia, DVT, hypertension, COPD, and atrial fibrillation, but today he is in sinus rhythm, blood pressure 118/55, O2 saturation is 100% on CPAP and BiPAP. His creatinine, however, went from 0.94 to 1.45. Nephrology is being consulted. Pulmonary is being con sulted. Had a normal white count, hemoglobin is 10.4. His last pO2 was 52 with a pCO2 of 49 and a p H of 7.39. Mr. Castaneda is still on Eliquis, aspirin, Lovenox, Lasix at 20 mg. He is getting carvedil ol. I think we need to continue his present regimen. Again, I do not think there is a need for hear t catheterization at this point regarding his overall status. Dr. Flanagan is discussing hospice care an d the code status with the family. I will continue to follow him. ALETA/RODOLFO Voice ID: [id number] Report ID: [id number]
[2021-11-18 21:35] VITALS: O2SAT 98
[2021-11-18] MEDS: AMLODIPINE 5 MG TAB PO SCH (21:59)
[2021-11-19] MEDS: ONDANSETRON 4 MG/2 ML VIAL IV PRN ×3 (02:48→22:27)
[2021-11-19 06:22] LABS: Magnesium 2.4 mg/dL (1.8-2.4); Potassium 3.7 mmol/L (3.5-5.1)
--- NOTE | 2021-11-19 08:44 | RAD REPORT ---
EXAM DESCRIPTION: US - Lower Extremity Arterial Bilat - 11/19/2021 5:56 am CLINICAL HISTORY: PVD Leg pain, claudication. COMPARISON: No comparisons TECHNIQUE: Bilateral lower extremity arterial Doppler examination was performed with sandrine gibson FINDINGS: The patient had difficulty holding still which limited the quality of the study. Triphasic waveform seen right common femoral artery to distal superficial femoral artery. Monophasic waveform seen right popliteal artery and distal. Triphasic waveform is seen left common femoral artery and proximal left superficial femoral artery. M onophasic waveform seen the left distal superficial femoral artery and distally. IMPRESSION: Moderate peripheral vascular disease is present bilaterally as detailed above. There is a notable change in the waveforms at the level of the right popliteal artery as well as the mid to di stal left superficial femoral artery likely indicating flow altering stenoses at these levels.
[2021-11-19] MEDS: AMLODIPINE 5 MG TAB PO SCH ×2 (09:00→20:42)
[2021-11-19] MEDS: DOCUSATE NA/SENNA CONC 1 TAB PO SCH ×2 (09:24→20:42)
[2021-11-19] MEDS: LORATADINE 10 MG TAB PO SCH (09:24)
[2021-11-19] MEDS: TAMSULOSIN 0.4 MG SR CAP PO SCH (09:25)
[2021-11-19] MEDS: ASPIRIN EC 81 MG TAB PO SCH (09:25)
[2021-11-19] MEDS: FAMOTIDINE 20 MG TAB PO SCH ×2 (09:25→20:43)
[2021-11-19] MEDS: FUROSEMIDE 20 MG/ 2ML VIAL IV SCH ×2 (09:26→17:30)
[2021-11-19] MEDS: APIXABAN 2.5 MG TABLET PO SCH ×2 (09:26→20:43)
[2021-11-19] MEDS: DULERA 200/5 (MOMETASONE/FORMOTEROL) INHALER IH SCH ×2 (09:27→20:48)
[2021-11-19] MEDS: DUTASTERIDE 0.5 MG GEL CAP PO SCH (09:27)
[2021-11-19] MEDS: FERROUS GLUCONATE 324 MG TAB PO SCH ×2 (09:33→17:30)
[2021-11-19] MEDS ORDERED: ACETAMINOPHEN 500 MG TAB PO PRN (10:43)
[2021-11-19] MEDS ORDERED: FLEET ENEMA ADULT PR ONE (10:43)
[2021-11-19] MEDS ORDERED: MAGNESIUM HYDROXIDE 8% 30 ML PO ONE (10:43)
[2021-11-19] MEDS ORDERED: BISACODYL 10 MG RECTAL SUPP PR ONE (10:43)
--- NOTE | 2021-11-19 11:31 | EKG ---
Test Date: 2021-11-16 Test Time: 13:47:47 Supply Chain Program Manager: MCKENNA MEASUREMENT RESULTS: Intervals: Rate: 63 ME: 180 QRSD: 100 QT: 464 QTc: 474 [place]: P: 44 ME: 180 QRS: 259 T: 37 INTERPRETIVE STATEMENTS: Sinus rhythm with premature supraventricular complexes Right superior axis deviation Abnormal ECG Compared to ECG 11/02/2021 11:42:36 Atrial premature complex(es) now present Right superior axis now present Sinus bradycardia no longer present Left-axis deviation no longer present Electronically Signed On 11-19-21 11:24:07 CDT by Reji Ramon
--- NOTE | 2021-11-19 12:16 | HP ---
Date of Admission: 11/16/2021 Chief Complaint: Altered mental status and abdominal pain. History Of Present Illness: This is an 89-year-old very pleasant male patient, who saw me for the in itial office visit on 11/13/2021 and he was brought into office by his granddaughter. The patient dunn s multiple comorbidities, so far he was only seeing Dr. Tate as his indexer, but did not have a or primary care provider in a long time as family was describing it to me and wanted to get establish ed with me, so he came into see me 3 to 4 days ago. Family brought him to ER because of confusion pr oblem and lower abdominal pain. He denies any constipation, has a bowel movement regularly. No bloo d in stool. No nausea. No vomiting. No fever. No chills. No relation of abdominal pain with any food or any other aggravating or relieving factor. Family says that in last 2 weeks or so, they have noted episodes of altered mental status where all of a sudden he will become unresponsive and on bas is of what they describing he would have period of apnea during that phase of being unresponsive. At this time, this particular episode of being unresponsive lasted for about 2 to 3 hours and family sa ys each time the episode tends to get worse. He has a history of sleep apnea, but has not been using any kind of machine at home as family describes. After he was evaluated in ER, he was admitted to [facility]. His cardiac enzyme was slightly abnormal yesterday when he came into ER and we repeated another set of cardiac enzyme this morning, which came back lot higher than yesterday, but he does n ot have any complaints of any chest pain. Allergies: TO DOXAZOSIN CAUSING HIVES, ATORVASTATIN CAUSING HIVES, BENADRYL CAUSING NAUSEA AND VOMIT ING. Medications: Eliquis 2.5 mg 2 times a day, aspirin 81 mg daily, carvedilol 3.125 mg 2 times a day, S eroquel which was just started 3 days ago of 50 mg at bedtime, docusate sodium 100 mg 2 times a day, Avodart 0.5 mg daily, famotidine 20 mg 2 times a day, Breo Ellipta inhaler 1 puff daily, furosemide 4 0 mg 2 times a day, Claritin 10 mg daily, MiraLAX powder 17 g powder daily, tamsulosin 0.4 mg daily, and trazodone 100 mg daily at bedtime. Review of Systems: Respiratory: As mentioned above. GI: As mentioned above. BUSINESS INTEGRATION MANAGER: As mentioned above. Cardiovascular: Has some leg swelling problem. All other systems reviewed and negative. Past Medical History: Significant for frontal lobe dementia which in last 6 months is getting worse according to family, COPD, history of pulmonary embolism and DVT, hypertension, hyperlipidemia, coron paty artery disease, last OK was April 2021 and at that time, no cardiac intervention was not done, diastolic congestive heart failure, aortic atherosclerosis, peripheral vascular disease, gastroesoph ageal reflux disease, diverticulosis, renal cyst, prostate cancer, osteoarthritis at multiple sites a nemia, anxiety, insomnia. Past Surgical History: Significant for coronary artery stent placement, coronary artery bypass surge ry, aortic valve replacement, IVC filter placement, cholecystectomy, appendectomy, exploratory laparo magali for strangulated ventral hernia and small bowel obstruction, this was in 2018. Family History: Father , had coronary artery disease. Mother , details unknown. Brother dunn s coronary artery disease. Social History: Prior history of smoking, not at present time. Use of alcohol negative. Physical Examination: Vital Signs: Temperature 97.6, pulse 60, respiratory rate 16, blood pressure 135/64, oxygen saturati on 98%. Height 5 feet 4 inches, weight 141 pounds. General: Awake, alert, oriented, not in distress. HEENT: Head atraumatic, normocephalic. Conjunctivae nonerythematous. Sclerae white. Mouth, no thr ush or edema noted. Ears/Nose, no mass, lesion, discharge noted. Neck: Supple. No JVD, lymph nodes, bruit, thyromegaly noted. Lungs: Examination shows some basal rales not using any accessory muscles of respiration. Heart: Normal heart sounds, no murmur or gallop. Abdomen: Soft, bowel sounds normal. No guarding, rigidity, tenderness, mass, hepatosplenomegaly, dis tention, or bruit noted. Extremities: Trace edema of the dorsum of the feet. This is better than what it was 3 to 4 days ago . Skin: No rash, ulcer, cellulitis. Lymphatics: No lymph node enlargement in neck, supraclavicular, infraclavicular region. Neuro: No focal neurological deficit. Chest: Unremarkable. External Genitalia: Deferred. Rectal: Deferred. Vascular Exam: Dorsalis pedis and posterior tibial artery pulsation on left foot able to feel it, bu t diminished compared to normal and right foot unable to feel it. Skin over both feet appears normal . No evidence of any cyanosis or any infection. Normal appearing skin. Normal temperature of the s kin overlying both feet. Laboratory Data: Yesterday; white count 8.4, hemoglobin 9.9, platelets 223. Today; white count 7.5, hemoglobin 10, platelets 216. Yesterday; sodium 135, potassium 4.4, chloride 105, bicarb 26, BUN 22 , creatinine 0.94, glucose 106. Liver function tests unremarkable. Troponin 78.3 yesterday with pro BNP 5323. Today, proBNP is 8809. Sodium 137, potassium 4.3, chloride 103, bicarb 28, BUN 24, creati nine 1.16, glucose 89. INR was 1.21. Urinalysis negative. COVID-19 test negative. CAT scan of the head was negative for any acute intracranial changes. Chest x-ray shows patchy infiltrate changes i n both lung avelar, prominent central vasculature. CAT scan of chest, abdomen, and pelvis with contr ast done in emergency room shows interstitial thickening, suspected to be edema or infiltrate. Minim al patchy airspace opacity present, scattered in both lung avelar. It could be atelectasis or focal edema or infiltrate. No acute abdominal or pelvic findings. Today, his repeat troponin was 10,085.3 . EKG, no acute ST-T changes. Impression: 1.Non-ST segment elevation myocardial infarction. 2.Congestive heart failure, chronic, diastolic, with acute exacerbation. 3.Lower abdominal pain. 4.Diverticulosis. 5.Constipation. 6.Frontal lobe dementia. 7.Obstructive sleep apnea. 8.Chronic obstructive pulmonary disease. 9.Hypertension. 10.Hyperlipidemia. 11.Coronary artery disease. 12.Aortic atherosclerosis. 13.Peripheral vascular disease. 14.Gastroesophageal reflux disease. 15.Diverticulosis. 16.Anemia. 17.Prostate cancer. 18.Osteoarthritis, multiple sites. 19.Chronic anticoagulation therapy. 20.Insomnia. 21.Anxiety. Plan: We will admit the patient to hospital for further evaluation and management of this problem. The patient is appropriate for inpatient and is expected to spend 2 midnights in hospital. We will c damasoinue home medications per order. The patient was taking Eliquis 2.5 mg 2 times a day, which was c ontinued, but after getting this elevated cardiac enzyme level, I did consult indexer, Dr. Beryl lopez and communicated details with him and we will right now discontinue Eliquis and start him on Loven ox. Meanwhile, continue other current medical management, continue IV Lasix for congestive heart kemi lure problem and the patient still has lot of stool present throughout his colon as noted on the CAT scan. This could definitely cause or contribute to his abdominal pain problem that he is having and I did explain all those details to the patient and family who is the patient's granddaughter who was at the bedside and she is the one who brought him to my office as well. Order was written to treat c onstipation with milk of magnesia, Dulcolax rectal suppository, and Fleet enema and we will see how rich richardson responds to that. Morphine was ordered from emergency room, which we will continue right now, but that will not be the best thing to continue on ongoing basis as I explained it to the patient and morena anders. It will be okay for temporary use for his comfort at this point. Details were discussed with c ardiologist as well and I will have more communication with the patient's family tomorrow. We will c damasoinue his antihypertensive medication at home. He is not taking any cholesterol medication, so we will get a fasting lipid profile tomorrow and then start him on statin therapy, which will be rosuvas tatin 20 mg daily at bedtime. Continue his medications for gastroesophageal reflux disease. We star nikki him on Seroquel 50 mg daily at bedtime just 3 days ago when I saw him at office and we will continue that. I will see him tomorrow for followup. Overall, prognos is is guarded. RUY/MODL Voice ID: [id number]
[2021-11-19] MEDS ORDERED: IPRATROPIUM BROM 0.5MG/2.5ML NEB PRN (19:00)
[2021-11-19] MEDS ORDERED: ALBUTEROL 2.5 MG/3 ML NEB SOL NEB PRN (19:00)
[2021-11-19 19:54] LABS: Urine Appearance Clear (Clear); Urine Bilirubin Negative (Negative); Urine Blood Negative (Negative); Urine Glucose Negative (Negative); Urine Protein Negative (Negative); Urine Specific Gravity 1.015 (1.005-1.030); Urine Urobilinogen 0.2 mg/dL (0.2-1.0); Urine pH 7.5 (5.0-7.0)
[2021-11-19 20:05] LABS: Urine Color COLORLESS (Yellow); Urine Microscopic Reflex ORDER UMIC
[2021-11-19 20:09] LABS: Urine Bacteria <20 /HPF (NONE SEEN); Urine RBC <5 /HPF (NONE SEEN)
--- NOTE | 2021-11-19 20:25 | PN ---
Date of Progress Note: 11/19/2021 Subjective: After I saw the patient and had a long discussion with the patient's granddaughter, the patient's son who has medical power of claims attorney, he came over to the hospital and I did talk to him o n the phone and explained all the details to him as well just like I explained details with the adalberto butler's granddaughter and at that time, he informed me that he has talked to all his siblings which is 5 of 10 and he also informed me that about 2 weeks prior to this hospital admission, he had talked to the patient and at that time the patient informed him about not to do any heroic measures and to keep him comfortable and on basis of his discussion with the patient as well as all the siblings, he requ ested do not resuscitate order to be in place. This was sometime yesterday afternoon. During later part of the day which is yesterday evening, nurse contacted me and informed me that now family is hav ing dispute about this DNR order and they do not have agreement and they would like to revoke the dec ision for DNR and the patient also wanted full code. So with that in mind, DNR order was removed and full code order was placed as of yesterday evening. This morning when I saw the patient, he was sit ting in chair. His granddaughter was present in the room and the patient did confirm that he wanted everything done. He was on nasal cannula oxygen 2 L/minute. Denies any complaints overall. Objective: Vital Signs: Reviewed. HEENT: Unremarkable. Lungs: Clear to auscultation. Heart: Sounds normal. Abdomen: Soft. Bowel sounds normal. No guarding, rigidity, tenderness, distention. Extremities: No leg edema. Laboratory Data: Sodium 134, potassium 3.7, chloride 98, bicarb 30, BUN 33, creatinine 1.40, glucose 93, magnesium 2.4. Impression: 1.Non-ST segment elevation myocardial infarction. 2.Peripheral vascular disease. 3.Congestive heart failure. 4.Coronary artery disease. 5.Frontal lobe dementia. 6.Respiratory failure with hypoxia. DICTATION ENDS HERE. RUY/MODL Voice ID: [id number] Report ID: [id number]
[2021-11-19] MEDS: ROSUVASTATIN 10 MG TAB PO SCH (20:42)
[2021-11-19] MEDS: QUETIAPINE 25 MG TAB PO SCH (20:42)
--- NOTE | 2021-11-19 23:16 | PN ---
Date of Progress Note: 11/19/2021 Plan: We will go ahead and continue current medication, which is diuretic therapy. Continue current antihypertensive medication. If systolic blood pressure more than 150, then we will use amlodipine per order. We will go ahead and continue current anticoagulation therapy as of this morning. I have discontinued Lovenox and we will put him back on his Eliquis 2.5 mg 2 times a day. Social Service c onsultation was requested for the patient to get arrangements for home oxygen 2 L/min nasal cannula, and today, we received urine culture results back and urine culture grew Enterococcus, but urinalysis was normal, so this is not considered a true infection and this is likely contamination. I have ord ered another urinalysis and urine culture for that reason. Arterial Doppler was done today, results reviewed. The patient has bilateral peripheral vascular disease, and obviously, he will need to foll ow up with the county extension agent for this. Depending on his condition on an elective outpatient basis, ca rdiologist will recommend cardiac cath, but it all depends on overall his condition and status. For peripheral vascular disease, no further intervention needs to be done at this point. We will continu e statin therapy per order. Repeat urine specimen was ordered to be collected using Speci-Cath and calvin wilkinson informed me that the patient has phimosis, so she was advised to clean the patient's private are a very well and then try to collect a clean specimen using Speci-Cath. RUY/MODL Voice ID: [id number] Report ID: [id number]
[2021-11-20 05:55] LABS: Absolute Lymphocytes (CBC) 0.9 K/uL (0.7-4.9); Hematocrit 30.7 % (39.6-49.0); Lymphocytes % 12.6 % (15.3-44.8); MPV 7.7 fL (7.6-11.3); RBC Red Blood Cell Count 3.75 M/uL (4.33-5.43)
[2021-11-20 06:09] LABS: Magnesium 2.4 mg/dL (1.8-2.4); Potassium 3.4 mmol/L (3.5-5.1)
[2021-11-20] MEDS ORDERED: AMLODIPINE 5 MG TAB PO SCH (07:00)
[2021-11-20] MEDS: DOCUSATE NA/SENNA CONC 1 TAB PO SCH (08:22)
[2021-11-20] MEDS: FERROUS GLUCONATE 324 MG TAB PO SCH ×2 (08:22→17:18)
[2021-11-20] MEDS: ASPIRIN EC 81 MG TAB PO SCH (08:22)
[2021-11-20] MEDS: APIXABAN 2.5 MG TABLET PO SCH (08:23)
[2021-11-20] MEDS: TAMSULOSIN 0.4 MG SR CAP PO SCH (08:23)
[2021-11-20] MEDS: LORATADINE 10 MG TAB PO SCH (08:23)
[2021-11-20] MEDS: FAMOTIDINE 20 MG TAB PO SCH (08:24)
[2021-11-20] MEDS: DULERA 200/5 (MOMETASONE/FORMOTEROL) INHALER IH SCH (08:25)
[2021-11-20] MEDS ORDERED: POTASSIUM CL SA 10 MEQ TAB PO SCH (09:00)
[2021-11-20] MEDS ORDERED: FUROSEMIDE 40 MG TABLET PO SCH (09:00)
[2021-11-20] MEDS: HYDROCODONE/APAP 5/325 MG TAB PO PRN ×2 (10:25→17:18)
--- NOTE | 2021-11-20 10:29 | ECHO ---
HEIGHT: 5 ft 4 in WEIGHT: 138 lb 1.6 oz DATE OF STUDY: 11/19/[address]: Arron Flanagan MD 2-DIMENSIONAL: YES M.MODE: YES DOPPLER: YES COLOR FLOW: YES TDS: PORTABLE: YES DEFINITY: BUBBLE STUDY: DIAGNOSIS: CONGESTIVE HEART FAILURE, NON ST ELEVATION MYOCARDIAL INFARCTION CARDIAC HISTORY: CATHERIZATION: YES SURGERY: YES PROSTHETIC VALVE: YES PACEMAKER: NO MEASUREMENTS (cm) DIASTOLIC (NORMALS) SYSTOLIC (NORMALS) IVSd 1.2 (0.6-1.2) LA Diam 3.0 (1.9-4.0) LVEF 50% LVIDd 4.4 (3.5-5.7) LVIDs 3.3 (2.0-3.5) %FS 25% LVPWd 1.1 (0.6-1.2) Ao Diam 1.9 (2.0-3.7) 2 DIMENSIONAL ASSESSMENT: RIGHT ATRIUM: NORMAL LEFT ATRIUM: NORMAL RIGHT VENTRICLE: NORMAL LEFT VENTRICLE: NORMAL TRICUSPID VALVE: NORMAL MITRAL VALVE: MITRAL ANNULAR CALCIFICATION PULMONIC VALVE: NORMAL AORTIC VALVE: SCLEROSIS PERICARDIAL EFFUSION: NONE AORTIC ROOT: NORMAL LEFT VENTRICULAR WALL MOTION: NORMAL DOPPLER/COLOR FLOW: NORMAL COMMENTS: NORMAL BIOPROSTHETIC AORTIC VALVE. EJECTION FRACTION 50%. MITRAL ANNULAR CALCIFICATION. MILD TRICUSPID REGURGITATION. TECHNOLOGIST: LATISHA CALIX
--- NOTE | 2021-11-20 11:21 | RAD REPORT ---
EXAM DESCRIPTION: RAD - Chest Pa And Lat (2 Views) - 11/20/2021 10:58 am CLINICAL HISTORY: CHF COMPARISON: Chest Pa And Lat (2 Views) dated 11/18/2021; Chest Single View dated 11/16/2021; Chest Sin gle View dated 11/02/2021; Chest Single View dated 10/30/2021 FINDINGS: Lines: None. Lungs: No evidence of edema or pneumonia. Pleural: No significant pleural effusions or pneumothorax. Scarring in the right mid lung. Cardiac: The heart size is within normal limits. Bones: No acute fractures. Sternotomy. Other: IMPRESSION: No acute cardiopulmonary disease. Specifically, no evidence of edema.
[2021-11-20 17:50] VITALS: BP 170/75; TEMP 97.7
--- NOTE | 2021-11-21 08:54 | DS ---
Date of Discharge: 11/20/2021 Disposition: Discharged to go home with hospice care. Advanced Directives: Do not resuscitate. Physical Examination: HEENT: Unremarkable. Lungs: Clear to auscultation. Heart: Heart sounds normal. Abdomen: Soft, bowel sounds normal. No guarding, rigidity, tenderness, or distention. Extremities: No leg edema. Laboratory Data: Upon admission; white count 8.4, hemoglobin 9.9, platelets 223. Today; white count 7, hemoglobin 10.2, platelets 240. Today chemistry; sodium 135, potassium 3.4, chloride 101, bicarb 28, BUN 25, creatinine 1.43, glucose 132, magnesium 2.4. His troponin level on 11/17/2021 was 10,08 5 and upon admission, troponin was 78. Ferritin level was low at 14. Arterial Doppler of lower extr emity shows bilateral peripheral vascular disease. Discharge Medications/instructions: The patient to be admitted to hospice care and [facility] d irector to take over care. Medications: Eliquis 2.5 mg 2 times a day, aspirin 81 mg daily, Seroquel 50 mg at bedtime, docusate sodium 100 mg 2 times a day, famotidine 20 mg 2 times a day, Breo Ellipta inhaler 1 puff daily, furos emide 40 mg 2 times a day, Claritin 10 mg daily, MiraLax powder 17 g powder daily mixed with 8-ounce water, tamsulosin 0.4 mg daily, carvedilol 3.125 mg 2 times a day. Hospital Course: This is an 89-year-old pleasant male patient, admitted to the hospital with altered mental status and abdominal pain. Please see dictated H and P for more information. The patient wa s admitted to the hospital with non-STEMI and acute exacerbation of chronic diastolic congestive hear t failure. Please see dictated H and P for more information. Cardiology consultation was requested. He was given IV Lasix and he was also given Lovenox. His other home medications were continued. I did have a long discussion with the patient's granddaughter and the patient and this was over the we ekend about multiple comorbidities including poor prognosis and the patient has been in and out of em ergency room almost every 2-3 weeks this year and multiple hospital admissions as well within last w months. He had myocardial infarction in April of last year, but no intervention was done and th is time again with the current acute medical problems, we did not pursue any cardiac intervention, bu t associate professor of biology recommended elective intervention depending on patient's condition and these details w ere discussed with the patient and family. Over the weekend, initially patient's son, who has medica l power of civil litigation attorney, decided to have DNR order in place and agreed to take him home on hospice care a nd he also had informed me that he had discussion with the patient about 2 weeks prior to this hospit al admission and that is what the patient wanted was do not resuscitate, so this order was placed in the chart, but later that particular evening order was canceled because one of the patient's son did not agree with that and the patient ended up making decision to revoke DNR and wanted everything done . This morning, when I visited the patient, the patient's granddaughter and caregiver were present i n the room and that time the patient's granddaughter informed me that the patient would like to talk to me about hospice team and DNR order to be in place again and I did explain to the patient about al l his chronic medical problems and poor prognosis and the patient seems to understand details as I dunn ve explained it to him and he asked appropriate questions and informed me that he wants to go home wi hospice care and he does not want any CPR defibrillation or ventilator support in the event of car diopulmonary arrest, and when I asked him about the son, who had objected, he informed me that he randa l deal with him, when he goes home he will communicate with him, but as far as his decision is concer tyler, he wants to go home with hospice care, stay comfortable, and he wants DNR order in place. The rene hightower's granddaughter was present in the room during this entire discussion. Nurse also went in the room and verified all these decisions made by patient today. Subsequently, Social Service was consu lted and requested to make arrangements for hospice care and DNR order was written in the chart and a fter all the arrangements completed, we discharged him to go home today with hospice care. Final Diagnoses: 1.Txx-[id number] myocardial infarction. 2.Coronary artery disease. 3.Congestive heart failure, chronic, diastolic, with acute exacerbation. 4.Iron-deficiency anemia. 5.Hypokalemia. 6.Diverticulosis. 7.Constipation. 8.Frontal lobe dementia. 9.Obstructive sleep apnea. 10.Chronic obstructive pulmonary disease. 11.Chronic respiratory failure with hypoxia. 12.Hypertension. 13.Hyperlipidemia. 14.Aortic atherosclerosis. 15.Peripheral vascular disease. 16.Gastroesophageal reflux disease. 17.Prostate cancer. 18.Osteoarthritis, multiple sites. 19.Chronic anticoagulation therapy. 20.Insomnia. 21.Anxiety. RUY/MODL Voice ID: [id number] Report ID: [id number]
--- NOTE | 2021-11-22 06:04 | PN ---
Date of Progress Note: 11/19/2021 Mr. Castaneda has been followed for congestive heart failure, elevated troponin. He has a history of CA BG and aortic valve replacement. There are questions regarding his code status and possibly transfer red to hospice care. Echocardiogram showed bioprosthetic aortic valve to be functioning normally. H e had some mitral annular calcification. Ejection fraction was 50%. The patient is in appropriate t herapy, I do not think he is a candidate for any coronary intervention. At this point, I will contin ue his medical regimen as is. I will discuss the case further with Dr. Flanagan. ALETA/RODOLFO Voice ID: [id number] Report ID: [id number]
== END 2021-11-20 19:50 | disposition hospice, home (50) | DRG 280 ==
LOC: ER 11:36 → ERHOLD 16:29 → 2ND 21:23
PROVIDERS: ADMIT Internal Medicine; ATTEND Internal Medicine
DX: I21.4 Non-ST elevation (NSTEMI) myocardial infarction (principal); I50.33 Acute on chronic diastolic (congestive) heart failure; J96.11 Chronic respiratory failure with hypoxia; N17.9 Acute kidney failure, unspecified; I11.0 Hypertensive heart disease with heart failure; D50.9 Iron deficiency anemia, unspecified; E87.6 Hypokalemia; K57.90 Diverticulosis of intestine, part unspecified, without perforation or abscess without bleeding; G31.09 Other frontotemporal neurocognitive disorder; F02.80 Dementia in other diseases classified elsewhere, unspecified severity, without behavioral disturbance, psychotic disturbance, mood disturbance, and anxiety; G47.33 Obstructive sleep apnea (adult) (pediatric); J44.9 Chronic obstructive pulmonary disease, unspecified; E78.5 Hyperlipidemia, unspecified; I70.0 Atherosclerosis of aorta; I73.9 Peripheral vascular disease, unspecified; I25.10 Atherosclerotic heart disease of native coronary artery without angina pectoris; K21.9 Gastro-esophageal reflux disease without esophagitis; M15.9 Polyosteoarthritis, unspecified; G47.00 Insomnia, unspecified; F41.9 Anxiety disorder, unspecified; K59.00 Constipation, unspecified; I48.91 Unspecified atrial fibrillation; Z95.5 Presence of coronary angioplasty implant and graft; Z95.1 Presence of aortocoronary bypass graft; Z95.2 Presence of prosthetic heart valve; Z86.73 Personal history of transient ischemic attack (TIA), and cerebral infarction without residual deficits; Z66 Do not resuscitate; Z79.01 Long term (current) use of anticoagulants; Z85.46 Personal history of malignant neoplasm of prostate; Z20.822 Contact with and (suspected) exposure to COVID-19
CPT/HCPCS: 36415; 70450; 71045; 71046; 71260; 74177; 80048; 80053; 80061; 81003; 81015; 82607; 82728; 82746; 82805; 83540; 83605; 83735; 83880; 84153; 84466; 84484; 85025; 85610; 85730; 87040; 87077; 87086; 87088; 87186; 87804; 93005; 93306; 93925; 94660; 94760; 96374; 96375; 99284; J1200; J1650; J1940; J2270; J2405; J3535; Q9967; U0003